=== PATIENT | male | born 1960 | race Caucasian/White ===

== ENCOUNTER 2016-06-16 04:48 | Observation (INO) | payer MEDICAID, SELFPAY ==
[~2016-06-16] VITALS: Ht 180.3 cm; Wt 92.1 kg
[~2016-06-16 04:48] MED LIST: /TAMS4CA PO; ACET-700 PO; ACET50TA PO; ADV250INH INH; ADV500INH INH; ALBU17IN2 INH; ALBU2TA PO; ANBEEL TOP; ASPI325T PO; ASPI32ECTA PO; ASPI81TA PO; ASPI81TA85 PO; ATOR1TAB19 PO; BACT800T5 PO; CARA1TAB2 PO; CELE20TA PO; CELE50CA PO; CLEO150C PO; CLEO300C2 PO; CYMB1CAP4 PO; CYMB60CA3 PO; DOCU100C PO; DOXY150C PO; DULO1CAP3 PO; EUCECRE2 EX; FLOM5CAP PO; HARVONI PO; HUMA100I SC; INSUDET SC; INSUH10VL SC; INSUHUMDS SC; INSULADS SC; INSULANT SC; LEVO500T PO; LIPI10TA PO; LIPI20TA PO; LISI10TA4 PO; LISI5TAB PO; LYRI225C PO; LYRI75CA PO; MECL25CH PO; MUPI2OI TOP; NEUR800T PO; NORCOTAB PO; OMEP20CA3 PO; OXYC20TA21 PO; PRIL20CA PO; PROA1AER IN; PROA1AER INH; PROT1TAB2 PO; PROTPAK PO; PSEU60TA PO; STOO100C PO; TAMS0.4C2 PO; TRAZ50TA4 PO; TRAZO50TA PO; VITA100041 PO; VITA100066 PO; VOLT1GEL24 TD; ZEST10TA4 PO; ZOFR20TA PO; ZOFR4TAB3 PO; prilosec PO
[2016-06-16 05:18] LABS: MEAN CORPUSCULAR HEMOGLOBIN 30.3 pg (27.0-33.0); MEAN CORPUSCULAR HGB CONC 33.9 g/dl (32.0-36.5); MEAN CORPUSCULAR VOLUME 89.1 fl (80.0-96.0); RED CELL DISTRIBUTION WIDTH 13.6 % (11.5-14.5)
[2016-06-16] MEDS ORDERED: MORPHINE 10 MG/ML 1ML VIAL As Ordered ONE (05:19)
[2016-06-16] MEDS ORDERED: ONDANSETRON 4MG/2ML VIAL (J2405) As Ordered ONE (05:28)
[2016-06-16 05:35] LABS: AMPHETAMINES LEVEL URINE NEGATIVE (NEGATIVE); BENZODIAZEPINES URINE NEGATIVE (NEGATIVE); COCAINE METABOLITE URINE NEGATIVE (NEGATIVE); CONTROL LINE INT CTR LINE PRESENT; METHADONE URINE NEGATIVE (NEGATIVE); OPIATES URINE NEGATIVE (NEGATIVE); TRICYCLIC ANTIDEPRESS URINE NEGATIVE (NEGATIVE)
[2016-06-16 05:47] LABS: ALBUMIN 3.9 GM/DL (3.2-5.2); ALBUMIN/GLOBULIN RATIO 1.11 (1.00-1.93); ALKALINE PHOSPHATASE 92 U/L (45-117); ALT/SGPT 35 U/L (12-78); ANION GAP 11 MEQ/L (8-16); AST/SGOT 19 U/L (15-37); BILIRUBIN,DIRECT 0.2 MG/DL (0.0-0.2); BILIRUBIN,TOTAL 0.3 MG/DL (0.2-1.0); BLOOD UREA NITROGEN 9 MG/DL (7-18); CALCIUM LEVEL 8.5 MG/DL (8.5-10.1); CARBON DIOXIDE LEVEL 25 MEQ/L (21-32); CHLORIDE LEVEL 107 MEQ/L (98-107); CREATININE FOR GFR 1.03 MG/DL (0.70-1.30); GLOMERULAR FILTRATION RATE > 60.0 (>56); GLUCOSE, FASTING 243 MG/DL (70-105); POTASSIUM SERUM 4.2 MEQ/L (3.5-5.1); SODIUM LEVEL 143 MEQ/L (136-145); TOTAL PROTEIN 7.4 GM/DL (6.4-8.2)
[2016-06-16] MEDS ORDERED: HALOPERIDOL 5 MG/ML VIAL (J1630) As Ordered ONE ×2 (06:25→06:48)
[2016-06-16] MEDS ORDERED: diphenhydrAMINE INJ 50MG/ML VIAL (J1200) As Ordered ONE ×2 (06:25→06:48)
[2016-06-16] MEDS ORDERED: ASPI1TAB PO (08:40)
[2016-06-16] MEDS ORDERED: ATOR1TAB19 PO (08:40)
[2016-06-16] MEDS ORDERED: TRAZ25TA PO (08:41)
[2016-06-16] MEDS ORDERED: INSUHUMDS SC (08:41)
[2016-06-16] MEDS ORDERED: OMEP20CA3 PO (08:42)
[2016-06-16] MEDS ORDERED: LANTINJ4 SC (08:44)
[2016-06-16] MEDS ORDERED: NS 1,000 ML IV SCH (09:07)
--- NOTE | 2016-06-16 09:37 | REP ---
Clinical: Altered mental status . Comparison: 11/13/2014 . Findings: The ventricles, sulci, and cisterns are normal in position and appearance. Garsia-white differentiation is maintained. 5 mm chronic right thalamic lacunar infarct is again identified. No acute intracranial hemorrhage, mass/mass effect, pathology or trauma/injury. No evidence for acute infarction. No extra-axial fluid collection. Calvarium is intact. Paranasal sinuses and mastoid air cells are clear. Impression: No evidence for acute intracranial pathology or trauma/injury. Signed by Reji Thornton MD 06/16/2016 09:29 A
[2016-06-16 09:49] LABS: VENOUS BASE EXCESS -4.5 (-2.0-2.0); VENOUS O2 SATURATION 98.6 % (60.0-80.0); VENOUS PARTIAL PRESSURE CO2 45.6 mmHg (38.0-50.0); VENOUS PARTIAL PRESSURE O2 142.8 mmHg (30.0-50.0); VENOUS STANDARD HCO3 20.8 MEQ/L; VENOUS TOTAL CO2 23.3 MEQ/L (24.0-28.0)
[2016-06-16 09:55] LABS: INR 1.09
[2016-06-16 10:00] VITALS: BP 118/61
--- NOTE | 2016-06-16 10:11 | ECGEPIP ---
Stationary ECG Study [facility] - ED Test Date: 2016-06-16 Pat Name: JUANA ROMEO Department: Room: - Gender: M Improvement Advisor: ottoniel : 1960 Requested By: DANI MCGARRY Order Number: [id number] Reading MD: Ina Shirley Measurements Intervals [place] Rate: 97 P: -5 MD: 175 QRS: -36 QRSD: 95 T: 42 QT: 338 QTc: 431 Interpretive Statements SINUS RHYTHM INFERIOR MYOCARDIAL INFARCTION, PROBABLY OLD NSTTW ABNORMALITY Electronically Signed On 06-16-2016 10:11:49 EST by Ina Shirley
--- NOTE | 2016-06-16 11:37 | EDDOCDS ---
Physician Documentation [facility] Name: German Diaz Age: 55 yrs Sex: Male : 1960 Arrival Date: 06/16/2016 Time: 04:48 Bed Admit Hold Private MD: Disposition: 06/16/16 08:49 Hospitalization ordered by Shine Joya for Inpatient Admission. Preliminary diagnosis are Suicide attempt, Poisoning by other antidepressants, intentional self-harm. - [facility] - Status is Inpatient Admission. ml6 - Condition is Stable. - Problem is new. - Symptoms have improved. Historical: - Allergies: Versed (hallucinations); - Home Meds: 1. Carafate 1 gram Oral tab 4 times per day 2. omeprazole 20 mg Oral cpDR 1 cap once daily 3. citalopram 20 mg Oral tab 1 tab once daily 4. Flomax 0.4 mg Oral cp24 1 cap once daily 5. Vitamin D Oral 1,000 unit daily 6. atorvastatin 10 mg oral tab 1 tab once daily 7. aspirin 81 mg Oral chew 8. lisinopril 10 mg Oral tab 1 tab once daily 9. Humalog 100 unit/mL Sub-Q crtg 100 unit/mL sliding scale before meals 10. Lantus 100 unit/mL Sub-Q soln 85 units twice a day 11. Lyrica 225mg Oral 2 times per day 12. Zofran (as hydrochloride) 4 mg Oral tab every 6 hours 13. OxyContin 20 mg Oral Tb12 1 tab every 12 hours - PMHx: Chronic Pain; Depression; Diabetes - IDDM: controlled; Hepatitis C; HTN; - PSHx: colonscopy; endocscopy; - Social history: Smoking status: unknown if patient ever smoked tobacco. No barriers to communication noted, The patient speaks fluent Latvian. - Family history: Not pertinent. - : The pt / caregiver states he / she is not on anticoagulants. Home medication list is obtained from family members. - Exposure Risk Screening:: None identified. Vital Signs: 06/16 04:49 BP 161 / 115 (auto/); af2 04:51 BP 161 / 115; Pulse 120; Resp 20; Pulse Ox 96% on R/A; Weight 88.45 kg / 195 lbs (R); emilia Height 5 ft. 11 in. (180.34 cm) (R); 04:51 Pulse 120 MON; Pulse Ox 96% ; af2 05:15 BP 105 / 74 (auto/); af2 05:15 Pulse 101 MON; Pulse Ox 97% ; af2 05:30 BP 112 / 77 (auto/); af2 05:31 Pulse 100 MON; Resp 18 S; Pulse Ox 98% on R/A; af2 05:41 Pulse 99 MON; Pulse Ox 96% ; af2 05:45 BP 141 / 86 (auto/); af2 06:00 BP 165 / 90 (auto/); af2 06:01 Pulse 116 MON; Resp 18 S; Pulse Ox 96% on R/A; af2 06:15 BP 144 / 95 (auto/); af2 06:15 Pulse 103 MON; Pulse Ox 97% ; af2 06:30 BP 131 / 78 (auto/); af2 06:31 Pulse 100 MON; Resp 20 S; Pulse Ox 96% on R/A; af2 07:03 BP 128 / 83 (auto/); af2 07:04 Pulse 101 MON; Resp 20 S; Temp 97.7(T); Pulse Ox 95% on R/A; af2 07:18 BP 112 / 64 (auto/); ml6 07:18 Pulse 103 MON; ml6 07:33 BP 103 / 58 (auto/); ml6 07:33 Pulse 95 MON; Resp 16; Pulse Ox 98% on R/A; Pain 0/10; ml6 07:48 BP 74 / 52 (auto/); ml6 07:48 Pulse 87 MON; Resp 16; Pulse Ox 76% on R/A; ml6 07:49 BP 74 / 50 (auto/); ml6 07:49 Pulse 87 MON; Resp 18; Pulse Ox 98% on 4 lpm NC; ml6 07:50 BP 78 / 53 (auto/); ml6 07:50 Pulse 86 MON; Resp 16; Pulse Ox 98% on 4 lpm NC; ml6 07:56 BP 74 / 54 (auto/); ml6 07:56 Pulse 88 MON; Resp 18; Pulse Ox 96% on 4 lpm NC; Pain 0/10; ml6 08:00 BP 112 / 58 (auto/); ml6 08:00 Pulse 90 MON; Resp 18; Pulse Ox 99% on 4 lpm NC; Pain 0/10; ml6 08:03 BP 106 / 57 (auto/); ml6 08:03 Pulse 92 MON; Resp 18; Pulse Ox 99% on 2 lpm NC; Pain 0/10; ml6 08:18 BP 118 / 64 (auto/); ml6 08:18 Pulse 101 MON; Resp 18; Pulse Ox 98% on 2 lpm NC; ml6 08:33 BP 118 / 65 (auto/); ml6 08:33 Pulse 103 MON; Resp 18; Pulse Ox 98% on 2 lpm NC; ml6 08:48 BP 99 / 63 (auto/); ml6 08:48 Pulse 97 MON; Resp 16; Temp 97.6(T); Pulse Ox 98% on 2 lpm NC; Pain 0/10; ml6 09:03 BP 98 / 61 (auto/); ml6 09:03 Pulse 93 MON; Resp 16; Pulse Ox 96% on 4 lpm NC; Pain 0/10; ml6 09:38 BP 114 / 63 (auto/); ml6 09:38 Pulse 90 MON; Resp 16; Pulse Ox 97% on 4 lpm NC; ml6 09:47 BP 118 / 61 (auto/); ml6 09:47 Pulse 93 MON; Resp 16; Pulse Ox 98% on 4 lpm NC; ml6 10:02 BP 92 / 58 (auto/); ml6 10:02 Pulse 97 MON; Resp 16; Pulse Ox 97% on 4 lpm NC; ml6 10:18 BP 97 / 64 (auto/); ml6 10:18 Pulse 98 MON; Resp 18; Pulse Ox 98% on 4 lpm NC; Pain 0/10; ml6 10:32 BP 107 / 70 (auto/); ml6 10:32 Pulse 91 MON; Resp 18; Temp 98.4(O); Pulse Ox 98% on 4 lpm NC; Pain 0/10; ml6 10:47 BP 125 / 69 (auto/); ml6 10:47 Pulse 92 MON; Resp 18; Pulse Ox 97% on 4 lpm NC; Pain 0/10; ml6 11:02 BP 156 / 67 (auto/); ml6 11:02 Pulse 88 MON; Resp 16; Pulse Ox 98% on 4 lpm NC; Pain 0/10; ml6 11:18 BP 135 / 88 (auto/); ml6 11:18 Pulse 90 MON; Resp 18; Pulse Ox 98% on 4 lpm NC; ml6 11:32 BP 134 / 70 (auto/); ml6 11:32 Pulse 107 MON; Resp 18; Temp 98.3(O); Pulse Ox 97% on 4 lpm NC; Pain 0/10; ml6 04:51 Body Mass Index 27.20 (88.45 kg, 180.34 cm) emilia MDM: 05:00 Consult PFS/PSA/Court Bailiff ordered. cs11 05:00 Consult PFS/PSA/Court Bailiff: Patient's case requires discussion with on-call cs11 Psychiatrist ordered. 05:00 PSA/PFS to call Nursing Outdoor Studies Director, to enter patient data on [place] Safe Act if patient cs11 involuntarily admitted or transferred for SI or HI ordered. 05:00 Territory Account Representative/Pulse Ox/q 15 min VS ordered. cs11 05:00 Confirm accurate psychiatric medication list and times of last dosage ordered. cs11 05:00 Detain Pt Until Medically/PFS Cleared ordered. cs11 05:00 IV Saline Lock ordered. cs11 05:01 NS 0.9% 1000 ml IV at bolus once ordered. cs11 05:01 Acetaminophen Level Ordered. EDMS 05:01 Basic Metabolic Profile Ordered. EDMS 05:01 Complete Blood Count Ordered. EDMS 05:01 Drug Eval Toxicology ED Only Ordered. EDMS 05:01 Ethyl Alcohol (ethanol) Ordered. EDMS 05:01 Liver Profile Ordered. EDMS 05:01 Salicylate Level Ordered. EDMS 05:01 Thyroid Stimulating Hormone Ordered. EDMS 05:02 ECG WITH READING ER PHYS+CARDIAG ordered. EDMS 05:17 morphine 5 mg IVP once ordered. cs11 05:22 Ondansetron 4 mg IVP once ordered. cs11 05:39 Complete Blood Count Reviewed. cs11 05:39 Drug Eval Toxicology ED Only Reviewed. cs11 05:49 Acetaminophen Level Reviewed. cs11 05:49 Basic Metabolic Profile Reviewed. cs11 05:49 Ethyl Alcohol (ethanol) Reviewed. cs11 05:49 Thyroid Stimulating Hormone Reviewed. cs11 05:49 Liver Profile Reviewed. cs11 05:49 Salicylate Level Reviewed. cs11 06:22 Haloperidol 5 mg IVP once ordered. cs11 06:22 diphenhydrAMINE 25 mg IVP once ordered. cs11 06:47 Haloperidol 2.5 mg IVP once ordered. cs11 06:47 diphenhydrAMINE 25 mg IVP once ordered. cs11 06:57 Restraints, Adult: Mechanical - 4 points up to 1 hr (poses imminent danger of cs11 self-harm). May use manual restraints to secure restraint devices. Pt. monitoring per RN policy. ordered. 07:51 NS 0.9% 1000 ml IV at bolus once ordered. fg 08:11 Financial registration complete. lg 08:23 BED REQUEST+ADM ordered. EDMS 08:24 Salicylate Level: draw at 9am Ordered. EDMS 08:24 Acetaminophen Level: draw at 9am Ordered. EDMS 08:24 ETOH: Draw at 9am Ordered. EDMS 08:24 [facility] Payment Agreement was scanned into [employer] and attached to record. lg 09:02 Written Provider Order was scanned into [employer]UM[employer] and attached to record. deg 09:05 ECG WITH READING ER PHYS ordered. EDMS 09:12 Admission / Observation Status ordered. EDMS 09:12 CT Head without contrast Ordered. EDMS 09:12 NPO DIET ordered. EDMS 09:13 CARDIAC INJURY PROFILE Ordered. EDMS 09:13 CARDIAC INJURY PROFILE Ordered. EDMS 09:13 TROPONIN Ordered. EDMS 09:13 TROPONIN Ordered. EDMS 09:13 PROTHROMBIN TIME PROFILE\E\INR Ordered. EDMS 09:13 LACTIC ACID LEVEL, LACTATE Ordered. EDMS 09:13 VENOUS BLOOD GAS Ordered. EDMS 11:08 SALICYLATE LEVEL Ordered. EDMS 11:08 SALICYLATE LEVEL Ordered. EDMS 11:08 SALICYLATE LEVEL Ordered. EDMS 11:08 SALICYLATE LEVEL Ordered. EDMS 11:09 SALICYLATE LEVEL Ordered. EDMS 11:09 SALICYLATE LEVEL Ordered. EDMS 11:09 SALICYLATE LEVEL Ordered. EDMS Administered Medications: 05:07 Drug: NS 0.9% 1000 ml [sodium chloride 0.9 % intravenous solution] Route: IV; Rate: af2 bolus; Site: left wrist; 07:04 Follow up: IV Status: Completed infusion; IV Intake: 1000ml ml6 05:22 CANCELLED (Other Intervention Used): Ondansetron 8 mg IVP once cs11 05:26 Drug: morphine 5 mg [morphine 10 mg/mL injection solution (0.5 mL)] Route: IVP; Site: af2 left wrist; 05:30 Drug: Ondansetron 4 mg [ondansetron HCl 2 mg/mL intravenous solution (2 mL)] Route: af2 IVP; Site: left wrist; 06:30 Drug: Haloperidol 5 mg [haloperidol lactate 5 mg/mL injection solution (1 mL)] Route: af2 IVP; Site: left antecubital; 06:30 Drug: diphenhydrAMINE 25 mg [diphenhydramine 50 mg/mL injection solution (0.5 mL)] af2 Route: IVP; Site: right hand; 06:50 Drug: Haloperidol 2.5 mg [haloperidol lactate 5 mg/mL injection solution (0.5 mL)] af2 Route: IVP; Site: left antecubital; 06:50 Drug: diphenhydrAMINE 25 mg [diphenhydramine 50 mg/mL injection solution (0.5 mL)] af2 Route: IVP; Site: left antecubital; 07:56 Drug: NS 0.9% 1000 ml [sodium chloride 0.9 % intravenous solution] Route: IV; Rate: ml6 bolus; Site: left antecubital; 08:45 Follow up: IV Status: Completed infusion; Infusion discontinued; IV Intake: 1000ml ml6 Signatures: Dispatcher [employer] EDMS Peggy Acuña, Assistant Manager [employer] deg Lui mAbrose, Julian Olivarez lg, [place] RN ml6 Anton Kelly DO DO cs11 Brenda Perez RN RN af2 Amanda Richards MD MD fg Gosselin, Lisa, RN RN lmg The chart was reviewed and I authenticate all verbal orders and agree with the evaluation and treatment provided.Corrections: (The following items were deleted from the chart) 05:22 05:21 Ondansetron 8 mg IVP once ordered. cs11 cs11 08:25 05:53 [facility] [employer] Server Order ordered. cs11 ml6 Attachments: 08:24 [facility] Payment Agreement lg 09:02 Written Provider Order deg MTDD
--- NOTE | 2016-06-16 11:37 | EDDOCDS ---
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 Discharge criteria are identified: None. Admitted to PCU ml6 accompanied by nurse, accompanied by tech, via stretcher, on monitor, with chart. Condition: stable. Property :Personal belongings accompany Pt. 11:37 Patient left the ED. ml6 Signatures: Dispatcher [employer] EDPeggy Stiles, Tree Worker Unit deg Lui Ambrose, Reg Reg lg Julian Elise, RN RN ml6 Clau York, COOK APPRENTICE COOK APPRENTICE Ana Cristina Thompson, RN RN sls1 Dani Mcgarry, DO cs11 Ezra, Danyell, COOK APPRENTICE COOK APPRENTICE tmm1 Brenda Perez,RN RN af2 Amanda Richards MD MD fg Chris Roberts, COOK APPRENTICE COOK APPRENTICE jmv MTDD
[2016-06-16 12:00] VITALS: BP 126/68
[2016-06-16] MEDS ORDERED: HumaLOG INSULIN (NovoLOG) PER UNIT SC SCH ×2 (12:00→18:00)
[2016-06-16] MEDS: PANTOPRAZOLE 40MG INJ (PROTONIX) (C9113) IV SCH (12:50)
[2016-06-16 13:14] LABS: VENOUS BASE EXCESS -5.7 (-2.0-2.0); VENOUS O2 SATURATION 82.8 % (60.0-80.0); VENOUS PARTIAL PRESSURE CO2 39.9 mmHg (38.0-50.0); VENOUS PARTIAL PRESSURE O2 54.3 mmHg (30.0-50.0); VENOUS STANDARD HCO3 19.5 MEQ/L; VENOUS TOTAL CO2 21.2 MEQ/L (24.0-28.0)
[2016-06-16 13:22] LABS: ALBUMIN 3.2 GM/DL (3.2-5.2); ALBUMIN/GLOBULIN RATIO 1.19 (1.00-1.93); ALKALINE PHOSPHATASE 75 U/L (45-117); ALT/SGPT 25 U/L (12-78); ANION GAP 7 MEQ/L (8-16); AST/SGOT 14 U/L (15-37); BILIRUBIN,TOTAL 0.1 MG/DL (0.2-1.0); BLOOD UREA NITROGEN 8 MG/DL (7-18); CALCIUM LEVEL 7.6 MG/DL (8.5-10.1); CARBON DIOXIDE LEVEL 26 MEQ/L (21-32); CHLORIDE LEVEL 113 MEQ/L (98-107); CREATININE FOR GFR 0.78 MG/DL (0.70-1.30); GLOMERULAR FILTRATION RATE > 60.0 (>56); GLUCOSE, FASTING 165 MG/DL (70-105); POTASSIUM SERUM 4.3 MEQ/L (3.5-5.1); SODIUM LEVEL 146 MEQ/L (136-145); TOTAL PROTEIN 5.9 GM/DL (6.4-8.2)
[2016-06-16] MEDS ORDERED: DEXTROSE 50% 50 ML SYRINGE IV PRN (13:30)
[2016-06-16] MEDS ORDERED: ALBUTEROL SULFATE 2.5 MG/0.5 ML INH NEB SOLN INH PRN (13:30)
[2016-06-16] MEDS ORDERED: GLUCOSE 4 GM CHEW TABLET PO PRN (13:30)
[2016-06-16] MEDS ORDERED: GLUCAGON FOR INJ 1 MG VIAL (J1610) SC PRN (13:30)
--- NOTE | 2016-06-16 13:47 | HPEPDOC ---
Medical History and Physical Date of Admission Jun 16, 2016 at 09:07 History and Physical PRIMARY CARE PROVIDER: ATTENDING: Shine Joya MD CHIEF COMPLAINT: Overdose HISTORY OF PRESENT ILLNESS: This is a 55-year-old male past history of insulin-dependent diabetes, hypertension, CVA, diabetes neuropathy, COPD, history of MRSA, BPH, GERD, hepatitis C, prior suicide attempts who presents with suicide attempt overdose. Attempted to call the multiple times however was unsuccessful. The only history I have is what I was provided by the ED physician. Apparently the patient been drinking last night, and had suicidal ideations, taking multiple pills of multiple medications including lisinopril, tamsulosin, omeprazole, vitamin D, atorvastatin, Carafate, aspirin, citalopram. There was concern for possible developing serotonin syndrome. The patient was placed under observation. The ED physician had also stated that the called back and stated that the patient taking multiple pills of aspirin. His salicylate level was initially 10, repeat 26, and finally greater than 30. I spoke to the poison control recommended bicarbonate drip. The patient has no focal deficits. Overnight the patient was very aggressive towards staff and received 2 doses of Haldol. PAST MEDICAL HISTORY: As per HPI PAST SURGICAL HISTORY: Upper and lower teeth extraction, tonsillectomy, liver biopsy in 2007. FAMILY HISTORY: Mother with [place], father with CVA SOCIAL HISTORY: Chronic alcohol use, no illicit drug use, history of tobacco abuse. Lives with . ALLERGIES: See below REVIEW OF SYSTEMS: Unable to obtain at this time. HOME MEDICATIONS: Please see below. PHYSICAL EXAMINATION: Vitals: (see below) General: No acute distress, laying comfortably in bed. HEENT: Moist mucous membranes. Neck: No JVD or lymphadenopathy Cardiac: RRR, No murmurs Pulm: Clear to auscultation b/l. No wheezing, rhonchi Abd: NT/ND + BS Ext: No edema or cyanosis Following commands. Moving all extremities. GCS 13. No focal deficits. Pupils 2 mm equal and reactive to light. DTRs 1+ throughout. Babinski negative. LABORATORY DATA: See below. IMAGING: CT head on 06/16/2016 negative for acute pathology. MICROBIOLOGY: Please see below. ASSESSMENT/PLAN: 1. Overdose suicide attempt- appears the patient's had prior suicide attempts in the past. Apparently becomes suicidal when he is drunk. A attempted to call family however was unsuccessful. Per ED physician the patient had overdosed on lisinopril, tamsulosin, omeprazole, vitamin D, atorvastatin, Carafate, aspirin, citalopram. The patient's QTc is within normal limits. He is following commands and moving all extremities however is lethargic. The patient was very aggressive overnight and had received Haldol. We will withhold any additional Haldol as it can prolong QTC. In addition his salicylate level was elevated, now greater than 30. I have spoken to poison control, who recommended starting the patient on a bicarbonate drip. His lactic acid is 1.5. His creatinine is 1.05, and his last pH was 7.3. Have also spoken to Dr. Horvath, recommended starting half normal saline bicarbonate drip 75 mEq at 100 mL per hour. We will have serial labs as well. Activated charcoal. NG with no pills suctioned. Poison control also recommended repeating salicylate level every 2 hours until it peaks and then every 4 hours after that. We will also obtain serial EKGs. Neuro checks. One-to-one observation. Will need a psychiatric consultation once his mentation is improved. 2. Insulin-dependent diabetes- sliding-scale insulin 3. History of CVA- we'll hold home medications at this time given overdose 4. History of COPD - nebulized therapy 5. H/o Hep C 6. H/o MRSA 7. H/o GERD 8. H/o BPH 9. Low thyroid level - will need this repeated outpt. DVT prophy - SCDs. We'll need more history once we are able to contact the family and when the patient is more awake and alert. Update: Spoke with (Jennifer) who stated that the patient took 5 days worth of the above medications, as well as 40-50 tab of ASA 325mg around 4am today stating he does not want to live anymore. Salicylate level celeste to 36, Cr 0.86, K 4.0, VBG with pH 7.39, urine ph 6.0. Spoke with Dr. Fairchild, and we will change IVF to D5W Bicarb 150meq at 100cc/ hr. Cont to monitor BMP, Salicylate level, urine pH, vbg. Jennifer Diaz Home phone: [phone] Cell phone : [phone] Patient is followed by Dr. Kraus on 06/17/2016 at 7 AM. Vital Signs BP 99/63, HR 92, RR 16, O2 sat 98%, 2L NC Laboratory Data Labs 24H Laboratory Tests 2 06/16/16 04:59: Acetaminophen Level < 2.0L, Aspartate Amino Transf (AST/SGOT) 19, Alanine Aminotransferase (ALT/SGPT) 35, Alkaline Phosphatase 92, Total Bilirubin 0.3, Direct Bilirubin 0.2, Albumin 3.9, Albumin/Globulin Ratio 1.11, Anion Gap 11, Calcium Level 8.5, Ethyl Alcohol Level 0.280H, Glomerular Filtration Rate > 60.0 , Salicylates Level 10.2, Thyroid Stimulating Hormone (TSH) 0.187L, Total Protein 7.4 06/16/16 05:17: Urine Amphetamine Level NEGATIVE, Urine Benzodiazepines Screen NEGATIVE, Urine Cannabinoids NEGATIVE, Urine Cocaine Metabolite NEGATIVE, Urine Opiates Screen NEGATIVE, Urine Barbiturates, Qualitative NEGATIVE, Urine Methadone Screen NEGATIVE, Urine Tricyclic Antidepressants NEGATIVE 06/16/16 09:36: Blood Gas Bicarbonate Standard 20.8, Creatine Kinase MB 1.3, Creatine Kinase MB Relative Index 1.68, Lactic Acid Level 1.5, Total Creatine Kinase 77, Troponin I < 0.02, Venous Blood Base Excess -4.5L, Venous Blood pH 7.300L, Venous Blood Partial Pressure CO2 45.6, Venous Blood Partial Pressure O2 142.8H, Venous Blood Total Carbon Dioxide 23.3L, Venous Blood HCO3 21.9L, Venous Blood Oxygen Saturation 98.6H 06/16/16 09:37: Acetaminophen Level < 2.0L, Ethyl Alcohol Level 0.255H, Salicylates Level 26.5 06/16/16 09:41: Prothromb Time International Ratio 1.09, Prothrombin Time 14.2 06/16/16 12:00: Salicylates Level 31.7H 06/16/16 12:06: 06/16/16 12:10: CBC/BMP Laboratory Tests 06/16/16 04:59 Red Blood Count 5.23, Mean Corpuscular Volume 89.1, Mean Corpuscular Hemoglobin 30.3, Mean Corpuscular Hemoglobin Concent 33.9, Red Cell Distribution Width 13.6 Home Medications Scheduled Aspirin (Aspirin 81) 81 Mg Tab 81 MG PO DAILY Atorvastatin Calcium (Atorvastatin Calcium) 10 Mg Tab 10 MG PO QHS Cholecalciferol (Vitamin D) 1,000 Unit Tab 1,000 UNIT PO DAILY Citalopram Hydrobromide (Celexa) 20 Mg Tab 20 MG PO DAILY Insulin Glargine (Lantus Solostar) 100 Unit/Ml Inj 50 UNITS SC BID Insulin Human Lispro (Humalog) 1 Units/0.01 Ml Inj 1 DOSE SC ACHS Lisinopril (Lisinopril) 10 Mg Tab 10 MG PO DAILY Omeprazole (Omeprazole) 20 Mg Cap 20 MG PO DAILY Oxycodone HCl (Oxycontin) 20 Mg Tab 20 MG PO Q12H Pregabalin (Lyrica) 225 Mg Cap 225 MG PO BID Tamsulosin Hydrochloride (Flomax) 0.4 Mg Cap 0.4 MG PO QPM Trazodone HCl (Trazodone HCl) 50 Mg Tab 50 MG PO QHS Allergies Coded Allergies: Diazepam (Verified Allergy, Unknown, 11/01/13) TAPE (Verified Allergy, Unknown, 12/02/13) Midazolam (Verified Adverse Reaction, Intermediate, "GO CRAZY", 02/15/13) SHINE JOYA MD Jun 16, 2016 13:47
[2016-06-16 14:00] VITALS: BP 138/62
[2016-06-16] MEDS ORDERED: SODIUM BICARBONATE 75 MEQ in NS 0.45% 1,000 ML IV SCH (14:00)
[2016-06-16] MEDS: IPRATROPIUM 0.5MG/ALBUTEROL 2.5MG INH SOL UD 3ML (DUONEB)(J7620) NEB SCH ×2 (15:22→20:00)
--- NOTE | 2016-06-16 16:37 | ECGEPIP ---
Stationary ECG Study [facility] Test Date: 2016-06-16 Pat Name: JUANA ROMEO Department: Room: [place] [address] Gender: M Html Developer: YOHANA : 1960 Requested By: ECTOR DOVE Order Number: [id number] Reading MD: Honorio Cantu Measurements Intervals Lucan Rate: 97 P: 20 MA: 169 QRS: -35 QRSD: 94 T: 45 QT: 350 QTc: 445 Interpretive Statements SINUS RHYTHM POSSIBLE INFERIOR MYOCARDIAL INFARCTION, OF INDETERMINATE AGE LAST TRACING ON 06/16/2016 AT 5:25:30, NO SIGNIFICANT CHANGES Electronically Signed On 06-16-2016 16:36:37 EST by Honorio Cantu
[2016-06-16 17:38] LABS: VENOUS BASE EXCESS -1.3 (-2.0-2.0); VENOUS O2 SATURATION 85.9 % (60.0-80.0); VENOUS PARTIAL PRESSURE CO2 38.7 mmHg (38.0-50.0); VENOUS PARTIAL PRESSURE O2 51.5 mmHg (30.0-50.0); VENOUS STANDARD HCO3 23.1 MEQ/L; VENOUS TOTAL CO2 24.5 MEQ/L (24.0-28.0)
[2016-06-16 17:41] LABS: MEAN CORPUSCULAR HEMOGLOBIN 31.4 pg (27.0-33.0); MEAN CORPUSCULAR HGB CONC 34.3 g/dl (32.0-36.5); MEAN CORPUSCULAR VOLUME 91.4 fl (80.0-96.0); RED CELL DISTRIBUTION WIDTH 13.7 % (11.5-14.5); WHITE BLOOD COUNT 6.9 K/mm3 (4.0-10.0)
[2016-06-16] MEDS ORDERED: CHARCOAL ACTIVATED LIQUID 25 GM/120 ML BTL PO SCH (18:00)
[2016-06-16 18:52] LABS: ALBUMIN 3.3 GM/DL (3.2-5.2); ALBUMIN/GLOBULIN RATIO 1.14 (1.00-1.93); ALKALINE PHOSPHATASE 76 U/L (45-117); ALT/SGPT 26 U/L (12-78); ANION GAP 11 MEQ/L (8-16); AST/SGOT 16 U/L (15-37); BILIRUBIN,TOTAL 0.1 MG/DL (0.2-1.0); BLOOD UREA NITROGEN 10 MG/DL (7-18); CALCIUM LEVEL 7.6 MG/DL (8.5-10.1); CARBON DIOXIDE LEVEL 23 MEQ/L (21-32); CHLORIDE LEVEL 112 MEQ/L (98-107); CREATININE FOR GFR 0.86 MG/DL (0.70-1.30); GLOMERULAR FILTRATION RATE > 60.0 (>56); GLUCOSE, FASTING 193 MG/DL (70-105); SODIUM LEVEL 146 MEQ/L (136-145); TOTAL PROTEIN 6.2 GM/DL (6.4-8.2)
[2016-06-16 19:45] LABS: VENOUS O2 SATURATION 59.4 % (60.0-80.0); VENOUS PARTIAL PRESSURE CO2 35.8 mmHg (38.0-50.0); VENOUS PARTIAL PRESSURE O2 30.3 mmHg (30.0-50.0); VENOUS STANDARD HCO3 22.8 MEQ/L
[2016-06-16 20:10] LABS: ANION GAP 7 MEQ/L (8-16); BLOOD UREA NITROGEN 10 MG/DL (7-18); CALCIUM LEVEL 7.8 MG/DL (8.5-10.1); CARBON DIOXIDE LEVEL 26 MEQ/L (21-32); CHLORIDE LEVEL 111 MEQ/L (98-107); CREATININE FOR GFR 0.97 MG/DL (0.70-1.30); GLOMERULAR FILTRATION RATE > 60.0 (>56); GLUCOSE, FASTING 220 MG/DL (70-105); POTASSIUM SERUM 4.3 MEQ/L (3.5-5.1); SODIUM LEVEL 144 MEQ/L (136-145)
[2016-06-16 20:15] VITALS: BP 108/58
[2016-06-16] MEDS ORDERED: CALCIUM GLUCONATE 1,000 MG in D5W MINI-BAG PLUS 100 ML IV ONE (20:30)
[2016-06-16] MEDS: SODIUM BICARBONATE 150 MEQ in D5W 1,000 ML IV SCH (20:51)
--- NOTE | 2016-06-16 21:21 | REP ---
Clinical: Salicylate poisoning . Comparison: 09/30/2015 . Findings: The mediastinum and cardiac silhouette are stable and within normal limits for portable technique. The lung lezama are clear without acute consolidation, effusion, or pneumothorax. Skeletal structures are intact. Impression: Normal portable chest x-ray Signed by Reji Thornton MD 06/16/2016 09:13 P
[2016-06-16 22:07] LABS: VENOUS BASE EXCESS -0.2 (-2.0-2.0); VENOUS O2 SATURATION 74.5 % (60.0-80.0); VENOUS PARTIAL PRESSURE O2 39.7 mmHg (30.0-50.0); VENOUS STANDARD HCO3 23.8 MEQ/L; VENOUS TOTAL CO2 26.1 MEQ/L (24.0-28.0)
[2016-06-16 22:15] LABS: ANION GAP 9 MEQ/L (8-16); BLOOD UREA NITROGEN 10 MG/DL (7-18); CALCIUM LEVEL 7.9 MG/DL (8.5-10.1); CARBON DIOXIDE LEVEL 25 MEQ/L (21-32); CHLORIDE LEVEL 110 MEQ/L (98-107); CREATININE FOR GFR 0.98 MG/DL (0.70-1.30); GLOMERULAR FILTRATION RATE > 60.0 (>56); GLUCOSE, FASTING 232 MG/DL (70-105); POTASSIUM SERUM 3.9 MEQ/L (3.5-5.1); SODIUM LEVEL 144 MEQ/L (136-145)
[2016-06-16] MEDS: CHARCOAL ACTIVATED LIQUID 25 GM/120 ML BTL PO SCH (23:30)
[2016-06-16 23:37] LABS: VENOUS BASE EXCESS -0.2 (-2.0-2.0); VENOUS O2 SATURATION 87.6 % (60.0-80.0); VENOUS PARTIAL PRESSURE O2 53.2 mmHg (30.0-50.0); VENOUS STANDARD HCO3 24.1 MEQ/L; VENOUS TOTAL CO2 25.7 MEQ/L (24.0-28.0)
[2016-06-16 23:55] LABS: ANION GAP 9 MEQ/L (8-16); BLOOD UREA NITROGEN 10 MG/DL (7-18); CARBON DIOXIDE LEVEL 26 MEQ/L (21-32); CHLORIDE LEVEL 109 MEQ/L (98-107); CREATININE FOR GFR 0.94 MG/DL (0.70-1.30); GLOMERULAR FILTRATION RATE > 60.0 (>56); GLUCOSE, FASTING 202 MG/DL (70-105); POTASSIUM SERUM 3.9 MEQ/L (3.5-5.1); SODIUM LEVEL 144 MEQ/L (136-145)
[2016-06-16] MEDS: HumaLOG INSULIN (NovoLOG) PER UNIT SC SCH (23:57)
[2016-06-17] VITALS (7 sets, daily range): BP systolic 110–157; BP diastolic 61–85
[2016-06-17] MEDS: IPRATROPIUM 0.5MG/ALBUTEROL 2.5MG INH SOL UD 3ML (DUONEB)(J7620) NEB SCH ×6 (00:15→20:00)
[2016-06-17 01:58] LABS: VENOUS O2 SATURATION 70.5 % (60.0-80.0); VENOUS PARTIAL PRESSURE CO2 37.4 mmHg (38.0-50.0); VENOUS PARTIAL PRESSURE O2 34.2 mmHg (30.0-50.0); VENOUS STANDARD HCO3 24.7 MEQ/L
[2016-06-17] MEDS: CHARCOAL ACTIVATED LIQUID 25 GM/120 ML BTL PO SCH ×3 (02:00→09:25)
[2016-06-17 02:27] LABS: ANION GAP 11 MEQ/L (8-16); BLOOD UREA NITROGEN 10 MG/DL (7-18); CALCIUM LEVEL 7.7 MG/DL (8.5-10.1); CARBON DIOXIDE LEVEL 25 MEQ/L (21-32); CHLORIDE LEVEL 108 MEQ/L (98-107); GLOMERULAR FILTRATION RATE > 60.0 (>56); GLUCOSE, FASTING 244 MG/DL (70-105); POTASSIUM SERUM 3.5 MEQ/L (3.5-5.1); SODIUM LEVEL 144 MEQ/L (136-145)
[2016-06-17 03:54] LABS: VENOUS BASE EXCESS 0.6 (-2.0-2.0); VENOUS O2 SATURATION 91.8 % (60.0-80.0); VENOUS PARTIAL PRESSURE CO2 39.9 mmHg (38.0-50.0); VENOUS PARTIAL PRESSURE O2 63.5 mmHg (30.0-50.0); VENOUS STANDARD HCO3 24.9 MEQ/L; VENOUS TOTAL CO2 26.3 MEQ/L (24.0-28.0)
[2016-06-17 04:22] LABS: ANION GAP 9 MEQ/L (8-16); BLOOD UREA NITROGEN 9 MG/DL (7-18); CARBON DIOXIDE LEVEL 26 MEQ/L (21-32); CHLORIDE LEVEL 108 MEQ/L (98-107); CREATININE FOR GFR 1.17 MG/DL (0.70-1.30); GLOMERULAR FILTRATION RATE > 60.0 (>56); GLUCOSE, FASTING 218 MG/DL (70-105); POTASSIUM SERUM 3.6 MEQ/L (3.5-5.1); SODIUM LEVEL 143 MEQ/L (136-145)
[2016-06-17] MEDS: ANALGESIC BALM CRM 120 GM TOP PRN ×2 (04:54→20:37)
[2016-06-17] MEDS ORDERED: POTASSIUM CHLORIDE 10 MEQ SR TABLET PO ONE ×2 (05:00→13:30)
[2016-06-17] MEDS ORDERED: LIDOCAINE 5% (LIDODERM) PATCH TD ONE (05:00)
[2016-06-17 05:54] LABS: ANION GAP 9 MEQ/L (8-16); BLOOD UREA NITROGEN 8 MG/DL (7-18); CALCIUM LEVEL 8.2 MG/DL (8.5-10.1); CARBON DIOXIDE LEVEL 27 MEQ/L (21-32); CHLORIDE LEVEL 106 MEQ/L (98-107); CREATININE FOR GFR 1.15 MG/DL (0.70-1.30); GLOMERULAR FILTRATION RATE > 60.0 (>56); GLUCOSE, FASTING 191 MG/DL (70-105); POTASSIUM SERUM 3.4 MEQ/L (3.5-5.1); SODIUM LEVEL 142 MEQ/L (136-145)
[2016-06-17] MEDS: HumaLOG INSULIN (NovoLOG) PER UNIT SC SCH ×3 (06:29→17:22)
[2016-06-17] MEDS: SODIUM BICARBONATE 150 MEQ in D5W 1,000 ML IV SCH (07:30)
[2016-06-17] MEDS: NICOTINE 14 MG/24 HR TRANSDERMAL TD SCH (09:26)
[2016-06-17] MEDS: oxyCODONE 20 MG CR TAB PO SCH ×2 (09:26→20:36)
[2016-06-17 10:06] LABS: ANION GAP 12 MEQ/L (8-16); BLOOD UREA NITROGEN 9 MG/DL (7-18); CALCIUM LEVEL 8.3 MG/DL (8.5-10.1); CARBON DIOXIDE LEVEL 26 MEQ/L (21-32); CHLORIDE LEVEL 107 MEQ/L (98-107); CREATININE FOR GFR 1.08 MG/DL (0.70-1.30); GLOMERULAR FILTRATION RATE > 60.0 (>56); GLUCOSE, FASTING 206 MG/DL (70-105); POTASSIUM SERUM 3.4 MEQ/L (3.5-5.1); SODIUM LEVEL 145 MEQ/L (136-145)
[2016-06-17 10:11] LABS: INR 1.15
[2016-06-17] MEDS: PANTOPRAZOLE 40MG INJ (PROTONIX) (C9113) IV SCH (12:49)
--- NOTE | 2016-06-17 13:39 | IPNPDOC ---
Text Note Date of Service The patient was seen on 06/17/16 at 13:28. NOTE Subjective: Patient is a 55 year old male with a PMHx of IDDM2, HTN, CVA, Diabetic neuropathy, COPD, Hx of MRSA, BPH, GERD, Hepatitis C, Hx of prior suicidial attempts who presented to the ER with a suicidal attempt by overdose. Patient had consumed multiple pills of lisinopril, tamsulosin, omeprazole, vitamin D, atorvastatin, Carafate, aspirin, citalopram. Poison control was contacted, advised to follow salicyclate level and trend every 2 hours. Advised to start bicarbonate drip. Patient was seen and examined at the bedside. Clinically he is AAOx3, he is mainly complaining of back pain that has been a chronic issue. Objective: Vitals (See below) General: Sitting up in bed, complaining of back pain, AAOx3 HEENT: NC, AT CVS: RRR, +S1S2 Lungs: Fair air entry b/l, - W/R/R Abdomen: Soft, ND, NT, +BSx4 Extremities: +PPx4, - Edema, - Calf tenderness Assessment and plan: 1. Overdose / Suicidal attempt - - multiple episodes of suicidal attempts while he is drunk - Overdosed on lisinopril, tamsulosin, omeprazole, vitamin D, atorvastatin, Carafate, aspirin, citalopram - Cased discussed with Poison control today; advised that further salicylate levels are no longer required; if AMS has resolved and EKG has no changes than no further workup is required - Will discontinue bicarbonate drip and activated charcoal - c/w one to one observation (re: suicidal precautions) - Will consult psychiatry for evaluation and placement to inpatient mental health unit 2. IDDM2 - c/w insulin sliding scale 3. History of CVA - will restart medications tomorrow 4. History of COPD - c/w duoneb 5. History of Hep C 6. History of MRSA 7. BPH 8. GERD 9. Abnormal thyroid function test - will require outpatient follow up / repeat 10. DVT prohylaxis - c/w SCDx VS,Fishbone, I+O VS, Fishbone, I+O Laboratory Tests 06/16/16 17:31 Calcium Level 7.6 L, Aspartate Amino Transf (AST/SGOT) 16, Alanine Aminotransferase (ALT/SGPT) 26, Total Creatine Kinase 158 #, Alkaline Phosphatase 76, Total Bilirubin 0.1 L, Total Protein 6.2 L, Albumin 3.3, Red Blood Count 4.40, Mean Corpuscular Volume 91.4, Mean Corpuscular Hemoglobin 31.4 , Mean Corpuscular Hemoglobin Concent 34.3, Red Cell Distribution Width 13.7 06/16/16 19:39 Calcium Level 7.8 L 06/16/16 21:42 Calcium Level 7.9 L 06/16/16 23:26 Calcium Level 8.0 L 06/17/16 01:44 Calcium Level 7.7 L, Total Creatine Kinase 184 06/17/16 03:47 Calcium Level 8.0 L 06/17/16 05:18 Calcium Level 8.2 L 06/17/16 09:11 Calcium Level 8.3 L Vital Signs Date Time Temp Pulse Resp B/P Pulse Ox O2 Delivery O2 Flow Rate FiO2 06/17/16 09:26 20 06/17/16 08:00 96.8 71 140/82 98 Room Air 06/16/16 14:00 2.0 I&O- Last 24 Hours up to 6 AM 06/17/16 06:00 Intake Total 3370 ml Output Total 5200 ml Balance -1830 ml GAETANO PINEDA MD Jun 17, 2016 13:39
[2016-06-17 14:47] LABS: ANION GAP 10 MEQ/L (8-16); BLOOD UREA NITROGEN 8 MG/DL (7-18); CALCIUM LEVEL 8.2 MG/DL (8.5-10.1); CARBON DIOXIDE LEVEL 25 MEQ/L (21-32); CHLORIDE LEVEL 109 MEQ/L (98-107); CREATININE FOR GFR 1.24 MG/DL (0.70-1.30); GLOMERULAR FILTRATION RATE > 60.0 (>56); GLUCOSE, FASTING 283 MG/DL (70-105); POTASSIUM SERUM 3.5 MEQ/L (3.5-5.1); SODIUM LEVEL 144 MEQ/L (136-145)
[2016-06-17] MEDS ORDERED: **NOTE PATIENT COMMENT** MISC XX ONE (17:00)
[2016-06-17] MEDS ORDERED: HumaLOG INSULIN (NovoLOG) PER UNIT SC SCH (21:00)
--- NOTE | 2016-06-17 22:25 | CR ---
DATE OF CONSULTATION: 06/17/2016 REQUESTING PHYSICIAN: Dr. Shine Joya CONSULTING PHYSICIAN: Dr. Fairchild REASON FOR CONSULTATION: Management of drug overdose including salicylates. CHIEF COMPLAINT: The patient was admitted to the hospital last night with polysubstance drug overdose. HISTORY OF THE PRESENT ILLNESS: Mr. German Diaz is a 55-year-old male with a past medical history of hypertension, insulin-dependent diabetes, cerebrovascular accident, chronic obstructive pulmonary disease (COPD), multiple other comorbidities with a history of depression and previous suicide attempts. He presented to the emergency room last night with a suicidal overdose of multiple medications, which included 5 days worth of his home medications, including about 40-50 tablets of aspirin 325 mg. The patient was also drinking yesterday and the medications that he took in bulk amount included lisinopril, tamsulosin, omeprazole, vitamin D, atorvastatin, Carafate and citalopram as well. The patient was admitted yesterday through emergency room and nephrology service consult was requested because of salicylate overdose and salicylate poisoning with possible need for hemodialysis. The patient was already discussed with the night hospitalist ux consultant, and he was initially started on IV half normal saline plus 75 mEq of bicarbonate but later on, his salicylate level was going up, up to 30, so his bicarbonate fluid was changed to D5W plus 150 mEq of bicarbonate to keep his serum alkalotic and his urine alkaline. I saw the patient today (morning); he was awake, alert, oriented times three. He was not agitated. There was no shortness of breath. His labs were stable, and his salicylate level was trending down. PAST MEDICAL HISTORY: History of depression. History of suicide attempts in the past. Insulin-dependent diabetes. Hypertension. Cerebrovascular accident. Diabetic neuropathy. COPD. BPH. Hepatitis C virus infection. PAST SURGICAL HISTORY: History of dental extractions in the past. Status post tonsillectomy. Status post liver biopsy in 2007. ALLERGIES: The patient is allergic to DIAZEPAM, MIDAZOLAM and TAPE. CURRENT MEDICATIONS: The patient's current medications include: - albuterol nebulizations - He was on D5W plus 150 mEq of bicarbonate which was stopped early this morning. - He got activated charcoal yesterday. - He was also on insulin sliding scale, and the dose was tapered down to keep him slightly hyperglycemic in the setting of salicylate poisoning. - He also has a nicotine patch. - He has oxycodone as needed. - Protonix 40 mg daily - He was also given potassium chloride 40 mEq one dose. FAMILY HISTORY: No significant family history of end-stage renal disease requiring hemodialysis. There is a positive history of myocardial infarction (SD) in the father and cerebrovascular accident in the father as well. SOCIAL HISTORY: The patient reports chronic alcohol use. He denies any illicit drug abuse, but he has a history of smoking in the past. He lives with his . REVIEW OF SYSTEMS: CONSTITUTIONAL: The patient denies any fevers, weakness, chills, or rigors. EYES: He denies any recent blurry vision. ENT: He denies any ear discharge, sore throat, dysphagia, odynophagia. CARDIOVASCULAR: He denies any palpitations or chest pain. RESPIRATORY: He denies any cough, shortness of breath or wheezing. GASTROINTESTINAL: He denies any pain in abdomen, constipation or diarrhea. GENITOURINARY: He denies any dysuria or hematuria. HEMATOLOGICAL/ONCOLOGICAL: He denies any history of anemia or easy bruising tendency. SKIN: He denies any rashes or ulcers. PSYCHIATRIC: He reports a history of depression and a history of suicide attempt in the past as well. CENTRAL NERVOUS SYSTEM: He reports a history of strokes in the past. He denies any seizures in the past. MUSCULOSKELETAL: He denies any muscle aches and pains. SKIN: He denies any rashes or ulcers. All other review of systems is negative. PHYSICAL EXAMINATION: GENERAL: The patient is awake, alert, oriented times three, laying in bed, in no apparent distress. VITAL SIGNS: Temperature is 96.5 degrees Fahrenheit, blood pressure is 140/80, pulse is 74, respiratory rate of 18, saturating 95% on room air. INTAKE/OUTPUT: Urine output recorded as 3.7 liters yesterday, 2.4 liters today. HEAD AND NECK EXAM: Extraocular muscles intact. Pupils equally round and reactive to light. Neck is supple. There is no jugular venous distention (JVD). CARDIOVASCULAR: S1, S2. Regular rate. No murmur, rub or gallop. RESPIRATORY: Chest is clear to auscultation bilaterally. Bilateral equal air entry. No rales or rhonchi. ABDOMEN: Soft. Positive bowel sounds. Nontender. No ascites. No hepatosplenomegaly. EXTREMITIES: No clubbing or cyanosis. Pulses are 2+. CENTRAL NERVOUS SYSTEM: No focal neurological deficit. Power is 5/5 in all extremities. SKIN: No rashes or ulcers. PSYCHIATRIC: Normal mood and affect. LAB REVIEW: CBC showed a WBC of 6.9, hemoglobin 13.8, platelets are 107. INR is 1.15. Urinalysis showed 3+ glucose, no nitrite, pH was 6, leukocyte esterase was negative. pH was 7.41 on the ABG today (morning). BMP showed sodium 144, potassium 3.5, chloride 109, bicarbonate 25, BUN 8, creatinine 1.24. Calcium was 8.2. Salicylate level today (morning) was 20.2. IMAGING: Chest x-ray done yesterday showed normal portable chest x-ray. ASSESSMENT: A 55-year-old male with a past medical history of insulin-dependent diabetes, normal renal function, hypertension and hepatitis C, history of depression and suicide attempts in the past, this time admitted with polysubstance suicidal overdose. PLAN: 1. Polysubstance suicidal overdose including salicylates. The patient was given IV fluid hydration with IV bicarbonate yesterday. His salicylate level is trending down at this time. There is no neurological manifestations at this time. Blood glucose levels are still high. There is no acid-base disturbance. Renal function is stable. His IV bicarbonate has been stopped at this time. 2. Insulin-dependent diabetes mellitus. I lowered the insulin sliding scale coverage last night because the patient had salicylate overdose, and I wanted to permit some hyperglycemia to prevent central nervous system side effects of salicylate. I am going to adjust the insulin sliding scale again. 3. Hypokalemia. Hypokalemia was secondary to aggressive IV bicarbonate fluid with D5. The patient's potassium was already repleted today. IV fluids have been stopped. Potassium will hopefully stay stable. 4. Hypertension. Continue current dose of medications. No hypertensive medications at this time. Blood pressure is acceptable. The patient took almost 5 days worth of his medications. Continue to hold the antihypertensives at this time. 5. Depression and suicidal overdose. The patient can be transferred to inpatient psychiatric unit from a nephrology standpoint. Thank you for involving us in the care of this patient. We shall be happy to follow the patient along with you tomorrow morning. Plan of care was discussed with the hospitalist team last night and today (morning) as well.
[2016-06-18] MEDS ORDERED: SLF 3 ML SYR IV PRN (00:30)
[2016-06-18] MEDS: IPRATROPIUM 0.5MG/ALBUTEROL 2.5MG INH SOL UD 3ML (DUONEB)(J7620) NEB SCH ×4 (04:00→12:00)
[2016-06-18 04:03] VITALS: BP 164/89
[2016-06-18] MEDS: ANALGESIC BALM CRM 120 GM TOP PRN (04:40)
[2016-06-18] MEDS: SLF 3 ML SYR IV SCH ×2 (06:00→12:32)
[2016-06-18 07:30] VITALS: BP 143/78
[2016-06-18] MEDS: HumaLOG INSULIN (NovoLOG) PER UNIT SC SCH ×2 (07:30→12:31)
[2016-06-18] MEDS ORDERED: CitaloPRAM (CeleXA) 20 MG TAB PO SCH (09:00)
[2016-06-18] MEDS ORDERED: INFLUENZA QUADRIVALENT PF VACCINE 0.5ML SYRINGE/VIAL (90686) IM ONE (09:00)
[2016-06-18] MEDS ORDERED: OMEPRAZOLE 20 MG CAP PO SCH (09:00)
[2016-06-18] MEDS ORDERED: LISINOPRIL 10 MG TAB PO SCH (09:00)
[2016-06-18] MEDS ORDERED: VITAMIN D 1,000 INTERNATIONAL UNITS TABLET PO SCH (09:00)
[2016-06-18 09:02] VITALS: BP 143/78
[2016-06-18] MEDS: NICOTINE 14 MG/24 HR TRANSDERMAL TD SCH (09:02)
[2016-06-18] MEDS: oxyCODONE 20 MG CR TAB PO SCH (09:02)
[2016-06-18 09:19] LABS: INR 1.12
--- NOTE | 2016-06-18 12:37 | EDDOCDS ---
Physician Documentation [facility] Name: German Diaz Age: 55 yrs Sex: Male : 1960 Arrival Date: 06/16/2016 Time: 04:48 Bed Admit Hold Private MD: Disposition: 06/16/16 08:49 Hospitalization ordered by Shine Joya for Inpatient Admission. Preliminary diagnosis are Suicide attempt, Poisoning by other antidepressants, intentional self-harm. - [facility] - Status is Inpatient Admission. ml6 - Condition is Stable. - Problem is new. - Symptoms have improved. Historical: - Allergies: Versed (hallucinations); - Home Meds: 1. Carafate 1 gram Oral tab 4 times per day 2. omeprazole 20 mg Oral cpDR 1 cap once daily 3. citalopram 20 mg Oral tab 1 tab once daily 4. Flomax 0.4 mg Oral cp24 1 cap once daily 5. Vitamin D Oral 1,000 unit daily 6. atorvastatin 10 mg oral tab 1 tab once daily 7. aspirin 81 mg Oral chew 8. lisinopril 10 mg Oral tab 1 tab once daily 9. Humalog 100 unit/mL Sub-Q crtg 100 unit/mL sliding scale before meals 10. Lantus 100 unit/mL Sub-Q soln 85 units twice a day 11. Lyrica 225mg Oral 2 times per day 12. Zofran (as hydrochloride) 4 mg Oral tab every 6 hours 13. OxyContin 20 mg Oral Tb12 1 tab every 12 hours - PMHx: Chronic Pain; Depression; Diabetes - IDDM: controlled; Hepatitis C; HTN; - PSHx: colonscopy; endocscopy; - Social history: Smoking status: unknown if patient ever smoked tobacco. No barriers to communication noted, The patient speaks fluent Kyrgyz. - Family history: Not pertinent. - : The pt / caregiver states he / she is not on anticoagulants. Home medication list is obtained from family members. - Exposure Risk Screening:: None identified. Vital Signs: 06/16 04:49 BP 161 / 115 (auto/); af2 04:51 BP 161 / 115; Pulse 120; Resp 20; Pulse Ox 96% on R/A; Weight 88.45 kg / 195 lbs (R); emilia Height 5 ft. 11 in. (180.34 cm) (R); 04:51 Pulse 120 MON; Pulse Ox 96% ; af2 05:15 BP 105 / 74 (auto/); af2 05:15 Pulse 101 MON; Pulse Ox 97% ; af2 05:30 BP 112 / 77 (auto/); af2 05:31 Pulse 100 MON; Resp 18 S; Pulse Ox 98% on R/A; af2 05:41 Pulse 99 MON; Pulse Ox 96% ; af2 05:45 BP 141 / 86 (auto/); af2 06:00 BP 165 / 90 (auto/); af2 06:01 Pulse 116 MON; Resp 18 S; Pulse Ox 96% on R/A; af2 06:15 BP 144 / 95 (auto/); af2 06:15 Pulse 103 MON; Pulse Ox 97% ; af2 06:30 BP 131 / 78 (auto/); af2 06:31 Pulse 100 MON; Resp 20 S; Pulse Ox 96% on R/A; af2 07:03 BP 128 / 83 (auto/); af2 07:04 Pulse 101 MON; Resp 20 S; Temp 97.7(T); Pulse Ox 95% on R/A; af2 07:18 BP 112 / 64 (auto/); ml6 07:18 Pulse 103 MON; ml6 07:33 BP 103 / 58 (auto/); ml6 07:33 Pulse 95 MON; Resp 16; Pulse Ox 98% on R/A; Pain 0/10; ml6 07:48 BP 74 / 52 (auto/); ml6 07:48 Pulse 87 MON; Resp 16; Pulse Ox 76% on R/A; ml6 07:49 BP 74 / 50 (auto/); ml6 07:49 Pulse 87 MON; Resp 18; Pulse Ox 98% on 4 lpm NC; ml6 07:50 BP 78 / 53 (auto/); ml6 07:50 Pulse 86 MON; Resp 16; Pulse Ox 98% on 4 lpm NC; ml6 07:56 BP 74 / 54 (auto/); ml6 07:56 Pulse 88 MON; Resp 18; Pulse Ox 96% on 4 lpm NC; Pain 0/10; ml6 08:00 BP 112 / 58 (auto/); ml6 08:00 Pulse 90 MON; Resp 18; Pulse Ox 99% on 4 lpm NC; Pain 0/10; ml6 08:03 BP 106 / 57 (auto/); ml6 08:03 Pulse 92 MON; Resp 18; Pulse Ox 99% on 2 lpm NC; Pain 0/10; ml6 08:18 BP 118 / 64 (auto/); ml6 08:18 Pulse 101 MON; Resp 18; Pulse Ox 98% on 2 lpm NC; ml6 08:33 BP 118 / 65 (auto/); ml6 08:33 Pulse 103 MON; Resp 18; Pulse Ox 98% on 2 lpm NC; ml6 08:48 BP 99 / 63 (auto/); ml6 08:48 Pulse 97 MON; Resp 16; Temp 97.6(T); Pulse Ox 98% on 2 lpm NC; Pain 0/10; ml6 09:03 BP 98 / 61 (auto/); ml6 09:03 Pulse 93 MON; Resp 16; Pulse Ox 96% on 4 lpm NC; Pain 0/10; ml6 09:38 BP 114 / 63 (auto/); ml6 09:38 Pulse 90 MON; Resp 16; Pulse Ox 97% on 4 lpm NC; ml6 09:47 BP 118 / 61 (auto/); ml6 09:47 Pulse 93 MON; Resp 16; Pulse Ox 98% on 4 lpm NC; ml6 10:02 BP 92 / 58 (auto/); ml6 10:02 Pulse 97 MON; Resp 16; Pulse Ox 97% on 4 lpm NC; ml6 10:18 BP 97 / 64 (auto/); ml6 10:18 Pulse 98 MON; Resp 18; Pulse Ox 98% on 4 lpm NC; Pain 0/10; ml6 10:32 BP 107 / 70 (auto/); ml6 10:32 Pulse 91 MON; Resp 18; Temp 98.4(O); Pulse Ox 98% on 4 lpm NC; Pain 0/10; ml6 10:47 BP 125 / 69 (auto/); ml6 10:47 Pulse 92 MON; Resp 18; Pulse Ox 97% on 4 lpm NC; Pain 0/10; ml6 11:02 BP 156 / 67 (auto/); ml6 11:02 Pulse 88 MON; Resp 16; Pulse Ox 98% on 4 lpm NC; Pain 0/10; ml6 11:18 BP 135 / 88 (auto/); ml6 11:18 Pulse 90 MON; Resp 18; Pulse Ox 98% on 4 lpm NC; ml6 11:32 BP 134 / 70 (auto/); ml6 11:32 Pulse 107 MON; Resp 18; Temp 98.3(O); Pulse Ox 97% on 4 lpm NC; Pain 0/10; ml6 04:51 Body Mass Index 27.20 (88.45 kg, 180.34 cm) emilia MDM: 05:00 Consult PFS/PSA/Privacy Attorney ordered. cs11 05:00 Consult PFS/PSA/Privacy Attorney: Patient's case requires discussion with on-call cs11 Psychiatrist ordered. 05:00 PSA/PFS to call Nursing Leather Worker, to enter patient data on [place] Safe [place] if patient cs11 involuntarily admitted or transferred for SI or HI ordered. 05:00 Legislative Aide/Pulse Ox/q 15 min VS ordered. cs11 05:00 Confirm accurate psychiatric medication list and times of last dosage ordered. cs11 05:00 Detain Pt Until Medically/PFS Cleared ordered. cs11 05:00 IV Saline Lock ordered. cs11 05:01 NS 0.9% 1000 ml IV at bolus once ordered. cs11 05:01 Acetaminophen Level Ordered. EDMS 05:01 Basic Metabolic Profile Ordered. EDMS 05:01 Complete Blood Count Ordered. EDMS 05:01 Drug Eval Toxicology ED Only Ordered. EDMS 05:01 Ethyl Alcohol (ethanol) Ordered. EDMS 05:01 Liver Profile Ordered. EDMS 05:01 Salicylate Level Ordered. EDMS 05:01 Thyroid Stimulating Hormone Ordered. EDMS 05:02 ECG WITH READING ER PHYS+CARDIAG ordered. EDMS 05:17 morphine 5 mg IVP once ordered. cs11 05:22 Ondansetron 4 mg IVP once ordered. cs11 05:39 Complete Blood Count Reviewed. cs11 05:39 Drug Eval Toxicology ED Only Reviewed. cs11 05:49 Acetaminophen Level Reviewed. cs11 05:49 Basic Metabolic Profile Reviewed. cs11 05:49 Ethyl Alcohol (ethanol) Reviewed. cs11 05:49 Thyroid Stimulating Hormone Reviewed. cs11 05:49 Liver Profile Reviewed. cs11 05:49 Salicylate Level Reviewed. cs11 06:22 Haloperidol 5 mg IVP once ordered. cs11 06:22 diphenhydrAMINE 25 mg IVP once ordered. cs11 06:47 Haloperidol 2.5 mg IVP once ordered. cs11 06:47 diphenhydrAMINE 25 mg IVP once ordered. cs11 06:57 Restraints, Adult: Mechanical - 4 points up to 1 hr (poses imminent danger of cs11 self-harm). May use manual restraints to secure restraint devices. Pt. monitoring per RN policy. ordered. 07:51 NS 0.9% 1000 ml IV at bolus once ordered. fg 08:11 Financial registration complete. lg 08:23 BED REQUEST+ADM ordered. EDMS 08:24 Salicylate Level: draw at 9am Ordered. EDMS 08:24 Acetaminophen Level: draw at 9am Ordered. EDMS 08:24 ETOH: Draw at 9am Ordered. EDMS 08:24 [facility] Payment Agreement was scanned into [employer] and attached to record. lg 09:02 Written Provider Order was scanned into [employer] and attached to record. deg 09:05 ECG WITH READING ER PHYS ordered. EDMS 09:12 Admission / Observation Status ordered. EDMS 09:12 CT Head without contrast Ordered. EDMS 09:12 NPO DIET ordered. EDMS 09:13 CARDIAC INJURY PROFILE Ordered. EDMS 09:13 CARDIAC INJURY PROFILE Ordered. EDMS 09:13 TROPONIN Ordered. EDMS 09:13 TROPONIN Ordered. EDMS 09:13 PROTHROMBIN TIME PROFILE\E\INR Ordered. EDMS 09:13 LACTIC ACID LEVEL, LACTATE Ordered. EDMS 09:13 VENOUS BLOOD GAS Ordered. EDMS 11:08 SALICYLATE LEVEL Ordered. EDMS 11:08 SALICYLATE LEVEL Ordered. EDMS 11:08 SALICYLATE LEVEL Ordered. EDMS 11:08 SALICYLATE LEVEL Ordered. EDMS 11:09 SALICYLATE LEVEL Ordered. EDMS 11:09 SALICYLATE LEVEL Ordered. EDMS 11:09 SALICYLATE LEVEL Ordered. EDMS 14:38 T-Sheet-- Draft Copy was scanned into [employer] and attached to record. gb Administered Medications: 05:07 Drug: NS 0.9% 1000 ml [sodium chloride 0.9 % intravenous solution] Route: IV; Rate: af2 bolus; Site: left wrist; 07:04 Follow up: IV Status: Completed infusion; IV Intake: 1000ml ml6 05:22 CANCELLED (Other Intervention Used): Ondansetron 8 mg IVP once cs11 05:26 Drug: morphine 5 mg [morphine 10 mg/mL injection solution (0.5 mL)] Route: IVP; Site: af2 left wrist; 05:30 Drug: Ondansetron 4 mg [ondansetron HCl 2 mg/mL intravenous solution (2 mL)] Route: af2 IVP; Site: left wrist; 06:30 Drug: Haloperidol 5 mg [haloperidol lactate 5 mg/mL injection solution (1 mL)] Route: af2 IVP; Site: left antecubital; 06:30 Drug: diphenhydrAMINE 25 mg [diphenhydramine 50 mg/mL injection solution (0.5 mL)] af2 Route: IVP; Site: right hand; 06:50 Drug: Haloperidol 2.5 mg [haloperidol lactate 5 mg/mL injection solution (0.5 mL)] af2 Route: IVP; Site: left antecubital; 06:50 Drug: diphenhydrAMINE 25 mg [diphenhydramine 50 mg/mL injection solution (0.5 mL)] af2 Route: IVP; Site: left antecubital; 07:56 Drug: NS 0.9% 1000 ml [sodium chloride 0.9 % intravenous solution] Route: IV; Rate: ml6 bolus; Site: left antecubital; 08:45 Follow up: IV Status: Completed infusion; Infusion discontinued; IV Intake: 1000ml ml6 Signatures: Dispatcher MedHost EDMS Peggy Acuña, Computing Systems Mechanic Unit deg Salima Rothman, Reg Reg gb Lui Ambrose, Reg Reg lg Julian Elise RN RN ml6 Anton Kelly DO DO cs11 Brenda Perez RN RN af2 Amanda Richards MD MD fg Gosselin, Lisa, [place] RN lmg The chart was reviewed and I authenticate all verbal orders and agree with the evaluation and treatment provided.Corrections: (The following items were deleted from the chart) 05:22 05:21 Ondansetron 8 mg IVP once ordered. cs11 cs11 08:25 05:53 [facility] Contracts Administrator Order ordered. cs11 ml6 Attachments: 08:24 [facility] Payment Agreement lg 09:02 Written Provider Order deg 14:38 T-Sheet-- Draft Copy gb Chart Complete MTDD
--- NOTE | 2016-06-18 12:37 | EDDOCDS ---
Physician Documentation [facility] Name: German Diaz Age: 55 yrs Sex: Male : 1960 Arrival Date: 06/16/2016 Time: 04:48 Bed Admit Hold Private MD: Disposition: 06/16/16 08:49 Hospitalization ordered by Shine Joya for Inpatient Admission. Preliminary diagnosis are Suicide attempt, Poisoning by other antidepressants, intentional self-harm. - [facility] - Status is Inpatient Admission. ml6 - Condition is Stable. - Problem is new. - Symptoms have improved. Historical: - Allergies: Versed (hallucinations); - Home Meds: 1. Carafate 1 gram Oral tab 4 times per day 2. omeprazole 20 mg Oral cpDR 1 cap once daily 3. citalopram 20 mg Oral tab 1 tab once daily 4. Flomax 0.4 mg Oral cp24 1 cap once daily 5. Vitamin D Oral 1,000 unit daily 6. atorvastatin 10 mg oral tab 1 tab once daily 7. aspirin 81 mg Oral chew 8. lisinopril 10 mg Oral tab 1 tab once daily 9. Humalog 100 unit/mL Sub-Q crtg 100 unit/mL sliding scale before meals 10. Lantus 100 unit/mL Sub-Q soln 85 units twice a day 11. Lyrica 225mg Oral 2 times per day 12. Zofran (as hydrochloride) 4 mg Oral tab every 6 hours 13. OxyContin 20 mg Oral Tb12 1 tab every 12 hours - PMHx: Chronic Pain; Depression; Diabetes - IDDM: controlled; Hepatitis C; HTN; - PSHx: colonscopy; endocscopy; - Social history: Smoking status: unknown if patient ever smoked tobacco. No barriers to communication noted, The patient speaks fluent Kyrgyz. - Family history: Not pertinent. - : The pt / caregiver states he / she is not on anticoagulants. Home medication list is obtained from family members. - Exposure Risk Screening:: None identified. Vital Signs: 06/16 04:49 BP 161 / 115 (auto/); af2 04:51 BP 161 / 115; Pulse 120; Resp 20; Pulse Ox 96% on R/A; Weight 88.45 kg / 195 lbs (R); emilia Height 5 ft. 11 in. (180.34 cm) (R); 04:51 Pulse 120 MON; Pulse Ox 96% ; af2 05:15 BP 105 / 74 (auto/); af2 05:15 Pulse 101 MON; Pulse Ox 97% ; af2 05:30 BP 112 / 77 (auto/); af2 05:31 Pulse 100 MON; Resp 18 S; Pulse Ox 98% on R/A; af2 05:41 Pulse 99 MON; Pulse Ox 96% ; af2 05:45 BP 141 / 86 (auto/); af2 06:00 BP 165 / 90 (auto/); af2 06:01 Pulse 116 MON; Resp 18 S; Pulse Ox 96% on R/A; af2 06:15 BP 144 / 95 (auto/); af2 06:15 Pulse 103 MON; Pulse Ox 97% ; af2 06:30 BP 131 / 78 (auto/); af2 06:31 Pulse 100 MON; Resp 20 S; Pulse Ox 96% on R/A; af2 07:03 BP 128 / 83 (auto/); af2 07:04 Pulse 101 MON; Resp 20 S; Temp 97.7(T); Pulse Ox 95% on R/A; af2 07:18 BP 112 / 64 (auto/); ml6 07:18 Pulse 103 MON; ml6 07:33 BP 103 / 58 (auto/); ml6 07:33 Pulse 95 MON; Resp 16; Pulse Ox 98% on R/A; Pain 0/10; ml6 07:48 BP 74 / 52 (auto/); ml6 07:48 Pulse 87 MON; Resp 16; Pulse Ox 76% on R/A; ml6 07:49 BP 74 / 50 (auto/); ml6 07:49 Pulse 87 MON; Resp 18; Pulse Ox 98% on 4 lpm NC; ml6 07:50 BP 78 / 53 (auto/); ml6 07:50 Pulse 86 MON; Resp 16; Pulse Ox 98% on 4 lpm NC; ml6 07:56 BP 74 / 54 (auto/); ml6 07:56 Pulse 88 MON; Resp 18; Pulse Ox 96% on 4 lpm NC; Pain 0/10; ml6 08:00 BP 112 / 58 (auto/); ml6 08:00 Pulse 90 MON; Resp 18; Pulse Ox 99% on 4 lpm NC; Pain 0/10; ml6 08:03 BP 106 / 57 (auto/); ml6 08:03 Pulse 92 MON; Resp 18; Pulse Ox 99% on 2 lpm NC; Pain 0/10; ml6 08:18 BP 118 / 64 (auto/); ml6 08:18 Pulse 101 MON; Resp 18; Pulse Ox 98% on 2 lpm NC; ml6 08:33 BP 118 / 65 (auto/); ml6 08:33 Pulse 103 MON; Resp 18; Pulse Ox 98% on 2 lpm NC; ml6 08:48 BP 99 / 63 (auto/); ml6 08:48 Pulse 97 MON; Resp 16; Temp 97.6(T); Pulse Ox 98% on 2 lpm NC; Pain 0/10; ml6 09:03 BP 98 / 61 (auto/); ml6 09:03 Pulse 93 MON; Resp 16; Pulse Ox 96% on 4 lpm NC; Pain 0/10; ml6 09:38 BP 114 / 63 (auto/); ml6 09:38 Pulse 90 MON; Resp 16; Pulse Ox 97% on 4 lpm NC; ml6 09:47 BP 118 / 61 (auto/); ml6 09:47 Pulse 93 MON; Resp 16; Pulse Ox 98% on 4 lpm NC; ml6 10:02 BP 92 / 58 (auto/); ml6 10:02 Pulse 97 MON; Resp 16; Pulse Ox 97% on 4 lpm NC; ml6 10:18 BP 97 / 64 (auto/); ml6 10:18 Pulse 98 MON; Resp 18; Pulse Ox 98% on 4 lpm NC; Pain 0/10; ml6 10:32 BP 107 / 70 (auto/); ml6 10:32 Pulse 91 MON; Resp 18; Temp 98.4(O); Pulse Ox 98% on 4 lpm NC; Pain 0/10; ml6 10:47 BP 125 / 69 (auto/); ml6 10:47 Pulse 92 MON; Resp 18; Pulse Ox 97% on 4 lpm NC; Pain 0/10; ml6 11:02 BP 156 / 67 (auto/); ml6 11:02 Pulse 88 MON; Resp 16; Pulse Ox 98% on 4 lpm NC; Pain 0/10; ml6 11:18 BP 135 / 88 (auto/); ml6 11:18 Pulse 90 MON; Resp 18; Pulse Ox 98% on 4 lpm NC; ml6 11:32 BP 134 / 70 (auto/); ml6 11:32 Pulse 107 MON; Resp 18; Temp 98.3(O); Pulse Ox 97% on 4 lpm NC; Pain 0/10; ml6 04:51 Body Mass Index 27.20 (88.45 kg, 180.34 cm) emilia MDM: 05:00 Consult PFS/PSA/Feeder Associate ordered. cs11 05:00 Consult PFS/PSA/Feeder Associate: Patient's case requires discussion with on-call cs11 Psychiatrist ordered. 05:00 PSA/PFS to call Nursing Welder Experimental, to enter patient data on [place] if patient cs11 involuntarily admitted or transferred for SI or HI ordered. 05:00 Incident Response Specialist/Pulse Ox/q 15 min VS ordered. cs11 05:00 Confirm accurate psychiatric medication list and times of last dosage ordered. cs11 05:00 Detain Pt Until Medically/PFS Cleared ordered. cs11 05:00 IV Saline Lock ordered. cs11 05:01 NS 0.9% 1000 ml IV at bolus once ordered. cs11 05:01 Acetaminophen Level Ordered. EDMS 05:01 Basic Metabolic Profile Ordered. EDMS 05:01 Complete Blood Count Ordered. EDMS 05:01 Drug Eval Toxicology ED Only Ordered. EDMS 05:01 Ethyl Alcohol (ethanol) Ordered. EDMS 05:01 Liver Profile Ordered. EDMS 05:01 Salicylate Level Ordered. EDMS 05:01 Thyroid Stimulating Hormone Ordered. EDMS 05:02 ECG WITH READING ER PHYS+CARDIAG ordered. EDMS 05:17 morphine 5 mg IVP once ordered. cs11 05:22 Ondansetron 4 mg IVP once ordered. cs11 05:39 Complete Blood Count Reviewed. cs11 05:39 Drug Eval Toxicology ED Only Reviewed. cs11 05:49 Acetaminophen Level Reviewed. cs11 05:49 Basic Metabolic Profile Reviewed. cs11 05:49 Ethyl Alcohol (ethanol) Reviewed. cs11 05:49 Thyroid Stimulating Hormone Reviewed. cs11 05:49 Liver Profile Reviewed. cs11 05:49 Salicylate Level Reviewed. cs11 06:22 Haloperidol 5 mg IVP once ordered. cs11 06:22 diphenhydrAMINE 25 mg IVP once ordered. cs11 06:47 Haloperidol 2.5 mg IVP once ordered. cs11 06:47 diphenhydrAMINE 25 mg IVP once ordered. cs11 06:57 Restraints, Adult: Mechanical - 4 points up to 1 hr (poses imminent danger of cs11 self-harm). May use manual restraints to secure restraint devices. Pt. monitoring per RN policy. ordered. 07:51 NS 0.9% 1000 ml IV at bolus once ordered. fg 08:11 Financial registration complete. lg 08:23 BED REQUEST+ADM ordered. EDMS 08:24 Salicylate Level: draw at 9am Ordered. EDMS 08:24 Acetaminophen Level: draw at 9am Ordered. EDMS 08:24 ETOH: Draw at 9am Ordered. EDMS 08:24 [facility] Payment Agreement was scanned into [employer] and attached to record. lg 09:02 Written Provider Order was scanned into [employer] and attached to record. deg 09:05 ECG WITH READING ER PHYS ordered. EDMS 09:12 Admission / Observation Status ordered. EDMS 09:12 CT Head without contrast Ordered. EDMS 09:12 NPO DIET ordered. EDMS 09:13 CARDIAC INJURY PROFILE Ordered. EDMS 09:13 CARDIAC INJURY PROFILE Ordered. EDMS 09:13 TROPONIN Ordered. EDMS 09:13 TROPONIN Ordered. EDMS 09:13 PROTHROMBIN TIME PROFILE\E\INR Ordered. EDMS 09:13 LACTIC ACID LEVEL, LACTATE Ordered. EDMS 09:13 VENOUS BLOOD GAS Ordered. EDMS 11:08 SALICYLATE LEVEL Ordered. EDMS 11:08 SALICYLATE LEVEL Ordered. EDMS 11:08 SALICYLATE LEVEL Ordered. EDMS 11:08 SALICYLATE LEVEL Ordered. EDMS 11:09 SALICYLATE LEVEL Ordered. EDMS 11:09 SALICYLATE LEVEL Ordered. EDMS 11:09 SALICYLATE LEVEL Ordered. EDMS 14:38 T-Sheet-- Draft Copy was scanned into [employer] and attached to record. gb Administered Medications: 05:07 Drug: NS 0.9% 1000 ml [sodium chloride 0.9 % intravenous solution] Route: IV; Rate: af2 bolus; Site: left wrist; 07:04 Follow up: IV Status: Completed infusion; IV Intake: 1000ml ml6 05:22 CANCELLED (Other Intervention Used): Ondansetron 8 mg IVP once cs11 05:26 Drug: morphine 5 mg [morphine 10 mg/mL injection solution (0.5 mL)] Route: IVP; Site: af2 left wrist; 05:30 Drug: Ondansetron 4 mg [ondansetron HCl 2 mg/mL intravenous solution (2 mL)] Route: af2 IVP; Site: left wrist; 06:30 Drug: Haloperidol 5 mg [haloperidol lactate 5 mg/mL injection solution (1 mL)] Route: af2 IVP; Site: left antecubital; 06:30 Drug: diphenhydrAMINE 25 mg [diphenhydramine 50 mg/mL injection solution (0.5 mL)] af2 Route: IVP; Site: right hand; 06:50 Drug: Haloperidol 2.5 mg [haloperidol lactate 5 mg/mL injection solution (0.5 mL)] af2 Route: IVP; Site: left antecubital; 06:50 Drug: diphenhydrAMINE 25 mg [diphenhydramine 50 mg/mL injection solution (0.5 mL)] af2 Route: IVP; Site: left antecubital; 07:56 Drug: NS 0.9% 1000 ml [sodium chloride 0.9 % intravenous solution] Route: IV; Rate: ml6 bolus; Site: left antecubital; 08:45 Follow up: IV Status: Completed infusion; Infusion discontinued; IV Intake: 1000ml ml6 Signatures: Dispatcher MedHost EDMS Peggy cAuña, Lawn Care Specialist Unit deg Salima Rothman, Reg Reg gb Lui Ambrose, Reg Reg lg Julian Elise RN RN ml6 Anton Kelly DO DO cs11 Brenda Perez RN RN af2 Amanda Richards MD MD fg Gosselin, Lisa, [place] RN lmg The chart was reviewed and I authenticate all verbal orders and agree with the evaluation and treatment provided.Corrections: (The following items were deleted from the chart) 05:22 05:21 Ondansetron 8 mg IVP once ordered. cs11 cs11 08:25 05:53 [facility] Refrigeration Engineering Teacher Order ordered. cs11 ml6 Attachments: 08:24 [facility] Payment Agreement lg 09:02 Written Provider Order deg 14:38 T-Sheet-- Draft Copy gb Chart Complete MTDD
--- NOTE | 2016-06-18 12:37 | EDDOCDS ---
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 fg 10:29 CT Study completed. ml6 10:44 Discharge Assessment: patient administered narcotics - no. ml6 11:36 The following High Risk Discharge criteria are identified: None. Admitted to PCU ml6 accompanied by nurse, accompanied by tech, via stretcher, on monitor, with chart. Condition: stable. Property :Personal belongings accompany Pt. 11:37 Patient left the ED. ml6 Signatures: Dispatcher [employer] EDMS Peggy Acuña, Medical Insurance Coding Specialist Unit deg Salima Rothman, Reg Reg gb Lui Ambrose, Reg Reg lg Julian Elise, RN RN ml6 Chela, Clau, HIGHER LEVEL TEACHING ASSISTANT HIGHER LEVEL TEACHING ASSISTANT Ana Cristina Thompson, RN RN sls1 Dani Mcgarry, DO cs11 Ezra, Danyell, HIGHER LEVEL TEACHING ASSISTANT HIGHER LEVEL TEACHING ASSISTANT tmm1 Brenda Perez,RN RN af2 Amanda Richards MD MD fg Vega, Jose, HIGHER LEVEL TEACHING ASSISTANT HIGHER LEVEL TEACHING ASSISTANT jmv Chart Complete ALPA
--- NOTE | 2016-06-18 13:07 | IPN ---
DATE OF SERVICE: 06/18/2016 SUBJECTIVE: The patient was seen and examined at the bedside today. He does not have any active complaints. His renal function is stable. REVIEW OF SYSTEMS: The patient denies any fevers, chills, rigors, headache, nausea, vomiting, chest pain, shortness of breath, pain abdomen. He does report that he is constipated. The rest of review of systems is negative. OBJECTIVE: VITAL SIGNS: Temperature is 95.6 degrees Fahrenheit, blood pressure is 143/78, pulse is 50, respiratory rate of 18, saturating 98% on room air. INTAKE AND OUTPUT: Urine output recorded is 2.4 liters yesterday, 750 mL so far today. PHYSICAL EXAMINATION: GENERAL: The patient is awake, alert, oriented times three, lying in bed, in no apparent distress. HEAD AND NECK EXAMINATION: Extraocular muscles intact. Pupils equally round and reactive to light. Neck is supple. There is no jugular venous distention (JVD). CARDIOVASCULAR: S1, S2. Regular rate. No murmur, rub, and gallop. RESPIRATORY: Chest is clear to auscultation bilaterally. Bilateral equal air entry. No rales or rhonchi. ABDOMEN: Is soft. Positive bowel sounds. Nontender. No ascites. No organomegaly. EXTREMITIES: No clubbing or cyanosis. Pulses are 2+. CENTRAL NERVOUS SYSTEM: No focal neurological deficit. Power is 5/5 in all extremities. LABORATORY REVIEW: CBC is not done today. A repeat BMP is not available, as well. CURRENT MEDICATIONS: The patient's current medications are all reviewed by me. There is no change in the current medications at this time. ASSESSMENT: A 55-year-old male with a past medical history of insulin-dependent diabetes with a normal renal function, history of hypertension and hepatitis C, history of depression and suicide attempts in the past, this time admitted with polysubstance suicidal overdose. PLAN: 1. Polysubstance suicidal overdose, including salicylates and antihypertensive medications. The patient was initially given intravenous (IV) fluid hydration. His renal function is stable. His blood pressure is acceptable at this time. His neurological function is also stable at this time. His oriented times three. The patient needs to be evaluated by psychiatry and sent to inpatient psychiatric unit. 2. Hypertension. The patient's blood pressure is acceptable at this time. He has been restarted on Lisinopril 10 mg by mouth daily today, which is acceptable for now. 3. Insulin-dependent diabetes. I readjusted his insulin sliding scale yesterday. Blood glucose levels are still slightly high. It is okay to tightly control the blood glucose at this time since salicylate levels have gone down. The patient's renal function is stable. He does not need any urgent hemodialysis. Nephrology service will sign off at this time. Plan of care was discussed with the hospitalist team, Dr. Amanda Kraus. Please call nephrology service as needed for help in the management of this patient in the future.
--- NOTE | 2016-06-18 18:55 | DSES ---
DATE OF ADMISSION: 06/16/2016 DATE OF DISCHARGE: 06/18/2016 ATTENDING PHYSICIAN: Amanda Kraus MD PRIMARY CARE PHYSICIAN: Unknown. REFERRING PHYSICIAN: Unknown. CONSULTING PHYSICIAN: Dr. Fairchild CONDITION ON DISCHARGE: Stable. FINAL DIAGNOSIS: Acute drug intoxication secondary to suicidal ideation. PROCEDURES: None. HISTORY OF PRESENT ILLNESS: Patient is a 55-year-old male with a past medical history of insulin-dependent diabetes mellitus type 2, hypertension, cerebrovascular accident (CVA), diabetic neuropathy, chronic obstructive pulmonary disease (COPD), history of methicillin-resistant Staphylococcus aureus (MRSA), BPH, gastroesophageal reflux disease (GERD), hepatitis C, history of prior suicidal attempts, who presented to the emergency room with a suicidal attempt by overdose. Patient had consumed multiple pills of lisinopril, tamsulosin, omeprazole, vitamin D, atorvastatin, Carafate, aspirin, citalopram. Poison control was contacted. Advised to followup salicylate level and trend every 2 hours. Advised to start bicarbonate drip. Patient was seen and examined at the bedside. HOSPITAL COURSE: 1. Overdose/suicidal attempt. Multiple episodes of suicidal attempts while he was drunk have been attempted in the past. He had overdosed on lisinopril, tamsulosin, omeprazole, vitamin D, atorvastatin, Carafate, aspirin, and citalopram. Case was discussed with poison control. They advised that we should follow salicylate levels every 2 hours until it peaks and then every 4 hours after that. Patient's salicylate levels have peaked and have been continuing trending down after that. Patient had clinically showed resolution of his altered mental status. EKG showed no further changes. Patient was discontinued on bicarbonate drip and activated charcoal at that point. Patient was continued on one-to-one observation. Psychiatry was consulted this morning, and case was discussed. Advised that he was medically cleared for transfer to inpatient mental health. 2. Insulin-dependent diabetes mellitus type 2. Continue with insulin sliding scale. 3. History of CVA. Medications have been restarted today except for aspirin, which will be restarted tomorrow. 4. History of chronic obstructive pulmonary disease. Continue with DuoNeb. 5. History of hepatitis C. 6. History of MRSA . 7. BPH. 8. GERD. 9. Abnormal thyroid function test will require outpatient followup and repeat. 10. Deep venous thrombosis (DVT) prophylaxis. Continue with sequential compression devices. DISCHARGE MEDICATION: Patient has been transferred to inpatient mental health with the following medications: - aspirin 81 mg by mouth daily - atorvastatin 10 mg by mouth nightly - vitamin D 1000 units by mouth daily - citalopram 20 mg by mouth daily - glargine 50 units subcutaneous twice a day - Humalog one dose subcutaneous before food, nightly as directed - lisinopril 10 mg by mouth daily - omeprazole 20 mg by mouth daily - oxycodone 20 mg by mouth every 12 hours - pregabalin 225 mg by mouth twice a day - tamsulosin 0.4 mg by mouth every evening - trazodone 50 mg by mouth nightly DISCHARGE INSTRUCTIONS: Patient has been advised to followup with his primary care provider within the next 2 weeks and psychiatry within the next 2 weeks. He has been advised to confirm scheduled appointment. He has been advised to remain compliant with the treatment plan and medications and return to the emergency room if he experiences any problems. TIME SPENT ON DISCHARGE: 35 minutes. Edited: rajendra 06/20/2015 1306 MTDD
[2016-06-18] MEDS ORDERED: traZODone 50 MG TAB PO SCH (21:00)
[2016-06-18] MEDS ORDERED: ATORVASTATIN 10 MG TAB PO SCH (21:00)
[2016-06-18] MEDS ORDERED: TAMSULOSIN 0.4 MG CAP PO SCH (21:00)
--- NOTE | 2016-06-19 16:23 | ECGEPIP ---
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
--- NOTE | 2016-06-19 16:31 | ECGEPIP ---
Stationary ECG Study [facility] Test Date: 2016-06-17 Pat Name: JUANA ROMEO Department: Room: [place] [address] Gender: M Hall Porter: : 1960 Requested By: ECTOR DOVE Order Number: [id number] Reading MD: Semaj Bridges Measurements Intervals [place] Rate: 68 P: -3 ME: 158 QRS: -9 QRSD: 87 T: 48 QT: 413 QTc: 439 Interpretive Statements SINUS RHYTHM LOW LIMB VOLTAGE; BODY HABITUS? OTHERWISE NORMAL TRACING TAKEN EARLIER SAME DAY MISPLACED LIMB LEADS NO OTHER CHANGE Electronically Signed On 06-19-2016 16:31:30 EST by Semaj Bridges
--- NOTE | 2016-06-19 16:49 | ECGEPIP ---
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
--- NOTE | 2016-06-19 16:52 | ECGEPIP ---
Stationary ECG Study [facility] Test Date: 2016-06-18 Pat Name: JUANA ROMEO Department: Room: [place] [address] Gender: M [employer]: : 1960 Requested By: ECTOR DOVE Order Number: [id number] Reading MD: Semaj Bridges Measurements Intervals [place] Rate: 57 P: -5 AK: 171 QRS: -23 QRSD: 89 T: 29 QT: 439 QTc: 429 Interpretive Statements SINUS BRADYCARDIA BORDERLINE LEFT AXIS DEVIATION LOW VOLTAGES WITH PERSISTANT S WAVES V5 AND V6 BODY HABITUS VS PULMONARY DISEASE NO CHANGE FROM SERIAL TRACINGS SAME DAY Electronically Signed On 06-19-2016 16:51:57 EST by Semaj Bridges
== END 2016-06-18 14:58 ==
LOC: M ED 04:48 → M ED INP 09:07 → M PCU 11:41
PROVIDERS: ADMIT Internal Medicine; ATTEND Internal Medicine
DX: T44.6X2A Poisoning by alpha-adrenoreceptor antagonists, intentional self-harm, initial encounter (principal); T44.4X2A Poisoning by predominantly alpha-adrenoreceptor agonists, intentional self-harm, initial encounter; T47.1X2A Poisoning by other antacids and anti-gastric-secretion drugs, intentional self-harm, initial encounter; T39.012A Poisoning by aspirin, intentional self-harm, initial encounter; T50 Poisoning by, adverse effect of and underdosing of diuretics and other and unspecified drugs, medicaments and biological substances; T50.902A Poisoning by unspecified drugs, medicaments and biological substances, intentional self-harm, initial encounter; E11.21 Type 2 diabetes mellitus with diabetic nephropathy; I10 Essential (primary) hypertension; Z79.4 Long term (current) use of insulin; N40.0 Benign prostatic hyperplasia without lower urinary tract symptoms; K21.9 Gastro-esophageal reflux disease without esophagitis; F32.9 Major depressive disorder, single episode, unspecified; Z86.73 Personal history of transient ischemic attack (TIA), and cerebral infarction without residual deficits; J44.9 Chronic obstructive pulmonary disease, unspecified; Z86.14 Personal history of Methicillin resistant Staphylococcus aureus infection; B18.2 Chronic viral hepatitis C; Z79.82 Long term (current) use of aspirin; Z79.899 Other long term (current) drug therapy; F10.120 Alcohol abuse with intoxication, uncomplicated
CPT/HCPCS: 36415; 70450; 71010; 80053; 80306; 81001; 81002; 82550; 82553; 82803; 83605; 84133; 84443; 85027; 85610; 90471; 90686; 93005; 93041; 94640; 96375; 96376; 99285; C9113; G0480; J0610; J1200; J1630; J2405

== ENCOUNTER 2016-06-18 15:05 | Inpatient (IN) | payer SELFPAY ==
[~2016-06-18] VITALS: Ht 180.3 cm; Wt 91.8 kg
[~2016-06-18 15:05] MED LIST changes: +ASPI1TAB PO; +LANTINJ4 SC; +TRAZ25TA PO
[2016-06-18 15:17] VITALS: BP 148/87
[2016-06-18] MEDS ORDERED: IBUPROFEN 400 MG TAB PO PRN (17:00)
[2016-06-18] MEDS ORDERED: MOM 30ML SUSPENSION UDC PO PRN (17:00)
[2016-06-18] MEDS ORDERED: MAALOX 30 ML SUSP *UDC PO PRN (17:00)
[2016-06-18 18:00] VITALS: BP 152/85
[2016-06-18] MEDS: HumaLOG INSULIN (NovoLOG) PER UNIT SC SCH ×2 (18:12→20:30)
[2016-06-18] MEDS: ATORVASTATIN 10 MG TAB PO SCH (20:29)
[2016-06-18] MEDS: traZODone 50 MG TAB PO SCH (20:29)
[2016-06-18] MEDS: PREGABALIN 75 MG CAP(LYRICA) PO SCH (20:29)
[2016-06-18] MEDS: oxyCODONE 20 MG CR TAB PO SCH (20:29)
[2016-06-18] MEDS: TAMSULOSIN 0.4 MG CAP PO SCH (20:29)
[2016-06-18] MEDS: LEVEMIR (INSULIN DETEMIR) 1 UNITS/0.01ML SC SCH (20:29)
[2016-06-19] MEDS ORDERED: DEXTROSE 50% 50 ML SYRINGE IV PRN (06:30)
[2016-06-19] MEDS ORDERED: GLUCOSE 4 GM CHEW TABLET PO PRN (06:30)
[2016-06-19] MEDS ORDERED: GLUCAGON FOR INJ 1 MG VIAL (J1610) SC PRN (06:30)
[2016-06-19] MEDS: HumaLOG INSULIN (NovoLOG) PER UNIT SC SCH ×4 (06:33→21:00)
[2016-06-19 06:38] VITALS: BP 116/79
[2016-06-19] MEDS: ASPIRIN 81 MG ENTERIC TAB PO SCH (08:15)
[2016-06-19] MEDS: VITAMIN D 1,000 INTERNATIONAL UNITS TABLET PO SCH (08:15)
[2016-06-19] MEDS: LEVEMIR (INSULIN DETEMIR) 1 UNITS/0.01ML SC SCH ×2 (08:15→21:19)
[2016-06-19] MEDS: oxyCODONE 20 MG CR TAB PO SCH ×2 (08:16→21:18)
[2016-06-19] MEDS: PREGABALIN 75 MG CAP(LYRICA) PO SCH ×2 (08:16→21:19)
[2016-06-19] MEDS: OMEPRAZOLE 20 MG CAP PO SCH (08:16)
[2016-06-19] MEDS: LISINOPRIL 10 MG TAB PO SCH (08:16)
[2016-06-19] MEDS: CitaloPRAM (CeleXA) 20 MG TAB PO SCH (08:16)
--- NOTE | 2016-06-19 11:02 | HPEPDOC ---
Medical History and Physical Date of Admission Jun 18, 2016 at 15:05 History and Physical PCP: [facility] Clinic Infectious disease: Dr. Mcclendon ATTENDING: Dr. Eric Harrington HPI: Pt is a 55 yo M admitted to [facility] for MDD. Patient was admitted to [facility] from 06/16/16-06/18/16 related to alcohol use and overdose of medication including lisinopril, tamsulosin, omeprazole, vitamin D, atorvastatin, Carafate, aspirin, citalopram. Case was discussed with poison control. The patient was medically stabilized. He was treated with bicarbonate drip and activated charcoal. Patient was felt stable to transfer to [facility] 06/18/16. Denies any fevers, chills, weakness, fatigue, HERCULES, CP, SOB, cough, palpitations , abdominal pain, N/V/D or changes in bowel or bladder habits. PMHx: History of MRSA Insulin-dependent diabetes Depression H/O SI Hepatitis C treated with Harvoni-finished 12/27. History of CVA in October 2014 Hypertension COPD History of GI bleed History of Dupuytren's contractures of bilateral feet and left hand Diabetic neuropathy Degenerative disc disease Farsighted Hearing loss BPH Diverticulosis PSHX: Upper and lower teeth extraction Tonsillectomy Liver biopsy 2007 Dupuytren's contracture status post left hand repair SOCHX: Resides in: [place] Status: Employment: Disabled Tobacco use: Quit 10 years ago, 1 pack per day 20 years ETOH: Denies regular use. States he had a "few beers" on "New Years" Illicit Drugs: Denies IV Drug Use: Denies Tattoos done unprofessionally: Denies FAMHX: Mother: secondary to NC age 63 Father: secondary to CVA age 88 Siblings: One brother secondary to complications from diabetes age 64 Children: Alive, well Unexpected deaths due to medical reasons: As above, otherwise unremarkable ROS: As noted in HPI, otherwise 11pt ROS of systems reviewed and remarkable only for History of CVA in October with residual spatial problems for which he utilizes a cane. PE: GEN: 54yoM, appears stated age. Well-nourished, well developed. No acute distress. Alert and oriented x 3. Pleasant, interactive. HEENT: Normocephalic, atraumatic. Pupils are equal, round, and reactive to light. Extraocular movements are intact. No nystagmus appreciated. Sclera are nonicteric. Conjunctiva without injection. Nose midline. No facial asymmetry. Moist mucous membranes. Edentulous. Pharynx pink and moist, no cobblestoning. Neck supple, trachea midline. No lymphadenopathy or thyromegaly appreciated. CHEST: Regular rate and rhythm, +S1, +S2 LUNGS: Clear to auscultation bilaterally. No wheezes, rales, or rhonchi. Breathing appears symmetric and easy. Patient is speaking in full sentences. No accessory muscle use. ABD: Round, soft, non-tender, non-distended. +Bowel sounds throughout. No rebound or guarding. No costovertebral angle tenderness. EXT: There is ecchymosis noted right hand , left antecubital related to IV sites , no erythema/edema present. Pulses 2+ bilaterally dorsalis pedis and radial. No lower extremity edema appreciated. SKIN: [place], dry, warm. Capillary refill <2sec. No rashes. NEURO: Alert and oriented x 3. Cranial nerves III-XII are intact. No focal deficits appreciated. Ambulating without assistive devices. EK06/16/16 sinus rhythm, possible IWMI, indeterminate age, no change from 5:25 A&P: 54yoM admitted to [facility] for MDD 1. Psych. Plan per Psychiatry. EKG on file. 2. Abnormal TSH- Recheck TFTs. 3. Abnormal EKG. No cardiac signs or symptoms appreciated on exam, follow with PCP. 4. Follow up with [facility] clinic. 5. Unsteady gait/cane- PT to evaluate. 6. Insulin-dependent diabetes. CC diet. Levemir/SSI/ Hypoglycemia protocol 7. Hepatitis C with completion of Harvoni as per Dr. Mcclendon. 8. Hypertension. Continue with lisinopril. Blood pressures are stable. 9. COPD. Albuterol HFA 2 puffs every 4 hours as needed. 10. History of GI bleed. Continues with aspirin given history of CVA. Continue with Prilosec. 11. Diabetic neuropathy. Continue Lyrica. 12. Degenerative disc disease/Chronic pain. Cont Lyrica 225 mg BID/Oxycodone 20 mg BID. ISTOP Ref # [id number] #60 Oxycodone 20mg, #60 Lyrica 225mg dispensed as per [facility]. 13. History of CVA. aspirin 81 mg. Lipitor 10 mg daily. 14. BPH. Continue Flomax. 15. Thrombocytopenia-recheck CBC in AM. Vital Signs Vital Signs Label Value Date Time Patient Temperature 96.6 degrees F 06/19/16 0638 Temperature Source Tympanic 06/19/16 0638 Pulse 125 06/19/16 0638 Respiratory Rate 20 bpm 06/19/16 0638 Blood Pressure Assessment 116/79 (91) 06/19/16 0638 Laboratory Data Labs 24H Laboratory Tests 2 06/19/16 06:12: Bedside Glucose (Misc Panel) 153H CBC/BMP Item Value Date Time White Blood Count 6.9 K/mm3 06/16/16 1731 Red Blood Count 4.40 M/mm3 06/16/16 1731 Hemoglobin 13.8 g/dl L # 06/16/16 1731 Hematocrit 40.2 % L 06/16/16 1731 Mean Corpuscular Volume 91.4 fl 06/16/16 1731 Mean Corpuscular Hemoglobin 31.4 pg 06/16/16 1731 Mean Corpuscular Hemoglobin Concent 34.3 g/dl 06/16/16 1731 Red Cell Distribution Width 13.7 % 06/16/16 1731 Platelet Count 107 k/mm3 L 06/16/16 1731 Sodium Level 144 MEQ/L 06/17/16 1315 Potassium Level 3.5 MEQ/L 06/17/16 1315 Chloride Level 109 MEQ/L H 06/17/16 1315 Carbon Dioxide Level 25 MEQ/L 06/17/16 1315 Anion Gap 10 MEQ/L 06/17/16 1315 Blood Urea Nitrogen 8 MG/DL 06/17/16 1315 Creatinine 1.24 MG/DL 06/17/16 1315 Glomerular Filtration Rate > 60.0 06/17/16 1315 Fasting Glucose 283 MG/DL H 06/17/16 1315 Calcium Level 8.2 MG/DL L 06/17/16 1315 Salicylates Level 20.2 MG/DL 06/17/16 0518 FSBS Laboratory Tests Test 06/19/16 06:12 Range/Units Bedside Glucose (Misc Panel) 153 70-105 MG/DL Home Medications Scheduled Aspirin (Aspirin 81) 81 Mg Tab 81 MG PO DAILY Atorvastatin Calcium (Atorvastatin Calcium) 10 Mg Tab 10 MG PO QHS Cholecalciferol (Vitamin D) 1,000 Unit Tab 1,000 UNIT PO DAILY Citalopram Hydrobromide (Celexa) 20 Mg Tab 20 MG PO DAILY Insulin Glargine (Lantus Solostar) 100 Unit/Ml Inj 50 UNITS SC BID Insulin Human Lispro (Humalog) 1 Units/0.01 Ml Inj 1 DOSE SC ACHS Lisinopril (Lisinopril) 10 Mg Tab 10 MG PO DAILY Omeprazole (Omeprazole) 20 Mg Cap 20 MG PO DAILY Oxycodone HCl (Oxycontin) 20 Mg Tab 20 MG PO Q12H Pregabalin (Lyrica) 225 Mg Cap 225 MG PO BID Tamsulosin Hydrochloride (Flomax) 0.4 Mg Cap 0.4 MG PO QPM Trazodone HCl (Trazodone HCl) 50 Mg Tab 50 MG PO QHS Allergies Coded Allergies: Diazepam (Verified Allergy, Unknown, 11/01/13) TAPE (Verified Allergy, Unknown, 12/02/13) Midazolam (Verified Adverse Reaction, Intermediate, "GO CRAZY", 02/15/13) Radha Burdick Jun 19, 2016 11:02
[2016-06-19] MEDS ORDERED: ALBUTEROL 90 MCG/ACT 8GM HFA INHALER INH PRN (11:15)
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
[2016-06-19 18:00] VITALS: BP 134/89
[2016-06-19] MEDS: ATORVASTATIN 10 MG TAB PO SCH (21:18)
[2016-06-19] MEDS: TAMSULOSIN 0.4 MG CAP PO SCH (21:19)
[2016-06-19] MEDS: traZODone 50 MG TAB PO SCH (21:19)
[2016-06-20 06:41] VITALS: BP 148/82
[2016-06-20] MEDS: HumaLOG INSULIN (NovoLOG) PER UNIT SC SCH ×4 (06:45→20:14)
[2016-06-20 07:02] LABS: BASO % 0.4 % (0.0-1.0); EOS # 0.2 K/mm3 (0.0-0.50); EOS % 2.4 % (0.0-3.0); LARGE UNSTAINED CELL # 0.4 K/mm3 (0.0-0.4); LARGE UNSTAINED CELL % 4.4 % (0.0-4.0); LYMPH # 2.6 K/mm3 (1.5-4.5); LYMPH % 29.8 % (24.0-44.0); MEAN CORPUSCULAR HEMOGLOBIN 31.3 pg (27.0-33.0); MEAN CORPUSCULAR HGB CONC 34.2 g/dl (32.0-36.5); MEAN CORPUSCULAR VOLUME 91.3 fl (80.0-96.0); MONO # 0.6 K/mm3 (0.0-0.8); MONO % 7.5 % (0.0-5.0); NEUTROPHILS # 4.8 K/mm3 (1.8-7.7); NEUTROPHILS % 55.6 % (36.0-66.0); PLATELET COUNT, AUTOMATED 153 k/mm3 (150-450); RED CELL DISTRIBUTION WIDTH 12.6 % (11.5-14.5); WHITE BLOOD COUNT 8.6 K/mm3 (4.0-10.0)
[2016-06-20 07:29] LABS: ANION GAP 14 MEQ/L (8-16); BLOOD UREA NITROGEN 14 MG/DL (7-18); CALCIUM LEVEL 8.9 MG/DL (8.5-10.1); CARBON DIOXIDE LEVEL 24 MEQ/L (21-32); CHLORIDE LEVEL 104 MEQ/L (98-107); GLOMERULAR FILTRATION RATE > 60.0 (>56); GLUCOSE, FASTING 191 MG/DL (70-105); POTASSIUM SERUM 3.7 MEQ/L (3.5-5.1); SODIUM LEVEL 142 MEQ/L (136-145); T UPTAKE 36 % (33-40); THYROXINE (T4) 10.6 UG/DL (4.5-12.0)
[2016-06-20] MEDS: oxyCODONE 20 MG CR TAB PO SCH ×2 (08:10→20:18)
[2016-06-20] MEDS: ASPIRIN 81 MG ENTERIC TAB PO SCH (08:11)
[2016-06-20] MEDS: OMEPRAZOLE 20 MG CAP PO SCH (08:11)
[2016-06-20] MEDS: VITAMIN D 1,000 INTERNATIONAL UNITS TABLET PO SCH (08:11)
[2016-06-20] MEDS: CitaloPRAM (CeleXA) 20 MG TAB PO SCH (08:11)
[2016-06-20] MEDS: LISINOPRIL 10 MG TAB PO SCH (08:11)
[2016-06-20] MEDS: LEVEMIR (INSULIN DETEMIR) 1 UNITS/0.01ML SC SCH ×2 (08:11→20:17)
[2016-06-20] MEDS: PREGABALIN 75 MG CAP(LYRICA) PO SCH ×2 (08:13→20:13)
[2016-06-20 18:26] VITALS: BP 109/68
[2016-06-20] MEDS: TAMSULOSIN 0.4 MG CAP PO SCH (20:12)
[2016-06-20] MEDS: ATORVASTATIN 10 MG TAB PO SCH (20:12)
[2016-06-20] MEDS: traZODone 50 MG TAB PO SCH (20:12)
--- NOTE | 2016-06-20 22:30 | IPNPDOC ---
[facility] Progress Note Progress Note DATE: 06/20/16 HISTORY: This admission is another for this patient due to an intentional overdose. Patient has had multiple admissions for overdose, suicidal ideation and attempt, alcohol intoxication, depression and mood disorder. Patient states he is overdosed at least 4 times. This public relations writer does not find this evident in the records. Patient states he overdosed on his morning meds by taking all 7 days at once, requiring this admission. Patient again states the decision to overdose was instantaneous with no prior thought. Patient feels his continuing back and stomach problems contributed to this admission as well. He had not given any thought to suicide prior to this. Patient feels he has had increased stress presently due to his 's mother dying (she has subsequently since he was admitted), his brother has to have a CABG, personal finances. Patient feels that this hospital is a safe place and states "it's like taking a vacation". VITAL SIGNS: 96.4 110 20 148/82. NEW TEST RESULTS: FBS by fingerstick, 210, 202. Discussed results with patient. CURRENT MEDICATIONS: See below. MENTAL STATUS EXAMINATION: Patient is a 55-year-old male, who is pleasant, cooperative, of normal weight with an unsteady gait. Patient does use a cane to ambulate. Speech: Is tangential, circumstantial, at appropriate rate, volume. Patient articulates well. Patient appears to be coherent and spontaneous. Thought processes: Are occasionally clear and somewhat goal directed. Rate of thoughts: Normal. Thought content: Paranoia is not evident. Statements are mostly logical with continuing redirection. Abstract reasoning: Patient is having trouble currently with this, no improvement from yesterday. Computation: Patient is able to do this at a slower pace. Associations: Patient is mostly intact with some tangential and circumstantial variation's. Abnormal or psychotic thoughts: Patient denies any hallucinations, delusions, preoccupations, obsessions. Patient currently has no homicidal or suicidal ideations. Judgment: Fair Insight: Poor Oriented to: Patient is oriented to time, place, person and surroundings. Recent and Remote Memory: Patient denies any issues with his immediate, short- term or long-term memory. Attention Span and Concentration: Fair. Patient continually looks out in the jasso and seems to be distracted at times. Patient denies any distractions when asked by this public relations writer. Language: Normal. Fund of knowledge: Adequate. Mood: Neutral. Patient states "good - It's getting better each day". Affect: Appropriate. DIAGNOSES: Alcohol use disorder, Depression, Chronic pain. ASSESSMENT: Pt. is continuing to improve each day. Pt. states "I am done with alcohol, I already told my ". Pt. staes "I fell asleep well last night, but only stayed asleep for 4.5 hours. "Will continue to evaluate patient's response to trazodone 50 mg po q hs prn for sleep, Citalopram 20 mg po q am. MANAGEMENT PLAN: Patient to be continued on current meds of citalopram 20 mg by mouth every morning, trazodone 50 mg by mouth when necessary daily at bedtime for sleep. Maintain safety precautions. Patient to continue to attend groups and participate in unit programming to develop coping strategies. Patient to remain engaged in discharge planning process to ensure safe and effective discharge plan. Patient to follow up with PCP, GI, pain MDs upon discharge, consider therapy. Patient encouraged to consider water based exercise. Vital Signs Vital Sign - Last 24 Hours 06/20/16 06/20/16 06/20/16 06/20/16 06:41 08:10 08:11 18:26 Temp 96.4 96.7 Pulse 110 115 Resp 20 16 18 B/P 148/82 124/75 109/68 06/20/16 20:18 Pulse 72 Resp 18 Laboratory Data 24H Labs Laboratory Tests 2 06/20/16 06:13: Bedside Glucose (Misc Panel) 179H 06/20/16 06:28: Anion Gap 14, White Blood Count 8.6, Red Blood Count 4.99, Hemoglobin 15.6, Hematocrit 45.6, Mean Corpuscular Volume 91.3, Mean Corpuscular Hemoglobin 31.3 , Mean Corpuscular Hemoglobin Concent 34.2, Red Cell Distribution Width 12.6, Platelet Count 153, Neutrophils (%) (Auto) 55.6, Lymphocytes (%) (Auto) 29.8, Monocytes (%) (Auto) 7.5H, Eosinophils (%) (Auto) 2.4, Basophils (%) (Auto) 0.4 , Neutrophils # (Auto) 4.8, Lymphocytes # (Auto) 2.6, Monocytes # (Auto) 0.6, Eosinophils # (Auto) 0.2, Basophils # (Auto) 0.0, Blood Urea Nitrogen 14#, Creatinine 0.90, Sodium Level 142, Potassium Level 3.7, Chloride Level 104, Carbon Dioxide Level 24, Calcium Level 8.9, Free Thyroxine Index 3.8, Glomerular Filtration Rate > 60.0, Large Unclassified Cells # 0.4, Large Unclassified Cells % 4.4H, Thyroid Stimulating Hormone (TSH) 1.040, Thyroxine ( T4) 10.6, Triiodothyronine (T3) Uptake 36 06/20/16 11:56: Bedside Glucose (Misc Panel) 209H 06/20/16 16:56: Bedside Glucose (Misc Panel) 202H 06/20/16 20:12: Bedside Glucose (Misc Panel) 191H Current Medications Current Medications Al Hydrox/Mg Hydrox/Simethicone (Mylanta) 30 ml Q4HP PRN PO HEARTBURN/ INDIGESTION; Start 06/18/16 at 17:00; Stop 07/18/16 at 16:59 Albuterol Sulfate (Proventil, Ventolin Hfa) 2 puff Q4HP PRN INH SHORTNESS OF BREATH; Start 06/19/16 at 11:15; Stop 07/19/16 at 11:14 Aspirin (Ecotrin) 81 mg DAILY PO Last administered on 06/20/16 08:11; Start 06/19/16 at 09:00; Stop 07/19/16 at 08:59 Atorvastatin Calcium (Lipitor) 10 mg QHS PO Last administered on 06/20/16 20:12 ; Start 06/18/16 at 21:00; Stop 07/18/16 at 20:59 Citalopram Hydrobromide (CeleXA) 20 mg DAILY PO Last administered on 06/20/16 08:11; Start 06/19/16 at 09:00; Stop 07/19/16 at 08:59 Dextrose (Dextrose 50%) 25 ml ASDIRECTED PRN IV SEE LABEL COMMENTS; Start at 06:30; Stop 07/19/16 at 06:29 Glucagon (Glucagon) 1 mg ASDIRECTED PRN SC SEE LABEL COMMENTS; Start 06/19/16 at 06:30; Stop 07/19/16 at 06:29 Glucose (Glucose) 16 GM ASDIRECTED PRN PO SEE LABEL COMMENTS; Start 06/19/16 at 06:30; Stop 07/19/16 at 06:29 Home Med (Med Rec Complete!) ASDIRECTED XX ; Start 06/18/16 at 17:15; Stop at 17:19; Status DC Ibuprofen (Advil) 400 mg Q6HP PRN PO PAIN; Start 06/18/16 at 17:00; Stop at 16:59 Insulin Detemir (Levemir Insulin) 50 units BID SC Last administered on 20:17; Start 06/18/16 at 21:00; Stop 07/18/16 at 20:59 Insulin Human Lispro (HumaLOG INSULIN) See Protocol Table AC SC Last administered on 06/20/16 16:59; Start 06/19/16 at 07:30; Stop 07/19/16 at 07:29 Insulin Human Lispro (HumaLOG INSULIN) See Protocol Table QHS SC ; Start at 21:00; Stop 07/19/16 at 20:59 Insulin Human Lispro (HumaLOG INSULIN) per [facility] Sliding Scale ACHS SC Last administered on 06/18/16 18:12; Start 06/18/16 at 17:30; Stop 06/19/16 at 06:32; Status DC Lisinopril (Prinivil) 10 mg DAILY PO Last administered on 06/20/16 08:11; Start 06/19/16 at 09:00; Stop 07/19/16 at 08:59 Magnesium Hydroxide (Milk Of Magnesia) 30 ml DAILYPRN PRN PO CONSTIPATION; Start 06/18/16 at 17:00; Stop 07/18/16 at 16:59 Omeprazole (PriLOSEC) 20 mg DAILY PO Last administered on 06/20/16 08:11; Start 06/19/16 at 09:00; Stop 07/19/16 at 08:59 Oxycodone HCl (OxyCONTIN) 20 mg BID PO Last administered on 06/20/16 20:18; Start 06/18/16 at 21:00; Stop 06/25/16 at 20:59 Pregabalin (Lyrica) 225 mg BID PO Last administered on 06/20/16 20:13; Start at 21:00; Stop 06/25/16 at 20:59 Tamsulosin HCl (Flomax) 0.4 mg QHS PO Last administered on 06/20/16 20:12; Start 06/18/16 at 21:00; Stop 07/18/16 at 20:59 Trazodone HCl (Desyrel) 50 mg QHS PO Last administered on 06/20/16 20:12; Start 06/18/16 at 21:00; Stop 07/18/16 at 20:59 Vitamin D (Vitamin D) 1,000 units DAILY PO Last administered on 06/20/16 08:11 ; Start 06/19/16 at 09:00; Stop 07/19/16 at 08:59 Allergies Coded Allergies: Diazepam (Verified Allergy, Unknown, 11/01/13) TAPE (Verified Allergy, Unknown, 12/02/13) Midazolam (Verified Adverse Reaction, Intermediate, "GO CRAZY", 02/15/13) RADHA HUSSEIN NP Jun 20, 2016 22:30 GRACIA GODFREY MD Jun 22, 2016 11:26
[2016-06-21 06:52] VITALS: BP 123/78
[2016-06-21] MEDS: HumaLOG INSULIN (NovoLOG) PER UNIT SC SCH ×4 (06:54→20:38)
[2016-06-21] MEDS: LISINOPRIL 10 MG TAB PO SCH (08:09)
[2016-06-21] MEDS: OMEPRAZOLE 20 MG CAP PO SCH (08:09)
[2016-06-21] MEDS: LEVEMIR (INSULIN DETEMIR) 1 UNITS/0.01ML SC SCH ×2 (08:09→20:37)
[2016-06-21] MEDS: PREGABALIN 75 MG CAP(LYRICA) PO SCH ×2 (08:09→20:37)
[2016-06-21] MEDS: CitaloPRAM (CeleXA) 20 MG TAB PO SCH (08:09)
[2016-06-21] MEDS: ASPIRIN 81 MG ENTERIC TAB PO SCH (08:09)
[2016-06-21] MEDS: VITAMIN D 1,000 INTERNATIONAL UNITS TABLET PO SCH (08:09)
[2016-06-21] MEDS: oxyCODONE 20 MG CR TAB PO SCH ×2 (08:10→20:37)
[2016-06-21 18:00] VITALS: BP 133/83
[2016-06-21] MEDS: traZODone 50 MG TAB PO SCH (20:37)
[2016-06-21] MEDS: ATORVASTATIN 10 MG TAB PO SCH (20:37)
[2016-06-21] MEDS: TAMSULOSIN 0.4 MG CAP PO SCH (20:37)
--- NOTE | 2016-06-22 01:47 | IPN ---
DATE: 06/21/2016 SUBJECTIVE: The patient is seen in his fourth day of inpatient hospital admission and treatment reviewed. He was admitted through the medical [facility], where he was first diagnosed with depressive disorder and currently on citalopram 30 mg orally daily. He reports today that he is doing pretty fine and taking his medication, that he is sleeping better and feels good. No new complaints presented. OBJECTIVE: His vital signs are stable with a blood pressure of 123/78, pulse 94, respirations 16, and temperature 98.7. He is observed interacting normally with his peers, attending groups and not presenting with any management difficulties. He is tolerating his medication and no adverse medication related events. He denies suicidal or homicidal thoughts, plan, or intent. His mood continues to show improvement. PLAN: He will be continued the current medication and will be reassessed in the next 24-48 hours, and if stable, will be scheduled for discharge with appropriate followup plan. ALPA
[2016-06-22] MEDS: HumaLOG INSULIN (NovoLOG) PER UNIT SC SCH ×4 (06:30→20:12)
[2016-06-22 06:40] VITALS: BP 141/78
[2016-06-22] MEDS: PREGABALIN 75 MG CAP(LYRICA) PO SCH ×2 (08:03→20:11)
[2016-06-22] MEDS: OMEPRAZOLE 20 MG CAP PO SCH (08:03)
[2016-06-22] MEDS: CitaloPRAM (CeleXA) 20 MG TAB PO SCH (08:04)
[2016-06-22] MEDS: VITAMIN D 1,000 INTERNATIONAL UNITS TABLET PO SCH (08:04)
[2016-06-22] MEDS: ASPIRIN 81 MG ENTERIC TAB PO SCH (08:04)
[2016-06-22] MEDS: LISINOPRIL 10 MG TAB PO SCH (08:04)
[2016-06-22] MEDS: oxyCODONE 20 MG CR TAB PO SCH ×2 (08:05→20:12)
[2016-06-22] MEDS: LEVEMIR (INSULIN DETEMIR) 1 UNITS/0.01ML SC SCH ×2 (08:05→20:11)
[2016-06-22 18:40] VITALS: BP 118/72
[2016-06-22] MEDS: traZODone 50 MG TAB PO SCH (20:11)
[2016-06-22] MEDS: TAMSULOSIN 0.4 MG CAP PO SCH (20:11)
[2016-06-22] MEDS: ATORVASTATIN 10 MG TAB PO SCH (20:11)
--- NOTE | 2016-06-22 22:25 | IPN ---
DATE: 06/22/2016 SUBJECTIVE: The patient is seen today in his 5th of inpatient hospital admission. His treatment is reviewed. He states I'm doing pretty good. The medications are working. I really don't want to change anything. He reports no medication related adverse events. He states he slept well through the night. No new problems reported. OBJECTIVE: Vital signs are relatively stable. Blood pressure 141/78, pulse 98 , respirations 16 and temperature 96.6. He is noted to socialize relatively well with his peers. He is calm, he is cooperative. No evidence of EPS or tardive dyskinesia. His mood is noted significantly less depressed. No psychotic features evident and he denies suicidal thoughts, plans or intent, as well as homicidal ideation. PLAN: He will be continued on the current treatment and reassessed in 24 hours. If he continues to maintain treatment stability, he will be scheduled for discharge. Ongoing assessment and supportive therapy. ALPA
[2016-06-23] MEDS: HumaLOG INSULIN (NovoLOG) PER UNIT SC SCH ×2 (06:36→12:00)
[2016-06-23 06:41] VITALS: BP 143/79
[2016-06-23 08:12] VITALS: BP 134/81
[2016-06-23] MEDS: CitaloPRAM (CeleXA) 20 MG TAB PO SCH (08:12)
[2016-06-23] MEDS: OMEPRAZOLE 20 MG CAP PO SCH (08:12)
[2016-06-23] MEDS: LEVEMIR (INSULIN DETEMIR) 1 UNITS/0.01ML SC SCH (08:12)
[2016-06-23] MEDS: LISINOPRIL 10 MG TAB PO SCH (08:12)
[2016-06-23] MEDS: PREGABALIN 75 MG CAP(LYRICA) PO SCH (08:12)
[2016-06-23] MEDS: VITAMIN D 1,000 INTERNATIONAL UNITS TABLET PO SCH (08:12)
[2016-06-23] MEDS: ASPIRIN 81 MG ENTERIC TAB PO SCH (08:12)
[2016-06-23] MEDS: oxyCODONE 20 MG CR TAB PO SCH (08:13)
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
== END 2016-06-23 12:15 | disposition home or self-care (01) | DRG 754 ==
LOC: M PSY 15:05
PROVIDERS: ADMIT Psychiatry & Neurology Psychiatry; ATTEND Psychiatry & Neurology Psychiatry
DX: F32.9 Major depressive disorder, single episode, unspecified (principal); E11.40 Type 2 diabetes mellitus with diabetic neuropathy, unspecified; D69.6 Thrombocytopenia, unspecified; J44.9 Chronic obstructive pulmonary disease, unspecified; F10.10 Alcohol abuse, uncomplicated; I10 Essential (primary) hypertension; N40.0 Benign prostatic hyperplasia without lower urinary tract symptoms; Z79.82 Long term (current) use of aspirin; Z79.899 Other long term (current) drug therapy; M51.36 Other intervertebral disc degeneration, lumbar region; Z86.73 Personal history of transient ischemic attack (TIA), and cerebral infarction without residual deficits; R26.89 Other abnormalities of gait and mobility

== ENCOUNTER 2016-07-11 02:29 | Inpatient (IN) | payer MEDICAID, SELFPAY ==
[~2016-07-11] VITALS: Ht 180.3 cm; Wt 90.7 kg
[2016-07-11] VITALS (7 sets, daily range): BP systolic 90–130; BP diastolic 55–79
[~2016-07-11 02:29] MED LIST changes: -PRIL20CA PO; +PRIL20CA9 PO
[2016-07-11 03:15] LABS: MEAN CORPUSCULAR HGB CONC 34.3 g/dl (32.0-36.5); MEAN CORPUSCULAR VOLUME 90.4 fl (80.0-96.0); RED CELL DISTRIBUTION WIDTH 12.2 % (11.5-14.5)
[2016-07-11] MEDS ORDERED: HALOPERIDOL 5 MG/ML VIAL (J1630) As Ordered ONE ×2 (03:16→03:42)
[2016-07-11] MEDS ORDERED: diphenhydrAMINE INJ 50MG/ML VIAL (J1200) As Ordered ONE (03:16)
[2016-07-11 03:56] LABS: ALBUMIN 3.8 GM/DL (3.2-5.2); ALBUMIN/GLOBULIN RATIO 1.09 (1.00-1.93); ALKALINE PHOSPHATASE 73 U/L (45-117); ALT/SGPT 24 U/L (12-78); ANION GAP 12 MEQ/L (8-16); AST/SGOT 16 U/L (15-37); BILIRUBIN,DIRECT 0.1 MG/DL (0.0-0.2); BILIRUBIN,TOTAL 0.3 MG/DL (0.2-1.0); BLOOD UREA NITROGEN 8 MG/DL (7-18); CALCIUM LEVEL 8.6 MG/DL (8.5-10.1); CARBON DIOXIDE LEVEL 25 MEQ/L (21-32); CHLORIDE LEVEL 105 MEQ/L (98-107); CREATININE FOR GFR 0.71 MG/DL (0.70-1.30); GLOMERULAR FILTRATION RATE > 60.0 (>56); GLUCOSE, FASTING 184 MG/DL (70-105); POTASSIUM SERUM 3.4 MEQ/L (3.5-5.1); SODIUM LEVEL 142 MEQ/L (136-145); TOTAL PROTEIN 7.3 GM/DL (6.4-8.2)
[2016-07-11 04:34] LABS: AMPHETAMINES LEVEL URINE NEGATIVE (NEGATIVE); BENZODIAZEPINES URINE NEGATIVE (NEGATIVE); COCAINE METABOLITE URINE NEGATIVE (NEGATIVE); METHADONE URINE NEGATIVE (NEGATIVE); OPIATES URINE POSITIVE (NEGATIVE); TRICYCLIC ANTIDEPRESS URINE NEGATIVE (NEGATIVE)
[2016-07-11 04:35] LABS: CONTROL LINE INT CTR LINE PRESENT
[2016-07-11] MEDS ORDERED: D10W 1,000 ML IV SCH (04:45)
[2016-07-11] MEDS ORDERED: OLANZapine INTRAMUSCULAR 10 MG VIAL (S0166) As Ordered ONE (04:57)
[2016-07-11] MEDS ORDERED: MORPHINE 4 MG/ML 1ML SYRINGE As Ordered ONE (05:14)
[2016-07-11] MEDS ORDERED: FLOM5CAP PO (06:11)
[2016-07-11] MEDS ORDERED: ZOFR20TA PO (06:11)
[2016-07-11] MEDS ORDERED: INSUHUMDS SC (06:11)
[2016-07-11] MEDS ORDERED: CARA1TAB2 PO (06:11)
[2016-07-11] MEDS ORDERED: ASPI81TAEC PO (06:11)
[2016-07-11] MEDS ORDERED: ATOR1TAB19 PO (06:11)
[2016-07-11] MEDS ORDERED: MECL-68 PO (06:11)
[2016-07-11] MEDS ORDERED: OMEP20CA3 PO (06:11)
[2016-07-11] MEDS ORDERED: VITA100066 PO (06:11)
[2016-07-11] MEDS ORDERED: LISI10TA4 PO (06:11)
[2016-07-11] MEDS ORDERED: LYRI225C PO (06:11)
[2016-07-11] MEDS ORDERED: MIRA3350 PO (06:11)
[2016-07-11] MEDS ORDERED: CITA20TA4 PO (06:11)
[2016-07-11] MEDS ORDERED: TRAZ50TA4 PO (06:11)
[2016-07-11] MEDS ORDERED: OXYC20TA21 PO (06:11)
[2016-07-11] MEDS ORDERED: INSULANT SC (06:11)
[2016-07-11] MEDS ORDERED: ONDANSETRON 4 MG TAB (S0181) PO PRN (06:45)
[2016-07-11] MEDS ORDERED: MECLIZINE 25 MG TABLET PO PRN (06:45)
[2016-07-11] MEDS ORDERED: MIRALAX *UNIT DOSE* 17GM PACKET PO PRN (06:45)
[2016-07-11] MEDS ORDERED: POTASSIUM CHLORIDE 10 MEQ SR TABLET PO ONE (07:00)
--- NOTE | 2016-07-11 07:28 | EDDOCDS ---
Physician Documentation [facility] Name: German Diaz Age: 55 yrs Sex: Male : 1960 Arrival Date: 07/11/2016 Time: 02:29 Bed 3 Private MD: Disposition: 07/11/16 05:22 Hospitalization ordered by Alla Mckeon for Inpatient Admission. Preliminary diagnosis are Hypoglycemia, unspecified, Adverse effect of insulin and oral hypoglycemic [antidiabetic] drugs, Alcohol abuse with intoxication, Opioid dependence. - Bed requested for M ICU. - Status is Inpatient Admission. ml6 - Condition is Stable. - Problem is an ongoing problem. - Symptoms have improved. Historical: - Allergies: Versed (hallucinations); - Home Meds: 1. aspirin 81 mg Oral chew once daily 2. atorvastatin 10 mg oral tab 1 tab once daily 3. Carafate 1 gram Oral tab 4 times per day 4. citalopram 20 mg Oral tab 1 tab once daily 5. Flomax 0.4 mg Oral cp24 1 cap once daily 6. Humalog 100 unit/mL Sub-Q crtg 100 unit/mL sliding scale before meals 48 units (Last dose: 07/11/2016 01:45) 7. Lantus 100 unit/mL Sub-Q soln 85 units twice a day 50 units (Last dose: 07/11/2016 01:45) 8. lisinopril 10 mg Oral tab 1 tab once daily 9. Lyrica 225mg Oral 2 times per day 10. omeprazole 20 mg Oral cpDR 1 cap once daily 11. OxyContin 20 mg Oral Tb12 1 tab every 12 hours ran out yesterday 12. Vitamin D Oral 1000 unit daily 13. Zofran (as hydrochloride) 4 mg Oral tab every 6 hours - PMHx: Chronic Pain; Depression; Diabetes - IDDM: controlled; Hepatitis C; HTN; previous suicide attempt; - PSHx: colonscopy; endocscopy; Tonsillectomy; Adenoidectomy; left hand; - Social history: Smoking status: Patient states former smoker of tobacco. Patient uses alcohol weekly. No barriers to communication noted, The patient speaks fluent Zambian. - Family history: Not pertinent. - : The pt / caregiver states he / she is not on anticoagulants. Home medication list is obtained from the patient. - Exposure Risk Screening:: None identified. Vital Signs: 07/11 02:38 BP 126 / 86; Pulse 101; Resp 20; Pulse Ox 96% on R/A; Weight 89.36 kg / 197.01 lbs (M); [facility] Height 5 ft. 11 in. (180.34 cm); Pain 10/10; 02:42 Temp 98.8(TE); mlc 03:20 BP 126 / 81 (auto/); mlc 03:21 Pulse 109 MON; Pulse Ox 93% ; mlc 03:30 BP 125 / 85 (auto/); mlc 03:30 Pulse 110 MON; mlc 03:42 Pulse 112 MON; mlc 03:43 Pulse 113 MON; mlc 03:45 BP 115 / 69 (auto/); mlc 04:08 BP 138 / 89 (auto/); nn1 04:10 Pulse 112 MON; Pulse Ox 96% ; nn1 04:14 Pulse 106 MON; Pulse Ox 94% ; nn1 04:15 BP 139 / 77 (auto/); nn1 04:15 Pulse 106 MON; nn1 04:30 BP 144 / 82 (auto/); nn1 04:30 Pulse 130 MON; Pulse Ox 97% ; nn1 04:45 BP 159 / 91 (auto/); nn1 04:45 Pulse 128 MON; nn1 05:00 BP 143 / 81 (auto/); nn1 05:00 Pulse 118 MON; nn1 05:15 BP 134 / 80 (auto/); nn1 05:15 Pulse 117 MON; Pulse Ox 96% ; nn1 07:00 BP 116 / 67 (auto/); ml6 07:00 Pulse 102 MON; Resp 16; Pulse Ox 98% on R/A; Pain 0/10; ml6 07:15 BP 116 / 79 (auto/); ml6 07:15 Pulse 106 MON; Resp 16; Temp 98.7(O); Pulse Ox 98% on R/A; Pain 0/10; ml6 02:38 Body Mass Index 27.48 (89.36 kg, 180.34 cm) [facility] MDM: 02:54 Accucheck hourly ordered. cs11 02:54 Consult PFS/PSA/County Tax Assessor ordered. cs11 02:54 Consult PFS/PSA/County Tax Assessor: Patient's case requires discussion with on-call cs11 Psychiatrist ordered. 02:54 PSA/PFS to call Nursing Disk Recordist, to enter patient data on [place] Safe Act if patient cs11 involuntarily admitted or transferred for SI or HI ordered. 02:54 Confirm accurate psychiatric medication list and times of last dosage ordered. cs11 02:54 Detain Pt Until Medically/PFS Cleared ordered. cs11 02:55 Acetaminophen Level Ordered. EDMS 02:55 Basic Metabolic Profile Ordered. EDMS 02:55 Complete Blood Count Ordered. EDMS 02:55 Drug Eval Toxicology ED Only Ordered. EDMS 02:55 Ethyl Alcohol (ethanol) Ordered. EDMS 02:55 Liver Profile Ordered. EDMS 02:55 Salicylate Level Ordered. EDMS 02:55 Thyroid Stimulating Hormone Ordered. EDMS 03:14 -Haloperidol Lactate 5 mg IM once ordered. cs11 03:14 diphenhydrAMINE 50 mg IM once ordered. cs11 03:36 Fingerstick Blood Sugar Ordered. EDMS 03:38 -Haloperidol Lactate 5 mg IM once ordered. cs11 04:10 Fingerstick Blood Sugar Reviewed. cs11 04:10 Acetaminophen Level Reviewed. cs11 04:10 Basic Metabolic Profile Reviewed. cs11 04:10 Ethyl Alcohol (ethanol) Reviewed. cs11 04:10 Salicylate Level Reviewed. cs11 04:10 Thyroid Stimulating Hormone Reviewed. cs11 04:10 Fingerstick Blood Sugar Reviewed. cs11 04:10 Complete Blood Count Reviewed. cs11 04:10 Liver Profile Reviewed. cs11 04:24 Financial registration complete. pm4 04:25 [facility] Payment Agreement was scanned into IPG and attached to record. pm4 04:29 IV Saline Lock ordered. cs11 04:29 D10 in Water 1 vials IV at 100 mL/hr continuous ordered. cs11 04:36 Fingerstick Blood Sugar Ordered. EDMS 04:55 OLANZapine 10 mg IM once ordered. cs11 04:56 BED REQUEST+ADM ordered. EDMS 05:02 Fingerstick Blood Sugar Ordered. EDMS 05:11 morphine 4 mg IVP once ordered. cs11 05:33 Admission / Observation Status ordered. EDMS 05:37 Fingerstick Blood Sugar Ordered. EDMS 06:55 CONSISTENT CARBOHYDRATES ordered. EDMS Point of Care Testing: Blood Glucose: 02:38 Blood Glucose: 228 mg/dL; mlc 03:30 Blood Glucose: 124 mg/dL; mlc 05:30 Blood Glucose: 105 mg/dL; nn1 06:29 Blood Glucose: 81 mg/dL; nn1 Ranges: Administered Medications: 03:20 Drug: diphenhydrAMINE 50 mg [diphenhydramine 50 mg/mL injection solution (1 mL)] Route: mlc IM; Site: right gluteus; 03:21 Drug: -Haloperidol Lactate 5 mg [haloperidol lactate 5 mg/mL injection solution (1 mL)] [facility] Route: IM; Site: right gluteus; 03:45 Drug: -Haloperidol Lactate 5 mg [haloperidol lactate 5 mg/mL injection solution (1 mL)] [facility] Route: IM; Site: right deltoid; 04:55 Drug: D10 in Water 1 vials [dextrose 10 % in water (D10W) intravenous solution] Route: nn1 IV; Rate: 100 mL/hr; Site: right antecubital; 05:02 Drug: OLANZapine 10 mg [olanzapine 10 mg intramuscular solution (10 mg)] Route: IM; nn1 Site: left gluteus; 05:17 Drug: morphine 4 mg [morphine (PF) 1 mg/mL injection solution (4 mL)] Route: IVP; Site: nn1 right antecubital; Signatures: Dispatcher [employer] EDNatalya Camacho RN RN Julian Villa RN RN ml6 Anton Kelly DO DO cs11 Yudi Moore RN RN Missael Whatley, Jong Reg pm4 Toni Spain RN nn1 The chart was reviewed and I authenticate all verbal orders and agree with the evaluation and treatment provided.Attachments: 04:25 [facility] Payment Agreement pm4 MTDD
--- NOTE | 2016-07-11 07:29 | EDDOCDS ---
Nurse's Notes [facility] Name: German Diaz Age: 55 yrs Sex: Male : 1960 Arrival Date: 07/11/2016 Time: 02:29 Bed 3 Private MD: Diagnosis: Hypoglycemia, unspecified;Adverse effect of insulin and oral hypoglycemic [antidiabetic] drugs;Alcohol abuse with intoxication;Opioid dependence Presentation: 07/11 02:40 Presenting complaint: Patient states: pt states his called police because she mlc possibly thought that pt overdosed on insulin. pt denies taking extra insulin. Mental Health Triage Level: Level 2: The patient is visibly agitated and appears to be potentially at risk. Adult Sepsis Screening: The patient does not have new or worsening altered mentation. Patient's respiratory rate is less than 22. Systolic blood pressure is greater than 100. Patient has a qSOFA score of 0- Negative Sepsis Screen. 02:40 Acuity: ELZA Level 3 [facility] 02:42 Suicide/Homicide risk assessment- Patient denies SI and HI but presents with another [facility] emotional, behavioral or other mental health complaint. The patient reports that he/she has a prior history of suicide attempt and/or organized plan. 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 Transition of care: patient was not received from another setting of care. 02:42 Method Of Arrival: Police Car [facility] Triage Assessment: 02:47 General: Appears in no apparent distress, comfortable, Behavior is agitated, mlc cooperative. Pain: Pain currently is 10 out of 10 on a pain scale. HIV screening NA for this visit Offered previously. The patient is triaged at the bedside. See Assessment in Nurses Notes section of ED record. Neurological: Level of Consciousness is awake, alert, obeys commands, Oriented to person, place, time. Respiratory: Airway is patent Respiratory effort is even, unlabored, Respiratory pattern is regular. Derm: Skin is pink, warm & dry. Historical: - Allergies: Versed (hallucinations); - Home Meds: 1. aspirin 81 mg Oral chew once daily 2. atorvastatin 10 mg oral tab 1 tab once daily 3. Carafate 1 gram Oral tab 4 times per day 4. citalopram 20 mg Oral tab 1 tab once daily 5. Flomax 0.4 mg Oral cp24 1 cap once daily 6. Humalog 100 unit/mL Sub-Q crtg 100 unit/mL sliding scale before meals 48 units (Last dose: 07/11/2016 01:45) 7. Lantus 100 unit/mL Sub-Q soln 85 units twice a day 50 units (Last dose: 07/11/2016 01:45) 8. lisinopril 10 mg Oral tab 1 tab once daily 9. Lyrica 225mg Oral 2 times per day 10. omeprazole 20 mg Oral cpDR 1 cap once daily 11. OxyContin 20 mg Oral Tb12 1 tab every 12 hours ran out yesterday 12. Vitamin D Oral 1000 unit daily 13. Zofran (as hydrochloride) 4 mg Oral tab every 6 hours - PMHx: Chronic Pain; Depression; Diabetes - IDDM: controlled; Hepatitis C; HTN; previous suicide attempt; - PSHx: colonscopy; endocscopy; Tonsillectomy; Adenoidectomy; left hand; - Social history: Smoking status: Patient states former smoker of tobacco. Patient uses alcohol weekly. No barriers to communication noted, The patient speaks fluent Mongolian. - Family history: Not pertinent. - : The pt / caregiver states he / she is not on anticoagulants. Home medication list is obtained from the patient. - Exposure Risk Screening:: None identified. Screenin:49 Screening information is obtained from the patient. Fall risk: No risks identified. mlc Assistance ADL's: Requires assistance with housework, assistance is provided by family members, medication administration, assistance is provided by family members. Abuse/DV Screen: The patient / caregiver reports he/she is: not in a situation that causes fear, pain or injury. Nutritional screening: No deficits noted. Advance Directives: Currently, there is no health care proxy. There is no Power of Cart Pusher. home support is adequate. Assessment: 03:13 General: Appears in no apparent distress, comfortable, Behavior is cooperative. Pain: mlc Location: low back area Pain currently is 10 out of 10 on a pain scale. Neurological: Level of Consciousness is awake, alert, Oriented to person, place, time. Cardiovascular: Capillary refill < 3 seconds Heart tones S1 S2 present. Respiratory: Airway is patent Respiratory effort is even, unlabored, Respiratory pattern is regular, Breath sounds are clear bilaterally. GI: Abdomen is non- distended Bowel sounds present X 4 quads. Abd is soft X 4 quads. Derm: Skin is pink, warm & dry. 03:21 Reassessment: pt moaning and restless. pt medicated per order. . mlc 03:45 Reassessment: Patient appears in no apparent distress at this time. Patient states mlc symptoms have not improved. pt medicated per order. 04:29 General: Behavior is restless, Patient given sandwich box at this time.. Respiratory: nn1 Airway is patent Respiratory effort is even, unlabored, Respiratory pattern is regular. Derm: Skin is pink, warm & dry. 05:02 General: Patient very restless, IV arnold wrapped to protect area. D10 infusing per nn1 orders. Patient reports back pain, states this pain is chronic. Patient medicated per orders. . 05:30 General: Patient calming down at this time, attempting to rest. Will continue to nn1 monitor. . 06:28 General: Patient restless, states he needs more pain medication. Patient instructed nn1 that he cannot receive more pain medication at this time. Patient throwing himself around in stretcher. Reconnected to monitors at this time. D10 infusing per orders . 07:25 General: Appears in no apparent distress, comfortable, Behavior is appropriate for age, ml6 cooperative. Pain: Denies pain. Neurological: No deficits noted. Level of Consciousness is awake, alert, Oriented to person, place, time. Cardiovascular: No deficits noted. Capillary refill < 3 seconds is brisk in bilateral fingers toes Heart tones S1 S2 present Edema is absent. Pulses are all present. Rhythm is sinus rhythm Chest pain is denied. Respiratory: No deficits noted. Airway is patent Respiratory effort is even, unlabored, Respiratory pattern is regular, symmetrical, Breath sounds are clear bilaterally. GI: No deficits noted. Abdomen is flat, non- distended Bowel sounds present X 4 quads. Abd is soft and non tender X 4 quads. Vital Signs: 02:38 BP 126 / 86; Pulse 101; Resp 20; Pulse Ox 96% on R/A; Weight 89.36 kg (M); Height 5 ft. mlc 11 in. (180.34 cm); Pain 10/; 02:42 Temp 98.8(TE); mlc 03:20 BP 126 / 81 (auto/); mlc 03:21 Pulse 109 MON; Pulse Ox 93% ; mlc 03:30 BP 125 / 85 (auto/); mlc 03:30 Pulse 110 MON; mlc 03:42 Pulse 112 MON; mlc 03:43 Pulse 113 MON; mlc 03:45 BP 115 / 69 (auto/); mlc 04:08 BP 138 / 89 (auto/); nn1 04:10 Pulse 112 MON; Pulse Ox 96% ; nn1 04:14 Pulse 106 MON; Pulse Ox 94% ; nn1 04:15 BP 139 / 77 (auto/); nn1 04:15 Pulse 106 MON; nn1 04:30 BP 144 / 82 (auto/); nn1 04:30 Pulse 130 MON; Pulse Ox 97% ; nn1 04:45 BP 159 / 91 (auto/); nn1 04:45 Pulse 128 MON; nn1 05:00 BP 143 / 81 (auto/); nn1 05:00 Pulse 118 MON; nn1 05:15 BP 134 / 80 (auto/); nn1 05:15 Pulse 117 MON; Pulse Ox 96% ; nn1 07:00 BP 116 / 67 (auto/); ml6 07:00 Pulse 102 MON; Resp 16; Pulse Ox 98% on R/A; Pain 0/10; ml6 07:15 BP 116 / 79 (auto/); ml6 07:15 Pulse 106 MON; Resp 16; Temp 98.7(O); Pulse Ox 98% on R/A; Pain 0/10; ml6 02:38 Body Mass Index 27.48 (89.36 kg, 180.34 cm) [facility] Vitals: 02:38 Log In Time N/A - ambulance arrival. [facility] ED Course: 02:30 Patient visited by Hugo Moreno Getterer. ml3 02:30 Patient moved to Waiting ml3 02:31 Yudi Moore,[place] is Primary Nurse. ml3 02:31 Patient moved to 3 ml3 02:34 Anton Kelly DO is Attending Physician. cs11 02:34 Patient visited by Anton Kelly DO. cs11 02:42 Triage Initiated mlc 02:49 Patient visited by Yudi Moore RN. mlc 03:12 Acetaminophen Level Sent. mlc 03:12 Basic Metabolic Profile Sent. mlc 03:12 Complete Blood Count Sent. mlc 03:12 Ethyl Alcohol (ethanol) Sent. mlc 03:12 Liver Profile Sent. mlc 03:12 Salicylate Level Sent. mlc 03:12 Thyroid Stimulating Hormone Sent. mlc 03:13 The patient / caregiver is instructed regarding the plan of care and ED course. Cardiac mlc monitor on. Pulse ox on. NIBP on. 03:13 Labs drawn. (by ED staff). Sent per order to lab. mlc 03:21 Patient visited by Yudi Moore RN. mlc 03:30 Patient visited by Yudi Moore,[place]. mlc 03:46 Patient visited by Yudi Moore RN. mlc 04:06 Drug Eval Toxicology ED Only Sent. mlc 04:25 [facility] Payment Agreement was scanned into [employer] and attached to record. pm4 04:44 Patient visited by Toni Spain RN. nn1 04:44 Inserted saline lock: 20 gauge in right antecubital area and blood collected. The nn1 patient tolerated the procedure well. 05:21 Alla Mckeon is Hospitalizing Provider. 11 07:18 Primary Nurse role handed off by Yudi Moore RN kr3 07:26 No procedures done that require assistance. ml6 Administered Medications: 03:20 Drug: diphenhydrAMINE 50 mg [diphenhydramine 50 mg/mL injection solution (1 mL)] Route: mlc IM; Site: right gluteus; 03:21 Drug: -Haloperidol Lactate 5 mg [haloperidol lactate 5 mg/mL injection solution (1 mL)] mlc Route: IM; Site: right gluteus; 03:45 Drug: -Haloperidol Lactate 5 mg [haloperidol lactate 5 mg/mL injection solution (1 mL)] mlc Route: IM; Site: right deltoid; 04:55 Drug: D10 in Water 1 vials [dextrose 10 % in water (D10W) intravenous solution] Route: nn1 IV; Rate: 100 mL/hr; Site: right antecubital; 05:02 Drug: OLANZapine 10 mg [olanzapine 10 mg intramuscular solution (10 mg)] Route: IM; nn1 Site: left gluteus; 05:17 Drug: morphine 4 mg [morphine (PF) 1 mg/mL injection solution (4 mL)] Route: IVP; Site: nn1 right antecubital; Point of Care Testing: Blood Glucose: 02:38 Blood Glucose: 228 mg/dL; mlc 03:30 Blood Glucose: 124 mg/dL; mlc 05:30 Blood Glucose: 105 mg/dL; nn1 06:29 Blood Glucose: 81 mg/dL; nn1 Ranges: Order Results: Lab Order: Fingerstick Blood Sugar; SPEC'M 07/11/16 02:37 Test: BEDSIDE GLUCOSE; Value: 228; Range: 70-105; Abnormal: Above high normal; Units: MG/DL; Status: F Test Note: ; RN Notified Serum Blood Draw Lab Order: Acetaminophen Level; SPEC'M 07/11/16 03:08 Test: ACETAMINOPHEN LEVEL; Value: < 2.0; Range: 10.0-30.0; Abnormal: Below low normal; Units: UG/ML; Status: F Lab Order: Basic Metabolic Profile; SPEC'M 07/11/16 03:08 Test: GLUCOSE, FASTING; Value: 184; Range: 70-105; Abnormal: Above high normal; Units: MG/DL; Status: F Test: BLOOD UREA NITROGEN; Value: 8; Range: 7-18; Units: MG/DL; Status: F Test: CREATININE FOR GFR; Value: 0.71; Range: 0.70-1.30; Units: MG/DL; Status: F Test: GLOMERULAR FILTRATION RATE; Value: > 60.0; Range: >56; Status: F Test: SODIUM LEVEL; Value: 142; Range: 136-145; Units: MEQ/L; Status: F Test: POTASSIUM SERUM; Value: 3.4; Range: 3.5-5.1; Abnormal: Below low normal; Units: MEQ/L; Status: F Test: CHLORIDE LEVEL; Value: 105; Range: 98-107; Units: MEQ/L; Status: F Test: CARBON DIOXIDE LEVEL; Value: 25; Range: 21-32; Units: MEQ/L; Status: F Test: ANION GAP; Value: 12; Range: 8-16; Units: MEQ/L; Status: F Test: CALCIUM LEVEL; Value: 8.6; Range: 8.5-10.1; Units: MG/DL; Status: F Test Note: ; Units are mL/min/1.73 m2 Chronic Kidney Disease Staging per NKF: Stage I & II GFR >=60 Normal to Mildly Decreased Stage III GFR 30-59 Moderately Decreased Stage IV GFR 15-29 Severely Decreased Stage V GFR <15 Very Little GFR Left ESRD GFR <15 on CDL B DRIVER Lab Order: Complete Blood Count; SPEC'M 07/11/16 03:08 Test: WHITE BLOOD COUNT; Value: 8.0; Range: 4.0-10.0; Units: K/mm3; Status: F Test: RED BLOOD COUNT; Value: 5.21; Range: 4.30-6.10; Units: M/mm3; Status: F Test: HEMOGLOBIN; Value: 16.2; Range: 14.0-18.0; Units: g/dl; Status: F Test: HEMATOCRIT; Value: 47.1; Range: 42.0-52.0; Units: %; Status: F Test: MEAN CORPUSCULAR VOLUME; Value: 90.4; Range: 80.0-96.0; Units: fl; Status: F Test: MEAN CORPUSCULAR HEMOGLOBIN; Value: 31.0; Range: 27.0-33.0; Units: pg; Status: F Test: MEAN CORPUSCULAR HGB CONC; Value: 34.3; Range: 32.0-36.5; Units: g/dl; Status: F Test: RED CELL DISTRIBUTION WIDTH; Value: 12.2; Range: 11.5-14.5; Units: %; Status: F Test: PLATELET COUNT, AUTOMATED; Value: 154; Range: 150-450; Units: k/mm3; Status: F Lab Order: Drug Eval Toxicology ED Only; SPEC'M 07/11/16 04:07 Test: AMPHETAMINES LEVEL URINE; Value: NEGATIVE; Range: NEGATIVE; Status: F Test: BARBITURATES URINE; Value: NEGATIVE; Range: NEGATIVE; Status: F Test: BENZODIAZEPINES URINE; Value: NEGATIVE; Range: NEGATIVE; Status: F Test: CANNABINOIDS URINE; Value: NEGATIVE; Range: NEGATIVE; Status: F Test: COCAINE METABOLITE URINE; Value: NEGATIVE; Range: NEGATIVE; Status: F Test: METHADONE URINE; Value: NEGATIVE; Range: NEGATIVE; Status: F Test: OPIATES URINE; Value: POSITIVE; Range: NEGATIVE; Abnormal: Above high normal; Status: F Test: TRICYCLIC ANTIDEPRESS URINE; Value: NEGATIVE; Range: NEGATIVE; Status: F Test Note: ; ALL PRESUMPTIVE POSITIVE FINDINGS ARE UNCONFIRMED NORMAL VALUES THRESHOLD IN NG/ML AMPHETAMINES 1000 METHAMPHETAMINES 1000 BARBITURATES 300 BENZODIAZEPINES 300 CANNABINOIDS (THC) 50 COCAINE METABOLITE 300 METHADONE 300 OPIATES 300 PHENCYCLIDINE 25 TRICYCLIC ANTIDEPRESSANTS 1000 RESULTS ARE FOR MEDICAL PURPOSES ONLY. ALL URINE SPECIMENS WILL BE SAVED FOR 3 DAYS. IF CONFIRMATION OF A PRESUMPTIVE POSTIVE SCREEN RESULT IS DESIRED, CALL CHEMISTRY ([phone]) AND REQUEST URINE TO BE SENT TO REFERENCE LAB. FOR A LIST OF CLOSELY RELATED COMPOUNDS PLEASE CALL THE LAB. Lab Order: Ethyl Alcohol (ethanol); SPEC' 07/11/16 03:08 Test: ETHYL ALCOHOL (ETHANOL); Value: 0.231; Range: 0.000-0.010; Abnormal: Above high normal; Units: %; Status: F Lab Order: Liver Profile; MERGED WITH [facility] 07/11/16 03:08 Test: AST/SGOT; Value: 16; Range: 15-37; Units: U/L; Status: F Test: ALT/SGPT; Value: 24; Range: 12-78; Units: U/L; Status: F Test: ALKALINE PHOSPHATASE; Value: 73; Range: 45-117; Units: U/L; Status: F Test: BILIRUBIN,TOTAL; Value: 0.3; Range: 0.2-1.0; Units: MG/DL; Status: F Test: BILIRUBIN,DIRECT; Value: 0.1; Range: 0.0-0.2; Units: MG/DL; Status: F Test: TOTAL PROTEIN; Value: 7.3; Range: 6.4-8.2; Units: GM/DL; Status: F Test: ALBUMIN; Value: 3.8; Range: 3.2-5.2; Units: GM/DL; Status: F Test: ALBUMIN/GLOBULIN RATIO; Value: 1.09; Range: 1.00-1.93; Status: F Lab Order: Salicylate Level; [facility]ED WITH [facility] 07/11/16 03:08 Test: SALICYLATE LEVEL; Value: < 1.7; Range: 5.0-30.0; Abnormal: Below low normal; Units: MG/DL; Status: F Lab Order: Thyroid Stimulating Hormone; 07/11/16 03:08 Test: THYROID STIMULATING HORMONE; Value: 0.134; Range: 0.358-3.740; Abnormal: Below low normal; Units: uIU/ML; Status: F Lab Order: Fingerstick Blood Sugar; [facility]ED WITH [facility] 07/11/16 03:28 Test: BEDSIDE GLUCOSE; Value: 124; Range: 70-105; Abnormal: Above high normal; Units: MG/DL; Status: F Test Note: ; RN Notified Dr Order not to Draw Lab Order: Fingerstick Blood Sugar; [facility]ED WITH [facility] 07/11/16 04:26 Test: BEDSIDE GLUCOSE; Value: 57; Range: 70-105; Abnormal: Below low normal; Units: MG/DL; Status: F Test Note: ; Dr Order not to Draw RN Notified Lab Order: Fingerstick Blood Sugar; [facility]ED WITH [facility] 07/11/16 04:54 Test: BEDSIDE GLUCOSE; Value: 73; Range: 70-105; Units: MG/DL; Status: F Lab Order: Fingerstick Blood Sugar; [facility]ED WITH [facility] 07/11/16 05:29 Test: BEDSIDE GLUCOSE; Value: 105; Range: 70-105; Units: MG/DL; Status: F Lab Order: Fingerstick Blood Sugar; [facility]ED WITH [facility] 07/11/16 06:24 Test: BEDSIDE GLUCOSE; Value: 81; Range: 70-105; Units: MG/DL; Status: F Outcome: 05:22 Decision to Hospitalize by Provider. 11 07:09 No special radiology studies were completed. Property secured in. [facility] 07:17 Admission hand-off: Report called to [place] Royal. [facility] 07:26 Discharge Assessment: patient administered narcotics - yes. Patient was admitted to the [address] or transferred to another facility. The following High Risk Discharge criteria are identified: None. Admitted to ICU accompanied by nurse, accompanied by tech, via stretcher, on monitor, with chart. Condition: stable. 07:27 Patient left the ED. [facility] Signatures: Hugo Moreno, Getterer Unit 3 Genesis Hernández RN RN kr3 Julian Elise RN RN 6 Anton Kelly, DO cs11 Yudi Moore RN RN mlc Nunez, Nikkole, RN RN nn1 Missael Scott, Reg Reg pm4 MTDD
[2016-07-11] MEDS: SUCRALFATE 1 GM TAB PO SCH ×4 (07:30→21:04)
--- NOTE | 2016-07-11 07:35 | HPEPDOC ---
General Date of Admission Jul 11, 2016 at 05:30 Primary Care Physician: VESNA SEQUEIRA DO Attending Physician: ALLA MCKEON Chief Complaint The patient is a 55-year-old male admitted with a reason for visit of Insulin Overdose. Source: Patient History of Present Illness Mr. Flores is a 55-year-old male who was brought to the emergency department via EMS because his called the police as she believed she witnessed him injecting too much insulin. Apparently, she did not know whether was long-acting or short acting, and she does not know how much he injected, but she suspected that it was too much. Upon arrival the patient was severely agitated requiring 2 doses of IM haloperidol 5 mg, as well as 1 dose of IM Zyprexa 10 mg. As patient was being monitored in the ED, his blood sugar level was checked hourly and it went from the 200s to 124 to 57, therefore the patient was started on D10, and his glucose has plateaued for the time being. When I came to evaluate the patient he was sleeping peacefully in the bed, but he was a little lethargic, but easily arousable, pleasant to speak with, and answered all his questions appropriately. Originally he told the ED physician that he didn't think he took any extra insulin, but when speaking to me he does admit that perhaps he might have taken too much. Specifically, he denies any suicidal intentions, and that if he had taken too much it was accidental. Of note, he was admitted approximately 3 weeks ago to the [facility] for suicide attempt, and at that time his urine tox screen for opiates was negative despite the fact that he is prescribed opiates chronically. In [employer] it is noted that his primary care physician had a conversation with him just yesterday evening about his breach of contract, and it was decided that they were going to taper him off of his narcotics in light of the fact that he had an intentional suicide attempt, and had not been using his opiates as prescribed. During that conversation it appears that this patient asked his PCP if he were going to continue prescribing him medications such as aspirin and insulin, because he could just as easily use those to overdose as well. Apparently though, he did not have any suicidal ideations at that time either. Home Medications Scheduled Aspirin (Aspirin EC) 81 Mg Tabec 81 MG PO DAILY (Reported) Atorvastatin Calcium (Atorvastatin Calcium) 10 Mg Tab 10 MG PO QHS (Reported) Cholecalciferol (Vitamin D) 1,000 Unit Tab 1,000 UNIT PO DAILY (Reported) Citalopram Hydrobromide (Citalopram Hydrobromide) 20 Mg Tab 20 MG PO DAILY ( Reported) Insulin Glargine (Lantus) 1 Units/0.01 Ml Susp 50 UNITS SC BID (Reported) Insulin Human Lispro (Humalog) 1 Units/0.01 Ml Inj 1 DOSE SC ACHS (Reported) Lisinopril (Lisinopril) 10 Mg Tab 10 MG PO DAILY (Reported) Omeprazole (Omeprazole) 20 Mg Cap 20 MG PO DAILY (Reported) Oxycodone HCl (Oxycontin) 20 Mg Tab 20 MG PO BID (Reported) Pregabalin (Lyrica) 225 Mg Cap 225 MG PO BID (Reported) Sucralfate (Carafate) 1 Gm Tab 1 GM PO ACHS (Reported) Tamsulosin Hydrochloride (Flomax) 0.4 Mg Cap 0.4 MG PO DAILY (Reported) Trazodone HCl (Trazodone HCl) 50 Mg Tab 50 MG PO QHS (Reported) Scheduled PRN Meclizine HCl (Meclizine HCl) 25 Mg Tab 25 MG PO DAILY PRN PRN DIZZINESS ( Reported) Ondansetron HCl (Zofran) 4 Mg Tab 4 MG PO Q6H PRN PRN NAUSEA (Reported) Polyethylene Glycol (Miralax) 1 Pow Pow 17 GM PO BID PRN PRN CONSTIPATION ( Reported) Allergies Coded Allergies: Diazepam (Verified Allergy, Unknown, 11/01/13) TAPE (Verified Allergy, Unknown, 12/02/13) Midazolam (Verified Adverse Reaction, Intermediate, "GO CRAZY", 02/15/13) Past Medical History Medical History COPD Diabetes mellitus type 2 Chronic hepatitis C DJD Dupuytren's contractures of hands and feet CVA 2 in 2008 (no residual effects) Adjustment disorder with mixed anxiety/depression Depression with prior suicidal attempts Alcohol abuse Grade 1 diastolic CHF Surgical History Most recent echocardiogram October 2014 EF 60%, grade 1 diastolic dysfunction, borderline LVH EGD and colonoscopy 2015; hemorrhoids otherwise unremarkable Liver biopsy 2007 Tonsillectomy Multiple hand injections Dupuytren's contracture release of left hand when he 12 Family History Family History Father had heart failure, CVA, [place] at 78 years old. Mother had heart failure, [place], hypertension, throat cancer, at 63 years old. He has one brother is alive at 59 years old who has had a quadruple bypass. He has 3 sons and 1 daughter who are all healthy Social History * Smoker: non-smoker Alcohol: heavy Drugs: denies Social History Lives at home with his . Review of Symptoms Psych: Denies: Depression, Memory Issues Other systems After receiving multiple medications in the ED for agitation, he is awake and alert and answers all questions appropriately, however it appears that his review of systems is unreliable. Nevertheless, his entire review of systems is uniformly negative, except that he does admit to some chronic abdominal pain that is not too bad right now. Physical Examination General Exam: Positive: Alert (he is easily arousable, and he is alert when being spoken to, however he falls back asleep quite easily as well), Cooperative , No Acute Distress Eye Exam: Positive: Conjunctiva & lids normal, EOMI, Negative: PERRLA (his pupils do appear constricted, however he did receive morphine in the ED), Sclera icteric ENT Exam: Positive: Atraumatic, Mucous membr. moist/pink, Pharynx Normal Neck Exam: Positive: Supple, Negative: JVD, thyromegaly Chest Exam: Positive: Clear to auscultation, Normal air movement Heart Exam: Positive: Normal S1, Normal S2, Regular Rhythm, Tachycardic, Negative: Murmurs, Rubs Telemetry: Positive: No significant arrhythmia Abdomen Exam: Positive: Normal bowel sounds, Soft, Negative: Hepatospenomegaly Extremity Exam: Positive: Normal pulses, Negative: Clubbing, Cyanosis, Edema Skin Exam: Positive: Nl turgor and temperature, Negative: Breakdown, Lesion Vital Signs Blood pressure 115/69, pulse 113, respiratory rate 20, temperature 98.8, pulse ox 93% on room air, weight 89 kg, height 5 feet 11 inches, body mass index 27 Laboratory Data Labs 24H Laboratory Tests 2 07/11/16 02:37: Bedside Glucose (Misc Panel) 228H 07/11/16 03:08: Acetaminophen Level < 2.0L, Aspartate Amino Transf (AST/SGOT) 16, Alanine Aminotransferase (ALT/SGPT) 24, Alkaline Phosphatase 73, Total Bilirubin 0.3, Direct Bilirubin 0.1, Albumin 3.8, Albumin/Globulin Ratio 1.09, Anion Gap 12, Calcium Level 8.6, Ethyl Alcohol Level 0.231H, Glomerular Filtration Rate > 60.0 , Salicylates Level < 1.7L, Thyroid Stimulating Hormone (TSH) 0.134L, Total Protein 7.3 07/11/16 03:28: Bedside Glucose (Misc Panel) 124H 07/11/16 04:07: Urine Amphetamine Level NEGATIVE, Urine Benzodiazepines Screen NEGATIVE, Urine Cannabinoids NEGATIVE, Urine Cocaine Metabolite NEGATIVE, Urine Opiates Screen POSITIVEH, Urine Barbiturates, Qualitative NEGATIVE, Urine Methadone Screen NEGATIVE, Urine Tricyclic Antidepressants NEGATIVE 07/11/16 04:26: Bedside Glucose (Misc Panel) 57L 07/11/16 04:54: Bedside Glucose (Misc Panel) 73 07/11/16 05:29: Bedside Glucose (Misc Panel) 105 CBC/BMP Laboratory Tests 07/11/16 03:08 Red Blood Count 5.21, Mean Corpuscular Volume 90.4, Mean Corpuscular Hemoglobin 31.0, Mean Corpuscular Hemoglobin Concent 34.3, Red Cell Distribution Width 12.2 Assessment/Plan Problems: (1) Insulin overdose Status: Acute Problem Text: Will admit the patient is a ICU for every hour glucose checks, we will hold his insulin at this time, and administer D10 at 100cc per hour, and adjust as necessary. (2) Alcohol abuse Status: Chronic Problem Text: His EtOH level was elevated upon admission, we'll start CIWA protocol to monitor him for DTs, however we will not give him scheduled benzodiazepines at this time as he is at risk of hypoglycemia and sedation as it is. We will administer thiamine and folate (3) COPD (chronic obstructive pulmonary disease) Status: Chronic (4) Diabetes mellitus type 2 in nonobese Status: Chronic (5) Hepatitis C Status: Chronic (6) Diastolic CHF Status: Chronic Plan / VTE VTE Prophylaxis Ordered?: Yes (lovenox) Plan Plan Otherwise, we'll continue with his regular home medications for his chronic conditions. We will hold his narcotics at this time. GME ATTESTATION GME ATTESTATION My preceptor for this patient encounter was physically present in the building during the encounter and was fully available. As needed, all aspects of the patient interview, examination, medical decision making process, and medical care plan development were reviewed and approved by the preceptor. Preceptor is aware and concurs with the plan as stated in the body of this note and will attest to such by his/her cosignature. ATTENDING NOTE I, Alla Mckeon, have seen and examined the above patient and agree with the assessment and plan as documented by Dr. Armenta. JOYCE ARMENTA DO Jul 11, 2016 06:34 ALLA MCKEON Jul 12, 2016 07:03
[2016-07-11] MEDS ORDERED: oxyCODONE 20 MG CR TAB PO SCH (09:00)
[2016-07-11] MEDS: VITAMIN D 1,000 INTERNATIONAL UNITS TABLET PO SCH (09:18)
[2016-07-11] MEDS: OMEPRAZOLE 20 MG CAP PO SCH (09:19)
[2016-07-11] MEDS: THIAMINE 100 MG TAB PO SCH (09:19)
[2016-07-11] MEDS: FOLIC ACID 1 MG TAB PO SCH (09:19)
[2016-07-11] MEDS: CitaloPRAM (CeleXA) 20 MG TAB PO SCH (09:19)
[2016-07-11] MEDS: ASPIRIN 81 MG ENTERIC TAB PO SCH (09:19)
[2016-07-11] MEDS: TAMSULOSIN 0.4 MG CAP PO SCH (09:19)
[2016-07-11] MEDS: PREGABALIN 75 MG CAP(LYRICA) PO SCH ×2 (09:20→21:04)
[2016-07-11] MEDS: ENOXAPARIN 40 MG/0.4 ML SYRINGE (J1650) SC SCH (09:20)
[2016-07-11] MEDS: LISINOPRIL 10 MG TAB PO SCH (09:20)
[2016-07-11] MEDS: oxyCODONE 20 MG CR TAB PO SCH ×2 (09:38→21:03)
[2016-07-11 11:30] LABS: ANION GAP 9 MEQ/L (8-16); BLOOD UREA NITROGEN 8 MG/DL (7-18); CALCIUM LEVEL 8.7 MG/DL (8.5-10.1); CARBON DIOXIDE LEVEL 26 MEQ/L (21-32); CHLORIDE LEVEL 104 MEQ/L (98-107); CREATININE FOR GFR 0.63 MG/DL (0.70-1.30); GLOMERULAR FILTRATION RATE > 60.0 (>56); GLUCOSE, FASTING 217 MG/DL (70-105); MAGNESIUM LEVEL 2.1 MG/DL (1.8-2.4); POTASSIUM SERUM 4.1 MEQ/L (3.5-5.1); SODIUM LEVEL 139 MEQ/L (136-145)
[2016-07-11] MEDS: D5W 1,000 ML IV SCH ×2 (11:55→21:02)
[2016-07-11] MEDS: HumaLOG INSULIN (NovoLOG) PER UNIT SC SCH (21:00)
[2016-07-11] MEDS: ATORVASTATIN 10 MG TAB PO SCH (21:02)
[2016-07-11] MEDS: traZODone 50 MG TAB PO SCH (21:04)
[2016-07-11] MEDS ORDERED: DEXTROSE 50% 50 ML SYRINGE IV PRN (23:00)
[2016-07-11] MEDS ORDERED: GLUCAGON FOR INJ 1 MG VIAL (J1610) SC PRN (23:00)
[2016-07-11] MEDS ORDERED: GLUCOSE 4 GM CHEW TABLET PO PRN (23:00)
[2016-07-12] VITALS (8 sets, daily range): BP systolic 121–157; BP diastolic 75–86
[2016-07-12 04:38] LABS: MEAN CORPUSCULAR HEMOGLOBIN 31.3 pg (27.0-33.0); MEAN CORPUSCULAR HGB CONC 33.8 g/dl (32.0-36.5); MEAN CORPUSCULAR VOLUME 92.5 fl (80.0-96.0); RED CELL DISTRIBUTION WIDTH 12.3 % (11.5-14.5); WHITE BLOOD COUNT 6.6 K/mm3 (4.0-10.0)
[2016-07-12 04:56] LABS: ANION GAP 11 MEQ/L (8-16); BLOOD UREA NITROGEN 10 MG/DL (7-18); CALCIUM LEVEL 8.4 MG/DL (8.5-10.1); CARBON DIOXIDE LEVEL 24 MEQ/L (21-32); CHLORIDE LEVEL 103 MEQ/L (98-107); CREATININE FOR GFR 0.89 MG/DL (0.70-1.30); GLOMERULAR FILTRATION RATE > 60.0 (>56); GLUCOSE, FASTING 314 MG/DL (70-105); POTASSIUM SERUM 3.9 MEQ/L (3.5-5.1); SODIUM LEVEL 138 MEQ/L (136-145)
[2016-07-12] MEDS: HumaLOG INSULIN (NovoLOG) PER UNIT SC SCH ×4 (08:03→21:00)
[2016-07-12] MEDS: SUCRALFATE 1 GM TAB PO SCH ×4 (08:03→19:44)
[2016-07-12] MEDS: ENOXAPARIN 40 MG/0.4 ML SYRINGE (J1650) SC SCH (08:53)
[2016-07-12] MEDS: PREGABALIN 75 MG CAP(LYRICA) PO SCH ×2 (08:54→19:44)
[2016-07-12] MEDS: VITAMIN D 1,000 INTERNATIONAL UNITS TABLET PO SCH (08:54)
[2016-07-12] MEDS: THIAMINE 100 MG TAB PO SCH (08:54)
[2016-07-12] MEDS: TAMSULOSIN 0.4 MG CAP PO SCH (08:54)
[2016-07-12] MEDS: OMEPRAZOLE 20 MG CAP PO SCH (08:55)
[2016-07-12] MEDS: ASPIRIN 81 MG ENTERIC TAB PO SCH (08:55)
[2016-07-12] MEDS: FOLIC ACID 1 MG TAB PO SCH (08:55)
[2016-07-12] MEDS: CitaloPRAM (CeleXA) 20 MG TAB PO SCH (08:55)
[2016-07-12] MEDS: LISINOPRIL 10 MG TAB PO SCH (08:55)
[2016-07-12] MEDS: oxyCODONE 20 MG CR TAB PO SCH ×2 (08:59→21:11)
[2016-07-12] MEDS ORDERED: LEVEMIR (INSULIN DETEMIR) 1 UNITS/0.01ML SC SCH (09:00)
--- NOTE | 2016-07-12 14:35 | IPNPDOC ---
Text Note Date of Service The patient was seen on 07/12/16 at 14:25. NOTE Subjective: Patient states he feels well. No complaints. Does not feel suicidal. Objective: Vitals: (see below) General: No acute distress, laying comfortably in bed. HEENT: Moist mucous membranes. Neck: No JVD or lymphadenopathy Cardiac: RRR, No murmurs Pulm: Clear to auscultation b/l. No wheezing, rhonchi Abd: NT/ND + BS Ext: No edema or cyanosis Not suicidal. Labs (see below) Images: Assessment/Plan 1. Insulin overdose- patient's states that the room was dark and he did not have his glasses when he dropped insulin into the syringe. He does have a history of depression with prior suicide attempts 4. We will have a psychiatric evaluation. Patient is off of the D5 and D10. His blood sugars are running in the 200s now. 2. Diabetes mellitus- patient's Levemir has been decreased to 20 units daily. Patient is eating. Will monitor blood sugars and to discharge him tomorrow. 3. Alcohol abuse- patient has had multiple admissions with alcohol abuse. Continues CIWA protocol. Thiamine, folic acid, multivitamin. 4. History of atrial fibrillation 5. History of anxiety 6. History of hypertension. 7. Severe COPD- continue nebs 8. Chronic hepatitis C 9. History of CVA in 2008 with no residual deficits. DVT prophy: SCDs Dispo: Plan to discharge in the next 24 hours. VS,Fishbone, I+O VS, Fishbone, I+O Laboratory Tests 07/12/16 04:17 Calcium Level 8.4 L, Red Blood Count 4.53, Mean Corpuscular Volume 92.5, Mean Corpuscular Hemoglobin 31.3, Mean Corpuscular Hemoglobin Concent 33.8, Red Cell Distribution Width 12.3 Vital Signs Date Time Temp Pulse Resp B/P Pulse Ox O2 Delivery O2 Flow Rate FiO2 07/12/16 14:00 97.7 90 18 134/75 97 Room Air I&O- Last 24 Hours up to 6 AM 07/12/16 06:00 Intake Total 3095 ml Output Total 2200 ml Balance 895 ml ECTOR DOVE MD Jul 12, 2016 14:35
[2016-07-12] MEDS: MULTIVITAMINS/MINERALS THERAP 1 TAB PO SCH (17:40)
[2016-07-12] MEDS: traZODone 50 MG TAB PO SCH (19:44)
[2016-07-12] MEDS: ATORVASTATIN 10 MG TAB PO SCH (19:44)
--- NOTE | 2016-07-13 00:36 | ECGEPIP ---
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
[2016-07-13 06:00] VITALS: BP 125/66
[2016-07-13 06:08] LABS: MEAN CORPUSCULAR HEMOGLOBIN 30.9 pg (27.0-33.0); MEAN CORPUSCULAR HGB CONC 34.2 g/dl (32.0-36.5); MEAN CORPUSCULAR VOLUME 90.5 fl (80.0-96.0); WHITE BLOOD COUNT 6.3 K/mm3 (4.0-10.0)
[2016-07-13 06:21] LABS: ANION GAP 9 MEQ/L (8-16); BLOOD UREA NITROGEN 10 MG/DL (7-18); CALCIUM LEVEL 8.4 MG/DL (8.5-10.1); CARBON DIOXIDE LEVEL 27 MEQ/L (21-32); CHLORIDE LEVEL 104 MEQ/L (98-107); CREATININE FOR GFR 0.78 MG/DL (0.70-1.30); GLOMERULAR FILTRATION RATE > 60.0 (>56); GLUCOSE, FASTING 234 MG/DL (70-105); POTASSIUM SERUM 3.9 MEQ/L (3.5-5.1); SODIUM LEVEL 140 MEQ/L (136-145)
--- NOTE | 2016-07-13 08:29 | EDDOCDS ---
Physician Documentation [facility] Name: German Diaz Age: 55 yrs Sex: Male : 1960 Arrival Date: 07/11/2016 Time: 02:29 Bed 3 Private MD: Disposition: 07/11/16 05:22 Hospitalization ordered by Alla Mckeon for Inpatient Admission. Preliminary diagnosis are Hypoglycemia, unspecified, Adverse effect of insulin and oral hypoglycemic [antidiabetic] drugs, Alcohol abuse with intoxication, Opioid dependence. - Bed requested for M ICU. - Status is Inpatient Admission. ml6 - Condition is Stable. - Problem is an ongoing problem. - Symptoms have improved. Historical: - Allergies: Versed (hallucinations); - Home Meds: 1. aspirin 81 mg Oral chew once daily 2. atorvastatin 10 mg oral tab 1 tab once daily 3. Carafate 1 gram Oral tab 4 times per day 4. citalopram 20 mg Oral tab 1 tab once daily 5. Flomax 0.4 mg Oral cp24 1 cap once daily 6. Humalog 100 unit/mL Sub-Q crtg 100 unit/mL sliding scale before meals 48 units (Last dose: 07/11/2016 01:45) 7. Lantus 100 unit/mL Sub-Q soln 85 units twice a day 50 units (Last dose: 07/11/2016 01:45) 8. lisinopril 10 mg Oral tab 1 tab once daily 9. Lyrica 225mg Oral 2 times per day 10. omeprazole 20 mg Oral cpDR 1 cap once daily 11. OxyContin 20 mg Oral Tb12 1 tab every 12 hours ran out yesterday 12. Vitamin D Oral 1000 unit daily 13. Zofran (as hydrochloride) 4 mg Oral tab every 6 hours - PMHx: Chronic Pain; Depression; Diabetes - IDDM: controlled; Hepatitis C; HTN; previous suicide attempt; - PSHx: colonscopy; endocscopy; Tonsillectomy; Adenoidectomy; left hand; - Social history: Smoking status: Patient states former smoker of tobacco. Patient uses alcohol weekly. No barriers to communication noted, The patient speaks fluent [place]. - Family history: Not pertinent. - : The pt / caregiver states he / she is not on anticoagulants. Home medication list is obtained from the patient. - Exposure Risk Screening:: None identified. Vital Signs: 07/11 02:38 BP 126 / 86; Pulse 101; Resp 20; Pulse Ox 96% on R/A; Weight 89.36 kg / 197.01 lbs (M[place] [facility] [place] 5 ft. 11 in. (180.34 cm); Pain 10/10; 02:42 Temp 98.8(TE); mlc 03:20 BP 126 / 81 (auto/); mlc 03:21 Pulse 109 MON; Pulse Ox 93% ; mlc 03:30 BP 125 / 85 (auto/); mlc 03:30 Pulse 110 MON; mlc 03:42 Pulse 112 MON; mlc 03:43 Pulse 113 MON; mlc 03:45 BP 115 / 69 (auto/); mlc 04:08 BP 138 / 89 (auto/); nn1 04:10 Pulse 112 MON; Pulse Ox 96% ; nn1 04:14 Pulse 106 MON; Pulse Ox 94% ; nn1 04:15 BP 139 / 77 (auto/); nn1 04:15 Pulse 106 MON; nn1 04:30 BP 144 / 82 (auto/); nn1 04:30 Pulse 130 MON; Pulse Ox 97% ; nn1 04:45 BP 159 / 91 (auto/); nn1 04:45 Pulse 128 MON; nn1 05:00 BP 143 / 81 (auto/); nn1 05:00 Pulse 118 MON; nn1 05:15 BP 134 / 80 (auto/); nn1 05:15 Pulse 117 MON; Pulse Ox 96% ; nn1 07:00 BP 116 / 67 (auto/); ml6 07:00 Pulse 102 MON; Resp 16; Pulse Ox 98% on R/A; Pain 0/10; ml6 07:15 BP 116 / 79 (auto/); ml6 07:15 Pulse 106 MON; Resp 16; Temp 98.7(O); Pulse Ox 98% on R/A; Pain 0/10; ml6 02:38 Body Mass Index 27.48 (89.36 kg, 180.34 cm) [facility] [place]DM: 02:54 Accucheck hourly ordered. cs11 02:54 Consult PFS/PSA/Assembler Product ordered. cs11 02:54 Consult PFS/PSA/Assembler Product: Patient's case requires discussion with on-call cs11 Psychiatrist ordered. 02:54 PSA/PFS to call Nursing Desolderer, to enter patient data on [place] [employer] if patient cs11 involuntarily admitted or transferred for SI or HI ordered. 02:54 Confirm accurate psychiatric medication list and times of last dosage ordered. cs11 02:54 Detain Pt Until Medically/PFS Cleared ordered. cs11 02:55 Acetaminophen Level Ordered. EDMS 02:55 Basic Metabolic Profile Ordered. EDMS 02:55 Complete Blood Count Ordered. EDMS 02:55 Drug Eval Toxicology ED Only Ordered. EDMS 02:55 Ethyl Alcohol (ethanol) Ordered. EDMS 02:55 Liver Profile Ordered. EDMS 02:55 Salicylate Level Ordered. EDMS 02:55 Thyroid Stimulating Hormone Ordered. EDMS 03:14 -Haloperidol Lactate 5 mg IM once ordered. cs11 03:14 diphenhydrAMINE 50 mg IM once ordered. cs11 03:36 Fingerstick Blood Sugar Ordered. EDMS 03:38 -Haloperidol Lactate 5 mg IM once ordered. cs11 04:10 Fingerstick Blood Sugar Reviewed. cs11 04:10 Acetaminophen Level Reviewed. cs11 04:10 Basic Metabolic Profile Reviewed. cs11 04:10 Ethyl Alcohol (ethanol) Reviewed. cs11 04:10 Salicylate Level Reviewed. cs11 04:10 Thyroid Stimulating Hormone Reviewed. cs11 04:10 Fingerstick Blood Sugar Reviewed. cs11 04:10 Complete Blood Count Reviewed. cs11 04:10 Liver Profile Reviewed. cs11 04:24 Financial registration complete. pm4 04:25 [facility] [place] was scanned into [employer] and attached to record. pm4 04:29 IV Saline Lock ordered. cs11 04:29 D10 in Water 1 vials IV at 100 mL/hr continuous ordered. cs11 04:36 Fingerstick Blood Sugar Ordered. EDMS 04:55 OLANZapine 10 mg IM once ordered. cs11 04:56 BED REQUEST+ADM ordered. EDMS 05:02 Fingerstick Blood Sugar Ordered. EDMS 05:11 morphine 4 mg IVP once ordered. cs11 05:33 Admission / Observation Status ordered. EDMS 05:37 Fingerstick Blood Sugar Ordered. EDMS 06:55 CONSISTENT CARBOHYDRATES ordered. EDMS 07:39 Fingerstick Blood Sugar Ordered. EDMS 13:30 T-Sheet-- Draft Copy was scanned into [employer] and attached to record. Point of Care Testing: Blood Glucose: 02:38 Blood Glucose: 228 mg/dL; mlc 03:30 Blood Glucose: 124 mg/dL; mlc 05:30 Blood Glucose: 105 mg/dL; nn1 06:29 Blood Glucose: 81 mg/dL; nn1 Ranges: Administered Medications: 03:20 Drug: diphenhydrAMINE 50 mg [diphenhydramine 50 mg/mL injection solution (1 mL)] Route: mlc IM; Site: right gluteus; 03:21 Drug: -Haloperidol Lactate 5 mg [haloperidol lactate 5 mg/mL injection solution (1 mL)] mlc Route: IM; Site: right gluteus; 03:45 Drug: -Haloperidol Lactate 5 mg [haloperidol lactate 5 mg/mL injection solution (1 mL)] [facility] [place]: IM; Site: right deltoid; 04:55 Drug: D10 in Water 1 vials [dextrose 10 % in water (D10W) intravenous solution] Route: nn1 IV; Rate: 100 mL/hr; Site: right antecubital; 05:02 Drug: OLANZapine 10 mg [olanzapine 10 mg intramuscular solution (10 mg)] Route: IM; nn1 Site: left gluteus; 05:17 Drug: morphine 4 mg [morphine (PF) 1 mg/mL injection solution (4 mL)] Route: IVP; Site: nn1 right antecubital; Signatures: Dispatcher [employer] EDMS Natalya Torrez RN Salima Daniel, Reg Reg gb Julian Elise RN RN ml6 Anton Kelly, DO DO cs11 Yudi Moore RN RN [facility] [place] Missael Scott, Reg Reg pm4 Toni Spain RN nn1 The chart was reviewed and I authenticate all verbal orders and agree with the evaluation and treatment provided.Attachments: 04:25 [facility] [place] Agreement pm4 13:30 T-Sheet-- Draft Copy gb Chart Complete MTDD
--- NOTE | 2016-07-13 08:29 | EDDOCDS ---
Physician Documentation [facility] Name: German Diaz Age: 55 yrs Sex: Male : 1960 Arrival Date: 07/11/2016 Time: 02:29 Bed 3 Private MD: Disposition: 07/11/16 05:22 Hospitalization ordered by Alla Mckeon for Inpatient Admission. Preliminary diagnosis are Hypoglycemia, unspecified, Adverse effect of insulin and oral hypoglycemic [antidiabetic] drugs, Alcohol abuse with intoxication, Opioid dependence. - Bed requested for M ICU. - Status is Inpatient Admission. ml6 - Condition is Stable. - Problem is an ongoing problem. - Symptoms have improved. Historical: - Allergies: Versed (hallucinations); - Home Meds: 1. aspirin 81 mg Oral chew once daily 2. atorvastatin 10 mg oral tab 1 tab once daily 3. Carafate 1 gram Oral tab 4 times per day 4. citalopram 20 mg Oral tab 1 tab once daily 5. Flomax 0.4 mg Oral cp24 1 cap once daily 6. Humalog 100 unit/mL Sub-Q crtg 100 unit/mL sliding scale before meals 48 units (Last dose: 07/11/2016 01:45) 7. Lantus 100 unit/mL Sub-Q soln 85 units twice a day 50 units (Last dose: 07/11/2016 01:45) 8. lisinopril 10 mg Oral tab 1 tab once daily 9. Lyrica 225mg Oral 2 times per day 10. omeprazole 20 mg Oral cpDR 1 cap once daily 11. OxyContin 20 mg Oral Tb12 1 tab every 12 hours ran out yesterday 12. Vitamin D Oral 1000 unit daily 13. Zofran (as hydrochloride) 4 mg Oral tab every 6 hours - PMHx: Chronic Pain; Depression; Diabetes - IDDM: controlled; Hepatitis C; HTN; previous suicide attempt; - PSHx: colonscopy; endocscopy; Tonsillectomy; Adenoidectomy; left hand; - Social history: Smoking status: Patient states former smoker of tobacco. Patient uses alcohol weekly. No barriers to communication noted, The patient speaks fluent Colombian. - Family history: Not pertinent. - : The pt / caregiver states he / she is not on anticoagulants. Home medication list is obtained from the patient. - Exposure Risk Screening:: None identified. Vital Signs: 07/11 02:38 BP 126 / 86; Pulse 101; Resp 20; Pulse Ox 96% on R/A; Weight 89.36 kg / 197.01 lbs (M); [facility] Height 5 ft. 11 in. (180.34 cm); Pain 10/10; 02:42 Temp 98.8(TE); mlc 03:20 BP 126 / 81 (auto/); mlc 03:21 Pulse 109 MON; Pulse Ox 93% ; mlc 03:30 BP 125 / 85 (auto/); mlc 03:30 Pulse 110 MON; mlc 03:42 Pulse 112 MON; mlc 03:43 Pulse 113 MON; mlc 03:45 BP 115 / 69 (auto/); mlc 04:08 BP 138 / 89 (auto/); nn1 04:10 Pulse 112 MON; Pulse Ox 96% ; nn1 04:14 Pulse 106 MON; Pulse Ox 94% ; nn1 04:15 BP 139 / 77 (auto/); nn1 04:15 Pulse 106 MON; nn1 04:30 BP 144 / 82 (auto/); nn1 04:30 Pulse 130 MON; Pulse Ox 97% ; nn1 04:45 BP 159 / 91 (auto/); nn1 04:45 Pulse 128 MON; nn1 05:00 BP 143 / 81 (auto/); nn1 05:00 Pulse 118 MON; nn1 05:15 BP 134 / 80 (auto/); nn1 05:15 Pulse 117 MON; Pulse Ox 96% ; nn1 07:00 BP 116 / 67 (auto/); ml6 07:00 Pulse 102 MON; Resp 16; Pulse Ox 98% on R/A; Pain 0/10; ml6 07:15 BP 116 / 79 (auto/); ml6 07:15 Pulse 106 MON; Resp 16; Temp 98.7(O); Pulse Ox 98% on R/A; Pain 0/10; ml6 02:38 Body Mass Index 27.48 (89.36 kg, 180.34 cm) [facility] [place] MDM: 02:54 Accucheck hourly ordered. cs11 02:54 Consult PFS/PSA/Air Crew Member ordered. cs11 02:54 Consult PFS/PSA/Air Crew Member: Patient's case requires discussion with on-call cs11 Psychiatrist ordered. 02:54 PSA/PFS to call Nursing Shotblast Equipment Operator, to enter patient data on [place] Safe Act if patient cs11 involuntarily admitted or transferred for SI or HI ordered. 02:54 Confirm accurate psychiatric medication list and times of last dosage ordered. cs11 02:54 Detain Pt Until Medically/PFS Cleared ordered. cs11 02:55 Acetaminophen Level Ordered. EDMS 02:55 Basic Metabolic Profile Ordered. EDMS 02:55 Complete Blood Count Ordered. EDMS 02:55 Drug Eval Toxicology ED Only Ordered. EDMS 02:55 Ethyl Alcohol (ethanol) Ordered. EDMS 02:55 Liver Profile Ordered. EDMS 02:55 Salicylate Level Ordered. EDMS 02:55 Thyroid Stimulating Hormone Ordered. EDMS 03:14 -Haloperidol Lactate 5 mg IM once ordered. cs11 03:14 diphenhydrAMINE 50 mg IM once ordered. cs11 03:36 Fingerstick Blood Sugar Ordered. EDMS 03:38 -Haloperidol Lactate 5 mg IM once ordered. cs11 04:10 Fingerstick Blood Sugar Reviewed. cs11 04:10 Acetaminophen Level Reviewed. cs11 04:10 Basic Metabolic Profile Reviewed. cs11 04:10 Ethyl Alcohol (ethanol) Reviewed. cs11 04:10 Salicylate Level Reviewed. cs11 04:10 Thyroid Stimulating Hormone Reviewed. cs11 04:10 Fingerstick Blood Sugar Reviewed. cs11 04:10 Complete Blood Count Reviewed. cs11 04:10 Liver Profile Reviewed. cs11 04:24 Financial registration complete. pm4 04:25 [facility] [place] Agreement was scanned into [employer] and attached to record. pm4 04:29 IV Saline Lock ordered. cs11 04:29 D10 in Water 1 vials IV at 100 mL/hr continuous ordered. cs11 04:36 Fingerstick Blood Sugar Ordered. EDMS 04:55 OLANZapine 10 mg IM once ordered. cs11 04:56 BED REQUEST+ADM ordered. EDMS 05:02 Fingerstick Blood Sugar Ordered. EDMS 05:11 morphine 4 mg IVP once ordered. cs11 05:33 Admission / Observation Status ordered. EDMS 05:37 Fingerstick Blood Sugar Ordered. EDMS 06:55 CONSISTENT CARBOHYDRATES ordered. EDMS 07:39 Fingerstick Blood Sugar Ordered. EDMS 13:30 T-Sheet-- Draft Copy was scanned into [employer] and attached to record. Point of Care Testing: Blood Glucose: 02:38 Blood Glucose: 228 mg/dL; mlc 03:30 Blood Glucose: 124 mg/dL; mlc 05:30 Blood Glucose: 105 mg/dL; nn1 06:29 Blood Glucose: 81 mg/dL; nn1 Ranges: Administered Medications: 03:20 Drug: diphenhydrAMINE 50 mg [diphenhydramine 50 mg/mL injection solution (1 mL)] Route: mlc IM; Site: right gluteus; 03:21 Drug: -Haloperidol Lactate 5 mg [haloperidol lactate 5 mg/mL injection solution (1 mL)] mlc Route: IM; Site: right gluteus; 03:45 Drug: -Haloperidol Lactate 5 mg [haloperidol lactate 5 mg/mL injection solution (1 mL)] [facility] [place] Route: IM; Site: right deltoid; 04:55 Drug: D10 in Water 1 vials [dextrose 10 % in water (D10W) intravenous solution] Route: nn1 IV; Rate: 100 mL/hr; Site: right antecubital; 05:02 Drug: OLANZapine 10 mg [olanzapine 10 mg intramuscular solution (10 mg)] Route: IM; nn1 Site: left gluteus; 05:17 Drug: morphine 4 mg [morphine (PF) 1 mg/mL injection solution (4 mL)] Route: IVP; Site: nn1 right antecubital; Signatures: Dispatcher [employer] EDMS Natalya Torrez RN Salima Daniel, Reg Reg gb Julian Elise RN RN ml6 Anton Kelly, DO DO cs11 Yudi Moore RN RN [facility] Missael Scott, Reg Reg pm4 Toni Spain RN nn1 The chart was reviewed and I authenticate all verbal orders and agree with the evaluation and treatment provided.Attachments: 04:25 [facility] Payment Agreement pm4 13:30 T-Sheet-- Draft Copy gb Chart Complete MTDD
--- NOTE | 2016-07-13 08:29 | EDDOCDS ---
Nurse's Notes [facility] Name: German Diaz Age: 55 yrs Sex: Male : 1960 Arrival Date: 07/11/2016 Time: 02:29 Bed 3 Private MD: Diagnosis: Hypoglycemia, unspecified;Adverse effect of insulin and oral hypoglycemic [antidiabetic] drugs;Alcohol abuse with intoxication;Opioid dependence Presentation: 07/11 02:40 Presenting complaint: Patient states: pt states his called police because she mlc possibly thought that pt overdosed on insulin. pt denies taking extra insulin. Mental Health Triage Level: Level 2: The patient is visibly agitated and appears to be potentially at risk. Adult Sepsis Screening: The patient does not have new or worsening altered mentation. Patient's respiratory rate is less than 22. Systolic blood pressure is greater than 100. Patient has a qSOFA score of 0- Negative Sepsis Screen. 02:40 Acuity: ELZA Level 3 [facility] 02:42 Suicide/Homicide risk assessment- Patient denies SI and HI but presents with another [facility] emotional, behavioral or other mental health complaint. The patient reports that he/she has a prior history of suicide attempt and/or organized plan. Status: Patient is not a service clerk or dependent. Transition of care: patient was not received from another setting of care. 02:42 Method Of Arrival: Police Car [facility] Triage Assessment: 02:47 General: Appears in no apparent distress, comfortable, Behavior is agitated, mlc cooperative. Pain: Pain currently is 10 out of 10 on a pain scale. HIV screening NA for this visit Offered previously. The patient is triaged at the bedside. See Assessment in Nurses Notes section of ED record. Neurological: Level of Consciousness is awake, alert, obeys commands, Oriented to person, place, time. Respiratory: Airway is patent Respiratory effort is even, unlabored, Respiratory pattern is regular. Derm: Skin is pink, warm & dry. Historical: - Allergies: Versed (hallucinations); - Home Meds: 1. aspirin 81 mg Oral chew once daily 2. atorvastatin 10 mg oral tab 1 tab once daily 3. Carafate 1 gram Oral tab 4 times per day 4. citalopram 20 mg Oral tab 1 tab once daily 5. Flomax 0.4 mg Oral cp24 1 cap once daily 6. Humalog 100 unit/mL Sub-Q crtg 100 unit/mL sliding scale before meals 48 units (Last dose: 07/11/2016 01:45) 7. Lantus 100 unit/mL Sub-Q soln 85 units twice a day 50 units (Last dose: 07/11/2016 01:45) 8. lisinopril 10 mg Oral tab 1 tab once daily 9. Lyrica 225mg Oral 2 times per day 10. omeprazole 20 mg Oral cpDR 1 cap once daily 11. OxyContin 20 mg Oral Tb12 1 tab every 12 hours ran out yesterday 12. Vitamin D Oral 1000 unit daily 13. Zofran (as hydrochloride) 4 mg Oral tab every 6 hours - PMHx: Chronic Pain; Depression; Diabetes - IDDM: controlled; Hepatitis C; HTN; previous suicide attempt; - PSHx: colonscopy; endocscopy; Tonsillectomy; Adenoidectomy; left hand; - Social history: Smoking status: Patient states former smoker of tobacco. Patient uses alcohol weekly. No barriers to communication noted, The patient speaks fluent Setswana. - Family history: Not pertinent. - : The pt / caregiver states he / she is not on anticoagulants. Home medication list is obtained from the patient. - Exposure Risk Screening:: None identified. Screenin:49 Screening information is obtained from the patient. Fall risk: No risks identified. mlc Assistance ADL's: Requires assistance with housework, assistance is provided by family members, medication administration, assistance is provided by family members. Abuse/DV Screen: The patient / caregiver reports he/she is: not in a situation that causes fear, pain or injury. Nutritional screening: No deficits noted. Advance Directives: Currently, there is no health care proxy. There is no Power of Glass Smoother. home support is adequate. Assessment: 03:13 General: Appears in no apparent distress, comfortable, Behavior is cooperative. Pain: mlc Location: low back area Pain currently is 10 out of 10 on a pain scale. Neurological: Level of Consciousness is awake, alert, Oriented to person, place, time. Cardiovascular: Capillary refill < 3 seconds Heart tones S1 S2 present. Respiratory: Airway is patent Respiratory effort is even, unlabored, Respiratory pattern is regular, Breath sounds are clear bilaterally. GI: Abdomen is non- distended Bowel sounds present X 4 quads. Abd is soft X 4 quads. Derm: Skin is pink, warm & dry. 03:21 Reassessment: pt moaning and restless. pt medicated per order. . mlc 03:45 Reassessment: Patient appears in no apparent distress at this time. Patient states mlc symptoms have not improved. pt medicated per order. 04:29 General: Behavior is restless, Patient given sandwich box at this time.. Respiratory: nn1 Airway is patent Respiratory effort is even, unlabored, Respiratory pattern is regular. Derm: Skin is pink, warm & dry. 05:02 General: Patient very restless, IV arnold wrapped to protect area. D10 infusing per nn1 orders. Patient reports back pain, states this pain is chronic. Patient medicated per orders. . 05:30 General: Patient calming down at this time, attempting to rest. Will continue to nn1 monitor. . 06:28 General: Patient restless, states he needs more pain medication. Patient instructed nn1 that he cannot receive more pain medication at this time. Patient throwing himself around in stretcher. Reconnected to monitors at this time. D10 infusing per orders . 07:25 General: Appears in no apparent distress, comfortable, Behavior is appropriate for age, ml6 cooperative. Pain: Denies pain. Neurological: No deficits noted. Level of Consciousness is awake, alert, Oriented to person, place, time. Cardiovascular: No deficits noted. Capillary refill < 3 seconds is brisk in bilateral fingers toes Heart tones S1 S2 present Edema is absent. Pulses are all present. Rhythm is sinus rhythm Chest pain is denied. Respiratory: No deficits noted. Airway is patent Respiratory effort is even, unlabored, Respiratory pattern is regular, symmetrical, Breath sounds are clear bilaterally. GI: No deficits noted. Abdomen is flat, non- distended Bowel sounds present X 4 quads. Abd is soft and non tender X 4 quads. Vital Signs: 02:38 BP 126 / 86; Pulse 101; Resp 20; Pulse Ox 96% on R/A; Weight 89.36 kg (M); Height 5 ft. mlc 11 in. (180.34 cm); Pain 10/; 02:42 Temp 98.8(TE); mlc 03:20 BP 126 / 81 (auto/); mlc 03:21 Pulse 109 MON; Pulse Ox 93% ; mlc 03:30 BP 125 / 85 (auto/); mlc 03:30 Pulse 110 MON; mlc 03:42 Pulse 112 MON; mlc 03:43 Pulse 113 MON; mlc 03:45 BP 115 / 69 (auto/); mlc 04:08 BP 138 / 89 (auto/); nn1 04:10 Pulse 112 MON; Pulse Ox 96% ; nn1 04:14 Pulse 106 MON; Pulse Ox 94% ; nn1 04:15 BP 139 / 77 (auto/); nn1 04:15 Pulse 106 MON; nn1 04:30 BP 144 / 82 (auto/); nn1 04:30 Pulse 130 MON; Pulse Ox 97% ; nn1 04:45 BP 159 / 91 (auto/); nn1 04:45 Pulse 128 MON; nn1 05:00 BP 143 / 81 (auto/); nn1 05:00 Pulse 118 MON; nn1 05:15 BP 134 / 80 (auto/); nn1 05:15 Pulse 117 MON; Pulse Ox 96% ; nn1 07:00 BP 116 / 67 (auto/); ml6 07:00 Pulse 102 MON; Resp 16; Pulse Ox 98% on R/A; Pain 0/10; ml6 07:15 BP 116 / 79 (auto/); ml6 07:15 Pulse 106 MON; Resp 16; Temp 98.7(O); Pulse Ox 98% on R/A; Pain 0/10; ml6 02:38 Body Mass Index 27.48 (89.36 kg, 180.34 cm) [facility] Vitals: 02:38 Log In Time N/A - ambulance arrival. [facility] ED Course: 02:30 Patient visited by Hugo Moreno Dredgemaster. ml3 02:30 Patient moved to Waiting ml3 02:31 Yudi Moore,[place] is Primary Nurse. ml3 02:31 Patient moved to 3 ml3 02:34 Anton Kelly DO is Attending Physician. cs11 02:34 Patient visited by Anton Kelly DO. cs11 02:42 Triage Initiated mlc 02:49 Patient visited by Yudi Moore RN. mlc 03:12 Acetaminophen Level Sent. mlc 03:12 Basic Metabolic Profile Sent. mlc 03:12 Complete Blood Count Sent. mlc 03:12 Ethyl Alcohol (ethanol) Sent. mlc 03:12 Liver Profile Sent. mlc 03:12 Salicylate Level Sent. mlc 03:12 Thyroid Stimulating Hormone Sent. mlc 03:13 The patient / caregiver is instructed regarding the plan of care and ED course. Cardiac mlc monitor on. Pulse ox on. NIBP on. 03:13 Labs drawn. (by ED staff). Sent per order to lab. mlc 03:21 Patient visited by Yudi Moore RN. mlc 03:30 Patient visited by Yudi Moore,[place]. mlc 03:46 Patient visited by Yudi Moore RN. mlc 04:06 Drug Eval Toxicology ED Only Sent. mlc 04:25 [facility] Payment Agreement was scanned into [employer] and attached to record. pm4 04:44 Patient visited by Toni Spain RN. nn1 04:44 Inserted saline lock: 20 gauge in right antecubital area and blood collected. The nn1 patient tolerated the procedure well. 05:21 Alla Mckeon is Hospitalizing Provider. cs11 07:18 Primary Nurse role handed off by Yudi Moore RN kr3 07:26 No procedures done that require assistance. ml6 13:30 T-Sheet-- Draft Copy was scanned into [employer] and attached to record. gb Administered Medications: 03:20 Drug: diphenhydrAMINE 50 mg [diphenhydramine 50 mg/mL injection solution (1 mL)] Route: mlc IM; Site: right gluteus; 03:21 Drug: -Haloperidol Lactate 5 mg [haloperidol lactate 5 mg/mL injection solution (1 mL)] mlc Route: IM; Site: right gluteus; 03:45 Drug: -Haloperidol Lactate 5 mg [haloperidol lactate 5 mg/mL injection solution (1 mL)] mlc Route: IM; Site: right deltoid; 04:55 Drug: D10 in Water 1 vials [dextrose 10 % in water (D10W) intravenous solution] Route: nn1 IV; Rate: 100 mL/hr; Site: right antecubital; 05:02 Drug: OLANZapine 10 mg [olanzapine 10 mg intramuscular solution (10 mg)] Route: IM; nn1 Site: left gluteus; 05:17 Drug: morphine 4 mg [morphine (PF) 1 mg/mL injection solution (4 mL)] Route: IVP; Site: nn1 right antecubital; Point of Care Testing: Blood Glucose: 02:38 Blood Glucose: 228 mg/dL; mlc 03:30 Blood Glucose: 124 mg/dL; mlc 05:30 Blood Glucose: 105 mg/dL; nn1 06:29 Blood Glucose: 81 mg/dL; nn1 Ranges: Order Results: Lab Order: Fingerstick Blood Sugar; SPEC'M 07/11/16 02:37 Test: BEDSIDE GLUCOSE; Value: 228; Range: 70-105; Abnormal: Above high normal; Units: MG/DL; Status: F Test Note: ; RN Notified Serum Blood Draw Lab Order: Acetaminophen Level; SPEC'M 07/11/16 03:08 Test: ACETAMINOPHEN LEVEL; Value: < 2.0; Range: 10.0-30.0; Abnormal: Below low normal; Units: UG/ML; Status: F Lab Order: Basic Metabolic Profile; SPEC'M 07/11/16 03:08 Test: GLUCOSE, FASTING; Value: 184; Range: 70-105; Abnormal: Above high normal; Units: MG/DL; Status: F Test: BLOOD UREA NITROGEN; Value: 8; Range: 7-18; Units: MG/DL; Status: F Test: CREATININE FOR GFR; Value: 0.71; Range: 0.70-1.30; Units: MG/DL; Status: F Test: GLOMERULAR FILTRATION RATE; Value: > 60.0; Range: >56; Status: F Test: SODIUM LEVEL; Value: 142; Range: 136-145; Units: MEQ/L; Status: F Test: POTASSIUM SERUM; Value: 3.4; Range: 3.5-5.1; Abnormal: Below low normal; Units: MEQ/L; Status: F Test: CHLORIDE LEVEL; Value: 105; Range: 98-107; Units: MEQ/L; Status: F Test: CARBON DIOXIDE LEVEL; Value: 25; Range: 21-32; Units: MEQ/L; Status: F Test: ANION GAP; Value: 12; Range: 8-16; Units: MEQ/L; Status: F Test: CALCIUM LEVEL; Value: 8.6; Range: 8.5-10.1; Units: MG/DL; Status: F Test Note: ; Units are mL/min/1.73 m2 Chronic Kidney Disease Staging per NKF: Stage I & II GFR >=60 Normal to Mildly Decreased Stage III GFR 30-59 Moderately Decreased Stage IV GFR 15-29 Severely Decreased Stage V GFR <15 Very Little GFR Left ESRD GFR <15 on FIELD EVIDENCE TECHNICIAN Lab Order: Complete Blood Count; SPEC'M 07/11/16 03:08 Test: WHITE BLOOD COUNT; Value: 8.0; Range: 4.0-10.0; Units: K/mm3; Status: F Test: RED BLOOD COUNT; Value: 5.21; Range: 4.30-6.10; Units: M/mm3; Status: F Test: HEMOGLOBIN; Value: 16.2; Range: 14.0-18.0; Units: g/dl; Status: F Test: HEMATOCRIT; Value: 47.1; Range: 42.0-52.0; Units: %; Status: F Test: MEAN CORPUSCULAR VOLUME; Value: 90.4; Range: 80.0-96.0; Units: fl; Status: F Test: MEAN CORPUSCULAR HEMOGLOBIN; Value: 31.0; Range: 27.0-33.0; Units: pg; Status: F Test: MEAN CORPUSCULAR HGB CONC; Value: 34.3; Range: 32.0-36.5; Units: g/dl; Status: F Test: RED CELL DISTRIBUTION WIDTH; Value: 12.2; Range: 11.5-14.5; Units: %; Status: F Test: PLATELET COUNT, AUTOMATED; Value: 154; Range: 150-450; Units: k/mm3; Status: F Lab Order: Drug Eval Toxicology ED Only; SPEC'M 07/11/16 04:07 Test: AMPHETAMINES LEVEL URINE; Value: NEGATIVE; Range: NEGATIVE; Status: F Test: BARBITURATES URINE; Value: NEGATIVE; Range: NEGATIVE; Status: F Test: BENZODIAZEPINES URINE; Value: NEGATIVE; Range: NEGATIVE; Status: F Test: CANNABINOIDS URINE; Value: NEGATIVE; Range: NEGATIVE; Status: F Test: COCAINE METABOLITE URINE; Value: NEGATIVE; Range: NEGATIVE; Status: F Test: METHADONE URINE; Value: NEGATIVE; Range: NEGATIVE; Status: F Test: OPIATES URINE; Value: POSITIVE; Range: NEGATIVE; Abnormal: Above high normal; Status: F Test: TRICYCLIC ANTIDEPRESS URINE; Value: NEGATIVE; Range: NEGATIVE; Status: F Test Note: ; ALL PRESUMPTIVE POSITIVE FINDINGS ARE UNCONFIRMED NORMAL VALUES THRESHOLD IN NG/ML AMPHETAMINES 1000 METHAMPHETAMINES 1000 BARBITURATES 300 BENZODIAZEPINES 300 CANNABINOIDS (THC) 50 COCAINE METABOLITE 300 METHADONE 300 OPIATES 300 PHENCYCLIDINE 25 TRICYCLIC ANTIDEPRESSANTS 1000 RESULTS ARE FOR MEDICAL PURPOSES ONLY. ALL URINE SPECIMENS WILL BE SAVED FOR 3 DAYS. IF CONFIRMATION OF A PRESUMPTIVE POSTIVE SCREEN RESULT IS DESIRED, CALL CHEMISTRY ([phone]) AND REQUEST URINE TO BE SENT TO REFERENCE LAB. FOR A LIST OF CLOSELY RELATED COMPOUNDS PLEASE CALL THE LAB. Lab Order: Ethyl Alcohol (ethanol); SPEC'07/11/16 03:08 Test: ETHYL ALCOHOL (ETHANOL); Value: 0.231; Range: 0.000-0.010; Abnormal: Above high normal; Units: %; Status: F Lab Order: Liver Profile; SPEC07/11/16 03:08 Test: AST/SGOT; Value: 16; Range: 15-37; Units: U/L; Status: F Test: ALT/SGPT; Value: 24; Range: 12-78; Units: U/L; Status: F Test: ALKALINE PHOSPHATASE; Value: 73; Range: 45-117; Units: U/L; Status: F Test: BILIRUBIN,TOTAL; Value: 0.3; Range: 0.2-1.0; Units: MG/DL; Status: F Test: BILIRUBIN,DIRECT; Value: 0.1; Range: 0.0-0.2; Units: MG/DL; Status: F Test: TOTAL PROTEIN; Value: 7.3; Range: 6.4-8.2; Units: GM/DL; Status: F Test: ALBUMIN; Value: 3.8; Range: 3.2-5.2; Units: GM/DL; Status: F Test: ALBUMIN/GLOBULIN RATIO; Value: 1.09; Range: 1.00-1.93; Status: F Lab Order: Salicylate Level; SPEC07/11/16 03:08 Test: SALICYLATE LEVEL; Value: < 1.7; Range: 5.0-30.0; Abnormal: Below low normal; Units: MG/DL; Status: F Lab Order: Thyroid Stimulating Hormone; SPEC07/11/16 03:08 Test: THYROID STIMULATING HORMONE; Value: 0.134; Range: 0.358-3.740; Abnormal: Below low normal; Units: uIU/ML; Status: F Lab Order: Fingerstick Blood Sugar; SPEC'M 07/11/16 03:28 Test: BEDSIDE GLUCOSE; Value: 124; Range: 70-105; Abnormal: Above high normal; Units: MG/DL; Status: F Test Note: ; RN Notified Dr Order not to Draw Lab Order: Fingerstick Blood Sugar; SPEC' 07/11/16 04:26 Test: BEDSIDE GLUCOSE; Value: 57; Range: 70-105; Abnormal: Below low normal; Units: MG/DL; Status: F Test Note: ; Dr Order not to Draw RN Notified Lab Order: Fingerstick Blood Sugar; SPEC' 07/11/16 04:54 Test: BEDSIDE GLUCOSE; Value: 73; Range: 70-105; Units: MG/DL; Status: F Lab Order: Fingerstick Blood Sugar; SPEC' 07/11/16 05:29 Test: BEDSIDE GLUCOSE; Value: 105; Range: 70-105; Units: MG/DL; Status: F Lab Order: Fingerstick Blood Sugar; SPEC' 07/11/16 06:24 Test: BEDSIDE GLUCOSE; Value: 81; Range: 70-105; Units: MG/DL; Status: F Outcome: 05:22 Decision to Hospitalize by Provider. 11 07:09 No special radiology studies were completed. Property secured in. [facility] 07:17 Admission hand-off: Report called to [place] Royal. [facility] 07:26 Discharge Assessment: patient administered narcotics - yes. Patient was admitted to the [address] or transferred to another facility. The following High Risk Discharge criteria are identified: None. Admitted to ICU accompanied by nurse, accompanied by tech, via stretcher, on monitor, with chart. Condition: stable. 07:27 Patient left the ED. [facility] Signatures: Salima Rothman, Reg Reg gb Hugo Moreno, Dredgemaster Unit 3 Genesis Hernández,RN RN [id number] Julian Elise RN RN 6 Anton Kelly, DO DO cs11 Yudi Moore RN RN mlc Toni Spain RN RN nn1 Missael Sctot, Reg Reg pm4 Chart Complete MTDD
[2016-07-13] MEDS: oxyCODONE 20 MG CR TAB PO SCH (08:30)
[2016-07-13] MEDS: MULTIVITAMINS/MINERALS THERAP 1 TAB PO SCH (08:30)
[2016-07-13 08:31] VITALS: BP 125/66
[2016-07-13] MEDS: SUCRALFATE 1 GM TAB PO SCH ×3 (08:31→18:11)
[2016-07-13] MEDS: TAMSULOSIN 0.4 MG CAP PO SCH (08:31)
[2016-07-13] MEDS: OMEPRAZOLE 20 MG CAP PO SCH (08:31)
[2016-07-13] MEDS: LISINOPRIL 10 MG TAB PO SCH (08:31)
[2016-07-13] MEDS: ASPIRIN 81 MG ENTERIC TAB PO SCH (08:31)
[2016-07-13] MEDS: VITAMIN D 1,000 INTERNATIONAL UNITS TABLET PO SCH (08:31)
[2016-07-13] MEDS: FOLIC ACID 1 MG TAB PO SCH (08:31)
[2016-07-13] MEDS: THIAMINE 100 MG TAB PO SCH (08:31)
[2016-07-13] MEDS: CitaloPRAM (CeleXA) 20 MG TAB PO SCH (08:31)
[2016-07-13] MEDS: PREGABALIN 75 MG CAP(LYRICA) PO SCH (08:32)
[2016-07-13] MEDS: ENOXAPARIN 40 MG/0.4 ML SYRINGE (J1650) SC SCH (08:32)
[2016-07-13] MEDS: HumaLOG INSULIN (NovoLOG) PER UNIT SC SCH ×3 (08:33→18:11)
[2016-07-13 09:00] VITALS: BP 157/85
[2016-07-13] MEDS ORDERED: LEVEMIR (INSULIN DETEMIR) 1 UNITS/0.01ML SC SCH ×3 (09:00→21:00)
[2016-07-13] MEDS ORDERED: INSUDET SC ×2 (12:18)
--- NOTE | 2016-07-13 13:59 | DS.PDOC ---
Discharge Summary General Date of Admission Jul 11, 2016 at 05:30 Date of Discharge 07/13/16 Attending Physician: ECTOR DOVE MD Specialist/Consultants Involve: RAJANI AYOUB MD Discharge Summary PROCEDURES PERFORMED DURING STAY: None. COMPLICATIONS/CHIEF COMPLAINT: Insulin Overdose ADMISSION/DISCHARGE DIAGNOSES: 1. Insulin Overdose with h/o 4 suicide attempts 2. Diabetes Mellitus 3. Alcohol Abuse 4. History of atrial fibrillation 5. History of anxiety 6. History of hypertension 7. Severe COPD 8. Chronic hepatitis C 9. History of CVA in 2008 with no residual deficits. HISTORY OF PRESENT ILLNESS/HOSPITAL COURSE: This is a 55 y/o M with PMHx prior suicide attempts most recently 3 weeks ago and DM who presents with an insulin overdose. Patient states that he is not sure how much insulin he typically takes. He states that his generally draws up the insulin and the syringe. He states that he did not have his glasses on when he took his insulin. The story seems to be inconsistent by medical staff as well as the patient. Patient was initially placed on D10 followed by D5 given his hypoglycemia. He is now medically stable and his Levemir doses have been adjusted. I have spoken to Dr. Ayoub who will be admitting the patient to his service in the inpatient psychiatric unit. DISCHARGE MEDICATIONS: Please see below. ALLERGIES: Please see below. PHYSICAL EXAMINATION ON DISCHARGE: VITAL SIGNS: Please see below. Vitals: (see below) General: No acute distress, laying comfortably in bed. HEENT: Moist mucous membranes. Neck: No JVD or lymphadenopathy Cardiac: RRR, No murmurs Pulm: Clear to auscultation b/l. No wheezing, rhonchi Abd: NT/ND + BS Ext: No edema or cyanosis LABORATORY DATA: Please see below. IMAGING: VTE Prophylaxis ordered?: Yes DISCHARGE CONDITION: Stable DISPOSITION: D/c to inpatient psych under the care of Psych. ACTIVITY: As tolerated DIET: Carb consistent DISCHARGE PLAN AND INSTRUCTIONS: 1. F/u with PCP and Psychiatry in 1-2 weeks after being d/c from inpatient psych. TIME SPENT ON DISCHARGE: Greater than 30 minutes. Vital Signs/I&Os Vital Signs Date Time Temp Pulse Resp B/P Pulse Ox O2 Delivery O2 Flow Rate FiO2 07/13/16 08:31 125/66 07/13/16 08:30 18 07/13/16 06:00 98.2 78 95 Room Air I&O- Last 24 Hours up to 6 AM 07/13/16 06:00 Intake Total 2340 ml Output Total 800 ml Balance 1540 ml Laboratory Data Labs 24H Laboratory Tests 2 07/12/16 17:17: Bedside Glucose (Misc Panel) 321H 07/12/16 20:21: Bedside Glucose (Misc Panel) 241H 07/13/16 05:37: Anion Gap 9, Blood Urea Nitrogen 10, Creatinine 0.78, Sodium Level 140, Potassium Level 3.9, Chloride Level 104, Carbon Dioxide Level 27, Calcium Level 8.4L, Glomerular Filtration Rate > 60.0 07/13/16 11:40: Bedside Glucose (Misc Panel) 214H CBC/BMP Laboratory Tests 07/13/16 05:37 Calcium Level 8.4 L, Red Blood Count 4.54, Mean Corpuscular Volume 90.5, Mean Corpuscular Hemoglobin 30.9, Mean Corpuscular Hemoglobin Concent 34.2, Red Cell Distribution Width 13.0 FSBS Laboratory Tests Test 07/12/16 17:17 07/12/16 20:21 07/13/16 11:40 Range/Units Bedside Glucose (Misc Panel) 321 241 214 70-105 MG/DL Microbiology Microbiology 07/11/16 MRSA Screen - Final, Complete Medications Scheduled Aspirin (Aspirin EC) 81 Mg Tabec 81 MG PO DAILY Atorvastatin Calcium (Atorvastatin Calcium) 10 Mg Tab 10 MG PO QHS Cholecalciferol (Vitamin D) 1,000 Unit Tab 1,000 UNIT PO DAILY Citalopram Hydrobromide (Citalopram Hydrobromide) 20 Mg Tab 20 MG PO DAILY Insulin Detemir (Levemir) 1 Units/0.01 Ml Susp 20 UNITS SC QAM Insulin Detemir (Levemir) 1 Units/0.01 Ml Susp 10 UNITS SC QHS Insulin Glargine (Lantus) 1 Units/0.01 Ml Susp 50 UNITS SC BID Insulin Human Lispro (Humalog) 1 Units/0.01 Ml Inj 1 DOSE SC ACHS Lisinopril (Lisinopril) 10 Mg Tab 10 MG PO DAILY Omeprazole (Omeprazole) 20 Mg Cap 20 MG PO DAILY Oxycodone HCl (Oxycontin) 20 Mg Tab 20 MG PO BID Pregabalin (Lyrica) 225 Mg Cap 225 MG PO BID Sucralfate (Carafate) 1 Gm Tab 1 GM PO ACHS Tamsulosin Hydrochloride (Flomax) 0.4 Mg Cap 0.4 MG PO DAILY Trazodone HCl (Trazodone HCl) 50 Mg Tab 50 MG PO QHS Scheduled PRN Meclizine HCl (Meclizine HCl) 25 Mg Tab 25 MG PO DAILY PRN PRN DIZZINESS Ondansetron HCl (Zofran) 4 Mg Tab 4 MG PO Q6H PRN PRN NAUSEA Polyethylene Glycol (Miralax) 1 Pow Pow 17 GM PO BID PRN PRN CONSTIPATION Allergies Coded Allergies: Diazepam (Verified Allergy, Unknown, 11/01/13) TAPE (Verified Allergy, Unknown, 12/02/13) Midazolam (Verified Adverse Reaction, Intermediate, "GO CRAZY", 02/15/13) ECTOR DOVE MD Jul 13, 2016 13:59
[2016-07-13 14:00] VITALS: BP 143/81
[2016-07-13 17:59] VITALS: BP 136/84
--- NOTE | 2016-07-14 10:03 | CR.PDOC ---
[facility] Consultation Consultation DATE OF CONSULTATION: Jul 11, 2016 at 02:29 PRIMARY CARE PHYSICIAN: REFERRING PROVIDER: ATTENDING PHYSICIAN: REASON FOR CONSULTATION/CHIEF COMPLAINT: . HISTORY OF PRESENT ILLNESS: . ALLERGIES: Please see below. HOME MEDICATIONS: Please see below. PAST MEDICAL HISTORY: 1. . 2. . PAST SURGICAL HISTORY: 1. 2. FAMILY HISTORY: Father: Mother: Siblings: Children: Hereditary Diseases: Unexpected deaths due to medical reasons: SOCIAL HISTORY: Marital status and/or living arrangements: Children: Employment: Tobacco use: ETOH: Illicit drug use: IV drug use: Other relevant social factors: REVIEW OF SYSTEMS: CONSTITUTIONAL: . HEENT: . CARDIOVASCULAR: . RESPIRATORY: . GENITOURINARY: . MUSCULOSKELETAL: . GASTROINTESTINAL: . SKIN: . NEUROLOGICAL: . PSYCHIATRIC: . ENDOCRINE: . HEMATOLOGIC/LYMPHATIC: . ALLERGIC/IMMUNOLOGIC: . PHYSICAL EXAMINATION: VITAL SIGNS: Please see below. GENERAL APPEARANCE: . HEENT: . RESPIRATORY: . CARDIOVASCULAR: . ABDOMEN: . EXTREMITIES: . NEUROLOGICAL: . PSYCHIATRIC: . LABORATORY DATA: Please see below. ASSESSMENT/PLAN: 1. . 2. . Vital Signs/I&O Vital Signs Date Time Temp Pulse Resp B/P Pulse Ox O2 Delivery O2 Flow Rate FiO2 07/13/16 17:59 97.6 86 20 136/84 95 Room Air I&O- Last 24 Hours up to 6 AM 07/14/16 06:00 Intake Total 2160 ml Balance 2160 ml Laboratory Data Labs 24H Laboratory Tests 2 07/13/16 11:40: Bedside Glucose (Misc Panel) 214H 07/13/16 17:02: Bedside Glucose (Misc Panel) 259H FSBS Laboratory Tests Test 07/13/16 11:40 07/13/16 17:02 Range/Units Bedside Glucose (Misc Panel) 214 259 70-105 MG/DL Microbiology Microbiology 07/11/16 MRSA Screen - Final, Complete Allergies Coded Allergies: Diazepam (Verified Allergy, Unknown, 11/01/13) TAPE (Verified Allergy, Unknown, 12/02/13) Midazolam (Verified Adverse Reaction, Intermediate, "GO CRAZY", 02/15/13) Home Medications Scheduled Aspirin (Aspirin EC) 81 Mg Tabec 81 MG PO DAILY (Reported) Atorvastatin Calcium (Atorvastatin Calcium) 10 Mg Tab 10 MG PO QHS (Reported) Cholecalciferol (Vitamin D) 1,000 Unit Tab 1,000 UNIT PO DAILY (Reported) Citalopram Hydrobromide (Citalopram Hydrobromide) 20 Mg Tab 20 MG PO DAILY ( Reported) Insulin Detemir (Levemir) 1 Units/0.01 Ml Susp #1 20 UNITS SC QAM Insulin Detemir (Levemir) 1 Units/0.01 Ml Susp #1 10 UNITS SC QHS Insulin Human Lispro (Humalog) 1 Units/0.01 Ml Inj 1 DOSE SC ACHS (Reported) Lisinopril (Lisinopril) 10 Mg Tab 10 MG PO DAILY (Reported) Omeprazole (Omeprazole) 20 Mg Cap 20 MG PO DAILY (Reported) Pregabalin (Lyrica) 225 Mg Cap 225 MG PO BID (Reported) Sucralfate (Carafate) 1 Gm Tab 1 GM PO ACHS (Reported) Tamsulosin Hydrochloride (Flomax) 0.4 Mg Cap 0.4 MG PO DAILY (Reported) Trazodone HCl (Trazodone HCl) 50 Mg Tab 50 MG PO QHS (Reported) Scheduled PRN Meclizine HCl (Meclizine HCl) 25 Mg Tab 25 MG PO DAILY PRN PRN DIZZINESS ( Reported) Ondansetron HCl (Zofran) 4 Mg Tab 4 MG PO Q6H PRN PRN NAUSEA (Reported) Polyethylene Glycol (Miralax) 1 Pow Pow 17 GM PO BID PRN PRN CONSTIPATION ( Reported) RAJANI AYOUB MD Jul 14, 2016 10:03
--- NOTE | 2016-07-14 15:43 | CR.PDOC ---
[facility] Consultation Consultation DATE OF CONSULTATION: 07/12/16 CONSULTATION REQUESTED BY: Hospitalist REASON FOR CONSULTATION: [Since that is status post suicide attempt by overdose on insulin]. HPI: [This is a 55-year-old male with past psychiatric history significant for major depressive disorder recurrent severe. Patient is well known to the department. Patient has had over 5 admissions for suicide attempts at [facility]. Patient was last at [facility] two-weeks ago before similar presentation, status post suicide attempt. Patient reports his primary stressor causing him to hurt himself is his recently being told by his primary care provider that he will be tapered off of his opiate pain management. Patient reports being angered by the doctor telling him that his reasoning was that he did not want him to overdose on his pain pills. Overdose is the primary means of patient's prior suicide attempts. Patient reports feeling like he would show the doctor that he could overdose on anything. Patient went home from the appointment and per patient injected himself with greater than 5 units more insulin than he is scheduled. Patient's subsequently had an altered mental status and presented to the emergency department altered and with derangement of labs. On interview today patient endorses the fact that it was a suicide attempt. He reports he was doing to spite his primary care provider. Currently patient is alert and oriented 3. He is calm and cooperative and engages the conversation fully. His thought process is linear and goal-directed. Patient shows insight that he will be going to the psychiatric unit and understood that he would likely be transferred because of his suicide attempt. She reports his mood is depressed. He though currently denies suicidal ideations and homicidal ideations and he denies auditory hallucinations and visual hallucinations. Patient has been appropriate in his statements and his behavior. No signs of psychosis have been reported or observed.]. PAST PSYCHIATRIC HISTORY: [Inpatient - patient has greater than 5 hospitalizations for worsening depression and/ or suicide attempts.] This patient has additional admissions for alcohol related issues. Patient feels that each admission has helped improve his state of mind at time of admission. Patient denies any type of visual sexual abuse or domestic violence issues. Patient states he has never used drugs. Patient minimizes alcohol use, stating he only drinks 4-5 beers once a month for special occasions only. Allergies Coded Allergies: Diazepam (Verified Allergy, Unknown, 11/01/13) TAPE (Verified Allergy, Unknown, 12/02/13) Midazolam (Verified Adverse Reaction, Intermediate, "GO CRAZY", 02/15/13) Past Medical History Medical History COPD Diabetes mellitus type 2 hepatitis C DJD Dupuytren's contractures of hands and feet CVA 2 in 2008 (no residual effects) Adjustment disorder with mixed anxiety/depression Depression with prior suicidal attempts Alcohol abuse Grade 1 diastolic CHF Surgical History Most recent echocardiogram October 2014 EF 60%, grade 1 diastolic dysfunction, borderline LVH EGD and colonoscopy 2015; hemorrhoids otherwise unremarkable Liver biopsy 2007 Tonsillectomy Multiple hand injections Dupuytren's contracture release of left hand when he 12 Family History Patient did not discuss admissions for alcohol intoxication with this marine underwriter. Patient denies any history of any psychiatric or mental health illness within his family. Patient states "I'm the only one ". Family History Father had heart failure, CVA, [place] at 78 years old. Mother had heart failure, [place], hypertension, throat cancer, at 63 years old. He has one brother is alive at 59 years old who has had a quadruple bypass. He has 3 sons and 1 daughter who are all healthy Social History * Smoker: non-smoker Alcohol: heavy Drugs: denies Social History Lives at home with his . The patient was born and raised in [place]. Resides in: [place] Marital Status: M Children: [3 sons and 1 daughter] Employment: Currently unemployed MENTAL STATUS EXAMINATION: Patient is a 55-year-old male, calm, cooperative, engages in interview, looking stated age, in no acute distress] Speech: Is [pressured, tangential, circumstantial, flight of ideas, rate, volume, articulate, coherent, and spontaneous]. Thought processes: [Linear and Goal directed.] Rate of thoughts: [Within normal limits]. Thought content: [Irrational, attempting to harm himself to prove to his PCP that you can overdose on any medication]. Abstract reasoning: [Poor]. Associations: [Tangential] Abnormal or psychotic thoughts: [No perceptual issues reported or noted] Judgment: [Fair] Insight: [Poor] Oriented to: [Time, place and person.] Recent and Remote Memory: [Immediate, short-term and long-term memory is intact] . Attention Span and Concentration: [Fair]. Fund of knowledge: [.Good]. Mood: [Irrational] Affect: [Constricted]. PROBLEM LIST: 1. Multiple suicide attempts. 2. Decreased coping mechanisms. 3. Chronic pain issues. 4. Denial of alcohol effects. DIAGNOSES: 1. Alcohol use disorder. 2. Depression. 3. Chronic pain disorder. Plan: ---- 1.~ ~ Patient was admitted on a 9.30 legal status, 2.~ ~ Complete history was obtained. 3.~ ~ With patients permission, family will be contacted and database will be expanded. 4.~ ~ Patients medication regimen will be reviewed and continued accordingly, per his recent medication list from this recent medical floor admission. Continue current psychotropic medication regimen. 5.~ ~ Patient will be provided with protected environment. 6.~ ~ Patient will be treated with individual, group, and milieu therapies. 7.~ ~ Patient will receive supportive psych-education. 8.~ ~ Discharge planning will commence immediately. 9.~ ~ Length of patients stay will be between 7-10 days 10.~ Outpatient follow-up treatment will be strongly recommended. Time spent on this admission [60] min. Vital Signs Vital Sign - Last 24 Hours 07/13/16 17:59 Temp 97.6 Pulse 86 Resp 20 B/P 136/84 Pulse Ox 95 O2 Delivery Room Air Laboratory Data 24H Labs Laboratory Tests 2 07/13/16 17:02: Bedside Glucose (Misc Panel) 259H Home Medications Current Medications Current Medications Medications (Trade) Dose Ordered Sig/Kuldeep Route PRN Reason Start Time Stop Time Status Last Admin Dose Admin Aspirin (Ecotrin) 81 mg DAILY PO 07/11/16 09:00 07/13/16 18:25 DC 07/13/16 08:31 Atorvastatin Calcium (Lipitor) 10 mg QHS PO 07/11/16 21:00 07/13/16 18:25 DC 07/12/16 19:44 Citalopram Hydrobromide (CeleXA) 20 mg DAILY PO 07/11/16 09:00 07/13/16 18:25 DC 07/13/16 08:31 Dextrose (Dextrose 10%) 1,000 ml @ 100 mls/hr Q10H IV 07/11/16 04:45 07/11/16 10:52 DC Dextrose (Dextrose 50%) 25 ml ASDIRECTED PRN IV SEE LABEL COMMENTS 07/11/16 23:00 07/13/16 18:25 DC Dextrose/Water (Dextrose 5%) 1,000 ml @ 25 mls/hr Q24H IV 07/11/16 11:00 07/11/16 23:27 DC 07/11/16 21:02 Enoxaparin Sodium (Lovenox) 40 mg DAILY SC 07/11/16 09:00 07/13/16 18:25 DC 07/13/16 08:32 Folic Acid (Folic Acid) 1 mg DAILY PO 07/11/16 09:00 07/13/16 18:25 DC 07/13/16 08:31 Glucagon (Glucagon) 1 mg ASDIRECTED PRN SC SEE LABEL COMMENTS 07/11/16 23:00 07/13/16 18:25 DC Glucose (Glucose) 16 GM ASDIRECTED PRN PO SEE LABEL COMMENTS 07/11/16 23:00 07/13/16 18:25 DC Home Med (Med Rec Complete!) ASDIRECTED XX 07/11/16 06:00 07/11/16 06:00 DC Insulin Detemir (Levemir Insulin) 10 units QHS SC 07/13/16 21:00 07/13/16 21:00 DC Insulin Detemir (Levemir Insulin) 20 units QAM SC 07/12/16 09:00 07/13/16 07:57 DC 07/12/16 08:53 Insulin Detemir (Levemir Insulin) 20 units QAM SC 07/13/16 09:00 07/13/16 18:25 DC 07/13/16 08:37 Insulin Detemir (Levemir Insulin) 30 units QAM SC 07/13/16 09:00 07/13/16 09:00 DC Insulin Human Lispro (HumaLOG INSULIN) SEE PROTOCOL TABLE AC SC 07/12/16 07:30 07/13/16 18:25 DC 07/13/16 18:11 Insulin Human Lispro (HumaLOG INSULIN) SEE PROTOCOL TABLE QHS SC 07/11/16 21:00 07/13/16 18:25 DC Lisinopril (Prinivil) 10 mg DAILY PO 07/11/16 09:00 07/13/16 18:25 DC 07/13/16 08:31 Meclizine HCl (Antivert) 25 mg DAILY PRN PO DIZZINESS 07/11/16 06:45 07/13/16 18:25 DC Multivitamins (Theragram-M) 1 tab DAILY PO 07/12/16 09:00 07/13/16 18:25 DC 07/13/16 08:30 Omeprazole (PriLOSEC) 20 mg DAILY PO 07/11/16 09:00 07/13/16 18:25 DC 07/13/16 08:31 Ondansetron HCl (Zofran) 4 mg Q6H PRN PO NAUSEA 07/11/16 06:45 07/13/16 18:25 DC Oxycodone HCl (OxyCONTIN) 20 mg BID PO 07/11/16 09:00 07/11/16 09:00 DC Oxycodone HCl 20 mg 20 mg BID PO 07/11/16 09:00 07/13/16 18:25 DC 07/13/16 08:30 Polyethylene Glycol (Miralax) 1 pkt BIDP PRN PO CONSTIPATION 07/11/16 06:45 07/13/16 18:25 DC Pregabalin (Lyrica) 225 mg BID PO 07/11/16 09:00 07/13/16 18:25 DC 07/13/16 08:32 Sucralfate (Carafate) 1 gm ACHS PO 07/11/16 07:30 07/13/16 18:25 DC 07/13/16 18:11 Tamsulosin HCl (Flomax) 0.4 mg DAILY PO 07/11/16 09:00 07/13/16 18:25 DC 07/13/16 08:31 Thiamine HCl (Thiamine HCl) 100 mg DAILY PO 07/11/16 09:00 07/13/16 18:25 DC 07/13/16 08:31 Trazodone HCl (Desyrel) 50 mg QHS PO 07/11/16 21:00 07/13/16 18:25 DC 07/12/16 19:44 Vitamin D (Vitamin D) 1,000 units DAILY PO 07/11/16 09:00 07/13/16 18:25 DC 07/13/16 08:31 Scheduled Aspirin (Aspirin EC) 81 Mg Tabec 81 MG PO DAILY (Reported) Atorvastatin Calcium (Atorvastatin Calcium) 10 Mg Tab 10 MG PO QHS (Reported) Cholecalciferol (Vitamin D) 1,000 Unit Tab 1,000 UNIT PO DAILY (Reported) Citalopram Hydrobromide (Citalopram Hydrobromide) 20 Mg Tab 20 MG PO DAILY ( Reported) Insulin Detemir (Levemir) 1 Units/0.01 Ml Susp 20 UNITS SC QAM Insulin Detemir (Levemir) 1 Units/0.01 Ml Susp 10 UNITS SC QHS Insulin Human Lispro (Humalog) 1 Units/0.01 Ml Inj 1 DOSE SC ACHS (Reported) Lisinopril (Lisinopril) 10 Mg Tab 10 MG PO DAILY (Reported) Omeprazole (Omeprazole) 20 Mg Cap 20 MG PO DAILY (Reported) Pregabalin (Lyrica) 225 Mg Cap 225 MG PO BID (Reported) Sucralfate (Carafate) 1 Gm Tab 1 GM PO ACHS (Reported) Tamsulosin Hydrochloride (Flomax) 0.4 Mg Cap 0.4 MG PO DAILY (Reported) Trazodone HCl (Trazodone HCl) 50 Mg Tab 50 MG PO QHS (Reported) Scheduled PRN Meclizine HCl (Meclizine HCl) 25 Mg Tab 25 MG PO DAILY PRN PRN DIZZINESS ( Reported) Ondansetron HCl (Zofran) 4 Mg Tab 4 MG PO Q6H PRN PRN NAUSEA (Reported) Polyethylene Glycol (Miralax) 1 Pow Pow 17 GM PO BID PRN PRN CONSTIPATION ( Reported) Allergies Coded Allergies: Diazepam (Verified Allergy, Unknown, 11/01/13) TAPE (Verified Allergy, Unknown, 12/02/13) Midazolam (Verified Adverse Reaction, Intermediate, "GO CRAZY", 02/15/13) RAJANI AYOUB MD Jul 14, 2016 15:43
== END 2016-07-13 18:25 | DRG 812 ==
LOC: M ED 02:29 → M ED INP 05:30 → M ICU 07:39 → M MS5PR 07-12 13:15
PROVIDERS: ADMIT Hospitalist; ATTEND Internal Medicine
DX: T38.3X2A Poisoning by insulin and oral hypoglycemic [antidiabetic] drugs, intentional self-harm, initial encounter (principal); I50.32 Chronic diastolic (congestive) heart failure; E11.649 Type 2 diabetes mellitus with hypoglycemia without coma; I48.91 Unspecified atrial fibrillation; J44.9 Chronic obstructive pulmonary disease, unspecified; F10.10 Alcohol abuse, uncomplicated; I10 Essential (primary) hypertension; B18.2 Chronic viral hepatitis C; M72.0 Palmar fascial fibromatosis [Dupuytren]; F43.23 Adjustment disorder with mixed anxiety and depressed mood; Z79.82 Long term (current) use of aspirin; Z79.4 Long term (current) use of insulin; Z88.8 Allergy status to other drugs, medicaments and biological substances; Z91.048 Other nonmedicinal substance allergy status; Z86.73 Personal history of transient ischemic attack (TIA), and cerebral infarction without residual deficits; Z91.5 Personal history of self-harm; Z82.49 Family history of ischemic heart disease and other diseases of the circulatory system; Z80.9 Family history of malignant neoplasm, unspecified

== ENCOUNTER 2016-07-13 18:34 | Inpatient (IN) | payer MEDICAID, SELFPAY ==
[~2016-07-13] VITALS: Ht 180.3 cm; Wt 94.8 kg
[~2016-07-13 18:34] MED LIST changes: +ASPI81TAEC PO; +CITA20TA4 PO; +MECL-68 PO; +MIRA3350 PO
[2016-07-13 18:39] VITALS: BP 140/83
[2016-07-13] MEDS ORDERED: LEVEMIR (INSULIN DETEMIR) 1 UNITS/0.01ML SC SCH (21:00)
[2016-07-13] MEDS ORDERED: oxyCODONE 5MG TAB PO SCH (21:00)
[2016-07-13] MEDS ORDERED: ACETAMINOPHEN TAB 650MG DOSE (2X325MG) PO PRN (22:00)
[2016-07-13] MEDS ORDERED: GLUCAGON FOR INJ 1 MG VIAL (J1610) SC PRN (22:00)
[2016-07-13] MEDS ORDERED: GLUCOSE 4 GM CHEW TABLET PO PRN (22:00)
[2016-07-13] MEDS ORDERED: traZODone 50 MG TAB PO PRN (22:00)
[2016-07-13] MEDS ORDERED: DEXTROSE 50% 50 ML SYRINGE IV PRN (22:00)
[2016-07-13] MEDS ORDERED: MAALOX 30 ML SUSP *UDC PO PRN (22:00)
--- NOTE | 2016-07-13 23:56 | CR.PDOC ---
[facility] Consultation Consultation DATE OF CONSULTATION: 07/13/16 CONSULTATION REQUESTED BY: REASON FOR CONSULTATION: . RELEVANT HISTORY: . PAST PSYCHIATRIC HISTORY: PAST MEDICAL HISTORY: FAMILY HISTORY: Mother: Father: Siblings: Children: PERSONAL AND SOCIAL HISTORY: The patient was born and raised in [place]. 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 MENTAL STATUS EXAMINATION: Patient is a -year old male, who is [pleasant, cooperative, well kempt], [tall, overweight, thin, elderly, obese, frail build]. Speech: Is [pressured, tangential, circumstantial, flight of ideas, rate, volume, articulate, coherent, and spontaneous]. Thought processes: [Clear, Not goal-directed or Goal directed.] Rate of thoughts: . Thought content: [Irrational, Logical, Illogical, Tangential, Paranoid]. Abstract reasoning: . Computation: . Associations: [Loose, Tangential, Circumstantial, Intact]. Abnormal or psychotic thoughts: [Hallucinations, Delusions, Preoccupation with violence, Homicidal or suicidal ideation, and Obsessions.] Judgment: [Fair, Good, Very limited, Poor.] Insight: [Very limited, Good, Fair, Poor] Oriented to: [Time, place and person.] Recent and Remote Memory: [Immediate, short-term and long-term memory is intact] . Attention Span and Concentration: [Poor, Good, Fair]. Language: [Normal]. Fund of knowledge: [Adequate, Intact, Poor, Fair, Good]. Mood: [Irrational, Elated, Irritable, Depressed, Anxious, Restricted, Neutral]. Affect: [Appropriate, Reactive, Flat, Constricted, Animated, Irrational, Expansive, Restricted, Depressed, Anxious, Agitated, Hypomania, Lability]. DIAGNOSIS: 1. . PLAN: 1. . 2. . Vital Signs Vital Sign - Last 24 Hours 07/13/16 18:39 Temp 97.6 Pulse 91 Resp 18 B/P 140/83 Pulse Ox 95 O2 Delivery Room Air Laboratory Data 24H Labs Laboratory Tests 2 07/13/16 22:51: Bedside Glucose (Misc Panel) 305H Home Medications Current Medications Current Medications Medications (Trade) Dose Ordered Sig/Kuldeep Route PRN Reason Start Time Stop Time Status Last Admin Dose Admin Acetaminophen (Tylenol Tab) 650 mg Q6HP PRN PO HEADACHE or DISCOMFORT 07/13/16 22:00 08/12/16 21:59 Al Hydrox/Mg Hydrox/Simethicone (Mylanta) 30 ml Q4HP PRN PO HEARTBURN/INDIGESTION 07/13/16 22:00 08/12/16 21:59 Aspirin (Ecotrin) 81 mg DAILY PO 07/14/16 09:00 08/13/16 08:59 Atorvastatin Calcium (Lipitor) 10 mg QHS PO 07/13/16 21:00 08/12/16 20:59 Citalopram Hydrobromide (CeleXA) 20 mg DAILY PO 07/14/16 09:00 08/13/16 08:59 Dextrose (Dextrose 50%) 25 ml ASDIRECTED PRN IV SEE LABEL COMMENTS 07/13/16 22:00 08/12/16 21:59 Glucagon (Glucagon) 1 mg ASDIRECTED PRN SC SEE LABEL COMMENTS 07/13/16 22:00 08/12/16 21:59 Glucose (Glucose) 16 GM ASDIRECTED PRN PO SEE LABEL COMMENTS 07/13/16 22:00 08/12/16 21:59 Insulin Detemir (Levemir Insulin) 10 units QHS SC 07/13/16 21:00 08/12/16 20:59 Insulin Detemir (Levemir Insulin) 20 units QAM WV 07/14/16 09:00 08/13/16 08:59 Insulin Detemir (Levemir Insulin) 50 units BID SC 07/13/16 21:00 07/13/16 23:16 DC Insulin Detemir (Levemir Insulin) 50 units BID SC 07/14/16 09:00 07/14/16 09:00 DC Insulin Human Lispro (HumaLOG INSULIN) See Protocol Table AC SC 07/14/16 07:30 08/13/16 07:29 Insulin Human Lispro (HumaLOG INSULIN) See Protocol Table QHS SC 07/13/16 21:00 08/12/16 20:59 Insulin Human Lispro (HumaLOG INSULIN) See Protocol Table Q SC 07/14/16 21:00 07/14/16 21:00 DC Lisinopril (Prinivil) 10 mg DAILY PO 07/14/16 09:00 08/13/16 08:59 Magnesium Hydroxide (Milk Of Magnesia) 30 ml DAILYPRN PRN PO CONSTIPATION 07/13/16 22:00 08/12/16 21:59 Omeprazole (PriLOSEC) 20 mg DAILY PO 07/14/16 09:00 08/13/16 08:59 Oxycodone HCl (OxyCONTIN) 15 mg BID PO 07/13/16 21:00 07/20/16 20:59 Oxycodone HCl (Roxicodone, Oxyir) 15 mg BID PO 07/13/16 21:00 07/13/16 23:16 DC Pregabalin (Lyrica) 25 mg BID PO 07/14/16 09:00 07/21/16 08:59 UNV Pregabalin (Lyrica) 225 mg BID PO 07/13/16 21:00 07/20/16 20:59 Tamsulosin HCl (Flomax) 0.4 mg DAILY PO 07/14/16 09:00 08/13/16 08:59 Tamsulosin HCl (Flomax) 0.4 mg QHS PO 07/14/16 21:00 07/14/16 21:00 DC Trazodone HCl (Desyrel) 25 mg QHSP PRN PO INSOMNIA 07/13/16 22:30 08/12/16 22:29 Trazodone HCl (Desyrel) 50 mg QHSP PRN PO INSOMNIA 07/13/16 22:00 07/13/16 22:20 DC Vitamin D (Vitamin D) 1,000 units DAILY PO 07/14/16 09:00 08/13/16 08:59 Scheduled Aspirin (Aspirin EC) 81 Mg Tabec 81 MG PO DAILY (Reported) Atorvastatin Calcium (Atorvastatin Calcium) 10 Mg Tab 10 MG PO QHS (Reported) Cholecalciferol (Vitamin D) 1,000 Unit Tab 1,000 UNIT PO DAILY (Reported) Citalopram Hydrobromide (Citalopram Hydrobromide) 20 Mg Tab 20 MG PO DAILY ( Reported) Insulin Detemir (Levemir) 1 Units/0.01 Ml Susp 20 UNITS SC QAM Insulin Detemir (Levemir) 1 Units/0.01 Ml Susp 10 UNITS SC QHS Insulin Human Lispro (Humalog) 1 Units/0.01 Ml Inj 1 DOSE SC ACHS (Reported) Lisinopril (Lisinopril) 10 Mg Tab 10 MG PO DAILY (Reported) Omeprazole (Omeprazole) 20 Mg Cap 20 MG PO DAILY (Reported) Pregabalin (Lyrica) 225 Mg Cap 225 MG PO BID (Reported) Sucralfate (Carafate) 1 Gm Tab 1 GM PO ACHS (Reported) Tamsulosin Hydrochloride (Flomax) 0.4 Mg Cap 0.4 MG PO DAILY (Reported) Trazodone HCl (Trazodone HCl) 50 Mg Tab 50 MG PO QHS (Reported) Scheduled PRN Meclizine HCl (Meclizine HCl) 25 Mg Tab 25 MG PO DAILY PRN PRN DIZZINESS ( Reported) Ondansetron HCl (Zofran) 4 Mg Tab 4 MG PO Q6H PRN PRN NAUSEA (Reported) Polyethylene Glycol (Miralax) 1 Pow Pow 17 GM PO BID PRN PRN CONSTIPATION ( Reported) Allergies Coded Allergies: Diazepam (Verified Allergy, Unknown, 11/01/13) TAPE (Verified Allergy, Unknown, 12/02/13) Midazolam (Verified Adverse Reaction, Intermediate, "GO CRAZY", 02/15/13) RAJANI AYOUB MD Jul 13, 2016 23:56
[2016-07-14] MEDS: ATORVASTATIN 10 MG TAB PO SCH ×2 (00:02→20:16)
[2016-07-14] MEDS: oxyCODONE 15 MG CR TAB PO SCH ×3 (00:02→20:17)
[2016-07-14] MEDS: PREGABALIN 75 MG CAP(LYRICA) PO SCH ×3 (00:02→20:17)
[2016-07-14] MEDS: HumaLOG INSULIN (NovoLOG) PER UNIT SC SCH ×5 (00:08→20:22)
[2016-07-14] MEDS: LEVEMIR (INSULIN DETEMIR) 1 UNITS/0.01ML SC SCH ×3 (00:09→20:22)
[2016-07-14 07:00] VITALS: BP 142/88
[2016-07-14] MEDS: OMEPRAZOLE 20 MG CAP PO SCH (08:38)
[2016-07-14] MEDS: CitaloPRAM (CeleXA) 20 MG TAB PO SCH (08:38)
[2016-07-14] MEDS: LISINOPRIL 10 MG TAB PO SCH (08:38)
[2016-07-14] MEDS: VITAMIN D 1,000 INTERNATIONAL UNITS TABLET PO SCH (08:38)
[2016-07-14] MEDS: ASPIRIN 81 MG ENTERIC TAB PO SCH (08:38)
[2016-07-14] MEDS: TAMSULOSIN 0.4 MG CAP PO SCH (08:38)
[2016-07-14] MEDS ORDERED: PREGABALIN 25 MG CAP (LYRICA) PO SCH (09:00)
[2016-07-14] MEDS ORDERED: LEVEMIR (INSULIN DETEMIR) 1 UNITS/0.01ML SC SCH (09:00)
--- NOTE | 2016-07-14 10:37 | HPEPDOC ---
Medical History and Physical Date of Admission Jul 13, 2016 at 18:34 History and Physical [facility]CP: [facility] Infectious disease: Dr. Mcclendon ATTENDING: Dr. Eric Harrington HPI: Pt is a 55 yo M admitted to [facility] for unspecified depressive disorder. Patient was admitted to [facility] from 07/11/16-07/13/16 related to insulin overdose. The patient was medically stabilized. Patient was felt stable to transfer to [facility] 07/13/16. The patient states he has been frustrated recently regarding instructions to wean off his chronic pain medications. Currently he is weaned down to OxyContin 15 mg by mouth twice a day. He also continues to take Lyrica 225 mg by mouth twice a day. He states this is not controlling his pain. He was seen by Dr. Leiva at which time an MRI of the lumbosacral spine was ordered and recently completed. Results are pending. This was completed at the open [facility] in [place]. Further recommendations are pending from Dr. Leiva. He has a follow-up appointment arranged. He has never previously obtained a neurosurgical opinion. Denies any fevers, chills, weakness, fatigue, HERCULES, CP, SOB, cough, palpitations , abdominal pain, N/V/D or changes in bowel or bladder habits. PMHx: History of MRSA Insulin-dependent diabetes Depression H/O SI Hepatitis C treated with Harvoni-finished 12/27. History of CVA in October 2014 Hypertension COPD History of GI bleed History of Dupuytren's contractures of bilateral feet and left hand Diabetic neuropathy Degenerative disc disease Farsighted Hearing loss BPH Diverticulosis PSHX: Upper and lower teeth extraction Tonsillectomy Liver biopsy 2007 Dupuytren's contracture status post left hand repair SOCHX: Resides in: [place] Marital Status: Employment: Disabled Tobacco use: Quit 10 years ago, 1 pack per day 20 years ETOH: Denies regular use. States he had a "few beers" on "New Years" Illicit Drugs: Denies IV Drug Use: Denies Tattoos done unprofessionally: Denies FAMHX: Mother: secondary to MO age 63 Father: secondary to CVA age 88 Siblings: One brother secondary to complications from diabetes age 64 Children: Alive, well Unexpected deaths due to medical reasons: As above, otherwise unremarkable ROS: As noted in HPI, otherwise 11pt ROS of systems reviewed and remarkable only for history of CVA with residual spatial problems for which he utilizes a cane. PE: GEN: 55yoM, appears stated age. Well-nourished, well developed. No acute distress. Alert and oriented x 3. Pleasant, interactive. HEENT: Normocephalic, atraumatic. Pupils are equal, round, and reactive to light. Extraocular movements are intact. No nystagmus appreciated. Sclera are nonicteric. Conjunctiva without injection. Nose midline. No facial asymmetry. Moist mucous membranes. Edentulous. Pharynx pink and moist, no cobblestoning. Neck supple, trachea midline. No lymphadenopathy or thyromegaly appreciated. CHEST: Regular rate and rhythm, +S1, +S2 LUNGS: Clear to auscultation bilaterally. No wheezes, rales, or rhonchi. Breathing appears symmetric and easy. Patient is speaking in full sentences. No accessory muscle use. ABD: Round, soft, non-tender, non-distended. +Bowel sounds throughout. No rebound or guarding. No costovertebral angle tenderness. EXT: There is ecchymosis noted right hand , left antecubital related to IV sites , no erythema/edema present. Pulses 2+ bilaterally dorsalis pedis and radial. No lower extremity edema appreciated. SKIN: [place], dry, warm. Capillary refill <2sec. No rashes. NEURO: Alert and oriented x 3. Cranial nerves III-XII are intact. No focal deficits appreciated. Ambulating with cane. EK07/11/16 sinus rhythm,, borderline LAD, 86 bpm A&P: 55yoM admitted to [facility] for unspecified depressive disorder. 1. Psych. Plan per Psychiatry. EKG on file. 2. Abnormal TSH- Recheck TFTs. 3. Abnormal EKG. No cardiac signs or symptoms appreciated on exam, follow with PCP. 4. Follow up with [facility]. 5. Unsteady gait- PT ambulates with a cane. 6. Insulin-dependent diabetes. CC diet. Levemir/SSI/ Hypoglycemia protocol 7. Hepatitis C with completion of Harvoni as per Dr. Mcclendon. 8. Hypertension. Continue with lisinopril. Blood pressures are stable. 9. COPD. Albuterol HFA 2 puffs every 4 hours as needed. 10. History of GI bleed. Continues with aspirin given history of CVA. Continue with Prilosec. 11. Diabetic neuropathy. Continue Lyrica. 12. Degenerative disc disease/Chronic pain. Cont current Lyrica 225 mg BID/ Oxycodone 15 mg BID. ISTOP Ref # [id number] #14 Oxycodone 15mg, #14 Lyrica 150mg dispensed 07/11/16 as per [facility]. (Of note Pt was advised to reduce his Lyrica dosage). We'll request copies of his MRI report from [place] and copy of Dr. Leiva's note. 13. History of CVA. aspirin 81 mg. Lipitor 10 mg daily. 14. BPH. Continue Flomax. 15. Thrombocytopenia-recheck CBC in AM. Vital Signs Vital Signs Label Value Date Time Patient Temperature 96.7 degrees F 07/14/16 0700 Temperature Source Tympanic 07/14/16 0700 Pulse 109 07/14/16 0700 Respiratory Rate 22 bpm 07/14/16 0700 Blood Pressure Assessment 142/88 (106) 07/14/16 0700 Blood Pressure Assessment 132/83 07/14/16 0838 Laboratory Data Labs 24H Laboratory Tests 2 07/13/16 22:51: Bedside Glucose (Misc Panel) 305H 07/14/16 05:43: Bedside Glucose (Misc Panel) 286H FSBS Laboratory Tests Test 07/13/16 22:51 07/14/16 05:43 Range/Units Bedside Glucose (Misc Panel) 305 286 70-105 MG/DL Home Medications Scheduled Aspirin (Aspirin EC) 81 Mg Tabec 81 MG PO DAILY Atorvastatin Calcium (Atorvastatin Calcium) 10 Mg Tab 10 MG PO QHS Cholecalciferol (Vitamin D) 1,000 Unit Tab 1,000 UNIT PO DAILY Citalopram Hydrobromide (Citalopram Hydrobromide) 20 Mg Tab 20 MG PO DAILY Insulin Detemir (Levemir) 1 Units/0.01 Ml Susp 20 UNITS SC QAM Insulin Detemir (Levemir) 1 Units/0.01 Ml Susp 10 UNITS SC QHS Insulin Human Lispro (Humalog) 1 Units/0.01 Ml Inj 1 DOSE SC ACHS Lisinopril (Lisinopril) 10 Mg Tab 10 MG PO DAILY Omeprazole (Omeprazole) 20 Mg Cap 20 MG PO DAILY Pregabalin (Lyrica) 225 Mg Cap 225 MG PO BID Sucralfate (Carafate) 1 Gm Tab 1 GM PO ACHS Tamsulosin Hydrochloride (Flomax) 0.4 Mg Cap 0.4 MG PO DAILY Trazodone HCl (Trazodone HCl) 50 Mg Tab 50 MG PO QHS Scheduled PRN Meclizine HCl (Meclizine HCl) 25 Mg Tab 25 MG PO DAILY PRN PRN DIZZINESS Ondansetron HCl (Zofran) 4 Mg Tab 4 MG PO Q6H PRN PRN NAUSEA Polyethylene Glycol (Miralax) 1 Pow 17 GM PO BID PRN PRN CONSTIPATION Allergies Coded Allergies: Diazepam (Verified Allergy, Unknown, 11/01/13) TAPE (Verified Allergy, Unknown, 12/02/13) Midazolam (Verified Adverse Reaction, Intermediate, "GO CRAZY", 02/15/13) Radha Burdick Jul 14, 2016 10:37
--- NOTE | 2016-07-14 16:18 | HPEPDOC ---
[facility] History & Physical History and Physical DATE OF ADMISSION: Jul 13, 2016 at 18:34 Date of this interview: 07/14/2016 HPI: [This is a 55-year-old male with past psychiatric history significant for major depressive disorder recurrent severe. Patient is well known to the department. Patient has had over 5 admissions for suicide attempts at [facility]. Patient was last at [facility] two-weeks ago before similar presentation, status post suicide attempt. Patient reports his primary stressor causing him to hurt himself is his recently being told by his primary care provider that he will be tapered off of his opiate pain management. Patient reports being angered by the doctor telling him that his reasoning was that he did not want him to overdose on his pain pills. Overdose is the primary means of patient's prior suicide attempts. Patient reports feeling like he would show the doctor that he could overdose on anything. Patient went home from the appointment and per patient injected himself with greater than 5 units more insulin than he is scheduled. Patient's subsequently had an altered mental status and presented to the emergency department altered and with derangement of labs. On interview today, patient endorses ongoing depression. He reports distress depression is driven by worsening pain. He reports to tapered dose of oxycodone is noticeable. He reports fair appetite and sleep. Patient is medically compliant and denies medication side effects. Patient reports no current suicidal ideations or homicidal ideations. He denies auditory hallucinations and visual hallucinations. She has been appropriate in his statements and in behavior. No issues on the unit. Signs of psychosis have been reported or observed.] PAST PSYCHIATRIC HISTORY: [Inpatient - patient has greater than 5 hospitalizations for worsening depression and/ or suicide attempts.] This patient has additional admissions for alcohol related issues. Patient feels that each admission has helped improve his state of mind at time of admission. Patient denies any type of visual sexual abuse or domestic violence issues. Patient states he has never used drugs. Patient minimizes alcohol use, stating he only drinks 4-5 beers once a month for special occasions only. Allergies Coded Allergies: Diazepam (Verified Allergy, Unknown, 11/01/13) TAPE (Verified Allergy, Unknown, 12/02/13) Midazolam (Verified Adverse Reaction, Intermediate, "GO CRAZY", 02/15/13) Past Medical History Medical History COPD Diabetes mellitus type 2 hepatitis C DJD Dupuytren's contractures of hands and feet CVA 2 in 2008 (no residual effects) Adjustment disorder with mixed anxiety/depression Depression with prior suicidal attempts Alcohol abuse Grade 1 diastolic CHF Surgical History Most recent echocardiogram October 2014 EF 60%, grade 1 diastolic dysfunction, borderline LVH EGD and colonoscopy 2015; hemorrhoids otherwise unremarkable Liver biopsy 2007 Tonsillectomy Multiple hand injections Dupuytren's contracture release of left hand when he 12 Family History Patient did not discuss admissions for alcohol intoxication with this radio script writer. Patient denies any history of any psychiatric or mental health illness within his family. Patient states "I'm the only one ". Family History Father had heart failure, CVA, [place] at 78 years old. Mother had heart failure, [place], hypertension, throat cancer, at 63 years old. He has one brother is alive at 59 years old who has had a quadruple bypass. He has 3 sons and 1 daughter who are all healthy Social History * Smoker: non-smoker Alcohol: heavy Drugs: denies Social History Lives at home with his . The patient was born and raised in [place]. Resides in: [place] Marital Status: M Children: [3 sons and 1 daughter] Employment: Currently unemployed MENTAL STATUS EXAMINATION: Patient is a 55-year-old male, calm, cooperative, engages in interview, looking stated age, in no acute distress] Speech: Is [pressured, tangential, circumstantial, flight of ideas, rate, volume, articulate, coherent, and spontaneous]. Thought processes: [Linear and Goal directed.] Rate of thoughts: [Within normal limits]. Thought content: [Irrational, attempting to harm himself to prove to his PCP that you can overdose on any medication]. Abstract reasoning: [Poor]. Associations: [Tangential] Abnormal or psychotic thoughts: [No perceptual issues reported or noted] Judgment: [Fair] Insight: [Poor] Oriented to: [Time, place and person.] Recent and Remote Memory: [Immediate, short-term and long-term memory is intact] . Attention Span and Concentration: [Fair]. Fund of knowledge: [.Good]. Mood: [Irrational] Affect: [Constricted]. PROBLEM LIST: 1. Multiple suicide attempts. 2. Decreased coping mechanisms. 3. Chronic pain issues. 4. Denial of alcohol effects. DIAGNOSES: 1. Major depressive disorder, recurrent, severe 2. Rule out personality disorder (cluster B) 3. Alcohol use disorder. 4. Chronic pain disorder. Plan: ---- 1.~ ~ Patient was admitted on a 03.14 legal status, 2.~ ~ Complete history was obtained. 3.~ ~ With patients permission, family will be contacted and database will be expanded. 4.~ ~ Patients medication regimen will be reviewed and continued accordingly, per his recent medication list from this recent medical floor admission. Continue current psychotropic medication regimen. 5.~ ~ Patient will be provided with protected environment. 6.~ ~ Patient will be treated with individual, group, and milieu therapies. 7.~ ~ Patient will receive supportive psych-education. 8.~ ~ Discharge planning will commence immediately. 9.~ ~ Length of patients stay will be between 7-10 days 10.~ Outpatient follow-up treatment will be strongly recommended. Time spent on this admission [60] min. Laboratory Data 24H Labs Laboratory Tests 2 07/13/16 22:51: Bedside Glucose (Misc Panel) 305H 07/14/16 05:43: Bedside Glucose (Misc Panel) 286H 07/14/16 11:49: Bedside Glucose (Misc Panel) 303H FSBS Laboratory Tests Test 07/13/16 22:51 07/14/16 05:43 07/14/16 11:49 Range/Units Bedside Glucose (Misc Panel) 305 286 303 70-105 MG/DL Medications Scheduled Aspirin (Aspirin EC) 81 Mg Tabec 81 MG PO DAILY (Reported) Atorvastatin Calcium (Atorvastatin Calcium) 10 Mg Tab 10 MG PO QHS (Reported) Cholecalciferol (Vitamin D) 1,000 Unit Tab 1,000 UNIT PO DAILY (Reported) Citalopram Hydrobromide (Citalopram Hydrobromide) 20 Mg Tab 20 MG PO DAILY ( Reported) Insulin Detemir (Levemir) 1 Units/0.01 Ml Susp 20 UNITS SC QAM Insulin Detemir (Levemir) 1 Units/0.01 Ml Susp 10 UNITS SC QHS Insulin Human Lispro (Humalog) 1 Units/0.01 Ml Inj 1 DOSE SC ACHS (Reported) Lisinopril (Lisinopril) 10 Mg Tab 10 MG PO DAILY (Reported) Omeprazole (Omeprazole) 20 Mg Cap 20 MG PO DAILY (Reported) Pregabalin (Lyrica) 225 Mg Cap 225 MG PO BID (Reported) Sucralfate (Carafate) 1 Gm Tab 1 GM PO ACHS (Reported) Tamsulosin Hydrochloride (Flomax) 0.4 Mg Cap 0.4 MG PO DAILY (Reported) Trazodone HCl (Trazodone HCl) 50 Mg Tab 50 MG PO QHS (Reported) Scheduled PRN Meclizine HCl (Meclizine HCl) 25 Mg Tab 25 MG PO DAILY PRN PRN DIZZINESS ( Reported) Ondansetron HCl (Zofran) 4 Mg Tab 4 MG PO Q6H PRN PRN NAUSEA (Reported) Polyethylene Glycol (Miralax) 1 Pow Pow 17 GM PO BID PRN PRN CONSTIPATION ( Reported) Allergies Coded Allergies: Diazepam (Verified Allergy, Unknown, 11/01/13) TAPE (Verified Allergy, Unknown, 12/02/13) Midazolam (Verified Adverse Reaction, Intermediate, "GO CRAZY", 02/15/13) RAJANI AYOUB MD Jul 14, 2016 16:17
[2016-07-14 18:00] VITALS: BP 142/80
[2016-07-14] MEDS: traZODone 25MG PER 1/2 TABLET PO PRN (20:17)
[2016-07-14] MEDS ORDERED: HumaLOG INSULIN (NovoLOG) PER UNIT SC SCH (21:00)
[2016-07-14] MEDS ORDERED: TAMSULOSIN 0.4 MG CAP PO SCH (21:00)
[2016-07-15] MEDS: HumaLOG INSULIN (NovoLOG) PER UNIT SC SCH ×4 (06:45→20:41)
[2016-07-15 06:47] VITALS: BP 141/90
[2016-07-15 07:08] LABS: MEAN CORPUSCULAR HEMOGLOBIN 30.6 pg (27.0-33.0); MEAN CORPUSCULAR HGB CONC 33.3 g/dl (32.0-36.5); MEAN CORPUSCULAR VOLUME 91.9 fl (80.0-96.0); WHITE BLOOD COUNT 9.3 K/mm3 (4.0-10.0)
[2016-07-15 07:43] LABS: THYROXINE (T4) 8.6 UG/DL (4.5-12.0)
[2016-07-15] MEDS: OMEPRAZOLE 20 MG CAP PO SCH (08:35)
[2016-07-15] MEDS: VITAMIN D 1,000 INTERNATIONAL UNITS TABLET PO SCH (08:35)
[2016-07-15] MEDS: TAMSULOSIN 0.4 MG CAP PO SCH (08:35)
[2016-07-15] MEDS: ASPIRIN 81 MG ENTERIC TAB PO SCH (08:35)
[2016-07-15] MEDS: LEVEMIR (INSULIN DETEMIR) 1 UNITS/0.01ML SC SCH ×2 (08:35→20:41)
[2016-07-15] MEDS: LISINOPRIL 10 MG TAB PO SCH (08:35)
[2016-07-15] MEDS: CitaloPRAM (CeleXA) 20 MG TAB PO SCH (08:35)
[2016-07-15] MEDS: PREGABALIN 75 MG CAP(LYRICA) PO SCH ×2 (08:35→20:42)
[2016-07-15] MEDS: oxyCODONE 15 MG CR TAB PO SCH ×2 (08:36→20:42)
[2016-07-15 18:00] VITALS: BP 127/74
--- NOTE | 2016-07-15 19:01 | IPNPDOC ---
[facility] Progress Note Progress Note DATE OF SERVICE: 07/15/16 HISTORY: This is a 55-year-old male with past psychiatric history significant for recurrent severe major depressive disorder with history of multiple hospital admissions for suicide attempts, primarily via overdose. Patient was last discharged from [facility] on 06/23/16. Patient appears to be adjusting to unit, spends some time isolating in his room, engaging minimally with staff and peers, is visible on unit at other times. Patient rates his anxiety level as 4/10, depression 5/10, denies suicidal and homicidal ideation, denies urge to engage in self-injurious behavior, and denies audiovisual hallucinations. Patient informs documentation writer that he attempted suicide by injecting more insulin than needed in effort to prove to his doctor that he should be given more pain medication adding, "I did it to send a message that I can overdose on anything if I want to." Patient indicates his current regimen of Celexa 20 mg per day and trazodone are effective in improving sleep and reducing symptoms of anxiety and depression. Patient informs documentation writer he intends to discharge to home with once stabilized and completed treatment. Patient endorses ongoing depression, adds depression is solely the result of chronic pain, states recent tapered dose of oxycodone is noticeable, has been evaluated by PA. He reports fair appetite and sleep. Patient is medically compliant and denies medication side effects. Patient and documentation writer discussed potential discharge plans; documentation writer encouraged patient to consider participating in long- term treatment. VITAL SIGNS: See below. NEW TEST RESULTS: Glucose 296, Plt low at 128. PA is monitoring. Relevant medical history: COPD, Diabetes mellitus type 2, hepatitis C, DJD, Dupuytren's contractures of hands and feet, CVA 2 in 2008 (no residual effects) , Adjustment disorder with mixed anxiety/depression, Depression with prior suicidal attempts, Alcohol abuse, Grade 1 diastolic CHF CURRENT MEDICATIONS: See below. MENTAL STATUS EXAMINATION: Patient is a 55-year-old male, calm, cooperative, engages in interview, looking stated age, in no acute distress Speech: Is normal rate, rhythm, volume, coherent . Thought processes: Linear and Goal directed. Rate of thoughts: Within normal limits. Thought content: Irrational, attempting to harm himself to prove to his PCP that one can overdose on any medication. Abstract reasoning: Requires further evaluation Associations: Tangential at times, intact otherwise Abnormal or psychotic thoughts: No perceptual issues reported or noted Judgment: Poor Insight: Poor Oriented to: Time, place and person. Recent and Remote Memory: Immediate, short-term and long-term memory is intact. Attention Span and Concentration: Fair. Fund of knowledge: Adequate Mood: "Better." Appears anxious and depressed, becomes irritable when talking about pain medication Affect: Constricted. DIAGNOSES: Major depressive disorder, recurrent, severe, Rule out personality disorder (cluster B), Alcohol use disorder, Chronic pain disorder. ASSESSMENT: Patient appears to be adjusting to unit, remains isolative at times , is engageable and currently denies suicidal and homicidal ideation, however, makes it clear to documentation writer that should he not be able to control pain he is at risk of self-harm. Patient informed documentation writer that he overdosed intentionally on insulin due to pain management provider reducing his prescription for pain medication. Patient indicates his current medication regimen consisting of Celexa 20 mg po daily and trazodone 25 mg po hs PRN for insomnia are effective and he denies medication side effects. Patient is superficially compliant, becomes irritable when documentation writer mentions long-term care as discharge option, minimizes events which led to his current hospitalization, minimizes alcohol use , and rationalizes his need for intentional overdose on insulin due to his pain management situation. Patient further rationalizes his alcohol consumption stating to documentation writer, "I only drink a lot when I'm out of pain medication." Patient informs documentation writer he intends to discharge to home with , denies need for long-term care or inpatient substance abuse rehabilitation treatment. Patient indicates to documentation writer that he will be contacting his state's attorney to inform his state's attorney that long-term care is being recommended at this time. MANAGEMENT PLAN: Patient to continue taking Celexa 20 mg po q day, Trazodone 25 mg po hs PRN insomnia Maintain safety precautions Patient to attend groups and participate in unit programming to develop coping strategies Engage patient in discharge planning process and arrange meeting with support system to ensure safe discharge planning when appropriate, encourage long-term care/inpatient substance abuse treatment Coordinate discharge with environmental adviser, Jessica Rodriguez, of [facility], and with previous psychotherapy and medication management provider [facility] Patient to follow up with PCM upon discharge TIME SPENT: 35 minutes. Vital Signs Vital Signs Date Time Temp Pulse Resp B/P Pulse Ox O2 Delivery O2 Flow Rate FiO2 07/15/16 08:36 18 07/15/16 08:35 131/82 07/15/16 06:47 97.0 98 07/14/16 18:00 Room Air 07/13/16 18:39 95 Laboratory Data 24H Labs Laboratory Tests 2 07/14/16 20:03: Bedside Glucose (Misc Panel) 326H 07/15/16 06:19: Bedside Glucose (Misc Panel) 211H 07/15/16 06:41: Free Thyroxine Index 3.1, Thyroid Stimulating Hormone (TSH) 0.890, Thyroxine (T4 ) 8.6, Triiodothyronine (T3) Uptake 36 07/15/16 11:49: Bedside Glucose (Misc Panel) 174H 07/15/16 16:51: Bedside Glucose (Misc Panel) 296H CBC/BMP Laboratory Tests 07/15/16 06:41 Red Blood Count 4.80, Mean Corpuscular Volume 91.9, Mean Corpuscular Hemoglobin 30.6, Mean Corpuscular Hemoglobin Concent 33.3, Red Cell Distribution Width 13.0 Current Medications Current Medications Medications (Trade) Dose Ordered Sig/Kuldeep Route PRN Reason Start Time Stop Time Status Last Admin Dose Admin Acetaminophen (Tylenol Tab) 650 mg Q6HP PRN PO HEADACHE or DISCOMFORT 07/13/16 22:00 08/12/16 21:59 Al Hydrox/Mg Hydrox/Simethicone (Mylanta) 30 ml Q4HP PRN PO HEARTBURN/INDIGESTION 07/13/16 22:00 08/12/16 21:59 Aspirin (Ecotrin) 81 mg DAILY PO 07/14/16 09:00 08/13/16 08:59 07/15/16 08:35 Atorvastatin Calcium (Lipitor) 10 mg QHS PO 07/13/16 21:00 08/12/16 20:59 07/14/16 20:16 Citalopram Hydrobromide (CeleXA) 20 mg DAILY PO 07/14/16 09:00 08/13/16 08:59 07/15/16 08:35 Dextrose (Dextrose 50%) 25 ml ASDIRECTED PRN IV SEE LABEL COMMENTS 07/13/16 22:00 08/12/16 21:59 Glucagon (Glucagon) 1 mg ASDIRECTED PRN SC SEE LABEL COMMENTS 07/13/16 22:00 08/12/16 21:59 Glucose (Glucose) 16 GM ASDIRECTED PRN PO SEE LABEL COMMENTS 07/13/16 22:00 08/12/16 21:59 Insulin Detemir ([facility] Ins[facility]) [facility] 07/13/16 21:00 08/12/16 20:59 07/14/16 20:22 Insulin Detemir (Levemir Insulin) 20 units QAM SC 07/14/16 09:00 08/13/16 08:59 07/15/16 08:35 Insulin Detemir (Levemir Insulin) 50 units BID SC 07/13/16 21:00 07/13/16 23:16 DC Insulin Detemir (Levemir Insulin) 50 units BID SC 07/14/16 09:00 07/14/16 09:00 DC Insulin Human Lispro (HumaLOG INSULIN) See Protocol Table AC UT 07/14/16 07:30 08/13/16 07:29 07/15/16 16:54 Insulin Human Lispro (HumaLOG INSULIN) See Protocol [facility] 07/13/16 21:00 08/12/16 20:59 07/14/16 20:22 Insulin Human Lispro (HumaLOG INSULIN) See Protocol [facility] 07/14/16 21:00 07/14/16 21:00 DC Lisinopril (Prinivil) 10 mg DAILY PO 07/14/16 09:00 08/13/16 08:59 07/15/16 08:35 Magnesium Hydroxide (Milk Of Magnesia) 30 ml DAILYPRN PRN PO CONSTIPATION 07/13/16 22:00 08/12/16 21:59 Omeprazole (PriLOSEC) 20 mg DAILY PO 07/14/16 09:00 08/13/16 08:59 07/15/16 08:35 Oxycodone HCl (OxyCONTIN) 15 mg BID PO 07/13/16 21:00 07/20/16 20:59 07/15/16 08:36 Oxycodone HCl (Roxicodone, Oxyir) 15 mg BID PO 07/13/16 21:00 07/13/16 23:16 DC Pregabalin (Lyrica) 25 mg BID PO 07/14/16 09:00 07/21/16 08:59 UNV Pregabalin (Lyrica) 225 mg BID PO 07/13/16 21:00 07/20/16 20:59 07/15/16 08:35 Tamsulosin HCl (Flomax) 0.4 mg DAILY PO 07/14/16 09:00 08/13/16 08:59 07/15/16 08:35 Tamsulosin HCl (Flomax) 0.4 mg QHS PO 07/14/16 21:00 07/14/16 21:00 DC Trazodone HCl (Desyrel) 25 mg QHSP PRN PO INSOMNIA 07/13/16 22:30 08/12/16 22:29 07/14/16 20:17 Trazodone HCl (Desyrel) 50 mg QHSP PRN PO INSOMNIA 07/13/16 22:00 07/13/16 22:20 DC Vitamin D (Vitamin D) 1,000 units DAILY PO 07/14/16 09:00 08/13/16 08:59 07/15/16 08:35 Allergies Coded Allergies: Diazepam (Verified Allergy, Unknown, 11/01/13) TAPE (Verified Allergy, Unknown, 12/02/13) Midazolam (Verified Adverse Reaction, Intermediate, "GO CRAZY", 02/15/13) Peggy Avina Jul 15, 2016 19:01 Peggy Avina Jul 15, 2016 19:01
[2016-07-15] MEDS: traZODone 25MG PER 1/2 TABLET PO PRN (20:41)
[2016-07-15] MEDS: ATORVASTATIN 10 MG TAB PO SCH (20:42)
[2016-07-16 06:41] VITALS: BP 133/84
[2016-07-16] MEDS: HumaLOG INSULIN (NovoLOG) PER UNIT SC SCH ×4 (07:08→20:50)
[2016-07-16] MEDS: LEVEMIR (INSULIN DETEMIR) 1 UNITS/0.01ML SC SCH ×2 (08:44→20:52)
[2016-07-16] MEDS: CitaloPRAM (CeleXA) 20 MG TAB PO SCH (08:45)
[2016-07-16] MEDS: OMEPRAZOLE 20 MG CAP PO SCH (08:45)
[2016-07-16] MEDS: PREGABALIN 75 MG CAP(LYRICA) PO SCH ×2 (08:45→20:50)
[2016-07-16] MEDS: TAMSULOSIN 0.4 MG CAP PO SCH (08:45)
[2016-07-16] MEDS: ASPIRIN 81 MG ENTERIC TAB PO SCH (08:45)
[2016-07-16] MEDS: oxyCODONE 15 MG CR TAB PO SCH ×2 (08:46→20:49)
[2016-07-16] MEDS: VITAMIN D 1,000 INTERNATIONAL UNITS TABLET PO SCH (08:46)
[2016-07-16] MEDS: LISINOPRIL 10 MG TAB PO SCH (08:46)
--- NOTE | 2016-07-16 10:42 | IPNPDOC ---
Assessment/Plan Date Seen The patient was seen on 07/16/16. Problems Problems: (1) Chronic low back pain Status: Chronic Problem Text: * Obtained copy of MRI completed at [facility] in [place] requested by Dr. Leiva. This indicated diminished disc hydration L1-L2, L2-L3 and L5-L1. Disc bulge L 12, L4-5. And broad-based disc bulge L5-S1. * Obtained copy of office note from Dr. Leiva dated 05/19/16. At that time MRI was set up. Patient was advised to continue medications as per primary care. Medication management was deferred to primary care. Recommendation was to exhaust nonnarcotic medication management for chronic nonmalignant pain. Plan was to follow-up in 4 weeks to review MRI results. * Reviewed with patient today. Request pain management opinion for further management of chronic pain. * Continue with present Lyrica 225 mg by mouth twice a day (of note patient was reduced 07/11/16-150 mg by mouth twice a day as per [facility]) and patient has confirmed these instructions as per PCP. * Currently patient remains on OxyContin 15 mg by mouth twice a day which was filled 07/11/16 for 7 day supply as per ISTOP reference number [id number] (2) Unsteady gait Status: Chronic Problem Text: * Continue with cane. Plan / VTE VTE Prophylaxis Ordered?: No (ambulatory) Subjective Review of Systems CC/HPI The patient is a 55-year-old male admitted with a reason for visit of Unspecified Depressive D/O. Events since last encounter Requested to reevaluate the patient in regards to his chronic pain. Patient states his pain medications are not controlling his pain. Walking on hard floors is worsening his pain. He has pain in his low back, his legs and his lower extremities and feet. He ambulates with the assistance of a cane. He is requesting to resume his prior doses of medications-specifically of his OxyContin. He is stating no other dose will control his pain. Objective Physical Examination General Exam: Positive: Alert Eye Exam: Positive: PERRLA Chest Exam: Positive: Clear to auscultation, Normal air movement Heart Exam: Positive: Normal S1, Normal S2, Rate Normal, Regular Rhythm, Negative: Murmurs, Rubs Skin Exam: Positive: Nl turgor and temperature Neuro Exam: Positive: Other (ambulating with cane) Vital Signs/I&O Vital Signs Date Time Temp Pulse Resp B/P Pulse Ox O2 Delivery O2 Flow Rate FiO2 07/16/16 08:46 16 07/16/16 08:46 133/84 07/16/16 06:41 96.1 93 07/14/16 18:00 Room Air 07/13/16 18:39 95 Laboratory Data Labs 24H Laboratory Tests 2 07/15/16 11:49: Bedside Glucose (Misc Panel) 174H 07/15/16 16:51: Bedside Glucose (Misc Panel) 296H 07/15/16 20:34: Bedside Glucose (Misc Panel) 352H 07/16/16 06:37: Bedside Glucose (Misc Panel) 251H FSBS Laboratory Tests Test 07/15/16 11:49 07/15/16 16:51 07/15/16 20:34 07/16/16 06:37 Range/Units Bedside Glucose (Misc Panel) 174 296 352 251 70-105 MG/DL Radha Burdick Jul 16, 2016 10:42
--- NOTE | 2016-07-16 12:46 | IPNPDOC ---
[facility] Progress Note Progress Note DATE OF SERVICE: 07/16/16 HISTORY: Block Hacker met with patient today to assess treatment progress on inpatient unit. Patient was observed to be up out of bed, ambulates safely with cane, actively engaged in lounge, visible on unit. Patient rated her current anxiety level as 8/10, depression 8/10, and attributed symptoms of anxiety and depression to feeling as though chief writer is telling him he is definitively going to be discharged to long-term care. Block Hacker attempted to discuss concerns and, again, strongly recommended patient consider long-term treatment. Patient denied suicidal and homicidal ideation, denied audiovisual hallucinations, denied urge to engage in self-injurious behavior. Patient has been attending groups, denies challenges with appetite and sleep, indicates energy level is stable, reports physical pain level of 9/10. Patient continues to take Celexa and trazodone, indicates medication regimen is effective and he denies medication side effects. Patient explains to chief writer again today that he feels if his pain was properly managed he would have no behavioral health challenges. Patient was informed that pain management consult has been ordered. Block Hacker explained that, given patient's history of multiple suicide attempts and most recent suicide attempt in direct response to not feeling his pain is adequately managed, should patient not be in agreement with the results of the pain management consult, discharge plans which would keep patient safe would be limited. VITAL SIGNS: See below. NEW TEST RESULTS: Glucose 251, 248 PA is monitoring. MRI lumbar spine 07/04/16 results indicate facet joint hypertrophy atL4-L5-S! Resulting in moderate bilateral foraminal stenosis. Relevant medical history: COPD, Diabetes mellitus type 2, hepatitis C, DJD, Dupuytren's contractures of hands and feet, CVA 2 in 2008 (no residual effects) , Adjustment disorder with mixed anxiety/depression, Depression with prior suicidal attempts, Alcohol abuse, Grade 1 diastolic CHF CURRENT MEDICATIONS: See below. MENTAL STATUS EXAMINATION: Patient is a 55-year-old male, calm and cooperative until talking about pain management and pain medication, possibility of discharge to long-term care, at which time patient becomes irritable and informs chief writer he no longer wants to speak with chief writer. Patient looks stated age, ambulates with cane, and appears to be in no acute distress Speech: Is normal rate, rhythm, volume, coherent . Thought processes: Linear and Goal directed. Rate of thoughts: Within normal limits. Thought content: Rational when discussing discharge desires, becomes irrational when attempting to justify recent suicide attempt in response to not being prescribed pain medication the way he feels it should be prescribed Abstract reasoning: Requires further evaluation Associations: No tangentiality noted today, appears intact Abnormal or psychotic thoughts: No perceptual issues reported or noted Judgment: Limited Insight: Limited Oriented to: Time, place and person. Recent and Remote Memory: Immediate, short-term and long-term memory is intact. Attention Span and Concentration: Adequate Fund of knowledge: Adequate Mood: "I was feeling better but now I'm anxious and depressed because you might be sending me to long-term care." Appears anxious, mild depression with irritability when talking about pain medication and long-term care Affect: Constricted. DIAGNOSES: Major depressive disorder, recurrent, severe, Rule out personality disorder (cluster B), Alcohol use disorder, Chronic pain disorder. ASSESSMENT: Patient appears to be adjusting to unit, has been visible and attending groups, engaging selectively with staff and peers. Patient continues to minimize events which led to his current hospitalization, rationalizes recent suicide attempt and minimizes alcohol use. Patient informed chief writer today that because chief writer is recommending long-term care to address issues of anxiety , depression, recurrent suicidal ideation, and history of suicide attempts, he has concerns about talking with chief writer due to fears the chief writer will use information against him in court. Patient informs chief writer that he feels he would have no behavioral health challenges if his pain was adequately addressed. Pain management consult has been ordered by PA and chief writer encouraged patient to attempt to suspend refusal to participate in treatment at least until he has been evaluated by pain management and given the opportunity to see if he is able to abide by pain management recommendations. Patient was made aware that he has right to refuse to engage with chief writer tomorrow when chief writer attempts assessment and may request another provider, was also informed that he may also discuss his rights and request for court with logistics coordinator and/or assistant district attorney. Block Hacker informed logistics coordinator about patient's concerns and requests to speak with her. Patient indicates current medication regimen of Celexa 20 mg po daily and trazodone 25 mg po hs PRN for insomnia remain effective and denies medication side effects. Patient indicates his discharge plan continues to be returning to home with outpatient treatment. MANAGEMENT PLAN: Patient to continue taking Celexa 20 mg po q day, Trazodone 25 mg po hs PRN insomnia PA has requested pain management consult Maintain safety precautions Patient to attend groups and participate in unit programming to develop coping strategies Engage patient in discharge planning process and arrange meeting with support system to ensure safe discharge planning when appropriate, encourage long-term care/inpatient substance abuse treatment Coordinate discharge with sanforizer, Jessica Rodriguez, of [facility], and with previous psychotherapy and medication management provider [facility] Patient to follow up with PCM upon discharge TIME SPENT: 15 minutes. Vital Signs Vital Signs Date Time Temp Pulse Resp B/P Pulse Ox O2 Delivery O2 Flow Rate FiO2 07/16/16 08:46 16 07/16/16 08:46 133/84 07/16/16 06:41 96.1 93 07/14/16 18:00 Room Air 07/13/16 18:39 95 Laboratory Data 24H Labs Laboratory Tests 2 07/15/16 16:51: Bedside Glucose (Misc Panel) 296H 07/15/16 20:34: Bedside Glucose (Misc Panel) 352H 07/16/16 06:37: Bedside Glucose (Misc Panel) 251H 07/16/16 11:37: Bedside Glucose (Misc Panel) 248H Current Medications Current Medications Medications (Trade) Dose Ordered Sig/Kuldeep Route PRN Reason Start Time Stop Time Status Last Admin Dose Admin Acetaminophen (Tylenol Tab) 650 mg Q6HP PRN PO HEADACHE or DISCOMFORT 07/13/16 22:00 08/12/16 21:59 Al Hydrox/Mg Hydrox/Simethicone (Mylanta) 30 ml Q4HP PRN PO HEARTBURN/INDIGESTION 07/13/16 22:00 08/12/16 21:59 Aspirin (Ecotrin) 81 mg DAILY PO 07/14/16 09:00 08/13/16 08:59 07/16/16 08:45 Atorvastatin Calcium (Lipitor) 10 mg QHS PO 07/13/16 21:00 08/12/16 20:59 07/15/16 20:42 Citalopram Hydrobromide (CeleXA) 20 mg DAILY PO 07/14/16 09:00 08/13/16 08:59 07/16/16 08:45 Dextrose (Dextrose 50%) 25 ml ASDIRECTED PRN IV SEE LABEL COMMENTS 07/13/16 22:00 08/12/16 21:59 Glucagon (Glucagon) 1 mg ASDIRECTED PRN SC SEE LABEL COMMENTS 07/13/16 22:00 08/12/16 21:59 Glucose (Glucose) 16 GM ASDIRECTED PRN PO SEE LABEL COMMENTS 07/13/16 22:00 08/12/16 21:59 Insulin Detemir (Levemir Insulin) 10 units QHS SC 07/13/16 21:00 08/12/16 20:59 07/15/16 20:41 Insulin Detemir (Levemir Insulin) 20 units QAM SC 07/14/16 09:00 08/13/16 08:59 07/16/16 08:44 Insulin Detemir (Levemir Insulin) 50 units BID SC 07/13/16 21:00 07/13/16 23:16 DC Insulin Detemir (Levemir Insulin) 50 units BID SC 07/14/16 09:00 07/14/16 09:00 DC Insulin Human Lispro (HumaLOG INSULIN) See Protocol Table AC IA 07/14/16 07:30 08/13/16 07:29 07/16/16 07:08 Insulin Human Lispro (HumaLOG INSULIN) See [facility] 07/13/16 21:00 08/12/16 20:59 07/15/16 20:41 Insulin Human Lispro (HumaLOG INSULIN) See Protocol Table [facility] 07/14/16 21:00 07/14/16 21:00 DC Lisinopril (Prinivil) 10 mg DAILY PO 07/14/16 09:00 08/13/16 08:59 07/16/16 08:46 Magnesium Hydroxide (Milk Of Magnesia) 30 ml DAILYPRN PRN PO CONSTIPATION 07/13/16 22:00 08/12/16 21:59 Omeprazole (PriLOSEC) 20 mg DAILY PO 07/14/16 09:00 08/13/16 08:59 07/16/16 08:45 Oxycodone HCl (OxyCONTIN) 15 mg BID PO 07/13/16 21:00 07/20/16 20:59 07/16/16 08:46 Oxycodone HCl (Roxicodone, Oxyir) 15 mg BID PO 07/13/16 21:00 07/13/16 23:16 DC Pregabalin (Lyrica) 25 mg BID PO 07/14/16 09:00 07/21/16 08:59 UNV Pregabalin (Lyrica) 225 mg BID PO 07/13/16 21:00 07/20/16 20:59 07/16/16 08:45 Tamsulosin HCl (Flomax) 0.4 mg DAILY PO 07/14/16 09:00 08/13/16 08:59 07/16/16 08:45 Tamsulosin HCl (Flomax) 0.4 mg QHS PO 07/14/16 21:00 07/14/16 21:00 DC Trazodone HCl (Desyrel) 25 mg QHSP PRN PO INSOMNIA 07/13/16 22:30 08/12/16 22:29 07/15/16 20:41 Trazodone HCl (Desyrel) 50 mg QHSP PRN PO INSOMNIA 07/13/16 22:00 07/13/16 22:20 DC Vitamin D (Vitamin D) 1,000 units DAILY PO 07/14/16 09:00 08/13/16 08:59 07/16/16 08:46 Allergies Coded Allergies: Diazepam (Verified Allergy, Unknown, 11/01/13) TAPE (Verified Allergy, Unknown, 12/02/13) Midazolam (Verified Adverse Reaction, Intermediate, "GO CRAZY", 02/15/13) Peggy Avina Jul 16, 2016 12:46
[2016-07-16 18:00] VITALS: BP 129/74
[2016-07-16] MEDS: ATORVASTATIN 10 MG TAB PO SCH (20:50)
[2016-07-16] MEDS: traZODone 25MG PER 1/2 TABLET PO PRN (20:51)
[2016-07-17] MEDS: HumaLOG INSULIN (NovoLOG) PER UNIT SC SCH ×4 (06:36→20:06)
[2016-07-17 06:48] VITALS: BP 124/74
[2016-07-17] MEDS: PREGABALIN 75 MG CAP(LYRICA) PO SCH ×2 (08:07→20:04)
[2016-07-17] MEDS: LEVEMIR (INSULIN DETEMIR) 1 UNITS/0.01ML SC SCH ×2 (08:08→20:07)
[2016-07-17] MEDS: CitaloPRAM (CeleXA) 20 MG TAB PO SCH (08:08)
[2016-07-17] MEDS: TAMSULOSIN 0.4 MG CAP PO SCH (08:08)
[2016-07-17] MEDS: OMEPRAZOLE 20 MG CAP PO SCH (08:08)
[2016-07-17] MEDS: ASPIRIN 81 MG ENTERIC TAB PO SCH (08:08)
[2016-07-17] MEDS: LISINOPRIL 10 MG TAB PO SCH (08:08)
[2016-07-17] MEDS: VITAMIN D 1,000 INTERNATIONAL UNITS TABLET PO SCH (08:08)
[2016-07-17] MEDS: oxyCODONE 15 MG CR TAB PO SCH ×2 (08:09→20:05)
--- NOTE | 2016-07-17 17:00 | IPNPDOC ---
[facility] Progress Note Progress Note DATE OF SERVICE: 07/17/16 HISTORY: It Service Delivery Manager met with patient today to assess treatment progress on inpatient unit. Patient was observed to be up out of bed, attended to ADLs and was reading quietly to self in room between groups. Patient was very engageable , sat up to meet with scientific technical writer, was pleasant and officially cooperative with scientific technical writer. Patient has been visible on unit and participating in unit programming. Patient reports low level anxiety, denies symptoms of depression today, denies suicidal and homicidal ideation, denies audiovisual hallucinations, and denies urge to engage in self-injurious behavior. It Service Delivery Manager attempted to discuss recent pain management consult and patient interjected that he had spoken with PA and he is awaiting results but anticipates ranges to his pain medication. Patient was not interested in discussing discharge planning other than discharge plan to home with and reminded scientific technical writer that he has been in touch with his breakfast server who is advising him that long-term care is not a likely discharge plan for him. Patient has been attending groups, denies challenges with appetite and sleep, indicates energy level is stable, reports physical pain level of 8/10. Patient continues to take Celexa and trazodone, indicates medication regimen is effective and he denies medication side effects. Patient explains to scientific technical writer again today that he feels if his pain was properly managed he would have no behavioral health challenges. It Service Delivery Manager explained to patient at previous appointment that, given patient's history of multiple suicide attempts and most recent suicide attempt in direct response to not feeling his pain is adequately managed, should patient not be in agreement with the results of the pain management consult, discharge plans which would keep patient safe would be limited. VITAL SIGNS: See below. NEW TEST RESULTS: Glucose 230, 208 PA is monitoring. MRI lumbar spine 07/04/16 results indicate facet joint hypertrophy atL4-L5-S! Resulting in moderate bilateral foraminal stenosis. Relevant medical history: COPD, Diabetes mellitus type 2, hepatitis C, DJD, Dupuytren's contractures of hands and feet, CVA 2 in 2008 (no residual effects) , Adjustment disorder with mixed anxiety/depression, Depression with prior suicidal attempts, Alcohol abuse, Grade 1 diastolic CHF. Pain management consult completed, results pending CURRENT MEDICATIONS: See below. MENTAL STATUS EXAMINATION: Patient is a 55-year-old male, calm and cooperative until talking about pain management and pain medication, possibility of discharge to long-term care, at which time patient becomes domineering in conversation and changes subject. Patient looks stated age, ambulates with cane, and appears to be in no acute distress Speech: Is normal rate, rhythm, volume, coherent . Thought processes: Linear and Goal directed. Rate of thoughts: Within normal limits. Thought content: Rational when discussing discharge desires, becomes irrational when attempting to justify recent suicide attempt in response to not being prescribed pain medication the way he feels it should be prescribed Abstract reasoning: Requires further evaluation Associations: No tangentiality noted today, appears intact Abnormal or psychotic thoughts: No perceptual issues reported or noted Judgment: Limited Insight: Limited Oriented to: Time, place and person. Recent and Remote Memory: Immediate, short-term and long-term memory is intact. Attention Span and Concentration: Adequate Fund of knowledge: Adequate Mood: "I feeling better and I'm not going to let other people steel my cory today." Appears calm, no lability noted Affect: Full range, brightens frequently, superficial DIAGNOSES: Major depressive disorder, recurrent, severe, Rule out personality disorder (cluster B), Alcohol use disorder, Chronic pain disorder. ASSESSMENT: Patient appears to be adjusting to unit, has been visible and attending groups, engaging selectively with staff and peers. Patient continues to minimize events which led to his current hospitalization, rationalizes recent suicide attempt and minimizes alcohol use. Patient informs scientific technical writer today that he has decided to speak with scientific technical writer noting, "I went to group this morning and I learned that I should not let other people steel my cory." Patient reminds scientific technical writer that he is been in touch with his breakfast server regarding scientific technical writer's recommendation for long-term care, and verbalizes awareness that pain management consult results are pending. Patient reiterates he feels he would have no behavioral health challenges if his pain was adequately addressed. Pain management consult was completed and PA is awaiting recommendations. Patient indicates current medication regimen of Celexa 20 mg po daily and trazodone 25 mg po hs PRN for insomnia remain effective and denies medication side effects. Patient indicates his discharge plan continues to be returning to home with with follow up outpatient treatment. MANAGEMENT PLAN: Patient to continue taking Celexa 20 mg po q day, Trazodone 25 mg po hs PRN insomnia PA has requested pain management consult - completed, results pending Maintain safety precautions Patient to attend groups and participate in unit programming to develop coping strategies Engage patient in discharge planning process and arrange meeting with support system to ensure safe discharge planning when appropriate, encourage long-term care/inpatient substance abuse treatment Coordinate discharge with drilling and production superintendent, Jessica Rodriguez, of [facility], and with previous psychotherapy and medication management provider [facility] Patient to follow up with PCM upon discharge TIME SPENT: 15 minutes. Vital Signs Vital Signs Date Time Temp Pulse Resp B/P Pulse Ox O2 Delivery O2 Flow Rate FiO2 07/17/16 08:09 20 Room Air 07/17/16 08:08 121/81 07/17/16 06:48 96.9 101 07/13/16 18:39 95 Laboratory Data 24H Labs Laboratory Tests 2 07/16/16 17:33: Bedside Glucose (Misc Panel) 294H 07/16/16 20:47: Bedside Glucose (Misc Panel) 230H 07/17/16 06:33: Bedside Glucose (Misc Panel) 230H 07/17/16 11:47: Bedside Glucose (Misc Panel) 208H Current Medications Current Medications Medications (Trade) Dose Ordered Sig/Kuldeep Route PRN Reason Start Time Stop Time Status Last Admin Dose Admin Acetaminophen (Tylenol Tab) 650 mg Q6HP PRN PO HEADACHE or DISCOMFORT 07/13/16 22:00 08/12/16 21:59 Al Hydrox/Mg Hydrox/Simethicone (Mylanta) 30 ml Q4HP PRN PO HEARTBURN/INDIGESTION 07/13/16 22:00 08/12/16 21:59 Aspirin (Ecotrin) 81 mg DAILY PO 07/14/16 09:00 08/13/16 08:59 07/17/16 08:08 Atorvastatin Calcium (Lipitor) 10 mg QHS PO 07/13/16 21:00 08/12/16 20:59 07/16/16 20:50 Citalopram Hydrobromide (CeleXA) 20 mg DAILY PO 07/14/16 09:00 08/13/16 08:59 07/17/16 08:08 Dextrose (Dextrose 50%) 25 ml ASDIRECTED PRN IV SEE LABEL COMMENTS 07/13/16 22:00 08/12/16 21:59 Glucagon (Glucagon) 1 mg ASDIRECTED PRN SC SEE LABEL COMMENTS 07/13/16 22:00 08/12/16 21:59 Glucose (Glucose) 16 GM ASDIRECTED PRN PO SEE LABEL COMMENTS 07/13/16 22:00 08/12/16 21:59 Insulin [facility]emir [facility]) [facility] 07/13/16 21:00 08/12/16 20:59 07/16/16 20:52 Insulin Detemir (Levemir Insulin) 20 units QA SC 07/14/16 09:00 08/13/16 08:59 07/17/16 08:08 Insulin Detemir (Levemir Insulin) 50 units BID SC 07/13/16 21:00 07/13/16 23:16 DC Insulin Detemir (Levemir Insulin) 50 units BID SC 07/14/16 09:00 07/14/16 09:00 DC Insulin Human Lispro (HumaLOG INSULIN) See Protocol Table AC PR 07/14/16 07:30 08/13/16 07:29 07/17/16 11:51 Insulin Human Lispro (HumaLOG INSULIN) See Protocol Table QHS PR 07/13/16 21:00 08/12/16 20:59 07/15/16 20:41 Insulin Human Lispro (HumaLOG INSULIN) [facility] 07/14/16 21:00 07/14/16 21:00 DC Lisinopril (Prinivil) 10 mg DAILY PO 07/14/16 09:00 08/13/16 08:59 07/17/16 08:08 Magnesium Hydroxide (Milk Of Magnesia) 30 ml DAILYPRN PRN PO CONSTIPATION 07/13/16 22:00 08/12/16 21:59 Omeprazole (PriLOSEC) 20 mg DAILY PO 07/14/16 09:00 08/13/16 08:59 07/17/16 08:08 Oxycodone HCl (OxyCONTIN) 15 mg BID PO 07/13/16 21:00 07/20/16 20:59 07/17/16 08:09 Oxycodone HCl (Roxicodone, Oxyir) 15 mg BID PO 07/13/16 21:00 07/13/16 23:16 DC Pregabalin (Lyrica) 25 mg BID PO 07/14/16 09:00 07/21/16 08:59 UNV Pregabalin (Lyrica) 225 mg BID PO 07/13/16 21:00 07/20/16 20:59 07/17/16 08:07 Tamsulosin HCl (Flomax) 0.4 mg DAILY PO 07/14/16 09:00 08/13/16 08:59 07/17/16 08:08 Tamsulosin HCl (Flomax) 0.4 mg QHS PO 07/14/16 21:00 07/14/16 21:00 DC Trazodone HCl (Desyrel) 25 mg QHSP PRN PO INSOMNIA 07/13/16 22:30 08/12/16 22:29 07/16/16 20:51 Trazodone HCl (Desyrel) 50 mg QHSP PRN PO INSOMNIA 07/13/16 22:00 07/13/16 22:20 DC Vitamin D (Vitamin D) 1,000 units DAILY PO 07/14/16 09:00 08/13/16 08:59 07/17/16 08:08 Allergies Coded Allergies: Diazepam (Verified Allergy, Unknown, 11/01/13) TAPE (Verified Allergy, Unknown, 12/02/13) Midazolam (Verified Adverse Reaction, Intermediate, "GO CRAZY", 02/15/13) Peggy Avina Jul 17, 2016 17:00
--- NOTE | 2016-07-17 17:48 | CR.PDOC ---
[facility] Pain Clinic Consultation General Date of Consultation: 07/16/16 Consultation Report For: Radha Burdick Chief Complaint The patient is a 55-year-old male admitted with a reason for visit of Unspecified Depressive D/O. pain management is asked to see him for his complaint of persistent low back pain History of Present Illness Jarrod Flores is a 55-year-old gentleman who reports that he has been experiencing pain in the low back with radiation to the hips and buttocks and legs for the last 20 years. States that he is originally from [facility] and that he did undergo imaging studies on in his home town which demonstrated "a messed up back". Reports that he was started on opioid medications of 20 mg OxyContin twice a day at that time. States he has undergone many treatments in interventions including physical therapy, injection treatments, but never has been seen by a surgeon. Reports he was most recently seen by Dr. Nicola Leiva at [facility] where a new MRI of the lumbar spine was completed. He states he has not yet gone back for his follow- up visit. He states that his usual medication of OxyContin 20 mg twice a day keeps his pain well managed and that without it his pain level is at 8-9/10 and with that his pain level drops to a 4-5/10. He reports he has never misused his OxyContin. Unfortunately over the last several years has had a number of admissions to the hospital for overdose of polysubstance abuse. The most recent ones in the [facility] system are for an overdose of aspirin and an overdose of insulin. Review of the toxicology screen also notes marked elevation of blood alcohol content. Upon questioning patient states that he does not drink alcohol in excess. Following review the records patient was recently seen at the [facility] following his most recent mental health admission. Due to the patient's unreliable behaviors a decision was made to wean and discontinue his opiates. His OxyContin was reduced to 15 mg twice a day and he did pick this up from the pharmacy. He states he did not take any of it however he did take an intentional overdose of insulin. His called 911 and he was brought to the emergency room and admitted. He is asking today to chest have his OxyContin continued at 20 mg twice a day until he is released and can be followed by Dr. Leiva. I did tell him that Dr. Leiva does not use much in the way of long-term opioid medications. He states that in that case he would look to return to [facility] at his previous physician. He admits that he did overdose on multiple substances but that he "never misused his narcotics". States he does not understand why he cannot continue with the narcotics. Describes his pain as aching throbbing burning and sore. Notes the pain starts across the low back and radiates to the hips and buttocks and down both legs right side greater than left. Reports she cannot walk any distance without significant pain. Denies any significant numbness or focal weakness. Denies any loss of bowel or bladder control. Home Medications Scheduled Aspirin (Aspirin EC) 81 Mg Tabec 81 MG PO DAILY (Reported) Atorvastatin Calcium (Atorvastatin Calcium) 10 Mg Tab 10 MG PO QHS (Reported) Cholecalciferol (Vitamin D) 1,000 Unit Tab 1,000 UNIT PO DAILY (Reported) Citalopram Hydrobromide (Citalopram Hydrobromide) 20 Mg Tab 20 MG PO DAILY ( Reported) Insulin Detemir (Levemir) 1 Units/0.01 Ml Susp 20 UNITS SC QAM Insulin Detemir (Levemir) 1 Units/0.01 Ml Susp 10 UNITS SC QHS Insulin Human Lispro (Humalog) 1 Units/0.01 Ml Inj 1 DOSE SC ACHS (Reported) Lisinopril (Lisinopril) 10 Mg Tab 10 MG PO DAILY (Reported) Omeprazole (Omeprazole) 20 Mg Cap 20 MG PO DAILY (Reported) Pregabalin (Lyrica) 225 Mg Cap 225 MG PO BID (Reported) Sucralfate (Carafate) 1 Gm Tab 1 GM PO ACHS (Reported) Tamsulosin Hydrochloride (Flomax) 0.4 Mg Cap 0.4 MG PO DAILY (Reported) Trazodone HCl (Trazodone HCl) 50 Mg Tab 50 MG PO QHS (Reported) Scheduled PRN Meclizine HCl (Meclizine HCl) 25 Mg Tab 25 MG PO DAILY PRN PRN DIZZINESS ( Reported) Ondansetron HCl (Zofran) 4 Mg Tab 4 MG PO Q6H PRN PRN NAUSEA (Reported) Polyethylene Glycol (Miralax) 1 Pow Pow 17 GM PO BID PRN PRN CONSTIPATION ( Reported) Allergies Coded Allergies: Diazepam (Verified Allergy, Unknown, 11/01/13) TAPE (Verified Allergy, Unknown, 12/02/13) Midazolam (Verified Adverse Reaction, Intermediate, "GO CRAZY", 02/15/13) Past Medical History Medical History Insulin-dependent diabetes History of multiple suicide attempts History of hepatitis C treated with her bony as per Dr. Cross History of CVA Hypertension History of GI bleed Diabetic neuropathy Diverticulosis COPD History of MRSA BPH Family History Significant Family History: Other (noncontributory) Social History Psychosocial History: Prior suicide attempt (multiple attempts to within the last 6 months) Alcohol: occationally (patient states alcohol infrequently used however multiple admissions demonstrate blood alcohol content greater than 0.08) Drugs: denies Review of Systems Subjective Constitutional: Reports: fatigue, Denies: unexplained weight loss HEENT: Reports: hearing problems, Denies: head aches, vision problems Skin: Denies: breakdown, lesions, rash Pulmonary: Reports: shortness of breath (on exertion), Denies: cough, dyspnea Cardiovascular: Denies: chest pain, edema, palpitations Gastrointestinal: Reports: constipation (is denied), Denies: loss of bowel control Genitourinary: Reports: frequency, Denies: dysuria, hematuria, loss of bladder control Hematologic: Denies: blood dyscrasias, easy bleeding, easy bruising Endocrine: Reports: Diabetes mellitus (insulin controlled), Thyroid dysfunction (denies) Musculoskeletal: Reports: leg pain, muscle pain, muscle stiffness, spasms ( across low back) Neurological: Reports: numbness, tingling (in feet), weakness (generalized), Denies: headache, migraines, seizures, tremors Psych: Reports: mood normal, thoughts of harming other (states he feels he was "snatched off the street and is being held against his will and that he understands how the Muslims feel "), thoughts of self harm (states this is only due to having his pain medications denied) Physical Examination Physical Examination Vital Signs/I&O Vital Signs Date Time Temp Pulse Resp B/P Pulse Ox O2 Delivery O2 Flow Rate FiO2 07/17/16 08:09 20 Room Air 07/17/16 08:08 121/81 07/17/16 06:48 96.9 101 07/13/16 18:39 95 Recent Travel/Sick Contacts: Denies: Recent sick contacts, Recent travel Visual Analog Score (VAS) For: 7 ENT EXAM: Positive: PERRLA, normocephalic Neck Exam: Negative: Lymphadenopathy, Thyromegaly Chest Exam: Positive: Clear to auscultation, Negative: Rales, Wheezing Heart Exam: Positive: Normal S1, S2, Regular rate and rhythm, Negative: Murmurs, Rubs Abdominal Exam: Positive: Nondistended, Normal bowel sounds, Soft Extremity Exam: Positive: Other (decreased sensation in a stocking glove fashion from mid calf to the toes), Negative: Edema Skin Exam: Positive: Dry, Warm, Negative: Lesions, Rashes Neuro Exam: Positive: Gait is antalgic (and wide-based), Muscle Strength U/L Ext., Normal Speech, Normal Tone, Reflexes 2+ Psych Exam: Positive: Other (pleasant to interact with, good eye contact , verbally fluent) Inspection of spine Gait is wide-based and antalgic. Posture is stooped point tenderness with palpation over lumbar spinous processes and over right sacroiliac joint and right lumbar paravertebral muscles. No tenderness noted with palpation over the left sacroiliac joint. No focal weakness. Diagnostic and Imaging Studies MRI of lumbar spine was completed on 07/04/2016. This did demonstrate lumbar facet arthropathy at the L3-4 level bilaterally. There was evidence of a mild disc bulge at L4-5 as well as bilateral lumbar facet arthropathy. At L5-S1 there is a broad-based disc bulge with evidence of some mild to minimal S1 nerve root displacement. There is also evidence of bilateral lumbar facet arthropathy at this level. Assessment 1. Lumbar facet arthropathy 2. Sacroiliitis right greater than left number 3. Lumbar disc displacement with out myelopathy Recommendation and Plan I did review the MRI completed in June 2016 with the patient and did talk with him that the imaging studies to demonstrate degenerative changes. I did also review with him that the use of opioid medications is being more strictly controlled and limited. I did also discuss with him that his choices, in particular overdosing on various medications, has not demonstrated that he is a safe individual to be continued with opioid medications. He has very little insight into this concept. At this time would recommend continuing the wean of his opiates. Would continue long-acting oxycodone 15 mg for a total of 1 week then decrease to 10 mg for 1 week then to 5 mg short acting or 1 week and then discontinue. Would use clonidine 0.1 mg every 8 hours as needed for management of withdrawal symptoms. Would have him work with physical therapy as well as use of such strategies as yoga to improve flexibility and strength of the core muscles. Strategies such as use of ball pterin gel or BenGay to the low back may be helpful. If he should experience muscle spasms short-term dosing with tizanidine 4 mg no more than twice per day may be helpful. He should return to Dr. Leiva serves for interventional and certainly if Dr. Leiva feels necessary referral to surgical services. I did discuss the case with Ms. Burdick prior to my seeing the patient as well as following my seeing the patient Thank you Radha for allowing us to participate in the care of your patient, German Flores. Should you have any questions we'll be glad to discuss this with you at any time. Cc: Dr. Nicola Leiva -[facility] CC: Mignon Davis Jul 17, 2016 17:48
[2016-07-17 18:00] VITALS: BP 137/72
[2016-07-17] MEDS: traZODone 25MG PER 1/2 TABLET PO PRN (20:04)
[2016-07-17] MEDS: ATORVASTATIN 10 MG TAB PO SCH (20:05)
[2016-07-18] MEDS: HumaLOG INSULIN (NovoLOG) PER UNIT SC SCH ×4 (06:34→21:55)
[2016-07-18 06:36] VITALS: BP 116/72
[2016-07-18] MEDS: OMEPRAZOLE 20 MG CAP PO SCH (08:04)
[2016-07-18] MEDS: oxyCODONE 15 MG CR TAB PO SCH ×2 (08:05→21:52)
[2016-07-18] MEDS: VITAMIN D 1,000 INTERNATIONAL UNITS TABLET PO SCH (08:05)
[2016-07-18] MEDS: CitaloPRAM (CeleXA) 20 MG TAB PO SCH (08:05)
[2016-07-18] MEDS: TAMSULOSIN 0.4 MG CAP PO SCH (08:05)
[2016-07-18] MEDS: ASPIRIN 81 MG ENTERIC TAB PO SCH (08:05)
[2016-07-18] MEDS: LISINOPRIL 10 MG TAB PO SCH (08:05)
[2016-07-18] MEDS: PREGABALIN 75 MG CAP(LYRICA) PO SCH ×2 (08:05→21:51)
[2016-07-18] MEDS: LEVEMIR (INSULIN DETEMIR) 1 UNITS/0.01ML SC SCH ×2 (08:06→21:56)
--- NOTE | 2016-07-18 17:59 | IPNPDOC ---
[facility] Progress Note Progress Note DATE OF SERVICE: 07/18/16 HISTORY: Plumber Maintenance met with patient today to assess treatment progress on inpatient unit. Patient was observed to be up out of bed, attended to ADLs and was reading quietly to self in room between groups. Patient was very engageable , sat up to meet with insurance underwriter sales, was pleasant and superficially compliant with insurance underwriter sales. Patient has been visible on unit and participating in unit programming. Patient informed insurance underwriter sales that PA has reviewed pain management consult results with him and he is in agreement with attempting to taper off opiate pain medications and follow-up with Dr. Leiva after taper and discharge from Hospital. Patient states he will then follow up with neurosurgeon to evaluate feasibility of surgery. Patient expressed moderate anxiety related to impending taper and fear that pain will worsen, denied depression, denies suicidal and homicidal ideation, denies audiovisual hallucinations, and denies urge to engage in self-injurious behavior. Patient remains disinterested in discussing discharge planning other than discharge plan to home with , reiterated he has been in contact with staff attorney. Patient has been attending groups, denies challenges with appetite and sleep, indicates energy level is stable, reports ongoing physical pain level of 8/10. Patient continues to take Celexa and trazodone and denies medication side effects. Patient today requested increased to trazodone due to nighttime waking, insurance underwriter sales verifies and chart patient had been taking trazodone 50 mg po, was prescribed trazodone 25 mg po upon current admission to hospital. Patient explains to insurance underwriter sales again today that he feels if his pain was properly managed he would not experience anxiety, depression, and suicidal ideation. Plumber Maintenance again explained to patient that given patient's history of multiple suicide attempts and most recent suicide attempt in direct response to not feeling his pain is adequately managed, should patient not be in agreement with the results of the pain management consult, discharge planning options would be limited in effort to keep patient safe. VITAL SIGNS: See below. NEW TEST RESULTS: Glucose 230, 208 PA is monitoring. MRI lumbar spine 07/04/16 results indicate facet joint hypertrophy atL4-L5-S! Resulting in moderate bilateral foraminal stenosis. Relevant medical history: COPD, Diabetes mellitus type 2, hepatitis C, DJD, Dupuytren's contractures of hands and feet, CVA 2 in 2008 (no residual effects) , Adjustment disorder with mixed anxiety/depression, Depression with prior suicidal attempts, Alcohol abuse, Grade 1 diastolic CHF. Pain management consult completed, results pending CURRENT MEDICATIONS: See below. MENTAL STATUS EXAMINATION: Patient is a 55-year-old male, calm and cooperative until talking about pain management and pain medication, possibility of discharge to long-term care, at which time patient becomes domineering in conversation and changes subject. Patient looks stated age, ambulates with cane, and appears to be in no acute distress Speech: Is normal rate, rhythm, volume, coherent . Thought processes: Linear and Goal directed. Rate of thoughts: Within normal limits. Thought content: Rational when discussing discharge desires, becomes irrational when attempting to justify recent suicide attempt in response to not being prescribed pain medication the way he feels it should be prescribed Abstract reasoning: Requires further evaluation Associations: No tangentiality noted today, appears intact Abnormal or psychotic thoughts: No perceptual issues reported or noted Judgment: Limited Insight: Limited Oriented to: Time, place and person. Recent and Remote Memory: Immediate, short-term and long-term memory is intact. Attention Span and Concentration: Adequate Fund of knowledge: Adequate Mood: "I feeling better and I'm not going to let other people steel my cory today." Appears calm, no lability noted Affect: Full range, brightens frequently, superficial DIAGNOSES: Major depressive disorder, recurrent, severe, Rule out personality disorder (cluster B), Alcohol use disorder, Chronic pain disorder. ASSESSMENT: Patient continues to adjust to unit, has been visible and attending groups, engaging selectively with staff and peers. Patient continues to minimize events which led to his current hospitalization, rationalizes recent suicide attempt and minimizes alcohol use. Patient is willing to meet with insurance underwriter sales today and indicates he is agreeable to recommendations made by pain identity access management architect. Patient verbalizes awareness that he is being evaluated for need for long-term care treatment, reminds insurance underwriter sales that he is been in touch with his staff attorney regarding insurance underwriter sales's recommendation for long-term care. Patient reiterates he feels he would have no behavioral health challenges if his pain was adequately addressed. Patient indicates current medication regimen of Celexa 20 mg po daily remains effective, makes request for Trazodone dose increase due to sleep maintenace challenges. Patient denies medication side effects. Patient indicates his discharge plan continues to be returning to home with with follow up outpatient treatment. MANAGEMENT PLAN: Increase Trazodone to 50 mg po hs PRN insomnia. Continue Celexa 20 mg po q day PA has requested pain management consult - completed Maintain safety precautions Patient to attend groups and participate in unit programming to develop coping strategies Engage patient in discharge planning process and arrange meeting with support system to ensure safe discharge planning when appropriate, encourage long-term care/inpatient substance abuse treatment Coordinate discharge with safety representative, Jessica Rodriguez, of [facility], and with previous psychotherapy and medication management provider [facility] Patient to follow up with PCM upon discharge TIME SPENT: 25 minutes. Vital Signs Vital Signs Date Time Temp Pulse Resp B/P Pulse Ox O2 Delivery O2 Flow Rate FiO2 07/18/16 08:05 20 Room Air 07/18/16 08:05 116/72 07/18/16 06:36 96.2 78 07/13/16 18:39 95 Laboratory Data 24H Labs Laboratory Tests 2 07/17/16 17:47: Bedside Glucose (Misc Panel) 268H 07/17/16 20:01: Bedside Glucose (Misc Panel) 297H 07/18/16 06:21: Bedside Glucose (Misc Panel) 245H 07/18/16 12:11: Bedside Glucose (Misc Panel) 233H 07/18/16 16:53: Bedside Glucose (Misc Panel) 249H Current Medications Current Medications Medications (Trade) Dose Ordered Sig/Kuldeep Route PRN Reason Start Time Stop Time Status Last Admin Dose Admin Acetaminophen (Tylenol Tab) 650 mg Q6HP PRN PO HEADACHE or DISCOMFORT 07/13/16 22:00 08/12/16 21:59 Al Hydrox/Mg Hydrox/Simethicone (Mylanta) 30 ml Q4HP PRN PO HEARTBURN/INDIGESTION 07/13/16 22:00 08/12/16 21:59 Aspirin (Ecotrin) 81 mg DAILY PO 07/14/16 09:00 08/13/16 08:59 07/18/16 08:05 Atorvastatin Calcium (Lipitor) 10 mg QHS PO 07/13/16 21:00 08/12/16 20:59 07/17/16 20:05 Citalopram Hydrobromide (CeleXA) 20 mg DAILY PO 07/14/16 09:00 08/13/16 08:59 07/18/16 08:05 Dextrose (Dextrose 50%) 25 ml ASDIRECTED PRN IV SEE LABEL COMMENTS 07/13/16 22:00 08/12/16 21:59 Glucagon (Glucagon) 1 mg ASDIRECTED PRN SC SEE LABEL COMMENTS 07/13/16 22:00 08/12/16 21:59 Glucose (Glucose) 16 GM ASDIRECTED PRN PO SEE LABEL COMMENTS 07/13/16 22:00 08/12/16 21:59 Insulin Detemir (Levemir Insulin) [facility] 07/13/16 21:00 08/12/16 20:59 07/17/16 20:07 Insulin Detemir (Levemir Insulin) 20 units QAM SC 07/14/16 09:00 08/13/16 08:59 07/18/16 08:06 Insulin Detemir (Levemir Insulin) 50 units BID SC 07/13/16 21:00 07/13/16 23:16 DC Insulin Detemir (Levemir Insulin) 50 units BID SC 07/14/16 09:00 07/14/16 09:00 DC Insulin Human Lispro (HumaLOG INSULIN) See Protocol Table AC IA 07/14/16 07:30 08/13/16 07:29 07/18/16 16:56 Insulin Human Lispro (HumaLOG INSULIN) See Protocol [facility] 07/13/16 21:00 08/12/16 20:59 07/17/16 20:06 Insulin Human Lispro (HumaLOG INSULIN) See Protocol [facility] 07/14/16 21:00 07/14/16 21:00 DC Lisinopril (Prinivil) 10 mg DAILY PO 07/14/16 09:00 08/13/16 08:59 07/18/16 08:05 Magnesium Hydroxide (Milk Of Magnesia) 30 ml DAILYPRN PRN PO CONSTIPATION 07/13/16 22:00 08/12/16 21:59 Omeprazole (PriLOSEC) 20 mg DAILY PO 07/14/16 09:00 08/13/16 08:59 07/18/16 08:04 Oxycodone HCl (OxyCONTIN) 15 mg BID PO 07/13/16 21:00 07/20/16 20:59 07/18/16 08:05 Oxycodone HCl (Roxicodone, Oxyir) 15 mg BID PO 07/13/16 21:00 07/13/16 23:16 DC Pregabalin (Lyrica) 25 mg BID PO 07/14/16 09:00 07/21/16 08:59 UNV Pregabalin (Lyrica) 225 mg BID PO 07/13/16 21:00 07/20/16 20:59 07/18/16 08:05 Tamsulosin HCl (Flomax) 0.4 mg DAILY PO 07/14/16 09:00 08/13/16 08:59 07/18/16 08:05 Tamsulosin HCl (Flomax) 0.4 mg QHS PO 07/14/16 21:00 07/14/16 21:00 DC Trazodone HCl (Desyrel) 25 mg QHSP PRN PO INSOMNIA 07/13/16 22:30 07/18/16 17:37 DC 07/17/16 20:04 Trazodone HCl (Desyrel) 50 mg QHSP PRN PO INSOMNIA 07/13/16 22:00 07/13/16 22:20 DC Trazodone HCl (Desyrel) 50 mg QHSP PRN PO INSOMNIA 07/18/16 17:45 08/17/16 17:44 Vitamin D (Vitamin D) 1,000 units DAILY PO 07/14/16 09:00 08/13/16 08:59 07/18/16 08:05 Allergies Coded Allergies: Diazepam (Verified Allergy, Unknown, 11/01/13) TAPE (Verified Allergy, Unknown, 12/02/13) Midazolam (Verified Adverse Reaction, Intermediate, "GO CRAZY", 02/15/13) Peggy Avina Jul 18, 2016 17:59
[2016-07-18 18:00] VITALS: BP 112/68
[2016-07-18] MEDS: traZODone 50 MG TAB PO PRN (21:51)
[2016-07-18] MEDS: ATORVASTATIN 10 MG TAB PO SCH (21:52)
[2016-07-19 06:50] VITALS: BP 139/84
[2016-07-19] MEDS: HumaLOG INSULIN (NovoLOG) PER UNIT SC SCH ×4 (06:53→20:29)
[2016-07-19] MEDS: OMEPRAZOLE 20 MG CAP PO SCH (08:08)
[2016-07-19] MEDS: CitaloPRAM (CeleXA) 20 MG TAB PO SCH (08:08)
[2016-07-19] MEDS: oxyCODONE 15 MG CR TAB PO SCH ×2 (08:08→20:27)
[2016-07-19] MEDS: LEVEMIR (INSULIN DETEMIR) 1 UNITS/0.01ML SC SCH ×2 (08:08→20:28)
[2016-07-19] MEDS: ASPIRIN 81 MG ENTERIC TAB PO SCH (08:08)
[2016-07-19] MEDS: VITAMIN D 1,000 INTERNATIONAL UNITS TABLET PO SCH (08:08)
[2016-07-19] MEDS: PREGABALIN 75 MG CAP(LYRICA) PO SCH ×2 (08:09→20:26)
[2016-07-19] MEDS: TAMSULOSIN 0.4 MG CAP PO SCH (08:09)
[2016-07-19] MEDS: LISINOPRIL 10 MG TAB PO SCH (08:09)
[2016-07-19] MEDS: MOM 30ML SUSPENSION UDC PO PRN ×2 (09:56→20:50)
[2016-07-19 18:00] VITALS: BP 121/78
[2016-07-19] MEDS: ATORVASTATIN 10 MG TAB PO SCH (20:25)
[2016-07-19] MEDS: traZODone 50 MG TAB PO PRN (20:25)
[2016-07-20 06:45] VITALS: BP 133/86
[2016-07-20] MEDS: HumaLOG INSULIN (NovoLOG) PER UNIT SC SCH ×4 (06:59→20:13)
[2016-07-20] MEDS: CitaloPRAM (CeleXA) 20 MG TAB PO SCH (08:04)
[2016-07-20] MEDS: LISINOPRIL 10 MG TAB PO SCH (08:05)
[2016-07-20] MEDS: ASPIRIN 81 MG ENTERIC TAB PO SCH (08:05)
[2016-07-20] MEDS: OMEPRAZOLE 20 MG CAP PO SCH (08:05)
[2016-07-20] MEDS: PREGABALIN 75 MG CAP(LYRICA) PO SCH ×2 (08:05→20:13)
[2016-07-20] MEDS: TAMSULOSIN 0.4 MG CAP PO SCH (08:05)
[2016-07-20] MEDS: VITAMIN D 1,000 INTERNATIONAL UNITS TABLET PO SCH (08:05)
[2016-07-20] MEDS: oxyCODONE 15 MG CR TAB PO SCH ×2 (08:06→20:13)
[2016-07-20] MEDS: LEVEMIR (INSULIN DETEMIR) 1 UNITS/0.01ML SC SCH ×2 (08:07→20:13)
[2016-07-20 18:00] VITALS: BP 135/83
[2016-07-20] MEDS: ATORVASTATIN 10 MG TAB PO SCH (20:12)
[2016-07-20] MEDS: traZODone 50 MG TAB PO PRN (20:13)
[2016-07-21] MEDS: HumaLOG INSULIN (NovoLOG) PER UNIT SC SCH ×4 (06:30→20:27)
[2016-07-21 06:42] VITALS: BP 138/75
[2016-07-21] MEDS: ASPIRIN 81 MG ENTERIC TAB PO SCH (08:23)
[2016-07-21] MEDS: LISINOPRIL 10 MG TAB PO SCH (08:23)
[2016-07-21] MEDS: CitaloPRAM (CeleXA) 20 MG TAB PO SCH (08:23)
[2016-07-21] MEDS: OMEPRAZOLE 20 MG CAP PO SCH (08:23)
[2016-07-21] MEDS: VITAMIN D 1,000 INTERNATIONAL UNITS TABLET PO SCH (08:23)
[2016-07-21] MEDS: LEVEMIR (INSULIN DETEMIR) 1 UNITS/0.01ML SC SCH ×2 (08:23→20:28)
[2016-07-21] MEDS: TAMSULOSIN 0.4 MG CAP PO SCH (08:23)
[2016-07-21] MEDS: PREGABALIN 75 MG CAP(LYRICA) PO SCH ×2 (08:24→20:25)
[2016-07-21] MEDS: oxyCODONE 15 MG CR TAB PO SCH ×2 (08:24→20:25)
[2016-07-21] MEDS: **PENDING PPD ENTRY XX SCH (09:00)
[2016-07-21] MEDS: MOM 30ML SUSPENSION UDC PO PRN (09:32)
[2016-07-21] MEDS ORDERED: ANALGESIC BALM CRM 120 GM TOP PRN (15:15)
--- NOTE | 2016-07-21 15:37 | IPNPDOC ---
Assessment/Plan Date Seen The patient was seen on 07/21/16. Problems Problems: (1) Chronic low back pain Status: Chronic Problem Text: * Obtained copy of MRI completed at [facility] in [place] requested by Dr. Leiva. This indicated diminished disc hydration L1-L2, L2-L3 and L5-L1. Disc bulge L 12, L4-5. And broad-based disc bulge L5-S1. * Obtained copy of office note from Dr. Leiva dated 05/19/16. At that time MRI was set up. Patient was advised to continue medications as per primary care. Medication management was deferred to primary care. Recommendation was to exhaust nonnarcotic medication management for chronic nonmalignant pain. Plan was to follow-up in 4 weeks to review MRI results. * Reviewed with patient today. Request pain management opinion for further management of chronic pain. * Continue with present Lyrica 225 mg by mouth twice a day (of note patient was reduced 07/11/16-150 mg by mouth twice a day as per [facility]) and patient has confirmed these instructions as per PCP. * Currently patient remains on OxyContin 15 mg by mouth twice a day which was filled 07/11/16 for 7 day supply as per [facility] reference number [id number] * Narcotic weaning schedule as per Pain mgmt. * PT eval and treat. * Add Flector patch. * Add Carlin cardoza as needed. * Consider Zanaflex as needed if pain is not controlled as recommended as per pain mgmt. (2) Unsteady gait Status: Chronic Problem Text: * Continue with cane. Plan / VTE VTE Prophylaxis Ordered?: No (ambulatory) Subjective Review of Systems CC/HPI The patient is a 55-year-old male admitted with a reason for visit of Unspecified Depressive D/O. Events since last encounter Pt states he is agreaable to reducing and discontinuing pain medications as per Pain mgmt. Pulmonary: Denies: Cough, Dyspnea Cardiovascular: Denies: Chest Pain, Lt Headedness, Orthopnea, Palpitations, Paroxysmal Noc. Dyspnea Objective Physical Examination General Exam: Positive: Alert Eye Exam: Positive: PERRLA Chest Exam: Positive: Clear to auscultation, Normal air movement Heart Exam: Positive: Normal S1, Normal S2, Rate Normal, Regular Rhythm, Negative: Murmurs, Rubs Skin Exam: Positive: Nl turgor and temperature Neuro Exam: Positive: Other (ambulating with cane) Vital Signs/I&O Vital Signs Date Time Temp Pulse Resp B/P Pulse Ox O2 Delivery O2 Flow Rate FiO2 07/21/16 08:24 18 07/21/16 08:23 138/75 07/21/16 06:42 96.8 104 07/18/16 08:05 Room Air Laboratory Data Labs 24H Laboratory Tests 2 07/20/16 16:41: Bedside Glucose (Misc Panel) 292H 07/20/16 19:56: Bedside Glucose (Misc Panel) 240H 07/21/16 06:14: Bedside Glucose (Misc Panel) 392H 07/21/16 11:41: Bedside Glucose (Misc Panel) 189H FSBS Laboratory Tests Test 07/20/16 16:41 07/20/16 19:56 07/21/16 06:14 07/21/16 11:41 Range/Units Bedside Glucose (Misc Panel) 292 240 392 189 70-105 MG/DL Radha Burdick Jul 21, 2016 15:37
[2016-07-21 18:24] VITALS: BP 126/72
--- NOTE | 2016-07-21 18:51 | IPNPDOC ---
[facility] Progress Note Progress Note DATE OF SERVICE: 07/21/16 HISTORY: Furnace Utility Operator met with patient today to assess treatment progress on inpatient unit. Patient was observed to be up out of bed, attended to ADLs and was reading quietly to self in room between groups. Patient was very engageable , pleasant and superficially compliant with sba underwriter. Patient has been visible on unit and participating in unit programming. Patient informed sba underwriter that PA has reviewed pain management consult results with him and he is in agreement with attempting to taper off opiate pain medications and follow-up with Dr. Leiva after taper and discharge from Hospital, remains aware that primary discharge plan is to long-term care. Patient report 3/10 anxiety related to pending pain med taper, denied depression, reported 8/10 physical pain level, denied audiovisual hallucinations, denied suicidal and homicidal ideation, denied urge to engage in self-injurious behavior. Patient has been attending groups, denies challenges with appetite and sleep, indicates energy level is stable. Patient continues to take Celexa and trazodone and denies medication side effects. Patient reiterates toady that he feels if his pain was properly managed he would not experience anxiety, depression, and suicidal ideation. Furnace Utility Operator again explained to patient that given patient's history of multiple suicide attempts and most recent suicide attempt in direct response to not feeling his pain is adequately managed, should patient not be able to comply with recommendations from pain management consult, discharge planning options would be limited in effort to keep patient safe. VITAL SIGNS: See below. NEW TEST RESULTS: Glucose 189, PA is monitoring. MRI lumbar spine 07/04/16 results indicate facet joint hypertrophy atL4-L5-S! Resulting in moderate bilateral foraminal stenosis. Relevant medical history: COPD, Diabetes mellitus type 2, hepatitis C, DJD, Dupuytren's contractures of hands and feet, CVA 2 in 2008 (no residual effects) , Adjustment disorder with mixed anxiety/depression, Depression with prior suicidal attempts, Alcohol abuse, Grade 1 diastolic CHF. Pain management consult completed, results in EMR, taper recommended CURRENT MEDICATIONS: See below. MENTAL STATUS EXAMINATION: Patient is a 55-year-old male, calm and cooperative, states he wants to in pain medication taper so that he can be discharged and work with the neurosurgeon to discuss options for surgery to back to relieve pain. Patient appears stated age, ambulates with cane, and appears to be in no acute distress Speech: Is normal rate, rhythm, volume, coherent . Thought processes: Linear and Goal directed. Rate of thoughts: Within normal limits. Thought content: Rational when discussing discharge desires, becomes irrational when attempting to justify recent suicide attempt in response to not being prescribed pain medication the way he feels it should be prescribed Abstract reasoning: Requires further evaluation Associations: No tangentiality noted today, appears intact Abnormal or psychotic thoughts: No perceptual issues reported or noted Judgment: Limited Insight: Limited Oriented to: Time, place and person. Recent and Remote Memory: Immediate, short-term and long-term memory is intact. Attention Span and Concentration: Adequate Fund of knowledge: Adequate Mood: "I feeling pretty good." Appears calm, no lability noted Affect: Full range, brightens frequently, superficial DIAGNOSES: Major depressive disorder, recurrent, severe, Rule out personality disorder (cluster B), Alcohol use disorder, Chronic pain disorder. ASSESSMENT: Patient continues to adjust to unit, has been visible and attending groups, engaging selectively with staff and peers. Patient continues to minimize events which led to his current hospitalization, rationalizes recent suicide attempt and minimizes alcohol use. Patient is willing to meet with sba underwriter today and indicates he is agreeable to recommendations made by pain systems management consultant. Patient verbalizes awareness that he is being evaluated for need for long-term care treatment, and today also agrees to go to inpatient substance abuse rehabilitation though states he would prefer not to because this will delay his ability to work with neurosurgeon to address physical pain. Orders entered into EMR needed for transfer to long-term care. Patient has informed sba underwriter that he has an associate attorney who is working with him to ensure his rights are protected for discharge planning purposes. Patient reiterates he feels he would have no behavioral health challenges if his pain was adequately addressed. Patient indicates current medication regimen of Celexa 20 mg po daily remains and Trazodone 50 mg hs for sleep are effective, denies medication side effects. Patient indicates his discharge plan continues to be returning to home with with follow up outpatient treatment. MANAGEMENT PLAN: Continue Trazodone to 50 mg po hs PRN insomnia. Continue Celexa 20 mg po q day PA has requested pain management consult - completed, taper to be instituted Maintain safety precautions Patient to attend groups and participate in unit programming to develop coping strategies Engage patient in discharge planning process and arrange meeting with support system to ensure safe discharge planning when appropriate, encourage long-term care/inpatient substance abuse treatment Coordinate discharge with vat cleaner, Jessica Rodriguez, of [facility], and with previous psychotherapy and medication management provider [facility] Patient to follow up with PCM upon discharge TIME SPENT: 35 minutes Vital Signs Vital Signs Date Time Temp Pulse Resp B/P Pulse Ox O2 Delivery O2 Flow Rate FiO2 07/21/16 18:24 96.9 82 16 126/72 07/18/16 08:05 Room Air Laboratory Data 24H Labs Laboratory Tests 2 07/20/16 19:56: Bedside Glucose (Misc Panel) 240H 07/21/16 06:14: Bedside Glucose (Misc Panel) 392H 07/21/16 11:41: Bedside Glucose (Misc Panel) 189H 07/21/16 16:56: Bedside Glucose (Misc Panel) 268H Current Medications Current Medications Medications (Trade) Dose Ordered Sig/Kuldeep Route PRN Reason Start Time Stop Time Status Last Admin Dose Admin Acetaminophen (Tylenol Tab) 650 mg Q6HP PRN PO HEADACHE or DISCOMFORT 07/13/16 22:00 08/12/16 21:59 Al Hydrox/Mg Hydrox/Simethicone (Mylanta) 30 ml Q4HP PRN PO HEARTBURN/INDIGESTION 07/13/16 22:00 08/12/16 21:59 Aspirin (Ecotrin) 81 mg DAILY PO 07/14/16 09:00 08/13/16 08:59 07/21/16 08:23 Atorvastatin Calcium (Lipitor) 10 mg QHS PO 07/13/16 21:00 08/12/16 20:59 07/20/16 20:12 Citalopram Hydrobromide (CeleXA) 20 mg DAILY PO 07/14/16 09:00 08/13/16 08:59 07/21/16 08:23 Dextrose (Dextrose 50%) 25 ml ASDIRECTED PRN IV SEE LABEL COMMENTS 07/13/16 22:00 08/12/16 21:59 Diclofenac Epolamine (Flector 1.3%) 1 patch Q12H TOP 07/21/16 21:00 08/20/16 20:59 Glucagon (Glucagon) 1 mg ASDIRECTED PRN SC SEE LABEL COMMENTS 07/13/16 22:00 08/12/16 21:59 Glucose (Glucose) 16 GM ASDIRECTED PRN PO SEE LABEL COMMENTS 07/13/16 22:00 08/12/16 21:59 Insulin Detemir (Le[facility]mir Ins[facility]) [facility] 07/13/16 21:00 08/12/16 20:59 07/20/16 20:13 Insulin Detemir ([facility]) [facility] 07/14/16 09:00 08/13/16 08:59 07/21/16 08:23 Insulin Detemir (Levemir Insulin) 50 units BID SC 07/13/16 21:00 07/13/16 23:16 DC Insulin Detemir (Levemir Insulin) 50 units BID SC 07/14/16 09:00 07/14/16 09:00 DC Insulin Human Lispro (HumaLOG INSULIN) See Protocol Table [facility] 07/14/16 07:30 08/13/16 07:29 07/21/16 16:58 Insulin Human Lispro (HumaLOG INSULIN) [facility] 07/13/16 21:00 08/12/16 20:59 07/18/16 21:55 Insulin Human Lispro (HumaLOG INSULIN) See [facility] 07/14/16 21:00 07/14/16 21:00 DC Lisinopril (Prinivil) 10 mg DAILY PO 07/14/16 09:00 08/13/16 08:59 07/21/16 08:23 Magnesium Hydroxide (Milk Of Magnesia) 30 ml DAILYPRN PRN PO CONSTIPATION 07/13/16 22:00 08/12/16 21:59 07/21/16 09:32 Menthol/Methyl Salicylate (Bengay Cream) apply to low back as needed BID PRN TOP PAIN 07/21/16 15:15 08/20/16 15:14 Omeprazole (PriLOSEC) 20 mg DAILY PO 07/14/16 09:00 08/13/16 08:59 07/21/16 08:23 Oxycodone HCl (OxyCONTIN) 15 mg BID PO 07/13/16 21:00 07/27/16 20:59 07/21/16 08:24 Oxycodone HCl (Roxicodone, Oxyir) 15 mg BID PO 07/13/16 21:00 07/13/16 23:16 DC Pregabalin (Lyrica) 25 mg BID PO 07/14/16 09:00 07/21/16 08:59 UNV Pregabalin (Lyrica) 225 mg BID PO 07/13/16 21:00 07/27/16 20:59 07/21/16 08:24 Tamsulosin HCl (Flomax) 0.4 mg DAILY PO 07/14/16 09:00 08/13/16 08:59 07/21/16 08:23 Tamsulosin HCl (Flomax) 0.4 mg QHS PO 07/14/16 21:00 07/14/16 21:00 DC Trazodone HCl (Desyrel) 25 mg QHSP PRN PO INSOMNIA 07/13/16 22:30 07/18/16 17:37 DC 07/17/16 20:04 Trazodone HCl (Desyrel) 50 mg QHSP PRN PO INSOMNIA 07/13/16 22:00 07/13/16 22:20 DC Trazodone HCl (Desyrel) 50 mg QHSP PRN PO INSOMNIA 07/18/16 17:45 08/17/16 17:44 07/20/16 20:13 Vitamin D (Vitamin D) 1,000 units DAILY PO 07/14/16 09:00 08/13/16 08:59 07/21/16 08:23 Allergies Coded Allergies: Diazepam (Verified Allergy, Unknown, 11/01/13) TAPE (Verified Allergy, Unknown, 12/02/13) Midazolam (Verified Adverse Reaction, Intermediate, "GO CRAZY", 02/15/13) Peggy Avina Jul 21, 2016 18:51
[2016-07-21] MEDS: ATORVASTATIN 10 MG TAB PO SCH (20:25)
[2016-07-21] MEDS: traZODone 50 MG TAB PO PRN (20:25)
[2016-07-21] MEDS: DICLOFENAC EPOLAMINE 1.3 % PATCH TOP SCH (20:28)
[2016-07-22 06:31] VITALS: BP 147/86
[2016-07-22] MEDS: HumaLOG INSULIN (NovoLOG) PER UNIT SC SCH ×4 (06:58→20:07)
[2016-07-22] MEDS: TAMSULOSIN 0.4 MG CAP PO SCH (08:06)
[2016-07-22] MEDS: OMEPRAZOLE 20 MG CAP PO SCH (08:06)
[2016-07-22] MEDS: LEVEMIR (INSULIN DETEMIR) 1 UNITS/0.01ML SC SCH ×2 (08:06→20:08)
[2016-07-22] MEDS: CitaloPRAM (CeleXA) 20 MG TAB PO SCH (08:06)
[2016-07-22] MEDS: VITAMIN D 1,000 INTERNATIONAL UNITS TABLET PO SCH (08:06)
[2016-07-22] MEDS: PREGABALIN 75 MG CAP(LYRICA) PO SCH ×2 (08:06→20:04)
[2016-07-22] MEDS: ASPIRIN 81 MG ENTERIC TAB PO SCH (08:06)
[2016-07-22] MEDS: LISINOPRIL 10 MG TAB PO SCH (08:07)
[2016-07-22] MEDS: oxyCODONE 15 MG CR TAB PO SCH ×2 (08:07→20:05)
[2016-07-22] MEDS: DICLOFENAC EPOLAMINE 1.3 % PATCH TOP SCH ×2 (08:08→20:08)
[2016-07-22] MEDS: **PENDING PPD ENTRY XX SCH (08:08)
--- NOTE | 2016-07-22 09:12 | IPNPDOC ---
Text Note Date of Service The patient was seen on 07/17/16. Received a call this morning from Peggy Avina MACHINERY REPAIR MAINTENANCE SUPERVISOR requesting clarification of recommendations for weaning of opiate medications. I did review these verbally with Ms. Avina. Would recommend tapering schedule as follows: 1. Oxycodone ER 15 mg twice a day 7 days 2. Oxycodone ER 10 mg twice a day 7 days 3. Oxycodone IR 5 mg every 12 hours when necessary pain 7 days then stop 4. Use clonidine 0.1 mg by mouth every 8 hours when necessary withdrawal symptoms such as sweating diarrhea or jitters Mignon Phelan Jul 22, 2016 09:12
[2016-07-22] MEDS ORDERED: TUBERCULIN PPD 5 UNITS/0.1 ML ID ONE (10:00)
--- NOTE | 2016-07-22 16:12 | IPNPDOC ---
[facility] Progress Note Progress Note DATE OF SERVICE: 07/22/16 HISTORY: Customer Associate met with patient today to assess treatment progress on inpatient unit. Patient was observed to be up out of bed, attended to ADLs and was reading quietly to self in room between groups. Patient remains engageable, pleasant and superficially compliant with principal technical writer. Patient has been visible on unit and participating in unit programming. Patient stated he is aware withdrawal protocol has been initiated, remains in agreement with taper plan which includes follow up with Dr. Leiva post discharge from hospital. Patient remains aware that primary discharge plan is to long term care pharmacist care. Patient reported 2/10 anxiety, 2/10 depression, reported 6/10 physical pain, denied audiovisual hallucinations, denied suicidal and homicidal ideation, denied urge to engage in self-injurious behavior. Patient denies challenges with appetite and sleep, indicates energy level is stable. Patient continues to take Celexa and trazodone and denies medication side effects, notes Celexa is effective but reports director of religious life waking 1 with trazodone, attributes awakening to pain. Patient reiterates toady that he feels if his pain was properly managed he would not experience anxiety, depression, and suicidal ideation. Customer Associate again explained to patient that given patient's history of multiple suicide attempts and most recent suicide attempt in direct response to not feeling his pain is adequately managed, should patient not be able to comply with recommendations from pain management consult, discharge planning options would be limited in effort to keep patient safe. Addendum: Customer Associate contacted Mignon Phelan from pain management clinic to seek clarification on oxycodone taper. Customer Associate also confirmed medication taper with pharmacist Pat. Taper orders have been entered and patient is aware, verbalizes understanding and agreement. VITAL SIGNS: See below. NEW TEST RESULTS: Glucose 239, 217, PA is monitoring. MRI lumbar spine 07/04/16 results indicate facet joint hypertrophy atL4-L5-S! Resulting in moderate bilateral foraminal stenosis. Relevant medical history: COPD, Diabetes mellitus type 2, hepatitis C, DJD, Dupuytren's contractures of hands and feet, CVA 2 in 2008 (no residual effects) , Adjustment disorder with mixed anxiety/depression, Depression with prior suicidal attempts, Alcohol abuse, Grade 1 diastolic CHF. Pain management consult completed, results in EMR, taper recommended CURRENT MEDICATIONS: See below. MENTAL STATUS EXAMINATION: Patient is a 55-year-old male, calm and cooperative, states he wants to in pain medication taper so that he can be discharged and work with the neurosurgeon to discuss options for surgery to back to relieve pain. Patient appears stated age, ambulates with cane, and appears to be in no acute distress Speech: Is normal rate, rhythm, volume, coherent . Thought processes: Linear and Goal directed. Rate of thoughts: Within normal limits. Thought content: Rational when discussing discharge desires, becomes irrational when attempting to justify recent suicide attempt in response to not being prescribed pain medication the way he feels it should be prescribed Abstract reasoning: Appears intact Associations: No tangentiality noted today, appears intact Abnormal or psychotic thoughts: No perceptual issues reported or noted Judgment: Limited Insight: Limited Oriented to: Time, place and person. Recent and Remote Memory: Immediate, short-term and long-term memory is intact. Attention Span and Concentration: Adequate Fund of knowledge: Adequate Mood: "I feeling good." Appears calm, no lability noted Affect: Full range, brightens frequently, superficial DIAGNOSES: Major depressive disorder, recurrent, severe, Rule out personality disorder (cluster B), Alcohol use disorder, Chronic pain disorder. ASSESSMENT: Patient continues to adjust to unit, has been visible and attending groups, engaging selectively with staff and peers. Patient continues to minimize events which led to his current hospitalization, rationalizes recent suicide attempt and minimizes alcohol use. Patient willingly met with principal technical writer today and indicates he is agreeable to recommendations made by pain bridal service sales and management. Patient verbalizes awareness that he is being evaluated for need for long-term care treatment, he reiterates today he is in agreement with going to inpatient substance abuse treatment though states he would prefer not to because this will delay his ability to work with neurosurgeon to address physical pain. Patient has informed principal technical writer that he has an regulatory attorney who is working with him to ensure his rights are protected for discharge planning purposes and reiterates he feels he would have no behavioral health challenges if his pain was adequately addressed. Patient indicates current medication regimen of Celexa 20 mg po daily remains effective, states Trazodone 50 mg hs for sleep is intermittently effective complaining of nighttime waking due to pain, but also notes he takes medication two hours before going to bed. Patient was advised to take medication closer to bedtime in effort to reduce maintenance challenges. Patient denies medication side effects. Patient indicates his discharge plan continues to be returning to home with with follow up outpatient treatment. MANAGEMENT PLAN: Continue Trazodone to 50 mg po hs PRN insomnia and Celexa 20 mg po q day PA has requested pain management consult - completed, taper to be instituted Maintain safety precautions Patient to attend groups and participate in unit programming to develop coping strategies Engage patient in discharge planning process and arrange meeting with support system to ensure safe discharge planning when appropriate, encourage long-term care/inpatient substance abuse treatment Coordinate discharge with carpet jack, Jessica Rodriguez, of [facility], and with previous psychotherapy and medication management provider [facility] Patient to follow up with PCM upon discharge TIME SPENT: 35 minutes Vital Signs Vital Signs Date Time Temp Pulse Resp B/P Pulse Ox O2 Delivery O2 Flow Rate FiO2 07/22/16 08:07 16 07/22/16 08:07 147/86 07/22/16 06:31 96.1 83 07/18/16 08:05 Room Air Laboratory Data 24H Labs Laboratory Tests 2 07/21/16 16:56: Bedside Glucose (Misc Panel) 268H 07/21/16 20:20: Bedside Glucose (Misc Panel) 365H 07/22/16 06:20: Bedside Glucose (Misc Panel) 239H 07/22/16 11:36: Bedside Glucose (Misc Panel) 217H Current Medications Current Medications Medications (Trade) Dose Ordered Sig/Kuldeep Route PRN Reason Start Time Stop Time Status Last Admin Dose Admin Acetaminophen (Tylenol Tab) 650 mg Q6HP PRN PO HEADACHE or DISCOMFORT 07/13/16 22:00 08/12/16 21:59 Al Hydrox/Mg Hydrox/Simethicone (Mylanta) 30 ml Q4HP PRN PO HEARTBURN/INDIGESTION 07/13/16 22:00 08/12/16 21:59 Aspirin (Ecotrin) 81 mg DAILY PO 07/14/16 09:00 08/13/16 08:59 07/22/16 08:06 Atorvastatin Calcium (Lipitor) 10 mg QHS PO 07/13/16 21:00 08/12/16 20:59 07/21/16 20:25 Citalopram Hydrobromide (CeleXA) 20 mg DAILY PO 07/14/16 09:00 08/13/16 08:59 07/22/16 08:06 Clonidine HCl (Catapres) 0.1 mg Q8H PRN PO withdrawal symptoms 07/22/16 15:45 08/21/16 15:44 UNV Dextrose (Dextrose 50%) 25 ml ASDIRECTED PRN IV SEE LABEL COMMENTS 07/13/16 22:00 08/12/16 21:59 Diclofenac Epolamine (Flector 1.3%) 1 patch Q12H TOP 07/21/16 21:00 08/20/16 20:59 07/22/16 08:08 Glucagon (Glucagon) 1 mg ASDIRECTED PRN SC SEE LABEL COMMENTS 07/13/16 22:00 08/12/16 21:59 Glucose (Glucose) 16 GM ASDIRECTED PRN PO SEE LABEL COMMENTS 07/13/16 22:00 08/12/16 21:59 [facility] 21:00 08/12/16 20:59 07/21/16 20:28 Insulin [facility] ([facility]) [facility] [place] [place] [facility]/14/[facility] 09:00 08/13/16 08:59 07/22/16 08:06 Insulin Detemir (Levemir Insulin) 50 units BID SC 07/13/16 21:00 07/13/16 23:16 DC Insulin Detemir (Levemir Insulin) 50 units BID SC 07/14/16 09:00 07/14/16 09:00 DC Insulin Human Lispro (HumaLOG INSULIN) See Protocol Table [facility] 07/14/16 07:30 08/13/16 07:29 07/22/16 11:37 Insulin Human Lispro (HumaLOG INSULIN) [facility] 07/13/16 21:00 08/12/16 20:59 07/21/16 20:27 Insulin Human Lispro (HumaLOG INSULIN) [facility] 07/14/16 21:00 07/14/16 21:00 DC Lisinopril (Prinivil) 10 mg DAILY PO 07/14/16 09:00 08/13/16 08:59 07/22/16 08:07 Magnesium Hydroxide (Milk Of Magnesia) 30 ml DAILYPRN PRN PO CONSTIPATION 07/13/16 22:00 08/12/16 21:59 07/21/16 09:32 Menthol/Methyl Salicylate (Bengay Cream) apply to low back as needed BID PRN TOP PAIN 07/21/16 15:15 08/20/16 15:14 Non-Formulary Medication ( See Comment Field Below ) SEE COMMENTS SECTION 1T@10 XX 07/23/16 10:00 07/23/16 10:00 DC Non-Formulary Medication ( See Comment Field Below ) SEE LABEL COMMENTS DAILY XX 07/21/16 09:00 08/20/16 08:59 Omeprazole (PriLOSEC) 20 mg DAILY PO 07/14/16 09:00 08/13/16 08:59 07/22/16 08:06 Oxycodone HCl (OxyCONTIN) 10 mg BID PO 07/27/16 09:00 08/02/16 22:00 Oxycodone HCl (OxyCONTIN) 15 mg BID PO 07/13/16 21:00 07/22/16 09:26 DC 07/22/16 08:07 Oxycodone HCl (OxyCONTIN) 15 mg BID PO 07/26/16 22:00 07/26/16 22:00 DC Oxycodone HCl (OxyCONTIN) 15 mg BID PO 07/22/16 21:00 07/26/16 22:00 Oxycodone HCl (Roxicodone, Oxyir) 15 mg BID PO 07/13/16 21:00 07/13/16 23:16 DC Pregabalin (Lyrica) 25 mg BID PO 07/14/16 09:00 07/21/16 08:59 UNV Pregabalin (Lyrica) 225 mg BID PO 07/13/16 21:00 07/27/16 20:59 07/22/16 08:06 Tamsulosin HCl (Flomax) 0.4 mg DAILY PO 07/14/16 09:00 08/13/16 08:59 07/22/16 08:06 Tamsulosin HCl (Flomax) 0.4 mg QHS PO 07/14/16 21:00 07/14/16 21:00 DC Trazodone HCl (Desyrel) 25 mg QHSP PRN PO INSOMNIA 07/13/16 22:30 07/18/16 17:37 DC 07/17/16 20:04 Trazodone HCl (Desyrel) 50 mg QHSP PRN PO INSOMNIA 07/13/16 22:00 07/13/16 22:20 DC Trazodone HCl (Desyrel) 50 mg QHSP PRN PO INSOMNIA 07/18/16 17:45 08/17/16 17:44 07/21/16 20:25 Vitamin D (Vitamin D) 1,000 units DAILY PO 07/14/16 09:00 08/13/16 08:59 07/22/16 08:06 Allergies Coded Allergies: Diazepam (Verified Allergy, Unknown, 11/01/13) TAPE (Verified Allergy, Unknown, 12/02/13) Midazolam (Verified Adverse Reaction, Intermediate, "GO CRAZY", 02/15/13) Peggy Avina Jul 22, 2016 16:12
[2016-07-22] MEDS: ATORVASTATIN 10 MG TAB PO SCH (20:05)
[2016-07-22] MEDS: traZODone 50 MG TAB PO PRN (20:05)
[2016-07-22 21:59] VITALS: BP 104/60
[2016-07-23] MEDS: HumaLOG INSULIN (NovoLOG) PER UNIT SC SCH ×4 (06:32→20:04)
[2016-07-23 06:44] VITALS: BP 144/77
[2016-07-23] MEDS: **PENDING PPD ENTRY XX SCH (08:38)
[2016-07-23] MEDS: LEVEMIR (INSULIN DETEMIR) 1 UNITS/0.01ML SC SCH ×2 (08:43→20:04)
[2016-07-23] MEDS: DICLOFENAC EPOLAMINE 1.3 % PATCH TOP SCH ×2 (08:43→20:04)
[2016-07-23] MEDS: TAMSULOSIN 0.4 MG CAP PO SCH (08:44)
[2016-07-23] MEDS: oxyCODONE 15 MG CR TAB PO SCH ×2 (08:44→20:01)
[2016-07-23] MEDS: CitaloPRAM (CeleXA) 20 MG TAB PO SCH (08:44)
[2016-07-23] MEDS: VITAMIN D 1,000 INTERNATIONAL UNITS TABLET PO SCH (08:45)
[2016-07-23] MEDS: OMEPRAZOLE 20 MG CAP PO SCH (08:45)
[2016-07-23] MEDS: PREGABALIN 75 MG CAP(LYRICA) PO SCH ×2 (08:45→20:01)
[2016-07-23] MEDS: ASPIRIN 81 MG ENTERIC TAB PO SCH (08:45)
[2016-07-23] MEDS: LISINOPRIL 10 MG TAB PO SCH (08:45)
[2016-07-23] MEDS ORDERED: PPD DOCUMENTATION ENTRY MISC XX SCH (10:00)
--- NOTE | 2016-07-23 13:04 | IPNPDOC ---
[facility] Progress Note Progress Note DATE OF SERVICE: 07/23/16 HISTORY: Core Drilling Supervisor met with patient today to assess treatment progress on inpatient unit. Patient was observed to be up out of bed, attended to ADLs, was visible on unit, and remains cooperative staff. Patient was engageable and superficially compliant with residential mortgage underwriter during assessment. Patient today denies anxiety, rates depression 2/10 which she attributes to being away from his , denies suicidal and homicidal ideation, denies audiovisual hallucinations, denies urge to engage in self-injurious behavior. Patient today reports problems with sleep, makes requests for trazodone dose increase, today attributes sleep challenges to anxiety and nighttime ruminative thinking, denies pain is primary cause of sleep problems. Patient reiterates toady that he feels that if his pain was "properly managed" he would not experience anxiety , depression, and suicidal ideation. Core Drilling Supervisor again explained to patient that given patient's history of multiple suicide attempts and most recent suicide attempt in direct response to not feeling his pain is adequately managed, should patient not be able to comply with recommendations from pain management consult, discharge planning options would be limited in effort to keep patient safe. Patient expresses agreement and willingness to participate in longer term treatment, today informs residential mortgage underwriter he is not interested in substance abuse treatment, notes he is willing to attend outpatient substance abuse treatment but not inpatient. Per record, however, patient has expressed to other providers that he does not agree with referral to longer term treatment. Addendum: On 07/22/16 residential mortgage underwriter contacted Mignon Phelan from pain management clinic to seek clarification on oxycodone taper. Ms. Phelan provided clarification, taper orders have been instituted, and patient has been apprised of taper schedule; verbalizes understanding and agreement. VITAL SIGNS: See below. NEW TEST RESULTS: Glucose 239, 217, PA is monitoring. MRI lumbar spine 07/04/16 results indicate facet joint hypertrophy atL4-L5-S! Resulting in moderate bilateral foraminal stenosis. Relevant medical history: COPD, Diabetes mellitus type 2, hepatitis C, DJD, Dupuytren's contractures of hands and feet, CVA 2 in 2008 (no residual effects) , Adjustment disorder with mixed anxiety/depression, Depression with prior suicidal attempts, Alcohol abuse, Grade 1 diastolic CHF. Pain management consult completed, results in EMR, taper recommended CURRENT MEDICATIONS: See below. MENTAL STATUS EXAMINATION: Patient is a 55-year-old male, calm and superficially cooperative, states he is in agreement with pain medication taper so that he can be discharged and work with the neurosurgeon to discuss options for surgery to back to relieve pain. Patient appears stated age, ambulates with cane, and appears to be in no acute distress Speech: Is normal rate, rhythm, volume, coherent . Thought processes: Linear and Goal directed. Rate of thoughts: Within normal limits. Thought content: Rational when discussing discharge desires, becomes irrational when attempting to justify recent suicide attempt and alcohol use in response to not being prescribed pain medication the way he feels it should be prescribed Abstract reasoning: Appears intact Associations: No tangentiality noted today, appears intact Abnormal or psychotic thoughts: No perceptual issues reported or noted Judgment: Limited Insight: Limited Oriented to: Time, place and person. Recent and Remote Memory: Immediate, short-term and long-term memory is intact. Attention Span and Concentration: Adequate Fund of knowledge: Adequate Mood: "I feel fine except for my sleep and pain." Appears calm, no lability noted Affect: Full range, brightens frequently, superficial DIAGNOSES: Major depressive disorder, recurrent, severe, Rule out personality disorder (cluster B), Alcohol use disorder, Chronic pain disorder. ASSESSMENT: Patient continues to adjust to unit, has been visible and attending groups, engaging selectively with staff and peers. Patient continues to minimize events which led to his current hospitalization, rationalizes recent suicide attempt and continues to minimize alcohol use. Patient willingly met with residential mortgage underwriter today and indicates he is agreeable to recommendations made by pain database management specialist. Patient verbalizes awareness that he continues to be evaluated for need for long-term care treatment, states today he is not in agreement with going to inpatient substance abuse treatment but notes he is willing to participate on an outpatient basis. Patient reminds residential mortgage underwriter today that he has an fiscal manager who will represent him at time of court to ensure his rights are protected for discharge planning purposes and reiterates he feels he would have no behavioral health challenges if his pain was adequately addressed. Patient indicates current medication regimen of Celexa 20 mg po daily remains effective, states Trazodone 50 mg hs for sleep is only partially effective, is complaining of nighttime waking due to anxiety/ruminative thinking and pain. Patient states today he has taken sleep medication as instructed by residential mortgage underwriter and medication still remains only partially effective for sleep, is requesting dose increase at this time. Patient's report of sleep maintenance challenges are supported by EMR entry, will adjust dosing and monitor patient's response. Patient denies medication side effects. Will continue to monitor patient's response to pain medication taper. Patient indicates his discharge plan continues to be returning to home with with follow up outpatient treatment. MANAGEMENT PLAN: Continue Celexa 20 mg po q day. Increase trazodone to 75 mg po hs PRN insomnia PA has requested pain management consult - completed, taper has been instituted Maintain safety precautions Patient to attend groups and participate in unit programming to develop coping strategies Engage patient in discharge planning process and arrange meeting with support system to ensure safe discharge planning when appropriate, encourage long-term care/inpatient substance abuse treatment Coordinate discharge with chief engineer production, Jessica Rodriugez, of [facility], and with previous psychotherapy and medication management provider [facility] Patient to follow up with PCM upon discharge TIME SPENT: 35 minutes Vital Signs Vital Signs Date Time Temp Pulse Resp B/P Pulse Ox O2 Delivery O2 Flow Rate FiO2 07/23/16 08:45 130/72 07/23/16 08:44 16 07/23/16 06:44 92.8 66 07/18/16 08:05 Room Air Laboratory Data 24H Labs Laboratory Tests 2 07/22/16 17:24: Bedside Glucose (Misc Panel) 352H 07/22/16 20:00: Bedside Glucose (Misc Panel) 279H 07/23/16 06:08: Bedside Glucose (Misc Panel) 272H 07/23/16 12:01: Bedside Glucose (Misc Panel) 212H Current Medications Current Medications Acetaminophen (Tylenol Tab) 650 mg Q6HP PRN PO HEADACHE or DISCOMFORT; Start at 22:00; Stop 08/12/16 at 21:59 Al Hydrox/Mg Hydrox/Simethicone (Mylanta) 30 ml Q4HP PRN PO HEARTBURN/ INDIGESTION; Start 07/13/16 at 22:00; Stop 08/12/16 at 21:59 Aspirin (Ecotrin) 81 mg DAILY PO Last administered on 07/23/16 08:45; Start at 09:00; Stop 08/13/16 at 08:59 Atorvastatin Calcium (Lipitor) 10 mg QHS PO Last administered on 07/22/16 20:05 ; Start 07/13/16 at 21:00; Stop 08/12/16 at 20:59 Citalopram Hydrobromide (CeleXA) 20 mg DAILY PO Last administered on 07/23/16 08:44; Start 07/14/16 at 09:00; Stop 08/13/16 at 08:59 Clonidine HCl (Catapres) 0.1 mg Q8H PRN PO withdrawal symptoms; Start 07/22/16 at 15:45; Stop 08/21/16 at 15:44 Dextrose (Dextrose 50%) 25 ml ASDIRECTED PRN IV SEE LABEL COMMENTS; Start 07/13 at 22:00; Stop 08/12/16 at 21:59 Diclofenac Epolamine (Flector 1.3%) 1 patch Q12H TOP Last administered on 08:43; Start 07/21/16 at 21:00; Stop 08/20/16 at 20:59 Glucagon (Glucagon) 1 mg ASDIRECTED PRN SC SEE LABEL COMMENTS; Start 07/13/16 at 22:00; Stop 08/12/16 at 21:59 Glucose (Glucose) 16 GM ASDIRECTED PRN PO SEE LABEL COMMENTS; Start 07/13/16 at 22:00; Stop 08/12/16 at 21:59 Insulin Detemir (Levemir Insulin) 10 units QHS SC Last administered on 20:08; Start 07/13/16 at 21:00; Stop 08/12/16 at 20:59 Insulin Detemir (Levemir Insulin) 20 units QAM SC Last administered on 08:43; Start 07/14/16 at 09:00; Stop 08/13/16 at 08:59 Insulin Detemir (Levemir Insulin) 50 units BID SC ; Start 07/13/16 at 21:00; Stop 07/13/16 at 23:16; Status DC Insulin Detemir (Levemir Insulin) 50 units BID SC ; Start 07/14/16 at 09:00; Stop 07/14/16 at 09:00; Status DC Insulin Human Lispro (HumaLOG INSULIN) See Protocol Table AC SC Last administered on 07/23/16 12:04; Start 07/14/16 at 07:30; Stop 08/13/16 at 07:29 Insulin Human Lispro (HumaLOG INSULIN) See Protocol Table QHS SC Last administered on 07/22/16 20:07; Start 07/13/16 at 21:00; Stop 08/12/16 at 20:59 Insulin Human Lispro (HumaLOG INSULIN) See Protocol Table QHS SC ; Start at 21:00; Stop 07/14/16 at 21:00; Status DC Lisinopril (Prinivil) 10 mg DAILY PO Last administered on 07/23/16 08:45; Start 07/14/16 at 09:00; Stop 08/13/16 at 08:59 Magnesium Hydroxide (Milk Of Magnesia) 30 ml DAILYPRN PRN PO CONSTIPATION Last administered on 07/21/16 09:32; Start 07/13/16 at 22:00; Stop 08/12/16 at 21:59 Menthol/Methyl Salicylate (Bengay Cream) apply to low back as needed BID PRN TOP PAIN; Start 07/21/16 at 15:15; Stop 08/20/16 at 15:14 Non-Formulary Medication ( See Comment Field Below ) SEE COMMENTS SECTION 1T @10 XX ; Start 07/23/16 at 10:00; Stop 07/23/16 at 10:00; Status DC Non-Formulary Medication ( See Comment Field Below ) SEE LABEL COMMENTS DAILY XX ; Start 07/21/16 at 09:00; Stop 08/20/16 at 08:59 Omeprazole (PriLOSEC) 20 mg DAILY PO Last administered on 07/23/16 08:45; Start 07/14/16 at 09:00; Stop 08/13/16 at 08:59 Oxycodone HCl (OxyCONTIN) 10 mg BID PO ; Start 07/27/16 at 09:00; Stop 08/02/16 at 22:00 Oxycodone HCl (OxyCONTIN) 15 mg BID PO Last administered on 07/22/16 08:07; Start 07/13/16 at 21:00; Stop 07/22/16 at 09:26; Status DC Oxycodone HCl (OxyCONTIN) 15 mg BID PO ; Start 07/26/16 at 22:00; Stop 07/26/16 at 22:00; Status DC Oxycodone HCl (OxyCONTIN) 15 mg BID PO Last administered on 07/23/16 08:44; Start 07/22/16 at 21:00; Stop 07/26/16 at 22:00 Oxycodone HCl (Roxicodone, Oxyir) 15 mg BID PO ; Start 07/13/16 at 21:00; Stop 07/13/16 at 23:16; Status DC Pregabalin (Lyrica) 25 mg BID PO ; Start 07/14/16 at 09:00; Stop 07/21/16 at 08: 59; Status UNV Pregabalin (Lyrica) 225 mg BID PO Last administered on 07/23/16 08:45; Start at 21:00; Stop 07/27/16 at 20:59 Tamsulosin HCl (Flomax) 0.4 mg DAILY PO Last administered on 07/23/16 08:44; Start 07/14/16 at 09:00; Stop 08/13/16 at 08:59 Tamsulosin HCl (Flomax) 0.4 mg QHS PO ; Start 07/14/16 at 21:00; Stop 07/14/16 at 21:00; Status DC Trazodone HCl (Desyrel) 25 mg QHSP PRN PO INSOMNIA Last administered on 20:04; Start 07/13/16 at 22:30; Stop 07/18/16 at 17:37; Status DC Trazodone HCl (Desyrel) 50 mg QHSP PRN PO INSOMNIA; Start 07/13/16 at 22:00; Stop 07/13/16 at 22:20; Status DC Trazodone HCl (Desyrel) 50 mg QHSP PRN PO INSOMNIA Last administered on 20:05; Start 07/18/16 at 17:45; Stop 08/17/16 at 17:44 Vitamin D (Vitamin D) 1,000 units DAILY PO Last administered on 07/23/16 08:45 ; Start 07/14/16 at 09:00; Stop 08/13/16 at 08:59 Allergies Coded Allergies: Diazepam (Verified Allergy, Unknown, 11/01/13) TAPE (Verified Allergy, Unknown, 12/02/13) Midazolam (Verified Adverse Reaction, Intermediate, "GO CRAZY", 9/3/13) Peggy Avina Jul 23, 2016 13:04
[2016-07-23] MEDS ORDERED: traZODone 50 MG TAB PO PRN (13:15)
[2016-07-23] MEDS: MOM 30ML SUSPENSION UDC PO PRN (16:24)
[2016-07-23 18:20] VITALS: BP 116/82
[2016-07-23] MEDS: traZODone 100 MG TAB PO PRN (20:01)
[2016-07-23] MEDS: ATORVASTATIN 10 MG TAB PO SCH (20:01)
[2016-07-24] MEDS: HumaLOG INSULIN (NovoLOG) PER UNIT SC SCH ×4 (06:54→20:23)
[2016-07-24 07:13] VITALS: BP 117/76
[2016-07-24] MEDS: OMEPRAZOLE 20 MG CAP PO SCH (08:14)
[2016-07-24] MEDS: CitaloPRAM (CeleXA) 20 MG TAB PO SCH (08:14)
[2016-07-24] MEDS: LISINOPRIL 10 MG TAB PO SCH (08:14)
[2016-07-24] MEDS: LEVEMIR (INSULIN DETEMIR) 1 UNITS/0.01ML SC SCH ×2 (08:14→20:23)
[2016-07-24] MEDS: ASPIRIN 81 MG ENTERIC TAB PO SCH (08:14)
[2016-07-24] MEDS: TAMSULOSIN 0.4 MG CAP PO SCH (08:15)
[2016-07-24] MEDS: oxyCODONE 15 MG CR TAB PO SCH ×2 (08:15→20:07)
[2016-07-24] MEDS: VITAMIN D 1,000 INTERNATIONAL UNITS TABLET PO SCH (08:15)
[2016-07-24] MEDS: PREGABALIN 75 MG CAP(LYRICA) PO SCH ×2 (08:15→20:06)
[2016-07-24] MEDS: **PENDING PPD ENTRY XX SCH (08:17)
[2016-07-24] MEDS: DICLOFENAC EPOLAMINE 1.3 % PATCH TOP SCH ×2 (09:34→21:00)
[2016-07-24] MEDS ORDERED: ONDANSETRON 4 MG TAB (S0181) PO PRN (11:30)
--- NOTE | 2016-07-24 16:50 | IPNPDOC ---
[facility] Progress Note Progress Note DATE OF SERVICE: 07/24/16 HISTORY: Pickling Operator met with patient today to assess treatment progress on inpatient unit. Patient was observed to be up out of bed, attended to ADLs, was visible on unit, and remains cooperative staff. Patient remains engageable and is superficially compliant with business writer during assessment. Patient today reports low level anxiety, denies depression, denies suicidal and homicidal ideation, denies audiovisual hallucinations, denies urge to engage in self-injurious behavior. Patient today reports sleep is "better" except as related to pain, indicates recent trazodone dose increase is helpful. Patient reiterates today that he feels that if his pain was "properly managed" he would not experience anxiety, depression, and suicidal ideation. Pickling Operator again discussed this with patient that patient's history of multiple suicide attempts and most recent suicide attempt in direct response to not feeling his pain is adequately managed , should patient not be able to comply with recommendations from pain management consult, discharge planning options will remain limited in effort to ensure patient safety. Patient expresses agreement and willingness to participate in longer term treatment, iterates today he is not willing to participate in inpatient substance abuse treatment, notes he is willing to attend outpatient substance abuse treatment. Patient assures business writer that he will be compliant with recommendations or treatment and discharge planning, however, patient has expressed to other providers that he does not agree with referral to longer term treatment. Addendum: On 07/22/16 business writer contacted Mignon Phelan from pain management clinic to seek clarification on oxycodone taper. Ms. Phelan provided clarification, taper orders have been instituted, and patient has been apprised of taper schedule; verbalizes understanding and agreement. Patient has begun participating in PT. VITAL SIGNS: See below. NEW TEST RESULTS: Glucose 281, 239, PA is monitoring. MRI lumbar spine 07/04/16 results indicate facet joint hypertrophy atL4-L5-S! Resulting in moderate bilateral foraminal stenosis. Relevant medical history: COPD, Diabetes mellitus type 2, hepatitis C, DJD, Dupuytren's contractures of hands and feet, CVA 2 in 2008 (no residual effects) , Adjustment disorder with mixed anxiety/depression, Depression with prior suicidal attempts, Alcohol abuse, Grade 1 diastolic CHF. Pain management consult completed, results in EMR, taper recommended Patient requested the PA change his diabetic diet to regular diet CURRENT MEDICATIONS: See below. MENTAL STATUS EXAMINATION: Patient is a 55-year-old male, calm and superficially cooperative, states he is in agreement with pain medication taper so that he can be discharged and work with the neurosurgeon to discuss options for surgery to back to relieve pain. Patient appears stated age, ambulates with and without cane today, and appears to be in no acute distress Speech: Is normal rate, rhythm, volume, coherent . Thought processes: Linear and Goal directed. Rate of thoughts: Within normal limits. Thought content: Rational when discussing discharge desires, becomes irrational when attempting to justify recent suicide attempt and alcohol use in response to not being prescribed pain medication the way he feels it should be prescribed Abstract reasoning: Appears intact Associations: No tangentiality noted today, appears intact Abnormal or psychotic thoughts: No perceptual issues reported or noted Judgment: Limited Insight: Limited Oriented to: Time, place and person. Recent and Remote Memory: Immediate, short-term and long-term memory is intact. Attention Span and Concentration: Adequate Fund of knowledge: Adequate Mood: "I feel pretty good except for my pain." Appears calm, no lability noted Affect: Full range, brightens frequently, superficial DIAGNOSES: Major depressive disorder, recurrent, severe, Rule out personality disorder (cluster B), Alcohol use disorder, Chronic pain disorder. ASSESSMENT: Patient continues to adjust to unit, has been visible and attending groups, engaging selectively with staff and peers. Patient continues to minimize events which led to his current hospitalization, rationalizes recent suicide attempt and continues to minimize alcohol use. Patient willingly met with business writer today and indicates he remains agreeable to recommendations made by pain program management professional. Patient verbalizes awareness that he continues to be evaluated for need for long-term care treatment, states today he is not in agreement with going to inpatient substance abuse treatment but notes he is willing to participate on an outpatient basis. Patient reminds business writer today that he has an employee benefits attorney who will represent him at time of court to ensure his rights are protected for discharge planning purposes and reiterates he feels he would have no behavioral health challenges if his pain was adequately addressed. Patient indicates current medication regimen of Celexa 20 mg po daily remains effective, states Trazodone 75 mg hs for sleep is "better," states any residual sleep challenges are related to pain. Patient denies medication side effects. Will continue to monitor patient's response to pain medication taper and psychotropic medications. Patient denies suicidal and homicidal ideation and verbalizes awareness of how to access supportive services on unit if needed. Patient indicates his discharge plan continues to be returning to home with with follow up outpatient treatment. MANAGEMENT PLAN: Continue Celexa 20 mg po q day. Continue trazodone 75 mg po hs PRN insomnia PA has requested pain management consult - completed, taper has been instituted Maintain safety precautions Patient to attend groups and participate in unit programming to develop coping strategies Engage patient in discharge planning process and arrange meeting with support system to ensure safe discharge planning when appropriate, encourage long-term care/inpatient substance abuse treatment Coordinate discharge with correctional program officer, Jessica Rodriguez, of [facility], and with previous psychotherapy and medication management provider [facility] Patient to follow up with PCM upon discharge TIME SPENT: 35 minutes Vital Signs Vital Signs Date Time Temp Pulse Resp B/P Pulse Ox O2 Delivery O2 Flow Rate FiO2 07/24/16 08:15 16 07/24/16 08:14 117/76 07/24/16 07:13 95.6 90 07/18/16 08:05 Room Air Laboratory Data 24H Labs Laboratory Tests 2 07/23/16 16:53: Bedside Glucose (Misc Panel) 222H 07/23/16 19:56: Bedside Glucose (Misc Panel) 296H 07/24/16 06:48: Bedside Glucose (Misc Panel) 323H 07/24/16 11:45: Bedside Glucose (Misc Panel) 281H 07/24/16 14:33: Bedside Glucose (Misc Panel) 239H Current Medications Current Medications Acetaminophen (Tylenol Tab) 650 mg Q6HP PRN PO HEADACHE or DISCOMFORT; Start at 22:00; Stop 08/12/16 at 21:59 Al Hydrox/Mg Hydrox/Simethicone (Mylanta) 30 ml Q4HP PRN PO HEARTBURN/ INDIGESTION; Start 07/13/16 at 22:00; Stop 08/12/16 at 21:59 Aspirin (Ecotrin) 81 mg DAILY PO Last administered on 07/24/16 08:14; Start at 09:00; Stop 08/13/16 at 08:59 Atorvastatin Calcium (Lipitor) 10 mg QHS PO Last administered on 07/23/16 20:01 ; Start 07/13/16 at 21:00; Stop 08/12/16 at 20:59 Citalopram Hydrobromide (CeleXA) 20 mg DAILY PO Last administered on 07/24/16 08:14; Start 07/14/16 at 09:00; Stop 08/13/16 at 08:59 Clonidine HCl (Catapres) 0.1 mg Q8H PRN PO withdrawal symptoms; Start 07/22/16 at 15:45; Stop 08/21/16 at 15:44 Dextrose (Dextrose 50%) 25 ml ASDIRECTED PRN IV SEE LABEL COMMENTS; Start 07/13 at 22:00; Stop 08/12/16 at 21:59 Diclofenac Epolamine (Flector 1.3%) 1 patch Q12H TOP Last administered on 09:34; Start 07/21/16 at 21:00; Stop 08/20/16 at 20:59 Glucagon (Glucagon) 1 mg ASDIRECTED PRN SC SEE LABEL COMMENTS; Start 07/13/16 at 22:00; Stop 08/12/16 at 21:59 Glucose (Glucose) 16 GM ASDIRECTED PRN PO SEE LABEL COMMENTS; Start 07/13/16 at 22:00; Stop 08/12/16 at 21:59 Insulin Detemir (Levemir Insulin) 10 units QHS SC Last administered on 20:04; Start 07/13/16 at 21:00; Stop 08/12/16 at 20:59 Insulin Detemir (Levemir Insulin) 20 units QAM SC Last administered on 08:14; Start 07/14/16 at 09:00; Stop 08/13/16 at 08:59 Insulin Detemir (Levemir Insulin) 50 units BID SC ; Start 07/13/16 at 21:00; Stop 07/13/16 at 23:16; Status DC Insulin Detemir (Levemir Insulin) 50 units BID SC ; Start 07/14/16 at 09:00; Stop 07/14/16 at 09:00; Status DC Insulin Human Lispro (HumaLOG INSULIN) See Protocol Table AC SC Last administered on 07/24/16 12:45; Start 07/14/16 at 07:30; Stop 08/13/16 at 07:29 Insulin Human Lispro (HumaLOG INSULIN) See Protocol Table QHS SC Last administered on 07/23/16 20:04; Start 07/13/16 at 21:00; Stop 08/12/16 at 20:59 Insulin Human Lispro (HumaLOG INSULIN) See Protocol Table QHS SC ; Start at 21:00; Stop 07/14/16 at 21:00; Status DC Lisinopril (Prinivil) 10 mg DAILY PO Last administered on 07/24/16 08:14; Start 07/14/16 at 09:00; Stop 08/13/16 at 08:59 Magnesium Hydroxide (Milk Of Magnesia) 30 ml DAILYPRN PRN PO CONSTIPATION Last administered on 07/23/16 16:24; Start 07/13/16 at 22:00; Stop 08/12/16 at 21:59 Menthol/Methyl Salicylate (Bengay Cream) apply to low back as needed BID PRN TOP PAIN; Start 07/21/16 at 15:15; Stop 08/20/16 at 15:14 Non-Formulary Medication ( See Comment Field Below ) SEE COMMENTS SECTION 1T @10 XX ; Start 07/23/16 at 10:00; Stop 07/23/16 at 10:00; Status DC Non-Formulary Medication ( See Comment Field Below ) SEE LABEL COMMENTS DAILY XX ; Start 07/21/16 at 09:00; Stop 08/20/16 at 08:59 Omeprazole (PriLOSEC) 20 mg DAILY PO Last administered on 07/24/16 08:14; Start 07/14/16 at 09:00; Stop 08/13/16 at 08:59 Ondansetron HCl (Zofran) 4 mg Q8HP PRN PO NAUSEA OR VOMITING; Start 07/24/16 at 11:30; Stop 08/23/16 at 11:29 Oxycodone HCl (OxyCONTIN) 10 mg BID PO ; Start 07/27/16 at 09:00; Stop 08/02/16 at 22:00 Oxycodone HCl (OxyCONTIN) 15 mg BID PO Last administered on 07/22/16 08:07; Start 07/13/16 at 21:00; Stop 07/22/16 at 09:26; Status DC Oxycodone HCl (OxyCONTIN) 15 mg BID PO ; Start 07/26/16 at 22:00; Stop 07/26/16 at 22:00; Status DC Oxycodone HCl (OxyCONTIN) 15 mg BID PO Last administered on 07/24/16 08:15; Start 07/22/16 at 21:00; Stop 07/26/16 at 22:00 Oxycodone HCl (Roxicodone, Oxyir) 15 mg BID PO ; Start 07/13/16 at 21:00; Stop 07/13/16 at 23:16; Status DC Pregabalin (Lyrica) 25 mg BID PO ; Start 07/14/16 at 09:00; Stop 07/21/16 at 08: 59; Status UNV Pregabalin (Lyrica) 225 mg BID PO Last administered on 07/24/16 08:15; Start at 21:00; Stop 07/27/16 at 20:59 Tamsulosin HCl (Flomax) 0.4 mg DAILY PO Last administered on 07/24/16 08:15; Start 07/14/16 at 09:00; Stop 08/13/16 at 08:59 Tamsulosin HCl (Flomax) 0.4 mg QHS PO ; Start 07/14/16 at 21:00; Stop 07/14/16 at 21:00; Status DC Trazodone HCl (Desyrel) 25 mg QHSP PRN PO INSOMNIA Last administered on 20:04; Start 07/13/16 at 22:30; Stop 07/18/16 at 17:37; Status DC Trazodone HCl (Desyrel) 50 mg QHSP PRN PO INSOMNIA; Start 07/13/16 at 22:00; Stop 07/13/16 at 22:20; Status DC Trazodone HCl (Desyrel) 50 mg QHSP PRN PO INSOMNIA Last administered on 20:05; Start 07/18/16 at 17:45; Stop 07/23/16 at 13:05; Status DC Trazodone HCl (Desyrel) 75 mg QHSP PRN PO INSOMNIA; Start 07/23/16 at 13:15; Stop 07/23/16 at 16:27; Status DC Trazodone HCl (Desyrel) 100 mg QHSP PRN PO INSOMNIA Last administered on 20:01; Start 07/23/16 at 16:30; Stop 08/22/16 at 16:29 Vitamin D (Vitamin D) 1,000 units DAILY PO Last administered on 07/24/16 08:15 ; Start 07/14/16 at 09:00; Stop 08/13/16 at 08:59 Allergies Coded Allergies: Diazepam (Verified Allergy, Unknown, 11/01/13) TAPE (Verified Allergy, Unknown, 12/02/13) Midazolam (Verified Adverse Reaction, Intermediate, "GO CRAZY", 02/15/13) Peggy Avina Jul 24, 2016 16:50
[2016-07-24 18:00] VITALS: BP 108/70
[2016-07-24] MEDS: cloNIDine 0.1 MG TAB PO PRN (20:06)
[2016-07-24] MEDS: ATORVASTATIN 10 MG TAB PO SCH (20:06)
[2016-07-24] MEDS: traZODone 100 MG TAB PO PRN (20:06)
[2016-07-25 06:39] VITALS: BP 112/70
[2016-07-25] MEDS: HumaLOG INSULIN (NovoLOG) PER UNIT SC SCH ×4 (07:05→20:36)
[2016-07-25] MEDS: LEVEMIR (INSULIN DETEMIR) 1 UNITS/0.01ML SC SCH ×2 (08:29→20:36)
[2016-07-25] MEDS: PREGABALIN 75 MG CAP(LYRICA) PO SCH ×2 (08:29→20:35)
[2016-07-25] MEDS: TAMSULOSIN 0.4 MG CAP PO SCH (08:29)
[2016-07-25] MEDS: oxyCODONE 15 MG CR TAB PO SCH ×2 (08:29→20:37)
[2016-07-25] MEDS: CitaloPRAM (CeleXA) 20 MG TAB PO SCH (08:31)
[2016-07-25] MEDS: OMEPRAZOLE 20 MG CAP PO SCH (08:31)
[2016-07-25] MEDS: VITAMIN D 1,000 INTERNATIONAL UNITS TABLET PO SCH (08:31)
[2016-07-25] MEDS: ASPIRIN 81 MG ENTERIC TAB PO SCH (08:31)
[2016-07-25] MEDS: DICLOFENAC EPOLAMINE 1.3 % PATCH TOP SCH ×2 (08:32→20:36)
[2016-07-25] MEDS: LISINOPRIL 10 MG TAB PO SCH (08:33)
[2016-07-25] MEDS: **PENDING PPD ENTRY XX SCH (08:34)
--- NOTE | 2016-07-25 09:26 | IPNPDOC ---
[facility] Progress Note Progress Note DATE OF SERVICE: 07/25/16 HISTORY: Reclamation Kettle Tender met with patient today to assess treatment progress on inpatient unit. Patient was observed to be up out of bed, visible in lounge, attended to ADLs, remains cooperative staff. Patient remains engageable and is superficially compliant with typewriters functional tester during assessment. Patient today reports low level anxiety, denies depression, denies suicidal and homicidal ideation, denies audiovisual hallucinations, denies urge to engage in self-injurious behavior. Patient indicates sleep has improved but indicates nighttime pain remains a challenge, denies nightmares. Patient reiterates today that he feels that if his pain was "controlled" he would not experience anxiety, depression, and suicidal ideation. Reclamation Kettle Tender again discussed patient's history of multiple suicide attempts and most recent suicide attempt in direct response to not feeling his pain is adequately managed, strongly encouraged patient to attend inpatient addiction treatment; patient declined. Reclamation Kettle Tender also expressed concerns of patient's alcohol consumption combined with pain medication. Patient verbalized understanding of typewriters functional tester's concerns and indicates he feels prepared to discuss in administrative hearing today, expresses agreement and willingness to participate in longer term treatment, adds he is willing to attend outpatient substance abuse treatment. Patient stated Celexa and trazodone are made effective for addressing symptoms of depression and sleep challenges, took clonidine 0.1 mg X 1 yesterday to address symptoms of withdrawal. Patient denies medication side effects. Late Entry: Administrative hearing held date of entry with transfer to longer term facility to proceed. After making contact with Dr. Leiva's office, mortgage loan coordinator informed typewriters functional tester that Dr. Leiva will not be prescribing pain medication, nor is there a neurosurgeon appointment scheduled for 08/07/16 as reported by patient. The patient does, however, have an appointment scheduled with Dr. Leiva's office on 08/04/16. Dr. Leiva's office in the past had recommended pain medication taper due to patient's liver problems with use of nonnarcotics to address pain. Dr. Leiva's office declined to comment on safety/appropriateness of speeding up pain medication taper, per patient request. Email sent date of entry to pain management internship, Mignon Phelan, requesting feedback on appropriateness of expedited pain medication taper and requesting new taper details if expedited taper is deemed appropriate. Addendum: On 07/22/16 typewriters functional tester contacted Mignon Phelan from pain management clinic to seek clarification on oxycodone taper. Ms. Phelan provided clarification, taper orders have been instituted, and patient has been apprised of taper schedule; verbalizes understanding and agreement. Patient has begun participating in PT. VITAL SIGNS: See below. NEW TEST RESULTS: Glucose 306, PA is monitoring. MRI lumbar spine 07/04/16 results indicate facet joint hypertrophy atL4-L5-S! Resulting in moderate bilateral foraminal stenosis. Relevant medical history: COPD, Diabetes mellitus type 2, hepatitis C, DJD, Dupuytren's contractures of hands and feet, CVA 2 in 2008 (no residual effects) , Adjustment disorder with mixed anxiety/depression, Depression with prior suicidal attempts, Alcohol abuse, Grade 1 diastolic CHF. Pain management consult completed, results in EMR, taper recommended Patient requested the PA change his diabetic diet to regular diet CURRENT MEDICATIONS: See below. MENTAL STATUS EXAMINATION: Patient is a 55-year-old male, calm and superficially cooperative, states he is in agreement with pain medication taper so that he can be discharged and work with the neurosurgeon to discuss options for surgery to back to relieve pain. Patient appears stated age, ambulates with and without cane today, and appears to be in no acute distress Speech: Is normal rate, rhythm, volume, coherent . Thought processes: Linear and Goal directed. Rate of thoughts: Within normal limits. Thought content: Rational when discussing discharge desires, becomes irrational when attempting to justify recent suicide attempt and alcohol use in response to not being prescribed pain medication the way he feels it should be prescribed Abstract reasoning: Appears intact Associations: No tangentiality noted today, appears intact Abnormal or psychotic thoughts: No perceptual issues reported or noted Judgment: Limited Insight: Limited Oriented to: Time, place and person. Recent and Remote Memory: Immediate, short-term and long-term memory is intact. Attention Span and Concentration: Adequate Fund of knowledge: Adequate Mood: "I feel fine." Appears calm, no lability noted Affect: Full range, brightens frequently, superficial DIAGNOSES: Major depressive disorder, recurrent, severe, Rule out personality disorder (cluster B), Alcohol use disorder, Chronic pain disorder. ASSESSMENT: Patient continues to adjust to unit, has been visible and attending groups, engaging selectively with staff and peers. Patient continues to minimize events which led to his current hospitalization, rationalizes recent suicide attempt and continues to minimize alcohol use. Patient willingly met with typewriters functional tester today and indicates he remains agreeable to recommendations made by pain management internship. Patient verbalizes awareness that he continues to be evaluated for need for long-term care treatment, states today he is not in agreement with going to inpatient substance abuse treatment but notes he is willing to participate on an outpatient basis. Patient reminds typewriters functional tester today that he has an archives director who will represent him at administrative hearing to ensure his rights are protected for discharge planning purposes and reiterates he feels he would have no behavioral health challenges if his pain was adequately addressed. Patient indicates current medication regimen of Celexa 20 mg po q day and Trazodone 75 mg po q hs are effective, prior to today has indicated sleep challenges are related to pain. Patient denies medication side effects. Will continue to monitor patient's response to pain medication taper and psychotropic medications. Patient denies suicidal and homicidal ideation and verbalizes awareness of how to access supportive services on unit if needed. Patient indicates his discharge plan continues to be returning to home with with follow up outpatient treatment. MANAGEMENT PLAN: Continue Celexa 20 mg po q day. Continue trazodone 75 mg po hs PRN insomnia PA has requested pain management consult - completed, taper has been instituted Maintain safety precautions Patient to attend groups and participate in unit programming to develop coping strategies Engage patient in discharge planning process and arrange meeting with support system to ensure safe discharge planning when appropriate, encourage long-term care/inpatient substance abuse treatment Coordinate discharge with field technical specialist, Jessica Rodriguez, of [facility], and with previous psychotherapy and medication management provider [facility] Patient to follow up with PCM upon discharge TIME SPENT: 35 minutes Vital Signs Vital Signs Date Time Temp Pulse Resp B/P Pulse Ox O2 Delivery O2 Flow Rate FiO2 07/25/16 08:33 93/58 07/25/16 08:29 18 07/25/16 06:39 96.5 126 07/24/16 20:30 95 Room Air Laboratory Data 24H Labs Laboratory Tests 2 07/24/16 11:45: Bedside Glucose (Misc Panel) 281H 07/24/16 14:33: Bedside Glucose (Misc Panel) 239H 07/24/16 17:02: Bedside Glucose (Misc Panel) 245H 07/24/16 19:59: Bedside Glucose (Misc Panel) 263H 07/25/16 06:39: Bedside Glucose (Misc Panel) 306H Current Medications Current Medications Acetaminophen (Tylenol Tab) 650 mg Q6HP PRN PO HEADACHE or DISCOMFORT; Start at 22:00; Stop 08/12/16 at 21:59 Al Hydrox/Mg Hydrox/Simethicone (Mylanta) 30 ml Q4HP PRN PO HEARTBURN/ INDIGESTION; Start 07/13/16 at 22:00; Stop 08/12/16 at 21:59 Aspirin (Ecotrin) 81 mg DAILY PO Last administered on 07/25/16 08:31; Start at 09:00; Stop 08/13/16 at 08:59 Atorvastatin Calcium (Lipitor) 10 mg QHS PO Last administered on 07/24/16 20:06 ; Start 07/13/16 at 21:00; Stop 08/12/16 at 20:59 Citalopram Hydrobromide (CeleXA) 20 mg DAILY PO Last administered on 07/25/16 08:31; Start 07/14/16 at 09:00; Stop 08/13/16 at 08:59 Clonidine HCl (Catapres) 0.1 mg Q8H PRN PO withdrawal symptoms Last administered on 07/24/16 20:06; Start 07/22/16 at 15:45; Stop 08/21/16 at 15:44 Dextrose (Dextrose 50%) 25 ml ASDIRECTED PRN IV SEE LABEL COMMENTS; Start 07/13 at 22:00; Stop 08/12/16 at 21:59 Diclofenac Epolamine (Flector 1.3%) 1 patch Q12H TOP Last administered on 08:32; Start 07/21/16 at 21:00; Stop 08/20/16 at 20:59 Glucagon (Glucagon) 1 mg ASDIRECTED PRN SC SEE LABEL COMMENTS; Start 07/13/16 at 22:00; Stop 08/12/16 at 21:59 Glucose (Glucose) 16 GM ASDIRECTED PRN PO SEE LABEL COMMENTS; Start 07/13/16 at 22:00; Stop 08/12/16 at 21:59 Insulin Detemir (Levemir Insulin) 10 units QHS SC Last administered on 20:23; Start 07/13/16 at 21:00; Stop 08/12/16 at 20:59 Insulin Detemir (Levemir Insulin) 20 units QAM SC Last administered on 08:29; Start 07/14/16 at 09:00; Stop 08/13/16 at 08:59 Insulin Detemir (Levemir Insulin) 50 units BID SC ; Start 07/13/16 at 21:00; Stop 07/13/16 at 23:16; Status DC Insulin Detemir (Levemir Insulin) 50 units BID SC ; Start 07/14/16 at 09:00; Stop 07/14/16 at 09:00; Status DC Insulin Human Lispro (HumaLOG INSULIN) See Protocol Table AC SC Last administered on 07/25/16 07:05; Start 07/14/16 at 07:30; Stop 08/13/16 at 07:29 Insulin Human Lispro (HumaLOG INSULIN) See Protocol Table QHS SC Last administered on 07/24/16 20:23; Start 07/13/16 at 21:00; Stop 08/12/16 at 20:59 Insulin Human Lispro (HumaLOG INSULIN) See Protocol Table QHS SC ; Start at 21:00; Stop 07/14/16 at 21:00; Status DC Lisinopril (Prinivil) 10 mg DAILY PO Last administered on 07/24/16 08:14; Start 07/14/16 at 09:00; Stop 08/13/16 at 08:59 Magnesium Hydroxide (Milk Of Magnesia) 30 ml DAILYPRN PRN PO CONSTIPATION Last administered on 07/23/16 16:24; Start 07/13/16 at 22:00; Stop 08/12/16 at 21:59 Menthol/Methyl Salicylate (Bengay Cream) apply to low back as needed BID PRN TOP PAIN; Start 07/21/16 at 15:15; Stop 08/20/16 at 15:14 Non-Formulary Medication ( See Comment Field Below ) SEE COMMENTS SECTION 1T @10 XX ; Start 07/23/16 at 10:00; Stop 07/23/16 at 10:00; Status DC Non-Formulary Medication ( See Comment Field Below ) SEE LABEL COMMENTS DAILY XX ; Start 07/21/16 at 09:00; Stop 08/20/16 at 08:59 Omeprazole (PriLOSEC) 20 mg DAILY PO Last administered on 07/25/16 08:31; Start 07/14/16 at 09:00; Stop 08/13/16 at 08:59 Ondansetron HCl (Zofran) 4 mg Q8HP PRN PO NAUSEA OR VOMITING; Start 07/24/16 at 11:30; Stop 08/23/16 at 11:29 Oxycodone HCl (OxyCONTIN) 10 mg BID PO ; Start 07/27/16 at 09:00; Stop 08/02/16 at 22:00 Oxycodone HCl (OxyCONTIN) 15 mg BID PO Last administered on 07/22/16 08:07; Start 07/13/16 at 21:00; Stop 07/22/16 at 09:26; Status DC Oxycodone HCl (OxyCONTIN) 15 mg BID PO ; Start 07/26/16 at 22:00; Stop 07/26/16 at 22:00; Status DC Oxycodone HCl (OxyCONTIN) 15 mg BID PO Last administered on 07/25/16 08:29; Start 07/22/16 at 21:00; Stop 07/26/16 at 22:00 Oxycodone HCl (Roxicodone, Oxyir) 15 mg BID PO ; Start 07/13/16 at 21:00; Stop 07/13/16 at 23:16; Status DC Pregabalin (Lyrica) 25 mg BID PO ; Start 07/14/16 at 09:00; Stop 07/21/16 at 08: 59; Status UNV Pregabalin (Lyrica) 225 mg BID PO Last administered on 07/25/16 08:29; Start 07/13/16 at 21:00; Stop 07/27/16 at 20:59 Tamsulosin HCl (Flomax) 0.4 mg DAILY PO Last administered on 07/25/16 08:29; Start 07/14/16 at 09:00; Stop 08/13/16 at 08:59 Tamsulosin HCl (Flomax) 0.4 mg QHS PO ; Start 07/14/16 at 21:00; Stop 07/14/16 at 21:00; Status DC Trazodone HCl (Desyrel) 25 mg QHSP PRN PO INSOMNIA Last administered on 20:04; Start 07/13/16 at 22:30; Stop 07/18/16 at 17:37; Status DC Trazodone HCl (Desyrel) 50 mg QHSP PRN PO INSOMNIA; Start 07/13/16 at 22:00; Stop 07/13/16 at 22:20; Status DC Trazodone HCl (Desyrel) 50 mg QHSP PRN PO INSOMNIA Last administered on 20:05; Start 07/18/16 at 17:45; Stop 07/23/16 at 13:05; Status DC Trazodone HCl (Desyrel) 75 mg QHSP PRN PO INSOMNIA; Start 07/23/16 at 13:15; Stop 07/23/16 at 16:27; Status DC Trazodone HCl (Desyrel) 100 mg QHSP PRN PO INSOMNIA Last administered on 20:06; Start 07/23/16 at 16:30; Stop 08/22/16 at 16:29 Vitamin D (Vitamin D) 1,000 units DAILY PO Last administered on 07/25/16 08:31 ; Start 07/14/16 at 09:00; Stop 08/13/16 at 08:59 Allergies Coded Allergies: Diazepam (Verified Allergy, Unknown, 11/01/13) TAPE (Verified Allergy, Unknown, 12/02/13) Midazolam (Verified Adverse Reaction, Intermediate, "GO CRAZY", 02/15/13) Peggy Avina Jul 25, 2016 09:26
--- NOTE | 2016-07-25 12:08 | IPNPDOC ---
Subjective General Date Seen The patient was seen on 07/25/16. Subjective Chief Complaint/HPI The patient is a 55-year-old male admitted with a reason for visit of Unspecified Depressive D/O. Events since last encounter Continuing to monitor patient's diabetes. Patient states he is following diet better than he had been. Fingerstick blood sugar this morning was 306. Pulmonary: Denies: Cough, Dyspnea Cardiovascular: Denies: Chest Pain, Lt Headedness, Orthopnea, Palpitations, Paroxysmal Noc. Dyspnea Gastrointestinal: Denies: Abdominal Pain, Constipation, Diarrhea, Nausea, Vomiting Objective Physical Examination General Exam: Positive: Alert Eye Exam: Positive: PERRLA Chest Exam: Positive: Clear to auscultation, Normal air movement Heart Exam: Positive: Normal S1, Normal S2, Rate Normal, Regular Rhythm, Negative: Murmurs, Rubs Skin Exam: Positive: Nl turgor and temperature Neuro Exam: Positive: Other (ambulating with cane) Assessment /Plan Problems Problems: (1) Chronic low back pain Status: Chronic Problem Text: * Obtained copy of MRI completed at [facility] in [place] requested by Dr. Leiva. This indicated diminished disc hydration L1-L2, L2-L3 and L5-L1. Disc bulge L 12, L4-5. And broad-based disc bulge L5-S1. * Obtained copy of office note from Dr. Leiva dated 05/19/16. At that time MRI was set up. Patient was advised to continue medications as per primary care. Medication management was deferred to primary care. Recommendation was to exhaust nonnarcotic medication management for chronic nonmalignant pain. Plan was to follow-up in 4 weeks to review MRI results. * Reviewed with patient today. Request pain management opinion for further management of chronic pain. * Continue with present Lyrica 225 mg by mouth twice a day (of note patient was reduced 07/11/16-150 mg by mouth twice a day as per ISTOP) and patient has confirmed these instructions as per PCP. * OxyContin 15 mg twice a day was filled 07/11/16 for 7 day supply as per ISTOP reference number [id number] * Narcotic weaning schedule as per Pain mgmt. * PT eval and treat. * Flector patch added * Topical Carlin cardoza as needed. * Consider Zanaflex as needed if pain is not controlled as recommended as per pain mgmt. (2) Unsteady gait Status: Chronic Problem Text: * Continue with cane. (3) Diabetes mellitus type 2 in nonobese Status: Chronic Problem Text: * Consistent carbohydrate diet * Adjust Levemir to 20 units a.m./15 units p.m. * Cont to monitor fingerstick blood sugars. * Patient does admit that sometimes he adjusts his insulin at home on his own and states he was taking more then pharmacy med rec indicates. (4) Exposure to influenza Status: Acute Problem Text: * Patient agrees to Tamiflu prophylaxis 75 mg daily for 10 days Plan/VTE VTE Prophylaxis Ordered?: No (ambulatory) VS, I&O, 24H, Fishbone Vital Signs/I&O Vital Signs Date Time Temp Pulse Resp B/P Pulse Ox O2 Delivery O2 Flow Rate FiO2 07/25/16 08:33 93/58 07/25/16 08:29 18 07/25/16 06:39 96.5 126 07/24/16 20:30 95 Room Air Laboratory Data 24H LABS Laboratory Tests 2 07/24/16 14:33: Bedside Glucose (Misc Panel) 239H 07/24/16 17:02: Bedside Glucose (Misc Panel) 245H 07/24/16 19:59: Bedside Glucose (Misc Panel) 263H 07/25/16 06:39: Bedside Glucose (Misc Panel) 306H Radha Burdick Jul 25, 2016 12:08
[2016-07-25] MEDS: OSELTAMIVIR PHOSPHATE 75 MG CAP (TAMIFLU) PO SCH (12:30)
[2016-07-25 18:00] VITALS: BP 124/83
[2016-07-25] MEDS: ATORVASTATIN 10 MG TAB PO SCH (20:35)
[2016-07-25] MEDS: cloNIDine 0.1 MG TAB PO PRN (23:06)
[2016-07-26 06:14] VITALS: BP 106/57
[2016-07-26] MEDS: HumaLOG INSULIN (NovoLOG) PER UNIT SC SCH ×4 (06:41→21:08)
[2016-07-26] MEDS: **PENDING PPD ENTRY XX SCH (08:05)
[2016-07-26] MEDS: LEVEMIR (INSULIN DETEMIR) 1 UNITS/0.01ML SC SCH ×2 (08:08→21:07)
[2016-07-26] MEDS: DICLOFENAC EPOLAMINE 1.3 % PATCH TOP SCH ×2 (08:08→21:00)
[2016-07-26] MEDS: CitaloPRAM (CeleXA) 20 MG TAB PO SCH (08:09)
[2016-07-26] MEDS: ASPIRIN 81 MG ENTERIC TAB PO SCH (08:09)
[2016-07-26] MEDS: PREGABALIN 75 MG CAP(LYRICA) PO SCH ×2 (08:09→21:05)
[2016-07-26] MEDS: OSELTAMIVIR PHOSPHATE 75 MG CAP (TAMIFLU) PO SCH (08:09)
[2016-07-26] MEDS: TAMSULOSIN 0.4 MG CAP PO SCH (08:09)
[2016-07-26] MEDS: OMEPRAZOLE 20 MG CAP PO SCH (08:09)
[2016-07-26] MEDS: oxyCODONE 15 MG CR TAB PO SCH ×3 (08:10→22:13)
[2016-07-26] MEDS: LISINOPRIL 10 MG TAB PO SCH (08:10)
[2016-07-26] MEDS: VITAMIN D 1,000 INTERNATIONAL UNITS TABLET PO SCH (08:13)
[2016-07-26 18:40] VITALS: BP 113/64
[2016-07-26] MEDS: ATORVASTATIN 10 MG TAB PO SCH (21:03)
[2016-07-26] MEDS: cloNIDine 0.1 MG TAB PO PRN (21:10)
[2016-07-26] MEDS: traZODone 100 MG TAB PO PRN (21:10)
[2016-07-26] MEDS ORDERED: oxyCODONE 15 MG CR TAB PO SCH (22:00)
[2016-07-27] MEDS: HumaLOG INSULIN (NovoLOG) PER UNIT SC SCH ×4 (06:06→20:23)
[2016-07-27 06:32] VITALS: BP 127/74
[2016-07-27] MEDS: **PENDING PPD ENTRY XX SCH (08:11)
[2016-07-27] MEDS: LEVEMIR (INSULIN DETEMIR) 1 UNITS/0.01ML SC SCH ×2 (08:15→20:29)
[2016-07-27] MEDS: TAMSULOSIN 0.4 MG CAP PO SCH (08:17)
[2016-07-27] MEDS: PREGABALIN 75 MG CAP(LYRICA) PO SCH ×2 (08:18→20:29)
[2016-07-27] MEDS: OSELTAMIVIR PHOSPHATE 75 MG CAP (TAMIFLU) PO SCH (08:18)
[2016-07-27] MEDS: ASPIRIN 81 MG ENTERIC TAB PO SCH (08:18)
[2016-07-27] MEDS: cloNIDine 0.1 MG TAB PO PRN ×2 (08:18→20:31)
[2016-07-27] MEDS: CitaloPRAM (CeleXA) 20 MG TAB PO SCH (08:18)
[2016-07-27] MEDS: VITAMIN D 1,000 INTERNATIONAL UNITS TABLET PO SCH (08:18)
[2016-07-27] MEDS: OMEPRAZOLE 20 MG CAP PO SCH (08:18)
[2016-07-27] MEDS: LISINOPRIL 10 MG TAB PO SCH (08:19)
[2016-07-27] MEDS: DICLOFENAC EPOLAMINE 1.3 % PATCH TOP SCH ×2 (08:20→20:22)
[2016-07-27] MEDS: oxyCODONE 10 MG CR TAB PO SCH ×2 (09:40→20:30)
[2016-07-27 18:00] VITALS: BP 102/73
[2016-07-27] MEDS: traZODone 100 MG TAB PO PRN (20:29)
[2016-07-27] MEDS: ATORVASTATIN 10 MG TAB PO SCH (22:31)
[2016-07-28 06:27] VITALS: BP 96/56
[2016-07-28] MEDS: HumaLOG INSULIN (NovoLOG) PER UNIT SC SCH ×2 (07:15→11:53)
[2016-07-28 08:06] VITALS: BP 110/70
[2016-07-28] MEDS: DICLOFENAC EPOLAMINE 1.3 % PATCH TOP SCH (08:08)
[2016-07-28] MEDS: **PENDING PPD ENTRY XX SCH (08:08)
[2016-07-28] MEDS: LEVEMIR (INSULIN DETEMIR) 1 UNITS/0.01ML SC SCH (08:12)
[2016-07-28] MEDS: PREGABALIN 75 MG CAP(LYRICA) PO SCH (08:13)
[2016-07-28 08:14] VITALS: BP 110/70
[2016-07-28] MEDS: ASPIRIN 81 MG ENTERIC TAB PO SCH (08:14)
[2016-07-28] MEDS: VITAMIN D 1,000 INTERNATIONAL UNITS TABLET PO SCH (08:14)
[2016-07-28] MEDS: OMEPRAZOLE 20 MG CAP PO SCH (08:14)
[2016-07-28] MEDS: TAMSULOSIN 0.4 MG CAP PO SCH (08:14)
[2016-07-28] MEDS: OSELTAMIVIR PHOSPHATE 75 MG CAP (TAMIFLU) PO SCH (08:14)
[2016-07-28] MEDS: oxyCODONE 10 MG CR TAB PO SCH (08:14)
[2016-07-28] MEDS: LISINOPRIL 10 MG TAB PO SCH (08:14)
[2016-07-28] MEDS: CitaloPRAM (CeleXA) 20 MG TAB PO SCH (08:15)
[2016-07-28] MEDS ORDERED: CELE20TA PO (11:21)
[2016-07-28] MEDS ORDERED: TRAZ10TA PO (11:21)
--- NOTE | 2016-07-28 11:29 | IPNPDOC ---
Subjective General Date Seen The patient was seen on 07/28/16. Subjective Chief Complaint/HPI The patient is a 55-year-old male admitted with a reason for visit of Unspecified Depressive D/O. Events since last encounter Plan for d/c today as per Dr Scanlon. ENT: Denies: Dysphagia, Ear Pain, Head Aches Pulmonary: Denies: Cough, Dyspnea Cardiovascular: Denies: Chest Pain, Lt Headedness, Orthopnea, Palpitations, Paroxysmal Noc. Dyspnea Gastrointestinal: Denies: Abdominal Pain, Constipation, Diarrhea, Nausea, Vomiting Genitourinary: Denies: Dysuria, Frequency, Incontinence, Retention Objective Physical Examination General Exam: Positive: Alert Eye Exam: Positive: PERRLA Chest Exam: Positive: Clear to auscultation, Normal air movement Heart Exam: Positive: Normal S1, Normal S2, Rate Normal, Regular Rhythm, Negative: Murmurs, Rubs Skin Exam: Positive: Nl turgor and temperature Neuro Exam: Positive: Other (ambulating with cane) Assessment /Plan Problems Problems: (1) Chronic low back pain Status: Chronic Problem Text: * Obtained copy of MRI completed at [facility] in [place] requested by Dr. Leiva. This indicated diminished disc hydration L1-L2, L2-L3 and L5-L1. Disc bulge L 12, L4-5. And broad-based disc bulge L5-S1. * Obtained copy of office note from Dr. Leiva dated 05/19/16. At that time MRI was set up. Patient was advised to continue medications as per primary care. Medication management was deferred to primary care. Recommendation was to exhaust nonnarcotic medication management for chronic nonmalignant pain. Plan was to follow-up in 4 weeks to review MRI results. * Reviewed with patient today. Request pain management opinion for further management of chronic pain. * Continue with present Lyrica 225 mg by mouth twice a day (of note patient was reduced 07/11/16-150 mg by mouth twice a day as per ISTOP) and patient has confirmed these instructions as per PCP. * OxyContin 15 mg twice a day was filled 07/11/16 for 7 day supply as per ISTOP reference number [id number] * Narcotic weaning schedule as per Pain mgmt. * PT eval and treat. * Flector patch added * Topical Carlin cardoza as needed. * Per Dr Scanlon Plan is for D/C today. Dr Scanlon requests a prescription for Oxycontin 10 mg BID x 7 days as well as Lyrica 225 mg BID x 7 days which Pt is currently taking which will last until Pt appt with Pain mgmt Dr Leiva, Thursday. This has been sent to Pharmacy for the Pt. Mid Level Practitioner is aware. (2) Unsteady gait Status: Chronic Problem Text: * Continue with cane. (3) Diabetes mellitus type 2 in nonobese Status: Chronic Problem Text: * Consistent carbohydrate diet * Adjust Levemir to 20 units a.m./15 units p.m. * Cont to monitor fingerstick blood sugars. * Patient does admit that sometimes he adjusts his insulin at home on his own and states he was taking more then pharmacy med rec indicates. (4) Exposure to influenza Status: Acute Problem Text: * Patient agrees to Tamiflu prophylaxis 75 mg daily for 10 days Plan/VTE VTE Prophylaxis Ordered?: No (ambulatory) VS, I&O, 24H, Fishbone Vital Signs/I&O Vital Signs Date Time Temp Pulse Resp B/P Pulse Ox O2 Delivery O2 Flow Rate FiO2 07/28/16 08:14 16 07/28/16 08:14 110/70 07/28/16 08:06 73 07/28/16 06:27 95.5 07/24/16 20:30 95 Room Air Laboratory Data 24H LABS Laboratory Tests 2 07/27/16 11:57: Bedside Glucose (Misc Panel) 307H 07/27/16 17:00: Bedside Glucose (Misc Panel) 229H 07/27/16 20:22: Bedside Glucose (Misc Panel) 239H 07/28/16 07:09: Bedside Glucose (Misc Panel) 198H Radha Burdick Jul 28, 2016 11:29
[2016-07-28] MEDS ORDERED: OSEL75CA PO (11:50)
[2016-07-28] MEDS ORDERED: DICL13PA TOP (11:50)
[2016-07-28] MEDS ORDERED: LYRI75CA PO (11:50)
[2016-07-28] MEDS ORDERED: OXYC-299 PO (11:57)
[2016-07-28] MEDS ORDERED: BENCRE EXT (12:40)
--- NOTE | 2016-07-29 17:32 | IPNPDOC ---
[facility] Progress Note Progress Note The following note was generated on 07/29/16. Building Components Designer did not see the patient, nor was chief writer present at time patient was discharged from inpatient treatment on 07/28/16. Note was generated at request of discharging provider in effort to provide background on treatment while patient was in hospital. DIAGNOSES: Major depressive disorder, recurrent, severe, Rule out personality disorder (cluster B), Alcohol use disorder, Chronic pain disorder. REASON FOR ADMISSION: This is a 55-year-old male with past psychiatric history significant for major depressive disorder recurrent severe. Patient is well known to the department. Patient has had over 5 admissions for suicide attempts at [facility]. Patient was last at [facility] two-weeks ago before similar presentation, status post suicide attempt. Patient reports his primary stressor causing him to hurt himself is his recently being told by his primary care provider that he will be tapered off of his opiate pain management. Patient reports being angered by the doctor telling him that his reasoning was that he did not want him to overdose on his pain pills. Overdose is the primary means of patient's prior suicide attempts. Patient reports feeling like he would show the doctor that he could overdose on anything. Patient went home from the appointment and per patient injected himself with greater than 5 units more insulin than he is scheduled. Patient's subsequently had an altered mental status and presented to the emergency department altered and with derangement of labs. At time of admission patient endorses ongoing depression, he reports distress and depression are driven by worsening pain and patient reports that tapered dose of oxycodone is noticeable. At time of admission patient reports fair appetite and sleep. Patient states he is medication compliant and denies medication side effects. Patient reports no current suicidal ideations or homicidal ideations and denies auditory hallucinations and visual hallucinations. As previously noted, the patient has greater than 5 hospitalizations for worsening depression and/or suicide attempts. Patient denies history of trauma, abuse, or domestic violence issues. Patient states he has never used drugs. Patient minimizes alcohol use, stating he consumes 4-5 beers once a month for special occasions only. PAST MEDICAL/SURGICAL HISTORY: COPD, Diabetes mellitus type 2, hepatitis C, DJD , Dupuytren's contractures of hands and feet, CVA 2 in 2008 (no residual effects), grade 1 diastolic CHF. Most recent echocardiogram October 2014 EF 60%, grade 1 diastolic dysfunction, borderline LVH, EGD and colonoscopy 2016; hemorrhoids otherwise unremarkable, Liver biopsy 2007, Tonsillectomy, multiple hand injections, Dupuytren's contracture release of left hand when he 12. CONSULTS INVOLVED: Pain Management with [facility]. Also, contact made with Dr. Leiva's office and Dr. Leiva will not be prescribing pain medication, nor is there a neurosurgeon appointment scheduled for 08/07/16 as reported by patient. The patient does, however, have an appointment scheduled with Dr. Leiva's office on 08/04/16. Dr. Leiva's office in the past had recommended pain medication taper due to patient's liver problems with use of nonnarcotics to address pain. Dr. Leiva's office declined to comment on safety/appropriateness of speeding up pain medication taper. TREATMENT PROGRESS ON UNIT/HOSPITAL COURSE: Patient has been observed to be up out of bed, visible in lounge, attended to ADLs, remains cooperative staff, participating in unit programming. Patient remains engageable and is superficially compliant, has repeatedly stated that he feels that if his pain was "controlled" he would not experience anxiety, depression, and suicidal ideation, minimizes alcohol use and in combination with pain medication. Administrative hearing was held 07/25/16 with transfer to longer term facility determined as appropriate to proceed. Referral made by [facility] to PT. Patient has indicated he is in agreement with pain medication taper which was initiated, based on the recommendations made by pain management, during his inpatient stay. Patient has consistently minimized events which led to his current hospitalization, rationalizes recent suicide attempt and minimizes alcohol use. Patient has declined inpatient substance abuse treatment but has stated he will participate on an outpatient basis. Patient has indicated that that his current medication regimen of Celexa 20 mg po q day and Trazodone 75 mg po q hs are effective, denies medication side effects. Patient indicates his desired discharge plan is to return home with with follow up outpatient treatment. DISCHARGE ASSESSMENT: Unable to complete assessment due to chief writer not meeting with patient prior to discharge. MENTAL STATUS EXAMINATION AT DISCHARGE: Unable to complete mental status examination due to chief writer not meeting with patient prior to discharge. MEDICATIONS AT DISCHARGE: See below PLAN/FOLLOW UP ARRANGEMENTS: Unable to complete due to chief writer not meeting with patient or web coordinator prior to discharge. Vital Signs Vital Signs Date Time Temp Pulse Resp B/P Pulse Ox O2 Delivery O2 Flow Rate FiO2 07/28/16 08:14 16 07/28/16 08:14 110/70 07/28/16 08:06 73 07/28/16 06:27 95.5 07/24/16 20:30 95 Room Air Current Medications Current Medications Acetaminophen (Tylenol Tab) 650 mg Q6HP PRN PO HEADACHE or DISCOMFORT; Start at 22:00; Stop 07/28/16 at 15:36; Status DC Al Hydrox/Mg Hydrox/Simethicone (Mylanta) 30 ml Q4HP PRN PO HEARTBURN/ INDIGESTION; Start 07/13/16 at 22:00; Stop 07/28/16 at 15:36; Status DC Aspirin (Ecotrin) 81 mg DAILY PO Last administered on 07/28/16 08:14; Start at 09:00; Stop 07/28/16 at 15:36; Status DC Atorvastatin Calcium (Lipitor) 10 mg QHS PO Last administered on 07/27/16 22: 31; Start 07/13/16 at 21:00; Stop 07/28/16 at 15:36; Status DC Citalopram Hydrobromide (CeleXA) 20 mg DAILY PO Last administered on 07/28/16 08:15; Start 07/14/16 at 09:00; Stop 07/28/16 at 15:36; Status DC Clonidine HCl (Catapres) 0.1 mg Q8H PRN PO withdrawal symptoms Last administered on 07/27/16 20:31; Start 07/22/16 at 15:45; Stop 07/28/16 at 15:36 ; Status DC Dextrose (Dextrose 50%) 25 ml ASDIRECTED PRN IV SEE LABEL COMMENTS; Start 07/13 at 22:00; Stop 07/28/16 at 15:36; Status DC Diclofenac Epolamine (Flector 1.3%) 1 patch Q12H TOP Last administered on 08:08; Start 07/21/16 at 21:00; Stop 07/28/16 at 15:36; Status DC Glucagon (Glucagon) 1 mg ASDIRECTED PRN SC SEE LABEL COMMENTS; Start 07/13/16 at 22:00; Stop 07/28/16 at 15:36; Status DC Glucose (Glucose) 16 GM ASDIRECTED PRN PO SEE LABEL COMMENTS; Start 07/13/16 at 22:00; Stop 07/28/16 at 15:36; Status DC Insulin Detemir (Levemir Insulin) 10 units QHS SC Last administered on 20:23; Start 07/13/16 at 21:00; Stop 07/25/16 at 12:01; Status DC Insulin Detemir (Levemir Insulin) 15 units QHS SC Last administered on 20:29; Start 07/25/16 at 21:00; Stop 07/28/16 at 15:36; Status DC Insulin Detemir (Levemir Insulin) 20 units QAM SC Last administered on 08:12; Start 07/14/16 at 09:00; Stop 07/28/16 at 15:36; Status DC Insulin Detemir (Levemir Insulin) 50 units BID SC ; Start 07/13/16 at 21:00; Stop 07/13/16 at 23:16; Status DC Insulin Detemir (Levemir Insulin) 50 units BID SC ; Start 07/14/16 at 09:00; Stop 07/14/16 at 09:00; Status DC Insulin Human Lispro (HumaLOG INSULIN) See Protocol Table AC SC Last administered on 07/28/16 11:53; Start 07/14/16 at 07:30; Stop 07/28/16 at 15:36 ; Status DC Insulin Human Lispro (HumaLOG INSULIN) See Protocol Table QHS SC Last administered on 07/26/16 21:08; Start 07/13/16 at 21:00; Stop 07/28/16 at 15:36 ; Status DC Insulin Human Lispro (HumaLOG INSULIN) See Protocol Table QHS SC ; Start at 21:00; Stop 07/14/16 at 21:00; Status DC Lisinopril (Prinivil) 10 mg DAILY PO Last administered on 07/28/16 08:14; Start 07/14/16 at 09:00; Stop 07/28/16 at 15:36; Status DC Magnesium Hydroxide (Milk Of Magnesia) 30 ml DAILYPRN PRN PO CONSTIPATION Last administered on 07/23/16 16:24; Start 07/13/16 at 22:00; Stop 07/28/16 at 15:36 ; Status DC Menthol/Methyl Salicylate (Bengay Cream) apply to low back as needed BID PRN TOP PAIN Last administered on 07/26/16 16:06; Start 07/21/16 at 15:15; Stop at 15:36; Status DC Miscellaneous (Unresolved Clarification Entry) SEE LABEL COMMENTS UNRESOLVED XX ; Start 07/27/16 at 00:01; Stop 07/27/16 at 09:43; Status DC Non-Formulary Medication ( See Comment Field Below ) SEE COMMENTS SECTION 1T @10 XX ; Start 07/23/16 at 10:00; Stop 07/23/16 at 10:00; Status DC Non-Formulary Medication ( See Comment Field Below ) SEE LABEL COMMENTS DAILY XX ; Start 07/21/16 at 09:00; Stop 07/28/16 at 15:36; Status DC Omeprazole (PriLOSEC) 20 mg DAILY PO Last administered on 07/28/16 08:14; Start 07/14/16 at 09:00; Stop 07/28/16 at 15:36; Status DC Ondansetron HCl (Zofran) 4 mg Q8HP PRN PO NAUSEA OR VOMITING; Start 07/24/16 at 11:30; Stop 07/28/16 at 15:36; Status DC Oseltamivir Phosphate (Tamiflu) 75 mg DAILY PO Last administered on 07/28/16 08:14; Start 07/25/16 at 09:00; Stop 07/28/16 at 15:36; Status DC Oxycodone HCl (OxyCONTIN) 10 mg BID PO Last administered on 07/28/16 08:14; Start 07/27/16 at 09:00; Stop 07/28/16 at 15:36; Status DC Oxycodone HCl (OxyCONTIN) 15 mg BID PO Last administered on 07/22/16 08:07; Start 07/13/16 at 21:00; Stop 07/22/16 at 09:26; Status DC Oxycodone HCl (OxyCONTIN) 15 mg BID PO ; Start 07/26/16 at 22:00; Stop 07/26/16 at 22:00; Status DC Oxycodone HCl (OxyCONTIN) 15 mg BID PO Last administered on 07/26/16 22:13; Start 07/22/16 at 21:00; Stop 07/26/16 at 22:00; Status DC Oxycodone HCl (Roxicodone, Oxyir) 15 mg BID PO ; Start 07/13/16 at 21:00; Stop 07/13/16 at 23:16; Status DC Pregabalin (Lyrica) 25 mg BID PO ; Start 07/14/16 at 09:00; Stop 07/21/16 at 08: 59; Status UNV Pregabalin (Lyrica) 225 mg BID PO Last administered on 07/28/16 08:13; Start 07/13/16 at 21:00; Stop 07/28/16 at 15:36; Status DC Tamsulosin HCl (Flomax) 0.4 mg DAILY PO Last administered on 07/28/16 08:14; Start 07/14/16 at 09:00; Stop 07/28/16 at 15:36; Status DC Tamsulosin HCl (Flomax) 0.4 mg QHS PO ; Start 07/14/16 at 21:00; Stop 07/14/16 at 21:00; Status DC Trazodone HCl (Desyrel) 25 mg QHSP PRN PO INSOMNIA Last administered on 20:04; Start 07/13/16 at 22:30; Stop 07/18/16 at 17:37; Status DC Trazodone HCl (Desyrel) 50 mg QHSP PRN PO INSOMNIA; Start 07/13/16 at 22:00; Stop 07/13/16 at 22:20; Status DC Trazodone HCl (Desyrel) 50 mg QHSP PRN PO INSOMNIA Last administered on 20:05; Start 07/18/16 at 17:45; Stop 07/23/16 at 13:05; Status DC Trazodone HCl (Desyrel) 75 mg QHSP PRN PO INSOMNIA; Start 07/23/16 at 13:15; Stop 07/23/16 at 16:27; Status DC Trazodone HCl (Desyrel) 100 mg QHSP PRN PO INSOMNIA Last administered on 20:29; Start 07/23/16 at 16:30; Stop 07/28/16 at 15:36; Status DC Vitamin D (Vitamin D) 1,000 units DAILY PO Last administered on 07/28/16 08:14 ; Start 07/14/16 at 09:00; Stop 07/28/16 at 15:36; Status DC Allergies Coded Allergies: Diazepam (Verified Allergy, Unknown, 11/01/13) TAPE (Verified Allergy, Unknown, 12/02/13) Midazolam (Verified Adverse Reaction, Intermediate, "GO CRAZY", 02/15/13) Peggy Avina Jul 29, 2016 17:32
--- NOTE | 2016-07-31 09:08 | MHDS ---
DATE OF ADMISSION: 07/13/2016 DATE OF DISCHARGE: 07/28/2016 LEGAL STATUS AT ADMISSION: 9.39 legal status. This is a 55-year-old male with history of major depression, recurrent, alcohol abuse, and opiate abuse admitted to our unit on a 9.39 legal status. The patient has been treated by Peggy Avina during his hospitalization. He was admitted for depression and suicidal ideation and the fact that he took more insulin in a suicidal attempt prior to admission. Please refer to the note of Peggy Avina on 07/29/2016 for more information. I was involved in the discharge process on 07/28/2016. That day, the patient was requesting to be discharged. I reviewed the chart and evaluated the patient. The patient was in the lounge prior to coming to my office. He was interacting, smiling, and joking with other patients in the lounge. The patient did not have psychomotor retardation. During the interview, the patient was requesting to be discharged. He did not want to be transferred to [facility]. The patient was stating that he became depressed when he was told that his primary care physician was not going to continue prescribing opiates. He states that now he is significantly better and that he is no longer depressed and that he does not have any suicidal ideation. During the interview, there was no evidence of psychotic symptoms. No auditory or visual hallucinations. We discussed the treatment plan with the patient and the fact that his medical providers are no longer going to prescribe opiates. The patient admitted that he has misused the medication and has taken more than prescribed. He knows that he is not able to manage this medication well, therefore, he is agreeable with the tapering of the opiates and continuing with the plan of his medical doctors. He has an appointment with Dr. Leiva on 08/04/2016. He is agreeable to continue the recommendations of the pain clinic and his recommendations. His MS Contin has been tapered slowly and he is now on 10 mg by mouth twice a day. He is tolerating well the medication and is denying any side effects. At this point, the patient does not meet criteria for involuntary hospitalization. He has requested to go. He has discussed the issues with his and his was supportive and wants him back home. A meeting with the patient and his was held before discharge and everything went well. Therefore, at this point, and since the patient does not meet criteria for involuntary hospitalization, he will be discharged from our unit in stable condition. MENTAL STATUS EXAMINATION AT DISCHARGE: The patient is dressed in casual clothes. The patient is calm and cooperative. Speech is clear, coherent, with normal rate and is spontaneous. Patient has good eye contact. Mood is slightly anxious, but significantly improved from admission and is no longer depressed. Affect is appropriate and congruent with mood. Patient is oriented to time, place, person and situation. Maintains attention and concentration correctly. Instant recall, recent and remote memory are intact. Thought processes are chronological and goal directed. The patient does not have auditory or visual hallucinations. The patient does not have paranoid, persecutory, somatic, grandiose or latter-day delusions. The patient is denying suicidal or homicidal ideation. Judgment and insight are fair. DISCHARGE DIAGNOSES: AXIS I: Major depressive disorder, recurrent. Alcohol abuse. Opiate abuse. AXIS II: Deferred. AXIS III: Chronic pain. INSTRUCTIONS TO THE PATIENT: The patient is to continue taking his medications as prescribed and followup appointments. He is advised to maintain absolute sobriety from drugs and alcohol. The patient has a scheduled appointment for psychiatric medication, individual psychotherapy, primary care physician and Dr. Leiva appointment on 08/04/2016.
== END 2016-07-28 15:15 | disposition home or self-care (01) | DRG 751 ==
LOC: M PSY 18:34
PROVIDERS: ADMIT Psychiatry & Neurology Psychiatry; ATTEND Psychiatry & Neurology Psychiatry
DX: F33.9 Major depressive disorder, recurrent, unspecified (principal); E11.40 Type 2 diabetes mellitus with diabetic neuropathy, unspecified; R45.851 Suicidal ideations; D69.6 Thrombocytopenia, unspecified; J44.9 Chronic obstructive pulmonary disease, unspecified; F10.10 Alcohol abuse, uncomplicated; F11.10 Opioid abuse, uncomplicated; F60.9 Personality disorder, unspecified; R94.31 Abnormal electrocardiogram [ECG] [EKG]; I10 Essential (primary) hypertension; N40.0 Benign prostatic hyperplasia without lower urinary tract symptoms; R94.6 Abnormal results of thyroid function studies; R26.81 Unsteadiness on feet; M46.86 Other specified inflammatory spondylopathies, lumbar region; B19.20 Unspecified viral hepatitis C without hepatic coma; M51.26 Other intervertebral disc displacement, lumbar region; M46.1 Sacroiliitis, not elsewhere classified; G89.29 Other chronic pain; Z86.14 Personal history of Methicillin resistant Staphylococcus aureus infection; Z79.4 Long term (current) use of insulin; Z86.73 Personal history of transient ischemic attack (TIA), and cerebral infarction without residual deficits; Z79.899 Other long term (current) drug therapy; Z83.3 Family history of diabetes mellitus; Z82.3 Family history of stroke; Z82.49 Family history of ischemic heart disease and other diseases of the circulatory system; Z79.82 Long term (current) use of aspirin; Z91.048 Other nonmedicinal substance allergy status; Z88.8 Allergy status to other drugs, medicaments and biological substances; Z91.5 Personal history of self-harm

== ENCOUNTER 2016-09-17 11:19 | Inpatient (IN) | payer MEDICAID, SELFPAY ==
[~2016-09-17] VITALS: Ht 180.3 cm; Wt 92.7 kg
[~2016-09-17 11:19] MED LIST changes: +BENCRE EXT; +DICL13PA TOP; +OSEL75CA PO; +OXYC-299 PO; +TRAZ10TA PO
[2016-09-17] MEDS ORDERED: CYMB60CA3 PO (11:31)
[2016-09-17] MEDS: MORPHINE 2 MG/ML 1ML SYRINGE IV PRN ×4 (13:11→14:46)
[2016-09-17 13:44] LABS: ALBUMIN 3.9 GM/DL (3.2-5.2); ALBUMIN/GLOBULIN RATIO 1.08 (1.00-1.93); ALKALINE PHOSPHATASE 107 U/L (45-117); ALT/SGPT 56 U/L (12-78); ANION GAP 6 MEQ/L (8-16); AST/SGOT 49 U/L (15-37); BILIRUBIN,DIRECT 0.2 MG/DL (0.0-0.2); BILIRUBIN,TOTAL 0.7 MG/DL (0.2-1.0); BLOOD UREA NITROGEN 12 MG/DL (7-18); CALCIUM LEVEL 9.5 MG/DL (8.5-10.1); CARBON DIOXIDE LEVEL 27 MEQ/L (21-32); CHLORIDE LEVEL 98 MEQ/L (98-107); CREATININE FOR GFR 0.81 MG/DL (0.70-1.30); GLOMERULAR FILTRATION RATE > 60.0 (>56); GLUCOSE, FASTING 348 MG/DL (70-105); POTASSIUM SERUM 4.5 MEQ/L (3.5-5.1); SODIUM LEVEL 131 MEQ/L (136-145); TOTAL PROTEIN 7.5 GM/DL (6.4-8.2)
[2016-09-17 13:55] LABS: BASO % 0.4 % (0.0-1.0); EOS # 0.1 K/mm3 (0.0-0.50); EOS % 0.9 % (0.0-3.0); LARGE UNSTAINED CELL # 0.2 K/mm3 (0.0-0.4); LYMPH # 2.1 K/mm3 (1.5-4.5); LYMPH % 22.1 % (24.0-44.0); MEAN CORPUSCULAR HEMOGLOBIN 30.4 pg (27.0-33.0); MEAN CORPUSCULAR HGB CONC 33.5 g/dl (32.0-36.5); MEAN CORPUSCULAR VOLUME 90.6 fl (80.0-96.0); MONO # 0.6 K/mm3 (0.0-0.8); MONO % 7.3 % (0.0-5.0); NEUTROPHILS # 5.8 K/mm3 (1.8-7.7); NEUTROPHILS % 67.3 % (36.0-66.0); PLATELET COUNT, AUTOMATED 118 k/mm3 (150-450); RED CELL DISTRIBUTION WIDTH 12.5 % (11.5-14.5); WHITE BLOOD COUNT 8.6 K/mm3 (4.0-10.0)
[2016-09-17] MEDS ORDERED: KETOROLAC 30 MG/ML VIAL (J1885) IV ONE (14:00)
--- NOTE | 2016-09-17 14:28 | REP ---
BILATERAL RIB SERIES: Multiple views of bilateral ribs performed. Five views of each side performed. No fracture or bone lesion is seen. An accompanying view of the chest demonstrates mild elevation of the left hemidiaphragm. There is no acute infiltrate or pneumothorax. IMPRESSION: No evidence of fracture of bilateral ribs. Signed by Case Garsia MD 09/17/2016 05:40 P
--- NOTE | 2016-09-17 14:50 | REP ---
CT ABDOMEN AND PELVIS WITHOUT CONTRAST: CT abdomen and pelvis performed without IV contrast, with sagittal and coronal and reconstruction images performed. Visualized lung bases are clear. The liver, gallbladder, spleen, adrenals, pancreas, and kidneys are grossly unremarkable, except for two small right renal cysts and a single left renal cyst. There is no hydronephrosis bilaterally. There is no free air or free fluid. There is no abdominal aortic aneurysm with moderate atherosclerotic calcification. There is no bowel wall thickening. There is no pelvic mass. Urinary bladder appears grossly unremarkable. There is no fracture of the visualized osseous structures. IMPRESSION: Small bilateral renal cysts. No posttraumatic abnormalities. No free air or free fluid. No adenopathy. No evidence of fracture of the visualized osseous structures. Signed by Case Garsia MD 09/17/2016 05:40 P
[2016-09-17] MEDS ORDERED: oxyCODONE 5MG TAB PO ONE (15:15)
[2016-09-17] MEDS ORDERED: NS 500 ML IV ONE (16:15)
[2016-09-17 16:24] LABS: METHADONE URINE NEGATIVE (NEGATIVE)
[2016-09-17] MEDS ORDERED: GLUCOSE 4 GM CHEW TABLET PO PRN (17:15)
[2016-09-17] MEDS ORDERED: DEXTROSE 50% 50 ML SYRINGE IV PRN (17:15)
[2016-09-17] MEDS ORDERED: GLUCAGON FOR INJ 1 MG VIAL (J1610) SC PRN (17:15)
[2016-09-17 17:30] VITALS: BP_SYST 129; BP_SYST 140; BP_SYST 143; BP_DIAS 72; BP_DIAS 82; BP_DIAS 85
[2016-09-17] MEDS: NS 1,000 ML IV SCH (17:48)
[2016-09-17] MEDS: HumaLOG INSULIN (NovoLOG) PER UNIT SC SCH ×3 (17:49→22:01)
[2016-09-17] MEDS ORDERED: MORPHINE 2 MG/ML 1ML SYRINGE IV ONE (18:15)
[2016-09-17] MEDS ORDERED: PERCOCET 5MG/325MG TAB PO ONE (18:15)
[2016-09-17] MEDS ORDERED: CITA20TA4 PO (19:31)
[2016-09-17] MEDS ORDERED: INSULANT SC (19:31)
[2016-09-17] MEDS ORDERED: LYRI225C PO (19:34)
[2016-09-17] MEDS ORDERED: OXYC-299 PO (19:34)
[2016-09-17] MEDS ORDERED: TRAZ150T14 PO (19:39)
[2016-09-17] MEDS ORDERED: INSUDET SC (19:40)
[2016-09-17] MEDS ORDERED: PATIENT COMMENT (19:40)
--- NOTE | 2016-09-17 20:50 | HPE ---
DATE OF ADMISSION: 09/17/2016 INPATIENT HOSPITALIST ATTENDING: DR. DOVE (Pt will be signed out to Dr. Dove at 2200 09/17/16) PRIMARY CARE PROVIDER: [facility] INFECTIOUS DISEASE SPECIALIST: Micky Mcclendon MD CHIEF COMPLAINT: Fall and dizziness. HISTORY OF PRESENT ILLNESS: 56-year-old male with history of major depression with recurrent alcohol abuse, opiate abuse, four suicide attempts in the past, hepatitis C, follows with Dr. Micky Mcclendon, on [facility], insulin overdose, type 2 diabetes, alcohol abuse, history of atrial fibrillation, anxiety, hypertension, severe chronic obstructive pulmonary disease (COPD), history of cerebrovascular accident (CVA) 2008 with no residual affects presents to the emergency room with complaints of dizziness while getting up from the toilet, falling into the shower and complaining of severe back pain and chest pain with bilateral flank bruising. The patient complains of pleuritic chest pain and has chronic vertigo. He has been in his usual state of health. Denies any fever or chills, shortness of breath, palpitations, lightheadedness, bright red blood per rectum, melena, hematemesis, decreased oral intake, weight changes, changes in appetite prior to the fall. According to the patient he has had prior episodes of vertigo in the past, but was unable to get up and has severe pain after the fall. In the ER he was found to be orthostatic. Hospitalist service was called for admission for IV fluids and further evaluation. He currently denies any palpitations or lightheadedness. No chest pain, pressure or tightness, shortness of breath. Denies any nausea or vomiting, epigastric abdominal pain. Rib x-ray in the ER shows no fracture of bilateral ribs. CT abdomen and pelvis shows small bilateral renal cysts. No posttraumatic abnormalities. No free air, free fluid, no evidence of fracture of the visualized osseous structures. Hospitalist service was called for admission for orthostatic hypotension and pain control. PAST MEDICAL HISTORY: Insulin overdose with history of four suicide attempts. Type 2 diabetes. Alcohol abuse. History of atrial fibrillation. Anxiety. Severe depression. Hypertension. COPD. Chronic hepatitis C. History of CVA in 2008, with no residual effects. Degenerative joint disease, Dupuytren's contractures hands and feet. Adjustment disorder with mixed anxiety and depression. Grade 1 diastolic congestive heart failure (CHF). Most recent echo October 2014, ejection fraction (EF) of 60%, grade 1 diastolic dysfunction, borderline left ventricular hypertrophy (LVH). PAST SURGICAL HISTORY: Esophagogastroduodenoscopy (EGD). Colonoscopy showing hemorrhoids 2015. Liver biopsy 2007. Tonsillectomy. Multiple hand injections. Dupuytren's contracture relief of the left hand when he was 12. FAMILY HISTORY: Father with heart failure, CVA, VT, at 78. Mother with heart failure, VT, hypertension, throat cancer, at 63. One brother alive at 59 with quadruple bypass. Three sons, one daughter, all of whom are healthy. SOCIAL HISTORY: Nonsmoker. Previous heavy alcohol use. Denies current drug use. Prior history of drug abuse with opiates. Follows with Dr. Leiva as outpatient. Prior multiple admissions to psychiatric unit for major depression, which is recurrent and suicidal ideation and attempts. Lives at home with his . REVIEW OF SYSTEMS: 12-point system negative aside from positive findings in HPI. HOME MEDICATIONS: - aspirin 81 daily - atorvastatin 10 at bedtime - BenGay twice a day as needed - vitamin D 1000 units daily - Celexa 20 daily - Flector patch topically every 12 hourly - Levemir insulin 20 units every a.m., 10 units at bedtime - lispro Humalog insulin before food, at bedtime - lisinopril 10 daily - omeprazole 20 daily - Tamiflu 75 daily. This was from 07/28/2016. - OxyContin 10 twice a day - Lyrica 225 twice a day ALLERGIES: DIAZEPAM, TAPE and MIDAZOLAM, "go crazy" 02/15/2013. PHYSICAL EXAMINATION: Temperature 98.4, pulse 108, respiratory rate 20, blood pressure 148/66, 94% on room air. Supine blood pressure 140/82. Sitting is 142/85. Standing 129.72. Pulse supine 116. Sitting 117. Standing 124. General: The patient is awake, alert, oriented times three. Answering questions appropriately. Anicteric sclera. No jaundice. Pupils are equally round and reactive to light and accommodation. Extraocular muscles are intact. Normocephalic, atraumatic. No nystagmus horizontal or vertical. No cervical lymphadenopathy, thyromegaly. Moist mucous membranes. Lungs are clear to auscultation. No wheezing, rales or rhonchi. Heart: S1, S2. Sinus rhythm. Abdomen is soft, positive bowel sounds, nontender. Ecchymotic areas are noted on the flanks. No hepatosplenomegaly. Extremities: No pitting edema, cyanosis. LABORATORY DATA: White count 8.6, hemoglobin 15, hematocrit 46, platelet count 118, previous platelet count on July 15, 2016 is 128. Sodium 131, potassium 4.5, chloride 98, bicarbonate 27, BUN 12, creatinine 0.81, glucose 348, calcium 9.5. Total bilirubin 0.7, direct bilirubin 0.2. ALC 49, ALT 56, alkaline phosphatase 107. Total CK 64, CK-MB 1. Troponin less than 0.02. Total protein 7.5, albumin 3.9, TSH 0.89. Microbiology: Urine culture is pending. Urinalysis: 2+ protein, 3+ glucose, 1+ ketone, 2+ blood, negative nitrite, bilirubin. 0 WBC, negative leukocyte esterase. Urine toxicology screen positive for opiates. Ethyl alcohol less than 0.003. Rib x-ray: No acute fracture of bilateral ribs. CT abdomen and pelvis: Small bilateral renal cysts. No posttraumatic abnormalities. No free air or free fluid. No adenopathy. No evidence of fracture of visualized osseous structures. ASSESSMENT AND PLAN: This is a 56-year-old male with history of alcohol abuse, opiates abuse, severe depression, four suicide attempts, insulin overdose, type 2 diabetes, chronic back pain, follows with Dr. Leiva, hyperlipidemia, COPD, chronic hepatitis C on [facility], degenerative joint disease, Dupuytren's contractures of hands and feet, CVA times two with no residuals, adjustment disorder with mixed anxiety, depression, alcohol abuse, grade 1 diastolic CHF, hemorrhoids via EGD and colonoscopy 2015, prior tonsillectomy and multiple hand injections presents to the emergency room with complaints of fall and dizziness, was found to be orthostatic sustaining bilateral left flank ecchymotic areas, status post fall on the bathtub while in the bathroom. The patient will be admitted for observation. Inpatient hospitalist will be Dr. Shine oDve. The patient will be admitted for observation for the following issues. 1. Orthostatic hypotension. The patient will be given intravenous fluids. Orthostatic vitals every 4 hourly until patient is euvolemic. The patient denies any recent history of upper or lower GI bleed. Currently denies hematemesis, bright red blood per rectum, melena or black tarry stools. He will be continued on his home medications. Will hold off on patient's tamsulosin as it can cause orthostasis. Midodrine as needed. The patient denies any palpitations or lightheadedness prior to the episode. He has a prior history of atrial fibrillation. Not on anticoagulation. Will check a 12-lead EKG if patient becomes more symptomatic. Current EKG showed a sinus rhythm, ventricular rate of 92 with left axis deviation. No acute ischemic changes. 2. Fall secondary to orthostatic hypotension. No acute fractures on CT abdomen and pelvis of the osseous structures. Rib x-ray is unremarkable. The patient has flank ecchymosis due to history of hepatitis C and history of opiate abuse. Will consult pain management to adjust his medications. 3. Type 2 diabetes, uncontrolled. Due to the fall, the patient has not taken his home dose of insulin. Will continue with consistent carbohydrate diet. Insulin sliding scale with coverage and continue home dose of long acting insulin. 4. Hyperlipidemia. Check lipid panel in the morning. Continue with Lipitor. 5. History of hepatitis C. Outpatient followup with Dr. Mcclendon. Currently recieving Geovany. 6. Hypertension. Continue on lisinopril for now. 7. Benign prostatic hypertrophy (BPH). Hold off on Flomax as it can cause hypotension. Proscar and monitor for urine retention. 8. Chronic back pain. Defer to pain management. May continue patient's Lyrica this evening. [facility]
[2016-09-17] MEDS: DICLOFENAC EPOLAMINE 1.3 % PATCH TOP SCH (21:00)
[2016-09-17] MEDS: ATORVASTATIN 10 MG TAB PO SCH (21:00)
[2016-09-17] MEDS: MECLIZINE 25 MG TABLET PO SCH (21:00)
[2016-09-17] MEDS: LEVEMIR (INSULIN DETEMIR) 1 UNITS/0.01ML SC SCH (21:00)
[2016-09-17] MEDS: PERCOCET 5MG/325MG TAB PO PRN (21:16)
[2016-09-17] MEDS: PREGABALIN 75 MG CAP(LYRICA) PO SCH (21:17)
[2016-09-17] MEDS: HEPARIN SOD (PORCINE) 5000 UNITS/ML VIAL SC SCH (21:19)
[2016-09-17 22:00] VITALS: BP_SYST 131; BP_SYST 141; BP_SYST 151; BP_DIAS 91; BP_DIAS 92; BP_DIAS 93
--- NOTE | 2016-09-17 22:26 | ECGEPIP ---
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 Electronically Signed On 09-17-2016 22:26:03 EDT by Eric Carrillo
[2016-09-18] MEDS: traZODone 50 MG TAB PO PRN (00:08)
[2016-09-18] MEDS: NS 1,000 ML IV SCH (00:10)
[2016-09-18] MEDS: PERCOCET 5MG/325MG TAB PO PRN ×5 (01:39→23:22)
[2016-09-18 02:00] VITALS: BP_SYST 133; BP_SYST 134; BP_SYST 161; BP_DIAS 83; BP_DIAS 84; BP_DIAS 91
[2016-09-18] MEDS: HEPARIN SOD (PORCINE) 5000 UNITS/ML VIAL SC SCH (05:10)
[2016-09-18 06:00] VITALS: BP 137/87
[2016-09-18] MEDS: MORPHINE 2 MG/ML 1ML SYRINGE IV PRN ×2 (06:19→20:40)
[2016-09-18 06:48] LABS: BASO % 0.6 % (0.0-1.0); EOS # 0.1 K/mm3 (0.0-0.50); EOS % 2.6 % (0.0-3.0); LARGE UNSTAINED CELL # 0.1 K/mm3 (0.0-0.4); LARGE UNSTAINED CELL % 2.3 % (0.0-4.0); LYMPH # 1.3 K/mm3 (1.5-4.5); LYMPH % 30.8 % (24.0-44.0); MEAN CORPUSCULAR HEMOGLOBIN 30.9 pg (27.0-33.0); MEAN CORPUSCULAR HGB CONC 33.9 g/dl (32.0-36.5); MONO # 0.4 K/mm3 (0.0-0.8); MONO % 9.5 % (0.0-5.0); NEUTROPHILS # 2.1 K/mm3 (1.8-7.7); NEUTROPHILS % 54.2 % (36.0-66.0); RED CELL DISTRIBUTION WIDTH 12.4 % (11.5-14.5); WHITE BLOOD COUNT 3.9 K/mm3 (4.0-10.0)
[2016-09-18 07:01] LABS: PLATELET COUNT, AUTOMATED 79 k/mm3 (150-450)
[2016-09-18 07:11] LABS: ANION GAP 6 MEQ/L (8-16); BLOOD UREA NITROGEN 12 MG/DL (7-18); CALCIUM LEVEL 7.7 MG/DL (8.5-10.1); CARBON DIOXIDE LEVEL 27 MEQ/L (21-32); CHLORIDE LEVEL 104 MEQ/L (98-107); CHOLESTEROL LEVEL 119 MG/DL (<200); CREATININE FOR GFR 0.67 MG/DL (0.70-1.30); GLOMERULAR FILTRATION RATE > 60.0 (>56); GLUCOSE, FASTING 243 MG/DL (70-105); MAGNESIUM LEVEL 1.9 MG/DL (1.8-2.4); POTASSIUM SERUM 3.9 MEQ/L (3.5-5.1); SODIUM LEVEL 137 MEQ/L (136-145); TRIGLYCERIDES LEVEL 69 MG/DL (<150)
[2016-09-18] MEDS: HumaLOG INSULIN (NovoLOG) PER UNIT SC SCH ×4 (07:54→21:00)
[2016-09-18] MEDS: ASPIRIN 81 MG ENTERIC TAB PO SCH (08:03)
[2016-09-18] MEDS: DULoxetine 30 MG CAP (CYMBALTA) PO SCH (08:04)
[2016-09-18] MEDS: PREGABALIN 75 MG CAP(LYRICA) PO SCH ×2 (08:05→20:41)
[2016-09-18] MEDS: CitaloPRAM (CeleXA) 20 MG TAB PO SCH (08:05)
[2016-09-18] MEDS: MECLIZINE 25 MG TABLET PO SCH ×2 (08:06→20:41)
[2016-09-18] MEDS: VITAMIN D 1,000 INTERNATIONAL UNITS TABLET PO SCH (08:06)
[2016-09-18] MEDS: OMEPRAZOLE 20 MG CAP PO SCH (08:07)
[2016-09-18] MEDS ORDERED: NS 1,000 ML IV SCH (08:15)
[2016-09-18] MEDS: LISINOPRIL 10 MG TAB PO SCH (08:20)
[2016-09-18 08:38] VITALS: BP_SYST 170; BP_SYST 171; BP_SYST 174; BP_DIAS 100; BP_DIAS 105; BP_DIAS 97
[2016-09-18] MEDS ORDERED: LEVEMIR (INSULIN DETEMIR) 1 UNITS/0.01ML SC SCH (09:00)
[2016-09-18] MEDS: ONDANSETRON 4MG/2ML VIAL (J2405) IV PRN (09:13)
[2016-09-18] MEDS ORDERED: MOM 30ML SUSPENSION UDC PO PRN (09:45)
[2016-09-18 10:00] VITALS: BP 146/72
--- NOTE | 2016-09-18 10:28 | REP ---
CT HEAD WITHOUT CONTRAST: HISTORY: Trauma. COMPARISON: 06/16/2016. A small area of decreased attenuation is present in the posterior right temporal and parietal lobes. This represents an old infarction. An area of decreased attenuation is present in the right thalamus. This represents an old lacunar infarction. Areas of decreased attenuation are present in the periventricular white matter. This represents small vessel ischemic disease. There is no intraparenchymal hemorrhage, mass or midline shift. The ventricular system and cortical sulci are dilated consistent with minimal volume loss. There is no extracerebral collection. There is no fracture. The visualized sinuses are clear. IMPRESSION: 1. Old small right temporoparietal lobe infarction. 2. Old right thalamic lacunar infarction. 3. Small vessel ischemic disease. 4. Minimal volume loss. Signed by Yunier Mckeon MD 09/18/2016 10:34 A
--- NOTE | 2016-09-18 10:29 | REP ---
CT THORACIC SPINE WITHOUT CONTRAST: HISTORY: Thoracic pain. There is no acute fracture or subluxation. There is no definite disc bulge or herniation. The spinal canal and the neural foramina are patent. The intervertebral discs are normal in height. Osteophytes are present in the mid and lower thoracic spine. IMPRESSION: There is no acute fracture or subluxation. Signed by Yunier Mckeon MD 09/18/2016 10:33 A
--- NOTE | 2016-09-18 10:42 | REP ---
CT LUMBAR SPINE WITHOUT CONTRAST: HISTORY: Back pain. COMPARISON: 05/29/2013 A diffuse disc bulge is present at the L1-2 level. There is minimal compression of the thecal sac. The L1 nerves exit the neural foramina without compression. A diffuse disc bulge is present at the L2-3 level. There is hypertrophy of the ligamenta flava and posterior articulating facets. These findings produce minimal central canal stenosis. The L2 nerves exit the neural foramina without compression. A diffuse disc bulge is present at the L3-4 level. There is hypertrophy of the ligamenta flava and posterior articulating facets. These findings produce minimal central canal stenosis. The L3 nerves exit the neural foramina without compression. A diffuse disc bulge is present at the L4-5 level. There is minimal compression of the thecal sac. There is hypertrophy of the posterior articulating facets. The L4 nerves exit the neural foramina without compression. A diffuse disc bulge is present at the L5-S1 level. This abuts the S1 nerves. There is hypertrophy of the posterior articulating facets. The L5 nerves exit the neural foramina without compression. The L3-4 through L5-S1 intervertebral discs are decreased in height, consistent with disc degeneration. There is no subluxation. There are fractures of the right L3 and L4 transverse processes. IMPRESSION: 1. Diffuse disc bulge at the L1-2 and L4-5 levels with minimal thecal sac compression. 2. Minimal central canal stenosis at the L2-3 and L3-4 levels secondary to disc bulge, ligamentous and facet hypertrophy. 3. Diffuse disc bulge at the L5-S1 level. This abuts the S1 nerves. 4. Fractures of the right L3 and L4 transverse processes. Signed by Yunier Mckeon MD 09/18/2016 10:52 A
[2016-09-18] MEDS: DOCUSATE SODIUM 100 MG CAP PO SCH ×2 (12:26→20:41)
[2016-09-18] MEDS: MIRALAX *UNIT DOSE* 17GM PACKET PO SCH ×2 (12:27→20:41)
[2016-09-18] MEDS ORDERED: LORazepam 2 MG/ML VIAL (J2060) IV STA (12:57)
[2016-09-18 14:00] VITALS: BP 141/84
--- NOTE | 2016-09-18 14:28 | REP ---
MR LUMBAR SPINE WITHOUT CONTRAST: HISTORY: Back pain. Comparison CT 09/18/2016. Decreased signal intensity on T2-weighted images is present in the L1-2, L2-3, and L5-S1 intervertebral discs. The L1-2 and L5-S1 intervertebral discs are decreased in height. These findings are consistent with disc degeneration. A diffuse disc bulge is present at the L1-2 level. There is minimal compression of the thecal sac. The L1 nerves exit the neural foramina without compression. A diffuse disc bulge is present at the L2-3 level. There is hypertrophy of the ligamenta flava and posterior articulating facets. These findings produce minimal central canal stenosis. The L2 nerves exit the neural foramina without compression. A diffuse disc bulge is present at the L3-4 level. There is hypertrophy of the ligamenta flava and the posterior articulating facets. These findings produce minimal central canal stenosis. The L3 nerves exit the neural foramina without compression. A diffuse disc bulge is present at the L4-5 level. There is minimal compression of the thecal sac. There is hypertrophy of the posterior articulating facets. The L4 nerves exit the neural foramina without compression. A diffuse disc bulge is present at the L5-S1 level. This abuts the S1 nerves. There is hypertrophy of the posterior articulating facets. The L5 nerves exit the neural foramina without compression. The conus medullaris is normal in appearance terminating at the level of the T12-L1 intervertebral disc. Normal signal intensity is present in the lumbar vertebral bodies. Previously noted right L3 and L4 transverse process fractures are not seen. IMPRESSION: 1. Diffuse disc bulges at the L1-2 and L4-5 levels with minimal thecal sac compression. 2. Minimal central canal stenosis at the L2-3 and L3-4 levels secondary to disc bulge, ligamentous and facet hypertrophy. 3. Diffuse disc bulge at the L5-S1 level. This abuts the S1 nerves. Signed by Yunier Mckeon MD 09/18/2016 02:45 P
[2016-09-18] MEDS: DICLOFENAC EPOLAMINE 1.3 % PATCH TOP SCH ×2 (14:31→21:00)
--- NOTE | 2016-09-18 14:50 | IPNPDOC ---
Text Note Date of Service The patient was seen on 09/18/16. NOTE Subjective: Pt has severe right lower back pain radiating to the flank region. No N/V/abd pain. No hematuria. Objective: Vitals: (see below) General: No acute distress, laying comfortably in bed. HEENT: Moist mucous membranes. Neck: No JVD or lymphadenopathy Cardiac: RRR, No murmurs Pulm: Clear to auscultation b/l. No wheezing, rhonchi Abd: NT/ND + BS Ext: 1+ pitting edema BLE. No cyanosis Back - TTP Lumbar paraspinal/flank region. Mild contusion right flank. Labs (see below) Images: CT Thoracic spine 09/18/16 IMPRESSION: There is no acute fracture or subluxation. CT Lumbar spine 09/18/16 IMPRESSION: 1. Diffuse disc bulge at the L1-2 and L4-5 levels with minimal thecal sac compression. 2. Minimal central canal stenosis at the L2-3 and L3-4 levels secondary to disc bulge, ligamentous and facet hypertrophy. 3. Diffuse disc bulge at the L5-S1 level. This abuts the S1 nerves. 4. Fractures of the right L3 and L4 transverse processes. CT Head 09/18/16 IMPRESSION: 1. Old small right temporoparietal lobe infarction. 2. Old right thalamic lacunar infarction. 3. Small vessel ischemic disease. 4. Minimal volume loss. Assessment/Plan 1. Orthostatic hypotension- likely secondary to dehydration. Resolved. Status post IV fluids. Flomax held. We'll continue to monitor. 2. Fracture of right L3/L4 transverse process status post mechanical fall and trauma while he was in the bathroom. Has significant amount of pain. Discussed Dr. Hernández who does not recommend any neurosurgical intervention however states that we may try an abdominal binder. Pain management consult. MRI lumbar spine pending. 3. Degenerative disc disease, with multiple disc bulging however no significant canal stenosis. Physical therapy. Conservative management. 4. Diabetes mellitus continue insulin 5. Hyperlipidemia- continue statin 6. History of hepatitis C- follows up outpatient with ID 7. Hypertension- controlled continue current meds 8. BPH- Proscar for urine retention. Patient's Flomax was held as it can precipitate orthostatic hypotension. 9. Chronic back pain- continue Lyrica. Pain management consult. 10. History of CVA- on aspirin and statin 11. History of alcohol and opiate abuse. 12. Chronic thrombocytopenia. No bleeding at this time. DVT prophy: SCDs. VS,Fishbone, I+O VS, Fishbone, I+O Laboratory Tests 09/18/16 06:24 Red Blood Count 4.27 L, Mean Corpuscular Volume 91.0, Mean Corpuscular Hemoglobin 30.9, Mean Corpuscular Hemoglobin Concent 33.9, Red Cell Distribution Width 12.4, Neutrophils (%) (Auto) 54.2, Lymphocytes (%) (Auto) 30.8, Monocytes (%) (Auto) 9.5 H, Eosinophils (%) (Auto) 2.6, Basophils (%) ( Auto) 0.6, Neutrophils # (Auto) 2.1, Lymphocytes # (Auto) 1.3 L, Monocytes # ( Auto) 0.4, Eosinophils # (Auto) 0.1, Basophils # (Auto) 0.0 Vital Signs Date Time Temp Pulse Resp B/P Pulse Ox O2 Delivery O2 Flow Rate FiO2 09/18/16 13:12 21 09/18/16 10:00 146/72 09/18/16 08:38 85 94 100 09/18/16 06:00 97.1 95 Room Air I&O- Last 24 Hours up to 6 AM 09/18/16 06:00 Intake Total 1165 ml Output Total 990 ml Balance 175 ml CETOR DOVE MD Sep 18, 2016 14:50
[2016-09-18] MEDS: ATORVASTATIN 10 MG TAB PO SCH (20:41)
[2016-09-18] MEDS: LEVEMIR (INSULIN DETEMIR) 1 UNITS/0.01ML SC SCH (21:00)
[2016-09-18 22:00] VITALS: BP 139/85
[2016-09-19] MEDS: MORPHINE 2 MG/ML 1ML SYRINGE IV PRN ×4 (04:44→22:01)
[2016-09-19 06:00] VITALS: BP_SYST 119; BP_SYST 123; BP_SYST 124; BP_DIAS 86; BP_DIAS 87; BP_DIAS 91
[2016-09-19] MEDS: PERCOCET 5MG/325MG TAB PO PRN ×4 (06:13→20:13)
[2016-09-19 06:41] LABS: BASO % 0.4 % (0.0-1.0); EOS # 0.2 K/mm3 (0.0-0.50); LARGE UNSTAINED CELL # 0.1 K/mm3 (0.0-0.4); LARGE UNSTAINED CELL % 2.6 % (0.0-4.0); LYMPH # 1.4 K/mm3 (1.5-4.5); LYMPH % 28.9 % (24.0-44.0); MEAN CORPUSCULAR HEMOGLOBIN 30.8 pg (27.0-33.0); MEAN CORPUSCULAR HGB CONC 33.7 g/dl (32.0-36.5); MEAN CORPUSCULAR VOLUME 91.4 fl (80.0-96.0); MONO # 0.3 K/mm3 (0.0-0.8); MONO % 6.6 % (0.0-5.0); NEUTROPHILS # 2.9 K/mm3 (1.8-7.7); NEUTROPHILS % 58.6 % (36.0-66.0); RED CELL DISTRIBUTION WIDTH 12.5 % (11.5-14.5); WHITE BLOOD COUNT 4.9 K/mm3 (4.0-10.0)
[2016-09-19 06:42] LABS: PLATELET COUNT, AUTOMATED 82 k/mm3 (150-450)
[2016-09-19 06:55] LABS: ANION GAP 6 MEQ/L (8-16); BLOOD UREA NITROGEN 6 MG/DL (7-18); CALCIUM LEVEL 8.7 MG/DL (8.5-10.1); CARBON DIOXIDE LEVEL 30 MEQ/L (21-32); CHLORIDE LEVEL 101 MEQ/L (98-107); CREATININE FOR GFR 0.59 MG/DL (0.70-1.30); GLOMERULAR FILTRATION RATE > 60.0 (>56); GLUCOSE, FASTING 187 MG/DL (70-105); POTASSIUM SERUM 3.8 MEQ/L (3.5-5.1); SODIUM LEVEL 137 MEQ/L (136-145)
[2016-09-19] MEDS: MECLIZINE 25 MG TABLET PO SCH ×2 (08:16→21:20)
[2016-09-19] MEDS: MIRALAX *UNIT DOSE* 17GM PACKET PO SCH ×2 (08:16→21:20)
[2016-09-19] MEDS: DULoxetine 30 MG CAP (CYMBALTA) PO SCH (08:17)
[2016-09-19] MEDS: DOCUSATE SODIUM 100 MG CAP PO SCH ×2 (08:17→21:20)
[2016-09-19] MEDS: ASPIRIN 81 MG ENTERIC TAB PO SCH (08:19)
[2016-09-19] MEDS: VITAMIN D 1,000 INTERNATIONAL UNITS TABLET PO SCH (08:19)
[2016-09-19] MEDS: CitaloPRAM (CeleXA) 20 MG TAB PO SCH (08:19)
[2016-09-19] MEDS: PREGABALIN 75 MG CAP(LYRICA) PO SCH ×2 (08:19→21:20)
[2016-09-19] MEDS: OMEPRAZOLE 20 MG CAP PO SCH (08:20)
[2016-09-19] MEDS: DICLOFENAC EPOLAMINE 1.3 % PATCH TOP SCH ×2 (08:20→21:20)
[2016-09-19] MEDS: HumaLOG INSULIN (NovoLOG) PER UNIT SC SCH ×4 (08:21→21:10)
[2016-09-19] MEDS: LISINOPRIL 10 MG TAB PO SCH (08:25)
[2016-09-19] MEDS: LEVEMIR (INSULIN DETEMIR) 1 UNITS/0.01ML SC SCH ×2 (08:46→21:21)
[2016-09-19 10:00] VITALS: BP_SYST 135; BP_SYST 159; BP_DIAS 86; BP_DIAS 91; BP_DIAS 97
--- NOTE | 2016-09-19 11:20 | IPNPDOC ---
Text Note Date of Service The patient was seen on 09/19/16. NOTE Subjective: Pt has lower back pain, some improvement. No N/V/abd pain. No hematuria. Objective: Vitals: (see below) General: No acute distress, laying comfortably in bed. HEENT: Moist mucous membranes. Neck: No JVD or lymphadenopathy Cardiac: RRR, No murmurs Pulm: Clear to auscultation b/l. No wheezing, rhonchi Abd: NT/ND + BS Ext: 1+ pitting edema BLE. No cyanosis Back - TTP Lumbar paraspinal/flank region. Mild contusion right flank. Labs (see below) Images: CT Thoracic spine 09/18/16 IMPRESSION: There is no acute fracture or subluxation. CT Lumbar spine 09/18/16 IMPRESSION: 1. Diffuse disc bulge at the L1-2 and L4-5 levels with minimal thecal sac compression. 2. Minimal central canal stenosis at the L2-3 and L3-4 levels secondary to disc bulge, ligamentous and facet hypertrophy. 3. Diffuse disc bulge at the L5-S1 level. This abuts the S1 nerves. 4. Fractures of the right L3 and L4 transverse processes. CT Head 09/18/16 IMPRESSION: 1. Old small right temporoparietal lobe infarction. 2. Old right thalamic lacunar infarction. 3. Small vessel ischemic disease. 4. Minimal volume loss. MRI Lumbar Spine 09/18/16 IMPRESSION: 1. Diffuse disc bulges at the L1-2 and L4-5 levels with minimal thecal sac compression. 2. Minimal central canal stenosis at the L2-3 and L3-4 levels secondary to disc bulge, ligamentous and facet hypertrophy. 3. Diffuse disc bulge at the L5-S1 level. This abuts the S1 nerves. Assessment/Plan 1. Orthostatic hypotension- likely secondary to dehydration. Resolved. Status post IV fluids. Flomax held. We'll continue to monitor. 2. Fracture of right L3/L4 transverse process status post mechanical fall and trauma while he was in the bathroom. Has significant amount of pain. Discussed Dr. Hernández who does not recommend any neurosurgical intervention however states that we may try an abdominal binder. Pain management consult. MRI lumbar spine ( see above). Spoke with Dr. Dias, who states that there is no intervention to be done, and recommends pain control, with an anticipated 6-8 weeks for improvement of symptoms. 3. Degenerative disc disease, with multiple disc bulging however no significant canal stenosis. Physical therapy. Conservative management. 4. Diabetes mellitus continue insulin 5. Hyperlipidemia- continue statin 6. History of hepatitis C- follows up outpatient with ID 7. Hypertension- controlled continue current meds 8. BPH- Proscar for urine retention. Patient's Flomax was held as it can precipitate orthostatic hypotension. 9. Chronic back pain- continue Lyrica. Pain management consult. 10. History of CVA- on aspirin and statin 11. History of alcohol and opiate abuse. 12. Chronic thrombocytopenia. No bleeding at this time. DVT prophy: SCDs. VS,Fishbone, I+O VS, Fishbone, I+O Laboratory Tests 09/19/16 06:10 Calcium Level 8.7, Red Blood Count 4.59, Mean Corpuscular Volume 91.4, Mean Corpuscular Hemoglobin 30.8, Mean Corpuscular Hemoglobin Concent 33.7, Red Cell Distribution Width 12.5, Neutrophils (%) (Auto) 58.6, Lymphocytes (%) (Auto) 28.9, Monocytes (%) (Auto) 6.6 H, Eosinophils (%) (Auto) 3.0, Basophils (%) ( Auto) 0.4, Neutrophils # (Auto) 2.9, Lymphocytes # (Auto) 1.4 L, Monocytes # ( Auto) 0.3, Eosinophils # (Auto) 0.2, Basophils # (Auto) 0.0 Vital Signs Date Time Temp Pulse Resp B/P Pulse Ox O2 Delivery O2 Flow Rate FiO2 09/19/16 10:18 21 09/19/16 10:00 82 159/97 94 135/91 93 135/86 09/18/16 22:00 98.1 95 Room Air I&O- Last 24 Hours up to 6 AM 09/19/16 06:00 Intake Total 3440 ml Output Total 4375 ml Balance -935 ml ECTOR DOVE MD Sep 19, 2016 11:20
[2016-09-19 14:00] VITALS: BP_SYST 116; BP_SYST 132; BP_SYST 133; BP_DIAS 86; BP_DIAS 89; BP_DIAS 93
--- NOTE | 2016-09-19 18:03 | CR ---
DATE OF CONSULTATION: 09/19/2016 REFERRING PROVIDER: Dr Nenita Avila ATTENDING: Dr. Joya CHIEF COMPLAINT: Right low back pain. HISTORY OF PRESENT ILLNESS: Jarrod is a 56-year-old gentleman who fell a few days ago at home getting off of toilet and fell into bathtub sustaining contusion of the right lower back. Long history of chronic back pain. No prior history of back surgeries. Follows with Dr. Leiva as an outpatient at [facility] in [place]. Tells me that he was taken off of OxyContin the beginning of June by primary care. History of multiple suicide attempts. The patient states that they were related to uncontrolled pain. Denies ever abusing narcotic pain medications or using them in an attempt to end his life. History of alcohol abuse. States that when his pain is out of control, he drinks. Reporting poor quality of life since they discontinued OxyContin. States that when he was taking OxyContin 20 mg twice a day and Lyrica 225 mg twice a day 6 months ago for chronic pain, he was able to tolerate activities and enjoy life with only a small amount of chronic pain. Rating pain visual analogue scale (VAS) 5/10. The patient appears comfortable in bed. Grimaces when he moves to a sitting position, but is able to move freely in bed into a sitting position. is at bedside. Denies loss of control of bowel or bladder. Denies recent fever, illness or sudden weight loss. PAST MEDICAL HISTORY: Insulin overdose with history of four suicide attempts. Type 2 diabetes. Alcohol abuse. Atrial fibrillation. Anxiety. Depression. Hypertension. Chronic obstructive pulmonary disease (COPD). Chronic hepatitis C. Cerebrovascular accident in 2008. Degenerative joint disease. Grade 1 diastolic congestive heart failure. SURGICAL HISTORY: Esophagogastroduodenoscopy (EGD), colonoscopy, 2016. Liver biopsy in 2007. Tonsillectomy. FAMILY HISTORY: Father with heart failure, cerebrovascular accident, myocardial infarction (SC), at 78. Mother with heart failure, SC, hypertension, throat cancer, at age 63. One brother alive at 59 with quadruple bypass. Three sons, one daughter, all of whom are healthy. SOCIAL HISTORY: Nonsmoker. Previous heavy alcohol use. Reports using alcohol periodically for pain control. Prior history of drug abuse with opiates. Follows with Dr. Leiva as an outpatient. Multiple admissions to psychiatric unit for major depression with suicidal attempts. Lives at home with his . REVIEW OF SYSTEMS: 11-point review of systems negative except for positive found in HPI. ALLERGIES: DIAZEPAM, TAPE and MIDAZOLAM. PHYSICAL EXAMINATION: Awake, alert, pleasant. No acute distress. Vital Signs: Temperature 97.8, pulse 87, blood pressure 132/89, oxygen saturation is 94% on room air. Cardiac: S1, S2 normal rate and rhythm. Respiratory: Lung sounds are clear. Respirations nonlabored. Neuromuscular: Muscle strength of the upper and lower extremities is 5/5. Reports poor sensation to light touch knee to foot bilaterally with history of diabetic neuropathy. Otherwise lower extremities normal sensation to light touch in the thigh area. No swelling noted. Negative for lymphadenopathy. Inspection of spine: Tenderness over the LS axis. Tenderness noted over the paraspinal, right greater than left. Mild bruising noted right lower lateral rib cage. DIAGNOSTIC DATA: MRI LS spine 09/18/2016: Previously noted right L3-4 transverse process fracture not seen. Diffuse disc bulge at L5-S1, which abuts the S1 nerve. CT of the thoracic dated 09/18/2016: No fracture. Rib x-ray, 09/18/2016: No fracture. ASSESSMENT: 1. Myofascial pain, status post trauma. 2. Chronic low back pain with right leg radiculopathy. PLAN: Would recommend use of short-acting pain medication. Some possibilities are MSIR 15 mg maximum three a day, and this would be per discretion of primary care and Dr. Leiva at [facility]. Recommend continuing pain management as an outpatient with Dr. Leiva. The patient is interested in a second surgical opinion for his lower back. Encourage physical therapy as an outpatient. Had a long discussion with both he and his about the potential dangers of long-acting opioids with his condition. I did inform him that he was high risk due to his suicide attempts, although he tells me that he only attempts suicide when his pain is not managed with oral medications. The patient is attending outpatient psychiatric services, and I recommend that this continues. Thank you for allowing us to participate in the care of your patient. If you have any questions or concerns, please do not hesitate to contact me. Sincerely, Magui Munoz, Family Nurse Practitioner [facility]. Copy to: Dr. Shine YUEN
[2016-09-19] MEDS: ATORVASTATIN 10 MG TAB PO SCH (21:20)
[2016-09-19 22:00] VITALS: BP_SYST 138; BP_SYST 140; BP_SYST 158; BP_SYST 160; BP_DIAS 86; BP_DIAS 94; BP_DIAS 97
[2016-09-19] MEDS: ONDANSETRON 4MG/2ML VIAL (J2405) IV PRN (22:00)
[2016-09-19] MEDS: traZODone 50 MG TAB PO PRN (22:00)
[2016-09-20 02:00] VITALS: BP_SYST 112; BP_SYST 115; BP_SYST 124; BP_DIAS 70; BP_DIAS 78; BP_DIAS 86
[2016-09-20] MEDS: PERCOCET 5MG/325MG TAB PO PRN ×4 (02:20→19:32)
[2016-09-20] MEDS: MORPHINE 2 MG/ML 1ML SYRINGE IV PRN ×4 (05:48→21:21)
[2016-09-20 05:55] LABS: BASO % 0.4 % (0.0-1.0); EOS # 0.1 K/mm3 (0.0-0.50); EOS % 2.8 % (0.0-3.0); LARGE UNSTAINED CELL # 0.2 K/mm3 (0.0-0.4); LARGE UNSTAINED CELL % 4.7 % (0.0-4.0); LYMPH # 1.6 K/mm3 (1.5-4.5); LYMPH % 30.3 % (24.0-44.0); MEAN CORPUSCULAR HEMOGLOBIN 30.9 pg (27.0-33.0); MEAN CORPUSCULAR HGB CONC 33.3 g/dl (32.0-36.5); MEAN CORPUSCULAR VOLUME 92.9 fl (80.0-96.0); MONO # 0.4 K/mm3 (0.0-0.8); MONO % 8.4 % (0.0-5.0); NEUTROPHILS # 2.4 K/mm3 (1.8-7.7); NEUTROPHILS % 53.4 % (36.0-66.0); RED CELL DISTRIBUTION WIDTH 12.4 % (11.5-14.5); WHITE BLOOD COUNT 4.6 K/mm3 (4.0-10.0)
[2016-09-20 05:59] LABS: ANION GAP 8 MEQ/L (8-16); BLOOD UREA NITROGEN 9 MG/DL (7-18); CALCIUM LEVEL 8.5 MG/DL (8.5-10.1); CARBON DIOXIDE LEVEL 32 MEQ/L (21-32); CHLORIDE LEVEL 99 MEQ/L (98-107); CREATININE FOR GFR 0.72 MG/DL (0.70-1.30); GLOMERULAR FILTRATION RATE > 60.0 (>56); GLUCOSE, FASTING 247 MG/DL (70-105); POTASSIUM SERUM 4.4 MEQ/L (3.5-5.1); SODIUM LEVEL 139 MEQ/L (136-145)
[2016-09-20 06:00] VITALS: BP_SYST 102; BP_SYST 105; BP_SYST 125; BP_DIAS 60; BP_DIAS 78; BP_DIAS 82
[2016-09-20 06:09] LABS: PLATELET COUNT, AUTOMATED 90 k/mm3 (150-450)
[2016-09-20] MEDS ORDERED: NS 1,000 ML IV SCH (08:15)
[2016-09-20] MEDS: HumaLOG INSULIN (NovoLOG) PER UNIT SC SCH ×4 (09:09→20:58)
[2016-09-20] MEDS: CitaloPRAM (CeleXA) 20 MG TAB PO SCH (09:09)
[2016-09-20] MEDS: MIRALAX *UNIT DOSE* 17GM PACKET PO SCH ×2 (09:10→21:04)
[2016-09-20] MEDS: MECLIZINE 25 MG TABLET PO SCH ×2 (09:10→21:04)
[2016-09-20] MEDS: DOCUSATE SODIUM 100 MG CAP PO SCH ×2 (09:10→21:04)
[2016-09-20] MEDS: VITAMIN D 1,000 INTERNATIONAL UNITS TABLET PO SCH (09:10)
[2016-09-20] MEDS: PREGABALIN 75 MG CAP(LYRICA) PO SCH ×2 (09:10→21:04)
[2016-09-20] MEDS: ASPIRIN 81 MG ENTERIC TAB PO SCH (09:10)
[2016-09-20] MEDS: DULoxetine 30 MG CAP (CYMBALTA) PO SCH (09:10)
[2016-09-20] MEDS: OMEPRAZOLE 20 MG CAP PO SCH (09:10)
[2016-09-20] MEDS: DICLOFENAC EPOLAMINE 1.3 % PATCH TOP SCH ×2 (09:11→21:21)
[2016-09-20] MEDS: LEVEMIR (INSULIN DETEMIR) 1 UNITS/0.01ML SC SCH ×2 (09:11→21:05)
[2016-09-20] MEDS: LISINOPRIL 10 MG TAB PO SCH (09:14)
--- NOTE | 2016-09-20 13:31 | IPNPDOC ---
Text Note Date of Service The patient was seen on 09/20/16. NOTE Subjective: Pt has lower back pain, some improvement. No N/V/abd pain. No hematuria. Objective: Vitals: (see below) General: No acute distress, laying comfortably in bed. HEENT: Moist mucous membranes. Neck: No JVD or lymphadenopathy Cardiac: RRR, No murmurs Pulm: Clear to auscultation b/l. No wheezing, rhonchi Abd: NT/ND + BS Ext: 1+ pitting edema BLE. No cyanosis Back - TTP Lumbar paraspinal/flank region. Mild contusion right flank. Labs (see below) Images: CT Thoracic spine 09/18/16 IMPRESSION: There is no acute fracture or subluxation. CT Lumbar spine 09/18/16 IMPRESSION: 1. Diffuse disc bulge at the L1-2 and L4-5 levels with minimal thecal sac compression. 2. Minimal central canal stenosis at the L2-3 and L3-4 levels secondary to disc bulge, ligamentous and facet hypertrophy. 3. Diffuse disc bulge at the L5-S1 level. This abuts the S1 nerves. 4. Fractures of the right L3 and L4 transverse processes. CT Head 09/18/16 IMPRESSION: 1. Old small right temporoparietal lobe infarction. 2. Old right thalamic lacunar infarction. 3. Small vessel ischemic disease. 4. Minimal volume loss. MRI Lumbar Spine 09/18/16 IMPRESSION: 1. Diffuse disc bulges at the L1-2 and L4-5 levels with minimal thecal sac compression. 2. Minimal central canal stenosis at the L2-3 and L3-4 levels secondary to disc bulge, ligamentous and facet hypertrophy. 3. Diffuse disc bulge at the L5-S1 level. This abuts the S1 nerves. Assessment/Plan 1. Orthostatic hypotension- likely secondary to dehydration. Resolved. IV fluids. Flomax held. We'll continue to monitor. Patient states he's had this problem for years. Questionable whether this is medication related. We'll order a.m. cortisol level. TSH within normal limits. IV fluids today. If still orthostatic, we'll consider Midodrin. Of note, the patient is also on pain medications for his acute fracture, and these may increase his orthostatic hypotension. 2. Fracture of right L3/L4 transverse process status post mechanical fall and trauma while he was in the bathroom. Has significant amount of pain. Discussed Dr. Hernández who does not recommend any neurosurgical intervention however states that we may try an abdominal binder. Pain management consult. MRI lumbar spine ( see above). Spoke with Dr. Dias, who states that there is no intervention to be done, and recommends pain control, with an anticipated 6-8 weeks for improvement of symptoms. 3. Degenerative disc disease, with multiple disc bulging however no significant canal stenosis. Physical therapy. Conservative management. 4. Diabetes mellitus continue insulin 5. Hyperlipidemia- continue statin 6. History of hepatitis C- follows up outpatient with ID 7. Hypertension- controlled continue current meds 8. BPH- Proscar for urine retention. Patient's Flomax was held as it can precipitate orthostatic hypotension. 9. Chronic back pain- continue Lyrica. Pain management consulted. Patient follows up with Dr. Cali smith. 10. History of CVA- on aspirin and statin 11. History of alcohol and opiate abuse. 12. Chronic thrombocytopenia. No bleeding at this time. DVT prophy: SCDs. VS,Fishbone, I+O VS, Fishbone, I+O Laboratory Tests 09/20/16 05:30 Calcium Level 8.5, Red Blood Count 4.47, Mean Corpuscular Volume 92.9, Mean Corpuscular Hemoglobin 30.9, Mean Corpuscular Hemoglobin Concent 33.3, Red Cell Distribution Width 12.4, Neutrophils (%) (Auto) 53.4, Lymphocytes (%) (Auto) 30.3, Monocytes (%) (Auto) 8.4 H, Eosinophils (%) (Auto) 2.8, Basophils (%) ( Auto) 0.4, Neutrophils # (Auto) 2.4, Lymphocytes # (Auto) 1.6, Monocytes # (Auto ) 0.4, Eosinophils # (Auto) 0.1, Basophils # (Auto) 0.0 Vital Signs Date Time Temp Pulse Resp B/P Pulse Ox O2 Delivery O2 Flow Rate FiO2 09/20/16 12:11 18 09/20/16 10:13 Room Air 09/20/16 09:14 118/83 09/20/16 06:00 97 101 108 09/19/16 22:00 96.4 97 I&O- Last 24 Hours up to 6 AM 09/20/16 06:00 Intake Total 4040 ml Output Total 2225 ml Balance 1815 ml ECTOR DOVE MD Sep 20, 2016 13:31
[2016-09-20 14:00] VITALS: BP_SYST 133; BP_SYST 134; BP_SYST 135; BP_DIAS 87; BP_DIAS 90; BP_DIAS 91
[2016-09-20] MEDS: ATORVASTATIN 10 MG TAB PO SCH (21:04)
[2016-09-20 22:00] VITALS: BP_SYST 131; BP_SYST 140; BP_SYST 153; BP_DIAS 81; BP_DIAS 89; BP_DIAS 94
[2016-09-21] MEDS: PERCOCET 5MG/325MG TAB PO PRN ×2 (01:36→11:14)
[2016-09-21] MEDS: MORPHINE 2 MG/ML 1ML SYRINGE IV PRN ×2 (04:06→08:25)
[2016-09-21 06:00] VITALS: BP_SYST 126; BP_SYST 128; BP_SYST 129; BP_DIAS 74; BP_DIAS 85; BP_DIAS 93
[2016-09-21 06:45] LABS: BASO % 0.4 % (0.0-1.0); EOS # 0.2 K/mm3 (0.0-0.50); EOS % 3.3 % (0.0-3.0); LARGE UNSTAINED CELL # 0.2 K/mm3 (0.0-0.4); LARGE UNSTAINED CELL % 4.6 % (0.0-4.0); LYMPH # 1.5 K/mm3 (1.5-4.5); LYMPH % 30.1 % (24.0-44.0); MEAN CORPUSCULAR HEMOGLOBIN 30.7 pg (27.0-33.0); MEAN CORPUSCULAR HGB CONC 33.1 g/dl (32.0-36.5); MEAN CORPUSCULAR VOLUME 92.7 fl (80.0-96.0); MONO # 0.4 K/mm3 (0.0-0.8); MONO % 8.2 % (0.0-5.0); NEUTROPHILS # 2.3 K/mm3 (1.8-7.7); NEUTROPHILS % 53.4 % (36.0-66.0); RED CELL DISTRIBUTION WIDTH 12.7 % (11.5-14.5); WHITE BLOOD COUNT 4.4 K/mm3 (4.0-10.0)
[2016-09-21 06:47] LABS: PLATELET COUNT, AUTOMATED 94 k/mm3 (150-450)
[2016-09-21 06:55] LABS: ANION GAP 7 MEQ/L (8-16); BLOOD UREA NITROGEN 8 MG/DL (7-18); CALCIUM LEVEL 8.3 MG/DL (8.5-10.1); CARBON DIOXIDE LEVEL 27 MEQ/L (21-32); CHLORIDE LEVEL 102 MEQ/L (98-107); CREATININE FOR GFR 0.55 MG/DL (0.70-1.30); GLOMERULAR FILTRATION RATE > 60.0 (>56); GLUCOSE, FASTING 209 MG/DL (70-105); SODIUM LEVEL 136 MEQ/L (136-145)
[2016-09-21] MEDS: HumaLOG INSULIN (NovoLOG) PER UNIT SC SCH ×2 (08:23→12:36)
[2016-09-21] MEDS: MIRALAX *UNIT DOSE* 17GM PACKET PO SCH (08:24)
[2016-09-21] MEDS: LEVEMIR (INSULIN DETEMIR) 1 UNITS/0.01ML SC SCH (08:24)
[2016-09-21] MEDS: DOCUSATE SODIUM 100 MG CAP PO SCH (08:25)
[2016-09-21] MEDS: DULoxetine 30 MG CAP (CYMBALTA) PO SCH (08:25)
[2016-09-21] MEDS: PREGABALIN 75 MG CAP(LYRICA) PO SCH (08:25)
[2016-09-21] MEDS: DICLOFENAC EPOLAMINE 1.3 % PATCH TOP SCH (08:25)
[2016-09-21] MEDS: MECLIZINE 25 MG TABLET PO SCH (08:26)
[2016-09-21] MEDS: VITAMIN D 1,000 INTERNATIONAL UNITS TABLET PO SCH (08:26)
[2016-09-21] MEDS: ASPIRIN 81 MG ENTERIC TAB PO SCH (08:26)
[2016-09-21] MEDS: CitaloPRAM (CeleXA) 20 MG TAB PO SCH (08:26)
[2016-09-21] MEDS: OMEPRAZOLE 20 MG CAP PO SCH (08:26)
[2016-09-21 08:31] VITALS: BP 127/87
[2016-09-21] MEDS: LISINOPRIL 10 MG TAB PO SCH (08:31)
[2016-09-21 10:00] VITALS: BP_SYST 136; BP_SYST 142; BP_SYST 150; BP_DIAS 86; BP_DIAS 93; BP_DIAS 97
--- NOTE | 2016-09-21 12:23 | REP ---
RIGHT UPPER EXTREMITY NONVASCULAR ULTRASOUND: 09/21/2016. Clinical history: Previously with IV in the right arm, now erythematous and with bruising; evaluate for fluid collection or abscess. Findings: No prior study. The ventral aspect of the forearm in the region of erythema and bruising shows some mild edema subcutaneous tissues. There is no fluid collection or abscess involved in that portion of the arm. Color flow shows patency of the veins. No abnormality suggested in the underlying muscle layer. Impression: 1. No fluid collection or abscess evident in the subcutaneous soft tissues of the forearm in the region of the patient's erythema. Some edema is evident. No drainable fluid collection. The subcutaneous veins show color flow. Signed by Vikas Winn MD 09/21/2016 07:30 P
[2016-09-21] MEDS ORDERED: INSUDET SC (13:04)
[2016-09-21] MEDS ORDERED: MSIR30TA PO (13:04)
[2016-09-21] MEDS ORDERED: MORPHINE 30 MG TAB **MSIR PO PRN (13:15)
--- NOTE | 2016-09-21 14:42 | DS.PDOC ---
Discharge Summary General Date of Admission Sep 19, 2016 at 09:45 Date of Discharge 09/21/16 Attending Physician: ECTOR DOVE MD Specialist/Consultants Involve: CURLY OROZCO MD Discharge Summary PROCEDURES PERFORMED DURING STAY: None. ADMITTING/DISCHARGE DIAGNOSES: 1. Orthostatic hypotension -->Syncope 2. L3/L4 Transverse process Fx 3. Type 2 diabetes. 4. H/o Alcohol abuse. 5. History of atrial fibrillation. 6. Anxiety. 7. H/o Severe depression w/ Insulin overdose - four suicide attempts. 8. Hypertension. 9. COPD. 10. Chronic hepatitis C. 11. History of CVA in 2008, with no residual effects. 12. Degenerative joint disease, Dupuytren's contractures hands and feet. 13. Adjustment disorder with mixed anxiety and depression. 14. Grade 1 diastolic congestive heart failure (CHF). COMPLICATIONS/CHIEF COMPLAINT: Othostatic Hypotension. HISTORY OF PRESENT ILLNESS/HOSPITAL COURSE: This is a 48-year-old male with an extensive past medical history who presents status post fall. The patient was in the bathroom and had fallen upon standing up, striking the right side of his back onto the side of the bathtub. Patient also noted that he did hit his head as well, however denied headache or focal deficits. The patient was noted to be orthostatic, with a negative CT of the head. Upon further evaluation patient did have a significant lumbar pain for which a CT lumbar spine was ordered noting L3/L4 transverse process fracture. MRI of the lumbar spine negative. I did speak to Dr. Orozco as well as Dr. Dias both stated that no surgical intervention is indicated. Pain control as well as abdominal binder and physical therapy were recommended. Pain management was consulted and recommended MSIR maximal 15 mg 3 times a day as needed for pain. Dr. Dias also noted that the patient will likely have pain for the next 6-8 weeks, and that care should be taken with his opioid medications. I have discussed this with the patient, and the patient will be following up with Dr. Leiva in a week. At this time the patient is mobile and is hemodynamically stable. His orthostatics are negative. He did have an IV that was removed from his right forearm and developed a contusion at the site. An ultrasound did not note any fluid collection or hematoma. The patient was encouraged to monitor the site and see his primary care physician or return to the emergency department if the area worsens. DISCHARGE MEDICATIONS: Please see below. ALLERGIES: Please see below. PHYSICAL EXAMINATION ON DISCHARGE: Vitals: (see below) General: No acute distress, laying comfortably in bed. HEENT: Moist mucous membranes. Neck: No JVD or lymphadenopathy Cardiac: RRR, No murmurs Pulm: Clear to auscultation b/l. No wheezing, rhonchi Abd: NT/ND + BS Ext: 1+ pitting edema BLE. No cyanosis. Right forearm with contusion. Distal pulses intact. Strength 5 out of 5. No active bleeding. No erythema or induration. Back - TTP Lumbar paraspinal/flank region. Mild contusion right flank. LABORATORY DATA: Please see below. IMAGING: CT Thoracic spine 09/18/16 IMPRESSION: There is no acute fracture or subluxation. CT Lumbar spine 09/18/16 IMPRESSION: 1. Diffuse disc bulge at the L1-2 and L4-5 levels with minimal thecal sac compression. 2. Minimal central canal stenosis at the L2-3 and L3-4 levels secondary to disc bulge, ligamentous and facet hypertrophy. 3. Diffuse disc bulge at the L5-S1 level. This abuts the S1 nerves. 4. Fractures of the right L3 and L4 transverse processes. CT Head 09/18/16 IMPRESSION: 1. Old small right temporoparietal lobe infarction. 2. Old right thalamic lacunar infarction. 3. Small vessel ischemic disease. 4. Minimal volume loss. MRI Lumbar Spine 09/18/16 IMPRESSION: 1. Diffuse disc bulges at the L1-2 and L4-5 levels with minimal thecal sac compression. 2. Minimal central canal stenosis at the L2-3 and L3-4 levels secondary to disc bulge, ligamentous and facet hypertrophy. 3. Diffuse disc bulge at the L5-S1 level. This abuts the S1 nerves. PROGNOSIS: Fair ACTIVITY: As tolerated. DIET: as tolerated DISCHARGE PLAN/DISPOSITION: D/c home with home health/PT DISCHARGE INSTRUCTIONS: 1. F/u with PCP and Dr. Leiva in 1-2 weeks. Home care/home PT. DISCHARGE CONDITION: Stable. TIME SPENT ON DISCHARGE: Greater than 30 minutes. Vital Signs/I&Os Vital Signs Date Time Temp Pulse Resp B/P Pulse Ox O2 Delivery O2 Flow Rate FiO2 09/21/16 12:10 18 09/21/16 10:00 89 142/97 95 150/93 100 136/86 09/21/16 08:30 Room Air 09/21/16 06:00 98.1 97 I&O- Last 24 Hours up to 6 AM 09/21/16 06:00 Intake Total 2520 ml Output Total 3200 ml Balance -680 ml Laboratory Data Labs 24H Laboratory Tests 2 09/20/16 16:49: Bedside Glucose (Misc Panel) 210H 09/20/16 20:30: Bedside Glucose (Misc Panel) 210H 09/21/16 05:47: Anion Gap 7L, Blood Urea Nitrogen 8, Creatinine 0.55L, Sodium Level 136, Potassium Level 4.0, Chloride Level 102, Carbon Dioxide Level 27, Calcium Level 8.3L, Glomerular Filtration Rate > 60.0 09/21/16 05:51: White Blood Count 4.4, Red Blood Count 4.28L, Hemoglobin 13.2L, Hematocrit 39.7L , Mean Corpuscular Volume 92.7, Mean Corpuscular Hemoglobin 30.7, Mean Corpuscular Hemoglobin Concent 33.1, Red Cell Distribution Width 12.7, Platelet Count 94L, Neutrophils (%) (Auto) 53.4, Lymphocytes (%) (Auto) 30.1, Monocytes ( %) (Auto) 8.2H, Eosinophils (%) (Auto) 3.3H, Basophils (%) (Auto) 0.4, Neutrophils # (Auto) 2.3, Lymphocytes # (Auto) 1.5, Monocytes # (Auto) 0.4, Eosinophils # (Auto) 0.2, Basophils # (Auto) 0.0, Large Unclassified Cells # 0.2 , Large Unclassified Cells % 4.6H 09/21/16 06:50: 09/21/16 10:54: Urine Amorphous Sediment , Urine Appearance CLEAR, Urine Color YELLOW, Urine pH 6.0, Urine Specific [place] 1.028, Urine Protein 1+H, Urine Glucose (UA) 3+H, Urine Ketones TRACEH, Urine Urobilinogen 4.0H, Urine Bilirubin NEGATIVE, Urine Leukocyte Esterase NEGATIVE, Urine Bacteria (Auto) NEGATIVE, Urine Blood 1+H, Urine Calcium Carbonate Cryst(Auto) , Urine Calcium Oxalate Cryst (Auto) , Urine Calcium Phosphate Genny (Auto) , Urine Cellular Casts , Urine Cystine Crystals , Urine Granular Casts (Auto) , Urine Hyaline Casts (Auto) 3, Urine Leucine Crystals , Urine Mucus (Auto) SMALL, Urine Nitrite NEGATIVE, Urine Oval Fat Bodies (Auto) , Urine RBC (Auto) 6H, Urine Renal Epithelial Cells , Urine Sperm (Auto) , Urine Squamous Epithelial Cells 0, Urine Transitional Epithelial Cells , Urine Trichomonas (Auto) , Urine Triple Phosphate Cryst (Auto) , Urine Tyrosine Crystals , Urine Uric Acid Crystals (Auto) , Urine WBC (Auto) 0, Urine Waxy Casts (Auto) , Urine Yeast-Like Cells (Auto) CBC/BMP Laboratory Tests 09/21/16 05:47 Calcium Level 8.3 L 09/21/16 05:51 Red Blood Count 4.28 L, Mean Corpuscular Volume 92.7, Mean Corpuscular Hemoglobin 30.7, Mean Corpuscular Hemoglobin Concent 33.1, Red Cell Distribution Width 12.7, Neutrophils (%) (Auto) 53.4, Lymphocytes (%) (Auto) 30.1, Monocytes (%) (Auto) 8.2 H, Eosinophils (%) (Auto) 3.3 H, Basophils (%) ( Auto) 0.4, Neutrophils # (Auto) 2.3, Lymphocytes # (Auto) 1.5, Monocytes # (Auto ) 0.4, Eosinophils # (Auto) 0.2, Basophils # (Auto) 0.0 FSBS Laboratory Tests Test 09/20/16 16:49 09/20/16 20:30 Range/Units Bedside Glucose (Misc Panel) 210 210 70-105 MG/DL Microbiology Microbiology 09/17/16 Urine Culture - Final, Complete Discharge Medications Scheduled Aspirin (Aspirin EC) 81 Mg Tabec 81 MG PO DAILY (Reported) Atorvastatin Calcium (Atorvastatin Calcium) 10 Mg Tab 10 MG PO QHS (Reported) LAST FILL 07/10/16 FOR 30 DAYS Cholecalciferol (Vitamin D) 1,000 Unit Tab 1,000 UNIT PO DAILY (Reported) Citalopram Hydrobromide (Citalopram Hydrobromide) 20 Mg Tab 20 MG PO DAILY ( Reported) Duloxetine Hcl (Cymbalta) 60 Mg Cap 60 MG PO DAILY (Reported) Insulin Detemir (Levemir) 1 Units/0.01 Ml Susp 30 UNITS SC QAM Insulin Human Lispro (Humalog) 1 Units/0.01 Ml Inj 1 DOSE SC ACHS (Reported) Omeprazole (Omeprazole) 20 Mg Cap 20 MG PO DAILY (Reported) Pregabalin (Lyrica) 225 Mg Cap 225 MG PO BID (Reported) UNSURE IF PATIENT IS TAKING - LAST FILLED 07/28/16 FOR 7 DAYS Scheduled PRN (Bengay Greaseless 10-15 %) 1 Cre Cre 1 CRE EXT BIDP PRN PRN PAIN (Reported) Morphine Sulfate (Morphine Sulfate) 30 Mg Tab 15 MG PO TIDP PRN PRN SEVERE PAIN (PS 8-10) Trazodone HCl (Trazodone HCl) 150 Mg Tab 150 MG PO QHS PRN PRN SLEEP (Reported) Allergies Coded Allergies: Diazepam (Verified Allergy, Unknown, 09/18/16) TAKES LORAZEPAM WITH NO ISSUES TAPE (Verified Allergy, Unknown, 12/02/13) Midazolam (Verified Adverse Reaction, Intermediate, "GO CRAZY", 02/15/13) ECTOR DOVE MD Sep 21, 2016 14:42
== END 2016-09-21 14:52 | disposition home health service (06) | DRG 204 ==
LOC: EDBD 11:19 → M ED 11:38 → M ED INP 16:24 → M MSPAV 17:25 → OBSVTOIN 09-19 09:45
PROVIDERS: ADMIT General Practice; ATTEND Internal Medicine
DX: I95.1 Orthostatic hypotension (principal); S32.038A Other fracture of third lumbar vertebra, initial encounter for closed fracture; I50.30 Unspecified diastolic (congestive) heart failure; S32.048A Other fracture of fourth lumbar vertebra, initial encounter for closed fracture; D69.6 Thrombocytopenia, unspecified; J44.9 Chronic obstructive pulmonary disease, unspecified; E11.9 Type 2 diabetes mellitus without complications; I48.91 Unspecified atrial fibrillation; F43.23 Adjustment disorder with mixed anxiety and depressed mood; S50.11XA Contusion of right forearm, initial encounter; I10 Essential (primary) hypertension; N40.1 Benign prostatic hyperplasia with lower urinary tract symptoms; E78.5 Hyperlipidemia, unspecified; M54.9 Dorsalgia, unspecified; M79.1 Myalgia; M51.26 Other intervertebral disc displacement, lumbar region; M51.17 Intervertebral disc disorders with radiculopathy, lumbosacral region; M72.0 Palmar fascial fibromatosis [Dupuytren]; B18.2 Chronic viral hepatitis C; F10.21 Alcohol dependence, in remission; W18.2XXA Fall in (into) shower or empty bathtub, initial encounter; Y92.012 Bathroom of single-family (private) house as the place of occurrence of the external cause; Y93.E1 Activity, personal bathing and showering; Y99.9 Unspecified external cause status; Z86.73 Personal history of transient ischemic attack (TIA), and cerebral infarction without residual deficits; Z91.5 Personal history of self-harm; Z82.49 Family history of ischemic heart disease and other diseases of the circulatory system; Z79.82 Long term (current) use of aspirin; Z79.4 Long term (current) use of insulin; Z88.8 Allergy status to other drugs, medicaments and biological substances; Z91.048 Other nonmedicinal substance allergy status

== ENCOUNTER 2016-10-08 12:22 | Emergency (ER) | payer MEDICAID ==
[~2016-10-08] VITALS: Ht 180.3 cm; Wt 87.1 kg
[~2016-10-08 12:22] MED LIST changes: +MSIR30TA PO; +PATIENT COMMENT; +TRAZ150T14 PO
[2016-10-08] MEDS ORDERED: TIZA4CAP3 PO (12:34)
[2016-10-08] MEDS ORDERED: PERC5TAB6 PO (14:35)
[2016-10-08 14:50] VITALS: BP 105/68
== END 2016-10-08 15:16 | disposition home or self-care (01) ==
LOC: M ED 15:05
DX: M54.9 Dorsalgia, unspecified (principal); E11.9 Type 2 diabetes mellitus without complications; E03.9 Hypothyroidism, unspecified; K74.60 Unspecified cirrhosis of liver; Z86.73 Personal history of transient ischemic attack (TIA), and cerebral infarction without residual deficits; M51.9 Unspecified thoracic, thoracolumbar and lumbosacral intervertebral disc disorder; Z88.8 Allergy status to other drugs, medicaments and biological substances

== ENCOUNTER 2016-11-08 01:35 | Emergency (ER) | payer MEDICAID ==
[~2016-11-08 01:35] MED LIST changes: +PERC5TAB6 PO; +TIZA4CAP3 PO
[2016-11-08] MEDS ORDERED: CARA1TAB2 PO (01:50)
[2016-11-08 02:24] LABS: BASO % 0.5 % (0.0-1.0); EOS # 0.1 K/mm3 (0.0-0.50); EOS % 1.9 % (0.0-3.0); LARGE UNSTAINED CELL # 0.2 K/mm3 (0.0-0.4); LARGE UNSTAINED CELL % 2.8 % (0.0-4.0); LYMPH # 2.7 K/mm3 (1.5-4.5); LYMPH % 34.9 % (24.0-44.0); MEAN CORPUSCULAR HGB CONC 34.6 g/dl (32.0-36.5); MEAN CORPUSCULAR VOLUME 92.5 fl (80.0-96.0); MONO # 0.5 K/mm3 (0.0-0.8); MONO % 7.4 % (0.0-5.0); NEUTROPHILS # 3.8 K/mm3 (1.8-7.7); NEUTROPHILS % 52.5 % (36.0-66.0); PLATELET COUNT, AUTOMATED 158 k/mm3 (150-450); WHITE BLOOD COUNT 7.2 K/mm3 (4.0-10.0)
[2016-11-08 02:57] LABS: ALBUMIN 3.9 GM/DL (3.2-5.2); ALBUMIN/GLOBULIN RATIO 1.22 (1.00-1.93); ALKALINE PHOSPHATASE 76 U/L (45-117); ALT/SGPT 60 U/L (12-78); AMYLASE 194 U/L (25-115); ANION GAP 13 MEQ/L (8-16); AST/SGOT 41 U/L (15-37); BILIRUBIN,DIRECT 0.2 MG/DL (0.0-0.2); BILIRUBIN,TOTAL 0.5 MG/DL (0.2-1.0); BLOOD UREA NITROGEN 7 MG/DL (7-18); CALCIUM LEVEL 8.6 MG/DL (8.5-10.1); CARBON DIOXIDE LEVEL 26 MEQ/L (21-32); CHLORIDE LEVEL 100 MEQ/L (98-107); CREATININE FOR GFR 0.65 MG/DL (0.70-1.30); GLOMERULAR FILTRATION RATE > 60.0 (>56); GLUCOSE, FASTING 273 MG/DL (70-105); POTASSIUM SERUM 3.7 MEQ/L (3.5-5.1); SODIUM LEVEL 139 MEQ/L (136-145); TOTAL PROTEIN 7.1 GM/DL (6.4-8.2)
[2016-11-08] MEDS ORDERED: NS 1,000 ML IV ONE (03:15)
[2016-11-08] MEDS ORDERED: ISOVUE-370 76% 100ML VIAL (Q9967) As Ordered ONE (03:17)
[2016-11-08] MEDS ORDERED: HALOPERIDOL 5 MG/ML VIAL (J1630) IV STA (04:07)
[2016-11-08] MEDS ORDERED: MORPHINE 2 MG/ML 1ML SYRINGE IV ONE (04:15)
[2016-11-08] MEDS ORDERED: diphenhydrAMINE INJ 50MG/ML VIAL (J1200) IV ONE (04:15)
--- NOTE | 2016-11-08 04:50 | REPUSA ---
CLINICAL HISTORY: Abdominal pain. TECHNIQUE: Multiple axial, sagittal and coronal CT images were obtained through the abdomen and pelvi s after administration of intravenous contrast material. COMMENTS: Comparison is made to prior exam performed on 09/17/2016. The liver is of irregular contour without mass or defect. There is no intra or extrahepatic biliary d uctal dilatation. The spleen is normal. The gallbladder is within normal limits. The pancreas is of n ormal contour and attenuation characteristics. There is no evidence of adrenal mass. Both kidneys demonstrate prompt and equal nephrograms. The kidneys are normal in size, shape and conf iguration. There is no evidence of renal or ureteral mass. No renal or ureteral calculi are identifie d. There is no hydroureter or hydronephrosis. No evidence for appendicitis. There is no bowel wall thickening. No evidence for small or large ricardo l obstruction. There is no evidence of abdominal ascites or lymphadenopathy. There is no evidence of intrinsic or extrinsic bladder mass. There is no pelvic ascites or lymphadeno alex. Images of the lung bases show no evidence of pleural or parenchymal mass. There are no pleural effusi ons. The bony structures are free of lytic or blastic lesions. Multilevel degenerative changes are seen in volving the thoracolumbar spine. Scattered calcifications are seen involving the aorta and major bran ches compatible with atherosclerosis. IMPRESSION: Liver cirrhosis is unchanged. No acute pathology. Thank you for your kind referral of this patient.
[2016-11-08 05:22] VITALS: BP 138/83
--- NOTE | 2016-11-08 07:24 | ECGEPIP ---
Stationary ECG Study [facility] - ED Test Date: 2016-11-08 Pat Name: JUANA ROMEO Department: Room: - Gender: M Daycare Provider: : 1960 Requested By: DANI MCGARRY Order Number: [id number] Reading MD: Ina Shirley Measurements Intervals [place]bins Rate: 96 P: 19 NC: 159 QRS: -18 QRSD: 81 T: 49 QT: 344 QTc: 435 Interpretive Statements SINUS RHYTHM SIMILAR 09/17/16 Electronically Signed On 11-08-2016 7:23:37 EDT by Ina Shirley
== END 2016-11-08 05:25 | disposition home or self-care (01) ==
LOC: EDBD 01:35 → M ED 05:14
DX: K74.60 Unspecified cirrhosis of liver (principal); R10.9 Unspecified abdominal pain; F10.20 Alcohol dependence, uncomplicated; B19.9 Unspecified viral hepatitis without hepatic coma; E11.9 Type 2 diabetes mellitus without complications; E78.5 Hyperlipidemia, unspecified; K21.9 Gastro-esophageal reflux disease without esophagitis; F32.9 Major depressive disorder, single episode, unspecified; Z87.891 Personal history of nicotine dependence; Z79.4 Long term (current) use of insulin; Z79.899 Other long term (current) drug therapy; Z88.8 Allergy status to other drugs, medicaments and biological substances; Z91.09 Other allergy status, other than to drugs and biological substances
CPT/HCPCS: 74177; 80048; 80076; 82150; 82550; 82553; 83690; 85025; 93005; 96374; 96375; 99284; J1200; J1630; Q9967

== ENCOUNTER 2016-11-15 15:16 | Inpatient (IN) | payer MEDICAID ==
[~2016-11-15] VITALS: Ht 180.3 cm; Wt 88.5 kg
[2016-11-15] MEDS ORDERED: diazePAM 5 MG TAB PO ONE ×2 (15:45→16:00)
[2016-11-15] MEDS ORDERED: CYCLOBENZAPRINE 10 MG TAB PO ONE (15:45)
[2016-11-15] MEDS ORDERED: KETOROLAC 60 MG/2 ML VIAL (J1885) IM ONE (16:00)
[2016-11-15] MEDS ORDERED: ACETAMINOPHEN 325 MG TAB PO ONE (16:00)
[2016-11-15] MEDS ORDERED: LR 1,000 ML IV ONE ×2 (16:30→18:30)
[2016-11-15 16:36] LABS: BASO % 0.3 % (0.0-1.0); EOS # 0.2 K/mm3 (0.0-0.50); EOS % 1.1 % (0.0-3.0); LARGE UNSTAINED CELL # 0.4 K/mm3 (0.0-0.4); LARGE UNSTAINED CELL % 2.4 % (0.0-4.0); LYMPH # 2.6 K/mm3 (1.5-4.5); LYMPH % 14.8 % (24.0-44.0); MEAN CORPUSCULAR HEMOGLOBIN 32.5 pg (27.0-33.0); MEAN CORPUSCULAR HGB CONC 35.1 g/dl (32.0-36.5); MEAN CORPUSCULAR VOLUME 92.7 fl (80.0-96.0); MONO # 1.4 K/mm3 (0.0-0.8); MONO % 9.1 % (0.0-5.0); NEUTROPHILS # 11.1 K/mm3 (1.8-7.7); NEUTROPHILS % 72.3 % (36.0-66.0); PLATELET COUNT, AUTOMATED 165 k/mm3 (150-450); RED CELL DISTRIBUTION WIDTH 13.3 % (11.5-14.5); WHITE BLOOD COUNT 15.3 K/mm3 (4.0-10.0)
[2016-11-15] MEDS ORDERED: PERCOCET 5MG/325MG TAB PO ONE ×2 (16:45→21:00)
--- NOTE | 2016-11-15 16:47 | REP ---
Chest two views HISTORY: Pneumonia Comparison: 09/17/2016 The lungs are clear. The heart is normal in size. The pulmonary vasculature is normal in appearance. The bony structure is intact. IMPRESSION: No acute disease. Signed by Yunier Mckeon MD 11/15/2016 04:39 P
[2016-11-15 17:23] LABS: METHADONE URINE NEGATIVE (NEGATIVE)
[2016-11-15 18:25] LABS: ANION GAP 17 MEQ/L (8-16); BLOOD UREA NITROGEN 12 MG/DL (7-18); CARBON DIOXIDE LEVEL 17 MEQ/L (21-32); CHLORIDE LEVEL 103 MEQ/L (98-107); CREATININE FOR GFR 0.73 MG/DL (0.70-1.30); GLOMERULAR FILTRATION RATE > 60.0 (>56); GLUCOSE, FASTING 308 MG/DL (70-105); POTASSIUM SERUM 4.4 MEQ/L (3.5-5.1); SODIUM LEVEL 137 MEQ/L (136-145)
[2016-11-15] MEDS: SUCRALFATE 1 GM TAB PO SCH (21:00)
[2016-11-15] MEDS ORDERED: BISACODYL 5 MG TAB PO PRN (21:45)
[2016-11-15] MEDS ORDERED: GLUCAGON FOR INJ 1 MG VIAL (J1610) SC PRN (21:45)
[2016-11-15] MEDS ORDERED: ANALGESIC BALM CRM 120 GM EXT PRN (21:45)
[2016-11-15] MEDS ORDERED: GLUCOSE 4 GM CHEW TABLET PO PRN (21:45)
[2016-11-15] MEDS: NS 1,000 ML IV SCH (21:45)
[2016-11-15] MEDS ORDERED: DEXTROSE 50% 50 ML SYRINGE IV PRN (21:45)
[2016-11-15] MEDS ORDERED: IPRATROPIUM 0.5MG/ALBUTEROL 2.5MG INH SOL UD 3ML (DUONEB)(J7620) NEB PRN (22:00)
[2016-11-15] MEDS ORDERED: INSUDET SC (22:08)
[2016-11-15] MEDS ORDERED: TIZA2TA PO (22:10)
[2016-11-15] MEDS ORDERED: INSULADS SC (22:10)
[2016-11-15] MEDS ORDERED: FLOM5CAP PO (22:10)
--- NOTE | 2016-11-15 22:10 | REPUSA ---
CT of the head Clinical history: fall. Technique: Multiple axial CT images were obtained through the head without administration of contrast . Comparison: 09/18/2016. Findings: The ventricles and sulci are symmetric bilaterally. There is no evidence of acute hemorrhag e or infarct. There is no midline shift, mass effect, or extra-axial fluid collection. The osseous st ructures are unremarkable. The visualized paranasal sinuses and mastoid air cells are clear. Impression: Negative study.
[2016-11-15] MEDS: CEFEPIME HCL 2 GM in D5W MINI-BAG PLUS 50 ML IV SCH (23:00)
[2016-11-16] MEDS: traZODone 50 MG TAB PO PRN ×2 (00:01→20:48)
[2016-11-16] MEDS ORDERED: ISOVUE-370 76% 100ML VIAL (Q9967) As Ordered ONE (00:04)
[2016-11-16 00:30] VITALS: BP 148/76
[2016-11-16] MEDS ORDERED: PERCOCET 5MG/325MG TAB PO ONE (00:45)
[2016-11-16] MEDS: IPRATROPIUM 0.5MG/ALBUTEROL 2.5MG INH SOL UD 3ML (DUONEB)(J7620) NEB SCH ×4 (01:08→20:00)
--- NOTE | 2016-11-16 01:40 | REPUSA ---
CT angiogram of the chest Clinical statement: trauma. Technique: Multiple axial CT images were obtained from the thoracic inlet through the upper abdomen a fter a bolus administration of nonionic intravenous contrast. Coronal and sagittal reconstructions we re also obtained. Comparison: None. Findings: The pulmonary arteries are poorly with contrast. No intraluminal filling defects are demons trated to suggest embolism. The thoracic aorta is unremarkable. Thyroid gland is within normal limits . There is no thoracic lymphadenopathy. There are no pericardial or pleural effusions. The lungs are clear. Limited imaging of the upper abdomen is unremarkable. There are no suspicious osseous lesions. Impression: Unremarkable CT examination of the chest.
--- NOTE | 2016-11-16 01:40 | REPUSA ---
CT of the abdomen and pelvis with contrast Clinical statement: ,. Technique: Multiple axial CT images were obtained from the base of the lungs through the floor of the pelvis utilizing 5 mm axial slices after administration of nonionic intravenous contrast. Coronal an d sagittal reconstructions were also obtained. Comparison: 11/08 2016. Findings: Chest: The visualized lung bases are clear. Abdomen: The spleen, pancreas, kidneys, gallbladder, and adrenal glands are unremarkable. The mild l ow attenuation and nodularity of the liver is stable. The aorta is within normal limits. There is no evidence of abdominal lymphadenopathy or ascites. Pelvis: The bowel is unremarkable, with no obstructive or inflammatory changes. The urinary bladder i s within normal limits. The other pelvic structures appear grossly intact. There is no evidence of pe lvic lymphadenopathy or ascites. Bones: There are no suspicious osseous abnormalities seen. Impression: 1. No acute traumatic injury appreciated. 2. Stable fatty infiltration of the liver. Mild cirrhosis is suspected.
--- NOTE | 2016-11-16 01:43 | HPE ---
DATE OF ADMISSION: 11/15/2016 PRIMARY CARE PROVIDER: The patient does not have primary care physician at this time; however, Dr. Allen from graduate medical education (E[facility] clinic was the primary care physician. INFECTIOUS DISEASE PHYSICIAN: Micky Mcclendon MD. Patient following pain management. HISTORY OF PRESENT ILLNESS: Mr. Flores is a 56-year-old male who presented to emergency room (ER) due to experienced one episode of fall secondary to lightheadedness and dizziness. Patient expressed that this afternoon when he stood up on his chair in the bedroom to walk into the living room he felt lightheaded and dizzy and he fell. Patient denies losing his consciousness. Patient also denies palpitations, racing or skipping heartbeat; however, patient has mild shortness of breath when he fell. Patient denies seizure-type activity or losing control of his bowel or bladder; however, patient expressed that he tried to crawl himself into the living room. Patient expressed that he does not take medication for his pain; however, he said that due to the severe pain he drinks alcohol when he has pain and the pain is mostly in the back secondary to L3-L4 transverse process fracture. Patient also has degenerative joint disease. Patient expressed that when his came back helped him to sit down on the couch and they called an ambulance. Patient has been recently admitted to [facility] from 09/19/2016 to 09/21/2016, due to orthostatic hypotension and syncope. The patient has a long history of alcohol abuse. Patient denies fever, chills, night sweats. Patient also denies sick contact, nausea or vomiting. Patient expressed that when he fell he does not remember if he had trauma to his head; however, patient felt that he has bilateral pain on the sides on the back when he fell. PAST MEDICAL HISTORY: 1. Insulin overdose with a history of four suicide attempts. 2. Type 2 diabetes. 3. Alcohol abuse. 4. History of atrial fibrillation. 5. Anxiety. 6. Severe depression. 7. Hypertension. 8. Chronic obstructive pulmonary disease (COPD). 9. Chronic hepatitis C. 10. History of CVA in 2008 with no residual effect. 11. Degenerative joint disease. 12. Dupuytren contracture hand and feet. 13. Adjustment disorder with mixed anxiety and depression. 14. Grade 1 diastolic congestive heart failure. Most recent echocardiogram was October 2014 with an ejection fraction of 60, grade 1 diastolic congestive heart failure, borderline left ventricular hypertrophy. PAST SURGICAL HISTORY: 1. Esophagogastroduodenoscopy (EGD). 2. Colonoscopy showing hemorrhoids in 2015. 3. Liver biopsy 2007. 4. Tonsillectomy. 5. Multiple hand injections. 6. Dupuytren's contracture relief of the left hand when he was 12. FAMILY HISTORY: Patient's father due to heart failure, CVA, myocardial infarction (LA); this is at age 78. Patient's mother due to heart failure, LA, hypertension, throat cancer, at age 63. Patient's one brother alive and is 60; however, he had quadruple bypass. Patient's oldest brother on row. Patient has three sons, one daughter, who are healthy. SOCIAL HISTORY: Patient expressed that he stopped smoking 10 years ago; however, before that patient smoked about 20-28 years one pack a day. Patient expressed that he only drinks occasionally; however, based on the previous medical files, patient has a history of heavy drinking. Patient denies illicit drug use. Patient is following with pain management for the back pain with pain center. Patient lives with his . HOME MEDICATIONS: - aspirin 81 mg by mouth daily - atorvastatin calcium 10 mg by mouth daily - BenGay greaseless one cream extended twice a day as needed for pain - vitamin D 1000 units by mouth daily - citalopram hydrobromide 20 mg by mouth daily - Cymbalta 60 mg by mouth daily - Levemir one dose subcutaneously per sliding scale - Lantus 50 subcutaneously daily twice a day - omeprazole 20 mg by mouth daily - Carafate 1 gram by mouth before food, nightly - Flomax 0.4 mg by mouth daily - tizanidine 4 mg by mouth three times a day as needed for muscle spasm - trazodone 150 mg by mouth nightly REVIEW OF SYSTEMS: GENERAL: Patient denies fever, chills, night sweats, weight loss, weight gain. HEENT: Patient expressed that he had one episode of lightheadedness and dizziness when he stood up from a sitting position. However, patient denies loss of consciousness. Patient also denies acute vision or hearing changes. Patient denies problem with chewing food or sinusitis. NECK: Patient denies lumps, bumps or decreased range of motion of his neck. HEART: Patient expressed that he felt palpitations when he stood up from the sitting position; however, patient denies chest pain, racing or skipping heartbeat at this moment. LUNGS: Patient expressed that he has one episode of shortness of breath when he stood up from the sitting position; however, at this time patient denies shortness of breath or coughing. NEUROLOGIC: Patient expressed that he had history of CVA in 2009; however, patient denies history of seizure-type activities. PHYSICAL EXAMINATION: VITAL SIGNS: Temperature 97.6, pulse 95, respiratory rate 18, blood pressure 163/121, pulse oximetry 97% on room air. GENERAL APPEARANCE: Patient was lying in bed in no acute distress. The patient was awake, alert, and oriented to time, place and person. HEENT: Normocephalic, atraumatic. Pupils are equal and reactive to light. Oral mucosa is moist. NECK: Soft, supple. No lymphadenopathy. No thyromegaly. No jugular venous distention (JVD). HEART: Regular rate and rhythm. Normal S1, S2. No murmur or gallop was noticed. LUNGS: Clear breath sounds bilaterally. Good air movement. ABDOMEN: Soft, nontender, positive bowel sounds in all quadrants. BACK: Patient has tenderness to palpation in his back bilaterally, especially on the thoracic area. SKIN: Patient has ecchymosis on the left and the right side of the thoracic area in the mid axillary line. NEUROLOGICAL: Cranial nerves II-XII were intact. EXTREMITIES: Patient has no sensation in both feet bilaterally. Patient has multiple lesions on his feet; however, they are not actively bleeding. However, patient has normal range of motion and strength in both upper and lower extremities. LABORATORY DATA: White blood cells 15.3, red blood cells 5.19, hemoglobin 16.9, hematocrit 48.1, MCV 92.7, MCH 32.5, MCHC 35.1, RDW 13.3, platelet count 165. Neutrophil percentage 72.3, lymphocyte percentage 14.8, monocyte percentage 9.1, eosinophil percentage 1.1, basophil percentage 0.3, leukocyte percentage 2.4. Sodium 137, potassium 4.4, chloride 103, carbon dioxide 17, anion gap 17, BUN 12, creatinine 0.73, glomerular filtration rate more than 60, fasting glucose 308, lactic acid 4.3, calcium 9. C-reactive protein is less than 0.03. Urine color yellow, urine appearance clear, urine pH 5, urine specific gravity 1.032, urine protein 2+, urine glucose 3+, urine ketones 1+, urine blood 1+, urine nitrites negative, urine bilirubin negative, urine urobilinogen 0.2, urine leukocyte esterase negative, urine white blood cells 1, urine red blood cells 3, urine hyaline casts 0, urine bacteria negative, urine squamous epithelial cells 0. Urine toxicology negative except ethyl alcohol which was 0.299. Blood culture is pending. IMAGING: Chest x-ray no acute disease. Head CT which shows negative study. ASSESSMENT AND PLAN: 1. Fall. This is possibly secondary to orthostatic hypotension secondary to alcohol abuse. We will check orthostatics every 4 hours. Patient received 2 liters of lactated Ringer's bolus. I have started patient on gentle intravenous (IV) fluid. We will continue checking patient's orthostatics. 2. Elevated lactic acid. Patient also had leukocytosis; however, so far indicated low possibility of sepsis. This is possibly secondary to alcohol. However, we will continue patient with gentle IV fluid. Also, I have started patient on cefepime due to the possibility risk of infection secondary to open lesions in the feet bilaterally. 3. Leukocytosis. This could be secondary to infection versus stress. We will continue monitoring patient's white blood cells. 4. Diabetes type 2 mellitus. We will continue patient on consistent carbohydrates. Also, we will continue patient on sliding scale and the home dosage of Levemir. 5. Chronic obstructive pulmonary disease (COPD). At this time, patient's symptoms are controlled. We will continue patient on breathing treatments. I have started patient on DuoNeb. Also, will continue patient on oxygen with a goal of 88-92% saturation. 6. Diastolic congestive heart failure. At this time, it is compensated. We will continue with gentle IV fluid. 7. Chronic hepatitis C. Patient was following with Dr. Mcclendon and patient was on Harvoni; however, at this time patient is cured. 8. History of CVA in 2008. This is a chronic issue. At this time, patient is stable. 9. L3-L4 transverse process fracture. We will continue patient with Cymbalta. Patient also following with pain management, pain solution and receives shots. 10. Adjustment disorder with mixed anxiety and depression. We will continue patient on Celexa and Cymbalta. 11. History of alcohol abuse. We will continue patient on Ativan 1 mg every 2 hours as needed IV anxiety and depression. 12. Hypertension. At this time, patient's blood pressure is stable. We will continue monitoring patient for any abnormal symptoms. 13. Deep venous thrombosis (DVT) prophylaxis. Patient is on Lovenox. My preceptor for this patient encounter was Dr. Elinor Mota. The preceptor was physically present in the building during the encounter and was fully available as needed. All aspects of the patient interview, examination, medical decision making process, and medical care plan development were reviewed and approved by the preceptor. The preceptor is aware and concurs with the plan as stated in the body of this note and will attest to such by his/her co-signature.
[2016-11-16 04:00] VITALS: BP_SYST 123; BP_SYST 133; BP_SYST 137; BP_DIAS 69; BP_DIAS 82; BP_DIAS 85
[2016-11-16] MEDS: MORPHINE 30 MG TAB **MSIR PO PRN ×2 (04:32→17:08)
[2016-11-16 06:50] LABS: ALBUMIN 2.9 GM/DL (3.2-5.2); ALBUMIN/GLOBULIN RATIO 1.07 (1.00-1.93); ALKALINE PHOSPHATASE 70 U/L (45-117); ALT/SGPT 68 U/L (12-78); ANION GAP 6 MEQ/L (8-16); AST/SGOT 31 U/L (15-37); BASO % 0.4 % (0.0-1.0); BILIRUBIN,TOTAL 0.6 MG/DL (0.2-1.0); BLOOD UREA NITROGEN 14 MG/DL (7-18); CALCIUM LEVEL 8.2 MG/DL (8.5-10.1); CARBON DIOXIDE LEVEL 26 MEQ/L (21-32); CHLORIDE LEVEL 104 MEQ/L (98-107); CREATININE FOR GFR 0.72 MG/DL (0.70-1.30); EOS # 0.1 K/mm3 (0.0-0.50); EOS % 1.5 % (0.0-3.0); GLOMERULAR FILTRATION RATE > 60.0 (>56); GLUCOSE, FASTING 264 MG/DL (70-105); LARGE UNSTAINED CELL # 0.1 K/mm3 (0.0-0.4); LARGE UNSTAINED CELL % 2.6 % (0.0-4.0); LYMPH # 1.7 K/mm3 (1.5-4.5); LYMPH % 29.9 % (24.0-44.0); MAGNESIUM LEVEL 1.9 MG/DL (1.8-2.4); MEAN CORPUSCULAR HEMOGLOBIN 31.8 pg (27.0-33.0); MEAN CORPUSCULAR HGB CONC 34.1 g/dl (32.0-36.5); MEAN CORPUSCULAR VOLUME 93.5 fl (80.0-96.0); MONO # 0.7 K/mm3 (0.0-0.8); MONO % 13.9 % (0.0-5.0); NEUTROPHILS # 2.7 K/mm3 (1.8-7.7); NEUTROPHILS % 51.7 % (36.0-66.0); RED CELL DISTRIBUTION WIDTH 13.1 % (11.5-14.5); SODIUM LEVEL 136 MEQ/L (136-145); TOTAL PROTEIN 5.6 GM/DL (6.4-8.2); WHITE BLOOD COUNT 5.3 K/mm3 (4.0-10.0)
[2016-11-16 06:52] LABS: PLATELET COUNT, AUTOMATED 97 k/mm3 (150-450)
[2016-11-16 07:45] VITALS: BP_SYST 138; BP_SYST 144; BP_SYST 147; BP_DIAS 78; BP_DIAS 82; BP_DIAS 87
[2016-11-16] MEDS: SUCRALFATE 1 GM TAB PO SCH ×4 (08:37→20:48)
[2016-11-16] MEDS: HumaLOG INSULIN (NovoLOG) PER UNIT SC SCH ×4 (08:37→21:00)
[2016-11-16] MEDS: CitaloPRAM (CeleXA) 20 MG TAB PO SCH (08:37)
[2016-11-16] MEDS: OMEPRAZOLE 20 MG CAP PO SCH (08:38)
[2016-11-16] MEDS: ATORVASTATIN 10 MG TAB PO SCH (08:38)
[2016-11-16] MEDS: DULoxetine 30 MG CAP (CYMBALTA) PO SCH (08:38)
[2016-11-16] MEDS: LEVEMIR (INSULIN DETEMIR) 1 UNITS/0.01ML SC SCH (08:38)
[2016-11-16] MEDS: ENOXAPARIN 40 MG/0.4 ML SYRINGE (J1650) SC SCH (08:38)
[2016-11-16] MEDS: VITAMIN D 1,000 INTERNATIONAL UNITS TABLET PO SCH (08:38)
[2016-11-16] MEDS: NS 1,000 ML IV SCH ×2 (08:39→20:49)
[2016-11-16 08:51] LABS: VENOUS BASE EXCESS 0.8 (-2.0-2.0); VENOUS O2 SATURATION 98.6 % (60.0-80.0); VENOUS PARTIAL PRESSURE CO2 42.1 mmHg (38.0-50.0); VENOUS PARTIAL PRESSURE O2 118.6 mmHg (30.0-50.0); VENOUS STANDARD HCO3 25.2 MEQ/L
[2016-11-16] MEDS: CEFEPIME HCL 2 GM in D5W MINI-BAG PLUS 50 ML IV SCH ×2 (10:54→23:41)
[2016-11-16 11:30] VITALS: BP 138/82
[2016-11-16] MEDS: LORazepam 2 MG/ML VIAL (J2060) IV PRN (12:08)
--- NOTE | 2016-11-16 15:05 | IPNPDOC ---
Text Note Date of Service The patient was seen on 11/16/16. NOTE Subjective: Pt states his dizziness is improving. Has bruising on his back from his fall, which is mildly painful. No N/V/abd pain. No CP/Palpitations. Objective: Vitals: (see below) General: No acute distress, laying comfortably in bed. HEENT: Moist mucous membranes. Neck: No JVD or lymphadenopathy Cardiac: RRR, No murmurs Pulm: Clear to auscultation b/l. No wheezing, rhonchi Abd: NT/ND + BS Ext: 1+ pitting edema BLE. No cyanosis Back - TTP b/l mid back s/p fall with contusions. Labs (see below) Images: CT Thoracic spine /CT Lumbar spine pending Assessment/Plan 1. Fall 2/2 Orthostatic hypotension- likely secondary to dehydration, and resolved with IVF hydration. Alcohol level +, and patient was recently drinking. H/o alcohol abuse. We'll continue to monitor. 2. ? cellulitis b/l toes - on cefepime 3. Lactic acidosis 2/2 hypotension, improve dwith IVF. 4. Leukocytosis - Likely reactive. Resolved. Afebrile. 5. Recent fracture of right L3/L4 transverse process status post mechanical fall and trauma while he was in the bathroom in September 2016. Dr. Hernández and Dr. Dias recommended no surgical intervention to be done, and recommends pain control, with an anticipated 6-8 weeks for improvement of symptoms. 6. Degenerative disc disease, with multiple disc bulging however no significant canal stenosis. Physical therapy. Conservative management. 7. Diabetes mellitus continue insulin 8. Hyperlipidemia- continue statin 9. History of hepatitis C- follows up outpatient with ID 10. Hypertension- controlled continue current meds 11. BPH- Proscar for urine retention. 12. Chronic back pain- continue Lyrica. Pain management consulted. Patient follows up with Dr. Cali smith. 13. History of CVA- on aspirin and statin 14. History of alcohol and opiate abuse. 15. Chronic thrombocytopenia. No bleeding at this time. DVT prophy: enoxaparin VS,Fishbone, I+O VS, Fishbone, I+O Laboratory Tests 11/15/16 16:25 Red Blood Count 5.19, Mean Corpuscular Volume 92.7, Mean Corpuscular Hemoglobin 32.5, Mean Corpuscular Hemoglobin Concent 35.1, Red Cell Distribution Width 13.3 , Neutrophils (%) (Auto) 72.3 H, Lymphocytes (%) (Auto) 14.8 L, Monocytes (%) ( Auto) 9.1 H, Eosinophils (%) (Auto) 1.1, Basophils (%) (Auto) 0.3, Neutrophils # (Auto) 11.1 H, Lymphocytes # (Auto) 2.6, Monocytes # (Auto) 1.4 H, Eosinophils # (Auto) 0.2, Basophils # (Auto) 0.0, Calcium Level 9.0 11/16/16 06:12 Red Blood Count 4.23 L, Mean Corpuscular Volume 93.5, Mean Corpuscular Hemoglobin 31.8, Mean Corpuscular Hemoglobin Concent 34.1, Red Cell Distribution Width 13.1, Neutrophils (%) (Auto) 51.7, Lymphocytes (%) (Auto) 29.9, Monocytes (%) (Auto) 13.9 H, Eosinophils (%) (Auto) 1.5, Basophils (%) ( Auto) 0.4, Neutrophils # (Auto) 2.7, Lymphocytes # (Auto) 1.7, Monocytes # (Auto ) 0.7, Eosinophils # (Auto) 0.1, Basophils # (Auto) 0.0, Calcium Level 8.2 L, Aspartate Amino Transf (AST/SGOT) 31, Alanine Aminotransferase (ALT/SGPT) 68, Alkaline Phosphatase 70, Total Bilirubin 0.6, Total Protein 5.6 L, Albumin 2.9 L Vital Signs Date Time Temp Pulse Resp B/P (MAP) Pulse Ox O2 Delivery O2 Flow Rate FiO2 11/16/16 11:30 97.3 92 18 138/82 (100) 97 Room Air I&O- Last 24 Hours up to 6 AM 11/16/16 06:00 Intake Total 480 ml Output Total 375 ml Balance 105 ml ECTOR DOVE MD Nov 16, 2016 15:05
[2016-11-16 16:00] VITALS: BP 133/69
--- NOTE | 2016-11-16 16:39 | ECGEPIP ---
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
[2016-11-16 20:00] VITALS: BP 146/84
[2016-11-17] VITALS: BP 131/81
[2016-11-17] MEDS: LORazepam 2 MG/ML VIAL (J2060) IV PRN ×2 (00:22→11:54)
[2016-11-17] MEDS: IPRATROPIUM 0.5MG/ALBUTEROL 2.5MG INH SOL UD 3ML (DUONEB)(J7620) NEB SCH ×4 (02:00→19:40)
[2016-11-17 04:40] VITALS: BP 124/84
[2016-11-17] MEDS: MORPHINE 30 MG TAB **MSIR PO PRN ×2 (05:11→17:32)
[2016-11-17 05:35] LABS: BASO % 0.5 % (0.0-1.0); EOS # 0.1 K/mm3 (0.0-0.50); EOS % 2.8 % (0.0-3.0); LARGE UNSTAINED CELL # 0.1 K/mm3 (0.0-0.4); LARGE UNSTAINED CELL % 2.6 % (0.0-4.0); LYMPH # 1.1 K/mm3 (1.5-4.5); LYMPH % 28.7 % (24.0-44.0); MEAN CORPUSCULAR HGB CONC 34.3 g/dl (32.0-36.5); MEAN CORPUSCULAR VOLUME 93.2 fl (80.0-96.0); MONO # 0.4 K/mm3 (0.0-0.8); MONO % 11.5 % (0.0-5.0); NEUTROPHILS # 1.9 K/mm3 (1.8-7.7); NEUTROPHILS % 53.9 % (36.0-66.0); PLATELET COUNT, AUTOMATED 100 k/mm3 (150-450); WHITE BLOOD COUNT 3.6 K/mm3 (4.0-10.0)
[2016-11-17 05:50] LABS: ALBUMIN 2.9 GM/DL (3.2-5.2); ALBUMIN/GLOBULIN RATIO 0.94 (1.00-1.93); ALKALINE PHOSPHATASE 75 U/L (45-117); ALT/SGPT 60 U/L (12-78); ANION GAP 6 MEQ/L (8-16); AST/SGOT 29 U/L (15-37); BILIRUBIN,TOTAL 0.5 MG/DL (0.2-1.0); BLOOD UREA NITROGEN 6 MG/DL (7-18); CARBON DIOXIDE LEVEL 27 MEQ/L (21-32); CHLORIDE LEVEL 106 MEQ/L (98-107); CREATININE FOR GFR 0.67 MG/DL (0.70-1.30); GLOMERULAR FILTRATION RATE > 60.0 (>56); GLUCOSE, FASTING 290 MG/DL (70-105); SODIUM LEVEL 139 MEQ/L (136-145)
--- NOTE | 2016-11-17 06:20 | REP ---
CT LUMBAR SPINE WITHOUT CONTRAST: HISTORY: Back pain. COMPARISON: 09/18/2016. A diffuse disc bulge is present at the L1-2 level. There is minimal compression of the thecal sac. The L1 nerves exit the neural foramina without compression. A diffuse disc bulge is present at the L2-3 level. There is hypertrophy of the ligamenta flava and posterior articulating facets. These findings produce minimal central canal stenosis. The L2 nerves exit the neural foramina without compression. A diffuse disc bulge is present at the L3-4 level. There is hypertrophy of the ligamenta flava and posterior articulating facets. These findings produce minimal central canal stenosis. The L3 nerves exit the neural foramina without compression. A diffuse disc bulge is present at the L4-5 level. There is minimal compression of the thecal sac. There is hypertrophy of the posterior articulating facets. The L4 nerves exit the neural foramina without compression. A diffuse disc bulge is present at the L5-S1 level. This abuts the S1 nerves. There is hypertrophy of the posterior articulating facets. The L5 nerves exit the neural foramina without compression. The L3-4 and L4-5 intervertebral discs are decreased in height consistent with disc degeneration. There is no subluxation. There are healing fractures of the right third and fourth transverse processes. There is no acute fracture. IMPRESSION: 1. Diffuse disc bulges at the L1-2 and L4-5 levels with minimal thecal sac compression. 2. Minimal central canal stenosis at the L2-3 and L3-4 levels secondary to disc bulge, ligamentous and facet hypertrophy. 3. Diffuse disc bulge at the L5-S1 level. This abuts the S1 nerves. 4. There are healing fracture of the right third and fourth transverse processes. Signed by Yunier Mckeon MD 11/17/2016 08:23 A
--- NOTE | 2016-11-17 06:24 | REP ---
CT THORACIC SPINE WITHOUT CONTRAST: There is no acute fracture or subluxation. There is no definite disc bulge or herniation. The spinal canal and neural foramina are patent. The intervertebral discs are normal in height. Small anterior osteophytes are present in the mid and lower thoracic spine. IMPRESSION: There is no acute fracture or subluxation. Signed by Yunier Mckeon MD 11/17/2016 08:23 A
[2016-11-17] MEDS: NS 1,000 ML IV SCH ×2 (07:37→19:41)
[2016-11-17 08:00] VITALS: BP 138/82
[2016-11-17] MEDS: SUCRALFATE 1 GM TAB PO SCH ×4 (09:15→20:25)
[2016-11-17] MEDS: CitaloPRAM (CeleXA) 20 MG TAB PO SCH (09:15)
[2016-11-17] MEDS: VITAMIN D 1,000 INTERNATIONAL UNITS TABLET PO SCH (09:15)
[2016-11-17] MEDS: OMEPRAZOLE 20 MG CAP PO SCH (09:15)
[2016-11-17] MEDS: ATORVASTATIN 10 MG TAB PO SCH (09:15)
[2016-11-17] MEDS: ENOXAPARIN 40 MG/0.4 ML SYRINGE (J1650) SC SCH (09:16)
[2016-11-17] MEDS: DULoxetine 30 MG CAP (CYMBALTA) PO SCH (09:16)
[2016-11-17] MEDS: MOM 30ML SUSPENSION UDC PO SCH ×3 (09:16→20:25)
[2016-11-17] MEDS: MIRALAX *UNIT DOSE* 17GM PACKET PO SCH ×2 (09:16→20:25)
[2016-11-17] MEDS: LEVEMIR (INSULIN DETEMIR) 1 UNITS/0.01ML SC SCH (09:17)
[2016-11-17] MEDS: HumaLOG INSULIN (NovoLOG) PER UNIT SC SCH ×5 (09:18→21:00)
[2016-11-17 10:45] VITALS: BP 132/89
[2016-11-17] MEDS: CEFEPIME HCL 2 GM in D5W MINI-BAG PLUS 50 ML IV SCH ×2 (11:55→22:47)
[2016-11-17] MEDS: ONDANSETRON 4MG/2ML VIAL (J2405) IV PRN ×2 (11:55→18:19)
--- NOTE | 2016-11-17 13:31 | IPNPDOC ---
Text Note Date of Service The patient was seen on 11/17/16. NOTE Subjective: No acute complaints. No N/V/abd pain. No CP/Palpitations. Objective: Vitals: (see below) General: No acute distress, laying comfortably in bed. HEENT: Moist mucous membranes. Neck: No JVD or lymphadenopathy Cardiac: RRR, No murmurs Pulm: Clear to auscultation b/l. No wheezing, rhonchi Abd: NT/ND + BS Ext: 1+ pitting edema BLE. No cyanosis Back - TTP b/l mid back s/p fall with contusions, pain significantly improved.. Labs (see below) Images: CT Thoracic spine 11/16/16 IMPRESSION:There is no acute fracture or subluxation. CT Lumbar spine 11/16/16 IMPRESSION: 1. Diffuse disc bulges at the L1-2 and L4-5 levels with minimal thecal sac compression. 2. Minimal central canal stenosis at the L2-3 and L3-4 levels secondary to disc bulge, ligamentous and facet hypertrophy. 3. Diffuse disc bulge at the L5-S1 level. This abuts the S1 nerves. 4. There are healing fracture of the right third and fourth transverse processes. Assessment/Plan 1. Fall 2/2 Orthostatic hypotension- likely secondary to dehydration, and resolved with IVF hydration. Alcohol level +, and patient was recently drinking. H/o alcohol abuse. We'll continue to monitor. Cont to monitor for withdrawal. Repeat CT thoracic/lumbar (see above). 2. ? cellulitis b/l toes - on cefepime 3. Lactic acidosis 2/2 hypotension, improved with IVF. 4. Leukocytosis - Likely reactive. Resolved. Afebrile. 5. Recent fracture of right L3/L4 transverse process status post mechanical fall and trauma while he was in the bathroom in September 2016. Dr. Hernández and Dr. Dias recommended no surgical intervention to be done, and recommends pain control, with an anticipated 6-8 weeks for improvement of symptoms. 6. Degenerative disc disease, with multiple disc bulging however no significant canal stenosis. Physical therapy. Conservative management. 7. Diabetes mellitus continue insulin 8. Hyperlipidemia- continue statin 9. History of hepatitis C- follows up outpatient with ID 10. Hypertension- controlled continue current meds 11. BPH- Proscar for urine retention. 12. Chronic back pain- continue Lyrica. Pain management consulted. Patient follows up with Dr. Cali smith. 13. History of CVA- on aspirin and statin 14. History of alcohol and opiate abuse. 15. Chronic thrombocytopenia. No bleeding at this time. DVT prophy: enoxaparin PT consulted. VS,Fishbone, I+O VS, Fishbone, I+O Laboratory Tests 11/17/16 05:14 Red Blood Count 4.25 L, Mean Corpuscular Volume 93.2, Mean Corpuscular Hemoglobin 32.0, Mean Corpuscular Hemoglobin Concent 34.3, Red Cell Distribution Width 13.0, Neutrophils (%) (Auto) 53.9, Lymphocytes (%) (Auto) 28.7, Monocytes (%) (Auto) 11.5 H, Eosinophils (%) (Auto) 2.8, Basophils (%) ( Auto) 0.5, Neutrophils # (Auto) 1.9, Lymphocytes # (Auto) 1.1 L, Monocytes # ( Auto) 0.4, Eosinophils # (Auto) 0.1, Basophils # (Auto) 0.0, Calcium Level 8.0 L , Aspartate Amino Transf (AST/SGOT) 29, Alanine Aminotransferase (ALT/SGPT) 60, Alkaline Phosphatase 75, Total Bilirubin 0.5, Total Protein 6.0 L, Albumin 2.9 L Vital Signs Date Time Temp Pulse Resp B/P (MAP) Pulse Ox O2 Delivery O2 Flow Rate FiO2 11/17/16 10:45 97.2 95 18 132/89 (103) 92 Room Air I&O- Last 24 Hours up to 6 AM 11/17/16 06:00 Intake Total 3357.5 ml Output Total 3025 ml Balance 332.5 ml ECTOR DOVE MD Nov 17, 2016 13:31
[2016-11-17 14:00] VITALS: BP 145/90
[2016-11-17] MEDS: traZODone 50 MG TAB PO PRN (20:25)
[2016-11-17 21:16] VITALS: BP 132/72
[2016-11-18] MEDS: IPRATROPIUM 0.5MG/ALBUTEROL 2.5MG INH SOL UD 3ML (DUONEB)(J7620) NEB SCH ×4 (01:26→20:00)
[2016-11-18] MEDS: LORazepam 2 MG/ML VIAL (J2060) IV PRN ×2 (01:56→11:50)
[2016-11-18 06:00] VITALS: BP 131/85
[2016-11-18 06:58] LABS: BASO % 0.6 % (0.0-1.0); EOS # 0.1 K/mm3 (0.0-0.50); LARGE UNSTAINED CELL # 0.2 K/mm3 (0.0-0.4); LARGE UNSTAINED CELL % 3.2 % (0.0-4.0); LYMPH # 1.5 K/mm3 (1.5-4.5); LYMPH % 28.3 % (24.0-44.0); MEAN CORPUSCULAR HGB CONC 34.2 g/dl (32.0-36.5); MEAN CORPUSCULAR VOLUME 93.7 fl (80.0-96.0); MONO # 0.5 K/mm3 (0.0-0.8); MONO % 10.2 % (0.0-5.0); NEUTROPHILS # 2.6 K/mm3 (1.8-7.7); NEUTROPHILS % 54.8 % (36.0-66.0); RED CELL DISTRIBUTION WIDTH 12.8 % (11.5-14.5); WHITE BLOOD COUNT 4.7 K/mm3 (4.0-10.0)
[2016-11-18 07:00] LABS: PLATELET COUNT, AUTOMATED 99 k/mm3 (150-450)
[2016-11-18 07:13] LABS: ALBUMIN 2.9 GM/DL (3.2-5.2); ALBUMIN/GLOBULIN RATIO 0.88 (1.00-1.93); ALKALINE PHOSPHATASE 62 U/L (45-117); ALT/SGPT 72 U/L (12-78); ANION GAP 3 MEQ/L (8-16); AST/SGOT 48 U/L (15-37); BILIRUBIN,TOTAL 0.6 MG/DL (0.2-1.0); BLOOD UREA NITROGEN 5 MG/DL (7-18); CARBON DIOXIDE LEVEL 33 MEQ/L (21-32); CHLORIDE LEVEL 102 MEQ/L (98-107); CREATININE FOR GFR 0.54 MG/DL (0.70-1.30); GLOMERULAR FILTRATION RATE > 60.0 (>56); GLUCOSE, FASTING 169 MG/DL (70-105); MAGNESIUM LEVEL 2.6 MG/DL (1.8-2.4); POTASSIUM SERUM 4.2 MEQ/L (3.5-5.1); SODIUM LEVEL 138 MEQ/L (136-145); TOTAL PROTEIN 6.2 GM/DL (6.4-8.2)
[2016-11-18] MEDS: MOM 30ML SUSPENSION UDC PO SCH ×3 (08:06→20:43)
[2016-11-18] MEDS: NS 1,000 ML IV SCH ×2 (08:06→20:42)
[2016-11-18] MEDS: OMEPRAZOLE 20 MG CAP PO SCH (08:06)
[2016-11-18] MEDS: MORPHINE 30 MG TAB **MSIR PO PRN ×2 (08:06→20:44)
[2016-11-18] MEDS: ATORVASTATIN 10 MG TAB PO SCH (08:07)
[2016-11-18] MEDS: CitaloPRAM (CeleXA) 20 MG TAB PO SCH (08:07)
[2016-11-18] MEDS: DULoxetine 30 MG CAP (CYMBALTA) PO SCH (08:07)
[2016-11-18] MEDS: VITAMIN D 1,000 INTERNATIONAL UNITS TABLET PO SCH (08:07)
[2016-11-18] MEDS: LEVEMIR (INSULIN DETEMIR) 1 UNITS/0.01ML SC SCH (08:07)
[2016-11-18] MEDS: SUCRALFATE 1 GM TAB PO SCH ×4 (08:07→20:44)
[2016-11-18] MEDS: HumaLOG INSULIN (NovoLOG) PER UNIT SC SCH ×4 (08:08→21:00)
[2016-11-18] MEDS: MIRALAX *UNIT DOSE* 17GM PACKET PO SCH ×2 (08:10→20:43)
[2016-11-18] MEDS: ENOXAPARIN 40 MG/0.4 ML SYRINGE (J1650) SC SCH (08:21)
[2016-11-18 11:35] VITALS: BP_SYST 122; BP_SYST 128; BP_SYST 148; BP_DIAS 76; BP_DIAS 84; BP_DIAS 94
[2016-11-18 11:39] VITALS: BP_SYST 122; BP_SYST 128; BP_SYST 148; BP_DIAS 76; BP_DIAS 84; BP_DIAS 94
[2016-11-18] MEDS: CEFEPIME HCL 2 GM in D5W MINI-BAG PLUS 50 ML IV SCH (11:47)
[2016-11-18 14:00] VITALS: BP 148/80
[2016-11-18] MEDS: ONDANSETRON 4MG/2ML VIAL (J2405) IV PRN (14:25)
--- NOTE | 2016-11-18 14:52 | IPN ---
DATE OF VISIT: 11/18/2016 SUBJECTIVE: Patient seen and examined in the room today. Patient denies any acute changes. Patient noted to have a significant output yesterday. Patient continues to have orthostasis. Patient has passed physical therapy evaluation. OBJECTIVE: VITAL SIGNS: Temperature 97.1, pulse is 100, respiratory rate 18, blood pressure supine is 148/94, standing is 122/76. GENERAL: No signs of acute distress. Alert and oriented times three. HEENT: Normocephalic, atraumatic. Extraocular motors grossly intact. CARDIOVASCULAR: Positive S1 and S2, tachycardic with a heart rate greater than 100. LUNGS: Clear to auscultation bilaterally, no wheezes or rhonchi. ABDOMEN: Soft, nontender, nondistended. Bowel sounds present. EXTREMITIES: Mild pitting edema bilaterally. There is some erythematous color change of all the toes and the patient has multiple toenails missing. No signs of cyanosis. LABORATORY DATA: WBC if 4.7, hemoglobin 14.5, hematocrit 42.3, platelet count is 99. Sodium is 138, potassium 4.2, chloride is 102, carbon dioxide is 33, BUN 5, creatinine 0.54, GFR greater than 60, fasting glucose is 169, calcium is 8, magnesium 2.6, total bilirubin 0.6, AST 48, ALT is 72, alkaline phosphatase is 62, albumin 2.9. ASSESSMENT/PLAN: 1. Orthostatic hypotension secondary to dehydration. Patient continues to be supported on the IV fluid. Patient has orthostatic measurements on a regular basis. 2. History of alcohol abuse. On admission, which was 11/15/2016, patient's alcohol level was 0.299. Will monitor the patient for withdrawal. 3. Recent fracture of the right L3-L4 transverse process status post mechanical fall and trauma in September 2016. Dr. Hernández and Dr. Dias recommend no surgical intervention at this moment. Continue pain control. Continue physical therapy. 4. Diabetes. Patient is on sliding scale and on consistent carbohydrate diet. Will followup with A1c tomorrow. 5. Dyslipidemia, on statins. 6. History of hepatitis C. Patient will followup as outpatient with infectious disease. 7. Hypertension. Currently patient has orthostatic hypotension. Blood pressure medication will be on hold. 8. Benign prostatic hypertrophy (BPH). On Proscar. 9. History of CVA on aspirin and statin. 10. History of alcohol and opiate abuse. 11. Chronic thrombocytopenia. Continue to monitor. No active bleeding. 12. Bilateral toe color changes. Patient has been on cefepime for suspected cellulitis. Differential could be the patient does have significant arterial disease. Continue to monitor. 13. Deep vein thrombosis (DVT) prophylaxis. Patient on Lovenox. MTDD
[2016-11-18] MEDS: traZODone 50 MG TAB PO PRN (20:44)
[2016-11-18] MEDS: BACTRIM 160MG/800MG DS TAB PO SCH (20:44)
[2016-11-19] MEDS: LORazepam 2 MG/ML VIAL (J2060) IV PRN ×2 (00:32→11:18)
[2016-11-19] MEDS: IPRATROPIUM 0.5MG/ALBUTEROL 2.5MG INH SOL UD 3ML (DUONEB)(J7620) NEB SCH ×4 (00:39→18:52)
[2016-11-19 06:00] VITALS: BP 158/98
[2016-11-19 06:46] LABS: BASO % 0.8 % (0.0-1.0); EOS # 0.1 K/mm3 (0.0-0.50); EOS % 2.4 % (0.0-3.0); LARGE UNSTAINED CELL # 0.1 K/mm3 (0.0-0.4); LARGE UNSTAINED CELL % 3.2 % (0.0-4.0); LYMPH # 1.4 K/mm3 (1.5-4.5); LYMPH % 27.3 % (24.0-44.0); MEAN CORPUSCULAR HGB CONC 34.3 g/dl (32.0-36.5); MEAN CORPUSCULAR VOLUME 93.3 fl (80.0-96.0); MONO # 0.5 K/mm3 (0.0-0.8); NEUTROPHILS # 2.5 K/mm3 (1.8-7.7); NEUTROPHILS % 56.3 % (36.0-66.0); PLATELET COUNT, AUTOMATED 101 k/mm3 (150-450); RED CELL DISTRIBUTION WIDTH 12.8 % (11.5-14.5); WHITE BLOOD COUNT 4.5 K/mm3 (4.0-10.0)
[2016-11-19 06:57] LABS: ALBUMIN 3.2 GM/DL (3.2-5.2); ALBUMIN/GLOBULIN RATIO 0.94 (1.00-1.93); ALKALINE PHOSPHATASE 70 U/L (45-117); ALT/SGPT 83 U/L (12-78); ANION GAP 5 MEQ/L (8-16); AST/SGOT 48 U/L (15-37); BILIRUBIN,TOTAL 0.5 MG/DL (0.2-1.0); BLOOD UREA NITROGEN 6 MG/DL (7-18); CALCIUM LEVEL 7.8 MG/DL (8.5-10.1); CARBON DIOXIDE LEVEL 28 MEQ/L (21-32); CHLORIDE LEVEL 102 MEQ/L (98-107); CREATININE FOR GFR 0.64 MG/DL (0.70-1.30); GLOMERULAR FILTRATION RATE > 60.0 (>56); GLUCOSE, FASTING 181 MG/DL (70-105); MAGNESIUM LEVEL 2.7 MG/DL (1.8-2.4); POTASSIUM SERUM 4.1 MEQ/L (3.5-5.1); SODIUM LEVEL 135 MEQ/L (136-145); TOTAL PROTEIN 6.6 GM/DL (6.4-8.2)
[2016-11-19] MEDS: HumaLOG INSULIN (NovoLOG) PER UNIT SC SCH ×4 (07:30→21:00)
[2016-11-19] MEDS: DULoxetine 30 MG CAP (CYMBALTA) PO SCH (08:02)
[2016-11-19] MEDS: LEVEMIR (INSULIN DETEMIR) 1 UNITS/0.01ML SC SCH (08:02)
[2016-11-19] MEDS: CitaloPRAM (CeleXA) 20 MG TAB PO SCH (08:02)
[2016-11-19] MEDS: OMEPRAZOLE 20 MG CAP PO SCH (08:02)
[2016-11-19] MEDS: SUCRALFATE 1 GM TAB PO SCH ×4 (08:02→20:41)
[2016-11-19] MEDS: VITAMIN D 1,000 INTERNATIONAL UNITS TABLET PO SCH (08:02)
[2016-11-19] MEDS: BACTRIM 160MG/800MG DS TAB PO SCH ×2 (08:03→20:42)
[2016-11-19] MEDS: ENOXAPARIN 40 MG/0.4 ML SYRINGE (J1650) SC SCH (08:03)
[2016-11-19] MEDS: MOM 30ML SUSPENSION UDC PO SCH ×3 (08:03→20:41)
[2016-11-19] MEDS: ATORVASTATIN 10 MG TAB PO SCH (08:03)
[2016-11-19] MEDS: MIRALAX *UNIT DOSE* 17GM PACKET PO SCH ×2 (08:03→20:42)
[2016-11-19] MEDS: NS 1,000 ML IV SCH (08:04)
[2016-11-19 09:58] VITALS: BP_SYST 130; BP_SYST 136; BP_SYST 140; BP_DIAS 88; BP_DIAS 90
[2016-11-19] MEDS: MORPHINE 30 MG TAB **MSIR PO PRN ×2 (11:18→23:54)
[2016-11-19] MEDS ORDERED: SMZ-800T PO (12:38)
[2016-11-19] MEDS ORDERED: FLOM5CAP PO (12:53)
[2016-11-19] MEDS ORDERED: TIZA2TA PO (12:53)
[2016-11-19] MEDS ORDERED: CITA20TA4 PO (12:53)
[2016-11-19] MEDS ORDERED: OMEP20CA3 PO (12:53)
[2016-11-19] MEDS ORDERED: TRAZ150T14 PO (12:53)
[2016-11-19] MEDS ORDERED: ASPI81TAEC PO (12:53)
[2016-11-19] MEDS ORDERED: CYMB60CA3 PO (12:53)
[2016-11-19] MEDS ORDERED: INSULADS SC (12:53)
[2016-11-19] MEDS ORDERED: CARA1TAB2 PO (12:53)
[2016-11-19] MEDS ORDERED: INSUDET SC (12:53)
[2016-11-19] MEDS ORDERED: VITA100066 PO (12:53)
[2016-11-19] MEDS ORDERED: ATOR1TAB19 PO (12:53)
[2016-11-19] MEDS ORDERED: INSUHUMDS SC (13:36)
[2016-11-19 14:00] VITALS: BP 121/76
--- NOTE | 2016-11-19 14:29 | IPN ---
DATE: 11/19/2016 SUBJECTIVE: Patient seen and examined in the room today. Patient stated that he has been working with physical therapy (PT). He noticed that there is a significant improvement. He has been on antibiotics for his bilateral toe erythema and swelling. He feels that it is helping his toe symptoms. No overnight events were reported. OBJECTIVE: VITAL SIGNS: Temperature is 97.3, pulse is 81, respiratory rate 20, blood pressure is 158/98, pulse oximetry is 95% on room air. GENERAL: No signs of acute distress. Alert and oriented times three. HEENT: Normocephalic, atraumatic. Extraocular motors grossly intact. CARDIOVASCULAR: Positive S1 and S2. Regular rate. LUNGS: Clear to auscultation bilaterally. ABDOMEN: Soft, nontender, nondistended. Bowel sounds present. No rebound. No guarding. EXTREMITIES: Erythematous color global climate change analyst the toes. Erythematous changes improving compared to yesterday. There are multiple toenails missing and there are some fungal nail noted. No sign of cyanosis. LABORATORY DATA: WBC if 4.6, hemoglobin 15, hematocrit 43.7, platelet count is 101. Sodium is 135, potassium 4.1, chloride is 102, carbon dioxide is 28, BUN 6, creatinine 0.64, GFR greater than 60, fasting glucose is 181, A1/c is 8.5, calcium is 7.8, magnesium 2.7, total bilirubin 0.5, AST 48, ALT is 83, alkaline phosphatase is 70, total protein 6.6, albumin 3.2. ASSESSMENT/PLAN: 1. Orthostatic hypotension secondary to dehydration. Patient is not orthostatic anymore. The patient is off the IV support. The patient has continued to work with physical therapy (PT). 2. History of alcohol abuse. On admission, which was 11/15/2016, patient's alcohol level was 0.299. Continue to monitor the patient for withdrawal symptoms. 3. Recent fracture of the right L3-L4 transverse process status post mechanical fall and trauma in September 2016. Dr. Hernández and Dr. Dias recommend no surgical intervention at this moment. Continue pain control. Continue physical therapy. 4. Diabetes. A1/c is 8.5. Patient is continued on consistent carbohydrate diet. The patient is on long-acting insulin coverage with short acting per sliding scale. 5. Dyslipidemia, on statins. 6. History of hepatitis C. Patient was followed with Dr. Mcclendon previously. The patient was cured from the hepatitis C. 7. Hypertension. Blood pressure medication is on hold due to previous orthostatic hypotension. 8. Benign prostatic hypertrophy (BPH). On Proscar. 9. History of alcohol and opiate abuse. 10. History of CVA. On aspirin and statin. 11. Chronic thrombocytopenia. Platelets are currently stable. No sign of acute bleeding. 12. Bilateral toe color changes. Differential includes cellulitis versus peripheral arterial disease. The patient is currently on empiric antibiotics and the patient has noticed changes of the toe symptoms. Continue the antibiotic for now. 13. Deep vein thrombosis (DVT) prophylaxis. On Lovenox. DISPOSITION: We anticipate discharge in the next 24 hours. Currently, I have been working with the hospitalist staff to set up the patient for post hospitalization followup. The patient's home medications were all renewed and sent to the pharmacy.
[2016-11-19] MEDS: LORazepam 1 MG TAB PO PRN ×2 (16:11→20:41)
[2016-11-19] MEDS ORDERED: ONDANSETRON 4 MG TAB (S0181) PO PRN (17:45)
[2016-11-19] MEDS: traZODone 50 MG TAB PO PRN (21:56)
[2016-11-19 21:57] VITALS: BP_SYST 123; BP_SYST 128; BP_SYST 134; BP_DIAS 83; BP_DIAS 88
[2016-11-19 21:58] VITALS: BP 134/88
[2016-11-20 06:15] VITALS: BP_SYST 133; BP_SYST 135; BP_SYST 142; BP_DIAS 86; BP_DIAS 87; BP_DIAS 90
[2016-11-20 06:16] VITALS: BP 135/86
[2016-11-20 07:02] LABS: BASO % 0.6 % (0.0-1.0); EOS # 0.1 K/mm3 (0.0-0.50); EOS % 2.5 % (0.0-3.0); LARGE UNSTAINED CELL # 0.2 K/mm3 (0.0-0.4); LARGE UNSTAINED CELL % 5.2 % (0.0-4.0); LYMPH # 1.8 K/mm3 (1.5-4.5); LYMPH % 32.2 % (24.0-44.0); MEAN CORPUSCULAR HEMOGLOBIN 32.4 pg (27.0-33.0); MEAN CORPUSCULAR HGB CONC 34.5 g/dl (32.0-36.5); MONO # 0.5 K/mm3 (0.0-0.8); MONO % 11.3 % (0.0-5.0); NEUTROPHILS # 2.3 K/mm3 (1.8-7.7); NEUTROPHILS % 48.2 % (36.0-66.0); PLATELET COUNT, AUTOMATED 110 k/mm3 (150-450); WHITE BLOOD COUNT 4.7 K/mm3 (4.0-10.0)
[2016-11-20 07:17] LABS: ALBUMIN 3.3 GM/DL (3.2-5.2); ALBUMIN/GLOBULIN RATIO 0.97 (1.00-1.93); ALKALINE PHOSPHATASE 75 U/L (45-117); ALT/SGPT 93 U/L (12-78); ANION GAP 4 MEQ/L (8-16); AST/SGOT 56 U/L (15-37); BILIRUBIN,TOTAL 0.4 MG/DL (0.2-1.0); BLOOD UREA NITROGEN 6 MG/DL (7-18); CALCIUM LEVEL 8.7 MG/DL (8.5-10.1); CARBON DIOXIDE LEVEL 32 MEQ/L (21-32); CHLORIDE LEVEL 100 MEQ/L (98-107); CREATININE FOR GFR 0.79 MG/DL (0.70-1.30); GLOMERULAR FILTRATION RATE > 60.0 (>56); GLUCOSE, FASTING 186 MG/DL (70-105); MAGNESIUM LEVEL 3.2 MG/DL (1.8-2.4); POTASSIUM SERUM 4.8 MEQ/L (3.5-5.1); SODIUM LEVEL 136 MEQ/L (136-145); TOTAL PROTEIN 6.7 GM/DL (6.4-8.2)
[2016-11-20] MEDS: IPRATROPIUM 0.5MG/ALBUTEROL 2.5MG INH SOL UD 3ML (DUONEB)(J7620) NEB SCH (08:00)
[2016-11-20] MEDS ORDERED: INSULANT SC (08:51)
[2016-11-20] MEDS: ENOXAPARIN 40 MG/0.4 ML SYRINGE (J1650) SC SCH (09:00)
[2016-11-20] MEDS: MOM 30ML SUSPENSION UDC PO SCH (09:00)
[2016-11-20] MEDS: MIRALAX *UNIT DOSE* 17GM PACKET PO SCH (09:00)
[2016-11-20] MEDS: LEVEMIR (INSULIN DETEMIR) 1 UNITS/0.01ML SC SCH (09:18)
[2016-11-20] MEDS: VITAMIN D 1,000 INTERNATIONAL UNITS TABLET PO SCH (09:19)
[2016-11-20] MEDS: ATORVASTATIN 10 MG TAB PO SCH (09:19)
[2016-11-20] MEDS: OMEPRAZOLE 20 MG CAP PO SCH (09:19)
[2016-11-20] MEDS: DULoxetine 30 MG CAP (CYMBALTA) PO SCH (09:19)
[2016-11-20] MEDS: SUCRALFATE 1 GM TAB PO SCH (09:19)
[2016-11-20] MEDS: BACTRIM 160MG/800MG DS TAB PO SCH (09:19)
[2016-11-20] MEDS: CitaloPRAM (CeleXA) 20 MG TAB PO SCH (09:20)
[2016-11-20] MEDS: HumaLOG INSULIN (NovoLOG) PER UNIT SC SCH (09:20)
--- NOTE | 2016-11-20 17:50 | DSES ---
DATE OF ADMISSION: 11/15/2016 DATE OF DISCHARGE: 11/20/2016 PRIMARY CARE PROVIDER: SIMONA Ty. ADMISSION/DISCHARGE DIAGNOSES: 1. Orthostatic hypotension secondary to dehydration,. 2. Medical noncompliance. 3. History of alcohol abuse. 4. Recent fracture of the right L3 to L4 transverse process status post mechanical fall and trauma in September 2016. 5. Diabetes with A1c of 8.5. 6. Dyslipidemia. 7. History of Hepatitis C, cured. 8. Hypertension. 9. Benign prostatic hypertrophy. 10. Alcohol and opiate abuse. 11. History of cerebrovascular accident (CVA). 12. History of chronic thrombocytopenia. 13. Bilateral toe color changes. 14. History of multiple suicidal attempts. HOSPITALIZATION COURSE: Patient is a 56-year-old male presented to [facility] on 11/15/2016 after fall from lightheadedness and dizziness. On admission, patient was found to have elevated alcohol blood concentration. Patient also found to have significant orthostasis so patient is admitted progressive care unit (PCU) for telemetry. Patient also started on IV support. During hospitalization, also found to have skin color changes of multiple toes, and patient started on empiric antibiotics. Patient's symptomatic orthostatic hypotension resolved with IV hydration, and patient continued to work with physical therapy. On 11/20/2016, patient determined medically stable for discharge with recommendation to establish new primary care provider. Vital signs: Temperature 97.3, pulse 90, respiratory 60, blood pressure is 135/86, pulse ox is 98% on room air. LABORATORY DATA: WBC 4.7, hemoglobin 15.5, hematocrit 44.9, platelet count 110. Sodium 136, potassium 4.8, chloride 100, carbon dioxide 32, BUN 6, creatinine 0.79. Glomerular filtration rate (GFR) is greater than 60. Fasting glucose 186. Calcium 8.7, magnesium 3.2, total bilirubin 0.4, AST 56, ALT 93, alkaline phosphatase 75, total protein 6.7. Microbiology: Blood culture negative after 72 hours with two sets. IMAGING STUDY: Chest x-ray on 11/15/2016 showed no active disease. CT of the head without contrast showed negative study. CT of the chest with contrast on 11/15/[address] of the chest. CT of the abdomen and pelvis with IV contrast showed no acute traumatic injury. Stable fatty infiltrate of the liver. Mild cirrhosis is suspected. CT of the thoracic spine without contrast shows no acute fracture or subluxation. CT of the lumbar spine without contrast showed diffuse disc bulging at L1-L2 and L4-L5 level with minimal thecal sac compression. Minimal central canal stenosis at L2-L3 and L3-L4 level secondary to disc bulging and ligamentous facet hypertrophy. Diffuse disc bulge at the L5 to S1 level. There is a healing fracture of the third and fourth transverse process. DISCHARGE MEDICATIONS: - Lantus 30 units subcu every morning - Humalog subcu before food and at bedtime - Bactrim 1 tab by mouth twice a day for 4 more days - aspirin 81 mg by mouth daily - atorvastatin 10 mg by mouth daily - BenGay twice a day as needed for pain - vitamin D 1000 units by mouth daily - citalopram 20 mg by mouth daily - Cymbalta 60 mg by mouth daily - omeprazole 20 mg by mouth every day - sucralfate 1 gram by mouth before food and at bedtime - Flomax 0.4 mg by mouth every day - tizanidine 4 mg by mouth three times a day as needed for muscle spasm - trazodone 150 mg by mouth at bedtime DISCHARGE INSTRUCTIONS: 1. Discontinue line. 2. Home activity as tolerated. 3. Consistent carbohydrate diet as tolerated. 4. Patient wished to establish with a new primary care provider, appointment is set up for the patient within a week. Patient is recommended to follow up with new primary care provider at the scheduled time. 5. There is a concern for patient's insulin diabetes management. Per medical record, patient was prescribed 50 units twice a day, however during the whole hospitalization patient only required 30 units every day, covering with the sliding scale for multiple encounter with patient. Patient has diabetes for 15 years, and patient still requires further education on the consistent carbohydrate diet. Patient would benefit from outpatient portal developer. 6. Patient had a multiple hospitalizations for suicidal attempt and psychiatry disorder, and patient also has significant history of opiate and tobacco abuse. Patient may benefit from outpatient psychiatric referral. DISCHARGE CONDITION: Stable. DISCHARGE TIME: Greater than 30 minutes.
== END 2016-11-20 11:05 | disposition home health service (06) | DRG 422 ==
LOC: M ED 15:49 → M ED INP 22:00 → M PCU 11-16 07:58 → M MSPAV 11-17 10:40
PROVIDERS: ADMIT Internal Medicine; ATTEND Internal Medicine
DX: E86.0 Dehydration (principal); I50.32 Chronic diastolic (congestive) heart failure; E87.2 Acidosis; D69.6 Thrombocytopenia, unspecified; I95.1 Orthostatic hypotension; J44.9 Chronic obstructive pulmonary disease, unspecified; I11.9 Hypertensive heart disease without heart failure; I48.91 Unspecified atrial fibrillation; F10.10 Alcohol abuse, uncomplicated; L03.031 Cellulitis of right toe; Z91.19 Patient's noncompliance with other medical treatment and regimen; E11.9 Type 2 diabetes mellitus without complications; E78.5 Hyperlipidemia, unspecified; N40.0 Benign prostatic hyperplasia without lower urinary tract symptoms; Z86.73 Personal history of transient ischemic attack (TIA), and cerebral infarction without residual deficits; F11.10 Opioid abuse, uncomplicated; Z79.899 Other long term (current) drug therapy; Z79.4 Long term (current) use of insulin; Z79.82 Long term (current) use of aspirin; M51.36 Other intervertebral disc degeneration, lumbar region; F32.9 Major depressive disorder, single episode, unspecified; F41.9 Anxiety disorder, unspecified; D72.829 Elevated white blood cell count, unspecified; Z98.84 Bariatric surgery status

== ENCOUNTER 2016-12-08 23:31 | Emergency (ER) | payer MEDICAID ==
[~2016-12-08] VITALS: Ht 180.3 cm; Wt 83.9 kg
[~2016-12-08 23:31] MED LIST changes: +ASPI325T24 PO; -ASPI32ECTA PO; -BENCRE EXT; +BENCRE3 TOP; -CARA1TAB2 PO; +CARA1TAB6 PO; -DOCU100C PO; +DOCU100C16 PO; +MECL1CHW2 PO; -MECL25CH PO; +OXYC-141 PO; -OXYC-299 PO; -OXYC20TA21 PO; +OXYC20TA40 PO; +PERC5TAB12 PO; -PERC5TAB6 PO; -PROA1AER IN; -PROA1AER INH; +PROAAER10 IN; +PROAAER10 INH; +SULF1TAB23 PO; +TIZA2TA PO; -TRAZ150T14 PO; +TRAZ1TAB14 PO; +TRAZ50TA11 PO; -TRAZ50TA4 PO; +VITA-182 PO; -VITA100041 PO; +VOLT1GEL15 TD; -VOLT1GEL24 TD
[2016-12-09] MEDS ORDERED: MORPHINE 10 MG/ML 1ML VIAL IM ONE (00:15)
[2016-12-09] MEDS ORDERED: PERC5TAB12 PO (01:20)
[2016-12-09 01:30] VITALS: BP 148/98
[2016-12-09] MEDS ORDERED: OXYCODONE/APAP 5MG/325MG(BULK FOR ED) 1 TABLET PO ONE (01:30)
--- NOTE | 2016-12-09 06:16 | REP ---
Clinical: Trauma. Technique: AP angled and lateral views of the sacrum and coccyx. Findings: Sacroiliac joints are symmetric and normal for age. The sacrum is intact. The coccyx appears intact. No obvious acute fracture or dislocation/subluxation appreciated. Overlying soft tissues are grossly unremarkable. Impression: No obvious sacral coccygeal fracture or injury identified. Signed by Reji Thornton MD 12/09/2016 06:08 A
== END 2016-12-09 01:41 | disposition home or self-care (01) ==
LOC: EDBD 23:31 → M ED 12-09 00:38
DX: S30.0XXA Contusion of lower back and pelvis, initial encounter (principal); W01.0XXA Fall on same level from slipping, tripping and stumbling without subsequent striking against object, initial encounter; Y92.89 Other specified places as the place of occurrence of the external cause; Y93.89 Activity, other specified; Y99.8 Other external cause status; Z79.899 Other long term (current) drug therapy; Z79.4 Long term (current) use of insulin; Z79.82 Long term (current) use of aspirin; Z88.8 Allergy status to other drugs, medicaments and biological substances; L23.1 Allergic contact dermatitis due to adhesives

== ENCOUNTER 2016-12-16 21:57 | Emergency (ER) | payer MEDICAID, SELFPAY ==
[~2016-12-16] VITALS: Ht 180.3 cm; Wt 85.0 kg
[2016-12-16 22:31] VITALS: BP 145/89
[2016-12-16] MEDS ORDERED: ONDANSETRON 4MG/2ML VIAL (J2405) IV ONE (23:00)
[2016-12-16] MEDS ORDERED: NS 1,000 ML IV ONE (23:00)
[2016-12-17 00:36] LABS: BASO % 0.6 % (0.0-1.0); EOS # 0.1 K/mm3 (0.0-0.50); EOS % 1.7 % (0.0-3.0); LARGE UNSTAINED CELL # 0.1 K/mm3 (0.0-0.4); LARGE UNSTAINED CELL % 2.2 % (0.0-4.0); LYMPH # 1.5 K/mm3 (1.5-4.5); LYMPH % 25.1 % (24.0-44.0); MEAN CORPUSCULAR HEMOGLOBIN 33.2 pg (27.0-33.0); MEAN CORPUSCULAR HGB CONC 35.3 g/dl (32.0-36.5); MEAN CORPUSCULAR VOLUME 93.8 fl (80.0-96.0); MONO # 0.7 K/mm3 (0.0-0.8); MONO % 10.9 % (0.0-5.0); NEUTROPHILS # 3.5 K/mm3 (1.8-7.7); NEUTROPHILS % 59.6 % (36.0-66.0); PLATELET COUNT, AUTOMATED 107 k/mm3 (150-450); RED CELL DISTRIBUTION WIDTH 12.4 % (11.5-14.5); WHITE BLOOD COUNT 5.9 K/mm3 (4.0-10.0)
[2016-12-17 00:44] LABS: ALBUMIN 3.8 GM/DL (3.2-5.2); ALBUMIN/GLOBULIN RATIO 1.06 (1.00-1.93); ALKALINE PHOSPHATASE 64 U/L (45-117); ALT/SGPT 51 U/L (12-78); ANION GAP 12 MEQ/L (8-16); AST/SGOT 36 U/L (15-37); BILIRUBIN,DIRECT 0.2 MG/DL (0.0-0.2); BLOOD UREA NITROGEN 11 MG/DL (7-18); CALCIUM LEVEL 9.4 MG/DL (8.5-10.1); CARBON DIOXIDE LEVEL 27 MEQ/L (21-32); CHLORIDE LEVEL 98 MEQ/L (98-107); CREATININE FOR GFR 0.61 MG/DL (0.70-1.30); GLOMERULAR FILTRATION RATE > 60.0 (>56); GLUCOSE, FASTING 212 MG/DL (70-105); POTASSIUM SERUM 3.9 MEQ/L (3.5-5.1); SODIUM LEVEL 137 MEQ/L (136-145); TOTAL PROTEIN 7.4 GM/DL (6.4-8.2)
[2016-12-17] MEDS ORDERED: ISOVUE-370 76% 100ML VIAL (Q9967) As Ordered ONE (01:37)
--- NOTE | 2016-12-17 02:10 | REPUSA ---
CLINICAL HISTORY: Abdominal pain. TECHNIQUE: Multiple axial, sagittal and coronal CT images were obtained through the abdomen and pelvi s after administration of oral and intravenous contrast material. COMMENTS: Comparion is made to 11/16/2016. The liver remains irregular with decreased attenuation without mass or defect. There is no intra or e xtrahepatic biliary ductal dilatation. The spleen is normal. The gallbladder is within normal limits. The pancreas is of normal contour and attenuation characteristics. There is no evidence of adrenal m ass. Both kidneys demonstrate prompt and equal nephrograms. The kidneys are normal in size, shape and conf iguration. There is no evidence of renal or ureteral mass. No renal or ureteral calculi are identifie d. There is no hydroureter or hydronephrosis. No evidence for appendicitis. There is no bowel wall thickening. No evidence for small or large ricardo l obstruction. There is no evidence of abdominal ascites or lymphadenopathy. There is no evidence of intrinsic or extrinsic bladder mass. There is no pelvic ascites or lymphadeno alex. Uncomplicated colonic diverticulosis. Images of the lung bases show no evidence of pleural or parenchymal mass. There are no pleural effusi ons. The bony structures are free of lytic or blastic lesions. Multilevel degenerative changes are seen in volving the thoracolumbar spine. Scattered calcifications are seen involving the aorta and major bran ches compatible with atherosclerosis. IMPRESSION: Unchanged irregular fatty liver. No evidence of acute abdominal or pelvic pathology. Thank you for your kind referral of this patient.
[2016-12-17] MEDS ORDERED: ZOFR4TAB3 PO (02:52)
[2016-12-17] MEDS ORDERED: ONDANSETRON 4MG/2ML VIAL (J2405) IV ONE (03:00)
== END 2016-12-17 03:24 | disposition home or self-care (01) ==
LOC: EDBD 21:57 → M ED 21:57
DX: R10.9 Unspecified abdominal pain (principal); R11.2 Nausea with vomiting, unspecified; F10.10 Alcohol abuse, uncomplicated
CPT/HCPCS: 74177; 80048; 80076; 83690; 85025; 93041; 96374; 96376; 99284; G0480; J2405; Q9967

== ENCOUNTER 2017-02-04 06:58 | Inpatient (IN) | payer MEDICAID ==
[~2017-02-04] VITALS: Ht 180.3 cm; Wt 87.7 kg
[2017-02-04 07:41] LABS: MEAN CORPUSCULAR HEMOGLOBIN 32.7 pg (27.0-33.0); MEAN CORPUSCULAR HGB CONC 34.1 g/dl (32.0-36.5); MEAN CORPUSCULAR VOLUME 95.8 fl (80.0-96.0); RED CELL DISTRIBUTION WIDTH 12.4 % (11.5-14.5)
[2017-02-04 08:08] LABS: METHADONE URINE NEGATIVE (NEGATIVE)
[2017-02-04 08:17] LABS: ALBUMIN 3.8 GM/DL (3.2-5.2); ALBUMIN/GLOBULIN RATIO 1.09 (1.00-1.93); ALKALINE PHOSPHATASE 72 U/L (45-117); ALT/SGPT 35 U/L (12-78); ANION GAP 12 MEQ/L (8-16); AST/SGOT 16 U/L (15-37); BILIRUBIN,DIRECT 0.1 MG/DL (0.0-0.2); BILIRUBIN,TOTAL 0.3 MG/DL (0.2-1.0); BLOOD UREA NITROGEN 13 MG/DL (7-18); CALCIUM LEVEL 8.7 MG/DL (8.5-10.1); CARBON DIOXIDE LEVEL 23 MEQ/L (21-32); CHLORIDE LEVEL 104 MEQ/L (98-107); CREATININE FOR GFR 0.64 MG/DL (0.70-1.30); GLOMERULAR FILTRATION RATE > 60.0 (>56); GLUCOSE, FASTING 221 MG/DL (70-105); POTASSIUM SERUM 4.1 MEQ/L (3.5-5.1); SODIUM LEVEL 139 MEQ/L (136-145); TOTAL PROTEIN 7.3 GM/DL (6.4-8.2)
[2017-02-04] MEDS ORDERED: PERCOCET 5MG/325MG TAB PO ONE (12:30)
[2017-02-04] MEDS ORDERED: ASPI81TA85 PO (13:11)
[2017-02-04] MEDS ORDERED: ATOR1TAB19 PO (13:12)
[2017-02-04] MEDS ORDERED: VITA100066 PO (13:13)
[2017-02-04] MEDS ORDERED: INSULANT SC (13:15)
[2017-02-04] MEDS ORDERED: CITA20TA4 PO (13:15)
[2017-02-04] MEDS ORDERED: ONDA4TAB6 PO (13:19)
[2017-02-04] MEDS ORDERED: PRIL20CA9 PO (13:19)
[2017-02-04] MEDS ORDERED: INSUHUMDS SC (13:19)
[2017-02-04] MEDS ORDERED: LISI10TA4 PO (13:23)
[2017-02-04] MEDS ORDERED: ZANA4TAB PO (13:23)
[2017-02-04] MEDS ORDERED: TRAZ1TAB14 PO (13:23)
[2017-02-04] MEDS ORDERED: SUCR1TAB56 PO (13:23)
[2017-02-04] MEDS ORDERED: FLOM5CAP PO (13:23)
[2017-02-04] MEDS ORDERED: ADVI200T PO (13:23)
[2017-02-04 18:20] VITALS: BP 136/84
[2017-02-04] MEDS ORDERED: ANALGESIC BALM CRM 120 GM TOP PRN (19:15)
[2017-02-04] MEDS ORDERED: GLUCOSE 4 GM CHEW TABLET PO PRN (19:15)
[2017-02-04] MEDS ORDERED: DEXTROSE 50% 50 ML SYRINGE IV PRN (19:15)
[2017-02-04] MEDS ORDERED: traZODone 50 MG TAB PO PRN (19:15)
[2017-02-04] MEDS ORDERED: GLUCAGON FOR INJ 1 MG VIAL (J1610) SC PRN (19:15)
[2017-02-04] MEDS ORDERED: MAALOX 30 ML SUSP *UDC PO PRN (19:15)
[2017-02-04] MEDS ORDERED: ONDANSETRON 4 MG ORAL DISINTEGRATING TAB (S0181) PO PRN (19:15)
[2017-02-04] MEDS: OMEPRAZOLE 20 MG CAP PO SCH (20:00)
[2017-02-04] MEDS: ATORVASTATIN 10 MG TAB PO SCH (20:01)
[2017-02-04] MEDS: ASPIRIN 81 MG ENTERIC TAB PO SCH (20:01)
[2017-02-04] MEDS: VITAMIN D 1,000 INTERNATIONAL UNITS TABLET PO SCH (20:01)
[2017-02-04] MEDS: CitaloPRAM (CeleXA) 20 MG TAB PO SCH (20:01)
[2017-02-04] MEDS: LISINOPRIL 10 MG TAB PO SCH (20:02)
[2017-02-04] MEDS: LEVEMIR (INSULIN DETEMIR) 1 UNITS/0.01ML SC SCH (20:04)
[2017-02-04] MEDS: HumaLOG INSULIN (NovoLOG) PER UNIT SC SCH (20:05)
[2017-02-05 06:19] VITALS: BP 137/87
[2017-02-05] MEDS: HumaLOG INSULIN (NovoLOG) PER UNIT SC SCH ×4 (06:30→20:23)
[2017-02-05] MEDS: ACETAMINOPHEN TAB 650MG DOSE (2X325MG) PO PRN ×3 (06:44→20:22)
[2017-02-05] MEDS: OMEPRAZOLE 20 MG CAP PO SCH (08:56)
[2017-02-05] MEDS: ATORVASTATIN 10 MG TAB PO SCH (08:56)
[2017-02-05] MEDS: VITAMIN D 1,000 INTERNATIONAL UNITS TABLET PO SCH (08:56)
[2017-02-05] MEDS: LISINOPRIL 10 MG TAB PO SCH (08:56)
[2017-02-05] MEDS: ASPIRIN 81 MG ENTERIC TAB PO SCH (08:56)
[2017-02-05] MEDS: CitaloPRAM (CeleXA) 20 MG TAB PO SCH (08:56)
[2017-02-05] MEDS: LEVEMIR (INSULIN DETEMIR) 1 UNITS/0.01ML SC SCH (08:57)
--- NOTE | 2017-02-05 09:22 | HPEPDOC ---
Medical History and Physical Date of Admission Feb 04, 2017 at 17:14 History and Physical PCP: none Infectious disease: Dr. Mcclendon ATTENDING: Dr. Eric Harrington HPI: Pt is a 56yo M admitted to [facility] for unspecified depressive disorder. He states his chronic low back pain has not been controlled. Unsteady on his feet at times. He states he has fallen at home since his last discharge. Sometimes he feels lightheaded and dizzy with position changes. He is currently ambulating with the assistance of a cane. He states he is frustrated regarding the management of this pain. He has not had any prescription medications for his pain. States he is not sure if he has been using any Zanaflex, his would know if he has it at home. Following his last discharge 11/20/16 the patient had been referred with appointment arranged to establish with a new primary care provider within a week. The patient states he had had a disagreement with his previous PCP at the [facility] clinic. The patient states when the day arrived to go to the appointment at the [facility] clinic his pain level was too bad and therefore he did not go to the appointment. He states his arranged for another new patient appointment at the [facility] at the [place]. He is not sure when this appointment is arranged for. He was seen by Dr. Leiva in the past. He has also been evaluated by [facility] pain mgmt. Denies any fevers, chills, HERCULES, CP, SOB, cough, palpitations, abdominal pain, N /V/D or changes in bowel or bladder habits. PMHx: History of MRSA Insulin-dependent diabetes Depression H/O SI Hepatitis C treated with Harvoni-finished 12/27. History of CVA in October 2014 Hypertension COPD History of GI bleed History of Dupuytren's contractures of bilateral feet and left hand Diabetic neuropathy Degenerative disc disease Farsighted Hearing loss BPH Diverticulosis History of orthostatic hypotension History of unsteady gait/fall EtOH use Opiate use Fracture of L3-L4 transverse process secondary to mechanical fall 09/29 Chronic thrombocytopenia PSHX: Upper and lower teeth extraction Tonsillectomy Liver biopsy 2007 Dupuytren's contracture status post left hand repair EGD/colonoscopy 01/28 SOCHX: Resides in: [place] Marital Status: Employment: Disabled Tobacco use: Quit 10 years ago, 1 pack per day 20 years ETOH: Denies regular use. States he had a "few beers" on "New Years" Illicit Drugs: Denies IV Drug Use: Denies Tattoos done unprofessionally: Denies FAMHX: Mother: secondary to MS age 63 Father: secondary to CVA age 88 Siblings: One brother secondary to complications from diabetes age 64 Children: Alive, well Unexpected deaths due to medical reasons: As above, otherwise unremarkable ROS: As noted in HPI, otherwise 11pt ROS of systems reviewed and remarkable only for history of CVA with residual spatial problems for which he utilizes a cane. PE: GEN: 55yoM, appears stated age. Well-nourished, well developed. No acute distress. Alert and oriented x 3. Pleasant, interactive. HEENT: Normocephalic, atraumatic. Pupils are equal, round, and reactive to light. Extraocular movements are intact. No nystagmus appreciated. Sclera are nonicteric. Conjunctiva without injection. Nose midline. No facial asymmetry. Moist mucous membranes. Edentulous, wearing upper dentures. Pharynx pink and moist, no cobblestoning. Neck supple, trachea midline. No lymphadenopathy or thyromegaly appreciated. CHEST: Regular rate and rhythm, +S1, +S2 LUNGS: Clear to auscultation bilaterally. No wheezes, rales, or rhonchi. Breathing appears symmetric and easy. Patient is speaking in full sentences. No accessory muscle use. ABD: Round, soft, non-tender, non-distended. +Bowel sounds throughout. No rebound or guarding. No costovertebral angle tenderness. EXT: There is ecchymosis noted right hand , left antecubital related to IV sites , no erythema/edema present. Pulses 2+ bilaterally dorsalis pedis and radial. No lower extremity edema appreciated. SKIN: Experiment, dry, warm. Capillary refill <2sec. No rashes. NEURO: Alert and oriented x 3. Cranial nerves III-XII are intact. No focal deficits appreciated. Ambulating with cane. EKG: Pending A&P: 56yoM admitted to [facility] for unspecified depressive disorder. 1. Psych. Plan per Psychiatry. EKG pending. 2. Abnormal TSH. Recheck TFTs in a.m. 3. History of orthostatic hypotension. Previously associated with dehydration. Encourage by mouth intake. Monitor I/O, daily weight. Follow precautions. Request orthostatic vital signs every 8 hours. Caution with medications which may contribute to orthostatic hypotension. 4. Arrange Follow up with PCP. 5. Unsteady gait. History of falls. Patient currently ambulates with a cane. Request follow-up precautions. Request physical therapy evaluation. 6. Insulin-dependent diabetes. CC diet. Levemir/SSI/ Hypoglycemia protocol. Recent hemoglobin A1c noted to be 8.5. 7. H/O Hepatitis C with completion of Harvoni as per Dr. Mcclendon. 8. Hypertension. Continue with lisinopril with hold parameters. 9. COPD. Albuterol HFA 2 puffs every 4 hours as needed. 10. History of GI bleed. Continues with aspirin given history of CVA. Continue with Prilosec and Carafate. 11. Diabetic neuropathy. 12. Degenerative disc disease/Chronic pain/L3-L4 transverse process fracture secondary to mechanical fall 09/29. Patient is reporting persistent pain. Request CT scan of lumbar spine. Request pain management evaluation. Continue with Tylenol 650 mg every 6 hours as needed. Continue ibuprofen 200 mg 4 times a day as needed. Continue Zanaflex 4 mg 3 times a day as needed. 13. History of CVA. aspirin 81 mg. Lipitor 10 mg daily. 14. BPH. Continue Flomax. 15. Chronic thrombocytopenia. Trend improved. 16. Staff member Ed present throughout exam. Vital Signs Vital Signs Date Time Temp Pulse Resp B/P (MAP) Pulse Ox O2 Delivery O2 Flow Rate FiO2 02/05/17 08:56 137/87 02/05/17 06:19 97.8 85 18 Room Air 02/04/17 18:20 97 Laboratory Data Labs 24H Laboratory Tests 2 02/04/17 19:54: Bedside Glucose (Misc Panel) 327H 02/05/17 06:14: Bedside Glucose (Misc Panel) 226H Home Medications Scheduled Aspirin (Aspir-81) 81 Mg Tab, 81 MG PO DAILY Atorvastatin Calcium (Atorvastatin Calcium) 10 Mg Tab, 10 MG PO DAILY Cholecalciferol (Vitamin D) 1,000 Unit Tab, 1,000 UNIT PO DAILY Citalopram Hydrobromide (Citalopram Hydrobromide) 20 Mg Tab, 20 MG PO DAILY Insulin Glargine (Lantus) 1 Units/0.01 Ml Susp, 50 UNITS SC QAM Insulin Human Lispro (Humalog) 1 Units/0.01 Ml Inj, 0 SC ACHS PER SLIDING SCALE. MAX 29 UNITS PER DAY Lisinopril (Lisinopril) 10 Mg Tab, 10 MG PO DAILY Omeprazole (Prilosec) 20 Mg Cap, 20 MG PO DAILY Sucralfate (Sucralfate) 1 Gm Tab, 1 GM PO ACHS Tamsulosin Hydrochloride (Flomax) 0.4 Mg Cap, 0.4 MG PO DAILY Trazodone HCl (Trazodone HCl) 150 Mg Tab, 150 MG PO QHS Scheduled PRN (Bengay Greaseless 10-15 %) 1 Cre Cre, 1 DOSE TOP BIDP PRN for PAIN APPLIED TO LEGS Ibuprofen (Advil) 200 Mg Tab, 200 MG PO QID PRN for PAIN Ondansetron (Ondansetron Odt) 4 Mg Tab, 4 MG PO Q4H PRN for NAUSEA Tizanidine Hydrochloride (Zanaflex) 4 Mg Tab, 1 TAB PO TID PRN for MUSCLE SPASMS Allergies Coded Allergies: TAPE (Verified Allergy, Unknown, 12/02/13) Midazolam (Verified Adverse Reaction, Intermediate, "GO CRAZY", 02/15/13) Radha Burdick Feb 05, 2017 09:22
[2017-02-05] MEDS ORDERED: ALBUTEROL 90 MCG/ACT 8GM HFA INHALER INH PRN (09:30)
--- NOTE | 2017-02-05 10:06 | REP ---
CT LUMBAR SPINE WITHOUT CONTRAST: HISTORY: Fracture. COMPARISON: 11/16/2016 A diffuse disc bulge is present at the L1-2 level. There is minimal compression of the thecal sac. The L1 nerves exit the neural foramina without compression. A diffuse disc bulge is present at the L2-3 level. There is hypertrophy of the ligamenta flava and posterior articulating facets. These findings produce minimal central canal stenosis. The L2 nerves exit the neural foramina without compression. A diffuse disc bulge is present at the L3-4 level. There is hypertrophy of the ligamenta flava and posterior articulating facets. These findings produce minimal central canal stenosis. The L3 nerves exit the neural foramina without compression. A diffuse disc bulge is present at the L4-5 level. There is minimal compression of the thecal sac. There is hypertrophy of the posterior articulating facets. The L4 nerves exit the neural foramina without compression. A diffuse disc bulge is present at the L5-S1 level. This abuts the S1 nerves. There is no thecal sac compression. There is hypertrophy of the posterior articulating facets. The L5 nerves exit the neural foramina without compression. The L3-4 and L4-5 intervertebral discs are decreased in height consistent with disc degeneration. There is no subluxation. There is a healed fracture of the right third transverse process. There is a healing fracture of the right fourth transverse process. IMPRESSION: 1. Diffuse disc bulges at the L1-2 and L4-5 levels with minimal thecal sac compression. 2. Minimal central canal stenosis at the L2-3 and L3-4 levels secondary to disc bulge, ligamentous and facet hypertrophy. 3. Diffuse disc bulge at the L5-S1 level. This abuts the S1 nerves. 4. There is a healed fracture of the right third transverse process. There is a healing fracture of the right fourth transverse process. Signed by Yunier Mckeon MD 02/05/2017 10:35 A
[2017-02-05] MEDS: SUCRALFATE 1 GM TAB PO SCH ×3 (12:14→20:22)
[2017-02-05] MEDS: IBUPROFEN 200 MG TAB PO PRN ×2 (12:29→20:25)
[2017-02-05 14:00] VITALS: BP_SYST 127; BP_SYST 132; BP_SYST 139; BP_DIAS 74; BP_DIAS 89; BP_DIAS 92
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
--- NOTE | 2017-02-05 17:04 | ECGEPIP ---
Stationary ECG Study [facility] Test Date: 2017-02-05 Pat Name: JUANA ROMEO Department: Room: [place] [address] Gender: M [employer] Consultant: : 1960 Requested By: Radha Burdick Order Number: [id number] Reading MD: Drea Navarro Measurements Intervals [place] Rate: 68 P: 13 NH: 151 QRS: -21 QRSD: T: 44 QT: 418 QTc: 445 Interpretive Statements SINUS RHYTHM LEFT AXIS DEVIATION LOW VOLTAGE LIMB BORDERLINE NEW SUSPECT LEAD REVERSAL V1 AND V2 RATE SLOWER THAN 11/15/16 Electronically Signed On 02-05-2017 17:04:10 EDT by Drea Navarro
[2017-02-05] MEDS: tiZANidine 4 MG TAB PO PRN (20:22)
[2017-02-05] MEDS: traZODone 50 MG TAB PO PRN (20:23)
[2017-02-06] MEDS: SUCRALFATE 1 GM TAB PO SCH ×4 (06:46→20:05)
[2017-02-06] MEDS: ACETAMINOPHEN TAB 650MG DOSE (2X325MG) PO PRN ×2 (06:47→20:05)
[2017-02-06] MEDS: HumaLOG INSULIN (NovoLOG) PER UNIT SC SCH ×4 (06:48→20:06)
[2017-02-06 07:22] VITALS: BP 114/68
[2017-02-06 07:33] LABS: THYROXINE (T4) 8.6 UG/DL (4.5-12.0)
[2017-02-06] MEDS: LEVEMIR (INSULIN DETEMIR) 1 UNITS/0.01ML SC SCH (08:07)
[2017-02-06] MEDS: CitaloPRAM (CeleXA) 20 MG TAB PO SCH (08:07)
[2017-02-06] MEDS: ASPIRIN 81 MG ENTERIC TAB PO SCH (08:07)
[2017-02-06] MEDS: VITAMIN D 1,000 INTERNATIONAL UNITS TABLET PO SCH (08:07)
[2017-02-06] MEDS: LISINOPRIL 10 MG TAB PO SCH (08:07)
[2017-02-06] MEDS: ATORVASTATIN 10 MG TAB PO SCH (08:07)
[2017-02-06] MEDS: OMEPRAZOLE 20 MG CAP PO SCH (08:07)
[2017-02-06] MEDS: IBUPROFEN 200 MG TAB PO PRN ×3 (08:08→17:17)
[2017-02-06] MEDS: tiZANidine 4 MG TAB PO PRN ×2 (09:10→17:17)
[2017-02-06] MEDS: MOM 30ML SUSPENSION UDC PO PRN (16:07)
--- NOTE | 2017-02-06 16:55 | CR.PDOC ---
[facility] Consultation General Date of Consultation: 02/06/17 Chief Complaint The patient is a 56-year-old male admitted with a reason for visit of Unspecified Depressive Disorder. Pain management is asked to see for complaints of back pain History of Present Illness Jarrod Flores is a 56-year-old gentleman who was admitted again to [address] on 02/04/2017. His last discharge was on 11/20/2016. Since then he has had several falls at home. Reports his pain is not been managed and because of this, he has been using alcohol. He was to establish with a new primary care provider at the [facility]. However, he did not attend that appointment. He has seen Dr. Leiva in the past at [facility] for his back pain. He has also been evaluated by CLIFFORD Reese from [facility]. He reports his pain is centered across the low back with radiation to the hips and legs, left side greater than right. Reports it is hard for him to stand and walk. Rates his pain level today as a 7-8/10 and states the pain is worse with ambulation. Denies any loss of bowel or bladder control. Home Medications Scheduled Aspirin (Aspir-81) 81 Mg Tab, 81 MG PO DAILY, (Reported) Atorvastatin Calcium (Atorvastatin Calcium) 10 Mg Tab, 10 MG PO DAILY, (Reported ) Cholecalciferol (Vitamin D) 1,000 Unit Tab, 1,000 UNIT PO DAILY, (Reported) Citalopram Hydrobromide (Citalopram Hydrobromide) 20 Mg Tab, 20 MG PO DAILY, ( Reported) Insulin Glargine (Lantus) 1 Units/0.01 Ml Susp, 50 UNITS SC QAM, (Reported) Insulin Human Lispro (Humalog) 1 Units/0.01 Ml Inj, 0 SC ACHS, (Reported) PER SLIDING SCALE. MAX 29 UNITS PER DAY Lisinopril (Lisinopril) 10 Mg Tab, 10 MG PO DAILY, (Reported) Omeprazole (Prilosec) 20 Mg Cap, 20 MG PO DAILY, (Reported) Sucralfate (Sucralfate) 1 Gm Tab, 1 GM PO ACHS, (Reported) Tamsulosin Hydrochloride (Flomax) 0.4 Mg Cap, 0.4 MG PO DAILY, (Reported) Trazodone HCl (Trazodone HCl) 150 Mg Tab, 150 MG PO QHS, (Reported) Scheduled PRN (Bengay Greaseless 10-15 %) 1 Cre Cre, 1 DOSE TOP BIDP PRN for PAIN, (Reported) APPLIED TO LEGS Ibuprofen (Advil) 200 Mg Tab, 200 MG PO QID PRN for PAIN, (Reported) Ondansetron (Ondansetron Odt) 4 Mg Tab, 4 MG PO Q4H PRN for NAUSEA, (Reported) Tizanidine Hydrochloride (Zanaflex) 4 Mg Tab, 1 TAB PO TID PRN for MUSCLE SPASMS , (Reported) Allergies Coded Allergies: TAPE (Verified Allergy, Unknown, 12/02/13) Midazolam (Verified Adverse Reaction, Intermediate, "GO CRAZY", 02/15/13) Past Medical History Medical History Past medical history significant for diabetic peripheral neuropathy and insulin- dependent diabetes. Has history of depression with suicidal ideation. History of hepatitis C treated by Dr. Arauz and [facility] and has completed her bony therapy December 2014. History of CVA October 2014. History of GI bleed, COPD, hypertension, history of alcohol use, history of fracture, L3-4 transverse process secondary to mechanical fall in September 2016. History of chronic thrombocytopenia. Family History Family History Noncontributory Social History Social History Significant alcohol use. Tobacco use on reports none in the last 10 years. Is , lives in [place]. Review of Systems Subjective HEENT: Denies: head aches, vision problems, hearing problems Skin: Denies: lesions, rash, breakdown Pulmonary: Reports: cough (denies), shortness of breath (with exertion) Cardiovascular: Denies: chest pain, edema, palpitations Gastrointestinal: Reports: abdominal pain (intermittent abdominal and epigastric pain), constipation, Denies: loss of bowel control Genitourinary: Denies: dysuria, hematuria, loss of bladder control Endocrine: Reports: Diabetes mellitus (insulin-dependent) Musculoskeletal: Reports: muscle pain, spasms, muscle stiffness Neurological: Reports: numbness, pre-existing deficit, weakness (reports generalized lower extremity weakness), Denies: headache, seizures Psych: Reports: thoughts of self harm (reports only thinks of hurting himself when he does not have pain medication or when his pain is too severe) Physical Examination Physical Examination Vital Signs/I&O Vital Signs Date Time Temp Pulse Resp B/P (MAP) Pulse Ox O2 Delivery O2 Flow Rate FiO2 02/06/17 08:07 114/68 02/06/17 07:22 97.6 96 18 Room Air 02/05/17 14:00 96 General Exam: Positive: alert, attentive, talkative, no acute distress, oriented times three ENT EXAM: Positive: normocephalic Neck Exam: Positive: Other (decreased neck rotation, extension and flexion. Poor shoulder shrug), Negative: Lymphadenopathy, Thyromegaly Chest Exam: Positive: Clear to auscultation, Negative: Wheezing, Rales Heart Exam: Positive: Regular rate and rhythm, Normal S1, S2, Negative: Murmurs, Rubs Abdominal Exam: Positive: Normal bowel sounds, Soft, Nondistended Extremity Exam: Negative: Edema Skin Exam: Positive: Warm, Dry, Negative: Rashes, Lesions Neuro Exam: Positive: Gait is antalgic, Posture is stooped, Deep tendon reflexes 1+ Psych Exam: Positive: Mental status NL, Mood NL, Other (pleasant to interact with) Inspection of spine Point tenderness with palpation over lumbar spinous processes. No specific tenderness with the lift with palpation over bilateral sacroiliac joints. Has difficulty coming to a full upright position. Gait is wide-based and antalgic. Musculoskeletal Trigger points and tight fibrous bands are identified over lumbar paraspinous muscles. Has difficulty coming to a full upright position. Some weakness is noted in quad muscles. Able to rise to us. Right standing position Diagnostic and Imaging Studies CT scan of lumbar spine was completed on 02/05/2017. This does demonstrate hypertrophy of the ligamenta flava and posterior articulating facets at L2-3, L3 -4, L4-5 and L5-S1. There is a healing fracture of the right fourth transverse process. There is a old healed fracture at the right third transverse process. Assessment 1. Chronic low back pain. 2. Lumbar facet arthropathy 3. New healing transverse process fracture, right fourth on lumbar vertebrae. 4. Multiple medical problems including insulin-dependent diabetes mellitus, history of hepatitis C, status post her bony, history of recurrent admission status post fall, alcohol abuse, and depression with suicidal ideation. Recommendation and Plan Lengthy discussion was held with Sean Mark regarding options for treatment. He has been a patient of Dr. Leiva, so would recommend that he return to their practice for further evaluation and care. He may be a candidate for diagnostic lumbar facet block and if this is successful, radiofrequency denervation. I did talk to Mr. Flores about medications. I did share with him that we do not feel that it is safe for him to be on opiate medications. He he has a history of GI distress and a long history of alcohol use. He is at high risk for GI bleed and so would recommend against NSAIDs. He may find some relief with gabapentin 300 mg 2 or 3 times per day. I did recommend use of meditation and yoga for pain control. And I would also recommend use of Tylenol at less than 3000 mg per day. He states that Dr. Mcclendon told him he must never take Tylenol. Did point out to him that the Tylenol under controlled circumstances is probably of less harm than the alcohol. I did also suggest Lidoderm patch, but he states that this is not helpful. Thank you Gennaro, for allowing us to participate in the care of your patient, German Flores . Should you have any questions we will be glad to discuss this with you at any time please contact us here at the pain center at [phone]. Mignon Phelan Feb 06, 2017 16:54
--- NOTE | 2017-02-06 17:05 | MHIPNPDOC ---
[facility] Progress Note Progress Note DATE OF SERVICE: 02/06/17 HISTORY: Reports that his pain and depression are both better, feels that restarting Celexa has been helpful. Understands that pain management here does not wish to prescribe opioids and is accepting of this. Reports that he would like to be discharge before Thursday so he can make his appointment to reestablish primary care. VITAL SIGNS: See below. NEW TEST RESULTS: see below CURRENT MEDICATIONS: See below. MENTAL STATUS EXAMINATION: Patient is a 56-year old male, who appears the stated age; dressed in personal clothes, walks with cane; good eye contact, calm and cooperative Speech: Is fluent, normal rate and volume Thought processes including: linear, logical, goal-directed Thought content: denies SI/HI; focused on reestablishing primary care Description of abnormal or psychotic thoughts: no evidence of psychotic thoughts Judgment: good Insight: good Orientation: x3 Recent and remote memory: intact Attention span and concentration: intact Mood: "better". Affect: euthymic, full range; congruent to mood and thought content DIAGNOSES: Depressive Disorder secondary to chronic pain ASSESSMENT: Patient has responded well to reinitiation of psychotropic medications and interventions to reduce his pain. He has been able to participate in milieu activities and reports some benefit from these. Patient will remain under observation for the time being to ensure that he has adequate medication management, available coping skills, and no intolerable adverse reactions from his medication. He will likely be ready for discharge after the weekend with plan to reestablish care through his PCP and [facility] MANAGEMENT PLAN: continue current medications; will follow pain management recommendations; begin discharge planning TIME SPENT: 15 minutes. Vital Signs Vital Signs Date Time Temp Pulse Resp B/P (MAP) Pulse Ox O2 Delivery O2 Flow Rate FiO2 02/06/17 08:07 114/68 02/06/17 07:22 97.6 96 18 Room Air 02/05/17 14:00 96 Laboratory Data 24H Labs Laboratory Tests 2 02/05/17 17:17: Bedside Glucose (Misc Panel) 196H 02/05/17 20:17: Bedside Glucose (Misc Panel) 258H 02/06/17 06:44: Bedside Glucose (Misc Panel) 228H 02/06/17 06:52: Thyroid Stimulating Hormone (TSH) 0.600, Free Thyroxine Index 3.5, Thyroxine (T4 ) 8.6, Triiodothyronine (T3) Uptake 41H 02/06/17 12:13: Bedside Glucose (Misc Panel) 284H Current Medications Current Medications Acetaminophen (Tylenol Tab) 650 mg Q6HP PRN PO HEADACHE or DISCOMFORT Last administered on 02/06/17 06:47; Start 02/04/17 at 19:15; Stop 03/06/17 at 19:14 Al Hydrox/Mg Hydrox/Simethicone (Mylanta) 30 ml Q4HP PRN PO HEARTBURN/ INDIGESTION; Start 02/04/17 at 19:15; Stop 03/06/17 at 19:14 Albuterol Sulfate (Proventil, Ventolin Hfa) 2 puff Q4HP PRN INH SHORTNESS OF BREATH; Start 02/05/17 at 09:30; Stop 03/07/17 at 09:29 Aspirin (Ecotrin) 81 mg DAILY PO Last administered on 02/06/17 08:07; Start at 09:00; Stop 03/06/17 at 08:59 Atorvastatin Calcium (Lipitor) 10 mg DAILY PO Last administered on 02/06/17 08 :07; Start 02/04/17 at 09:00; Stop 03/06/17 at 08:59 Citalopram Hydrobromide (CeleXA) 20 mg DAILY PO Last administered on 02/06/17 08:07; Start 02/04/17 at 09:00; Stop 03/06/17 at 08:59 Dextrose (Dextrose 50%) 25 ml ASDIRECTED PRN IV SEE LABEL COMMENTS; Start 02/04 at 19:15; Stop 03/06/17 at 19:14 Glucagon (Glucagon) 1 mg ASDIRECTED PRN SC SEE LABEL COMMENTS; Start 02/04/17 at 19:15; Stop 03/06/17 at 19:14 Glucose (Glucose) 16 GM ASDIRECTED PRN PO SEE LABEL COMMENTS; Start 02/04/17 at 19:15; Stop 03/06/17 at 19:14 Home Med (Med Rec Complete!) ASDIRECTED XX ; Start 02/04/17 at 13:30; Stop at 13:30; Status DC Ibuprofen (Advil) 200 mg QID PRN PO PAIN Last administered on 02/06/17 12:17; Start 02/05/17 at 09:30; Stop 03/07/17 at 09:29 Insulin Detemir (Levemir Insulin) 50 units QAM SC Last administered on 08:07; Start 02/04/17 at 09:00; Stop 03/06/17 at 08:59 Insulin Human Lispro (HumaLOG INSULIN) See Protocol Table AC SC Last administered on 02/06/17 12:19; Start 02/05/17 at 07:30; Stop 03/07/17 at 07:29 Insulin Human Lispro (HumaLOG INSULIN) See Protocol Table QHS SC Last administered on 02/05/17 20:23; Start 02/04/17 at 21:00; Stop 03/06/17 at 20:59 Lisinopril (Prinivil) 10 mg DAILY PO Last administered on 02/06/17 08:07; Start 02/04/17 at 09:00; Stop 03/06/17 at 08:59 Magnesium Hydroxide (Milk Of Magnesia) 30 ml DAILYPRN PRN PO CONSTIPATION Last administered on 02/06/17 16:07; Start 02/04/17 at 19:15; Stop 03/06/17 at 19:14 Menthol/Methyl Salicylate (Bengay Cream) 1 dose BID PRN TOP PAIN; Start at 19:15; Stop 03/06/17 at 19:14 Omeprazole (PriLOSEC) 20 mg DAILY PO Last administered on 02/06/17 08:07; Start 02/04/17 at 09:00; Stop 03/06/17 at 08:59 Ondansetron HCl (Zofran Odt) 4 mg Q6HP PRN PO NAUSEA OR VOMITING; Start at 19:15; Stop 02/06/17 at 19:15 Sucralfate (Carafate) 1 gm ACHS PO Last administered on 02/06/17 12:16; Start 02/05/17 at 12:00; Stop 03/07/17 at 11:59 Tizanidine HCl (Zanaflex) 4 mg TID PRN PO MUSCLE SPASMS Last administered on 09:10; Start 02/05/17 at 09:30; Stop 03/07/17 at 09:29 Trazodone HCl (Desyrel) 50 mg QHSP PRN PO INSOMNIA Last administered on 20:01; Start 02/04/17 at 19:15; Stop 02/05/17 at 10:38; Status DC Trazodone HCl (Desyrel) 150 mg QHSP PRN PO INSOMNIA Last administered on 20:23; Start 02/05/17 at 10:30; Stop 03/07/17 at 10:29 Vitamin D (Vitamin D) 1,000 units DAILY PO Last administered on 02/06/17 08:07 ; Start 02/04/17 at 09:00; Stop 03/06/17 at 08:59 Allergies Coded Allergies: TAPE (Verified Allergy, Unknown, 12/02/13) Midazolam (Verified Adverse Reaction, Intermediate, "GO CRAZY", 02/15/13) JOYCE ZENDEJAS MD Feb 06, 2017 17:05
[2017-02-06 18:00] VITALS: BP 133/81
[2017-02-06] MEDS: traZODone 50 MG TAB PO PRN (20:05)
[2017-02-07 06:00] VITALS: BP 121/78
[2017-02-07] MEDS: SUCRALFATE 1 GM TAB PO SCH ×4 (06:48→20:06)
[2017-02-07] MEDS: tiZANidine 4 MG TAB PO PRN ×2 (06:48→20:06)
[2017-02-07] MEDS: ACETAMINOPHEN TAB 650MG DOSE (2X325MG) PO PRN (06:49)
[2017-02-07] MEDS: HumaLOG INSULIN (NovoLOG) PER UNIT SC SCH ×4 (06:50→20:07)
[2017-02-07] MEDS: ASPIRIN 81 MG ENTERIC TAB PO SCH (08:44)
[2017-02-07] MEDS: CitaloPRAM (CeleXA) 20 MG TAB PO SCH (08:44)
[2017-02-07] MEDS: LEVEMIR (INSULIN DETEMIR) 1 UNITS/0.01ML SC SCH (08:44)
[2017-02-07] MEDS: VITAMIN D 1,000 INTERNATIONAL UNITS TABLET PO SCH (08:44)
[2017-02-07] MEDS: ATORVASTATIN 10 MG TAB PO SCH (08:44)
[2017-02-07] MEDS: LISINOPRIL 10 MG TAB PO SCH (08:44)
[2017-02-07] MEDS: OMEPRAZOLE 20 MG CAP PO SCH (08:44)
[2017-02-07] MEDS: IBUPROFEN 200 MG TAB PO PRN (09:36)
[2017-02-07] MEDS: ACETAMINOPHEN 325 MG TAB PO SCH ×2 (12:17→20:06)
[2017-02-07] MEDS: GABAPENTIN 300 MG CAP PO SCH ×3 (12:23→20:05)
--- NOTE | 2017-02-07 15:06 | MHIPNPDOC ---
[facility] Progress Note Progress Note DATE OF SERVICE: 02/07/17 HISTORY: Reports that his depression is much better but that he has been having some increased pain today; informed patient about Pain Service recommendations and he states he is willing to try whatever they have recommended. Otherwise feels that his provoking factors for admission have resolved for the most part and that he feels close to baseline. VITAL SIGNS: See below. NEW TEST RESULTS: see below CURRENT MEDICATIONS: See below. MENTAL STATUS EXAMINATION: Patient is a 56-year old male, who appears the stated age, dressed in personal clothes; calm and cooperative, makes good eye contact Speech: Is fluent; normal volume and tone Thought processes including: linear, logical, goal-oriented Thought content: denies SI/HI; intact associations Description of abnormal or psychotic thoughts: denies AVH, no evidence of internal stimuli; no paranoid or delusional thoughts elicited Judgment: good Insight: good Orientation: x3 Recent and remote memory: intact Attention span and concentration: intact Mood: "much better". Affect: euthymic; full range; congruent to stated mood DIAGNOSES: Depressive Disorder secondary to chronic pain Unspecified Personality Disorder with Cluster C traits ASSESSMENT: Patient has been responding well to the treatment and groups on the unit. He has been cooperative with all recommendations and reports a general increase in his mood. There are no acute safety concerns at this time but the patient would benefit from continued monitoring due to adjustments in his medication. Plan to discharge patient early next week so that he can reestablish primary medical and psychiatric care. MANAGEMENT PLAN: Continue current psychotropic medications; will follow Pain Service recommendations for pain control TIME SPENT: 15 minutes. Vital Signs Vital Signs Date Time Temp Pulse Resp B/P (MAP) Pulse Ox O2 Delivery O2 Flow Rate FiO2 02/07/17 08:44 121/78 02/07/17 06:00 98.5 77 18 02/06/17 07:22 Room Air 02/05/17 14:00 96 Laboratory Data 24H Labs Laboratory Tests 2 02/06/17 17:21: Bedside Glucose (Misc Panel) 219H 02/06/17 20:00: Bedside Glucose (Misc Panel) 243H 02/07/17 06:31: Bedside Glucose (Misc Panel) 231H 02/07/17 12:05: Bedside Glucose (Misc Panel) 256H Current Medications Current Medications Acetaminophen (Tylenol Tab) 650 mg Q6HP PRN PO HEADACHE or DISCOMFORT Last administered on 02/07/17 06:49; Start 02/04/17 at 19:15; Stop 02/07/17 at 10:26 ; Status DC Acetaminophen (Tylenol Tab) 975 mg TID PO Last administered on 02/07/17 12:17 ; Start 02/07/17 at 12:30; Stop 03/09/17 at 12:29 Acetaminophen (Tylenol Tab) 975 mg TID PO ; Start 02/07/17 at 16:00; Stop at 16:00; Status DC Al Hydrox/Mg Hydrox/Simethicone (Mylanta) 30 ml Q4HP PRN PO HEARTBURN/ INDIGESTION; Start 02/04/17 at 19:15; Stop 03/06/17 at 19:14 Albuterol Sulfate (Proventil, Ventolin Hfa) 2 puff Q4HP PRN INH SHORTNESS OF BREATH; Start 02/05/17 at 09:30; Stop 03/07/17 at 09:29 Aspirin (Ecotrin) 81 mg DAILY PO Last administered on 02/07/17 08:44; Start at 09:00; Stop 03/06/17 at 08:59 Atorvastatin Calcium (Lipitor) 10 mg DAILY PO Last administered on 02/07/17 08 :44; Start 02/04/17 at 09:00; Stop 03/06/17 at 08:59 Citalopram Hydrobromide (CeleXA) 20 mg DAILY PO Last administered on 02/07/17 08:44; Start 02/04/17 at 09:00; Stop 03/06/17 at 08:59 Dextrose (Dextrose 50%) 25 ml ASDIRECTED PRN IV SEE LABEL COMMENTS; Start 02/04 at 19:15; Stop 03/06/17 at 19:14 Gabapentin (Neurontin) 300 mg TID PO Last administered on 02/07/17 12:23; Start 02/07/17 at 09:00; Stop 03/09/17 at 08:59 Glucagon (Glucagon) 1 mg ASDIRECTED PRN SC SEE LABEL COMMENTS; Start 02/04/17 at 19:15; Stop 03/06/17 at 19:14 Glucose (Glucose) 16 GM ASDIRECTED PRN PO SEE LABEL COMMENTS; Start 02/04/17 at 19:15; Stop 03/06/17 at 19:14 Home Med (Med Rec Complete!) ASDIRECTED XX ; Start 02/04/17 at 13:30; Stop at 13:30; Status DC Ibuprofen (Advil) 200 mg QID PRN PO PAIN Last administered on 02/07/17 09:36; Start 02/05/17 at 09:30; Stop 03/07/17 at 09:29 Insulin Detemir (Levemir Insulin) 50 units QAM SC Last administered on 08:44; Start 02/04/17 at 09:00; Stop 03/06/17 at 08:59 Insulin Human Lispro (HumaLOG INSULIN) See Protocol Table AC SC Last administered on 02/07/17 12:18; Start 02/05/17 at 07:30; Stop 03/07/17 at 07:29 Insulin Human Lispro (HumaLOG INSULIN) See Protocol Table QHS SC Last administered on 02/05/17 20:23; Start 02/04/17 at 21:00; Stop 03/06/17 at 20:59 Lisinopril (Prinivil) 10 mg DAILY PO Last administered on 02/07/17 08:44; Start 02/04/17 at 09:00; Stop 03/06/17 at 08:59 Magnesium Hydroxide (Milk Of Magnesia) 30 ml DAILYPRN PRN PO CONSTIPATION Last administered on 02/06/17 16:07; Start 02/04/17 at 19:15; Stop 03/06/17 at 19:14 Menthol/Methyl Salicylate (Bengay Cream) 1 dose BID PRN TOP PAIN; Start at 19:15; Stop 03/06/17 at 19:14 Omeprazole (PriLOSEC) 20 mg DAILY PO Last administered on 02/07/17 08:44; Start 02/04/17 at 09:00; Stop 03/06/17 at 08:59 Ondansetron HCl (Zofran Odt) 4 mg Q6HP PRN PO NAUSEA OR VOMITING; Start at 19:15; Stop 02/06/17 at 19:15; Status DC Sucralfate (Carafate) 1 gm ACHS PO Last administered on 02/07/17 12:16; Start 02/05/17 at 12:00; Stop 03/07/17 at 11:59 Tizanidine HCl (Zanaflex) 4 mg TID PRN PO MUSCLE SPASMS Last administered on 06:48; Start 02/05/17 at 09:30; Stop 03/07/17 at 09:29 Trazodone HCl (Desyrel) 50 mg QHSP PRN PO INSOMNIA Last administered on 20:01; Start 02/04/17 at 19:15; Stop 02/05/17 at 10:38; Status DC Trazodone HCl (Desyrel) 150 mg QHSP PRN PO INSOMNIA Last administered on 20:05; Start 02/05/17 at 10:30; Stop 03/07/17 at 10:29 Vitamin D (Vitamin D) 1,000 units DAILY PO Last administered on 02/07/17 08:44 ; Start 02/04/17 at 09:00; Stop 03/06/17 at 08:59 Allergies Coded Allergies: TAPE (Verified Allergy, Unknown, 12/02/13) Midazolam (Verified Adverse Reaction, Intermediate, "GO CRAZY", 02/15/13) JOYCE ZENDEJAS MD Feb 07, 2017 15:06
[2017-02-07] MEDS ORDERED: ACETAMINOPHEN 325 MG TAB PO ONE (16:00)
[2017-02-07] MEDS ORDERED: ACETAMINOPHEN 325 MG TAB PO SCH (16:00)
[2017-02-07 18:00] VITALS: BP_SYST 132; BP_SYST 140; BP_DIAS 91; BP_DIAS 93
[2017-02-07] MEDS: traZODone 50 MG TAB PO PRN (21:12)
[2017-02-08] MEDS: SUCRALFATE 1 GM TAB PO SCH ×4 (06:34→20:07)
[2017-02-08] MEDS: HumaLOG INSULIN (NovoLOG) PER UNIT SC SCH ×4 (06:35→20:09)
[2017-02-08 06:48] VITALS: BP 132/81
[2017-02-08] MEDS: OMEPRAZOLE 20 MG CAP PO SCH (08:15)
[2017-02-08] MEDS: MOM 30ML SUSPENSION UDC PO PRN (08:15)
[2017-02-08] MEDS: VITAMIN D 1,000 INTERNATIONAL UNITS TABLET PO SCH (08:15)
[2017-02-08] MEDS: GABAPENTIN 300 MG CAP PO SCH ×3 (08:15→20:07)
[2017-02-08] MEDS: LEVEMIR (INSULIN DETEMIR) 1 UNITS/0.01ML SC SCH (08:15)
[2017-02-08] MEDS: tiZANidine 4 MG TAB PO PRN ×2 (08:15→17:10)
[2017-02-08] MEDS: ASPIRIN 81 MG ENTERIC TAB PO SCH (08:15)
[2017-02-08] MEDS: CitaloPRAM (CeleXA) 20 MG TAB PO SCH (08:15)
[2017-02-08] MEDS: ATORVASTATIN 10 MG TAB PO SCH (08:15)
[2017-02-08] MEDS: LISINOPRIL 10 MG TAB PO SCH (08:15)
[2017-02-08] MEDS: IBUPROFEN 200 MG TAB PO PRN ×2 (08:16→14:52)
[2017-02-08] MEDS: ACETAMINOPHEN 325 MG TAB PO SCH ×3 (08:19→20:07)
--- NOTE | 2017-02-08 11:16 | MHIPNPDOC ---
[facility] Progress Note Progress Note DATE OF SERVICE: 02/08/17 HISTORY: Patient reports he is doing better, has slept well, appetite is good, mood is improved. His pain is under control since medications were adjusted yesterday and because pain is under control his mood is good. VITAL SIGNS: See below. NEW TEST RESULTS: see below CURRENT MEDICATIONS: See below. MENTAL STATUS EXAMINATION: Patient is a 56-year old male, who is alert, oriented 3, cooperative with interview, with good eye contact, pleasant, looking stated age Speech: Spontaneous and fluent Thought processes including: Intact, goal-directed Thought content: Coherent Description of abnormal or psychotic thoughts: Denies auditory and visual hallucinations, denies thought delusions, denies suicidal and homicidal ideation. He is not responding to internal stimuli Judgment: Fair Insight: Fair Orientation: x3 Recent and remote memory: Intact Attention span and concentration: Fair Mood: "I'm feeling great". Affect: Full range, appropriate, congruent to mood DIAGNOSES: Depressive Disorder secondary to chronic pain Unspecified Personality Disorder with Cluster C traits ASSESSMENT: Patient is doing much better, his pain is under control and he is happy because he will be going to his primary care physician this next Thursday. He has had good response to medications and he is motivated to continue treatment for his medical illnesses and for the mental health issues. Important for patient to have pain after control and to have regular visits to his medical doctor to make adjustments to pain medications if needed. MANAGEMENT PLAN: Continue with the same medications, encourage him to attend groups. TIME SPENT: 15 minutes. Vital Signs Vital Signs Date Time Temp Pulse Resp B/P (MAP) Pulse Ox O2 Delivery O2 Flow Rate FiO2 02/08/17 08:15 132/81 02/08/17 06:48 97.8 56 18 02/06/17 07:22 Room Air 02/05/17 14:00 96 Laboratory Data 24H Labs Laboratory Tests 2 02/07/17 12:05: Bedside Glucose (Misc Panel) 256H 02/07/17 17:13: Bedside Glucose (Misc Panel) 230H 02/07/17 20:02: Bedside Glucose (Misc Panel) 245H 02/08/17 06:18: Bedside Glucose (Misc Panel) 251H Current Medications Current Medications Acetaminophen (Tylenol Tab) 650 mg Q6HP PRN PO HEADACHE or DISCOMFORT Last administered on 02/07/17 06:49; Start 02/04/17 at 19:15; Stop 02/07/17 at 10:26 ; Status DC Acetaminophen (Tylenol Tab) 975 mg TID PO Last administered on 02/08/17 08:19 ; Start 02/07/17 at 12:30; Stop 03/09/17 at 12:29 Acetaminophen (Tylenol Tab) 975 mg TID PO ; Start 02/07/17 at 16:00; Stop at 16:00; Status DC Al Hydrox/Mg Hydrox/Simethicone (Mylanta) 30 ml Q4HP PRN PO HEARTBURN/ INDIGESTION; Start 02/04/17 at 19:15; Stop 03/06/17 at 19:14 Albuterol Sulfate (Proventil, Ventolin Hfa) 2 puff Q4HP PRN INH SHORTNESS OF BREATH; Start 02/05/17 at 09:30; Stop 03/07/17 at 09:29 Aspirin (Ecotrin) 81 mg DAILY PO Last administered on 02/08/17 08:15; Start at 09:00; Stop 03/06/17 at 08:59 Atorvastatin Calcium (Lipitor) 10 mg DAILY PO Last administered on 02/08/17 08 :15; Start 02/04/17 at 09:00; Stop 03/06/17 at 08:59 Citalopram Hydrobromide (CeleXA) 20 mg DAILY PO Last administered on 02/08/17 08:15; Start 02/04/17 at 09:00; Stop 03/06/17 at 08:59 Dextrose (Dextrose 50%) 25 ml ASDIRECTED PRN IV SEE LABEL COMMENTS; Start 02/04 at 19:15; Stop 03/06/17 at 19:14 Gabapentin (Neurontin) 300 mg TID PO Last administered on 02/08/17 08:15; Start 02/07/17 at 09:00; Stop 03/09/17 at 08:59 Glucagon (Glucagon) 1 mg ASDIRECTED PRN SC SEE LABEL COMMENTS; Start 02/04/17 at 19:15; Stop 03/06/17 at 19:14 Glucose (Glucose) 16 GM ASDIRECTED PRN PO SEE LABEL COMMENTS; Start 02/04/17 at 19:15; Stop 03/06/17 at 19:14 Home Med (Med Rec Complete!) ASDIRECTED XX ; Start 02/04/17 at 13:30; Stop at 13:30; Status DC Ibuprofen (Advil) 200 mg QID PRN PO PAIN Last administered on 02/08/17 08:16; Start 02/05/17 at 09:30; Stop 03/07/17 at 09:29 Insulin Detemir (Levemir Insulin) 50 units QAM SC Last administered on 08:15; Start 02/04/17 at 09:00; Stop 03/06/17 at 08:59 Insulin Human Lispro (HumaLOG INSULIN) See Protocol Table AC SC Last administered on 02/08/17 06:35; Start 02/05/17 at 07:30; Stop 03/07/17 at 07:29 Insulin Human Lispro (HumaLOG INSULIN) See Protocol Table QHS SC Last administered on 02/05/17 20:23; Start 02/04/17 at 21:00; Stop 03/06/17 at 20:59 Lisinopril (Prinivil) 10 mg DAILY PO Last administered on 02/08/17 08:15; Start 02/04/17 at 09:00; Stop 03/06/17 at 08:59 Magnesium Hydroxide (Milk Of Magnesia) 30 ml DAILYPRN PRN PO CONSTIPATION Last administered on 02/08/17 08:15; Start 02/04/17 at 19:15; Stop 03/06/17 at 19:14 Menthol/Methyl Salicylate (Bengay Cream) 1 dose BID PRN TOP PAIN; Start at 19:15; Stop 03/06/17 at 19:14 Omeprazole (PriLOSEC) 20 mg DAILY PO Last administered on 02/08/17 08:15; Start 02/04/17 at 09:00; Stop 03/06/17 at 08:59 Ondansetron HCl (Zofran Odt) 4 mg Q6HP PRN PO NAUSEA OR VOMITING; Start at 19:15; Stop 02/06/17 at 19:15; Status DC Sucralfate (Carafate) 1 gm ACHS PO Last administered on 02/08/17 06:34; Start 02/05/17 at 12:00; Stop 03/07/17 at 11:59 Tizanidine HCl (Zanaflex) 4 mg TID PRN PO MUSCLE SPASMS Last administered on 08:15; Start 02/05/17 at 09:30; Stop 03/07/17 at 09:29 Trazodone HCl (Desyrel) 50 mg QHSP PRN PO INSOMNIA Last administered on 20:01; Start 02/04/17 at 19:15; Stop 02/05/17 at 10:38; Status DC Trazodone HCl (Desyrel) 150 mg QHSP PRN PO INSOMNIA Last administered on 21:12; Start 02/05/17 at 10:30; Stop 03/07/17 at 10:29 Vitamin D (Vitamin D) 1,000 units DAILY PO Last administered on 02/08/17 08:15 ; Start 02/04/17 at 09:00; Stop 03/06/17 at 08:59 Allergies Coded Allergies: TAPE (Verified Allergy, Unknown, 12/02/13) Midazolam (Verified Adverse Reaction, Intermediate, "GO CRAZY", 02/15/13) SINDY DANIEL MD Feb 08, 2017 11:16
[2017-02-08 18:54] VITALS: BP_SYST 131; BP_SYST 136; BP_DIAS 85
[2017-02-08] MEDS: traZODone 50 MG TAB PO PRN (21:08)
[2017-02-09] MEDS: tiZANidine 4 MG TAB PO PRN ×2 (01:13→08:03)
[2017-02-09] MEDS: IBUPROFEN 200 MG TAB PO PRN (01:13)
[2017-02-09 06:00] VITALS: BP_SYST 122; BP_SYST 127; BP_SYST 134; BP_DIAS 84; BP_DIAS 86
[2017-02-09] MEDS: SUCRALFATE 1 GM TAB PO SCH (06:44)
[2017-02-09] MEDS: HumaLOG INSULIN (NovoLOG) PER UNIT SC SCH (06:45)
[2017-02-09] MEDS: GABAPENTIN 300 MG CAP PO SCH (08:03)
[2017-02-09 08:04] VITALS: BP 122/84
[2017-02-09] MEDS: CitaloPRAM (CeleXA) 20 MG TAB PO SCH (08:04)
[2017-02-09] MEDS: VITAMIN D 1,000 INTERNATIONAL UNITS TABLET PO SCH (08:04)
[2017-02-09] MEDS: ACETAMINOPHEN 325 MG TAB PO SCH (08:04)
[2017-02-09] MEDS: OMEPRAZOLE 20 MG CAP PO SCH (08:04)
[2017-02-09] MEDS: ATORVASTATIN 10 MG TAB PO SCH (08:04)
[2017-02-09] MEDS: LISINOPRIL 10 MG TAB PO SCH (08:04)
[2017-02-09] MEDS: ASPIRIN 81 MG ENTERIC TAB PO SCH (08:04)
[2017-02-09] MEDS: LEVEMIR (INSULIN DETEMIR) 1 UNITS/0.01ML SC SCH (08:05)
[2017-02-09] MEDS: MOM 30ML SUSPENSION UDC PO PRN (09:12)
[2017-02-09] MEDS ORDERED: ACET32TAB PO (09:42)
[2017-02-09] MEDS ORDERED: GABA-282 PO (09:42)
--- NOTE | 2017-02-09 16:18 | MHDSPDOC ---
[facility] Discharge Summary Discharge Summary DATE OF ADMISSION: Feb 04, 2017 at 17:14 DATE OF DISCHARGE: Feb 09, 2017 at 11:55 DISCHARGE DIAGNOSES: Depressive Disorder secondary to chronic pain Unspecified Personality Disorder with Cluster C traits REASON FOR ADMISSION: Suicidal ideation due to acute on chronic pain and lack of medical services. CONSULTANTS INVOLVED: Pain service TREATMENT AND PROGRESS ON THE UNIT : Patient was admitted from the ED and restarted on his previous psychotropic medications which he had not had access to after losing contact with his outpatient providers. A pain consult was ordered and recommendations were followed. Patient responded well to pharmacological interventions and was able to begin creating coping skills to assist him with dealing with breakthrough pain. He was discharged so that he could reestablish primary care services and continue to follow with outpatient Psychiatry. HOSPITAL COURSE: Patient was restarted on his home psychotropic medications without complaint. His trazodone dose was adjusted to his previously specified dose and the patient was able to maintain adequate sleep. Patient's mood rapidly improved and his pain was lessened as well. After recommendations from pain service were initiated the patient reported rapid decrease in his remaining pain. He expressed interest in being discharged early in his admission as he had an appointment scheduled to reestablish primary care. After patient was given some time to develop coping skills and be monitored for medication reactions he was discharged to home with plan to reestablish primary care and continue with outpatient Psychiatry. Patient denied suicidal ideation throughout his stay and reported that he only developed SI during times of severe uncontrolled pain. He participated in multiple group therapy sessions and reported developing new coping skills to distract him through his pain. DISCHARGE ASSESSMENT: 56 year old man with depression secondary to chronic pain. As the patient's pain now appears better controlled the patient's acute mood instability has improved. Given that he has now been restarted on antidepressant medications and will be continuing to follow with a PCP for medical management the patient will likely continue with his current resilience. Patient will need to work in outpatient to develop further coping skills to manage breakthrough pain and to assist with resilience in future medical issues. At this time there are no safety concerns and he may be discharged to home with regular outpatient follow-up. MENTAL STATUS EXAMINATION ON DISCHARGE: Patient is a 56-year old male, who is dressed in personal clothes; he appears the stated age and has good hygiene; eye contact is good, calm and cooperative Speech is fluent; normal volume and tone Thought processes including: logical, linear, goal-directed Thought content: denies SI/HI; focused on maintaining his medical relationships Abstract reasoning, and computation: intact Description of associations: intact Description of abnormal or psychotic thoughts: does no appear internally preoccupied; no evidence of delusional or paranoid thoughts Judgment: good Insight: good Orientation to x3 Recent and remote memory: intact Attention span and concentration: intact Mood: "really good" Affect: euthymic/bright; full range, congruent to stated mood MEDICATIONS ON DISCHARGE: see below for med list; no changes from previous recommendations PLAN/FOLLOWUP ARRANGEMENTS: has PCP appointment tomorrow; will be established with [facility] for further psychiatric needs The amount of time spent in the coordination of care for this patient was approximately 30 minutes. Vital Signs/I&Os Vital Signs Date Time Temp Pulse Resp B/P (MAP) Pulse Ox O2 Delivery O2 Flow Rate FiO2 02/09/17 08:04 122/84 02/09/17 06:00 66 80 02/08/17 18:00 98.3 18 02/06/17 07:22 Room Air 02/05/17 14:00 96 Laboratory Data Labs 24H Laboratory Tests 2 02/08/17 17:07: Bedside Glucose (Misc Panel) 292H 02/08/17 20:05: Bedside Glucose (Misc Panel) 252H 02/09/17 06:32: Bedside Glucose (Misc Panel) 217H 02/09/17 10:59: Bedside Glucose (Misc Panel) 204H Medications Scheduled Acetaminophen (Mapap) 325 Mg Tab, 975 MG PO TID for pain, #63 Aspirin (Aspir-81) 81 Mg Tab, 81 MG PO DAILY, (Reported) Atorvastatin Calcium (Atorvastatin Calcium) 10 Mg Tab, 10 MG PO DAILY, (Reported ) Cholecalciferol (Vitamin D) 1,000 Unit Tab, 1,000 UNIT PO DAILY, (Reported) Citalopram Hydrobromide (Citalopram Hydrobromide) 20 Mg Tab, 20 MG PO DAILY, ( Reported) Gabapentin (Gabapentin) 300 Mg Cap, 300 MG PO TID for PAIN, #21 Insulin Glargine (Lantus) 1 Units/0.01 Ml Susp, 50 UNITS SC QAM, (Reported) Insulin Human Lispro (Humalog) 1 Units/0.01 Ml Inj, 0 SC ACHS, (Reported) PER SLIDING SCALE. MAX 29 UNITS PER DAY Lisinopril (Lisinopril) 10 Mg Tab, 10 MG PO DAILY, (Reported) Omeprazole (Prilosec) 20 Mg Cap, 20 MG PO DAILY, (Reported) Sucralfate (Sucralfate) 1 Gm Tab, 1 GM PO ACHS, (Reported) Tamsulosin Hydrochloride (Flomax) 0.4 Mg Cap, 0.4 MG PO DAILY, (Reported) Trazodone HCl (Trazodone HCl) 150 Mg Tab, 150 MG PO QHS, (Reported) Scheduled PRN (Bengay Greaseless 10-15 %) 1 Cre Cre, 1 DOSE TOP BIDP PRN for PAIN, (Reported) APPLIED TO LEGS Ibuprofen (Advil) 200 Mg Tab, 200 MG PO QID PRN for PAIN, (Reported) Ondansetron (Ondansetron Odt) 4 Mg Tab, 4 MG PO Q4H PRN for NAUSEA, (Reported) Tizanidine Hydrochloride (Zanaflex) 4 Mg Tab, 1 TAB PO TID PRN for MUSCLE SPASMS , (Reported) Allergies Coded Allergies: TAPE (Verified Allergy, Unknown, 12/02/13) Midazolam (Verified Adverse Reaction, Intermediate, "GO CRAZY", 02/15/13) JOYCE ZENDEJAS MD Feb 09, 2017 16:18
== END 2017-02-09 11:55 | disposition home or self-care (01) | DRG 754 ==
LOC: M ED 06:58 → M ED INP 17:14 → M PSY 18:10
PROVIDERS: ADMIT Psychiatry & Neurology Psychiatry; ATTEND Psychiatry & Neurology Psychiatry
DX: F32.9 Major depressive disorder, single episode, unspecified (principal); E11.40 Type 2 diabetes mellitus with diabetic neuropathy, unspecified; R45.851 Suicidal ideations; D69.6 Thrombocytopenia, unspecified; J44.9 Chronic obstructive pulmonary disease, unspecified; G89.29 Other chronic pain; Z79.899 Other long term (current) drug therapy; Z79.4 Long term (current) use of insulin; Z79.82 Long term (current) use of aspirin; Z88.8 Allergy status to other drugs, medicaments and biological substances; I10 Essential (primary) hypertension; Z86.73 Personal history of transient ischemic attack (TIA), and cerebral infarction without residual deficits; N40.0 Benign prostatic hyperplasia without lower urinary tract symptoms; K57.30 Diverticulosis of large intestine without perforation or abscess without bleeding; Z87.891 Personal history of nicotine dependence; F10.10 Alcohol abuse, uncomplicated; R26.89 Other abnormalities of gait and mobility; M51.36 Other intervertebral disc degeneration, lumbar region

== ENCOUNTER → 2017-03-06 | Outpatient (CLI) | payer MEDICAID ==
[~2017-03-06] MED LIST changes: +ACET32TAB PO; +ADVI200T PO; +GABA-282 PO; +ONDA4TAB6 PO; +SUCR1TAB56 PO; +ZANA4TAB PO
--- NOTE | 2017-03-17 00:01 | ECWPNPC ---
PATIENT NAME: JUANA ROMEO : 1960 GENDER: MALE VISIT DATE: 03/06/2017 DISCHARGE DATE: 03/06/17 1024 VISIT LOCKED DATE TIME: PHYSICIAN: ANGUS AYALA RESOURCE: ANGUS AYALA REASON FOR APPOINTMENT 1. LOW BACK PAIN HISTORY OF PRESENT ILLNESS HISTORY OF PRESENT ILLNESS: PAIN THE PATIENT DESCRIBES THE PAIN... 56 YEAR OLD MALE PATIENT WITH HISTORY OF CHRONIC LOW BACK PAIN. PATIENT DESCRIBES THE PAIN ACHING, TENDER, SORE, SHOOTING, AND HAVING IT ALL THE TIME WITH A PAIN SCORE OF 8/10. PATIENT STATES HIS LOW BACK PAIN STARTED MANY YEARS AGO BUT IT BECAME SEVERE WHEN HE FELL ROUGHLY TWO MONTHS AGO WHILE STANDING UP FROM THE TOILET WHEN HE BECAME VERY DIZZY AND FELL. PATIENT REPORTS BREAKING HIS BACK WHEN HE FELL. CURRENTLY THE PATIENT IS USING TIZANIDINE AND GABAPENTIN TO AID IN PAIN RELIEF. PATIENT WAS USING OXYCONTIN BUT WAS TAKEN OFF OF IT DUE TO SUICIDAL THOUGHTS. PATIENT DENIES UNEXPLAINABLE WEIGHT LOSS, FEVER, CHILLS, NEW CHANGES ON HIS URINARY OR BOWEL CONTROL. FALL RISK SCREENING: SCREENING :NO FALLS IN THE PAST YEAR CURRENT MEDICATIONS TAKING ASPIR-81 81 MG TABLET DELAYED RELEASE 1 TABLET ORALLY ONCE A DAY TAKING ALBUTEROL SULFATE HFA 108 (90 BASE) MCG/ACT AEROSOL SOLUTION 2 PUFFS INHALATION EVERY 4 HOURS NEEDED TAKING ADVAIR DISKUS 500-50 MCG/DOSE POWDER 1 PUFF INHALATION TWICE A DAY TAKING GLUCOMETER ONE TOUCH - GLUCOMETER ICD:250.02 IDDM FSBS FOUR TIMES DAILY TAKING ADJUSTABLE ALUMINUM CANE __ MISCELLANEOUS ICD: 355.9 ___ TAKING SYRINGE (DISPOSABLE) 100 UNITS MISCELLANEOUS 1 NEEDLE/SYRINGE INTRADERMALLY 4 TIMES A DAY TAKING GLUCOSE BLOOD ONE TOUCH STRIP TEST STRIPS ICD: E11.9 IDDM FSBS FOUR TIMES DAILY TAKING CARAFATE 1 GM/10ML SUSPENSION 10 ML ORALLY TWICE A DAY TAKING FLOMAX 0.4 MG CAPSULE 1 CAPSULE 30 MINUTES AFTER THE SAME MEAL EACH DAY ORALLY ONCE A DAY TAKING PRILOSEC 20 MG CAPSULE DELAYED RELEASE 2 CAPSULE ORALLY ONCE A DAY NEEDED TAKING CITALOPRAM HYDROBROMIDE 20 MG TABLET 1 TABLET ORALLY ONCE A DAY TAKING LANTUS 100 UNIT/ML SOLUTION 50 UNITS SUBCUTANEOUS TWICE DAILY TAKING HUMALOG 100 UNIT/ML SOLUTION PER SLIDING SCALE SUBCUTANEOUS BEFORE MEALS MDD: 100 UNITS TAKING ONDANSETRON 4 MG TABLET DISINTEGRATING 1 TABLET ON THE TONGUE AND ALLOW TO DISSOLVE ORALLY EVERY 4 HRS TAKING TIZANIDINE HCL 4 MG TABLET 2 TABLET NEEDED ORALLY THREE TIMES A DAY TAKING LISINOPRIL 10 MG TABLET 1 TABLET ORALLY ONCE A DAY TAKING ATORVASTATIN CALCIUM 10 MG TABLET 1 TABLET ORALLY ONCE A DAY TAKING VITAMIN D 1000 UNIT TABLET 1 TABLET ORALLY ONCE A DAY TAKING TRAZODONE HCL 150 MG TABLET 1 TABLET AT BEDTIME NEEDED ORALLY ONCE A DAY TAKING GABAPENTIN 300 MG CAPSULE 1 CAPSULE ORALLY THREE TIMES A DAY NOT-TAKING CARAFATE 1 GM/10ML SUSPENSION 10 ML ORALLY TWICE A DAY NOT-TAKING PRILOSEC 20 MG CAPSULE DELAYED RELEASE 2 CAPSULES ORALLY ONCE A DAY MEDICATION LIST REVIEWED AND RECONCILED WITH THE PATIENT PAST MEDICAL HISTORY COPD SPIROMETRY 02/14/15 DIABETES MELLITUS TYPE 2 SINCE 1980 CHRONIC HEPATITIS C GENOTYPE 1A LIVER CIRRHOSIS F4, HEPATITIS A- HEPATITIS B NEGATIVE DIAGNOSED AGE 16 TREATED WITH HARVONI FOR 12 WEEKS -11/2014 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 ETOH ABUSE ECHO 2013: EF 65-70%, MILD LVH WITH PRESERVED LV SYSTOLIC FUNCTION AND GRADE 1 DIASTOLIC DYSFUNCTION, NO SIGNS OF PULMONARY HYPERTENSION ECHO OCTOBER 2014: EF 60% GRADE 1 DIASTOLIC DYSFUNCTION, BORDERLINE LVH ALLERGIES VERSED: PSYCHOTIC REACTION: ALLERGY PLASTIC OR VINYL TAPE: TEARS SKIN: ALLERGY SURGICAL HISTORY LIVER BIOPSY 2007 TONSILLECTOMY LEFT HAND SURGERY 08/16-08/17 COLONOSCOPY/ENDOSCOPY BY DR AGUILA 10/2013 DUPUYTREN'S CONTRACTURE RELEASE, LEFT HAND 01/26 COLONOSCOPY: NONTHROMBOSED EXTERNAL HEMORRHOIDS IN PERIANAL, INTERNAL HEMORRHOIDS 01/22/2016 EGD: NORMAL ESOPHAGUS, STOMACH, DUODENUM JANUARY 2016 FAMILY HISTORY FATHER: 78 YRS, HEART FAILURE, CVA, , [place], DIAGNOSED WITH STROKE MOTHER: 63 YRS, HEART FAILURE, VT, HTN, THROAT CANCER, DIAGNOSED WITH HYPERTENSION, HEART DISEASE SIBLINGS: ALIVE 60 YRS, QUARDPLE BYPASS 1 BROTHER(S) . 3 SON(S) , 1 DAUGHTER(S) - HEALTHY. SOCIAL HISTORY GENERAL: TOBACCO USE ARE YOU A:FORMER SMOKER HOW LONG HAS IT BEEN SINCE YOU LAST SMOKED?> 10 YEARS LUNG CANCER SCREENING SMOKING STATUS:FORMER SMOKER BMI CARE GOAL FOLLOW-UP ABOVE NORMAL BMI FOLLOW-UPDIETARY MANAGEMENT EDUCATION, GUIDANCE, AND COUNSELING ALCOHOL SCREENING POINTS5 INTERPRETATIONPOSITIVE RECREATIONAL DRUG USE DENIES. CAFFEINE 6 GLASSES OF TEA / DAY. OCCUPATION: DISABLED.. DIET: CONSISTENT CARBOHYDRATES. EXERCISE: NONE. MARITAL STATUS: . PETS: INSIDE MANA PATRICK. 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 LEARNING BARRIERS / SPECIAL NEEDS BARRIERS TO LEARNING?NO HEARING IMPAIRED?NO VISION IMPAIRED?YES :CORRECTIVE LENSES COGNITIVELY IMPAIRED?NO READINESS TO LEARN?YES LEARNING PREFERENCES?YES :DEMONSTRATION/VERBAL INSTRUCTION LEARNING CAPABILITIES PRESENT?YES EMOTIONAL BARRIERS?NO ADVANCE DIRECTIVES HEALTH CARE PROXY?NO DO YOU HAVE A DNR?NO LIVING WILL?NO POWER OF BREAK OFF WORKER?NO TRAVEL OUTSIDE US: [place]: 01/27. HOSPITALIZATION/MAJOR DIAGNOSTIC PROCEDURE ACUTE SMALL/MEDIUM R POSTERIOR TEMPORAL AND PARIETAL STROKE 11/08/2014 DUE TO STROKE- 4 DAYS 11/2014 MRSA 2011, , [facility]: SUICIDAL THOUGHTS 01/2015 ANXIETY AND DEPRESSION 06/11/2015 [facility] 02/15/16-02/22/16 REVIEW OF SYSTEMS REVIEWED BY: PROVIDER: ANGUS AYALA MD . CONSTITUTIONAL: ANY CHANGE IN YOUR MEDICAL CONDITION? NO . CHILLS NO . FEVER NO . INFECTION: DO YOU HAVE NEW INFECTIONS? NO . DO YOU HAVE HISTORY OF MRSA? NO . MUSCULOSKELETAL: ANY NEW PATTERNS OF PAIN OR NUMBNESS? NO . GASTROENTEROLOGY: ANY NEW CHANGE IN BOWEL CONTROL? YES, N/V/D AND CONSTIPATION. PT STATES HE IS SEEING DR. DOS SANTOS FOR THIS . GENITOURINARY: ANY NEW CHANGE IN BLADDER CONTROL? NO . IS THERE A CHANCE YOU COULD BE ? NO . HEMATOLOGY/LYMPH: DO YOU TAKE ANY BLOOD THINNERS? (FOR EXAMPLE- COUMADIN, PLAVIX, AGGRENOX, PLATEL, PRADAXA, OR XARELTO) NO . WHEN WAS YOUR LAST DOSE? DATE: TIME: . NEUROLOGY: HAVE YOU FALLEN IN THE PAST 6 MONTHS? YES, PT STATES FROM ORTHOSTATIC HYPOTENSION. PT STATES HE FALLS FREQUENTLY. PT STATES HE HAS FALLEN AND BROKEN HIS BACK X2. PT STATES HE WAS SEEING DR. GRAHAM FOR THIS AND INJECTIONS WERE NOT WORKING, SO PT WAS REFERRED TO US . ANY NEW EXTREMITY NUMBNESS OR WEAKNESS? NO . CARDIOLOGY: DO YOU HAVE A PACEMAKER OR DEFIBRILLATOR? NO . RESPIRATORY: HAVE YOU BEEN SICK IN THE PAST WEEK? NO . FEVER NO . FLU LIKE SYMPTOMS? NO . COUGH NO . INTEGUMENTARY: DO YOU HAVE ANY RASHES OR OPEN SORES? NO . ALLERGIC/IMMUNO: ARE YOU ALLERGIC TO SHELLFISH OR IV DYE? NO . ANY NEW ALLERGIES? NO . PSYCHIATRIC: DO YOU HAVE THOUGHTS OF HURTING YOURSELF OR SOMEONE ELSE? NO . ARE YOU ABUSED, NEGLECTED, OR IN AN UNSAFE ENVIRONMENT? NO . ENDOCRINOLOGY: ARE YOU DIABETIC? YES . OTHER: DO YOU NEED ANY PRESCRIPTIONS? NO . IF YES, PLEASE LIST: ____ . ANY NEW PROBLEMS WITH YOUR MEDICATIONS? NO . WHEN DID YOU LAST EAT? ____ . WHEN DID YOU LAST DRINK? ____ . WHAT DID YOU LAST DRINK? ____ . NAME OF PERSON DRIVING YOU HOME? ____ . DO YOU HAVE ANY OTHER QUESTIONS OR CONCERNS NO . VITAL SIGNS WT 189 LBS, HT 69 IN, BMI 27.91 INDEX, BP 119/70 MM HG, HR 79 /MIN, RR 18 /MIN, TEMP 97.4 F, OXYGEN SAT % 97%, NA INITIALS SC 09:03, REVIEWED BY: EM. EXAMINATION : PATIENT IS ALERT O X 3 AND COOPERATIVE. TENDERNESS IN THE LOWER BACK AND PARASPINAL MUSCLE GROUP. XRAY OF THE LUMBAR SPINE DONE ON 12/26/14 SHOWS DEGENERATIVE DISC CHANGES. ASSESSMENTS SPONDYLOSIS OF LUMBAR REGION WITHOUT MYELOPATHY OR RADICULOPATHY - M47.816 (PRIMARY) SPONDYLOSIS OF LUMBOSACRAL REGION WITHOUT MYELOPATHY OR RADICULOPATHY - M47.817 TREATMENT SPONDYLOSIS OF LUMBAR REGION WITHOUT MYELOPATHY OR RADICULOPATHY NOTES: WE DISCUSSED SEVERAL ISSUES WITH MR. ROMEO'S PAIN MANAGEMENT CASE. I WOULD LIKE THE PATIENT TO CONTINUE WITH THE SAME MEDICATION REGIME UNTIL I AM ABLE TO SPEAK WITH THE PATIENT'S PRIMARY CARE DOCTOR WELL AT THE PSYCHOLOGIST. I WOULD ALSO LIKE TO VIEW THE UPDATED MRI AND CT AFTER THE PATIENT HAD THE FALL. MR. ROMEO WILL FOLLOW UP WITH HIS PRIMARY CARE DOCTOR TO EXPLORE REASONS WHY THE BONES IN THE BACK BROKE. PATIENT WILL FOLLOW UP IN ONE WEEK AFTER I HAVE DISCUSSED WITH THE DOCTORS AND VIEWED THE UPDATED IMAGING. INSTRUCTIONS WERE GIVEN, QUESTIONS WERE ANSWERED, PATIENT REPORTS UNDERSTANDING AND AGREES WITH THE PLAN. I, RENITA BRAUN, DOCUMENTED THE ABOVE INFORMATION ACTING A SCRIBE FOR DR. AYALA. I HAVE REVIEWED THE ABOVE DOCUMENT, WRITTEN BY RENITA NAIR AND I VERIFY THAT IT IS ACCURATE. DEAR DR. DURAN:THANK YOU FOR YOUR KIND REFERRAL OF MR. ROMEO. IF YOU WANT TO DISCUSS HIS CASE WITH ME PLEASE CALL ME AT THE PAIN CENTER AT [phone]. SINCERELY,ANGUS AYALA, [facility]. PROCEDURE CODES FA211 ESTABILISHED PATIENT [facility] CHARGE DISPOSITION & COMMUNICATION FOLLOW UP 1 WEEK ELECTRONICALLY SIGNED BY ANGUS AYALA MD ON 03/16/2017 AT 01:09 PM EDT DISCLAIMER : THIS IS A VISIT SUMMARY EXTRACTED FROM THE [employer] Smart[employer] RFID CHART. IT IS NOT A COPY OF THE [employer] PROGRESS NOTE. ALPA
== END ==
LOC: M PAIN 09:00
PROVIDERS: ATTEND Anesthesiology
DX: G89.29 Other chronic pain (principal); M47.816 Spondylosis without myelopathy or radiculopathy, lumbar region; M47.817 Spondylosis without myelopathy or radiculopathy, lumbosacral region; J44.9 Chronic obstructive pulmonary disease, unspecified; E11.9 Type 2 diabetes mellitus without complications; F32.9 Major depressive disorder, single episode, unspecified; I10 Essential (primary) hypertension; K21.9 Gastro-esophageal reflux disease without esophagitis; E55.9 Vitamin D deficiency, unspecified; Z87.891 Personal history of nicotine dependence; Z88.4 Allergy status to anesthetic agent; L23.1 Allergic contact dermatitis due to adhesives; Z79.82 Long term (current) use of aspirin; Z79.4 Long term (current) use of insulin; Z79.899 Other long term (current) drug therapy; Z91.5 Personal history of self-harm; Z91.81 History of falling

== ENCOUNTER → 2017-03-12 | Outpatient (CLI) | payer MEDICAID ==
--- NOTE | 2017-03-24 00:20 | ECWPNPC ---
PATIENT NAME: JUANA ROMEO : 1960 GENDER: MALE VISIT DATE: 03/12/2017 DISCHARGE DATE: 03/12/17 1605 VISIT LOCKED DATE TIME: PHYSICIAN: ANGUS AYALA RESOURCE: ANGUS AYALA REASON FOR APPOINTMENT 1. LOW BACK PAIN HISTORY OF PRESENT ILLNESS HISTORY OF PRESENT ILLNESS: PAIN THE PATIENT DESCRIBES THE PAIN... 56 YEAR OLD MALE PATIENT WITH HISTORY OF CHRONIC LOW BACK PAIN. PATIENT DESCRIBES THE PAIN ACHING, TENDER, SORE, SHOOTING, AND HAVING IT ALL THE TIME WITH A PAIN SCORE OF 8/10. PATIENT STATES HIS LOW BACK PAIN STARTED MANY YEARS AGO BUT IT BECAME SEVERE WHEN HE FELL ROUGHLY TWO MONTHS AGO WHILE STANDING UP FROM THE TOILET WHEN HE BECAME VERY DIZZY AND FELL. PATIENT REPORTS BREAKING HIS BACK WHEN HE FELL. CURRENTLY THE PATIENT IS USING TIZANIDINE AND GABAPENTIN TO AID IN PAIN RELIEF. PATIENT WAS USING OXYCONTIN BUT WAS TAKEN OFF OF IT DUE TO SUICIDAL THOUGHTS AND ATTEMPTS. MR. ROMEO REPORTS HAVING TRIGGER POINTS AT DR. GRAHAM'S OFFICE BUT DID NOT RECEIVE ANY PAIN RELIEF FROM THE INJECTION. PATIENT DENIES UNEXPLAINABLE WEIGHT LOSS, FEVER, CHILLS, NEW CHANGES ON HIS URINARY OR BOWEL CONTROL. FALL RISK SCREENING: SCREENING :NO FALLS IN THE PAST YEAR CURRENT MEDICATIONS TAKING ASPIR-81 81 MG TABLET DELAYED RELEASE 1 TABLET ORALLY ONCE A DAY TAKING ALBUTEROL SULFATE HFA 108 (90 BASE) MCG/ACT AEROSOL SOLUTION 2 PUFFS INHALATION EVERY 4 HOURS NEEDED TAKING ADVAIR DISKUS 500-50 MCG/DOSE POWDER 1 PUFF INHALATION TWICE A DAY TAKING GLUCOMETER ONE TOUCH - GLUCOMETER ICD:250.02 IDDM FSBS FOUR TIMES DAILY TAKING ADJUSTABLE ALUMINUM CANE __ MISCELLANEOUS ICD: 355.9 ___ TAKING SYRINGE (DISPOSABLE) 100 UNITS MISCELLANEOUS 1 NEEDLE/SYRINGE INTRADERMALLY 4 TIMES A DAY TAKING GLUCOSE BLOOD ONE TOUCH STRIP TEST STRIPS ICD: E11.9 IDDM FSBS FOUR TIMES DAILY TAKING CARAFATE 1 GM/10ML SUSPENSION 10 ML ORALLY TWICE A DAY TAKING FLOMAX 0.4 MG CAPSULE 1 CAPSULE 30 MINUTES AFTER THE SAME MEAL EACH DAY ORALLY ONCE A DAY TAKING PRILOSEC 20 MG CAPSULE DELAYED RELEASE 2 CAPSULE ORALLY ONCE A DAY NEEDED TAKING CITALOPRAM HYDROBROMIDE 20 MG TABLET 1 TABLET ORALLY ONCE A DAY TAKING LANTUS 100 UNIT/ML SOLUTION 50 UNITS SUBCUTANEOUS TWICE DAILY TAKING HUMALOG 100 UNIT/ML SOLUTION PER SLIDING SCALE SUBCUTANEOUS BEFORE MEALS MDD: 100 UNITS TAKING ONDANSETRON 4 MG TABLET DISINTEGRATING 1 TABLET ON THE TONGUE AND ALLOW TO DISSOLVE ORALLY EVERY 4 HRS TAKING TIZANIDINE HCL 4 MG TABLET 2 TABLET NEEDED ORALLY THREE TIMES A DAY TAKING LISINOPRIL 10 MG TABLET 1 TABLET ORALLY ONCE A DAY TAKING ATORVASTATIN CALCIUM 10 MG TABLET 1 TABLET ORALLY ONCE A DAY TAKING VITAMIN D 1000 UNIT TABLET 1 TABLET ORALLY ONCE A DAY TAKING TRAZODONE HCL 150 MG TABLET 1 TABLET AT BEDTIME NEEDED ORALLY ONCE A DAY TAKING GABAPENTIN 300 MG CAPSULE 1 CAPSULE ORALLY THREE TIMES A DAY NOT-TAKING CARAFATE 1 GM/10ML SUSPENSION 10 ML ORALLY TWICE A DAY NOT-TAKING PRILOSEC 20 MG CAPSULE DELAYED RELEASE 2 CAPSULES ORALLY ONCE A DAY MEDICATION LIST REVIEWED AND RECONCILED WITH THE PATIENT PAST MEDICAL HISTORY COPD SPIROMETRY 02/14/15 DIABETES MELLITUS TYPE 2 SINCE 1980 CHRONIC HEPATITIS C GENOTYPE 1A LIVER CIRRHOSIS F4, HEPATITIS A- HEPATITIS B NEGATIVE DIAGNOSED AGE 16 TREATED WITH HARVONI FOR 12 WEEKS -11/2014 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 ETOH ABUSE ECHO 2013: EF 65-70%, MILD LVH WITH PRESERVED LV SYSTOLIC FUNCTION AND GRADE 1 DIASTOLIC DYSFUNCTION, NO SIGNS OF PULMONARY HYPERTENSION ECHO OCTOBER 2014: EF 60% GRADE 1 DIASTOLIC DYSFUNCTION, BORDERLINE LVH ALLERGIES VERSED: PSYCHOTIC REACTION: ALLERGY PLASTIC OR VINYL TAPE: TEARS SKIN: ALLERGY SOCIAL HISTORY GENERAL: TOBACCO USE ARE YOU A:FORMER SMOKER HOW LONG HAS IT BEEN SINCE YOU LAST SMOKED?> 10 YEARS LUNG CANCER SCREENING SMOKING STATUS:FORMER SMOKER BMI CARE GOAL FOLLOW-UP ABOVE NORMAL BMI FOLLOW-UPDIETARY MANAGEMENT EDUCATION, GUIDANCE, AND COUNSELING ALCOHOL SCREENING DID YOU HAVE A DRINK CONTAINING ALCOHOL IN THE PAST YEAR?YES HOW OFTEN DID YOU HAVE A DRINK CONTAINING ALCOHOL IN THE PAST YEAR?TWO TO THREE TIMES PER WEEK (3 POINTS) HOW MANY DRINKS DID YOU HAVE ON A TYPICAL DAY WHEN YOU WERE DRINKING IN THE PAST YEAR?5 OR 6 (2 POINTS) POINTS5 INTERPRETATIONPOSITIVE RECREATIONAL DRUG USE DENIES. CAFFEINE 6 GLASSES OF TEA / DAY. OCCUPATION: DISABLED.. DIET: CONSISTENT CARBOHYDRATES. EXERCISE: NONE. MARITAL STATUS: . PETS: INSIDE MANA PATRICK. 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 LEARNING BARRIERS / SPECIAL NEEDS BARRIERS TO LEARNING?NO HEARING IMPAIRED?NO VISION IMPAIRED?YES :CORRECTIVE LENSES COGNITIVELY IMPAIRED?NO READINESS TO LEARN?YES LEARNING PREFERENCES?YES :DEMONSTRATION/VERBAL INSTRUCTION LEARNING CAPABILITIES PRESENT?YES EMOTIONAL BARRIERS?NO PAIN CLINIC PFS, CLERGY, PUBLIC HEALTH REFERRALS HAS THE PATIENT BEEN EDUCATED REGARDING HIS/HER PLAN OF CARE?YES HAS THE PATIENT BEEN EDUCATED REGARDING PAIN, THE RISK FOR PAIN, THE IMPORTANCE OF EFFECTIVE PAIN MANAGEMENT, AND THE PAIN ASSESSMENT PROCESS?YES ADVANCE DIRECTIVES HEALTH CARE PROXY?NO DO YOU HAVE A DNR?NO LIVING WILL?NO POWER OF SHADOWGRAPH OPERATOR?NO TRAVEL OUTSIDE US: [place]: 01/27. REVIEW OF SYSTEMS REVIEWED BY: PROVIDER: ANGUS AYALA MD . CONSTITUTIONAL: ANY CHANGE IN YOUR MEDICAL CONDITION? NO . CHILLS NO . FEVER NO . INFECTION: DO YOU HAVE NEW INFECTIONS? NO . DO YOU HAVE HISTORY OF MRSA? NO . MUSCULOSKELETAL: ANY NEW PATTERNS OF PAIN OR NUMBNESS? NO . GASTROENTEROLOGY: ANY NEW CHANGE IN BOWEL CONTROL? NO . GENITOURINARY: ANY NEW CHANGE IN BLADDER CONTROL? NO . IS THERE A CHANCE YOU COULD BE ? NO . HEMATOLOGY/LYMPH: DO YOU TAKE ANY BLOOD THINNERS? (FOR EXAMPLE- COUMADIN, PLAVIX, AGGRENOX, PLATEL, PRADAXA, OR XARELTO) NO . WHEN WAS YOUR LAST DOSE? DATE: TIME: . NEUROLOGY: HAVE YOU FALLEN IN THE PAST 6 MONTHS? YES PT REPORTS HE HAS ORTHOSTATIC HYPOTENSION, GETS DIZZY UPON RISING, AND FELL ONCE INTO A WALL, AND FELL ONCE INTO THE BATHTUB. SEEN IN ED AFTER ONE FALL, A CT SCAN SHOWED A HEALED FRACTURE AND A HEALING FRACTURE OF THE TRANSVERSE PROCESS. . ANY NEW EXTREMITY NUMBNESS OR WEAKNESS? NO . CARDIOLOGY: DO YOU HAVE A PACEMAKER OR DEFIBRILLATOR? NO . RESPIRATORY: HAVE YOU BEEN SICK IN THE PAST WEEK? NO . FEVER NO . FLU LIKE SYMPTOMS? NO . COUGH NO . INTEGUMENTARY: DO YOU HAVE ANY RASHES OR OPEN SORES? NO . ALLERGIC/IMMUNO: ARE YOU ALLERGIC TO SHELLFISH OR IV DYE? NO . ANY NEW ALLERGIES? NO . PSYCHIATRIC: DO YOU HAVE THOUGHTS OF HURTING YOURSELF OR SOMEONE ELSE? NO . ARE YOU ABUSED, NEGLECTED, OR IN AN UNSAFE ENVIRONMENT? NO . ENDOCRINOLOGY: ARE YOU DIABETIC? YES . OTHER: DO YOU NEED ANY PRESCRIPTIONS? NO . IF YES, PLEASE LIST: ____ . ANY NEW PROBLEMS WITH YOUR MEDICATIONS? NO . WHEN DID YOU LAST EAT? ____ . WHEN DID YOU LAST DRINK? ____ . WHAT DID YOU LAST DRINK? ____ . NAME OF PERSON DRIVING YOU HOME? ____ . DO YOU HAVE ANY OTHER QUESTIONS OR CONCERNS NO . VITAL SIGNS WT 186 LBS, HT 69 IN, BMI 27.46 INDEX, BP 126/91 MM HG, HR 91 /MIN, RR 18 /MIN, TEMP 98.7 F, OXYGEN SAT % 97%, SAFE IN ENV? (Y/N) YES, REVIEWED BY: ROBERT. EXAMINATION : PATIENT IS ALERT O X 3 AND COOPERATIVE. TENDERNESS IN THE LOWER BACK AND PARASPINAL MUSCLE GROUP. XRAY OF THE LUMBAR SPINE DONE ON 12/26/14 SHOWS DEGENERATIVE DISC CHANGES. ASSESSMENTS SACROILIITIS, NOT ELSEWHERE CLASSIFIED - M46.1 (PRIMARY) BILATERAL LOW BACK PAIN, WITH SCIATICA PRESENCE UNSPECIFIED - M54.5 SPONDYLOSIS OF LUMBAR REGION WITHOUT MYELOPATHY OR RADICULOPATHY - M47.816 SPONDYLOSIS OF LUMBOSACRAL REGION WITHOUT MYELOPATHY OR RADICULOPATHY - M47.817 TREATMENT SACROILIITIS, NOT ELSEWHERE CLASSIFIED NOTES: WE DISCUSSED SEVERAL ISSUES WITH MR. ROMEO'S PAIN MANAGEMENT CASE. AT THIS TIME THE PATIENT WILL CONTINUE TO USE GABAPENTIN FOR THE NEUROPATHIC PAIN AND TIZANIDINE FOR THE MUSCLE SPASMS. I WOULD LIKE THE PATIENT TO START USING IBUPROFEN FOR THE INFLAMMATION. PATIENT WAS ADVISED TO USE THE MEDICATION WITH FOOD AND TO STOP THE MEDICATION IF HE HAS ANY ADVERSE SIDE EFFECTS. DUE TO THE PAIN IN THE SACROILIAC JOINT AREA I WOULD LIKE TO PROCEED WITH A SACROILIAC JOINT INJECTION. WE DISCUSSED THE RISKS, BENENFITS, AND ALTERNATIVES OF THE INJECTION AND THE PATIENT WOULD LIKE TO PROCEED AT THIS TIME. I WOULD ALSO LIKE TO DISCUSS THE CASE WITH THE PATIENTS PSYCHOLOGIST DUE TO THE USE OF ALCOHOL WHEN IN PAIN. INSTRUCTIONS WERE GIVEN, QUESTIONS WERE ANSWERED, PATIENT REPORTS UNDERSTANDING AND AGREES WITH THE PLAN. I WOULD ALSO LIKE THE PATIENT TO START USING A TENNS UNIT TO SEE IF IT WILL AID IN RELIEF FOR HIS LOWER BACK PAIN. IRENITA, DOCUMENTED THE ABOVE INFORMATION ACTING A SCRIBE FOR DR. AYALA. I HAVE REVIEWED THE ABOVE DOCUMENT, WRITTEN BY RENITA NAIR AND I VERIFY THAT IT IS ACCURATE. BILATERAL LOW BACK PAIN, WITH SCIATICA PRESENCE UNSPECIFIED REFILL GABAPENTIN CAPSULE, 300 MG, 1 CAPSULE, ORALLY, THREE TIMES A DAY, 30 DAY(S), 90, REFILLS 2 CONTINUE TIZANIDINE HCL TABLET, 4 MG, 1 TABLET NEEDED, ORALLY FOR SPASMS AND PAIN, TWICE DAILY NEEDED MDD2, 30 DAY(S), 60, REFILLS 1 OTHERS START IBUPROFEN TABLET, 800 MG, 1 TABLET WITH FOOD OR MILK, ORALLY, EVERY 6 HOURS NEEDED FOR PAIN MDD3, 30 DAY(S), 60, REFILLS 0 PREVENTIVE MEDICINE PAIN CLINIC TEACHING: PROCEDURE TEACHING PT GIVEN INFORMATION ON SIJ INJECTION, PT VERBALIZED UNDERSTANDING. PROCEDURE CODES FA211 ESTABILISHED PATIENT [facility] CHARGE G8427 DOC MEDS VERIFIED W/PT OR RE G8730 PAIN ASSESS POS TOOL F/U PLAN DOC DISPOSITION & COMMUNICATION FOLLOW UP 3 WEEKS ELECTRONICALLY SIGNED BY ANGUS AYALA MD ON 03/23/2017 AT 04:32 PM EDT DISCLAIMER : THIS IS A VISIT SUMMARY EXTRACTED FROM THE [employer] CHART. IT IS NOT A COPY OF THE [employer] PROGRESS NOTE. ALPA
== END ==
LOC: M PAIN 14:50
PROVIDERS: ATTEND Anesthesiology
DX: G89.29 Other chronic pain (principal); M46.1 Sacroiliitis, not elsewhere classified; M54.5 Low back pain; M47.816 Spondylosis without myelopathy or radiculopathy, lumbar region; M47.817 Spondylosis without myelopathy or radiculopathy, lumbosacral region; J44.9 Chronic obstructive pulmonary disease, unspecified; E11.9 Type 2 diabetes mellitus without complications; F32.9 Major depressive disorder, single episode, unspecified; F10.10 Alcohol abuse, uncomplicated; K74.69 Other cirrhosis of liver; K21.9 Gastro-esophageal reflux disease without esophagitis; E55.9 Vitamin D deficiency, unspecified; I95.1 Orthostatic hypotension; Z88.8 Allergy status to other drugs, medicaments and biological substances; L23.1 Allergic contact dermatitis due to adhesives; Z79.82 Long term (current) use of aspirin; Z79.4 Long term (current) use of insulin; Z79.899 Other long term (current) drug therapy; Z87.891 Personal history of nicotine dependence

== ENCOUNTER → 2017-03-17 | Outpatient (CLI) | payer MEDICAID ==
--- NOTE | 2017-03-17 09:57 | REP ---
Gastric emptying nuclear scintigraphy: History: Gastroesophageal reflux disease Technique: 1.02 mCi of technetium-99m sulfur colloid was ingested in two scrambled eggs and 6 ounces of water and sequential anterior and posterior images are acquired for an 89-minute imaging observation period. Regions of interest are drawn around the stomach to plot gastric emptying. Scintigraphic findings: Expected T1/2 is 90 minutes. 14 % emptying is observed in this patient during the 89-minute imaging observation period, for a calculated T1/2 in this patient of 335 minutes. Impression: Markedly delayed gastric emptying. Signed by Vaughn Plata MD 03/17/2017 09:48 A
[2017-03-17 10:34] LABS: INR 0.96
[2017-03-17 13:23] LABS: PRETREATED FOLATE FOR RBCFOL 12.3 NG/ML
== END ==
LOC: M RAD 07:33 → M LAB 07:33
PROVIDERS: ATTEND Obstetrics & Gynecology
DX: Z86.19 Personal history of other infectious and parasitic diseases (principal); K21.9 Gastro-esophageal reflux disease without esophagitis
CPT/HCPCS: 36415; 78264; 82105; 82140; 82747; 83036; 85610; 85730; A9541

== ENCOUNTER 2017-03-26 20:11 | Emergency (ER) | payer MEDICAID ==
[~2017-03-26] VITALS: Ht 180.3 cm; Wt 85.5 kg
[2017-03-26] MEDS ORDERED: NS 1,000 ML IV ONE ×3 (20:45→22:00)
[2017-03-26 20:48] LABS: BASO # 0.1 10^3/uL (0.0-0.2); BASO % 0.7 % (0.0-1.0); EOS # 0.1 10^3/uL (0.0-0.50); EOS % 1.6 % (0.0-3.0); IMMATURE GRANULOCYTE % 0.4 % (0-0); LYMPH # 2.1 10^3/uL (1.5-4.5); LYMPH % 25.5 % (24.0-44.0); MEAN CORPUSCULAR HEMOGLOBIN 31.7 pg (27.0-33.0); MEAN CORPUSCULAR HGB CONC 34.8 g/dl (32.0-36.5); MONO # 0.5 10^3/uL (0.0-0.8); MONO % 6.4 % (0.0-5.0); NEUTROPHILS # 5.3 10^3/uL (1.8-7.7); NEUTROPHILS % 65.4 % (36.0-66.0); PLATELET COUNT, AUTOMATED 149 10^3/uL (150-450); RED CELL DISTRIBUTION WIDTH 11.8 % (11.5-14.5); WHITE BLOOD COUNT 8.1 10^3/uL (4.0-10.0)
[2017-03-26 21:21] LABS: ALBUMIN/GLOBULIN RATIO 1.14 (1.00-1.93); ALKALINE PHOSPHATASE 90 U/L (45-117); AMYLASE 132 U/L (25-115); ANION GAP 8 MEQ/L (8-16); AST/SGOT 36 U/L (15-37); BILIRUBIN,DIRECT 0.2 MG/DL (0.0-0.2); BILIRUBIN,TOTAL 0.4 MG/DL (0.2-1.0); BLOOD UREA NITROGEN 19 MG/DL (7-18); CALCIUM LEVEL 9.3 MG/DL (8.5-10.1); CARBON DIOXIDE LEVEL 28 MEQ/L (21-32); CHLORIDE LEVEL 100 MEQ/L (98-107); CREATININE FOR GFR 1.39 MG/DL (0.70-1.30); GLOMERULAR FILTRATION RATE 55.9 (>56); GLUCOSE, FASTING 187 MG/DL (70-105); POTASSIUM SERUM 3.8 MEQ/L (3.5-5.1); SODIUM LEVEL 136 MEQ/L (136-145); TOTAL PROTEIN 7.5 GM/DL (6.4-8.2)
[2017-03-26 21:27] LABS: ALT/SGPT 54 U/L (12-78)
[2017-03-26] MEDS ORDERED: ISOVUE-370 76% 100ML VIAL (Q9967) As Ordered ONE (22:40)
--- NOTE | 2017-03-26 23:20 | REPUSA ---
CT of the abdomen and pelvis with contrast Clinical statement: Pain. Technique: Multiple axial CT images were obtained from the base of the lungs through the floor of the pelvis utilizing 5 mm axial slices after administration of nonionic intravenous contrast. Coronal an d sagittal reconstructions were also obtained. Comparison: 12/17/2016. Findings: Chest: The visualized lung bases are clear. Abdomen: The spleen, pancreas, kidneys, gallbladder, and adrenal glands are unremarkable. The simple 1 cm left renal cyst is stable. There is ill-defined enhancing lesion in the left lobe of the liver m easuring 1.1 x 1.3 cm. There is larger ill-defined area of arterial enhancement in the right lobe, me asuring approximately 6.1 x 3.9 cm. Mild nodularity to the liver contour is noted. The aorta is withi n normal limits. The hepatic and portal veins are patent. There is no evidence of biliary ductal dila tation. There is no evidence of abdominal lymphadenopathy or ascites. Pelvis: There is minimal bowel wall thickening involving the descending colon. No evidence of bowel o bstruction is seen. There is no pericolonic inflammation. The urinary bladder is within normal limits . The other pelvic structures appear grossly intact. There is no evidence of pelvic lymphadenopathy o r ascites. Bones: There are no suspicious osseous abnormalities seen. Impression: 1. Minimal bowel wall thickening involving the descending colon. No focal evidence of obstruction or pericolonic inflammation noted. The finding is nonspecific, but could represent infectious or inflamm atory colitis. This is new since the prior study. 2. Mild nodularity of the liver contour stable, suggesting mild cirrhosis. 3. Hyperdense lesions are seen in the right and left lobes as described. This was not seen on the geramn or study. These could represent atypical hemangiomas. MRI of the liver would be helpful for further e valuation.
[2017-03-27 00:17] VITALS: BP 156/96
--- NOTE | 2017-03-27 07:06 | ED PDOC ---
Post-Departure Follow-Up radiology report faxed to Chanell Carlson Sarah MD Mar 27, 2017 07:06
--- NOTE | 2017-03-27 07:45 | ECGEPIP ---
Stationary ECG Study [facility] - ED Test Date: 2017-03-26 Pat Name: JUANA ROMEO Department: Room: - Gender: M Leader Assembler: : 1960 Requested By: DANI MCGARRY Order Number: [id number] Reading MD: Ina Shirley Measurements Intervals [place] Rate: 84 P: 14 KS: 164 QRS: -14 QRSD: 82 T: 44 QT: 385 QTc: 456 Interpretive Statements SINUS RHYTHM ?PRIOR INFERIOR INFARCT NSTTW ABNORMALITY PROLONGED QTC Electronically Signed On 03-27-2017 7:45:17 EDT by Ina Shirley
== END 2017-03-27 00:25 | disposition home or self-care (01) ==
LOC: M ED 20:11
DX: E86.0 Dehydration (principal); E11.9 Type 2 diabetes mellitus without complications; I10 Essential (primary) hypertension; E78.5 Hyperlipidemia, unspecified; K21.9 Gastro-esophageal reflux disease without esophagitis; G89.29 Other chronic pain; M54.9 Dorsalgia, unspecified; F33.9 Major depressive disorder, recurrent, unspecified; F10.10 Alcohol abuse, uncomplicated; N40.0 Benign prostatic hyperplasia without lower urinary tract symptoms; K73.9 Chronic hepatitis, unspecified; Z79.899 Other long term (current) drug therapy; Z79.82 Long term (current) use of aspirin; Z79.4 Long term (current) use of insulin; Z88.8 Allergy status to other drugs, medicaments and biological substances; L23.1 Allergic contact dermatitis due to adhesives
CPT/HCPCS: 74177; 80048; 80076; 82150; 82550; 82553; 83690; 85025; 93005; 96360; 96361; 99285; G0480; Q9967

== ENCOUNTER → 2017-03-26 | Outpatient (CLI) | payer MEDICAID ==
--- NOTE | 2017-04-05 23:52 | ECWPNPC ---
PATIENT NAME: JUANA ROMEO : 1960 GENDER: MALE VISIT DATE: 03/26/2017 DISCHARGE DATE: 03/26/17 1309 VISIT LOCKED DATE TIME: PHYSICIAN: AGNUS AYALA RESOURCE: ANGUS AYALA REASON FOR APPOINTMENT 1. LOW BACK PAIN HISTORY OF PRESENT ILLNESS HISTORY OF PRESENT ILLNESS: PAIN THE PATIENT DESCRIBES THE PAIN... 56 YEAR OLD MALE PATIENT WITH HISTORY OF CHRONIC LOW BACK PAIN. PATIENT DESCRIBES THE PAIN ACHING, TENDER, SORE, SHOOTING AND HAVING IT ALL THE TIME WITH A PAIN SCORE OF 8/10. PATIENT REPORTS FEELING SICK AND LIGHTHEADED THE PAST FEW DAYS. PATIENT IS STILL USING THE TIZANIDINE, GABAPENTIN, AND IBUPROFEN AND STATES THAT WHILE IT DOES AID IN PAIN RELIEF THE PATIENT STILL HAVE SEVERE PAIN. PATIENT DENIES UNEXPLAINABLE WEIGHT LOSS, FEVER, CHILLS, NEW CHANGES ON HIS URINARY OR BOWEL CONTROL. FALL RISK SCREENING: SCREENING :NO FALLS IN THE PAST YEAR CURRENT MEDICATIONS TAKING TRAZODONE HCL 150 MG TABLET 1 TABLET AT BEDTIME NEEDED ORALLY ONCE A DAY TAKING IBUPROFEN 800 MG TABLET 1 TABLET WITH FOOD OR MILK ORALLY EVERY 6 HOURS NEEDED FOR PAIN MDD3 TAKING GABAPENTIN 300 MG CAPSULE 1 CAPSULE ORALLY THREE TIMES A DAY TAKING TIZANIDINE HCL 4 MG TABLET 1 TABLET NEEDED ORALLY FOR SPASMS AND PAIN TWICE DAILY NEEDED MDD2 TAKING ASPIR-81 81 MG TABLET DELAYED RELEASE 1 TABLET ORALLY ONCE A DAY TAKING ALBUTEROL SULFATE HFA 108 (90 BASE) MCG/ACT AEROSOL SOLUTION 2 PUFFS INHALATION EVERY 4 HOURS NEEDED TAKING ADVAIR DISKUS 500-50 MCG/DOSE POWDER 1 PUFF INHALATION TWICE A DAY TAKING GLUCOMETER ONE TOUCH - GLUCOMETER ICD:250.02 IDDM FSBS FOUR TIMES DAILY TAKING ADJUSTABLE ALUMINUM CANE __ MISCELLANEOUS ICD: 355.9 ___ TAKING SYRINGE (DISPOSABLE) 100 UNITS MISCELLANEOUS 1 NEEDLE/SYRINGE INTRADERMALLY 4 TIMES A DAY TAKING GLUCOSE BLOOD ONE TOUCH STRIP TEST STRIPS ICD: E11.9 IDDM FSBS FOUR TIMES DAILY TAKING CARAFATE 1 GM/10ML SUSPENSION 10 ML ORALLY TWICE A DAY TAKING FLOMAX 0.4 MG CAPSULE 1 CAPSULE 30 MINUTES AFTER THE SAME MEAL EACH DAY ORALLY ONCE A DAY TAKING PRILOSEC 20 MG CAPSULE DELAYED RELEASE 2 CAPSULE ORALLY ONCE A DAY NEEDED TAKING CITALOPRAM HYDROBROMIDE 20 MG TABLET 1 TABLET ORALLY ONCE A DAY TAKING LANTUS 100 UNIT/ML SOLUTION 50 UNITS SUBCUTANEOUS TWICE DAILY TAKING HUMALOG 100 UNIT/ML SOLUTION PER SLIDING SCALE SUBCUTANEOUS BEFORE MEALS MDD: 100 UNITS TAKING ONDANSETRON 4 MG TABLET DISINTEGRATING 1 TABLET ON THE TONGUE AND ALLOW TO DISSOLVE ORALLY EVERY 4 HRS TAKING LISINOPRIL 10 MG TABLET 1 TABLET ORALLY ONCE A DAY TAKING ATORVASTATIN CALCIUM 10 MG TABLET 1 TABLET ORALLY ONCE A DAY TAKING VITAMIN D 1000 UNIT TABLET 1 TABLET ORALLY ONCE A DAY NOT-TAKING CARAFATE 1 GM/10ML SUSPENSION 10 ML ORALLY TWICE A DAY NOT-TAKING PRILOSEC 20 MG CAPSULE DELAYED RELEASE 2 CAPSULES ORALLY ONCE A DAY MEDICATION LIST REVIEWED AND RECONCILED WITH THE PATIENT PAST MEDICAL HISTORY COPD SPIROMETRY 02/14/15 DIABETES MELLITUS TYPE 2 SINCE 1980 CHRONIC HEPATITIS C GENOTYPE 1A LIVER CIRRHOSIS F4, HEPATITIS A- HEPATITIS B NEGATIVE DIAGNOSED AGE 16 TREATED WITH HARVONI FOR 12 WEEKS 3-11/2014 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 ETOH ABUSE ECHO 2013: EF 65-70%, MILD LVH WITH PRESERVED LV SYSTOLIC FUNCTION AND GRADE 1 DIASTOLIC DYSFUNCTION, NO SIGNS OF PULMONARY HYPERTENSION ECHO OCTOBER 2014: EF 60% GRADE 1 DIASTOLIC DYSFUNCTION, BORDERLINE LVH ALLERGIES VERSED: PSYCHOTIC REACTION: ALLERGY PLASTIC OR VINYL TAPE: TEARS SKIN: ALLERGY SURGICAL HISTORY LIVER BIOPSY 2007 TONSILLECTOMY LEFT HAND SURGERY 08/16-08/17 COLONOSCOPY/ENDOSCOPY BY DR AGUILA 10/2013 DUPUYTREN'S CONTRACTURE RELEASE, LEFT HAND 01/26 COLONOSCOPY: NONTHROMBOSED EXTERNAL HEMORRHOIDS IN PERIANAL, INTERNAL HEMORRHOIDS 01/22/2016 EGD: NORMAL ESOPHAGUS, STOMACH, DUODENUM JANUARY 2016 FAMILY HISTORY FATHER: 78 YRS, HEART FAILURE, CVA, , PR, DIAGNOSED WITH STROKE MOTHER: 63 YRS, HEART FAILURE, PR, HTN, THROAT CANCER, DIAGNOSED WITH HYPERTENSION, HEART DISEASE SIBLINGS: ALIVE 60 YRS, [employer]ARDPLE BYPASS 1 BROTHER(S) . 3 SON(S) , 1 DAUGHTER(S) - HEALTHY. SOCIAL HISTORY GENERAL: TOBACCO USE ARE YOU A:FORMER SMOKER HOW LONG HAS IT BEEN SINCE YOU LAST SMOKED?> 10 YEARS LUNG CANCER SCREENING SMOKING STATUS:FORMER SMOKER BMI CARE GOAL FOLLOW-UP ABOVE NORMAL BMI FOLLOW-UPDIETARY MANAGEMENT EDUCATION, GUIDANCE, AND COUNSELING ALCOHOL SCREENING DID YOU HAVE A DRINK CONTAINING ALCOHOL IN THE PAST YEAR?YES HOW OFTEN DID YOU HAVE A DRINK CONTAINING ALCOHOL IN THE PAST YEAR?TWO TO THREE TIMES PER WEEK (3 POINTS) HOW MANY DRINKS DID YOU HAVE ON A TYPICAL DAY WHEN YOU WERE DRINKING IN THE PAST YEAR?5 OR 6 (2 POINTS) POINTS5 INTERPRETATIONPOSITIVE RECREATIONAL DRUG USE DENIES. CAFFEINE 6 GLASSES OF TEA / DAY. OCCUPATION: DISABLED.. DIET: CONSISTENT CARBOHYDRATES. EXERCISE: NONE. MARITAL STATUS: . PETS: INSIDE MANA [employer]. [id number]. 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 LEARNING BARRIERS / SPECIAL NEEDS BARRIERS TO LEARNING?NO HEARING IMPAIRED?NO VISION IMPAIRED?YES :CORRECTIVE LENSES COGNITIVELY IMPAIRED?NO READINESS TO LEARN?YES LEARNING PREFERENCES?YES :DEMONSTRATION/VERBAL INSTRUCTION LEARNING CAPABILITIES PRESENT?YES EMOTIONAL BARRIERS?NO PAIN CLINIC PFS, CLERGY, PUBLIC HEALTH REFERRALS HAS THE PATIENT BEEN EDUCATED REGARDING HIS/HER PLAN OF CARE?YES HAS THE PATIENT BEEN EDUCATED REGARDING PAIN, THE RISK FOR PAIN, THE IMPORTANCE OF EFFECTIVE PAIN MANAGEMENT, AND THE PAIN ASSESSMENT PROCESS?YES ADVANCE DIRECTIVES HEALTH CARE PROXY?NO DO YOU HAVE A DNR?NO LIVING WILL?NO POWER OF AVIONICS SYSTEMS REPAIRER?NO TRAVEL OUTSIDE US: [place]: 01/27. HOSPITALIZATION/MAJOR DIAGNOSTIC PROCEDURE ACUTE SMALL/MEDIUM R POSTERIOR TEMPORAL AND PARIETAL STROKE 11/08/2014 DUE TO STROKE- 4 DAYS 11/2014 MRSA 2011, , 14 [facility]: SUICIDAL THOUGHTS 01/2015 ANXIETY AND DEPRESSION 06/11/2015 [facility] 02/15/16-02/22/16 REVIEW OF SYSTEMS REVIEWED BY: PROVIDER: ANGUS AYALA MD . CONSTITUTIONAL: ANY CHANGE IN YOUR MEDICAL CONDITION? NO . CHILLS NO . FEVER NO . INFECTION: DO YOU HAVE NEW INFECTIONS? NO . DO YOU HAVE HISTORY OF MRSA? NO . MUSCULOSKELETAL: ANY NEW PATTERNS OF PAIN OR NUMBNESS? NO . GASTROENTEROLOGY: ANY NEW CHANGE IN BOWEL CONTROL? NO . GENITOURINARY: ANY NEW CHANGE IN BLADDER CONTROL? NO . IS THERE A CHANCE YOU COULD BE ? NO . HEMATOLOGY/LYMPH: DO YOU TAKE ANY BLOOD THINNERS? (FOR EXAMPLE- COUMADIN, PLAVIX, AGGRENOX, PLATEL, PRADAXA, OR XARELTO) NO . WHEN WAS YOUR LAST DOSE? DATE: TIME: . NEUROLOGY: HAVE YOU FALLEN IN THE PAST 6 MONTHS? YES . ANY NEW EXTREMITY NUMBNESS OR WEAKNESS? NO . CARDIOLOGY: DO YOU HAVE A PACEMAKER OR DEFIBRILLATOR? NO . RESPIRATORY: HAVE YOU BEEN SICK IN THE PAST WEEK? NO . FEVER NO . FLU LIKE SYMPTOMS? NO . COUGH NO . INTEGUMENTARY: DO YOU HAVE ANY RASHES OR OPEN SORES? NO . ALLERGIC/IMMUNO: ARE YOU ALLERGIC TO SHELLFISH OR IV DYE? NO . ANY NEW ALLERGIES? NO . PSYCHIATRIC: DO YOU HAVE THOUGHTS OF HURTING YOURSELF OR SOMEONE ELSE? NO . ARE YOU ABUSED, NEGLECTED, OR IN AN UNSAFE ENVIRONMENT? NO . ENDOCRINOLOGY: ARE YOU DIABETIC? YES . OTHER: DO YOU NEED ANY PRESCRIPTIONS? NO . IF YES, PLEASE LIST: ____ . ANY NEW PROBLEMS WITH YOUR MEDICATIONS? NO . WHEN DID YOU LAST EAT? ____ . WHEN DID YOU LAST DRINK? ____ . WHAT DID YOU LAST DRINK? ____ . NAME OF PERSON DRIVING YOU HOME? ____ . DO YOU HAVE ANY OTHER QUESTIONS OR CONCERNS NO . VITAL SIGNS WT B, HT 69 IN, BMI 26.58 INDEX, BP 81/58 MM HG, HR 89 /MIN, RR 18 /MIN, TEMP 96.9 F, OXYGEN SAT % 95%, NA INITIALS AW 1039LET NURSE KNOW ABOUT BP. 03/26/17 1045 BP RECHECKED 82/60 MANUALLY, 79/52 WITH NIBP. CM ON RSR AT 69/MIN. REPORTS DIZZINESS. STATES TOOK LISINOPRIL [address] PO AT [address]00. DR. AYALA NOTIFIED AND IN TO SEE PT. Matt ANTONY RN 03/26/17 1057 BP RECHECKED 92/65. HR 69. REPORTS HEADACHE. STATES THINKS IS A MIGRAINE. Matt ANTONY RN. EXAMINATION : PATIENT IS ALERT O X 3 AND COOPERATIVE. TENDERNESS IN THE LOWER BACK AND PARASPINAL MUSCLE GROUP. XRAY OF THE LUMBAR SPINE DONE ON 12/26/14 SHOWS DEGENERATIVE DISC CHANGES. TENDERNESS IN THE SACROILIAC JOINT AREA. ASSESSMENTS SACROILIITIS, NOT ELSEWHERE CLASSIFIED - M46.1 (PRIMARY) LOW BACK PAIN - M54.5 OTHER CHRONIC PAIN - G89.29 SPONDYLOSIS OF LUMBAR REGION WITHOUT MYELOPATHY OR RADICULOPATHY - M47.816 SPONDYLOSIS OF LUMBOSACRAL REGION WITHOUT MYELOPATHY OR RADICULOPATHY - M47.817 TREATMENT SACROILIITIS, NOT ELSEWHERE CLASSIFIED NOTES: WE DISCUSSED SEVERAL ISSUES WITH MR. ROMEO'S PAIN MANAGEMENT CASE. AT THIS TIME THE PATIENT WILL CONTINUE TO USE GABAPENTIN FOR THE NEUROPATHIC PAIN, IBUPROFEN FOR THE INFLAMMATION AND TIZANIDINE FOR THE MUSCLE SPASMS. PATIENT WAS ADVISED TO USE THE MEDICATION WITH FOOD AND TO STOP THE MEDICATION IF HE HAS ANY ADVERSE SIDE EFFECTS. DUE TO THE PAIN IN THE SACROILIAC JOINT AREA I WOULD LIKE TO PROCEED WITH A SACROILIAC JOINT INJECTION. WE DISCUSSED THE RISKS, BENENFITS, AND ALTERNATIVES OF THE INJECTION AND THE PATIENT WOULD LIKE TO PROCEED AT THIS TIME. PATIENT WAS ADVISED TO CANCEL HIS PROCEDURE IF HE IS FEELING LIGHTHEADED OR SICK. I WOULD ALSO LIKE TO DISCUSS THE CASE WITH THE PATIENTS PSYCHOLOGIST DUE TO THE USE OF ALCOHOL WHEN IN PAIN. INSTRUCTIONS WERE GIVEN, QUESTIONS WERE ANSWERED, PATIENT REPORTS UNDERSTANDING AND AGREES WITH THE PLAN. I WOULD ALSO LIKE THE PATIENT TO START USING A TENNS UNIT TO SEE IF IT WILL AID IN RELIEF FOR HIS LOWER BACK PAIN. DUE TO THE PATIENT STATES HE HAS SEVERE PAIN IN THE NECK WELL I WOULD LIEK TO ORDER A CERVICAL X-RAY TO BETTER ASSESS THE PATIENT. I, RENITA BRAUN, DOCUMENTED THE ABOVE INFORMATION ACTING A SCRIBE FOR DR. AYALA. I HAVE REVIEWED THE ABOVE DOCUMENT, WRITTEN BY RENITA NAIR AND I VERIFY THAT IT IS ACCURATE. PROCEDURE CODES FA211 ESTABILISHED PATIENT [facility] FACILITY CHARGE G8427 DOC MEDS VERIFIED W/PT OR RE G8730 PAIN ASSESS POS TOOL F/U PLAN DOC DISPOSITION & COMMUNICATION FOLLOW UP SIJ TWO WEEKS ELECTRONICALLY SIGNED BY ANGUS AYALA MD ON 04/05/2017 AT 12:49 PM EDT DISCLAIMER : THIS IS A VISIT SUMMARY EXTRACTED FROM THE [employer] CHART. IT IS NOT A COPY OF THE [employer] PROGRESS NOTE. ALPA
== END ==
LOC: M PAIN 10:45
PROVIDERS: ATTEND Anesthesiology
DX: G89.29 Other chronic pain (principal); M46.1 Sacroiliitis, not elsewhere classified; M54.5 Low back pain; M47.816 Spondylosis without myelopathy or radiculopathy, lumbar region; M47.817 Spondylosis without myelopathy or radiculopathy, lumbosacral region; E11.9 Type 2 diabetes mellitus without complications; F32.9 Major depressive disorder, single episode, unspecified; M15.0 Primary generalized (osteo)arthritis; J44.9 Chronic obstructive pulmonary disease, unspecified; I10 Essential (primary) hypertension; K74.69 Other cirrhosis of liver; K21.9 Gastro-esophageal reflux disease without esophagitis; E55.9 Vitamin D deficiency, unspecified; Z88.8 Allergy status to other drugs, medicaments and biological substances; L23.1 Allergic contact dermatitis due to adhesives; Z79.82 Long term (current) use of aspirin; Z79.4 Long term (current) use of insulin; Z79.899 Other long term (current) drug therapy; Z87.891 Personal history of nicotine dependence

== ENCOUNTER → 2017-04-03 | Outpatient (CLI) | payer MEDICAID | LOC: M RAD 16:41 | PROVIDERS: ATTEND Anesthesiology | DX: M54.5 Low back pain (principal) ==

== ENCOUNTER → 2017-04-03 | Outpatient (CLI) | payer MEDICAID ==
--- NOTE | 2017-04-17 02:40 | ECWPNPC ---
PATIENT NAME: JUANA ROMEO : 1960 GENDER: MALE VISIT DATE: 04/03/2017 DISCHARGE DATE: 04/03/171628 VISIT LOCKED DATE TIME: PHYSICIAN: ANGUS AYALA RESOURCE: ANGUS AYALA REASON FOR APPOINTMENT 1. LOW BACK PAIN HISTORY OF PRESENT ILLNESS HISTORY OF PRESENT ILLNESS: PAIN THE PATIENT DESCRIBES THE PAIN... 56 YEAR OLD MALE PATIENT WITH HISTORY OF CHRONIC LOW BACK PAIN. PATIENT DESCRIBES THE PAIN ACHING, TENDER, SORE, SHOOTING, AND HAVING IT ALL THE TIME WITH A PAIN SCORE OF 8/10. PATIENT STATES HIS LOW BACK PAIN STARTED MANY YEARS AGO BUT IT BECAME SEVERE WHEN HE FELL ROUGHLY TWO MONTHS AGO WHILE STANDING UP FROM THE TOILET WHEN HE BECAME VERY DIZZY AND FELL. PATIENT REPORTS BREAKING HIS BACK WHEN HE FELL. CURRENTLY THE PATIENT IS USING TIZANIDINE AND GABAPENTIN TO AID IN PAIN RELIEF. PATIENT WAS USING OXYCONTIN BUT WAS TAKEN OFF OF IT DUE TO SUICIDAL THOUGHTS AND ATTEMPTS. MR. ROMEO REPORTS HAVING TRIGGER POINTS AT DR. GRAHAM'S OFFICE BUT DID NOT RECEIVE ANY PAIN RELIEF FROM THE INJECTION. PATIENT DENIES UNEXPLAINABLE WEIGHT LOSS, FEVER, CHILLS, NEW CHANGES ON HIS URINARY OR BOWEL CONTROL. FALL RISK SCREENING: SCREENING :NO FALLS IN THE PAST YEAR CURRENT MEDICATIONS TAKING TRAZODONE HCL 150 MG TABLET 1 TABLET AT BEDTIME NEEDED ORALLY ONCE A DAY TAKING IBUPROFEN 800 MG TABLET 1 TABLET WITH FOOD OR MILK ORALLY EVERY 6 HOURS NEEDED FOR PAIN MDD3 TAKING GABAPENTIN 300 MG CAPSULE 1 CAPSULE ORALLY THREE TIMES A DAY TAKING TIZANIDINE HCL 4 MG TABLET 1 TABLET NEEDED ORALLY FOR SPASMS AND PAIN TWICE DAILY NEEDED MDD2 TAKING ASPIR-81 81 MG TABLET DELAYED RELEASE 1 TABLET ORALLY ONCE A DAY TAKING ALBUTEROL SULFATE HFA 108 (90 BASE) MCG/ACT AEROSOL SOLUTION 2 PUFFS INHALATION EVERY 4 HOURS NEEDED TAKING ADVAIR DISKUS 500-50 MCG/DOSE POWDER 1 PUFF INHALATION TWICE A DAY TAKING GLUCOMETER ONE TOUCH - GLUCOMETER ICD:250.02 IDDM FSBS FOUR TIMES DAILY TAKING ADJUSTABLE ALUMINUM CANE __ MISCELLANEOUS ICD: 355.9 ___ TAKING SYRINGE (DISPOSABLE) 100 UNITS MISCELLANEOUS 1 NEEDLE/SYRINGE INTRADERMALLY 4 TIMES A DAY TAKING GLUCOSE BLOOD ONE TOUCH STRIP TEST STRIPS ICD: E11.9 IDDM FSBS FOUR TIMES DAILY TAKING CARAFATE 1 GM/10ML SUSPENSION 10 ML ORALLY TWICE A DAY TAKING FLOMAX 0.4 MG CAPSULE 1 CAPSULE 30 MINUTES AFTER THE SAME MEAL EACH DAY ORALLY ONCE A DAY TAKING PRILOSEC 20 MG CAPSULE DELAYED RELEASE 2 CAPSULE ORALLY ONCE A DAY NEEDED TAKING CITALOPRAM HYDROBROMIDE 20 MG TABLET 1 TABLET ORALLY ONCE A DAY TAKING LANTUS 100 UNIT/ML SOLUTION 50 UNITS SUBCUTANEOUS TWICE DAILY TAKING HUMALOG 100 UNIT/ML SOLUTION PER SLIDING SCALE SUBCUTANEOUS BEFORE MEALS MDD: 100 UNITS TAKING ONDANSETRON 4 MG TABLET DISINTEGRATING 1 TABLET ON THE TONGUE AND ALLOW TO DISSOLVE ORALLY EVERY 4 HRS TAKING ATORVASTATIN CALCIUM 10 MG TABLET 1 TABLET ORALLY ONCE A DAY TAKING VITAMIN D 1000 UNIT TABLET 1 TABLET ORALLY ONCE A DAY NOT-TAKING LISINOPRIL 10 MG TABLET 1 TABLET ORALLY ONCE A DAY DISCONTINUED CARAFATE 1 GM/10ML SUSPENSION 10 ML ORALLY TWICE A DAY DISCONTINUED PRILOSEC 20 MG CAPSULE DELAYED RELEASE 2 CAPSULES ORALLY ONCE A DAY MEDICATION LIST REVIEWED AND RECONCILED WITH THE PATIENT PAST MEDICAL HISTORY COPD SPIROMETRY 02/14/15 DIABETES MELLITUS TYPE 2 SINCE 1980 CHRONIC HEPATITIS C GENOTYPE 1A LIVER CIRRHOSIS F4, HEPATITIS A- HEPATITIS B NEGATIVE DIAGNOSED AGE 16 TREATED WITH HARVONI FOR 12 WEEKS 3-11/2014 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 ETOH ABUSE ECHO 2013: EF 65-70%, MILD LVH WITH PRESERVED LV SYSTOLIC FUNCTION AND GRADE 1 DIASTOLIC DYSFUNCTION, NO SIGNS OF PULMONARY HYPERTENSION ECHO OCTOBER 2014: EF 60% GRADE 1 DIASTOLIC DYSFUNCTION, BORDERLINE LVH ALLERGIES VERSED: PSYCHOTIC REACTION: ALLERGY PLASTIC OR VINYL TAPE: TEARS SKIN: ALLERGY SOCIAL HISTORY GENERAL: TOBACCO USE ARE YOU A:FORMER SMOKER HOW LONG HAS IT BEEN SINCE YOU LAST SMOKED?> 10 YEARS LUNG CANCER SCREENING SMOKING STATUS:FORMER SMOKER BMI CARE GOAL FOLLOW-UP ABOVE NORMAL BMI FOLLOW-UPDIETARY MANAGEMENT EDUCATION, GUIDANCE, AND COUNSELING ALCOHOL SCREENING DID YOU HAVE A DRINK CONTAINING ALCOHOL IN THE PAST YEAR?YES HOW OFTEN DID YOU HAVE A DRINK CONTAINING ALCOHOL IN THE PAST YEAR?TWO TO THREE TIMES PER WEEK (3 POINTS) HOW MANY DRINKS DID YOU HAVE ON A TYPICAL DAY WHEN YOU WERE DRINKING IN THE PAST YEAR?5 OR 6 (2 POINTS) POINTS5 INTERPRETATIONPOSITIVE RECREATIONAL DRUG USE DENIES. CAFFEINE 6 GLASSES OF TEA / DAY. OCCUPATION: DISABLED.. DIET: CONSISTENT CARBOHYDRATES. EXERCISE: NONE. MARITAL STATUS: . PETS: INSIDE MANA PATRICK. 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 LEARNING BARRIERS / SPECIAL NEEDS BARRIERS TO LEARNING?NO HEARING IMPAIRED?NO VISION IMPAIRED?YES :CORRECTIVE LENSES COGNITIVELY IMPAIRED?NO READINESS TO LEARN?YES LEARNING PREFERENCES?YES :DEMONSTRATION/VERBAL INSTRUCTION LEARNING CAPABILITIES PRESENT?YES EMOTIONAL BARRIERS?NO PAIN CLINIC PFS, CLERGY, PUBLIC HEALTH REFERRALS HAS THE PATIENT BEEN EDUCATED REGARDING HIS/HER PLAN OF CARE?YES HAS THE PATIENT BEEN EDUCATED REGARDING PAIN, THE RISK FOR PAIN, THE IMPORTANCE OF EFFECTIVE PAIN MANAGEMENT, AND THE PAIN ASSESSMENT PROCESS?YES ADVANCE DIRECTIVES HEALTH CARE PROXY?NO DO YOU HAVE A DNR?NO LIVING WILL?NO POWER OF THERMITE WELDER?NO TRAVEL OUTSIDE US: [place]: 01/27. REVIEW OF SYSTEMS REVIEWED BY: PROVIDER: ANGUS AYALA MD . CONSTITUTIONAL: ANY CHANGE IN YOUR MEDICAL CONDITION? NO . CHILLS NO . FEVER NO . INFECTION: DO YOU HAVE NEW INFECTIONS? NO . DO YOU HAVE HISTORY OF MRSA? NO . MUSCULOSKELETAL: ANY NEW PATTERNS OF PAIN OR NUMBNESS? NO . GASTROENTEROLOGY: ANY NEW CHANGE IN BOWEL CONTROL? NO . GENITOURINARY: ANY NEW CHANGE IN BLADDER CONTROL? NO . IS THERE A CHANCE YOU COULD BE ? NO . HEMATOLOGY/LYMPH: DO YOU TAKE ANY BLOOD THINNERS? (FOR EXAMPLE- COUMADIN, PLAVIX, AGGRENOX, PLATEL, PRADAXA, OR XARELTO) NO . WHEN WAS YOUR LAST DOSE? DATE: TIME: . NEUROLOGY: HAVE YOU FALLEN IN THE PAST 6 MONTHS? YES . ANY NEW EXTREMITY NUMBNESS OR WEAKNESS? NO . CARDIOLOGY: DO YOU HAVE A PACEMAKER OR DEFIBRILLATOR? NO . RESPIRATORY: HAVE YOU BEEN SICK IN THE PAST WEEK? NO . FEVER NO . FLU LIKE SYMPTOMS? NO . COUGH NO . INTEGUMENTARY: DO YOU HAVE ANY RASHES OR OPEN SORES? NO . ALLERGIC/IMMUNO: ARE YOU ALLERGIC TO SHELLFISH OR IV DYE? NO . ANY NEW ALLERGIES? NO . PSYCHIATRIC: DO YOU HAVE THOUGHTS OF HURTING YOURSELF OR SOMEONE ELSE? NO . ARE YOU ABUSED, NEGLECTED, OR IN AN UNSAFE ENVIRONMENT? NO . ENDOCRINOLOGY: ARE YOU DIABETIC? NO . OTHER: DO YOU NEED ANY PRESCRIPTIONS? NO . IF YES, PLEASE LIST: ____ . ANY NEW PROBLEMS WITH YOUR MEDICATIONS? NO . WHEN DID YOU LAST EAT? ____ . WHEN DID YOU LAST DRINK? ____ . WHAT DID YOU LAST DRINK? ____ . NAME OF PERSON DRIVING YOU HOME? ____ . DO YOU HAVE ANY OTHER QUESTIONS OR CONCERNS NO . VITAL SIGNS WT 186.4 LBS, HT 69 IN, BMI 27.52 INDEX, BP 112/74 MM HG, HR 74 /MIN, RR 18 /MIN, TEMP 97.2 F, OXYGEN SAT % 94%, SAFE IN ENV? (Y/N) YES, NA INITIALS SC 15:24, REVIEWED BY: VD. EXAMINATION : PATIENT IS ALERT O X 3 AND COOPERATIVE. TENDERNESS IN THE LOWER BACK AND PARASPINAL MUSCLE GROUP. TENDERNESS IN THE SACROILIAC JOINT AREA. XRAY OF THE LUMBAR SPINE DONE ON 12/26/14 SHOWS DEGENERATIVE DISC CHANGES. ASSESSMENTS SACROILIITIS, NOT ELSEWHERE CLASSIFIED - M46.1 (PRIMARY) LUMBAGO WITH SCIATICA, UNSPECIFIED SIDE - M54.40 OTHER CHRONIC PAIN - G89.29 TREATMENT SACROILIITIS, NOT ELSEWHERE CLASSIFIED NOTES: WE DISCUSSED SEVERAL ISSUES WITH MR. ROMEO'S PAIN MANAGEMENT CASE. AT THIS TIME THE PATIENT WILL CONTINUE TO USE GABAPENTIN FOR THE NEUROPATHIC PAIN AND TIZANIDINE FOR THE MUSCLE SPASMS. I WOULD LIKE THE PATIENT TO START USING IBUPROFEN FOR THE INFLAMMATION. PATIENT WAS ADVISED TO USE THE MEDICATION WITH FOOD AND TO STOP THE MEDICATION IF HE HAS ANY ADVERSE SIDE EFFECTS. PATIENT WILL RECEIVE XRAY OF THE NECK AND LOWER BACK SO I MAY BETTER ASSESS WHERE THE PAIN IS COMING FROM. DUE TO THE PAIN IN THE SACROILIAC JOINT AREA I WOULD LIKE TO PROCEED WITH A SACROILIAC JOINT INJECTION. WE DISCUSSED THE RISKS, BENENFITS, AND ALTERNATIVES OF THE INJECTION AND THE PATIENT WOULD LIKE TO PROCEED AT THIS TIME. INSTRUCTIONS WERE GIVEN, QUESTIONS WERE ANSWERED, PATIENT REPORTS UNDERSTANDING AND AGREES WITH THE PLAN. I WOULD ALSO LIKE THE PATIENT TO START USING A TENNS UNIT TO SEE IF IT WILL AID IN RELIEF FOR HIS LOWER BACK PAIN. I, RENITA BRAUN, DOCUMENTED THE ABOVE INFORMATION ACTING A SCRIBE FOR DR. AYALA. I HAVE REVIEWED THE ABOVE DOCUMENT, WRITTEN BY RENITA NAIR AND I VERIFY THAT IT IS ACCURATE. PROCEDURE CODES FA211 ESTABILISHED PATIENT [facility] FACILITY CHARGE G8427 DOC MEDS VERIFIED W/PT OR RE G8730 PAIN ASSESS POS TOOL F/U PLAN DOC DISPOSITION & COMMUNICATION FOLLOW UP SIJ AFTER APPROVAL ELECTRONICALLY SIGNED BY ANGUS AYALA MD ON 04/16/2017 AT 02:19 PM EDT DISCLAIMER : THIS IS A VISIT SUMMARY EXTRACTED FROM THE [employer] CHART. IT IS NOT A COPY OF THE [employer] PROGRESS NOTE. ALPA
== END ==
LOC: M PAIN 15:45
PROVIDERS: ATTEND Anesthesiology
DX: G89.29 Other chronic pain (principal); M46.1 Sacroiliitis, not elsewhere classified; M54.40 Lumbago with sciatica, unspecified side; J44.9 Chronic obstructive pulmonary disease, unspecified; E11.9 Type 2 diabetes mellitus without complications; B18.2 Chronic viral hepatitis C; M72.0 Palmar fascial fibromatosis [Dupuytren]; F32.9 Major depressive disorder, single episode, unspecified; F10.10 Alcohol abuse, uncomplicated; Z87.891 Personal history of nicotine dependence; Z79.82 Long term (current) use of aspirin; Z79.4 Long term (current) use of insulin; Z79.899 Other long term (current) drug therapy; Z91.048 Other nonmedicinal substance allergy status; Z88.8 Allergy status to other drugs, medicaments and biological substances

== ENCOUNTER → 2017-04-07 | Outpatient (CLI) | payer MEDICAID ==
[~2017-04-07] MED LIST changes: +BUPIVACAINE HCL 0.25% 30 ML VIAL As Ordered ONE; +ISOVUE-M 300 61% 15ML VIAL (Q9967) As Ordered ONE; +LIDOCAINE 1% SDV INJ 30 ML VIAL As Ordered ONE; +TRIAMCINOLONE ACETONIDE SUSP 40 MG/ML VIAL (J3301) As Ordered ONE; +diazePAM 5 MG TAB As Ordered ONE; +oxyCODONE 5MG TAB As Ordered ONE
--- NOTE | 2017-04-07 14:08 | REP ---
SI JOINT SERIES: Nine views. HISTORY: Bilateral SI joint injection for pain. 28 seconds of fluoroscopy time is reported. FINDINGS: A sequence of nine last image hold fluoroscopic spot radiographs of the SI joints document various needle positions and contrast injections associated with SI joint injection procedure. Signed by Vaughn Plata MD 04/07/2017 05:44 P
--- NOTE | 2017-04-07 23:31 | ECWPNPC ---
PATIENT NAME: JUANA ROMEO : 1960 GENDER: MALE VISIT DATE: 04/07/2017 DISCHARGE DATE: 04/07/17 1238 VISIT LOCKED DATE TIME: PHYSICIAN: ANGUS AYALA RESOURCE: ANGUS AYALA REASON FOR APPOINTMENT 1. SIJ HISTORY OF PRESENT ILLNESS HISTORY OF PRESENT ILLNESS: PAIN THE PATIENT DESCRIBES THE PAIN... FALL RISK SCREENING: SCREENING :NO FALLS IN THE PAST YEAR CURRENT MEDICATIONS TAKING TRAZODONE HCL 150 MG TABLET 1 TABLET AT BEDTIME NEEDED ORALLY ONCE A DAY, NOTES: 04/05/172199 TAKING IBUPROFEN 800 MG TABLET 1 TABLET WITH FOOD OR MILK ORALLY EVERY 6 HOURS NEEDED FOR PAIN MDD3, NOTES: 04/07/17499 TAKING GABAPENTIN 300 MG CAPSULE 1 CAPSULE ORALLY THREE TIMES A DAY, NOTES: 04/07/17499 TAKING TIZANIDINE HCL 4 MG TABLET 1 TABLET NEEDED ORALLY FOR SPASMS AND PAIN TWICE DAILY NEEDED MDD2, NOTES: 04/06/172099 TAKING ASPIR-81 81 MG TABLET DELAYED RELEASE 1 TABLET ORALLY ONCE A DAY, NOTES: 04/07/17499 TAKING ALBUTEROL SULFATE HFA 108 (90 BASE) MCG/ACT AEROSOL SOLUTION 2 PUFFS INHALATION EVERY 4 HOURS NEEDED, NOTES: > 1 MONTH TAKING ADVAIR DISKUS 500-50 MCG/DOSE POWDER 1 PUFF INHALATION TWICE A DAY, NOTES: 04/06/172099 TAKING GLUCOMETER ONE TOUCH - GLUCOMETER ICD:250.02 IDDM FSBS FOUR TIMES DAILY TAKING ADJUSTABLE ALUMINUM CANE __ MISCELLANEOUS ICD: 355.9 ___ TAKING SYRINGE (DISPOSABLE) 100 UNITS MISCELLANEOUS 1 NEEDLE/SYRINGE INTRADERMALLY 4 TIMES A DAY TAKING GLUCOSE BLOOD ONE TOUCH STRIP TEST STRIPS ICD: E11.9 IDDM FSBS FOUR TIMES DAILY TAKING CARAFATE 1 GM/10ML SUSPENSION 10 ML ORALLY TWICE A DAY, NOTES: 04/07/17499 TAKING FLOMAX 0.4 MG CAPSULE 1 CAPSULE 30 MINUTES AFTER THE SAME MEAL EACH DAY ORALLY ONCE A DAY, NOTES: 04/07/17499 TAKING PRILOSEC 20 MG CAPSULE DELAYED RELEASE 2 CAPSULE ORALLY ONCE A DAY NEEDED, NOTES: 04/07/17499 TAKING CITALOPRAM HYDROBROMIDE 20 MG TABLET 1 TABLET ORALLY ONCE A DAY, NOTES: 04/07/17 0600 TAKING LANTUS 100 UNIT/ML SOLUTION 50 UNITS SUBCUTANEOUS TWICE DAILY, NOTES: 04/06/171999 TAKING HUMALOG 100 UNIT/ML SOLUTION PER SLIDING SCALE SUBCUTANEOUS BEFORE MEALS MDD: 100 UNITS, NOTES: 04/06/171999 TAKING ONDANSETRON 4 MG TABLET DISINTEGRATING 1 TABLET ON THE TONGUE AND ALLOW TO DISSOLVE ORALLY EVERY 4 HRS, NOTES: > 2 WEEKS TAKING ATORVASTATIN CALCIUM 10 MG TABLET 1 TABLET ORALLY ONCE A DAY, NOTES: 04/07/17 0500 TAKING VITAMIN D 1000 UNIT TABLET 1 TABLET ORALLY ONCE A DAY, NOTES: 04/07/17 0500 TAKING LISINOPRIL 10 MG TABLET 1 TABLET ORALLY ONCE A DAY, NOTES: 04/06/17 0800 MEDICATION LIST REVIEWED AND RECONCILED WITH THE PATIENT PAST MEDICAL HISTORY COPD SPIROMETRY 02/14/15 DIABETES MELLITUS TYPE 2 SINCE 1980 CHRONIC HEPATITIS C GENOTYPE 1A LIVER CIRRHOSIS F4, HEPATITIS A- HEPATITIS B NEGATIVE DIAGNOSED AGE 16 TREATED WITH HARVONI FOR 12 WEEKS -11/2014 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 ETOH ABUSE ECHO 2013: EF 65-70%, MILD LVH WITH PRESERVED LV SYSTOLIC FUNCTION AND GRADE 1 DIASTOLIC DYSFUNCTION, NO SIGNS OF PULMONARY HYPERTENSION ECHO OCTOBER 2014: EF 60% GRADE 1 DIASTOLIC DYSFUNCTION, BORDERLINE LVH ALLERGIES VERSED: PSYCHOTIC REACTION: ALLERGY PLASTIC OR VINYL TAPE: TEARS SKIN: ALLERGY REVIEW OF SYSTEMS REVIEWED BY: PROVIDER: . CONSTITUTIONAL: ANY CHANGE IN YOUR MEDICAL CONDITION? NO . CHILLS NO . FEVER NO . INFECTION: DO YOU HAVE NEW INFECTIONS? NO . DO YOU HAVE HISTORY OF MRSA? NO . MUSCULOSKELETAL: ANY NEW PATTERNS OF PAIN OR NUMBNESS? NO . GASTROENTEROLOGY: ANY NEW CHANGE IN BOWEL CONTROL? NO . GENITOURINARY: ANY NEW CHANGE IN BLADDER CONTROL? NO . IS THERE A CHANCE YOU COULD BE ? NO . HEMATOLOGY/LYMPH: DO YOU TAKE ANY BLOOD THINNERS? (FOR EXAMPLE- COUMADIN, PLAVIX, AGGRENOX, PLATEL, PRADAXA, OR XARELTO) NO . WHEN WAS YOUR LAST DOSE? DATE: TIME: . NEUROLOGY: HAVE YOU FALLEN IN THE PAST 6 MONTHS? YES PT REPORTS HE HAS ORTHOSTATIC HYPOTENSION, BECAME DIZZY UPON RISING AND FELL. . ANY NEW EXTREMITY NUMBNESS OR WEAKNESS? NO . CARDIOLOGY: DO YOU HAVE A PACEMAKER OR DEFIBRILLATOR? NO . RESPIRATORY: HAVE YOU BEEN SICK IN THE PAST WEEK? NO . FEVER NO . FLU LIKE SYMPTOMS? NO . COUGH NO . INTEGUMENTARY: DO YOU HAVE ANY RASHES OR OPEN SORES? NO . ALLERGIC/IMMUNO: ARE YOU ALLERGIC TO SHELLFISH OR IV DYE? NO . ANY NEW ALLERGIES? NO . PSYCHIATRIC: DO YOU HAVE THOUGHTS OF HURTING YOURSELF OR SOMEONE ELSE? NO . ARE YOU ABUSED, NEGLECTED, OR IN AN UNSAFE ENVIRONMENT? NO . ENDOCRINOLOGY: ARE YOU DIABETIC? NO . OTHER: DO YOU NEED ANY PRESCRIPTIONS? NO . IF YES, PLEASE LIST: ____ . ANY NEW PROBLEMS WITH YOUR MEDICATIONS? NO . WHEN DID YOU LAST EAT? YES 04/07/17 0500 . WHEN DID YOU LAST DRINK? ____04/07/17 0900 . WHAT DID YOU LAST DRINK? ____WATER . NAME OF PERSON DRIVING YOU HOME? ____[employer] . DO YOU HAVE ANY OTHER QUESTIONS OR CONCERNS NO . VITAL SIGNS WT 186 LBS, HT 69 IN, BMI 27.46 INDEX, BP 125/85 MM HG, HR 74 /MIN, RR 18 /MIN, TEMP 97.9 F, OXYGEN SAT % 94%, SAFE IN ENV? (Y/N) YES, NA INITIALS MI 11:06, REVIEWED BY: LAS. TUCKER SACROILIITIS, NOT ELSEWHERE CLASSIFIED - M46.1 (PRIMARY) PROCEDURES PN SI PRE PROCEDURE DIAGNOSIS SACROILIITIS, SACROILIAC JOINT DYSFUNCTION POST PROCEDURE DIAGNOSIS SACROILIITIS, SACROILIAC JOINT DYSFUNCTION PROCEDURE BILATERAL SACROILIAC JOINT BLOCK SURGEON DR. ANGUS AYALA COAL LOADER NONE ANESTHESIA LOCAL PRE PROCEDURE NOTE PATIENT WITH HISTORY OF CHRONIC LOW BACK PAIN. I EVALUATED THE PATIENT AND REVIEWED THE CHART. I WENT OVER THE RISKS, ALTERNATIVES, AND BENEFITS ASSOCIATED WITH THIS PROCEDURE. THE PATIENT WOULD LIKE TO PROCEED AND GAVE CONSENT TO PERFORM THE PROCEDURE. THE PATIENT DENIES UNEXPLAINABLE WEIGHT LOSS, FEVER, CHILLS, OR NEW CHANGES IN URINARY OR BOWEL CONTROL DESCRIPTION OF PROCEDURE THE PATIENT WAS BROUGHT TO THE PROCEDURE ROOM AND PLACED IN THE PRONE POSITION. THE LUMBOSACRAL AREA WAS CLEANED WITH CHLORAPREP SOLUTION AND DRAPED ASEPTICALLY. THE PROCEDURE WAS DONE UNDER STERILE CONDITIONS. I CHECKED LATERALITY AND THE LEVEL WHERE THE PROCEDURE WAS GOING TO BE PERFORMED WITH THE PATIENT AND THE SUPPORTING STAFF AT THE MOMENT OF THE TIME OUT IN THE PROCEDURE ROOM. UNDER FLUOROSCOPIC GUIDANCE, TARGET POINT WAS SELECTED AT THE LOWER BORDER OF THE RIGHT AND LEFT SACROILIAC JOINT. TARGET POINT WAS SELECTED AFTER MEDIAL ROTATION AND TILT OF THE MAGNIFIER OF THE C-ARM. LIDOCAINE WAS USED TO NUMB THE SKIN AND SUBCUTANEOUS TISSUE BELOW IT. A SPINAL NEEDLE, 22-GAUGE, WAS ADVANCED UNDER FLUOROSCOPIC GUIDANCE AND FOLLOWING PATIENT FEEDBACK UNTIL THE TARGET AREA WAS TOUCHED. THE POSITION OF THE NEEDLE WAS VERIFIED WITH AP AND LATERAL VIEWS. AFTER PROPER POSITION OF THE NEEDLE WAS ACHIEVED, ISOVUE M DYE 30%, 0.25 ML, WAS INJECTED SHOWING SPREAD OF THE DYE. THEN, A SOLUTION OF 20 MG OF KENALOG WAS INJECTED IN RIGHT JOINT WITH 3 ML OF BUPIVACAINE 0.125%. THERE WAS NO EVIDENCE OF BLOOD, PARESTHESIA OR CEREBROSPINAL FLUID DURING THE PROCEDURE. THE PATIENT WAS SENT TO THE RECOVERY ROOM. THE PATIENT WAS MOVING THE EXTREMITIES AND DOING WELL. THERE WAS NO COMPLICATION DURING THE PROCEDURE. FLUOROSCOPY TIME WAS 28 SECONDS POST PROCEDURE NOTE THE PATIENT WILL BE SEEN IN A FOLLOW UP IN THE NEXT FEW WEEKS. INSTRUCTIONS WERE GIVEN, QUESTIONS WERE ANSWERED, AND THE PATIENT EXPRESSED UNDERSTANDING AND AGREED WITH THE PLAN. I, RENITA BRAUN, DOCUMENTED THE ABOVE INFORMATION ACTING A SCRIBE FOR DR. AYALA. I HAVE REVIEWED THE ABOVE DOCUMENT, WRITTEN BY RENITA MARIOIBSangeeta AND I VERIFY THAT IT IS ACCURATE DIAGNOSTIC IMAGING [facility] FLUORO GUIDANCE (PAIN)[id number] PROCEDURE CODES 29096 INJECT SACROILIAC JOINT, MODIFIERS: 50 [id number] RADXPS IN END [id number] PXD DISPOSITION & COMMUNICATION FOLLOW UP 3 WEEKS ELECTRONICALLY SIGNED BY ANGUS AYALA MD ON 04/07/2017 AT 05:50 PM EDT DISCLAIMER : THIS IS A VISIT SUMMARY EXTRACTED FROM THE [employer] CHART. IT IS NOT A COPY OF THE [employer] PROGRESS NOTE. MTDD
== END ==
LOC: M PAIN 11:00
PROVIDERS: ATTEND Anesthesiology
DX: G89.29 Other chronic pain (principal); M46.1 Sacroiliitis, not elsewhere classified; M53.88 Other specified dorsopathies, sacral and sacrococcygeal region; E11.9 Type 2 diabetes mellitus without complications; F32.9 Major depressive disorder, single episode, unspecified; M15.0 Primary generalized (osteo)arthritis; J44.9 Chronic obstructive pulmonary disease, unspecified; I10 Essential (primary) hypertension; K74.69 Other cirrhosis of liver; K21.9 Gastro-esophageal reflux disease without esophagitis; E55.9 Vitamin D deficiency, unspecified; I25.2 Old myocardial infarction; F43.23 Adjustment disorder with mixed anxiety and depressed mood; F10.20 Alcohol dependence, uncomplicated; Z88.8 Allergy status to other drugs, medicaments and biological substances; L23.1 Allergic contact dermatitis due to adhesives; I95.1 Orthostatic hypotension; Z79.82 Long term (current) use of aspirin; Z79.4 Long term (current) use of insulin; Z79.899 Other long term (current) drug therapy
CPT/HCPCS: G0260; J3301; Q9967

== ENCOUNTER → 2017-06-01 | Outpatient (CLI) | payer MEDICAID ==
[~2017-06-01] MED LIST changes: -BUPIVACAINE HCL 0.25% 30 ML VIAL As Ordered ONE; -ISOVUE-M 300 61% 15ML VIAL (Q9967) As Ordered ONE; -LIDOCAINE 1% SDV INJ 30 ML VIAL As Ordered ONE; -TRIAMCINOLONE ACETONIDE SUSP 40 MG/ML VIAL (J3301) As Ordered ONE; -diazePAM 5 MG TAB As Ordered ONE; -oxyCODONE 5MG TAB As Ordered ONE
--- NOTE | 2017-06-01 12:04 | REP ---
CERVICAL SPINE: AP and lateral views of the cervical spine are performed. No compression fracture is seen. There is slight retrolisthesis of C5 on C6 which appears to be due to posterior facet arthropathy, with mild posterior inferior spurring of the C5 vertebral body. There is mild diffuse anterior spurring of C4-C7. There is slight disc space narrowing at C3-4. There is mild narrowing and subchondral sclerosis at C5-6 and C6-7. There is moderate diffuse narrowing and sclerosis at the posterior facet joints. Mild vascular calcifications are seen in the soft tissues of the neck bilaterally compatible with carotid artery calcifications. IMPRESSION: Mild diffuse degenerative changes as above. Signed by Case Garsia MD 06/01/2017 05:57 P
--- NOTE | 2017-06-01 12:07 | REP ---
LUMBOSACRAL SPINE: AP and lateral views of the lumbosacral spine performed. There is no compression fracture. There is normal lumbar lordosis. There is mild diffuse spurring. There is slight disc space narrowing and subchondral sclerosis at all levels. There is diffuse sclerosis at the posterior facet joints. The posterior elements are intact. There is minimal curvature toward the left. IMPRESSION: Mild diffuse degenerative changes. Signed by Case Garsia MD 06/01/2017 05:57 P
== END ==
LOC: M RAD 08:46
PROVIDERS: ATTEND Anesthesiology
DX: M51.36 Other intervertebral disc degeneration, lumbar region (principal); M51.37 Other intervertebral disc degeneration, lumbosacral region; M50.30 Other cervical disc degeneration, unspecified cervical region

== ENCOUNTER → 2017-06-01 | Outpatient (CLI) | payer MEDICAID ==
[2017-06-01 09:47] LABS: ANION GAP 5 MEQ/L (8-16); BLOOD UREA NITROGEN 6 MG/DL (7-18); CARBON DIOXIDE LEVEL 34 MEQ/L (21-32); CHLORIDE LEVEL 98 MEQ/L (98-107); GLOMERULAR FILTRATION RATE > 60.0 (>56); GLUCOSE, FASTING 165 MG/DL (70-105); POTASSIUM SERUM 3.7 MEQ/L (3.5-5.1); SODIUM LEVEL 137 MEQ/L (136-145)
== END ==
LOC: M LAB 08:40
PROVIDERS: ATTEND Obstetrics & Gynecology
DX: E11.8 Type 2 diabetes mellitus with unspecified complications (principal)

== ENCOUNTER → 2017-06-05 | Outpatient (CLI) | payer MEDICAID ==
--- NOTE | 2017-06-08 23:17 | ECWPNPC ---
PATIENT NAME: JUANA ROMEO : 1960 GENDER: MALE VISIT DATE: 06/05/2017 DISCHARGE DATE: 06/05/17 1006 VISIT LOCKED DATE TIME: PHYSICIAN: ANGUS AYALA RESOURCE: ANGUS AYALA REASON FOR APPOINTMENT 1. LOW BACK PAIN HISTORY OF PRESENT ILLNESS HISTORY OF PRESENT ILLNESS: PAIN THE PATIENT DESCRIBES THE PAIN... 56 YEAR OLD MALE PATIENT WITH HISTORY OF CHRONIC LOW BACK PAIN. PATIENT DESCRIBES THE PAIN ACHING, TENDER, SORE, SHOOTING, AND HAVING IT ALL THE TIME WITH A PAIN SCORE OF 4-7/10. PATIENT RECEIVED A SACROILIAC JOINT INJECTION ON 04/07/17 AND REPORTS HAVING OVER A MONTH 2 MONTHS OF RELIEF WITH OVER 50% RELIEF FROM THE PAIN. PATIENT STATES THAT HE IS ABLE TO DO MORE SUCH BENDING OVER TO TIE HIS SHOES, GETTING IN AND OUT OF A VEHICLE AND SHOWERING. PATIENT REPORTS THAT HE NO LONGER HAVE THE PAIN DOWN THE LEGS SINCE THE INJECTION MAKING IT MUCH EASIER TO WALK. MR. VASQUEZ STATES THAT HE IS HAVING PAIN HIGHER AT THIS TIME. PATIENT REPORTS BREAKING HIS BACK WHEN HE FELL. CURRENTLY THE PATIENT IS USING TIZANIDINE, IBUPROFEN AND GABAPENTIN TO AID IN PAIN RELIEF. PATIENT WAS USING OXYCONTIN BUT WAS TAKEN OFF OF IT DUE TO SUICIDAL THOUGHTS AND ATTEMPTS. PATIENT DENIES UNEXPLAINABLE WEIGHT LOSS, FEVER, CHILLS, NEW CHANGES ON HIS URINARY OR BOWEL CONTROL. FALL RISK SCREENING: SCREENING :NO FALLS IN THE PAST YEAR CURRENT MEDICATIONS TAKING DRISDOL 08815 UNIT CAPSULE 1 CAPSULE ORALLY TAKING IBUPROFEN 800 MG TABLET 1 TABLET WITH FOOD OR MILK ORALLY EVERY 6 HOURS NEEDED FOR PAIN MDD3 TAKING GABAPENTIN 300 MG CAPSULE 1 CAPSULE ORALLY THREE TIMES A DAY TAKING CARAFATE 1 GM/10ML SUSPENSION 10 ML ORALLY TWICE A DAY TAKING VITAMIN D 1000 UNIT TABLET 1 TABLET ORALLY ONCE A DAY TAKING METOCLOPRAMIDE HCL 10 MG TABLET DIRECTED ORALLY BID TAKING ALBUTEROL SULFATE HFA 108 (90 BASE) MCG/ACT AEROSOL SOLUTION 2 PUFFS INHALATION EVERY 4 HOURS NEEDED, NOTES: > 1 MONTH TAKING ADVAIR DISKUS 500-50 MCG/DOSE POWDER 1 PUFF INHALATION TWICE A DAY TAKING FLOMAX 0.4 MG CAPSULE 1 CAPSULE 30 MINUTES AFTER THE SAME MEAL EACH DAY ORALLY ONCE A DAY TAKING ONETOUCH VERIO - STRIP 1 E11.8 FINGERSTICK BLOOD SUGAR TID TAKING ONETOUCH DELICA LANCETS 1 1 LANCET E11.8 FINGERSTICK BLOOD GLUCOSE, TID TAKING LANTUS 100 UNIT/ML SOLUTION 50 UNITS SUBCUTANEOUS TWICE DAILY TAKING HUMALOG 100 UNIT/ML SOLUTION PER SLIDING SCALE SUBCUTANEOUS BEFORE MEALS MDD: 100 UNITS TAKING ONDANSETRON 4 MG TABLET DISINTEGRATING 1 TABLET ON THE TONGUE AND ALLOW TO DISSOLVE ORALLY EVERY 4 HRS, NOTES: > 2 WEEKS TAKING FAMOTIDINE 40 MG TABLET 1 TABLET ORALLY ONCE A DAY TAKING ASPIR-81 81 MG TABLET DELAYED RELEASE 1 TABLET ORALLY ONCE A DAY TAKING ATORVASTATIN CALCIUM 10 MG TABLET 1 TABLET ORALLY ONCE A DAY TAKING TIZANIDINE HCL 4 MG TABLET 1 TABLET NEEDED ORALLY FOR SPASMS AND PAIN TWICE DAILY NEEDED MDD2 TAKING TRAZODONE HCL 150 MG TABLET 1 TABLET AT BEDTIME NEEDED ORALLY ONCE A DAY TAKING LISINOPRIL 5 MG TABLET 1 TABLET ORALLY ONCE A DAY TAKING ENSURE HIGH PROTEIN - LIQUID 1 CAN ORALLY THREE TIMES DAILY, WITH MEALS MEDICAID# [id number], DX: K90.9, K31.84 NOT-TAKING PRILOSEC 20 MG CAPSULE DELAYED RELEASE 2 CAPSULE ORALLY ONCE A DAY NEEDED, NOTES: 04/07/17 0500 NOT-TAKING CARAFATE 1 GM TABLET 1 TABLET AT BEDTIME ON AN EMPTY STOMACH BEFORE MEALS ORALLY TWICE A DAY NOT-TAKING LISINOPRIL 10 MG TABLET 1 TABLET ORALLY ONCE A DAY UNKNOWN GLUCOMETER ONE TOUCH - GLUCOMETER ICD:250.02 IDDM FSBS FOUR TIMES DAILY UNKNOWN ADJUSTABLE ALUMINUM CANE __ MISCELLANEOUS ICD: 355.9 ___ UNKNOWN SYRINGE (DISPOSABLE) 100 UNITS MISCELLANEOUS 1 NEEDLE/SYRINGE INTRADERMALLY 4 TIMES A DAY UNKNOWN GLUCOSE BLOOD ONE TOUCH STRIP TEST STRIPS ICD: E11.9 IDDM FSBS FOUR TIMES DAILY UNKNOWN CITALOPRAM HYDROBROMIDE 20 MG TABLET 1 TABLET ORALLY ONCE A DAY MEDICATION LIST REVIEWED AND RECONCILED WITH THE PATIENT PAST MEDICAL HISTORY COPD SPIROMETRY 02/14/15 DIABETES MELLITUS TYPE 2 SINCE 1980 CHRONIC HEPATITIS C GENOTYPE 1A LIVER CIRRHOSIS F4, HEPATITIS A- HEPATITIS B NEGATIVE DIAGNOSED AGE 16 TREATED WITH HARVONI FOR 12 WEEKS 3-11/2014 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 ETOH ABUSE ECHO 2013: EF 65-70%, MILD LVH WITH PRESERVED LV SYSTOLIC FUNCTION AND GRADE 1 DIASTOLIC DYSFUNCTION, NO SIGNS OF PULMONARY HYPERTENSION ECHO OCTOBER 2014: EF 60% GRADE 1 DIASTOLIC DYSFUNCTION, BORDERLINE LVH ALLERGIES VERSED: PSYCHOTIC REACTION: ALLERGY PLASTIC OR VINYL TAPE: TEARS SKIN: ALLERGY SOCIAL HISTORY GENERAL: TOBACCO USE ARE YOU A:FORMER SMOKER HOW LONG HAS IT BEEN SINCE YOU LAST SMOKED?> 10 YEARS LUNG CANCER SCREENING SMOKING STATUS:FORMER SMOKER BMI CARE GOAL FOLLOW-UP ABOVE NORMAL BMI FOLLOW-UPDIETARY MANAGEMENT EDUCATION, GUIDANCE, AND COUNSELING ALCOHOL SCREENING DID YOU HAVE A DRINK CONTAINING ALCOHOL IN THE PAST YEAR?YES HOW MANY DRINKS DID YOU HAVE ON A TYPICAL DAY WHEN YOU WERE DRINKING IN THE PAST YEAR?5 OR 6 (2 POINTS) HOW OFTEN DID YOU HAVE A DRINK CONTAINING ALCOHOL IN THE PAST YEAR?TWO TO THREE TIMES PER WEEK (3 POINTS) POINTS5 INTERPRETATIONPOSITIVE RECREATIONAL DRUG USE DENIES. CAFFEINE 6 GLASSES OF TEA / DAY. SEXUAL HX HAD SEX IN THE LAST 12 MONTHS (VAGINAL, ORAL, OR ANAL)?NO OCCUPATION: DISABLED.. DIET: CONSISTENT CARBOHYDRATES. EXERCISE: NONE. MARITAL STATUS: . OTHERS AT HOME: SPOUSE. PETS: INSIDE A[employer]. 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 LEARNING BARRIERS / SPECIAL NEEDS BARRIERS TO LEARNING?NO HEARING IMPAIRED?NO VISION IMPAIRED?YES COGNITIVELY IMPAIRED?NO :CORRECTIVE LENSES READINESS TO LEARN?YES LEARNING PREFERENCES?YES :DEMONSTRATION/VERBAL INSTRUCTION LEARNING CAPABILITIES PRESENT?YES EMOTIONAL BARRIERS?NO PAIN CLINIC PFS, CLERGY, PUBLIC HEALTH REFERRALS HAS THE PATIENT BEEN EDUCATED REGARDING HIS/HER PLAN OF CARE?YES HAS THE PATIENT BEEN EDUCATED REGARDING PAIN, THE RISK FOR PAIN, THE IMPORTANCE OF EFFECTIVE PAIN MANAGEMENT, AND THE PAIN ASSESSMENT PROCESS?YES ADVANCE DIRECTIVES HEALTH CARE PROXY?NO POWER OF DIRECTOR PRODUCT SAFETY?NO DO YOU HAVE A DNR?NO LIVING WILL?NO TRAVEL OUTSIDE US: [place]: 01/27. REVIEW OF SYSTEMS REVIEWED BY: PROVIDER: ANGUS AYALA MD . CONSTITUTIONAL: ANY CHANGE IN YOUR MEDICAL CONDITION? NO . CHILLS NO . FEVER NO . INFECTION: DO YOU HAVE NEW INFECTIONS? NO . DO YOU HAVE HISTORY OF MRSA? NO . MUSCULOSKELETAL: ANY NEW PATTERNS OF PAIN OR NUMBNESS? NO . GASTROENTEROLOGY: ANY NEW CHANGE IN BOWEL CONTROL? NO . GENITOURINARY: ANY NEW CHANGE IN BLADDER CONTROL? NO . IS THERE A CHANCE YOU COULD BE ? NO . HEMATOLOGY/LYMPH: DO YOU TAKE ANY BLOOD THINNERS? (FOR EXAMPLE- COUMADIN, PLAVIX, AGGRENOX, PLATEL, PRADAXA, OR XARELTO) NO . WHEN WAS YOUR LAST DOSE? DATE: TIME: . NEUROLOGY: HAVE YOU FALLEN IN THE PAST 6 MONTHS? YES NOT FALLEN SINCE LAST VISIT BUT DOES STUMBLE ON OCCASION . ANY NEW EXTREMITY NUMBNESS OR WEAKNESS? NO . CARDIOLOGY: DO YOU HAVE A PACEMAKER OR DEFIBRILLATOR? NO . RESPIRATORY: HAVE YOU BEEN SICK IN THE PAST WEEK? NO . FEVER NO . FLU LIKE SYMPTOMS? NO . COUGH NO . INTEGUMENTARY: DO YOU HAVE ANY RASHES OR OPEN SORES? NO . ALLERGIC/IMMUNO: ARE YOU ALLERGIC TO SHELLFISH OR IV DYE? NO . ANY NEW ALLERGIES? NO . PSYCHIATRIC: DO YOU HAVE THOUGHTS OF HURTING YOURSELF OR SOMEONE ELSE? NO . ARE YOU ABUSED, NEGLECTED, OR IN AN UNSAFE ENVIRONMENT? NO . ENDOCRINOLOGY: ARE YOU DIABETIC? YES . OTHER: DO YOU NEED ANY PRESCRIPTIONS? YES TIZANADINE IBUPROFEN . IF YES, PLEASE LIST: ____ . ANY NEW PROBLEMS WITH YOUR MEDICATIONS? NO . WHEN DID YOU LAST EAT? ____ . WHEN DID YOU LAST DRINK? ____ . WHAT DID YOU LAST DRINK? ____ . NAME OF PERSON DRIVING YOU HOME? ____ . DO YOU HAVE ANY OTHER QUESTIONS OR CONCERNS NO . VITAL SIGNS WT 183 LBS, HT 69 IN, BMI 27.02 INDEX, BP 108/70 MM HG, HR 119 /MIN, RR 18 /MIN, TEMP 98.0 F, OXYGEN SAT % 94%, NA INITIALS [id number]. EXAMINATION : PATIENT IS ALERT O X 3 AND COOPERATIVE. TENDERNESS IN THE LOWER BACK AND PARASPINAL MUSCLE GROUP. BANDS OF TISSUE, RESTRICTION OF MOVEMENT, AND PRESENCE OF TRIGGER POINTS IN THE LOWER BACK. BEND 80 DEGREES EXTEND 5 DEGREES. ANTALGIC GAIT. WALKS WITH A CANE. TENDERNESS IN THE SACROILIAC JOINT AREA. XRAY OF THE LUMBAR SPINE DONE ON 12/26/14 SHOWS DEGENERATIVE DISC CHANGES. 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 ROMEO'S PAIN MANAGEMENT CASE. AT THIS TIME THE PATIENT WILL CONTINUE WITH THE SAME MEDICATION REGIME. PATIENT WAS REMINDED TO USE THE IBUPROFEN WITH FOOD TO AVOID GASTROINTESTINAL ISSUES. PATIENT WILL RECEIVE A LUMBAR MRI DUE TO THE X-RAY AND CT NOT SHOWING THE SOFT TISSUES OF THE LOWER BACK OR THE AMOUNT OF PAIN THE PATIENT IS HAVING. PATIENT WILL USE AN OPEN MRI DUE TO BEING CLAUSTROPHOBIC. DUE TO THE SPASTICITY AND BANDS OF TISSUE I WOULD LIKE TO PROCEED WITH TRIGGER POINT INJECTIONS AT THE LOWER BACK. WE DISCUSSED THE RISKS, BENEFITS, AND ALTNERATIVES OF THE INJECTION AND THE PATIENT WOULD LIKE TO PROCEED AT THIS TIME. WE DISCUSSED SEVERAL INJECTIONS THAT MAY AID IN RELIEF IF THE TRIGGER POINT INJECTIONS DO NOT AID IN RELIEF SUCH A RADIOFREQUENCY. INSTRUCTIONS WERE GIVEN, QUESTIONS WERE ANSWERED, PATIENT REPORTS UNDERSTANDING AND AGREES WITH THE PLAN. I, RENITA BRAUN, DOCUMENTED THE ABOVE INFORMATION ACTING A SCRIBE FOR DR. AYALA. I HAVE REVIEWED THE ABOVE DOCUMENT, WRITTEN BY RENITA MARIOIBSangeeta AND I VERIFY THAT IT IS ACCURATE. PREVENTIVE MEDICINE REVIEWED PRE PROCEDURE CARE AND WHAT TO EXPECT WITH THE TRIGGAR POINT INJECTION / PT EXPRESSED UNDERSTANDING OF ALL. PROCEDURE CODES FA211 ESTABILISHED PATIENT [facility] FACILITY CHARGE G8427 DOC MEDS VERIFIED W/PT OR RE G8730 PAIN ASSESS POS TOOL F/U PLAN DOC DISPOSITION & COMMUNICATION FOLLOW UP TPI AFTER APPROVAL ELECTRONICALLY SIGNED BY ANGUS AYALA MD ON 06/08/2017 AT 10:46 PM EST DISCLAIMER : THIS IS A VISIT SUMMARY EXTRACTED FROM THE [employer] CHART. IT IS NOT A COPY OF THE [employer] PROGRESS NOTE. MTDD
== END ==
LOC: M PAIN 09:00
PROVIDERS: ATTEND Anesthesiology
DX: G89.29 Other chronic pain (principal); M54.5 Low back pain; M47.816 Spondylosis without myelopathy or radiculopathy, lumbar region; M47.817 Spondylosis without myelopathy or radiculopathy, lumbosacral region; M79.1 Myalgia; J44.9 Chronic obstructive pulmonary disease, unspecified; E11.9 Type 2 diabetes mellitus without complications; F32.9 Major depressive disorder, single episode, unspecified; F10.10 Alcohol abuse, uncomplicated; L23.1 Allergic contact dermatitis due to adhesives; Z88.8 Allergy status to other drugs, medicaments and biological substances; Z79.4 Long term (current) use of insulin; Z79.82 Long term (current) use of aspirin; Z79.899 Other long term (current) drug therapy; Z87.891 Personal history of nicotine dependence; Z91.5 Personal history of self-harm

== ENCOUNTER 2017-06-12 09:18 | Inpatient (IN) | payer MEDICAID ==
[2017-06-12] MEDS: LEVEMIR (INSULIN DETEMIR) 1 UNITS/0.01ML SC (09:00)
[2017-06-12 10:11] LABS: BASO % 0.4 % (0.0-1.0); EOS # 0.1 10^3/uL (0.0-0.50); EOS % 1.6 % (0.0-3.0); IMMATURE GRANULOCYTE % 0.6 % (0-0); LYMPH # 1.5 10^3/uL (1.5-4.5); LYMPH % 20.6 % (24.0-44.0); MEAN CORPUSCULAR HEMOGLOBIN 31.9 pg (27.0-33.0); MEAN CORPUSCULAR HGB CONC 35.3 g/dl (32.0-36.5); MEAN CORPUSCULAR VOLUME 90.4 fl (80.0-96.0); MONO # 0.8 10^3/uL (0.0-0.8); MONO % 11.7 % (0.0-5.0); NEUTROPHILS # 4.6 10^3/uL (1.8-7.7); NEUTROPHILS % 65.1 % (36.0-66.0); PLATELET COUNT, AUTOMATED 116 10^3/uL (150-450); RED CELL DISTRIBUTION WIDTH 12.6 % (11.5-14.5); WHITE BLOOD COUNT 7.1 10^3/uL (4.0-10.0)
[2017-06-12] MEDS: MORPHINE 4 MG/ML 1ML SYRINGE IV ×2 (10:18→15:11)
[2017-06-12] MEDS ORDERED: ONDANSETRON 4MG/2ML VIAL (J2405) As Ordered (10:19)
[2017-06-12] MEDS: ONDANSETRON 4MG/2ML VIAL (J2405) IV ×2 (10:30→18:46)
[2017-06-12 10:32] LABS: ANION GAP 7 MEQ/L (8-16); BLOOD UREA NITROGEN 11 MG/DL (7-18); CALCIUM LEVEL 8.6 MG/DL (8.5-10.1); CARBON DIOXIDE LEVEL 26 MEQ/L (21-32); CHLORIDE LEVEL 106 MEQ/L (98-107); CREATININE FOR GFR 0.67 MG/DL (0.70-1.30); GLOMERULAR FILTRATION RATE > 60.0 (>56); GLUCOSE, FASTING 311 MG/DL (70-105); POTASSIUM SERUM 4.3 MEQ/L (3.5-5.1); SODIUM LEVEL 139 MEQ/L (136-145)
[2017-06-12] MEDS: LORazepam 2 MG/ML VIAL (J2060) IV (12:04)
[2017-06-12] MEDS ORDERED: GLUCOSE 4 GM CHEW TABLET PO (13:00)
[2017-06-12] MEDS ORDERED: GLUCAGON FOR INJ 1 MG VIAL (J1610) SC (13:00)
[2017-06-12] MEDS ORDERED: DEXTROSE 50% 50 ML SYRINGE IV (13:00)
[2017-06-12 13:46] LABS: CHOLESTEROL LEVEL 146 MG/DL (<200); TRIGLYCERIDES LEVEL 236 MG/DL (<150)
[2017-06-12] MEDS: HEPARIN SOD (PORCINE) 5000 UNITS/ML VIAL SC ×2 (14:00→20:18)
[2017-06-12] MEDS: IPRATROPIUM 0.5MG/ALBUTEROL 2.5MG INH SOL UD 3ML (DUONEB)(J7620) NEB ×2 (14:10→20:00)
[2017-06-12] MEDS: HumaLOG INSULIN (NovoLOG) PER UNIT SC ×3 (14:45→20:17)
[2017-06-12] MEDS: SUCRALFATE 1 GM TAB PO ×3 (15:11→20:18)
[2017-06-12] MEDS: GABAPENTIN 300 MG CAP PO ×2 (16:15→20:19)
[2017-06-12] MEDS: ACETAMINOPHEN TAB 650MG DOSE (2X325MG) PO (18:47)
[2017-06-12] MEDS: diphenhydrAMINE INJ 50MG/ML VIAL (J1200) IV (19:34)
[2017-06-12] MEDS: traZODone 50 MG TAB PO (20:18)
[2017-06-12] MEDS: ADVAIR HFA 230/21MCG INHALER INH (20:26)
[2017-06-12] MEDS: traMADol 50 MG TAB PO (20:45)
[2017-06-12] MEDS: MORPHINE 2 MG/ML 1ML SYRINGE IV (21:03)
[2017-06-12] MEDS ORDERED: LORazepam 1 MG TAB PO (22:45)
[2017-06-12] MEDS: THIAMINE 100 MG TAB PO (23:48)
[2017-06-13] MEDS: ONDANSETRON 4MG/2ML VIAL (J2405) IV (01:21)
[2017-06-13] MEDS: MORPHINE 2 MG/ML 1ML SYRINGE IV (03:06)
[2017-06-13 04:26] LABS: MEAN CORPUSCULAR HEMOGLOBIN 31.8 pg (27.0-33.0); MEAN CORPUSCULAR HGB CONC 34.4 g/dl (32.0-36.5); MEAN CORPUSCULAR VOLUME 92.4 fl (80.0-96.0); PLATELET COUNT, AUTOMATED 109 10^3/uL (150-450); RED CELL DISTRIBUTION WIDTH 12.7 % (11.5-14.5); WHITE BLOOD COUNT 5.3 10^3/uL (4.0-10.0)
[2017-06-13 04:48] LABS: ALBUMIN 3.2 GM/DL (3.2-5.2); ALBUMIN/GLOBULIN RATIO 0.97 (1.00-1.93); ALKALINE PHOSPHATASE 66 U/L (45-117); ALT/SGPT 24 U/L (12-78); ANION GAP 5 MEQ/L (8-16); AST/SGOT 17 U/L (7-37); BILIRUBIN,TOTAL 0.4 MG/DL (0.2-1.0); BLOOD UREA NITROGEN 11 MG/DL (7-18); CARBON DIOXIDE LEVEL 30 MEQ/L (21-32); CHLORIDE LEVEL 103 MEQ/L (98-107); CREATININE FOR GFR 0.63 MG/DL (0.70-1.30); GLOMERULAR FILTRATION RATE > 60.0 (>56); GLUCOSE, FASTING 248 MG/DL (70-105); MAGNESIUM LEVEL 2.3 MG/DL (1.8-2.4); SODIUM LEVEL 138 MEQ/L (136-145); TOTAL PROTEIN 6.5 GM/DL (6.4-8.2)
[2017-06-13] MEDS: HEPARIN SOD (PORCINE) 5000 UNITS/ML VIAL SC ×2 (06:11→13:04)
[2017-06-13] MEDS: IPRATROPIUM 0.5MG/ALBUTEROL 2.5MG INH SOL UD 3ML (DUONEB)(J7620) NEB ×2 (08:00→13:25)
[2017-06-13] MEDS: HumaLOG INSULIN (NovoLOG) PER UNIT SC ×2 (08:10→13:05)
[2017-06-13] MEDS: SUCRALFATE 1 GM TAB PO ×2 (08:10→13:04)
[2017-06-13] MEDS: LEVEMIR (INSULIN DETEMIR) 1 UNITS/0.01ML SC (08:10)
[2017-06-13] MEDS: ATORVASTATIN 10 MG TAB PO (08:10)
[2017-06-13] MEDS: TAMSULOSIN 0.4 MG CAP PO (08:10)
[2017-06-13] MEDS: THIAMINE 100 MG TAB PO (08:10)
[2017-06-13] MEDS: FOLIC ACID 1 MG TAB PO (08:10)
[2017-06-13] MEDS: GABAPENTIN 300 MG CAP PO (08:11)
[2017-06-13] MEDS: MULTIVITAMINS/MINERALS THERAP 1 TAB PO (08:11)
[2017-06-13] MEDS: CitaloPRAM (CeleXA) 20 MG TAB PO (08:11)
[2017-06-13] MEDS: LISINOPRIL 5 MG TAB PO (08:11)
[2017-06-13] MEDS: ASPIRIN 81 MG ENTERIC TAB PO (08:11)
[2017-06-13] MEDS: LORazepam 2 MG/ML VIAL (J2060) IV (09:52)
== END 2017-06-13 15:00 | disposition home or self-care (01) | DRG 347 ==
LOC: M ED 09:18 → M ED INP 12:56 → M ICU 15:53
DX: M48.02 Spinal stenosis, cervical region (principal); I11.0 Hypertensive heart disease with heart failure; I50.32 Chronic diastolic (congestive) heart failure; E11.40 Type 2 diabetes mellitus with diabetic neuropathy, unspecified; J44.9 Chronic obstructive pulmonary disease, unspecified; E78.5 Hyperlipidemia, unspecified; R53.1 Weakness; R20.2 Paresthesia of skin; F41.9 Anxiety disorder, unspecified; F32.9 Major depressive disorder, single episode, unspecified; N40.0 Benign prostatic hyperplasia without lower urinary tract symptoms; Z86.73 Personal history of transient ischemic attack (TIA), and cerebral infarction without residual deficits; Z79.82 Long term (current) use of aspirin; Z79.4 Long term (current) use of insulin; Z79.899 Other long term (current) drug therapy; Z88.8 Allergy status to other drugs, medicaments and biological substances; Z91.048 Other nonmedicinal substance allergy status; Z87.891 Personal history of nicotine dependence; M54.12 Radiculopathy, cervical region

== ENCOUNTER → 2017-07-03 | Outpatient (CLI) | payer MEDICAID ==
[~2017-07-03] MED LIST changes: -/TAMS4CA PO; -ACET-700 PO; -ACET32TAB PO; -ACET50TA PO; -ADV250INH INH; -ADV500INH INH; -ADVI200T PO; -ALBU17IN2 INH; -ALBU2TA PO; -ANBEEL TOP; -ASPI1TAB PO; -ASPI325T PO; -ASPI325T24 PO; -ASPI81TA PO; -ASPI81TA85 PO; -ASPI81TAEC PO; -ATOR1TAB19 PO; -BACT800T5 PO; -BENCRE3 TOP; +BUPIVACAINE HCL 0.25% 10 ML VIAL As Ordered; +BUPIVACAINE HCL 0.25% 30 ML VIAL As Ordered; -CARA1TAB6 PO; -CELE20TA PO; -CELE50CA PO; -CITA20TA4 PO; -CLEO150C PO; -CLEO300C2 PO; -CYMB1CAP4 PO; -CYMB60CA3 PO; -DICL13PA TOP; -DOCU100C16 PO; -DOXY150C PO; -DULO1CAP3 PO; -EUCECRE2 EX; -FLOM5CAP PO; -GABA-282 PO; -HARVONI PO; -HUMA100I SC; -INSUDET SC; -INSUH10VL SC; -INSUHUMDS SC; -INSULADS SC; -INSULANT SC; -LANTINJ4 SC; -LEVO500T PO; -LIPI10TA PO; -LIPI20TA PO; -LISI10TA4 PO; -LISI5TAB PO; -LYRI225C PO; -LYRI75CA PO; -MECL-68 PO; -MECL1CHW2 PO; -MIRA3350 PO; -MSIR30TA PO; -MUPI2OI TOP; -NEUR800T PO; -NORCOTAB PO; -OMEP20CA3 PO; -ONDA4TAB6 PO; -OSEL75CA PO; -OXYC-141 PO; -OXYC20TA40 PO; -PATIENT COMMENT; -PERC5TAB12 PO; -PRIL20CA9 PO; -PROAAER10 IN; -PROAAER10 INH; -PROT1TAB2 PO; -PROTPAK PO; -PSEU60TA PO; -STOO100C PO; -SUCR1TAB56 PO; -SULF1TAB23 PO; -TAMS0.4C2 PO; -TIZA2TA PO; -TIZA4CAP3 PO; -TRAZ10TA PO; -TRAZ1TAB14 PO; -TRAZ25TA PO; -TRAZ50TA11 PO; -TRAZO50TA PO; +TRIAMCINOLONE ACETONIDE SUSP 40 MG/ML VIAL (J3301) As Ordered; -VITA-182 PO; -VITA100066 PO; -VOLT1GEL15 TD; -ZANA4TAB PO; -ZEST10TA4 PO; -ZOFR20TA PO; -ZOFR4TAB3 PO; +diazePAM 5 MG TAB As Ordered; +oxyCODONE 5MG TAB As Ordered; -prilosec PO
== END ==
LOC: M PAIN 09:15
DX: G89.29 Other chronic pain (principal); M54.5 Low back pain; M79.1 Myalgia; J44.9 Chronic obstructive pulmonary disease, unspecified; E11.9 Type 2 diabetes mellitus without complications; F43.23 Adjustment disorder with mixed anxiety and depressed mood; F10.10 Alcohol abuse, uncomplicated; Z79.4 Long term (current) use of insulin; Z79.82 Long term (current) use of aspirin; Z79.899 Other long term (current) drug therapy; Z88.8 Allergy status to other drugs, medicaments and biological substances; Z91.048 Other nonmedicinal substance allergy status; Z86.73 Personal history of transient ischemic attack (TIA), and cerebral infarction without residual deficits; Z87.891 Personal history of nicotine dependence
CPT/HCPCS: J3301

== ENCOUNTER → 2017-07-20 | Outpatient (CLI) | payer MEDICAID ==
[2017-07-20 11:40] LABS: CREATININE FOR GFR 0.85 MG/DL (0.70-1.30); GLOMERULAR FILTRATION RATE > 60.0 (>56)
[2017-07-20 11:40] LABS: BLOOD UREA NITROGEN 12 MG/DL (7-18)
== END ==
LOC: M LAB 10:38
DX: K31.84 Gastroparesis (principal)
CPT/HCPCS: 82565

== ENCOUNTER → 2017-07-27 | Outpatient (CLI) | payer MEDICAID ==
[~2017-07-27] MED LIST changes: -BUPIVACAINE HCL 0.25% 10 ML VIAL As Ordered; -BUPIVACAINE HCL 0.25% 30 ML VIAL As Ordered; +ISOVUE-370 76% 100ML VIAL (Q9967) As Ordered; -TRIAMCINOLONE ACETONIDE SUSP 40 MG/ML VIAL (J3301) As Ordered; -diazePAM 5 MG TAB As Ordered; -oxyCODONE 5MG TAB As Ordered
== END ==
LOC: M RAD 13:50
DX: K76.9 Liver disease, unspecified (principal); N28.1 Cyst of kidney, acquired; R10.9 Unspecified abdominal pain
CPT/HCPCS: Q9967

== ENCOUNTER → 2017-07-31 | Outpatient (CLI) | payer MEDICAID | LOC: M PAIN 11:00 | DX: M47.816 Spondylosis without myelopathy or radiculopathy, lumbar region (principal); M47.817 Spondylosis without myelopathy or radiculopathy, lumbosacral region; G89.29 Other chronic pain; J44.9 Chronic obstructive pulmonary disease, unspecified; E11.9 Type 2 diabetes mellitus without complications; F43.23 Adjustment disorder with mixed anxiety and depressed mood; F10.10 Alcohol abuse, uncomplicated; Z79.4 Long term (current) use of insulin; Z79.82 Long term (current) use of aspirin; Z79.899 Other long term (current) drug therapy; Z88.8 Allergy status to other drugs, medicaments and biological substances; Z91.048 Other nonmedicinal substance allergy status; Z86.73 Personal history of transient ischemic attack (TIA), and cerebral infarction without residual deficits; Z91.5 Personal history of self-harm; Z87.891 Personal history of nicotine dependence | CPT/HCPCS: G0463 ==

== ENCOUNTER 2017-08-06 09:32 | Day surgery (SDC) | payer MEDICAID ==
[~2017-08-06 09:32] MED LIST changes: -ISOVUE-370 76% 100ML VIAL (Q9967) As Ordered; +LIDOCAINE 2% MDV 20 ML VIAL As Ordered; +PROPOFOL 200 MG/20 ML VIAL As Ordered
[2017-08-06] MEDS: NS 1,000 ML IV (10:00)
[2017-08-06] MEDS: D5W/0.45% SODIUM CHLORIDE 1,000 ML IV (10:30)
[2017-08-06 10:38] LABS: BEDSIDE GLUCOSE 122 MG/DL (70-105)
[2017-08-06] MEDS ORDERED: PROPOFOL 200 MG/20 ML VIAL As Ordered (11:56)
== END 2017-08-06 12:54 | disposition home or self-care (01) ==
LOC: M OPP 09:32
DX: K57.30 Diverticulosis of large intestine without perforation or abscess without bleeding (principal); K59.00 Constipation, unspecified; R62.7 Adult failure to thrive; R63.4 Abnormal weight loss; K29.70 Gastritis, unspecified, without bleeding; R10.13 Epigastric pain; K31.84 Gastroparesis; E10.9 Type 1 diabetes mellitus without complications; N40.0 Benign prostatic hyperplasia without lower urinary tract symptoms; K74.60 Unspecified cirrhosis of liver; R51 Headache; I10 Essential (primary) hypertension; K21.9 Gastro-esophageal reflux disease without esophagitis; J44.9 Chronic obstructive pulmonary disease, unspecified; I48.91 Unspecified atrial fibrillation; F41.9 Anxiety disorder, unspecified; F32.9 Major depressive disorder, single episode, unspecified; Z79.4 Long term (current) use of insulin; Z79.82 Long term (current) use of aspirin; Z79.891 Long term (current) use of opiate analgesic; Z79.899 Other long term (current) drug therapy; Z88.8 Allergy status to other drugs, medicaments and biological substances; Z91.048 Other nonmedicinal substance allergy status; Z86.19 Personal history of other infectious and parasitic diseases
CPT/HCPCS: 45380

== ENCOUNTER → 2017-08-31 | Outpatient (CLI) | payer MEDICAID ==
[~2017-08-31] MED LIST changes: -LIDOCAINE 2% MDV 20 ML VIAL As Ordered; +PROHANCE 279.3MG/ML 15ML VIAL (A9576) As Ordered; -PROPOFOL 200 MG/20 ML VIAL As Ordered
== END ==
LOC: M RAD 12:16
DX: R93.3 Abnormal findings on diagnostic imaging of other parts of digestive tract (principal); K74.69 Other cirrhosis of liver; K76.0 Fatty (change of) liver, not elsewhere classified
CPT/HCPCS: A9576

== ENCOUNTER → 2017-09-09 | Outpatient (CLI) | payer MEDICAID ==
[~2017-09-09] MED LIST changes: +BUPIVACAINE HCL 0.25% 30 ML VIAL As Ordered; +ISOVUE-M 300 61% 15ML VIAL (Q9967) As Ordered; +LIDOCAINE 1% SDV INJ 30 ML VIAL As Ordered; -PROHANCE 279.3MG/ML 15ML VIAL (A9576) As Ordered
[2017-09-09 10:34] LABS: BEDSIDE GLUCOSE 111 MG/DL (70-105)
== END ==
LOC: M PAIN 10:15
DX: G89.29 Other chronic pain (principal); M47.816 Spondylosis without myelopathy or radiculopathy, lumbar region; M47.817 Spondylosis without myelopathy or radiculopathy, lumbosacral region; J44.9 Chronic obstructive pulmonary disease, unspecified; E11.9 Type 2 diabetes mellitus without complications; M24.549 Contracture, unspecified hand; M24.576 Contracture, unspecified foot; F32.9 Major depressive disorder, single episode, unspecified; F10.10 Alcohol abuse, uncomplicated; Z79.4 Long term (current) use of insulin; Z79.82 Long term (current) use of aspirin; Z79.899 Other long term (current) drug therapy; Z88.8 Allergy status to other drugs, medicaments and biological substances; Z91.09 Other allergy status, other than to drugs and biological substances; Z91.5 Personal history of self-harm; Z86.73 Personal history of transient ischemic attack (TIA), and cerebral infarction without residual deficits; Z86.19 Personal history of other infectious and parasitic diseases; Z87.891 Personal history of nicotine dependence
CPT/HCPCS: Q9967

== ENCOUNTER → 2017-10-20 | Outpatient (CLI) | payer MEDICAID | LOC: M PAIN 15:45 | DX: M47.816 Spondylosis without myelopathy or radiculopathy, lumbar region (principal); M47.817 Spondylosis without myelopathy or radiculopathy, lumbosacral region; G89.29 Other chronic pain; J44.9 Chronic obstructive pulmonary disease, unspecified; E11.9 Type 2 diabetes mellitus without complications; F32.9 Major depressive disorder, single episode, unspecified; F41.9 Anxiety disorder, unspecified; F10.10 Alcohol abuse, uncomplicated; Z79.4 Long term (current) use of insulin; Z79.82 Long term (current) use of aspirin; Z79.899 Other long term (current) drug therapy; Z88.8 Allergy status to other drugs, medicaments and biological substances; Z91.09 Other allergy status, other than to drugs and biological substances; Z91.5 Personal history of self-harm; Z86.19 Personal history of other infectious and parasitic diseases; Z86.79 Personal history of other diseases of the circulatory system; Z87.891 Personal history of nicotine dependence | CPT/HCPCS: G0463 ==

== ENCOUNTER → 2017-10-21 | Outpatient (CLI) | payer MEDICAID | LOC: M PAIN 11:00 | DX: G89.29 Other chronic pain (principal); M47.816 Spondylosis without myelopathy or radiculopathy, lumbar region; M47.817 Spondylosis without myelopathy or radiculopathy, lumbosacral region; F32.9 Major depressive disorder, single episode, unspecified; F10.10 Alcohol abuse, uncomplicated; J44.9 Chronic obstructive pulmonary disease, unspecified; E11.9 Type 2 diabetes mellitus without complications; M72.0 Palmar fascial fibromatosis [Dupuytren]; B18.2 Chronic viral hepatitis C; Z86.14 Personal history of Methicillin resistant Staphylococcus aureus infection; Z86.73 Personal history of transient ischemic attack (TIA), and cerebral infarction without residual deficits; Z87.891 Personal history of nicotine dependence; Z79.4 Long term (current) use of insulin; Z79.82 Long term (current) use of aspirin; Z79.899 Other long term (current) drug therapy; Z88.8 Allergy status to other drugs, medicaments and biological substances; Z91.048 Other nonmedicinal substance allergy status | CPT/HCPCS: Q9967 ==

== ENCOUNTER → 2017-10-22 | Outpatient (CLI) | payer MEDICAID | LOC: M RAD 09:09 | DX: I95.1 Orthostatic hypotension (principal) | CPT/HCPCS: 71046 ==

== ENCOUNTER 2017-10-26 01:11 | Observation (INO) | payer MEDICAID ==
[2017-10-26] MEDS: NS 1,000 ML IV ×3 (01:30→03:40)
[2017-10-26 01:45] LABS: BASO % 0.5 % (0.0-1.0); EOS # 0.1 10^3/uL (0.0-0.50); EOS % 1.6 % (0.0-3.0); HEMATOCRIT 38.8 % (42.0-52.0); HEMOGLOBIN 13.4 g/dl (13.5-17.5); IMMATURE GRANULOCYTE % 0.3 % (0-3.0); LYMPH # 1.6 10^3/uL (1.5-4.5); LYMPH % 28.4 % (24.0-44.0); MEAN CORPUSCULAR HEMOGLOBIN 31.7 pg (27.0-33.0); MEAN CORPUSCULAR HGB CONC 34.5 g/dl (32.0-36.5); MEAN CORPUSCULAR VOLUME 91.7 fl (80.0-96.0); MONO # 0.7 10^3/uL (0.0-0.8); MONO % 12.2 % (0.0-5.0); NEUTROPHILS # 3.3 10^3/uL (1.8-7.7); PLATELET COUNT, AUTOMATED 116 10^3/uL (150-450); RED BLOOD COUNT 4.23 10^6/uL (4.30-6.10); RED CELL DISTRIBUTION WIDTH 11.9 % (11.5-14.5); WHITE BLOOD COUNT 5.7 10^3/uL (4.0-10.0)
[2017-10-26] MEDS: diphenhydrAMINE INJ 50MG/ML VIAL (J1200) IV (01:48)
[2017-10-26] MEDS: HALOPERIDOL 5 MG/ML VIAL (J1630) IV (01:48)
[2017-10-26 01:59] LABS: ALBUMIN 3.3 GM/DL (3.2-5.2); ALBUMIN/GLOBULIN RATIO 1.27 (1.00-1.93); ALKALINE PHOSPHATASE 65 U/L (45-117); ANION GAP 7 MEQ/L (8-16); AST/SGOT 12 U/L (7-37); BILIRUBIN,DIRECT 0.2 MG/DL (0.0-0.2); BILIRUBIN,TOTAL 0.5 MG/DL (0.2-1.0); BLOOD UREA NITROGEN 7 MG/DL (7-18); CALCIUM LEVEL 8.3 MG/DL (8.5-10.1); CARBON DIOXIDE LEVEL 28 MEQ/L (21-32); CHLORIDE LEVEL 101 MEQ/L (98-107); CPK CREATINE PHOSPHOKINASE 28 U/L (39-308); CREATININE FOR GFR 1.05 MG/DL (0.70-1.30); GLOMERULAR FILTRATION RATE > 60.0 (>56); LIPASE 47 U/L (73-393); POTASSIUM SERUM 4.4 MEQ/L (3.5-5.1); SODIUM LEVEL 136 MEQ/L (136-145); TOTAL PROTEIN 5.9 GM/DL (6.4-8.2); TROPONIN I < 0.02 NG/ML (< 0.10)
[2017-10-26 02:02] LABS: LACTIC ACID SEPSIS PROTOCOL 2.1 MMOL/L (0.4-2.0)
[2017-10-26 02:02] LABS: ALT/SGPT 18 U/L (12-78); CK-MB VALUE MASS 1.1 NG/ML (<3.6); MB/CK RELATIVE INDEX 3.92 (< OR =4)
[2017-10-26 02:03] LABS: GLUCOSE, FASTING 420 MG/DL (70-100)
[2017-10-26] MEDS: HumuLIN R (REGULAR) INSULIN (NovoLIN R) **100U/ML** PER UNIT IV (02:30)
[2017-10-26 03:10] LABS: BEDSIDE GLUCOSE 261 MG/DL (70-105)
[2017-10-26] MEDS ORDERED: GLUCOSE 4 GM CHEW TABLET PO (03:45)
[2017-10-26] MEDS ORDERED: GLUCAGON FOR INJ 1 MG VIAL (J1610) SC (03:45)
[2017-10-26] MEDS ORDERED: ALBUTEROL SULFATE 2.5 MG/0.5 ML INH NEB SOLN NEB (03:45)
[2017-10-26] MEDS ORDERED: DEXTROSE 50% 50 ML SYRINGE IV (03:45)
[2017-10-26 05:52] LABS: BEDSIDE GLUCOSE 133 MG/DL (70-105)
[2017-10-26 06:14] LABS: BASO % 0.4 % (0.0-1.0); EOS # 0.1 10^3/uL (0.0-0.50); EOS % 2.1 % (0.0-3.0); HEMATOCRIT 37.1 % (42.0-52.0); IMMATURE GRANULOCYTE % 0.2 % (0-3.0); LYMPH # 1.6 10^3/uL (1.5-4.5); LYMPH % 33.6 % (24.0-44.0); MEAN CORPUSCULAR HEMOGLOBIN 31.8 pg (27.0-33.0); MEAN CORPUSCULAR VOLUME 90.7 fl (80.0-96.0); MONO # 0.6 10^3/uL (0.0-0.8); MONO % 12.9 % (0.0-5.0); NEUTROPHILS # 2.5 10^3/uL (1.8-7.7); NEUTROPHILS % 50.8 % (36.0-66.0); PLATELET COUNT, AUTOMATED 103 10^3/uL (150-450); RED BLOOD COUNT 4.09 10^6/uL (4.30-6.10); RED CELL DISTRIBUTION WIDTH 11.8 % (11.5-14.5); WHITE BLOOD COUNT 4.8 10^3/uL (4.0-10.0)
[2017-10-26 06:21] LABS: ESTIMATED AVERAGE GLUCOSE 209 MG/DL (60-110); HEMOGLOBIN A1c 8.9 %
[2017-10-26 06:36] LABS: ALBUMIN 2.9 GM/DL (3.2-5.2); ALBUMIN/GLOBULIN RATIO 1.16 (1.00-1.93); ALKALINE PHOSPHATASE 58 U/L (45-117); ALT/SGPT 14 U/L (12-78); ANION GAP 6 MEQ/L (8-16); AST/SGOT 12 U/L (7-37); BILIRUBIN,TOTAL 0.3 MG/DL (0.2-1.0); BLOOD UREA NITROGEN 6 MG/DL (7-18); CALCIUM LEVEL 7.9 MG/DL (8.5-10.1); CARBON DIOXIDE LEVEL 26 MEQ/L (21-32); CHLORIDE LEVEL 111 MEQ/L (98-107); CREATININE FOR GFR 0.55 MG/DL (0.70-1.30); GLOMERULAR FILTRATION RATE > 60.0 (>56); GLUCOSE, FASTING 125 MG/DL (70-100); MAGNESIUM LEVEL 2.2 MG/DL (1.8-2.4); POTASSIUM SERUM 3.7 MEQ/L (3.5-5.1); SODIUM LEVEL 143 MEQ/L (136-145); TOTAL PROTEIN 5.4 GM/DL (6.4-8.2)
[2017-10-26 06:38] LABS: CK-MB VALUE MASS < 1.0 NG/ML (<3.6); CPK CREATINE PHOSPHOKINASE 25 U/L (39-308); TROPONIN I < 0.02 NG/ML (< 0.10)
[2017-10-26 07:33] LABS: BEDSIDE GLUCOSE 125 MG/DL (70-105)
[2017-10-26] MEDS: ADVAIR HFA 230/21MCG INHALER INH ×2 (07:46→21:06)
[2017-10-26] MEDS: ASPIRIN 81 MG ENTERIC TAB PO (08:27)
[2017-10-26] MEDS: METOCLOPRAMIDE 10 MG TAB PO ×4 (08:27→20:36)
[2017-10-26] MEDS: CitaloPRAM (CeleXA) 20 MG TAB PO (08:27)
[2017-10-26] MEDS: ATORVASTATIN 10 MG TAB PO (08:27)
[2017-10-26] MEDS: TAMSULOSIN 0.4 MG CAP PO (08:27)
[2017-10-26] MEDS: HumaLOG INSULIN (NovoLOG) PER UNIT SC ×4 (08:27→20:36)
[2017-10-26] MEDS: GABAPENTIN 300 MG CAP PO ×3 (08:27→20:36)
[2017-10-26] MEDS: LEVEMIR (INSULIN DETEMIR) 1 UNITS/0.01ML SC ×2 (08:27→20:36)
[2017-10-26] MEDS: ENOXAPARIN 40 MG/0.4 ML SYRINGE (J1650) SC (08:27)
[2017-10-26 12:56] LABS: BEDSIDE GLUCOSE 197 MG/DL (70-105)
[2017-10-26] MEDS: KCL 20MEQ IN 0.45NS 1000ML 1,000 ML IV ×2 (14:09→19:15)
[2017-10-26] MEDS: FLUDROCORTISONE ACETATE 0.1 MG TAB PO (14:10)
[2017-10-26 14:28] LABS: CK-MB VALUE MASS 1.1 NG/ML (<3.6); CPK CREATINE PHOSPHOKINASE 31 U/L (39-308); MB/CK RELATIVE INDEX 3.54 (< OR =4); TROPONIN I < 0.02 NG/ML (< 0.10)
[2017-10-26] MEDS: ACETAMINOPHEN TAB 650MG DOSE (2X325MG) PO (15:26)
[2017-10-26 17:21] LABS: BEDSIDE GLUCOSE 250 MG/DL (70-105)
[2017-10-26 20:08] LABS: BEDSIDE GLUCOSE 235 MG/DL (70-105)
[2017-10-26] MEDS: traZODone 50 MG TAB PO (20:36)
[2017-10-27 05:24] LABS: BASO % 0.4 % (0.0-1.0); EOS # 0.1 10^3/uL (0.0-0.50); EOS % 1.8 % (0.0-3.0); HEMATOCRIT 37.8 % (42.0-52.0); HEMOGLOBIN 13.2 g/dl (13.5-17.5); IMMATURE GRANULOCYTE % 0.2 % (0-3.0); LYMPH # 1.3 10^3/uL (1.5-4.5); LYMPH % 25.4 % (24.0-44.0); MEAN CORPUSCULAR HEMOGLOBIN 31.6 pg (27.0-33.0); MEAN CORPUSCULAR HGB CONC 34.9 g/dl (32.0-36.5); MEAN CORPUSCULAR VOLUME 90.4 fl (80.0-96.0); MONO # 0.6 10^3/uL (0.0-0.8); MONO % 11.8 % (0.0-5.0); NEUTROPHILS % 60.4 % (36.0-66.0); PLATELET COUNT, AUTOMATED 109 10^3/uL (150-450); RED BLOOD COUNT 4.18 10^6/uL (4.30-6.10); RED CELL DISTRIBUTION WIDTH 11.9 % (11.5-14.5); WHITE BLOOD COUNT 4.9 10^3/uL (4.0-10.0)
[2017-10-27 05:43] LABS: ALBUMIN 3.3 GM/DL (3.2-5.2); ALBUMIN/GLOBULIN RATIO 1.14 (1.00-1.93); ALKALINE PHOSPHATASE 61 U/L (45-117); ALT/SGPT 16 U/L (12-78); ANION GAP 4 MEQ/L (8-16); AST/SGOT 13 U/L (7-37); BILIRUBIN,TOTAL 0.4 MG/DL (0.2-1.0); BLOOD UREA NITROGEN 5 MG/DL (7-18); CALCIUM LEVEL 8.2 MG/DL (8.5-10.1); CARBON DIOXIDE LEVEL 28 MEQ/L (21-32); CHLORIDE LEVEL 107 MEQ/L (98-107); CREATININE FOR GFR 0.52 MG/DL (0.70-1.30); GLOMERULAR FILTRATION RATE > 60.0 (>56); GLUCOSE, FASTING 175 MG/DL (70-100); MAGNESIUM LEVEL 2.1 MG/DL (1.8-2.4); POTASSIUM SERUM 3.5 MEQ/L (3.5-5.1); SODIUM LEVEL 139 MEQ/L (136-145); TOTAL PROTEIN 6.2 GM/DL (6.4-8.2)
[2017-10-27] MEDS: KCL 20MEQ IN 0.45NS 1000ML 1,000 ML IV (06:25)
[2017-10-27] MEDS: ADVAIR HFA 230/21MCG INHALER INH (07:20)
[2017-10-27] MEDS: HumaLOG INSULIN (NovoLOG) PER UNIT SC (08:34)
[2017-10-27] MEDS: ATORVASTATIN 10 MG TAB PO (08:51)
[2017-10-27] MEDS: LEVEMIR (INSULIN DETEMIR) 1 UNITS/0.01ML SC (08:51)
[2017-10-27] MEDS: ASPIRIN 81 MG ENTERIC TAB PO (08:51)
[2017-10-27] MEDS: ENOXAPARIN 40 MG/0.4 ML SYRINGE (J1650) SC (08:51)
[2017-10-27] MEDS: GABAPENTIN 300 MG CAP PO (08:52)
[2017-10-27] MEDS: CitaloPRAM (CeleXA) 20 MG TAB PO (08:52)
[2017-10-27] MEDS: TAMSULOSIN 0.4 MG CAP PO (08:52)
[2017-10-27] MEDS: METOCLOPRAMIDE 10 MG TAB PO (08:52)
[2017-10-27] MEDS: FLUDROCORTISONE ACETATE 0.1 MG TAB PO (08:52)
== END 2017-10-27 11:05 | disposition home or self-care (01) ==
LOC: M ED 01:11 → M ED INP 01:12 → M PCU 12:12
DX: I95.1 Orthostatic hypotension (principal); N40.0 Benign prostatic hyperplasia without lower urinary tract symptoms; E11.40 Type 2 diabetes mellitus with diabetic neuropathy, unspecified; F32.9 Major depressive disorder, single episode, unspecified; Z91.5 Personal history of self-harm; E87.2 Acidosis; R79.89 Other specified abnormal findings of blood chemistry; R10.9 Unspecified abdominal pain; R63.4 Abnormal weight loss; Z86.19 Personal history of other infectious and parasitic diseases; J44.9 Chronic obstructive pulmonary disease, unspecified; Z86.73 Personal history of transient ischemic attack (TIA), and cerebral infarction without residual deficits; E55.9 Vitamin D deficiency, unspecified; K21.9 Gastro-esophageal reflux disease without esophagitis; E78.5 Hyperlipidemia, unspecified; Z79.899 Other long term (current) drug therapy; Z79.82 Long term (current) use of aspirin; Z79.4 Long term (current) use of insulin; Z88.8 Allergy status to other drugs, medicaments and biological substances; Z91.048 Other nonmedicinal substance allergy status; Z87.891 Personal history of nicotine dependence
CPT/HCPCS: J1200

== ENCOUNTER → 2017-11-18 | Outpatient (CLI) | payer MEDICAID ==
[~2017-11-18] MED LIST changes: +BUPIVACAINE HCL 0.25% 30 ML VIAL; -BUPIVACAINE HCL 0.25% 30 ML VIAL As Ordered; -ISOVUE-M 300 61% 15ML VIAL (Q9967) As Ordered; +LIDOCAINE 1% MDV 20ML VIAL; -LIDOCAINE 1% SDV INJ 30 ML VIAL As Ordered; +TRIAMCINOLONE ACETONIDE SUSP 40 MG/ML VIAL (J3301)
== END ==
LOC: M PAIN 13:30
DX: G89.29 Other chronic pain (principal); M47.816 Spondylosis without myelopathy or radiculopathy, lumbar region; M47.817 Spondylosis without myelopathy or radiculopathy, lumbosacral region; J44.9 Chronic obstructive pulmonary disease, unspecified; E11.9 Type 2 diabetes mellitus without complications; F32.9 Major depressive disorder, single episode, unspecified; F10.10 Alcohol abuse, uncomplicated; I10 Essential (primary) hypertension; I95.1 Orthostatic hypotension; Z79.4 Long term (current) use of insulin; Z79.82 Long term (current) use of aspirin; Z79.899 Other long term (current) drug therapy; Z88.8 Allergy status to other drugs, medicaments and biological substances; Z91.09 Other allergy status, other than to drugs and biological substances; Z86.19 Personal history of other infectious and parasitic diseases; Z91.5 Personal history of self-harm; Z87.891 Personal history of nicotine dependence
CPT/HCPCS: J3301

== ENCOUNTER → 2017-12-25 | Outpatient (CLI) | payer MEDICAID | LOC: M PAIN 11:45 | DX: G89.29 Other chronic pain (principal); M47.816 Spondylosis without myelopathy or radiculopathy, lumbar region; M47.817 Spondylosis without myelopathy or radiculopathy, lumbosacral region; J44.9 Chronic obstructive pulmonary disease, unspecified; E11.9 Type 2 diabetes mellitus without complications; B18.2 Chronic viral hepatitis C; M72.0 Palmar fascial fibromatosis [Dupuytren]; Z86.73 Personal history of transient ischemic attack (TIA), and cerebral infarction without residual deficits; F32.9 Major depressive disorder, single episode, unspecified; F10.10 Alcohol abuse, uncomplicated; Z87.891 Personal history of nicotine dependence; Z88.8 Allergy status to other drugs, medicaments and biological substances; Z91.048 Other nonmedicinal substance allergy status; Z79.4 Long term (current) use of insulin; Z79.82 Long term (current) use of aspirin; Z79.899 Other long term (current) drug therapy | CPT/HCPCS: G0463 ==

== ENCOUNTER 2018-01-20 21:17 | Emergency (ER) | payer MEDICAID, OTHER ==
[2018-01-20] MEDS: MORPHINE 4 MG/ML 1ML VIAL/SYRINGE (J2270) IV (22:42)
[2018-01-20] MEDS: ONDANSETRON 4MG/2ML VIAL (J2405) IV (22:42)
[2018-01-20 23:16] LABS: ETHYL ALCOHOL (ETHANOL) 0.211 % (0.000-0.010)
[2018-01-21] MEDS: MORPHINE 4 MG/ML 1ML VIAL/SYRINGE (J2270) IV (00:11)
[2018-01-21] MEDS: NORCO 5/325MG TABLET (BULK FOR ED) PO (00:37)
== END 2018-01-21 00:44 | disposition home or self-care (01) ==
LOC: M ED 01-21 00:44
DX: Z04.1 Encounter for examination and observation following transport accident (principal); T14.8XXA Other injury of unspecified body region, initial encounter; V23.5XXA Motorcycle passenger injured in collision with car, pick-up truck or van in traffic accident, initial encounter; Y92.410 Unspecified street and highway as the place of occurrence of the external cause; M50.21 Other cervical disc displacement, high cervical region; M50.221 Other cervical disc displacement at C4-C5 level; M50.222 Other cervical disc displacement at C5-C6 level; M50.223 Other cervical disc displacement at C6-C7 level; Z88.8 Allergy status to other drugs, medicaments and biological substances; Z91.048 Other nonmedicinal substance allergy status; Z79.82 Long term (current) use of aspirin; Z79.4 Long term (current) use of insulin; Z79.899 Other long term (current) drug therapy
CPT/HCPCS: J2270

== ENCOUNTER → 2018-02-19 | Outpatient (CLI) | payer MEDICAID | LOC: M PAIN 12:30 | DX: M79.1 Myalgia (principal); M54.2 Cervicalgia; M54.5 Low back pain; G89.29 Other chronic pain; E11.9 Type 2 diabetes mellitus without complications; I10 Essential (primary) hypertension; I95.1 Orthostatic hypotension; J44.9 Chronic obstructive pulmonary disease, unspecified; F43.23 Adjustment disorder with mixed anxiety and depressed mood; F10.10 Alcohol abuse, uncomplicated; Z79.4 Long term (current) use of insulin; Z79.82 Long term (current) use of aspirin; Z79.899 Other long term (current) drug therapy; Z88.8 Allergy status to other drugs, medicaments and biological substances; Z91.09 Other allergy status, other than to drugs and biological substances; Z86.19 Personal history of other infectious and parasitic diseases; Z91.5 Personal history of self-harm; Z87.891 Personal history of nicotine dependence; Z86.73 Personal history of transient ischemic attack (TIA), and cerebral infarction without residual deficits | CPT/HCPCS: G0463 ==

== ENCOUNTER → 2018-03-12 | Outpatient (CLI) | payer MEDICAID | LOC: M RAD 08:17 | DX: M54.2 Cervicalgia (principal) | CPT/HCPCS: 72040 ==

== ENCOUNTER → 2018-03-12 | Outpatient (CLI) | payer MEDICAID ==
[2018-03-12 09:51] LABS: CHOLESTEROL LEVEL 134 MG/DL (<200); CHOLESTEROL RISK RATIO 2.627 (<5); HDL CHOLESTEROL 51 MG/DL (>40); LDL CHOLESTEROL 60 MG/DL (<100); NON-HDL-C 83 MG/DL; TRIGLYCERIDES LEVEL 117 MG/DL (<150)
[2018-03-12 09:59] LABS: CREATININE, URINE 49.4 MG/DL; MALB URINE SIEMENS 36.7 MG/L
[2018-03-12 10:02] LABS: MAU/CREAT RATIO 74.3 MCG/MG (0.0-30.0)
[2018-03-12 10:12] LABS: ESTIMATED AVERAGE GLUCOSE 186 MG/DL (60-110); HEMOGLOBIN A1c 8.1 %
== END ==
LOC: M LAB 08:12
DX: E11.69 Type 2 diabetes mellitus with other specified complication (principal); Z13.220 Encounter for screening for lipoid disorders
CPT/HCPCS: 83036

== ENCOUNTER → 2018-03-29 | Outpatient (CLI) | payer MEDICAID | LOC: M PAIN 15:00 | DX: M50.10 Cervical disc disorder with radiculopathy, unspecified cervical region (principal); G89.29 Other chronic pain; J44.9 Chronic obstructive pulmonary disease, unspecified; E11.9 Type 2 diabetes mellitus without complications; F32.9 Major depressive disorder, single episode, unspecified; F43.20 Adjustment disorder, unspecified; F10.10 Alcohol abuse, uncomplicated; I95.1 Orthostatic hypotension; Z79.4 Long term (current) use of insulin; Z79.82 Long term (current) use of aspirin; Z79.899 Other long term (current) drug therapy; Z88.8 Allergy status to other drugs, medicaments and biological substances; Z91.09 Other allergy status, other than to drugs and biological substances; Z87.891 Personal history of nicotine dependence; Z86.79 Personal history of other diseases of the circulatory system; Z86.19 Personal history of other infectious and parasitic diseases | CPT/HCPCS: G0463 ==

== ENCOUNTER 2018-04-01 19:23 | Emergency (ER) | payer MEDICAID ==
[2018-04-01] MEDS: NORCO 5/325MG TABLET (BULK FOR ED) PO (19:58)
[2018-04-01] MEDS: KETOROLAC 60 MG/2 ML VIAL (J1885) IM (19:58)
== END 2018-04-01 20:15 | disposition home or self-care (01) ==
LOC: M ED 19:23
DX: M54.12 Radiculopathy, cervical region (principal); M51.9 Unspecified thoracic, thoracolumbar and lumbosacral intervertebral disc disorder; M47.819 Spondylosis without myelopathy or radiculopathy, site unspecified; G89.29 Other chronic pain; E11.9 Type 2 diabetes mellitus without complications; I50.9 Heart failure, unspecified; I11.0 Hypertensive heart disease with heart failure; K21.9 Gastro-esophageal reflux disease without esophagitis; E78.70 Disorder of bile acid and cholesterol metabolism, unspecified; Z88.8 Allergy status to other drugs, medicaments and biological substances; Z91.048 Other nonmedicinal substance allergy status; Z79.82 Long term (current) use of aspirin; Z79.4 Long term (current) use of insulin; Z79.899 Other long term (current) drug therapy
CPT/HCPCS: J1885

== ENCOUNTER → 2018-04-28 | Outpatient (CLI) | payer MEDICAID ==
[~2018-04-28] MED LIST changes: +BUPIVACAINE HCL 0.25% 10 ML VIAL As Ordered; -BUPIVACAINE HCL 0.25% 30 ML VIAL; +BUPIVACAINE HCL 0.25% 30 ML VIAL As Ordered; -LIDOCAINE 1% MDV 20ML VIAL; -TRIAMCINOLONE ACETONIDE SUSP 40 MG/ML VIAL (J3301); +TRIAMCINOLONE ACETONIDE SUSP 40 MG/ML VIAL (J3301) As Ordered; +diazePAM 5 MG TAB As Ordered; +oxyCODONE 5MG TAB As Ordered
== END ==
LOC: M PAIN 11:45
DX: G89.29 Other chronic pain (principal); M79.18 Myalgia, other site; M54.2 Cervicalgia; J44.9 Chronic obstructive pulmonary disease, unspecified; E11.9 Type 2 diabetes mellitus without complications; F32.9 Major depressive disorder, single episode, unspecified; F10.10 Alcohol abuse, uncomplicated; I10 Essential (primary) hypertension; Z79.4 Long term (current) use of insulin; Z79.82 Long term (current) use of aspirin; Z79.899 Other long term (current) drug therapy; Z88.8 Allergy status to other drugs, medicaments and biological substances; Z91.09 Other allergy status, other than to drugs and biological substances; Z91.5 Personal history of self-harm; Z87.891 Personal history of nicotine dependence; Z86.19 Personal history of other infectious and parasitic diseases; Z86.59 Personal history of other mental and behavioral disorders
CPT/HCPCS: J3301

== ENCOUNTER → 2018-07-15 | Outpatient (CLI) | payer MEDICAID ==
[~2018-07-15] MED LIST changes: +/TAMS4CA PO; +ACET-700 PO; +ACET32TAB PO; +ACET50TA PO; +ADV250INH INH; +ADV500INH INH; +ADVI200T PO; +ALBU17IN2 INH; +ALBU2TA PO; +ANBEEL TOP; +ASPI1TAB PO; +ASPI325T PO; +ASPI325T25 PO; +ASPI81TA PO; +ASPI81TA85 PO; +ASPI81TAEC PO; +ATOR1TAB19 PO; +BACL10TA2 PO; +BACT800T5 PO; +BENG1CRE3 TOP; -BUPIVACAINE HCL 0.25% 10 ML VIAL As Ordered; -BUPIVACAINE HCL 0.25% 30 ML VIAL As Ordered; +CARA1TAB6 PO; +CELE20TA PO; +CELE50CA PO; +CITA20TA4 PO; +CLEO150C PO; +CLEO300C2 PO; +CYMB1CAP4 PO; +CYMB60CA3 PO; +DICL13PA TOP; +DOCU100C16 PO; +DOXY150C PO; +DULO1CAP3 PO; +EUCECRE2 EX; +FLOM0.4C39 PO; +GABA-843 PO; +HARVONI PO; +HUMA100I SC; +IBUP1TAB7 PO; +INSUDET SC; +INSUH10VL SC; +INSUHUMDS SC; +INSULADS SC; +INSULANT SC; +KETO10TAB PO; +LANTINJ4 SC; +LEVO500T PO; +LIPI10TA PO; +LIPI20TA PO; +LISI-542 PO; +LISI10TA4 PO; +LISI5TAB PO; +LYRI225C PO; +LYRI75CA PO; +MECL-68 PO; +MECL1CHW2 PO; +METO10TA2 PO; +MIRA3350 PO; +MSIR30TA PO; +MUPI2OI TOP; +NEUR800T PO; +NORCOTAB PO; +OMEP20CA3 PO; +ONDA4TAB6 PO; +OSEL75CA PO; +OXYC-141 PO; +OXYC20TA40 PO; +PATIENT COMMENT; +PERC5TAB12 PO; +PRIL20CA9 PO; +PROAAER10 IN; +PROAAER10 INH; +PROT1TAB2 PO; +PROTPAK PO; +PSEU60TA PO; +STOO100C PO; +SUCR1TAB56 PO; +SULF1TAB93 PO; +TAMS0.4C2 PO; +TIZA2TA PO; +TIZA4CAP PO; +TRAZ-160 PO; +TRAZ10TA PO; +TRAZ1TAB14 PO; +TRAZ25TA PO; +TRAZO50TA PO; -TRIAMCINOLONE ACETONIDE SUSP 40 MG/ML VIAL (J3301) As Ordered; +VITA-182 PO; +VITA100066 PO; +VITA50005 PO; +VOLT1GEL15 TD; +ZANA4TAB PO; +ZANT300T9 PO; +ZEST10TA4 PO; +ZOFR4TAB14 PO; +ZOFR4TAB16 PO; -diazePAM 5 MG TAB As Ordered; -oxyCODONE 5MG TAB As Ordered; +prilosec PO
--- NOTE | 2018-07-15 13:47 | REP ---
WHOLE BODY BONE SCAN: Following the intravenous administration of 22 millicuries of technetium 99M MDP, patient's whole body was imaged in the anterior and posterior projections with additional oblique and lateral views obtained. There is scattered arthritic uptake, specifically in the cervical spine, bilateral shoulders, bilateral sternoclavicular joints. Linear increased uptake is seen anteriorly in the right 8th rib, correlating with the prior CT of the abdomen and pelvis, 07/28/2017. There is no definite abnormality involving this portion of the right 8th rib. However given its linear distribution I can not exclude a metastatic lesion. There does appear to be mild increased uptake in the adjacent costal cartilage, more medially. There is no other compelling scintigraphic evidence of osseous metastases. Renal and bladder activity are seen. IMPRESSION: Linear increased uptake in the anterior right 8th rib. Mild increased uptake in the adjacent more medial costal cartilage. Findings could be posttraumatic but a metastatic lesion in the rib can not be totally be excluded. There are other scattered areas of arthritic uptake most significantly in the cervical spine and bilateral shoulders. Electronically Signed by Case Garsia MD 07/15/2018 03:50 P
== END ==
LOC: M RAD 09:11
PROVIDERS: ATTEND Physician Assistant
DX: M47.892 Other spondylosis, cervical region (principal)

== ENCOUNTER → 2018-07-23 | Outpatient (CLI) | payer MEDICAID ==
--- NOTE | 2018-07-31 23:58 | ECWPNPC ---
PATIENT NAME: JUANA ROMEO : 1960 GENDER: MALE VISIT DATE: 07/23/2018 DISCHARGE DATE: 07/23/18 1242 VISIT LOCKED DATE TIME: PHYSICIAN: ANGUS AYALA MD RESOURCE: ANGUS AYALA MD REASON FOR APPOINTMENT 1. POST TPI HISTORY OF PRESENT ILLNESS HISTORY OF PRESENT ILLNESS: PAIN THE PATIENT DESCRIBES THE PAIN... 57 YEAR OLD MALE PATIENT WITH A HISTORY OF CHRONIC NECK AND LOW BACK PAIN. THE PATIENT DESCRIBES THE PAIN SHARP, STABBING, SHOOTING, AND CONTINUOUS WITH A PAIN SCORE OF 8-10/10 DEPENDING ON PHYSICAL ACTIVITY. THE PATIENT SAYS THAT THE PAIN IN IS NECK IS CURRENTLY THE WORST. THE PATIENT SAYS THE PAIN STARTS IN HIS NECK AND RADIATES DOWN HIS RIGHT ARM. THE PATIENT IS CURRENTLY USING IBUPROFEN AND BACLOFEN TO AID IN PAIN RELIEF. THE PATIENT SAYS THAT THE BACLOFEN HAS NOT BEEN HELPING MUCH AND THE IBUPROFEN HAS BEEN HELPING, BUT HE IS CURRENTLY HAVING STOMACH PAIN AND ISSUES. THE PATIENT SAYS THEY ARE DOING STUDIES REGARDING THE STOMACH PROBLEMS, BUT HAVE NOT FOUND ANYTHING YET. PATIENT DENIES UNEXPLAINABLE WEIGHT LOSS, FEVER, CHILLS, NEW CHANGES ON HIS URINARY OR BOWEL CONTROL. FALL RISK SCREENING: SCREENING :NO FALLS IN THE PAST YEAR CURRENT MEDICATIONS TAKING HUMALOG 100 UNIT/ML SOLUTION PER SLIDING SCALE SUBCUTANEOUS BEFORE MEALS MDD: 100 UNITS TAKING LANTUS 100 UNIT/ML SOLUTION 15 UNITS SUBCUTANEOUS TWICE DAILY TAKING ATORVASTATIN CALCIUM 10 MG TABLET 1 TABLET ORALLY ONCE A DAY TAKING ONETOUCH DELICA LANCETS 1 1 LANCET E11.8 FINGERSTICK BLOOD GLUCOSE, TID TAKING ROLLING WALKER 1 1 WITH BRAKES DX:[id number] DAILY MED#[id number] TAKING ALBUTEROL SULFATE HFA 108 (90 BASE) MCG/ACT AEROSOL SOLUTION 2 PUFFS INHALATION EVERY 4 HOURS NEEDED TAKING ADVAIR DISKUS 500-50 MCG/DOSE POWDER 1 PUFF INHALATION TWICE A DAY TAKING FAMOTIDINE 40 MG TABLET 1 TABLET ORALLY ONCE A DAY TAKING ASPIR-81 81 MG TABLET DELAYED RELEASE 1 TABLET ORALLY ONCE A DAY TAKING ONETOUCH VERIO - STRIP 1 E11.8 FINGERSTICK BLOOD SUGAR TID TAKING GLUCOMETER ONE TOUCH - GLUCOMETER ICD:250.02 IDDM FSBS FOUR TIMES DAILY TAKING MECLIZINE HCL 25 MG TABLET 1 TABLET NEEDED ORALLY ONCE A DAY TAKING VOLTAREN 1 % GEL ONE APPLICATION TRANSDERMAL TO RIGHT HAND TID PRN TAKING BACLOFEN 10 MG TABLET 1 TABLET WITH FOOD OR MILK ORALLY FOR SPASMS AND PAIN EVERY 6 HOURS NEEDED MDD3 TAKING IBUPROFEN 800 MG TABLET 1 TABLET WITH FOOD OR MILK ORALLY EVERY 6 HOURS NEEDED FOR PAIN MDD3 TAKING TRAZODONE HCL 150 MG TABLET 1 TABLET AT BEDTIME NEEDED ORALLY ONCE A DAY TAKING CYMBALTA 30 MG CAPSULE DELAYED RELEASE PARTICLES 1 CAPSULE ORALLY ONCE A DAY TAKING ONDANSETRON 4 MG TABLET DISINTEGRATING 1 TABLET ON THE TONGUE AND ALLOW TO DISSOLVE ORALLY EVERY 4 HRS TAKING GABAPENTIN 400 MG CAPSULE 1 CAPSULE ORALLY FOR PAIN THREE TIMES A DAY MDD3 TAKING COMPAZINE 25MG , NOTES: ALTERNATE WITH ZOFRAN TAKING METAMUCIL FIBER 51.7 % PACKET ORALLY TAKING MIRALAX - PACKET 1 PACKET MIXED WITH 8 OUNCES OF FLUID ORALLY ONCE A DAY DISCONTINUED METOCLOPRAMIDE HCL 10 MG TABLET DIRECTED ORALLY FOUR TIMES DAILY MEDICATION LIST REVIEWED AND RECONCILED WITH THE PATIENT PAST MEDICAL HISTORY COPD SPIROMETRY 02/14/15 DIABETES MELLITUS TYPE 2 SINCE 1980 CHRONIC HEPATITIS C GENOTYPE 1A LIVER CIRRHOSIS F4, HEPATITIS A- HEPATITIS B NEGATIVE DIAGNOSED AGE 16 TREATED WITH HARVONI FOR 12 WEEKS 3-11/2014 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 DEJESUS) -2017 ORTHOSTATIC HYPOTENSION GASTROPARESIS (DR. ASHLEY AT [facility]) NEUROLOGIST: DR. SARAHI MOROCHO IN [place] NCOG: DR. VALLECILLO (NCO) PAIN MANAGEMENT: DR. AYALA PODIATRY: DR. COULTER ALLERGIES VERSED: PSYCHOTIC REACTION: ALLERGY PLASTIC OR VINYL TAPE: TEARS SKIN: ALLERGY SURGICAL HISTORY LIVER BIOPSY 2007 TONSILLECTOMY LEFT HAND SURGERY 08/16-08/17 COLONOSCOPY/ENDOSCOPY BY DR AGUILA 10/2013 DUPUYTREN'S CONTRACTURE RELEASE, LEFT HAND 01/26 COLONOSCOPY: NONTHROMBOSED EXTERNAL HEMORRHOIDS IN PERIANAL, INTERNAL HEMORRHOIDS 01/22/2016 EGD: NORMAL ESOPHAGUS, STOMACH, DUODENUM JANUARY 2016 FAMILY HISTORY FATHER: 78 YRS, HEART FAILURE, CVA, , ND, DIAGNOSED WITH STROKE MOTHER: 63 YRS, HEART FAILURE, ND, HTN, THROAT CANCER, DIAGNOSED WITH HYPERTENSION, HEART DISEASE SIBLINGS: ALIVE 62 YRS, QUARDPLE BYPASS 1 BROTHER(S) . 3 SON(S) , 1 DAUGHTER(S) - HEALTHY. SOCIAL HISTORY GENERAL: TOBACCO USE ARE YOU A:FORMER SMOKER HOW LONG HAS IT BEEN SINCE YOU LAST SMOKED?> 10 YEARS LUNG CANCER SCREENING SMOKING STATUS:FORMER SMOKER BMI CARE GOAL FOLLOW-UP ABOVE NORMAL BMI FOLLOW-UPDIETARY MANAGEMENT EDUCATION, GUIDANCE, AND COUNSELING ALCOHOL SCREENING DID YOU HAVE A DRINK CONTAINING ALCOHOL IN THE PAST YEAR?YES HOW MANY DRINKS DID YOU HAVE ON A TYPICAL DAY WHEN YOU WERE DRINKING IN THE PAST YEAR?5 OR 6 (2 POINTS) HOW OFTEN DID YOU HAVE A DRINK CONTAINING ALCOHOL IN THE PAST YEAR?TWO TO THREE TIMES PER WEEK (3 POINTS) POINTS5 INTERPRETATIONPOSITIVE RECREATIONAL DRUG USE DENIES. CAFFEINE 6 GLASSES OF TEA / DAY. 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 LEARNING BARRIERS / SPECIAL NEEDS BARRIERS TO LEARNING?NO HEARING IMPAIRED?NO VISION IMPAIRED?YES COGNITIVELY IMPAIRED?NO :CORRECTIVE LENSES READINESS TO LEARN?YES LEARNING PREFERENCES?YES :DEMONSTRATION/VERBAL INSTRUCTION LEARNING CAPABILITIES PRESENT?YES EMOTIONAL BARRIERS?NO OCCUPATION: DISABLED.. DIET: CONSISTENT CARBOHYDRATES. EXERCISE: NONE. MARITAL STATUS: . OTHERS AT HOME: SPOUSE. PAIN CLINIC PFS, CLERGY, PUBLIC HEALTH REFERRALS WAS THE PROVIDER NOTIFIED OF ANY PERTINENT INFO?YES HAS THE PATIENT BEEN EDUCATED REGARDING HIS/HER PLAN OF CARE?YES REVIEWED DIAGNOSTIC FACET WITH PATIENT. CM REVIEWED RADIOFREQUENCY WITH PATIENT. CM HAS THE PATIENT BEEN EDUCATED REGARDING PAIN, THE RISK FOR PAIN, THE IMPORTANCE OF EFFECTIVE PAIN MANAGEMENT, AND THE PAIN ASSESSMENT PROCESS?YES ADVANCE DIRECTIVE ADVANCE DIRECTIVE DISCUSSED WITH PATIENT:YES DECLINED INFO AND ASSISTANCE WITH FORM AT THIS TIME 07/23/18 REVIEWED WITH PT 07/23/18 1118 BV. HOSPITALIZATION/MAJOR DIAGNOSTIC PROCEDURE ACUTE SMALL/MEDIUM R POSTERIOR TEMPORAL AND PARIETAL STROKE 11/08/2014 DUE TO STROKE- 4 DAYS 11/2014 MRSA 2012, 13, 14 [facility]: SUICIDAL THOUGHTS 01/2015 ANXIETY AND DEPRESSION 06/11/2015 [facility] 02/15/16-02/22/[address] [facility] FOR ORTHOSTATIC HYPOTENSION 10/25- 10/27 REVIEW OF SYSTEMS REVIEWED BY: PROVIDER: ANGUS AYALA MD . CONSTITUTIONAL: ANY CHANGE IN YOUR MEDICAL CONDITION? NO . CHILLS NO . FEVER NO . INFECTION: DO YOU HAVE NEW INFECTIONS? NO . DO YOU HAVE HISTORY OF MRSA? NO . MUSCULOSKELETAL: ANY NEW PATTERNS OF PAIN OR NUMBNESS? NO . GASTROENTEROLOGY: ANY NEW CHANGE IN BOWEL CONTROL? NO . GENITOURINARY: ANY NEW CHANGE IN BLADDER CONTROL? NO . IS THERE A CHANCE YOU COULD BE ? NO . HEMATOLOGY/LYMPH: DO YOU TAKE ANY BLOOD THINNERS? (FOR EXAMPLE- COUMADIN, PLAVIX, AGGRENOX, PLATEL, PRADAXA, OR XARELTO) NO . WHEN WAS YOUR LAST DOSE? DATE: TIME: . NEUROLOGY: HAVE YOU FALLEN IN THE PAST 12 MONTHS? YES, PT STATES HE HAS HAD A FEW FALLS IN THE PAST YEAR DUE TO DIZZINESS UPON STANDING. PT DENIES ANY INJURIES OR ED VISIT RESULTING FROM ANY FALLS IN THE PAST YEAR. . ANY NEW EXTREMITY NUMBNESS OR WEAKNESS? NO . CARDIOLOGY: DO YOU HAVE A PACEMAKER OR DEFIBRILLATOR? NO . RESPIRATORY: HAVE YOU BEEN SICK IN THE PAST WEEK? NO . FEVER NO . FLU LIKE SYMPTOMS? NO . COUGH NO . INTEGUMENTARY: DO YOU HAVE ANY RASHES OR OPEN SORES? NO . ALLERGIC/IMMUNO: ARE YOU ALLERGIC TO IV DYE? NO . ANY NEW ALLERGIES? NO . PSYCHIATRIC: DO YOU HAVE THOUGHTS OF HURTING YOURSELF OR SOMEONE ELSE? NO . ARE YOU ABUSED, NEGLECTED, OR IN AN UNSAFE ENVIRONMENT? NO . ENDOCRINOLOGY: ARE YOU DIABETIC? YES, FSBS WAS 195 AT 9AM . OTHER: DO YOU NEED ANY PRESCRIPTIONS? YES, WANTS TO TALK ABOUT INCREASING BACLOFEN . IF YES, PLEASE LIST: ____ . ANY NEW PROBLEMS WITH YOUR MEDICATIONS? NO . WHEN DID YOU LAST EAT? ____ . WHEN DID YOU LAST DRINK? ____ . WHAT DID YOU LAST DRINK? ____ . NAME OF PERSON DRIVING YOU HOME? ____ . DO YOU HAVE ANY OTHER QUESTIONS OR CONCERNS NO . VITAL SIGNS WT 170 LBS, HT 69 IN, BMI 25.10 INDEX, BP 121/82 MM HG, HR 99 /MIN, RR 18 /MIN, TEMP 98.8 F, OXYGEN SAT % 92%, NA INITIALS SC 11:04, REVIEWED BY: BV. EXAMINATION GENERAL EXAMINATION: PATIENT IS ALERT O X 3 AND COOPERATIVE. PATIENT HAS DIFFICULTY ABDUCTING THE UPPER EXTREMITIES. RIGHT ARM IS WEAKER AT EXTENSION AND FLEXION. HAND ASSISTANT PROFESSOR OF PHILOSOPHY OVER THE RIGHT SIDE IS REDUCED. PAIN INCREASES OVER THE CERVICAL FACET JOINTS WITH EXTENSION AND LATERAL ROTATION OF THE NECK. MRI OF THE CERVICAL SPINE DONE ON 05/07/2018 SHOWS STENOSIS AND A DISC PROTRUSION AT MULTIPLE LEVELS. ASSESSMENTS CERVICAL DISC DISORDER WITH RADICULOPATHY OF CERVICAL REGION - M50.10 (PRIMARY) TREATMENT CERVICAL DISC DISORDER WITH RADICULOPATHY OF CERVICAL REGION CLINICAL NOTES: WE DISCUSSED SEVERAL ISSUES WITH MR. ROMEO'S PAIN MANAGEMENT CASE. DUE TO THE CERVICAL RADICULOPATHY, I WOULD LIKE TO MOVE FORWARD WITH A CERVICAL EPIDURAL STEROID INJECTION AT THIS TIME. WE DISCUSSED THE BENEFITS, RISKS, AND ALTERNATIVES OF THE INJECTION AND THE PATIENT WOULD LIKE TO PROCEED. THE PATIENT WILL STOP USING BACLOFEN AND START USING CYCLOBENZAPRINE INSTEAD TO HELP WITH THE SPASMS. THE PATIENT WILL START USING CELEBREX IN PLACE OF THE IBUPROFEN DUE TO THE STOMACH ISSUES HE IS HAVING. THE PATIENT WILL FOLLOW UP IN 6 WEEKS. INSTRUCTIONS WERE GIVEN, QUESTIONS WERE ANSWERED, PATIENT REPORTS UNDERSTANDING AND AGREES WITH THE PLAN. I, ABNER ISABEL, DOCUMENTED THE ABOVE INFORMATION ACTING A SCRIBE FOR DR. AYALA. I HAVE REVIEWED THE ABOVE DOCUMENT, WRITTEN BY ABNER NAIR AND I VERIFY THAT IT IS ACCURATE. OTHERS START CYCLOBENZAPRINE HCL TABLET, 10 MG, 1 TABLET NEEDED, ORALLY FOR SPASMS AND PAIN, EVERY 6 HOURS NEEDED MDD3, 30 DAY(S), 70, REFILLS 1 START CELEBREX CAPSULE, 200 MG, 1 CAPSULE WITH FOOD, ORALLY FOR PAIN, ONCE A DAY MDD1, 30 DAY(S), 30, REFILLS 1 NOTES: CERVICAL EPIDURAL INJECTION MATERIAL WAS PRINTED. PREVENTIVE MEDICINE PAIN CLINIC TEACHING: MEDICATIONS PT GIVEN WRITTEN AND VERBAL EDUCATION ON STARTING CYCLOBENZAPRINE AND CELEBREX. PT VERBALIZES UNDERSTANDING OF ALL EDUCATION, STATING HE HAS BEEN ON BOTH MEDICATIONS IN THE PAST. PARUL FRIEDMAN 07/23/2018 12:40:46 PM > . PROCEDURE TEACHING PT GIVEN WRITTEN AND VERBAL EDUCATION ON CERVICAL EPIDURAL INJECTIONS. PT ALSO GIVEN WRITTEN AND VERBAL PRE-PROCEDURE INSTRUCTIONS. PT VERBALIZES UNDERSTANDING OF ALL EDUCATION AND INSTRUCTIONS. PARUL FRIEDMAN 07/23/2018 12:41:33 PM > . PROCEDURE CODES FA211 ESTABILISHED PATIENT [facility] FACILITY CHARGE G8427 CURRENT MEDS W/DOSAGES DOCUMENTED G8730 PAIN ASSESS POS TOOL F/U PLAN DOC DISPOSITION & COMMUNICATION FOLLOW UP SURINDER & F/U 3 WEEKS AFTER ELECTRONICALLY SIGNED BY ANGUS AYALA MD, ON 07/31/2018 AT 08:44 PM EST DISCLAIMER : THIS IS A VISIT SUMMARY EXTRACTED FROM THE [employer] CHART. IT IS NOT A COPY OF THE [employer] PROGRESS NOTE. MTDD
== END ==
LOC: M PAIN 11:15
PROVIDERS: ATTEND Anesthesiology
DX: M50.10 Cervical disc disorder with radiculopathy, unspecified cervical region (principal); G89.29 Other chronic pain; E11.43 Type 2 diabetes mellitus with diabetic autonomic (poly)neuropathy; J44.9 Chronic obstructive pulmonary disease, unspecified; F32.9 Major depressive disorder, single episode, unspecified; F43.23 Adjustment disorder with mixed anxiety and depressed mood; F10.10 Alcohol abuse, uncomplicated; Z87.891 Personal history of nicotine dependence; Z86.73 Personal history of transient ischemic attack (TIA), and cerebral infarction without residual deficits; Z86.79 Personal history of other diseases of the circulatory system; Z88.8 Allergy status to other drugs, medicaments and biological substances; Z91.09 Other allergy status, other than to drugs and biological substances; Z86.59 Personal history of other mental and behavioral disorders; Z79.4 Long term (current) use of insulin; Z79.82 Long term (current) use of aspirin; Z79.899 Other long term (current) drug therapy

== ENCOUNTER → 2018-08-03 | Outpatient (CLI) | payer MEDICAID ==
[2018-08-03 12:44] LABS: HEMOGLOBIN A1c 8.5 %
[2018-08-03 12:58] LABS: ALBUMIN 4.2 GM/DL (3.2-5.2); BLOOD UREA NITROGEN 5 MG/DL (7-18); CALCIUM LEVEL 9.6 MG/DL (8.5-10.1); CARBON DIOXIDE LEVEL 25 MEQ/L (21-32); CHLORIDE LEVEL 94 MEQ/L (98-107); GLOMERULAR FILTRATION RATE > 60.0 (>56); GLUCOSE, FASTING 213 MG/DL (70-100); PHOSPHORUS LEVEL 3.7 MG/DL (2.5-4.9); POTASSIUM SERUM 4.6 MEQ/L (3.5-5.1); SODIUM LEVEL 131 MEQ/L (136-145); TOTAL 25(OH) VITAMIN D 20.4 NG/ML (30.0-100.0)
== END ==
LOC: M LAB 09:05
PROVIDERS: ATTEND Obstetrics & Gynecology
DX: E11.43 Type 2 diabetes mellitus with diabetic autonomic (poly)neuropathy (principal); K74.60 Unspecified cirrhosis of liver; E55.9 Vitamin D deficiency, unspecified

== ENCOUNTER → 2018-08-03 | Outpatient (CLI) | payer MEDICAID ==
--- NOTE | 2018-08-03 12:15 | REP ---
Right upper quadrant abdominal ultrasound for cirrhosis: There is a negative Rosas's sign to transducer pressure. The gallbladder is partially obscured by bowel gas. There is no cholelithiasis, gallbladder wall thickening or pericholecystic fluid. The visualized portion of the gallbladder. There is no intrahepatic or extrahepatic biliary duct dilatation, the common duct measures 4.2 mm in diameter. The hepatic parenchyma is heterogeneous. The liver has a nodular margins. These findings are compatible with the clinical history of cirrhosis. No hepatic masses are identified. The visualized areas of the pancreatic body and head are unremarkable. The tail is obscured by bowel gas. The right kidney measures 11.7 x 6.4 x 6.4 cm. The right renal cortex is mildly echogenic, compatible with medical renal disease. There is no right renal hydronephrosis, calculus, mass or cyst. There is a 1.3 cm right renal cyst laterally. There is no right upper quadrant abdominal ascites. Impression: The hepatic parenchyma is heterogeneous and the margins are nodular, compatible with the clinical history of cirrhosis. No hepatic masses are identified. There is no biliary duct dilatation. There is a right renal cyst. There is no right upper quadrant ascites. Electronically Signed by Case Toney MD 08/03/2018 12:06 P
== END ==
LOC: M RAD 08:07
PROVIDERS: ATTEND Obstetrics & Gynecology
DX: K74.60 Unspecified cirrhosis of liver (principal)

== ENCOUNTER → 2018-08-03 | Outpatient (CLI) | payer MEDICAID ==
[2018-08-03 12:09] LABS: HEMATOCRIT 47.6 % (42.0-52.0); HEMOGLOBIN 16.8 g/dl (13.5-17.5); MEAN CORPUSCULAR HEMOGLOBIN 31.9 pg (27.0-33.0); MEAN CORPUSCULAR HGB CONC 35.3 g/dl (32.0-36.5); MEAN CORPUSCULAR VOLUME 90.5 fl (80.0-96.0); PLATELET COUNT, AUTOMATED 147 10^3/uL (150-450); RED BLOOD COUNT 5.26 10^6/uL (4.30-6.10); WHITE BLOOD COUNT 5.7 10^3/uL (4.0-10.0)
[2018-08-03 12:31] LABS: INR 0.92; PROTHROMBIN TIME 12.4 SECONDS (12.1-14.4)
[2018-08-03 12:43] LABS: ALBUMIN 4.3 GM/DL (3.2-5.2); ALT/SGPT 29 U/L (12-78); BILIRUBIN,DIRECT 0.3 MG/DL (0.0-0.2); BILIRUBIN,TOTAL 0.7 MG/DL (0.2-1.0); BLOOD UREA NITROGEN 6 MG/DL (7-18); CALCIUM LEVEL 9.4 MG/DL (8.5-10.1); CARBON DIOXIDE LEVEL 30 MEQ/L (21-32); CHLORIDE LEVEL 94 MEQ/L (98-107); CREATININE FOR GFR 0.67 MG/DL (0.70-1.30); GLOMERULAR FILTRATION RATE > 60.0 (>56); GLUCOSE, FASTING 220 MG/DL (70-100); MAGNESIUM LEVEL 2.2 MG/DL (1.8-2.4); PHOSPHORUS LEVEL 3.5 MG/DL (2.5-4.9); POTASSIUM SERUM 4.5 MEQ/L (3.5-5.1); SODIUM LEVEL 131 MEQ/L (136-145); TOTAL PROTEIN 7.2 GM/DL (6.4-8.2)
[2018-08-03 12:50] LABS: VITAMIN B12 LEVEL 536 PG/ML (247-911)
== END ==
LOC: M LAB 09:14
PROVIDERS: ATTEND Internal Medicine Gastroenterology
DX: E11.43 Type 2 diabetes mellitus with diabetic autonomic (poly)neuropathy (principal); K31.84 Gastroparesis

== ENCOUNTER → 2018-08-26 | Outpatient (CLI) | payer MEDICAID ==
[~2018-08-26] MED LIST changes: +ISOVUE-M 300 61% 15ML VIAL (Q9967) As Ordered ONE; +LIDOCAINE 1% SDV INJ 30 ML VIAL As Ordered ONE; +diazePAM 5 MG TAB As Ordered ONE; +methylPREDNISolone SUSP 40 MG/ML (DEPO-medrol) VIAL (J1030) As Ordered ONE; +oxyCODONE 5MG TAB As Ordered ONE
--- NOTE | 2018-08-26 14:21 | REP ---
FLUOROSCOPIC GUIDANCE FOR CERVICAL SPINE EPIDURAL INJECTION: 08/26/2018 CLINICAL HISTORY: Neck pain. FINDINGS: Three images from C-arm fluoroscopy of the cervical spine provided to Dr. Coulter of the pain clinic. There is a needle just to the right of midline at the C7-T1 level with contrast adjacent to the needle on one image. Fluoroscopy time: 12 seconds. Electronically Signed by Vikas Winn MD 08/26/2018 07:50 P
--- NOTE | 2018-09-08 00:26 | ECWPNPC ---
PATIENT NAME: JUANA ROMEO : 1960 GENDER: MALE VISIT DATE: 08/26/2018 DISCHARGE DATE: 08/26/18 1254 VISIT LOCKED DATE TIME: PHYSICIAN: ANGUS AYALA MD RESOURCE: ANGUS AYALA MD REASON FOR APPOINTMENT 1. SURINDER HISTORY OF PRESENT ILLNESS HISTORY OF PRESENT ILLNESS: PAIN THE PATIENT DESCRIBES THE PAIN... FALL RISK SCREENING: SCREENING : NO FALLS IN THE PAST YEAR. CURRENT MEDICATIONS TAKING CYCLOBENZAPRINE HCL 10 MG TABLET 1 TABLET NEEDED ORALLY FOR SPASMS AND PAIN EVERY 6 HOURS NEEDED MDD3, NOTES: 08/25/182099 TAKING CELEBREX 200 MG CAPSULE 1 CAPSULE WITH FOOD ORALLY FOR PAIN ONCE A DAY MDD1, NOTES: 08/26/18799 TAKING HUMALOG 100 UNIT/ML SOLUTION PER SLIDING SCALE SUBCUTANEOUS BEFORE MEALS MDD: 100 UNITS, NOTES: 08/25/181999 TAKING LANTUS 100 UNIT/ML SOLUTION 15 UNITS SUBCUTANEOUS TWICE DAILY, NOTES: 08/25/181999 TAKING ATORVASTATIN CALCIUM 10 MG TABLET 1 TABLET ORALLY ONCE A DAY, NOTES: 08/26/18799 TAKING ONETOUCH DELICA LANCETS 1 1 LANCET E11.8 FINGERSTICK BLOOD GLUCOSE, TID TAKING ROLLING WALKER 1 1 WITH BRAKES DX:M47.817 DAILY MED#[id number] TAKING ALBUTEROL SULFATE HFA 108 (90 BASE) MCG/ACT AEROSOL SOLUTION 2 PUFFS INHALATION EVERY 4 HOURS NEEDED, NOTES: 08/24/18 TAKING ADVAIR DISKUS 500-50 MCG/DOSE POWDER 1 PUFF INHALATION TWICE A DAY, NOTES: 08/24/18799 TAKING FAMOTIDINE 40 MG TABLET 1 TABLET ORALLY ONCE A DAY, NOTES: 08/26/18799 TAKING ASPIR-81 81 MG TABLET DELAYED RELEASE 1 TABLET ORALLY ONCE A DAY, NOTES: 08/26/18799 TAKING ONETOUCH VERIO - STRIP 1 E11.8 FINGERSTICK BLOOD SUGAR TID TAKING GLUCOMETER ONE TOUCH - GLUCOMETER ICD:250.02 IDDM FSBS FOUR TIMES DAILY TAKING MECLIZINE HCL 25 MG TABLET 1 TABLET NEEDED ORALLY ONCE A DAY, NOTES: 08/26/18 08 TAKING VOLTAREN 1 % GEL ONE APPLICATION TRANSDERMAL TO RIGHT HAND TID PRN, NOTES: 08/24/18 TAKING TRAZODONE HCL 150 MG TABLET 1 TABLET AT BEDTIME NEEDED ORALLY ONCE A DAY, NOTES: 08/25/181999 TAKING CYMBALTA 30 MG CAPSULE DELAYED RELEASE PARTICLES 1 CAPSULE ORALLY ONCE A DAY, NOTES: 08/26/18799 TAKING ONDANSETRON 4 MG TABLET DISINTEGRATING 1 TABLET ON THE TONGUE AND ALLOW TO DISSOLVE ORALLY EVERY 4 HRS, NOTES: 08/26/18799 TAKING GABAPENTIN 400 MG CAPSULE 1 CAPSULE ORALLY FOR PAIN THREE TIMES A DAY MDD3, NOTES: 08/26/18799 TAKING COMPAZINE 25MG , NOTES: 08/25/181999 TAKING METAMUCIL FIBER 51.7 % PACKET ORALLY , NOTES: 08/25/181999 TAKING MIRALAX - PACKET 1 PACKET MIXED WITH 8 OUNCES OF FLUID ORALLY ONCE A DAY, NOTES: 08/25/181999 NOT-TAKING BACLOFEN 10 MG TABLET 1 TABLET WITH FOOD OR MILK ORALLY FOR SPASMS AND PAIN EVERY 6 HOURS NEEDED MDD3 NOT-TAKING IBUPROFEN 800 MG TABLET 1 TABLET WITH FOOD OR MILK ORALLY EVERY 6 HOURS NEEDED FOR PAIN MDD3 MEDICATION LIST REVIEWED AND RECONCILED WITH THE PATIENT PAST MEDICAL HISTORY COPD SPIROMETRY 02/14/15 DIABETES MELLITUS TYPE 2 SINCE 1980 CHRONIC HEPATITIS C GENOTYPE 1A LIVER CIRRHOSIS F4, HEPATITIS A- HEPATITIS B NEGATIVE DIAGNOSED AGE 16 TREATED WITH HARVONI FOR 12 WEEKS 3-11/2014 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 DEJESUS) -2017 ORTHOSTATIC HYPOTENSION GASTROPARESIS (DR. ASHELY AT [facility]) NEUROLOGIST: DR. SARAHI MOROCHO IN [place] NCOG: DR. VALLECILLO ([facility]) PAIN MANAGEMENT: DR. AYALA PODIATRY: DR. COULTER ALLERGIES VERSED: PSYCHOTIC REACTION - ALLERGY PLASTIC OR VINYL TAPE: TEARS SKIN - ALLERGY SURGICAL HISTORY LIVER BIOPSY 2007 TONSILLECTOMY LEFT HAND SURGERY 08/16-08/17 COLONOSCOPY/ENDOSCOPY BY DR AGUILA 10/2013 DUPUYTREN'S CONTRACTURE RELEASE, LEFT HAND 01/26 COLONOSCOPY: NONTHROMBOSED EXTERNAL HEMORRHOIDS IN PERIANAL, INTERNAL HEMORRHOIDS 01/22/2016 EGD: NORMAL ESOPHAGUS, STOMACH, DUODENUM JANUARY 2016 FAMILY HISTORY FATHER: 78 YRS, HEART FAILURE, CVA, , [place], DIAGNOSED WITH STROKE MOTHER: 63 YRS, HEART FAILURE, [place], HTN, THROAT CANCER, HYPERTENSION, HEART DISEASE SIBLINGS: ALIVE 62 YRS, QUARDPLE BYPASS 1 BROTHER(S) . 3 SON(S) , 1 DAUGHTER(S) - HEALTHY. SOCIAL HISTORY GENERAL: TOBACCO USE ARE YOU A:FORMER SMOKER HOW LONG HAS IT BEEN SINCE YOU LAST SMOKED?> 10 YEARS LATEX QUESTIONNAIRE LATEX ALLERGY : HAVE YOU EVER DEVELOPED ANY TYPE OF REACTION AFTER HANDLING LATEX PRODUCTS SUCH RUBBER GLOVES, CONDOMS, DIAPHRAGMS, BALLOONS, SOCKS, OR UNDERWEAR?NO LATEX ALLERGY : HAVE YOU EVER DEVELOPED ANY TYPE OF REACTION DURING OR AFTER DENTAL APPOINTMENT, VAGINAL/RECTAL EXAMINATION, SURGICAL PROCEDURE, OR ANY OTHER EXPOSURE?NO LATEX RISK : HAVE YOU EVER HAD ANY DIFFICULTY BREATHING OR HIVES AFTER EATING OR HANDLING ANY FRUITS, OR VEGETABLES; SUCH KIWI, BANANAS, STONE FRUITS, OR CHESTNUTSNO LATEX RISK : DO YOU HAVE A PREVIOUS PERSONAL HISTORY OF MORE THAN NINE SURGERIES, SPINA BIFIDA, OR REPEATED CATHERTIZATIONS? NO LATEX RISK : ARE YOU FREQUENTLY EXPOSED TO LATEX PRODUCTS IN YOUR OCCUPATION?NO DATE ASKED : 08/26/2018 LUNG CANCER SCREENING SMOKING STATUS:FORMER SMOKER BMI CARE GOAL FOLLOW-UP ABOVE NORMAL BMI FOLLOW-UPDIETARY MANAGEMENT EDUCATION, GUIDANCE, AND COUNSELING ALCOHOL SCREENING DID YOU HAVE A DRINK CONTAINING ALCOHOL IN THE PAST YEAR?YES HOW MANY DRINKS DID YOU HAVE ON A TYPICAL DAY WHEN YOU WERE DRINKING IN THE PAST YEAR?5 OR 6 (2 POINTS) HOW OFTEN DID YOU HAVE A DRINK CONTAINING ALCOHOL IN THE PAST YEAR?TWO TO THREE TIMES PER WEEK (3 POINTS) POINTS5 INTERPRETATIONPOSITIVE RECREATIONAL DRUG USE DENIES. CAFFEINE 6 GLASSES OF TEA / DAY. SEXUAL HX HAD SEX IN THE LAST 12 MONTHS (VAGINAL, ORAL, OR ANAL)?NO EPISCOPALIAN [id number] JAINISM LANGUAGE [place]. 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 LEARNING BARRIERS / SPECIAL NEEDS BARRIERS TO LEARNING?NO HEARING IMPAIRED?NO VISION IMPAIRED?YES COGNITIVELY IMPAIRED?NO :CORRECTIVE LENSES READINESS TO LEARN?YES LEARNING PREFERENCES?YES :DEMONSTRATION/VERBAL INSTRUCTION LEARNING CAPABILITIES PRESENT?YES EMOTIONAL BARRIERS?NO OCCUPATION: DISABLED.. DIET: CONSISTENT CARBOHYDRATES. EXERCISE: NONE. MARITAL STATUS: . OTHERS AT HOME: SPOUSE. PAIN CLINIC PFS, CLERGY, PUBLIC HEALTH REFERRALS WAS THE PROVIDER NOTIFIED OF ANY PERTINENT INFO?YES HAS THE PATIENT BEEN EDUCATED REGARDING HIS/HER PLAN OF CARE?YES REVIEWED DIAGNOSTIC FACET WITH PATIENT. CM REVIEWED RADIOFREQUENCY WITH PATIENT. CM HAS THE PATIENT BEEN EDUCATED REGARDING PAIN, THE RISK FOR PAIN, THE IMPORTANCE OF EFFECTIVE PAIN MANAGEMENT, AND THE PAIN ASSESSMENT PROCESS?YES ADVANCE DIRECTIVE ADVANCE DIRECTIVE DISCUSSED WITH PATIENT:YES DECLINED INFO AND ASSISTANCE WITH FORM AT THIS TIME REVIEWED WITH PT 07/23/18 1118 BVREVIEWED WITH PT 08/26/18 1108 LAS. HOSPITALIZATION/MAJOR DIAGNOSTIC PROCEDURE ACUTE SMALL/MEDIUM R POSTERIOR TEMPORAL AND PARIETAL STROKE 11/08/2014 DUE TO STROKE- 4 DAYS 11/2014 MRSA 2011, , IMHU: SUICIDAL THOUGHTS 01/2015 ANXIETY AND DEPRESSION 06/11/2015 [facility] 02/15/16-02/22/16 ADMITTED TO [facility] FOR ORTHOSTATIC HYPOTENSION 10/25- 10/27 REVIEW OF SYSTEMS REVIEWED BY: PROVIDER: . CONSTITUTIONAL: ANY CHANGE IN YOUR MEDICAL CONDITION? NO . CHILLS NO . FEVER NO . INFECTION: DO YOU HAVE NEW INFECTIONS? NO . DO YOU HAVE HISTORY OF MRSA? YES HISTORY OF MRSA ON ARMS, NOT ACTIVE AT PRESENT . MUSCULOSKELETAL: ANY NEW PATTERNS OF PAIN OR NUMBNESS? NO . GASTROENTEROLOGY: ANY NEW CHANGE IN BOWEL CONTROL? NO . GENITOURINARY: ANY NEW CHANGE IN BLADDER CONTROL? NO . IS THERE A CHANCE YOU COULD BE ? NO . HEMATOLOGY/LYMPH: DO YOU TAKE ANY BLOOD THINNERS? (FOR EXAMPLE- COUMADIN, PLAVIX, AGGRENOX, PLATEL, PRADAXA, OR XARELTO) NO . WHEN WAS YOUR LAST DOSE? DATE: TIME: . NEUROLOGY: HAVE YOU FALLEN IN THE PAST 12 MONTHS? PT WITH HISTORY OF ORTHOSTATIC HYPOTENSION, GETS DIZZY UPON RISING. HAS HAD BROKEN RIB/BACK FROM FALL ABOUT A YEAR AGO, SEEN AND TREATED IN ED . ANY NEW EXTREMITY NUMBNESS OR WEAKNESS? NO . CARDIOLOGY: DO YOU HAVE A PACEMAKER OR DEFIBRILLATOR? NO . RESPIRATORY: HAVE YOU BEEN SICK IN THE PAST WEEK? NO . FEVER NO . FLU LIKE SYMPTOMS? NO . COUGH NO . INTEGUMENTARY: DO YOU HAVE ANY RASHES OR OPEN SORES? NO . ALLERGIC/IMMUNO: ARE YOU ALLERGIC TO IV DYE? NO . ANY NEW ALLERGIES? NO . PSYCHIATRIC: DO YOU HAVE THOUGHTS OF HURTING YOURSELF OR SOMEONE ELSE? NO . ARE YOU ABUSED, NEGLECTED, OR IN AN UNSAFE ENVIRONMENT? NO . ENDOCRINOLOGY: ARE YOU DIABETIC? NO . OTHER: DO YOU NEED ANY PRESCRIPTIONS? NO . IF YES, PLEASE LIST: ____ . ANY NEW PROBLEMS WITH YOUR MEDICATIONS? NO . WHEN DID YOU LAST EAT? ____08/25/18 2330 . WHEN DID YOU LAST DRINK? ____08/26/18 0840 . WHAT DID YOU LAST DRINK? ____WATER . NAME OF PERSON DRIVING YOU HOME? ____[employer]ICAID [place] . DO YOU HAVE ANY OTHER QUESTIONS OR CONCERNS NO . VITAL SIGNS WT 175.6 LBS, HT 69 IN, BMI 25.93 INDEX, BP 137/96 MM HG, HR 114 /MIN, RR 18 /MIN, TEMP 97.7 F, OXYGEN SAT % 96%, BLOOD GLUCOSE LEVEL 203 THIS AM PER PT, SAFE IN ENV? (Y/N) YES, NA INITIALS SC 10:52, REVIEWED BY: ROBERT. ASSESSMENTS CERVICAL SPINAL STENOSIS - M48.02 (PRIMARY) CERVICAL DISC DISORDER WITH RADICULOPATHY OF CERVICAL REGION - M50.10 TREATMENT CERVICAL DISC DISORDER WITH RADICULOPATHY OF CERVICAL REGION [facility] FLUORO GUIDE SPINE INJECTION (PAIN)[id number] PROCEDURES PN CERVICAL EPIDURAL PRE PROCEDURE DIAGNOSIS CERVICAL DISC DISORDER WITH RADICULOPATHY , CERVICAL SPINAL STENOSIS POST PROCEDURE DIAGNOSIS CERVICAL DISC DISORDER WITH RADICULOPATHY , CERVICAL SPINAL STENOSIS PROCEDURE CERVICAL EPIDURAL STEROID INJECTION UNDER FLUOROSCOPIC GUIDANCE SURGEON DR. ANGUS AYALA RIBBON BLOCKMAKER NONE ANESTHESIA LOCAL PRE PROCEDURE NOTE THE PATIENT HAS A HISTORY OF CHRONIC CERVICAL PAIN. I EVALUATE THE PATIENT AND REVIEWED THE CHART. I WENT OVER THE RISKS, ALTERNATIVES, AND BENEFITS ASSOCIATED WITH THIS PROCEDURE. THE PATIENT WOULD LIKE TO PROCEED AND GIVE CONSENT TO PERFORMED THE PROCEDURE. THE PATIENT DENIES UNEXPLAINABLE WEIGHT LOSS, FEVER, CHILLS, OR NEW CHANGES IN URINARY OR BOWEL CONTROL DESCRIPTION OF PROCEDURE THE PATIENT WAS BROUGHT TO THE PROCEDURE ROOM AND PLACED IN THE PRONE POSITION. THE CERVICOTHORACIC AREA WAS CLEANED WITH BETADINE SOLUTION AND DRAPED ASEPTICALLY. THE PROCEDURE WAS DONE UNDER STERILE CONDITIONS. I CHECKED LATERALITY AND THE LEVEL WHERE THE PROCEDURE WAS GOING TO BE PERFORMED WITH THE PATIENT AND THE SUPPORTING STAFF AT THE MOMENT OF THE TIME OUT IN THE PROCEDURE ROOM. UNDER FLUOROSCOPIC GUIDANCE, THE TARGET WAS SELECTED AT THE INTERLAMINAR LEVEL OF C7-T1. LIDOCAINE WAS USED TO NUMB THE SKIN AND THE SUBCUTANEOUS TISSUE BELOW IT. EPIDURAL TUOHY NEEDLE 17-GAUGE WAS ADVANCED UNDER FLUOROSCOPIC GUIDANCE AND FOLLOWING PATIENT FEEDBACK UNTIL THE EPIDURAL SPACE WAS REACHED 6 CM DEEP INTO THE SKIN BY THE LOSS OF RESISTANCE TECHNIQUE. ISOVUE M DYE 30%, 0.25 ML, WAS INJECTED SHOWING ADEQUATE SPREAD OF THE DYE. THEN, A SOLUTION OF 3 ML OF NORMAL SALINE WITH DEPO-MEDROL 60 MG WAS INJECTED SLOWLY FOLLOWING PATIENT FEEDBACK. THERE WAS NO EVIDENCE OF BLOOD, PARESTHESIA OR CEREBROSPINAL FLUID DURING THE PROCEDURE. THE PATIENT WAS SENT TO THE RECOVERY ROOM. THE PATIENT WAS MOVING THE EXTREMITIES AND DOING WELL. THERE WAS NO COMPLICATION DURING THE PROCEDURE. FLUOROSCOPY TIME WAS 12 SECONDS POST PROCEDURE NOTE THE PATIENT WILL BE SEEN IN A FOLLOW UP IN THE NEXT FEW WEEKS. INSTRUCTIONS WERE GIVEN, QUESTIONS WERE ANSWERED, AND THE PATIENT EXPRESSED UNDERSTANDING AND AGREES WITH THE PLAN. I, ABNER ISABEL, DOCUMENTED THE ABOVE INFORMATION ACTING A SCRIBE FOR DR. AYALA. I HAVE REVIEWED THE ABOVE DOCUMENT, WRITTEN BY ABNER NAIR AND I VERIFY THAT IT IS ACCURATE. PROCEDURE CODES 6045F RADXPS IN END [id number] PXD [id number] CERVICAL/THORACIC W/ IMAGING DISPOSITION & COMMUNICATION FOLLOW UP 3 WEEKS ELECTRONICALLY SIGNED BY ANGUS AYALA MD, MD ON 09/07/2018 AT 11:26 AM EDT DISCLAIMER : THIS IS A VISIT SUMMARY EXTRACTED FROM THE [facility] CHART. IT IS NOT A COPY OF THE [facility] PROGRESS NOTE. MTDD
== END ==
LOC: M PAIN 11:00
PROVIDERS: ATTEND Anesthesiology
DX: G89.29 Other chronic pain (principal); M48.02 Spinal stenosis, cervical region; M50.10 Cervical disc disorder with radiculopathy, unspecified cervical region; J44.9 Chronic obstructive pulmonary disease, unspecified; E11.43 Type 2 diabetes mellitus with diabetic autonomic (poly)neuropathy; F10.10 Alcohol abuse, uncomplicated; K31.84 Gastroparesis; I95.1 Orthostatic hypotension; Z79.4 Long term (current) use of insulin; Z79.82 Long term (current) use of aspirin; Z79.899 Other long term (current) drug therapy; Z88.4 Allergy status to anesthetic agent; Z91.09 Other allergy status, other than to drugs and biological substances; Z86.19 Personal history of other infectious and parasitic diseases; Z86.59 Personal history of other mental and behavioral disorders; Z87.891 Personal history of nicotine dependence; Z86.14 Personal history of Methicillin resistant Staphylococcus aureus infection
CPT/HCPCS: 62321; J1030; Q9967

== ENCOUNTER → 2018-10-28 | Outpatient (CLI) | payer MEDICAID ==
[~2018-10-28] MED LIST changes: -/TAMS4CA PO; -ACET50TA PO; +ASPI-1 PO; +ASPI-255 PO; -ASPI1TAB PO; -ASPI325T PO; -ASPI325T25 PO; -ASPI81TA PO; +ASPI81TA26 PO; +CHIL1CHW5 PO; -CITA20TA4 PO; +CITA20TA6 PO; +HYDR-3715 PO; -ISOVUE-M 300 61% 15ML VIAL (Q9967) As Ordered ONE; -LIDOCAINE 1% SDV INJ 30 ML VIAL As Ordered ONE; +MAPA500T17 PO; +MECL1CHW PO; -MECL1CHW2 PO; +MUPI1OIN2 TOP; -MUPI2OI TOP; -NORCOTAB PO; -diazePAM 5 MG TAB As Ordered ONE; -methylPREDNISolone SUSP 40 MG/ML (DEPO-medrol) VIAL (J1030) As Ordered ONE; -oxyCODONE 5MG TAB As Ordered ONE
--- NOTE | 2018-11-08 00:19 | ECWPNPC ---
PATIENT NAME: JUANA ROMEO : 1960 GENDER: MALE VISIT DATE: 10/28/2018 DISCHARGE DATE: 10/28/18 1622 VISIT LOCKED DATE TIME: PHYSICIAN: ANGUS AYALA MD RESOURCE: ANGUS AYALA MD REASON FOR APPOINTMENT 1. POST SURINDER HISTORY OF PRESENT ILLNESS HISTORY OF PRESENT ILLNESS: PAIN THE PATIENT DESCRIBES THE PAIN... 58 YEAR OLD MALE PATIENT WITH A HISTORY OF CHRONIC NECK AND LOW BACK PAIN. THE PATIENT DESCRIBES THE PAIN ACHING, SHOOTING, SORE, AND CONTINUOUS WITH A PAIN SCORE OF 6-9/10 DEPENDING ON PHYSICAL ACTIVITY. THE PATIENT STATES THE PAIN IS MAINLY IN HIS LOW BACK AREA AND RADIATES DOWN HIS LEGS. THE PATIENT SAYS THE PAIN INCREASES WITH ACTIVITIES AND HE HAS BEEN EXPERIENCING THIS PAIN FOR MANY YEARS. THE PATIENT RECEIVED A C7-T1 CERVICAL EPIDURAL DONE ON 08/26/2018, WHICH HE REPORTS HE IS EXPERIENCING GOOD PAIN RELIEF FROM THE PROCEDURE. PATIENT DENIES UNEXPLAINABLE WEIGHT LOSS, FEVER, CHILLS, NEW CHANGES ON HIS URINARY OR BOWEL CONTROL. FALL RISK SCREENING: SCREENING :NO FALLS REPORTED IN THE LAST YEAR CURRENT MEDICATIONS TAKING CYCLOBENZAPRINE HCL 10 MG TABLET 1 TABLET NEEDED ORALLY FOR SPASMS AND PAIN EVERY 6 HOURS NEEDED MDD3 TAKING ATORVASTATIN CALCIUM 10 MG TABLET 1 TABLET ORALLY ONCE A DAY TAKING ONETOUCH DELICA LANCETS 1 1 LANCET E11.8 FINGERSTICK BLOOD GLUCOSE, TID TAKING ROLLING WALKER 1 1 WITH BRAKES DX:M47.817 DAILY MED#[id number] TAKING ALBUTEROL SULFATE HFA 108 (90 BASE) MCG/ACT AEROSOL SOLUTION 2 PUFFS INHALATION EVERY 4 HOURS NEEDED TAKING ADVAIR DISKUS 500-50 MCG/DOSE POWDER 1 PUFF INHALATION TWICE A DAY TAKING ASPIR-81 81 MG TABLET DELAYED RELEASE 1 TABLET ORALLY ONCE A DAY TAKING ONETOUCH VERIO - STRIP 1 E11.8 FINGERSTICK BLOOD SUGAR TID TAKING GLUCOMETER ONE TOUCH - GLUCOMETER ICD:250.02 IDDM FSBS FOUR TIMES DAILY TAKING VOLTAREN 1 % GEL ONE APPLICATION TRANSDERMAL TO RIGHT HAND TID PRN TAKING GABAPENTIN 600 MG TABLET 1 CAPSULE ORALLY THREE TIMES A DAY MDD3 TAKING METAMUCIL FIBER 51.7 % PACKET ORALLY TAKING MIRALAX - PACKET 1 PACKET MIXED WITH 8 OUNCES OF FLUID ORALLY ONCE A DAY TAKING CYMBALTA 60 MG 1 TABLET ORALLY ONCE DAILY TAKING COMPAZINE 25MG 1 TAB ORALLY THREE TIMES DAILY NEEDED TAKING TAMSULOSIN HCL 0.4 MG CAPSULE 1 CAPSULE ORALLY ONCE A DAY TAKING LANTUS 100 UNIT/ML SOLUTION 20 UNITS SUBCUTANEOUS TWICE DAILY TAKING HUMALOG 100 UNIT/ML SOLUTION PER SLIDING SCALE SUBCUTANEOUS BEFORE MEALS MDD: 100 UNITS TAKING MECLIZINE HCL 25 MG TABLET 1 TABLET NEEDED ORALLY ONCE A DAY TAKING PROCHLORPERAZINE MALEATE 10 MG TABLET 1 TABLET ORALLY THREE TIMES A DAY TAKING CELEBREX 200 MG CAPSULE 1 CAPSULE WITH FOOD ORALLY FOR PAIN ONCE A DAY MDD1 TAKING ROZEREM 8 MG TABLET 1 TABLET AT BEDTIME NEEDED ORALLY BEFORE BEDTIME TAKING MAY USE CISAPRIDE 10 MG ORALLY QID MEDICATION LIST REVIEWED AND RECONCILED WITH THE PATIENT PAST MEDICAL HISTORY COPD SPIROMETRY 02/14/15 DIABETES MELLITUS TYPE 2 SINCE 1980 CHRONIC HEPATITIS C GENOTYPE 1A LIVER CIRRHOSIS F4, HEPATITIS A- HEPATITIS B NEGATIVE DIAGNOSED AGE 16 TREATED WITH HARVONI FOR 12 WEEKS 3-11/2014 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 DEJESUS) ORTHOSTATIC HYPOTENSION GASTROPARESIS (DR. ASHLEY AT [facility]) NEUROLOGIST: DR. SARAHI MOROCHO IN [place] NCOG: DR. VALLECILLO ([facility]) PAIN MANAGEMENT: DR. AYALA PODIATRY: DR. COULTER BILATERAL CARPAL TUNNEL RIGHT ULNARNERVE ENTRAPEMENT DUPUYTREN'S CONTRACTURE LEFT HAND ALLERGIES VERSED: PSYCHOTIC REACTION - ALLERGY PLASTIC OR VINYL TAPE: TEARS SKIN - ALLERGY SURGICAL HISTORY LIVER BIOPSY 2007 TONSILLECTOMY LEFT HAND SURGERY 08/16-08/17 COLONOSCOPY/ENDOSCOPY BY DR AGUILA 10/2013 DUPUYTREN'S CONTRACTURE RELEASE, LEFT HAND 01/26 COLONOSCOPY: NONTHROMBOSED EXTERNAL HEMORRHOIDS IN PERIANAL, INTERNAL HEMORRHOIDS 01/22/2016 EGD: NORMAL ESOPHAGUS, STOMACH, DUODENUM JANUARY 2016 FAMILY HISTORY FATHER: 78 YRS, HEART FAILURE, CVA, , [place], DIAGNOSED WITH STROKE MOTHER: 63 YRS, HEART FAILURE, [place], HTN, THROAT CANCER, HYPERTENSION, HEART DISEASE SIBLINGS: ALIVE 62 YRS, QUARDPLE BYPASS 1 BROTHER(S) . 3 SON(S) , 1 DAUGHTER(S) - HEALTHY. SOCIAL HISTORY GENERAL: TOBACCO USE ARE YOU A:FORMER SMOKER HOW LONG HAS IT BEEN SINCE YOU LAST SMOKED?> 10 YEARS OTHERS AT HOME: SPOUSE. 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 DIET: CONSISTENT CARBOHYDRATES. LANGUAGE IRANIAN. BMI CARE GOAL FOLLOW-UP ABOVE NORMAL BMI FOLLOW-UPDIETARY MANAGEMENT EDUCATION, GUIDANCE, AND COUNSELING RECREATIONAL DRUG USE DENIES. EXERCISE: NONE. LEARNING BARRIERS / SPECIAL NEEDS BARRIERS TO LEARNING?NO HEARING IMPAIRED?NO VISION IMPAIRED?YES COGNITIVELY IMPAIRED?NO :CORRECTIVE LENSES READINESS TO LEARN?YES LEARNING PREFERENCES?YES :DEMONSTRATION/VERBAL INSTRUCTION LEARNING CAPABILITIES PRESENT?YES EMOTIONAL BARRIERS?NO LUNG CANCER SCREENING SMOKING STATUS:FORMER SMOKER PAIN CLINIC PFS, CLERGY, PUBLIC HEALTH REFERRALS WAS THE PROVIDER NOTIFIED OF ANY PERTINENT INFO?YES HAS THE PATIENT BEEN EDUCATED REGARDING HIS/HER PLAN OF CARE?YES REVIEWED DIAGNOSTIC FACET WITH PATIENT. CM REVIEWED RADIOFREQUENCY WITH PATIENT. CM HAS THE PATIENT BEEN EDUCATED REGARDING PAIN, THE RISK FOR PAIN, THE IMPORTANCE OF EFFECTIVE PAIN MANAGEMENT, AND THE PAIN ASSESSMENT PROCESS?YES LATEX QUESTIONNAIRE LATEX ALLERGY : HAVE YOU EVER DEVELOPED ANY TYPE OF REACTION AFTER HANDLING LATEX PRODUCTS SUCH RUBBER GLOVES, CONDOMS, DIAPHRAGMS, BALLOONS, SOCKS, OR UNDERWEAR?NO LATEX ALLERGY : HAVE YOU EVER DEVELOPED ANY TYPE OF REACTION DURING OR AFTER DENTAL APPOINTMENT, VAGINAL/RECTAL EXAMINATION, SURGICAL PROCEDURE, OR ANY OTHER EXPOSURE?NO DATE ASKED : 08/26/2018 LATEX RISK : HAVE YOU EVER HAD ANY DIFFICULTY BREATHING OR HIVES AFTER EATING OR HANDLING ANY FRUITS, OR VEGETABLES; SUCH KIWI, BANANAS, STONE FRUITS, OR CHESTNUTSNO LATEX RISK : DO YOU HAVE A PREVIOUS PERSONAL HISTORY OF MORE THAN NINE SURGERIES, SPINA BIFIDA, OR REPEATED CATHERTIZATIONS? NO LATEX RISK : ARE YOU FREQUENTLY EXPOSED TO LATEX PRODUCTS IN YOUR OCCUPATION?NO CAFFEINE 6 GLASSES OF TEA / DAY. ADVANCE DIRECTIVE ADVANCE DIRECTIVE DISCUSSED WITH PATIENT:YES PATIENT DECLINED HCP INFO AND ASSISTANCE WITH FORM AT THIS TIME. [id number] PROTESTANT MARITAL STATUS: . ALCOHOL SCREENING DID YOU HAVE A DRINK CONTAINING ALCOHOL IN THE PAST YEAR?YES HOW MANY DRINKS DID YOU HAVE ON A TYPICAL DAY WHEN YOU WERE DRINKING IN THE PAST YEAR?5 OR 6 (2 POINTS) HOW OFTEN DID YOU HAVE A DRINK CONTAINING ALCOHOL IN THE PAST YEAR?TWO TO THREE TIMES PER WEEK (3 POINTS) POINTS5 INTERPRETATIONPOSITIVE OCCUPATION: DISABLED.. SEXUAL HX HAD SEX IN THE LAST 12 MONTHS (VAGINAL, ORAL, OR ANAL)?NO REVIEWED WITH PT 07/23/18 1118 BVREVIEWED WITH PT 08/26/18 1108 LASREVIEWED WITH PATIENT 10/28/18 1525 JS. HOSPITALIZATION/MAJOR DIAGNOSTIC PROCEDURE ACUTE SMALL/MEDIUM R POSTERIOR TEMPORAL AND PARIETAL STROKE 11/08/2014 DUE TO STROKE- 4 DAYS 11/2014 MRSA 2011, , IM[facility]: SUICIDAL THOUGHTS 01/2015 ANXIETY AND DEPRESSION 06/11/2015 [facility] 02/15/16-02/22/[address] [facility] FOR ORTHOSTATIC HYPOTENSION 10/25- 10/27 REVIEW OF SYSTEMS REVIEWED BY: PROVIDER: ANGUS AYALA MD . CONSTITUTIONAL: ANY CHANGE IN YOUR MEDICAL CONDITION? YES, STATES NEW DIAGNOSES OF BILATERAL CARPAL TUNNEL, RIGHT ULNAR NERVE ENTRAPMENT, AND DUPUYTREN'S CONTRACTURE TO LEFT HAND . CHILLS NO . FEVER NO . INFECTION: DO YOU HAVE NEW INFECTIONS? NO . DO YOU HAVE HISTORY OF MRSA? YES, HISTORY OF MRSA, NO CURRENT MRSA INFECTION . MUSCULOSKELETAL: ANY NEW PATTERNS OF PAIN OR NUMBNESS? YES, NEW PAIN TO HANDS AND RIGHT ARM . GASTROENTEROLOGY: ANY NEW CHANGE IN BOWEL CONTROL? NO . GENITOURINARY: ANY NEW CHANGE IN BLADDER CONTROL? NO . IS THERE A CHANCE YOU COULD BE ? NO . HEMATOLOGY/LYMPH: DO YOU TAKE ANY BLOOD THINNERS? (FOR EXAMPLE- COUMADIN, PLAVIX, AGGRENOX, PLATEL, PRADAXA, OR XARELTO) NO . WHEN WAS YOUR LAST DOSE? DATE: TIME: . NEUROLOGY: HAVE YOU FALLEN IN THE PAST 12 MONTHS? YES, STATES FALL 2 WEEKS AGO DUE TO ORTHOSTATIC HYPOTENSION, LEGS WENT OUT ON HIM. SCRAPPED HIS LOWER BACK. STATES NO ED VISIT, NO OTHER INJURIES . ANY NEW EXTREMITY NUMBNESS OR WEAKNESS? YES, STATES NEW/WORSENING HAND NUMBNESS, TINGLING, AND WEAKNESS . CARDIOLOGY: DO YOU HAVE A PACEMAKER OR DEFIBRILLATOR? NO . RESPIRATORY: HAVE YOU BEEN SICK IN THE PAST WEEK? NO . FEVER NO . FLU LIKE SYMPTOMS? NO . COUGH NO . INTEGUMENTARY: DO YOU HAVE ANY RASHES OR OPEN SORES? NO . ALLERGIC/IMMUNO: ARE YOU ALLERGIC TO IV DYE? NO . ANY NEW ALLERGIES? NO . PSYCHIATRIC: DO YOU HAVE THOUGHTS OF HURTING YOURSELF OR SOMEONE ELSE? NO . ARE YOU ABUSED, NEGLECTED, OR IN AN UNSAFE ENVIRONMENT? NO . ENDOCRINOLOGY: ARE YOU DIABETIC? YES . OTHER: DO YOU NEED ANY PRESCRIPTIONS? YES . IF YES, PLEASE LIST: ____CELEBREX AND FLEXERIL . ANY NEW PROBLEMS WITH YOUR MEDICATIONS? NO . WHEN DID YOU LAST EAT? ____ . WHEN DID YOU LAST DRINK? ____ . WHAT DID YOU LAST DRINK? ____ . NAME OF PERSON DRIVING YOU HOME? ____ . DO YOU HAVE ANY OTHER QUESTIONS OR CONCERNS YES, STATES HE WOULD LIKE A LUMBAR EPIDURAL. ALSO WANTED TO MAKE DR. AYALA AWARE OF HIS NEW MEDICATION, CISAPRIDE, IT HAS A LOT OF DRUG INTERACTIONS. . VITAL SIGNS WT 176.4 LBS, HT 69 IN, BMI 26.05 INDEX, BP 121/84 MM HG, HR 99 /MIN, RR 18 /MIN, TEMP 97.8 F, OXYGEN SAT % 97%, SAFE IN ENV? (Y/N) YES, NA INITIALS SC 14:53, REVIEWED BY: RAFA. EXAMINATION GENERAL EXAMINATION: PATIENT IS ALERT O X 3 AND COOPERATIVE. ANTALGIC GAIT. PATIENT IS USING A CANE AND IS LIMPING FROM HIS RIGHT LEG. RIGHT LEG IS WEAKER AT EXTENSION AND FLEXION. STRAIGHT LEG RAISE OF BOTH LEGS IS POSITIVE FOR RADICULOPATHY. MRI OF THE LUMBAR SPINE DONE ON 06/13/2017 SHOWS BULGING DISC AT L5-S1 AND CENTRAL CANAL STENOSIS AT L2-L3 AND L3-L4 LEVELS. ASSESSMENTS INTERVERTEBRAL DISC DISORDER WITH RADICULOPATHY OF LUMBAR REGION - M51.16 (PRIMARY) SPINAL STENOSIS OF LUMBAR REGION, UNSPECIFIED WHETHER NEUROGENIC CLAUDICATION PRESENT - M48.061 TREATMENT INTERVERTEBRAL DISC DISORDER WITH RADICULOPATHY OF LUMBAR REGION CLINICAL NOTES: WE DISCUSSED SEVERAL ISSUES WITH MR. ROMEO'S PAIN MANAGEMENT CASE. DUE TO THE LUMBAR RADICULOPATHY, I WOULD LIKE TO MOVE FORWARD WITH A L2-L3 LUMBAR EPIDURAL STEROID INJECTION AT THIS TIME. WE DISCUSSED THE BENEFITS, RISKS, AND ALTERNATIVES OF THE INJECTION AND THE PATIENT WOULD LIKE TO PROCEED. I ALSO HAD A MEDICATION MANAGEMENT DISCUSSION WITH THE PATIENT TODAY. THE PATIENT WILL FOLLOW UP IN SEVERAL WEEKS AFTER THE INJECTION. INSTRUCTIONS WERE GIVEN, QUESTIONS WERE ANSWERED, PATIENT REPORTS UNDERSTANDING AND AGREES WITH THE PLAN. I, ELIAZAR ZARCO, DOCUMENTED THE ABOVE INFORMATION ACTING A SCRIBE FOR DR. AYALA. I HAVE REVIEWED THE ABOVE DOCUMENT, WRITTEN BY ELIAZAR MARIOIBSangeeta AND I VERIFY THAT IT IS ACCURATE. . PROCEDURE CODES FA211 ESTABILISHED PATIENT [facility] FACILITY CHARGE [id number] CURRENT MEDS W/DOSAGES DOCUMENTED [id number] PAIN ASSESS POS TOOL F/U PLAN DOC DISPOSITION & COMMUNICATION FOLLOW UP 3 WEEKS (REASON: PLEAE BOOK EARLY IN MORNING. L2-L3 LUMBAR EPIDURAL) ELECTRONICALLY SIGNED BY ANGUS AYALA MD, MD ON 11/07/2018 AT 08:38 AM EDT DISCLAIMER : THIS IS A VISIT SUMMARY EXTRACTED FROM THE [employer] CHART. IT IS NOT A COPY OF THE [employer] PROGRESS NOTE. ALPA
== END ==
LOC: M PAIN 14:45
PROVIDERS: ATTEND Anesthesiology
DX: M51.16 Intervertebral disc disorders with radiculopathy, lumbar region (principal); M48.061 Spinal stenosis, lumbar region without neurogenic claudication; G89.29 Other chronic pain; J44.9 Chronic obstructive pulmonary disease, unspecified; E11.9 Type 2 diabetes mellitus without complications; K31.84 Gastroparesis; Z79.82 Long term (current) use of aspirin; Z79.4 Long term (current) use of insulin; Z79.899 Other long term (current) drug therapy; Z88.8 Allergy status to other drugs, medicaments and biological substances; Z91.09 Other allergy status, other than to drugs and biological substances; Z86.59 Personal history of other mental and behavioral disorders; Z86.19 Personal history of other infectious and parasitic diseases; Z87.891 Personal history of nicotine dependence; Z86.73 Personal history of transient ischemic attack (TIA), and cerebral infarction without residual deficits; Z86.14 Personal history of Methicillin resistant Staphylococcus aureus infection

== ENCOUNTER → 2019-02-09 | Outpatient (CLI) | payer MEDICAID ==
[~2019-02-09] MED LIST changes: -ACET32TAB PO; -DULO1CAP3 PO; +DULO1CAP6 PO; +MAPA325T4 PO; +MM S100C PO; -OMEP20CA3 PO; +OMEP20CA4 PO; -STOO100C PO; -TRAZ-160 PO; +TRAZ-252 PO; +TRAZ1TAB10 PO; +TRAZ1TAB11 PO; -TRAZ25TA PO; -TRAZO50TA PO
[2019-02-09 09:32] LABS: BLOOD UREA NITROGEN 16 MG/DL (7-18); CALCIUM LEVEL 9.3 MG/DL (8.8-10.2); CARBON DIOXIDE LEVEL 21 MEQ/L (21-32); CHLORIDE LEVEL 102 MEQ/L (98-107); CHOLESTEROL LEVEL 168 MG/DL (<200); CREATININE FOR GFR 0.76 MG/DL (0.70-1.30); GLOMERULAR FILTRATION RATE > 60.0 (>49); GLUCOSE, FASTING 267 MG/DL (70-100); HDL CHOLESTEROL 76 MG/DL (>40); LDL CHOLESTEROL 61 MG/DL (<100); NON-HDL-C 92 MG/DL; POTASSIUM SERUM 4.5 MEQ/L (3.5-5.1); SODIUM LEVEL 135 MEQ/L (136-145); TRIGLYCERIDES LEVEL 153 MG/DL (<150)
[2019-02-09 09:55] LABS: MAU/CREAT RATIO 563.3 MCG/MG (0.0-30.0)
[2019-02-09 10:21] LABS: HEMOGLOBIN A1c 8.8 %
[2019-02-11 14:28] LABS: AFP TUMOR TOTAL 2.4 ng/mL (0.0-8.0)
== END ==
LOC: M LAB 07:48
PROVIDERS: ATTEND Obstetrics & Gynecology
DX: E11.43 Type 2 diabetes mellitus with diabetic autonomic (poly)neuropathy (principal); K74.60 Unspecified cirrhosis of liver; E78.00 Pure hypercholesterolemia, unspecified

== ENCOUNTER → 2019-02-09 | Outpatient (CLI) | payer MEDICAID ==
[2019-02-09 09:03] LABS: HEMOGLOBIN 17.1 g/dl (13.5-17.5); MEAN CORPUSCULAR HEMOGLOBIN 31.4 pg (27.0-33.0); MEAN CORPUSCULAR HGB CONC 35.6 g/dl (32.0-36.5); MEAN CORPUSCULAR VOLUME 88.1 fl (80.0-96.0); PLATELET COUNT, AUTOMATED 174 10^3/uL (150-450); RED BLOOD COUNT 5.45 10^6/uL (4.30-6.10)
[2019-02-09 09:21] LABS: ALBUMIN 4.1 GM/DL (3.2-5.2); ALT/SGPT 42 U/L (12-78); BILIRUBIN,DIRECT 0.3 MG/DL (0.0-0.2); BILIRUBIN,TOTAL 0.8 MG/DL (0.2-1.0); BLOOD UREA NITROGEN 16 MG/DL (7-18); CALCIUM LEVEL 9.5 MG/DL (8.8-10.2); CARBON DIOXIDE LEVEL 21 MEQ/L (21-32); CHLORIDE LEVEL 102 MEQ/L (98-107); CREATININE FOR GFR 0.78 MG/DL (0.70-1.30); GLOMERULAR FILTRATION RATE > 60.0 (>49); GLUCOSE, FASTING 260 MG/DL (70-100); MAGNESIUM LEVEL 2.3 MG/DL (1.8-2.4); PHOSPHORUS LEVEL 4.3 MG/DL (2.5-4.9); POTASSIUM SERUM 4.4 MEQ/L (3.5-5.1); SODIUM LEVEL 136 MEQ/L (136-145); TOTAL PROTEIN 7.1 GM/DL (6.4-8.2)
== END ==
LOC: M LAB 07:51
PROVIDERS: ATTEND Internal Medicine Gastroenterology
DX: E11.43 Type 2 diabetes mellitus with diabetic autonomic (poly)neuropathy (principal); K31.84 Gastroparesis

== ENCOUNTER → 2019-02-09 | Outpatient (CLI) | payer MEDICAID, OTHER ==
--- NOTE | 2019-02-09 12:07 | REP ---
Right upper quadrant abdominal ultrasound. The the patient has known cirrhosis. Comparison is 08/03/2018. There is no cholelithiasis, gallbladder wall thickening or pericholecystic fluid. The hepatic parenchyma is heterogeneous. This is unchanged and compatible with diffuse hepatocellular disease. There are three subtle focal zones of hyperechogenicity, not present previously, in the hepatic left lobe measuring 3.2 x 2.0 x 2.5 cm, 2.1 x 1-1 x 2.5 cm, and 2.7 x 3.0 by a 0.3 cm. The the new appearance of these echogenic foci is concerning this patient with a history of cirrhosis. Hepatic MRI might be considered to evaluate for hepatic masses. There is no intrahepatic or extrahepatic biliary duct dilatation. The common biliary duct measures 3.8 mm in diameter. The visualized area of the pancreatic head is unremarkable. The right kidney is normal size measuring 12.3 x 5.5 x 5.5 cm. There are three right renal cysts, two in the upper pole measuring 1.1 x 1.0 x 1-2 cm and 0.8 x 0.5 x 0.7 cm. There is a single cyst in the lower pole measuring 1.1 x 0.9 x 1.0 cm. There is no right upper quadrant free fluid. Impression: There are three focal zones of hyperechogenicity in the hepatic left lobe as an interval change. In this patient with history of cirrhosis. There is concern for hepatic masses. Consider a follow-up hepatic MRI for further evaluation. There are three right renal cysts as described. Portions of the pancreas are obscured by bowel gas. Electronically Signed by Case Toney MD 02/09/2019 08:12 A
== END ==
LOC: M RAD 06:54
PROVIDERS: ATTEND Obstetrics & Gynecology
DX: K74.60 Unspecified cirrhosis of liver (principal)

== ENCOUNTER → 2019-02-28 | Outpatient (CLI) | payer MEDICAID ==
[~2019-02-28] MED LIST changes: +CODE30TA PO; +CYCL10TA PO; +DICL1GEL3 TOP; +GABA800T4 PO; +ISOVUE-370 76% 100ML VIAL (Q9967) As Ordered ONE; -MECL-68 PO; +MECL-86 PO; +MECL1TAB31 PO; +OMEP1CAP73 PO; -OMEP20CA4 PO; +ROZE8TAB16 PO; +TAMS1CAP17 PO; -TRAZ10TA PO; +TRAZ1TAB12 PO; +[UNRECOGNIZED DRUG - OTHER] PO; +[UNRECOGNIZED DRUG - OTHER] PO
--- NOTE | 2019-02-28 15:53 | REP ---
CT of the abdomen, pelvis not included, without and with IV contrast, without bowel contrast for evaluation of liver lesion: Comparison is 07/27/2017 CT and 08/31/2017 hepatic MRI. On the comparison CT. The too faintly visible enhancing zones are identified inferiorly in the left lobe of the liver questionably hepatic masses. MRI was recommended. The follow-up MRI. There were no hepatic masses. On the study today these to zones of enhancement inferior left lobe of the liver are no longer present. The margin of the liver is mildly nodular can clinical history of cirrhosis. No hepatic masses are identified otherwise. There is no biliary duct dilatation. The gallbladder is unremarkable. There is no ascites. The gallbladder, pancreas and spleen are unremarkable. The adrenals are unremarkable. There are a few small Bosniak type 1 renal cortical cysts. These are unchanged. There are no renal calculi. There is no hydronephrosis. The abdominal aorta is unremarkable except for calcified atheroma. The visualized bowel and mesentery are unremarkable. Impression: The hepatic margin is mildly nodular compatible with the clinical history of cirrhosis. There are no hepatic masses. The previously suspected masses are no longer present and no hepatic masses were identified on hepatic MRI. There are a few small renal cortical cysts. There is no ascites. Otherwise, negative CT study of the abdomen. The pelvis is not included. Electronically Signed by Case Toney MD 02/28/2019 03:45 P
== END ==
LOC: M RAD 14:40
PROVIDERS: ATTEND Obstetrics & Gynecology
DX: K74.60 Unspecified cirrhosis of liver (principal); K76.9 Liver disease, unspecified

== ENCOUNTER → 2019-04-07 | Outpatient (REF) | payer MEDICAID ==
[~2019-04-07] MED LIST changes: -CODE30TA PO; -CYCL10TA PO; -DICL1GEL3 TOP; -GABA800T4 PO; -ISOVUE-370 76% 100ML VIAL (Q9967) As Ordered ONE; +MECL-68 PO; -MECL-86 PO; -MECL1TAB31 PO; -OMEP1CAP73 PO; +OMEP20CA4 PO; -ROZE8TAB16 PO; -TAMS1CAP17 PO; +TRAZ10TA PO; -TRAZ1TAB12 PO; -[UNRECOGNIZED DRUG - OTHER] PO; -[UNRECOGNIZED DRUG - OTHER] PO
[2019-04-07 18:18] LABS: ALBUMIN 3.7 GM/DL (3.2-5.2); BLOOD UREA NITROGEN 18 MG/DL (7-18); CALCIUM LEVEL 9.1 MG/DL (8.8-10.2); CARBON DIOXIDE LEVEL 29 MEQ/L (21-32); CHLORIDE LEVEL 101 MEQ/L (98-107); CREATININE FOR GFR 0.88 MG/DL (0.70-1.30); GLOMERULAR FILTRATION RATE > 60.0 (>49); GLUCOSE, FASTING 274 MG/DL (70-100); MAGNESIUM LEVEL 1.9 MG/DL (1.8-2.4); PHOSPHORUS LEVEL 2.9 MG/DL (2.5-4.9); SODIUM LEVEL 138 MEQ/L (136-145); URIC ACID 3.8 MG/DL (3.5-7.2)
[2019-04-07 18:22] LABS: APPEARANCE, URINE CLEAR (CLEAR); BACTERIA, URINE AUTO NEGATIVE (NEGATIVE); BASO % 0.3 % (0.0-1.0); BILIRUBIN, URINE AUTO NEGATIVE (NEGATIVE); BLOOD, URINE BLOOD 1+ (NEGATIVE); COLOR, URINE YELLOW (YELLOW); EOS # 0.1 10^3/uL (0.0-0.5); EOS % 2.1 % (0.0-3.0); GLUCOSE, URINE (UA) AUTO 3+ mg/dL (NEGATIVE); HEMATOCRIT 48.3 % (42.0-52.0); HEMOGLOBIN 16.7 g/dl (13.5-17.5); KETONE, URINE AUTO 1+ mg/dL (NEGATIVE); LEUKOCYTE ESTERASE, URINE AUTO NEGATIVE (NEGATIVE); LYMPH # 1.9 10^3/uL (1.5-5.0); LYMPH % 28.7 % (24.0-44.0); MEAN CORPUSCULAR HEMOGLOBIN 32.7 pg (27.0-33.0); MEAN CORPUSCULAR HGB CONC 34.6 g/dl (32.0-36.5); MEAN CORPUSCULAR VOLUME 94.5 fl (80.0-96.0); MONO # 0.8 10^3/uL (0.0-0.8); MONO % 11.7 % (0.0-5.0); MUCUS, URINE SMALL (NEGATIVE); NEUTROPHILS # 3.8 10^3/uL (1.5-8.5); NEUTROPHILS % 56.9 % (36.0-66.0); NITRITE, URINE AUTO NEGATIVE (NEGATIVE); PLATELET COUNT, AUTOMATED 144 10^3/uL (150-450); PROTEIN, URINE AUTO 2+ mg/dL (NEGATIVE); RBC, URINE AUTO 2 /HPF (0-3); RED BLOOD COUNT 5.11 10^6/uL (4.30-6.10); SPECIFIC GRAVITY URINE AUTO 1.033 (1.002-1.035); SQUAMOUS EPITHELIAL CELL UR AU 0 /HPF (0-6); UROBILINOGEN, URINE AUTO 0.2 mg/dL (0.0-2.0); WBC, URINE AUTO 1 /HPF (0-3); WHITE BLOOD COUNT 6.7 10^3/uL (4.0-10.0)
[2019-04-07 18:30] LABS: PTH INTACT 28.9 PG/ML (18.5-88.0)
[2019-04-07 18:49] LABS: MAU/CREAT RATIO 227.6 MCG/MG (0.0-30.0); TOTAL PROTEIN,RANDOM URINE 49.7 MG/DL (0.0-12.0)
== END ==
LOC: M LAB REF 17:14
PROVIDERS: ATTEND Internal Medicine Nephrology
DX: E11.9 Type 2 diabetes mellitus without complications (principal); I10 Essential (primary) hypertension; N25.81 Secondary hyperparathyroidism of renal origin; R80.9 Proteinuria, unspecified

== ENCOUNTER → 2019-04-19 | Outpatient (CLI) | payer MEDICAID ==
--- NOTE | 2019-05-03 05:06 | ECWPNPC ---
PATIENT NAME: JUANA ROMEO : 1960 GENDER: MALE VISIT DATE: 04/19/2019 DISCHARGE DATE: 04/19/19 0000 VISIT LOCKED DATE TIME: PHYSICIAN: ANGUS AYALA MD RESOURCE: ANGUS AYALA MD REASON FOR APPOINTMENT 1. MEDS HISTORY OF PRESENT ILLNESS HISTORY OF PRESENT ILLNESS: PAIN THE PATIENT DESCRIBES THE PAIN... 58 YEAR OLD MALE PATIENT WITH A HISTORY OF CHRONIC NECK AND LOW BACK PAIN. THE PATIENT DESCRIBES THE PAIN SHARP, STABBING, SHOOTING, DAILY, AND CONTINUOUS WITH A PAIN SCORE OF 6-10/10 DEPENDING ON PHYSICAL ACTIVITY. THE PATIENT SAYS HE HAS BEEN SUFFERING FROM HIS PAIN FOR A LONG TIME AND IT IS AFFECTING HIS ABILITY TO PERFORM HIS DAILY ACTIVITIES SUCH MOVING AROUND, GROCERY SHOPPING, AND WORKING AROUND HIS HOUSE. THE PATIENT SAYS HE HAS TRIED TRAMADOL IN THE PAST, BUT IT CAUSED HEADACHES FOR HIM. THE PATIENT MENTIONS HE HAS MULTIPLE MEDICAL PROBLEMS, INCLUDING STOMACH AND KIDNEY CONDITIONS. PATIENT DENIES UNEXPLAINABLE WEIGHT LOSS, FEVER, CHILLS, NEW CHANGES ON HIS URINARY OR BOWEL CONTROL. FALL RISK SCREENING: SCREENING :NO FALLS REPORTED IN THE LAST YEAR CURRENT MEDICATIONS TAKING ROLLING WALKER 1 1 WITH BRAKES DX:M47.817 DAILY MED#[id number] TAKING GLUCOMETER ONE TOUCH - GLUCOMETER ICD:250.02 IDDM FSBS FOUR TIMES DAILY TAKING MAY USE CISAPRIDE 10 MG ORALLY QID TAKING LIDOCAINE HCL 2 % GEL 1 APPLICATION TO AFFECTED AREA NEEDED EXTERNALLY THREE TIMES A DAY TO ULCERATION IN MOUTH TAKING ATORVASTATIN CALCIUM 10 MG TABLET TAKE ONE TABLET BY MOUTH EVERY DAY TAKING CELEBREX 200 MG CAPSULE 1 CAPSULE WITH FOOD ORALLY FOR PAIN ONCE A DAY MDD1 TAKING CYCLOBENZAPRINE HCL 10 MG TABLET 1 TABLET NEEDED ORALLY FOR SPASMS AND PAIN EVERY 6 HOURS NEEDED MDD3 TAKING ONETOUCH VERIO - STRIP 1 E11.8 FINGERSTICK BLOOD SUGAR TID TAKING ONETOUCH DELICA LANCETS 1 1 LANCET E11.8 FINGERSTICK BLOOD GLUCOSE, TID TAKING LANTUS 100 UNIT/ML SOLUTION 20 UNITS SUBCUTANEOUS TWICE DAILY TAKING HUMALOG 100 UNIT/ML SOLUTION PER SLIDING SCALE SUBCUTANEOUS BEFORE MEALS MDD: 100 UNITS TAKING MECLIZINE HCL 25 MG TABLET 1 TABLET NEEDED ORALLY ONCE A DAY TAKING ALBUTEROL SULFATE HFA 108 (90 BASE) MCG/ACT AEROSOL SOLUTION 2 PUFFS INHALATION EVERY 4 HOURS NEEDED TAKING ADVAIR DISKUS 500-50 MCG/DOSE POWDER 1 PUFF INHALATION TWICE A DAY TAKING ASPIR-81 81 MG TABLET DELAYED RELEASE 1 TABLET ORALLY ONCE A DAY TAKING VOLTAREN 1 % GEL ONE APPLICATION TRANSDERMAL TO RIGHT HAND TID PRN TAKING GABAPENTIN 600 MG TABLET 1 CAPSULE ORALLY THREE TIMES A DAY MDD3 TAKING METAMUCIL FIBER 51.7 % PACKET DIRECTED ORALLY TAKING MIRALAX - PACKET 1 PACKET MIXED WITH 8 OUNCES OF FLUID ORALLY ONCE A DAY TAKING CYMBALTA 60 MG 1 TABLET ORALLY ONCE DAILY TAKING TAMSULOSIN HCL 0.4 MG CAPSULE 1 CAPSULE ORALLY ONCE A DAY TAKING ROZEREM 8 MG TABLET 1 TABLET AT BEDTIME NEEDED ORALLY BEFORE BEDTIME MEDICATION LIST REVIEWED AND RECONCILED WITH THE PATIENT PAST MEDICAL HISTORY COPD SPIROMETRY 02/14/15 DIABETES MELLITUS TYPE 2 SINCE 1980 CHRONIC HEPATITIS C GENOTYPE 1A LIVER CIRRHOSIS F4, HEPATITIS A- HEPATITIS B NEGATIVE DIAGNOSED AGE 16 TREATED WITH HARVONI FOR 12 WEEKS 3-11/2014 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 DEJESUS) -2017 ORTHOSTATIC HYPOTENSION GASTROPARESIS (DR. ASHLEY AT [facility]) NEUROLOGIST: DR. SARAHI MOROCHO [place] N[facility]: DR. VALLECILLO ([facility]) PAIN MANAGEMENT: DR. AYALA PODIATRY: DR. COULTER BILATERAL CARPAL TUNNEL RIGHT ULNARNERVE ENTRAPEMENT DUPUYTREN'S CONTRACTURE LEFT HAND KIDNEY FAILURE LEFT SIDE STAGE 2 ALLERGIES VERSED: PSYCHOTIC REACTION - ALLERGY PLASTIC OR VINYL TAPE: TEARS SKIN - ALLERGY SURGICAL HISTORY LIVER BIOPSY 2008 TONSILLECTOMY LEFT HAND SURGERY 08/16-08/17 COLONOSCOPY/ENDOSCOPY BY DR AGUILA 10/2013 DUPUYTREN'S CONTRACTURE RELEASE, LEFT HAND 01/26 COLONOSCOPY: NONTHROMBOSED EXTERNAL HEMORRHOIDS IN PERIANAL, INTERNAL HEMORRHOIDS 01/22/2016 EGD: NORMAL ESOPHAGUS, STOMACH, DUODENUM JANUARY 2016 CARPAL TUNNEL RELEASE AND ULNER NERVE (RIGHT) 11/2018 FAMILY HISTORY FATHER: 78 YRS, HEART FAILURE, CVA, , [place], DIAGNOSED WITH UNSPECIFIED CEREBRAL ARTERY OCCLUSION WITH CEREBRAL INFARCTION MOTHER: 63 YRS, HEART FAILURE, [place], HTN, THROAT CANCER, HYPERTENSION, UNSPECIFIED HEART DISEASE SIBLINGS: ALIVE 62 YRS, [employer]ARDPLE BYPASS 1 BROTHER(S) . 3 SON(S) , 1 DAUGHTER(S) - HEALTHY. SOCIAL HISTORY GENERAL: TOBACCO USE ARE YOU A:FORMER SMOKER HOW LONG HAS IT BEEN SINCE YOU LAST SMOKED?> 10 YEARS OTHERS AT HOME: SPOUSE. 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 DIET: CONSISTENT CARBOHYDRATES. 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 BMI CARE GOAL FOLLOW-UP ABOVE NORMAL BMI FOLLOW-UPDIETARY MANAGEMENT EDUCATION, GUIDANCE, AND COUNSELING RECREATIONAL DRUG USE DENIES. EXERCISE: NONE. LEARNING BARRIERS / SPECIAL NEEDS BARRIERS TO LEARNING?NO HEARING IMPAIRED?NO VISION IMPAIRED?YES COGNITIVELY IMPAIRED?NO :CORRECTIVE LENSES READINESS TO LEARN?YES LEARNING PREFERENCES?YES :DEMONSTRATION/VERBAL INSTRUCTION LEARNING CAPABILITIES PRESENT?YES EMOTIONAL BARRIERS?NO LUNG CANCER SCREENING SMOKING STATUS:FORMER SMOKER PAIN CLINIC PFS, CLERGY, PUBLIC HEALTH REFERRALS WAS THE PROVIDER NOTIFIED OF ANY PERTINENT INFO?YES HAS THE PATIENT BEEN EDUCATED REGARDING HIS/HER PLAN OF CARE?YES REVIEWED DIAGNOSTIC FACET WITH PATIENT. CM REVIEWED RADIOFREQUENCY WITH PATIENT. CM HAS THE PATIENT BEEN EDUCATED REGARDING PAIN, THE RISK FOR PAIN, THE IMPORTANCE OF EFFECTIVE PAIN MANAGEMENT, AND THE PAIN ASSESSMENT PROCESS?YES LATEX QUESTIONNAIRE LATEX ALLERGY : HAVE YOU EVER DEVELOPED ANY TYPE OF REACTION AFTER HANDLING LATEX PRODUCTS SUCH RUBBER GLOVES, CONDOMS, DIAPHRAGMS, BALLOONS, SOCKS, OR UNDERWEAR?NO LATEX ALLERGY : HAVE YOU EVER DEVELOPED ANY TYPE OF REACTION DURING OR AFTER DENTAL APPOINTMENT, VAGINAL/RECTAL EXAMINATION, SURGICAL PROCEDURE, OR ANY OTHER EXPOSURE?NO LATEX RISK : HAVE YOU EVER HAD ANY DIFFICULTY BREATHING OR HIVES AFTER EATING OR HANDLING ANY FRUITS, OR VEGETABLES; SUCH KIWI, BANANAS, STONE FRUITS, OR CHESTNUTSNO LATEX RISK : DO YOU HAVE A PREVIOUS PERSONAL HISTORY OF MORE THAN NINE SURGERIES, SPINA BIFIDA, OR REPEATED CATHERIZATIONS? NO LATEX RISK : ARE YOU FREQUENTLY EXPOSED TO LATEX PRODUCTS IN YOUR OCCUPATION?NO DATE ASKED : 04/19/2019 CAFFEINE 6 GLASSES OF TEA / DAY. ADVANCE DIRECTIVE ADVANCE DIRECTIVE DISCUSSED WITH PATIENT:YES PATIENT DECLINED HCP INFO AND ASSISTANCE WITH FORM AT THIS TIME. TENRIISM [id number] MORAVIAN MARITAL STATUS: . ALCOHOL SCREENING DID YOU HAVE A DRINK CONTAINING ALCOHOL IN THE PAST YEAR?YES HOW MANY DRINKS DID YOU HAVE ON A TYPICAL DAY WHEN YOU WERE DRINKING IN THE PAST YEAR?5 OR 6 (2 POINTS) HOW OFTEN DID YOU HAVE A DRINK CONTAINING ALCOHOL IN THE PAST YEAR?TWO TO THREE TIMES PER WEEK (3 POINTS) POINTS5 INTERPRETATIONPOSITIVE OCCUPATION: DISABLED.. SEXUAL HX HAD SEX IN THE LAST 12 MONTHS (VAGINAL, ORAL, OR ANAL)?NO REVIEWED WITH PT 07/23/18 1118 BVREVIEWED WITH PT 08/26/18 1108 LASREVIEWED WITH PATIENT 10/28/18 1525 JS. HOSPITALIZATION/MAJOR DIAGNOSTIC PROCEDURE ACUTE SMALL/MEDIUM R POSTERIOR TEMPORAL AND PARIETAL STROKE 11/08/2014 DUE TO STROKE- 4 DAYS 11/2014 MRSA 2011, , [facility]: SUICIDAL THOUGHTS 01/2015 ANXIETY AND DEPRESSION 06/11/2015 [facility] 02/15/16-02/22/16 ADMITTED TO [facility] FOR ORTHOSTATIC HYPOTENSION 10/25- 10/27 REVIEW OF SYSTEMS REVIEWED BY: PROVIDER: ANGUS AYALA MD . CONSTITUTIONAL: ANY CHANGE IN YOUR MEDICAL CONDITION? YES, RECENTLY DIAGNOSED WITH STAGE 2 KIDNEY FAILURE . CHILLS NO . FEVER NO . INFECTION: DO YOU HAVE NEW INFECTIONS? NO . DO YOU HAVE HISTORY OF MRSA? YES, DIAGNOSED YEARS AGO IN ARM AND NECK, PT DOES NOT HAVE ANY OPEN WOUNDS AT THIS TIME, DS . MUSCULOSKELETAL: ANY NEW PATTERNS OF PAIN OR NUMBNESS? NO . GASTROENTEROLOGY: ANY NEW CHANGE IN BOWEL CONTROL? NO . GENITOURINARY: ANY NEW CHANGE IN BLADDER CONTROL? YES, PT STATES THAT HE IS BEING TESTED FOR BLADDER FUNCTION ISSUES, PT STATES THAT HE IS HAVING AN ISSUE WITH NOT BEING ABLE TO VOID. . IS THERE A CHANCE YOU COULD BE ? NO . HEMATOLOGY/LYMPH: DO YOU TAKE ANY BLOOD THINNERS? (FOR EXAMPLE- COUMADIN, PLAVIX, AGGRENOX, PLATEL, PRADAXA, OR XARELTO) NO . WHEN WAS YOUR LAST DOSE? DATE: TIME: . NEUROLOGY: HAVE YOU FALLEN IN THE PAST 12 MONTHS? YES, PT STATES THAT HE WAS HOME WHEN HE FELL, BRUISING FROM FALL, NO REPORT TO ED. DS . ANY NEW EXTREMITY NUMBNESS OR WEAKNESS? YES, PT NOTICING INCREASING WEAKNESS AND NUMBNESS IN BOTH HANDS . CARDIOLOGY: DO YOU HAVE A PACEMAKER OR DEFIBRILLATOR? NO . RESPIRATORY: HAVE YOU BEEN SICK IN THE PAST WEEK? NO . FEVER NO . FLU LIKE SYMPTOMS? NO . COUGH NO . INTEGUMENTARY: DO YOU HAVE ANY RASHES OR OPEN SORES? NO . ALLERGIC/IMMUNO: ARE YOU ALLERGIC TO IV DYE? NO . ANY NEW ALLERGIES? NO . PSYCHIATRIC: DO YOU HAVE THOUGHTS OF HURTING YOURSELF OR SOMEONE ELSE? NO . ARE YOU ABUSED, NEGLECTED, OR IN AN UNSAFE ENVIRONMENT? NO . ENDOCRINOLOGY: ARE YOU DIABETIC? YES, PT STATES THAT IS TAKING INSULIN . OTHER: DO YOU NEED ANY PRESCRIPTIONS? NO . IF YES, PLEASE LIST: ____ . ANY NEW PROBLEMS WITH YOUR MEDICATIONS? NO . WHEN DID YOU LAST EAT? ____ . WHEN DID YOU LAST DRINK? ____ . WHAT DID YOU LAST DRINK? ____ . NAME OF PERSON DRIVING YOU HOME? ____ . DO YOU HAVE ANY OTHER QUESTIONS OR CONCERNS NO . VITAL SIGNS WT 180.2 LBS, HT 69 IN, BMI 26.61 INDEX, BP 138/85 MM HG, HR 96 /MIN, RR 18 /MIN, TEMP 97.3 F, OXYGEN SAT % 96%, SAFE IN ENV? (Y/N) Y, NA INITIALS SC 15:39, REVIEWED BY: RICH. EXAMINATION GENERAL EXAMINATION: PATIENT IS ALERT O X 3 AND COOPERATIVE. TENDERNESS OVER THE PARASPINAL MUSCLE GROUP OF THE LOW BACK. PRESENCE OF BANDS OF TISSUE AND TRIGGER POINTS WITH RESTRICTION OF MOVEMENT OF THE LOW BACK. ASSESSMENTS MYALGIA, OTHER SITE - M79.18 (PRIMARY) CERVICALGIA - M54.2 TREATMENT MYALGIA, OTHER SITE CLINICAL NOTES: WE DISCUSSED SEVERAL ISSUES WITH MR. ROMEO'S PAIN MANAGEMENT CASE. DUE TO THE TRIGGER POINTS, BANDS OF TISSUE, AND RESTRICTION OF MOVEMENT, I WOULD LIKE TO MOVE FORWARD WITH A TRIGGER POINT INJECTION WITHOUT STEROIDS AT THIS TIME. WE DISCUSSED THE BENEFITS, RISKS, AND ALTERNATIVES OF THE INJECTION AND THE PATIENT WOULD LIKE TO PROCEED. I AM LOOKING FOR LONG LASTING PAIN RELIEF FROM THIS INJECTION FOR THE PATIENT. I WILL REFER THE PATIENT TO [facility] STAR PROGRAM FOR MEDICATION MANAGEMENT. I DO NOT WISH TO PRESCRIBE ANY NSAID'S FOR THE PATIENT DUE TO CURRENT STOMACH AND KIDNEY ISSUES. THE PATIENT HAS TRIED TRAMADOL IN THE PAST THAT CAUSED HEADACHES FOR HIM. THEREFORE, I WILL START THE PATIENT ON CODEINE SULFATE 30 MG ONE TABLET DAILY NEEDED FOR 7 DAYS. THE PATIENT WILL FOLLOW UP IN 3 TO 4 WEEKS. INSTRUCTIONS WERE GIVEN, QUESTIONS WERE ANSWERED, PATIENT REPORTS UNDERSTANDING AND AGREES WITH THE PLAN. I, ELIAZAR ZARCO, DOCUMENTED THE ABOVE INFORMATION ACTING A SCRIBE FOR DR. AYALA. I HAVE REVIEWED THE ABOVE DOCUMENT, WRITTEN BY ELIAZAR ZARCO SCRIBSangeeta AND I VERIFY THAT IT IS ACCURATE. . OTHERS START CODEINE SULFATE TABLET, 30 MG, 1 TABLET, ORALLY FOR PAIN, ONCE A DAY NEEDED FOR PAIN MDD1, 7 DAYS, 7, REFILLS 0 NOTES: CODEINE MATERIAL WAS PRINTED. PROCEDURE CODES G8427 CURRENT MEDS W/DOSAGES DOCUMENTED G8730 PAIN ASSESS POS TOOL F/U PLAN DOC FA211 ESTABILISHED PATIENT [facility] CHARGE DISPOSITION & COMMUNICATION FOLLOW UP 3-4 WEEKS (REASON: TPI NEEDED) ELECTRONICALLY SIGNED BY ANGUS AYALA MD, MD ON 05/02/2019 AT 05:28 PM EST DISCLAIMER : THIS IS A VISIT SUMMARY EXTRACTED FROM THE ECLINICALWORKS CHART. IT IS NOT A COPY OF THE ECLINICALWORKS PROGRESS NOTE. ALPA
== END ==
LOC: M PAIN 15:45
PROVIDERS: ATTEND Anesthesiology
DX: M79.18 Myalgia, other site (principal); M54.2 Cervicalgia; J44.9 Chronic obstructive pulmonary disease, unspecified; E11.9 Type 2 diabetes mellitus without complications; Z86.14 Personal history of Methicillin resistant Staphylococcus aureus infection; Z86.19 Personal history of other infectious and parasitic diseases; Z86.59 Personal history of other mental and behavioral disorders; Z87.891 Personal history of nicotine dependence; Z88.8 Allergy status to other drugs, medicaments and biological substances; Z91.09 Other allergy status, other than to drugs and biological substances; Z79.4 Long term (current) use of insulin; Z79.82 Long term (current) use of aspirin; Z79.899 Other long term (current) drug therapy

== ENCOUNTER 2019-05-13 23:15 | Emergency (ER) | payer MEDICAID ==
[~2019-05-13] VITALS: Ht 180.3 cm; Wt 79.5 kg
[2019-05-13] MEDS ORDERED: CYCL10TA PO (23:46)
[2019-05-13] MEDS ORDERED: TAMS1CAP17 PO (23:46)
[2019-05-13] MEDS ORDERED: ROZE8TAB16 PO (23:46)
[2019-05-13] MEDS ORDERED: MECL-86 PO (23:46)
[2019-05-13] MEDS ORDERED: [UNRECOGNIZED DRUG - OTHER] PO (23:46)
[2019-05-14] MEDS ORDERED: NS 500 ML IV ONE ×2 (00:30→01:45)
[2019-05-14 00:44] LABS: BASO % 0.6 % (0.0-1.0); EOS # 0.1 10^3/uL (0.0-0.5); EOS % 1.2 % (0.0-3.0); HEMATOCRIT 47.1 % (42.0-52.0); HEMOGLOBIN 16.5 g/dl (13.5-17.5); LYMPH # 2.3 10^3/uL (1.5-5.0); LYMPH % 33.3 % (24.0-44.0); MEAN CORPUSCULAR HEMOGLOBIN 31.8 pg (27.0-33.0); MEAN CORPUSCULAR VOLUME 90.8 fl (80.0-96.0); MONO # 0.7 10^3/uL (0.0-0.8); MONO % 10.5 % (0.0-5.0); NEUTROPHILS # 3.7 10^3/uL (1.5-8.5); NEUTROPHILS % 54.1 % (36.0-66.0); PLATELET COUNT, AUTOMATED 165 10^3/uL (150-450); RED BLOOD COUNT 5.19 10^6/uL (4.30-6.10); WHITE BLOOD COUNT 6.9 10^3/uL (4.0-10.0)
[2019-05-14 00:50] LABS: BLOOD UREA NITROGEN 14 MG/DL (7-18); CARBON DIOXIDE LEVEL 23 MEQ/L (21-32); CHLORIDE LEVEL 103 MEQ/L (98-107); CK-MB VALUE MASS 1.3 NG/ML (<3.6); CPK CREATINE PHOSPHOKINASE 94 U/L (39-308); CREATININE FOR GFR 0.98 MG/DL (0.70-1.30); GLOMERULAR FILTRATION RATE > 60.0 (>49); GLUCOSE, FASTING 372 MG/DL (70-100); MB/CK RELATIVE INDEX 1.38 (< OR =4); POTASSIUM SERUM 4.1 MEQ/L (3.5-5.1); SODIUM LEVEL 140 MEQ/L (136-145); TROPONIN I < 0.02 NG/ML (< 0.10)
[2019-05-14 03:01] VITALS: BP 162/95
[2019-05-14 03:33] LABS: CK-MB VALUE MASS 1.3 NG/ML (<3.6); CPK CREATINE PHOSPHOKINASE 91 U/L (39-308); MB/CK RELATIVE INDEX 1.43 (< OR =4); TROPONIN I < 0.02 NG/ML (< 0.10)
--- NOTE | 2019-05-14 05:23 | REP ---
Clinical: Dyspnea . Comparison: 10/22/2017 . Technique: PA and lateral. Findings: The mediastinum and cardiac silhouette are normal. The lung lezama are clear and without acute consolidation, effusion, or pneumothorax. The skeletal structures are intact and normal. Impression: 1. No acute cardiopulmonary process. Electronically Signed by Reji Thornton MD 05/14/2019 05:14 A
--- NOTE | 2019-05-15 07:24 | ECGEPIP ---
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
--- NOTE | 2019-05-15 07:31 | ECGEPIP ---
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
== END 2019-05-14 04:06 | disposition home or self-care (01) ==
LOC: M ED 23:15
DX: E11.65 Type 2 diabetes mellitus with hyperglycemia (principal); E86.0 Dehydration; R00.0 Tachycardia, unspecified; I10 Essential (primary) hypertension; K74.60 Unspecified cirrhosis of liver; K31.84 Gastroparesis; J44.9 Chronic obstructive pulmonary disease, unspecified; J45.909 Unspecified asthma, uncomplicated; Z87.891 Personal history of nicotine dependence; Z79.82 Long term (current) use of aspirin; Z79.4 Long term (current) use of insulin; Z79.899 Other long term (current) drug therapy; Z91.89 Other specified personal risk factors, not elsewhere classified; Z88.8 Allergy status to other drugs, medicaments and biological substances

== ENCOUNTER 2019-05-18 01:44 | Emergency (ER) | payer MEDICAID ==
[~2019-05-18] VITALS: Ht 180.3 cm; Wt 79.5 kg
[~2019-05-18 01:44] MED LIST changes: +CYCL10TA PO; +MECL-86 PO; +ROZE8TAB16 PO; +TAMS1CAP17 PO; +[UNRECOGNIZED DRUG - OTHER] PO
[2019-05-18 01:57] VITALS: BP 186/107
[2019-05-18] MEDS ORDERED: CYMB60CA3 PO (01:59)
[2019-05-18] MEDS ORDERED: CYCL10TA PO (01:59)
[2019-05-19] MEDS ORDERED: DICL1GEL3 TOP (15:09)
[2019-05-19] MEDS ORDERED: CODE30TA PO (15:09)
[2019-05-19] MEDS ORDERED: GABA800T4 PO (15:09)
[2019-05-19] MEDS ORDERED: [UNRECOGNIZED DRUG - OTHER] PO (15:09)
== END 2019-05-18 02:44 | disposition left against medical advice (07) ==
LOC: M ED 01:44
DX: Z53.21 Procedure and treatment not carried out due to patient leaving prior to being seen by health care provider (principal)

== ENCOUNTER 2019-05-19 11:59 | Inpatient (IN) | payer MEDICAID ==
[~2019-05-19] VITALS: Ht 180.3 cm; Wt 77.0 kg
[~2019-05-19 11:59] MED LIST changes: +OMEP-172 PO; -OMEP20CA4 PO
[2019-05-19 12:31] LABS: BASO # 0.1 10^3/uL (0.0-0.2); BASO % 0.3 % (0.0-1.0); HEMOGLOBIN 16.9 g/dl (13.5-17.5); LYMPH # 0.9 10^3/uL (1.5-5.0); LYMPH % 5.5 % (24.0-44.0); MEAN CORPUSCULAR HEMOGLOBIN 31.2 pg (27.0-33.0); MEAN CORPUSCULAR HGB CONC 31.9 g/dl (32.0-36.5); MEAN CORPUSCULAR VOLUME 97.8 fl (80.0-96.0); MONO # 0.9 10^3/uL (0.0-0.8); MONO % 5.3 % (0.0-5.0); NEUTROPHILS # 14.7 10^3/uL (1.5-8.5); NEUTROPHILS % 88.5 % (36.0-66.0); PLATELET COUNT, AUTOMATED 153 10^3/uL (150-450); RED BLOOD COUNT 5.42 10^6/uL (4.30-6.10); WHITE BLOOD COUNT 16.6 10^3/uL (4.0-10.0)
[2019-05-19 12:54] LABS: ALBUMIN 4.5 GM/DL (3.2-5.2); ALT/SGPT 49 U/L (12-78); BILIRUBIN,DIRECT 0.7 MG/DL (0.0-0.2); BILIRUBIN,TOTAL 1.8 MG/DL (0.2-1.0); BLOOD UREA NITROGEN 25 MG/DL (7-18); CALCIUM LEVEL 9.8 MG/DL (8.8-10.2); CARBON DIOXIDE LEVEL 11 MEQ/L (21-32); CHLORIDE LEVEL 92 MEQ/L (98-107); GLOMERULAR FILTRATION RATE 59.9 (>49); GLUCOSE, FASTING 480 MG/DL (70-100); LIPASE 936 U/L (73-393); POTASSIUM SERUM 4.1 MEQ/L (3.5-5.1); SODIUM LEVEL 136 MEQ/L (136-145); TOTAL PROTEIN 8.1 GM/DL (6.4-8.2)
[2019-05-19] MEDS ORDERED: NS 1,000 ML IV ONE ×2 (13:00→13:30)
[2019-05-19] MEDS ORDERED: ONDANSETRON 4MG/2ML VIAL (J2405) IV ONE (13:00)
[2019-05-19] MEDS ORDERED: ONDANSETRON 4MG/2ML VIAL (J2405) As Ordered ONE (13:02)
--- NOTE | 2019-05-19 13:25 | REP ---
Clinical: Diabetic ketoacidosis . Comparison: 05/14/2019 . Findings: The mediastinum and cardiac silhouette are stable and within normal limits for portable technique. The lung lezama are clear without acute consolidation, effusion, or pneumothorax. Skeletal structures are intact. Impression: No acute cardiopulmonary process appreciated. Electronically Signed by Reji Thornton MD 05/19/2019 01:16 P
[2019-05-19 13:30] LABS: ACETONE/KETONE > 46.00 MG/DL (<2.81)
[2019-05-19] MEDS ORDERED: ISOVUE-370 76% 100ML VIAL (Q9967) As Ordered ONE (13:33)
[2019-05-19] MEDS ORDERED: METOCLOPRAMIDE INJ 10MG/2ML VIAL (J2765) IV ONE (13:45)
[2019-05-19] MEDS ORDERED: INSULIN HUMAN REGULAR 100 UNITS in NS 99 ML IV SCH ×2 (13:52→21:03)
[2019-05-19 13:58] LABS: HEMOGLOBIN A1c 9.1 %
[2019-05-19] MEDS ORDERED: HumuLIN R (REGULAR) INSULIN (NovoLIN R) **100U/ML** PER UNIT IV ONE (14:00)
--- NOTE | 2019-05-19 14:22 | REP ---
Clinical: Pancreatitis. Technique: Axial contrast enhanced images from the lung bases to the pubic symphysis using 100 ml Isovue 370 intravenous contrast material with coronal and sagittal re-formations. Comparison: 02/28/2019. Findings: Lung bases are clear. Visualized heart and pericardium normal. Hepatomegaly and hepatic steatosis noted without focal hepatic lesion identified. Spleen, pancreas, gallbladder, bilateral adrenal glands and kidneys are essentially normal. Bilateral renal cysts again noted without hydronephrosis or obvious nephrolithiasis. Evaluation of the enteric system demonstrates a markedly distended stomach which may be transient. No evidence for bowel obstruction or obvious acute inflammatory process. Pelvis demonstrates normal bladder and age appropriate prostate/seminal vesicles. No ascites. No free air. No adenopathy. Atherosclerotic changes to the aorta without aneurysm or dissection. Musculoskeletal structures demonstrate age-related degenerative changes. Impression: 1. Hepatomegaly and hepatic steatosis without focal hepatic lesion. 2. Distended fluid-filled stomach likely transient and without further obvious pathology. 3. No further acute abdominopelvic pathology appreciated. 4. Chronic stable changes including renal cysts. Electronically Signed by Reji Thornton MD 05/19/2019 02:13 P
[2019-05-19] MEDS ORDERED: NS 500 ML IV ONE (14:30)
[2019-05-19] MEDS ORDERED: NS 1,000 ML IV SCH (15:05)
[2019-05-19] MEDS ORDERED: GABA800T4 PO (15:09)
[2019-05-19] MEDS ORDERED: [UNRECOGNIZED DRUG - OTHER] PO (15:09)
[2019-05-19] MEDS ORDERED: DICL1GEL3 TOP (15:09)
[2019-05-19] MEDS ORDERED: CODE30TA PO (15:09)
[2019-05-19] MEDS: MORPHINE 2 MG/ML 1ML VIAL (J2270) IV PRN ×2 (15:12→17:17)
[2019-05-19] MEDS ORDERED: INSULIN IV RATE CHANGE DOCUMENTATION ML/HR XX SCH (15:15)
[2019-05-19] MEDS: INSULIN IV RATE CHANGE DOCUMENTATION ML/HR XX SCH ×2 (15:21→16:19)
[2019-05-19 15:27] LABS: ETHYL ALCOHOL (ETHANOL) < 0.003 % (0.000-0.010)
[2019-05-19] MEDS ORDERED: MECLIZINE 25 MG TABLET PO PRN (15:30)
[2019-05-19 15:49] LABS: OSMOLALITY SERUM 330 MOSM/KG (275-295)
[2019-05-19 16:33] LABS: BLOOD UREA NITROGEN 26 MG/DL (7-18); CALCIUM LEVEL 8.4 MG/DL (8.8-10.2); CARBON DIOXIDE LEVEL 12 MEQ/L (21-32); CHLORIDE LEVEL 99 MEQ/L (98-107); GLOMERULAR FILTRATION RATE > 60.0 (>49); GLUCOSE, FASTING 327 MG/DL (70-100); PHOSPHORUS LEVEL 2.8 MG/DL (2.5-4.9); POTASSIUM SERUM 3.6 MEQ/L (3.5-5.1); SODIUM LEVEL 137 MEQ/L (136-145)
[2019-05-19 16:37] LABS: OSMOLALITY SERUM 319 MOSM/KG (275-295)
[2019-05-19] MEDS: GABAPENTIN 400 MG CAP PO SCH ×2 (17:16→20:32)
[2019-05-19 17:25] LABS: BLOOD UREA NITROGEN 25 MG/DL (7-18); CALCIUM LEVEL 7.7 MG/DL (8.8-10.2); CARBON DIOXIDE LEVEL 12 MEQ/L (21-32); CHLORIDE LEVEL 100 MEQ/L (98-107); CREATININE FOR GFR 1.05 MG/DL (0.70-1.30); GLOMERULAR FILTRATION RATE > 60.0 (>49); GLUCOSE, FASTING 294 MG/DL (70-100); PHOSPHORUS LEVEL 2.6 MG/DL (2.5-4.9); POTASSIUM SERUM 3.7 MEQ/L (3.5-5.1); SODIUM LEVEL 137 MEQ/L (136-145)
[2019-05-19 17:26] LABS: OSMOLALITY SERUM 313 MOSM/KG (275-295)
--- NOTE | 2019-05-19 18:13 | ECGEPIP ---
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
[2019-05-19] MEDS ORDERED: ONDANSETRON 4MG/2ML VIAL (J2405) IV PRN (19:00)
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
[2019-05-19] MEDS ORDERED: D5W 1,000 ML IV SCH (19:30)
[2019-05-19] MEDS: RAMELTEON 8 MG TAB (ROZEREM) PO SCH (20:32)
[2019-05-19] MEDS ORDERED: [UNRECOGNIZED DRUG - OTHER] PO SCH (21:00)
[2019-05-19 21:18] LABS: ACETONE/KETONE > 46.00 MG/DL (<2.81)
[2019-05-19 21:19] LABS: BLOOD UREA NITROGEN 23 MG/DL (7-18); CARBON DIOXIDE LEVEL 14 MEQ/L (21-32); CHLORIDE LEVEL 100 MEQ/L (98-107); CREATININE FOR GFR 1.05 MG/DL (0.70-1.30); GLOMERULAR FILTRATION RATE > 60.0 (>49); GLUCOSE, FASTING 293 MG/DL (70-100); MAGNESIUM LEVEL 1.9 MG/DL (1.8-2.4); POTASSIUM SERUM 4.1 MEQ/L (3.5-5.1); SODIUM LEVEL 135 MEQ/L (136-145)
[2019-05-19] MEDS: D5W/0.9% SODIUM CHLORIDE 1,000 ML IV SCH ×3 (22:04→22:06)
[2019-05-19] MEDS: CHLORASEPTIC SPRAY MT PRN (23:27)
[2019-05-20 01:04] LABS: ACETONE/KETONE 41.21 MG/DL (<2.81); BLOOD UREA NITROGEN 21 MG/DL (7-18); CALCIUM LEVEL 7.6 MG/DL (8.8-10.2); CARBON DIOXIDE LEVEL 17 MEQ/L (21-32); CHLORIDE LEVEL 104 MEQ/L (98-107); CREATININE FOR GFR 1.06 MG/DL (0.70-1.30); GLOMERULAR FILTRATION RATE > 60.0 (>49); GLUCOSE, FASTING 214 MG/DL (70-100); MAGNESIUM LEVEL 1.9 MG/DL (1.8-2.4); POTASSIUM SERUM 3.3 MEQ/L (3.5-5.1); SODIUM LEVEL 136 MEQ/L (136-145)
[2019-05-20] MEDS ORDERED: POTASSIUM CHLORIDE 10 MEQ SR TABLET PO ONE (02:15)
[2019-05-20 04:38] LABS: HEMATOCRIT 39.5 % (42.0-52.0); MEAN CORPUSCULAR HEMOGLOBIN 30.8 pg (27.0-33.0); MEAN CORPUSCULAR HGB CONC 33.4 g/dl (32.0-36.5); MEAN CORPUSCULAR VOLUME 92.3 fl (80.0-96.0); RED BLOOD COUNT 4.28 10^6/uL (4.30-6.10)
[2019-05-20 04:47] LABS: HEMOGLOBIN 13.2 g/dl (13.5-17.5); PLATELET COUNT, AUTOMATED 89 10^3/uL (150-450)
[2019-05-20 04:55] LABS: OSMOLALITY SERUM 299 MOSM/KG (275-295)
[2019-05-20 05:12] LABS: ACETONE/KETONE 32.75 MG/DL (<2.81); BLOOD UREA NITROGEN 18 MG/DL (7-18); CALCIUM LEVEL 7.5 MG/DL (8.8-10.2); CARBON DIOXIDE LEVEL 20 MEQ/L (21-32); CHLORIDE LEVEL 108 MEQ/L (98-107); CREATININE FOR GFR 0.98 MG/DL (0.70-1.30); GLOMERULAR FILTRATION RATE > 60.0 (>49); GLUCOSE, FASTING 167 MG/DL (70-100); PHOSPHORUS LEVEL 0.9 MG/DL (2.5-4.9); POTASSIUM SERUM 3.8 MEQ/L (3.5-5.1); SODIUM LEVEL 138 MEQ/L (136-145)
[2019-05-20] MEDS ORDERED: LEVEMIR (INSULIN DETEMIR) 1 UNITS/0.01ML SC ONE (05:30)
[2019-05-20 08:35] LABS: BLOOD UREA NITROGEN 14 MG/DL (7-18); CALCIUM LEVEL 7.4 MG/DL (8.8-10.2); CARBON DIOXIDE LEVEL 18 MEQ/L (21-32); CHLORIDE LEVEL 110 MEQ/L (98-107); CREATININE FOR GFR 0.92 MG/DL (0.70-1.30); GLOMERULAR FILTRATION RATE > 60.0 (>49); GLUCOSE, FASTING 231 MG/DL (70-100); MAGNESIUM LEVEL 2.1 MG/DL (1.8-2.4); SODIUM LEVEL 139 MEQ/L (136-145)
[2019-05-20 08:43] LABS: LIPASE 745 U/L (73-393)
[2019-05-20] MEDS: DULoxetine 30 MG CAP (CYMBALTA) PO SCH (10:03)
[2019-05-20] MEDS: GABAPENTIN 400 MG CAP PO SCH ×3 (10:04→21:04)
[2019-05-20] MEDS: TAMSULOSIN 0.4 MG CAP PO SCH (10:04)
[2019-05-20] MEDS: METOCLOPRAMIDE INJ 10MG/2ML VIAL (J2765) IV PRN ×2 (10:04→17:26)
[2019-05-20] MEDS: ATORVASTATIN 10 MG TAB PO SCH (10:04)
[2019-05-20] MEDS: ASPIRIN 81 MG ENTERIC TAB PO SCH (10:04)
[2019-05-20] MEDS: ENOXAPARIN 40 MG/0.4 ML SYRINGE (J1650) SC SCH (10:04)
[2019-05-20] MEDS ORDERED: ACETAMINOPHEN TAB 650MG DOSE (2X325MG) PO ONE (10:15)
[2019-05-20 10:39] LABS: ACETONE/KETONE 44.06 MG/DL (<2.81)
[2019-05-20] MEDS ORDERED: DEXTROSE 50% 50 ML SYRINGE IV PRN (11:15)
[2019-05-20] MEDS ORDERED: GLUCOSE 4 GM CHEW TABLET PO PRN (11:15)
[2019-05-20] MEDS ORDERED: GLUCAGON FOR INJ 1 MG VIAL (J1610) SC PRN (11:15)
--- NOTE | 2019-05-20 11:19 | IPNPDOC ---
Text Note Date of Service The patient was seen on 05/20/19. NOTE Subjective: -Feels ok, no abdominal pain this morning, nausea persisting however -Afebrile, no chest pain, shortness of breath, palpitations. Interim events: -Gap closed, insulin drip now dc'd, started back 10 levemir BID -continued on fluids, started on diabetic diet 10 point ROS was reviewed and gross negative Objective: General: Older than stated age appearing, NAD HEENT: NCAT, PERRLA, EOMI, anicteric, MMM Neck: supple, no JVD Chest: CTAB, no wheezing or crackles, on room air Cardiac: RRR, no murmurs noted Abd: protuberant, normoactive, soft, not tender Ext: WWP, no LE edema Neuro: grossly nonfocal examination, moving all extremities spontaneously and CN2-12 grossly intact Psych: AOx3 Labs: Reviewed. AGap closed, persistent ketosis with beta hydroxybutyrate still 32.75. K 3.8, recheck at 8.30am 58 yo man with HTN, IDDM2 c/b gastroparesis, dysautonomia, retinopathy and neuropathy, also with dyslipidemia, BPH, HCV s/p treatment, GERD and excessive alcohol use who is being admitted to the ICU with DKA 2/2 alcoholic pancreatitis. Plan: DKA: 2/2 pancreatitis likely in the setting of excessive alcohol intake -insulin gtt stopped --> was transitioned back to levemir 10 BID --> increasing to 15 BID -Q2 BMPs --> transition to BID likely if 8.30am BMP if within normal range -Q1 FSBG --> to transition to AC/HS after the BMP at 8.30 am -Diet restarted after gap closed overnight, and started back on as noted above --> given nausea --> will de-escalate to clear liquid diet until he tolerates well -currently on D5NS@200cc/hr, will switch to NS now that diet was started -In summary 10 BID levemir, SSI, FSBG AC/HS, BID BMP, clear liquid diet and NS @ 200cc/hr Pancreatitis: -On fluids NS 200cc/hr -No pain at this time, will monitor -zofran PRN for nausea Gastroparesis: -On clinical trial at [facility] --> takes propulsid 10 QID Peripheral neuropathy: -continue home gabapentin Depression: -Duloxetine -Rozerem Chronic pain: -Flexeril -Usually on diclofenac gel -Will hold codeine, per PCP Hyperlipidemia: -Lipitor Takes ASA DVT ppx: lovenox 40 SC Dipo: to medsurg VS,Fishbone, I+O VS, Fishbone, I+O Laboratory Tests 05/19/19 12:16 05/19/19 15:52 05/19/19 16:52 05/19/19 20:45 05/20/19 00:30 05/20/19 04:30 Vital Signs Date Time Temp Pulse Resp B/P (MAP) Pulse Ox O2 Delivery O2 Flow Rate FiO2 05/20/19 06:31 98 96 05/20/19 06:30 125/77 (93) 05/20/19 03:37 16 05/19/19 20:30 Room Air 05/19/19 12:07 97.3 I&O- Last 24 Hours up to 6 AM 05/20/19 06:00 Intake Total 3700 ml Balance 3700 ml EVELINE MCKINNON MD May 20, 2019 08:18
[2019-05-20] MEDS: NS 1,000 ML IV SCH ×3 (11:25→21:07)
[2019-05-20] MEDS ORDERED: ONDANSETRON 4MG/2ML VIAL (J2405) IV ONE (11:30)
[2019-05-20] MEDS: HumaLOG INSULIN (NovoLOG) PER UNIT SC SCH ×3 (12:00→20:57)
--- NOTE | 2019-05-20 13:43 | REP ---
CT cervical spine: 05/20/2019. Indication: Cervical spine trauma. Comparison: 01/20/2018. Technique: Unenhanced axial CT images of the cervical spine were performed with coronal and sagittal reconstructions provided. Findings: There is no acute fracture, subluxation or dislocation. There is straightening of the cervical lordosis. No acute paraspinal soft tissue abnormalities are present. Spondylosis is present most pronounced at C5/C6 and C6/C7 without severe spinal canal narrowing. Impression: No acute osseous injury of the cervical spine. Electronically Signed by Agapito Velasco DO 05/20/2019 01:34 P
[2019-05-20 14:00] VITALS: BP 118/74
[2019-05-20] MEDS: CYCLOBENZAPRINE 10 MG TAB PO PRN (17:26)
[2019-05-20 20:27] VITALS: BP 119/73
[2019-05-20] MEDS ORDERED: LEVEMIR (INSULIN DETEMIR) 1 UNITS/0.01ML SC SCH (21:00)
[2019-05-20] MEDS: LEVEMIR (INSULIN DETEMIR) 1 UNITS/0.01ML SC SCH (21:04)
[2019-05-20] MEDS: RAMELTEON 8 MG TAB (ROZEREM) PO SCH (21:04)
[2019-05-20] MEDS: ACETAMINOPHEN TAB 650MG DOSE (2X325MG) PO PRN (21:07)
[2019-05-20] MEDS: CHLORASEPTIC SPRAY MT PRN (21:07)
[2019-05-21] MEDS: NS 1,000 ML IV SCH ×5 (01:59→22:15)
[2019-05-21 06:22] LABS: HEMATOCRIT 37.5 % (42.0-52.0); HEMOGLOBIN 12.4 g/dl (13.5-17.5); MEAN CORPUSCULAR HEMOGLOBIN 31.2 pg (27.0-33.0); MEAN CORPUSCULAR HGB CONC 33.1 g/dl (32.0-36.5); MEAN CORPUSCULAR VOLUME 94.2 fl (80.0-96.0); RED BLOOD COUNT 3.98 10^6/uL (4.30-6.10); WHITE BLOOD COUNT 7.2 10^3/uL (4.0-10.0)
[2019-05-21 06:27] LABS: PLATELET COUNT, AUTOMATED 71 10^3/uL (150-450)
[2019-05-21 06:28] VITALS: BP 145/85
[2019-05-21] MEDS: METOCLOPRAMIDE INJ 10MG/2ML VIAL (J2765) IV PRN ×2 (06:37→20:52)
[2019-05-21] MEDS: HumaLOG INSULIN (NovoLOG) PER UNIT SC SCH ×4 (08:16→21:00)
[2019-05-21] MEDS: ATORVASTATIN 10 MG TAB PO SCH (08:17)
[2019-05-21] MEDS: DULoxetine 30 MG CAP (CYMBALTA) PO SCH (08:17)
[2019-05-21] MEDS: LEVEMIR (INSULIN DETEMIR) 1 UNITS/0.01ML SC SCH ×2 (08:17→20:52)
[2019-05-21] MEDS: ASPIRIN 81 MG ENTERIC TAB PO SCH (08:17)
[2019-05-21] MEDS: TAMSULOSIN 0.4 MG CAP PO SCH (08:17)
[2019-05-21] MEDS: GABAPENTIN 400 MG CAP PO SCH ×3 (08:18→20:51)
[2019-05-21] MEDS: ENOXAPARIN 40 MG/0.4 ML SYRINGE (J1650) SC SCH (08:18)
[2019-05-21] MEDS ORDERED: ONDANSETRON 4MG/2ML VIAL (J2405) IV PRN (10:45)
[2019-05-21] MEDS: ONDANSETRON 4MG/2ML VIAL (J2405) IV PRN ×2 (10:57→16:37)
[2019-05-21 11:03] LABS: BLOOD UREA NITROGEN 6 MG/DL (7-18); CALCIUM LEVEL 7.1 MG/DL (8.8-10.2); CARBON DIOXIDE LEVEL 21 MEQ/L (21-32); CHLORIDE LEVEL 109 MEQ/L (98-107); GLOMERULAR FILTRATION RATE > 60.0 (>49); GLUCOSE, FASTING 109 MG/DL (70-100); LIPASE 376 U/L (73-393); POTASSIUM SERUM 3.2 MEQ/L (3.5-5.1); SODIUM LEVEL 140 MEQ/L (136-145)
--- NOTE | 2019-05-21 12:08 | IPNPDOC ---
Text Note Date of Service The patient was seen on 05/21/19. NOTE Subjective: -Nauseous -Afebrile, no chest pain, shortness of breath, palpitations. Interim events: -Gap closed, insulin drip now dc'd, started back 10 levemir BID -continued on fluids, started on diabetic diet --> had significant nausea --> so peeled back to clears -Worsening thrombocytopenia to 71 10 point ROS was reviewed and gross negative Objective: General: Older than stated age appearing, NAD HEENT: NCAT, PERRLA, EOMI, anicteric, MMM Neck: supple, no JVD Chest: CTAB, no wheezing or crackles, on room air Cardiac: RRR, no murmurs noted Abd: protuberant, normoactive, soft, not tender Ext: WWP, no LE edema Neuro: grossly nonfocal examination, moving all extremities spontaneously and CN2-12 grossly intact Psych: AOx3 Labs: Reviewed. WBC 7.2, BMP and lipase pending. 58 yo man with HTN, IDDM2 c/b gastroparesis, dysautonomia, retinopathy and neuropathy, also with dyslipidemia, BPH, HCV s/p treatment, GERD and excessive alcohol use who was admitted to the ICU with DKA 2/2 alcoholic pancreatitis with DKA now resolved and on the floor with persistent nausea and supportive treatment for ongoing pancreatitis. Plan: DKA: 2/2 pancreatitis likely in the setting of excessive alcohol intake -s/p insulin gtt , now back on home levemir @ 15u BID -daily BMPs -FSBG AC/HS -On clears in the setting of pancreatitis and severe nausea -continue NS@200cc/hr Pancreatitis: -On fluids NS 200cc/hr -No pain at this time, will monitor -zofran q6HPRN for nausea -On clear diet as tolerated Gastroparesis: -On clinical trial at [facility] --> takes propulsid 10 QID Peripheral neuropathy: -continue home gabapentin Thrombocytopenia: Acute on chronic. -will stop the lovenox ppx and monitor Depression: -Duloxetine -Rozerem Chronic pain: -Flexeril -Usually on diclofenac gel -Will hold codeine, per PCP Hyperlipidemia: -Lipitor Takes ASA DVT ppx: stop lovenox 40 SC, and keep SCDs in the setting of thrombocytopenia Dispo: Medsurg VS,Stefanbonsherrell, I+O VS, Fishbone, I+O Laboratory Tests 05/21/19 05:44 Vital Signs Date Time Temp Pulse Resp B/P (MAP) Pulse Ox O2 Delivery O2 Flow Rate FiO2 05/21/19 06:28 96.9 79 20 145/85 (105) 98 Room Air I&O- Last 24 Hours up to 6 AM 05/21/19 06:00 Intake Total 5764 ml Output Total 2375 ml Balance 3389 ml EVELINE MCKINNON MD May 21, 2019 09:47
[2019-05-21] MEDS: POTASSIUM PHOSPHATE INJ 30 MMOL in D5W 500 ML IV SCH ×2 (16:36→21:49)
[2019-05-21] MEDS: CYCLOBENZAPRINE 10 MG TAB PO PRN (16:37)
[2019-05-21] MEDS: ACETAMINOPHEN TAB 650MG DOSE (2X325MG) PO PRN (16:38)
[2019-05-21 20:08] VITALS: BP 140/81
[2019-05-21] MEDS: RAMELTEON 8 MG TAB (ROZEREM) PO SCH (20:51)
[2019-05-22 04:42] VITALS: BP 140/82
[2019-05-22] MEDS: NS 1,000 ML IV SCH ×4 (06:26→16:52)
[2019-05-22 06:41] LABS: HEMATOCRIT 37.8 % (42.0-52.0); HEMOGLOBIN 12.7 g/dl (13.5-17.5); MEAN CORPUSCULAR HEMOGLOBIN 31.2 pg (27.0-33.0); MEAN CORPUSCULAR HGB CONC 33.6 g/dl (32.0-36.5); MEAN CORPUSCULAR VOLUME 92.9 fl (80.0-96.0); RED BLOOD COUNT 4.07 10^6/uL (4.30-6.10); WHITE BLOOD COUNT 4.9 10^3/uL (4.0-10.0)
[2019-05-22 07:08] LABS: BLOOD UREA NITROGEN 4 MG/DL (7-18); CALCIUM LEVEL 7.3 MG/DL (8.8-10.2); CARBON DIOXIDE LEVEL 25 MEQ/L (21-32); CHLORIDE LEVEL 103 MEQ/L (98-107); CREATININE FOR GFR 0.54 MG/DL (0.70-1.30); GLOMERULAR FILTRATION RATE > 60.0 (>49); GLUCOSE, FASTING 159 MG/DL (70-100); POTASSIUM SERUM 2.9 MEQ/L (3.5-5.1); SODIUM LEVEL 137 MEQ/L (136-145)
[2019-05-22 07:28] LABS: PLATELET COUNT, AUTOMATED 61 10^3/uL (150-450)
[2019-05-22] MEDS ORDERED: POTASSIUM CHLORIDE 10 MEQ SR TABLET PO ONE (08:00)
[2019-05-22 08:25] LABS: PHOSPHORUS LEVEL 2.1 MG/DL (2.5-4.9)
[2019-05-22] MEDS: TAMSULOSIN 0.4 MG CAP PO SCH (09:09)
[2019-05-22] MEDS: GABAPENTIN 400 MG CAP PO SCH ×3 (09:09→21:00)
[2019-05-22] MEDS: ATORVASTATIN 10 MG TAB PO SCH (09:09)
[2019-05-22] MEDS: DULoxetine 30 MG CAP (CYMBALTA) PO SCH (09:10)
[2019-05-22] MEDS: CYCLOBENZAPRINE 10 MG TAB PO PRN (09:10)
[2019-05-22] MEDS: ASPIRIN 81 MG ENTERIC TAB PO SCH (09:10)
[2019-05-22] MEDS: LEVEMIR (INSULIN DETEMIR) 1 UNITS/0.01ML SC SCH ×2 (09:11→21:00)
[2019-05-22] MEDS: HumaLOG INSULIN (NovoLOG) PER UNIT SC SCH ×4 (09:12→21:00)
[2019-05-22] MEDS: ONDANSETRON 4MG/2ML VIAL (J2405) IV PRN (09:19)
[2019-05-22] MEDS: ACETAMINOPHEN TAB 650MG DOSE (2X325MG) PO PRN (10:14)
[2019-05-22 14:00] VITALS: BP 145/101
--- NOTE | 2019-05-22 14:22 | IPNPDOC ---
Text Note Date of Service The patient was seen on 05/22/19. NOTE Subjective: -Much improved nausea, requesting food -Abdominal discomfort has also improved -Afebrile, no chest pain, shortness of breath, palpitations. 10 point ROS was reviewed and gross negative Objective: General: Older than stated age appearing, NAD HEENT: NCAT, PERRLA, EOMI, anicteric, MMM Neck: supple, no JVD Chest: CTAB, no wheezing or crackles, on room air Cardiac: RRR, no murmurs noted Abd: protuberant, normoactive, soft, not tender Ext: WWP, no LE edema Neuro: grossly nonfocal examination, moving all extremities spontaneously and CN2-12 grossly intact Psych: AOx3 Labs: Reviewed. WBC 4.9, K 2.9, Phos 2, Cr 0.54 58 yo man with HTN, IDDM2 c/b gastroparesis, dysautonomia, retinopathy and neuropathy, also with dyslipidemia, BPH, HCV s/p treatment, GERD and excessive alcohol use who was admitted to the ICU with DKA 2/2 alcoholic pancreatitis with DKA now resolved and on the floor with now improving nausea on supportive treatment for ongoing pancreatitis. Plan: DKA: 2/2 pancreatitis likely in the setting of excessive alcohol intake. Resolved. -s/p insulin gtt , now back on home levemir @ 15u BID -daily BMPs -FSBG AC/HS -Advancing diet to carb consistent in the setting much improved nausea -continue NS@200cc/hr until consistently taking PO Pancreatitis: -On fluids NS 200cc/hr -No pain at this time, will monitor -zofran q6HPRN for nausea -Advancing diet as tolerated Gastroparesis: -On clinical trial at [facility] --> takes propulsid 10 QID --> held for QTc>450 Peripheral neuropathy: -continue home gabapentin Thrombocytopenia: Acute on chronic. -SCDs Depression: -Duloxetine -Rozerem Chronic pain: -Flexeril -Usually on diclofenac gel -Will hold codeine, per PCP Hyperlipidemia: -Lipitor Takes ASA DVT ppx: SCDs in the setting of thrombocytopenia Dispo: Medsurg VS,Fishbone, I+O VS, Fishbone, I+O Laboratory Tests 05/22/19 05:49 Vital Signs Date Time Temp Pulse Resp B/P (MAP) Pulse Ox O2 Delivery O2 Flow Rate FiO2 05/22/19 04:42 97.3 97 19 140/82 (101) 100 Room Air I&O- Last 24 Hours up to 6 AM 05/22/19 06:00 Intake Total 3690 ml Output Total 1100 ml Balance 2590 ml EVELINE MCKINNON MD May 22, 2019 14:22
[2019-05-22] MEDS ORDERED: NEUTRA-PHOS 1.5 GM PACKET PO ONE (16:00)
[2019-05-22 19:13] VITALS: BP 133/85
[2019-05-22] MEDS: RAMELTEON 8 MG TAB (ROZEREM) PO SCH (21:00)
[2019-05-23 05:45] VITALS: BP 120/82
[2019-05-23 06:45] LABS: HEMATOCRIT 41.7 % (42.0-52.0); HEMOGLOBIN 14.6 g/dl (13.5-17.5); MEAN CORPUSCULAR HEMOGLOBIN 31.5 pg (27.0-33.0); MEAN CORPUSCULAR VOLUME 90.1 fl (80.0-96.0); RED BLOOD COUNT 4.63 10^6/uL (4.30-6.10); WHITE BLOOD COUNT 5.3 10^3/uL (4.0-10.0)
[2019-05-23 06:46] LABS: PLATELET COUNT, AUTOMATED 88 10^3/uL (150-450)
[2019-05-23 07:10] LABS: BLOOD UREA NITROGEN 4 MG/DL (7-18); CALCIUM LEVEL 7.9 MG/DL (8.8-10.2); CARBON DIOXIDE LEVEL 30 MEQ/L (21-32); CHLORIDE LEVEL 101 MEQ/L (98-107); CREATININE FOR GFR 0.44 MG/DL (0.70-1.30); GLOMERULAR FILTRATION RATE > 60.0 (>49); GLUCOSE, FASTING 144 MG/DL (70-100); POTASSIUM SERUM 2.8 MEQ/L (3.5-5.1); SODIUM LEVEL 138 MEQ/L (136-145)
[2019-05-23] MEDS ORDERED: POTASSIUM CHLORIDE 10 MEQ SR TABLET PO ONE ×2 (07:30→12:00)
[2019-05-23] MEDS: KCL 10MEQ/100ML SWI (KRUN) 10 MEQ in IV 1 EA IV SCH ×2 (08:15→09:00)
[2019-05-23] MEDS: TAMSULOSIN 0.4 MG CAP PO SCH (08:16)
[2019-05-23] MEDS: DULoxetine 30 MG CAP (CYMBALTA) PO SCH (08:16)
[2019-05-23] MEDS: ATORVASTATIN 10 MG TAB PO SCH (08:16)
[2019-05-23] MEDS: GABAPENTIN 400 MG CAP PO SCH ×2 (08:16→16:18)
[2019-05-23] MEDS: ASPIRIN 81 MG ENTERIC TAB PO SCH (08:16)
[2019-05-23] MEDS: LEVEMIR (INSULIN DETEMIR) 1 UNITS/0.01ML SC SCH (08:17)
[2019-05-23] MEDS: HumaLOG INSULIN (NovoLOG) PER UNIT SC SCH ×2 (08:17→12:39)
[2019-05-23] MEDS: ACETAMINOPHEN TAB 650MG DOSE (2X325MG) PO PRN (11:08)
[2019-05-23 14:00] VITALS: BP 124/81
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
== END 2019-05-23 16:40 | disposition home or self-care (01) | DRG 420 ==
LOC: M ED 11:59 → M ED INP 15:05 → M MS5PR 05-20 11:46
PROVIDERS: ADMIT Internal Medicine; ATTEND Student in an Organized Health Care Education/Training Program
DX: E11.10 Type 2 diabetes mellitus with ketoacidosis without coma (principal); K85.90 Acute pancreatitis without necrosis or infection, unspecified; D69.6 Thrombocytopenia, unspecified; K31.84 Gastroparesis; I10 Essential (primary) hypertension; G90.1 Familial dysautonomia [Riley-Day]; E78.5 Hyperlipidemia, unspecified; N40.0 Benign prostatic hyperplasia without lower urinary tract symptoms; Z86.19 Personal history of other infectious and parasitic diseases; K21.9 Gastro-esophageal reflux disease without esophagitis; Z79.82 Long term (current) use of aspirin; Z79.899 Other long term (current) drug therapy; Z88.8 Allergy status to other drugs, medicaments and biological substances; Z91.048 Other nonmedicinal substance allergy status; E55.9 Vitamin D deficiency, unspecified; Z87.891 Personal history of nicotine dependence; Z91.5 Personal history of self-harm; F10.10 Alcohol abuse, uncomplicated; F32.9 Major depressive disorder, single episode, unspecified; G89.29 Other chronic pain; Z79.4 Long term (current) use of insulin; E11.42 Type 2 diabetes mellitus with diabetic polyneuropathy; E11.43 Type 2 diabetes mellitus with diabetic autonomic (poly)neuropathy

== ENCOUNTER → 2019-06-20 | Outpatient (CLI) | payer MEDICAID ==
[~2019-06-20] MED LIST changes: +CODE30TA PO; +DICL1GEL3 TOP; +GABA800T4 PO; +[UNRECOGNIZED DRUG - OTHER] PO
--- NOTE | 2019-06-20 09:31 | REP ---
Limited pelvic bladder sonography: History: Chronic kidney disease. Proteinuria. Findings: Emptying ureteral jets are observed bilaterally on color Doppler interrogation of the urinary bladder. Visualized bladder mcconnell are smooth. No mass lesion is seen. Pre void bladder volume is calculated at 221 ml and postvoid residual is at 30 ml (14%). Impression: Minimal postvoid residual. Otherwise negative. Electronically Signed by Vaughn Plata MD 06/20/2019 11:05 A
--- NOTE | 2019-06-20 09:32 | REP ---
Urinary tract sonography: History: Chronic kidney disease. Proteinuria. Findings: Renal cortical echogenicity pattern is normal bilaterally. There is no evidence of hydronephrosis on either side. Right renal dimensions are 11.5 x 6.2 x 5.8 cm. Left kidney measures 11.9 x 5.5 x 5.0 cm. There are bilateral renal cysts. In the upper pole of the right kidney there is a 1.0 cm cyst. In the lower pole right kidney there is a 1.2 cm cyst. In the upper pole left kidney there is a 1.9 centimeter cyst. In the lower pole of the left kidney there is a 0.8 cm cyst. There is no evidence of renal mass. No perirenal disease is appreciated. Impression: Small bilateral cortical cysts. Otherwise negative renal sonography. Electronically Signed by Vaughn Plata MD 06/20/2019 11:05 A
[2019-06-20 10:28] LABS: ALBUMIN 3.5 GM/DL (3.2-5.2); BLOOD UREA NITROGEN 12 MG/DL (7-18); CALCIUM LEVEL 8.7 MG/DL (8.8-10.2); CARBON DIOXIDE LEVEL 19 MEQ/L (21-32); CHLORIDE LEVEL 101 MEQ/L (98-107); CREATININE FOR GFR 0.93 MG/DL (0.70-1.30); GLOMERULAR FILTRATION RATE > 60.0 (>49); GLUCOSE, FASTING 415 MG/DL (70-100); PHOSPHORUS LEVEL 4.1 MG/DL (2.5-4.9); POTASSIUM SERUM 4.4 MEQ/L (3.5-5.1); SODIUM LEVEL 133 MEQ/L (136-145)
[2019-06-20 11:07] LABS: APPEARANCE, URINE CLEAR (CLEAR); BACTERIA, URINE AUTO NEGATIVE (NEGATIVE); BILIRUBIN, URINE AUTO NEGATIVE (NEGATIVE); BLOOD, URINE BLOOD NEGATIVE (NEGATIVE); COLOR, URINE YELLOW (YELLOW); GLUCOSE, URINE (UA) AUTO 3+ mg/dL (NEGATIVE); KETONE, URINE AUTO NEGATIVE (NEGATIVE); LEUKOCYTE ESTERASE, URINE AUTO NEGATIVE (NEGATIVE); NITRITE, URINE AUTO NEGATIVE (NEGATIVE); PROTEIN, URINE AUTO NEGATIVE (NEGATIVE); RBC, URINE AUTO 0 /HPF (0-3); SPECIFIC GRAVITY URINE AUTO 1.024 (1.002-1.035); SQUAMOUS EPITHELIAL CELL UR AU 0 /HPF (0-6); UROBILINOGEN, URINE AUTO 0.2 mg/dL (0.0-2.0); WBC, URINE AUTO 0 /HPF (0-3)
[2019-06-20 11:48] LABS: CREATININE, URINE 41.7 MG/DL; MAU/CREAT RATIO 306.9 MCG/MG (0.0-30.0)
== END ==
LOC: M RAD 08:18
PROVIDERS: ATTEND Internal Medicine Nephrology
DX: N18.2 Chronic kidney disease, stage 2 (mild) (principal); E11.22 Type 2 diabetes mellitus with diabetic chronic kidney disease; R80.9 Proteinuria, unspecified; N28.1 Cyst of kidney, acquired

== ENCOUNTER → 2019-06-24 | Outpatient (CLI) | payer MEDICAID ==
[~2019-06-24] MED LIST changes: -MECL-68 PO; +MECL1TAB31 PO; -OMEP-172 PO; +OMEP1CAP73 PO; -TRAZ10TA PO; +TRAZ1TAB12 PO
--- NOTE | 2019-07-07 02:34 | ECWPNPC ---
PATIENT NAME: JUANA ROMEO : 1960 GENDER: MALE VISIT DATE: 06/24/2019 DISCHARGE DATE: 06/24/19 1637 VISIT LOCKED DATE TIME: PHYSICIAN: ANGUS AYALA MD RESOURCE: ANGUS AYALA MD REASON FOR APPOINTMENT 1. [facility]-MEDICAID HISTORY OF PRESENT ILLNESS HISTORY OF PRESENT ILLNESS: PAIN THE PATIENT DESCRIBES THE PAIN... 58 YEAR OLD MALE PATIENT WITH A HISTORY OF CHRONIC NECK AND LOW BACK PAIN. THE PATIENT DESCRIBES THE PAIN ACHING, SORE, SHARP, SHOOTING, AND CONTINUOUS WITH A PAIN SCORE OF 7-9/10 DEPENDING ON PHYSICAL ACTIVITY. THE PATIENT STATES HE HAS BEEN SUFFERING FROM HIS PAIN FOR MANY YEARS. THE PATIENT MENTIONS HE WAS ADMITTED TO THE HOSPITAL NOT LONG AGO DUE TO BLOOD SUGAR ISSUES. THE PATIENT MENTIONS HE IS BEING SEEN AT [facility] [place] [facility] WHERE HE IS BEING SEEN FOR MEDICATION MANAGEMENT FOR CODEINE 30 MG. PATIENT DENIES UNEXPLAINABLE WEIGHT LOSS, FEVER, CHILLS, NEW CHANGES ON HIS URINARY OR BOWEL CONTROL. FALL RISK SCREENING: SCREENING :NO FALLS REPORTED IN THE LAST YEAR CURRENT MEDICATIONS TAKING ROLLING WALKER 1 1 WITH BRAKES DX:M47.817 DAILY MED#[id number] TAKING GLUCOMETER ONE TOUCH - GLUCOMETER ICD:250.02 IDDM FSBS FOUR TIMES DAILY TAKING MAY USE CISAPRIDE 10 MG ORALLY QID TAKING LIDOCAINE HCL 2 % GEL 1 APPLICATION TO AFFECTED AREA NEEDED EXTERNALLY THREE TIMES A DAY TO ULCERATION IN MOUTH TAKING ONETOUCH VERIO - STRIP 1 E11.8 FINGERSTICK BLOOD SUGAR TID TAKING ONETOUCH DELICA LANCETS 1 1 LANCET E11.8 FINGERSTICK BLOOD GLUCOSE, TID TAKING ALBUTEROL SULFATE HFA 108 (90 BASE) MCG/ACT AEROSOL SOLUTION 2 PUFFS INHALATION EVERY 4 HOURS NEEDED TAKING ADVAIR DISKUS 500-50 MCG/DOSE POWDER 1 PUFF INHALATION TWICE A DAY TAKING VOLTAREN 1 % GEL ONE APPLICATION TRANSDERMAL TO RIGHT HAND TID PRN TAKING METAMUCIL FIBER 51.7 % PACKET DIRECTED ORALLY TAKING MIRALAX - PACKET 1 PACKET MIXED WITH 8 OUNCES OF FLUID ORALLY ONCE A DAY TAKING ROZEREM 8 MG TABLET 1 TABLET AT BEDTIME NEEDED ORALLY BEFORE BEDTIME TAKING TAMSULOSIN HCL 0.4 MG CAPSULE 1 CAPSULE ORALLY ONCE A DAY TAKING CYMBALTA 60 MG 1 TABLET ORALLY ONCE DAILY TAKING GABAPENTIN 600 MG TABLET 1 CAPSULE ORALLY THREE TIMES A DAY MDD3 TAKING ASPIR-81 81 MG TABLET DELAYED RELEASE 1 TABLET ORALLY ONCE A DAY TAKING MECLIZINE HCL 25 MG TABLET 1 TABLET NEEDED ORALLY ONCE A DAY TAKING HUMALOG 100 UNIT/ML SOLUTION PER SLIDING SCALE SUBCUTANEOUS BEFORE MEALS MDD: 100 UNITS TAKING LANTUS 100 UNIT/ML SOLUTION 20 UNITS SUBCUTANEOUS TWICE DAILY TAKING CYCLOBENZAPRINE HCL 10 MG TABLET 1 TABLET NEEDED ORALLY FOR SPASMS AND PAIN EVERY 6 HOURS NEEDED MDD3 TAKING ATORVASTATIN CALCIUM 10 MG TABLET TAKE ONE TABLET BY MOUTH EVERY DAY TAKING CODEINE SULFATE 30 MG TABLET 1 TABLET ORALLY FOR PAIN ONCE A DAY NEEDED FOR PAIN MDD1 MEDICATION LIST REVIEWED AND RECONCILED WITH THE PATIENT PAST MEDICAL HISTORY COPD SPIROMETRY 02/14/15 DIABETES MELLITUS TYPE 2 SINCE 1980 CHRONIC HEPATITIS C GENOTYPE 1A LIVER CIRRHOSIS F4, HEPATITIS A- HEPATITIS B NEGATIVE DIAGNOSED AGE 16 TREATED WITH HARVONI FOR 12 WEEKS 3-11/2014 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 DEJESUS) ORTHOSTATIC HYPOTENSION GASTROPARESIS (DR. ASHLEY AT [facility]) NEUROLOGIST: DR. SARAHI [place] NCOG: DR. VALLECILLO ([facility] [place]) PAIN MANAGEMENT: DR. AYALA PODIATRY: DR. COULTER BILATERAL CARPAL TUNNEL RIGHT ULNARNERVE ENTRAPEMENT DUPUYTREN'S CONTRACTURE LEFT HAND KIDNEY FAILURE LEFT SIDE STAGE 2 ALLERGIES VERSED: PSYCHOTIC REACTION - ALLERGY PLASTIC OR VINYL TAPE: TEARS SKIN - ALLERGY SURGICAL HISTORY LIVER BIOPSY 2007 TONSILLECTOMY LEFT HAND SURGERY 08/16-08/17 COLONOSCOPY/ENDOSCOPY BY DR AGUILA 10/2013 DUPUYTREN'S CONTRACTURE RELEASE, LEFT HAND 01/26 COLONOSCOPY: NONTHROMBOSED EXTERNAL HEMORRHOIDS IN PERIANAL, INTERNAL HEMORRHOIDS 01/22/2016 EGD: NORMAL ESOPHAGUS, STOMACH, DUODENUM JANUARY 2016 CARPAL TUNNEL RELEASE AND ULNER NERVE (RIGHT) 11/2018 FAMILY HISTORY FATHER: 78 YRS, HEART FAILURE, CVA, , [place], DIAGNOSED WITH UNSPECIFIED CEREBRAL ARTERY OCCLUSION WITH CEREBRAL INFARCTION MOTHER: 63 YRS, HEART FAILURE, [place], HTN, THROAT CANCER, HYPERTENSION, UNSPECIFIED HEART DISEASE SIBLINGS: ALIVE 63 YRS, [employer] 1 BROTHER(S) . 3 SON(S) , 1 DAUGHTER(S) - HEALTHY. SOCIAL HISTORY GENERAL: TOBACCO USE ARE YOU A:FORMER SMOKER HOW LONG HAS IT BEEN SINCE YOU LAST SMOKED?> 10 YEARS HIV / HEP-C SCREENING HIV TEST OFFERED TO PATIENT:YES DATE OFFERED:06/10/2019 TEST ACCEPTED:NO REASON:PATIENT DECLINED BROCHURE PROVIDED TO PATIENTYES OTHERS AT HOME: SPOUSE. 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 DIET: CONSISTENT CARBOHYDRATES. LANGUAGE PERSIAN. BMI CARE GOAL FOLLOW-UP ABOVE NORMAL BMI FOLLOW-UPDIETARY MANAGEMENT EDUCATION, GUIDANCE, AND COUNSELING RECREATIONAL DRUG USE DENIES. EXERCISE: NONE. LEARNING BARRIERS / SPECIAL NEEDS BARRIERS TO LEARNING?NO HEARING IMPAIRED?NO VISION IMPAIRED?YES :CORRECTIVE LENSES COGNITIVELY IMPAIRED?NO READINESS TO LEARN?YES LEARNING PREFERENCES?YES :DEMONSTRATION/VERBAL INSTRUCTION LEARNING CAPABILITIES PRESENT?YES EMOTIONAL BARRIERS?NO LUNG CANCER SCREENING SMOKING STATUS:FORMER SMOKER PAIN CLINIC PFS, CLERGY, PUBLIC HEALTH REFERRALS WAS THE PROVIDER NOTIFIED OF ANY PERTINENT INFO?YES HAS THE PATIENT BEEN EDUCATED REGARDING HIS/HER PLAN OF CARE?YES REVIEWED DIAGNOSTIC FACET WITH PATIENT. CM REVIEWED RADIOFREQUENCY WITH PATIENT. CM HAS THE PATIENT BEEN EDUCATED REGARDING PAIN, THE RISK FOR PAIN, THE IMPORTANCE OF EFFECTIVE PAIN MANAGEMENT, AND THE PAIN ASSESSMENT PROCESS?YES LATEX QUESTIONNAIRE LATEX ALLERGY : HAVE YOU EVER DEVELOPED ANY TYPE OF REACTION AFTER HANDLING LATEX PRODUCTS SUCH RUBBER GLOVES, CONDOMS, DIAPHRAGMS, BALLOONS, SOCKS, OR UNDERWEAR?NO LATEX ALLERGY : HAVE YOU EVER DEVELOPED ANY TYPE OF REACTION DURING OR AFTER DENTAL APPOINTMENT, VAGINAL/RECTAL EXAMINATION, SURGICAL PROCEDURE, OR ANY OTHER EXPOSURE?NO DATE ASKED : 04/19/2019 LATEX RISK : HAVE YOU EVER HAD ANY DIFFICULTY BREATHING OR HIVES AFTER EATING OR HANDLING ANY FRUITS, OR VEGETABLES; SUCH KIWI, BANANAS, STONE FRUITS, OR CHESTNUTSNO LATEX RISK : DO YOU HAVE A PREVIOUS PERSONAL HISTORY OF MORE THAN NINE SURGERIES, SPINA BIFIDA, OR REPEATED CATHERIZATIONS? NO LATEX RISK : ARE YOU FREQUENTLY EXPOSED TO LATEX PRODUCTS IN YOUR OCCUPATION?NO CAFFEINE 6 GLASSES OF TEA / DAY. ADVANCE DIRECTIVE ADVANCE DIRECTIVE DISCUSSED WITH PATIENT:YES 06/24/2019 PATIENT DECLINED HCP INFO AND ASSISTANCE WITH FORM AT THIS TIME. BV SABIANISM [id number] HINDU MARITAL STATUS: . ALCOHOL SCREENING DID YOU HAVE A DRINK CONTAINING ALCOHOL IN THE PAST YEAR?YES HOW MANY DRINKS DID YOU HAVE ON A TYPICAL DAY WHEN YOU WERE DRINKING IN THE PAST YEAR?5 OR 6 (2 POINTS) HOW OFTEN DID YOU HAVE A DRINK CONTAINING ALCOHOL IN THE PAST YEAR?TWO TO THREE TIMES PER WEEK (3 POINTS) POINTS5 INTERPRETATIONPOSITIVE OCCUPATION: DISABLED.. SEXUAL HX HAD SEX IN THE LAST 12 MONTHS (VAGINAL, ORAL, OR ANAL)?NO REVIEWED WITH PT 07/23/18 1118 BVREVIEWED WITH PT 08/26/18 1108 LASREVIEWED WITH PATIENT 10/28/18 1525 JSREVIEWED WITH PATIENT 06/24/2019 1537 BV. HOSPITALIZATION/MAJOR DIAGNOSTIC PROCEDURE ACUTE SMALL/MEDIUM R POSTERIOR TEMPORAL AND PARIETAL STROKE 11/08/2014 DUE TO STROKE- 4 DAYS 11/2014 MRSA 2011, , 14 [facility]: SUICIDAL THOUGHTS 01/2015 ANXIETY AND DEPRESSION 06/11/2015 [facility] 02/15/16-02/22/16 ADMITTED TO [facility] FOR ORTHOSTATIC HYPOTENSION 10/25- 10/27 KETOACIDOSIS AND PANCREATITIS 05/18/19 REVIEW OF SYSTEMS REVIEWED BY: PROVIDER: . CONSTITUTIONAL: ANY CHANGE IN YOUR MEDICAL CONDITION? NO . CHILLS NO . FEVER NO . INFECTION: DO YOU HAVE NEW INFECTIONS? NO . DO YOU HAVE HISTORY OF MRSA? NO . MUSCULOSKELETAL: ANY NEW PATTERNS OF PAIN OR NUMBNESS? NO . GASTROENTEROLOGY: ANY NEW CHANGE IN BOWEL CONTROL? NO . GENITOURINARY: ANY NEW CHANGE IN BLADDER CONTROL? NO . IS THERE A CHANCE YOU COULD BE ? NO . HEMATOLOGY/LYMPH: DO YOU TAKE ANY BLOOD THINNERS? (FOR EXAMPLE- COUMADIN, PLAVIX, AGGRENOX, PLATEL, PRADAXA, OR XARELTO) NO . WHEN WAS YOUR LAST DOSE? DATE: TIME: . NEUROLOGY: HAVE YOU FALLEN IN THE PAST 12 MONTHS? NO . ANY NEW EXTREMITY NUMBNESS OR WEAKNESS? NO . CARDIOLOGY: DO YOU HAVE A PACEMAKER OR DEFIBRILLATOR? NO . RESPIRATORY: HAVE YOU BEEN SICK IN THE PAST WEEK? NO . FEVER NO . FLU LIKE SYMPTOMS? NO . COUGH NO . INTEGUMENTARY: DO YOU HAVE ANY RASHES OR OPEN SORES? NO . ALLERGIC/IMMUNO: ARE YOU ALLERGIC TO IV DYE? NO . ANY NEW ALLERGIES? NO . PSYCHIATRIC: DO YOU HAVE THOUGHTS OF HURTING YOURSELF OR SOMEONE ELSE? NO . ARE YOU ABUSED, NEGLECTED, OR IN AN UNSAFE ENVIRONMENT? NO . ENDOCRINOLOGY: ARE YOU DIABETIC? YES, ON MEDICATION . OTHER: DO YOU NEED ANY PRESCRIPTIONS? NO . IF YES, PLEASE LIST: ____ . ANY NEW PROBLEMS WITH YOUR MEDICATIONS? NO . WHEN DID YOU LAST EAT? ____ . WHEN DID YOU LAST DRINK? ____ . WHAT DID YOU LAST DRINK? ____ . NAME OF PERSON DRIVING YOU HOME? ____ . DO YOU HAVE ANY OTHER QUESTIONS OR CONCERNS NO . VITAL SIGNS WT 176.4 LBS, HT 69 IN, BMI 26.05 INDEX, BP 122/82 MM HG, HR 124 /MIN, RR 18 /MIN, TEMP 97.2 F, OXYGEN SAT % 98%, NA INITIALS SC 15:25, REVIEWED BY: BV. EXAMINATION GENERAL EXAMINATION: PATIENT IS ALERT O X 3 AND COOPERATIVE. TENDERNESS OVER AND PRESENCE OF BANDS OF TISSUE AND TRIGGER POINTS WITH RESTRICTION OF MOVEMENT OF THE NECK AND LOW BACK. ASSESSMENTS MYALGIA, OTHER SITE - M79.18 (PRIMARY) CERVICALGIA - M54.2 LOW BACK PAIN - M54.5 OTHER CHRONIC PAIN - G89.29 TREATMENT MYALGIA, OTHER SITE CLINICAL NOTES: WE DISCUSSED SEVERAL ISSUES WITH MR. ROMEO'S PAIN MANAGEMENT CASE. DUE TO THE TRIGGER POINTS, BANDS OF TISSUE, AND RESTRICTION OF MOVEMENT, I WOULD LIKE TO MOVE FORWARD WITH A NECK AND LOW BACK TRIGGER POINT INJECTIONS AT THIS TIME. WE DISCUSSED THE BENEFITS, RISKS, AND ALTERNATIVES OF THE INJECTION AND THE PATIENT WOULD LIKE TO PROCEED. I AM LOOKING FOR LONG LASTING PAIN RELIEF FROM THIS INJECTION FOR THE PATIENT. THE PATIENT WILL CONTINUE HIS MEDICATION MANAGEMENT AT [facility]. THE PATIENT WILL FOLLOW UP IN SEVERAL WEEKS TO SEE HOW THE TRIGGER POINT INJECTIONS ARE HELPING WITH HIS PAIN. INSTRUCTIONS WERE GIVEN, QUESTIONS WERE ANSWERED, PATIENT REPORTS UNDERSTANDING AND AGREES WITH THE PLAN. I, ELIAZAR ZARCO, DOCUMENTED THE ABOVE INFORMATION ACTING A SCRIBE FOR DR. AYALA. I HAVE REVIEWED THE ABOVE DOCUMENT, WRITTEN BY ELIAZAR NAIR AND I VERIFY THAT IT IS ACCURATE. . PREVENTIVE MEDICINE PAIN CLINIC TEACHING: PROCEDURE TEACHING PT GIVEN WRITTEN AND VERBAL PRE PROCEDURE INSTRUCTIONS. PT VERBALIZES UNDERSTANDING OF ALL INSTRUCTIONS, STATING HE HAS HAD TRIGGER POINT INJECTIONS IN THE PAST. PARUL FRIEDMAN 06/24/2019 4:39:49 PM > . PROCEDURE CODES FA211 ESTABILISHED PATIENT [facility] FACILITY CHARGE [id number] CURRENT MEDS W/DOSAGES DOCUMENTED G8730 PAIN ASSESS POS TOOL F/U PLAN DOC DISPOSITION & COMMUNICATION FOLLOW UP REASON: NECK/LB TPI ELECTRONICALLY SIGNED BY ANGUS AYALA MD, MD ON 07/06/2019 AT 03:48 PM EST DISCLAIMER : THIS IS A VISIT SUMMARY EXTRACTED FROM THE [employer] CHART. IT IS NOT A COPY OF THE [employer] PROGRESS NOTE. MTDD
== END ==
LOC: M PAIN 14:45
PROVIDERS: ATTEND Anesthesiology
DX: M79.18 Myalgia, other site (principal); M54.2 Cervicalgia; M54.5 Low back pain; G89.29 Other chronic pain; J44.9 Chronic obstructive pulmonary disease, unspecified; E11.9 Type 2 diabetes mellitus without complications; Z86.59 Personal history of other mental and behavioral disorders; Z87.891 Personal history of nicotine dependence; Z88.8 Allergy status to other drugs, medicaments and biological substances; Z91.09 Other allergy status, other than to drugs and biological substances; Z86.14 Personal history of Methicillin resistant Staphylococcus aureus infection; Z79.82 Long term (current) use of aspirin; Z79.4 Long term (current) use of insulin; Z79.899 Other long term (current) drug therapy

== ENCOUNTER → 2019-08-18 | Outpatient (CLI) | payer MEDICAID ==
[~2019-08-18] MED LIST changes: +BUPIVACAINE HCL 0.25% 30 ML VIAL As Ordered ONE; +diazePAM 5 MG TAB As Ordered ONE; +oxyCODONE 5MG TAB As Ordered ONE
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
== END ==
LOC: M PAIN 14:00
PROVIDERS: ATTEND Anesthesiology
DX: M79.18 Myalgia, other site (principal); J44.9 Chronic obstructive pulmonary disease, unspecified; I12.9 Hypertensive chronic kidney disease with stage 1 through stage 4 chronic kidney disease, or unspecified chronic kidney disease; F32.9 Major depressive disorder, single episode, unspecified; N18.2 Chronic kidney disease, stage 2 (mild); F10.10 Alcohol abuse, uncomplicated; Z87.891 Personal history of nicotine dependence; Z79.82 Long term (current) use of aspirin; Z79.4 Long term (current) use of insulin; Z79.899 Other long term (current) drug therapy; Z91.048 Other nonmedicinal substance allergy status; Z88.8 Allergy status to other drugs, medicaments and biological substances

== ENCOUNTER 2019-10-17 12:14 | Inpatient (IN) | payer MEDICAID ==
[~2019-10-17] VITALS: Ht 180.3 cm; Wt 77.4 kg
[~2019-10-17 12:14] MED LIST changes: +ACET325T43 PO; -BUPIVACAINE HCL 0.25% 30 ML VIAL As Ordered ONE; +CYCL-707 PO; -CYCL10TA PO; -MAPA325T4 PO; -diazePAM 5 MG TAB As Ordered ONE; -oxyCODONE 5MG TAB As Ordered ONE
[2019-10-17] MEDS ORDERED: HYDR-3719 PO (12:29)
[2019-10-17] MEDS ORDERED: NS 1,000 ML IV ONE ×3 (13:00→16:00)
[2019-10-17] MEDS ORDERED: METOCLOPRAMIDE INJ 10MG/2ML VIAL (J2765 PER 1) IV ONE (13:15)
[2019-10-17 13:26] LABS: VENOUS BASE EXCESS -11.9 (-2.0-2.0); VENOUS HCO3 11.3 MEQ/L (23.0-27.0); VENOUS O2 SATURATION 95.1 % (60.0-80.0); VENOUS PARTIAL PRESSURE CO2 22.1 mmHg (38.0-50.0); VENOUS PARTIAL PRESSURE O2 81.2 mmHg (30.0-50.0); VENOUS PH 7.327 UNITS (7.330-7.430); VENOUS STANDARD HCO3 15.5 MEQ/L
[2019-10-17 13:33] LABS: BASO % 0.1 % (0.0-1.0); HEMATOCRIT 50.1 % (42.0-52.0); HEMOGLOBIN 17.4 g/dl (13.5-17.5); LYMPH # 1.3 10^3/uL (1.5-5.0); LYMPH % 8.5 % (24.0-44.0); MEAN CORPUSCULAR HGB CONC 34.7 g/dl (32.0-36.5); MEAN CORPUSCULAR VOLUME 89.3 fl (80.0-96.0); MONO # 1.4 10^3/uL (0.0-0.8); MONO % 9.1 % (0.0-5.0); NEUTROPHILS # 12.2 10^3/uL (1.5-8.5); NEUTROPHILS % 81.8 % (36.0-66.0); PLATELET COUNT, AUTOMATED 206 10^3/uL (150-450); RED BLOOD COUNT 5.61 10^6/uL (4.30-6.10); WHITE BLOOD COUNT 14.9 10^3/uL (4.0-10.0)
[2019-10-17 13:55] LABS: ALBUMIN 4.1 GM/DL (3.2-5.2); BILIRUBIN,DIRECT 0.7 MG/DL (0.0-0.2); BILIRUBIN,TOTAL 1.7 MG/DL (0.2-1.0); TOTAL PROTEIN 7.7 GM/DL (6.4-8.2)
[2019-10-17] MEDS ORDERED: INSULIN IV RATE CHANGE DOCUMENTATION ML/HR XX SCH (14:15)
[2019-10-17] MEDS ORDERED: INSULIN HUMAN REGULAR 100 UNITS in NS 99 ML IV SCH ×3 (14:15→14:45)
[2019-10-17] MEDS ORDERED: MIRA3350 PO (15:16)
[2019-10-17] MEDS ORDERED: NS 1,000 ML IV SCH (15:27)
[2019-10-17] MEDS: INSULIN IV RATE CHANGE DOCUMENTATION ML/HR XX SCH ×7 (15:37→23:12)
[2019-10-17] MEDS ORDERED: PROCHLORPERAZINE 10MG/2ML VIAL (J0780 PER 1) IV PRN (15:45)
[2019-10-17] MEDS ORDERED: KETOROLAC 30 MG/ML 1ML VIAL IV ONE (16:00)
--- NOTE | 2019-10-17 16:39 | HPEPDOC ---
General Date of Admission 10/17/19 Date of Service: October 17, 2019 Chief Complaint The patient is a 59-year-old male admitted with a reason for visit of N/V/D. Source: Patient History of Present Illness 59 year old male with DM, gastroparesis, neuropathy, CKD stage 2, h/o ETOH ab use, pancreatitis/ chronic, hepatitis C treated, BPH, copd, presented to the ED with 3 days h/o intractable vomiting and extreme thirst and excessive urination. He also complained of generalized abdominal pain and Nausea. He denied any diarrhea. He was found to be in DKA. he does say that his insulin regimen was adjusted 1 month ago but he was doing fine with home blood sugars less than 180 till 3 days ago. He was admitted for possible flare of diabetic gastroparesis and DKA. Home Medications Scheduled Aspirin (Aspir 81) 81 Mg Tab, 81 MG PO DAILY, (Reported) Atorvastatin Calcium (Atorvastatin Calcium) 10 Mg Tab, 10 MG PO DAILY, (Reported) Duloxetine Hcl (Cymbalta) 60 Mg Capsule.dr, 60 MG PO DAILY, (Reported) Gabapentin (Gabapentin) 800 Mg Tablet, 800 MG PO TID, (Reported) Insulin Glargine (Lantus) 1 Units/0.01 Ml Susp, 30 UNITS SC DAILY, (Reported) Insulin Human Lispro (Humalog) 1 Units/0.01 Ml Inj, 1 DOSE SC AC, (Reported) PER SLIDING SCALE Tamsulosin Hcl (Tamsulosin HCl) 0.4 Mg Capsule, 0.4 MG PO DAILY, (Reported) Scheduled PRN Albuterol Sulfate (Proair Hfa) 108 Mcg/Act Aer, 2 PUFF INH QID PRN for SHORTNESS OF BREATH, (Reported) Cyclobenzaprine HCl (Cyclobenzaprine HCl) 10 Mg Tablet, 10 MG PO Q6H PRN for MUSCLE SPASMS, (Reported) Diclofenac Sodium (Diclofenac Sodium) 1% 100GM Gel..gram., 1 APPLIC TOP TID PRN for PAIN, (Reported) APPLY TO BOTH HANDS Hydrocodone/Acetaminophen (Hydrocodone-Acetamin 10-325 mg) 1 Each Tablet, 1 TAB PO TID PRN for PAIN, (Reported) Meclizine HCl (Meclizine HCl) 25 Mg Tablet, 25 MG PO TID PRN for NAUSEA OR VOMITING, (Reported) Polyethylene Glycol 3350 (Miralax) 119 Gm Powder, 17 GM PO DAILY PRN for CONSTIPATION, (Reported) Salmeterol/Fluticasone (Advair 500-50 Diskus) 28 Puff/Inhaler Aerp, 1 PUFF INH BID PRN for SHORTNESS OF BREATH, (Reported) PATIENT TAKES ONLY NEEDED Allergies Coded Allergies: TAPE (Verified Allergy, Unknown, 04/01/18) diazepam (Verified Allergy, Unknown, 05/13/19) midazolam (Verified Adverse Reaction, Unknown, "go crazy" , 05/13/19) Past Medical History Medical History HTN, IDDM2 with h/o DKA, neuropathy, Gastroparesis, CKD stage 2 , DLP, BPH, Hepatitis C s/p treatment with Harvoni in 2014, Vitamin D deficiency, GERD COPD SPIROMETRY 02/14/15, H/O ETOH abuse , H/O PANCREATITIS 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 CVA X2 IN 2008 (NO RESIDUAL EFFECTS); AND AGAIN IN 10/2014 ADJUSTMENT DISORDER WITH MIXED ANXIETY/DEPRESSION DEPRESSION WITH PRIOR SUICIDAL ATTEMPTS ECHO OCTOBER 2014: EF 60% GRADE 1 DIASTOLIC DYSFUNCTION BILATERAL CARPAL TUNNEL RIGHT ULNAR NERVE ENTRAPEMENT Surgical History Upper and lower teeth extraction Tonsillectomy Liver biopsy 2007 Dupuytrens contraction repair of left hand EGD and colonoscopy 01/2016 Trigger point injections B/l neck and lumber areas Family History Significant Family History: Diabetes (brother) FATHER: 78 YRS, HEART FAILURE, CVA, , [place], MOTHER: 63 YRS, HEART FAILURE, [place], HTN, THROAT CANCER HYPERTENSION, UNSPECIFIED HEART DISEASE Social History * Smoker: current smoker Alcohol: sober (h/o alcohol abuse) Drugs: denies A-FIB/CHADSVASC A-FIB History Current/History of A-Fib/PAF?: No Review of Systems Constitutional: Reports: Weakness, Fatigue; Denies: Chills, Fever, Night Sweats Eyes: Denies: Pain, Vision change ENT: Denies: Head Aches, Ear Pain, Dysphagia Skin: Denies: Rash, Lesions, Breakdown Pulmonary: Denies: Dyspnea, Cough Cardiovascular: Denies: Chest Pain, Palpitations, Orthopnea, Paroxysmal Noc. Dyspnea, Lt Headedness Gastrointestinal: Reports: Nausea, Vomiting, Abdominal Pain Genitourinary: Reports: Frequency Hematologic: Denies: Bruising, Bleeding Excessively Endocrine: Reports: Polydipsia, Polyuria Musculoskeletal: Reports: Neck Pain, Back Pain Physical Examination General Exam: Positive: Alert, Cooperative, No Acute Distress Eye Exam: Positive: PERRLA, Conjunctiva & lids normal, EOMI; Negative: Sclera icteric ENT Exam: Positive: Atraumatic, Pharynx Normal, Other ENT (dry mucous membranes.) Neck Exam: Positive: Supple; Negative: JVD, thyromegaly Chest Exam: Positive: Clear to auscultation, Normal air movement Heart Exam: Positive: Tachycardic, Regular Rhythm, Normal S1, Normal S2; Negative: Murmurs, Rubs Telemetry: Positive: No significant arrhythmia Abdomen Exam: Positive: BS Hypoactive, Soft, Tenderness (present in all the quadrants. ) Extremity Exam: Negative: Clubbing, Cyanosis, Edema Skin Exam: Positive: Nl turgor and temperature; Negative: Breakdown, Lesion Neuro Exam: Positive: Normal Speech, Strength at 5/5 X4 ext, Normal Tone Psych Exam: Positive: Oriented x 3 Vital Signs Vital Signs Date Time Temp Pulse Resp B/P (MAP) Pulse Ox O2 Delivery O2 Flow Rate FiO2 10/17/19 15:29 114 98 Room Air 10/17/19 14:29 16 10/17/19 14:15 127/80 (96) 10/17/19 12:26 96.5 Laboratory Data Labs 24H Laboratory Tests 2 10/17/19 12:57: Bedside Glucose (Misc Panel) 385H 10/17/19 13:09: Immature Granulocyte % (Auto) 0.5, Neutrophils (%) (Auto) 81.8H, Lymphocytes (%) (Auto) 8.5L, Monocytes (%) (Auto) 9.1H, Eosinophils (%) (Auto) 0.0, Basophils (%) (Auto) 0.1, Neutrophils # (Auto) 12.2H, Lymphocytes # (Auto) 1.3L, Monocytes # (Auto) 1.4H, Eosinophils # (Auto) 0.0, Basophils # (Auto) 0.0, Nucleated Red Blood Cells % (auto) 0.0, Blood Gas Bicarbonate Standard 15.5, Venous Blood pH 7.327L, Venous Blood Partial Pressure CO2 22.1L, Venous Blood Partial Pressure O2 81.2H, Venous Blood Total Carbon Dioxide 12.0L, Venous Blood HCO3 11.3L, Venous Blood Oxygen Saturation 95.1H, Venous Blood Base Excess -11.9L, Total Bilirubin 1.7H, Direct Bilirubin 0.7H, Aspartate Amino Transf (AST/SGOT) 19, Alanine Aminotransferase (ALT/SGPT) 32, Alkaline Phosphatase 86, Total Protein 7.7, Albumin 4.1, Albumin/Globulin Ratio 1.14, Lipase 306 10/17/19 13:10: POC Glucose (Misc Panel) 385H, POC Sodium (Misc Panel) 129L, POC Potassium (Misc Panel) 3.9, POC Chloride (Misc Panel) 97L, POC Total CO2 (Misc Panel) 15.0L, POC Blood Urea Nitrogen (Misc Panel 26, POC Ionized Calcium (Misc Panel) 4.4L, POC Creatinine (Misc Panel) 0.7, POC Hematocrit (Misc Panel) 53.0H 10/17/19 14:33: Bedside Glucose (Misc Panel) 385H 10/17/19 15:36: Bedside Glucose (Misc Panel) 180H CBC/BMP Laboratory Tests 10/17/19 13:09 Assessment/Plan 59 year old male with DM, gastroparesis, neuropathy, CKD stage 2, h/o ETOH abuse, pancreatitis/ chronic, hepatitis C treated, BPH, copd, presented to the ED with 3 days h/o intractable vomiting and extreme thirst and excessive urination. He also complained of generalized abdominal pain and Nausea. He denied any diarrhea. He was found to be in DKA. he does say that his insulin regimen was adjusted 1 month ago but he was doing fine with home blood sugars less than 180 till 3 days ago. He was admitted for possible flare of diabetic gastroparesis and DKA. DKA probably precipitated by Gastroparesis flare insulin infusion NS and dex /ns once FS < 200 @ 125 cc/ hour FS q 1 hr Basic q 6 hours. will check ketones and A1c. Diabetic gastroparesis zofran and compazine clear liquids pain control with morphine prn and toradol. Diabatic neuropathy continue gabapentin GERD PPI BPH Flomax H/o CVAs continue ASA and statin COPD advair and albuterol. CODE: DNR/DNI Plan / VTE VTE Prophylaxis Ordered?: Yes CADEN GARCIA MD October 17, 2019 16:39
[2019-10-17] MEDS: D5W/0.9% SODIUM CHLORIDE 1,000 ML IV SCH (16:53)
[2019-10-17] MEDS ORDERED: ALBUTEROL 90 MCG/ACT 8GM HFA INHALER INH PRN (17:00)
[2019-10-17] MEDS ORDERED: PANTOPRAZOLE 40MG VIAL (C9113 PER 1) IV SCH (17:00)
[2019-10-17 17:37] VITALS: BP 154/82
[2019-10-17] MEDS: PANTOPRAZOLE 40MG VIAL (C9113 PER 1) IV SCH ×2 (17:49→18:16)
[2019-10-17 17:50] LABS: ACETONE/KETONE 31.67 MG/DL (<2.81); BLOOD UREA NITROGEN 27 MG/DL (7-18); CALCIUM LEVEL 8.7 MG/DL (8.8-10.2); CARBON DIOXIDE LEVEL 18 MEQ/L (21-32); CHLORIDE LEVEL 103 MEQ/L (98-107); CREATININE FOR GFR 1.06 MG/DL (0.70-1.30); GLOMERULAR FILTRATION RATE > 60.0 (>49); GLUCOSE, FASTING 97 MG/DL (70-100); POTASSIUM SERUM 3.8 MEQ/L (3.5-5.1); SODIUM LEVEL 135 MEQ/L (136-145)
[2019-10-17 18:00] VITALS: BP 145/77
[2019-10-17 18:10] LABS: HEMOGLOBIN A1c 8.2 %
[2019-10-17] MEDS: SUCRALFATE SUSP 1GM/10ML UD PO SCH ×2 (18:12→20:34)
[2019-10-17] MEDS: ONDANSETRON 4MG/2ML VIAL IV SCH ×2 (18:12→20:34)
[2019-10-17] MEDS: ATORVASTATIN 10 MG TAB PO SCH (18:14)
[2019-10-17] MEDS: ASPIRIN 81 MG ENTERIC TAB PO SCH (18:14)
[2019-10-17] MEDS: DULoxetine 30 MG CAP (CYMBALTA) PO SCH (18:14)
[2019-10-17] MEDS: MORPHINE 2 MG/ML 1ML VIAL (J2270) IV PRN ×2 (18:14→22:28)
[2019-10-17] MEDS: TAMSULOSIN 0.4 MG CAP PO SCH (18:14)
--- NOTE | 2019-10-17 18:41 | ECGEPIP ---
[facility] - ED Test Date: 2019-10-17 Pat Name: JUANA ROMEO Department: Room: Gender: Male Yarder: kareem : 1960 Requested By: Ina Shirley Order Number: [id number] Reading MD: Ina Shirley Measurements Intervals [place] Rate: 119 P: 38 MD: 169 QRS: -20 QRSD: 76 T: 69 QT: 309 QTc: 435 Interpretive Statements SINUS TACHYCARDIA ABNORMAL RHYTHM ECG NSTTW abnormalities DECREASED RATE 05/19/19 Electronically Signed on 10-17-2019 18:40:44 EDT by Ina Shirley
[2019-10-17 19:00] VITALS: BP 136/79
[2019-10-17] MEDS: ADVAIR HFA 230/21MCG INHALER INH SCH (19:43)
[2019-10-17 20:00] VITALS: BP 122/59
[2019-10-17] MEDS: GABAPENTIN 400 MG CAP PO SCH (20:33)
[2019-10-17] MEDS: HEPARIN SOD (PORCINE) 5000UNITS/ML VIAL (J1644 PER 1000UNITS) SC SCH (20:34)
[2019-10-17] MEDS: KETOROLAC 30 MG/ML 1ML VIAL IV PRN (21:13)
[2019-10-17 22:00] VITALS: BP 115/70
[2019-10-17 23:52] LABS: BLOOD UREA NITROGEN 19 MG/DL (7-18); CALCIUM LEVEL 7.5 MG/DL (8.8-10.2); CARBON DIOXIDE LEVEL 20 MEQ/L (21-32); CHLORIDE LEVEL 107 MEQ/L (98-107); CREATININE FOR GFR 0.86 MG/DL (0.70-1.30); GLOMERULAR FILTRATION RATE > 60.0 (>49); GLUCOSE, FASTING 137 MG/DL (70-100); SODIUM LEVEL 136 MEQ/L (136-145)
[2019-10-18] VITALS: BP 119/76
[2019-10-18] MEDS: D5W/0.9% SODIUM CHLORIDE 1,000 ML IV SCH (00:11)
[2019-10-18] MEDS ORDERED: GLUCAGON INJ 1MG VIAL SC PRN (00:45)
[2019-10-18] MEDS ORDERED: MIRALAX *UNIT DOSE* 17GM PACKET PO PRN (00:45)
[2019-10-18] MEDS ORDERED: LEVEMIR (INSULIN DETEMIR) 1 UNITS/0.01ML SC SCH (00:45)
[2019-10-18] MEDS ORDERED: DEXTROSE 50% 50 ML SYRINGE IV PRN (00:45)
[2019-10-18] MEDS ORDERED: GLUCOSE 4GM CHEW TABLET PO PRN (00:45)
[2019-10-18 01:02] LABS: MAGNESIUM LEVEL 1.9 MG/DL (1.8-2.4); PHOSPHORUS LEVEL 1.4 MG/DL (2.5-4.9)
[2019-10-18 02:00] VITALS: BP 121/72
[2019-10-18] MEDS ORDERED: NEUTRA-PHOS 1.5 GM PACKET PO ONE (02:00)
[2019-10-18] MEDS: KCL 40MEQ in NS 1000ML 1,000 ML IV SCH ×2 (02:01→07:13)
[2019-10-18 04:00] VITALS: BP 111/58
[2019-10-18] MEDS: KETOROLAC 30 MG/ML 1ML VIAL IV PRN (04:37)
[2019-10-18] MEDS: ONDANSETRON 4MG/2ML VIAL IV SCH (04:37)
[2019-10-18 04:44] LABS: BASO % 0.3 % (0.0-1.0); EOS % 0.3 % (0.0-3.0); HEMATOCRIT 36.2 % (42.0-52.0); LYMPH # 1.4 10^3/uL (1.5-5.0); LYMPH % 21.6 % (24.0-44.0); MEAN CORPUSCULAR HEMOGLOBIN 31.4 pg (27.0-33.0); MEAN CORPUSCULAR HGB CONC 35.4 g/dl (32.0-36.5); MEAN CORPUSCULAR VOLUME 88.9 fl (80.0-96.0); MONO # 0.8 10^3/uL (0.0-0.8); MONO % 11.4 % (0.0-5.0); NEUTROPHILS # 4.3 10^3/uL (1.5-8.5); NEUTROPHILS % 66.1 % (36.0-66.0); PLATELET COUNT, AUTOMATED 117 10^3/uL (150-450); RED BLOOD COUNT 4.07 10^6/uL (4.30-6.10); WHITE BLOOD COUNT 6.6 10^3/uL (4.0-10.0)
[2019-10-18 04:46] LABS: HEMOGLOBIN 12.8 g/dl (13.5-17.5)
[2019-10-18 05:05] LABS: BLOOD UREA NITROGEN 15 MG/DL (7-18); CALCIUM LEVEL 7.4 MG/DL (8.8-10.2); CARBON DIOXIDE LEVEL 22 MEQ/L (21-32); CHLORIDE LEVEL 108 MEQ/L (98-107); GLOMERULAR FILTRATION RATE > 60.0 (>49); GLUCOSE, FASTING 171 MG/DL (70-100); POTASSIUM SERUM 3.7 MEQ/L (3.5-5.1); SODIUM LEVEL 138 MEQ/L (136-145)
[2019-10-18 06:00] VITALS: BP 110/60
[2019-10-18] MEDS: PANTOPRAZOLE 40MG VIAL (C9113 PER 1) IV SCH (07:12)
[2019-10-18] MEDS: SUCRALFATE SUSP 1GM/10ML UD PO SCH (07:12)
[2019-10-18] MEDS: ADVAIR HFA 230/21MCG INHALER INH SCH (07:14)
[2019-10-18] MEDS ORDERED: HumaLOG INSULIN (NovoLOG) PER UNIT SC SCH ×2 (07:30→21:00)
[2019-10-18 08:00] VITALS: BP 127/79
[2019-10-18] MEDS: TAMSULOSIN 0.4 MG CAP PO SCH (08:32)
[2019-10-18] MEDS: ATORVASTATIN 10 MG TAB PO SCH (08:32)
[2019-10-18] MEDS: DULoxetine 30 MG CAP (CYMBALTA) PO SCH (08:32)
[2019-10-18] MEDS: GABAPENTIN 400 MG CAP PO SCH (08:32)
[2019-10-18] MEDS: ASPIRIN 81 MG ENTERIC TAB PO SCH (08:33)
[2019-10-18] MEDS: HEPARIN SOD (PORCINE) 5000UNITS/ML VIAL (J1644 PER 1000UNITS) SC SCH (08:33)
[2019-10-18] MEDS ORDERED: REGL5TAB2 PO (08:34)
[2019-10-18] MEDS ORDERED: INSULANT SC (08:43)
--- NOTE | 2019-10-19 08:01 | DS.PDOC ---
Discharge Summary General Date of Admission October 17, 2019 at 16:20 Date of Discharge 10/18/19 Discharge Summary PROCEDURES PERFORMED DURING STAY: [None]. 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 Chronic back pain and abdominal pain HISTORY OF PRESENT ILLNESS: See history and physical HOSPITAL COURSE: 59 year old male with DM, gastroparesis, neuropathy, CKD stage 2, h/o ETOH abuse, pancreatitis/ chronic, hepatitis C treated, BPH, copd, presented to the ED with 3 days h/o intractable vomiting and abdominal pain. He also developed extreme thirst and excessive urination. He also complained of generalized abdominal pain and Nausea. He denied any diarrhea. He was found to be in DKA. he does say that his insulin regimen was adjusted 1 month ago but he was doing fine with home blood sugars less than 180 till 3 days ago. He was admitted for possible flare of diabetic gastroparesis and DKA. DKA probably precipitated by Gastroparesis flare now resolved. continue home insulin A1c is 8.2 Diabetic gastroparesis start on routine reglan tid before meals follow gastroparesis diet Diabatic neuropathy continue gabapentin GERD PPI BPH Flomax H/o CVAs continue ASA and statin COPD advair and albuterol. DISCHARGE MEDICATIONS: Please see below. ALLERGIES: Please see below. PHYSICAL EXAMINATION ON DISCHARGE: VITAL SIGNS: Please see below. General Exam: Positive: Alert, Cooperative, No Acute Distress Eye Exam: Positive: PERRLA, Conjunctiva & lids normal, EOMI; Negative: Sclera icteric ENT Exam: Positive: Atraumatic, Pharynx Normal, Other ENT (dry mucous membranes.) Neck Exam: Positive: Supple; Negative: JVD, thyromegaly Chest Exam: Positive: Clear to auscultation, Normal air movement Heart Exam: Positive: Tachycardic, Regular Rhythm, Normal S1, Normal S2; Negative: Murmurs, Rubs Telemetry: Positive: No significant arrhythmia Abdomen Exam: Positive: BS Hypoactive, Soft, Tenderness (present in all the quadrants. ) Extremity Exam: Negative: Clubbing, Cyanosis, Edema Skin Exam: Positive: Nl turgor and temperature; Negative: Breakdown, Lesion Neuro Exam: Positive: Normal Speech, Strength at 5/5 X4 ext, Normal Tone Psych Exam: Positive: Oriented x 3 LABORATORY DATA: Please see below. ACTIVITY: [As tolerated]. DIET: Carb consistent , gastroparesis diet. DISPOSITION: Home, Self-Care. DISCHARGE INSTRUCTIONS: Follow up with PMD in [address] Woodward DISCHARGE CONDITION: [Stable]. TIME SPENT ON DISCHARGE: 35 minutes. Vital Signs/I&Os Vital Signs Date Time Temp Pulse Resp B/P (MAP) Pulse Ox O2 Delivery O2 Flow Rate FiO2 10/18/19 08:00 98.0 97 20 127/79 (95) 98 Room Air I&O- Last 24 Hours up to 6 AM 10/19/19 06:00 Intake Total 1480 ml Output Total 600 ml Balance 880 ml Discharge Medications Scheduled Aspirin (Aspir 81) 81 Mg Tab, 81 MG PO DAILY, (Reported) Atorvastatin Calcium (Atorvastatin Calcium) 10 Mg Tab, 10 MG PO DAILY, (Reported) Duloxetine Hcl (Cymbalta) 60 Mg Capsule.dr, 60 MG PO DAILY, (Reported) Gabapentin (Gabapentin) 800 Mg Tablet, 800 MG PO TID, (Reported) Insulin Glargine (Lantus) 1 Units/0.01 Ml Susp, 20 UNITS SC BID Insulin Human Lispro (Humalog) 1 Units/0.01 Ml Inj, 1 DOSE SC AC, (Reported) PER SLIDING SCALE Metoclopramide Hcl (Reglan) 5 Mg Tablet, 1 TAB PO TID 1 hour prior to meals Tamsulosin Hcl (Tamsulosin HCl) 0.4 Mg Capsule, 0.4 MG PO DAILY, (Reported) Scheduled PRN Albuterol Sulfate (Proair Hfa) 108 Mcg/Act Aer, 2 PUFF INH QID PRN for SHORTNESS OF BREATH, (Reported) Cyclobenzaprine HCl (Cyclobenzaprine HCl) 10 Mg Tablet, 10 MG PO Q6H PRN for MUSCLE SPASMS, (Reported) Diclofenac Sodium (Diclofenac Sodium) 1% 100GM Gel..gram., 1 APPLIC TOP TID PRN for PAIN, (Reported) APPLY TO BOTH HANDS Hydrocodone/Acetaminophen (Hydrocodone-Acetamin 10-325 mg) 1 Each Tablet, 1 TAB PO TID PRN for PAIN, (Reported) Meclizine HCl (Meclizine HCl) 25 Mg Tablet, 25 MG PO TID PRN for NAUSEA OR VOMITING, (Reported) Polyethylene Glycol 3350 (Miralax) 119 Gm Powder, 17 GM PO DAILY PRN for CONSTIPATION, (Reported) Salmeterol/Fluticasone (Advair 500-50 Diskus) 28 Puff/Inhaler Aerp, 1 PUFF INH BID PRN for SHORTNESS OF BREATH, (Reported) PATIENT TAKES ONLY NEEDED Allergies Coded Allergies: TAPE (Verified Allergy, Unknown, 04/01/18) diazepam (Verified Allergy, Unknown, 05/13/19) midazolam (Verified Adverse Reaction, Unknown, "go crazy" , 05/13/19) CADEN GARCIA MD October 19, 2019 08:01
== END 2019-10-18 09:52 | disposition home or self-care (01) | DRG 48 ==
LOC: EEVIPCON 12:14 → M ED 12:14 → EEVIPCON 16:20 → M ED INP 16:20 → ENRESERV 16:27 → M ICU 17:25
PROVIDERS: ADMIT Internal Medicine Nephrology; ATTEND Internal Medicine Nephrology
DX: E11.43 Type 2 diabetes mellitus with diabetic autonomic (poly)neuropathy (principal); E11.22 Type 2 diabetes mellitus with diabetic chronic kidney disease; K31.84 Gastroparesis; I12.9 Hypertensive chronic kidney disease with stage 1 through stage 4 chronic kidney disease, or unspecified chronic kidney disease; N18.2 Chronic kidney disease, stage 2 (mild); N40.0 Benign prostatic hyperplasia without lower urinary tract symptoms; J44.9 Chronic obstructive pulmonary disease, unspecified; E78.5 Hyperlipidemia, unspecified; Z66 Do not resuscitate; E11.10 Type 2 diabetes mellitus with ketoacidosis without coma; F32.9 Major depressive disorder, single episode, unspecified; E55.9 Vitamin D deficiency, unspecified; F17.200 Nicotine dependence, unspecified, uncomplicated; K21.9 Gastro-esophageal reflux disease without esophagitis; Z79.82 Long term (current) use of aspirin; Z79.899 Other long term (current) drug therapy; Z86.73 Personal history of transient ischemic attack (TIA), and cerebral infarction without residual deficits; Z79.4 Long term (current) use of insulin

== ENCOUNTER → 2020-01-30 | Outpatient (CLI) | payer MEDICAID ==
[~2020-01-30] MED LIST changes: -ASPI81TA85 PO; +ASPI81TA86 PO; +HYDR-3719 PO; +REGL5TAB2 PO
[2020-03-17 16:45] LABS: APPEARANCE, URINE MANUAL CLEAR (CLEAR); BILIRUBIN, URINE MANUAL NEGATIVE (NEGATIVE); COLOR, URINE MANUAL YELLOW (YELLOW); GLUCOSE, URINE (UA) MANUAL 4+(1000 MG/DL) mg/dL (NEGATIVE); KETONE, URINE MANUAL 2+ mg/dL (NEGATIVE); NITRITE, URINE MANUAL NEGATIVE (NEGATIVE); PROTEIN, URINE MANUAL NEGATIVE (NEGATIVE); SPECIFIC GRAVITY,URINE MANUAL 1.015 (1.002-1.035); UROBILINOGEN, URINE MANUAL NORMAL (NORMAL)
[2020-03-17 16:46] LABS: BLOOD URINE MANUAL POSITIVE (NEGATIVE); LEUKOCYTE ESTERASE, URINE MAN NEGATIVE (NEGATIVE); RBC, URINE 0-2 /hpf (0-3); SQUAMOUS EPITHELIAL CELL URINE NONE SEEN /hpf (SMALL AMT); WBC, URINE NONE SEEN /hpf (0-3)
[2020-03-17 16:47] LABS: BACTERIA, URINE NONE SEEN; HYALINE CAST, URINE NONE SEEN /lpf (0-1)
[2020-03-17 23:07] LABS: BASO % 0.5 % (0.0-1.0); EOS # 0.1 10^3/uL (0.0-0.5); EOS % 1.2 % (0.0-3.0); HEMOGLOBIN 14.5 g/dl (13.5-17.5); LYMPH # 1.3 10^3/uL (1.5-5.0); LYMPH % 20.1 % (24.0-44.0); MEAN CORPUSCULAR HEMOGLOBIN 32.4 pg (27.0-33.0); MEAN CORPUSCULAR HGB CONC 34.5 g/dl (32.0-36.5); MONO # 0.7 10^3/uL (0.0-0.8); MONO % 11.4 % (0.0-5.0); NEUTROPHILS # 4.3 10^3/uL (1.5-8.5); NEUTROPHILS % 66.6 % (36.0-66.0); PLATELET COUNT, AUTOMATED 172 10^3/uL (150-450); RED BLOOD COUNT 4.47 10^6/uL (4.30-6.10); WHITE BLOOD COUNT 6.5 10^3/uL (4.0-10.0)
[2020-03-27 00:43] LABS: ALBUMIN 3.8 GM/DL (3.2-5.2); BLOOD UREA NITROGEN 13 MG/DL (7-18); CALCIUM LEVEL 9.1 MG/DL (8.8-10.2); CARBON DIOXIDE LEVEL 28 MEQ/L (21-32); CHLORIDE LEVEL 101 MEQ/L (98-107); CREATININE FOR GFR 0.94 MG/DL (0.70-1.30); GLOMERULAR FILTRATION RATE > 60.0 (>49); GLUCOSE, FASTING 333 MG/DL (70-100); PHOSPHORUS LEVEL 3.7 MG/DL (2.5-4.9); POTASSIUM SERUM 4.4 MEQ/L (3.5-5.1); SODIUM LEVEL 135 MEQ/L (136-145)
== END ==
LOC: M LAB 08:48
PROVIDERS: ATTEND Internal Medicine Nephrology
DX: N18.2 Chronic kidney disease, stage 2 (mild) (principal)

== ENCOUNTER → 2020-03-20 | Outpatient (REF) | payer MEDICAID ==
[2020-04-02 23:07] LABS: CALPROTECTIN STOOL 25 ug/g (0-120); PANCREATIC ELASTASE STOOL 105 (>200)
== END ==
LOC: M LAB REF 11:50
PROVIDERS: ATTEND Internal Medicine Gastroenterology
DX: R19.7 Diarrhea, unspecified (principal)

== ENCOUNTER 2020-04-06 14:50 | Emergency (ER) | payer MEDICAID ==
[~2020-04-06] VITALS: Ht 180.3 cm; Wt 76.4 kg
[2020-04-06 15:44] LABS: BASO % 0.5 % (0.0-1.0); EOS # 0.1 10^3/uL (0.0-0.5); EOS % 0.9 % (0.0-3.0); HEMATOCRIT 43.2 % (42.0-52.0); HEMOGLOBIN 15.2 g/dl (13.5-17.5); LYMPH # 1.6 10^3/uL (1.5-5.0); LYMPH % 18.1 % (24.0-44.0); MEAN CORPUSCULAR HEMOGLOBIN 30.8 pg (27.0-33.0); MEAN CORPUSCULAR HGB CONC 35.2 g/dl (32.0-36.5); MEAN CORPUSCULAR VOLUME 87.6 fl (80.0-96.0); MONO # 0.9 10^3/uL (0.0-0.8); MONO % 9.9 % (0.0-5.0); NEUTROPHILS % 70.4 % (36.0-66.0); PLATELET COUNT, AUTOMATED 188 10^3/uL (150-450); RED BLOOD COUNT 4.93 10^6/uL (4.30-6.10); WHITE BLOOD COUNT 8.6 10^3/uL (4.0-10.0)
[2020-04-06 16:25] LABS: ALBUMIN 3.7 GM/DL (3.2-5.2); ALT/SGPT 31 U/L (12-78); BILIRUBIN,DIRECT 0.2 MG/DL (0.0-0.2); BILIRUBIN,TOTAL 0.8 MG/DL (0.2-1.0); BLOOD UREA NITROGEN 12 MG/DL (7-18); CALCIUM LEVEL 9.2 MG/DL (8.8-10.2); CARBON DIOXIDE LEVEL 23 MEQ/L (21-32); CHLORIDE LEVEL 101 MEQ/L (98-107); CK-MB VALUE MASS 1.6 NG/ML (<3.6); CPK CREATINE PHOSPHOKINASE 92 U/L (39-308); CREATININE FOR GFR 0.74 MG/DL (0.70-1.30); GLOMERULAR FILTRATION RATE > 60.0 (>49); GLUCOSE, FASTING 290 MG/DL (70-100); LIPASE 46 U/L (73-393); MB/CK RELATIVE INDEX 1.74 (< OR =4); POTASSIUM SERUM 4.3 MEQ/L (3.5-5.1); SODIUM LEVEL 134 MEQ/L (136-145); TOTAL PROTEIN 6.8 GM/DL (6.4-8.2); TROPONIN I < 0.02 NG/ML (< 0.10)
[2020-04-06] MEDS ORDERED: MORPHINE 4 MG/ML 1ML VIAL/SYRINGE (J2270) IV ONE ×2 (16:30→19:45)
[2020-04-06] MEDS ORDERED: ISOVUE-370 76% 100ML VIAL As Ordered ONE (17:04)
[2020-04-06 20:36] VITALS: BP 142/95
--- NOTE | 2020-04-06 20:38 | ECGEPIP ---
[facility] - ED Test Date: 2020-04-06 Pat Name: JUANA ROMEO Department: Room: - Gender: Male [employer]: RISA : 1960 Requested By: SCARLETT Craig Order Number: [id number] Reading MD: Ina Shirley Measurements Intervals [place] Rate: 97 P: 34 OR: 150 QRS: -28 QRSD: 82 T: 50 QT: 337 QTc: 429 Interpretive Statements SINUS RHYTHM BORDERLINE LEFT AXIS DEVIATION DECREASED RATE 10/17/19 Electronically Signed on 04-06-2020 20:37:29 EDT by Ina Shirley
[2020-04-06] MEDS ORDERED: PERCOCET 5MG/325MG TAB PO ONE (20:45)
--- NOTE | 2020-04-09 09:16 | REP ---
INDICATION: trauma. Repeat dictation. Preliminary report is provided at the time of the exam by kaitlynn CORONEL. COMPARISON: Comparison CT study of the cervical spine is from January 20, 2018.. TECHNIQUE: Helical scanning is acquired and overlapping 2 mm high resolution axial images were generated and reviewed at bone and soft tissue window settings. Coronal and sagittal multiplanar re-formations images are generated. FINDINGS: There is no evidence of cervical spine element fracture. No skull base fracture is seen. Cervical vertebral body heights are preserved. Alignment is normal. Facet joints are normally aligned bilaterally at each cervical level on multiplanar re-formations images. There is no evidence of intraspinal or paraspinal hematoma. No extra vertebral abnormality is seen. There is fairly advanced degenerative disc disease at C5-6 and C6-7 with anterior posterior osteophytic ridging. Mild degenerative disc changes are noted at C2-C3 and there is uncovertebral spurring on the right at the C2-3 level. There is facet osteoarthritis in the midcervical spine bilaterally. The degenerative disc disease changes at C5-6 and C6-7 have progressed since the January 20, [address] study. There is also osteoarthritis at the articulation between the dens and anterior arch of C1. The osteoarthritic changes are unchanged. No traumatic abnormality seen. IMPRESSION: Negative CT study of the cervical spine without contrast. No fracture seen. Degenerative spondylosis changes. Progressive degenerative disc disease in the interval since the 2017 prior study. <Electronically signed by Miguelangel Plata > 04/09/20 0912
--- NOTE | 2020-04-09 09:20 | REP ---
INDICATION: trauma. Repeat dictation. Preliminary report is provided at the time of the exam by kaitlynn CORONEL. COMPARISON: Comparison head CT study January 20, 2018.. TECHNIQUE: Helical scanning is acquired. 5 mm axial images were reformatted. Coronal MPR images were generated. FINDINGS: Bone window settings demonstrate intact bony calvarium. The patient is edentulous. [employer] views are otherwise unremarkable. Vascular calcifications noted in the distal internal carotid arteries bilaterally. The visualized paranasal sinuses are clear. No intraorbital abnormality is appreciated. There is generalized volume loss as before. An old lacunar infarct is noted in the right thalamus. There is a small old cortical infarction in the right parietal lobe. There is no evidence of intracranial hemorrhage. No contusion, extra-axial fluid collection, acute infarction, mass, or midline shift is seen. IMPRESSION: No acute intracranial abnormality. Vascular calcification, diffuse atrophy, old lacunar infarct right basal ganglia and old right parietal lobe cortical infarct. <Electronically signed by Miguelangel Plata > 04/09/20 0916
--- NOTE | 2020-04-09 09:24 | REP ---
INDICATION: trauma. Repeat dictation. Preliminary report is provided at the time of the exam by kaitlynn CORONEL. COMPARISON: Comparison CT study of the chest is from November 16, 2016.. TECHNIQUE: Helical scanning is acquired. 3 mm axial images re-formatted. Coronal and sagittal MPR images were generated and reviewed. FINDINGS: Preliminary digital jackspooler view is unremarkable. There is no evidence of mediastinal hematoma. Vascular calcification is noted along the course of the left coronary artery. There is no evidence of aortic dissection, aneurysm, or injury. No hilar or mediastinal mass or adenopathy is observed. There is no evidence of pleural or pericardial effusion. There are healing fractures of the left anterior 6th, 7th, 8th, and 9th ribs with callus formation. No acute fracture is appreciated. There are degenerative disc changes in the thoracic spine. There is no evidence of pulmonary contusion, infiltrate or atelectasis. No pulmonary mass or significant pulmonary nodule is seen. There is a tiny low-density area in the right lobe of the thyroid consistent with a sub cm nodule or cyst. IMPRESSION: No acute traumatic abnormality. Healing left 6th through 9th rib fractures with callus formation. Tiny subcentimeter right thyroid nodule or cyst. <Electronically signed by Miguelangel Plata > 04/09/20 [id number]
--- NOTE | 2020-04-09 11:19 | REP ---
INDICATION: trauma. Repeat dictation. Preliminary report is provided at the time of the exam by kaitlynn CORONEL. COMPARISON: Comparison CT abdomen pelvis May 19, 2019. TECHNIQUE: Helical scanning was acquired and 4 mm axial images are re-formatted. Coronal and sagittal MPR images were generated and reviewed. The contrast enhancement dose is 100 mL of intravenous Isovue 370. FINDINGS: Digital preliminary risk mgr view is unremarkable. Liver is normal in size. There is homogeneous decreased attenuation in the liver parenchyma consistent with fatty infiltration unchanged from the prior study. No focal liver lesion is seen. The spleen is unremarkable. No adrenal abnormality is observed. No abnormality is noted in the pancreas. There is a descending duodenal diverticulum. No abnormality is noted in the gallbladder. There are small cortical cysts in the periphery of each kidney. The largest of these is on the left measuring 19 mm. Kidneys enhance symmetrically and are otherwise morphologically intact. No retroperitoneal mass or adenopathy is seen. Small and large intestinal bowel loops are normal in the abdomen or pelvis. Seminal vesicles, prostate, and urinary bladder are unremarkable. No abdominal wall defect is observed. Bone window settings demonstrate healing fractures of the left anterior 6th through 9th ribs. No other traumatic abnormality. IMPRESSION: No acute traumatic abnormality noted. Fatty infiltration of the liver. Healing fractures of the left anterior 6th through 9th ribs. <Electronically signed by Miguelangel Plata > 04/09/20 [id number]
--- NOTE | 2020-04-10 16:22 | ED PDOC ---
Post-Departure Follow-Up ct chest faxed to [facility] for fu Khadar Gutierrez MD Apr 10, 2020 16:22
== END 2020-04-06 21:06 | disposition home or self-care (01) ==
LOC: M ED 14:50
DX: S22.42XD Multiple fractures of ribs, left side, subsequent encounter for fracture with routine healing (principal); K76.0 Fatty (change of) liver, not elsewhere classified; M47.812 Spondylosis without myelopathy or radiculopathy, cervical region; M50.322 Other cervical disc degeneration at C5-C6 level; M50.323 Other cervical disc degeneration at C6-C7 level; E04.1 Nontoxic single thyroid nodule; W19.XXXD Unspecified fall, subsequent encounter; Y92.9 Unspecified place or not applicable; Y93.9 Activity, unspecified; Y99.9 Unspecified external cause status; E11.9 Type 2 diabetes mellitus without complications; I10 Essential (primary) hypertension; F32.9 Major depressive disorder, single episode, unspecified; F10.10 Alcohol abuse, uncomplicated; J44.9 Chronic obstructive pulmonary disease, unspecified; B19.20 Unspecified viral hepatitis C without hepatic coma; M72.0 Palmar fascial fibromatosis [Dupuytren]; Z86.73 Personal history of transient ischemic attack (TIA), and cerebral infarction without residual deficits; M19.90 Unspecified osteoarthritis, unspecified site; Z87.891 Personal history of nicotine dependence; Z79.82 Long term (current) use of aspirin; Z79.4 Long term (current) use of insulin; Z79.899 Other long term (current) drug therapy; Z91.89 Other specified personal risk factors, not elsewhere classified; Z88.8 Allergy status to other drugs, medicaments and biological substances
CPT/HCPCS: 36415; 70450; 71260; 72125; 74177; 80048; 80076; 82550; 82553; 83690; 85025; 93005; 93041; 94760; 96374; 96376; 99285; J2270; Q9967

== ENCOUNTER 2020-04-08 10:32 | Emergency (ER) | payer MEDICAID ==
[~2020-04-08] VITALS: Ht 180.3 cm; Wt 77.3 kg
[2020-04-08] MEDS ORDERED: MORPHINE 4 MG/ML 1ML VIAL/SYRINGE (J2270) IM ONE (11:00)
[2020-04-08 11:31] LABS: APPEARANCE, URINE CLEAR (CLEAR); BACTERIA, URINE AUTO NEGATIVE (NEGATIVE); BILIRUBIN, URINE AUTO NEGATIVE (NEGATIVE); BLOOD, URINE BLOOD 2+ (NEGATIVE); COLOR, URINE YELLOW (YELLOW); GLUCOSE, URINE (UA) AUTO 3+ mg/dL (NEGATIVE); KETONE, URINE AUTO 1+ mg/dL (NEGATIVE); LEUKOCYTE ESTERASE, URINE AUTO NEGATIVE (NEGATIVE); NITRITE, URINE AUTO NEGATIVE (NEGATIVE); PROTEIN, URINE AUTO 2+ mg/dL (NEGATIVE); RBC, URINE AUTO 2 /HPF (0-3); SPECIFIC GRAVITY URINE AUTO 1.023 (1.002-1.035); SQUAMOUS EPITHELIAL CELL UR AU 0 /HPF (0-6); UROBILINOGEN, URINE AUTO 0.2 mg/dL (0.0-2.0); WBC, URINE AUTO 1 /HPF (0-3)
[2020-04-08] MEDS ORDERED: HumuLIN R (REGULAR) INSULIN (NovoLIN R) **100U/ML** PER UNIT IV ONE (11:45)
[2020-04-08 12:15] LABS: VENOUS BASE EXCESS -3.7 (-2.0-2.0); VENOUS HCO3 19.2 MEQ/L (23.0-27.0); VENOUS O2 SATURATION 88.3 % (60.0-80.0); VENOUS PARTIAL PRESSURE CO2 29.9 mmHg (38.0-50.0); VENOUS PARTIAL PRESSURE O2 52.2 mmHg (30.0-50.0); VENOUS PH 7.426 UNITS (7.330-7.430); VENOUS STANDARD HCO3 21.2 MEQ/L; VENOUS TOTAL CO2 20.1 MEQ/L (24.0-28.0)
[2020-04-08] MEDS ORDERED: NS 1,000 ML IV ONE (12:30)
[2020-04-08] MEDS ORDERED: MORPHINE 4 MG/ML 1ML VIAL/SYRINGE (J2270) IV ONE (12:45)
[2020-04-08 13:52] VITALS: BP 159/84
== END 2020-04-08 14:03 | disposition home or self-care (01) ==
LOC: M ED 10:32
DX: S22.42XD Multiple fractures of ribs, left side, subsequent encounter for fracture with routine healing (principal); W19.XXXD Unspecified fall, subsequent encounter; E11.8 Type 2 diabetes mellitus with unspecified complications; R29.6 Repeated falls; Z79.899 Other long term (current) drug therapy; Z87.891 Personal history of nicotine dependence
CPT/HCPCS: 80047; 81001; 82803; 96360; 96372; 99284; J2270

== ENCOUNTER 2020-05-29 10:53 | Emergency (ER) | payer MEDICAID ==
[2020-05-29 11:07] VITALS: BP 133/91
== END 2020-05-29 11:00 | disposition left against medical advice (07) ==
LOC: M ED 10:53 → EDBD 10:53 → M ED 11:00
DX: Z53.21 Procedure and treatment not carried out due to patient leaving prior to being seen by health care provider (principal)

== ENCOUNTER → 2020-06-14 | Outpatient (CLI) | payer MEDICAID | LOC: M LABSMTC 09:58 | PROVIDERS: ATTEND Anesthesiology | DX: Z01.812 Encounter for preprocedural laboratory examination (principal); Z20.828 Contact with and (suspected) exposure to other viral communicable diseases ==

== ENCOUNTER → 2020-07-17 | Outpatient (CLI) | payer SELFPAY ==
[~2020-07-17] MED LIST changes: +GABA-282 PO; -GABA-843 PO
== END ==
LOC: M LABSMTC 09:42
PROVIDERS: ATTEND Pediatrics
DX: Z20.822 Contact with and (suspected) exposure to COVID-19 (principal)

== ENCOUNTER → 2020-08-31 | Outpatient (CLI) | payer MEDICAID ==
[~2020-08-31] MED LIST changes: +ASPI-569 PO; -ASPI81TAEC PO; -LISI-542 PO; +LISI-898 PO; +LISI10TA22 PO; -LISI10TA4 PO
[2020-08-31 15:25] LABS: BLOOD UREA NITROGEN 7 MG/DL (7-18); CALCIUM LEVEL 8.5 MG/DL (8.8-10.2); CARBON DIOXIDE LEVEL 25 MEQ/L (21-32); CHLORIDE LEVEL 102 MEQ/L (98-107); CREATININE FOR GFR 0.61 MG/DL (0.70-1.30); GLOMERULAR FILTRATION RATE > 60.0 (>49); GLUCOSE, FASTING 250 MG/DL (70-100); POTASSIUM SERUM 4.3 MEQ/L (3.5-5.1); SODIUM LEVEL 133 MEQ/L (136-145)
[2020-08-31 17:29] LABS: HEMOGLOBIN A1c 7.5 %
[2020-09-01 13:07] LABS: CREATININE, URINE 40.1 MG/DL; MAU/CREAT RATIO 730.6 MCG/MG (0.0-30.0)
== END ==
LOC: M LAB 14:10
PROVIDERS: ATTEND Family Medicine
DX: E11.21 Type 2 diabetes mellitus with diabetic nephropathy (principal)

== ENCOUNTER → 2020-09-05 | Outpatient (CLI) | payer SELFPAY | LOC: M LABSMTC 13:10 | PROVIDERS: ATTEND Pediatrics | DX: Z20.822 Contact with and (suspected) exposure to COVID-19 (principal) ==

== ENCOUNTER → 2020-09-11 | Outpatient (REF) | payer MEDICAID ==
[2020-09-11 14:44] LABS: HEMATOCRIT 45.3 % (42.0-52.0); HEMOGLOBIN 15.9 g/dl (13.5-17.5); MEAN CORPUSCULAR HEMOGLOBIN 32.1 pg (27.0-33.0); MEAN CORPUSCULAR HGB CONC 35.1 g/dl (32.0-36.5); MEAN CORPUSCULAR VOLUME 91.5 fl (80.0-96.0); PLATELET COUNT, AUTOMATED 205 10^3/uL (150-450); RED BLOOD COUNT 4.95 10^6/uL (4.30-6.10); WHITE BLOOD COUNT 7.3 10^3/uL (4.0-10.0)
[2020-09-11 14:54] LABS: INR 0.96
[2020-09-11 15:18] LABS: ALBUMIN 3.8 GM/DL (3.2-5.2); ALT/SGPT 29 U/L (12-78); BILIRUBIN,TOTAL 0.5 MG/DL (0.2-1.0); BLOOD UREA NITROGEN 12 MG/DL (7-18); CALCIUM LEVEL 9.8 MG/DL (8.8-10.2); CARBON DIOXIDE LEVEL 27 MEQ/L (21-32); CHLORIDE LEVEL 103 MEQ/L (98-107); CREATININE FOR GFR 0.61 MG/DL (0.70-1.30); GLOMERULAR FILTRATION RATE > 60.0 (>49); GLUCOSE, FASTING 154 MG/DL (70-100); POTASSIUM SERUM 3.8 MEQ/L (3.5-5.1); SODIUM LEVEL 135 MEQ/L (136-145)
== END ==
LOC: M SFHCPLAZ 11:08
PROVIDERS: ATTEND Family Medicine
DX: Z01.818 Encounter for other preprocedural examination (principal); E11.43 Type 2 diabetes mellitus with diabetic autonomic (poly)neuropathy; K76.0 Fatty (change of) liver, not elsewhere classified

== ENCOUNTER → 2020-09-11 | Outpatient (CLI) | payer MEDICAID ==
--- NOTE | 2020-09-12 04:48 | REPPI ---
INDICATION: I95.1 ORTHOSTATIC HYPOTENSTION COMPARISON: 05/19/2019 TECHNIQUE: PA and lateral. FINDINGS: The mediastinum and cardiac silhouette are normal. The lung lezama are clear and without acute consolidation, effusion, or pneumothorax. The skeletal structures are intact and normal. IMPRESSION: No acute cardiopulmonary process. <Electronically signed by Reji Thornton > 09/12/20 [id number]
== END ==
LOC: M PLAIMG 11:31
PROVIDERS: ATTEND Family Medicine
DX: I95.1 Orthostatic hypotension (principal)

== ENCOUNTER 2020-11-15 13:07 | Emergency (ER) | payer MEDICAID ==
[~2020-11-15] VITALS: Ht 180.3 cm; Wt 79.0 kg
[~2020-11-15 13:07] MED LIST changes: +BACTDSTA PO; -SULF1TAB93 PO
[2020-11-15] MEDS ORDERED: NORCO, ANEXSIA 5/325MG TABLET (HYDROcodone/ACETAMINOPHEN) PO ONE ×2 (14:10→14:15)
[2020-11-15] MEDS ORDERED: LIDOCAINE 5% (LIDODERM) PATCH TD ONE (14:25)
--- NOTE | 2020-11-15 14:50 | REP ---
INDICATION: trauma COMPARISON: None. TECHNIQUE: AP, lateral, and swimmers views. FINDINGS: Alignment and kyphosis is maintained. Osteopenia and multilevel degenerative changes include endplate sclerosis with disc space narrowing and osteophytosis. No acute fracture/compression injury or subluxation. IMPRESSION: Age-related degenerative changes. No acute fracture/compression injury or subluxation. <Electronically signed by Reji Thornton > 11/15/20 [id number]
--- NOTE | 2020-11-15 14:53 | REP ---
INDICATION: trauma COMPARISON: None. TECHNIQUE: AP, lateral, bilateral oblique, and coned-down views of the lumbar spine. FINDINGS: Moderate multilevel degenerative changes include endplate sclerosis, osteophytosis and facet hypertrophy. Alignment and lordosis maintained. No acute fracture or dislocation. IMPRESSION: Moderate degenerative changes. No acute fracture/compression injury or subluxation. <Electronically signed by Reji Thornton > 11/15/20 [id number]
[2020-11-15] MEDS ORDERED: ONDANSETRON 4 MG ORAL DISINTEGRATING TAB PO ONE (15:15)
[2020-11-15 15:30] VITALS: BP 135/91
[2020-11-15] MEDS ORDERED: **NOTE PATIENT COMMENT** MISC XX SCH (21:00)
== END 2020-11-15 15:40 | disposition home or self-care (01) ==
LOC: EDBD 13:07 → M ED 13:07
DX: S30.0XXA Contusion of lower back and pelvis, initial encounter (principal); X58.XXXA Exposure to other specified factors, initial encounter; Y92.89 Other specified places as the place of occurrence of the external cause; I12.9 Hypertensive chronic kidney disease with stage 1 through stage 4 chronic kidney disease, or unspecified chronic kidney disease; N18.9 Chronic kidney disease, unspecified; E11.9 Type 2 diabetes mellitus without complications; K75.9 Inflammatory liver disease, unspecified; Z79.899 Other long term (current) drug therapy; Z79.82 Long term (current) use of aspirin; Z79.4 Long term (current) use of insulin; Z88.8 Allergy status to other drugs, medicaments and biological substances
CPT/HCPCS: 72072; 72110; 99284; Q0162

== ENCOUNTER 2020-12-10 21:35 | Emergency (ER) | payer MEDICAID ==
[2020-12-10 21:39] VITALS: BP 119/74
== END 2020-12-10 21:52 | disposition left against medical advice (07) ==
LOC: M ED 21:35
DX: Z53.21 Procedure and treatment not carried out due to patient leaving prior to being seen by health care provider (principal)

== ENCOUNTER 2020-12-10 22:23 | Emergency (ER) | payer MEDICAID ==
[~2020-12-10] VITALS: Ht 180.3 cm; Wt 79.5 kg
[2020-12-10 22:51] LABS: HEMATOCRIT 43.3 % (42.0-52.0); MEAN CORPUSCULAR HEMOGLOBIN 31.7 pg (27.0-33.0); MEAN CORPUSCULAR HGB CONC 34.6 g/dl (32.0-36.5); MEAN CORPUSCULAR VOLUME 91.5 fl (80.0-96.0); PLATELET COUNT, AUTOMATED 164 10^3/uL (150-450); RED BLOOD COUNT 4.73 10^6/uL (4.30-6.10); WHITE BLOOD COUNT 10.9 10^3/uL (4.0-10.0)
[2020-12-10 23:26] LABS: ACETAMINOPHEN LEVEL < 2.0 UG/ML (10.0-30.0); ALBUMIN 3.5 GM/DL (3.2-5.2); ALT/SGPT 39 U/L (12-78); BILIRUBIN,DIRECT 0.2 MG/DL (0.0-0.2); BILIRUBIN,TOTAL 0.5 MG/DL (0.2-1.0); BLOOD UREA NITROGEN 11 MG/DL (7-18); CARBON DIOXIDE LEVEL 21 MEQ/L (21-32); CHLORIDE LEVEL 101 MEQ/L (98-107); CREATININE FOR GFR 0.68 MG/DL (0.70-1.30); ETHYL ALCOHOL (ETHANOL) 0.295 % (0.000-0.010); GLOMERULAR FILTRATION RATE > 60.0 (>49); GLUCOSE, FASTING 268 MG/DL (70-100); POTASSIUM SERUM 3.8 MEQ/L (3.5-5.1); SALICYLATE LEVEL < 1.7 MG/DL (5.0-30.0); SODIUM LEVEL 136 MEQ/L (136-145); THYROID STIMULATING HORMONE 0.114 uIU/ML (0.358-3.740); TOTAL PROTEIN 6.3 GM/DL (6.4-8.2)
[2020-12-11 00:06] LABS: AMPHETAMINES LEVEL URINE NEGATIVE (NEGATIVE); BARBITURATES URINE NEGATIVE (NEGATIVE); BENZODIAZEPINES URINE NEGATIVE (NEGATIVE); CANNABINOIDS URINE NEGATIVE (NEGATIVE); COCAINE METABOLITE URINE NEGATIVE (NEGATIVE); METHADONE URINE NEGATIVE (NEGATIVE); OPIATES URINE NEGATIVE (NEGATIVE); PHENCYCLIDINE URINE NEGATIVE (NEGATIVE)
[2020-12-11] MEDS ORDERED: NORCO, ANEXSIA 5/325MG TABLET (HYDROcodone/ACETAMINOPHEN) PO ONE ×3 (00:20→08:20)
[2020-12-11] MEDS ORDERED: GABAPENTIN 400MG CAP PO ONE ×2 (02:20→09:15)
[2020-12-11] MEDS ORDERED: TAMSULOSIN 0.4 MG CAP PO ONE (02:20)
[2020-12-11] MEDS ORDERED: LORazepam 2 MG TAB PO PRN (07:00)
[2020-12-11] MEDS ORDERED: ONDANSETRON 4 MG ORAL DISINTEGRATING TAB PO ONE (08:20)
--- NOTE | 2020-12-11 08:25 | REP ---
INDICATION: fall. Repeat dictation. Preliminary report is provided at the time of the exam by kaitlynn CORONEL. COMPARISON: Comparison study April 06, 2020.. TECHNIQUE: Helical scanning is acquired and overlapping 2 mm high resolution axial images were generated and reviewed at bone and soft tissue window settings. Coronal and sagittal multiplanar re-formations images are generated. FINDINGS: There is straightening of normal cervical lordosis. Vertebral body heights are preserved. Alignment is otherwise normal. No fracture or collapse is seen. There is degenerative disc disease at C2-3, C3-4, C5-6 and C6-7. Degenerative discogenic spurring is most pronounced at C5-6 and C6-7. These findings are unchanged from the comparison study April 06, 2020. There is ankylosis of the right facet at C2-3 unchanged. There is no evidence of perispinal or intraspinal hematoma. Vascular calcification is observed. The lung apices are clear. No bony destructive lesion is seen.. IMPRESSION: Degenerative disc and osteoarthritic facet changes. Findings unchanged from April 06, 2020. No traumatic abnormality. <Electronically signed by Miguelangel Plata > 12/11/20 [id number]
--- NOTE | 2020-12-11 08:37 | REP ---
INDICATION: fall. Repeat dictation. Preliminary report is provided at the time of the exam by kaitlynn CORONEL. COMPARISON: Comparison study April 06, 2020.. TECHNIQUE: Helical scanning is acquired. 5 mm axial images were reformatted. Coronal MPR images were generated. FINDINGS: Bone window settings demonstrate an intact bony calvarium. There is no evidence of skull fracture or incidental bony calvarial lesion. The visualized paranasal sinuses appear clear. No intraorbital abnormality is seen. On soft tissue window setting images; the lateral, third, and fourth ventricles are normal in size and position. Garsia-white differentiation pattern is normal above and below the tentorium. There are is no evidence of intracranial hemorrhage. No mass, edema, infarction, or midline shift is seen. No extra-axial fluid collection is appreciated. There is mild generalized volume loss. There is old encephalomalacia in the right parietal lobe consistent with an old infarction. There is an old lacunar infarct in the right basal ganglia. Mild small vessel changes are seen. There is vascular calcification visible in the distal internal carotid arteries. These changes are stable when compared with the April 06, 2020 study. IMPRESSION: No acute intracranial abnormality.. <Electronically signed by Miguelangel Plata > 12/11/20 0850
[2020-12-11] MEDS ORDERED: THIAMINE 100 MG TAB PO SCH (09:00)
[2020-12-11] MEDS ORDERED: MULTIVITAMINS/MINERALS THERAP 1 TAB PO SCH (09:00)
[2020-12-11] MEDS ORDERED: FOLIC ACID 1 MG TAB PO SCH (09:00)
[2020-12-11] MEDS ORDERED: HumaLOG INSULIN (NovoLOG) PER UNIT SC STA (09:14)
[2020-12-11] MEDS ORDERED: ASPIRIN 81 MG CHEW TABLET PO ONE (09:15)
[2020-12-11] MEDS ORDERED: DULoxetine 30 MG CAP (CYMBALTA) PO ONE (09:15)
[2020-12-11] MEDS ORDERED: LEVEMIR (INSULIN DETEMIR) 1 UNITS/0.01ML SC ONE (09:15)
[2020-12-11 10:45] VITALS: BP 142/86
== END 2020-12-11 10:48 | disposition home or self-care (01) ==
LOC: M ED 22:23
DX: F10.129 Alcohol abuse with intoxication, unspecified (principal); M50.30 Other cervical disc degeneration, unspecified cervical region; M47.812 Spondylosis without myelopathy or radiculopathy, cervical region; F17.200 Nicotine dependence, unspecified, uncomplicated; F12.10 Cannabis abuse, uncomplicated; Z79.82 Long term (current) use of aspirin; Z79.4 Long term (current) use of insulin; Z79.899 Other long term (current) drug therapy; Z91.89 Other specified personal risk factors, not elsewhere classified; Z88.8 Allergy status to other drugs, medicaments and biological substances
CPT/HCPCS: 70450; 72125; 80048; 80076; 80143; 80307; 82077; 84443; 85027; 99284; Q0162

== ENCOUNTER → 2020-12-14 | Outpatient (CLI) | payer MEDICAID, OTHER ==
--- NOTE | 2020-12-18 23:41 | ECWPNPC ---
PATIENT NAME: JUANA ROMEO : 1960 GENDER: MALE VISIT DATE: 12/14/2020 DISCHARGE DATE: 12/14/20 1151 VISIT LOCKED DATE TIME: PHYSICIAN: ANGUS AYALA MD PHYSICIAN PAGER NO: ACTIVE RESOURCE: ANGUS AYALA MD REASON FOR APPOINTMENT 1. LOW BACK PAIN HISTORY OF PRESENT ILLNESS DEPRESSION SCREENING: PHQ-9 LITTLE INTEREST OR PLEASURE IN DOING THINGSNEARLY EVERY DAY FEELING DOWN, DEPRESSED, OR HOPELESSNOT AT ALL TROUBLE FALLING OR STAYING ASLEEP, OR SLEEPING TOO MUCHNEARLY EVERY DAY FEELING TIRED OR HAVING LITTLE ENERGYNEARLY EVERY DAY POOR APPETITE OR OVEREATING SEVERAL DAYS FEELING BAD ABOUT YOURSELF-OR THAT YOU ARE A FAILURE OR HAVE LET YOURSELF OR YOUR FAMILY DOWN NOT AT ALL TROUBLE CONCENTRATING ON THINGS, SUCH READING THE NEWSPAPER OR WATCHING TELEVISION NOT AT ALL MOVING OR SPEAKING SO SLOWLY THAT OTHER PEOPLE COULD HAVE NOTICED. OR THE OPPOSITE- BEING SO FIDGETY OR RESTLESS THAT YOU HAVE BEEN MOVING AROUND A LOT MORE THAN USUALNOT AT ALL THOUGHTS THAT YOU WOULD BE BETTER OFF , OR OF HURTING YOURSELF IN SOME WAY?NOT AT ALL TOTAL SCORE:10 INTERPRETATIONMODERATE DEPRESSION PHQ-2 (2015 EDITION) LITTLE INTEREST OR PLEASURE IN DOING THINGS?NEARLY EVERY DAY FEELING DOWN, DEPRESSED, OR HOPELESS?NOT AT ALL TOTAL SCORE3 GENERAL: 60-YEAR-OLD MALE PATIENT WITH A HISTORY OF CHRONIC LOW BACK PAIN. THE PATIENT DESCRIBES THE PAIN ACHING, SEVERE WITH A PAIN SCORE RANGING FROM 7-10/10. THE PAIN IS AFFECTING HIS ABILITY TO PERFORM ACTIVITIES SUCH CLEANING HIS HOUSE AND GROCERY SHOPPING. HE HAS BEEN GOING THROUGH A LOT OF MEDICAL ISSUES IN THE LAST YEAR WITH COVID AND SURGERIES. HIS PAIN IS IN THE BACK. FALL RISK SCREENING: SCREENING 5-6 FALLS THIS YEAR BROKE 5 RIBS ON LEFT SIDE DURING ONE OF THE FALLS. PAIN SCREENING: PATIENT HAS A COMPLAINT OF ACUTE OR CHRONIC PAIN :YES LOCATION OF PAIN:LOW BACK INTENSITY OF PAIN (SCALE OF 1 TO 10):8 WHAT DOES YOUR PAIN FEEL LIKE:ACHING, SHOOTING DURATION:CONTINOUS, CONSTANT, ALL DAY PAIN IS INCREASED BY:ACTIVITIES PAIN IS DECREASED BY:OTHERS HEAT NURSING NOTE: -. PAIN CENTER INTAKE QUESTIONS: DO YOU HAVE A HISTORY OF MRSA? :YES 2012 DO YOU TAKE A BLOOD THINNERS? :NO ASPIR-81 81 MG DO YOU HAVE ANY BLEEDING DISORDERS? :NO ANY NEW NUMBNESS OR WEAKNESS IN YOUR LEGS OR ARMS? :YES PAIN SHOOTING DOWN INTO THE BACK OF BOTH LEGS ANY PACEMAKER,DEFIBRILLATOR, OR DORSAL COLUMN STIMULATOR? :NO DO YOU HAVE ANY RASHES OR OPEN SORES? :NO ARE YOU ALLERGIC TO IV DYE? :NO ARE YOU DIABETIC? :YES TYPE 2 ANY NEW PROBLEMS WITH YOUR MEDICATIONS? :NO HAVE YOU RECEIVED A VACCINE IN THE PAST 30 DAYS? :NO DO YOU PLAN TO RECEIVE A VACCINE IN THE NEXT 21 DAYS? :NO DO YOU NEED ANY PRESCRIPTION? :NO DO YOU TAKE ANY IMMUNOSUPPRESSIVE MEDICATIONS? :NO DO YOU HAVE ANY KIDNEY OR LIVER DISEASE? :YES LIVER DISEASE IS THERE A CHANCE YOU COULD BE ? :NO ARE YOU BREAST FEEDING? :NO CURRENT MEDICATIONS TAKING ROLLING WALKER 1 1 WITH BRAKES DX:M47.817 DAILY MED#[id number] TAKING GLUCOMETER ONE TOUCH - GLUCOMETER ICD:250.02 IDDM FSBS FOUR TIMES DAILY TAKING ONETOUCH VERIO - STRIP 1 E11.8 FINGERSTICK BLOOD SUGAR TID TAKING ONETOUCH DELICA LANCETS 1 1 LANCET E11.8 FINGERSTICK BLOOD GLUCOSE, TID TAKING INSULIN SYRINGE 30G X 1/2" 1 ML MISCELLANEOUS DIRECTED _ FOUR TIMES DAILY TAKING ADVAIR DISKUS 500-50 MCG/DOSE POWDER 1 PUFF INHALATION TWICE A DAY TAKING ALBUTEROL SULFATE HFA 108 (90 BASE) MCG/ACT AEROSOL SOLUTION 2 PUFFS INHALATION EVERY 4 HOURS NEEDED TAKING METAMUCIL FIBER 51.7 % PACKET DIRECTED ORALLY DAILY TAKING HUMALOG 100 UNIT/ML SOLUTION PER SLIDING SCALE SUBCUTANEOUS BEFORE MEALS MDD: 100 UNITS TAKING ATORVASTATIN CALCIUM 10 MG TABLET TAKE ONE TABLET BY MOUTH EVERY DAY ORALLY DAILY TAKING LANTUS 100 UNIT/ML SOLUTION 30 UNITS MDD 60 UNITS SUBCUTANEOUS ONCE DAILY TAKING TAMSULOSIN HCL 0.4 MG CAPSULE 1 CAPSULE ORALLY ONCE A DAY TAKING GABAPENTIN 600 MG TABLET 1 CAPSULE ORALLY THREE TIMES A DAY MDD3 TAKING CYMBALTA 60 MG 1 TABLET ORALLY ONCE DAILY TAKING VOLTAREN 1 % GEL ONE APPLICATION TRANSDERMAL TO RIGHT HAND TID PRN TAKING CYCLOBENZAPRINE HCL 10 MG TABLET 1 TABLET NEEDED ORALLY FOR SPASMS AND PAIN EVERY 6 HOURS NEEDED MDD3 TAKING MECLIZINE HCL 25 MG TABLET 1 TABLET NEEDED ORALLY ONCE A DAY TAKING HM LIDOCAINE PATCH 4 % PATCH DIRECTED EXTERNALLY DAILY TAKING METOCLOPRAMIDE HCL 5 MG TABLET 1 TAB ORALLY THREE TIMES DAILY 1 HOUR PRIOR TO MEALS TAKING ASPIR-81 81 MG TABLET DELAYED RELEASE 1 TABLET ORALLY ONCE A DAY TAKING MIRALAX - PACKET 1 PACKET MIXED WITH 8 OUNCES OF FLUID ORALLY ONCE A DAY TAKING COMPAZINE 25MG DIRECTED TAKING COMPAZINE 25MG DIRECTED TAKING COMPAZINE 25MG 1 ORALLY TID PRN NOT-TAKING CEPACOL SORE THROAT 10-2.1 MG LOZENGE 1 LOZENGE NEEDED MOUTH/THROAT EVERY 2 HRS NOT-TAKING TAMSULOSIN HCL 0.4 MG CAPSULE 1 CAPSULE ORALLY ONCE A DAY MEDICATION LIST REVIEWED AND RECONCILED WITH THE PATIENT PAST MEDICAL HISTORY COPD SPIROMETRY 02/14/15 DIABETES MELLITUS TYPE 2 SINCE 1980 CHRONIC HEPATITIS C GENOTYPE 1A LIVER CIRRHOSIS F4, HEPATITIS A- HEPATITIS B NEGATIVE DIAGNOSED AGE 16 TREATED WITH HARVONI FOR 12 WEEKS 3-11/2014 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 DEJESUS) -2017 ORTHOSTATIC HYPOTENSION GASTROPARESIS (DR. ASHLEY AT [facility]) NEUROLOGIST: DR. SARAHI MOROCHO IN [place] NCOG: DR. VALLECILLO ([facility] [place] PAIN MANAGEMENT: DR. AYALA PODIATRY: DR. 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 ALLERGIES VERSED: PSYCHOTIC REACTION - ALLERGY PLASTIC OR VINYL TAPE: TEARS SKIN - ALLERGY SURGICAL HISTORY LIVER BIOPSY 2007 TONSILLECTOMY LEFT HAND SURGERY 08/16-08/17 COLONOSCOPY/ENDOSCOPY BY DR AGUILA 10/2013 DUPUYTREN'S CONTRACTURE RELEASE, LEFT HAND 01/26 COLONOSCOPY: NONTHROMBOSED EXTERNAL HEMORRHOIDS IN PERIANAL, INTERNAL HEMORRHOIDS 01/22/2016 EGD: NORMAL ESOPHAGUS, STOMACH, DUODENUM JANUARY 2016 CARPAL TUNNEL RELEASE AND ULNER NERVE (RIGHT) 11/2018 LEFT HAND DUPUTENS VIRA RELACE 09/2020 FAMILY HISTORY FATHER: 78 YRS, HEART FAILURE, CVA, , OR, DIAGNOSED WITH UNSPECIFIED CEREBRAL ARTERY OCCLUSION WITH CEREBRAL INFARCTION MOTHER: 63 YRS, HEART FAILURE, OR, HTN, THROAT CANCER, HYPERTENSION, UNSPECIFIED HEART DISEASE SIBLINGS: ALIVE 64 YRS, QUARDPLE BYPASS SON(S): ALIVE DAUGHTER(S): ALIVE 1 BROTHER(S) . 3 SON(S) , 1 DAUGHTER(S) - HEALTHY. SOCIAL HISTORY GENERAL: TOBACCO USE ARE YOU A:FORMER SMOKER HOW LONG HAS IT BEEN SINCE YOU LAST SMOKED?> 10 YEARS LATEX QUESTIONNAIRE LATEX ALLERGY : HAVE YOU EVER DEVELOPED ANY TYPE OF REACTION AFTER HANDLING LATEX PRODUCTS SUCH RUBBER GLOVES, CONDOMS, DIAPHRAGMS, BALLOONS, SOCKS, OR UNDERWEAR?NO LATEX ALLERGY : HAVE YOU EVER DEVELOPED ANY TYPE OF REACTION DURING OR AFTER DENTAL APPOINTMENT, VAGINAL/RECTAL EXAMINATION, SURGICAL PROCEDURE, OR ANY OTHER EXPOSURE?NO LATEX RISK : HAVE YOU EVER HAD ANY DIFFICULTY BREATHING OR HIVES AFTER EATING OR HANDLING ANY FRUITS, OR VEGETABLES; SUCH KIWI, BANANAS, STONE FRUITS, OR CHESTNUTSNO LATEX RISK : DO YOU HAVE A PREVIOUS PERSONAL HISTORY OF MORE THAN NINE SURGERIES, SPINA BIFIDA, OR REPEATED CATHERIZATIONS? NO LATEX RISK : ARE YOU FREQUENTLY EXPOSED TO LATEX PRODUCTS IN YOUR OCCUPATION?NO DATE ASKED : 12/14/2020 ALCOHOL USE: NO. LUNG CANCER SCREENING SMOKING STATUS:FORMER SMOKER BMI CARE GOAL FOLLOW-UP ABOVE NORMAL BMI FOLLOW-UPDIETARY MANAGEMENT EDUCATION, GUIDANCE, AND COUNSELING ALCOHOL SCREENING DID YOU HAVE A DRINK CONTAINING ALCOHOL IN THE PAST YEAR?YES HOW MANY DRINKS DID YOU HAVE ON A TYPICAL DAY WHEN YOU WERE DRINKING IN THE PAST YEAR?5 OR 6 (2 POINTS) HOW OFTEN DID YOU HAVE A DRINK CONTAINING ALCOHOL IN THE PAST YEAR?TWO TO THREE TIMES PER WEEK (3 POINTS) POINTS5 INTERPRETATIONPOSITIVE RECREATIONAL DRUG USE DENIES. CAFFEINE 6 GLASSES OF TEA / DAY. SEXUAL HX HAD SEX IN THE LAST 12 MONTHS (VAGINAL, ORAL, OR ANAL)?NO HIV / HEP-C SCREENING HIV TEST OFFERED TO PATIENT:YES DATE OFFERED:06/10/2019 TEST ACCEPTED:NO REASON:PATIENT DECLINED BROCHURE PROVIDED TO PATIENTYES EVANGELICAL [id number] PENTECOSTALISM LANGUAGE [place]ANI. 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 LEARNING BARRIERS / SPECIAL NEEDS CHANGE FROM LAST VISIT?YES BARRIERS TO LEARNING?NO HEARING IMPAIRED?YES :HEARING AIDES VISION IMPAIRED?YES :CORRECTIVE LENSES COGNITIVELY IMPAIRED?NO READINESS TO LEARN?YES LEARNING PREFERENCES?YES :DEMONSTRATION/VERBAL INSTRUCTION LEARNING CAPABILITIES PRESENT?YES EMOTIONAL BARRIERS?YES COMMENTS DEPRESSION WITH PRIOR SUICIDAL ATTEMPTS SPECIAL DEVICES?YES :CANE, WALKER HAND ETCHER HELPER NEEDED?NO WILL ACCOMPANY DOMESTIC VIOLENCE DO YOU FEEL SAFE IN YOUR ENVIRONMENT?YES OCCUPATION: DISABLED.. DIET: CONSISTENT CARBOHYDRATES. EXERCISE: NONE. MARITAL STATUS: . OTHERS AT HOME: SPOUSE. - HAS THE PATIENT BEEN EDUCATED REGARDING HIS/HER PLAN OF CARE?YES HAS THE PATIENT BEEN EDUCATED REGARDING PAIN, THE RISK FOR PAIN, THE IMPORTANCE OF EFFECTIVE PAIN MANAGEMENT, AND THE PAIN ASSESSMENT PROCESS?YES ADVANCE DIRECTIVE ADVANCE DIRECTIVE DISCUSSED WITH PATIENT:YES 08/10/2019 PT HAS HCP-RAJNI- [phone](C) [phone] (H) ASKED TO BRING COPY IN REVIEWED WITH PT 07/23/18 1118 BVREVIEWED WITH PT 08/26/18 1108 LASREVIEWED WITH PATIENT 10/28/18 1525 JSREVIEWED WITH PATIENT 06/24/2019 1537 BV08/10/2019 1005 PRE-PROCEDURE CALL COMPLETED WITH . AD08/18/2019 1444 REVIEWED WITH PT. AD. HOSPITALIZATION/MAJOR DIAGNOSTIC PROCEDURE ACUTE SMALL/MEDIUM R POSTERIOR TEMPORAL AND PARIETAL STROKE 11/08/2014 DUE TO STROKE- 4 DAYS 11/2014 MRSA 2011, 13, 14 [facility]HU: SUICIDAL THOUGHTS 01/2015 ANXIETY AND DEPRESSION 06/11/2015 [facility] 02/15/16-02/22/16 ADMITTED TO [facility] FOR ORTHOSTATIC HYPOTENSION 10/25- 10/27 KETOACIDOSIS AND PANCREATITIS 05/18/19 TACHYCARDIA GASTROPARESIS FLARE AND DKA 10/2019 REVIEW OF SYSTEMS CONSTITUTIONAL: ANY RECENT FEVER NO . CHILLS NO . WEIGHT CHANGE OF UNKNOWN REASONS NO . GASTROENTEROLOGY: NEW UNEXPLAINABLE CHANGES IN BOWEL CONTROL NO . CONSTIPATION NO . GENITOURINARY: ANY NEW CHANGE IN BLADDER CONTROL? NO . NEUROLOGY: NEW ONSET DIZZINESS OR NEUROLOGICAL CHANGES NOT MENTIONED NO . NEW NUMBNESS OR PAIN PATTERNS NOT MENTIONED AND PERTINENT TO TODAY'S VISIT NO . CARDIOLOGY: NEW CHEST PRESSURE NO . PATIENT DENIES NO . RESPIRATORY: UNEXPLAINABLE COUGH NO . NEW SHORTNESS OF BREATH NO . VITAL SIGNS WT 171.2 LBS, HT 69 IN, BMI 25.28 INDEX, BP 137/73 MM HG, HR 107 /MIN, RR 18 /MIN, TEMP 98.1 F, OXYGEN SAT % 97%, BLOOD GLUCOSE LEVEL 217 THIS AM, SAFE IN ENV? (Y/N) YES, NA INITIALS AW 1032T.KIMBERLY LOZA. EXAMINATION GENERAL EXAMINATION: THE PATIENT IS ALERT, ORIENTED TIMES THREE AND COOPERATIVE. LUNGS ARE CLEAR TO AUSCULTATION. HEART SHOWS REGULAR RHYTHM, NO MURMURS AND NO GALLOPS. THERE WAS TENDERNESS OF THE PARASPINOUS MUSCLE AND THERE WERE BANDS OF TISSUE WITH RESTRICTION OF MOVEMENT PRESENT IN THE TRIGGER POINTS IN THE LOWER BACK AREA. ASSESSMENTS MYALGIA - M79.10 (PRIMARY) LOW BACK PAIN - M54.5 TREATMENT MYALGIA CLINICAL NOTES: I DISCUSSED ALTERNATIVES WITH MR. ROMEO. HE HAS RESPONDED WELL TO TRIGGER POINT INJECTIONS IN THE PAST. WE AGREE ON MOVING FORWARD WITH TRIGGER POINT INJECTIONS BILATERAL LOW BACK WITH STEROIDS, BOOK AFTER APPROVED. THE PATIENT REPORTS UNDERSTANDING AND AGREES. I, JANET HARRINGTON, DOCUMENTED THE ABOVE INFORMATION ACTING A SCRIBE FOR DR. AYALA. I HAVE REVIEWED THE ABOVE DOCUMENT, WRITTEN BY JANET HARRINGTON, MOBILITY MANAGER, AND I VERIFY THAT IT IS ACCURATE. OTHERS NOTES: 12/14/2020 1151 PRE PROCEDURE INSTRUCTIONS PROVIDED AND REVIEWED WITH PATIENT. PATIENT VERBLAIZES UNDERSTANDING. TRIGGER POINT INJECTION PROCEDURE INFORMATION PRINTED AND GIVEN TO PATIENT. PROCEDURE CODES FA211 ESTABILISHED PATIENT [facility] FACILITY CHARGE [address]803 OFFICE/OUTPATIENT VISIT EST DISPOSITION & COMMUNICATION FOLLOW UP REQUEST AUTH FOR TRIGGER POINT INJECTIONS BILATERAL LOW BACK (REASON: REQUEST AUTH FOR TRIGGER POINT INJECTIONS BILATERAL LOW BACK ) ELECTRONICALLY SIGNED BY ANGUS AYALA MD, MD ON 12/18/2020 AT 11:44 AM EDT DISCLAIMER : THIS IS A VISIT SUMMARY EXTRACTED FROM THE [employer] CHART. IT IS NOT A COPY OF THE [employer] PROGRESS NOTE. MTDD
== END ==
LOC: M PAIN 10:45
PROVIDERS: ATTEND Anesthesiology
DX: M79.10 Myalgia, unspecified site (principal); M54.5 Low back pain; E11.9 Type 2 diabetes mellitus without complications; J44.9 Chronic obstructive pulmonary disease, unspecified; Z86.14 Personal history of Methicillin resistant Staphylococcus aureus infection; Z86.59 Personal history of other mental and behavioral disorders; Z87.891 Personal history of nicotine dependence; Z88.8 Allergy status to other drugs, medicaments and biological substances; Z91.09 Other allergy status, other than to drugs and biological substances; Z79.4 Long term (current) use of insulin; Z79.82 Long term (current) use of aspirin; Z79.899 Other long term (current) drug therapy

== ENCOUNTER → 2021-01-23 | Outpatient (CLI) | payer MEDICAID, OTHER | LOC: M LABSMTC 13:33 | PROVIDERS: ATTEND Anesthesiology | DX: Z01.812 Encounter for preprocedural laboratory examination (principal); Z20.822 Contact with and (suspected) exposure to COVID-19 ==

== ENCOUNTER 2021-01-25 19:08 | Emergency (ER) | payer MEDICAID, OTHER ==
[~2021-01-25] VITALS: Ht 182.9 cm; Wt 79.5 kg
[2021-01-25] MEDS ORDERED: NS 1,000 ML IV ONE (19:30)
[2021-01-25 20:04] LABS: BASO # 0.1 10^3/uL (0.0-0.2); BASO % 0.7 % (0.0-1.0); EOS # 0.1 10^3/uL (0.0-0.5); EOS % 1.3 % (0.0-3.0); HEMATOCRIT 43.9 % (42.0-52.0); HEMOGLOBIN 15.4 g/dl (13.5-17.5); LYMPH # 2.4 10^3/uL (1.5-5.0); LYMPH % 33.7 % (24.0-44.0); MEAN CORPUSCULAR HEMOGLOBIN 31.8 pg (27.0-33.0); MEAN CORPUSCULAR HGB CONC 35.1 g/dl (32.0-36.5); MEAN CORPUSCULAR VOLUME 90.5 fl (80.0-96.0); MONO # 0.7 10^3/uL (0.0-0.8); MONO % 9.4 % (2.0-8.0); NEUTROPHILS # 3.9 10^3/uL (1.5-8.5); NEUTROPHILS % 54.6 % (36.0-66.0); PLATELET COUNT, AUTOMATED 203 10^3/uL (150-450); RED BLOOD COUNT 4.85 10^6/uL (4.30-6.10)
[2021-01-25] MEDS ORDERED: LORazepam 2 MG/ML VIAL IV STA (20:45)
[2021-01-25 21:05] LABS: AMPHETAMINES LEVEL URINE NEGATIVE (NEGATIVE); BARBITURATES URINE NEGATIVE (NEGATIVE); BENZODIAZEPINES URINE NEGATIVE (NEGATIVE); CANNABINOIDS URINE NEGATIVE (NEGATIVE); COCAINE METABOLITE URINE NEGATIVE (NEGATIVE); METHADONE URINE NEGATIVE (NEGATIVE); OPIATES URINE NEGATIVE (NEGATIVE); PHENCYCLIDINE URINE NEGATIVE (NEGATIVE)
[2021-01-25 21:07] LABS: ACETAMINOPHEN LEVEL < 2.0 UG/ML (10.0-30.0); ALBUMIN 3.4 GM/DL (3.2-5.2); ALT/SGPT 41 U/L (12-78); BILIRUBIN,DIRECT < 0.1 MG/DL (0.0-0.2); BILIRUBIN,TOTAL 0.4 MG/DL (0.2-1.0); BLOOD UREA NITROGEN 8 MG/DL (7-18); CALCIUM LEVEL 8.2 MG/DL (8.8-10.2); CARBON DIOXIDE LEVEL 22 MEQ/L (21-32); CHLORIDE LEVEL 104 MEQ/L (98-107); CPK CREATINE PHOSPHOKINASE 156 U/L (39-308); CREATININE FOR GFR 0.57 MG/DL (0.70-1.30); ETHYL ALCOHOL (ETHANOL) 0.292 % (0.000-0.010); GLOMERULAR FILTRATION RATE > 60.0 (>49); GLUCOSE, FASTING 290 MG/DL (70-100); POTASSIUM SERUM 5.5 MEQ/L (3.5-5.1); SALICYLATE LEVEL < 1.7 MG/DL (5.0-30.0); SODIUM LEVEL 137 MEQ/L (136-145); THYROID STIMULATING HORMONE 0.098 uIU/ML (0.358-3.740); TOTAL PROTEIN 6.7 GM/DL (6.4-8.2)
[2021-01-26] MEDS ORDERED: LORazepam 2 MG/ML VIAL IV STA ×2 (01:14→03:17)
[2021-01-26] MEDS ORDERED: THIAMINE 100 MG TAB PO SCH (03:37)
[2021-01-26] MEDS ORDERED: LORazepam 2 MG TAB PO PRN ×2 (03:40→07:15)
[2021-01-26] MEDS ORDERED: LORazepam 2 MG/ML VIAL As Ordered ONE (04:01)
[2021-01-26] MEDS ORDERED: ACETAMINOPHEN 325 MG TAB PO ONE (07:50)
--- NOTE | 2021-01-26 08:31 | REP ---
INDICATION: fall, etoh. COMPARISON: 12/10/2020 TECHNIQUE: Unenhanced scans were obtained FINDINGS: Hip there is no displacement of midline structures. A lacunar infarct involves the thalamus on the right side. There is an old infarct in the posterior aspect of the right parietal lobe. The 3rd and lateral ventricles show normal size configuration. There is no evidence of hemorrhage, mass effect, edema. There is no interval change compared with the previous dated 12/10/2020. The brainstem and posterior fossa are unremarkable. IMPRESSION: No acute intracranial process. <Electronically signed by Koffi Morton > 01/26/21 3850
[2021-01-26] MEDS ORDERED: MULTIVITAMINS/MINERALS THERAP 1 TAB PO SCH (09:00)
[2021-01-26] MEDS ORDERED: FOLIC ACID 1 MG TAB PO SCH (09:00)
--- NOTE | 2021-01-26 09:00 | ECGEPIP ---
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
[2021-01-26 09:26] VITALS: BP 142/80
--- NOTE | 2021-01-28 08:29 | REP ---
INDICATION: fall, etoh. Repeat dictation. Preliminary report is provided at the time of the exam by kaitlynn CORONEL. COMPARISON: Comparison CT study of the cervical spine December 10, 2020.. TECHNIQUE: Helical scanning is acquired and overlapping 2 mm high resolution axial images were generated and reviewed at bone and soft tissue window settings. Coronal and sagittal multiplanar re-formations images are generated. FINDINGS: There is no evidence of cervical spine element fracture. No skull base fracture is seen. Cervical vertebral body heights are preserved. Alignment is normal. Facet joints are normally aligned bilaterally at each cervical level on multiplanar re-formations images. There is no evidence of intraspinal or paraspinal hematoma. No extra vertebral abnormality is seen. There are degenerative spondylosis changes in the cervical spine as seen on the prior study. These are unchanged. There is straightening of the normal cervical lordosis. IMPRESSION: Degenerative spondylosis changes again noted. No traumatic abnormality seen.. <Electronically signed by Miguelangel Plata > 01/28/21 [id number]
== END 2021-01-26 09:30 | disposition home or self-care (01) ==
LOC: M ED 19:08
DX: F10.129 Alcohol abuse with intoxication, unspecified (principal); R00.0 Tachycardia, unspecified; G89.29 Other chronic pain; M54.9 Dorsalgia, unspecified; M47.892 Other spondylosis, cervical region; Z79.82 Long term (current) use of aspirin; Z79.4 Long term (current) use of insulin; Z79.899 Other long term (current) drug therapy; Z91.89 Other specified personal risk factors, not elsewhere classified; Z88.8 Allergy status to other drugs, medicaments and biological substances
CPT/HCPCS: 70450; 72125; 80048; 80076; 80143; 80307; 82077; 82550; 84443; 85025; 93005; 93041; 94760; 96361; 96374; 96376; 99285; J2060

== ENCOUNTER 2021-01-27 00:38 | Emergency (ER) | payer MEDICAID ==
[~2021-01-27] VITALS: Ht 180.3 cm; Wt 79.5 kg
--- NOTE | 2021-01-28 08:36 | REP ---
INDICATION: fall from standing. Repeat dictation. Preliminary report is provided at the time of the exam by kaitlynn DAVISON. COMPARISON: Comparison abdominal CT study April 06, 2020.. TECHNIQUE: Helical scanning is acquired and 4 mm axial images re-formatted. Coronal and sagittal MPR images are provided. FINDINGS: There is straightening of the normal lumbar lordosis. Lumbar vertebral body heights are preserved. Alignment is normal. There is no evidence of spondylolysis or spondylolisthesis. No fracture or collapse is evident. Vascular calcification is seen in a normal caliber aorta. No paravertebral hematoma or intraspinal hematoma is appreciated. No lumbar disc protrusion is appreciated. IMPRESSION: No traumatic abnormality noted. Minimal degenerative changes. <Electronically signed by Miguelangel Plata > 01/28/21 [id number]
--- NOTE | 2021-01-28 08:38 | REP ---
INDICATION: fall from standing. Repeat dictation. Preliminary report is provided at the time of the exam by kaitlynn DAVISON. COMPARISON: Comparison study is from 25 January 2021.. TECHNIQUE: Helical scanning is acquired and overlapping 2 mm high resolution axial images were generated and reviewed at bone and soft tissue window settings. Coronal and sagittal multiplanar re-formations images are generated. FINDINGS: There is no evidence of cervical spine element fracture. No skull base fracture is seen. Cervical vertebral body heights are preserved. Alignment is normal. Facet joints are normally aligned bilaterally at each cervical level on multiplanar re-formations images. There is no evidence of intraspinal or paraspinal hematoma. No extra vertebral abnormality is seen. There are degenerative spondylosis changes in the cervical spine as previously noted most pronounced at C5-6 and C6-7. There is straightening of the normal cervical lordosis. Vascular calcification is noted. IMPRESSION: Degenerative spondylosis changes again noted. No traumatic abnormality.. <Electronically signed by Miguelangel Plata > 01/28/21 0855
--- NOTE | 2021-01-28 08:40 | REP ---
INDICATION: fall from standing. Repeat dictation. Preliminary report is provided at the time of the exam by kaitlynn CORONEL. COMPARISON: Comparison head CT study is from 25 January 2021.. TECHNIQUE: Helical scanning is acquired. 5 mm axial images were reformatted. Coronal MPR images were generated. FINDINGS: Bone window settings demonstrate an intact bony calvarium. There is no evidence of skull fracture or incidental bony calvarial lesion. The visualized paranasal sinuses appear clear. No intraorbital abnormality is seen. On soft tissue window setting images; the lateral, third, and fourth ventricles are normal in size and position. Garsia-white differentiation pattern is normal above and below the tentorium. There are is no evidence of intracranial hemorrhage. No mass, edema, infarction, or midline shift is seen. No extra-axial fluid collection is appreciated. Vascular calcification, generalized volume loss, and small vessel changes are again noted. There is an old small cortical infarct in the right parietal lobe and an old lacunar infarct is seen in the right basal ganglia/thalamus. These are unchanged. IMPRESSION: Chronic findings. No acute intracranial abnormality.. <Electronically signed by Miguelangel Plata > 01/28/21 0850
== END 2021-01-27 01:55 | disposition left against medical advice (07) ==
LOC: M ED 00:38
DX: Z53.21 Procedure and treatment not carried out due to patient leaving prior to being seen by health care provider (principal)

== ENCOUNTER 2021-01-27 02:09 | Emergency (ER) | payer MEDICAID ==
[~2021-01-27] VITALS: Ht 180.3 cm; Wt 79.5 kg
[2021-01-27 02:45] LABS: BASO # 0.1 10^3/uL (0.0-0.2); BASO % 0.6 % (0.0-1.0); EOS # 0.1 10^3/uL (0.0-0.5); EOS % 1.1 % (0.0-3.0); HEMATOCRIT 41.4 % (42.0-52.0); HEMOGLOBIN 14.3 g/dl (13.5-17.5); LYMPH # 2.9 10^3/uL (1.5-5.0); LYMPH % 33.9 % (24.0-44.0); MEAN CORPUSCULAR HEMOGLOBIN 31.4 pg (27.0-33.0); MEAN CORPUSCULAR HGB CONC 34.5 g/dl (32.0-36.5); MONO # 0.9 10^3/uL (0.0-0.8); MONO % 10.8 % (2.0-8.0); NEUTROPHILS # 4.6 10^3/uL (1.5-8.5); NEUTROPHILS % 53.4 % (36.0-66.0); PLATELET COUNT, AUTOMATED 172 10^3/uL (150-450); RED BLOOD COUNT 4.55 10^6/uL (4.30-6.10); WHITE BLOOD COUNT 8.6 10^3/uL (4.0-10.0)
[2021-01-27 03:25] LABS: ACETAMINOPHEN LEVEL 2.5 UG/ML (10.0-30.0); ALBUMIN 3.5 GM/DL (3.2-5.2); ALT/SGPT 34 U/L (12-78); BILIRUBIN,DIRECT 0.3 MG/DL (0.0-0.2); BILIRUBIN,TOTAL 0.9 MG/DL (0.2-1.0); BLOOD UREA NITROGEN 8 MG/DL (7-18); CALCIUM LEVEL 8.2 MG/DL (8.8-10.2); CARBON DIOXIDE LEVEL 21 MEQ/L (21-32); CHLORIDE LEVEL 101 MEQ/L (98-107); CK-MB VALUE MASS 2.9 NG/ML (<3.6); CPK CREATINE PHOSPHOKINASE 154 U/L (39-308); CREATININE FOR GFR 0.66 MG/DL (0.70-1.30); ETHYL ALCOHOL (ETHANOL) 0.169 % (0.000-0.010); GLOMERULAR FILTRATION RATE > 60.0 (>49); GLUCOSE, FASTING 232 MG/DL (70-100); MB/CK RELATIVE INDEX 1.88 (< OR =4); POTASSIUM SERUM 3.5 MEQ/L (3.5-5.1); SALICYLATE LEVEL < 1.7 MG/DL (5.0-30.0); SODIUM LEVEL 137 MEQ/L (136-145); THYROID STIMULATING HORMONE 0.905 uIU/ML (0.358-3.740); TOTAL PROTEIN 6.2 GM/DL (6.4-8.2); TROPONIN I < 0.02 NG/ML (< 0.10)
[2021-01-27] MEDS ORDERED: MORPHINE 4 MG/ML 1ML VIAL/SYRINGE (J2270) IV ONE ×2 (03:35→04:30)
[2021-01-27 04:18] LABS: AMPHETAMINES LEVEL URINE NEGATIVE (NEGATIVE); BARBITURATES URINE NEGATIVE (NEGATIVE); BENZODIAZEPINES URINE NEGATIVE (NEGATIVE); CANNABINOIDS URINE NEGATIVE (NEGATIVE); COCAINE METABOLITE URINE NEGATIVE (NEGATIVE); METHADONE URINE NEGATIVE (NEGATIVE); OPIATES URINE NEGATIVE (NEGATIVE); PHENCYCLIDINE URINE NEGATIVE (NEGATIVE)
[2021-01-27 04:25] LABS: INR 1.05; PROTHROMBIN TIME 14.1 SECONDS (12.7-14.5)
[2021-01-27 04:26] LABS: PARTIAL THROMBOPLASTIN TIME 29.6 SECONDS (25.9-37.0)
[2021-01-27] MEDS ORDERED: MORPHINE 4 MG/ML 1ML VIAL/SYRINGE (J2270) IV PRN (04:40)
[2021-01-27] MEDS ORDERED: LABETALOL 100MG/20ML VIAL IV STA (04:50)
[2021-01-27 04:52] LABS: RSV AMPLIFICATION NEGATIVE (NEGATIVE)
[2021-01-27] MEDS ORDERED: NS 2,390 ML in IV 1 EA IV ONE (05:10)
[2021-01-27 05:24] VITALS: BP 159/103
--- NOTE | 2021-01-27 09:06 | ECGEPIP ---
[facility] - ED Test Date: 2021-01-27 Pat Name: JUANA ROMEO Department: Room: - Gender: Male Front Desk: [facility] : 1960 Requested By: HEAVENLY Mccloud Order Number: [id number] Reading MD: Shelton Perez Measurements Intervals [place] Rate: 99 P: 22 IN: 156 QRS: -33 QRSD: 76 T: 41 QT: 370 QTc: 474 Interpretive Statements Normal sinus rhythm Borderline left axis deviation SIMILAR TO 01/25/21 Electronically Signed on 01-27-2021 9:06:11 EDT by Shelton Perez
--- NOTE | 2021-01-28 08:25 | REP ---
INDICATION: Altered Mental Status. Repeat dictation. Preliminary report is provided at the time of the exam by kaitlynn CORONEL. COMPARISON: Comparison study January 27, 2021. Short interval follow-up study. 25 January 2021 study is also reviewed.. TECHNIQUE: Helical scanning is acquired. 5 mm axial images were reformatted. Coronal MPR images were generated. FINDINGS: Preliminary digital file system installer radiograph is unremarkable. The patient is edentulous. Visualized paranasal sinuses are clear. Bony calvarium shows a subtle linear nondisplaced left parietal bone fracture. No intraorbital abnormality is seen. Vascular calcification is again observed at the skull base. On soft tissue window settings, there is mild generalized volume loss. There is an old right parietal lobe cortical infarction and an old lacunar infarct is seen in the right basal ganglia, thalamus. Small-vessel atherosclerotic changes are seen. On the current examination, there is a small quantity of subarachnoid hemorrhage visible in the floor of the anterior cranial fossa on the right which is a new finding compared with the study done 1 hour earlier. No parenchymal hematoma is seen. No mass or midline shift is seen. No other extra-axial fluid collection is seen. IMPRESSION: A small quantity of acute subarachnoid hemorrhage has developed in the right inferior frontal lobe region at the floor of the anterior cranial fossa. Linear nondisplaced fracture of the left parietal bone. <Electronically signed by Miguelangel Plata > 01/28/21 [id number]
--- NOTE | 2021-01-28 08:32 | REP ---
INDICATION: fall, ams. Repeat dictation. Preliminary report is provided at the time of the exam by kaitlynn CORONEL. COMPARISON: Comparison study is from January 27, 2021 at 1:31 a.m... TECHNIQUE: Helical scanning is acquired and overlapping 2 mm high resolution axial images were generated and reviewed at bone and soft tissue window settings. Coronal and sagittal multiplanar re-formations images are generated. FINDINGS: There is no evidence of cervical spine element fracture. No skull base fracture is seen. Cervical vertebral body heights are preserved. Alignment is normal. Facet joints are normally aligned bilaterally at each cervical level on multiplanar re-formations images. There is no evidence of intraspinal or paraspinal hematoma. No extra vertebral abnormality is seen. Degenerative disc disease is again noted at multiple levels most pronounced at C5-6 and C6-7. This is unchanged. No fracture or other acute bony abnormality is appreciated. There is straightening of the normal cervical lordosis. IMPRESSION: Degenerative spondylosis changes as previously noted. No acute traumatic abnormality.. <Electronically signed by Miguelangel Plata > 01/28/21 9923
== END 2021-01-27 05:42 | disposition short-term general hospital (02) ==
LOC: M ED 02:09
DX: S02.0XXA Fracture of vault of skull, initial encounter for closed fracture (principal); S06.6X0A Traumatic subarachnoid hemorrhage without loss of consciousness, initial encounter; W01.10XA Fall on same level from slipping, tripping and stumbling with subsequent striking against unspecified object, initial encounter; Y92.410 Unspecified street and highway as the place of occurrence of the external cause; Y93.01 Activity, walking, marching and hiking; Y99.8 Other external cause status; M54.9 Dorsalgia, unspecified; G89.29 Other chronic pain; F11.20 Opioid dependence, uncomplicated; R26.81 Unsteadiness on feet; Z79.4 Long term (current) use of insulin; Z79.82 Long term (current) use of aspirin; Z79.899 Other long term (current) drug therapy; Z91.048 Other nonmedicinal substance allergy status; Z88.8 Allergy status to other drugs, medicaments and biological substances; Z86.73 Personal history of transient ischemic attack (TIA), and cerebral infarction without residual deficits
CPT/HCPCS: 70450; 72125; 80048; 80076; 80143; 80307; 82077; 82140; 82550; 82553; 83605; 84443; 85025; 85610; 85730; 87631; 93005; 93041; 94760; 96374; 96375; 96376; 99285; J2270

== ENCOUNTER 2021-02-01 11:12 | Inpatient (IN) | payer MEDICAID ==
[~2021-02-01] VITALS: Ht 180.3 cm; Wt 76.4 kg
[2021-02-01] MEDS ORDERED: GLUCOSE 4GM CHEW TABLET PO PRN (12:50)
[2021-02-01] MEDS ORDERED: DEXTROSE 50% 50 ML SYRINGE IV PRN (12:50)
[2021-02-01] MEDS ORDERED: GLUCAGON INJ 1MG VIAL SC PRN (12:50)
[2021-02-01] MEDS ORDERED: BISACODYL 10 MG SUPP PR PRN (12:50)
--- NOTE | 2021-02-01 13:00 | HPEPDOC ---
Die Caster Note DATE OF ADMISSION: 02-01-21 DATE OF SERVICE: 02-01-21 TIME OF ADMISSION: Please refer to physician's admission order. SOURCE OF ADMISSION INFORMATION: [facility] record and patient CHIEF COMPLAINT: bilateral SAH and right frontal lobe ICH HISTORY OF PRESENT ILLNESS: 50M pmh COPD, HTN, GERD, Hepatitis C, low back pain, peripheral polyneuropathy due to DM, depression/anxiety, cirrhosis, ETOH abuse, dupuytrens contractures who fell and his head while on aspirin and presented to [facility] on 01-28-21 where CTH showed, A small quantity of acute subarachnoid hemorrhage has developed in the right inferior frontal lobe region at the floor of the anterior cranial fossa. Linear nondisplaced fracture of the left parietal bone for which he was transferred to [facility] and admitted to the neuro ICU where further imaging revealed a right frontal intracranial hemorrhage and bilateral subarachnoid hemorrhages. He was treated for ETOH withdrawal, given hypertonic saline for his cerebral edema in addition to salt tabs, and placed on 7 day course of Keppra for seizure prophylaxis, but due to thrombocytopenia was switched to vimpat. He had mobility and ADLs impairments below his prior level of function and deemed medically appropriate for discharge to ARU on 02-01-21. REVIEW OF SYSTEMS: The following is a completed review of systems and has been reviewed. Review of systems otherwise unremarkable. PAIN: Patient self reports +headache EYES: No recent vision changes EARS, NOSE, & THROAT: +dysphagia CARDIOVASCULAR: Denies chest pain or palpitations PULMONARY: Denies shortness of breath GASTROINTESTINAL: +constipation and +diarrhea (chronic vacillation) GENITOURINARY: denies dysuria MUSCULOSKELETAL: generalized weakness NEUROLOGICAL: +peripheral polyneuropathy HEMATOLOGICAL: denies easy bruising SKIN: denies rash PSYCHIATRIC: +anxious All other review of systems found to be negative. PAST MEDICAL HISTORY: as per HPI PAST SURGICAL HISTORY: Dupuytrens contracture release, tonsillectomy, endoscopy, liver biopsy, left hand surgery ALLERGIES: Please see below. MEDICATIONS: Please see below. FAMILY HISTORY: DM, kidney disease, cardiac, colon cancer SOCIAL HISTORY: + etoh, no smoking/illicit drugs DIET: puree PHYSICAL EXAMINATION: VITAL SIGNS: Please see below. GENERAL: Pleasant and cooperative. No acute distress. HEENT: PERRL. Extraocular movements intact. Clear conjunctiva CARDIOVASCULAR: [Regular rate and rhythm. No murmurs, rubs, or gallops LUNGS: Clear to auscultation bilaterally. No wheezes. No rhonchi ABDOMEN: Soft, nontender, nondistended. Positive bowel sounds. Normal active bowel sounds NEUROLOGICAL: Alert and oriented times three. Cranial nerves II through XII grossly intact. Sensation decreased to light touch in stocking pattern EXTREMITIES: 4\\5 strength bilateral upper extremities. 4/5 bilat hip flexors and knee extension, 0/5 bilat ankle DF and EHL SKIN: bilat ankles and feet with hyperpigmentation LABORATORY DATA: Please see below. IMAGING:Imaging documentation personally reviewed by record FUNCTIONAL STATUS: Premorbid: Independent with all activities of daily life as well as mobility On Admission: Mod- Assist for bed mobility, functional transfers, ambulation, dressing, toileting, bathing GOALS: Mod-I for bed mobility, functional transfers, ambulation, dressing, toileting, bathing ASSESSMENT:60-year-old M with past medical history of HTN, diabetes, ETOH abuse, gastroparesis who presents status post traumatic bilateral SAH and right frontal ICH PLAN: 1. Rehab- PT/OT advance mobility and ADLs, strengthen/stretch/maintain ROM all 4 limbs -[employer] for dysphagia and cog, on puree solids 2. Neuro- s/p fall with traumatic bilateral SAH and right frontal lobe ICH with left parietal bone fracture- with mobility impairments, cont 7 day course of seizure prophylaxis, had been switched from Keppra to Vimpat due to worsening thrombocytopenia -cont NaCl tabs for cerebral edema, will taper -f/u neurosurgeon Dr. Billy in 2 weeks -cont thiamine, folic acid for neuroprotection in setting of chronic ETOH use -propranol 10mg TID for dysautonomia due to TBI -seroquel prn for agitation, avoid benzodiazepines due to allergy resulting in worsening agitation -peripheral polyneuropathy due to DM cont gabapentin 3. CArdiac- -elevated blood pressures will stat amlodipine and hydralazine (with holding parameters) should improve with better pain management, propranolol also added for dysautonomia in setting of TBI -patient's ASA for cardio protection on hold until cleared by neurosurgery -HLD cont statin -last ECHo showing signs of diastolic impairments, will monitor for fluid overload, daily weights -medicine consulted to assist in overall management 4. Resp- hx of COPD cont fluticasone and Combivent, monitor for infection 5. Endo- hx of DM with peripheral polyneuropathy and gastroparesis -cont levemir and ISS 6. GI- gastroparesis due to DM cont reglan 5mg with meals, zofran prn -SImethicone -protonix for ppx 6. DVT ppx- lovenox, teds 7. Pain-tylenol, norco, lidoderm patch, flexeril 8. Dispo- tbd POST ADMISSION PHYSICIAN EVALUATION: Medical and functional status: Description of medical status, medical assessment: As above. Rehabilitation diagnosis and current and prior cold morbid medical conditions as above. Risk of complications and plans to mitigate them as above. Description of functional status current status is as above. Prior status as above. Status compared to preadmission: There are no clinically significant differences between the patient's current status and the information described on the preadmission screening document. Treatment plan anticipated: Treatment plan is as described above. Required disciplines including physical therapy, occupational therapy, others as noted above Intensity of services: 3 hours a day, 6 days a week. Special considerations: There are no specific special or safety considerations that would likely preclude immediate implementation of an intensive rehabilitation program or subsequently influence the plan of care. ATTESTATION: Considering all the information above, it is my best judgment that this patient requires intensive rehabilitation therapy as described above and an inpatient hospital environment due to the complexity of nursing, medical, and rehabilitation needs required by the patient. Furthermore, this patient can reasonably be expected to participate in an benefit from an inpatient rehabilitation stay with an interdisciplinary team approach to the delivery of rehabilitation care under the direction and supervision of rehabilitation physician. PROGNOSIS: good ESTIMATED LENGTH OF STAY:10-14 days. PROJECTED DISCHARGE DESTINATION: Home with family support and any durable medical equipment required to increase functional safety and mobility. TIME SPENT COUNSELING AND COORDINATING INITIAL CARE: Greater than 70 minutes. Vital Signs Vital Signs Date Time Temp Pulse Resp B/P (MAP) Pulse Ox O2 Delivery O2 Flow Rate FiO2 02/01/21 15:20 97.8 104 18 158/78 (104) 96 Room Air Home Medications Scheduled Atorvastatin Calcium (Atorvastatin Calcium) 10 Mg Tab, 10 MG PO DAILY, (Reported) Duloxetine Hcl (Cymbalta) 60 Mg Capsule.dr, 60 MG PO DAILY, (Reported) Gabapentin (Gabapentin) 600 Mg Tablet, 600 MG PO TID, (Reported) Insulin Glargine (Lantus) 100 Unit/1 Ml Vial, 20 UNITS SC BID, (Reported) Insulin Human Lispro (Humalog) 1 Units/0.01 Ml Inj, 1 DOSE SC AC, (Reported) PER SLIDING SCALE Lacosamide (Vimpat) 100 Mg Tablet, 100 MG PO BID, (Reported) Metoclopramide Hcl (Reglan) 5 Mg Tablet, 1 TAB PO TID 1 hour prior to meals Multivitamins (Thera M Plus Tablet) 1 Each Tablet, 1 TAB PO DAILY, (Reported) Salmeterol/Fluticasone (Advair 250-50 Diskus) 1 Each Blst.w.dev, 1 PUFF INH BID, (Reported) Sodium Chloride (Sodium Chloride) 1 Gm Tablet, 2 GM PO TID, (Reported) Tamsulosin Hcl (Tamsulosin HCl) 0.4 Mg Capsule, 0.4 MG PO DAILY, (Reported) Scheduled PRN Albuterol Sulfate (Proair Hfa) 108 Mcg/Act Aer, 2 PUFF INH QID PRN for SHORTNESS OF BREATH, (Reported) Cyclobenzaprine HCl (Cyclobenzaprine HCl) 10 Mg Tablet, 10 MG PO Q6H PRN for MUSCLE SPASMS, (Reported) Diclofenac Sodium (Diclofenac Sodium) 1% 100GM Gel..gram., 1 APPLIC TOP TID PRN for PAIN, (Reported) APPLY TO BOTH HANDS Hydrocodone/Acetaminophen (Hydrocodone-Acetamin 10-325 mg) 1 Each Tablet, 1 TAB PO QID PRN for PAIN, (Reported) Meclizine HCl (Meclizine HCl) 25 Mg Tablet, 25 MG PO TID PRN for NAUSEA OR VOMITING, (Reported) Polyethylene Glycol 3350 (Miralax) 119 Gm Powder, 17 GM PO DAILY PRN for CONSTIPATION, (Reported) Allergies Coded Allergies: TAPE (Verified Allergy, Unknown, 01/27/21) midazolam (Verified Adverse Reaction, Unknown, "go crazy" , 01/27/21) A-FIB/CHADSVASC A-FIB History Current/History of A-Fib/PAF?: No Current PO Anticoag Therapy: No MAURICE NOLAN MD Feb 01, 2021 13:00
[2021-02-01 15:20] VITALS: BP 158/78
[2021-02-01] MEDS ORDERED: VIMP100T PO (15:57)
[2021-02-01] MEDS ORDERED: GABA600T4 PO (15:57)
[2021-02-01] MEDS ORDERED: SODI1TAB6 PO (15:57)
[2021-02-01] MEDS ORDERED: VITMTA PO (15:57)
[2021-02-01] MEDS ORDERED: ADV250INH INH (15:57)
[2021-02-01] MEDS: REMEDY PHYTOPLEX Z-GUARD PASTE 113GM TUBE (FROM STOREROOM PRODUCT) TOP SCH ×2 (16:00→20:58)
[2021-02-01] MEDS: SODIUM CHLORIDE 1 GM TAB PO SCH ×2 (16:00→20:56)
[2021-02-01] MEDS ORDERED: HOME MED LIST COMPLETE! XX SCH (16:05)
[2021-02-01] MEDS: METOCLOPRAMIDE 5 MG TAB PO SCH (17:54)
[2021-02-01] MEDS: GABAPENTIN 300 MG CAP PO SCH ×2 (17:54→20:57)
[2021-02-01] MEDS: HumaLOG INSULIN (NovoLOG) PER UNIT SC SCH ×2 (17:56→20:57)
[2021-02-01] MEDS: FLUTICASONE HFA 220 MCG 12 GM INHALER (FLOVENT) INH SCH (19:33)
[2021-02-01] MEDS: COMBIVENT RESPIMAT 100-20MCG INHALER 4GM INH SCH (19:33)
[2021-02-01 20:00] VITALS: BP 150/73
[2021-02-01] MEDS: SIMETHICONE 80MG CHEW TAB PO SCH (20:56)
[2021-02-01] MEDS: LACOSAMIDE 50 MG TAB (VIMPAT) PO SCH (20:57)
[2021-02-01] MEDS: SENNA 8.6 MG TAB (SENOKOT) PO SCH (20:57)
[2021-02-01] MEDS: DOCUSATE SODIUM 100MG CAPSULE PO SCH (20:57)
[2021-02-01] MEDS: LEVEMIR (INSULIN DETEMIR) 1 UNITS/0.01ML SC SCH (20:58)
[2021-02-01] MEDS ORDERED: FLUTICASONE HFA 110 MCG 12 GM INHALER (FLOVENT) INH SCH (21:00)
[2021-02-01] MEDS: NORCO, ANEXSIA 5/325MG TABLET (HYDROcodone/ACETAMINOPHEN) PO PRN (21:06)
[2021-02-02] MEDS: ACETAMINOPHEN TAB 650MG DOSE (2X325MG) PO PRN ×2 (01:48→10:35)
[2021-02-02] MEDS: NORCO, ANEXSIA 5/325MG TABLET (HYDROcodone/ACETAMINOPHEN) PO PRN (05:12)
[2021-02-02 06:12] VITALS: BP 152/87
[2021-02-02] MEDS: COMBIVENT RESPIMAT 100-20MCG INHALER 4GM INH SCH ×3 (07:02→20:26)
[2021-02-02 07:21] LABS: BASO % 0.3 % (0.0-1.0); EOS # 0.1 10^3/uL (0.0-0.5); EOS % 1.9 % (0.0-3.0); HEMATOCRIT 40.3 % (42.0-52.0); HEMOGLOBIN 13.9 g/dl (13.5-17.5); LYMPH # 1.1 10^3/uL (1.5-5.0); LYMPH % 16.3 % (24.0-44.0); MEAN CORPUSCULAR HEMOGLOBIN 31.5 pg (27.0-33.0); MEAN CORPUSCULAR HGB CONC 34.5 g/dl (32.0-36.5); MEAN CORPUSCULAR VOLUME 91.4 fl (80.0-96.0); MONO % 15.6 % (2.0-8.0); NEUTROPHILS # 4.4 10^3/uL (1.5-8.5); NEUTROPHILS % 65.6 % (36.0-66.0); PLATELET COUNT, AUTOMATED 148 10^3/uL (150-450); RED BLOOD COUNT 4.41 10^6/uL (4.30-6.10); WHITE BLOOD COUNT 6.7 10^3/uL (4.0-10.0)
[2021-02-02] MEDS: THIAMINE 200MG 2ML VIAL IM SCH (07:41)
[2021-02-02] MEDS: HumaLOG INSULIN (NovoLOG) PER UNIT SC SCH ×4 (07:42→21:00)
[2021-02-02] MEDS: ENOXAPARIN 40MG/0.4ML SYRINGE (J1650 PER 10MG) SC SCH (07:45)
[2021-02-02] MEDS: DOCUSATE SODIUM 100MG CAPSULE PO SCH ×2 (07:46→21:07)
[2021-02-02] MEDS: GABAPENTIN 300 MG CAP PO SCH ×2 (07:46→16:13)
[2021-02-02] MEDS: ATORVASTATIN 10 MG TAB PO SCH (07:46)
[2021-02-02] MEDS: FOLIC ACID 1 MG TAB PO SCH (07:47)
[2021-02-02] MEDS: MULTIVITAMINS/MINERALS THERAP 1 TAB PO SCH (07:47)
[2021-02-02] MEDS: METOCLOPRAMIDE 5 MG TAB PO SCH ×3 (07:47→16:12)
[2021-02-02] MEDS: LACOSAMIDE 50 MG TAB (VIMPAT) PO SCH ×2 (07:47→21:07)
[2021-02-02] MEDS: MAGNESIUM OXIDE 400MG TAB (MAG-OX) PO SCH (07:47)
[2021-02-02] MEDS: PANTOPRAZOLE 40MG TAB (PROTONIX) PO SCH (07:48)
[2021-02-02] MEDS: SODIUM CHLORIDE 1 GM TAB PO SCH ×3 (07:48→21:08)
[2021-02-02] MEDS: DULoxetine 30 MG CAP (CYMBALTA) PO SCH (07:48)
[2021-02-02] MEDS: TAMSULOSIN 0.4 MG CAP PO SCH (07:48)
[2021-02-02] MEDS: SIMETHICONE 80MG CHEW TAB PO SCH ×3 (07:48→21:08)
[2021-02-02 07:50] LABS: ALBUMIN 2.9 GM/DL (3.2-5.2); ALT/SGPT 28 U/L (12-78); BILIRUBIN,TOTAL 0.7 MG/DL (0.2-1.0); BLOOD UREA NITROGEN 8 MG/DL (7-18); CALCIUM LEVEL 8.5 MG/DL (8.8-10.2); CARBON DIOXIDE LEVEL 31 MEQ/L (21-32); CHLORIDE LEVEL 101 MEQ/L (98-107); CREATININE FOR GFR 0.57 MG/DL (0.70-1.30); GLOMERULAR FILTRATION RATE > 60.0 (>49); GLUCOSE, FASTING 198 MG/DL (70-100); POTASSIUM SERUM 4.1 MEQ/L (3.5-5.1); SODIUM LEVEL 136 MEQ/L (136-145)
[2021-02-02] MEDS: LIDOCAINE 5% (LIDODERM) PATCH TD SCH (07:50)
[2021-02-02] MEDS: REMEDY PHYTOPLEX Z-GUARD PASTE 113GM TUBE (FROM STOREROOM PRODUCT) TOP SCH ×3 (07:54→21:10)
[2021-02-02] MEDS ORDERED: THIAMINE 100 MG TAB PO SCH (09:00)
[2021-02-02] MEDS: POTASSIUM CHLORIDE 10 MEQ SR TABLET PO SCH (09:28)
[2021-02-02] MEDS: PROPRANOLOL 10 MG TAB PO SCH ×3 (11:38→21:08)
[2021-02-02] MEDS: **hydrALAZINE HCL** 25 MG TAB PO SCH ×3 (11:38→23:29)
[2021-02-02] MEDS: ANEXSIA, NORCO 7.5MG/325MG TABLET(HYDROCODONE/APAP) PO PRN ×3 (11:39→21:09)
[2021-02-02] MEDS: FLUTICASONE HFA 220 MCG 12 GM INHALER (FLOVENT) INH SCH ×2 (12:29→20:27)
[2021-02-02 14:00] VITALS: BP 130/86
--- NOTE | 2021-02-02 15:55 | CR.PDOC ---
General Date of Consultation: Feb 02, 2021 Referring Provider: MAURICE NOLAN MD Consultation REASON FOR CONSULT: Management of chronic medical issues HISTORY OF PRESENT ILLNESS: Patient is a 50-year-old male who presented to [facility] on 01/28/[address] of the head showed a subarachnoid hemorrhage, as well as a linear nondisplaced fracture of the left parietal lobe. He was subseq uently transferred to [facility] and admitted to the neuro ICU where further imaging revealed a right frontal intracranial hemorrhage and bilateral subarachnoid hemorrhages. He was treated for cerebral edema with hypertonic saline and salt tabs, and was originally given Keppra for seizure prophylaxis but this was switched to Vimpat due to thrombocytopenia. He was also treated for alcohol withdrawal while there as well. Subsequently he was deemed appropriate for admission to the acute rehab unit and was discharged to to [facility] on 02/01/2021 CODE STATUS: Full code PAST MEDICAL HISTORY: COPD Hypertension GERD Hepatitis C Low back pain Peripheral polyneuropathy due to diabetes mellitus Depression Anxiety Cirrhosis Alcohol abuse Dupuytren's contractures Recent fall with bilateral subarachnoid hemorrhage, nondisplaced fracture of left parietal bone, right frontal intracranial hemorrhage PAST SURGICAL HISTORY: Dupuytren's contracture release Tonsillectomy Liver biopsy Left hand surgery Prior endoscopy SOCIAL HISTORY: Denies smoking or illicit drug use. It certainly appears that he has an issue with alcoholism, when asked when his last drink was the patient reports that it was 4 years ago, but his who was in the room shakes her head and says indicating that this is not true. She states that he quit drinking completely today FAMILY HISTORY: Diabetes mellitus type 2 Kidney disease Heart disease Colon cancer REVIEW OF SYSTEMS: Patient reports that he feels weak, and he was not able to complete all of the physical therapy sessions today, but he was encouraged to keep going as he will continue to get stronger. His does mention that he seems confused at times, perhaps. This is likely secondary to his head trauma, perhaps TBI, or cerebral edema. Otherwise, he does not have any other complaints at this time. PHYSICAL EXAMINATION: General: Awake, alert, oriented x3. He does not appear to be in any acute distress at this time. HEENT: Head normocephalic atraumatic, conjunctiva are pink, sclera are nonicteric, buccal mucosa is pink and moist with no lesions in the oropharynx, he has dentures.. Hearing is grossly intact to conversation. Respiratory: Clear to auscultation bilaterally with no wheezes, rales, or rhonchi. Cardiovascular: Regular rate and rhythm, with no rubs, gallops, or murmur. Abdomen: Soft, nontender, nondistended, no hepatosplenomegaly appreciated. Bowel sounds present. Extremities: 2+ pulses in the radial and dorsalis pedis bilaterally. No evidence of clubbing or cyanosis. ASSESSMENT/PLAN: Rehabilitation status post fall, parietal fracture, subarachnoid hemorrhages, right frontal intracranial hemorrhage -Rehabilitation plan per recommendation from PM&R team -It appears that he already has an appointment to follow-up with his neurosurgeon in 2 weeks. Seizure prophylaxis -Continue Vimpat for a total of 7 days Cerebral edema -Continue salt tabs, may begin tapering them over the next few days. Diabetes mellitus type 2 -Continue monitoring of glucose Gastroparesis -continue with Reglan with meals, Zofran as needed, simethicone GERD -continue Protonix Polyneuropathy -Continue gabapentin COPD -Continue scheduled and as needed inhalers and nebulizers Hypertension -Continue amlodipine, hydralazine, propranolol Hyperlipidemia -Continue atorvastatin Benign prostatic hypertrophy -Continue tamsulosin History of alcohol abuse -Continue with thiamine, folic acid, and multivitamin supplementation -Continue Seroquel on an as-needed basis for agitation DVT prophylaxis -Lovenox Thank you for the kind consultation. If you have any issues or would like us to reevaluate the patient, feel free to contact our hospitalist team. Vital Signs/I&O Vital Signs Date Time Temp Pulse Resp B/P (MAP) Pulse Ox O2 Delivery O2 Flow Rate FiO2 02/02/21 14:00 97.4 87 18 130/86 (101) 96 Room Air I&O- Last 24 Hours up to 6 AM 02/02/21 06:00 Intake Total 720 ml Output Total 950 ml Balance -230 ml Laboratory Data Labs 24H Laboratory Tests 2 02/01/21 17:22: Bedside Glucose (Misc Panel) 211H 02/01/21 20:42: Bedside Glucose (Misc Panel) 227H 02/02/21 05:46: Bedside Glucose (Misc Panel) 209H 02/02/21 06:48: Immature Granulocyte % (Auto) 0.3, Neutrophils (%) (Auto) 65.6, Lymphocytes (%) (Auto) 16.3L, Monocytes (%) (Auto) 15.6H, Eosinophils (%) (Auto) 1.9, Basophils (%) (Auto) 0.3, Neutrophils # (Auto) 4.4, Lymphocytes # (Auto) 1.1L, Monocytes # (Auto) 1.0H, Eosinophils # (Auto) 0.1, Basophils # (Auto) 0.0, Nucleated Red Blood Cells % (auto) 0.0, Anion Gap 4L, Glomerular Filtration Rate > 60.0, Ca lcium Level 8.5L, Magnesium Level 2.0, Total Bilirubin 0.7, Aspartate Amino Transf (AST/SGOT) 15, Alanine Aminotransferase (ALT/SGPT) 28, Alkaline Phosphatase 76, Total Protein 6.0L, Albumin 2.9L, Albumin/Globulin Ratio 0.9 02/02/21 11:28: Bedside Glucose (Misc Panel) 275H CBC/BMP Laboratory Tests 02/02/21 06:48 Allergies Coded Allergies: TAPE (Verified Allergy, Unknown, 01/27/21) midazolam (Verified Adverse Reaction, Unknown, "go crazy" , 01/27/21) Home Medications Scheduled Atorvastatin Calcium (Atorvastatin Calcium) 10 Mg Tab, 10 MG PO DAILY, (Reported) Duloxetine Hcl (Cymbalta) 60 Mg Capsule.dr, 60 MG PO DAILY, (Reported) Gabapentin (Gabapentin) 600 Mg Tablet, 600 MG PO TID, (Reported) Insulin Glargine (Lantus) 100 Unit/1 Ml Vial, 20 UNITS SC BID, (Reported) Insulin Human Lispro (Humalog) 1 Units/0.01 Ml Inj, 1 DOSE SC AC, (Reported) PER SLIDING SCALE Lacosamide (Vimpat) 100 Mg Tablet, 100 MG PO BID, (Reported) Metoclopramide Hcl (Reglan) 5 Mg Tablet, 1 TAB PO TID, #90 1 hour prior to meals Multivitamins (Thera M Plus Tablet) 1 Each Tablet, 1 TAB PO DAILY, (Reported) Salmeterol/Fluticasone (Advair 250-50 Diskus) 1 Each Blst.w.dev, 1 PUFF INH BID, (Reported) Sodium Chloride (Sodium Chloride) 1 Gm Tablet, 2 GM PO TID, (Reported) Tamsulosin Hcl (Tamsulosin HCl) 0.4 Mg Capsule, 0.4 MG PO DAILY, (Reported) Scheduled PRN Albuterol Sulfate (Proair Hfa) 108 Mcg/Act Aer, 2 PUFF INH QID PRN for SHORTNESS OF BREATH, (Reported) Cyclobenzaprine HCl (Cyclobenzaprine HCl) 10 Mg Tablet, 10 MG PO Q6H PRN for MUSCLE SPASMS, (Reported) Diclofenac Sodium (Diclofenac Sodium) 1% 100GM Gel..gram., 1 APPLIC TOP TID PRN for PAIN, (Reported) APPLY TO BOTH HANDS Hydrocodone/Acetaminophen (Hydrocodone-Acetamin 10-325 mg) 1 Each Tablet, 1 TAB PO QID PRN for PAIN, (Reported) Meclizine HCl (Meclizine HCl) 25 Mg Tablet, 25 MG PO TID PRN for NAUSEA OR VOMITING, (Reported) Polyethylene Glycol 3350 (Miralax) 119 Gm Powder, 17 GM PO DAILY PRN for CONSTIPATION, (Reported) JOYCE ARMENTA DO Feb 02, 2021 15:26
[2021-02-02] MEDS: RAMELTEON 8 MG TAB (ROZEREM) PO SCH (21:00)
[2021-02-02] MEDS: SENNA 8.6 MG TAB (SENOKOT) PO SCH (21:09)
[2021-02-02] MEDS: **NOTE PATIENT COMMENT** MISC XX SCH (21:10)
[2021-02-02] MEDS: LEVEMIR (INSULIN DETEMIR) 1 UNITS/0.01ML SC SCH (21:10)
[2021-02-02 21:32] VITALS: BP 125/89
[2021-02-03] MEDS: CYCLOBENZAPRINE 5MG TABLET PO PRN ×2 (02:10→23:51)
[2021-02-03] MEDS: ANEXSIA, NORCO 7.5MG/325MG TABLET(HYDROCODONE/APAP) PO PRN ×4 (02:53→21:07)
[2021-02-03] MEDS: ONDANSETRON 4 MG TAB PO PRN ×2 (03:57→11:45)
[2021-02-03] MEDS: **hydrALAZINE HCL** 25 MG TAB PO SCH ×4 (05:21→23:45)
[2021-02-03 06:24] VITALS: BP 129/88
[2021-02-03] MEDS: METOCLOPRAMIDE 5 MG TAB PO SCH ×3 (07:34→17:07)
[2021-02-03] MEDS: HumaLOG INSULIN (NovoLOG) PER UNIT SC SCH ×4 (07:35→21:00)
[2021-02-03] MEDS: COMBIVENT RESPIMAT 100-20MCG INHALER 4GM INH SCH ×3 (07:49→19:47)
[2021-02-03] MEDS: FLUTICASONE HFA 220 MCG 12 GM INHALER (FLOVENT) INH SCH ×2 (07:49→19:47)
[2021-02-03] MEDS: DOCUSATE SODIUM 100MG CAPSULE PO SCH ×2 (08:03→21:00)
[2021-02-03] MEDS: LEVEMIR (INSULIN DETEMIR) 1 UNITS/0.01ML SC SCH ×2 (08:05→21:02)
[2021-02-03] MEDS: THIAMINE 200MG 2ML VIAL IM SCH (08:05)
[2021-02-03] MEDS: ENOXAPARIN 40MG/0.4ML SYRINGE (J1650 PER 10MG) SC SCH (08:06)
[2021-02-03] MEDS: POTASSIUM CHLORIDE 10 MEQ SR TABLET PO SCH (08:07)
[2021-02-03] MEDS: SIMETHICONE 80MG CHEW TAB PO SCH ×3 (08:08→21:00)
[2021-02-03] MEDS: GABAPENTIN 300 MG CAP PO SCH ×2 (08:08→16:10)
[2021-02-03] MEDS: ATORVASTATIN 10 MG TAB PO SCH (08:08)
[2021-02-03] MEDS: DULoxetine 30 MG CAP (CYMBALTA) PO SCH (08:09)
[2021-02-03] MEDS: PANTOPRAZOLE 40MG TAB (PROTONIX) PO SCH (08:09)
[2021-02-03] MEDS: FOLIC ACID 1 MG TAB PO SCH (08:09)
[2021-02-03] MEDS: TAMSULOSIN 0.4 MG CAP PO SCH (08:09)
[2021-02-03] MEDS: MULTIVITAMINS/MINERALS THERAP 1 TAB PO SCH (08:09)
[2021-02-03] MEDS: LACOSAMIDE 50 MG TAB (VIMPAT) PO SCH ×2 (08:09→21:00)
[2021-02-03] MEDS: PROPRANOLOL 10 MG TAB PO SCH ×3 (08:10→21:01)
[2021-02-03] MEDS: LIDOCAINE 5% (LIDODERM) PATCH TD SCH ×2 (08:10→08:17)
[2021-02-03] MEDS: SODIUM CHLORIDE 1 GM TAB PO SCH ×3 (08:10→21:00)
[2021-02-03] MEDS: MAGNESIUM OXIDE 400MG TAB (MAG-OX) PO SCH (08:11)
[2021-02-03] MEDS: REMEDY PHYTOPLEX Z-GUARD PASTE 113GM TUBE (FROM STOREROOM PRODUCT) TOP SCH ×3 (09:00→21:03)
[2021-02-03] MEDS: QUEtiapine FUMARATE 12.5 MG HALF-TAB PO PRN ×2 (09:11→23:51)
[2021-02-03 14:00] VITALS: BP 122/79
[2021-02-03] MEDS: SENNA 8.6 MG TAB (SENOKOT) PO SCH (21:00)
[2021-02-03] MEDS: RAMELTEON 8 MG TAB (ROZEREM) PO SCH (21:00)
[2021-02-03] MEDS: **NOTE PATIENT COMMENT** MISC XX SCH (21:02)
[2021-02-03 22:00] VITALS: BP 116/71
[2021-02-04] MEDS: ANEXSIA, NORCO 7.5MG/325MG TABLET(HYDROCODONE/APAP) PO PRN ×2 (04:02→08:39)
[2021-02-04 06:00] VITALS: BP 137/94
[2021-02-04] MEDS: **hydrALAZINE HCL** 25 MG TAB PO SCH ×3 (06:15→17:58)
[2021-02-04 07:11] LABS: BLOOD UREA NITROGEN 11 MG/DL (7-18); CALCIUM LEVEL 8.5 MG/DL (8.8-10.2); CARBON DIOXIDE LEVEL 25 MEQ/L (21-32); CHLORIDE LEVEL 102 MEQ/L (98-107); CREATININE FOR GFR 0.61 MG/DL (0.70-1.30); GLOMERULAR FILTRATION RATE > 60.0 (>49); GLUCOSE, FASTING 253 MG/DL (70-100); POTASSIUM SERUM 4.2 MEQ/L (3.5-5.1); SODIUM LEVEL 133 MEQ/L (136-145)
[2021-02-04 07:12] LABS: BASO % 0.4 % (0.0-1.0); EOS # 0.1 10^3/uL (0.0-0.5); EOS % 1.1 % (0.0-3.0); HEMATOCRIT 37.2 % (42.0-52.0); LYMPH # 1.1 10^3/uL (1.5-5.0); LYMPH % 15.2 % (24.0-44.0); MEAN CORPUSCULAR HEMOGLOBIN 31.8 pg (27.0-33.0); MEAN CORPUSCULAR HGB CONC 34.9 g/dl (32.0-36.5); MONO # 1.1 10^3/uL (0.0-0.8); MONO % 16.2 % (2.0-8.0); NEUTROPHILS # 4.6 10^3/uL (1.5-8.5); NEUTROPHILS % 66.7 % (36.0-66.0); PLATELET COUNT, AUTOMATED 184 10^3/uL (150-450); RED BLOOD COUNT 4.09 10^6/uL (4.30-6.10)
[2021-02-04] MEDS: COMBIVENT RESPIMAT 100-20MCG INHALER 4GM INH SCH ×3 (08:00→20:00)
[2021-02-04] MEDS: ENOXAPARIN 40MG/0.4ML SYRINGE (J1650 PER 10MG) SC SCH (08:26)
[2021-02-04] MEDS: HumaLOG INSULIN (NovoLOG) PER UNIT SC SCH ×4 (08:27→20:52)
[2021-02-04] MEDS: MAGNESIUM OXIDE 400MG TAB (MAG-OX) PO SCH (08:27)
[2021-02-04] MEDS: POTASSIUM CHLORIDE 10 MEQ SR TABLET PO SCH (08:27)
[2021-02-04] MEDS: LEVEMIR (INSULIN DETEMIR) 1 UNITS/0.01ML SC SCH ×2 (08:27→20:53)
[2021-02-04] MEDS: FOLIC ACID 1 MG TAB PO SCH (08:28)
[2021-02-04] MEDS: PANTOPRAZOLE 40MG TAB (PROTONIX) PO SCH (08:28)
[2021-02-04] MEDS: DOCUSATE SODIUM 100MG CAPSULE PO SCH ×2 (08:28→20:50)
[2021-02-04] MEDS: TAMSULOSIN 0.4 MG CAP PO SCH (08:28)
[2021-02-04] MEDS: DULoxetine 30 MG CAP (CYMBALTA) PO SCH (08:28)
[2021-02-04] MEDS: GABAPENTIN 300 MG CAP PO SCH ×2 (08:29→15:42)
[2021-02-04] MEDS: METOCLOPRAMIDE 5 MG TAB PO SCH ×3 (08:29→17:58)
[2021-02-04] MEDS: SIMETHICONE 80MG CHEW TAB PO SCH ×3 (08:29→20:51)
[2021-02-04] MEDS: ATORVASTATIN 10 MG TAB PO SCH (08:29)
[2021-02-04] MEDS: PROPRANOLOL 10 MG TAB PO SCH ×3 (08:30→20:51)
[2021-02-04] MEDS: MULTIVITAMINS/MINERALS THERAP 1 TAB PO SCH (08:30)
[2021-02-04] MEDS: LACOSAMIDE 50 MG TAB (VIMPAT) PO SCH ×2 (08:30→20:51)
[2021-02-04] MEDS: THIAMINE 200MG 2ML VIAL IM SCH (08:31)
[2021-02-04] MEDS: LIDOCAINE 5% (LIDODERM) PATCH TD SCH (08:31)
[2021-02-04] MEDS: REMEDY PHYTOPLEX Z-GUARD PASTE 113GM TUBE (FROM STOREROOM PRODUCT) TOP SCH ×3 (08:32→20:53)
[2021-02-04] MEDS: SODIUM CHLORIDE 1 GM TAB PO SCH ×3 (08:38→20:49)
--- NOTE | 2021-02-04 09:25 | IPNPDOC ---
PM&R Progress Note DATE OF SERVICE: Feb 04, 2021 [facility] [employer] Progress Note Subjective: Patient stating his neuropathy is bothering him quite a bit and that the gabapentin does not help significantly. He also complains of back pain which is chronic and he believes would improve if his pain medication was scheduled. REVIEW OF SYSTEMS: The following is a completed review of systems and has been reviewed. Review of systems otherwise unremarkable. PAIN: Patient self reports +headache EYES: No recent vision changes EARS, NOSE, & THROAT: +dysphagia CARDIOVASCULAR: Denies chest pain or palpitations PULMONARY: Denies shortness of breath GASTROINTESTINAL: +constipation and +diarrhea (chronic vacillation) GENITOURINARY: denies dysuria MUSCULOSKELETAL: generalized weakness NEUROLOGICAL: +peripheral polyneuropathy HEMATOLOGICAL: denies easy bruising SKIN: denies rash PSYCHIATRIC: +anxious All other review of systems found to be negative. PHYSICAL EXAMINATION: VITAL SIGNS: Please see below. GENERAL: Pleasant and cooperative. No acute distress. HEENT: PERRL. Extraocular movements intact. Clear conjunctiva CARDIOVASCULAR: Regular rate and rhythm. No murmurs, rubs, or gallops LUNGS: Clear to auscultation bilaterally. No wheezes. No rhonchi ABDOMEN: Soft, mildly TTP throughout, no guarding nondistended. Positive bowel sounds. NEUROLOGICAL: Alert and oriented times three. Cranial nerves II through XII grossly intact. Sensation decreased to light touch in stocking pattern EXTREMITIES: 4\\5 strength bilateral upper extremities. 4/5 bilat hip flexors and knee extension, 0/5 bilat ankle DF and EHL SKIN: bilat ankles and feet with hyperpigmentation LABORATORY DATA: Please see below. ASSESSMENT:60-year-old M with past medical history of HTN, diabetes, ETOH abuse, gastroparesis who presents status post traumatic bilateral SAH and right frontal ICH PLAN: 1. 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 Neuro- s/p fall with traumatic bilateral SAH and right frontal lobe ICH with left parietal bone fracture- with mobility impairments, cont 7 day course of seizure prophylaxis, had been switched from Keppra to Vimpat due to worsening thrombocytopenia -cont NaCl tabs for cerebral edema, will taper if Na level remains stable -f/u neurosurgeon Dr. Billy in 2 weeks -cont thiamine, folic acid for neuroprotection in setting of chronic ETOH use -propranol 10mg TID for dysautonomia due to TBI -seroquel prn for agitation, avoid benzodiazepines due to allergy resulting in worsening agitation -peripheral polyneuropathy due to DM cont gabapentin, will add amitriptyline for nerve pain and lower dose of cymbalta to avoid serotonin syndrome 3. CArdiac- -elevated blood pressures cont amlodipine and hydralazine (with holding parameters), propranolol also added for dysautonomia in setting of TBI -patient's ASA for cardio protection on hold until cleared by neurosurgery -HLD cont statin -last ECHo showing signs of diastolic impairments, will monitor for fluid overload, daily weights -medicine consulted to assist in overall management 4. Resp- hx of COPD cont fluticasone and Combivent, monitor for infection 5. Endo- hx of DM with peripheral polyneuropathy and gastroparesis -cont levemir and ISS, will increase evening levemir 6. GI- gastroparesis due to DM cont reglan 5mg with meals, zofran prn -SImethicone -protonix for ppx 6. DVT ppx- lovenox, teds 7. Pain-tylenol, lidoderm patch, flexeril, will change norco to oxycodone 7.5 mg and schedule 4 times a day -patient is currently on cymbalta which I will start to cross taper with amitriptyline which will hopefully better treat his neuropathic pain 8. Dispo- tbd Allergies Coded Allergies: TAPE (Verified Allergy, Unknown, 01/27/21) midazolam (Verified Adverse Reaction, Unknown, "go crazy" , 01/27/21) Vital Signs Vital Signs Date Time Temp Pulse Resp B/P (MAP) Pulse Ox O2 Delivery O2 Flow Rate FiO2 02/04/21 08:39 18 02/04/21 08:30 83 121/70 02/04/21 06:00 98.7 97 Room Air Laboratory Data CBC/BMP Laboratory Tests 02/04/21 06:41 Labs 24H Laboratory Tests 2 02/03/21 11:19: Bedside Glucose (Misc Panel) 176H 02/03/21 16:19: Bedside Glucose (Misc Panel) 155H 02/03/21 20:02: Bedside Glucose (Misc Panel) 192H 02/04/21 06:41: Immature Granulocyte % (Auto) 0.4, Neutrophils (%) (Auto) 66.7H, Lymphocytes (%) (Auto) 15.2L, Monocytes (%) (Auto) 16.2H, Eosinophils (%) (Auto) 1.1, Basophils (%) (Auto) 0.4, Neutrophils # (Auto) 4.6, Lymphocytes # (Auto) 1.1L, Monocytes # (Auto) 1.1H, Eosinophils # (Auto) 0.1, Basophils # (Auto) 0.0, Nucleated Red Blood Cells % (auto) 0.0, Anion Gap 6L, Glomerular Filtration Rate > 60.0, Calcium Level 8.5L 02/04/21 07:04: Bedside Glucose (Misc Panel) 240H Current Medications Current Medications Current Medications Medications (Trade) Dose Ordered Sig/Kuldeep Route PRN Reason Start Time Stop Time Status Last Admin Dose Admin Acetaminophen (Tylenol Tab) 650 mg Q8HP PRN PO fever/MILD PAIN (PS 1-4) 02/01/21 12:50 02/02/21 10:35 Acetaminophen/ Hydrocodone Bitart (Anexsia, [place] 7.5mg/325mg) 1 tab Q4HP PRN PO PAIN > 5/10 02/02/21 10:25 02/04/21 08:39 Acetaminophen/ Hydrocodone Bitart (Bro[place], Anexsia 5/325) 1 tab Q6HP PRN PO MODERATE PAIN (PS 5-7) 02/01/21 12:50 02/02/21 10:25 DC 02/02/21 05:12 Albuterol/ Ipratropium (Combivent Respimat 100-20mcg) 1 puff RTID INH 02/01/21 20:00 02/03/21 19:47 Amlodipine Besylate (Norvasc) 10 mg DAILY PO 02/02/21 09:00 02/04/21 08:30 Atorvastatin Calcium (Lipitor) 10 mg DAILY PO 02/02/21 09:00 02/04/21 08:29 Bisacodyl (Dulcolax Suppository) 10 mg DAILYPRN PRN [place] CONSTIPATION 02/01/21 12:50 Cyclobenzaprine HCl (Flexeril) 5 mg Q8H PRN PO spasms 02/01/21 12:50 02/03/21 23:51 Dextrose (Dextrose 50%) 25 ml ASDIRECTED PRN IV SEE LABEL COMMENTS 02/01/21 12:50 Docusate Sodium (Colace) 100 mg BID PO 02/01/21 21:00 02/04/21 08:28 Duloxetine HCl (Cymbalta) 60 mg DAILY PO 02/02/21 09:00 02/04/21 08:28 Enoxaparin Sodium (Lovenox) 40 mg DAILY SC 02/02/21 09:00 02/04/21 08:26 Fluticasone Propionate (Flovent Hfa 220mcg) 2 puff RBID INH 02/01/21 20:00 02/03/21 07:49 Fluticasone Propionate (Flovent Hfa 110 Mcg) 2 puff BID INH 02/01/21 21:00 02/01/21 13:17 DC Folic Acid (Folic Acid) 1 mg DAILY PO 02/02/21 09:00 02/04/21 08:28 Gabapentin (Neurontin) 600 mg BID@0900,1600 PO 02/02/21 16:00 02/04/21 08:29 Gabapentin (Neurontin) 600 mg TID PO 02/01/21 16:00 02/02/21 10:25 DC 02/02/21 07:46 Glucagon (Glucagon) 1 mg ASDIRECTED PRN SC SEE LABEL COMMENTS 02/01/21 12:50 Glucose (Glucose) 16 GM ASDIRECTED PRN PO SEE LABEL COMMENTS 02/01/21 12:50 Home Med (Home Med List Complete!) ASDIRECTED XX 02/01/21 16:05 02/01/21 16:57 DC Hydralazine HCl (Apresoline) 25 mg Q6H PO 02/02/21 12:00 02/04/21 06:15 Insulin Detemir (Levemir Insulin) 5 units DAILY SC 02/03/21 09:00 02/04/21 08:27 Insulin Detemir (Levemir Insulin) 15 units QHS SC 02/01/21 21:00 02/03/21 21:02 Insulin Human Lispro (HumaLOG INSULIN) SEE PROTOCOL TABLE AC SC 02/01/21 17:30 02/04/21 08:27 Insulin Human Lispro (HumaLOG INSULIN) SEE PROTOCOL TABLE QHS SC 02/01/21 21:00 Lacosamide (Vimpat) 100 mg BID PO 02/01/21 21:00 02/04/21 08:30 Lidocaine (Lidoderm Patch) 1 patch DAILY TD 02/02/21 09:00 02/02/21 07:50 Magnesium Oxide (Mag-Ox) 400 mg DAILY PO 02/02/21 09:00 02/04/21 08:27 Metoclopramide HCl (Reglan) 5 mg AC PO 02/01/21 17:30 02/04/21 08:29 Multivitamins (Theragram-M) 1 tab DAILY PO 02/02/21 09:00 02/04/21 08:30 Non-Formulary Medication ( See Comment Field Below ) REMOVE LIDODERM PATCH DAILY@21 XX 02/02/21 21:00 02/03/21 21:02 Ondansetron HCl (Zofran) 4 mg Q6HP PRN PO NAUSEA 02/01/21 12:50 02/03/21 11:45 Pantoprazole Sodium (Protonix) 40 mg DAILY PO 02/02/21 09:00 02/04/21 08:28 Potassium Chloride (Micro-K Extencaps) 40 meq DAILY PO 02/02/21 09:00 02/04/21 08:27 Propranolol HCl (Inderal) 10 mg TID PO 02/02/21 12:00 02/04/21 08:30 Quetiapine Fumarate (SEROquel) 12.5 mg Q8H PRN PO agitation 02/01/21 12:50 02/03/21 23:51 Ramelteon (Rozerem) 8 mg QHS PO 02/02/21 21:00 02/03/21 21:00 Senna (Senokot) 1 tab QHS PO 02/01/21 21:00 02/03/21 21:00 Simethicone (Mylicon) 80 mg TID PO 02/01/21 21:00 02/04/21 08:29 Sodium Chloride (Sodium Chloride) 2 gm TID PO 02/01/21 16:00 02/04/21 08:38 Tamsulosin HCl (Flomax) 0.4 mg DAILY PO 02/02/21 09:00 02/04/21 08:28 Thiamine HCl (Thiamine HCl) 100 mg DAILY PO 02/02/21 09:00 02/01/21 13:19 DC Thiamine HCl (VITAMIN B1 INJection) 100 mg DAILY IM 02/02/21 09:00 02/04/21 08:31 MAURICE NOLAN MD Feb 04, 2021 09:25
[2021-02-04] MEDS ORDERED: oxyCODONE 5MG TAB PO PRN ×2 (10:20→11:50)
[2021-02-04] MEDS ORDERED: ACETAMINOPHEN 500 MG TAB PO PRN (10:20)
[2021-02-04] MEDS: ACETAMINOPHEN 500 MG TAB PO SCH ×3 (10:59→20:50)
[2021-02-04] MEDS ORDERED: PILL CUTTER 1 EACH XX PRN (12:00)
[2021-02-04] MEDS: FLUTICASONE HFA 220 MCG 12 GM INHALER (FLOVENT) INH SCH ×2 (13:19→20:00)
[2021-02-04 14:00] VITALS: BP 142/91
[2021-02-04] MEDS: oxyCODONE 5MG TAB PO SCH ×2 (15:44→18:00)
[2021-02-04 20:00] VITALS: BP 100/65
[2021-02-04] MEDS: SENNA 8.6 MG TAB (SENOKOT) PO SCH (20:50)
[2021-02-04] MEDS: RAMELTEON 8 MG TAB (ROZEREM) PO SCH (20:51)
[2021-02-04] MEDS: AMITRIPTYLINE 10MG TABLET PO SCH (20:52)
[2021-02-04] MEDS: **NOTE PATIENT COMMENT** MISC XX SCH (20:53)
[2021-02-05] MEDS: CYCLOBENZAPRINE 5MG TABLET PO PRN (02:31)
[2021-02-05] MEDS: oxyCODONE 5MG TAB PO SCH ×4 (05:35→17:37)
[2021-02-05] MEDS: **hydrALAZINE HCL** 25 MG TAB PO SCH ×4 (05:36→17:38)
[2021-02-05 06:00] VITALS: BP 139/87
[2021-02-05] MEDS: METOCLOPRAMIDE 5 MG TAB PO SCH ×3 (07:30→17:38)
[2021-02-05] MEDS: FLUTICASONE HFA 220 MCG 12 GM INHALER (FLOVENT) INH SCH ×2 (08:00→20:00)
[2021-02-05] MEDS: COMBIVENT RESPIMAT 100-20MCG INHALER 4GM INH SCH ×3 (08:00→20:32)
[2021-02-05] MEDS: REMEDY PHYTOPLEX Z-GUARD PASTE 113GM TUBE (FROM STOREROOM PRODUCT) TOP SCH ×3 (09:00→20:22)
[2021-02-05] MEDS ORDERED: traZODone 25MG PER 1/2 TABLET PO PRN (09:40)
[2021-02-05] MEDS: DOCUSATE SODIUM 100MG CAPSULE PO SCH ×2 (09:46→20:21)
[2021-02-05] MEDS: PANTOPRAZOLE 40MG TAB (PROTONIX) PO SCH (09:46)
[2021-02-05] MEDS: POTASSIUM CHLORIDE 10 MEQ SR TABLET PO SCH (09:46)
[2021-02-05] MEDS: TAMSULOSIN 0.4 MG CAP PO SCH (09:46)
[2021-02-05] MEDS: SODIUM CHLORIDE 1 GM TAB PO SCH ×3 (09:47→20:20)
[2021-02-05] MEDS: GABAPENTIN 300 MG CAP PO SCH ×3 (09:47→20:20)
[2021-02-05] MEDS: SIMETHICONE 80MG CHEW TAB PO SCH ×3 (09:47→20:20)
[2021-02-05] MEDS: DULoxetine 30 MG CAP (CYMBALTA) PO SCH (09:47)
[2021-02-05] MEDS: MULTIVITAMINS/MINERALS THERAP 1 TAB PO SCH (09:47)
[2021-02-05] MEDS: ACETAMINOPHEN 500 MG TAB PO SCH ×3 (09:48→20:20)
[2021-02-05] MEDS: MAGNESIUM OXIDE 400MG TAB (MAG-OX) PO SCH (09:49)
[2021-02-05] MEDS: FOLIC ACID 1 MG TAB PO SCH (09:49)
[2021-02-05] MEDS: LACOSAMIDE 50 MG TAB (VIMPAT) PO SCH ×2 (09:58→20:20)
[2021-02-05] MEDS: PROPRANOLOL 10 MG TAB PO SCH ×3 (09:59→20:21)
[2021-02-05] MEDS: THIAMINE 200MG 2ML VIAL IM SCH (10:00)
[2021-02-05] MEDS: ATORVASTATIN 10 MG TAB PO SCH (10:00)
[2021-02-05] MEDS: LEVEMIR (INSULIN DETEMIR) 1 UNITS/0.01ML SC SCH ×2 (10:01→20:19)
[2021-02-05] MEDS: ENOXAPARIN 40MG/0.4ML SYRINGE (J1650 PER 10MG) SC SCH (10:01)
[2021-02-05] MEDS: HumaLOG INSULIN (NovoLOG) PER UNIT SC SCH ×4 (10:02→20:21)
--- NOTE | 2021-02-05 11:41 | IPNPDOC ---
PM&R Progress Note DATE OF SERVICE: Feb 05, 2021 [employer] Progress Note Subjective: Patient stating he couldn't sleep last night because his back was very painful. He said the oxycodone helps him some, but he does not want to move because he is afraid it will hurt his back more. REVIEW OF SYSTEMS: The following is a completed review of systems and has been reviewed. Review of systems otherwise unremarkable. PAIN: Patient self reports +headache EYES: No recent vision changes EARS, NOSE, & THROAT: +dysphagia CARDIOVASCULAR: Denies chest pain or palpitations PULMONARY: Denies shortness of breath GASTROINTESTINAL: +constipation GENITOURINARY: denies dysuria MUSCULOSKELETAL: generalized weakness NEUROLOGICAL: +peripheral polyneuropathy HEMATOLOGICAL: denies easy bruising SKIN: denies rash PSYCHIATRIC: +anxious All other review of systems found to be negative. PHYSICAL EXAMINATION: VITAL SIGNS: Please see below. GENERAL: Pleasant and cooperative. No acute distress. HEENT: PERRL. Extraocular movements intact. Clear conjunctiva CARDIOVASCULAR: Regular rate and rhythm. No murmurs, rubs, or gallops LUNGS: Clear to auscultation bilaterally. No wheezes. No rhonchi ABDOMEN: Soft, mildly TTP throughout, no guarding nondistended. Positive bowel sounds. NEUROLOGICAL: Alert and oriented times three. Cranial nerves II through XII grossly intact. Sensation decreased to light touch in stocking pattern EXTREMITIES: 4\\5 strength bilateral upper extremities. 4/5 bilat hip flexors and knee extension, 0/5 bilat ankle DF and EHL SKIN: bilat ankles and feet with hyperpigmentation LABORATORY DATA: Please see below. ASSESSMENT:60-year-old M with past medical history of HTN, diabetes, ETOH abuse, gastroparesis who presents status post traumatic bilateral SAH and right frontal ICH PLAN: 1. 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 Neuro- s/p fall with traumatic bilateral SAH and right frontal lobe ICH with left parietal bone fracture- with mobility impairments, cont 7 day course of seizure prophylaxis, had been switched from Keppra to Vimpat due to worsening thrombocytopenia -cont NaCl tabs for cerebral edema, will taper if Na level remains stable -f/u neurosurgeon Dr. Beutler in 2 weeks -cont thiamine, folic acid for neuroprotection in setting of chronic ETOH use -propranol 10mg TID for dysautonomia due to TBI -seroquel prn for agitation, avoid benzodiazepines due to allergy resulting in worsening agitation -peripheral polyneuropathy due to DM cont gabapentin, will add amitriptyline for nerve pain and lower dose of cymbalta to avoid serotonin syndrome 3. CArdiac- -elevated blood pressures cont amlodipine and hydralazine (with holding parameters), propranolol also added for dysautonomia in setting of TBI -patient's ASA for cardio protection on hold until cleared by neurosurgery -HLD cont statin -last ECHo showing signs of diastolic impairments, will monitor for fluid overload, daily weights -medicine consulted to assist in overall management 4. Resp- hx of COPD cont fluticasone and Combivent, monitor for infection 5. Endo- hx of DM with peripheral polyneuropathy and gastroparesis -cont levemir and ISS, will increase daytime levemir 6. GI- gastroparesis due to DM cont reglan 5mg with meals, zofran prn -SImethicone -protonix for ppx 6. DVT ppx- lovenox, teds 7. Pain-patient has chronic back pain and chronic headaches now exacerbated by new TBI, cont tylenol, lidoderm patch, flexeril, will increase oxycodone to 10 mg and schedule 4 times a day -will increase gabapentin as well for neuropathic pain, patient is currently on cymbalta which I will start to cross taper with amitriptyline which will hopefully better treat his neuropathic pain 8. Psych- insomnia- will add trazodone 9. Dispo- tbd- discussed with patient and later with his over the phone about learning to move and participate in therapy despite having back pain and that lying in bed will only make the pain worse and is chance of recovery less--both expressed understanding Allergies Coded Allergies: TAPE (Verified Allergy, Unknown, 01/27/21) midazolam (Verified Adverse Reaction, Unknown, "go crazy" , 01/27/21) Vital Signs Vital Signs Date Time Temp Pulse Resp B/P (MAP) Pulse Ox O2 Delivery O2 Flow Rate FiO2 02/05/21 09:59 80 139/87 02/05/21 09:44 18 Room Air 02/05/21 06:00 97.8 98 Laboratory Data Labs 24H Laboratory Tests 2 02/04/21 16:38: Bedside Glucose (Misc Panel) 276H 02/04/21 19:47: Bedside Glucose (Misc Panel) 221H 02/05/21 05:10: Bedside Glucose (Misc Panel) 162H 02/05/21 11:28: Bedside Glucose (Misc Panel) 154H Current Medications Current Medications Current Medications Medications (Trade) Dose Ordered Sig/Kuldeep Route PRN Reason Start Time Stop Time Status Last Admin Dose Admin Acetaminophen (Tylenol Tab) 650 mg Q8HP PRN PO fever/MILD PAIN (PS 1-4) 02/01/21 12:50 02/04/21 10:20 DC 02/02/21 10:35 Acetaminophen (Tylenol Tab) 1,000 mg TID PO 02/04/21 09:00 02/05/21 09:48 Acetaminophen (Tylenol Tab) 1,000 mg TID PRN PO MODERATE PAIN (PS 5-7) 02/04/21 10:20 02/04/21 10:42 DC Acetaminophen/ Hydrocodone Bitart (Anexsia, [place] 7.5mg/325mg) 1 tab Q4HP PRN PO PAIN > 5/10 02/02/21 10:25 02/04/21 10:20 DC 02/04/21 08:39 Acetaminophen/ Hydrocodone Bitart ([place], Anexsia 5/325) 1 tab Q6HP PRN PO MODERATE PAIN (PS 5-7) 02/01/21 12:50 02/02/21 10:25 DC 02/02/21 05:12 Albuterol/ Ipratropium (Combivent Respimat 100-20mcg) 1 puff RTID INH 02/01/21 20:00 02/03/21 19:47 Amitriptyline HCl (Elavil) 10 mg QHS PO 02/04/21 21:00 02/04/21 20:52 Amlodipine Besylate (Norvasc) 10 mg DAILY PO 02/02/21 09:00 02/05/21 09:47 Atorvastatin Calcium (Lipitor) 10 mg DAILY PO 02/02/21 09:00 02/05/21 10:00 Bisacodyl (Dulcolax Suppository) 10 mg DAILYPRN PRN [place] CONSTIPATION 02/01/21 12:50 Cyclobenzaprine HCl (Flexeril) 5 mg Q8H PRN PO spasms 02/01/21 12:50 02/05/21 02:31 Dextrose (Dextrose 50%) 25 ml ASDIRECTED PRN IV SEE LABEL COMMENTS 02/01/21 12:50 Docusate Sodium (Colace) 100 mg BID PO 02/01/21 21:00 02/05/21 09:46 Duloxetine HCl (Cymbalta) 30 mg DAILY PO 02/05/21 09:00 02/05/21 09:47 Duloxetine HCl (Cymbalta) 60 mg DAILY PO 02/02/21 09:00 02/04/21 11:50 DC 02/04/21 08:28 Enoxaparin Sodium (Lovenox) 40 mg DAILY SC 02/02/21 09:00 02/05/21 10:01 Fluticasone Propionate (Flovent Hfa 220mcg) 2 puff RBID INH 02/01/21 20:00 02/03/21 07:49 Fluticasone Propionate (Flovent Hfa 110 Mcg) 2 puff BID INH 02/01/21 21:00 02/01/21 13:17 DC Folic Acid (Folic Acid) 1 mg DAILY PO 02/02/21 09:00 02/05/21 09:49 Gabapentin (Neurontin) 600 mg BID@0900,1600 PO 02/02/21 16:00 02/05/21 09:47 Gabapentin (Neurontin) 600 mg TID PO 02/01/21 16:00 02/02/21 10:25 DC 02/02/21 07:46 Gabapentin (Neurontin) 900 mg QHS PO 02/05/21 21:00 Glucagon (Glucagon) 1 mg ASDIRECTED PRN SC SEE LABEL COMMENTS 02/01/21 12:50 Glucose (Glucose) 16 GM ASDIRECTED PRN PO SEE LABEL COMMENTS 02/01/21 12:50 Home Med (Home Med List Complete!) ASDIRECTED XX 02/01/21 16:05 02/01/21 16:57 DC Hydralazine HCl (Apresoline) 25 mg Q6H PO 02/02/21 12:00 02/05/21 05:36 Insulin Detemir (Levemir Insulin) 5 units DAILY SC 02/03/21 09:00 02/05/21 09:19 DC 02/04/21 08:27 Insulin Detemir (Levemir Insulin) 8 units DAILY SC 02/05/21 09:00 02/05/21 10:01 Insulin Detemir (Levemir Insulin) 15 units QHS SC 02/01/21 21:00 02/04/21 09:24 DC 02/03/21 21:02 Insulin Detemir (Levemir Insulin) 20 units QHS SC 02/04/21 21:00 02/04/21 20:53 Insulin Human Lispro (HumaLOG INSULIN) SEE PROTOCOL TABLE AC SC 02/01/21 17:30 02/05/21 10:02 Insulin Human Lispro (HumaLOG INSULIN) SEE PROTOCOL TABLE QHS SC 02/01/21 21:00 Lacosamide (Vimpat) 100 mg BID PO 02/01/21 21:00 02/05/21 23:00 02/05/21 09:58 Lidocaine (Lidoderm Patch) 1 patch DAILY TD 02/02/21 09:00 02/05/21 09:36 DC 02/02/21 07:50 Lidocaine (Lidoderm Patch) 1 patch QHS TD 02/05/21 21:00 Magnesium Oxide (Mag-Ox) 400 mg DAILY PO 02/02/21 09:00 02/05/21 09:49 Metoclopramide HCl (Reglan) 5 mg AC PO 02/01/21 17:30 02/04/21 17:58 Multivitamins (Theragram-M) 1 tab DAILY PO 02/02/21 09:00 02/05/21 09:47 Non-Formulary Medication ( See Comment Field Below ) REMOVE LIDODERM PATCH DAILY@0900 XX 02/06/21 09:00 Non-Formulary Medication ( See Comment Field Below ) REMOVE LIDODERM PATCH DAILY@21 XX 02/02/21 21:00 02/05/21 09:45 DC 02/03/21 21:02 Ondansetron HCl (Zofran) 4 mg Q6HP PRN PO NAUSEA 02/01/21 12:50 02/03/21 11:45 Oxycodone HCl (Roxicodone, Oxyir) 7.5 mg Q4HP PRN PO MODERATE/SEVERE PAIN (PS 5-10) 02/04/21 10:20 02/04/21 11:50 DC 02/04/21 10:58 Oxycodone HCl (Roxicodone, Oxyir) 7.5 mg QHS PRN PO SEVERE PAIN (PS 8-10) 02/04/21 11:50 02/05/21 09:37 DC 02/04/21 20:49 Oxycodone HCl (Roxicodone, Oxyir) 7.5 mg QID@0600,1000,1400,1800 PO 02/04/21 14:00 02/05/21 09:44 Oxycodone HCl (Roxicodone, Oxyir) 10 mg QHS PRN PO SEVERE PAIN (PS 8-10) 02/05/21 09:35 Pantoprazole Sodium (Protonix) 40 mg DAILY PO 02/02/21 09:00 02/05/21 09:46 Potassium Chloride (Micro-K Extencaps) 40 meq DAILY PO 02/02/21 09:00 02/05/21 09:46 Propranolol HCl (Inderal) 10 mg TID PO 02/02/21 12:00 02/05/21 09:59 Quetiapine Fumarate (SEROquel) 12.5 mg Q8H PRN PO agitation 02/01/21 12:50 02/05/21 09:38 DC 02/03/21 23:51 Ramelteon (Rozerem) 8 mg QHS PO 02/02/21 21:00 02/05/21 09:38 DC 02/04/21 20:51 Senna (Senokot) 1 tab QHS PO 02/01/21 21:00 02/04/21 20:50 Simethicone (Mylicon) 80 mg TID PO 02/01/21 21:00 02/05/21 09:47 Sodium Chloride (Sodium Chloride) 2 gm TID PO 02/01/21 16:00 02/05/21 09:47 Tamsulosin HCl (Flomax) 0.4 mg DAILY PO 02/02/21 09:00 02/05/21 09:46 Thiamine HCl (Thiamine HCl) 100 mg DAILY PO 02/02/21 09:00 02/01/21 13:19 DC Thiamine HCl (VITAMIN B1 INJection) 100 mg DAILY IM 02/02/21 09:00 02/05/21 10:00 Trazodone HCl (Desyrel) 25 mg QHS PO 02/05/21 21:00 Trazodone HCl (Desyrel) 25 mg QHSP PRN PO INSOMNIA 02/05/21 09:40 MAURICE NOLAN MD Feb 05, 2021 11:41
[2021-02-05 14:00] VITALS: BP 134/82
[2021-02-05] MEDS: NICOTINE 7 MG/24 HR TRANSDERMAL TD SCH (17:32)
[2021-02-05 20:00] VITALS: BP 114/73
[2021-02-05] MEDS: LIDOCAINE 5% (LIDODERM) PATCH TD SCH (20:19)
[2021-02-05] MEDS: traZODone 25MG PER 1/2 TABLET PO SCH (20:19)
[2021-02-05] MEDS: SENNA 8.6 MG TAB (SENOKOT) PO SCH (20:20)
[2021-02-05] MEDS: AMITRIPTYLINE 10MG TABLET PO SCH (20:20)
[2021-02-06] MEDS: oxyCODONE 5MG TAB PO SCH ×4 (05:34→17:58)
[2021-02-06] MEDS: **hydrALAZINE HCL** 25 MG TAB PO SCH ×3 (05:34→12:13)
[2021-02-06 06:00] VITALS: BP 135/87
[2021-02-06 06:34] LABS: BASO % 0.3 % (0.0-1.0); EOS # 0.1 10^3/uL (0.0-0.5); EOS % 1.1 % (0.0-3.0); HEMATOCRIT 38.1 % (42.0-52.0); HEMOGLOBIN 13.1 g/dl (13.5-17.5); LYMPH # 1.2 10^3/uL (1.5-5.0); LYMPH % 18.9 % (24.0-44.0); MEAN CORPUSCULAR HEMOGLOBIN 31.8 pg (27.0-33.0); MEAN CORPUSCULAR HGB CONC 34.4 g/dl (32.0-36.5); MEAN CORPUSCULAR VOLUME 92.5 fl (80.0-96.0); MONO # 1.3 10^3/uL (0.0-0.8); NEUTROPHILS # 3.7 10^3/uL (1.5-8.5); NEUTROPHILS % 59.2 % (36.0-66.0); PLATELET COUNT, AUTOMATED 220 10^3/uL (150-450); RED BLOOD COUNT 4.12 10^6/uL (4.30-6.10); WHITE BLOOD COUNT 6.3 10^3/uL (4.0-10.0)
[2021-02-06 06:52] LABS: BLOOD UREA NITROGEN 8 MG/DL (7-18); CALCIUM LEVEL 8.6 MG/DL (8.8-10.2); CARBON DIOXIDE LEVEL 27 MEQ/L (21-32); CHLORIDE LEVEL 105 MEQ/L (98-107); GLOMERULAR FILTRATION RATE > 60.0 (>49); GLUCOSE, FASTING 137 MG/DL (70-100); POTASSIUM SERUM 4.1 MEQ/L (3.5-5.1); SODIUM LEVEL 137 MEQ/L (136-145)
[2021-02-06] MEDS: COMBIVENT RESPIMAT 100-20MCG INHALER 4GM INH SCH ×3 (07:43→20:00)
[2021-02-06] MEDS: FLUTICASONE HFA 220 MCG 12 GM INHALER (FLOVENT) INH SCH ×2 (07:59→20:00)
[2021-02-06] MEDS: METOCLOPRAMIDE 5 MG TAB PO SCH ×3 (08:13→17:04)
[2021-02-06] MEDS: HumaLOG INSULIN (NovoLOG) PER UNIT SC SCH ×4 (08:14→21:00)
[2021-02-06] MEDS: LEVEMIR (INSULIN DETEMIR) 1 UNITS/0.01ML SC SCH ×2 (08:14→20:36)
[2021-02-06] MEDS: THIAMINE 200MG 2ML VIAL IM SCH (08:14)
[2021-02-06] MEDS: FOLIC ACID 1 MG TAB PO SCH (08:14)
[2021-02-06] MEDS: SIMETHICONE 80MG CHEW TAB PO SCH ×3 (08:14→20:35)
[2021-02-06] MEDS: TAMSULOSIN 0.4 MG CAP PO SCH (08:15)
[2021-02-06] MEDS: MAGNESIUM OXIDE 400MG TAB (MAG-OX) PO SCH (08:15)
[2021-02-06] MEDS: SODIUM CHLORIDE 1 GM TAB PO SCH ×3 (08:15→20:34)
[2021-02-06] MEDS: MULTIVITAMINS/MINERALS THERAP 1 TAB PO SCH (08:15)
[2021-02-06] MEDS: GABAPENTIN 300 MG CAP PO SCH ×3 (08:15→20:32)
[2021-02-06] MEDS: DULoxetine 30 MG CAP (CYMBALTA) PO SCH (08:15)
[2021-02-06] MEDS: POTASSIUM CHLORIDE 10 MEQ SR TABLET PO SCH (08:16)
[2021-02-06] MEDS: PANTOPRAZOLE 40MG TAB (PROTONIX) PO SCH (08:16)
[2021-02-06] MEDS: ACETAMINOPHEN 500 MG TAB PO SCH ×3 (08:16→20:33)
[2021-02-06] MEDS: ATORVASTATIN 10 MG TAB PO SCH (08:16)
[2021-02-06] MEDS: DOCUSATE SODIUM 100MG CAPSULE PO SCH ×2 (08:16→20:32)
[2021-02-06] MEDS: PROPRANOLOL 10 MG TAB PO SCH ×3 (08:17→20:34)
[2021-02-06] MEDS: ENOXAPARIN 40MG/0.4ML SYRINGE (J1650 PER 10MG) SC SCH (08:17)
[2021-02-06] MEDS: **NOTE PATIENT COMMENT** MISC XX SCH (08:18)
[2021-02-06] MEDS: REMEDY PHYTOPLEX Z-GUARD PASTE 113GM TUBE (FROM STOREROOM PRODUCT) TOP SCH ×3 (08:19→20:36)
[2021-02-06] MEDS: NICOTINE 7 MG/24 HR TRANSDERMAL TD SCH (08:19)
[2021-02-06] MEDS: CYCLOBENZAPRINE 5MG TABLET PO PRN (08:22)
--- NOTE | 2021-02-06 09:56 | IPNPDOC ---
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 He reports longstanding history of dizziness and has been orthostatic with therapy. Discussion had with patient and bedside about starting Mestinon for autonomic orthostatic hypotension and they both agreed to a trial. REVIEW OF SYSTEMS: The following is a completed review of systems and has been reviewed. Review of systems otherwise unremarkable. PAIN: Patient self reports +headache EYES: No recent vision changes EARS, NOSE, & THROAT: +dysphagia CARDIOVASCULAR: Denies chest pain or palpitations PULMONARY: Denies shortness of breath GASTROINTESTINAL: +constipation GENITOURINARY: denies dysuria MUSCULOSKELETAL: generalized weakness NEUROLOGICAL: +peripheral polyneuropathy HEMATOLOGICAL: denies easy bruising SKIN: denies rash PSYCHIATRIC: +anxious All other review of systems found to be negative. PHYSICAL EXAMINATION: VITAL SIGNS: Please see below. GENERAL: Pleasant and cooperative. No acute distress. HEENT: PERRL. Extraocular movements intact. Clear conjunctiva CARDIOVASCULAR: Regular rate and rhythm. No murmurs, rubs, or gallops LUNGS: Clear to auscultation bilaterally. No wheezes. No rhonchi ABDOMEN: Soft, mildly TTP throughout, no guarding nondistended. Positive bowel sounds. NEUROLOGICAL: Alert and oriented times three. Cranial nerves II through XII grossly intact. Sensation decreased to light touch in stocking pattern EXTREMITIES: 4\\5 strength bilateral upper extremities. 4/5 bilat hip flexors and knee extension, 0/5 bilat ankle DF and EHL SKIN: bilat ankles and feet with hyperpigmentation LABORATORY DATA: Please see below. ASSESSMENT:60-year-old M with past medical history of HTN, diabetes, ETOH abuse, gastroparesis who presents status post traumatic bilateral SAH and right frontal ICH PLAN: 1. 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 Neuro- s/p fall with traumatic bilateral SAH and right frontal lobe ICH with left parietal bone fracture- with mobility impairments, completed 7 day course of seizure prophylaxis, had been switched from Keppra to Vimpat due to worsening thrombocytopenia -cont NaCl tabs for cerebral edema, will taper if Na level remains stable -f/u neurosurgeon Dr. Billy in 2 weeks -cont thiamine, folic acid for neuroprotection in setting of chronic ETOH use -propranol 10mg TID for dysautonomia/agitation due to TBI with holding par ameters -seroquel prn for agitation, avoid benzodiazepines due to allergy resulting in worsening agitation -peripheral polyneuropathy due to DM cont gabapentin, cont amitriptyline for nerve pain and lower dose of cymbalta to avoid serotonin syndrome 3. CArdiac- -elevated blood pressures, but also noted to have orthostatics, patient states he has felt dizzy on and off for years, will order orthostatics vitals, adjust BP meds, and start mestinon for autonomic orthostatic hypotension propranolol also added for dysautonomia/agitation in setting of TBI -patient's ASA for cardio protection on hold until cleared by neurosurgery -HLD cont statin -last ECHo showing signs of diastolic impairments, will monitor for fluid overload, daily weights, fluid restrict -medicine consulted to assist in overall management 4. Resp- hx of COPD cont fluticasone and Combivent, monitor for infection 5. Endo- hx of DM with peripheral polyneuropathy and gastroparesis -cont levemir and ISS, will increase daytime levemir, consistent carb diet 6. GI- gastroparesis due to DM cont reglan 5mg with meals, zofran prn -SImethicone -protonix for ppx -fleet enema ordered as patient has not had BM in several days 6. DVT ppx- lovenox, teds 7. Pain-patient has chronic back pain and chronic headaches now exacerbated by new TBI, cont tylenol, lidoderm patch, flexeril, will increase oxycodone to 10 mg and schedule 4 times a day -will increase gabapentin as well for neuropathic pain, patient is currently on cymbalta which I will start to cross taper with amitriptyline which so far is improving his burning neuropathic pain 8. Psych- insomnia- will add trazodone 9. Dispo- tbd- discussed with patient and later with his over the phone about learning to move and participate in therapy despite having back pain and that lying in bed will only make the pain worse and is chance of recovery less--both expressed understanding Allergies Coded Allergies: TAPE (Verified Allergy, Unknown, 01/27/21) midazolam (Verified Adverse Reaction, Unknown, "go crazy" , 01/27/21) Vital Signs Vital Signs Date Time Temp Pulse Resp B/P (MAP) Pulse Ox O2 Delivery O2 Flow Rate FiO2 02/06/21 09:45 20 02/06/21 08:18 99/57 02/06/21 08:17 75 02/06/21 06:00 97.8 97 Room Air Laboratory Data CBC/BMP Laboratory Tests 02/06/21 05:56 Labs 24H Laboratory Tests 2 02/05/21 11:28: Bedside Glucose (Misc Panel) 154H 02/05/21 16:38: Bedside Glucose (Misc Panel) 151H 02/05/21 19:21: Bedside Glucose (Misc Panel) 129H 02/06/21 05:19: Bedside Glucose (Misc Panel) 140H 02/06/21 05:56: Immature Granulocyte % (Auto) 0.5, Neutrophils (%) (Auto) 59.2, Lymphocytes (%) (Auto) 18.9L, Monocytes (%) (Auto) 20.0H, Eosinophils (%) (Auto) 1.1, Basophils (%) (Auto) 0.3, Neutrophils # (Auto) 3.7, Lymphocytes # (Auto) 1.2L, Monocytes # (Auto) 1.3H, Eosinophils # (Auto) 0.1, Basophils # (Auto) 0.0, Nucleated Red Blood Cells % (auto) 0.0, Anion Gap 5L, Glomerular Filtration Rate > 60.0, C alcium Level 8.6L Current Medications Current Medications Current Medications Medications (Trade) Dose Ordered Sig/Kuldeep Route PRN Reason Start Time Stop Time Status Last Admin Dose Admin Acetaminophen (Tylenol Tab) 650 mg Q8HP PRN PO fever/MILD PAIN (PS 1-4) 02/01/21 12:50 02/04/21 10:20 DC 02/02/21 10:35 Acetaminophen (Tylenol Tab) 1,000 mg TID PO 02/04/21 09:00 02/06/21 08:16 Acetaminophen (Tylenol Tab) 1,000 mg TID PRN PO MODERATE PAIN (PS 5-7) 02/04/21 10:20 02/04/21 10:42 DC Acetaminophen/ Hydrocodone Bitart (Anexsia, [place] 7.5mg/325mg) 1 tab Q4HP PRN PO PAIN > 5/10 02/02/21 10:25 02/04/21 10:20 DC 02/04/21 08:39 Acetaminophen/ Hydrocodone Bitart ([place], Anexsia 5/325) 1 tab Q6HP PRN PO MODERATE PAIN (PS 5-7) 02/01/21 12:50 02/02/21 10:25 DC 02/02/21 05:12 Albuterol/ Ipratropium (Combivent Respimat 100-20mcg) 1 puff RTID INH 02/01/21 20:00 02/06/21 07:43 Amitriptyline HCl (Elavil) 10 mg QHS PO 02/04/21 21:00 02/05/21 20:20 Amlodipine Besylate (Norvasc) 10 mg DAILY PO 02/02/21 09:00 02/05/21 09:47 Atorvastatin Calcium (Lipitor) 10 mg DAILY PO 02/02/21 09:00 02/06/21 08:16 Bisacodyl (Dulcolax Suppository) 10 mg DAILYPRN PRN [place] CONSTIPATION 02/01/21 12:50 Cyclobenzaprine HCl (Flexeril) 5 mg Q8H PRN PO spasms 02/01/21 12:50 02/06/21 08:22 Dextrose (Dextrose 50%) 25 ml ASDIRECTED PRN IV SEE LABEL COMMENTS 02/01/21 12:50 Docusate Sodium (Colace) 100 mg BID PO 02/01/21 21:00 02/06/21 08:16 Duloxetine HCl (Cymbalta) 30 mg DAILY PO 02/05/21 09:00 02/06/21 08:15 Duloxetine HCl (Cymbalta) 60 mg DAILY PO 02/02/21 09:00 02/04/21 11:50 DC 02/04/21 08:28 Enoxaparin Sodium (Lovenox) 40 mg DAILY SC 02/02/21 09:00 02/06/21 08:17 Fluticasone Propionate (Flovent Hfa 220mcg) 2 puff RBID INH 02/01/21 20:00 02/06/21 07:59 Fluticasone Propionate (Flovent Hfa 110 Mcg) 2 puff BID INH 02/01/21 21:00 02/01/21 13:17 DC Folic Acid (Folic Acid) 1 mg DAILY PO 02/02/21 09:00 02/06/21 08:14 Gabapentin (Neurontin) 600 mg BID@0900,1600 PO 02/02/21 16:00 02/06/21 08:15 Gabapentin (Neurontin) 600 mg TID PO 02/01/21 16:00 02/02/21 10:25 DC 02/02/21 07:46 Gabapentin (Neurontin) 900 mg QHS PO 02/05/21 21:00 02/05/21 20:20 Glucagon (Glucagon) 1 mg ASDIRECTED PRN SC SEE LABEL COMMENTS 02/01/21 12:50 Glucose (Glucose) 16 GM ASDIRECTED PRN PO SEE LABEL COMMENTS 02/01/21 12:50 Home Med (Home Med List Complete!) ASDIRECTED XX 02/01/21 16:05 02/01/21 16:57 DC Hydralazine HCl (Apresoline) 25 mg Q6H PO 02/02/21 12:00 02/06/21 05:34 Insulin Detemir (Levemir Insulin) 5 units DAILY SC 02/03/21 09:00 02/05/21 09:19 DC 02/04/21 08:27 Insulin Detemir (Levemir Insulin) 8 units DAILY SC 02/05/21 09:00 02/06/21 08:14 Insulin Detemir (Levemir Insulin) 15 units QHS SC 02/01/21 21:00 02/04/21 09:24 DC 02/03/21 21:02 Insulin Detemir (Levemir Insulin) 20 units QHS SC 02/04/21 21:00 02/05/21 20:19 Insulin Human Lispro (HumaLOG INSULIN) SEE PROTOCOL TABLE AC SC 02/01/21 17:30 02/06/21 08:14 Insulin Human Lispro (HumaLOG INSULIN) SEE PROTOCOL TABLE QHS SC 02/01/21 21:00 Lacosamide (Vimpat) 100 mg BID PO 02/01/21 21:00 02/05/21 23:00 DC 02/05/21 20:20 Lidocaine (Lidoderm Patch) 1 patch DAILY TD 02/02/21 09:00 02/05/21 09:36 DC 02/02/21 07:50 Lidocaine (Lidoderm Patch) 1 patch QHS TD 02/05/21 21:00 02/05/21 20:19 Magnesium Oxide (Mag-Ox) 400 mg DAILY PO 02/02/21 09:00 02/06/21 08:15 Metoclopramide HCl (Reglan) 5 mg AC PO 02/01/21 17:30 02/06/21 08:13 Multivitamins (Theragram-M) 1 tab DAILY PO 02/02/21 09:00 02/06/21 08:15 Nicotine (Nicoderm Cq 7 Mg) 1 patch DAILY TD 02/05/21 09:00 02/06/21 08:19 Non-Formulary Medication ( See Comment Field Below ) REMOVE LIDODERM PATCH DAILY@0900 XX 02/06/21 09:00 02/06/21 08:18 Non-Formulary Medication ( See Comment Field Below ) REMOVE LIDODERM PATCH DAILY@21 XX 02/02/21 21:00 02/05/21 09:45 DC 02/03/21 21:02 Ondansetron HCl (Zofran) 4 mg Q6HP PRN PO NAUSEA 02/01/21 12:50 02/03/21 11:45 Oxycodone HCl (Roxicodone, Oxyir) 7.5 mg Q4HP PRN PO MODERATE/SEVERE PAIN (PS 5-10) 02/04/21 10:20 02/04/21 11:50 DC 02/04/21 10:58 Oxycodone HCl (Roxicodone, Oxyir) 7.5 mg QHS PRN PO SEVERE PAIN (PS 8-10) 02/04/21 11:50 02/05/21 09:37 DC 02/04/21 20:49 Oxycodone HCl (Roxicodone, Oxyir) 7.5 mg QID@0600,1000,1400,1800 PO 02/04/21 14:00 02/06/21 09:45 Oxycodone HCl (Roxicodone, Oxyir) 10 mg QHS PRN PO SEVERE PAIN (PS 8-10) 02/05/21 09:35 Pantoprazole Sodium (Protonix) 40 mg DAILY PO 02/02/21 09:00 02/06/21 08:16 Potassium Chloride (Micro-K Extencaps) 40 meq DAILY PO 02/02/21 09:00 02/06/21 08:16 Propranolol HCl (Inderal) 10 mg TID PO 02/02/21 12:00 02/05/21 20:21 Quetiapine Fumarate (SEROquel) 12.5 mg Q8H PRN PO agitation 02/01/21 12:50 02/05/21 09:38 DC 02/03/21 23:51 Ramelteon (Rozerem) 8 mg QHS PO 02/02/21 21:00 02/05/21 09:38 DC 02/04/21 20:51 Senna (Senokot) 1 tab QHS PO 02/01/21 21:00 02/05/21 20:20 Simethicone (Mylicon) 80 mg TID PO 02/01/21 21:00 02/06/21 08:14 Sodium Chloride (Sodium Chloride) 2 gm TID PO 02/01/21 16:00 02/06/21 08:15 Tamsulosin HCl (Flomax) 0.4 mg DAILY PO 02/02/21 09:00 02/06/21 08:15 Thiamine HCl (Thiamine HCl) 100 mg DAILY PO 02/02/21 09:00 02/01/21 13:19 DC Thiamine HCl (VITAMIN B1 INJection) 100 mg DAILY IM 02/02/21 09:00 02/06/21 08:14 Trazodone HCl (Desyrel) 25 mg QHS PO 02/05/21 21:00 02/05/21 20:19 Trazodone HCl (Desyrel) 25 mg QHSP PRN PO INSOMNIA 02/05/21 09:40 MAURICE NOLAN MD Feb 06, 2021 09:56
[2021-02-06] MEDS ORDERED: FLEET ENEMA PR ONE (13:00)
[2021-02-06 14:12] VITALS: BP_SYST 126; BP_SYST 91; BP_SYST 97; BP_DIAS 52; BP_DIAS 61; BP_DIAS 69
[2021-02-06 14:16] VITALS: BP 126/69
[2021-02-06] MEDS: PYRIDOSTIGMINE 60 MG TAB PO SCH ×2 (17:05→20:35)
[2021-02-06 20:00] VITALS: BP 128/76
[2021-02-06] MEDS: LIDOCAINE 5% (LIDODERM) PATCH TD SCH (20:31)
[2021-02-06] MEDS: amLODIPine 5 MG TAB PO SCH (20:32)
[2021-02-06] MEDS: SENNA 8.6 MG TAB (SENOKOT) PO SCH (20:34)
[2021-02-06] MEDS: traZODone 25MG PER 1/2 TABLET PO SCH (20:34)
[2021-02-06] MEDS: AMITRIPTYLINE 10MG TABLET PO SCH (20:35)
[2021-02-07] MEDS: oxyCODONE 5MG TAB PO PRN (02:11)
[2021-02-07 05:39] VITALS: BP_SYST 116; BP_SYST 121; BP_DIAS 73; BP_DIAS 74
[2021-02-07 06:00] VITALS: BP 131/81
[2021-02-07] MEDS: oxyCODONE 5MG TAB PO SCH ×4 (06:27→17:44)
[2021-02-07] MEDS: COMBIVENT RESPIMAT 100-20MCG INHALER 4GM INH SCH ×3 (07:08→17:49)
[2021-02-07] MEDS: METOCLOPRAMIDE 5 MG TAB PO SCH ×3 (07:30→17:46)
[2021-02-07] MEDS: FLUTICASONE HFA 220 MCG 12 GM INHALER (FLOVENT) INH SCH ×2 (08:00→17:49)
[2021-02-07] MEDS: REMEDY PHYTOPLEX Z-GUARD PASTE 113GM TUBE (FROM STOREROOM PRODUCT) TOP SCH ×3 (09:00→21:00)
[2021-02-07] MEDS: ENOXAPARIN 40MG/0.4ML SYRINGE (J1650 PER 10MG) SC SCH (09:25)
[2021-02-07] MEDS: MAGNESIUM OXIDE 400MG TAB (MAG-OX) PO SCH (09:27)
[2021-02-07] MEDS: MULTIVITAMINS/MINERALS THERAP 1 TAB PO SCH (09:27)
[2021-02-07] MEDS: MIRALAX *UNIT DOSE* 17GM PACKET PO SCH (09:27)
[2021-02-07] MEDS: GABAPENTIN 300 MG CAP PO SCH ×3 (09:27→21:33)
[2021-02-07] MEDS: PANTOPRAZOLE 40MG TAB (PROTONIX) PO SCH (09:28)
[2021-02-07] MEDS: DOCUSATE SODIUM 100MG CAPSULE PO SCH ×2 (09:28→21:32)
[2021-02-07] MEDS: SIMETHICONE 80MG CHEW TAB PO SCH ×3 (09:28→21:32)
[2021-02-07] MEDS: SODIUM CHLORIDE 1 GM TAB PO SCH ×3 (09:28→21:34)
[2021-02-07] MEDS: ATORVASTATIN 10 MG TAB PO SCH (09:28)
[2021-02-07] MEDS: ACETAMINOPHEN 500 MG TAB PO SCH ×3 (09:28→21:33)
[2021-02-07] MEDS: POTASSIUM CHLORIDE 10 MEQ SR TABLET PO SCH (09:28)
[2021-02-07] MEDS: FOLIC ACID 1 MG TAB PO SCH (09:28)
[2021-02-07] MEDS: TAMSULOSIN 0.4 MG CAP PO SCH (09:28)
[2021-02-07] MEDS: THIAMINE 200MG 2ML VIAL IM SCH (09:29)
[2021-02-07] MEDS: LEVEMIR (INSULIN DETEMIR) 1 UNITS/0.01ML SC SCH ×2 (09:29→21:35)
[2021-02-07] MEDS: DULoxetine 30 MG CAP (CYMBALTA) PO SCH (09:30)
[2021-02-07] MEDS: HumaLOG INSULIN (NovoLOG) PER UNIT SC SCH ×4 (09:30→21:00)
[2021-02-07] MEDS: NICOTINE 7 MG/24 HR TRANSDERMAL TD SCH (09:31)
[2021-02-07] MEDS: PYRIDOSTIGMINE 60 MG TAB PO SCH ×3 (09:31→21:33)
[2021-02-07] MEDS: PROPRANOLOL 10 MG TAB PO SCH ×3 (09:31→21:34)
[2021-02-07] MEDS: **NOTE PATIENT COMMENT** MISC XX SCH (09:32)
--- NOTE | 2021-02-07 09:44 | IPNPDOC ---
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 REVIEW OF SYSTEMS: The following is a completed review of systems and has been reviewed. Review of systems otherwise unremarkable. PAIN: Patient self reports +headache (improving) EYES: No recent vision changes EARS, NOSE, & THROAT: +dysphagia CARDIOVASCULAR: Denies chest pain or palpitations PULMONARY: Denies shortness of breath GASTROINTESTINAL: +constipation GENITOURINARY: denies dysuria MUSCULOSKELETAL: generalized weakness NEUROLOGICAL: +peripheral polyneuropathy HEMATOLOGICAL: denies easy bruising SKIN: denies rash PSYCHIATRIC: +anxious All other review of systems found to be negative. PHYSICAL EXAMINATION: VITAL SIGNS: Please see below. GENERAL: Pleasant and cooperative. No acute distress. HEENT: PERRL. Extraocular movements intact. Clear conjunctiva CARDIOVASCULAR: Regular rate and rhythm. No murmurs, rubs, or gallops LUNGS: Clear to auscultation bilaterally. No wheezes. No rhonchi ABDOMEN: Soft, mildly TTP throughout, no guarding nondistended. Positive bowel sounds. NEUROLOGICAL: Alert and oriented times three. Cranial nerves II through XII grossly intact. Sensation decreased to light touch in stocking pattern EXTREMITIES: 4\\5 strength bilateral upper extremities. 4/5 bilat hip flexors and knee extension, 0/5 bilat ankle DF and EHL SKIN: bilat ankles and feet with hyperpigmentation LABORATORY DATA: Please see below. ASSESSMENT:60-year-old M with past medical history of HTN, diabetes, ETOH abuse, gastroparesis who presents status post traumatic bilateral SAH and right frontal ICH PLAN: 1. 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 Neuro- s/p fall with traumatic bilateral SAH and right frontal lobe ICH with left parietal bone fracture- with mobility impairments, completed 7 day course of seizure prophylaxis, had been switched from Keppra to Vimpat due to worsening thrombocytopenia -cont NaCl tabs for cerebral edema, will taper if Na level remains stable -f/u neurosurgeon Dr. Billy in 2 weeks -cont thiamine, folic acid for neuroprotection in setting of chronic ETOH use -propranol 10mg TID for dysautonomia/agitation due to TBI with holding parameters -seroquel prn for agitation, avoid benzodiazepines due to allergy resulting in worsening agitation -peripheral polyneuropathy due to DM cont gabapentin, cont amitriptyline for nerve pain and lower dose of cymbalta to avoid serotonin syndrome 3. CArdiac- -elevated blood pressures, but also noted to have orthostatics, patient states he has felt dizzy on and off for years, will order orthostatics vitals, adjust BP meds, cont mestinon for autonomic orthostatic hypotension -patient reporting he feels less light headed -propranolol also added for dysautonomia/agitation in setting of TBI -patient's ASA for cardio protection on hold until cleared by neurosurgery -HLD cont statin -last ECHo showing signs of diastolic impairments, will monitor for fluid overload, daily weights, fluid restrict -medicine consulted to assist in overall management 4. Resp- hx of COPD cont fluticasone and Combivent, monitor for infection 5. Endo- hx of DM with peripheral polyneuropathy and gastroparesis -cont levemir and ISS, will increase daytime levemir, consistent carb diet 6. GI- gastroparesis due to DM cont reglan 5mg with meals, zofran prn -SImethicone -protonix for ppx -fleet enema ordered as patient has not had BM in several days, no BM recorded, will increase evening senna, miralx added 6. DVT ppx- lovenox, teds 7. Pain-patient has chronic back pain and chronic headaches now exacerbated by new TBI, cont tylenol, lidoderm patch, flexeril, oxycodone increased to 10mg s cheduled -increased gabapentin as well for neuropathic pain, patient is currently on cymbalta which I will start to cross taper with amitriptyline which so far is improving his burning neuropathic pain-cont cross taper outpatient 8. Psych- insomnia- cont trazodone 9. Dispo- 02-13-21 to home, progressing towards goals Allergies Coded Allergies: TAPE (Verified Allergy, Unknown, 01/27/21) midazolam (Verified Adverse Reaction, Unknown, "go crazy" , 01/27/21) Vital Signs Vital Signs Date Time Temp Pulse Resp B/P (MAP) Pulse Ox O2 Delivery O2 Flow Rate FiO2 02/07/21 09:31 85 143/83 02/07/21 09:30 20 02/07/21 06:00 98.8 97 Room Air Laboratory Data Labs 24H Laboratory Tests 2 02/06/21 11:24: Bedside Glucose (Misc Panel) 278H 02/06/21 16:26: Bedside Glucose (Misc Panel) 198H 02/06/21 19:18: Bedside Glucose (Misc Panel) 239H 02/07/21 05:20: Bedside Glucose (Misc Panel) 167H Current Medications Current Medications Current Medications Medications (Trade) Dose Ordered Sig/Kuldeep Route PRN Reason Start Time Stop Time Status Last Admin Dose Admin Acetaminophen (Tylenol Tab) 650 mg Q8HP PRN PO fever/MILD PAIN (PS 1-4) 02/01/21 12:50 02/04/21 10:20 DC 02/02/21 10:35 Acetaminophen (Tylenol Tab) 1,000 mg TID PO 02/04/21 09:00 02/07/21 09:28 Acetaminophen (Tylenol Tab) 1,000 mg TID PRN PO MODERATE PAIN (PS 5-7) 02/04/21 10:20 02/04/21 10:42 DC Acetaminophen/ Hydrocodone Bitart (Anexsia, [place] 7.5mg/325mg) 1 tab Q4HP PRN PO PAIN > 5/10 02/02/21 10:25 02/04/21 10:20 DC 02/04/21 08:39 Acetaminophen/ Hydrocodone Bitart ([place], Anexsia 5/325) 1 tab Q6HP PRN PO MODERATE PAIN (PS 5-7) 02/01/21 12:50 02/02/21 10:25 DC 02/02/21 05:12 Albuterol/ Ipratropium (Combivent Respimat 100-20mcg) 1 puff RTID INH 02/01/21 20:00 02/07/21 07:08 Amitriptyline HCl (Elavil) 10 mg QHS PO 02/04/21 21:00 02/06/21 20:35 Amlodipine Besylate (Norvasc) 5 mg QHS PO 02/06/21 21:00 02/06/21 20:32 Amlodipine Besylate (Norvasc) 10 mg DAILY PO 02/02/21 09:00 02/06/21 12:23 DC 02/05/21 09:47 Atorvastatin Calcium (Lipitor) 10 mg DAILY PO 02/02/21 09:00 02/07/21 09:28 Bisacodyl (Dulcolax Suppository) 10 mg DAILYPRN PRN [place] CONSTIPATION 02/01/21 12:50 Cyclobenzaprine HCl (Flexeril) 5 mg Q8H PRN PO spasms 02/01/21 12:50 02/06/21 08:22 Dextrose (Dextrose 50%) 25 ml ASDIRECTED PRN IV SEE LABEL COMMENTS 02/01/21 12:50 Docusate Sodium (Colace) 100 mg BID PO 02/01/21 21:00 02/07/21 09:28 Duloxetine HCl (Cymbalta) 30 mg DAILY PO 02/05/21 09:00 02/07/21 09:30 Duloxetine HCl (Cymbalta) 60 mg DAILY PO 02/02/21 09:00 02/04/21 11:50 DC 02/04/21 08:28 Enoxaparin Sodium (Lovenox) 40 mg DAILY SC 02/02/21 09:00 02/07/21 09:25 Fluticasone Propionate (Flovent Hfa 220mcg) 2 puff RBID INH 02/01/21 20:00 02/06/21 07:59 Fluticasone Propionate (Flovent Hfa 110 Mcg) 2 puff BID INH 02/01/21 21:00 02/01/21 13:17 DC Folic Acid (Folic Acid) 1 mg DAILY PO 02/02/21 09:00 02/07/21 09:28 Gabapentin (Neurontin) 600 mg BID@0900,1600 PO 02/02/21 16:00 02/07/21 09:27 Gabapentin (Neurontin) 600 mg TID PO 02/01/21 16:00 02/02/21 10:25 DC 02/02/21 07:46 Gabapentin (Neurontin) 900 mg QHS PO 02/05/21 21:00 02/06/21 20:32 Glucagon (Glucagon) 1 mg ASDIRECTED PRN SC SEE LABEL COMMENTS 02/01/21 12:50 Glucose (Glucose) 16 GM ASDIRECTED PRN PO SEE LABEL COMMENTS 02/01/21 12:50 Home Med (Home Med List Complete!) ASDIRECTED XX 02/01/21 16:05 02/01/21 16:57 DC Hydralazine HCl (Apresoline) 25 mg Q6H PO 02/02/21 12:00 02/06/21 12:23 DC 02/06/21 12:13 Insulin Detemir (Levemir Insulin) 5 units DAILY SC 02/03/21 09:00 02/05/21 09:19 DC 02/04/21 08:27 Insulin Detemir (Levemir Insulin) 8 units DAILY SC 02/05/21 09:00 02/07/21 09:29 Insulin Detemir (Levemir Insulin) 15 units QHS SC 02/01/21 21:00 02/04/21 09:24 DC 02/03/21 21:02 Insulin Detemir (Levemir Insulin) 20 units QHS SC 02/04/21 21:00 02/06/21 20:36 Insulin Human Lispro (HumaLOG INSULIN) SEE PROTOCOL TABLE AC SC 02/01/21 17:30 02/07/21 09:30 Insulin Human Lispro (HumaLOG INSULIN) SEE PROTOCOL TABLE QHS SC 02/01/21 21:00 Lacosamide (Vimpat) 100 mg BID PO 02/01/21 21:00 02/05/21 23:00 DC 02/05/21 20:20 Lidocaine (Lidoderm Patch) 1 patch DAILY TD 02/02/21 09:00 02/05/21 09:36 DC 02/02/21 07:50 Lidocaine (Lidoderm Patch) 1 patch QHS TD 02/05/21 21:00 02/06/21 20:31 Magnesium Oxide (Mag-Ox) 400 mg DAILY PO 02/02/21 09:00 02/07/21 09:27 Metoclopramide HCl (Reglan) 5 mg AC PO 02/01/21 17:30 02/06/21 17:04 Multivitamins (Theragram-M) 1 tab DAILY PO 02/02/21 09:00 02/07/21 09:27 Nicotine (Nicoderm Cq 7 Mg) 1 patch DAILY TD 02/05/21 09:00 02/07/21 09:31 Non-Formulary Medication ( See Comment Field Below ) REMOVE LIDODERM PATCH DAILY@0900 XX 02/06/21 09:00 02/07/21 09:32 Non-Formulary Medication ( See Comment Field Below ) REMOVE LIDODERM PATCH DAILY@21 XX 02/02/21 21:00 02/05/21 09:45 DC 02/03/21 21:02 Ondansetron HCl (Zofran) 4 mg Q6HP PRN PO NAUSEA 02/01/21 12:50 02/03/21 11:45 Oxycodone HCl (Roxicodone, Oxyir) 7.5 mg Q4HP PRN PO MODERATE/SEVERE PAIN (PS 5-10) 02/04/21 10:20 02/04/21 11:50 DC 02/04/21 10:58 Oxycodone HCl (Roxicodone, Oxyir) 7.5 mg QHS PRN PO SEVERE PAIN (PS 8-10) 02/04/21 11:50 02/05/21 09:37 DC 02/04/21 20:49 Oxycodone HCl (Roxicodone, Oxyir) 7.5 mg QID@0600,1000,1400,1800 PO 02/04/21 14:00 02/06/21 12:51 DC 02/06/21 09:45 Oxycodone HCl (Roxicodone, Oxyir) 10 mg QHS PRN PO SEVERE PAIN (PS 8-10) 02/05/21 09:35 02/07/21 02:11 Oxycodone HCl (Roxicodone, Oxyir) 10 mg QID@0600,1000,1400,1800 PO 02/06/21 14:00 02/07/21 09:30 Pantoprazole Sodium (Protonix) 40 mg DAILY PO 02/02/21 09:00 02/07/21 09:28 Polyethylene Glycol (Miralax) 1 pkt DAILY PO 02/07/21 09:00 02/07/21 09:27 Potassium Chloride (Micro-K Extencaps) 40 meq DAILY PO 02/02/21 09:00 02/07/21 09:28 Propranolol HCl (Inderal) 10 mg TID PO 02/02/21 12:00 02/07/21 09:31 Pyridostigmine [place] (Mestinon) 30 mg TID PO 02/06/21 16:00 02/07/21 09:31 Quetiapine Fumarate (SEROquel) 12.5 mg Q8H PRN PO agitation 02/01/21 12:50 02/05/21 09:38 DC 02/03/21 23:51 Ramelteon (Rozerem) 8 mg QHS PO 02/02/21 21:00 02/05/21 09:38 DC 02/04/21 20:51 Senna (Senokot) 1 tab QHS PO 02/01/21 21:00 02/06/21 20:34 Simethicone (Mylicon) 80 mg TID PO 02/01/21 21:00 02/07/21 09:28 Sodium Chloride (Sodium Chloride) 2 gm TID PO 02/01/21 16:00 02/07/21 09:28 Tamsulosin HCl (Flomax) 0.4 mg DAILY PO 02/02/21 09:00 02/07/21 09:28 Thiamine HCl (Thiamine HCl) 100 mg DAILY PO 02/02/21 09:00 02/01/21 13:19 DC Thiamine HCl (VITAMIN B1 INJection) 100 mg DAILY IM 02/02/21 09:00 02/07/21 09:29 Trazodone HCl (Desyrel) 25 mg QHS PO 02/05/21 21:00 02/06/21 20:34 Trazodone HCl (Desyrel) 25 mg QHSP PRN PO INSOMNIA 02/05/21 09:40 MAURICE NOLAN MD Feb 07, 2021 09:44
[2021-02-07 14:00] VITALS: BP_SYST 101; BP_SYST 117; BP_SYST 82; BP_DIAS 52; BP_DIAS 57; BP_DIAS 68
[2021-02-07 21:00] VITALS: BP 138/80
[2021-02-07] MEDS: SENNA 8.6 MG TAB (SENOKOT) PO SCH (21:32)
[2021-02-07] MEDS: traZODone 25MG PER 1/2 TABLET PO SCH (21:32)
[2021-02-07] MEDS: amLODIPine 5 MG TAB PO SCH (21:34)
[2021-02-07] MEDS: AMITRIPTYLINE 10MG TABLET PO SCH (21:34)
[2021-02-07] MEDS: LIDOCAINE 5% (LIDODERM) PATCH TD SCH (21:34)
[2021-02-08] MEDS: oxyCODONE 5MG TAB PO PRN ×2 (00:24→21:17)
[2021-02-08 05:20] VITALS: BP_SYST 105; BP_SYST 117; BP_SYST 133; BP_DIAS 65; BP_DIAS 71; BP_DIAS 78
[2021-02-08] MEDS: oxyCODONE 5MG TAB PO SCH ×4 (05:32→18:31)
[2021-02-08] MEDS: COMBIVENT RESPIMAT 100-20MCG INHALER 4GM INH SCH ×3 (07:14→19:34)
[2021-02-08] MEDS: FLUTICASONE HFA 220 MCG 12 GM INHALER (FLOVENT) INH SCH ×2 (07:14→19:34)
[2021-02-08] MEDS: HumaLOG INSULIN (NovoLOG) PER UNIT SC SCH ×4 (08:40→20:41)
[2021-02-08] MEDS: LEVEMIR (INSULIN DETEMIR) 1 UNITS/0.01ML SC SCH ×2 (08:41→20:31)
[2021-02-08] MEDS: SODIUM CHLORIDE 1 GM TAB PO SCH ×3 (08:41→20:29)
[2021-02-08] MEDS: ENOXAPARIN 40MG/0.4ML SYRINGE (J1650 PER 10MG) SC SCH (08:41)
[2021-02-08] MEDS: MAGNESIUM OXIDE 400MG TAB (MAG-OX) PO SCH (08:42)
[2021-02-08] MEDS: METOCLOPRAMIDE 5 MG TAB PO SCH ×3 (08:42→17:04)
[2021-02-08] MEDS: FOLIC ACID 1 MG TAB PO SCH (08:43)
[2021-02-08] MEDS: MULTIVITAMINS/MINERALS THERAP 1 TAB PO SCH (08:43)
[2021-02-08] MEDS: TAMSULOSIN 0.4 MG CAP PO SCH (08:43)
[2021-02-08] MEDS: DOCUSATE SODIUM 100MG CAPSULE PO SCH ×2 (08:43→20:29)
[2021-02-08] MEDS: ATORVASTATIN 10 MG TAB PO SCH (08:43)
[2021-02-08] MEDS: DULoxetine 30 MG CAP (CYMBALTA) PO SCH (08:43)
[2021-02-08] MEDS: SIMETHICONE 80MG CHEW TAB PO SCH ×3 (08:43→20:30)
[2021-02-08] MEDS: GABAPENTIN 300 MG CAP PO SCH ×3 (08:43→20:29)
[2021-02-08] MEDS: PANTOPRAZOLE 40MG TAB (PROTONIX) PO SCH (08:43)
[2021-02-08] MEDS: ACETAMINOPHEN 500 MG TAB PO SCH ×3 (08:43→20:28)
[2021-02-08] MEDS: MIRALAX *UNIT DOSE* 17GM PACKET PO SCH (08:44)
[2021-02-08] MEDS: PYRIDOSTIGMINE 60 MG TAB PO SCH ×3 (08:44→20:30)
[2021-02-08] MEDS: POTASSIUM CHLORIDE 10 MEQ SR TABLET PO SCH (08:44)
[2021-02-08] MEDS: NICOTINE 7 MG/24 HR TRANSDERMAL TD SCH (08:44)
[2021-02-08] MEDS: THIAMINE 200MG 2ML VIAL IM SCH (08:45)
[2021-02-08] MEDS: **NOTE PATIENT COMMENT** MISC XX SCH (08:46)
[2021-02-08] MEDS: REMEDY PHYTOPLEX Z-GUARD PASTE 113GM TUBE (FROM STOREROOM PRODUCT) TOP SCH ×3 (08:46→20:43)
[2021-02-08] MEDS: PROPRANOLOL 10 MG TAB PO SCH ×3 (08:59→20:29)
--- NOTE | 2021-02-08 10:21 | IPNPDOC ---
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 He says he does not feel as light headed. He is agreeable to continue cross tapering the new elavil and his home cymbalta. REVIEW OF SYSTEMS: The following is a completed review of systems and has been reviewed. Review of systems otherwise unremarkable. PAIN: Patient self reports +headache (improving) EYES: No recent vision changes EARS, NOSE, & THROAT: +dysphagia CARDIOVASCULAR: Denies chest pain or palpitations PULMONARY: Denies shortness of breath GASTROINTESTINAL: +constipation GENITOURINARY: denies dysuria MUSCULOSKELETAL: generalized weakness NEUROLOGICAL: +peripheral polyneuropathy HEMATOLOGICAL: denies easy bruising SKIN: denies rash PSYCHIATRIC: +anxious All other review of systems found to be negative. PHYSICAL EXAMINATION: VITAL SIGNS: Please see below. GENERAL: Pleasant and cooperative. No acute distress. HEENT: PERRL. Extraocular movements intact. Clear conjunctiva CARDIOVASCULAR: Regular rate and rhythm. No murmurs, rubs, or gallops LUNGS: Clear to auscultation bilaterally. No wheezes. No rhonchi ABDOMEN: Soft, non-tender, no guarding nondistended. Positive bowel sounds. NEUROLOGICAL: Alert and oriented times three. Cranial nerves II through XII grossly intact. Sensation decreased to light touch in stocking pattern EXTREMITIES: 4\\5 strength bilateral upper extremities. 4/5 bilat hip flexors and knee extension, 0/5 bilat ankle DF and EHL SKIN: bilat ankles and feet with hyperpigmentation LABORATORY DATA: Please see below. ASSESSMENT:60-year-old M with past medical history of HTN, diabetes, ETOH abuse, gastroparesis who presents status post traumatic bilateral SAH and right frontal ICH PLAN: 1. 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 Neuro- s/p fall with traumatic bilateral SAH and right frontal lobe ICH with left parietal bone fracture- with mobility impairments, completed 7 day course of seizure prophylaxis, had been switched from Keppra to Vimpat due to worsening thrombocytopenia -cont NaCl tabs for cerebral edema, will taper if Na level remains stable -f/u neurosurgeon Dr. Billy in 2 weeks -cont thiamine, folic acid for neuroprotection in setting of chronic ETOH use -propranol 10mg TID for dysautonomia/agitation due to TBI with holding parameters -seroquel prn for agitation, avoid benzodiazepines due to allergy resulting in worsening agitation -peripheral polyneuropathy due to DM cont gabapentin, will increase amitriptyline for nerve pain and stop cymbalta, pain has greatly improved 3. CArdiac- -elevated blood pressures have improved as well as orthostatics, patient less light headed on current dose of mestinon for autonomic orthostatic hypotension - propranolol also added for dysautonomia/agitation in setting of TBI -patient's ASA for cardio protection on hold until cleared by neurosurgery -HLD cont statin -last ECHo showing signs of diastolic impairments, will monitor for fluid overload, daily weights, fluid restrict -medicine consulted to assist in overall management 4. Resp- hx of COPD cont fluticasone and Combivent, monitor for infection 5. Endo- hx of DM with peripheral polyneuropathy and gastroparesis -cont levemir and ISS, will increase daytime levemir, consistent carb diet 6. GI- gastroparesis due to DM cont reglan 5mg with meals, zofran prn -SImethicone -protonix for ppx 6. DVT ppx- lovenox, teds 7. Pain-patient has chronic back pain and chronic headaches now exacerbated by new TBI, cont tylenol, lidoderm patch, flexeril, oxycodone increased to 10mg scheduled -increased gabapentin as well for neuropathic pain, will increase amitriptyline to 20mg qhs and d/c Cymbalta 8. Psych- insomnia- cont trazodone 9. Dispo- 02-13-21 to home, progressing towards goals Allergies Coded Allergies: TAPE (Verified Allergy, Unknown, 01/27/21) midazolam (Verified Adverse Reaction, Unknown, "go crazy" , 01/27/21) Vital Signs Vital Signs Date Time Temp Pulse Resp B/P (MAP) Pulse Ox O2 Delivery O2 Flow Rate FiO2 02/08/21 09:45 18 Room Air 02/08/21 08:59 62 129/82 02/08/21 05:20 97.5 96 Laboratory Data CBC/BMP Labs 24H Laboratory Tests 2 02/07/21 11:23: Bedside Glucose (Misc Panel) 167H 02/07/21 16:44: Bedside Glucose (Misc Panel) 170H 02/07/21 20:08: Bedside Glucose (Misc Panel) 158H 02/08/21 05:19: Bedside Glucose (Misc Panel) 156H 02/08/21 09:47: Current Medications Current Medications Current Medications Medications (Trade) Dose Ordered Sig/Kuldeep Route PRN Reason Start Time Stop Time Status Last Admin Dose Admin Acetaminophen (Tylenol Tab) 650 mg Q8HP PRN PO fever/MILD PAIN (PS 1-4) 02/01/21 12:50 02/04/21 10:20 DC 02/02/21 10:35 Acetaminophen (Tylenol Tab) 1,000 mg TID PO 02/04/21 09:00 02/08/21 08:43 Acetaminophen (Tylenol Tab) 1,000 mg TID PRN PO MODERATE PAIN (PS 5-7) 02/04/21 10:20 02/04/21 10:42 DC Acetaminophen/ Hydrocodone Bitart ([place], [place] 7.5mg/325mg) 1 tab Q4HP PRN PO PAIN > 5/10 02/02/21 10:25 02/04/21 10:20 DC 02/04/21 08:39 Acetaminophen/ Hydrocodone Bitart ([place], [place] 5/325) 1 tab Q6HP PRN PO MODERATE PAIN (PS 5-7) 02/01/21 12:50 02/02/21 10:25 DC 02/02/21 05:12 Albuterol/ Ipratropium (Combivent Respimat 100-20mcg) 1 puff RTID INH 02/01/21 20:00 02/08/21 07:14 Amitriptyline HCl (Elavil) 10 mg QHS PO 02/04/21 21:00 02/07/21 21:34 Amlodipine Besylate (Norvasc) 5 mg QHS PO 02/06/21 21:00 02/07/21 21:34 Amlodipine Besylate (Norvasc) 10 mg DAILY PO 02/02/21 09:00 02/06/21 12:23 DC 02/05/21 09:47 Atorvastatin Calcium (Lipitor) 10 mg DAILY PO 02/02/21 09:00 02/08/21 08:43 Bisacodyl (Dulcolax Suppository) 10 mg DAILYPRN PRN MI CONSTIPATION 02/01/21 12:50 Cyclobenzaprine HCl (Flexeril) 5 mg Q8H PRN PO spasms 02/01/21 12:50 02/06/21 08:22 Dextrose (Dextrose 50%) 25 ml ASDIRECTED PRN IV SEE LABEL COMMENTS 02/01/21 12:50 Docusate Sodium (Colace) 100 mg BID PO 02/01/21 21:00 02/08/21 08:43 Duloxetine HCl (Cymbalta) 30 mg DAILY PO 02/05/21 09:00 02/08/21 08:43 Duloxetine HCl (Cymbalta) 60 mg DAILY PO 02/02/21 09:00 02/04/21 11:50 DC 02/04/21 08:28 Enoxaparin Sodium (Lovenox) 40 mg DAILY SC 02/02/21 09:00 02/08/21 08:41 Fluticasone Propionate (Flovent Hfa 220mcg) 2 puff RBID INH 02/01/21 20:00 02/08/21 07:14 Fluticasone Propionate (Flovent Hfa 110 Mcg) 2 puff BID INH 02/01/21 21:00 02/01/21 13:17 DC Folic Acid (Folic Acid) 1 mg DAILY PO 02/02/21 09:00 02/08/21 08:43 Gabapentin (Neurontin) 600 mg BID@0900,1600 PO 02/02/21 16:00 02/08/21 08:43 Gabapentin (Neurontin) 600 mg TID PO 02/01/21 16:00 02/02/21 10:25 DC 02/02/21 07:46 Gabapentin (Neurontin) 900 mg QHS PO 02/05/21 21:00 02/07/21 21:33 Glucagon (Glucagon) 1 mg ASDIRECTED PRN SC SEE LABEL COMMENTS 02/01/21 12:50 Glucose (Glucose) 16 GM ASDIRECTED PRN PO SEE LABEL COMMENTS 02/01/21 12:50 Home Med (Home Med List Complete!) ASDIRECTED XX 02/01/21 16:05 02/01/21 16:57 DC Hydralazine HCl (Apresoline) 25 mg Q6H PO 02/02/21 12:00 02/06/21 12:23 DC 02/06/21 12:13 Insulin Detemir (Levemir Insulin) 5 units DAILY SC 02/03/21 09:00 02/05/21 09:19 DC 02/04/21 08:27 Insulin Detemir (Levemir Insulin) 8 units DAILY SC 02/05/21 09:00 02/08/21 08:41 Insulin Detemir (Levemir Insulin) 15 units QHS SC 02/01/21 21:00 02/04/21 09:24 DC 02/03/21 21:02 Insulin Detemir (Levemir Insulin) 20 units QHS SC 02/04/21 21:00 02/07/21 21:35 Insulin Human Lispro (HumaLOG INSULIN) SEE PROTOCOL TABLE AC SC 02/01/21 17:30 02/08/21 08:40 Insulin Human Lispro (HumaLOG INSULIN) SEE PROTOCOL TABLE QHS SC 02/01/21 21:00 Lacosamide (Vimpat) 100 mg BID PO 02/01/21 21:00 02/05/21 23:00 DC 02/05/21 20:20 Lidocaine (Lidoderm Patch) 1 patch DAILY TD 02/02/21 09:00 02/05/21 09:36 DC 02/02/21 07:50 Lidocaine (Lidoderm Patch) 1 patch QHS TD 02/05/21 21:00 02/07/21 21:34 Magnesium Oxide (Mag-Ox) 400 mg DAILY PO 02/02/21 09:00 02/08/21 08:42 Metoclopramide HCl (Reglan) 5 mg AC PO 02/01/21 17:30 02/08/21 08:42 Multivitamins (Theragram-M) 1 tab DAILY PO 02/02/21 09:00 02/08/21 08:43 Nicotine (Nicoderm Cq 7 Mg) 1 patch DAILY TD 02/05/21 09:00 02/08/21 08:44 Non-Formulary Medication ( See Comment Field Below ) REMOVE LIDODERM PATCH DAILY@0900 XX 02/06/21 09:00 02/08/21 08:46 Non-Formulary Medication ( See Comment Field Below ) REMOVE LIDODERM PATCH DAILY@21 XX 02/02/21 21:00 02/05/21 09:45 DC 02/03/21 21:02 Ondansetron HCl (Zofran) 4 mg Q6HP PRN PO NAUSEA 02/01/21 12:50 02/03/21 11:45 Oxycodone HCl (Roxicodone, Oxyir) 7.5 mg Q4HP PRN PO MODERATE/SEVERE PAIN (PS 5-10) 02/04/21 10:20 02/04/21 11:50 DC 02/04/21 10:58 Oxycodone HCl (Roxicodone, Oxyir) 7.5 mg QHS PRN PO SEVERE PAIN (PS 8-10) 02/04/21 11:50 02/05/21 09:37 DC 02/04/21 20:49 Oxycodone HCl (Roxicodone, Oxyir) 7.5 mg QID@0600,1000,1400,1800 PO 02/04/21 14:00 02/06/21 12:51 DC 02/06/21 09:45 Oxycodone HCl (Roxicodone, Oxyir) 10 mg QHS PRN PO SEVERE PAIN (PS 8-10) 02/05/21 09:35 02/08/21 00:24 Oxycodone HCl (Roxicodone, Oxyir) 10 mg QID@0600,1000,1400,1800 PO 02/06/21 14:00 02/08/21 09:45 Pantoprazole Sodium (Protonix) 40 mg DAILY PO 02/02/21 09:00 02/08/21 08:43 Polyethylene Glycol (Miralax) 1 pkt DAILY PO 02/07/21 09:00 02/08/21 08:44 Potassium Chloride (Micro-K Extencaps) 40 meq DAILY PO 02/02/21 09:00 02/08/21 08:44 Propranolol HCl (Inderal) 10 mg TID PO 02/02/21 12:00 02/08/21 08:59 Pyridostigmine [place] (Mestinon) 30 mg TID PO 02/06/21 16:00 02/08/21 08:44 Quetiapine Fumarate (SEROquel) 12.5 mg Q8H PRN PO agitation 02/01/21 12:50 02/05/21 09:38 DC 02/03/21 23:51 Ramelteon (Rozerem) 8 mg QHS PO 02/02/21 21:00 02/05/21 09:38 DC 02/04/21 20:51 Senna (Senokot) 1 tab QHS PO 02/01/21 21:00 02/07/21 21:32 Simethicone (Mylicon) 80 mg TID PO 02/01/21 21:00 02/08/21 08:43 Sodium Chloride (Sodium Chloride) 2 gm TID PO 02/01/21 16:00 02/08/21 08:41 Tamsulosin HCl (Flomax) 0.4 mg DAILY PO 02/02/21 09:00 02/08/21 08:43 Thiamine HCl (Thiamine HCl) 100 mg DAILY PO 02/02/21 09:00 02/01/21 13:19 DC Thiamine HCl (VITAMIN B1 INJection) 100 mg DAILY IM 02/02/21 09:00 02/08/21 08:45 Trazodone HCl (Desyrel) 25 mg QHS PO 02/05/21 21:00 02/07/21 21:32 Trazodone HCl (Desyrel) 25 mg QHSP PRN PO INSOMNIA 02/05/21 09:40 MAURICE NOLAN MD Feb 08, 2021 10:21
[2021-02-08 10:25] LABS: BASO % 0.6 % (0.0-1.0); EOS # 0.1 10^3/uL (0.0-0.5); HEMATOCRIT 38.8 % (42.0-52.0); HEMOGLOBIN 13.1 g/dl (13.5-17.5); LYMPH # 1.1 10^3/uL (1.5-5.0); LYMPH % 16.6 % (24.0-44.0); MEAN CORPUSCULAR HEMOGLOBIN 31.8 pg (27.0-33.0); MEAN CORPUSCULAR HGB CONC 33.8 g/dl (32.0-36.5); MEAN CORPUSCULAR VOLUME 94.2 fl (80.0-96.0); MONO % 14.5 % (2.0-8.0); NEUTROPHILS # 4.6 10^3/uL (1.5-8.5); PLATELET COUNT, AUTOMATED 216 10^3/uL (150-450); RED BLOOD COUNT 4.12 10^6/uL (4.30-6.10); WHITE BLOOD COUNT 6.8 10^3/uL (4.0-10.0)
[2021-02-08 11:00] LABS: BLOOD UREA NITROGEN 11 MG/DL (7-18); CALCIUM LEVEL 8.6 MG/DL (8.8-10.2); CARBON DIOXIDE LEVEL 27 MEQ/L (21-32); CHLORIDE LEVEL 102 MEQ/L (98-107); GLOMERULAR FILTRATION RATE > 60.0 (>49); GLUCOSE, FASTING 259 MG/DL (70-100); POTASSIUM SERUM 4.7 MEQ/L (3.5-5.1); SODIUM LEVEL 135 MEQ/L (136-145)
[2021-02-08 14:00] VITALS: BP_SYST 110; BP_SYST 129; BP_SYST 96; BP_DIAS 64; BP_DIAS 66; BP_DIAS 73
[2021-02-08 20:00] VITALS: BP 127/79
[2021-02-08] MEDS: CYCLOBENZAPRINE 5MG TABLET PO PRN (20:28)
[2021-02-08] MEDS: SENNA 8.6 MG TAB (SENOKOT) PO SCH (20:28)
[2021-02-08] MEDS: traZODone 25MG PER 1/2 TABLET PO SCH (20:29)
[2021-02-08] MEDS: amLODIPine 5 MG TAB PO SCH (20:30)
[2021-02-08] MEDS: AMITRIPTYLINE 10MG TABLET PO SCH (20:31)
[2021-02-08] MEDS: LIDOCAINE 5% (LIDODERM) PATCH TD SCH (20:42)
[2021-02-09] MEDS ORDERED: METOCLOPRAMIDE INJ 10MG/2ML VIAL (J2765 PER 1) IV ONE (01:00)
[2021-02-09] MEDS ORDERED: CYCLOBENZAPRINE 5MG TABLET PO ONE (01:00)
[2021-02-09] MEDS ORDERED: diphenhydrAMINE 50MG/ML VIAL (J1200) IV ONE (01:00)
--- NOTE | 2021-02-09 01:49 | IPNPDOC ---
Text Note Date of Service Significant event NOTE Patient reported headache unrelieved by current as needed options. No neuro changes reported. Trial of cocktail Benadryl/Reglan attempted, but pt wihtout IV and thus additional dose of flexeril given. Patient without relief after 30 minutes pt began becoming agitated with nursing staff, reportedly stating he will leave AMA and requesting oxycodone. Education and de-escalation techniques performed regarding opiates not typically ideal for migraine/headache relief, however, patient is opiate tolerant. Possible agitation related to ongoing clinical stress/headache versus withdrawal- uncertain how much opiate medication pt typically takes or if this is seeking behavior if trend. Will place one-time dose oxy and Haldol prn given migraine/agitation (with monitoring for any EPS). Will defer to attending regarding further PRN adjustments to MAR. WCTM. VS,Fishbone, I+O VS, Fishbone, I+O Laboratory Tests 02/08/21 09:47 Vital Signs Date Time Temp Pulse Resp B/P (MAP) Pulse Ox O2 Delivery O2 Flow Rate FiO2 02/09/21 01:42 18 02/08/21 20:30 69 129/79 02/08/21 20:00 97.4 96 Room Air I&O- Last 24 Hours up to 6 AM 02/09/21 06:00 Intake Total 1830 ml Output Total 0 ml Balance 1830 ml ELIAZAR BRITTON NP Feb 09, 2021 01:49
[2021-02-09] MEDS ORDERED: oxyCODONE 5MG TAB PO ONE (02:00)
[2021-02-09] MEDS: oxyCODONE 5MG TAB PO SCH ×4 (05:39→18:05)
[2021-02-09 06:00] VITALS: BP_SYST 122; BP_SYST 128; BP_SYST 129; BP_DIAS 71; BP_DIAS 77; BP_DIAS 81
[2021-02-09] MEDS: COMBIVENT RESPIMAT 100-20MCG INHALER 4GM INH SCH ×3 (07:16→19:45)
[2021-02-09] MEDS: FLUTICASONE HFA 220 MCG 12 GM INHALER (FLOVENT) INH SCH ×2 (07:17→19:45)
[2021-02-09] MEDS: REMEDY PHYTOPLEX Z-GUARD PASTE 113GM TUBE (FROM STOREROOM PRODUCT) TOP SCH ×3 (09:00→20:43)
[2021-02-09] MEDS: NICOTINE 7 MG/24 HR TRANSDERMAL TD SCH (09:10)
[2021-02-09] MEDS: PANTOPRAZOLE 40MG TAB (PROTONIX) PO SCH (09:10)
[2021-02-09] MEDS: LEVEMIR (INSULIN DETEMIR) 1 UNITS/0.01ML SC SCH ×2 (09:10→20:34)
[2021-02-09] MEDS: SODIUM CHLORIDE 1 GM TAB PO SCH ×3 (09:10→20:32)
[2021-02-09] MEDS: PROPRANOLOL 10 MG TAB PO SCH ×3 (09:12→20:33)
[2021-02-09] MEDS: SIMETHICONE 80MG CHEW TAB PO SCH ×3 (09:12→20:31)
[2021-02-09] MEDS: ATORVASTATIN 10 MG TAB PO SCH (09:12)
[2021-02-09] MEDS: DOCUSATE SODIUM 100MG CAPSULE PO SCH ×2 (09:13→20:35)
[2021-02-09] MEDS: METOCLOPRAMIDE 5 MG TAB PO SCH ×3 (09:13→17:01)
[2021-02-09] MEDS: GABAPENTIN 300 MG CAP PO SCH ×3 (09:13→20:31)
[2021-02-09] MEDS: MIRALAX *UNIT DOSE* 17GM PACKET PO SCH (09:13)
[2021-02-09] MEDS: THIAMINE 200MG 2ML VIAL IM SCH (09:13)
[2021-02-09] MEDS: TAMSULOSIN 0.4 MG CAP PO SCH (09:13)
[2021-02-09] MEDS: POTASSIUM CHLORIDE 10 MEQ SR TABLET PO SCH (09:13)
[2021-02-09] MEDS: ACETAMINOPHEN 500 MG TAB PO SCH ×3 (09:14→20:32)
[2021-02-09] MEDS: MAGNESIUM OXIDE 400MG TAB (MAG-OX) PO SCH (09:14)
[2021-02-09] MEDS: PYRIDOSTIGMINE 60 MG TAB PO SCH ×3 (09:14→20:32)
[2021-02-09] MEDS: MULTIVITAMINS/MINERALS THERAP 1 TAB PO SCH (09:15)
[2021-02-09] MEDS: FOLIC ACID 1 MG TAB PO SCH (09:21)
[2021-02-09] MEDS: **NOTE PATIENT COMMENT** MISC XX SCH (09:23)
[2021-02-09] MEDS: HumaLOG INSULIN (NovoLOG) PER UNIT SC SCH ×4 (09:23→20:43)
[2021-02-09] MEDS: ENOXAPARIN 40MG/0.4ML SYRINGE (J1650 PER 10MG) SC SCH (09:23)
[2021-02-09] MEDS ORDERED: oxyCODONE 5MG TAB PO PRN (12:30)
[2021-02-09 14:00] VITALS: BP 123/88
[2021-02-09 20:00] VITALS: BP 155/83
[2021-02-09] MEDS: CYCLOBENZAPRINE 5MG TABLET PO PRN (20:31)
[2021-02-09] MEDS: traZODone 25MG PER 1/2 TABLET PO SCH (20:31)
[2021-02-09] MEDS: AMITRIPTYLINE 10MG TABLET PO SCH (20:31)
[2021-02-09] MEDS: amLODIPine 5 MG TAB PO SCH (20:34)
[2021-02-09] MEDS: SENNA 8.6 MG TAB (SENOKOT) PO SCH (20:35)
[2021-02-09] MEDS: LIDOCAINE 5% (LIDODERM) PATCH TD SCH (20:42)
[2021-02-09] MEDS: oxyCODONE 5MG TAB PO PRN (23:51)
[2021-02-10] MEDS: oxyCODONE 5MG TAB PO SCH ×4 (05:55→17:08)
[2021-02-10 06:00] VITALS: BP 136/74
[2021-02-10] MEDS: COMBIVENT RESPIMAT 100-20MCG INHALER 4GM INH SCH ×3 (07:16→19:36)
[2021-02-10] MEDS: FLUTICASONE HFA 220 MCG 12 GM INHALER (FLOVENT) INH SCH ×2 (07:16→19:36)
[2021-02-10] MEDS: LEVEMIR (INSULIN DETEMIR) 1 UNITS/0.01ML SC SCH ×2 (08:38→20:17)
[2021-02-10] MEDS: HumaLOG INSULIN (NovoLOG) PER UNIT SC SCH ×4 (08:38→20:18)
[2021-02-10] MEDS: DOCUSATE SODIUM 100MG CAPSULE PO SCH ×2 (08:39→20:16)
[2021-02-10] MEDS: MIRALAX *UNIT DOSE* 17GM PACKET PO SCH (08:39)
[2021-02-10] MEDS: HALOPERIDOL 5MG/ML VIAL (J1630 PER 1) IM PRN ×2 (08:39→18:05)
[2021-02-10] MEDS: THIAMINE 200MG 2ML VIAL IM SCH (08:39)
[2021-02-10] MEDS: GABAPENTIN 300 MG CAP PO SCH ×3 (08:40→20:16)
[2021-02-10] MEDS: ATORVASTATIN 10 MG TAB PO SCH (08:40)
[2021-02-10] MEDS: SODIUM CHLORIDE 1 GM TAB PO SCH ×3 (08:40→20:25)
[2021-02-10] MEDS: MULTIVITAMINS/MINERALS THERAP 1 TAB PO SCH (08:40)
[2021-02-10] MEDS: PANTOPRAZOLE 40MG TAB (PROTONIX) PO SCH (08:40)
[2021-02-10] MEDS: FOLIC ACID 1 MG TAB PO SCH (08:40)
[2021-02-10] MEDS: NICOTINE 7 MG/24 HR TRANSDERMAL TD SCH (08:40)
[2021-02-10] MEDS: POTASSIUM CHLORIDE 10 MEQ SR TABLET PO SCH (08:41)
[2021-02-10] MEDS: TAMSULOSIN 0.4 MG CAP PO SCH (08:41)
[2021-02-10] MEDS: METOCLOPRAMIDE 5 MG TAB PO SCH ×3 (08:41→16:57)
[2021-02-10] MEDS: PROPRANOLOL 10 MG TAB PO SCH ×3 (08:45→20:26)
[2021-02-10] MEDS: PYRIDOSTIGMINE 60 MG TAB PO SCH ×3 (08:46→20:26)
[2021-02-10] MEDS: ACETAMINOPHEN 500 MG TAB PO SCH ×3 (08:46→20:17)
[2021-02-10] MEDS: MAGNESIUM OXIDE 400MG TAB (MAG-OX) PO SCH (08:47)
[2021-02-10] MEDS: **NOTE PATIENT COMMENT** MISC XX SCH (08:47)
[2021-02-10] MEDS: SIMETHICONE 80MG CHEW TAB PO SCH ×3 (08:47→20:26)
[2021-02-10] MEDS: ENOXAPARIN 40MG/0.4ML SYRINGE (J1650 PER 10MG) SC SCH (08:47)
[2021-02-10] MEDS: REMEDY PHYTOPLEX Z-GUARD PASTE 113GM TUBE (FROM STOREROOM PRODUCT) TOP SCH ×3 (08:47→20:27)
[2021-02-10 14:00] VITALS: BP 138/80
[2021-02-10 20:00] VITALS: BP 122/73
[2021-02-10] MEDS: LIDOCAINE 5% (LIDODERM) PATCH TD SCH (20:13)
[2021-02-10] MEDS: traZODone 25MG PER 1/2 TABLET PO SCH (20:16)
[2021-02-10] MEDS: SENNA 8.6 MG TAB (SENOKOT) PO SCH (20:16)
[2021-02-10] MEDS: amLODIPine 5 MG TAB PO SCH (20:19)
[2021-02-10] MEDS: AMITRIPTYLINE 10MG TABLET PO SCH (20:26)
[2021-02-11 06:00] VITALS: BP 132/65
[2021-02-11] MEDS: oxyCODONE 5MG TAB PO SCH ×3 (06:13→13:42)
[2021-02-11 07:04] LABS: BASO % 0.6 % (0.0-1.0); EOS # 0.1 10^3/uL (0.0-0.5); EOS % 1.3 % (0.0-3.0); HEMATOCRIT 41.1 % (42.0-52.0); HEMOGLOBIN 13.4 g/dl (13.5-17.5); LYMPH # 1.3 10^3/uL (1.5-5.0); MEAN CORPUSCULAR HEMOGLOBIN 31.2 pg (27.0-33.0); MEAN CORPUSCULAR HGB CONC 32.6 g/dl (32.0-36.5); MEAN CORPUSCULAR VOLUME 95.8 fl (80.0-96.0); MONO # 0.6 10^3/uL (0.0-0.8); MONO % 11.8 % (2.0-8.0); NEUTROPHILS # 3.2 10^3/uL (1.5-8.5); NEUTROPHILS % 60.9 % (36.0-66.0); PLATELET COUNT, AUTOMATED 199 10^3/uL (150-450); RED BLOOD COUNT 4.29 10^6/uL (4.30-6.10); WHITE BLOOD COUNT 5.3 10^3/uL (4.0-10.0)
[2021-02-11 07:35] LABS: BLOOD UREA NITROGEN 8 MG/DL (7-18); CALCIUM LEVEL 9.3 MG/DL (8.8-10.2); CARBON DIOXIDE LEVEL 28 MEQ/L (21-32); CHLORIDE LEVEL 105 MEQ/L (98-107); CREATININE FOR GFR 0.52 MG/DL (0.70-1.30); GLOMERULAR FILTRATION RATE > 60.0 (>49); GLUCOSE, FASTING 172 MG/DL (70-100); POTASSIUM SERUM 3.6 MEQ/L (3.5-5.1); SODIUM LEVEL 138 MEQ/L (136-145)
[2021-02-11] MEDS: COMBIVENT RESPIMAT 100-20MCG INHALER 4GM INH SCH (08:00)
[2021-02-11] MEDS: FLUTICASONE HFA 220 MCG 12 GM INHALER (FLOVENT) INH SCH (08:00)
[2021-02-11] MEDS: DOCUSATE SODIUM 100MG CAPSULE PO SCH (08:25)
[2021-02-11] MEDS: HumaLOG INSULIN (NovoLOG) PER UNIT SC SCH ×2 (08:25→12:18)
[2021-02-11] MEDS: PANTOPRAZOLE 40MG TAB (PROTONIX) PO SCH (08:25)
[2021-02-11] MEDS: SODIUM CHLORIDE 1 GM TAB PO SCH (08:25)
[2021-02-11 08:26] VITALS: BP 135/76
[2021-02-11] MEDS: PYRIDOSTIGMINE 60 MG TAB PO SCH (08:26)
[2021-02-11] MEDS: ATORVASTATIN 10 MG TAB PO SCH (08:26)
[2021-02-11] MEDS: TAMSULOSIN 0.4 MG CAP PO SCH (08:26)
[2021-02-11] MEDS: FOLIC ACID 1 MG TAB PO SCH (08:26)
[2021-02-11] MEDS: PROPRANOLOL 10 MG TAB PO SCH (08:26)
[2021-02-11] MEDS: METOCLOPRAMIDE 5 MG TAB PO SCH ×2 (08:26→12:18)
[2021-02-11] MEDS: MULTIVITAMINS/MINERALS THERAP 1 TAB PO SCH (08:26)
[2021-02-11] MEDS: POTASSIUM CHLORIDE 10 MEQ SR TABLET PO SCH (08:27)
[2021-02-11] MEDS: SIMETHICONE 80MG CHEW TAB PO SCH (08:27)
[2021-02-11] MEDS: GABAPENTIN 300 MG CAP PO SCH (08:27)
[2021-02-11] MEDS: NICOTINE 7 MG/24 HR TRANSDERMAL TD SCH (08:27)
[2021-02-11] MEDS: MAGNESIUM OXIDE 400MG TAB (MAG-OX) PO SCH (08:27)
[2021-02-11] MEDS: THIAMINE 200MG 2ML VIAL IM SCH (08:28)
[2021-02-11] MEDS: LEVEMIR (INSULIN DETEMIR) 1 UNITS/0.01ML SC SCH (08:28)
[2021-02-11] MEDS: MIRALAX *UNIT DOSE* 17GM PACKET PO SCH (08:28)
[2021-02-11] MEDS: ENOXAPARIN 40MG/0.4ML SYRINGE (J1650 PER 10MG) SC SCH (08:28)
[2021-02-11] MEDS: ACETAMINOPHEN 500 MG TAB PO SCH (08:28)
[2021-02-11] MEDS: REMEDY PHYTOPLEX Z-GUARD PASTE 113GM TUBE (FROM STOREROOM PRODUCT) TOP SCH (08:29)
[2021-02-11] MEDS: **NOTE PATIENT COMMENT** MISC XX SCH (08:29)
[2021-02-11] MEDS ORDERED: INSUDET SC ×2 (11:29)
[2021-02-11] MEDS ORDERED: FLOM0.4C39 PO (11:29)
[2021-02-11] MEDS ORDERED: AMIT10TA7 PO (11:29)
[2021-02-11] MEDS ORDERED: SODI1TAB6 PO (11:29)
[2021-02-11] MEDS ORDERED: KLOR10TA76 PO (11:29)
[2021-02-11] MEDS ORDERED: VITMTA PO (11:29)
[2021-02-11] MEDS ORDERED: ATOR1TAB19 PO (11:29)
[2021-02-11] MEDS ORDERED: TRAZ-252 PO (11:29)
[2021-02-11] MEDS ORDERED: PROAAER10 INH (11:29)
[2021-02-11] MEDS ORDERED: MAGN400T2 PO (11:29)
[2021-02-11] MEDS ORDERED: GABA-282 PO ×2 (11:29)
[2021-02-11] MEDS ORDERED: METO5TAB2 PO (11:29)
[2021-02-11] MEDS ORDERED: OXYC-517 PO (11:29)
[2021-02-11] MEDS ORDERED: THIA100I4 IM (11:29)
[2021-02-11] MEDS ORDERED: AMLO1TAB24 PO (11:29)
[2021-02-11] MEDS ORDERED: ADV250INH INH (11:29)
[2021-02-11] MEDS ORDERED: MEST60TA PO (11:29)
[2021-02-11] MEDS ORDERED: FOLI1TAB11 PO (11:29)
[2021-02-11] MEDS ORDERED: LIDO5TD TD (11:31)
[2021-02-11] MEDS ORDERED: MI-A80CH PO (12:01)
[2021-02-11] MEDS ORDERED: OXYC10TA12 PO (13:03)
== END 2021-02-11 13:59 | disposition home health service (06) | DRG 862 ==
LOC: M PM&R 15:01
PROVIDERS: ADMIT Physical Medicine & Rehabilitation; ATTEND Physical Medicine & Rehabilitation
DX: S06.6X9D Traumatic subarachnoid hemorrhage with loss of consciousness of unspecified duration, subsequent encounter (principal); S02.0XXD Fracture of vault of skull, subsequent encounter for fracture with routine healing; J44.9 Chronic obstructive pulmonary disease, unspecified; I10 Essential (primary) hypertension; K21.9 Gastro-esophageal reflux disease without esophagitis; B19.20 Unspecified viral hepatitis C without hepatic coma; M54.5 Low back pain; E11.42 Type 2 diabetes mellitus with diabetic polyneuropathy; F32.9 Major depressive disorder, single episode, unspecified; F41.9 Anxiety disorder, unspecified; K70.30 Alcoholic cirrhosis of liver without ascites; F10.10 Alcohol abuse, uncomplicated; M72.0 Palmar fascial fibromatosis [Dupuytren]; W18.09XD Striking against other object with subsequent fall, subsequent encounter; Y92.9 Unspecified place or not applicable; Y99.9 Unspecified external cause status; Y93.9 Activity, unspecified; D69.6 Thrombocytopenia, unspecified; Z74.1 Need for assistance with personal care; Z74.09 Other reduced mobility; R19.7 Diarrhea, unspecified; K59.00 Constipation, unspecified; E11.43 Type 2 diabetes mellitus with diabetic autonomic (poly)neuropathy; K31.84 Gastroparesis; Z79.4 Long term (current) use of insulin; Z79.899 Other long term (current) drug therapy; Z88.8 Allergy status to other drugs, medicaments and biological substances; Z91.048 Other nonmedicinal substance allergy status; Z79.82 Long term (current) use of aspirin; Z87.820 Personal history of traumatic brain injury; R51.9 Headache, unspecified; Z79.891 Long term (current) use of opiate analgesic

== ENCOUNTER 2021-02-17 23:02 | Emergency (ER) | payer MEDICAID ==
[~2021-02-17] VITALS: Ht 180.3 cm; Wt 78.2 kg
[~2021-02-17 23:02] MED LIST changes: +AMIT10TA7 PO; +AMLO1TAB24 PO; +FOLI1TAB11 PO; +GABA600T4 PO; +KLOR10TA76 PO; +LIDO5TD TD; +MAGN400T2 PO; +MEST60TA PO; +METO5TAB2 PO; +MI-A80CH PO; +OXYC-517 PO; +OXYC10TA12 PO; +SODI1TAB6 PO; +THIA100I4 IM; +VIMP100T PO; +VITMTA PO
[2021-02-17 23:12] VITALS: BP 116/81
[2021-02-18] MEDS ORDERED: ONDANSETRON 4MG/2ML VIAL IV ONE (01:00)
[2021-02-18 01:34] LABS: BASO % 0.4 % (0.0-1.0); EOS # 0.1 10^3/uL (0.0-0.5); EOS % 1.3 % (0.0-3.0); HEMATOCRIT 40.1 % (42.0-52.0); HEMOGLOBIN 14.1 g/dl (13.5-17.5); LYMPH # 2.1 10^3/uL (1.5-5.0); LYMPH % 23.9 % (24.0-44.0); MEAN CORPUSCULAR HEMOGLOBIN 31.7 pg (27.0-33.0); MEAN CORPUSCULAR HGB CONC 35.2 g/dl (32.0-36.5); MEAN CORPUSCULAR VOLUME 90.1 fl (80.0-96.0); MONO # 0.7 10^3/uL (0.0-0.8); MONO % 8.2 % (2.0-8.0); NEUTROPHILS # 5.9 10^3/uL (1.5-8.5); PLATELET COUNT, AUTOMATED 193 10^3/uL (150-450); RED BLOOD COUNT 4.45 10^6/uL (4.30-6.10)
[2021-02-18 02:14] LABS: ACETAMINOPHEN LEVEL < 2.0 UG/ML (10.0-30.0); ALBUMIN 3.1 GM/DL (3.2-5.2); ALT/SGPT 51 U/L (12-78); BILIRUBIN,TOTAL 0.3 MG/DL (0.2-1.0); BLOOD UREA NITROGEN 5 MG/DL (7-18); CALCIUM LEVEL 9.2 MG/DL (8.8-10.2); CARBON DIOXIDE LEVEL 26 MEQ/L (21-32); CHLORIDE LEVEL 100 MEQ/L (98-107); ETHYL ALCOHOL (ETHANOL) 0.205 % (0.000-0.010); GLOMERULAR FILTRATION RATE > 60.0 (>49); GLUCOSE, FASTING 256 MG/DL (70-100); POTASSIUM SERUM 3.8 MEQ/L (3.5-5.1); SODIUM LEVEL 136 MEQ/L (136-145); TOTAL PROTEIN 6.4 GM/DL (6.4-8.2)
--- NOTE | 2021-02-19 13:00 | REP ---
INDICATION: headache. Repeat dictation. Preliminary report is provided at the time of the exam by kaitlynn CORONEL. COMPARISON: Comparison is made with CT studies of the brain from January 27, 2021 at 2:39 a.m. and January 27, 2021 at 1:30 a.m.. TECHNIQUE: Helical scanning is acquired. 5 mm axial images were reformatted. Coronal MPR images were generated. FINDINGS: Preliminary digital chemical technician radiograph is unremarkable. Bone window settings demonstrate intact bony calvarium. Vascular calcification is again noted. No skull fracture is seen. On today's CT study, there is a subacute parenchymal hematoma in the inferior right frontal lobe where the most recent prior study showed subarachnoid hemorrhage. The subarachnoid hemorrhage is no longer visible. There is a rim of edema surrounding the parenchymal hematoma. the hematoma measures 2 x 3.3 by 2.9 cm. There is old appearing encephalomalacia in the right temporoparietal region as seen previously. No acute infarction is seen. No other new parenchymal hemorrhage is noted. There is small-vessel atherosclerotic change in generalized volume loss again noted. IMPRESSION: The recently noted subarachnoid hemorrhage in the right inferior frontal lobe has resolved. There is interval development of a intraparenchymal hematoma in the right inferior frontal lobe. Its appearance suggests subacute, involuting hematoma. Generalized volume loss, small vessel atherosclerotic changes and vascular calcification are again noted. <Electronically signed by Miguelangel Plata > 02/19/21 1257
== END 2021-02-18 02:40 | disposition left against medical advice (07) ==
LOC: M ED 23:02
DX: R51.9 Headache, unspecified (principal); Z53.9 Procedure and treatment not carried out, unspecified reason; I69.114 Frontal lobe and executive function deficit following nontraumatic intracerebral hemorrhage; E11.9 Type 2 diabetes mellitus without complications; I10 Essential (primary) hypertension; J44.9 Chronic obstructive pulmonary disease, unspecified; K74.60 Unspecified cirrhosis of liver; Z79.4 Long term (current) use of insulin; Z79.899 Other long term (current) drug therapy; Z91.89 Other specified personal risk factors, not elsewhere classified; Z88.8 Allergy status to other drugs, medicaments and biological substances
CPT/HCPCS: 70450; 80053; 80143; 82077; 85025; 86850; 86900; 86901; 96374; 99284; J2405

== ENCOUNTER 2021-04-25 22:16 | Emergency (ER) | payer MEDICAID ==
[~2021-04-25] VITALS: Ht 180.3 cm; Wt 73.2 kg
[2021-04-25 22:16] VITALS: BP 158/97
[~2021-04-25 22:16] MED LIST changes: +CYMB60CA4 PO; -KLOR10TA76 PO; +POTA-136 PO
--- OUTSIDE RECORDS SUMMARY | 2021-04-25 22:31 | CCD | Summary of Care ---
Author Author [facility] Address Unknown Phone Unavailable Care Team Providers Care Decorating Consultant Name Role Phone Tyler Vega MD PCP Reason for Visit * Reason Comments Head Injury subarachnoid hemmorhage * Auth/Cert Referred By Contact Referred To Contact Status Reason Specialty Diagnoses / Procedures Diagnoses Traumatic intracranial subarachnoid hemorrhage, without loss of consciousness, subsequent encounter s/p fall, traumatic head bleed Encounter Details Care Team Description Date Type Department Rupert Robles MD [address] [place] [address] [phone] Yo Goodman MD [address] [place] [address] [phone] Seb Billy MD [address] 1[address] [place] [address] Hermelinda Perry MD [address] [place] [address] Traumatic intracranial subarachnoid hemo rrhage, with loss of consciousness of 30 minutes or less, initial encounter (Primary Dx) 01/27/2021 Hospital 09F NEUROSCIENCE CR ITICAL - Encounter CARE 02/01/[address] [place] [address] Allergies Comments Active Allergy Reactions Severity Noted Date Adhesive Tape Rash Low 07/13/2013 [place] as if body was on fire. Was told he had a violent, psychotic reaction. Other reaction(s): psychotic reaction Midazolam 07/13/2013 Was told he needed to be restrained and was violent. Pt states he is not aware of this allergy Diazepam 07/13/2013 documented as of this encounter (statuses as of 02/01/2021) Medications End Date Status Medication Sig Dispensed Refills Start Date Active insulin lispro (HUMALOG) Inject into 0 100 UNIT/ML the skin injectionIndications: Three times Sliding Scale daily before meals Active atorvastatin (LIPITOR) 10 Take 10 mg by 0 MG tablet mouth daily. Active DULoxetine (CYMBALTA) 60 Take 60 mg by 0 MG capsule mouth daily. Active Fluticasone-Salmeterol Inhale 1 puff 0 (ADVAIR DISKUS) 250-50 into the MCG/DOSE AEPB lungs Two Times Daily. Active ALBUTEROL IN Inhale 2 0 Inhalers into the lungs every 4 (four) hours as needed. Active tamsulosin HCl (FLOMAX) Take 0.4 mg 0 0.4 MG CAPS by mouth daily. Active Simethicone 180 MG CAPS Take 180 mg 90 each 3 by mouth 8 Three times daily with meals Active VOLTAREN 1 % GEL APPLY TO THE 1 RIGHT HAND 8 THREE TIMES A DAY NEEDED Active gabapentin (NEURONTIN) TAKE ONE 1 01 400 MG capsule CAPSULE BY 8 MOUTH THREE TIMES A DAY Active meclizine (ANTIVERT) 25 Take 25 mg by 3 MG tablet mouth daily 9 as needed Active ROZEREM 8 MG tablet Take 8 mg by 4 mouth nightly 9 as needed Active cyclobenzaprine Take 10 mg by 0 (FLEXERIL) 10 MG tablet mouth Three times daily as needed for Muscle spasms Active silver sulfADIAZINE Apply 50 g 2 (SILVADENE) 1 % cream topically 9 daily Active HYDROcodone-Acetaminophen TAKE ONE 0 04/16 10-325 MG Oral Tablet TABLET BY 0 (VICODIN) MOUTH FOUR TIMES A DAY NEEDED MAXIMUM DAILY DOSE 4 Active Gabapentin 600 MG Oral TAKE ONE 0 01 Tablet (NEURONTIN) TABLET BY 9 MOUTH THREE TIMES A DAY MAXIMUM DAILY DOSE 3 Active Metoclopramide HCl 5 MG TAKE ONE 0 Oral Tablet (REGLAN) TABLET BY 0 MOUTH THREE TIMES A DAY 1 HOUR PRIOR TO MEALS Active Diclofenac Sodium 1 % APPLY TO 0 05/26/20 2 External Gel (VOLTAREN) RIGHT HAND 0 THREE TIMES A DAY NEEDED Active Lidocaine Pain Relief 4 % USE 0 05/15 External Patch DIRECTED 0 DAILY Active Prochlorperazine Maleate Take 10 mg by 0 06/28 10 MG Oral Tablet mouth every 6 1 (COMPAZINE) (six) hours as needed 02/03/2021 Active Lacosamide 100 MG Oral Take 1 tablet 60 tablet 0 0 Tablet (VIMPAT) by mouth Two 1 Times Daily for 3 days, Max Daily Dose: 200 mg 03/02/2021 Active Sodium Chloride 1 GM Oral Take 2 180 tablet 0 Tablet tablets by 1 mouth Three times daily with meals Active Insulin Glargine 100 Inject 20 1 each 0 02/01 UNIT/ML Subcutaneous Units into 1 Solution (LANTUS) the skin Two times daily as needed 01/31/2021 Discontinued (Stop Taking at Discharge) aspirin 81 MG tablet Take 81 mg by 0 mouth daily. 02/01/2021 Discontinued (Reorder) insulin glargine (LANTUS) Inject 15 0 100 UNIT/ML injection Units into the skin Two times daily as needed 01/31/2021 Discontinued (Stop Taking at Discharge) celecoxib (CELEBREX) 200 TAKE ONE 0 10/11 MG capsule CAPSULE BY 9 MOUTH EVERY DAY WITH FOOD documented as of this encounter (statuses as of 02/01/2021) Active Problems Problem Noted Date Traumatic intracranial subarachnoid hemorrhage 01/27 Intracranial hemorrhage following injury, with loss o f consciousness 01/27/2021 Cerebral edema 01/27/2021 Essential hypertension 01/27/2021 Alcohol abuse 01/27/2021 Hyponatremia 01/27/2021 COPD (chronic obstructive pulmonary disease) 021 Type 2 diabetes mellitus 01/27/2021 Diabetic gastroparesis 07/08/2018 De Quervain's disease (radial styloid tenosynovitis) 03/29/2014 Left wrist tendinitis 03/29/2014 Dupuytren's contracture of both hands 07/13/2013 History of hepatitis C Overview: Formatting of this note might be differ ent from the original. treated with Harvoni by Dr. Woodward Orthostatic hypotension documented as of this encounter (statuses as of 02/01/2021) Immunizations Name Administration Dates Next Due documented as of this encounter Social History Date Tobacco Use Types Packs/Day Years Used Quit: 05/13/2012 Former Smoker 1 35 Smokeless Tobacco: Never Used Comments Alcohol Use Standard Drinks/Week Yes 0 (1 standard drink = 0.6 o z pure alcohol) Sex Assigned at Date Recorded Not on file Date Recorded COVID-19 Exposure Response 01/27/2021 9:59 AM EDT In the last month, have you been in contact with No / Unsure someone who was confirmed or suspected to have Coronavirus / COVID-19? documented as of this encounter Last Filed Vital Signs Reading Time Taken Comments Vital Sign 134/89 02/01/2021 12:00 PM EDT Blood Pressure 115 02/01/2021 12:00 PM EDT Pulse 36.7 C (98.1 F) 02/01/2021 12:00 PM EDT Temperature 18 02/01/2021 12:00 PM EDT Respiratory Rate 95% 02/01/2021 8:00 AM EDT Oxygen Saturation - - Inhaled Oxygen Concentration 77.5 kg (170 lb 13.7 oz) 02/01/2021 3:00 AM EDT Weight - - Height 23.83 05/23/2020 10:17 AM EST Body Mass Index documented in this encounter Progress Notes * Sammy Mosley RN - 02/01/2021 1:24 PM EDT Discharge Note: Call Worker Person gave report to [facility] rehab nurse. Pt transferred to wheelchair for t ransport to facility. * Sammy Mosley RN - 02/01/2021 1:07 PM EDT Discharge Note: AVS printed and reviewed with pt at bedside including medication instructions, a ctivity/mobility recommendations, and signs/symptoms of complications. Pt dress ed and ready for transport to [facility] in [place] for rehab with discharge in structions in hand and a disc with imaging included. Call Worker Person called [facility] re hab to give report and was told they will call back. Will attempt to call again before pt leaves. Sammy Mosley RN * Theresa Sykes RN - 02/01/2021 12:30 PM EDT Patient met with patient at bedside and discuss DC plans. Patient stated that he like to go to rehab now instead of home. Patient requested for referral to be s [facility] to [facility], [facility] [place] and [facility]. Referral sent and [facility]. [facility] offered a bed. Patient and patie nt's spouse Shivam Diaz accepted the bed. Transportation arrangement made [facility] and they will transport patient at 1300. Charge nurse bedsid e nurse updated. Patient and patient's spouse Shivam are in agreement with today' s discharge to [facility]. * Sammy Mosley RN - 02/01/2021 12:09 PM EDT ICU Nursing Note: Wallet, Tablet, shoes, located in pts bedside storage. Returned to pt and will be transported to rehab with these items Sammy Mosley RN * Merle Harrison RN - 02/01/2021 12:06 AM EDT *All times approximated* 1900: Report received from off-going RN, collaborative assessment performed at [facility]. \\ 2130: Pt complaining of 10/10 head pain. Gonzalez CONDE. made aware, PRN tylenol g iven, stimuli decreased and pt repositioned. Will continue to monitor. 2300: Pt continuing to complain of 10/10 head pain and a persistent cough. Kristal CONDE made aware. Robitussin and Lortab ordered and given per MD. Will continu e to monitor. 0000: Pt resting comfortably in bed, pt is noted to be very pleasant and respect ful when interacting with this RN. [id number]: Pt complaining of 10/10 head and back pain. Pt given PRN tylenol, rep ositioned and given an ice pack for his head with little effect. Gonzalez CONDE ma de aware, Pt's neuro exam remains unchanged. One time dose of Lortab given for h ead pain and PRN Flexeril given for back pain. Will continue to monitor. 0600: Pt still complaining of head pain. Pt noted to be resting comfortably and watching a movie. Pt states the pain is not new and has been consistent, neuro e xam and vital signs remain unchanged. Pt expressed an understanding that pain me dication was given less than two hours ago. This RN assured Pt that concerns of pain management will be passed on to day team. Gonzalez CONDE made aware. 0700: Report to be given to on-coming RN, collaborative assessment to be perform ed at bedside. * Jessica Sanders, PT - 01/31/2021 3:10 PM EDT Physical Therapy Acute Care Missed Visit Note Location: bedside Attempted to visit patient for therapy, but was unable for the following reasons: arrived to attempt to see patient for PT, but patient sleeping soundly in the room, and per conversation with nurse this radio script writer to hold off for now, as patient has been intermittently agitated and restless today. Will reattempt later today or tomrorow for family training. (Therapist may be reached on Vocera) SESSION: Duration: 0 CHARGES: Total treatment minutes: Minutes Electronically Signed by: Jessica Sanders PT, 01/31/2021 3:28:19 PM * Theresa Sykes RN - 01/31/2021 2:59 PM EDT Patient discussed in morning rounds with multidisciplinary team. Physical therap y evaluation completed and recommending rehab. CM spoke to patient and patient's spouse Shivam Diaz and discuss DC plans. Patient and Shivam decline rehab.CM then spoke to Mayur Solo - Physical therapist who requested a family training for a home discharge. CM spoke to Shivam who informed me that she will come on Thursday02/01/2021 for family training. Team updated of the above plan and in agreement. Shivam and Patient requested home care services. Provided patient/Shivam with a list of in-network agencies within their preferred geographic area which are available to provide the services recommended by the physician as described in the discharge plan. Have also provided information on CMS Star ratings for the above post-acute care providers and ways for patient/Shivam to access additional information on these ratings, if they prefer. Patient, Shivam are agreeable to home care and have no preference for home care a froy. Referral sent [facility] home care and [facility]. SUKHDEV to follow. * Tanja Hughes, RD - 01/31/2021 2:41 PM EDT Medical Nutrition Therapy Current Diet: Diet Adult; Modified; Texture & Dysphagia; Dysphagia I(NDDI)- Pureed; Thin; please bed swallow evaluation Meds Include: Current Facility-Administered Medications Medication Dose Route Frequency Provider Last Rate Last Admin acetaminophen (TYLENOL) 160 MG/5ML solution (ADULT) 650 mg 650 mg Oral Q 6H PRN Maxime Hess NP 650 mg at 01/31/21 0808 albuterol (PROVENTIL) nebulizer solution 2.5 mg 2.5 mg Nebulization Q2H PRN ARCENIO Funes bisacodyl (DULCOLAX) suppository 10 mg 10 mg Rectal Q72H PRN Chasity shaw MD 10 mg at 01/31/21 1231 cyclobenzaprine (FLEXERIL) tablet 10 mg 10 mg Oral TID PRN Aurelio Funes A 10 mg at 01/31/21 0619 dextrose 50 % IV solution 25 mL 25 mL Intravenous PRN Chasity gaytan MD docusate (COLACE) 50 MG/5ML liquid 100 mg 100 mg Oral BID ARCENIO Funes 100 mg at 01/31/21 0808 enoxaparin sodium (LOVENOX) injection 40 mg 40 mg Subcutaneous Daily Christopher Snow NP 40 mg at 01/31/21 0812 folic acid (FOLVITE) tablet 1 mg 1 mg Oral Daily Maxime Hess LEAVE SPECIALIST 1 mg at 01/31/21 0808 gabapentin (NEURONTIN) tablet 600 mg 600 mg Oral TID ARCENIO Funes 60 0 mg at 01/31/21 0812 glucagon (human recombinant) (GLUCAGEN) injection 1 mg 1 mg Intramuscula r PRN Chasity Cosby MD glucose (GLUTOSE) 40 % oral gel 15 g 15 g Oral PRN Chasity Cosby MD hydrALAZINE (APRESOLINE) injection 10 mg 10 mg Intravenous Q6H PRN Efrain Leach MD insulin glargine (LANTUS) injection 15 Units 15 Units Subcutaneous BID ARCENIO Guy 15 Units at 01/31/21 0813 insulin lispro (HumaLOG) injection HIGH DOSE EATING INSULIN patients 1-22 Units 1-22 Units Subcutaneous 3 x Daily with Meals ARCENIO Funes 14 Units at 01/31/21 1231 labetalol (TRANDATE) injection 10 mg 10 mg Intravenous Q6H PRN Jason Leach MD Lacosamide (VIMPAT) tablet 100 mg 100 mg Oral BID Padmaja Snow NP 100 mg at 01/31/21 0812 lidocaine (LIDODERM) 5 % patch 1 patch 1 patch Transdermal Daily AMAYA Tomas 1 patch at 01/30/21 0809 magnesium hydroxide (MILK OF MAGNESIA) 400 MG/5ML oral suspension 45 mL 45 mL Oral Nightly Chasity Cosby MD Magnesium Oxide (MAG-OX) tablet 400 mg 400 mg Oral Daily ARCENIO Funes 400 mg at 01/31/21 1045 melatonin tablet 5 mg 5 mg Oral Nightly PRN AMAYA Comer 5 mg at 01/29/21 2159 multivitamin tablet 1 tablet 1 tablet Oral Daily Maxime Hess NP 1 tablet at 01/31/21 0811 ondansetron (ZOFRAN) injection 4 mg 4 mg Intravenous Q8H PRN Seb gates MD 4 mg at 01/27/21 1641 oxyCODONE (ROXICODONE) immediate release tablet 5 mg 5 mg Oral Q4H PRN ARCENIO Guy 5 mg at 01/31/21 1014 pantoprazole (PROTONIX) injection 40 mg 40 mg Intravenous Daily Maxime Hess NP 40 mg at 01/31/21 0812 potassium chloride (KLOR-CON) packet 40 mEq 40 mEq Oral BID ARCENIO Funes 40 mEq at 01/31/21 0815 QUEtiapine (SEROquel) tablet 50 mg 50 mg Oral 3 times per day Padmaja glass NP 50 mg at 01/31/21 0812 senna (SENOKOT) syrup 10 mL 10 mL Oral Nightly PRN Chasity Cosby MD senna tablet 2 tablet 2 tablet Oral Nightly PRN Chasity Cosby MD 2 tablet at 01/30/21 2118 sodium chloride tablet 2 g 2 g Oral 3 x Daily with Meals ARCENIO Funes 2 g at 01/31/21 1231 Recent Labs Lab 01/27/21 0915 01/27/21 1557 01/29/21 0548 01/29/21 1232 01/31/21 0629 NA 134* < > 137 < > 136 CL 100 < > 108* < > 101 BUN 7* < > 14 < > 9 GLUCOSE 279* < > 189* < > 230* K 3.8 < > 4.4 < > 3.8 BICARBONATE 17* < > 12* < > 22 CREATININE 0.61* < > 0.66* < > 0.50* CALCIUM 8.2* < > 7.2* < > 8.7* MG 1.9 < > 1.8 < > 1.9 PHOS 3.6 < > 3.0 -- -- ALBUMIN 4.0 -- -- -- -- < > = values in this interval not displayed. Recent Labs 01/29/21 0334 01/29/21 0802 01/29/21 1220 01/29/21 1607 01/29/21 2209 01/30/21 1136 01/30/21 1630 01/30/21 2131 01/31/21 0751 01/31/21 1204 POCGLU 185* 180* 202* 213* 154* 202* 229* 265* 246* 209* Height: 180.3cm Weight: 78.5 kg (173 lb 1 oz) Body Mass Index: Body mass index is 24.14 kg/m. Weight change: Weights (last 14 days) Date/Time Weight Weight Method Drug Calculation Weight [facility] 01/30/21 1300 78.5 kg (173 lb 1 oz) 01/28/21 0600 76.6 kg (168 lb 14 oz) Actual: Bed scale 01/27/21 1900 76.4 kg (168 lb 6.9 oz) Actual: Bed scale Energy/Protein Requirement based on: 76.6kg (current weight) Current Protein Needs: 1.0-1.2 g per kg body wt. = 77-92 g Current Energy Needs: 25-30 kcal per kg body wt. = 1782-8993 kcal Estimated Fluid Needs: 1mL/kcal or per team Progress Since Last Visit: Patient with PMH most significant for on home aspirinwho [facility] the setting ofafall and t raumatic right subarachnoid hemorrhage. Patients diet advanced to pureed with thins per DATA ENTRY TECHNICIAN recommendations on 01/29. PO intake has been documented at 25-100% since diet advancement with majority 75%. Weight has remained stable throughout admission. Will continue to monitor. No im mediate nutritional concerns. Patient is at nutritional risk. Current risk is Low. Recommend: - Diet per DATA ENTRY TECHNICIAN recommendations - Monitor BMP, Mag and Phos - replace electrolytes PRN - Weigh weekly to assess weight trend RD to follow during stay. Please call with any questions/concerns. * Jessica Sanders, PT - 01/31/2021 1:45 PM EDT Physical Therapy Acute Care Missed Visit Note Location: bedside Attempted to visit patient for therapy, but was unable for the following reasons: Pt declined OOB at this time, stating he wodul like to eat lunch first, then upon return after lunch, patient declined to get up, stating he woudl be ready at 3 pm. This radio script writer to reattempt at 3. (Therapist may be reached on Vocera) SESSION: Duration: 0 CHARGES: Total treatment minutes: Minutes Electronically Signed by: Jessica Sanders PT, 01/31/2021 3:27:14 PM * Rosie Henson RN - 01/31/2021 10:33 AM EDT *all times approx 1030hs: 0629 BMP mag resulted 1.9. ARCENIO Gruber made aware. New order for PO mag ox . 1215hrs: Pt c/o headache, rating 10. No PRNS able to be given at this time. Maryana ent repositioned, stimulation decreased. ARCENIO Gruber made aware. 1600hrs: Pt agitated, attempting to climb out of bed to "walk to the bathroom." Pt being verbally abusive to staff such as name-calling. This RN explained that language is unacceptable and will not be tolerated. Pt threatened to assault ano ther nurse at bedside who was assisting to keep patient safely in bed. RNs educa nataliia patient that physical violence is not allowed or tolerated, and there will b e legal repercussions if patient assaults staff. Pt agreeable to be safely place d back into bed to be cleaned up and repositioned. ARCENIO Gurber made aware. 1x Sero quel ordered. Pt c/o headache, scoring pain 10. PRN medication given at this calixto e (see MAR). * Yelena Gruber PA - 01/31/2021 7:39 AM EDT [facility] [place] [address] PATIENT NAME: German Diaz, DATE OF : 1960 . Neurocritical Care Progress Note: Date of Encounter: 01/31/2021 Length of stay: 4 German Diaz is a 60 y.o. male patient with: Principal Problem: Traumatic intracranial subarachnoid hemorrhage Active Problems: Intracranial hemorrhage following injury, with loss of consciousness Cerebral edema Essential hypertension Alcohol abuse Hyponatremia COPD (chronic obstructive pulmonary disease) Type 2 diabetes mellitus Subjective: Patient seen and examined at bedside. No events overnight. Current Medications: Reviewed. docusate 100 mg Oral BID enoxaparin 40 mg Subcutaneous Daily folic acid 1 mg Oral Daily gabapentin 600 mg Oral TID insulin lispro 1-22 Units Subcutaneous 3 x Daily with Meals Lacosamide 100 mg Oral BID lidocaine 1 patch Transdermal Daily magnesium hydroxide 45 mL Oral Nightly multivitamin 1 tablet Oral Daily pantoprozole 40 mg Intravenous Daily potassium chloride 40 mEq Oral BID QUEtiapine 50 mg Oral 3 times per day sodium chloride 2 g Oral 3 x Daily with Meals Intake/Output last 3 shifts: I/O last 3 completed shifts: In: 1178 [P.O.:1178] Out: 1760 [Urine:1760] General Exam: Temp: [36.1 C (97 F)-36.7 C (98.1 F)] (P) 36.7 C (98 F) Pulse: [79-108] 101 Resp: [14-19] 14 BP: (116-151)/(73-91) (P) 133/83 SpO2: [95 %-98 %] 95 % O2 Therapy: Room air General appearance - in no apparent distress Skin - Normal HEENT - Head: Normocephalic, no lesions, without obvious abnormality. Cardiovascular - normal sinus rhythm, no murmurs, heart sounds normal Respiratory - breath sounds clear and equal bilaterally Gastrointestinal - Bowel sounds present Extremities - extremities normal, atraumatic, no cyanosis or edema Neurologic: Mental status - opens eyes to verbal stimuli Language - follows commands Cranial nerves -Extraocular movements full, normal and symmetrical facial streng th, tongue protusion midline. Sensation - normal light touch sensation Strength - moves extremities spontaneously and against gravity Cerebellar - Deferred Gait - Deferred Neglect - Deferred Data Review: CBC: Recent Labs Lab 01/27/21 0915 01/28/21 0549 01/29/21 0548 01/30/21 0605 01/31/21 0629 WBC 11.2* < > 8.9 6.4 5.3 RBC 4.38* < > 3.40* 3.81* 4.23* HGB 14.1 < > 10.8* 12.1* 13.3* HCT 41.0 < > 32.5* 35.8* 39.6* PLT 168 < > 142* 112* 116* NEUTOPHILPCT 78 -- -- -- -- MONOPCT 8 -- -- -- -- < > = values in this interval not displayed. BMP: Recent Labs Lab 01/29/21 0548 01/29/21 0548 01/29/21 1232 01/29/21 1818 01/30/21 0605 NA 137 -- 139 -- 133* K 4.4 < > 3.4 3.5 3.3* CL 108* -- 107 -- 104 BICARBONATE 12* -- 12* -- 15* GLUCOSE 189* -- 210* -- 180* BUN 14 -- 15 -- 10 CREATININE 0.66* -- 0.73 -- 0.56* BCR -- -- 18 GFRAA >90 -- >90 -- >90 GFRNONAA >90 -- >90 -- >90 < > = values in this interval not displayed. MEDICAL DECISION MAKING: German Diaz is a 60 y.o. male on home aspirin who presented as a transfer to [facility] department in the setting of a fall and traumatic right subarachnoid hemorrhage Neuro: Events last 24 hours - None Neuro problem list: Traumatic Brain Injury w/ IPH/SAH/SDH; Etiology: Fall Neurosurgery following. Appreciate input. CTH 01/29 shows no significant change as compared to prior scan; Stable hemorrhag ic contusions in right frontal region and bilateral anterior temporal regions. S table subtle subdural hemorrhage along the right frontal convexity. Continue Salt Tabs2 g PO TID Continue Vimpat 100 mg PO BID Start Magnesium Oxide 400 mg PO every day for HERCULES Keep SBP<160 Hold AC/AP Continue supportive care. PT/OT at bedside as tolerated. ETOH Abuse; POA Continue to monitor s/s of withdrawal Agitation Continue Seroquel 50 mg PO q8h PRN Cardio: Events last 24 hours - None Vasoactive drips - None Cardio problem list: None Keep SBP<160 Pulmo: Events last 24 hours - None Pulmo problem list: None Good gas exchange. Continue with O2 as needed to keep O2 Sat>92%. GI: Events last 24 hours - None GI problem list: None Nutrition: Pureed/thin liquid diet Advance diet as tolerated. LBM: 01/30 ID: Temp (24hrs), Av.5 C (97.7 F), Min:36.1 C (97 F), Max:36.7 C (98.1 F) Events last 24 hours - None Cultures: NTD Active infection:None Antibiotics: None Endo: Events last 24 hours - None Endocrine problem list: Diabetes Type 2; POA Start home Lantus 15U BID Sugar controlled. Maintain euglycemia Renal: Events last 24 hours - None Renal problem list: None Continue with Input/Output monitoring. Maintain euvolemia Heme: Events last 24 hours - None Hematology problem list: Thrombocytopenia; Etiology: Likely Medication Induced PLT: 116 Keppra discontinued Social: Will update family. DCP. Prophylaxis: DVT Prophylaxis: Lovenox GI Prophylaxis: Protonix Seizure Prophylaxis: Keppra Code Status: Full Code Actions: Extubate NA Discontinue arterial line NA Discontinue Central line NA Discontinue kaiser NA Discontinue antibioticNA Discussed with: This patient was seen and examined by MIRNA Funes/ Dr. Perry. The plan was reviewed and formulated with her. Associated attestation - Hermelinda Perry MD - 02/01/2021 12:35 AM EDT ATTENDING ADDENDUM: I personally saw and examined the patient, discussed the case and formulated ass essment and plan with the advance practice provider (COLETTE). I did not edit the ab ove note, but agree with the findings as outlined above except where stated in t he supplemental documentation by myself. Plan of care formulated under my direct supervision. * Hermelinda Perry MD - 01/31/2021 12:35 AM EDT Critical Care Services Total Critical Care Time: 30 minutes Critical care was necessary to treat or prevent imminent or life-threatening det erioration of the following conditions: ASSOCIATE EMBALMER/FUNERAL DIRECTOR failure or compromise. Critical care time was time spent personally, by me, exclusive of any separately billable procedures, on the following activities: development of treatment plan with patient or surrogate, examination of patient, ordering and review of labor atory studies and re-evaluation of patient's condition. Discussed with: ICU staff and residents 61-year-old man with a history of alcohol use disorder who sustained multiple ce rebral contusions following a fall while intoxicated. Appears less agitated afte r switched to lacosamide. Ready for rehab. Signature: Hermelinda Perry * Jessica Sanders, PT - 01/30/2021 3:25 PM EDT Physical Therapy Acute Care Encounter Note Medical Diagnosis: right SAH Rehabilitation Precautions/Restrictions: Full code, high fall risk, SBP <140, NG tube, NPO Goal Review Visit Number: 2 SUBJECTIVE Patient Report: Pt states he wants therapy to help him get strong again. Pt states he is willing ot get up and get out of bed. Pain: Patient currently complains of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 MCG/DOSE AEPB Inhale 1 puff into t he lungs Two Times Daily. Historical Provider, gabapentin (NEURONTIN) 400 MG capsule TAKE ONE CAPSULE BY MOUTH THREE TIMES A DA Y 06/09/18 Historical Provider, Gabapentin 600 MG Oral Tablet (NEURONTIN) TAKE ONE TABLET BY MOUTH THREE TIMES A DAY MAXIMUM DAILY DOSE 3 06/06/19 Historical ProviderMD HYDROcodone-Acetaminophen 10-325 MG Oral Tablet (VICODIN) TAKE ONE TABLET BY OLIVIER TH FOUR TIMES A DAY NEEDED MAXIMUM DAILY DOSE 4 05/07/20 Historical Gustavo perez MD insulin glargine (LANTUS) 100 UNIT/ML injection Inject 15 Units into the skin Tw o times daily as needed Historical MD Jeronimo insulin lispro (HUMALOG) 100 UNIT/ML injection Inject into the skin Three times daily before meals Historical ProviderMD Lidocaine Pain Relief 4 % External Patch USE DIRECTED DAILY 05/28/20 Histor ical ProviderMD meclizine (ANTIVERT) 25 MG tablet Take 25 mg by mouth daily as needed 09/29/18 Historical ProviderMD Metoclopramide HCl 5 MG Oral Tablet (REGLAN) TAKE ONE TABLET BY MOUTH THREE TIME S A DAY 1 HOUR PRIOR TO MEALS 10/18/19 Historical ProviderMD Prochlorperazine Maleate 10 MG Oral Tablet (COMPAZINE) Take 10 mg by mouth every 6 (six) hours as needed 06/28/20 Historical ProviderMD ROZEREM 8 MG tablet Take 8 mg by mouth nightly as needed 11/11/18 Historical Pr MD rhett silver sulfADIAZINE (SILVADENE) 1 % cream Apply topically daily 01/27/19 Viraj Gilmore MD Simethicone 180 MG CAPS Take 180 mg by mouth Three times daily with meals 01/21/18 Viraj Gilmore MD tamsulosin HCl (FLOMAX) 0.4 MG CAPS Take 0.4 mg by mouth daily. Historical Pr MD rhett VOLTAREN 1 % GEL APPLY TO THE RIGHT HAND THREE TIMES A DAY NEEDED 04/06/18 Historical Provider, Multidisciplinary Problems: Principal Problem: Traumatic intracranial subarachnoid hemorrhage Active Problems: Intracranial hemorrhage following injury, with loss of consciousness Cerebral edema Essential hypertension Alcohol abuse Hyponatremia COPD (chronic obstructive pulmonary disease) Type 2 diabetes mellitus Current Diet/Tube Feed/TPN Order: Diet Adult; NPO; please bed swallow evaluation Active, Scheduled Medications: Current Facility-Administered Medications Medication Dose Route Frequency Provider Last Rate Last Admin acetaminophen (TYLENOL) 160 MG/5ML solution (ADULT) 650 mg 650 mg Oral Q 6H PRN Maxime Hess NP 650 mg at 01/28/21 1256 albuterol (PROVENTIL) nebulizer solution 2.5 mg 2.5 mg Nebulization Q2H PRN Chasity Mohammadzadeh, MD bisacodyl (DULCOLAX) suppository 10 mg 10 mg Rectal Q72H PRN Chasity shaw MD calcium gluconate in NaCl 0.9 % infusion 2 g/50 mL 2 g Intravenous Q1H P RN Chasity Cosby MD dexmedetomidine (PRECEDEX) in NaCl 0.9 % infusion 4 mcg/mL 0.1-1.5 mcg/k g/hr Intravenous Continuous Maxime Hess NP 13.3 mL/hr at 01/28/21 1021 0.7 m cg/kg/hr at 01/28/21 1021 dextrose 50 % IV solution 25 mL 25 mL Intravenous PRN Chasity gaytan MD folic acid (FOLVITE) tablet 1 mg 1 mg Oral Daily Maxime Hess NP glucagon (human recombinant) (GLUCAGEN) injection 1 mg 1 mg Intramuscula r PRN Chasity Cosby MD glucose (GLUTOSE) 40 % oral gel 15 g 15 g Oral PRN Chasity Cosby MD hydrALAZINE (APRESOLINE) injection 10 mg 10 mg Intravenous Q6H PRN Chasity Cosby MD HYDROcodone-acetaminophen (LORTAB) 5-325 MG per tablet 1 tablet 1 tablet Oral TID PRN AMAYA Moreno 1 tablet at 01/27/21 1235 insulin lispro (HUMALOG) injection HIGH DOSE NPO INSULIN patients 1-12 Un its 1-12 Units Subcutaneous Q4H Maxime Hess NP 2 Units at 01/28/21 1529 labetalol (TRANDATE) injection 10 mg 10 mg Intravenous Q6H PRN Chasity giraldo MD levETIRAcetam (KEPPRA) 500 mg in sodium chloride 100 mL (5 mg/mL) infusio n (premix) 500 mg Intravenous Q12H AMAYA Comer 400 mL/hr at 01/28/21 1256 500 mg at 01/28/21 1256 lidocaine (LIDODERM) 5 % patch 1 patch 1 patch Transdermal Daily AMAYA Tomas 1 patch at 01/28/21 0855 magnesium hydroxide (MILK OF MAGNESIA) 400 MG/5ML oral suspension 45 mL 45 mL Oral Nightly Chasity Mohammadzadeh, MD magnesium sulfate infusion 2 g/50 mL (premix) 16 mEq Intravenous Q1H PRN Chasity Cosby MD multivitamin tablet 1 tablet 1 tablet Oral Daily Maxime Hess NP NaCl infusion 0.9 % Intravenous Continuous Chasity Cosby MD 75 m L/hr at 01/28/21 0900 Rate Verify at 01/28/21 0900 niCARdipine (CARDENE) 40 mg in sodium chloride 0.9 % 200 mL infusion (0.2 mg/mL) 5-15 mg/hr Intravenous Continuous Emeli Brooks, [facility] Stopped at 2250 ondansetron (ZOFRAN) injection 4 mg 4 mg Intravenous Q8H PRN Seb gates MD 4 mg at 01/27/21 1641 pantoprazole (PROTONIX) injection 40 mg 40 mg Intravenous Daily Maxime Hess LEAVE SPECIALIST 40 mg at 01/28/21 0855 piperacillin-tazobactam (ZOSYN) IVPB 3.375 g (premix) 3.375 g Intravenou s Q8H Maxime Hess LEAVE SPECIALIST 12.5 mL/hr at 01/28/21 1530 3.375 g at 01/28/21 1530 potassium chloride 20 mEq in 50 mL IVPB (premix) 20 mEq Intravenous Q1H PRN Chasity Cosby MD Or potassium chloride 10 mEq in 100 mL IVPB (premix) 10 mEq Intravenous Q1H PRN Chasity Cosby MD 100 mL/hr at 01/28/21 0900 Rate Verify at 01/28/21 0900 potassium phosphate infusion 12 mmol/100 mL (central line) (premix) 12 m mol Intravenous Q2H PRN Chasity Cosby MD Or potassium phosphate infusion 6 mmol/100 mL (premix) 6 mmol Intravenous Q 2H PRN Chasity Cosby MD prochlorperazine (COMPAZINE) tablet 10 mg 10 mg Oral Q6H PRN Chasity shaw MD Or prochlorperazine (COMPAZINE) suppository 25 mg 25 mg Rectal Q12H PRN Pito Cosby MD Or prochlorperazine (COMPAZINE) injection 10 mg 10 mg Intravenous Q6H PRN Edil Cosby MD 10 mg at 01/27/21 1239 senna (SENOKOT) syrup 10 mL 10 mL Oral Nightly PRN Chasity Cosby MD senna tablet 2 tablet 2 tablet Oral Nightly PRN Chasity Cosby MD sodium chloride 3 % hypertonic solution 30 mL/hr Intravenous Continu ous Maxime Hess NP 30 mL/hr at 01/28/21 1019 30 mL/hr at 01/28/21 1019 sodium phosphate infusion 12 mmol/100 mL (central line) (premix) 12 mmol Intravenous Q2H PRN Chasity Cosby MD Or sodium phosphate infusion 6 mmol/100 mL (premix) 6 mmol Intravenous Q2H PRN Chasity Cosby MD thiamine (B-1) 500 mg in sodium chloride 0.9 % 50 mL IVPB 500 mg Intrave nous Q8H Maxime Hess NP 100 mL/hr at 01/28/21 1319 500 mg at 01/28/21 1319 Allergies: Midazolam, Valium [diazepam], and Adhesive tape Cultural/Restorationist/Ethnic food preferences: none Recent Labs Lab 01/27/21 0915 01/27/21 1557 01/28/21 0549 01/28/21 0549 01/28/21 1319 NA 134* < > 139 < > 139 CL 100 < > 103 < > 104 BUN 7* < > 12 < > 15 GLUCOSE 279* < > 225* < > 247* K 3.8 < > 3.9 < > 3.9 BICARBONATE 17* < > 18* < > 11* CREATININE 0.61* < > 0.73 < > 0.68* CALCIUM 8.2* < > 8.9 < > 8.6* MG 1.9 -- 2.1 -- -- PHOS 3.6 -- 2.7 -- -- ALBUMIN 4.0 -- -- -- -- < > = values in this interval not displayed. Recent Labs 01/27/21 1205 01/27/21 1630 01/27/21200901/28/21 0014 01/28/21 0409 01/28/21 0835 01/28/21 1247 POCGLU 260* 310* 282* 270* 178* 236* 223* Lab Results Component Value Date HGBA1C 9.1 (H) 01/27/2021 Interview: Patient with PMH most significant for on home aspirin who presented as a transfe r to the [facility] emergency department in the setting of a fall and traumatic rig ht subarachnoid hemorrhage. He was in his usual state of health when he presente d to [facility] emergency department in the setting of a fall (possibly due to in toxication). He left the [facility] emergency department AGAINST MEDICAL ADVICE. In the parking lot, had a fallCT head obtained and significant for right subarachnoid hemorrhage, left parietal bone fracture. On arrival to the [facility] emergency department, repeat CT head obtainedsignificant for interval De velopment and worsening of right frontal intraparenchymal hemorrhage. DDAVP admi nistered for aspirin reversal. Received consult re: tube feedings. Patient awaiting DATA ENTRY TECHNICIAN evaluation. Patient to be fed via NGT, however not noted to be placed per LDAs. Recommendations below i f TF should start. Meds and labs reviewed. +percedex gtt. NS @ 75mL/hr running, and NaCl 3% @ 30mL/ hr running. Learning or discharge needs identified: tbd Height: Weight: 76.6 kg (168 lb 14 oz) Weight Method: Actual: Bed scale Body Mass Index: Body mass index is 23.55 kg/m. IBW Range (kg): 78.2-86.0kg Weight change: Weights (last 14 days) Date/Time Weight Weight Method Drug Calculation Weight [facility] 01/28/21 0600 76.6 kg (168 lb 14 oz) Actual: Bed scale 01/27/21 1900 76.4 kg (168 lb 6.9 oz) Actual: Bed scale Obesity or underweight? No Malnutrition Identified: No Malnutrition Criteria: Unable to identify 2 criteria Skin: Intact Nutrition Obstacles: (?) Swallowing and None Energy/Protein Requirement based on: 76.6kg (current weight) Current Protein Needs: 1.0-1.2 g per kg body wt. = 77-92 g Current Energy Needs: 25-30 kcal per kg body wt. = 4190-8544 kcal Estimated Fluid Needs: 1mL/kcal or per team I/O last 3 completed shifts: In: 3074.6 [I.V.:2565.8; IV Piggyback:508.7] Out: 1000 [Urine:1000] No intake/output data recorded. Nutrition Diagnostic Statement(s): Patient is at nutritional risk. Current risk is High. Patient is found to have inadequate oral food/beverage intake related to NPO as evidenced by NPO. Nutrition Intervention(s): Nutrition Prescription/Diet Order: NPO and Enteral Nutrition: Jevity 1.5 Nutrition Goal(s)/Outcome(s): Patient will tolerate TF during admission. Patient will maintain weight. Refer to Patient Education for current learning assessment and patient education needs. Refer to Care Plan for Interdisciplinary Care Plan documentation. Recommendations: - Jevity 1.5 @ 60mL/hr x24hr - providing 2160kcal, 92g protein and 1095mL free water - 180mL free water flushes q4H - Advance diet as medically safe per DATA ENTRY TECHNICIAN recommendations - Monitor BMP, Mag and Phos - replace electrolytes PRN - Weigh weekly to assess weight trend Monitoring/Evaluation: Labs, Pt care rounds, Weight and I&O RD to follow during stay. Please call with any questions/concerns. * Maxime Hess NP - 01/28/2021 12:44 PM EDT [facility] [place] [address] PATIENT NAME: German Diaz, DATE OF : 1960 . Neurocritical Care Progress Note: Date of Encounter: 01/28/2021 Length of stay: 1 German Diaz is a 60 y.o. male patient with: Principal Problem: Traumatic intracranial subarachnoid hemorrhage Active Problems: Intracranial hemorrhage following injury, with loss of consciousness Cerebral edema Essential hypertension Alcohol abuse Hyponatremia COPD (chronic obstructive pulmonary disease) Type 2 diabetes mellitus Subjective: Patient unable to self report. No acute events overnight. Current Medications: Reviewed. folic acid 1 mg Oral Daily insulin lispro 1-12 Units Subcutaneous Q4H levETIRAcetam 500 mg Intravenous Q12H lidocaine 1 patch Transdermal Daily magnesium hydroxide 45 mL Oral Nightly multivitamin 1 tablet Oral Daily pantoprozole 40 mg Intravenous Daily piperacillin-tazobactam 3.375 g Intravenous Q8H thiamine (VITAMIN B1) IVPB 500 mg Intravenous Q8H Intake/Output last 3 shifts: I/O last 3 completed shifts: In: 4837.1 [I.V.:2330.7; IV Piggyback:2506.4] Out: 1300 [Urine:1300] General Exam: Temp: [36.4 C (97.5 F)-39.3 C (102.7 F)] 38.7 C (101.7 F) Pulse: [82-123] 87 Resp: [15-20] 18 BP: (94-138)/(60-93) 136/91 SpO2: [91 %-97 %] 96 % O2 Therapy: Room air General appearance - Alert, appears slightly agitated Skin - Warm and intact throughout HEENT - Normocephalic, symmetrical, atraumatic Cardiovascular - Heart rate and rhythm regular Respiratory - Lung sounds equal and clear in all lezama Gastrointestinal - Bowel sounds normoactive, abdomen soft and nontender to palpa tion Extremities - Normal, atraumatic, no cyanosis or edema Neurologic: Mental status - Alert & oriented to self, hospital, and year Language - 1-2 word responses, occasionally inappropriate Cranial nerves - PERRL bilaterally, EOMI, facial strength equal bilaterally Sensation - Intact to light touch in BUEs, withdraws BLEs to painful stimuli Strength - antigravity strength in all extremities Cerebellar - deferred Gait = deferred Neglect = absent Data Review: CBC: Recent Labs Lab 01/27/21 0915 01/28/21 0549 WBC 11.2* 10.3* RBC 4.38* 4.21* HGB 14.1 13.6 HCT 41.0 41.0 PLT 168 167 NEUTOPHILPCT 78 -- MONOPCT 8 -- BMP: Recent Labs Lab 01/27/21 1557 01/28/21 0058 01/28/21 0549 NA 134* 137 139 K 4.5 3.9 3.9 CL 96* 102 103 BICARBONATE 15* 18* 18* GLUCOSE 337* 257* 225* BUN 10 12 12 CREATININE 0.65* 0.74 0.73 BCR 15 17 16 GFRAA >90 >90 >90 GFRNONAA >90 >90 >90 Imaging: [facility] 01/27- Study is significantly limited by motion however grossly the right fro ntal and bilateral temporal lobe hemorrhages are stable with adjacent small subdural hemorrhage as discussed above. MEDICAL DECISION MAKING: Neuro: Events last 24 hours - CTH without significant change Neuro problem list: Traumatic IPH/SAH/SDH s/p fall, POA Neurosurgery consulting, appreciate recs CTH this morning without significant change SBP <140 Continue to hold home ASA Continue keppra 500mg bid for seizure ppx Repeat CTH tomorrow Cerebral edema Continue 3% to target Na 140-150 History of ETOH abuse Continue precedex for possible withdrawal symptoms Continue MV, folate, and wernickes dose thiamine History of stroke, POA Home dose of ASA held in setting of bleed Cardio: Events last 24 hours - none Cardio problem list: none Pulmo: Events last 24 hours - none Pulmo problem list: none, tolerating RA GI: Events last 24 hours - none GI problem list: Oropharyngeal dysphagia 2/2 R IPH/SAH NGT to start TF Speech for swallow eval LBM 01/27, bowel regimen protonix for GI ppx ID: Temp (24hrs), Av.8 C (100.1 F), Min:36.4 C (97.5 F), Max:39. 3 C (102.7 F) Events last 24 hours - fever ID problem list: SIRS Etiology unclear Tmax 39.3, WBC 10.3 Panculture pending Continue zosyn Endo: Events last 24 hours - hyperglycemia Endocrine problem list: Uncontrolled DM type 2, POA Continue high dose ISS A1C 9.1 Renal: Events last 24 hours - none Renal problem list: none Heme: Events last 24 hours - none Hematology problem list: none Social: Will update family when they arrive Prophylaxis: DVT Prophylaxis: SCDs Code Status: Full Code Actions: Extubate NA Discontinue arterial line NA Discontinue Central line NA Discontinue kaiser NA Discontinue antibioticNo Discussed with: The patient was seen and examined by Leo Hess NP-C with Dr. Perry. The plan was reviewed and formulated by her. Associated attestation - Hermelinda Perry MD - 01/28/2021 11:34 PM EDT ATTENDING ADDENDUM: I personally saw and examined the patient, discussed the case and formulated ass essment and plan with the advance practice provider (COLETTE). I did not edit the ab escobare note, but agree with the findings as outlined above except where stated in t he supplemental documentation by myself. Plan of care formulated under my direct supervision. * Ayana Bustos - 01/28/2021 12:33 PM EDTSummary: pt was in an altered status Spiritual Care Progress Note Film Composer: Chaplain Ayana Bustos M.DIV, [facility] Patient Name: German Diaz Age: 60 y.o. Sex: male Room/Bed: [address] [address] Affiliation/Tradition: Bahai Admit Date: 01/27/2021 Referrals: Referral From: Rounding On Unit Referral To: Film Composer Contact Information: vocera Spiritual Care Assessment Spouse/Significant Other Name/Relationship: None present Assessed Need for Visit: Critical Patient Description: Altered Mental Status (AMS) Spiritual/Cultural/Social Issues Assessment: German responded to his name but d id not appear to understand what anyone said to him. I told his registered safety engineer th at both German and he would be prayed for. Routine visit Spiritual Care Intervention: Jesus Luis, Staff Support Spiritual Outcomes - Patient: No change noted Spiritual Outcomes - Family: Staff felt supported spiritually Spiritual Care Plan Goals of Care: Film Composer will monitor and/or provide for ongoing identified spiri tual needs as they emerge throughout the hospitalization. Outcome: unchanged Spiritual Care Follow Up Patient Follow-up Plan: Routine visit Family Follow-up Plan: No contact made at this time * Bebo Weinberg RN - 01/28/2021 10:52 AM EDT Images from the original note were not included. If wound was present on admission, this documentation was sent to attending prov ider for cosignature. Associated attestation - Hermelinda Perry MD - 01/30/2021 2:25 AM EDT Noted. * Fabien Lopez RN - 01/28/2021 10:49 AM EDT Case Management Screen & Assessment Patient Name: German Diaz Gender: male Date of : 1960 Admission Dx: Traumatic intracranial subarachnoid hemorrhage, without loss of co nsciousness, subsequent encounter [S06.6X0D] Age: 60 y.o. Admission: 01/27/2021 6:57 AM Attending Provider: Hermelinda Perry MD High Risk Criteria - Prior to Admission/Upon Arrival EDGE PLUGGER-Type of Residence: Private Residence EDGE PLUGGER- Home Care Services: Yes EDGE PLUGGER- Type of Home Care Services: Home Health Aid Limited Home Supports/Lives Alone?: No Multi trauma/Critical care/Step down admit?: Yes Head/Spinal cord injury?: Yes Self Pay: No Multiple ED visits?: No Related/Unplanned readmission within 30 days?: No Complex/New medical issues: s/p fall with SAH Relevant comorbidities: see EPIC Screening Outcome Social Work Consult Needed?: Yes Social Work Consult Order Exists: Acknowledge Further Case Management Needs?: Case Management Needs Chart Review PCP Verified?: Patient has PCP Prior to Admission: Functional/Environmental Assessment Bathing: Needs assistance Dressing: Needs assistance Toileting: Independent Medication administration: Needs assistance Transfers: Independent Ambulation: Independent Meal preparation: Needs assistance Number of stairs into home: 0 (elevator access) Number of stairs to bathroom: 0 Number of stairs to bedroom: 0 Durable Medical Equipment (DME): Cane, Grab bars, Other (comment) (shower chair) Prior to Admission: Support Services Home Care (Type, Name & Phone): Self direct publishing director through a Cerebral Palsy program Potential Barriers/Teaching Needs Physical: PT,OT, DATA ENTRY TECHNICIAN Case Management Re-Review Case Management Re-Review Needed?: Yes Case Management Re-Review Date: 01/30/21 Discharge Planning Living Arrangements: Spouse/significant other Support Systems: Spouse/significant other, Home care staff Type of Residence: Private residence Is this patient appropriate for transfer to [facility]?: No Patient/family informed of need for discharge planning?: Yes Patient expects to be discharged to:: home vs STR Does the patient need discharge transport arranged?: Yes Note: Chart reviewed. Called and spoke with the spouse, Shivam Diaz. EDGE PLUGGER, kurtis ing home with spouse and needing assistance with baths, dressing, meals, and med s. Has self directed publishing director. Per spouse the aids are from a cerebral palsy program . Uses a cane for ambulation. Room air baseline. Does have a history of falls pe r the . Admitted from [facility] post a fall in their parking lot wi th subsequent SAH after leaving [facility]. Currently NPO. Therapy evals pending. SW co nsulted. CM to following. Fabien Lopez * Santiago Garvin MD - 01/28/2021 7:31 AM EDT Brief Neurosurgery Progress Note Care of patient discussed with attending. Patient with waxing and waning exam. R epeat CT shows stable contusions. No neurosurgical intervention warranted, neuro surgery will sign off. Patient will follow up with Dr. Lorenzo in clinic in 2 we eks with repeat CTH. Santiago Garvin MD (Tony) Neurosurgery PGY-2 * Katlyn Galicia RN - 01/27/2021 6:43 PM EDT 5: Pt arrived to unit from emergency department. Carin Hess NP at bedside to as sess patient. * Katlyn Galicia RN - 01/27/2021 6:43 PM EDT Images from the original note were not included. If wound was present on admission, this documentation was sent to attending prov ider for cosignature. * Chasity Cosby MD - 01/27/2021 11:31 AM EDT Images from the original note were not included. documented in this encounter H&P Notes * Seb Billy MD - 01/27/2021 6:32 PM EDT Please use the Neurology consult note from 01/27/2021 as the H&P. documented in this encounter Procedure Notes * Elizabeth Hou MD - 01/28/2021 10:39 AM EDT Associated Order(s): EEG ROUTINE STUDY EEG REPORT NUMBER [id number] DATE OF PROCEDURE: 01/28/2021 HISTORY: The patient is a 60 y.o. male with a history of multiple falls with right fronta l ICH, Right temporal subdural hemorrhage, and small right frontal SAH found on subsequent imaging. No current facility-administered medications on file prior to encounter. Current Outpatient Medications on File Prior to Encounter Medication Sig Dispense Refill ALBUTEROL IN Inhale 2 Inhalers into the lungs every 4 (four) hours as nee ded. aspirin 81 MG tablet Take 81 mg by mouth daily. atorvastatin (LIPITOR) 10 MG tablet Take 10 mg by mouth daily. celecoxib (CELEBREX) 200 MG capsule TAKE ONE CAPSULE BY MOUTH EVERY DAY W ITH FOOD 0 cyclobenzaprine (FLEXERIL) 10 MG tablet Take 10 mg by mouth Three times d aily as needed for Muscle spasms Diclofenac Sodium 1 % External Gel (VOLTAREN) APPLY TO RIGHT HAND THREE T IMES A DAY NEEDED DULoxetine (CYMBALTA) 60 MG capsule Take 60 mg by mouth daily. Fluticasone-Salmeterol (ADVAIR DISKUS) 250-50 MCG/DOSE AEPB Inhale 1 puff into the lungs Two Times Daily. gabapentin (NEURONTIN) 400 MG capsule TAKE ONE CAPSULE BY MOUTH THREE CALIXTO ES A DAY 1 Gabapentin 600 MG Oral Tablet (NEURONTIN) TAKE ONE TABLET BY MOUTH THREE TIMES A DAY MAXIMUM DAILY DOSE 3 HYDROcodone-Acetaminophen 10-325 MG Oral Tablet (VICODIN) TAKE ONE TABLET BY MOUTH FOUR TIMES A DAY NEEDED MAXIMUM DAILY DOSE 4 insulin glargine (LANTUS) 100 UNIT/ML injection Inject 15 Units into the skin Two times daily as needed insulin lispro (HUMALOG) 100 UNIT/ML injection Inject into the skin Three times daily before meals Lidocaine Pain Relief 4 % External Patch USE DIRECTED DAILY meclizine (ANTIVERT) 25 MG tablet Take 25 mg by mouth daily as needed 3 Metoclopramide HCl 5 MG Oral Tablet (REGLAN) TAKE ONE TABLET BY MOUTH THR EE TIMES A DAY 1 HOUR PRIOR TO MEALS Prochlorperazine Maleate 10 MG Oral Tablet (COMPAZINE) Take 10 mg by mout h every 6 (six) hours as needed ROZEREM 8 MG tablet Take 8 mg by mouth nightly as needed 4 silver sulfADIAZINE (SILVADENE) 1 % cream Apply topically daily 50 g 2 Simethicone 180 MG CAPS Take 180 mg by mouth Three times daily with meals 90 each 3 tamsulosin HCl (FLOMAX) 0.4 MG CAPS Take 0.4 mg by mouth daily. VOLTAREN 1 % GEL APPLY TO THE RIGHT HAND THREE TIMES A DAY NEEDED 1 Scheduled Meds: folic acid 1 mg Oral Daily insulin lispro 1-12 Units Subcutaneous Q4H levETIRAcetam 500 mg Intravenous Q12H lidocaine 1 patch Transdermal Daily magnesium hydroxide 45 mL Oral Nightly multivitamin 1 tablet Oral Daily pantoprozole 40 mg Intravenous Daily piperacillin-tazobactam 3.375 g Intravenous Q8H thiamine 100 mg Oral Daily Continuous Infusions: dexmedetomidine 0.7 mcg/kg/hr (01/28/21 1021) sodium chloride 75 mL/hr at 01/28/21 0700 niCARdipine Stopped (01/27/21 2250) sodium chloride 30 mL/hr (01/28/21 1019) PRN Meds:.acetaminophen, albuterol, bisacodyl, calcium gluconate, dextrose, gluc agon (human recombinant), glucose, hydrALAZINE, HYDROcodone-acetaminophen, labet alol, magnesium sulfate, ondansetron, potassium chloride OR potassium chlori de, potassium phosphate OR potassium phosphate, prochlorperazine OR proc hlorperazine OR prochlorperazine, senna, senna, sodium phosphate OR sodi um phosphate TECHNICAL DESCRIPTION: This digital EEG was recorded using 2 EKG and 21 scalp and/or ear electrodes. I t was reviewed in referential and bipolar montages following reformatting in the 10-20 International electrode placement system. EEG INTERPRETATION: Background in the most stimulated state consists of 15-30 microvolt, 6 - 7 Hz po marshal sustained posterior dominant rhythm (PDR) in the left side but not in the r ight. There is generalized slowing with diffuse delta activity is noted through out the recording and continuous focal slowing and mild attenuation in the right hemisphere. Drowsiness/Sleep [] The patient remains only in the awake state throughout the study. [] The patient is intubated, comatose and unresponsive during the recording. [] The patient is not intubated, but comatose and unresponsive during the record ing. [x] The patient is stuporous throughout the recording. [] During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 develop pneumonia post-operatively Outcome: Progressing Problem: Risk for DVT/PE Goal: Patient will not develop a DVT/PE Outcome: Progressing Problem: Risk for Gastrointestinal Complications Goal: Patient will not develop gastrointestinal complications Description: Nausea/vomiting, constipation, dehydration Outcome: Progressing Problem: Self Care Deficit Goal: Patient will perform Activities of Daily Living at optimal level Outcome: Progressing Problem: Psychosocial Needs Goal: Psychosocial needs will be met during this hospitalization Outcome: Progressing Problem: Discharge Needs Goal: Patient discharge needs are met Description: Collaborate with interdisciplinary team and initiate plans and inte rventions as needed Outcome: Progressing documented in this encounter Plan of Treatment Date/Time Name Type Priority Associated Diag noses 01/28/2021 1:19 PM EDT Blood culture ; Microbiology Routine 01/28/2021 1:19 PM EDT Blood culture ; Microbiology Routine Order Schedule Name Type Priority Associated Diag noses AM Draw for 30 Days starting 01/28/2021 until 02/26/2021, 5 completed CBC Lab Routine 4X Daily (AC & HS) for 30 Days starting 01/29/2021 until 02/28/2021, 10 completed Glucose Monitoring Point of Care Routine Fingerstick ACHS Testing-Docked Device AM Draw for 3 Days starting 02/01/2021 u ntil 02/03/2021, 1 completed Basic Metabolic Panel Lab Routine Health Maintenance Due Date Last Done Comments MMR Vaccines (1 of 1 - 08/29/1961 Standard series) Varicella Vaccines (1 of 08/29/1961 2 - 2-dose childhood series) Pneumococcal Vaccine: 65+ 1964 Years (1 of 2 - PPSV23) Pneumococcal Vaccine: 1966 Pediatrics (0 to 5 Years) and At-Risk Patients (6 to 64 Years) (1 of 2 - PPSV23) DTaP,Tdap,and Td Vaccines 1965 (1 - Tdap) HIV Screening 08/29/1971 Diabetic Foot Exam 1976 Dilated Retinal Exam 1976 Urine Microalbumin 1976 Zoster Vaccines (1 of 2) 2008 Influenza Vaccine 03/15/2021 03/23/2018, 05/25/2017, 06/18/2016, Additional history exists Hemoglobin A1c 07/30/2021 01/27/2021, 01/27/2021 Lipid Disorder Screening 01/27/2022 01/27/2021, 01/27/2021 Colon Cancer Screening 10 01/21/2026 01/22/2016 yrs Hepatitis A Vaccines Aged Out 04/11/2014, No longer eligible based on patient's age to 08/12/2013, complete this topic 07/12/2013 Hepatitis B Vaccines Aged Out 04/11/2014, No longer eligible based on patient's age to 08/12/2013, complete this topic 07/12/2013 Hepatitis C Screening (B. Completed 07/08/2018, [id number]) 07/08/2018, 01/21/2018, Additional history exists COVID-19 Vaccine Completed 09/25/2020, 08/30/2020 HIB Vaccines Aged Out No longer eligible based on patient's age to complete this topic IPV Vaccines Aged Out No longer eligible based on patient's age to complete this topic documented as of this encounter Procedures Comments Procedure Name Priority Date/Time Associated Diag nosis POCT GLUCOSE, DOCKED Routine 02/01/2021 11:46 AM EDT RESPIRATORY PATHOGEN Routine 02/01/2021 PANEL 10:11 AM EDT COVID-19 PCR Routine 02/01/2021 10:11 AM EDT POCT GLUCOSE, DOCKED Routine 02/01/2021 6:58 AM EDT CBC Routine 02/01/2021 4:25 AM EDT MAGNESIUM LEVEL Routine 02/01/2021 4:25 AM EDT BASIC METABOLIC PANEL Routine 02/01/2021 4:25 AM EDT POCT GLUCOSE, DOCKED Routine 01/31/2021 9:29 PM EDT POCT GLUCOSE, DOCKED Routine 01/31/2021 4:56 PM EDT POCT GLUCOSE, DOCKED Routine 01/31/2021 12:04 PM EDT POCT GLUCOSE, DOCKED Routine 01/31/2021 7:51 AM EDT CBC Routine 01/31/2021 6:29 AM EDT MAGNESIUM LEVEL Routine 01/31/2021 6:29 AM EDT BASIC METABOLIC PANEL Routine 01/31/2021 6:29 AM EDT POCT GLUCOSE, DOCKED Routine 01/30/2021 9:31 PM EDT POCT GLUCOSE, DOCKED Routine 01/30/2021 4:30 PM EDT POCT GLUCOSE, DOCKED Routine 01/30/2021 11:36 AM EDT CBC Routine 01/30/2021 6:05 AM EDT MAGNESIUM LEVEL Routine 01/30/2021 6:05 AM EDT BASIC METABOLIC PANEL Routine 01/30/2021 6:05 AM EDT POCT GLUCOSE, DOCKED Routine 01/29/2021 10:09 PM EDT POTASSIUM Routine 01/29/2021 6:18 PM EDT MAGNESIUM LEVEL Routine 01/29/2021 6:18 PM EDT POCT GLUCOSE, DOCKED Routine 01/29/2021 4:07 PM EDT BASIC METABOLIC PANEL Timed 01/29/2021 12:32 PM EDT POCT GLUCOSE, DOCKED Routine 01/29/2021 12:20 PM EDT POCT GLUCOSE, DOCKED Routine 01/29/2021 8:02 AM EDT CBC Routine 01/29/2021 5:48 AM EDT PHOSPHORUS LEVEL Routine 01/29/2021 5:48 AM EDT MAGNESIUM LEVEL Routine 01/29/2021 5:48 AM EDT CALCIUM, IONIZED Routine 01/29/2021 5:48 AM EDT BASIC METABOLIC PANEL Timed 01/29/2021 5:48 AM EDT POCT GLUCOSE, DOCKED Routine 01/29/2021 3:[address] HEAD WITHOUT CONTRAST Routine 01/29/2021 [id number] 2:56 AM EDT BASIC METABOLIC PANEL Routine 01/29/2021 1:35 AM EDT BASIC METABOLIC PANEL Timed 01/28/2021 11:43 PM EDT POCT GLUCOSE, DOCKED Routine 01/28/2021 11:14 PM EDT POCT GLUCOSE, DOCKED Routine 01/28/2021 8:23 PM EDT BASIC METABOLIC PANEL Timed 01/28/2021 6:52 PM EDT POCT GLUCOSE, DOCKED Routine 01/28/2021 3:26 PM EDT BLOOD CULTURE Routine 01/28/2021 1:19 PM EDT BLOOD CULTURE Routine 01/28/2021 1:19 PM EDT BASIC METABOLIC PANEL Timed 01/28/2021 1:19 PM EDT POCT GLUCOSE, DOCKED Routine 01/28/2021 12:47 PM EDT EEG ROUTINE STUDY Routine 01/28/2021 10:39 AM EDT STAPH AUREUS MRSA PCR Routine 01/28/2021 10:16 AM EDT URINALYSIS WITH Routine 01/28/2021 MICROSCOPIC 10:16 AM EDT XR CHEST FRONTAL ONLY STAT 01/28/2021 [id number] 9:43 AM EDT POCT GLUCOSE, DOCKED Routine 01/28/2021 8:35 AM EDT CBC Routine 01/28/2021 5:49 AM EDT PHOSPHORUS LEVEL Routine 01/28/2021 5:49 AM EDT MAGNESIUM LEVEL Routine 01/28/2021 5:49 AM EDT CALCIUM, IONIZED Routine 01/28/2021 5:49 AM EDT BASIC METABOLIC PANEL Timed 01/28/2021 5:49 AM EDT POCT GLUCOSE, DOCKED Routine 01/28/2021 4:09 AM EDT BASIC METABOLIC PANEL Timed 01/28/2021 12:58 AM EDT POCT GLUCOSE, DOCKED Routine 01/28/2021 12:[address] HEAD WITHOUT CONTRAST Routine 01/27/2021 [id number] 9:37 PM EDT POCT GLUCOSE, DOCKED Routine 01/27/2021 8:10 PM EDT POCT GLUCOSE, DOCKED Routine 01/27/2021 4:30 PM EDT BASIC METABOLIC PANEL Routine 01/27/2021 3:[address] HEAD WITHOUT CONTRAST Routine 01/27/2021 [id number] 2:21 PM EDT XR HAND 2 VIEWS [id number] Routine 01/27/2021 12:15 PM EDT POCT GLUCOSE, DOCKED Routine 01/27/2021 12:05 PM EDT DRUGS OF ABUSE, URINE Routine 01/27/2021 12:02 PM EDT URINALYSIS WITH Routine 01/27/2021 MICROSCOPIC 12:02 PM EDT XR CHEST FRONTAL ONLY Routine 01/27/2021 [id number] 11:57 AM EDT EKG 12-LEAD - CMAXX 01/27/2021 REPORT 10:38 AM EDT EKG 12-LEAD - CMAXX 01/27/2021 REPORT 10:38 AM EDT EKG 12-LEAD - CMAXX 01/27/2021 REPORT 10:38 AM EDT EKG 12-LEAD STAT 01/27/2021 10:38 AM EDT PARTIAL THROMBOPLASTIN Routine 01/27/2021 TIME (PTT) 9:15 AM EDT PROTIME INR Routine 01/27/2021 9:15 AM EDT CBC AND DIFFERENTIAL Routine 01/27/2021 9:15 AM EDT PHOSPHORUS LEVEL Routine 01/27/2021 9:15 AM EDT MAGNESIUM LEVEL Routine 01/27/2021 9:15 AM EDT HEMOGLOBIN A1C Routine 01/27/2021 9:15 AM EDT HEPATIC FUNCTION PANEL A Routine 01/27/2021 9:15 AM EDT LIPID PANEL Routine 01/27/2021 9:15 AM EDT BASIC METABOLIC PANEL STAT 01/27/2021 9:[address] HEAD WITHOUT CONTRAST STAT 01/27/2021 [id number] 8:49 AM EDT documented in this encounter Results * POCT glucose, docked (02/01/2021 11:46 AM EDT) Pathologist [facility] POC Glucose 243 (H) 70 - 140 mg/dL [facility] POC Specimen Whole Blood Performing Organization Address City/[facility] P rita Number POINT OF CARE TEST [address] [place], [place] [id number] [place] [address] POC [address] [place] [address] * Respiratory Pathogen Panel (02/01/2021 10:11 AM EDT) Pathologist [facility] Special Request None [facility] Clin Pathology Respiratory PCR PCR Results [facility] Panel [facility] Clin Pathology Culture/Results See Labs Tab for 2019 nCoV ANTONY Upsta te RT-PCR results Med [facility] Clin Pathology Adenovirus Not Detected [facility] Pathology Coronavirus Not Detected [facility] 229E [facility] Pathology Coronavirus Not Detected [facility] HKU1 [facility] Pathology Coronavirus Not Detected [facility] NL63 [facility] Pathology Coronavirus Not Detected [facility] OC43 [facility] Pathology Human Not Detected [facility] Metapneumovirus [facility] Pathology Rhinovirus/ Not Detected [facility] Enterovirus [facility] Clin Pathology Influenza A Not Detected [facility] Pathology Influenza B Not Detected [facility] Pathology Parainfluenza Not Detected [facility] virus 1 [facility] Pathology Parainfluenza Not Detected [facility] virus 2 [facility] Parainfluenza Not Detected [facility] virus 3 [facility] Parainfluenza Not Detected [facility] virus 4 [facility] Pathology RSV Not Detected [facility] Pathology Bordetella Not Detected [facility] pertussis [facility] Pathology Chlamydia Not Detected [facility] pneumoniae [facility] Pathology Mycoplasma Not Detected [facility] pneumoniae [facility] Clin Pathology Bordetella Not Detected [facility] parapertussis [facility] Clin Pathology Specimen Nasopharyngeal Swab Performing Organization Address City/State/ZIP Code P rita Number [facility] CLINICAL [address] [place], [place] [address] PATHOLOGY [facility] [address] [place], [place] [address] Clin Pathology * COVID-19 PCR (02/01/2021 10:11 AM EDT) Specimen Nasopharyngeal Swab [facility] Description CLINICAL PATHOLOGY SARS CoV-2 2019 nCoV Real-Time RT-PCR: 2019 nCoV Real-Calixto e [facility] NOT DETECTED RT-PCR: NOT DETECTED Med [facility] Clin Pathology Assay performed Test performed using [employer] [facility] jeffers Respiratory Panel. Med [facility] Clin Pathology First COVID-19 UNKNOWN [facility] Test? CLINICAL PATHOLOGY Employed in [facility] CLINICAL setting? PATHOLOGY Symptomatic for NO [facility] COVID-19 as CLINICAL defined by CDC? PATHOLOGY Date of symptom UNKNOWN [facility] onset? CLINICAL ([id number]) PATHOLOGY Hospitalized [facility] for COVID-19? CLINICAL PATHOLOGY Admitted to ICU UNKNOWN [facility] for COVID-19? CLINICAL PATHOLOGY Resident in a [facility] CLINICAL (group) care PATHOLOGY setting? ? UNKNOWN [facility] CLINICAL PATHOLOGY Specimen Nasopharyngeal Swab Performing Organization Address [facility] P rita Number [facility] CLINICAL [address] [place], [place] [address] PATHOLOGY [facility] [address] [place], [place] [address] Clin Pathology * POCT glucose, docked (02/01/2021 6:58 AM EDT) POC Glucose 230 (H) 70 - 140 mg/dL [facility] POC Specimen Whole Blood Performing Organization Address City/[facility] P rita Number POINT OF CARE TEST [address] [place] [address] [facility] POC [address] [place] [address] * Basic Metabolic Panel (02/01/2021 4:25 AM EDT) Bicarbonate 24 22 - 29 mmol/L [facility] Clin Pathology Chloride 101 98 - 107 mmol/L [facility] Clin Pathology Creatinine 0.51 (L) 0.70 - 1.20 mg/dL [facility] Clin Pathology Glucose 253 (H) 70 - 140 mg/dL [facility] Clin Pathology Potassium 3.6 3.4 - 5.1 mmol/L [facility] Clin Pathology Sodium 137 136 - 145 mmol/L [facility] Clin Pathology Blood Urea 7 (L) 8 - 23 mg/dL [facility] Nitrogen Pending Sale To [facility] Clin Pathology Anion Gap 12 8 - 15 mmol/L [facility] Clin Pathology Osmolality, Kane 291 275.0 - 300.0 [facility] mosm/kg Pending Sale To [facility] Clin Pathology BUN/Cre Ratio 14 [facility] Clin Pathology Calcium 8.6 (L) 8.8 - 10.2 mg/dL [facility] Clin Pathology GFR Non >90 >60 mL/min/1.73m2 [facility] 2008 Pending Sale To [facility] Clin CDK-EPI Pathology GFR >90 >60 mL/min/1.73m2 [facility] 2008 [facility] CKD-EPI Pathology Specimen Plasma Performing Organization Address [facility] P rita Number [address] [address] Clin Pathology * Magnesium Level (02/01/2021 4:25 AM EDT) Magnesium 1.9 1.6 - 2.4 mg/dL [facility] Clin Pathology Specimen Plasma Performing Organization Address City/[facility] P rita Number [facility] CLINICAL [address] [place], [place] [address] [address] Clin Pathology * CBC (02/01/2021 4:25 AM EDT) White Blood 4.7 4.00 - 10.00 10*3/uL [facility] ate Cell Pending Sale To [facility] Clin Pathology Red Blood Cell 4.17 (L) 4.60 - 6.10 10*6/uL [facility] Pathology Hemoglobin 13.2 (L) 13.5 - 18.0 g/dL [facility] Clin Pathology Hematocrit 39.1 (L) 41.0 - 53.0 % [facility] Clin Pathology Mean Cell 93.8 80.0 - 96.0 fL [facility] Volume [facility] Clin Pathology Mean Cell 31.6 27.0 - 33.0 pg [facility] Clin Pathology Mean Cell Hgb 33.7 32 - 36 g/dL [facility] Clin Pathology Red Cell Dist 12.1 11.5 - 14.5 % [facility] Clin Pathology Platelet Count 122 (L) 150 - 400 10*3/uL [facility] Clin Pathology Specimen EDTA Whole Blood Performing Organization Address City/[facility]/ZIP Code P rita Number [facility] CLINICAL [address] [place], [place] [address] PATHOLOGY [facility] [address] [place], [place] [address] Clin Pathology * POCT glucose, docked (01/31/2021 9:29 PM EDT) POC Glucose 181 (H) 70 - 140 mg/dL [facility] POC Specimen Whole Blood Performing Organization Address City/[facility] P rita Number POINT OF CARE TEST [address] [place], [place] [id number] [place] [address] POC [address] [place] [address] * POCT glucose, docked (01/31/2021 4:56 PM EDT) POC Glucose 278 (H) 70 - 140 mg/dL [facility] POC Specimen Whole Blood Performing Organization Address [facility] P rita Number POINT OF CARE TEST [address] [place], [place] [id number] [place] [address] POC [address] [place] [address] * POCT glucose, docked (01/31/2021 12:04 PM EDT) POC Glucose 209 (H) 70 - 140 mg/dL [facility] POC Specimen Whole Blood Performing Organization Address City/[facility] P rita Number POINT OF CARE TEST [address] [place] [address] [facility] POC [address] [place] [address] * POCT glucose, docked (01/31/2021 7:51 AM EDT) POC Glucose 246 (H) 70 - 140 mg/dL [facility] POC Specimen Whole Blood Performing Organization Address City/[facility] P rita Number POINT OF CARE TEST [address] [place] [address] [facility] POC [address] [place] [address] * Basic Metabolic Panel (01/31/2021 6:29 AM EDT) Bicarbonate 22 22 - 29 mmol/L [facility] Clin Pathology Chloride 101 98 - 107 mmol/L [facility] Clin Pathology Creatinine 0.50 (L) 0.70 - 1.20 mg/dL [facility] Clin Pathology Glucose 230 (H) 70 - 140 mg/dL [facility] Clin Pathology Potassium 3.8Comment: Hemolyzed 3.4 - 5.1 mmol/L [facility] Sodium 136 136 - 145 mmol/L [facility] Clin Pathology Blood Urea 9 8 - 23 mg/dL [facility] Nitrogen Pending Sale To [facility] Clin Pathology Anion Gap 13 8 - 15 mmol/L [facility] Clin Pathology Osmolality, [place] 288 275.0 - 300.0 [facility] mosm/kg [facility] Pathology BUN/Cre Ratio 17 [facility] Clin Pathology Calcium 8.7 (L) 8.8 - 10.2 mg/dL [facility] Clin Pathology GFR Non >90 >60 mL/min/1.73m2 [facility] e [place] 2009 Med [facility] Clin CDK-EPI Pathology GFR >90 >60 mL/min/1.73m2 [facility] 2008 Med [facility] CKD-EPI Pathology Specimen Plasma Performing Organization Address City/[facility] Code P rita Number [facility] CLINICAL [address] [place], [place] [address] [address] Clin Pathology * Magnesium Level (01/31/2021 6:29 AM EDT) Magnesium 1.9 1.6 - 2.4 mg/dL [facility] Clin Pathology Specimen Plasma Performing Organization Address City/[facility] P rita Number [facility] CLINICAL [address] [place], [place] [address] [address] Clin Pathology * CBC (01/31/2021 6:29 AM EDT) White Blood 5.3 4.00 - 10.00 10*3/uL [facility] ate Cell Pending Sale To [facility] Clin Pathology Red Blood Cell 4.23 (L) 4.60 - 6.10 10*6/uL [facility] Clin Pathology Hemoglobin 13.3 (L) 13.5 - 18.0 g/dL [facility] Clin Pathology Hematocrit 39.6 (L) 41.0 - 53.0 % [facility] Clin Pathology Mean Cell 93.7 80.0 - 96.0 fL [facility] Volume [facility] Clin Pathology Mean Cell 31.5 27.0 - 33.0 pg [facility] Hemoglobin [facility] Clin Pathology Mean Cell Hgb 33.6 32 - 36 g/dL [facility] Clin Pathology Red Cell Dist 12.6 11.5 - 14.5 % [facility] Width Pending Sale To [facility] Clin Pathology Platelet Count 116 (L) 150 - 400 10*3/uL [facility] Clin Pathology Specimen EDTA Whole Blood Performing Organization Address City/[facility]/ZIP Code P rita Number [facility] CLINICAL [address] [place], [place] [address] PATHOLOGY [facility] [address] [place], [place] [address] Clin Pathology * POCT glucose, docked (01/30/2021 9:31 PM EDT) POC Glucose 265 (H) 70 - 140 mg/dL [facility] POC Specimen Whole Blood Performing Organization Address [facility] P rita Number POINT OF CARE TEST [address] [place], [place] [id number] [place] [address] POC [address] [place] [address] * POCT glucose, docked (01/30/2021 4:30 PM EDT) POC Glucose 229 (H) 70 - 140 mg/dL [facility] POC Specimen Whole Blood Performing Organization Address City/[facility]/ZIP [facility] P rita Number POINT OF CARE TEST [address] [place] [address] [facility] POC [address] [place] [address] * POCT glucose, docked (01/30/2021 11:36 AM EDT) POC Glucose 202 (H) 70 - 140 mg/dL [facility] POC Specimen Whole Blood Performing Organization Address [facility]/ZIP [facility] P rita Number POINT OF CARE TEST [address] [place] [address] [facility] POC [address] [place] [address] * Basic Metabolic Panel (01/30/2021 6:05 AM EDT) Bicarbonate 15 (L) 22 - 29 mmol/L [facility] Clin Pathology Chloride 104 98 - 107 mmol/L [facility] Clin Pathology Creatinine 0.56 (L) 0.70 - 1.20 mg/dL [facility] Clin Pathology Glucose 180 (H) 70 - 140 mg/dL [facility] Clin Pathology Potassium 3.3 (L) 3.4 - 5.1 mmol/L [facility] Clin Pathology Sodium 133 (L) 136 - 145 mmol/L [facility] Clin Pathology Blood Urea 10 8 - 23 mg/dL [facility] Nitrogen Pending Sale To [facility] Clin Pathology Anion Gap 14 8 - 15 mmol/L [facility] Clin Pathology Osmolality, [place] 279 275.0 - 300.0 [facility] mosm/kg Pending Sale To [facility] Clin Pathology BUN/Cre Ratio 18 [facility] Clin Pathology Calcium 8.0 (L) 8.8 - 10.2 mg/dL [facility] Clin Pathology GFR Non >90 >60 mL/min/1.73m2 [facility] e [place] 2008 Med Univ Clin CDK-EPI Pathology GFR >90 >60 mL/min/1.73m2 [facility] 2008 Med [facility] Clin CKD-EPI Pathology Specimen Plasma Performing Organization Address City/[facility]/ZIP Code P rita Number [facility] CLINICAL [address] [place], [place] [address] [address] Clin Pathology * Magnesium Level (01/30/2021 6:05 AM EDT) Magnesium 2.1 1.6 - 2.4 mg/dL [facility] Clin Pathology Specimen Plasma Performing Organization Address City/[facility]/ZIP Code P rita Number [facility] CLINICAL [address] [place], [place] [address] [address] Clin Pathology * CBC (01/30/2021 6:05 AM EDT) White Blood 6.4 4.00 - 10.00 10*3/uL [facility] ate Cell Pending Sale To [facility] Clin Pathology Red Blood Cell 3.81 (L) 4.60 - 6.10 10*6/uL [facility] Upsta te Pending Sale To [facility] Clin Pathology Hemoglobin 12.1 (L) 13.5 - 18.0 g/dL [facility] Clin Pathology Hematocrit 35.8 (L) 41.0 - 53.0 % [facility] Clin Pathology Mean Cell 94.1 80.0 - 96.0 fL [facility] Volume [facility] Clin Pathology Mean Cell 31.8 27.0 - 33.0 pg [facility] Hemoglobin [facility] Clin Pathology Mean Cell Hgb 33.8 32 - 36 g/dL [facility] Clin Pathology Red Cell Dist 12.6 11.5 - 14.5 % [facility] Width Pending Sale To [facility] Clin Pathology Platelet Count 112 (L) 150 - 400 10*3/uL [facility] Pathology Specimen EDTA Whole Blood Performing Organization Address [facility] P rita Number [facility] [address] [place], [place] [address] PATHOLOGY [facility] [address] [place], [place] [address] Clin Pathology * POCT glucose, docked (01/29/2021 10:09 PM EDT) POC Glucose 154 (H) 70 - 140 mg/dL [facility] POC Specimen Whole Blood Performing Organization Address [facility] P rita Number POINT OF CARE TEST [address] [place] [address] [facility] POC [address] [place] [address] * Magnesium Level (01/29/2021 6:18 PM EDT) Magnesium 2.6 (H) 1.6 - 2.4 mg/dL [facility] Clin Pathology Specimen Plasma Performing Organization Address City/[facility]/ZIP [facility] P rita Number [facility] [address] [place], [place] [address] [address] Clin Pathology * Potassium (01/29/2021 6:18 PM EDT) Potassium 3.5 3.4 - 5.1 mmol/L [facility] Clin Pathology Specimen Plasma Performing Organization Address City/[facility]/ZIP [facility] P rita Number [facility] [address] [place], [place] [address] PATHOLOGY [facility] [address] [place], [place] [address] Clin Pathology * POCT glucose, docked (01/29/2021 4:07 PM EDT) POC Glucose 213 (H) 70 - 140 mg/dL [facility] POC Specimen Whole Blood Performing Organization Address City/[facility]/ZIP [facility] P rita Number POINT OF CARE TEST [address] [place] [address] [facility] POC [address] [place] [address] * Basic Metabolic Panel (01/29/2021 12:32 PM EDT) Bicarbonate 12 (L) 22 - 29 mmol/L [facility] Clin Pathology Chloride 107 98 - 107 mmol/L [facility] Clin Pathology Creatinine 0.73 0.70 - 1.20 mg/dL [facility] Clin Pathology Glucose 210 (H) 70 - 140 mg/dL [facility] Clin Pathology Potassium 3.4 3.4 - 5.1 mmol/L [facility] Clin Pathology Sodium 139 136 - 145 mmol/L [facility] Clin Pathology Blood Urea 15 8 - 23 mg/dL [facility] Nitrogen Pending Sale To [facility] Clin Pathology Anion Gap 20 (H) 8 - 15 mmol/L [facility] Clin Pathology Osmolality, Kane 295 275.0 - 300.0 [facility] mosm/kg Pending Sale To [facility] Clin Pathology BUN/Cre Ratio 21 [facility] Clin Pathology Calcium 8.2 (L) 8.8 - 10.2 mg/dL [facility] Clin Pathology GFR Non >90 >60 mL/min/1.73m2 [facility] [employer] e [place] 2009 Med Univ Clin CDK-EPI Pathology GFR >90 >60 mL/min/1.73m2 [facility] [place] 2009 Med [facility] Clin CKD-EPI Pathology Specimen Plasma Performing Organization Address City/[facility]/ZIP Code P rita Number [facility] [address] [place], [place] [address] PATHOLOGY [facility] [address] [place], [place] [address] Clin Pathology * POCT glucose, docked (01/29/2021 12:20 PM EDT) POC Glucose 202 (H) 70 - 140 mg/dL [facility] POC Specimen Whole Blood Performing Organization Address [facility] P rita Number POINT OF CARE TEST [address] [place] [address] [facility] POC [address] [place] [address] * POCT glucose, docked (01/29/2021 8:02 AM EDT) POC Glucose 180 (H) 70 - 140 mg/dL [facility] POC Specimen Whole Blood Performing Organization Address [facility] P rita Number POINT OF CARE TEST [address] [place] [address] [facility] POC [address] [place] [address] * Basic Metabolic Panel (01/29/2021 5:48 AM EDT) Bicarbonate 12 (L) 22 - 29 mmol/L [facility] Clin Pathology Chloride 108 (H) 98 - 107 mmol/L [facility] Clin Pathology Creatinine 0.66 (L) 0.70 - 1.20 mg/dL [facility] Clin Pathology Glucose 189 (H) 70 - 140 mg/dL [facility] Clin Pathology Potassium 4.4Comment: Hemolyzed 3.4 - 5.1 mmol/L [facility] Clin Pathology Sodium 137 136 - 145 mmol/L [facility] Clin Pathology Blood Urea 14 8 - 23 mg/dL [facility] Clin Pathology Anion Gap 17 (H) 8 - 15 mmol/L [facility] Clin Pathology Osmolality, [place] 290 275.0 - 300.0 [facility] mosm/kg Pending Sale To [facility] Clin Pathology BUN/Cre Ratio 21 [facility] Clin Pathology Calcium 7.2 (L) 8.8 - 10.2 mg/dL [facility] Clin Pathology GFR Non >90 >60 mL/min/1.73m2 [facility] [employer] [place] 2008 Med Univ Clin CDK-EPI Pathology GFR >90 >60 mL/min/1.73m2 [facility] 2008 Med [facility] Clin CKD-EPI Pathology Specimen Plasma Performing Organization Address [facility] P rita Number [facility] [address] [place], [place] [address] PATHOLOGY [facility] [address] [place], [place] [address] Clin Pathology * Calcium, ionized (01/29/2021 5:48 AM EDT) Calcium 1.08 (L) 1.13 - 1.32 mmol/L [facility] Pending [facility] To [facility] Clin Pathology Specimen Whole Blood Performing Organization Address City/[facility] P rita Number [address] [address] Clin Pathology * Phosphorus Level (01/29/2021 5:48 AM EDT) Phosphorus 3.0 2.5 - 4.5 mg/dL [facility] Clin Pathology Specimen Plasma Performing Organization Address City/[facility] P rita Number [address] [address] Clin Pathology * Magnesium Level (01/29/2021 5:48 AM EDT) Magnesium 1.8 1.6 - 2.4 mg/dL [facility] Clin Pathology Specimen Plasma Performing Organization Address City/[facility] P rita Number [address] [address] Clin Pathology * CBC (01/29/2021 5:48 AM EDT) White Blood 8.9 4.00 - 10.00 10*3/[facility]L [facility] Clin [facility]ology Red Blood Cell 3.40 (L) 4.60 - 6.10 10*6/uL [facility] Clin Pathology Hemoglobin 10.8 (L) 13.5 - 18.0 g/dL [facility] Clin Pathology Hematocrit 32.5 (L) 41.0 - 53.0 % [facility] Clin Pathology Mean Cell 95.7 80.0 - 96.0 fL [facility] Volume [facility] Clin Pathology Mean Cell 31.7 27.0 - 33.0 pg [facility] Hemoglobin [facility] Clin Pathology Mean Cell Hgb 33.1 32 - 36 g/dL [facility] Clin Pathology Red Cell Dist 12.6 11.5 - 14.5 % [facility] Clin Pathology Platelet Count 142 (L) 150 - 400 10*3/uL [facility] Clin Pathology Specimen EDTA Whole Blood Performing Organization Address City/State/ZIP Code P rita Number [facility] [address] [place], [place] 132[address] PATHOLOGY [facility] [address] [place], [place] [address] Clin Pathology * POCT glucose, docked (01/29/2021 3:34 AM EDT) POC Glucose 185 (H) 70 - 140 mg/dL [facility] POC Specimen Whole Blood Performing Organization Address City/State/ZIP Code P rita Number POINT OF CARE TEST [address] [place] [address] [facility] POC [address] [place] [address] * CT Head without Contrast (01/29/2021 2:56 AM EDT) Specimen Impressions Performed At IMPRESSION: [facility] RADIOLOG[facility] 1. No significant change as compared to p rior scan. However, comparison is limited due to extensive motion artifact in german or scan. 2. Stable hemorrhagic contusions in right frontal region and bilateral anterior temporal regions. 3. Stable subtle subdural hemorrhage linda g the right frontal convexity. 4. Layering hemorrhage in the occipital h orns of bilateral lateral ventricles. 5. Additional chronic findings as above. Narrative Performed At INDICATION: R frontal IP. [facility] RADI[facility] TECHNIQUE: Noncontrast CT of the head [facility] axial technique was performed. Automated dose lowering techniques and/ or adjustment according to patient size were utilized for this exam. COMPARISON: CT head dated 01/27/2021 9:2 2 PM. FINDINGS: Evolving hemorrhagic contusion is noted in the right frontal region with surrounding edema. There is redemonstra tion of hemorrhagic contusions in bilateral anterior temporal regions. Stable subtle subdural hemorrhage along the right frontal convexity. Scattered subarachnoid hemorrhage is ag ain noted. Layering hemorrhage is noted in the occ ipital horns of bilateral lateral ventricles. No new hemorrhage is seen. There is redemonstration of area of hyp oattenuation in right periventricular occipital region. Diffuse cerebral atrophy is seen. No midline shift is identified. The bas al cisterns are patent. Paranasal sinuses are clear. Mastoid air cells are clear. Stable appearance of the calvarium. So ft tissue swelling is noted in the posterior scalp. Procedure Note Interface, Received Via [employer] - 01/29/2021 9:35 AM EDT INDICATION: R frontal IPH. TECHNIQUE: Noncontrast CT of the head using axial technique was performed. Automated dose lowering techniques and/or adjustment according to patient size were utilized for this exam. COMPARISON: CT head dated 01/27/2021 9:22 PM. FINDINGS: Evolving hemorrhagic contusion is noted in the right frontal region with surrounding edema. There is redemonstration of hemorrhagic contusions in bilateral anterior temporal regions. Stable subtle subdural hemorrhage along the right frontal convexity. Scattered subarachnoid hemorrhage is again noted. Layering hemorrhage is noted in the occipital horns of bilateral lateral ventricles. No new hemorrhage is seen. There is redemonstration of area of hypoattenuation in right periventricular occipital region. Diffuse cerebral atrophy is seen. No midline shift is identified. The basal cisterns are patent. Paranasal sinuses are clear. Mastoid air cells are clear. Stable appearance of the calvarium. Soft tissue swelling is noted in the posterior scalp. IMPRESSION: 1. No significant change as compared to prior scan. However, comparison is limited due to extensive motion artifact in prior scan. 2. Stable hemorrhagic contusions in rig ht frontal region and bilateral anterior temporal regions. 3. Stable subtle subdural hemorrhage al [place] the right frontal convexity. 4. Layering hemorrhage in the occipital horns of bilateral lateral ventricles. 5. Additional chronic findings as above . Performing Organization Address City/State/ZIP Code P rita Number [facility] RADI[facility] [address] [place] [address] * Basic Metabolic Panel (01/29/2021 1:35 AM EDT) Bicarbonate 14 (L) 22 - 29 mmol/L [facility] Clin Pathology Chloride 105Comment: Confirmed 98 - 107 mmol/L [facility] Clin Pathology Creatinine 0.73 0.70 - 1.20 mg/dL [facility] Clin Pathology Glucose 193 (H) 70 - 140 mg/dL [facility] Clin Pathology Potassium 3.5 3.4 - 5.1 mmol/L [facility] Comment: Med Univ Clin Hemolyzed Pathology Confirmed Sodium 138Comment: Confirmed 136 - 145 mmol/L [facility] U pstate [facility] Clin Pathology Blood Urea 15 8 - 23 mg/dL [facility] Nitrogen [facility] Clin Pathology Anion Gap 19 (H)Comment: Confirmed 8 - 15 mmol/L [facility] Clin Pathology Osmolality, Kane 292Comment: Confirmed 275.0 - 300.0 [facility] state mosm/kg [facility] Clin Pathology BUN/Cre Ratio 21 [facility] Clin Pathology Calcium 8.0 (L) 8.8 - 10.2 mg/dL [facility] Clin Pathology GFR Non >90 >60 mL/min/1.73m2 [facility] e [place] 2008 Med Univ Clin CDK-EPI Pathology GFR >90 >60 mL/min/1.73m2 [facility] 2008 [facility] CKD-EPI Pathology Specimen Plasma Performing Organization Address City/State/ZIP Code P rita Number [facility] CL[facility] [address] [place], [place] [address] PATHOLOGY [facility] [address] [place], [place] [address] Clin Pathology * Basic Metabolic Panel (01/28/2021 11:43 PM EDT) Bicarbonate 12 (L) 22 - 29 mmol/L [facility] Clin Pathology Chloride 123 (H)Comment: Confirmed 98 - 107 mmol/L [facility] Clin Pathology Creatinine 0.52 (L) 0.70 - 1.20 mg/dL [facility] Clin Pathology Glucose 178 (H) 70 - 140 mg/dL [facility] Clin Pathology Potassium 3.2 (L) 3.4 - 5.1 mmol/L [facility] Comment: Med Univ Clin Hemolyzed Pathology Confirmed Sodium 150 (H)Comment: Confirmed 136 - 145 mmol/L [facility] Clin Pathology Blood Urea 13 8 - 23 mg/dL [facility] Nitrogen [facility] Clin Pathology Anion Gap 15Comment: Confirmed 8 - 15 mmol/L [facility] Clin Pathology Osmolality, Kane 315 (H)Comment: Confirmed 275.0 - 300.0 [facility] mosm/kg [facility] Clin Pathology BUN/Cre Ratio 26 [facility] Clin Pathology Calcium 7.0 (L) 8.8 - 10.2 mg/dL [facility] Clin Pathology GFR Non >90 >60 mL/min/1.73m2 [facility] [place] [facility] Pending [facility] To [facility] Clin CDK-EPI Pathology GFR >90 >60 mL/min/1.73m2 [facility] 2008 [facility] CKD-EPI Pathology Specimen Plasma Performing Organization Address City/[facility]/ZIP Code P rita Number [facility] CL[facility] [address] [place], [place] [address] PATHOLOGY [facility] [address] [place], [place] [address] Clin Pathology * POCT glucose, docked (01/28/2021 11:14 PM EDT) POC Glucose 193 (H) 70 - 140 mg/dL [facility] POC Specimen Whole Blood Performing Organization Address City/[facility]/ZIP [facility] P rita Number POINT OF CARE TEST [address] [place] [address] [facility] POC [address] [place] [address] * POCT glucose, docked (01/28/2021 8:23 PM EDT) POC Glucose 224 (H) 70 - 140 mg/dL [facility] POC Specimen Whole Blood Performing Organization Address City/[facility] P rita Number POINT OF CARE TEST [address] [place] [address] [facility] POC [address] [place] [address] * Basic Metabolic Panel (01/28/2021 6:52 PM EDT) Bicarbonate 12 (L) 22 - 29 mmol/L [facility] Clin Pathology Chloride 104 98 - 107 mmol/L [facility] Clin Pathology Creatinine 0.72 0.70 - 1.20 mg/dL [facility] Clin Pathology Glucose 237 (H) 70 - 140 mg/dL [facility] Clin Pathology Potassium 3.6 3.4 - 5.1 mmol/L [facility] Clin Pathology Sodium 136 136 - 145 mmol/L [facility] Clin Pathology Blood Urea 15 8 - 23 mg/dL [facility] Clin Pathology Anion Gap 20 (H) 8 - 15 mmol/L [facility] Clin Pathology Osmolality, [place] 290 275.0 - 300.0 [facility] mosm/kg Pending Sale To [facility] Clin Pathology BUN/Cre Ratio 20 [facility] Clin Pathology Calcium 8.6 (L) 8.8 - 10.2 mg/dL [facility] Clin Pathology GFR Non >90 >60 mL/min/1.73m2 [facility] 2008 Med [facility] CDK-EPI Pathology GFR >90 >60 mL/min/1.73m2 [facility] 2008 [facility] CKD-EPI Pathology Specimen Plasma Performing Organization Address City/[facility] P rita Number [facility] [address] [place], [place] [address] PATHOLOGY [facility] [address] [place], [place] [address] Clin Pathology * POCT glucose, docked (01/28/2021 3:26 PM EDT) POC Glucose 213 (H) 70 - 140 mg/dL [facility] POC Specimen Whole Blood Performing Organization Address [facility] P rita Number POINT OF CARE TEST [address] [place] [address] [facility] POC [address] [place] [address] * Basic Metabolic Panel (01/28/2021 1:19 PM EDT) [facility] Bicarbonate 11 (L) 22 - 29 mmol/L [facility] Clin Pathology Chloride 104 98 - 107 mmol/L [facility] Clin Pathology Creatinine 0.68 (L) 0.70 - 1.20 mg/dL [facility] Clin Pathology Glucose 247 (H) 70 - 140 mg/dL [facility] Clin Pathology Potassium 3.9 3.4 - 5.1 mmol/L [facility] Clin Pathology Sodium 139 136 - 145 mmol/L [facility] Clin Pathology Blood Urea 15 8 - 23 mg/dL [facility] Nitrogen Pending Sale To [facility] Clin Pathology Anion Gap 24 (H) 8 - 15 mmol/L [facility] Clin Pathology Osmolality, [place] 297 275.0 - 300.0 [facility] mosm/kg Pending Sale To [facility] Clin Pathology BUN/Cre Ratio 22 [facility] Clin Pathology Calcium 8.6 (L) 8.8 - 10.2 mg/dL [facility] Clin Pathology GFR Non >90 >60 mL/min/1.73m2 [facility] 2008 Med [facility] Clin CDK-EPI Pathology GFR >90 >60 mL/min/1.73m2 [facility] 2008 Pending Sale To [facility] Clin CKD-EPI Pathology Specimen Plasma Performing Organization Address City/State/ZIP Code P rita Number [facility] CL[facility] [address] [place], [place] [address] PATHOLOGY [facility] [address] [place], [place] [address] Clin Pathology * POCT glucose, docked (01/28/2021 12:47 PM EDT) POC Glucose 223 (H) 70 - 140 mg/dL [facility] POC Specimen Whole Blood Performing Organization Address City/[facility] P rita Number POINT OF CARE TEST [address] [place] [address] [facility] POC [address] [place] [address] * EEG Routine Study (01/28/2021 10:39 AM EDT) Narrative Performed At Elizabeth Hou MD EXTERNAL NON-INTERFACED LAB 01/28/2021 9:58 PM EEG REPORT NUMBER [id number] DATE OF PROCEDURE: 01/28/2021 HISTORY: The patient is a 60 y.o. male with a hi story of multiple falls with right frontal ICH, Right temporal subdural hemorrhage, and small right frontal SAH found on subseq uent imaging. No current facility-administered medica tions on file prior to encounter. Current Outpatient Medications on File Prior to Encounter Medication Sig Dispense Refill ALBUTEROL IN Inhale 2 Inhalers into t he lungs every 4 (four) hours as needed. aspirin 81 MG tablet Take 81 mg by ks ut daily. atorvastatin (LIPITOR) 10 MG tablet T alicia 10 mg by mouth daily. celecoxib (CELEBREX) 200 MG capsule T ALICIA ONE CAPSULE BY MOUTH EVERY DAY WITH FOOD 0 cyclobenzaprine (FLEXERIL) 10 MG tabl et Take 10 mg by mouth Three times daily as needed for Muscle spasms Diclofenac Sodium 1 % External Gel (V OLTAREN) APPLY TO RIGHT HAND THREE TIMES A DAY NEEDED DULoxetine (CYMBALTA) 60 MG capsule T alicia 60 mg by mouth daily. Fluticasone-Salmeterol (ADVAIR DISKUS ) 250-50 MCG/DOSE AEPB Inhale 1 puff into the lungs Two Times Daily. gabapentin (NEURONTIN) 400 MG capsule TAKE ONE CAPSULE BY MOUTH THREE TIMES A DAY 1 Gabapentin 600 MG Oral Tablet (NEURON TIN) TAKE ONE TABLET BY MOUTH THREE TIMES A DAY MAXIMUM DAILY D OSE 3 HYDROcodone-Acetaminophen 10-325 MG O ral Tablet (VICODIN) TAKE ONE TABLET BY MOUTH FOUR TIMES A DAY NEEDED MAXIMUM DAILY DOSE 4 insulin glargine (LANTUS) 100 UNIT/ML injection Inject 15 Units into the skin Two times daily as needed insulin lispro (HUMALOG) 100 UNIT/ML injection Inject into the skin Three times daily before meals Lidocaine Pain Relief 4 % External Pa tch USE DIRECTED DAILY meclizine (ANTIVERT) 25 MG tablet Brian e 25 mg by mouth daily as needed 3 Metoclopramide HCl 5 MG Oral Tablet ( REGLAN) TAKE ONE TABLET BY MOUTH THREE TIMES A DAY 1 HOUR PRIOR TO MEALS Prochlorperazine Maleate 10 MG Oral T ablet (COMPAZINE) Take 10 mg by mouth every 6 (six) hours as need ed ROZEREM 8 MG tablet Take 8 mg by mout h nightly as needed 4 silver sulfADIAZINE (SILVADENE) 1 % c ream Apply topically daily 50 g 2 Simethicone 180 MG CAPS Take 180 mg b y mouth Three times daily with meals 90 each 3 tamsulosin HCl (FLOMAX) 0.4 MG CAPS T alicia 0.4 mg by mouth daily. VOLTAREN 1 % GEL APPLY TO THE RIGHT H AND THREE TIMES A DAY NEEDED 1 Scheduled Meds: folic acid 1 mg Oral Daily insulin lispro 1-12 Units Subcutaneous Q4H levETIRAcetam 500 mg Intravenous Q12H lidocaine 1 patch Transdermal Daily magnesium hydroxide 45 mL Oral Nightly multivitamin 1 tablet Oral Daily pantoprozole 40 mg Intravenous Daily piperacillin-tazobactam 3.375 g Intravenous Q8H thiamine 100 mg Oral Daily Continuous Infusions: dexmedetomidine 0.7 mcg/kg/hr ( 1021) sodium chloride 75 mL/hr at 01/28/21 0700 niCARdipine Stopped (01/27/21 2250) sodium chloride 30 mL/hr (01/28/21 10 19) PRN Meds:.acetaminophen, albuterol, bis acodyl, calcium gluconate, dextrose, glucagon (human recombinant), glucose, hydrALAZINE, HYDROcodone-acetaminophen, labetalol, m agnesium sulfate, ondansetron, potassium chloride OR potassium chloride, potassium phosphate OR potassium ph osphate, prochlorperazine OR prochlorperazine OR prochlor perazine, senna, senna, sodium phosphate OR sodium phosphat e TECHNICAL DESCRIPTION: This digital EEG was recorded using 2 E KG and 21 scalp and/or ear electrodes. It was reviewed in referential and bip olar montages following reformatting in the 10-20 Int ernational electrode placement system. EEG INTERPRETATION: Background in the most stimulated state consists of 15-30 microvolt, 6 - 7 Hz poorly sustained po sterior dominant rhythm (PDR) in the left side but not in the r ight. There is generalized slowing with diffuse delta activity is noted throughout the recording and continuous focal slowing and mild attenuation in the right hemisphere. Drowsiness/Sleep [] The patient remains only in the awak e state throughout the study. [] The patient is intubated, comatose a nd unresponsive during the recording. [] The patient is not intubated, but co matose and unresponsive during the recording. [x] The patient is stuporous throughout the recording. [] During drowsiness, there is increase d emergence of theta and delta rhythms, but full sleep is not ac hieved during this recording. [] During drowsiness, there is increase d emergence of theta and delta rhythms, and during sleep the fol lowing sleep structures were seen: [] Vertex sharp transients [] Symmetric sleep spindles [] POSTs [] K-complexes [] Other: Photic stimulation Photic stimulation with flash frequenci es of 2-21 Hz is not associated with posterior photic drivin g. No photoparoxysmal response was seen. 2-lead EKG showed normal sinus rhythm i n the 70s. IMPRESSION: This routine EEG done in th e stuporous state is abnormal due to : 1. Generalized slowing. 2. Slow PDR. 3. Continuous focal slowing with attenu ation in the right hemispheria. The above finding is suggestive of a mi ld-moderate diffuse encephalopathy with the right hemispher ic slowing and attenuation related to the underlying structural le aislinn. Chastity Hill MD Clinical Neurophysiology Fellow I, Elizabeth Hou MD, certify that I r eviewed this EEG with the fellow, and edited and agree with the pratik schaeffer documented findings and interpretation. Performing Organization Address City/State/ZIP Code P rita Number EXTERNAL NON-INTERFACED LAB * Urinalysis with microscopic (01/28/2021 10:16 AM EDT) Color Yellow [facility] Clin Pathology Clarity Clear [facility] Clin Pathology Specific 1.017 1.003 - 1.030 [facility] Clin Pathology PH Urine 6.0 5.0 - 8.0 [facility] Pathology Total Protein 100 (A) Negative mg/dL [facility] Clin Pathology Glucose UA >500 (A) Negative mg/dL [facility] Clin Pathology Ketone Urine 80 (A) Negative mg/dL [facility] Clin Pathology Bilirubin Negative Negative [facility] Pathology Hemoglobin, 2+ (A) Negative [facility] Urine [facility] Clin Pathology Leukocyte Negative Negative Cami/uL [facility] Esterase [facility] Clin Pathology Nitrite Negative Negative [facility] Clin Pathology WBC <1 0 - 5 /HPF [facility] Pathology RBC 5 (H) 0 - 3 /HPF [facility] Pathology Squam Epithel, <1 (A) None /HPF [facility] Clin Pathology Mucus, UA Trace (A) None /LPF [facility] Pathology Specimen Urine Performing Organization Address City/State/ZIP Code P rita Number [facility] [address] [place], [place] [address] PATHOLOGY [facility] [address] [place], [place] [address] Clin Pathology * Staph Aureus MRSA PCR (01/28/2021 10:16 AM EDT) Special Request None [facility] PATHOLOGY Culture/Results Polymerase chain reaction [facility] assay was NEGATIVE for both [facility] methicillin-resistant Pathology Staphylococcus aureus (MRSA) and methicillin-susceptible Staphylococcus aureus (MSSA) Specimen Nasal Swab Performing Organization Address City/State/ZIP Code P rita Number [facility] [address] [place], [place] 1321 PATHOLOGY [facility] [address] [place], [place] [address] Clin Pathology * XR Chest Frontal Only (01/28/2021 9:43 AM EDT) Specimen Impressions Performed At IMPRESSION: [facility] Enteric tube in appropriate position. Narrative Performed At [facility] INDICATION: Nasogastric tube placement TECHNIQUE: Portable frontal AP chest ra diograph. COMPARISON: Chest radiograph dated 01/27 FINDINGS: Enteric tube visualized with distal tip and side-port overlying the left upper quadrant. The cardiomediastinal contours are stab le. There is no pleural effusion. There is no pneumothorax. The lungs are clear. Visualized abdomen is without free air. Procedure Note Interface, Received Via [employer] - 01/28/2021 2:44 PM EDT INDICATION: Nasogastric tube placement TECHNIQUE: Portable frontal AP chest radiograph. COMPARISON: Chest radiograph dated 01/27/2021 FINDINGS: Enteric tube visualized with distal tip and side-port overlying the left upper quadrant. The cardiomediastinal contours are stable. There is no pleural effusion. There is no pneumothorax. The lungs are clear. Visualized abdomen is without free air. IMPRESSION: Enteric tube in appropriate position. Performing Organization Address City/State/ZIP Code P rita Number [facility] [address] [place] [address] * POCT glucose, docked (01/28/2021 8:35 AM EDT) POC Glucose 236 (H) 70 - 140 mg/dL [facility] POC Specimen Whole Blood Performing Organization Address City/State/ZIP Code P rita Number POINT OF CARE TEST [address] [place], [place] [id number] [place] [address] POC [address] [place] [address] * Basic Metabolic Panel (01/28/2021 5:49 AM EDT) Bicarbonate 18 (L) 22 - 29 mmol/L [facility] Clin Pathology Chloride 103 98 - 107 mmol/L [facility] Clin Pathology Creatinine 0.73 0.70 - 1.20 mg/dL [facility] Clin Pathology Glucose 225 (H) 70 - 140 mg/dL [facility] Clin Pathology Potassium 3.9 3.4 - 5.1 mmol/L [facility] Clin Pathology Sodium 139 136 - 145 mmol/L [facility] Clin Pathology Blood Urea 12 8 - 23 mg/dL [facility] Clin Pathology Anion Gap 18 (H) 8 - 15 mmol/L [facility] Clin Pathology Osmolality, Kane 295 275.0 - 300.0 [facility] mosm/kg Pending Sale To [facility] Clin Pathology BUN/Cre Ratio 16 [facility] Clin Pathology Calcium 8.9 8.8 - 10.2 mg/dL [facility] Clin Pathology GFR Non >90 >60 mL/min/1.73m2 [facility] [place] 2008 [facility] Clin CDK-EPI Pathology GFR >90 >60 mL/min/1.73m2 [facility] 2008 [facility] Clin CKD-EPI Pathology Specimen Plasma Performing Organization Address [facility] P rita Number [address] [address] Clin Pathology * Calcium, ionized (01/28/2021 5:49 AM EDT) Calcium 1.18 1.13 - 1.32 mmol/L [facility] Ionized,W.B. Pending Sale To [facility] Clin Pathology Specimen Whole Blood Performing Organization Address [facility] P rita Number [address] [address] Clin Pathology * Phosphorus Level (01/28/2021 5:49 AM EDT) Phosphorus 2.7 2.5 - 4.5 mg/dL [facility] Clin Pathology Specimen Plasma Performing Organization Address [facility] P rita Number [address] [address] Clin Pathology * Magnesium Level (01/28/2021 5:49 AM EDT) Magnesium 2.1 1.6 - 2.4 mg/dL [facility] Clin Pathology Specimen Plasma Performing Organization Address [facility] P rita Number [address] [address] Clin Pathology * CBC (01/28/2021 5:49 AM EDT) White Blood 10.3 (H) 4.00 - 10.00 10*[facility] Red Blood Cell 4.21 (L) 4.60 - 6.10 10*6/uL [facility] Clin Pathology Hemoglobin 13.6 13.5 - 18.0 g/dL [facility] Clin Pathology Hematocrit 41.0 41.0 - 53.0 % [facility] Clin Pathology Mean Cell 97.3 (H) 80.0 - 96.0 fL [facility] Volume Pending Sale To [facility] Clin Pathology Mean Cell 32.3 27.0 - 33.0 pg [facility] Hemoglobin Pending Sale To [facility] Clin Pathology Mean Cell Hgb 33.2 32 - 36 g/dL [facility] Clin Pathology Red Cell Dist 12.6 11.5 - 14.5 % [facility] Width Pending Sale To [facility] Clin Pathology Platelet Count 167 150 - 400 10*3/uL [facility] Pathology Specimen EDTA Whole Blood Performing Organization Address [facility] P rita Number [facility] CL[facility] [address] [place], [place] [address] PATHOLOGY [facility] [address] [place], [place] [address] Clin Pathology * POCT glucose, docked (01/28/2021 4:09 AM EDT) POC Glucose 178 (H) 70 - 140 mg/dL [facility] POC Specimen Whole Blood Performing Organization Address City/[facility] P rita Number POINT OF CARE TEST [address] [place] [address] [facility] POC [address] [place] [address] * Basic Metabolic Panel (01/28/2021 12:58 AM EDT) Bicarbonate 18 (L) 22 - 29 mmol/L [facility] Clin Pathology Chloride 102 98 - 107 mmol/L [facility] Clin Pathology Creatinine 0.74 0.70 - 1.20 mg/dL [facility] Clin Pathology Glucose 257 (H) 70 - 140 mg/dL [facility] Clin Pathology Potassium 3.9 3.4 - 5.1 mmol/L [facility] Clin Pathology Sodium 137 136 - 145 mmol/L [facility] Clin Pathology Blood Urea 12 8 - 23 mg/dL [facility] Clin Pathology Anion Gap 17 (H) 8 - 15 mmol/L [facility] Clin Pathology Osmolality, [place] 293 275.0 - 300.0 [facility] mosm/kg Pending Sale To [facility] Clin Pathology BUN/Cre Ratio 17 [facility] Clin Pathology Calcium 8.9 8.8 - 10.2 mg/dL [facility] Clin Pathology GFR Non >90 >60 mL/min/1.73m2 [facility] Clin CDK-EPI Pathology GFR >90 >60 mL/min/1.73m2 [facility] 2008 [facility] CKD-EPI Pathology Specimen Plasma Performing Organization Address [facility] P rita Number [facility] [address] [place], [place] [address] PATHOLOGY [facility] [address] [place], [place] [address] Clin Pathology * POCT glucose, docked (01/28/2021 12:14 AM EDT) POC Glucose 270 (H) 70 - 140 mg/dL [facility] POC Specimen Whole Blood Performing Organization Address [facility] P rita Number POINT OF CARE TEST [address] [place] [address] [facility] POC [address] [place] [address] * CT Head without Contrast (01/27/2021 9:37 PM EDT) Specimen Narrative Performed At PROCEDURE INFORMATION: [facility] Exam: CT Head Without Contrast Exam date and time: 01/27/2021 9:22 PM Age: 60 years old Clinical indication: Traumatic subarach noid hemorrhage with loss of consciousness of 30 minutes or less, in itial encounter; Other: Worsening R frontal bleed TECHNIQUE: Imaging protocol: Computed tomography o f the head without contrast. Radiation optimization: All CT scans at this facility use at least one of these dose optimization techniques: automated exposure control; mA and/or kV adjustment per patient size (includes t argeted exams where dose is matched to clinical indication); or iterative jono nstruction. COMPARISON: CT HEAD WITHOUT CONTRAST [id number] 2:07 PM FINDINGS: Brain: There is distorted by motion how ever grossly stable large right frontal intraparenchymal hemorrhage with surrou nding edema. Stable smaller intraparenchymal hemorrhage within the right temporal lobe. Adjacent small right temporal subdural hemorrhage is s table, distorted significantly by motion. Stable small left temporal pilar on subdural hemorrhage also distorted by motion with adjacent small stable anter ior inferior left temporal lobe contusion. 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 Stable small subdural hemorrhage overly ing the inferior right frontal lobe. Stable very small amount of right front al subarachnoid hemorrhage. There is diffuse cerebral atrophy. Stable sulcal effacement mostly right f rontal region. No appreciable midline shift. Cerebral ventricles: No ventriculomegal y. Paranasal sinuses: Visualized sinuses a re unremarkable. No fluid levels. Mastoid air cells: Visualized mastoid a ir cells are well aerated. Bones/joints: Stable nondisplaced/nondepressed left parietal bone fracture. Soft tissues: Stable mild posterior scalp soft tissu e swelling. Other findings: this study is moderatel y limited by motion. IMPRESSION: Study is significantly limited by motio n however grossly the right frontal and bilateral temporal lobe hemorrhages are stable with adjacent small subdural hemorrhage as discussed above. THIS DOCUMENT HAS BEEN ELECTRONICALLY S IGNED BY MAXINE MELGAR MD Procedure Note Interface, Received Via [employer] - 01/27/2021 9:53 PM EDT PROCEDURE INFORMATION: Exam: CT Head Without Contrast Exam date and time: 01/27/2021 9:22 PM Age: 60 years old Clinical indication: Traumatic subarachnoid hemorrhage with loss of consciousness of 30 minutes or less, initial encounter; Other: Worsening R frontal bleed TECHNIQUE: Imaging protocol: Computed tomography of the head without contrast. Radiation optimization: All CT scans at this facility use at least one of these dose optimization techniques: automated exposure control; mA and/or kV adjustment per patient size (includes targeted exams where dose is matched to clinical indication); or iterative reconstruction. COMPARISON: CT HEAD WITHOUT CONTRAST [id number] 01/27/2021 2:07 PM FINDINGS: Brain: There is distorted by motion however grossly stable large right frontal intraparenchymal hemorrhage with surrounding edema. Stable smaller intraparenchymal hemorrhage within the right temporal lobe. Adjacent small right temporal subdural hemorrhage is stable, distorted significantly by motion. Stable small left temporal region subdural hemorrhage also distorted by motion with adjacent small stable anterior inferior left temporal lobe contusion. 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 Stable small subdural hemorrhage overlying the inferior right frontal lobe. Stable very small amount of right frontal subarachnoid hemorrhage. There is diffuse cerebral atrophy. Stable sulcal effacement mostly right frontal region. No appreciable midline shift. Cerebral ventricles: No ventriculomegaly. Paranasal sinuses: Visualized sinuses are unremarkable. No fluid levels. Mastoid air cells: Visualized mastoid air cells are well aerated. Bones/joints: Stable nondisplaced/nondepressed left parietal bone fracture. Soft tissues: Stable mild posterior scalp soft tissue swelling. Other findings: this study is moderately limited by motion. IMPRESSION: Study is significantly limited by motion however grossly the right frontal and bilateral temporal lobe hemorrhages are stable with adjacent small subdural hemorrhage as discussed above. THIS DOCUMENT HAS BEEN ELECTRONICALLY SIGNED BY MAXINE MELGAR MD Performing Organization Address City/[facility]/ZIP Code P rita Number [facility] [address] [place] [address] * POCT glucose, docked (01/27/2021 8:10 PM EDT) POC Glucose 282 (H) 70 - 140 mg/dL [facility] POC Specimen Whole Blood Performing Organization Address City/[facility] P rita Number POINT OF CARE TEST [address] POC [address] [place] [address] * POCT glucose, docked (01/27/2021 4:30 PM EDT) POC Glucose 310 (H) 70 - 140 mg/dL [facility] POC Specimen Whole Blood Performing Organization Address [facility] P rita Number POINT OF CARE TEST [address] POC [address] [place] [address] * Basic Metabolic Panel (01/27/2021 3:57 PM EDT) Bicarbonate 15 (L) 22 - 29 mmol/L [facility] Clin Pathology Chloride 96 (L) 98 - 107 mmol/L [facility] Pathology Creatinine 0.65 (L) 0.70 - 1.20 mg/dL [facility] Pathology Glucose 337 (H) 70 - 140 mg/dL [facility] Pathology Potassium 4.5 3.4 - 5.1 mmol/L [facility] Pathology Sodium 134 (L) 136 - 145 mmol/L [facility] Pathology Blood Urea 10 8 - 23 mg/dL [facility] Nitrogen Pending Sale To [facility] Clin Pathology Anion Gap 23 (H) 8 - 15 mmol/L [facility] Clin Pathology Osmolality, [place] 290 275.0 - 300.0 [facility] mosm/kg Pending Sale To [facility] Clin Pathology BUN/Cre Ratio 15 [facility] Clin Pathology Calcium 8.6 (L) 8.8 - 10.2 mg/dL [facility] Pathology GFR Non >90 >60 mL/min/1.73m2 [facility] [place] [facility] Clin CDK-EPI Pathology GFR >90 >60 mL/min/1.73m2 [facility] 2008 [facility] CKD-EPI Pathology Specimen Plasma Performing Organization Address City/State/ZIP Code P rita Number [facility] [address] [place], [place] [address] PATHOLOGY [facility] [address] [place], [place] [address] Clin Pathology * CT Head without Contrast (01/27/2021 2:21 PM EDT) Specimen Impressions Performed At IMPRESSION: [facility] 1. There is slight interval increase in t he hemorrhagic contusion in the right frontal lobe. Hemorrhagic contusions in the bilateral temporal horns are unchanged. 2. There is an evolving hypodensity in t he right occipital lobe. Narrative Performed At INDICATION: follow up CT head stability [facility] TECHNIQUE: Contiguous axial CT images o f the head from the base of the skull to the vertex without IV contrast. Automat ed dose lowering techniques and/or adjustment according to patient size we re utilized for this exam. COMPARISON: CT head from 01/27/2021 8:39 AM. FINDINGS: Study is limited by motion ar tifact. Slight interval increase in the hemorrh agic contusion in the right frontal lobe. S table hemorrhagic contusions in bilater al temporal lobes. Stable subarachnoid hemorrhage in bilat eral cerebral hemispheres. Evolving hypodensity in the right occip ital lobe. Chronic appearing lacunar infarct in th e right thalamus. No evidence of mass effect. Generalized atrophy with commensurate e nlargement of the ventricular system. The basal cisterns are patent. Periventricular and subcortical nonspec ific white matter hypoattenuation is most likely attributed to small vessel ische diego disease. Mild thickening of the left maxillary s inus. Mastoid air cells are clear. Nondisplaced left parietal bone fractur e . Procedure Note Interface, Received Via [employer] System - 01/27/2021 8:14 PM EDT INDICATION: follow up CT head stability TECHNIQUE: Contiguous axial CT images of the head from the base of the skull to the vertex without IV contrast. Automated dose lowering techniques and/or adjustment according to patient size were utilized for this exam. COMPARISON: CT head from 01/27/2021 8:39 AM. FINDINGS: Study is limited by motion artifact. Slight interval increase in the hemorrhagic contusion in the right frontal lobe. Stable hemorrhagic contusions in bilateral temporal lobes. Stable subarachnoid hemorrhage in bilateral cerebral hemispheres. Evolving hypodensity in the right occipital lobe. Chronic appearing lacunar infarct in the right thalamus. No evidence of mass effect. Generalized atrophy with commensurate enlargement of the ventricular system. The basal cisterns are patent. Periventricular and subcortical nonspecific white matter hypoattenuation is most likely attributed to small vessel ischemic disease. Mild thickening of the left maxillary sinus. Mastoid air cells are clear. Nondisplaced left parietal bone fracture . IMPRESSION: 1. There is slight interval increase in the hemorrhagic contusion in the right frontal lobe. Hemorrhagic contusions in the bilateral temporal horns are unchanged. 2. There is an evolving hypodensity in the right occipital lobe. Performing Organization Address City/State/ZIP Code P rita Number [facility] [address] [place] [address] * XR Hand 2 Views Right (01/27/2021 12:15 PM EDT) Specimen Impressions Performed At Impression: [facility] Chronic arthritic/degenerative changes visualized, with no acute osseous or soft tissue findings. Narrative Performed At [facility] INDICATION: Redness of hand. TECHNIQUE: AP and lateral views of the right hand were obtained. COMPARISON: None available. FINDINGS: Vascular calcifications are seen throug hout the soft tissues of the right hand. Vascular calcifications are also seen i n the right wrist and adjacent to the medial aspect of the ulnar bone bone. O sseous structures of the right hand and wrist are in anatomic alignment. There are no fractures or dislocations present. There is significant arthrosis of the i ntercarpal bones, PIP and DIP joints. There is also significant arthrosis of the first MCP joint. There are no acute pathological findings. Procedure Note Interface, Received Via [employer] - 01/27/2021 12:33 PM EDT INDICATION: Redness of hand. TECHNIQUE: AP and lateral views of the right hand were obtained. COMPARISON: None available. FINDINGS: Vascular calcifications are seen throughout the soft tissues of the right hand. Vascular calcifications are also seen in the right wrist and adjacent to the medial aspect of the ulnar bone bone. Osseous structures of the right hand and wrist are in anatomic alignment. There are no fractures or dislocations present. There is significant arthrosis of the intercarpal bones, PIP and DIP joints. There is also significant arthrosis of the first MCP joint. There are no acute pathological findings. Impression: Chronic arthritic/degenerative changes visualized, with no acute osseous or soft tissue findings. Performing Organization Address City/[facility] Code P rita Number [facility] [address] [place] [address] * POCT glucose, docked (01/27/2021 12:05 PM EDT) POC Glucose 260 (H) 70 - 140 mg/dL [facility] POC Specimen Whole Blood Performing Organization Address City/[facility] P rita Number POINT OF CARE TEST [address] [place], [place] [address] [place] [address] POC [address] [place] [address] * Drugs Of Abuse, Urine (01/27/2021 12:02 PM EDT) Amphetamine Negative Negative Cutoff 1000 [facility] Benzodiazepine Negative Negative Cutoff 300 [facility] Cannabinoids Negative Negative Cutoff 50 [facility] Cocaine Negative Negative Cutoff 300 [facility] Methadone Negative Negative Cutoff 300 [facility] ([facility]ol[facility] Pathology Opiates Positive (A) Negative Cutoff 300 [facility] Comment: [facility] (NOTE) Pathology Positive results are presumptive and unconfirmed;confirmatory testing can be ordered at the [facility] at [phone] or [facility] at [phone] within 5 days of collection. Oxycodone Negative Negative Cutoff 100 [facility] Pathology Fentanyl Negative Negative Cutoff 1 [facility] Pathology Drug (NOTE) [facility] Interpretation Comment: [facility] Results below the indicated Pathology cutoff (ng/mL), are reported as "Negative." Note: for medical purposes only; not valid for legal or employment testing. Specimen Urine Performing Organization Address City/[facility] Code P rita Number [facility] [address] [place], [place] [address] [address] Clin Pathology * Urinalysis with microscopic (01/27/2021 12:02 PM EDT) Color Yellow [facility] Clin Pathology Clarity Clear [facility] Clin Pathology Specific 1.017 1.003 - 1.030 [facility] Clin Pathology PH Urine 5.0 5.0 - 8.0 [facility] Pathology Total Protein 100 (A) Negative mg/dL [facility] Pathology Glucose UA >500 (A) Negative mg/dL [facility] Pathology Ketone Urine 5 (A) Negative mg/dL [facility] Clin Pathology Bilirubin Negative Negative [facility] Pathology Hemoglobin, 2+ (A) Negative [facility] Urine [facility] Clin Pathology Leukocyte Negative Negative Cami/uL [facility] Esterase [facility] [facility] Nitrite Negative Negative [facility] Pathology WBC 1 0 - 5 /HPF [facility] Pathology RBC <1 0 - 3 /HPF [facility] Clin Pathology Squam Epithel, <1 (A) None /HPF [facility] Pathology Mucus, UA Trace (A) None /LPF [facility] Clin Pathology Hyaline Cast 5 (A) None /LPF [facility] Clin Pathology Specimen Urine Performing Organization Address City/[facility]/ZIP Code P rita Number [facility] [address] [place], [place] 1321 PATHOLOGY [facility] [address] [place] [address] 132 10 Clin Pathology * XR Chest Frontal Only (01/27/2021 11:57 AM EDT) Specimen Impressions Performed At IMPRESSION: [facility] No acute abnormalities. Narrative Performed At [facility] INDICATION: Status post trauma. TECHNIQUE: A portable frontal view of the chest w as obtained in the 75 degrees erect position. COMPARISON: None available. FINDINGS: Cardiac leads seen overlying patient radha dy. Lungs are clear bilaterally. No pneumothorax/pleural effusion. Cardiomediastinal silhouette within nor mal limits. Osseous structures are grossly intact. Procedure Note Interface, Received Via [employer] - 01/27/2021 12:32 PM EDT INDICATION: Status post trauma. TECHNIQUE: A portable frontal view of the chest was obtained in the 75 degrees erect position. COMPARISON: None available. FINDINGS: Cardiac leads seen overlying patient body. Lungs are clear bilaterally. No pneumothorax/pleural effusion. Cardiomediastinal silhouette within normal limits. Osseous structures are grossly intact. IMPRESSION: No acute abnormalities. Performing Organization Address City/State/ZIP Code P rita Number [facility] [address] [place] [address] * EKG 12-LEAD - CMAXX REPORT (01/27/2021 10:38 AM EDT) Narrative Performed At This result has an attachment that is n ot available. * EKG 12-LEAD - CMAXX REPORT (01/27/2021 10:38 AM EDT) Narrative Performed At This result has an attachment that is n ot available. * EKG 12-LEAD - CMAXX REPORT (01/27/2021 10:38 AM EDT) Narrative Performed At This result has an attachment that is n ot available. * EKG 12 Lead (01/27/2021 10:38 AM EDT) Specimen Narrative Performed At Ventricular Rate: [facility] EKG 95 BPM Atrial Rate: 95 BPM P-R Interval: 154 ms QRS Duration: 76 ms Q-T Interval: 380 ms QTC Calculation(Bazett): 477 ms P [place]: -7 degrees R [place]: -37 degrees T [place]: 35 degrees : SINUS RHYTHM : LEFT AXIS DEVIATION : MILD PROLONGED QTC : ABNORMAL ECG : NO PREVIOUS ECGS AVAILABLE : Reconfirmed by Case Farley ([id number] ) on 01/28/2021 8:07:48 AM Procedure Note Interface, Received Via [employer] - 01/28/2021 8:07 AM EDT Ventricular Rate: 95 BPM Atrial Rate: 95 BPM P-R Interval: 154 ms QRS Duration: 76 ms Q-T Interval: 380 ms QTC Calculation(Bazett): 477 ms P [place]: -7 degrees R [place]: -37 degrees T [place]: 35 degrees : SINUS RHYTHM : LEFT AXIS DEVIATION : MILD PROLONGED QTC : ABNORMAL ECG : NO PREVIOUS ECGS AVAILABLE : Reconfirmed by Case Farley ([id number]) on 01/28/2021 8:07:48 AM Performing Organization Address City/[facility]/ZIP Code P rita Number [facility] EKG * Hemoglobin A1c (01/27/2021 9:15 AM EDT) Hemoglobin A1C 9.1 (H) 4.0 - 6.0 % [facility] Comment: Med Univ Clin (NOTE) Pathology <5.7% Average risk of diabetes(ADA) 5.7-6.4% Increased risk of diabetes(ADA) >/= 6.5% Diagnostic for diabetes(ADA) Estimated Avg 214 (H) <126 mg/dL [facility] Clin Pathology Specimen Whole Blood Performing Organization Address [facility] P rita Number [address] 132 10 Clin Pathology * Phosphorus Level (01/27/2021 9:15 AM EDT) Phosphorus 3.6 2.5 - 4.5 mg/dL [facility] Clin Pathology Specimen Plasma Performing Organization Address [facility] P rita Number [address] 132 10 Clin Pathology * Magnesium Level (01/27/2021 9:15 AM EDT) Magnesium 1.9 1.6 - 2.4 mg/dL [facility] Clin Pathology Specimen Plasma Performing Organization Address [facility] P rita Number [address] 132 10 Clin Pathology * Lipid panel (01/27/2021 9:15 AM EDT) Cholesterol 158 <200 mg/dL [facility] Clin Pathology Triglyceride 108 <150 mg/dL [facility] Clin Pathology HDL Cholesterol 82 >40 mg/dL [facility] Clin Pathology LDL Cholesterol 55 <100 mg/dL [facility] Clin Pathology VLDL 22 16 - 42 mg/dl [facility] Cholesterol Pending Sale To [facility] Clin Pathology Non HDL 76 <130 mg/dL [facility] Clin Pathology Specimen Plasma Performing Organization Address City/[facility]/ZIP Code P rita Number [facility] [address] [place], [place] [address] 132 10 Clin Pathology * Hepatic Function Panel (01/27/2021 9:15 AM EDT) Albumin 4.0 3.5 - 5.2 g/dL [facility] Clin Pathology Bilirubin, 1.1 <1.2 mg/dL [facility] Total Pending Sale To [facility] Clin Pathology Bilirubin, 0.3 (H) <0.3 mg/dL [facility] Direct Pending Sale To [facility] Clin Pathology Alkaline 72 40 - 129 U/L [facility] Phosphatase Pending Sale To [facility] Clin Pathology AST/SGO 18 <40 U/L [facility] Clin Pathology ALT/SGP 21 <41 U/L [facility] Clin Pathology Total Protein 6.2 (L) 6.4 - 8.3 g/dL [facility] Clin Pathology Specimen Plasma Performing Organization Address [facility] Code P rita Number [facility] [address] [place] [address] 132 10 Clin Pathology * Protime-INR (01/27/2021 9:15 AM EDT) PT Patient 13.7 11.6 - 14.0 s [facility] Clin Pathology Int'l 1.09Comment: Routine intensity [facility] [place] Normalized oral anticoagulation INR is Med Univ Clin Ratio typically 2.0-3.0. Target INR Patholo gy must be clinically individualized. Specimen Plasma Performing Organization Address City/[facility]/ZIP Code P rita Number [address] 132 10 Clin Pathology * Partial Thromboplastin Time (PTT) (01/27/2021 9:15 AM EDT) PTT 25.9 24.0 - 33.0 s [facility] Clin Pathology Specimen Plasma Performing Organization Address [facility] Code P rita Number [address] 132 10 Clin Pathology * Basic Metabolic Panel (01/27/2021 9:15 AM EDT) Bicarbonate 17 (L) 22 - 29 mmol/L [facility] Clin Pathology Chloride 100 98 - 107 mmol/L [facility] Clin Pathology Creatinine 0.61 (L) 0.70 - 1.20 mg/dL [facility] Clin Pathology Glucose 279 (H) 70 - 140 mg/dL [facility] Pathology Potassium 3.8 3.4 - 5.1 mmol/L [facility] Clin Pathology Sodium 134 (L) 136 - 145 mmol/L [facility] Clin Pathology Blood Urea 7 (L) 8 - 23 mg/dL [facility] Nitrogen Pending Sale To [facility] Clin Pathology Anion Gap 17 (H) 8 - 15 mmol/L [facility] Clin Pathology Osmolality, [place] 286 275.0 - 300.0 [facility] mosm/kg [facility] Pathology BUN/Cre Ratio 11 [facility] Clin Pathology Calcium 8.2 (L) 8.8 - 10.2 mg/dL [facility] Clin Pathology GFR Non >90 >60 mL/min/1.73m2 [facility] e [place] 2008 Med [facility] Clin CDK-EPI Pathology GFR >90 >60 mL/min/1.73m2 [facility] [place] 2008 Med [facility] Clin CKD-EPI Pathology Specimen Plasma Performing Organization Address City/[facility]/ZIP Code P rita Number [facility] [address] [place], [place] [address] 132 10 Clin Pathology * CBC and Differential (01/27/2021 9:15 AM EDT) White Blood 11.2 (H) 4.00 - 10.00 10*3/uL [facility] ate Cell Pending Sale To [facility] Clin Pathology Red Blood Cell 4.38 (L) 4.60 - 6.10 10*6/uL [facility] Clin Pathology Hemoglobin 14.1 13.5 - 18.0 g/dL [facility] Clin Pathology Hematocrit 41.0 41.0 - 53.0 % [facility] Clin Pathology Mean Cell 93.5 80.0 - 96.0 fL [facility] Volume Pending Sale To [facility] Clin Pathology Mean Cell 32.2 27.0 - 33.0 pg [facility] Hemoglobin Pending Sale To [facility] Clin Pathology Mean Cell Hgb 34.4 32 - 36 g/dL [facility] Clin Pathology Red Cell Dist 12.4 11.5 - 14.5 % [facility] Width Pending Sale To [facility] Clin Pathology Platelet Count 168 150 - 400 10*3/uL [facility] Pathology Differential Automated Diff [facility] Type [facility] Clin Pathology Neutrophil 78 % [facility] Clin Pathology Lymphocyte 12 % [facility] Clin Pathology Monocyte 8 % [facility] Clin Pathology Eosinophil 1 % [facility] Clin Pathology Basophil 1 % [facility] Clin Pathology Abs Neutrophil 8.89 (H) 1.80 - 7.00 10*3/uL [facility] Clin Pathology Abs Lymphocyte 1.29 1.20 - 4.00 10*3/uL [facility] Clin Pathology Abs Monocyte 0.89 (H) 0.00 - 0.80 10*3/uL [facility] Clin Pathology Abs Eosinophil 0.07 0.00 - 0.50 10*3/uL [facility] Clin Pathology Abs Basophil 0.06 0.00 - 0.20 10*3/uL [facility] Clin Pathology Nucleated Red 0 0 - 0 /100{WBCs} [facility] Blood Cells Pending Sale To [facility] Clin Pathology Specimen EDTA Whole Blood Performing Organization Address City/State/ZIP Code P rita Number [facility] [address] [place], [place] 1321 PATHOLOGY [facility] [address] [place], [place] [address] 10 Clin Pathology * CT Head without Contrast (01/27/2021 8:49 AM EDT) Specimen Impressions Performed At IMPRESSION: [facility] 1. Interval development of hemorrhagic co ntusions in the right frontal and temporal lobes. Scattered subarachnoid hemorrhage in bilateral cerebral and cerebellar hemispheres. 2. Subtle subarachnoid hemorrhage/hemorrh agic contusions in the left frontotemporal region. 3. Redemonstration of a nondisplaced left parietal bone fracture. Narrative Performed At INDICATION: hx subarachnoid status post fall [facility] TECHNIQUE: Contiguous axial CT images o f the head from the base of the skull to the vertex without IV contrast. Automat ed dose lowering techniques and/or adjustment according to patient size we re utilized for this exam. COMPARISON: CT head from outside study from 01/27/2021. FINDINGS: Interval development of hemorrhagic con tusions in the right frontal lobe and right frontal temporal lobe. Subtle sub arachnoid hemorrhage/hemorrhagic contusions are also noted in left front otemporal region Scattered subarachnoid hemorrhage in bilateral cerebral hemisp heres. Linear hyperdensities in the sulci of the cerebellum could represent subar achnoid hemorrhage. Chronic appearing lacunar infarct in the right thalamus. No evidence of mass effect. Generalized atrophy with commensurate enlargement of the ventricular system. The basal ciste rns are patent. Periventricular and subcortical nonspec ific white matter hypoattenuation is most likely attributed to small vessel ische diego disease. Mild thickening of the left maxillary s inus. Mastoid air cells are clear. Nondisplaced left parietal bone fractur e. Mild soft tissue swelling is noted in the left parietal region. Procedure Note Interface, Received Via [employer] - 01/27/2021 10:49 AM EDT INDICATION: hx subarachnoid status post fall TECHNIQUE: Contiguous axial CT images of the head from the base of the skull to the vertex without IV contrast. Automated dose lowering techniques and/or adjustment according to patient size were utilized for this exam. COMPARISON: CT head from outside study from 01/27/2021. FINDINGS: Interval development of hemorrhagic contusions in the right frontal lobe and right frontal temporal lobe. Subtle subarachnoid hemorrhage/hemorrhagic contusions are also noted in left frontotemporal region Scattered subarachnoid hemorrhage in bilateral cerebral hemispheres. Linear hyperdensities in the sulci of the cerebellum could represent subarachnoid hemorrhage. Chronic appearing lacunar infarct in the right thalamus. No evidence of mass effect. Generalized atrophy with commensurate enlargement of the ventricular system. The basal cisterns are patent. Periventricular and subcortical nonspecific white matter hypoattenuation is most likely attributed to small vessel ischemic disease. Mild thickening of the left maxillary sinus. Mastoid air cells are clear. Nondisplaced left parietal bone fracture. Mild soft tissue swelling is noted in the left parietal region. IMPRESSION: 1. Interval development of hemorrhagic contusions in the right frontal and temporal lobes. Scattered subarachnoid hemorrhage in bilateral cerebral and cerebellar hemispheres. 2. Subtle subarachnoid hemorrhage/hemor rhagic contusions in the left frontotemporal region. 3. Redemonstration of a nondisplaced le ft parietal bone fracture. Performing Organization Address City/State/ZIP Code P rita Number [facility] [address] [place] [address] documented in this encounter Visit Diagnoses Diagnosis Traumatic intracranial subarachnoid hem orrhage, with loss of consciousness of 30 minutes or less, initial encounter Intracranial hemorrhage following injur y, with loss of consciousness Other and unspecified intracranial hemo rrhage following injury, without mention of open intracranial wound, loss of consciousness of unspeci fied duration Cerebral edema Essential hypertension Unspecified essential hypertension Alcohol abuse Alcohol abuse, unspecified Hyponatremia Hyposmolality and/or hyponatremia COPD (chronic obstructive pulmonary dis ease) Chronic airway obstruction, not elsewhe re classified Type 2 diabetes mellitus Type II or unspecified type diabetes me llitus without mention of complication, not stated as uncontrolled documented in this encounter Administered Medications Action Date Dose Rate Site Medication Order MAR Action albuterol (PROVENTIL) nebulizer solutio n 2.5 mg 2.5 mg, Nebulization, Every 2 hours PRN, Wheezing, Starting on Thu01/27/21 at 1119, For 6 days 21 hours 01/31/2021 12:31 PM EDT 10 mg bisacodyl (DULCOLAX) suppository 10 mg Given 10 mg, Rectal, Every 72 hours PRN, Constipation, Starting on Thu01/27/21 a t 1119, For 30 days, Hold if patient has had BM within the past 2 days. 02/01/2021 4:14 AM EDT 10 mg cyclobenzaprine (FLEXERIL) tablet 10 mg Given 10 mg, Oral, Three Times Daily-PRN, Muscle spasms, Starting on Thu01/29/21 at 1710, For 30 days 10 mg Given 01/31/2021 8:29 PM EDT 10 mg Given 01/31/2021 6:19 AM EDT 02/01/2021 4:12 AM EDT 5 mLs dextromethorphan-guaiFENesin (Robitussin Given DM) syrup 5 mL 5 mL, Oral, Four Times Daily-PRN, Cough, Starting on Thu01/31/21 at 2304, For 30 days 5 mLs Given 01/31/2021 11:17 PM EDT dextrose 50 % IV solution 25 mL 25 mL, Intravenous, PRN, Other, blood glucose <55, Starting on Thu01/27/21 at 1121, For 30 days, Not for midline administration. 02/01/2021 8:23 AM EDT 100 mg docusate (COLACE) 50 MG/5ML liquid 100 Given mg 100 mg, Oral, 2 Times Daily, First dose on Thu01/29/21 at 2100, For 30 days 100 mg Given 01/31/2021 8:08 AM EDT 100 mg Given 01/30/2021 9:19 PM EDT 02/01/2021 8:23 AM EDT 40 mg enoxaparin sodium (LOVENOX) injection 40 Given mg 40 mg, Subcutaneous, Daily Standard, First dose on Thu01/29/21 at 1200, For 30 days 40 mg Given 01/31/2021 8:12 AM EDT 40 mg Given 01/30/2021 8:10 AM EDT 02/01/2021 8:26 AM EDT 1 mg folic acid (FOLVITE) tablet 1 mg Given 1 mg, Oral, Daily Standard, First dose on Thu01/28/21 at 0900, For 30 days 1 mg Given 01/31/2021 8:08 AM EDT 1 mg Given 01/30/2021 8:10 AM EDT 02/01/2021 8:24 AM EDT 600 mg gabapentin (NEURONTIN) tablet 600 mg Given 600 mg, Oral, Three Times Daily Standard, Indications: Alcohol Withdrawal Syndrome, First dose on Thu01/29/21 at 1700, For 30 days 600 mg Given 01/31/2021 8:26 PM EDT 600 mg Given 01/31/2021 4:20 PM EDT glucagon (human recombinant) (GLUCAGEN) injection 1 mg 1 mg, Intramuscular, PRN, for glucose <55 without IV access, Starting on Thu01/27/21 at 1121, For 30 days glucose (GLUTOSE) 40 % oral gel 15 g 15 g, Oral, PRN, Low blood sugar, for gluose 55-69 mg/dl and able to take PO, Starting on Thu01/27/21 at 1121, For 30 days hydrALAZINE (APRESOLINE) injection 10 m g 10 mg, Intravenous, Every 6 hours PRN , Hypertension, SBP>160, Starting on Thu01/29/21 at 1151, For 671 hours, Dilute in 25-50 mL normal saline. Administer over 30 minutes. 02/01/2021 8:24 AM EDT 1 tablet HYDROcodone-acetaminophen (LORTAB) 5-325 Given MG per tablet 1 tablet 1 tablet, Oral, Every 6 hours PRN, Moderate Pain (Pain Scale Score 4-6), Starting on Thu02/01/21 at 0744, For 3 days, Maximum daily dose of acetaminophen is 3,000 mg from all sources in 24 hours. insulin glargine (LANTUS) injection 20 Units 20 Units, Subcutaneous, 2 Times Daily, First dose (after last modification) on Thu02/01/21 at 2100, For 57 doses, For blood glucose less than 70 mg/dL: follo w hypoglycemia protocol ( ) and notify provider. For blood glucose values between 70 mg/dL and 100 mg/dL a t bedtime: provide snack (15 grams of carbohydrates) with some protein. Administer FULL DOSE of insulin glargin e (LANTUS) after snack. Record snack in I&O's. For blood glucose more than 40 0 mg/dL: notify provider 02/01/2021 12:33 PM EDT 14 Units insulin lispro (HumaLOG) injection HIGH Given DOSE EATING INSULIN patients 1-22 Units 1-22 Units, Subcutaneous, Three Times Daily-With Meals, First dose on Thu01/29/21 at 1800, For 30 days, Nursing MUST open the 'SQ Insulin Dosing Charts ' Sidebar Report, or, the Patient Summary or Summary Report within the ED. 8 Units Given 02/01/2021 8:28 AM EDT 10 Units Given 01/31/2021 5:26 PM EDT labetalol (TRANDATE) injection 10 mg 10 mg, Intravenous, Every 6 hours PRN , High Blood Pressure, SBP>160, Starting on Thu01/29/21 at 1151, For 623 hours, Dilute in 25-50 mL normal saline. Administer over 30 minutes. 02/01/2021 8:25 AM EDT 100 mg Lacosamide (VIMPAT) tablet 100 mg Given 100 mg, Oral, 2 Times Daily, First dose on Thu01/30/21 at 2100, For 30 days 100 mg Given 01/31/2021 8:26 PM EDT 100 mg Given 01/31/2021 8:12 AM EDT 02/01/2021 8:22 AM EDT 1 patch Other lidocaine (LIDODERM) 5 % patch 1 patch Patch 1 patch, Transdermal, Daily Standard, Applied First dose on Thu01/28/21 at 0900, For 30 days, Apply to lower back 12 hours o n - 12 hours off 1 patch Other Patch Applied 01/30/2021 8:09 AM EDT 1 patch Other Patch Applied 01/29/2021 8:32 AM EDT magnesium hydroxide (MILK OF MAGNESIA) 400 MG/5ML oral suspension 45 mL 45 mL, Oral, Nightly, First dose on Thu01/27/21 at 2200, For 30 days, If serum creatinine > 2 notify provider before administering. 02/01/2021 8:24 AM EDT 400 mg Magnesium Oxide (MAG-OX) tablet 400 mg Given 400 mg, Oral, Daily Standard, First dose on Thu01/31/21 at 1045, For 30 day s 400 mg Given 01/31/2021 10:45 AM EDT 01/31/2021 8:29 PM EDT 5 mg melatonin tablet 5 mg Given 5 mg, Oral, Nightly PRN, Sleep, Starting on Thu01/29/21 at 2128, For 30 days 5 mg Given 01/29/2021 9:59 PM EDT 02/01/2021 8:24 AM EDT 1 tablet multivitamin tablet 1 tablet Given 1 tablet, Oral, Daily Standard, First dose on Thu01/28/21 at 0900, For 30 day s 1 tablet Given 01/31/2021 8:11 AM EDT 1 tablet Given 01/30/2021 8:13 AM EDT ondansetron (ZOFRAN) injection 4 mg 4 mg, Intravenous, Every 8 hours PRN, Nausea, Vomiting, Starting on Thu02/01/21 at 0959, For 7 days, Administer if unable to tolerate PO. 02/01/2021 10:34 AM EDT 4 mg ondansetron (ZOFRAN) tablet 4 mg Given 4 mg, Oral, Every 8 hours PRN, Nausea , Vomiting, Starting on Thu02/01/21 at 0959, For 7 days, Administer if able to tolerate PO. 02/01/2021 8:24 AM EDT 50 mg QUEtiapine (SEROquel) tablet 50 mg Given 50 mg, Oral, Every 8 hours Standard (3 times per day), First dose (after last modification) on Thu01/30/21 at 1700, For 30 days 50 mg Given 02/01/2021 12:53 AM EDT 50 mg Given 01/31/2021 4:21 PM EDT senna (SENOKOT) syrup 10 mL 10 mL, Oral, Nightly PRN, Constipation , Starting on Thu01/27/21 at 1119, For 30 days 01/30/2021 9:18 PM EDT 2 tablets senna tablet 2 tablet Given 2 tablet, Oral, Nightly PRN, Constipation, Starting on Thu01/27/21 a t 1119, For 30 days 02/01/2021 12:33 PM EDT 2 g sodium chloride tablet 2 g Given 2 g, Oral, Three Times Daily-With Meals , First dose (after last modification) on Thu01/30/21 at 0800, For 88 doses 2 g Given 02/01/2021 8:23 AM EDT 2 g Given 01/31/2021 5:26 PM EDT Action Date Dose Rate Site Medication Order MAR Action 01/27/2021 9:18 AM EDT 1,000 mg 400 mL/hr acetaminophen (OFIRMEV) infusion 1,000 New Bag mg 1,000 mg, Intravenous, Administer over 15 Minutes, Once, On Thu01/27/21 at 0915, For 1 dose, Maximum daily dose of acetaminophen from all sources 3,000 mg daily. 01/28/2021 4:23 AM EDT 400 mL/hr acetaminophen (OFIRMEV) infusion 1,000 Rate/Dose mg Verify 1,000 mg, Intravenous, Administer over 15 Minutes, Once, On Thu01/28/21 at 0415, For 1 dose, Maximum daily dose of acetaminophen from all sources 3,000 mg daily. 1,000 mg 400 mL/hr New Bag 01/28/2021 4:20 AM EDT 02/01/2021 2:43 AM EDT 650 mg acetaminophen (TYLENOL) 160 MG/5ML Given solution (ADULT) 650 mg 650 mg, Oral, Every 6 hours PRN, Mild Pain (Pain Scale Score 1-3), Fever, Starting on Thu01/28/21 at 0845, For 30 days, Maximum dose of acetaminophen is 3,000 mg from all sources in 24 hours. 650 mg Given 01/31/2021 9:29 PM EDT 650 mg Given 01/31/2021 4:21 PM EDT 01/27/2021 12:01 PM EDT 650 mg acetaminophen (TYLENOL) tablet 650 mg Given 650 mg, Oral, Every 6 hours PRN, All Levels of Pain (Pain Scale Score 1-10), Starting on Thu01/27/21 at 1119, For 30 days, Maximum daily dose of acetaminophen is 3,000 mg from all sources in 24 hours. 01/27/2021 7:58 AM EDT 30 mcg desmopressin (DDAVP) injection 30 mcg New Bag 30 mcg, Intravenous, Once, On Thu01/27/21 at 0745, For 1 dose 01/29/2021 8:00 AM EDT 0.6 mcg/kg/hr 11.4 mL/hr dexmedetomidine (PRECEDEX) in NaCl 0.9 % Rate/Dose infusion 4 mcg/mL Verify 0.1-1.5 mcg/kg/hr 76.2 kg (1.905-28.575 mL/hr, rounded to 1.9-28.6 mL/hr), Intravenous, at 1.9-28.6 mL/hr, Continuous, Starting on Thu01/27/21 at 1830, For 30 days, Starting dose = 0.2 mcg/kg/hr Titrate t o maintain RASS of 0 0.6 mcg/kg/hr 11.4 mL/hr Rate/Dose Verify 01/29/2021 7:00 AM EDT 0.6 mcg/kg/hr 11.4 mL/hr Rate/Dose Verify 01/29/2021 6:00 AM EDT 01/27/2021 10:00 AM EDT 5 mg hydrALAZINE (APRESOLINE) injection 5 mg New Bag 5 mg, Intravenous, Once, On Thu01/27/21 at 0915, For 1 dose, Dilute in 25-50 mL normal saline. Administer over 30 minutes. 01/27/2021 10:30 AM EDT 5 mg hydrALAZINE (APRESOLINE) injection 5 mg New Bag 5 mg, Intravenous, Once, On Thu01/27/21 at 1030, For 1 dose, Dilute in 25-50 mL normal saline. Administer over 30 minutes. 01/28/2021 8:46 PM EDT 1 tablet HYDROcodone-acetaminophen (LORTAB) 5-325 Given MG per tablet 1 tablet 1 tablet, Oral, Three Times Daily-PRN, Severe Pain (Pain Scale Score 7-10), Fo r Back Pain, Starting on Thu01/27/21 at 1204, For 3 days, Maximum daily dose of acetaminophen is 3,000 mg from all sources in 24 hours. 1 tablet Given 01/27/2021 12:35 PM EDT 01/31/2021 11:18 PM EDT 1 tablet HYDROcodone-acetaminophen (LORTAB) 5-325 Given MG per tablet 1 tablet 1 tablet, Oral, Once, On Thu01/31/21 at 2315, For 1 dose, Maximum daily dose of acetaminophen is 3,000 mg from all sources in 24 hours. 02/01/2021 4:12 AM EDT 1 tablet HYDROcodone-acetaminophen (LORTAB) 5-325 Given MG per tablet 1 tablet 1 tablet, Oral, Once, On Thu02/01/21 at 0415, For 1 dose, Maximum daily dose of acetaminophen is 3,000 mg from all sources in 24 hours. 02/01/2021 8:26 AM EDT 15 Units insulin glargine (LANTUS) injection 15 Given Units 15 Units, Subcutaneous, 2 Times Daily, First dose on Thu01/31/21 at 0900, For 30 days, For blood glucose less than 70 mg/dL: follow hypoglycemia protocol ( ) and notify provider. For blood glucose values between 70 mg/dL and 100 mg/dL at bedtime: provide snack (15 grams of carbohydrates) with some protein. Administer FULL DOSE of insulin glargine (LANTUS) after snack. Record snack in I&O's. For blood glucose more than 400 mg/dL: notify provider 15 Units Given 01/31/2021 8:26 PM EDT 15 Units Given 01/31/2021 8:13 AM EDT 01/29/2021 5:18 AM EDT 2 Units insulin lispro (HUMALOG) injection HIGH Given DOSE NPO INSULIN patients 1-12 Units 1-12 Units, Subcutaneous, Every 4 hours, First dose on Thu01/27/21 at 1700, For 30 days, Nursing MUST open th e 'SQ Insulin Dosing Charts' Sidebar Report, or, the Patient Summary or Summary Report within the ED. 2 Units Given 01/29/2021 12:32 AM EDT 4 Units Given 01/28/2021 8:44 PM EDT 01/29/2021 4:38 PM EDT 6 Units insulin lispro (HUMALOG) injection HIGH Given DOSE TUBE CONT INSULIN patients 1-16 Units 1-16 Units, Subcutaneous, Every 4 hours, First dose on Thu01/29/21 at 0900, For 30 days, Nursing MUST open th e 'SQ Insulin Dosing Charts' Sidebar Report, or, the Patient Summary or Summary Report within the ED. 6 Units Given 01/29/2021 12:41 PM EDT 4 Units Given 01/29/2021 9:15 AM EDT 01/27/2021 4:44 PM EDT 3 Units insulin lispro (HUMALOG) injection LOW Given DOSE NPO INSULIN patients 1-5 Units 1-5 Units, Subcutaneous, Every 4 hours, First dose on Thu01/27/21 at 1200, For 30 days, Nursing MUST open th e 'SQ Insulin Dosing Charts' Sidebar Report, or, the Patient Summary or Summary Report within the ED. 1 Units Given 01/27/2021 12:43 PM EDT 01/27/2021 10:44 AM EDT 1,000 mLs 999 mL/hr lactated ringers bolus 1,000 mL New Bag 1,000 mL, Intravenous, Once, On Thu01/27/21 at 1015, For 1 dose 01/29/2021 10:02 PM EDT 400 mL/hr levETIRAcetam (KEPPRA) 500 mg in sodium Rate/Dose chloride 100 mL (5 mg/mL) infusion Verify (premix) 500 mg, Intravenous, at 400 mL/hr, Ever y 12 hours, First dose on Thu01/27/21 at 2230, For 30 days 400 mL/hr Rate/Dose Verify 01/29/2021 10:00 PM EDT 500 mg 400 mL/hr New Bag 01/29/2021 9:58 PM EDT 01/27/2021 12:01 PM EDT 500 mg levETIRAcetam (KEPPRA) tablet 500 mg Given 500 mg, Oral, 2 Times Daily, First dose on 01/27/21 at 1130, For 28 days 01/29/2021 1:14 PM EDT 16 mEq 50 mL/hr magnesium sulfate infusion 2 g/50 mL New Bag (premix) 16 mEq, Intravenous, Every 1 hour PRN, for serum magnesium < 2 mEq/L, Starting on Thu01/27/21 at 1120, For 7 days, Serum Magnesium 1.6 - 1.9: give 16 mEq (2 g) q1h x 2
Serum Magnesium 1.5 and less: give 16 mEq (2 g) q1h x 3 16 mEq 50 mL/hr New Bag 01/29/2021 9:12 AM EDT 01/27/2021 9:21 AM EDT 10 mg metoclopramide (REGLAN) injection 10 mg New Bag 10 mg, Intravenous, Once, On Thu 1 at 0915, For 1 dose 01/27/2021 2:29 PM EDT 2 mg midazolam (PF) (VERSED) injection 2 mg New Bag 2 mg, Intravenous, Once, On Thu01/27/21 at 1430, For 1 dose 01/29/2021 8:00 AM EDT 75 mL/hr NaCl infusion 0.9 % Rate/Dose at 75 mL/hr, Intravenous, Continuous, Verify Starting on Thu01/27/21 at 1130, For 2 days 75 mL/hr Rate/Dose Verify 01/29/2021 7:00 AM EDT 75 mL/hr Rate/Dose Verify 01/29/2021 6:00 AM EDT 01/27/2021 10:50 PM EDT 5 mg/hr 25 mL/hr niCARdipine (CARDENE) 40 mg in sodium Rate/Dose chloride 0.9 % 200 mL infusion (0.2 Verify mg/mL) 5-15 mg/hr (25-75 mL/hr), Intravenous, at 25-75 mL/hr, Continuous, Starting on Thu01/27/21 at 1145, For 30 days, Starting dose = 5 mg/hr Titrate to maintain SBP < 140 Increase by 2.5 mg/hr Max Dose = 15 mg/hr Titrate down if SBP < 120 5 mg/hr 25 mL/hr Rate/Dose Change 01/27/2021 10:39 PM EDT 8 mg/hr 40 mL/hr Rate/Dose Verify 01/27/2021 10:00 PM EDT ondansetron (ZOFRAN) 4 MG/2ML injection Starting on Thu01/27/21 at 1035, For 1 dose, Yadira Stein: geneva override 01/27/2021 10:40 AM EDT 4 mg ondansetron (ZOFRAN) injection 4 mg Given 4 mg, Given by IV, Once, On Thu01/27/21 at 1030, For 1 dose 01/27/2021 4:41 PM EDT 4 mg ondansetron (ZOFRAN) injection 4 mg New Bag 4 mg, Intravenous, Every 8 hours PRN, Nausea, Vomiting, Starting on Thu01/27/21 at 1627, For 30 days 01/31/2021 10:14 AM EDT 5 mg oxyCODONE (ROXICODONE) immediate release Given tablet 5 mg 5 mg, Oral, Every 4 hours PRN, Moderate Pain (Pain Scale Score 4-6), Starting on Thu01/29/21 at 1349, For 3 days, Oxycodone immediate release is limited to 10 mg per dose. Higher doses ( only) require Pain Service consultation and approval. 5 mg Given 01/31/2021 6:19 AM EDT 5 mg Given 01/31/2021 1:52 AM EDT 01/31/2021 8:12 AM EDT 40 mg pantoprazole (PROTONIX) injection 40 mg Given by IV 40 mg, Intravenous, Daily Standard, push First dose on Thu01/28/21 at 0900, For 30 days 40 mg New Bag 01/30/2021 8:10 AM EDT 40 mg New Bag 01/29/2021 8:32 AM EDT 01/30/2021 12:00 AM EDT 12.5 mL/hr piperacillin-tazobactam (ZOSYN) IVPB Rate/Dose 3.375 g (premix) Verify 3.375 g, Intravenous, Administer over 4 Hours, Every 8 hours, First dose on Thu01/28/21 at 0745, For 3 days, This specific formulation of piperacillin-tazobactam is compatible with Lactated Ringers. 12.5 mL/hr Rate/Dose Verify 01/29/2021 11:32 PM EDT 3.375 g 12.5 mL/hr New Bag 01/29/2021 11:31 PM EDT 01/29/2021 3:30 PM EDT 40 mEq potassium chloride (KLOR-CON) packet 40 Given mEq 40 mEq, Oral, Once, On Thu01/29/21 at 1500, For 1 dose, Mix in 4 ounces of water or juice 02/01/2021 8:26 AM EDT 40 mEq potassium chloride (KLOR-CON) packet 40 Given mEq 40 mEq, Oral, 2 Times Daily, First dose on Thu01/29/21 at 2100, For 3 days, Mi x in 4 ounces of water or juice 40 mEq Given 01/31/2021 8:26 PM EDT 40 mEq Given 01/31/2021 8:15 AM EDT 01/29/2021 4:00 AM EDT 100 mL/hr potassium chloride 10 mEq in 100 mL IVPB Rate/Dose (premix) Verify 10 mEq, Intravenous, Every 1 hour PRN, for serum potassium < 4 mEq/L, Starting on Thu01/27/21 at 1120, For 30 days, Serum Potassium 3.7 - 3.9: give 10 mEq q1h x2 Serum Potassium 3.6 and less: give 10 mEq q1h x 4 100 mL/hr Rate/Dose Verify 01/29/2021 3:38 AM EDT 10 mEq 100 mL/hr New Bag 01/29/2021 3:33 AM EDT 01/27/2021 12:39 PM EDT 10 mg prochlorperazine (COMPAZINE) injection New Bag 10 mg 10 mg, Intravenous, Every 6 hours PRN , Nausea, Vomiting, Starting on Thu01/27/21 at 1119, For 30 days, For IV use: Prepare in 50 mL NS and infuse ove r 15 minutes. 01/29/2021 9:15 AM EDT 25 mg QUEtiapine (SEROquel) tablet 25 mg Given 25 mg, Oral, Every 8 hours PRN, agitation, Starting on Thu01/29/21 at 0846, For 30 days 01/29/2021 1:57 PM EDT 25 mg QUEtiapine (SEROquel) tablet 25 mg Given 25 mg, Oral, Once, On Thu01/29/21 at 1345, For 1 dose 01/31/2021 4:21 PM EDT 25 mg QUEtiapine (SEROquel) tablet 25 mg Given 25 mg, Oral, Once, On Thu01/31/21 at 1615, For 1 dose 01/30/2021 8:59 AM EDT 50 mg QUEtiapine (SEROquel) tablet 50 mg Given by 50 mg, Oral, Every 8 hours PRN, Other agitation, Starting on Thu01/29/21 at 1333, For 715 hours 50 mg Given 01/30/2021 1:37 AM EDT 50 mg Given 01/29/2021 5:34 PM EDT 01/27/2021 12:16 PM EDT 1,000 mLs 999 mL/hr sodium chloride 0.9 % bolus 1,000 mL New Bag 1,000 mL, Intravenous, Once, On Thu01/27/21 at 1200, For 1 dose 01/29/2021 3:00 PM EDT 30 mL/hr 30 mL/hr sodium chloride 3 % hypertonic Rate/Dose solution Verify at 30 mL/hr, Intravenous, Continuous, Starting on Thu01/27/21 at 1500, For 30 days 30 mL/hr 30 mL/hr Rate/Dose Verify 01/29/2021 2:00 PM EDT 30 mL/hr 30 mL/hr Rate/Dose Verify 01/29/2021 1:00 PM EDT 01/29/2021 5:46 PM EDT 1 g sodium chloride tablet 1 g Given 1 g, Oral, Three Times Daily-With Meals , First dose on Thu01/29/21 at 1300, For 30 days 1 g Given 01/29/2021 12:12 PM EDT 01/30/2021 4:31 AM EDT 500 mg 100 mL/hr thiamine (B-1) 500 mg in sodium chloride New Bag 0.9 % 50 mL IVPB 500 mg, Intravenous, Administer over 30 Minutes, Every 8 hours, First dose (after last modification) on Thu 1 at 1230, For 2 days 100 mL/hr Rate/Dose Verify 01/29/2021 9:17 PM EDT 500 mg 100 mL/hr New Bag 01/29/2021 9:14 PM EDT 01/30/2021 1:45 AM EDT 25 mg trazodone (DESYREL) tablet 25 mg Given 25 mg, Oral, Once, On 01/30/21 at 0145, For 1 dose 01/31/2021 9:27 PM EDT 25 mg trazodone (DESYREL) tablet 25 mg Given 25 mg, Oral, Once, On Sandy 01/31/21 at 2045, For 1 dose documented in this encounter Active and Recently Administered Medications Times are shown in EDT. 01/31/2021 02/01/2021 Medication Order 01/30/2021 0808 (Given - Provider: Rosie Henson RN)2024 (Not Given - Provider: Merle Harrison RN - Reason: Order parameters not met) 0823 (Given - Provider: Sammy corea RN)2100 (Due) docusate (COLACE) 50 MG/5ML liquid 100 0810 (Given - mg Provider: Ina Rutherford 100 mg, Oral, 2 Times Daily, First dose SPIKE De La Rosa) 2118 on Thu01/29/21 at 2100, For 30 days (Given - Provide r: Rebekah Julio RN) 0812 (Given - Provider: Rosie Henson RN) 08 (Given - Provider: Sammy corea RN) enoxaparin sodium (LOVENOX) injection 40 0810 (Given - mg Provider: Ina E 40 mg, Subcutaneous, Daily Standard, SPIKE [place] Rosa) First dose on Thu01/29/21 at 1200, For 30 days 0808 (Given - Provider: Rosie Henson RN) 0826 (Given - Provider: Sammy corea RN) folic acid (FOLVITE) tablet 1 mg 0810 (Given - 1 mg, Oral, Daily Standard, First dose Provider: Sa brandyn Rutherford on Thu01/28/21 at 0900, For 30 days SPIKE [place] La Rosa) 0812 (Given - Provider: Rosie Henson RN)162 (Given - Provider: Rosie Henson RN)2025 (Given - Provider: Merle Harrison RN) 08 (Given - Provider: Sammy corea RN)1700 (Due)2099 (Due) gabapentin (NEURONTIN) tablet 600 mg 0810 (Given - 600 mg, Oral, Three Times Daily Provider: Ina Boggs, Indications: Alcohol SPIKE De La Rosa)1654 Withdrawal Syndrome, First dose on Thu (Given - Prov ider: 01/29/21 at 1700, For 30 days SPIKE Waite)2117 (Given - Provider: Rebekah Julio RN) 2317 (Given - Provider: Merle Harrison RN) HYDROcodone-acetaminophen (LORTAB) 5-32 5 MG per tablet 1 tablet (COMPLETED) 1 tablet, Oral, Once, On Thu01/31/21 at 2315, For 1 dose, Maximum daily dose of acetaminophen is 3,000 mg from all sources in 24 hours. 041 (Given - Provider: Merle Harrison RN) HYDROcodone-acetaminophen (LORTAB) 5-32 5 MG per tablet 1 tablet (COMPLETED) 1 tablet, Oral, Once, On Thu02/01/21 at 0415, For 1 dose, Maximum daily dose of acetaminophen is 3,000 mg from all sources in 24 hours. 08 (Given - Provider: Rosie Henson RN)2025 (Given - Provider: Merle Harrison RN) 825 (Given - Provider: Sammy corea RN) insulin glargine (LANTUS) injection 15 Units (CANCELED) 15 Units, Subcutaneous, 2 Times Daily, First dose on Thu01/31/21 at 0900, For 30 days, For blood glucose less than 70 mg/dL: follow hypoglycemia protocol (CM H-) and notify provider. For blood glucose values between 70 mg/dL and 100 mg/dL at bedtime: provide snack (15 grams of carbohydrates) with some protein. Administer FULL DOSE of insulin glargine (LANTUS) after snack. Record snack in I&O's. For blood glucose more than 400 mg/dL: notify provider 2099 (Due) insulin glargine (LANTUS) injection 20 Units 20 Units, Subcutaneous, 2 Times Daily, First dose (after last modification) on Thu02/01/21 at 2100, For 57 doses, For blood glucose less than 70 mg/dL: follo w hypoglycemia protocol ( ) and notify provider. For blood glucose values between 70 mg/dL and 100 mg/dL a t bedtime: provide snack (15 grams of carbohydrates) with some protein. Administer FULL DOSE of insulin glargin e (LANTUS) after snack. Record snack in I&O's. For blood glucose more than 40 0 mg/dL: notify provider 0821 (Given - Provider: Rosie Henson RN)1231 (Given - Provider: Rosie Henson, [place])1726 (Given - Provider: Rosie Henson RN) 0828 (Given - Provider: Sammy corea RN)1233 (Given - Provider: Keily Schmidt RN)1800 (Due) insulin lispro (HumaLOG) injection HIGH 0813 (Not Gi guero - DOSE EATING INSULIN patients 1-22 Units Provider: Sa brandyn Rutherford 1-22 Units, Subcutaneous, Three Times SPIKE De La Rosa - Daily-With Meals, First dose on Thu Reason: 01/29/21 at 1800, For 30 days, Nursing Patient/family MUST open the 'SQ Insulin Dosing Charts' refused)120 5 (Given Sidebar Report, or, the Patient Summary - Provider: Ina cotton Summary Report within the ED. SPIKE De La Rosa)1653 (Given - Provider: SPIKE Waite) 0812 (Given - Provider: Rosie Henson RN)2025 (Given - Provider: Merle Harrison RN) 0825 (Given - Provider: Sammy corea RN)2100 (Due) Lacosamide (VIMPAT) tablet 100 mg 2117 (Given - 100 mg, Oral, 2 Times Daily, First dose Provider: Jimenez mckeon on Thu01/30/21 at 2100, For 30 days [place] Julio) 0814 (Not Given - Provider: Rosie cedeno RN - Reason: Patient/family refused) 08 (Patch Applied - Provider: Sammy Mosley RN - Comment: back)2021 (Due: Patch Removed - Provider: Sammy Mosley RN) lidocaine (LIDODERM) 5 % patch 1 patch 0809 (Patch A pplied 1 patch, Transdermal, Daily Standard, - Provider: Edil Rutherford First dose on Thu01/28/21 at 0900, For SPIKE [place] La Rosa)2 119 30 days, Apply to lower back 12 hours on (Patch David alyson - - 12 hours off Provider: Rebekah Julio RN) 2042 (Not Given - Provider: Merle nunez RN - Reason: Order parameters not met) 2199 (Due) magnesium hydroxide (MILK OF MAGNESIA) 2215 (Not Giv en - 400 MG/5ML oral suspension 45 mL Provider: Rebekah 45 mL, Oral, Nightly, First dose on Sun Gustavo hendrix RN 01/27/21 at 2200, For 30 days, If serum - Reason: Oth er prep creatinine > 2 notify provider before given) administering. 1045 (Given - Provider: Rosie Henson RN) 0824 (Given - Provider: Sammy corea RN) Magnesium Oxide (MAG-OX) tablet 400 mg 400 mg, Oral, Daily Standard, First dose on Sandy 01/31/21 at 1045, For 30 day s 0811 (Given - Provider: Rosie Henson RN) 0824 (Given - Provider: Sammy corea RN) multivitamin tablet 1 tablet 0813 (Given - 1 tablet, Oral, Daily Standard, First Provider: Christopher Rutherford dose on Thu01/28/21 at 0900, For 30 days SPIKE De La Rosa ) 0812 (Given by IV push - Provider: Sandra Henson RN) 0823 (Not Given - Provider: Sammy sanchez RN - Reason: Loss of IV access) pantoprazole (PROTONIX) injection 40 mg 0810 (New Ba g - (CANCELED) Provider: Ina E 40 mg, Intravenous, Daily Standard, SPIKE [place] Rosa) First dose on Thu01/28/21 at 0900, For 30 days piperacillin-tazobactam (ZOSYN) IVPB 0000 (Rate/Dose 3.375 g (premix) (CANCELED) Verify - Provider: 3.375 g, Intravenous, Administer over 4 Rebekah Hours, Every 8 hours, First dose on TeaganPricillaWilberloco rutherford, 01/28/21 at 0745, For 3 days, This RN)0331 (Stopp ed - specific formulation of All Meds - Provider: piperacillin-tazobactam is compatible Rebekah with Lactated Ringers. Sumanth, [place])0745 (Canceled Entry - Provider: ARCENIO Funes - Comment: Automatically canceled at discontinue of medication order) 0815 (Given - Provider: Rosie Henson , [place])202 (Given - Provider: Merle Harrison, [place]) 08 (Given - Provider: Sammy corea RN) potassium chloride (KLOR-CON) packet 40 0821 (Given - mEq (COMPLETED) Provider: Ina Rutherford 40 mEq, Oral, 2 Times Daily, First dose Rj, GN) 2118 on Thu01/29/21 at 2100, For 3 days, Mix (Given - Pr ovider: in 4 ounces of water or juice Rebekah Julio RN) 1621 (Given - Provider: Rosie Henson RN) QUEtiapine (SEROquel) tablet 25 mg (COMPLETED) 25 mg, Oral, Once, On Thu01/31/21 at 1615, For 1 dose 0152 (Given - Provider: Rebekah ocsta RN)0812 (Given - Provider: Rosie Henson RN)1621 (Given - Provider: Rosie Henson RN) 0053 (Given - Provider: Merle Harrison RN)0824 (Given - Provider: Sammy Mosley RN)1700 (Due) QUEtiapine (SEROquel) tablet 50 mg 1654 (Given - 50 mg, Oral, Every 8 hours Standard Provider: Christopher Rutherford (3 times per day), First dose (after Rj, GN) last modification) on Thu01/30/21 at 1700, For 30 days 0814 (Given - Provider: Rosie Henson , [place])1231 (Given - Provider: Rosie Henson RN)1726 (Given - Provider: Rosie Henson RN) 0823 (Given - Provider: Sammy corea RN)1233 (Given - Provider: Keily Schmidt, [place])1800 (Due) sodium chloride tablet 2 g 0821 (Given - 2 g, Oral, Three Times Daily-With Meals, Provider: Edil Rutherford First dose (after last modification) on Rj, ) 1415 Thu01/30/21 at 0800, For 88 doses (Given - Provider: SPIKE Waite)1654 (Given - Provider: SPIKE Waite) thiamine (B-1) 500 mg in sodium chloride 0431 (New B ag - 0.9 % 50 mL IVPB (COMPLETED) Provider: Rebekah 500 mg, Intravenous, Administer over 30 Gustavo hendrix RN) Minutes, Every 8 hours, First dose (after last modification) on Thu 1 at 1230, For 2 days trazodone (DESYREL) tablet 25 mg 0145 (Given - (COMPLETED) Provider: Rebekah 25 mg, Oral, Once, On Thu01/30/21 at [place] Julio) 0145, For 1 dose 2126 (Given - Provider: Merle Harrison RN) trazodone (DESYREL) tablet 25 mg (COMPLETED) 25 mg, Oral, Once, On Thu01/31/21 at 2045, For 1 dose 01/31/2021 02/01/2021 Medication Order 01/30/2021 0808 (Given - Provider: Rosie Henson RN)1621 (Given - Provider: Rosie Henson RN)2129 (Given - Provider: Merle Harrison RN - Comment: cluster pt care, delirium) 0243 (Given - Provider: Annamaria Huang RN) acetaminophen (TYLENOL) 160 MG/5ML 1102 (Given - solution (ADULT) 650 mg (CANCELED) Provider: Ina Rutherford 650 mg, Oral, Every 6 hours PRN, SPIKE Mcmahon) Pain (Pain Scale Score 1-3), Fever, Starting on Thu01/28/21 at 0845, For 30 days, Maximum dose of acetaminophen is 3,000 mg from all sources in 24 hours. albuterol (PROVENTIL) nebulizer solutio n 2.5 mg 2.5 mg, Nebulization, Every 2 hours PRN, Wheezing, Starting on Thu01/27/21 at 1119, For 6 days 21 hours 1231 (Given - Provider: Rosie Henson , RN) bisacodyl (DULCOLAX) suppository 10 mg 10 mg, Rectal, Every 72 hours PRN, Constipation, Starting on Thu01/27/21 a t 1119, For 30 days, Hold if patient has had BM within the past 2 days. 0619 (Given - Provider: Rebekah costa RN)2029 (Given - Provider: Merle Harrison, RN) 041 (Given - Provider: Merle Harrison, [place]) cyclobenzaprine (FLEXERIL) tablet 10 mg 0137 (Given - 10 mg, Oral, Three Times Daily-PRN, Provider: Patrica christie Muscle spasms, Starting on Thu01/29/[facility] [place], For 30 days RN)0859 (Given by Other - Provider: SPIKE Waite)1658 (Given - Provider: SPIKE Waite) 2317 (Given - Provider: Merle Harrison, [place]) 0412 (Given - Provider: Merle Harrison RN) dextromethorphan-guaiFENesin (Robitussi n DM) syrup 5 mL 5 mL, Oral, Four Times Daily-PRN, Cough, Starting on Thu01/31/21 at 2304, For 30 days dextrose 50 % IV solution 25 mL 25 mL, Intravenous, PRN, Other, blood glucose <55, Starting on Thu01/27/21 at 1121, For 30 days, Not for midline administration. glucagon (human recombinant) (GLUCAGEN) injection 1 mg 1 mg, Intramuscular, PRN, for glucose <55 without IV access, Starting on Thu01/27/21 at 1121, For 30 days glucose (GLUTOSE) 40 % oral gel 15 g 15 g, Oral, PRN, Low blood sugar, for gluose 55-69 mg/dl and able to take PO, Starting on Thu01/27/21 at 1121, For 30 days hydrALAZINE (APRESOLINE) injection 10 m g 10 mg, Intravenous, Every 6 hours PRN , Hypertension, SBP>160, Starting on Thu01/29/21 at 1151, For 671 hours, Dilute in 25-50 mL normal saline. Administer over 30 minutes. 0824 (Given - Provider: Sammy corea RN) HYDROcodone-acetaminophen (LORTAB) 5-32 5 MG per tablet 1 tablet 1 tablet, Oral, Every 6 hours PRN, Moderate Pain (Pain Scale Score 4-6), Starting on Thu02/01/21 at 0744, For 3 days, Maximum daily dose of acetaminophen is 3,000 mg from all sources in 24 hours. labetalol (TRANDATE) injection 10 mg 10 mg, Intravenous, Every 6 hours PRN , High Blood Pressure, SBP>160, Starting on Thu01/29/21 at 1151, For 623 hours, Dilute in 25-50 mL normal saline. Administer over 30 minutes. 2028 (Given - Provider: Merle Harrison RN) melatonin tablet 5 mg 5 mg, Oral, Nightly PRN, Sleep, Starting on Thu01/29/21 at 2128, For 30 days 1034 (See Alternative - Provider: Keily Schmidt, [place]) ondansetron (ZOFRAN) injection 4 mg(Linked Group 1) 4 mg, Intravenous, Every 8 hours PRN, Nausea, Vomiting, Starting on Thu02/01/21 at 0959, For 7 days, Administer if unable to tolerate PO. 1034 (Given - Provider: Keily Schmdit, [place]) ondansetron (ZOFRAN) tablet 4 mg(Linked Group 1) 4 mg, Oral, Every 8 hours PRN, Nausea , Vomiting, Starting on Thu02/01/21 at 0959, For 7 days, Administer if able to tolerate PO. 0152 (Given - Provider: Rebekah costa RN)0619 (Given - Provider: Rebekah Julio RN)1014 (Given - Provider: Rosie Henson RN) oxyCODONE (ROXICODONE) immediate release 0008 (Given - tablet 5 mg (CANCELED) Provider: Rebekah 5 mg, Oral, Every 4 hours PRN, Sumanth, Moderate Pain (Pain Scale Score 4-6), RN)0437 (Given - Starting on Thu01/29/21 at 1349, For 3 Provider: Arleth diaz, Oxycodone immediate release is Sumanth , limited to 10 mg per dose. Higher doses RN)0903 (Giv en - ( only) require Pain Service Provider: Ina Rutherford consultation and approval. SPIKE De La Rosa)1415 (Given - Provider: SPIKE Waite)2118 (Given - Provider: Rebekah Julio RN) QUEtiapine (SEROquel) tablet 50 mg 0137 (Given - (CANCELED) Provider: Rebekah 50 mg, Oral, Every 8 hours PRN, Sumanth, agitation, Starting on Thu01/29/21 at RN)0859 (Given by 1333, For 715 hours Other - Provider: SPIKE Waite) senna (SENOKOT) syrup 10 mL 10 mL, Oral, Nightly PRN, Constipation , Starting on Thu01/27/21 at 1119, For 30 days senna tablet 2 tablet 2117 (Given - 2 tablet, Oral, Nightly PRN, Provider: Rebekah Constipation, Starting on Thu01/27/21 at Christie mcclendon RN) 1119, For 30 days Order Group 1: ondansetron (ZOFRAN) injection 4 mgJump to med 4 mg, Intravenous, Every 8 hours PRN, Nausea, Vomiting, Starting on Thu02/01/21 at 0959, For 7 days
Administer if unable to tolerat e PO.
Or ondansetron (ZOFRAN) tablet 4 mgJump to med 4 mg, Oral, Every 8 hours PRN, Nausea , Vomiting, Starting on Thu02/01/21 at 0959, For 7 days
Administer if able to tolerate PO.
documented in this encounter Additional Health Concerns Last Indicated Resolved Time Infection Onset Date 02/01/2021 02/01/2021 11:51 AM EDT Respiratory Rule-Out 02/01/2021 documented as of this encounter
--- OUTSIDE RECORDS SUMMARY | 2021-04-25 22:31 | CCD ---
Author Author [facility] Organization [facility] Address Unknown Phone Unavailable Care Team Providers Care Education Supervisor Name Role Phone Chauncey Jones Unavailable PROBLEMS Type Condition ICD9-CM Code [id number] Code Onset Dates Condition S tatus W/U Status Risk SNOMED Code Notes Problem Gastroesophageal reflux disease without esophagitis K21.9 Active confirmed 126203225 Problem Other chronic pain G89.29 Active confirmed 8 8463337 Problem Vitamin D deficiency E55.9 Active confirmed 17272302 Problem Benign prostatic hyperplasia with lower urinary tract symptoms N40.1 Active confirmed 18280108582363 Problem Hypercholesterolemia E78.00 Active confirmed 27728947 Problem Gastroparesis K31.84 Active confirmed 699733 006 Problem Intestinal malabsorption, unspecified type K90.9 Active confirmed 443375234 Problem Diabetic nephropathy associated with type 2 diabetes m ellitus E11.21 Active confirmed 425630301 Problem Unspecified cirrhosis of liver K74.60 Active confir med 28312189 Problem Liver lesion K76.9 Active confirmed 0737316 00 Problem Orthostatic hypotension I95.1 Active confirmed 97464599 Problem Other cirrhosis of liver K74.69 Active confirmed 64185978 Problem Depression F32.9 Active confirmed 50382005 Problem Cervical spinal stenosis M48.02 Active confirmed 54844054 Problem Myalgia, other site M79.18 Active confirmed 05712312 Problem Intervertebral disc disorder with radiculopathy of lumbosacral region M51.17 Active confirmed 07753418976934729 Problem Diabetic foot ulcer E11.621 Active confirmed 870986925 Problem Primary insomnia F51.01 Active confirmed 397 2004 Problem Spinal stenosis of lumbar re gion, unspecified whether neurogenic claudication present M48.061 Active confirmed 08125781 Problem Long-term current use of insulin for diabetes mellitus Z79.4 Active confirmed 545556181 Problem Intervertebral disc disorder with radiculopathy of lumbar region M51.16 Active confirmed 069079107797417 Problem Chronic obstructive pulmonary disease, unspecified COPD ty pe J44.9 Active confirmed 76928347 Problem Bilateral carpal tunnel syndrome G56.03 Active confirmed 78283377115278625 Problem Essential hypertension I10 Active confirmed 80286604 Problem Lesion of right ulnar nerve G56.21 Active conf irmed 202354842039306 Problem Benign prostatic hyperplasia , presence of lower urinary tract symptoms unspecified, unspecified morphology N40.0 Active confirmed 256957980 Problem Constipation, unspecified constipation type K59.00 Active confirmed 15064347 Problem Type 2 diabetes mellitus with hyperglycemia E11.65 Active confirmed 89766295 Problem 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 Activ e confirmed 261257140 Problem Constipation by delayed colonic transit K59.01 Active confirmed 01754729 Problem Myalgia M79.1 Active confirmed 24470985 Problem Slow transit constipation K59.01 Active confirmed 77585785 Problem Type 2 diabetes mellitus with diabetic autonomic (poly)neuropathy E11.43 Active confirmed 338441822 Problem Cervicalgia M54.2 Active confirmed 59630604 Problem Low back pain M54.5 Active confirmed 872355 009 Problem Dupuytrens contracture M72.0 Active confirmed 248661300 Problem Nonalcoholic fatty liver disease K76.0 Active conf irmed 424792179 Problem Dupuytren's contracture of left hand M72.0 Act alejandro confirmed [id number] ALLERGIES Allergen (clinical drug ingredient) Drug/Non Drug Allergy do cumented on EMR Reaction Allergy Type Onset Date Status versed psychotic reaction Non Drug Allergy Active plastic or vinyl tape tears skin Non Drug Allergy Active ENCOUNTERS from 1960 to 2021-02-12 Encounter Location Date Provider Diagnosis [address] [phone] [place] [address] Jan, Chauncey Jones IMMUNIZATIONS Vaccine Route Administration Date Status Hepatitis A & B 1mL Twinrix IM Intramuscular Apr 11, 2014 Adm inistered Hepatitis A & B 1mL Twinrix IM Intramuscular Aug 12, 2013 Adm inistered Hepatitis A & B 1mL Twinrix IM Intramuscular Jul 12, 2013 Adm inistered Moderna #1 dose COVID-19(given elsewhere) SARSCOV2 VAC 100MC G/0.5ML IM Unknown August 30, 2020 Administered Moderna #2 dose COVID-19(given elsewhere) SARSCOV2 VAC 100MC G/0.5ML IM Unknown September 25, 2020 Administered Pneumococcal Adult 0.5mL Pneumovax 23 Unknown September 28, 2012 Administered Influenza 18 yrs & older Flublok IM Intramuscular Mar 23, 2018 Administered Influenza 6mo & up Fluzone IM Intramuscular May 25, 2017 Admi nistered Influenza 6mo & up Fluzone IM Intramuscular Apr 30, 2015 Admi nistered Influenza 6mo & up Fluzone IM Intramuscular Apr 11, 2014 Admi nistered SOCIAL HISTORY Tobacco Use: Social History Observation Description Date Details (start date - stop date) Former Smoker Sex Assigned At : Social History Observation Description Sex Assigned At Unknown Audit Question Answer Notes Total Score: 0 Interpretation: Alcohol Education Jew: Question Answer Notes Jew 08 Yazdanism Sexual Hx: Question Answer Notes Had sex in the last 12 months (vaginal, oral, or anal)? No Drug and Alcohol Question Answer Notes Total Score: 0 Interpretation: No problems reported Alcohol Screening: Question Answer Notes Did you have a drink containing alcohol in the past year? Ye s Points 5 Interpretation Positive How many drinks did you have on a typica l day when you were drinking in the past year? 5 or 6 (2 points) How often did you have a drink containing alcohol in t he past year? Two to three times per week (3 points) BMI Care Goal Follow-Up Question Answer Notes Above Normal BMI Follow-Up Dietary management educatio n, guidance, and counseling Tobacco Use: Question Answer Notes Are you a: former smoker How long has it been since you last smoked? > 10 years REASON FOR REFERRAL No Information VITAL SIGNS No information MEDICATIONS Medication SIG (Take, Route, Frequency, Duration) Notes Start Da te End Date Status MiraLax - 1 packet mixed with 8 ounces of fluid Orally Onc e a day for 30 days Active Cepacol Sore Throat 10-2.1 MG 1 lozenge as needed Mout h/Throat every 2 hrs for 5 days Jun, Not-Taking Compazine 25mg as directed October, Active Insulin Syringe 30G X 1/2" 1 ML as directed _ four times daily f or 90 day(s) Jul, Active HumaLOG 100 UNIT/ML per sliding scale Subcutaneous Before me als MDD: 100 units Active Roger Delica Lancets 1 1 lancet E11.8 fingerstick b lood glucose, TID for 90 days May, Active Compazine 25mg as directed October, Active Psyllium 51.7 % as directed Orally twice daily for 30 days Dec, Active Compazine 25mg 1 orally tid prn for 30 days May, Active Metamucil Fiber 51.7 % as directed Orally Daily for 30 days Active Gabapentin 300 MG 2 capsule Orally three times daily for 30 day( s) Dec, Active Gabapentin 600 MG 1 capsule Orally Three times a day MDD3 for 90 days Mar, Active Cymbalta 60 MG 1 tablet orally Once daily for 30 days 17 A 2018 Active HM Lidocaine Patch 4 % as directed Externally Daily for 30 days May, Active Glucometer one touch glucometer ICD:250.02 IDDM F SBS four times daily for 1 dose(s) Active Advair Diskus 500-50 MCG/DOSE 1 puff Inhalation Twice a day for 90 day(s) Mar, Active Cyclobenzaprine HCl 10 MG 1 tablet as needed Orally fo r spasms and pain every 6 hours as needed MDD3 for 30 days Jul, Active OneTouch Verio - 1 E11.8 fingerstick blood sugar TID for 90 days May, Active Albuterol Sulfate HFA 108 (90 Base) MCG/ACT 2 puffs In halation Every 4 hours as needed for 90 day(s) Active Tamsulosin HCl 0.4 MG 1 capsule Orally Once a day for 30 day(s) Sep, Not-Taking Meclizine HCl 25 mg 1 tablet as needed Orally Once a day for 30 days Active Rolling Walker 1 with brakes DX:M47.817 Daily Med#[id number] for 9 9 months Sep, Active Voltaren 1 % one application Transdermal to right hand TID IN N for 30 days Mar, Active Metoclopramide HCl 5 MG 1 tab Orally three times ruby ly 1 hour prior to meals for 30 days October, Active Atorvastatin Calcium 10 MG TAKE ONE TABLET BY MOUTH EV JAN DAY orally Daily for 90 day(s) Active Aspir-81 81 MG 1 tablet Orally Once a day for 90 days Active Lantus 100 UNIT/ML 30 units mdd 60 units Subcutaneous once daily Active Tamsulosin HCl 0.4 MG 1 capsule Orally Once a day for 30 day(s) Active PROCEDURES No Information RESULTS No Results REASON FOR VISIT Hospital follow up appointment MEDICAL (GENERAL) HISTORY Type Description Date Medical History COPD spirometry 02/14/15 Medical History Diabetes Mellitus type 2 since 1980 Medical History chronic hepatitis C genotype 1A liver cirrhosis F4, hepatitis A- hepatitis B negative diagnosed age 16 treated with HARVONI for 12 weeks 3-11/2014 Medical History DJD Medical History Dupuytren's contracture of hands and fee t Medical History Cellulitis of right forearm MRSA: severa l times in past Medical History CVA x2 in 2008 (no residual effects); an d again in 10/2014 Medical History EGD colonoscopy done 01/[address] Woodward Medical History Adjustment disorder with mixed anxiety/d epression Medical History Depression with prior suicidal attempts Medical History ETOH abuse Medical History Echo October 2014: EF 60% grade 1 diastolic dysfunction, borderline LVH (Dr. Cifuentes) Medical History -2017 Orthostatic Hypotension Medical History Gastroparesis (Dr. Gilmore at [facility]) Medical History Neurologist: Dr. John Alcantara in [place] Medical History [facility]: Dr. Santiago ([facility]) Medical History Pain management: Dr. Hightower Medical History Podiatry: Dr. Richmond Medical History Bilateral Carpal Tunnel Medical History Right UlnarNerve Entrapement Medical History Dupuytren's Contracture Left Hand Medical History KIDNEY FAILURE LEFT SIDE STAGE 2 Medical History BHP Medical History HTN Medical History Palliative Care: Antonietta Palmer NP Medical History 5-6 falls this year broke 5 ribs on left side during one of the falls. Surgical History Liver Biopsy 2007 Surgical History Tonsillectomy Surgical History Left hand surgery 08/16-08/17 Surgical History colonoscopy/endoscopy by Dr Woodward Surgical History Dupuytren's contracture release, left disla nd 01/26 Surgical History Colonoscopy: Nonthrombosed e xternal hemorrhoids in perianal, internal hemorrhoids 01/22/2016 Surgical History EGD: Normal esophagus, stomach, duodenum January 2016 Surgical History Carpal tunnel release and ulner nerve (r ight) 11/2018 Surgical History left hand duputens jenny relace 2020 Hospitalization History acute small/medium R posteri or temporal and parietal stroke 11/08/2014 Hospitalization History Due to stroke- 4 days 11/2014 Hospitalization History MRSA 2011, , Hospitalization History [facility]: suicidal thoughts 01/2015 Hospitalization History anxiety and depression 06/11/2015 Hospitalization History [facility] 02/15/16-02/22/16 Hospitalization History Admitted to [facility] for orthostatic hypo tension 10/25- 10/27 Hospitalization History Ketoacidosis and Pancreatitis 9 Hospitalization History Tachycardia Hospitalization History Gastroparesis flare and DKA 10/2019 Goals Section No Information Health Concerns No Information MEDICAL EQUIPMENT No Information MENTAL STATUS No Information FUNCTIONAL STATUS No Information ASSESSMENTS No Information PLAN OF TREATMENT Medication Medication Name Sig Start Date Stop Date Gabapentin 600 MG 1 capsule Orally Three times a day MDD3 for 90 days Mar, Next Appt Details Provider Name:Chauncey Jones, 2021-03-07 10 :15:00 AM, [address] [facility], , [place], [address], Insurance Providers Payer Name Payer Address Payer Phone Insured Name Patient Relati onship to Insured Coverage Start Date Coverage End Date MEDICAID [employer] [address] [facility] [id number] JUANA ROMEO OTHER1 JUANA ROMEO self
--- OUTSIDE RECORDS SUMMARY | 2021-04-25 22:33 | CCD ---
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 Name Role Phone Rogers Perry MD Unavailable Unavailable Rogers Perry MD Unavailable Unavailable Rogers Perry MD Unavailable Unavailable Rogers Perry MD Unavailable Unavailable Rogers Perry MD Unavailable Unavailable Rogers Perry MD Unavailable Unavailable Rogers Perry MD Unavailable Unavailable Rogers Perry MD Unavailable Unavailable Rogers Perry MD Unavailable Unavailable Rogers Perry MD Unavailable Unavailable Rogers Perry MD Unavailable Unavailable Rogers Perry MD Unavailable Unavailable Rafaela Massey MD Unavailable Unavailable Rafaela Massey MD Unavailable Unavailable Rafaela Massey MD Unavailable Unavailable Rafaela Massey MD Unavailable Unavailable Rafaela Massey MD Unavailable Unavailable Rafaela Massey MD Unavailable Unavailable Rafaela Massey MD Unavailable Unavailable Rafaela Massey MD Unavailable Unavailable Rafaela Massey MD Unavailable Unavailable Rafaela Massey MD Unavailable Unavailable Rafaela Massey MD Unavailable Unavailable Rafaela Massey MD Unavailable Unavailable Rafaela Massey MD Unavailable Unavailable Rafaela Massey MD Unavailable Unavailable Rafaela Massey MD Unavailable Unavailable Rafaela Massey MD Unavailable Unavailable Rafaela Massey MD Unavailable Unavailable Rafaela Massey MD Unavailable Unavailable Rafaela Massey MD Unavailable Unavailable HeRafaela wild MD Unavailable Unavailable HeRafaela wild MD Unavailable Unavailable HeitRafaela phillips MD Unavailable Unavailable HeitRafaela phillips MD Unavailable Unavailable HeitRafaela phillips MD Unavailable Unavailable HeRafaela wild MD Unavailable Unavailable HeitRafaela phillips MD Unavailable Unavailable HeitRafaela phillips MD Unavailable Unavailable JACKY MOSCOSO Unavailable Unavailable Jeremiah MARTINO [id number] Unavailable Unavailable BEMichael PADILLA MD Unavailable Unavailable BEUTMichael COSTA NICHOL MD Unavailable Unavailable BEUTMichael COSTA NICHOL MD Unavailable Unavailable BEUTMichael COSTA NICHOL MD Unavailable Unavailable BEUTMichael COSTA MD Unavailable Unavailable BEUTMichael COSTA MD Unavailable Unavailable BEUTMichael COSTA NICHOL MD Unavailable Unavailable BEUTMichael COSTA NICHOL MD Unavailable Unavailable BEUTMichael COSTA NICHOL MD Unavailable Unavailable BEUTMichael COSTA NICHOL Unavailable Unavailable BEUTMichael COSTA NICHOL MD Unavailable Unavailable BEUTMichael COSTA NICHOL MD Unavailable Unavailable BEUTMichael COSTA NICHOL MD Unavailable Unavailable BEUTMichael COSTA NICHOL Unavailable Unavailable BEUTMichael COSTA NCIHOL MD Unavailable Unavailable BEUTMichael COSTA NICHOL MD Unavailable Unavailable BEUTMichael COSTA NICHOL MD Unavailable Unavailable BEUTMichael COSTA NICHOL MD Unavailable Unavailable BEUTMichael COSTA NICHOL MD Unavailable Unavailable BEUTMichael COSTA NICHOL MD Unavailable Unavailable BEUTMichael COSTA NICHOL MD Unavailable Unavailable BEUTMichael COSTA NICHOL MD Unavailable Unavailable BEUTMichael COSTA NICHOL Unavailable Unavailable ESTRADA, D HEAVENLY Unavailable Unavailable ESTRADA, D HEAVENLY Unavailable Unavailable ESTRADA, D HEAVENLY Unavailable Unavailable ESTRADA, D HEAVENLY Unavailable Unavailable ESTRADA, D HEAVENLY Unavailable Unavailable ESTRADA, D HEAVENLY Unavailable Unavailable ESTRADA, D HEAVENLY Unavailable Unavailable ESTRADA, D HEAVENLY Unavailable Unavailable ESTRADA, D HEAVENLY Unavailable Unavailable ESTRADA, D HEAVENLY Unavailable Unavailable ESTRADA, D HEAVENLY Unavailable Unavailable ESTRADA, D HEAVENLY Unavailable Unavailable ESTRADA, D HEAVENLY Unavailable Unavailable ESTRADA, D HEAVENLY Unavailable Unavailable ESTRADA, D HEAVENLY Unavailable Unavailable ESTRADA, D HEAVENLY Unavailable Unavailable ESTRADA, D HEAVENLY Unavailable Unavailable ESTRADA, D HEAVENLY Unavailable Unavailable ESTRADA D HEAVENLY Unavailable Unavailable ESTRADA, D HEAVENLY Unavailable Unavailable Travis Gurmeet Emery Unavailable + TravisGurmeet Rupert Unavailable TravisGurmeet leonard Unavailable Rex, Sangeeta Ram MD Unavailable Rex, Sangeeta Ram MD Unavailable Rex, Sangeeta Ram MD Unavailable + Rex, Sangeeta Ram MD Unavailable Rex, Sangeeta Ram MD Unavailable + Rex, Sangeeta Ram MD Unavailable Rex, Sangeeta Ram MD Unavailable CANDIS GUZMÁN MD Unavailable Unavailable CANDIS GUZMÁN MD Unavailable Unavailable CANDIS GUZMÁN MD Unavailable Unavailable CANDIS GUZMÁN MD Unavailable Unavailable REINDL, RAFAELA MIGUEL Unavailable Unavailable REINDL, RAFAELA MIGUEL Unavailable Unavailable REINDL, RAFAELA MIGUEL Unavailable Unavailable REINDL, RAFAELA MIGUEL Unavailable Unavailable REINDL, RAFAELA MIGUEL Unavailable Unavailable REINDL, RAFAELA MIGUEL Unavailable Unavailable REINDL, RAFAELA MIGUEL Unavailable Unavailable REINDL, RAFAELA MIGUEL Unavailable Unavailable REINDL, RAFAELA MIGUEL Unavailable Unavailable REINDL, RAFAELA MIGUEL Unavailable Unavailable REINDL, RAFAELA MIGUEL Unavailable Unavailable REINDL, RAFAELA MIGUEL Unavailable Unavailable REINDL, RAFAELA MIGUEL Unavailable Unavailable REINDL, RAFAELA MIGUEL Unavailable Unavailable REINDL, RAFAELA MIGUEL Unavailable Unavailable REINDL, RAFAELA MIGUEL Unavailable Unavailable REINDL, RAFAELA MIGUEL Unavailable Unavailable REINDL, RAFAELA MIGUEL Unavailable Unavailable REINDL, RAFAELA MIGUEL Unavailable Unavailable REINDL, RAFAELA MIGUEL Unavailable Unavailable REINDL, RAFAELA MIGUEL Unavailable Unavailable REINDL, RAFAELA MIGUEL Unavailable Unavailable REINDL, RAFAELA MIGUEL Unavailable Unavailable REINDL, RAFAELA MIGUEL Unavailable Unavailable REINDL, RAFAELA MIGUEL Unavailable Unavailable REINDL, RAFAELA MIGUEL Unavailable Unavailable REINDL, RAFAELA MIGUEL Unavailable Unavailable REINDL, RAFAELA MIGUEL Unavailable Unavailable REINDL, RAFAELA MIGUEL Unavailable Unavailable MINGO, RAFAELA MIGUEL Unavailable Unavailable REINDL, RAFAELA MIGUEL Unavailable Unavailable REINDL, RAFAELA MIGUEL Unavailable Unavailable REINDL, RAFAELA MIGUEL Unavailable Unavailable REINDL, RAFAELA MIGUEL Unavailable Unavailable REINDL, RAFAELA MIGUEL Unavailable Unavailable REINDL, RAFAELA MIGUEL Unavailable Unavailable REINDL, RAFAELA MIGUEL Unavailable Unavailable REINDL, RAFAELA MIGUEL Unavailable Unavailable REINDL, RAFAELA MIGUEL Unavailable Unavailable REINDL, RAFAELA MIGUEL Unavailable Unavailable REINDL, RAFAELA MIGUEL Unavailable Unavailable REINDL, RAFAELA MIGUEL Unavailable Unavailable JACINTO, Susan RIVAS MD Unavailable Unavailable JACINTO, Susan RIVAS MD Unavailable Unavailable JACINTO, Susan RIVAS MD Unavailable Unavailable JACINTO, Susan RIVAS MD Unavailable Unavailable JACINTO, Susan RIVAS MD Unavailable Unavailable JACINTO, Susan RIVAS MD Unavailable Unavailable JACINTO, Susan RIVAS MD Unavailable Unavailable JACINTO, Susan RIVAS MD Unavailable Unavailable JACINTO, Susan RIVAS MD Unavailable Unavailable JACINTO, Susan RIVAS MD Unavailable Unavailable JACINTO, Susan RIVAS MD Unavailable Unavailable JACINTO, Susan RIVAS MD Unavailable Unavailable JACINTO, Susan RIVAS MD Unavailable Unavailable JACINTO, Susan RIVAS MD Unavailable Unavailable JACINTO, Susan RIVAS MD Unavailable Unavailable JACINTO, Susan RIVAS MD Unavailable Unavailable JACINTO, Susan RIVAS MD Unavailable Unavailable JACINTO, Susan RIVAS MD Unavailable Unavailable JACINTO, Susan RIVAS MD Unavailable Unavailable JACINTO, Susan RIVAS MD Unavailable Unavailable JACINTO, Susan RIVAS MD Unavailable Unavailable JACINTO, Susan RIVAS MD Unavailable Unavailable JACINTO, Susan RIVAS MD Unavailable Unavailable JACINTO, Susan RIVAS MD Unavailable Unavailable JACINTO, Susan RIVAS MD Unavailable Unavailable JACINTO, Susan RIVAS MD Unavailable Unavailable JACINTO, Susan RIVAS MD Unavailable Unavailable JACINTO, Susan RIVAS MD Unavailable Unavailable JACINTO, Susan RIVAS MD Unavailable Unavailable JACINTO, Susan RIVAS MD Unavailable Unavailable JACINTO, Susan RIVAS MD Unavailable Unavailable JACINTO, Susan RIVAS MD Unavailable Unavailable JACINTO, Susan RIVAS MD Unavailable Unavailable JACINTO, Susan RIVAS MD Unavailable Unavailable JACINTO, Susan RIVAS MD Unavailable Unavailable JACINTO, Susan RIVAS MD Unavailable Unavailable JACINTO, Susan RIVAS MD Unavailable Unavailable JACINTO, Susan RIVAS MD Unavailable Unavailable JACINTO, Susan RIVAS MD Unavailable Unavailable JACINTO, Susan RIVAS MD Unavailable Unavailable JACINTO, Susan RIVAS MD Unavailable Unavailable JACINTO, Susan RIVAS MD Unavailable Unavailable JACINTO, Susan RIVAS MD Unavailable Unavailable JACINTO, Susan RIVAS MD Unavailable Unavailable JACINTO, Susan RIVAS MD Unavailable Unavailable JACINTO, Susan RIVAS MD Unavailable Unavailable JACINTO, Susan RIVAS MD Unavailable Unavailable JACINTO, Susan RIVAS MD Unavailable Unavailable JACINTO, Susan RIVAS MD Unavailable Unavailable JACINTO, Susan RIVAS MD Unavailable Unavailable JACINTO, Susan RIVAS MD Unavailable Unavailable JACINTO, Susan RIVAS MD Unavailable Unavailable JACINTO, Susan RIVAS MD Unavailable Unavailable JACINTO, Susan RIVAS MD Unavailable Unavailable JACINTO, Susan RIVAS MD Unavailable Unavailable JACINTO, Susan RIVAS MD Unavailable Unavailable JACINTO, Susan RIVAS MD Unavailable Unavailable JACINTO, Susan RIVAS MD Unavailable Unavailable JACINTO, Susan RIVAS MD Unavailable Unavailable JACINTO, Susan RIVAS MD Unavailable Unavailable JACINTO, Susan RIVAS MD Unavailable Unavailable JACINTO, Susan RIVAS MD Unavailable Unavailable JACINTO, Susan RIVAS MD Unavailable Unavailable JACINTO, Susan RIVAS MD Unavailable Unavailable JACINTO, Susan RIVAS MD Unavailable Unavailable JACINTO, Susan RIVAS MD Unavailable Unavailable JACINTO, Susan RIVAS MD Unavailable Unavailable JACINTO, Susan RIVAS MD Unavailable Unavailable JACINTO, Susan RIVAS MD Unavailable Unavailable JACINTO, Susan RIVAS MD Unavailable Unavailable JACINTO, Susan RIVAS MD Unavailable Unavailable JACINTO, Susan RIVAS MD Unavailable Unavailable JACINTO, Susan RIVAS MD Unavailable Unavailable JACINTO, Susan RIVAS MD Unavailable Unavailable JACINTO, Susan RIVAS MD Unavailable Unavailable JACINTO, Susan RIVAS MD Unavailable Unavailable JACINTO, Susan RIVAS MD Unavailable Unavailable JACINTO, Susan RIVAS MD Unavailable Unavailable JACINTO, Susan RIVAS MD Unavailable Unavailable JACINTO, Susan RIVAS MD Unavailable Unavailable JACINTO, Susan RIVAS MD Unavailable Unavailable JACINTO, Susan RIVAS MD Unavailable Unavailable JACINTO, Susan RIVAS MD Unavailable Unavailable JACINTO, Susan RIVAS MD Unavailable Unavailable JACINTO, Susan RIVAS MD Unavailable Unavailable JACINTO, Susan RIVAS MD Unavailable Unavailable JACINTO, Susan RIVAS MD Unavailable Unavailable JACINTO, Susan RIVAS MD Unavailable Unavailable MEAD, Mert PARKER Unavailable Unavailable REX [id number], E YO [id number] Unavailable Unavailabl e REX [id number], E YO [id number] Unavailable Unavailabl e REX [id number], E YO [id number] Unavailable Unavailabl sangeeta ROBLES .Gurmeet . Unavailable Unavailable Re-disclosure Warning The records that you are about to access may contain information from federally-assisted alcohol or drug abuse programs. If such information is present, then the following federally mandated warning applies: This information has been disclosed to you from records protected by federal confidentiality rules (42 CFR part 2). The federal rules prohibit you from making any further disclosure of this information unless further disclosure is expressly permitted by the written consent of the person to whom it pertains or as otherwise permitted by 42 CFR part 2. A general authorization for the release of medical or other information is NOT sufficient for this purpose. The Federal rules restrict any use of the information to criminally investigate or prosecute any alcohol or drug abuse patient.The records that you are about to access may contain highly sensitive health information, the redisclosure of which is protected by Article 27-F of the [facility] Public Health law. If you continue you may have access to information: Regarding HIV / AIDS; Provided by facilities licensed or operated by the [facility] Office of Mental Health; or Provided by the [facility] Office for People With Developmental Disabilities. If such information is present, then the following [facility] mandated warning applies: This information has been disclosed to you from confidential records which are protected by state law. State law prohibits you from making any further disclosure of this information without the specific written consent of the person to whom it pertains, or as otherwise permitted by law. Any unauthorized further disclosure in violation of state law may result in a fine or longterm sentence or both. A general authorization for the release of medical or other information is NOT sufficient authorization for further disc losure. Family History Family Member Name Family Member Gender Family Member Status Date o f Status Description Data Source(s) Unknown Male Problem MEDENT ([facility]) Unknown [facility], ) Unknown Unknown Problem MEDENT ([facility], ) Unknown Unknown Problem MEDENT ([facility], ) Unknown Unknown Problem MEDENT ([facility], ) Encounters Encounter Providers Location Date Indications Data Source(s ) Outpatient Attender: NICHOL ONTIVEROS MDAttender: CANDIS WALKER MD 04/24/2021 12:00:00 AM [facility] Outpatient Referrer: JACKY MOSCOSO 04/24/2021 12:00:00 AM [facility] Outpatient Attender: NICHOL ONTIVEROS MDAttender: CANDIS WALKER MD 04/04/2021 12:00:00 AM [facility] Outpatient Referrer: JACKY MOSCOSO 04/04/2021 12:00:00 AM [facility] Outpatient Referrer: JACKY MOSCOSO 03/13/2021 12:00:00 AM [facility] Outpatient Attender: CANDIS GUZMÁN MDAttender: NICHOL ONTIVEROS MD 03/13/2021 12:00:00 AM [facility] Outpatient Attender: NICHOL ONTIVEROS MDAttender: CANDIS WALKER MD 03/07/2021 12:00:00 AM [facility] Outpatient Referrer: JACKY MOSCOSO 03/07/2021 12:00:00 AM [facility] Unknown [address] [facility] [address] 02/12/2021 12:00:00 AM EDT eCW1 ([facility]) Inpatient Attender: Hermelinda Perry MDAtt tuyet: NICHOL ONTIVEROS MDAttender: CANDIS GUZMÁN MDAttender: Yo Goodman MDAttender: YO GOODMAN [id number]: Rupert RoblesAttender: RUPERT ROBLES .Admitter: CANDIS GUZMÁN MDReferrer: HEAVENLY PEREZD [id number] 01/27/2021 12:00:00 AM EDT - 02/01/2021 01:30:00 PM [facility] Patient discharged. Outpatient Attender: ROB CASEY MD 01/21/2021 12:00:00 AM [facility] Unknown [address] [facility] [address] 01/07/2021 12:00:00 AM EDT eCW1 ([facility]) Outpatient Attender: ROB CASEY MD 01/03/2021 12:00:00 AM [facility] Unknown [address] [facility] [address] 01/01/2021 12:00:00 AM EDT eCW1 ([facility]) [place] [address] [facility] [address] 12/28/2020 12:00:00 AM EDT eCW1 ([facility]) [place] [address] [facility] [address] 12/28/2020 12:00:00 AM EDT eCW1 ([facility] [place] [address] [facility] [address] 12/26/2020 12:00:00 AM EDT eCW1 ([facility]) [place] [address] [facility] [address] 12/26/2020 12:00:00 AM EDT eCW1 ([facility]) Outpatient [address] [facility] [address] 12/14/2020 12:00:00 AM EDT eCW1 ([facility]) [place] [address] [facility] [address] 12/10/2020 12:00:00 AM EDT eCW1 ([facility]) [place] [address] [facility] [address] 11/28/2020 12:00:00 AM EDT eCW1 ([facility]) Outpatient Attender: ROB CASEY MD [id number] 11/22/2020 12:00: 00 AM EDT Palmar fascial fibromatosis (dupuytren) [facility] Palmar fascial fibromatosis (dupuytren) Outpatient Attender: ROB CASEY MD 11/16/2020 12:00:00 AM [facility] Outpatient Attender: ROB CASEY MD 11/08/2020 12:00:00 AM [facility] Outpatient Attender: ROB CASEY MD 10/22/2020 12:00:00 AM [facility] Unknown [address] [facility] [address] 10/19/2020 12:00:00 AM EDT eCW1 ([facility]) [place] [address] [facility] [address] 10/19/2020 12:00:00 AM EDT eCW1 ([facility]) Outpatient Attender: ROB CASEY MD 10/15/2020 12:00:00 AM [facility] Outpatient Attender: ROB CASEY MD [id number] 09/28/2020 12:00:00 AM [facility] Unknown [address] [facility] [address] 09/28/2020 12:00:00 AM EDT eCW1 ([facility]) Outpatient Attender: ROB CASEY MD [id number] 09/24/2020 12:00:00 AM [facility] Outpatient Referrer: ROB CASEY MD 09/19/2020 09:59: 00 AM EDT Palmar fascial fibromatosis (dupuytren) [facility] Palmar fascial fibromatosis (dupuytren) Outpatient Attender: PARKER Paredes: ROB CASEY MD [id number] 09/15/2020 12:00:00 AM EDT - 09/16/2020 12:00:00 AM [facility] Unknown [address] [facility] [address] 09/14/2020 12:00:00 AM EDT eCW1 ([facility]) Outpatient [address] [facility] [address] 09/11/2020 12:00:00 AM EDT eCW1 ([facility]) Unknown [address] [facility] [address] 08/29/2020 12:00:00 AM EDT eCW1 ([facility]) Outpatient [address] [facility] [address] 08/21/2020 12:00:00 AM EST eCW1 ([facility]) [place] [address] [facility] [address] 07/25/2020 12:00:00 AM EST eCW1 ([facility]) Outpatient Attender: ROB CASEY MD [id number] 07/12/2020 12:00: 00 AM EST Palmar fascial fibromatosis (dupuytren) [facility] Palmar fascial fibromatosis (dupuytren) [place] [address] [facility] [address] 07/02/2020 12:00:00 AM EST eCW1 ([facility]) [place] [address] [facility] [place] [address] 07/02/2020 12:00:00 AM EST eCW1 ([facility]) [place] [address] [facility] [address] 06/19/2020 12:00:00 AM EST eCW1 ([facility]) Unknown [address] [facility] [address] 06/13/2020 12:00:00 AM EST eCW1 ([facility]) Unknown [address] [facility] [address] 06/12/2020 12:00:00 AM EST eCW1 ([facility]) Unknown [address] [facility] [address] 06/01/2020 12:00:00 AM EST eCW1 ([facility]) Outpatient Attender: ROB CASEY MD 06/01/2020 12:00:00 AM EST [facility] Unknown [address] [facility] [address] 05/28/2020 12:00:00 AM EST eCW1 ([facility]) Unknown [address] [facility] [address] 05/28/2020 12:00:00 AM EST eCW1 ([facility]) Unknown [address] [facility] [address] 05/25/2020 12:00:00 AM EST eCW1 ([facility]) Outpatient Attender: JOSÉ LUIS MARTNIO [id number] : Ron Massey MD [id number] 05/23/2020 12:00:00 AM EST Palmar fascial fibromatosis (dupu ytren) [facility] Palmar fascial fibromatosis (dupuytren) Unknown [address] [facility] [address] 05/23/2020 12:00:00 AM EST eCW1 ([facility]) TeleMedicine Phone E/M by Phys 21-30 Min [address] [place] [address] 05/22/2020 12:00:00 AM EST eCW1 ([facility]) Unknown [address] [facility] [address] 05/14/2020 12:00:00 AM EST eCW1 ([facility]) Outpatient Attender: JOSÉ LUIS MARTINO [id number]: Ron Massey MD 05/09/2020 12:00:00 AM [facility] Outpatient Attender: JOSÉ LUIS MARTINO [id number] 05/08/2020 12: 00:00 AM [facility] Outpatient Attender: ROB CASEY MDReferrer: Ron Massey MD 04/13/2020 12:00:00 AM [facility] Unknown [address] [facility] [address] 03/27/2020 12:00:00 AM EDT eCW1 ([facility]) Outpatient Attender: RAFAELA Meeks/Zuleima/Vinay/Adelia majano 03/19/2020 02:45:00 PM EDT [facility] ([facility], ) Outpatient Attender: ROB CASEY MDReferrer: Ron Massey MD 03/05/2020 12:00:00 AM [facility] Outpatient Attender: ROB CASEY MD 03/01/2020 12:00:00 AM [facility] Immunizations Vaccine Date Status Description Data Source(s) COVID-19 VACC,MRNA(MODERNA)/PF 01/08/2021 12:00:00 AM EDT completed [facility] COVID-19 VACC,MRNA(MODERNA)/PF 01/08/2021 12:00:00 AM EDT completed [facility] Moderna #2 dose COVID-19(given elsewhere) SARSCOV2 VAC 100MCG/0.5ML IM 09/25/2020 10:11:00 AM EDT completed eCW1 ([facility]) Moderna #2 dose COVID-19(given elsewhere) SARSCOV2 VAC 100MCG/0.5ML IM 09/25/2020 10:11:00 AM EDT completed eCW1 ([facility]) COVID-19 VACCINE Moderna 09/25/2020 12:00:00 AM EDT completed [facility] Vaccine Series Complete: YESThis Data wa s Submitted to [facility] [email or web address]. Moderna #1 dose COVID-19(given elsewhere) SARSCOV2 VAC 100MCG/0.5ML IM 08/30/2020 10:09:00 AM EDT completed eCW1 ([facility]) Moderna #1 dose COVID-19(given elsewhere) SARSCOV2 VAC 100MCG/0.5ML IM 08/30/2020 10:09:00 AM EDT completed eCW1 ([facility]) COVID-19 VACCINE Moderna 08/30/2020 12:00:00 AM EDT completed [facility] Vaccine Series Complete: NOThis Data was Submitted to [facility] [email or web address]. Medications Medication Brand Name Start Date Product Form Dose Route Admi nistrative Instructions Pharmacy Instructions Status Indications Reaction Description Data Source(s) Acetaminophen 325 MG / Hydrocodone Bitartrate 10 MG Or al Tablet 10-325 mg HYDROCODONE/ACETAMINOPHEN 04/20/2021 12:00:00 AM EDT tablet 120 TAKE ONE TABLET BY MOUTH FOUR TIMES A DAY NEEDED FOR PAIN, MAXIMUM DAILY DOSE = 4 TAKE ONE TABLET BY MOUTH FOUR TIMES A DAY NEEDED FOR PAIN, MAXIMUM DAILY DOSE = 4 SOLD: 04/20/2021 [facility] Acetaminophen 325 MG / Hydrocodone Bitartrate 10 MG Or al Tablet 10-325 mg HYDROCODONE/ACETAMINOPHEN 03/21/2021 12:00:00 AM EDT tablet 120 TAKE ONE TABLET BY MOUTH FOUR TIMES A DAY NEEDED PAIN MAXIMUM DAILY DOSE = 4 TAKE ONE TABLET BY MOUTH FOUR TIMES A DAY NEEDED PAIN MAXIMUM DAILY DOSE = 4 SOLD: 03/21/2021 [facility] 1 gram 02/22/2021 12:00:00 AM EDT tablet 90 TAKE TWO TABLETS BY MOUTH THREE TIMES A DAY TAKE TWO TABLETS BY MOUTH THREE TIMES A DAY SOLD: 02/24/2021 [facility] Acetaminophen 325 MG / Hydrocodone Bitartrate 10 MG Or al Tablet 10-325 mg HYDROCODONE/ACETAMINOPHEN 02/20/2021 12:00:00 AM EDT tablet 120 TAKE ONE TABLET BY MOUTH FOUR TIMES A DAY NEEDED FOR PAIN MAXIMUM DAILY DOSE = 4 TAKE ONE TABLET BY MOUTH FOUR TIMES A DAY NEEDED FOR PAIN MAXIMUM DAILY DOSE = 4 SOLD: 02/20/2021 [facility] 100 mg 02/12/2021 12:00:00 AM EDT tablet 30 TAKE ONE TABLET BY MOUTH EVERY DAY TAKE ONE TABLET BY MOUTH EVERY DAY SOLD: 02/12/2021 [facility] 9 mg iron-400 mcg 02/12/2021 12:00:00 AM EDT tablet 30 TAKE ONE TABLET BY MOUTH EVERY DAY TAKE ONE TABLET BY MOUTH EVERY DAY SOLD: 02/12/2021 [facility] atorvastatin 10 MG Oral Tablet ATORVASTATIN CALCIUM 02/11/2021 1 2:00:00 AM EDT tablet 30 TAKE ONE TABLET BY MOUTH EVERY D AY TAKE ONE TABLET BY MOUTH EVERY DAY SOLD: 02/12/2021 [facility] 50 mg 02/11/2021 12:00:00 AM EDT tablet 15 TAKE ONE-HALF TABLET BY MOUTH AT BEDTIME TAKE ONE-HALF TABLET BY MOUTH AT BEDTIME SOLD: 02/12/2021 [facility] 1 mg 02/11/2021 12:00:00 AM EDT tablet 30 TAKE ONE TABLET BY MOUTH EVERY DAY TAKE ONE TABLET BY MOUTH EVERY DAY SOLD: 02/12/2021 [facility] 10 mEq 02/11/2021 12:00:00 AM EDT tablet,ER particles/cry stals 120 TAKE FOUR TABLETS BY MOUTH EVERY DAY TAKE FOUR TABLETS BY MOUTH EVERY DAY SOLD: 02/11/2021 [facility] 400 mg (241.3 mg magnesium) 02/11/2021 12:00:00 AM EDT table t 30 TAKE ONE TABLET BY MOUTH EVERY DAY TAKE ONE TABLET BY MOUTH EVERY DAY SOLD: 02/11/2021 [facility] 300 mg 02/11/2021 12:00:00 AM EDT capsule 120 TAKE TWO CAPSULES BY MOUTH TWICE A DAY ONCE AT 9AM. AND 4PM. TAKE TWO CAPSULES BY MOUTH TWICE A DAY O NCE AT 9AM. AND 4PM. SOLD: 02/12/2021 [facility] 60 ACTUAT Fluticasone propionate 0.25 MG /ACTUAT / salmeterol 0.05 MG/ACTUAT Dry Powder Inhaler [Advair] 250-50 mcg/dose FLUTICASONE PROPION/SALMETEROL 02/11/2021 12:00:00 AM EDT blister with device 60 I NHALE ONE PUFF BY MOUTH TWICE A DAY INHALE ONE PUFF BY MOUTH TWICE A DAY SOLD: 02/11/2021 [facility] 5 mg 02/11/2021 12:00:00 AM EDT tablet 60 TAKE TWO TABLETS BY MOUTH EVERY 4 HOURS FOR PAIN >7/10, MAXIMUM DAILY DOSE = 6 TAKE TWO TABLETS BY MOUTH EVERY 4 HOURS FOR PAIN >7/10, MAXIMUM DAILY DOSE = 6 SOLD: 02/11/2021 [facility] 100 unit/mL 02/11/2021 12:00:00 AM EDT solution 10 INJECT 20 UNITS SUBCUTANEOUSLY AT BEDTIME INJECT 20 UNITS SUBCUTANEOUSLY AT BEDTIME SOLD: 02/12/2021 [facility] 60 mg 02/11/2021 12:00:00 AM EDT tablet 90 TAKE ONE-HALF TABLET BY MOUTH THREE TIMES A DAY TAKE ONE-HALF TABLET BY MOUTH THREE TIMES A DAY SOLD: 02/12/2021 [facility] 5 mg 02/11/2021 12:00:00 AM EDT tablet 30 TAKE ONE TABLET BY MOUTH AT BEDTIME TAKE ONE TABLET BY MOUTH AT BEDTIME SOLD: 02/12/2021 [facility] 80 mg 02/11/2021 12:00:00 AM EDT tablet,chewable 90 CHEW ONE TABLET BY MOUTH THREE TIMES A DAY CHEW ONE TABLET BY MOUTH THREE TIMES A DAY SOLD: 02/11/2021 [facility] 90 mcg/actuation 02/11/2021 12:00:00 AM EDT HFA aerosol inha ler 8 INHALE TWO PUFFS BY MOUTH FOUR TIMES A DAY NEEDED FOR SHORTNESS OF BREATH INHALE TWO PUFFS BY MOUTH FOUR TIMES A DAY NEEDED FOR SHORTNESS OF BREATH SOLD: 02/12/2021 [facility] 0.4 mg 02/11/2021 12:00:00 AM EDT capsule 30 TAKE ONE CAPSULE BY MOUTH EVERY DAY TAKE ONE CAPSULE BY MOUTH EVERY DAY SOLD: 02/12/2021 [facility] 5 mg 02/11/2021 12:00:00 AM EDT tablet 90 TAKE 1 TABLET BY MOUTH BEFORE MEALS TAKE 1 TABLET BY MOUTH BEFORE MEALS SOLD: 02/11/2021 [facility] 10 mg 02/11/2021 12:00:00 AM EDT tablet 60 TAKE TWO TABLETS BY MOUTH AT BEDTIME TAKE TWO TABLETS BY MOUTH AT BEDTIME SOLD: 02/12/2021 [facility] Insulin Glargine 100 UNT/ML Injectable S olution insulin glargine (LANTUS) injection 20 Units insulin glargine (LANTUS) injection 20 Units 09:00:00 PM EDT 20 U Subcutaneous active 20 Units, Subcutaneous, 2 Times Daily, First dose (after last modification) on Thu02/01/21 at 2100, For 57 doses
For blood glucose less than 70 mg/dL: follow hypoglycemia protocol ( ) and notify provider. For blood glucose values between 70 mg/dL and 100 mg/dL at bedtime: provide snack (15 grams of carbohydrates) with some protein. Administer FULL DOSE of insulin glargine (LANTUS) after snack. Record snack in I&O's. For blood glucose more than 400 mg/dL: notify provider
[facility] Medication administered onsite ondansetron (ZOFRAN) injection 4 mg 02/01/2021 09:59:54 AM EDT 4 mg Intravenous active [Order 1 Star t] Name: ondansetron (ZOFRAN) injection 4 mg Signed Summary: 4 mg, Intravenous, Every 8 hours PRN, Nausea, Vomiting, Starting on Thu02/01/21 at 0959, For 7 days
Administer if unable to tolerate PO.
[Order 1 End] [Order 2 Start] Name: ondansetron (ZOFRAN) tablet 4 mg Signed Summary: 4 mg, Oral, Every 8 hours PRN, Nausea, Vomiting, Starting on Thu02/01/21 at 0959, For 7 days
Administer if able to tolerate PO.
[Order 2 End] [facility] Medication administered onsite Acetaminophen 325 MG / Hydrocodone Ale trate 5 MG Oral Tablet HYDROcodone- acetaminophen (LORTAB) 5-325 MG per tablet 1 tablet HYDROcodone-acetaminophen (LORTAB) 5-325 MG per tablet 1 tablet 02/01/2021 07:44:15 AM EDT 1 {tbl} Oral active 1 tablet, Oral, Every 6 hours PRN, Moderate Pain (Pain Scale Score 4-6), Starting on Thu02/01/21 at 0744, For 3 days
Maximum daily dose of acetaminophen is 3,000 mg from all sources in 24 hours.
[facility] Medication administered onsite Acetaminophen 325 MG / Hydrocodone Ale trate 5 MG Oral Tablet HYDROcodone- acetaminophen (LORTAB) 5-325 MG per tablet 1 tablet HYDROcodone-acetaminophen (LORTAB) 5-325 MG per tablet 1 tablet 02/01/2021 04:15:00 AM EDT 1 {tbl} Oral completed 1 tablet, Oral, Once, On Thu02/01/21 at 0415, For 1 dose
Maximum daily dose of acetaminophen is 3,000 mg from all sources in 24 hours.
[facility] Medication administered onsite Insulin Glargine 100 UNT/ML Injectable S olution Insulin Glargine 100 UNIT/ML Subcutaneous Solution (LANTUS) Insulin Glargine 100 UNIT/ML Subcutaneou s Solution (LANTUS) 02/01/2021 12:00:00 AM EDT 20 U Subcutaneous active Inject 20 Units into the skin Two times daily as needed [facility] 100 mg 02/01/2021 12:00:00 AM EDT tablet 60 TAKE ONE TABLET BY MOUTH TWICE A DAY MAXIMUM DAILY DOSE = 2 TABLETS TAKE ONE TABLET BY MOUTH TWICE A DAY MAX IMUM DAILY DOSE = 2 TABLETS SOLD: 02/11/2021 [facility] 1 gram 02/01/2021 12:00:00 AM EDT tablet 180 TAKE TWO TABLETS BY MOUTH THREE TIMES A DAY WITH MEALS TAKE TWO TABLETS BY MOUTH THREE TIMES A DAY WITH MEALS SOLD: 02/11/2021 [facility] Acetaminophen 325 MG / Hydrocodone Ale trate 5 MG Oral Tablet HYDROcodone- acetaminophen (LORTAB) 5-325 MG per tablet 1 tablet HYDROcodone-acetaminophen (LORTAB) 5-325 MG per tablet 1 tablet 01/31/2021 11:15:00 PM EDT 1 {tbl} Oral completed 1 tablet, Oral, Once, On Thu01/31/21 at 2315, For 1 dose
Maximum daily dose of acetaminophen is 3,000 mg from all sources in 24 hours.
[facility] Medication administered onsite Dextromethorphan Hydrobromide 2 MG/ML / Guaifenesin 20 MG/ML Oral Suspension dextromethorphan-guaiFENesin (Robitussin DM) syrup 5 mL dextromethorphan- guaiFENesin (Robitussin DM) syrup 5 mL 01/31/2021 11:04:51 PM EDT 5 m L Oral active 5 mL, Oral, Four Times Daily-PRN, Cough, Starting on Thu01/31/21 at 2304, For 30 days [facility] Medication administered onsite Trazodone Hydrochloride 50 MG Oral Tablet trazodone (D ESYREL) tablet 25 mg trazodone (DESYREL) tablet 25 mg 01/31/2021 08:45:00 PM EDT 25 mg Oral completed 25 mg, Oral, Once, On Thu 1 at 2045, For 1 dose [facility] Medication administered onsite quetiapine 25 MG Oral Tablet QUEtiapine (SEROquel) tab let 25 mg QUEtiapine (SEROquel) tablet 25 mg 01/31/2021 04:15:00 PM EDT 25 mg Oral completed 25 mg, Oral, Once, On Thu01/31/21 at 1615, For 1 dose [facility] Medication administered onsite Magnesium Oxide 400 MG Oral Tablet Magnesium Oxide (MA G-OX) tablet 400 mg Magnesium Oxide (MAG-OX) tablet 400 mg 01/31/2021 10:45:00 AM EDT 4 00 mg Oral active 400 mg, Oral, D aily Standard, First dose on Thu01/31/21 at 1045, For 30 days [facility] Medication administered onsite Insulin Glargine 100 UNT/ML Injectable S olution insulin glargine (LANTUS) injection 15 Units insulin glargine (LANTUS) injection 15 Units 09:00:00 AM EDT 15 U Subcutaneous aborted 15 Units, Subcutaneous, 2 Times Daily, First dose on Thu01/31/21 at 0900, For 30 days
For blood glucose less than 70 mg/dL: follow hypoglycemia protocol (CM H-) and notify provider. For blood glucose values between 70 mg/dL and 100 mg/dL at bedtime: provide snack (15 grams of carbohydrates) with some protein. Administer FULL DOSE of insulin glargine (LANTUS) after snack. Record snack in I&O's. For blood glucose more than 400 mg/dL: notify provider
[facility] Medication administered onsite Sodium Chloride 1000 MG Oral Tablet Sodium Chloride 1 GM Oral Tablet Sodium Chloride 1 GM Oral Tablet 01/31/2021 12:00:00 AM EDT 2 g Oral active Take 2 tablets by mouth Three times daily with meals [facility] lacosamide 100 MG Oral Tablet Lacosamide 100 MG Oral T ablet (VIMPAT) Lacosamide 100 MG Oral Tablet (VIMPAT) 01/31/2021 12:00:00 AM EDT 100 mg Oral active Take 1 tablet by mouth Two Times Daily for 3 days, Max Daily Dose: 200 mg [facility] lacosamide 100 MG Oral Tablet Lacosamide (VIMPAT) tabl et 100 mg Lacosamide (VIMPAT) tablet 100 mg 01/30/2021 09:00:00 PM EDT 100 mg Oral active 100 mg, Oral, 2 Times Daily, First dose on Thu01/30/21 at 2100, For 30 days [facility] Medication administered onsite quetiapine 25 MG Oral Tablet QUEtiapine (SEROquel) tab let 50 mg QUEtiapine (SEROquel) tablet 50 mg 01/30/2021 05:00:00 PM EDT 50 mg Oral active 50 mg, Oral, Every 8 hours Standard (3 times per day), First dose (after last modification) on Thu01/30/21 at 1700, For 30 days [facility] Medication administered onsite Sodium Chloride 1000 MG Oral Tablet sodium chloride ta blet 2 g sodium chloride tablet 2 g 01/30/2021 08:00:00 AM EDT 2 g Oral active 2 g, Oral, Three Times Daily-With Meals, First dose (after last modification) on Thu01/30/21 at 0800, For 88 doses [facility] Medication administered onsite Trazodone Hydrochloride 50 MG Oral Tablet trazodone (D ESYREL) tablet 25 mg trazodone (DESYREL) tablet 25 mg 01/30/2021 01:45:00 AM EDT 25 mg Oral completed 25 mg, Oral, Once, On Thu 1 at 0145, For 1 dose [facility] Medication administered onsite Melatonin 5 MG Oral Tablet melatonin tablet 5 mg melatonin t ablet 5 mg 01/29/2021 09:28:17 PM EDT 5 mg Oral active 5 mg, Oral, Nightly PRN, Sleep, Starting on Thu01/29/21 at 2128, For 30 days [facility] Medication administered onsite Docusate Sodium 10 MG/ML Oral Suspension docusate (COLACE) 50 MG/5ML liquid 100 mg docusate (COLACE) 50 MG/5ML liquid 100 mg 01/29/2021 09:00:00 PM EDT 100 mg Oral active 100 mg, Or al, 2 Times Daily, First dose on Thu01/29/21 at 2100, For 30 days [facility] Medication administered onsite potassium chloride (KLOR-CON) packet 40 mEq [id number] 01/29/2021 09:00:00 PM EDT 40 meq Oral completed 40 mEq , Oral, 2 Times Daily, First dose on Thu01/29/21 at 2100, For 3 days
Mix in 4 ounces of water or juice
[facility] Medication administered onsite insulin lispro (HumaLOG) injection HIGH DOSE EATING IN SULIN patients 1-22 Units [id number] 01/29/2021 06:00:00 PM EDT U Subcutaneous active 1-22 Units, Subcutaneous, Three Times Daily-With Meals, First dose on Thu01/29/21 at 1800, For 30 days
Nursing MUST open the 'SQ Insulin Dosing Charts' Sidebar Report, or, the Patient Summary or Summary Report within the ED.
[facility] Medication administered onsite Cyclobenzaprine hydrochloride 10 MG Oral Tablet cyclobenzaprine (FLEXERIL) tablet 10 mg cyclobenzaprine (FLEXERIL) tablet 10 mg 01/29/2021 05:10:54 PM EDT 10 mg Oral active 10 mg, Oral, Thr ee Times Daily-PRN, Muscle spasms, Starting on Thu01/29/21 at 1710, For 30 days [facility] Medication administered onsite gabapentin 600 MG Oral Tablet gabapentin (NEURONTIN) t ablet 600 mg gabapentin (NEURONTIN) tablet 600 mg 01/29/2021 05:00:00 PM EDT 600 mg Oral active Alcohol Withdrawal Syndrome 600 mg, Oral, Three Times Daily Standard, Indications: Alcohol Withdrawal Syndrome, First dose on Thu01/29/21 at 1700, For 30 days [facility] Alcohol Withdrawal Syndrome Medication administered onsite potassium chloride (KLOR-CON) packet 40 mEq [id number] 01/29/2021 03:00:00 PM EDT 40 meq Oral completed 40 mEq , Oral, Once, On Thu01/29/21 at 1500, For 1 dose
Mix in 4 ounces of water or juice
[facility] Medication administered onsite Oxycodone Hydrochloride 5 MG Oral Tablet oxyCODONE (ROXICODONE) immediate release tablet 5 mg oxyCODONE (ROXICODONE) immediate release tablet 5 mg 01/29/2021 01:49:17 PM EDT 5 mg Oral aborted 5 mg, Oral, Every 4 hours PRN, Moderate Pain (Pain Scale Score 4-6), Starting on Thu01/29/21 at 1349, For 3 days
Oxycodone immediate release is limited to 10 mg per dose. Higher doses ( only) require Pain Service consultation and approval.
[facility] Medication administered onsite quetiapine 25 MG Oral Tablet QUEtiapine (SEROquel) tab let 25 mg QUEtiapine (SEROquel) tablet 25 mg 01/29/2021 01:45:00 PM EDT 25 mg Oral completed 25 mg, Oral, Once, On Thu01/29/21 at 1345, For 1 dose [facility] Medication administered onsite quetiapine 25 MG Oral Tablet QUEtiapine (SEROquel) tab let 50 mg QUEtiapine (SEROquel) tablet 50 mg 01/29/2021 01:33:13 PM EDT 50 mg Oral aborted 50 mg, Oral, Every 8 hours PRN, agitation, Starting on Thu01/29/21 at 1333, For 715 hours [facility] Medication administered onsite Sodium Chloride 1000 MG Oral Tablet sodium chloride ta blet 1 g sodium chloride tablet 1 g 01/29/2021 01:00:00 PM EDT 1 g Oral aborted 1 g, Oral, Three Times Daily-With Meals, First dose on Thu01/29/21 at 1300, For 30 days [facility] Medication administered onsite 0.4 ML Enoxaparin sodium 100 MG/ML Prefi lled Syringe enoxaparin sodium (LOVENOX) injection 40 mg enoxaparin sodium (LOVENOX) injection 40 mg 01/29/2021 12:00:00 PM EDT 40 mg Subcutaneous active 40 mg, Subcutaneous, Daily Standard, First dose on Thu01/29/21 at 1200, For 30 days [facility] Medication administered onsite Hydralazine Hydrochloride 20 MG/ML Injec table Solution hydrALAZINE (APRESOLINE) injection 10 mg hydrALAZINE (APRESOLINE) injection 10 mg 01/29/2021 11 :51:47 AM EDT 10 mg Intravenous active 10 m g, Intravenous, Every 6 hours PRN, Hypertension, SBP>160, Starting on Thu01/29/21 at 1151, For 671 hours
Dilute in 25-50 mL normal saline. Administer over 30 minutes.
[facility] Medication administered onsite labetalol (TRANDATE) injection 10 mg [id number] 01/29/2021 11:51: 36 AM EDT 10 mg Intravenous active 10 mg, I ntravenous, Every 6 hours PRN, High Blood Pressure, SBP>160, Starting on Thu01/29/21 at 1151, For 623 hours
Dilute in 25-50 mL normal saline. Administer over 30 minutes.
[facility] Medication administered onsite insulin lispro (HUMALOG) injection HIGH DOSE TUBE CONT INSULIN patients 1-16 Units [id number] 01/29/2021 09:00:00 AM EDT U Subcutaneous aborted 1-16 Units, Subcutaneous, Every 4 hours, First dose on Thu01/29/21 at 0900, For 30 days
Nursing MUST open the 'SQ Insulin Dosing Charts' Sidebar Report, or, the Patient Summary or Summary Report within the ED.
[facility] Medication administered onsite quetiapine 25 MG Oral Tablet QUEtiapine (SEROquel) tab let 25 mg QUEtiapine (SEROquel) tablet 25 mg 01/29/2021 08:46:47 AM EDT 25 mg Oral aborted 25 mg, Oral, Every 8 hours PRN, agitation, Starting on Thu01/29/21 at 0846, For 30 days [facility] Medication administered onsite thiamine (B-1) 500 mg in sodium chloride 0.9 % 50 mL IVPB 01/28/2021 12:30:00 PM EDT 500 mg Intravenous completed 50 0 mg, Intravenous, Administer over 30 Minutes, Every 8 hours, First dose (after last modification) on Thu01/28/21 at 1230, For 2 days [facility] Medication administered onsite lidocaine (LIDODERM) 5 % patch 1 patch [id number] 09:00:00 AM EDT 1 {patch} Transdermal active 1 patch, T ransdermal, Daily Standard, First dose on Thu01/28/21 at 0900, For 30 days
Apply to lower back 12 hours on - 12 hours off
[facility] Medication administered onsite pantoprazole 4 MG/ML Injectable Solution pantoprazole (PROTONIX) injection 40 mg pantoprazole (PROTONIX) injection 40 mg 01/28/2021 09:00:00 AM EDT 40 mg Intravenous aborted 40 mg, Intrav enous, Daily Standard, First dose on Thu01/28/21 at 0900, For 30 days [facility] Medication administered onsite multivitamin tablet 1 tablet [id number] 01/28/2021 09:00:00 AM EDT 1 {tbl} Oral active 1 tablet, Oral , Daily Standard, First dose on Thu01/28/21 at 0900, For 30 days [facility] Medication administered onsite Folic Acid 1 MG Oral Tablet folic acid (FOLVITE) table t 1 mg folic acid (FOLVITE) tablet 1 mg 01/28/2021 09:00:00 AM EDT 1 mg Oral active 1 mg, Oral, Daily Standard, First dose on Thu01/28/21 at 0900, For 30 days [facility] Medication administered onsite Acetaminophen 32 MG/ML Oral Solution arnold taminophen (TYLENOL) 160 MG/5ML solution (ADULT) 650 mg acetaminophen (TYLENOL) 160 MG/5ML solution (ADULT) 65 0 mg 01/28/2021 08:45:09 AM EDT 650 mg Oral aborted 650 mg, Oral, Every 6 hours PRN, Mild Pain (Pain Scale Score 1-3), Fever, Starting on Thu01/28/21 at 0845, For 30 days
Maximum dose of acetaminophen is 3,000 mg from all sources in 24 hours.
[facility] Medication administered onsite Piperacillin 3000 MG / tazobactam 375 MG Injection piperacillin-tazobactam (ZOSYN) IVPB 3.375 g (premix) piperacillin-tazobactam (ZOSYN) IVPB 3.3 75 g (premix) 01/28/2021 07:45:00 AM EDT 3.375 g Intravenous abo rted 3.375 g, Intravenous, Administer over 4 Hours, Every 8 hours, First dose on Thu01/28/21 at 0745, For 3 days
This specific formulation of piperacillin- tazobactam is compatible with Lactated Ringers.
[facility] Medication administered onsite Acetaminophen 10 MG/ML Injectable Soluti on acetaminophen (OFIRMEV) infusion 1,000 mg acetaminophen (OFIRMEV) infusion 1,000 mg 01/28/2021 04:15:00 AM EDT 1000 mg Intravenous completed 1,000 mg , Intravenous, Administer over 15 Minutes, Once, On Thu01/28/21 at 0415, For 1 dose
Maximum daily dose of acetaminophen from all sources 3,000 mg daily.
[facility] Medication administered onsite Levetiracetam 5 MG/ML Injectable Solutio n levETIRAcetam (KEPPRA) 500 mg in sodium chloride 100 mL (5 mg/mL) infusion (premix) levETIRAcetam (KEPPRA) 500 mg in sodium chloride 100 mL (5 mg/mL) infusion (premix) 01/27/2021 10:30:00 PM EDT 500 mg Intravenous aborted 500 mg, Intravenous, at 400 mL/hr, Every 12 hours, First dose on Thu01/27/21 at 2230, For 30 days [facility] Medication administered onsite Magnesium Hydroxide 80 MG/ML Oral Suspen aislinn magnesium hydroxide (MILK OF MAGNESIA) 400 MG/5ML oral suspension 45 mL magnesium hydroxide (MILK OF MAGNESIA) 400 MG/5ML oral suspension 45 mL 01/27/2021 10:00:00 PM EDT 45 mL Oral active 45 mL, Oral, N ightly, First dose on 01/27/21 at 2200, For 30 days
If serum creatinine > 2 notify provider before administering.
[facility] Medication administered onsite dexmedetomidine (PRECEDEX) in NaCl 0.9 % infusion 4 mcg/mL 1 [id number] 01/27/2021 06:30:00 PM EDT ug/kg/h Intravenous aborted 0.1-1.5 mcg/kg/hr 76.2 kg (1.905-28.575 mL/hr, rounded to 1.9-28.6 mL/hr), Intravenous, at 1.9- 28.6 mL/hr, Continuous, Starting on 01/27/21 at 1830, For 30 days
Starting dose = 0.2 mcg/kg/hrTitrate to maintain RASS of 0
[facility] Medication administered onsite insulin lispro (HUMALOG) injection HIGH DOSE NPO INSUL IN patients 1-12 Units [id number] 01/27/2021 05:00:00 PM EDT U Subcutaneous aborted 1-12 Units, Subcutaneous, Every 4 hours, First dose on 01/27/21 at 1700, For 30 days
Nursing MUST open the 'SQ Insulin Dosing Charts' Sidebar Report, or, the Patient Summary or Summary Report within the ED.
[facility] Medication administered onsite ondansetron (ZOFRAN) injection 4 mg [id number] 01/27/2021 04:27:3 6 PM EDT 4 mg Intravenous aborted 4 mg, In travenous, Every 8 hours PRN, Nausea, Vomiting, Starting on 01/27/21 at 1627, For 30 days [facility] Medication administered onsite Sodium Chloride 0.513 MEQ/ML Injectable Solution sodium chloride 3 % hypertonic solution sodium chloride 3 % hypertonic solution 01/27/2021 03:00:00 PM EDT 30 mL/h Intravenous aborted at 30 mL/hr, Intravenous, Continuous, Starting on 01/27/21 at 1500, For 30 days [facility] Medication administered onsite 2 ML Midazolam 1 MG/ML Injection midazolam (PF) (VERSE D) injection 2 mg midazolam (PF) (VERSED) injection 2 mg 01/27/2021 02:30:00 PM EDT 2 mg Intravenous completed 2 mg, Intrave nous, Once, On 01/27/21 at 1430, For 1 dose [facility] Medication administered onsite Acetaminophen 325 MG / Hydrocodone Ale trate 5 MG Oral Tablet HYDROcodone- acetaminophen (LORTAB) 5-325 MG per tablet 1 tablet HYDROcodone-acetaminophen (LORTAB) 5-325 MG per tablet 1 tablet 01/27/2021 12:04:00 PM EDT 1 {tbl} Oral aborted 1 tablet, Oral, Three Times Daily-PRN, Severe Pain (Pain Scale Score 7-10), For Back Pain, Starting on 01/27/21 at 1204, For 3 days
Maximum daily dose of acetaminophen is 3,000 mg from all sources in 24 hours.
[facility] Medication administered onsite sodium chloride 0.9 % bolus 1,000 mL [id number] 01/27/2021 12:00: 00 PM EDT 1000 mL Intravenous completed 1,000 mL , Intravenous, Once, On 01/27/21 at 1200, For 1 dose [facility] Medication administered onsite insulin lispro (HUMALOG) injection LOW DOSE NPO INSULI N patients 1-5 Units [id number] 01/27/2021 12:00:00 PM EDT U Subcutaneous aborted 1-5 Units, Subcutaneous, Every 4 hours, First dose on 01/27/21 at 1200, For 30 days
Nursing MUST open the 'SQ Insulin Dosing Charts' Sidebar Report, or, the Patient Summary or Summary Report within the ED.
[facility] Medication administered onsite Nicardipine hydrochloride 0.2 MG/ML Inje ctable Solution niCARdipine (CARDENE) 40 mg in sodium chloride 0.9 % 200 mL infusion (0.2 mg/mL) niCARdipine (CARDENE) 40 mg in sodium chloride 0.9 % 200 mL infusion (0.2 mg/mL) 01/27/2021 11:45:00 AM EDT mg/h Intravenous aborted 5-15 mg/hr (25-75 mL/hr), Intravenous, at 25-75 mL/hr, Continuous, Starting on 01/27/21 at 1145, For 30 days
Starting dose = 5 mg/hrTitrate to maintain SBP < 140Increase by 2.5 mg/hr Max Dose = 15 mg/hr Titrate down if SBP < 120
[facility] Medication administered onsite NaCl infusion 0.9 % [id number] 01/27/2021 11:30:00 AM EDT Intravenous aborted at 75 mL/hr, Intrave nous, Continuous, Starting on 01/27/21 at 1130, For 2 days [facility] Medication administered onsite Levetiracetam 500 MG Oral Tablet levETIRAcetam (KEPPRA ) tablet 500 mg levETIRAcetam (KEPPRA) tablet 500 mg 01/27/2021 11:30:00 AM EDT 500 m g Oral aborted 500 mg, Oral, 2 Times Daily, First dose on 01/27/21 at 1130, For 28 days [facility] Medication administered onsite Glucose 0.417 MG/MG Oral Gel glucose (GLUTOSE) 40 % or al gel 15 g glucose (GLUTOSE) 40 % oral gel 15 g 01/27/2021 11:21:27 AM EDT 15 g Oral active 15 g, Oral, PRN, Low blood s ugar, for gluose 55-69 mg/dl and able to take PO, Starting on Thu01/27/21 at 1121, For 30 days [facility] Medication administered onsite dextrose 50 % IV solution 25 mL [id number] 01/27/2021 11:21:26 AM E DT 25 mL Intravenous active 25 mL, Intrav enous, PRN, Other, blood glucose <55, Starting on 01/27/21 at 1121, For 30 days
Not for midline administration.
[facility] Medication administered onsite Glucagon 1 MG Injection glucagon (human recombinant) ( GLUCAGEN) injection 1 mg glucagon (human recombinant) (GLUCAGEN) injection 1 mg 01/27/2021 11:21:26 AM EDT 1 mg Intramuscular active 1 mg, Intramuscular, PRN, for glucose <55 without IV access, Starting on 01/27/21 at 1121, For 30 days [facility] Medication administered onsite 50 ML Magnesium Sulfate 40 MG/ML Injecti on magnesium sulfate infusion 2 g/50 mL (premix) magnesium sulfate infusion 2 g/50 mL (premix) 01/28/20 11:20:17 AM EDT 16 meq Intravenous aborted 16 m Eq, Intravenous, Every 1 hour PRN, for serum magnesium < 2 mEq/L, Starting on 01/27/21 at 1120, For 7 days
Serum Magnesium 1.6 - 1.9: give 16 mEq (2 g) q1h x 2
Serum Magnesium 1.5 and less: give 16 mEq (2 g) q1h x 3
[facility] Medication administered onsite Albuterol 0.83 MG/ML Inhalant Solution a lbuterol (PROVENTIL) nebulizer solution 2.5 mg albuterol (PROVENTIL) nebulizer solution 2.5 mg 2020 11:19:58 AM EDT 2.5 mg Nebulization active 2.5 mg, Nebulization, Every 2 hours PRN, Wheezing, Starting on 01/27/21 at 1119, For 6 days 21 hours [facility] Medication administered onsite sennosides, JAIL 8.6 MG Oral Tablet senna tablet 2 tablet sen na tablet 2 tablet 01/27/2021 11:19:26 AM EDT 2 {tbl} Oral active 2 tablet, Oral, Nightly PRN, Constipation, Starting on 01/27/21 at 1119, For 30 days [facility] Medication administered onsite sennosides, JAIL 35.2 MG/ML Oral Solution senna (SENOKO T) syrup 10 mL senna (SENOKOT) syrup 10 mL 01/27/2021 11:19:26 AM EDT 10 mL Oral active 10 mL, Oral, Nightly PRN, Constipation, Starting on 01/27/21 at 1119, For 30 days [facility] Medication administered onsite Bisacodyl 10 MG Rectal Suppository bisacodyl (DULCOLAX ) suppository 10 mg bisacodyl (DULCOLAX) suppository 10 mg 01/27/2021 11:19:26 AM EDT 10 mg Rectal active 10 mg, Rectal, Every 72 hours PRN, Constipation, Starting on 01/27/21 at 1119, For 30 days
Hold if patient has had BM within the past 2 days.
[facility] Medication administered onsite Acetaminophen 325 MG Oral Tablet acetaminophen (TYLENO L) tablet 650 mg acetaminophen (TYLENOL) tablet 650 mg 01/27/2021 11:19:09 AM EDT 65 0 mg Oral aborted 650 mg, Oral, E very 6 hours PRN, All Levels of Pain (Pain Scale Score 1-10), Starting on 01/27/21 at 1119, For 30 days
Maximum daily dose of acetaminophen is 3,000 mg from all sources in 24 hours.
[facility] Medication administered onsite ondansetron (ZOFRAN) 4 MG/2ML injection [id number] 01/28/20 10:35:05 AM EDT completed Starting on Marte n 01/27/21 at 1035, For 1 dose
Yadira Stein: cabinet override
[facility] Medication administered onsite ondansetron (ZOFRAN) injection 4 mg [id number] 01/27/2021 10:30:0 0 AM EDT 4 mg Given by IV completed 4 mg, Gi guero by IV, Once, On 01/27/21 at 1030, For 1 dose [facility] Medication administered onsite Hydralazine Hydrochloride 20 MG/ML Injec table Solution hydrALAZINE (APRESOLINE) injection 5 mg hydrALAZINE (APRESOLINE) injection 5 mg 01/27/2021 10: 30:00 AM EDT 5 mg Intravenous completed 5 mg, Intravenous, Once, On 01/27/21 at 1030, For 1 dose
Dilute in 25-50 mL normal saline. Administer over 30 minutes.
[facility] Medication administered onsite lactated ringers bolus 1,000 mL [id number] 01/27/2021 10:15:00 AM EDT 1000 mL Intravenous completed 1,000 mL , Intravenous, Once, On 01/27/21 at 1015, For 1 dose [facility] Medication administered onsite 2 ML Metoclopramide 5 MG/ML Prefilled Sy ringe metoclopramide (REGLAN) injection 10 mg metoclopramide (REGLAN) injection 10 mg 01/27/2021 09:15:00 AM E DT 10 mg Intravenous completed 10 mg, I ntravenous, Once, On 01/27/21 at 0915, For 1 dose [facility] Medication administered onsite Hydralazine Hydrochloride 20 MG/ML Injec table Solution hydrALAZINE (APRESOLINE) injection 5 mg hydrALAZINE (APRESOLINE) injection 5 mg 01/27/2021 09: 15:00 AM EDT 5 mg Intravenous completed 5 mg, Intravenous, Once, On 01/27/21 at 0915, For 1 dose
Dilute in 25-50 mL normal saline. Administer over 30 minutes.
[facility] Medication administered onsite Acetaminophen 10 MG/ML Injectable Soluti on acetaminophen (OFIRMEV) infusion 1,000 mg acetaminophen (OFIRMEV) infusion 1,000 mg 01/27/2021 09:15:00 AM EDT 1000 mg Intravenous completed 1,000 mg , Intravenous, Administer over 15 Minutes, Once, On 01/27/21 at 0915, For 1 dose
Maximum daily dose of acetaminophen from all sources 3,000 mg daily.
[facility] Medication administered onsite desmopressin (DDAVP) injection 30 mcg [id number] 01/27/2021 07:45 :00 AM EDT 30 ug Intravenous completed 30 mcg, Intravenous, Once, On 01/27/21 at 0745, For 1 dose [facility] Medication administered onsite Acetaminophen 325 MG / Hydrocodone Bitartrate 10 MG Or al Tablet 10-325 mg HYDROCODONE/ACETAMINOPHEN 01/13/2021 12:00:00 AM EDT tablet 120 TAKE ONE TABLET BY MOUTH FOUR TIMES A DAY NEEDED FOR PAIN MAXIMUM DAILY DOSE = 4 TAKE ONE TABLET BY MOUTH FOUR TIMES A DAY NEEDED FOR PAIN MAXIMUM DAILY DOSE = 4 SOLD: 01/13/2021 [facility] 600 mg 01/02/2021 12:00:00 AM EDT tablet 270 TAKE ONE TABLET BY MOUTH THREE TIMES A DAY TAKE ONE TABLET BY MOUTH THREE TIMES A DAY SOLD: 01/03/2021 [facility] 300 mg 12/28/2020 12:00:00 AM EDT capsule 90 TAKE TWO CAPSULES BY MOUTH THREE TIMES A DAY TAKE TWO CAPSULES BY MOUTH THREE TIMES A DAY SOLD: [facility] Psyllium 51.7 % UNK 12/26/2020 12:00:00 AM EDT active Psyllium 51.7 % eCW1 ([facility]) gabapentin 300 MG Oral Capsule Gabapentin 300 MG Gabapentin 300 MG 12/26/2020 12:00:00 AM EDT 2.0 {capsule} active G abapentin 300 MG eCW1 ([facility]) Psyllium 51.7 % UNK 12/26/2020 12:00:00 AM EDT active Psyllium 51.7 % eCW1 ([facility]) gabapentin 300 MG Oral Capsule Gabapentin 300 MG Gabapentin 300 MG 12/26/2020 12:00:00 AM EDT 2.0 {capsule} active G abapentin 300 MG eCW1 ([facility]) Psyllium 51.7 % UNK 12/26/2020 12:00:00 AM EDT active Psyllium 51.7 % eCW1 ([facility]) Psyllium 51.7 % UNK 12/26/2020 12:00:00 AM EDT active Psyllium 51.7 % eCW1 ([facility]) Psyllium 51.7 % UNK 12/26/2020 12:00:00 AM EDT active Psyllium 51.7 % eCW1 ([facility]) gabapentin 300 MG Oral Capsule Gabapentin 300 MG Gabapentin 300 MG 12/26/2020 12:00:00 AM EDT 2.0 {capsule} active G abapentin 300 MG eCW1 ([facility]) Psyllium 51.7 % UNK 12/26/2020 12:00:00 AM EDT active Psyllium 51.7 % eCW1 ([facility]) Psyllium 51.7 % UNK 12/26/2020 12:00:00 AM EDT active Psyllium 51.7 % eCW1 ([facility]) gabapentin 300 MG Oral Capsule Gabapentin 300 MG Gabapentin 300 MG 12/26/2020 12:00:00 AM EDT 2.0 {capsule} active G abapentin 300 MG eCW1 ([facility]) gabapentin 300 MG Oral Capsule Gabapentin 300 MG Gabapentin 300 MG 12/26/2020 12:00:00 AM EDT 2.0 {capsule} active G abapentin 300 MG eCW1 ([facility]) gabapentin 300 MG Oral Capsule Gabapentin 300 MG Gabapentin 300 MG 12/26/2020 12:00:00 AM EDT 2.0 {capsule} active G abapentin 300 MG eCW1 ([facility]) gabapentin 300 MG Oral Capsule Gabapentin 300 MG Gabapentin 300 MG 12/26/2020 12:00:00 AM EDT 2.0 {capsule} active G abapentin 300 MG eCW1 ([facility]) Acetaminophen 325 MG / Hydrocodone Bitartrate 10 MG Or al Tablet 10-325 mg HYDROCODONE/ACETAMINOPHEN 12/15/2020 12:00:00 AM EDT tablet 120 TAKE ONE TABLET BY MOUTH FOUR TIMES A DAY NEEDED FOR PAIN MAXIMUM DAILY DOSE = 4 TAKE ONE TABLET BY MOUTH FOUR TIMES A DAY NEEDED FOR PAIN MAXIMUM DAILY DOSE = 4 SOLD: 12/29/2020 [facility] Acetaminophen 325 MG / Hydrocodone Bitartrate 10 MG Or al Tablet 10-325 mg HYDROCODONE/ACETAMINOPHEN 11/16/2020 12:00:00 AM EDT tablet 120 TAKE ONE TABLET BY MOUTH FOUR TIMES A DAY NEEDED FOR PAIN MAXIMUM DAILY DOSE = 4 TABLETS TAKE ONE TABLET BY MOUTH FOUR TIMES A DA Y NEEDED FOR PAIN MAXIMUM DAILY DOSE = 4 TABLETS SOLD: 11/16/2020 [facility] Compazine 25mg UNK 10/19/2020 12:00:00 AM EDT active Compazine 25mg eCW1 ([facility]) Compazine 25mg UNK 10/19/2020 12:00:00 AM EDT active Compazine 25mg eCW1 ([facility]) Compazine 25mg UNK 10/19/2020 12:00:00 AM EDT active Compazine 25mg eCW1 ([facility]) Compazine 25mg UNK 10/19/2020 12:00:00 AM EDT active Compazine 25mg eCW1 ([facility]) Compazine 25mg UNK 10/19/2020 12:00:00 AM EDT active Compazine 25mg eCW1 ([facility]) Compazine 25mg UNK 10/19/2020 12:00:00 AM EDT active Compazine 25mg eCW1 ([facility]) Compazine 25mg UNK 10/19/2020 12:00:00 AM EDT active Compazine 25mg eCW1 ([facility]) Compazine 25mg UNK 10/19/2020 12:00:00 AM EDT active Compazine 25mg eCW1 ([facility]) 10 mg 10/19/2020 12:00:00 AM EDT tablet 90 TAKE ONE TABLET BY MOUTH THREE TIMES A DAY NEEDED TAKE ONE TABLET BY MOUTH THREE TIMES A DAY NEEDED S OLD: 10/19/2020 [facility] Compazine 25mg UNK 10/19/2020 12:00:00 AM EDT active Compazine 25mg eCW1 ([facility]) Compazine 25mg UNK 10/19/2020 12:00:00 AM EDT active Compazine 25mg eCW1 ([facility]) Compazine 25mg UNK 10/19/2020 12:00:00 AM EDT active Compazine 25mg eCW1 ([facility]) Compazine 25mg UNK 10/19/2020 12:00:00 AM EDT active Compazine 25mg eCW1 ([facility]) Compazine 25mg UNK 10/19/2020 12:00:00 AM EDT active Compazine 25mg eCW1 ([facility]) Compazine 25mg UNK 10/19/2020 12:00:00 AM EDT active Compazine 25mg eCW1 ([facility]) Compazine 25mg UNK 10/19/2020 12:00:00 AM EDT active Compazine 25mg eCW1 ([facility]) Compazine 25mg UNK 10/19/2020 12:00:00 AM EDT active Compazine 25mg eCW1 ([facility]) Compazine 25mg UNK 10/19/2020 12:00:00 AM EDT active Compazine 25mg eCW1 ([facility]) Compazine 25mg UNK 10/19/2020 12:00:00 AM EDT active Compazine 25mg eCW1 ([facility]) Compazine 25mg UNK 10/19/2020 12:00:00 AM EDT active Compazine 25mg eCW1 ([facility]) Compazine 25mg UNK 10/19/2020 12:00:00 AM EDT active Compazine 25mg eCW1 ([facility]) Compazine 25mg UNK 10/19/2020 12:00:00 AM EDT active Compazine 25mg eCW1 ([facility]) Compazine 25mg UNK 10/19/2020 12:00:00 AM EDT active Compazine 25mg eCW1 ([facility]) Compazine 25mg UNK 10/19/2020 12:00:00 AM EDT active Compazine 25mg eCW1 ([facility]) Compazine 25mg UNK 10/19/2020 12:00:00 AM EDT active Compazine 25mg eCW1 ([facility]) Acetaminophen 325 MG / Hydrocodone Bitartrate 10 MG Or al Tablet 10-325 mg HYDROCODONE/ACETAMINOPHEN 10/18/2020 12:00:00 AM EDT tablet 120 TAKE ONE TABLET BY MOUTH FOUR TIMES A DAY NEEDED FOR PAIN MAXIMUM DAILY DOSE = 4 TAKE ONE TABLET BY MOUTH FOUR TIMES A DAY NEEDED FOR PAIN MAXIMUM DAILY DOSE = 4 SOLD: 10/18/2020 [facility] 0.4 mg 10/04/2020 12:00:00 AM EDT capsule 30 TAKE ONE CAPSULE BY MOUTH EVERY DAY TAKE ONE CAPSULE BY MOUTH EVERY DAY SOLD: 12/03/2020 [facility] 0.4 mg 10/04/2020 12:00:00 AM EDT capsule 30 TAKE ONE CAPSULE BY MOUTH EVERY DAY TAKE ONE CAPSULE BY MOUTH EVERY DAY SOLD: 10/04/2020 [facility] Tamsulosin hydrochloride 0.4 MG Oral Capsule Tamsulosi n HCl 0.4 MG Tamsulosin HCl 0.4 MG 09/28/2020 12:00:00 AM EDT 1.0 {capsule} suspended Tamsulosin HCl 0.4 MG eCW1 ([facility]) Tamsulosin hydrochloride 0.4 MG Oral Capsule Tamsulosi n HCl 0.4 MG Tamsulosin HCl 0.4 MG 09/28/2020 12:00:00 AM EDT 1.0 {capsule} suspended Tamsulosin HCl 0.4 MG eCW1 ([facility]) Tamsulosin hydrochloride 0.4 MG Oral Capsule Tamsulosi n HCl 0.4 MG Tamsulosin HCl 0.4 MG 09/28/2020 12:00:00 AM EDT 1.0 {capsule} suspended Tamsulosin HCl 0.4 MG eCW1 ([facility]) Tamsulosin hydrochloride 0.4 MG Oral Capsule Tamsulosi n HCl 0.4 MG Tamsulosin HCl 0.4 MG 09/28/2020 12:00:00 AM EDT 1.0 {capsule} suspended Tamsulosin HCl 0.4 MG eCW1 ([facility]) Tamsulosin hydrochloride 0.4 MG Oral Capsule Tamsulosi n HCl 0.4 MG Tamsulosin HCl 0.4 MG 09/28/2020 12:00:00 AM EDT 1.0 {capsule} active Tamsulosin HCl 0.4 MG eCW1 ([facility]) Tamsulosin hydrochloride 0.4 MG Oral Capsule Tamsulosi n HCl 0.4 MG Tamsulosin HCl 0.4 MG 09/28/2020 12:00:00 AM EDT 1.0 {capsule} suspended Tamsulosin HCl 0.4 MG eCW1 ([facility]) Tamsulosin hydrochloride 0.4 MG Oral Capsule Tamsulosi n HCl 0.4 MG Tamsulosin HCl 0.4 MG 09/28/2020 12:00:00 AM EDT 1.0 {capsule} suspended Tamsulosin HCl 0.4 MG eCW1 ([facility]) Tamsulosin hydrochloride 0.4 MG Oral Capsule Tamsulosi n HCl 0.4 MG Tamsulosin HCl 0.4 MG 09/28/2020 12:00:00 AM EDT 1.0 {capsule} suspended Tamsulosin HCl 0.4 MG eCW1 ([facility]) Tamsulosin hydrochloride 0.4 MG Oral Capsule Tamsulosi n HCl 0.4 MG Tamsulosin HCl 0.4 MG 09/28/2020 12:00:00 AM EDT 1.0 {capsule} active Tamsulosin HCl 0.4 MG eCW1 ([facility]) Tamsulosin hydrochloride 0.4 MG Oral Capsule Tamsulosi n HCl 0.4 MG Tamsulosin HCl 0.4 MG 09/28/2020 12:00:00 AM EDT 1.0 {capsule} suspended Tamsulosin HCl 0.4 MG eCW1 ([facility]) Tamsulosin hydrochloride 0.4 MG Oral Capsule Tamsulosi n HCl 0.4 MG Tamsulosin HCl 0.4 MG 09/28/2020 12:00:00 AM EDT 1.0 {capsule} suspended Tamsulosin HCl 0.4 MG eCW1 ([facility]) Tamsulosin hydrochloride 0.4 MG Oral Capsule Tamsulosi n HCl 0.4 MG Tamsulosin HCl 0.4 MG 09/28/2020 12:00:00 AM EDT 1.0 {capsule} active Tamsulosin HCl 0.4 MG eCW1 ([facility]) Tamsulosin hydrochloride 0.4 MG Oral Capsule Tamsulosi n HCl 0.4 MG Tamsulosin HCl 0.4 MG 09/28/2020 12:00:00 AM EDT 1.0 {capsule} active Tamsulosin HCl 0.4 MG eCW1 ([facility]) Acetaminophen 325 MG / Hydrocodone Ale trate 5 MG Oral Tablet HYDROcodone- Acetaminophen 5-325 MG Oral Tablet (LORTAB) HYDROcodone-Acetaminophen 5-325 MG Oral Tablet (LORTAB) 09/19/2020 12:00:00 AM EDT 1 {tbl} Oral active Take 1 tablet by mouth every 6 (six) hours as needed for Pain for up to 3 days, Max Daily Dose: 4 tablets [facility] 10-325 mg 09/18/2020 12:00:00 AM EDT tablet 120 TAKE ONE TABLET BY MOUTH FOUR TIMES A DAY NEEDED FOR PAIN MAXIMUM DAILY DOSE = 4 TABLETS TAKE ONE TABLET BY MOUTH FOUR TIMES A DAY NEEDED FOR PAIN MAXIMUM DAILY DOSE = 4 TABLETS SOLD: 09/19/2020 [facility] 10-325 mg 08/23/2020 12:00:00 AM EST tablet 120 TAKE ONE TABLET BY MOUTH FOUR TIMES A DAY NEEDED FOR PAIN MAXIMUM DAILY DOSE = 4 TABLETS TAKE ONE TABLET BY MOUTH FOUR TIMES A DAY NEEDED FOR PAIN MAXIMUM DAILY DOSE = 4 TABLETS SOLD: 08/23/2020 [facility] 10-325 mg 07/25/2020 12:00:00 AM EST tablet 120 TAKE ONE TABLET BY MOUTH FOUR TIMES A DAY NEEDED FOR PAIN MAXIMUM DAILY DOSE = 4 TAKE ONE TABLET BY MOUTH FOUR TIMES A DAY NEEDED FOR PAIN MAXIMUM DAILY DOSE = 4 SOLD: 07/25/2020 [facility] Cepacol Sore Throat 10-2.1 MG UNK 07/02/2020 12:00:[address] 1.0 {lozenge_as_needed} suspended Cepacol So re Throat 10-2.1 MG eCW1 ([facility]) Cepacol Sore Throat 10-2.1 MG UNK 07/02/2020 12:00:[address] 1.0 {lozenge_as_needed} active Cepacol Sore Throat 10-2.1 MG eCW1 ([facility]) Cepacol Sore Throat 10-2.1 MG UNK 07/02/2020 12:00:[address] 1.0 {lozenge_as_needed} active Cepacol Sore Throat 10-2.1 MG eCW1 ([facility]) Cepacol Sore Throat 10-2.1 MG K 07/02/2020 12:00:[address] 1.0 {lozenge_as_needed} suspended Cepacol So re Throat 10-2.1 MG eCW1 ([facility]) Cepacol Sore Throat 10-2.1 MG UNK 07/02/2020 12:00:[address] 1.0 {lozenge_as_needed} active Cepacol Sore Throat 10-2.1 MG eCW1 ([facility]) Cepacol Sore Throat 10-2.1 MG UNK 07/02/2020 12:00:[address] 1.0 {lozenge_as_needed} suspended Cepacol So re Throat 10-2.1 MG eCW1 ([facility]) Cepacol Sore Throat 10-2.1 MG UNK 07/02/2020 12:00:[address] 1.0 {lozenge_as_needed} active Cepacol Sore Throat 10-2.1 MG eCW1 ([facility]) Cepacol Sore Throat 10-2.1 MG UNK 07/02/2020 12:00:[address] 1.0 {lozenge_as_needed} suspended Cepacol So re Throat 10-2.1 MG eCW1 ([facility]) Cepacol Sore Throat 10-2.1 MG UNK 07/02/2020 12:00:[address] 1.0 {lozenge_as_needed} active Cepacol Sore Throat 10-2.1 MG eCW1 ([facility]) Cepacol Sore Throat 10-2.1 MG UNK 07/02/2020 12:00:[address] 1.0 {lozenge_as_needed} active Cepacol Sore Throat 10-2.1 MG eCW1 ([facility]) Cepacol Sore Throat 10-2.1 MG UNK 07/02/2020 12:00:[address] 1.0 {lozenge_as_needed} active Cepacol Sore Throat 10-2.1 MG eCW1 ([facility]) Cepacol Sore Throat 10-2.1 MG UNK 07/02/2020 12:00:[address] 1.0 {lozenge_as_needed} suspended Cepacol So re Throat 10-2.1 MG eCW1 ([facility]) Cepacol Sore Throat 10-2.1 MG UNK 07/02/2020 12:00:[address] 1.0 {lozenge_as_needed} active Cepacol Sore Throat 10-2.1 MG eCW1 ([facility]) Cepacol Sore Throat 10-2.1 MG UNK 07/02/2020 12:00:[address] 1.0 {lozenge_as_needed} active Cepacol Sore Throat 10-2.1 MG eCW1 ([facility]) Cepacol Sore Throat 10-2.1 MG UNK 07/02/2020 12:00:[address] 1.0 {lozenge_as_needed} suspended Cepacol So re Throat 10-2.1 MG eCW1 ([facility]) Cepacol Sore Throat 10-2.1 MG UNK 07/02/2020 12:00:[address] 1.0 {lozenge_as_needed} suspended Cepacol So re Throat 10-2.1 MG eCW1 ([facility]) Cepacol Sore Throat 10-2.1 MG UNK 07/02/2020 12:00:[address] 1.0 {lozenge_as_needed} active Cepacol Sore Throat 10-2.1 MG eCW1 ([facility]) Cepacol Sore Throat 10-2.1 MG UNK 07/02/2020 12:00:[address] 1.0 {lozenge_as_needed} suspended Cepacol So re Throat 10-2.1 MG eCW1 ([facility]) Cepacol Sore Throat 10-2.1 MG UNK 07/02/2020 12:00:[address] 1.0 {lozenge_as_needed} suspended Cepacol So re Throat 10-2.1 MG eCW1 ([facility]) Cepacol Sore Throat 10-2.1 MG UNK 07/02/2020 12:00:[address] 1.0 {lozenge_as_needed} active Cepacol Sore Throat 10-2.1 MG eCW1 ([facility]) Prochlorperazine 10 MG Oral Tablet Proch lorperazine Maleate 10 MG Oral Tablet (COMPAZINE) Prochlorperazine Maleate 10 MG Oral Tablet (COMPAZINE) 06/28/2020 12:00:00 AM EST 10 mg Oral active Take 10 mg by mouth every 6 (six) hours as needed [facility] 10-325 mg 06/26/2020 12:00:00 AM EST tablet 120 TAKE ONE TABLET BY MOUTH FOUR TIMES A DAY NEEDED FOR PAIN MAXIMUM DAILY DOSE = 4 TAKE ONE TABLET BY MOUTH FOUR TIMES A DAY NEEDED FOR PAIN MAXIMUM DAILY DOSE = 4 SOLD: 06/26/2020 [facility] 60 mg 06/17/2020 12:00:00 AM EST capsule,delayed release (DR/EC) 30 TAKE ONE CAPSULE BY MOUTH EVERY DAY TAKE ONE CAPSULE BY MOUTH EVERY DAY SOLD: 06/17/2020 [facility] 10-325 mg 06/14/2020 12:00:00 AM EST tablet 40 TAKE ONE TABLET BY MOUTH FOUR TIMES A DAY NEEDED MAXIMUM DAILY DOSE = 4 TAKE ONE TABLET BY MOUTH FOUR TIMES A DAY NEEDED MAXIMUM DAILY DOSE = 4 SOLD: 06/14/2020 [facility] 10-325 mg 06/09/2020 12:00:00 AM EST tablet 24 TAKE ONE TABLET BY MOUTH FOUR TIMES A DAY NEEDED FOR PAIN MAXIMUM DAILY DOSE = 4 TAKE ONE TABLET BY MOUTH FOUR TIMES A DAY NEEDED FOR PAIN MAXIMUM DAILY DOSE = 4 SOLD: 06/09/2020 [facility] 10-325 mg 06/05/2020 12:00:00 AM EST tablet 20 TAKE ONE TABLET BY MOUTH FOUR TIMES A DAY MAXIMUM DAILY DOSE = 4 TAKE ONE TABLET BY MOUTH FOUR TIMES A DA Y MAXIMUM DAILY DOSE = 4 SOLD: 06/05/2020 [facility] 600 mg 05/30/2020 12:00:00 AM EST tablet 270 TAKE ONE TABLET BY MOUTH THREE TIMES A DAY TAKE ONE TABLET BY MOUTH THREE TIMES A DAY SOLD: 05/30/2020 [facility] 81 mg 05/28/2020 12:00:00 AM EST tablet,delayed release (DR/EC) 90 TAKE ONE TABLET BY MOUTH EVERY DAY TAKE ONE TABLET BY MOUTH EVERY DAY SOLD: 05/28/2020 [facility] Lidocaine Pain Relief 4 % External Patch [id number] 05/28/2020 12:00:00 AM EST active USE DIRECTED D [facility] 4 % 05/28/2020 12:00:00 AM EST adhesive patch,medicate d 5 USE DIRECTED DAILY USE DIRECTED DAILY SOLD: 05/28/2020 [facility] 5 mg 05/28/2020 12:00:00 AM EST tablet 90 TAKE ONE TABLET BY MOUTH THREE TIMES A DAY 1 HOUR PRIOR TO MEALS TAKE ONE TABLET BY MOUTH THREE TIMES A D AY 1 HOUR PRIOR TO MEALS SOLD: 05/28/2020 [facility] 60 mg 05/26/2020 12:00:00 AM EST capsule,delayed release (DR/EC) 30 TAKE ONE CAPSULE BY MOUTH EVERY DAY TAKE ONE CAPSULE BY MOUTH EVERY DAY SOLD: 05/28/2020 [facility] Diclofenac Sodium 0.01 MG/MG Topical Gel Diclofenac Sodium 1 % External Gel (VOLTAREN) Diclofenac Sodium 1 % External Gel (VOLTAREN) 05/26/20 12:00:00 AM EST active APPLY TO RIGHT AGUILAR ND THREE TIMES A DAY NEEDED [facility] 1 % 05/26/2020 12:00:00 AM EST gel 100 APPLY TO RIGHT HAND THREE TIMES A DAY NEEDED APPLY TO RIGHT HAND THREE TIMES A DAY NEEDED SOLD: 05/28/2020 [facility] Cyclobenzaprine hydrochloride 10 MG Oral Tablet CYCLOBENZAPR INE HCL 05/26/2020 12:00:00 AM EST tablet 120 TAKE ONE TABLET BY MOUTH EVERY 6 HOURS NEEDED FOR SPASMS AND PAIN TAKE ONE TABLET BY MOUTH EVERY 6 HOURS A S NEEDED FOR SPASMS AND PAIN SOLD: 05/28/2020 [facility] Compazine 25mg UNK 05/22/2020 12:00:00 AM EST active Compazine 25mg eCW1 ([facility]) HM Lidocaine Patch 4 % [facility] Lidocaine Patch 4 % 05/22/2020 12:00:[address] active HM Lidocaine Patch 4 % eC W1 ([facility]) Compazine 25mg UNK 05/22/2020 12:00:00 AM EST active Compazine 25mg eCW1 ([facility]) Compazine 25mg UNK 05/22/2020 12:00:00 AM EST active Compazine 25mg eCW1 ([facility]) Compazine 25mg UNK 05/22/2020 12:00:00 AM EST active Compazine 25mg eCW1 ([facility]) HM Lidocaine Patch 4 % [facility] Lidocaine Patch 4 % 05/22/2020 12:00:[address] active HM Lidocaine Patch 4 % eC W1 ([facility]) Compazine 25mg UNK 05/22/2020 12:00:00 AM EST active Compazine 25mg eCW1 ([facility]) Compazine 25mg UNK 05/22/2020 12:00:00 AM EST active Compazine 25mg eCW1 ([facility]) Compazine 25mg UNK 05/22/2020 12:00:00 AM EST active Compazine 25mg eCW1 ([facility]) HM Lidocaine Patch 4 % [facility] Lidocaine Patch 4 % 05/22/2020 12:00:[address] active HM Lidocaine Patch 4 % eC W1 ([facility]) Compazine 25mg UNK 05/22/2020 12:00:00 AM EST active Compazine 25mg eCW1 ([facility]) HM Lidocaine Patch 4 % [facility] Lidocaine Patch 4 % 05/22/2020 12:00:[address] active HM Lidocaine Patch 4 % eC W1 ([facility]) HM Lidocaine Patch 4 % [facility] Lidocaine Patch 4 % 05/22/2020 12:00:[address] active HM Lidocaine Patch 4 % eC W1 ([facility]) HM Lidocaine Patch 4 % HM Lidocaine Patch 4 % 05/22/2020 12:00:[address] active HM Lidocaine Patch 4 % eC W1 ([facility]) Compazine 25mg UNK 05/22/2020 12:00:00 AM EST active Compazine 25mg eCW1 ([facility]) Compazine 25mg UNK 05/22/2020 12:00:00 AM EST active Compazine 25mg eCW1 ([facility]) Compazine 25mg UNK 05/22/2020 12:00:00 AM EST active Compazine 25mg eCW1 ([facility]) HM Lidocaine Patch 4 % [facility] Lidocaine Patch 4 % 05/22/2020 12:00:[address] active HM Lidocaine Patch 4 % eC W1 ([facility]) Compazine 25mg UNK 05/22/2020 12:00:00 AM EST active Compazine 25mg eCW1 ([facility]) Compazine 25mg UNK 05/22/2020 12:00:00 AM EST active Compazine 25mg eCW1 ([facility]) HM Lidocaine Patch 4 % [facility] Lidocaine Patch 4 % 05/22/2020 12:00:[address] active HM Lidocaine Patch 4 % eC W1 ([facility]) Compazine 25mg UNK 05/22/2020 12:00:00 AM EST active Compazine 25mg eCW1 ([facility]) HM Lidocaine Patch 4 % HM Lidocaine Patch 4 % 05/22/2020 12:00:[address] active HM Lidocaine Patch 4 % eC W1 ([facility]) Compazine 25mg UNK 05/22/2020 12:00:00 AM EST active Compazine 25mg eCW1 ([facility]) HM Lidocaine Patch 4 % HM Lidocaine Patch 4 % 05/22/2020 12:00:[address] active HM Lidocaine Patch 4 % eC W1 ([facility]) Compazine 25mg UNK 05/22/2020 12:00:00 AM EST active Compazine 25mg eCW1 ([facility]) HM Lidocaine Patch 4 % HM Lidocaine Patch 4 % 05/22/2020 12:00:[address] active HM Lidocaine Patch 4 % eC W1 ([facility]) HM Lidocaine Patch 4 % HM Lidocaine Patch 4 % 05/22/2020 12:00:[address] active HM Lidocaine Patch 4 % eC W1 ([facility]) HM Lidocaine Patch 4 % HM Lidocaine Patch 4 % 05/22/2020 12:00:[address] active HM Lidocaine Patch 4 % eC W1 ([facility]) HM Lidocaine Patch 4 % HM Lidocaine Patch 4 % 05/22/2020 12:00:[address] active HM Lidocaine Patch 4 % eC W1 ([facility]) Compazine 25mg UNK 05/22/2020 12:00:00 AM EST active Compazine 25mg eCW1 ([facility]) Compazine 25mg UNK 05/22/2020 12:00:00 AM EST active Compazine 25mg eCW1 ([facility]) HM Lidocaine Patch 4 % HM Lidocaine Patch 4 % 05/22/2020 12:00:[address] active HM Lidocaine Patch 4 % eC W1 ([facility]) Compazine 25mg UNK 05/22/2020 12:00:00 AM EST active Compazine 25mg eCW1 ([facility]) HM Lidocaine Patch 4 % HM Lidocaine Patch 4 % 05/22/2020 12:00:[address] active HM Lidocaine Patch 4 % eC W1 ([facility]) HM Lidocaine Patch 4 % HM Lidocaine Patch 4 % 05/22/2020 12:00:[address] active HM Lidocaine Patch 4 % eC W1 ([facility]) Compazine 25mg UNK 05/22/2020 12:00:00 AM EST active Compazine 25mg eCW1 ([facility]) Compazine 25mg UNK 05/22/2020 12:00:00 AM EST active Compazine 25mg eCW1 ([facility]) Compazine 25mg UNK 05/22/2020 12:00:00 AM EST active Compazine 25mg eCW1 ([facility]) HM Lidocaine Patch 4 % HM Lidocaine Patch 4 % 05/22/2020 12:00:[address] active HM Lidocaine Patch 4 % eC W1 ([facility]) Compazine 25mg UNK 05/22/2020 12:00:00 AM EST active Compazine 25mg eCW1 ([facility]) Compazine 25mg UNK 05/22/2020 12:00:00 AM EST active Compazine 25mg eCW1 ([facility]) Compazine 25mg UNK 05/22/2020 12:00:00 AM EST active Compazine 25mg eCW1 ([facility]) HM Lidocaine Patch 4 % HM Lidocaine Patch 4 % 05/22/2020 12:00:[address] active HM Lidocaine Patch 4 % eC W1 ([facility]) HM Lidocaine Patch 4 % HM Lidocaine Patch 4 % 05/22/2020 12:00:[address] active HM Lidocaine Patch 4 % eC W1 ([facility]) Compazine 25mg UNK 05/22/2020 12:00:00 AM EST active Compazine 25mg eCW1 ([facility]) Compazine 25mg UNK 05/22/2020 12:00:00 AM EST active Compazine 25mg eCW1 ([facility]) HM Lidocaine Patch 4 % HM Lidocaine Patch 4 % 05/22/2020 12:00:[address] active HM Lidocaine Patch 4 % eC W1 ([facility]) HM Lidocaine Patch 4 % HM Lidocaine Patch 4 % 05/22/2020 12:00:[address] active HM Lidocaine Patch 4 % eC W1 ([facility]) HM Lidocaine Patch 4 % HM Lidocaine Patch 4 % 05/22/2020 12:00:[address] active HM Lidocaine Patch 4 % eC W1 ([facility]) HM Lidocaine Patch 4 % HM Lidocaine Patch 4 % 05/22/2020 12:00:[address] active HM Lidocaine Patch 4 % eC W1 ([facility]) HM Lidocaine Patch 4 % HM Lidocaine Patch 4 % 05/22/2020 12:00:[address] active HM Lidocaine Patch 4 % eC W1 ([facility]) HM Lidocaine Patch 4 % HM Lidocaine Patch 4 % 05/22/2020 12:00:[address] active HM Lidocaine Patch 4 % eC W1 ([facility]) HM Lidocaine Patch 4 % HM Lidocaine Patch 4 % 05/22/2020 12:00:[address] active HM Lidocaine Patch 4 % eC W1 ([facility]) HM Lidocaine Patch 4 % HM Lidocaine Patch 4 % 05/22/2020 12:00:[address] active HM Lidocaine Patch 4 % eC W1 ([facility]) Compazine 25mg UNK 05/22/2020 12:00:00 AM EST active Compazine 25mg eCW1 ([facility]) Compazine 25mg UNK 05/22/2020 12:00:00 AM EST active Compazine 25mg eCW1 ([facility]) HM Lidocaine Patch 4 % HM Lidocaine Patch 4 % 05/22/2020 12:00:[address] active HM Lidocaine Patch 4 % eC W1 ([facility]) 0.4 mg 05/15/2020 12:00:00 AM EST capsule 30 TAKE ONE CAPSULE BY MOUTH EVERY DAY TAKE ONE CAPSULE BY MOUTH EVERY DAY SOLD: 09/28/2020 [facility] Cyclobenzaprine hydrochloride 10 MG Oral Tablet CYCLOBENZAPR INE HCL 05/15/2020 12:00:00 AM EST tablet 70 TAKE ONE TABLET BY MOUTH EVERY 6 HOURS NEEDED FOR SPASMS AND PAIN MAXIMUM DAILY DOSE = 3 TAKE ONE TABLET BY MOUTH EVERY 6 HOURS A S NEEDED FOR SPASMS AND PAIN MAXIMUM DAILY DOSE = 3 SOLD: 05/17/2020 [facility] 0.4 mg 05/15/2020 12:00:00 AM EST capsule 30 TAKE ONE CAPSULE BY MOUTH EVERY DAY TAKE ONE CAPSULE BY MOUTH EVERY DAY SOLD: 08/07/2020 [facility] 100 unit/mL 05/15/2020 12:00:00 AM EST solution 20 INJECT PER SLIDING SCALE BEFORE MEALS MAXIMUM DAILY DOSE = 100 UNITS INJECT PER SLIDING SCALE BEFORE MEALS MAXIMUM DAILY DOSE = 100 UNITS SOLD: 05/17/2020 [facility] Meclizine Hydrochloride 25 MG Oral Tablet MECLIZINE HCL 05/15/2020 12:00:00 AM EST tablet 30 TAKE ONE TABLET BY MOUTH AYESHA RY DAY NEEDED TAKE ONE TABLET BY MOUTH EVERY DAY NEEDED SOLD: 05/17/2020 [facility] 100 unit/mL 05/15/2020 12:00:00 AM EST solution 10 INJECT 30 UNITS TWO TIMES A DAY MAXIMUM DAILY DOSE = 60 UNITS INJECT 30 UNITS TWO TIMES A DAY MAXIMUM DAILY DOSE = 60 UNITS SOLD: 05/17/2020 [facility] 0.4 mg 05/15/2020 12:00:00 AM EST capsule 30 TAKE ONE CAPSULE BY MOUTH EVERY DAY TAKE ONE CAPSULE BY MOUTH EVERY DAY SOLD: 05/17/2020 [facility] atorvastatin 10 MG Oral Tablet ATORVASTATIN CALCIUM 05/15/2020 1 2:00:00 AM EST tablet 90 TAKE ONE TABLET BY MOUTH EVERY D AY TAKE ONE TABLET BY MOUTH EVERY DAY SOLD: 05/17/2020 [facility] Acetaminophen 325 MG / Hydrocodone Ale trate 10 MG Oral Tablet HYDROcodone- Acetaminophen 10-325 MG Oral Tablet (VICODIN) HYDROcodone-Acetaminophen 10-325 MG Oral Tablet (VICODIN) 05/07/2020 12:00:00 AM EST active TAKE ONE TABLET BY MOUTH FOUR TIMES A DAY NEEDED MAXIMUM DAILY DOSE 4 [facility] 10-325 mg 05/07/2020 12:00:00 AM EST tablet 120 TAKE ONE TABLET BY MOUTH FOUR TIMES A DAY NEEDED MAXIMUM DAILY DOSE = 4 TAKE ONE TABLET BY MOUTH FOUR TIMES A DAY NEEDED MAXIMUM DAILY DOSE = 4 SOLD: 05/07/2020 [facility] 10-325 mg 04/21/2020 12:00:00 AM EST tablet 90 TAKE ONE TABLET BY MOUTH THREE TIMES A DAY NEEDED FOR PAIN MAXIMUM DAILY DOSE = 3 TAKE ONE TABLET BY MOUTH THREE TIMES A DAY NEEDED FOR PAIN MAXIMUM DAILY DOSE = 3 SOLD: 04/21/2020 [facility] 40 mg 03/23/2020 12:00:00 AM EDT capsule,delayed release (DR/EC) 60 TAKE ONE CAPSULE BY MOUTH TWICE A DAY FOR GERD /GASTROPARESIS/ CHEST PAIN TAKE ONE CAPSULE BY MOUTH TWICE A DAY FOR GERD /GASTROPARESIS/ CHEST PAIN SOLD: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 W2xsgvn7bUPyEgX0A7J1LwY2dYTlXP4LS3L7xJWsYIN6HYAniOT+Zs9Vz4YkZOVdYEi1M4iyAVQjDNKt CbMeuS71P++7snuyaTB7G2d2ZAXCtPNtlXyIfeYwK6cFKPK0s9B1BYp/Nd3KLFL6qVz8fHGcFJMcXYb8 eN7pjXa5QmSbRJ81LORqVPnhcX0tJkl3C8Chd3UjDg 8bZu6icBIsVz4BRrEcVJC9vpHmZlTMAnY7mEaswvadJPF5Z9h6nJK4Uo64r5khjwSdr2TeVrB7ILvcVB YgBeRfuhIdERR3zrVvzR4yixAbKf7IESTyXEkaigUqJxCMEw2BBuHtXD88PvdwlM7bfBX+DQogICAgIC AgICAgICAgICAgICAgICAgICAgICAgICAgICAgICAg ICAgICAgICAgICAgICAgICAgICAgICAgICAgICAgICAgICAgICAgICAgICAgICAgICAgICAgICAgICAg ICAgDQogICAgICAgICAgICAgICAgICAgICAgICAgICAgICAgICAgICAgICAgICAgICAgICAgICAgICAg ICAgICAgICAgICAgICAgICAgICAgICAgICAgICAgIC AgICAgICAgICAgICAgDQogICAgICAgICAgICAgICAgICAgICAgICAgICAgICAgICAgICAgICAgICAgIC AgICAgICAgICAgICAgICAgICAgICAgICAgICAgICAgICAgICAgICAgICAgICAgICAgICAgICAgDQogIC AgICAgICAgICAgICAgICAgICAgICAgICAgICAgICAg ICAgICAgICAgICAgICAgICAgICAgICAgICAgICAgICAgICAgICAgICAgICAgICAgICAgICAgICAgICAg ICAgICAgDQogICAgICAgICAgICAgICAgICAgICAgICAgICAgICAgICAgICAgICAgICAgICAgICAgICAg ICAgICAgICAgICAgICAgICAgICAgICAgICAgICAgIC AgICAgICAgICAgICAgICAgDQogICAgICAgICAgICAgICAgICAgICAgICAgICAgICAgICAgICAgICAgIC AgICAgICAgICAgICAgICAgICAgICAgICAgICAgICAgICAgICAgICAgICAgICAgICAgICAgICAgICAgDQ ogICAgICAgICAgICAgICAgICAgICAgICAgICAgICAg ICAgICAgICAgICAgICAgICAgICAgICAgICAgICAgICAgICAgICAgICAgICAgICAgICAgICAgICAgICAg ICAgICAgICAgDQogICAgICAgICAgICAgICAgICAgICAgICAgICAgICAgICAgICAgICAgICAgICAgICAg ICAgICAgICAgICAgICAgICAgICAgICAgICAgICAgIC AgICAgICAgICAgICAgICAgICAgDQogICAgICAgICAgICAgICAgICAgICAgICAgICAgICAgICAgICAgIC AgICAgICAgICAgICAgICAgICAgICAgICAgICAgICAgICAgICAgICAgICAgICAgICAgICAgICAgICAgIC AgDQogICAgICAgICAgICAgICAgICAgICAgICAgICAg ICAgICAgICAgICAgICAgICAgICAgICAgICAgICAgICAgICAgICAgICAgICAgICAgICAgICAgICAgICAg UDBmVFNpQLLaHLCgNUg6H4fgLZTqSOGpPL6dSEw6Vg5+GIcMOxScSPB1obPfrI6PKL7qv8HwRLptPEZl b4UuWFc6FK0XTQPaZVfwIJ3XGXybiw1FWUMpLOSwuI YSw0xvEhUoNWX6UNKjZofqYP4JWMEnA7xutzHyHEAdHJHHSRsfBQQMLVggVLVQEQWbHOQuNePnAsZpUM AcZHJrFFJSBSN2ACIzSdRmGDHcCXXbUT4MTOUxB783umXlDE8NMl8RGnAbUC8whe4SQZymLYUcHxaDOi o4OIuzGM8WzMFopLQ5QPFoOSPMSlHgU1lax1PqEIUf BBLYGNniHQ3Ka6PhaONsWOj+Ln3XJM1ut5CqLTt2NNBaGN6hth1RIDsDYgMvW4NkbKtcVWMdn9FsHUGz SAWInM2hAAN6CSW9WVawOXWzZI91CPTgNWMJGSD2BAltVFxaMrQmZIAnYhwzYHJTGLuYUlSiJ2Sks9Cw UxU5WJLwRrAaVBhdEFKuOpK1NS12zPtlQJ2PCXQaMV BgPM52SPU0STMdGv6MSt9SRbXaEE8ctp9HVURsNPHcQdcJYal6YRloUF2DtOFaP1SebPEpi8tZJcQkT0 ULBES4DDEgRv9AGFSvChNpWKTwDQwgKG6cOFAhUEURjVdwbuP2TR1EYA1sazAeDJ2GSaZdPv5iKs1EEa XjT8EsD7ClORZhSARQNQcdHN3XACzoSQ9sYL6Ab1RA vVNcaQ0cgd4PEZQpMYFySkxizp3VLeomI6R1tLtyBTHyAIonROETZVspJD5FTOMmBCF4LMO7WZPrXQJL DpMvI50kKN2DG7Nfq28bXtA9ZGAgPyGsYGyaGM20sRxgemYtoGKpwXyeDY1EGd0+DQplbmRvYmoNCnhy TFGBGwXfVMOPYeLmZESaYPQaHLKjUkJ9VmLnJm4DSR FcCRFkWVXpJxRnLMQvSESvRWetGUSbJAU3ATVaWPKyMJIeUA4XOmDbJJZjAtM1GdClRDAgGNOkoa5YHB NkMPBwFIP4TeStAMNvQXLlZIxtOBVxJWJgMdT7KKAcUSOyVS5HUxUuCATkRXY8QbYeKARbPPTghy1YMT BhUZHoSkToBIYrVDRdUUTeQEikWBYzWPE2MhS1UBSc SKQgUU6OMnNmIYHiQXO5EHvwYYLbNZTdbc7TECMvAKLuOQjwUBLwGZBvQLMgKNfzAKNrZHUfZpG2XNCq IKTiMO4HFrKdFQIvDQN0NcEoBQGzCQVvjb4YJYFlXAKpInguVpBrTQIeFPIkMSuxLSXpJLK0TZSqNRMs WXRbOD9WLyPdPPAaEAi4TMTrADIqPJRenq4EBKDtQZ ElYTt3FXEcXMIoGBPwOXvwAYRnVIVlGTN8VITtYPBmQR1SXjZgASWpCkUsIFJnWGCjNPCmbd2SXQKzTR SxOpbcWQSmTJCsUMQyUNojJRTjDFJ4IGI4UQDmYFVnBT2VRrVjZBVdQxXgDAOtVCAjIFXxil0LSQJwYB TgVLF7DpFlZRUdLLOuKUymQNCvZHM5NDc3GIUzUHCx UI1UGzUoBLPfQlI3HjTdEAIkPJMgru4JEOOyAMXzWyQeGdLfAQIpYCXjKClnNQJhPNT3XZI8PDZuDUHu EB3KAxYnVIVjGbq5IKIbHSDxDITbke6SRPDgIUQbCbt5BaOkUVOoPQGrQVmjYNXxPEC1SXD6CSOsAGBj LQ3LBuUfUFEaDtd4NiQhUCPyHDUgsr2CPTUdYXMmCJ g1NvMxLQMjCAUbUMgoRMVsJARxWWX1UIQcCLBrNC8WAlMkREJfKPHlMAFlTCGpTMIhqg7TJPNpCMN4WH K7LPCxVYRlQWTxROchQBIiQYHoPSN0QIBeSRDdAX0QPoUxTAXnRGFsNAVlOJRqPAMdwx7WTOEzEGQ7Tm X4GkNxPRAjFUFcYOppPZGqJEQtCKrjMIRuVHLrMJ0S XcXpAAYmEZO7XaarYHQfXTOapb7EGYOlKDB1DaB4HCSfLCSvAYJmUKvlCJLdESZdENU6FQSeBLWnLE2V TbEaZQAcBRIcAZlqSEMsSONadt4SYEMlCQH7FBnbRxEcMLGrWETvHMljIQKbQGT2KyXuFXKaCVHcTY6G CuHmEOFdXLx2AtLsWDWuQLEtxr7ZGJUyTZK3KUV8Fn XtZVXoDHZbRTeyNXEjNGU1VOZbZREsRVXfZL7NXuHjNCNgHiEsHEThVFPuCBWygw1HPEGxCWQ8VOn2HF NgVLAyJYZaKXwzWYTeRDGyXYKlXTClWNJyCS3BNhXhNTMyUlO2ZOkwNUXcQTVnpn0HuYAcbVnnkg9JJF uUDf3HaVucJNFfLKgmVe9gcCT3FVPxFWEBSp1EomKm GOXkQOBXRTcyHOLhJHDkIdBvHQpyEzCzPKRsKxS2Y5YhKUYxQGD4EcD2EFQeVcA2UZVmCJAdDHQpTSL4 ZjPhAiJ9HlV8OLN2SLu6HEzvHvD+VL1aUBw+Hd6Dw3QifjT1exLsKOk3FiOmKa6TLPAQK8XCTu== ID Date Data Source [id number] 02/01/2021 11:49:[address] [facility] Name Value Range Interpretation Code Description Data Krystle rce(s) Supporting Document(s) Glucose [Mass/volume] in Capillary blood by Glucometer 243 mg/dL 70- 140 H [facility] ID Date Data Source [id number] 02/01/2021 11:52:[address] [facility] Name Value Range Interpretation Code Description Data Krystle rce(s) Supporting Document(s) Specimen source [Identifier] of Unspecified specimen [facility] SARS-CoV-2 RNA 2019 nCoV Real-Time RT-PCR: NOT DETECTED [facility] Assay Performed [facility] Patients first test for [facility] Patient employed in healthcare setting [facility] Patient has symptoms related to [facility] When did you start to experience these symptoms [Date and time] [Phen X] [facility] Patient was hospitalized because of this condition [facility] patient was admitted to ICU for [facility] Patient resides in a congregate care setting [facility] status [facility] ID Date Data Source [id number] 02/01/2021 11:51:[address] [facility] Service Cmnt XXX-Imp : NoneRespiratory P CR Panel : PCR ResultsMicroorganism XXX Cult : See Labs Tab for 2019 nCoV RT-PCR resultsHAdV DNA QI TREY+non-probe : Not DetectedHCoV 229ERNA Nph QI TREY+non-probe : Not DetectedHCoV WCF8AHW Nph QI TREY+non-probe : Not LrocqtvkFPqWNZ83 RNA Nph QI TREY+non-probe : Not FpysqkomVCaLFU70 RNA Upper resp QI TREY+probe : Not DetectedhMPV RNA Nph QINAA+non-probe : Not DetectedRV+EV RNA Nph QI TREY+non-probe : Not DetectedFLUAV RNA Nph QI TREY+ non-probe : Not DetectedFLUBV RNA Nph QI TREY+non-probe : Not DetectedHPIV1 RNA NphQINAA+non-probe : Not DetectedHPIV2 RNA Nph QINAA+non-probe : Not DetectedHPVI3 RNA Nph TREY+non-probe : Not DetectedHPIV4 RNA Nph Q TREY+non-probe : Not DetectedRSV RNA Nph Q TREY+non-probe : Not DetectedB pert.PT PrmtNph Q TREY+non-probe : Not DetectedC pneum DNA Nph Q TREY+non-probe : Not DetectedM pneum DNA Nph Q TREY+non-probe : Not DetectedB ayosvLW579 DNA Nph TREY+non-probe : Not Detected Name Value Range Interpretation Code Description Data Krystle rce(s) Supporting Document(s) ID Date Data Source [id number] 02/01/2021 10:11:00 AM EDT [facility] Name Value Range Interpretation Code Description Data Krystle rce(s) Supporting Document(s) SARS-CoV-2 RNA 2019 nCoV Real-Time RT-PCR: NOT DETECTED [facility] This lab was ordered by [facility] and reported by [facility]. ID Date Data Source [id number] 02/01/2021 07:00:[address] [facility] Name Value Range Interpretation Code Description Data Krystle rce(s) Supporting Document(s) Glucose [Mass/volume] in Capillary blood by Glucometer 230 mg/dL 70- 140 H [facility] ID Date Data Source [id number] 02/01/2021 05:04:[address] [facility] Name Value Range Interpretation Code Description Data Krystle rce(s) Supporting Document(s) Bicarbonate [Moles/volume] in Serum 24 mmol/L 22-29 [facility] Chloride [Moles/volume] in Serum or Plasma 101 mmol/L 98-107 [facility] Creatinine [Mass/volume] in Serum or Plasma 0.51 mg/dL 0.70-1.20 L [facility] Glucose [Mass/volume] in Serum or Plasma 253 mg/dL 70-140 H [facility] Potassium [Moles/volume] in Serum or Plasma 3.6 mmol/L 3.4-5.1 [facility] Sodium [Moles/volume] in Serum or Plasma 137 mmol/L 136-145 [facility] Urea nitrogen [Mass/volume] in Serum or Plasma 7 mg/dL 8-23 L [facility] Anion gap 3 in Serum or Plasma 12 mmol/L 8-15 [facility] Osmolality of Serum or Plasma by calculation 291 mosm/kg 275-300 [facility] Creatinine/Urea nitrogen [Mass Ratio] in Serum or Plasma 14 [facility] Calcium [Mass/volume] in Serum or Plasma 8.6 mg/dL 8.8-10.2 L [facility] Glomerular filtration rate/1.73 sq M pre dicted among non-blacks [Volume Rate/Area] in Serum or Plasma by Creatinine-based formula (MDRD) >6 0 [facility] Glomerular filtration rate/1.73 sq M pre dicted among blacks [Volume Rate/Area] in Serum or Plasma by Creatinine-based formula (MDRD) >60 [facility] ID Date Data Source [id number] 02/01/2021 05:04:21 AM [facility] Name Value Range Interpretation Code Description Data Krystle rce(s) Supporting Document(s) Magnesium [Mass/volume] in Serum or Plasma 1.9 mg/dL 1.6-2.4 [facility] ID Date Data Source [id number] 02/01/2021 05:04:40 AM [facility] Name Value Range Interpretation Code Description Data Krystle rce(s) Supporting Document(s) Leukocytes [#/volume] in Blood by Automated count 4.7 10*3/uL 4-10 [facility] Erythrocytes [#/volume] in Blood by Automated count 4.17 10*6/uL 4.6- 6.1 L [facility] Hemoglobin [Mass/volume] in Blood 13.2 g/dL 13.5-18 L [facility] Hematocrit [Volume Fraction] of Blood by Automated count 39.1 % 4 1-53 L [facility] Erythrocyte mean corpuscular volume [Entitic volume] by Auto mated count 93.8 fL 80-96 [facility] Erythrocyte mean corpuscular hemoglobin [Entitic mass] by Automated count 31.6 pg 27-33 [facility] Erythrocyte mean corpuscular hemoglobin concentration [Mass/volume] by Automated count 33.7 g/dL 32.0-36.0 [facility] Erythrocyte distribution width [Ratio] by Automated count 12.1 % 11.5-14.5 [facility] Platelets [#/volume] in Blood by Automated count 122 10*3/uL 150-400 L [facility] ID Date Data Source [id number] 01/31/2021 09:39:28 PM [facility] Name Value Range Interpretation Code Description Data Krystle rce(s) Supporting Document(s) Glucose [Mass/volume] in Capillary blood by Glucometer 181 mg/dL 70- 140 H [facility] ID Date Data Source [id number] 01/31/2021 04:59:29 PM [facility] Value Range Interpretation Code Description Data Krystle rce(s) Supporting Document(s) Glucose [Mass/volume] in Capillary blood by Glucometer 278 mg/dL 70- 140 H [facility] ID Date Data Source [id number] 01/31/2021 12:08:44 PM [facility] Value Range Interpretation Code Description Data Krystle rce(s) Supporting Document(s) Glucose [Mass/volume] in Capillary blood by Glucometer 209 mg/dL 70- 140 H [facility] ID Date Data Source [id number] 01/31/2021 07:57:31 AM [facility] Value Range Interpretation Code Description Data Krystle rce(s) Supporting Document(s) Glucose [Mass/volume] in Capillary blood by Glucometer 246 mg/dL 70- 140 H [facility] ID Date Data Source [id number] 01/31/2021 06:50:39 AM [facility] Value Range Interpretation Code Description Data Krystle rce(s) Supporting Document(s) Leukocytes [#/volume] in Blood by Automated count 5.3 10*3/uL 4-10 [facility] Erythrocytes [#/volume] in Blood by Automated count 4.23 10*6/uL 4.6- 6.1 L [facility] Hemoglobin [Mass/volume] in Blood 13.3 g/dL 13.5-18 L [facility] Hematocrit [Volume Fraction] of Blood by Automated count 39.6 % 4 1-53 L [facility] Erythrocyte mean corpuscular volume [Entitic volume] by Auto mated count 93.7 fL 80-96 [facility] Erythrocyte mean corpuscular hemoglobin [Entitic mass] by Automated count 31.5 pg 27-33 [facility] Erythrocyte mean corpuscular hemoglobin concentration [Mass/volume] by Automated count 33.6 g/[facility] 32.0-[facility] E[facility]th[facility] distribution width [Ratio] by Automated count 12.6 % 11.5-14.5 [facility] Platelets [#/volume] in Blood by Automated count 116 10*3/uL 150-400 L [facility] ID Date Data Source [id number] 01/31/2021 07:55:55 AM EDT [facility] Name Value Range Interpretation Code Description Data Krystle rce(s) Supporting Document(s) Bicarbonate [Moles/volume] in Serum 22 mmol/L 22-29 [facility] Chloride [Moles/volume] in Serum or Plasma 101 mmol/L 98-107 [facility] Creatinine [Mass/volume] in Serum or Plasma 0.50 mg/dL 0.70-1.20 [facility] Glucose [Mass/volume] in Serum or Plasma 230 mg/dL 70-140 H [facility] Potassium [Moles/volume] in Serum or Plasma 3.8 mmol/L 3.4-5.1 [facility] Hemolyzed Sodium [Moles/volume] in Serum or Plasma 136 mmol/L 136-145 [facility] Urea nitrogen [Mass/volume] in Serum or Plasma 9 mg/dL 8-23 [facility] Anion gap 3 in Serum or Plasma 13 mmol/L 8-15 [facility] Osmolality of Serum or Plasma by calculation 288 mosm/kg 275-300 [facility] Creatinine/Urea nitrogen [Mass Ratio] in Serum or Plasma 17 [facility] Calcium [Mass/volume] in Serum or Plasma 8.7 mg/dL 8.8-10.2 [facility] Glomerular filtration rate/1.73 sq M pre dicted among non-blacks [Volume Rate/Area] in Serum or Plasma by Creatinine-based formula (MDRD) >6 0 [facility] Glomerular filtration rate/1.73 sq M pre dicted among blacks [Volume Rate/Area] in Serum or Plasma by Creatinine-based formula (MDRD) >60 [facility] ID Date Data Source [id number] 01/31/2021 07:55:[address] [facility] Name Value Range Interpretation Code Description Data Krystle rce(s) Supporting Document(s) Magnesium [Mass/volume] in Serum or Plasma 1.9 mg/dL 1.6-2.4 [facility] ID Date Data Source [id number] 01/30/2021 09:48:26 PM EDT [facility] system Value Range Interpretation Code Description Data Krystle rce(s) Supporting Document(s) Glucose [Mass/volume] in Capillary blood by Glucometer 265 mg/dL 70- 140 H [facility] ID Date Data Source [id number] [facility] Interpretation Code Description Data Krystle rce(s) Supporting Document(s) Glucose [Mass/volume] in Capillary blood by Glucometer 229 mg/dL 70- 140 H [facility] ID Date Data Source [id number] 01/30/2021 03:18:25 PM EDT Health system Value Range Interpretation Code Description Data Krystle rce(s) Supporting Document(s) [facility] [id number] [file] court [id number] [file] [id number] ID Date Data Source [id number] 01/30/2021 11:48:33 AM [facility] Name Value Range Interpretation Code Description Data Krystle rce(s) Supporting Document(s) Glucose [Mass/volume] in Capillary blood by Glucometer 202 mg/dL 70- 140 H [facility] ID Date Data Source [id number] 01/30/2021 06:22:32 AM [facility] Name Value Range Interpretation Code Description Data Krystle rce(s) Supporting Document(s) Leukocytes [#/volume] in Blood by Automated count 6.4 10*3/uL 4-10 [facility] Erythrocytes [#/volume] in Blood by Automated count 3.81 10*6/uL 4.6- 6.1 L [facility] Hemoglobin [Mass/volume] in Blood 12.1 g/dL 13.5-18 L [facility] Hematocrit [Volume Fraction] of Blood by Automated count 35.8 % 4 1-53 L [facility] Erythrocyte mean corpuscular volume [Entitic volume] by Auto mated count 94.1 fL 80-96 [facility] Erythrocyte mean corpuscular hemoglobin [Entitic mass] by Automated count 31.8 pg 27-33 [facility] Erythrocyte mean corpuscular hemoglobin concentration [Mass/volume] by Automated count 33.8 g/dL 32.0-36.0 [facility] distribution width [Ratio] by Automated count 12.6 % 11.5-14.5 [facility] Platelets [#/volume] in Blood by Automated count 112 10*3/uL 150-400 L [facility] ID Date Data Source [id number] 01/30/2021 06:40:44 AM [facility] Value Range Interpretation Code Description Data Krystle rce(s) Supporting Document(s) Bicarbonate [Moles/volume] in Serum 15 mmol/L 22-29 L [facility] Chloride [Moles/volume] in Serum or Plasma 104 mmol/L 98-107 [facility] Creatinine [Mass/volume] in Serum or Plasma 0.56 mg/dL 0.70-1.20 L [facility] Glucose [Mass/volume] in Serum or Plasma 180 mg/dL 70-140 H [facility] Potassium [Moles/volume] in Serum or Plasma 3.3 mmol/L 3.4-5.1 [facility] Sodium [Moles/volume] in Serum or Plasma 133 mmol/L 136-145 [facility] Urea nitrogen [Mass/volume] in Serum or Plasma 10 mg/dL 8-23 [facility] Anion gap 3 in Serum or Plasma 14 mmol/L 8-15 [facility] Osmolality of Serum or Plasma by calculation 279 mosm/kg 275-300 [facility] Creatinine/Urea nitrogen [Mass Ratio] in Serum or Plasma 18 [facility] Calcium [Mass/volume] in Serum or Plasma 8.0 mg/dL 8.8-10.2 [facility] Glomerular filtration rate/1.73 sq M pre dicted among non-blacks [Volume Rate/Area] in Serum or Plasma by Creatinine-based formula (MDRD) >6 0 [facility] Glomerular filtration rate/1.73 sq M pre dicted among blacks [Volume Rate/Area] in Serum or Plasma by Creatinine-based formula (MDRD) >60 [facility] ID Date Data Source [id number] 01/30/2021 06:40:44 AM [facility] Value Range Interpretation Code Description Data Krystle rce(s) Supporting Document(s) Magnesium [Mass/volume] in Serum or Plasma 2.1 mg/dL 1.6-2.4 [facility] ID Date Data Source [id number] 01/29/2021 10:21:51 PM EDT [facility] Name Value Range Interpretation Code Description Data Krystle rce(s) Supporting Document(s) Glucose [Mass/volume] in Capillary blood by Glucometer 154 mg/dL 70- 140 H [facility] ID Date Data Source [id number] 01/29/2021 06:56:05 PM [facility] Name Value Range Interpretation Code Description Data Krystle rce(s) Supporting Document(s) Potassium [Moles/volume] in Serum or Plasma 3.5 mmol/L 3.4-5.1 [facility] ID Date Data Source [id number] 01/29/2021 06:56:05 PM [facility] Name Value Range Interpretation Code Description Data Krystle rce(s) Supporting Document(s) Magnesium [Mass/volume] in Serum or Plasma 2.6 mg/dL 1.6-2.4 H [facility] ID Date Data Source [id number] 01/29/2021 04:19:25 PM [facility] Name Value Range Interpretation Code Description Data Krystle rce(s) Supporting Document(s) Glucose [Mass/volume] in Capillary blood by Glucometer 213 mg/dL 70- 140 H [facility] ID Date Data Source [id number] 01/29/2021 01:18:34 PM [facility] Name Value Range Interpretation Code Description Data Krystle rce(s) Supporting Document(s) Bicarbonate [Moles/volume] in Serum 12 mmol/L 22-29 L [facility] Chloride [Moles/volume] in Serum or Plasma 107 mmol/L 98-107 [facility] Creatinine [Mass/volume] in Serum or Plasma 0.73 mg/dL 0.70-1.20 [facility] Glucose [Mass/volume] in Serum or Plasma 210 mg/dL 70-140 H [facility] Potassium [Moles/volume] in Serum or Plasma 3.4 mmol/L 3.4-5.1 [facility] Sodium [Moles/volume] in Serum or Plasma 139 mmol/L 136-145 [facility] Urea nitrogen [Mass/volume] in Serum or Plasma 15 mg/dL 8-23 [facility] Anion gap 3 in Serum or Plasma 20 mmol/L 8-15 H [facility] Osmolality of Serum or Plasma by calculation 295 mosm/kg 275-300 [facility] Creatinine/Urea nitrogen [Mass Ratio] in Serum or Plasma 21 [facility] Calcium [Mass/volume] in Serum or Plasma 8.2 mg/dL 8.8-10.2 L [facility] Glomerular filtration rate/1.73 sq M pre dicted among non-blacks [Volume Rate/Area] in Serum or Plasma by Creatinine-based formula (MDRD) >6 0 [facility] Glomerular filtration rate/1.73 sq M pre dicted among blacks [Volume Rate/Area] in Serum or Plasma by Creatinine-based formula (MDRD) >60 [facility] ID Date Data Source [id number] 01/29/2021 12:31:[address] [facility] Name Value Range Interpretation Code Description Data Krystle rce(s) Supporting Document(s) Glucose [Mass/volume] in Capillary blood by Glucometer 202 mg/dL 70- 140 H [facility] ID Date Data Source [id number] 01/29/2021 09:35:27 AM [facility] CT HEAD WITHOUT CONTRAST [id number] RESU LTInterpreted by:Heidy Moreno MDINDICATION: R frontal IPH.TECHNIQUE: Noncontrast CT of the head using axial technique was performed. Automated dose lowering techniques and/or adjustment according to patient size were utilized for this exam.COMPARISON: CT head dated 01/27/2021 9:22 PM.FINDINGS: Evolving hemorrhagic contusion is noted in the right frontal region with surrounding edema. There is redemonstration of hemorrhagic contusions in bilateral anterior temporal regions.Stable subtle subdural hemorrhage along the right frontal convexity.Scattered subarachnoid hemorrhage is again noted.Layering hemorrhage is noted in the occipital horns of bilateral lateral ventricles.No new hemorrhage is seen.There is redemonstration of area of hypoattenuation in right periventricular occipital region.Diffuse cerebral atrophy is seen.No midline shift is identified. The basal cisterns are patent. Paranasal sinuses are clear. Mastoid air cells are clear. Stable appearance of the calvarium. Soft tissue swelling is noted in the posterior scalp.IMPRESSION:1. No significant change as compared to prior scan. However, comparison is limited due to extensive motion artifact in prior scan.2. Stable hemorrhagic contusions in right frontal region and bilateral anterior temporal regions.3. Stable subtle subdural hemorrhage along the right frontal convexity.4. Layering hemorrhage in the occipital horns of bilateral lateral ventricles.5. Additional chronic findings as above.This document has been electronically signed by Heidy Moreno MD on 01/29/2021 9:33 AM Name Value Range Interpretation Code Description Data Krystle rce(s) Supporting Document(s) ID Date Data Source [id number] 01/29/2021 08:05:17 AM [facility] Value Range Interpretation Code Description Data Krystle rce(s) Supporting Document(s) Glucose [Mass/volume] in Capillary blood by Glucometer 180 mg/dL 70- 140 H [facility] ID Date Data Source [id number] 01/29/2021 06:04:20 AM [facility] Value Range Interpretation Code Description Data Krystle rce(s) Supporting Document(s) Leukocytes [#/volume] in Blood by Automated count 8.9 10*3/uL 4-10 [facility] Erythrocytes [#/volume] in Blood by Automated count 3.40 10*6/uL 4.6- 6.1 L [facility] Hemoglobin [Mass/volume] in Blood 10.8 g/dL 13.5-18 L [facility] Hematocrit [Volume Fraction] of Blood by Automated count 32.5 % 4 1-53 L [facility] Erythrocyte mean corpuscular volume [Entitic volume] by Auto mated count 95.7 fL 80-96 [facility] Erythrocyte mean corpuscular hemoglobin [Entitic mass] by Automated count 31.7 pg 27-33 [facility] Erythrocyte mean corpuscular hemoglobin concentration [Mass/volume] by Automated count 33.1 g/dL 32.0-36.0 [facility] E[facility]th[facility] distribution width [Ratio] by Automated count 12.6 % 11.5-14.5 [facility] Platelets [#/volume] in Blood by Automated count 142 10*3/uL 150-400 L [facility] ID Date Data Source [id number] 01/29/2021 06:33:16 AM [facility] Value Range Interpretation Code Description Data Krystle rce(s) Supporting Document(s) Magnesium [Mass/volume] in Serum or Plasma 1.8 mg/dL 1.6-2.4 [facility] ID Date Data Source [id number] 01/29/2021 06:33:16 AM [facility] Value Range Interpretation Code Description Data Krystle rce(s) Supporting Document(s) Bicarbonate [Moles/volume] in Serum 12 mmol/L 22-29 L [facility] Chloride [Moles/volume] in Serum or Plasma 108 mmol/L 98-107 H [facility] Creatinine [Mass/volume] in Serum or Plasma 0.66 mg/dL 0.70-1.20 L [facility] Glucose [Mass/volume] in Serum or Plasma 189 mg/dL 70-140 H [facility] Potassium [Moles/volume] in Serum or Plasma 4.4 mmol/L 3.4-5.1 [facility] Hemolyzed Sodium [Moles/volume] in Serum or Plasma 137 mmol/L 136-145 [facility] Urea nitrogen [Mass/volume] in Serum or Plasma 14 mg/dL 8-23 [facility] Anion gap 3 in Serum or Plasma 17 mmol/L 8-15 H [facility] Osmolality of Serum or Plasma by calculation 290 mosm/kg 275-300 [facility] Creatinine/Urea nitrogen [Mass Ratio] in Serum or Plasma 21 [facility] Calcium [Mass/volume] in Serum or Plasma 7.2 mg/dL 8.8-10.2 [facility] Glomerular filtration rate/1.73 sq M pre dicted among non-blacks [Volume Rate/Area] in Serum or Plasma by Creatinine-based formula (MDRD) >6 0 [facility] Glomerular filtration rate/1.73 sq M pre dicted among blacks [Volume Rate/Area] in Serum or Plasma by Creatinine-based formula (MDRD) >60 [facility] ID Date Data Source [id number] 01/29/2021 06:33:16 AM [facility] Value Range Interpretation Code Description Data Krystle rce(s) Supporting Document(s) Phosphate [Mass/volume] in Serum or Plasma 3.0 mg/dL 2.5-4.5 [facility] ID Date Data Source [id number] 01/29/2021 06:08:54 AM [facility] Value Range Interpretation Code Description Data Krystle rce(s) Supporting Document(s) Calcium.ionized [Moles/volume] in Arterial blood 1.08 mmol/L 1.13-1.3 2 [facility] ID Date Data Source [id number] 01/29/2021 05:10:46 AM EDT [facility] Name Value Range Interpretation Code Description Data Krystle rce(s) Supporting Document(s) Glucose [Mass/volume] in Capillary blood by Glucometer 185 mg/dL 70- 140 H [facility] ID Date Data Source [id number] 01/29/2021 02:24:41 AM [facility] Value Range Interpretation Code Description Data Krystle rce(s) Supporting Document(s) Bicarbonate [Moles/volume] in Serum 14 mmol/L 22-29 L [facility] Chloride [Moles/volume] in Serum or Plasma 105 mmol/L 98-107 [facility] Confirmed Creatinine [Mass/volume] in Serum or Plasma 0.73 mg/dL 0.70-1.20 [facility] Glucose [Mass/volume] in Serum or Plasma 193 mg/dL 70-140 H [facility] Potassium [Moles/volume] in Serum or Plasma 3.5 mmol/L 3.4-5.1 [facility] HemolyzedConfirmed Sodium [Moles/volume] in Serum or Plasma 138 mmol/L 136-145 [facility] Confirmed Urea nitrogen [Mass/volume] in Serum or Plasma 15 mg/dL 8-23 [facility] Anion gap 3 in Serum or Plasma 19 mmol/L 8-15 H [facility] Confirmed Osmolality of Serum or Plasma by calculation 292 mosm/kg 275-300 [facility] Confirmed Creatinine/Urea nitrogen [Mass Ratio] in Serum or Plasma 21 [facility] Calcium [Mass/volume] in Serum or Plasma 8.0 mg/dL 8.8-10.2 L [facility] Glomerular filtration rate/1.73 sq M pre dicted among non-blacks [Volume Rate/Area] in Serum or Plasma by Creatinine-based formula (MDRD) >6 0 [facility] Glomerular filtration rate/1.73 sq M pre dicted among blacks [Volume Rate/Area] in Serum or Plasma by Creatinine-based formula (MDRD) >60 [facility] ID Date Data Source [id number] 01/29/2021 12:39:22 AM [facility] Value Range Interpretation Code Description Data Krystle rce(s) Supporting Document(s) Bicarbonate [Moles/volume] in Serum 12 mmol/L 22-29 L [facility] Chloride [Moles/volume] in Serum or Plasma 123 mmol/L 98-107 [facility] Confirmed Creatinine [Mass/volume] in Serum or Plasma 0.52 mg/dL 0.70-1.20 L [facility] Glucose [Mass/volume] in Serum or Plasma 178 mg/dL 70-140 H [facility] Potassium [Moles/volume] in Serum or Plasma 3.2 mmol/L 3.4-5.1 [facility] HemolyzedConfirmed Sodium [Moles/volume] in Serum or Plasma 150 mmol/L 136-145 H [facility] Confirmed Urea nitrogen [Mass/volume] in Serum or Plasma 13 mg/dL 8- [facility] Anion gap 3 in Serum or Plasma 15 mmol/L 8- [facility] Confirmed Osmolality of Serum or Plasma by calculation 315 mosm/kg 275-300 H [facility] Confirmed Creatinine/Urea nitrogen [Mass Ratio] in Serum or Plasma [facility] Calcium [Mass/volume] in Serum or Plasma 7.0 mg/dL 8.8-10.2 [facility] Glomerular filtration rate/1.73 sq M pre dicted among non-blacks [Volume Rate/Area] in Serum or Plasma by Creatinine-based formula (MDRD) >6 0 [facility] Glomerular filtration rate/1.73 sq M pre dicted among blacks [Volume Rate/Area] in Serum or Plasma by Creatinine-based formula (MDRD) >60 [facility] ID Date Data Source [id number] 01/28/2021 11:46:18 PM [facility] Name Value Range Interpretation Code Description Data Krystle rce(s) Supporting Document(s) Glucose [Mass/volume] in Capillary blood by Glucometer 193 mg/dL 70- 140 [facility] ID Date Data Source [id number] 01/28/2021 08:28:34 PM [facility] Value Range Interpretation Code Description Data Krystle rce(s) Supporting Document(s) Glucose [Mass/volume] in Capillary blood by Glucometer 224 mg/dL 70- 140 [facility] ID Date Data Source [id number] 01/28/2021 07:34:41 PM [facility] Value Range Interpretation Code Description Data Krystle rce(s) Supporting Document(s) Bicarbonate [Moles/volume] in Serum 12 mmol/L 22-29 [facility] Chloride [Moles/volume] in Serum or Plasma 104 mmol/L 98-107 [facility] Creatinine [Mass/volume] in Serum or Plasma 0.72 mg/dL 0.70-1.20 [facility] Glucose [Mass/volume] in Serum or Plasma 237 mg/dL 70-140 H [facility] Potassium [Moles/volume] in Serum or Plasma 3.6 mmol/L 3.4-5.1 [facility] Sodium [Moles/volume] in Serum or Plasma 136 mmol/L 136-145 [facility] Urea nitrogen [Mass/volume] in Serum or Plasma 15 mg/dL 8-23 [facility] Anion gap 3 in Serum or Plasma 20 mmol/L 8-15 H [facility] Osmolality of Serum or Plasma by calculation 290 mosm/kg 275-300 [facility] Creatinine/Urea nitrogen [Mass Ratio] in Serum or Plasma 20 [facility] Calcium [Mass/volume] in Serum or Plasma 8.6 mg/dL 8.8-10.2 L [facility] Glomerular filtration rate/1.73 sq M pre dicted among non-blacks [Volume Rate/Area] in Serum or Plasma by Creatinine-based formula (MDRD) >6 0 [facility] Glomerular filtration rate/1.73 sq M pre dicted among blacks [Volume Rate/Area] in Serum or Plasma by Creatinine-based formula (MDRD) >60 [facility] ID Date Data Source [id number] 01/28/2021 06:01:30 PM [facility] Name Value Range Interpretation Code Description Data Krystle rce(s) Supporting Document(s) Glucose [Mass/volume] in Capillary blood by Glucometer 213 mg/dL 70- 140 H [facility] ID Date Data Source [id number] 01/28/2021 02:54:43 PM [facility] Name Value Range Interpretation Code Description Data Krystle rce(s) Supporting Document(s) [facility] INGWPd2vNxJLHxKh26/AGJoxYBTip6FeIKdfTKx8DWwjWTEyB4YuMRL6uG7lDSI9JXuPJsReHoTyIXQ7 [facility] [file] avWzx2alculdz08/EBa1ARRNyRocQG1enitywEN1+dPLyQ7QYOEQFTd1PcDrHgdtFpzc0t+Cristóbal+Mc9h [file] RiZmIzNWM+PE8tSRv+Gx4Bg8FcwhO8ziFbGNoyWKJhOe5ZBTKCS5QBYi== ID Date Data Source [id number] 01/28/2021 02:44:[address] [facility] XR CHEST FRONTAL ONLY [id number] RESULTI nterpreted by:Nelida Mccullough MDINDICATION: Nasogastric tube placementTECHNIQUE: Portable frontal AP chest radiograph.COMPARISON: Chest radiograph dated 01/27/2021FINDINGS:Enteric tube visualized with distal tip and side-port overlying the left upper quadrant.The cardiomediastinal contours are stable.There is no pleural effusion. There is no pneumothorax.The lungs are clear.Visualized abdomen is without free air.IMPRESSION:Enteric tube in appropriate position.This document has been electronically signed by AMAYA Mccullough on 01/28/2021 2:42 PM Name Value Range Interpretation Code Description Data Krystle rce(s) Supporting Document(s) ID Date Data Source [id number] 01/28/2021 01:50:[address] [facility] Name Value Range Interpretation Code Description Data Krystle rce(s) Supporting Document(s) ED Provider Note [facility] AGNTUg6kTrRHHiNh37/EEEaaRCVng0CkVQtpFZg4YTyaXAXuJ0ZlKXQ8rE6rPXR6VBaCIjNoZrYnZQS6 lbm [file] Data Coordinator+oX2wglNS7UoNCyJAAS9JY1wiervacStL71jlaaT [file] W1SUPoFCWjPfWjNyJ5NMNoV0QqXbPhGZ8nSTHYZm5+NSgtrKHwzRuuSEZRBmG3FCu6DDahLPNFWp2L ID Date Data Source [id number] 01/28/2021 02:09:[address] [facility] Name Value Range Interpretation Code Description Data Krystle rce(s) Supporting Document(s) Bicarbonate [Moles/volume] in Serum 11 mmol/L 22-29 L [facility] Chloride [Moles/volume] in Serum or Plasma 104 mmol/L 98-107 [facility] Creatinine [Mass/volume] in Serum or Plasma 0.68 mg/dL 0.70-1.20 L [facility] Glucose [Mass/volume] in Serum or Plasma 247 mg/dL 70-140 H [facility] Potassium [Moles/volume] in Serum or Plasma 3.9 mmol/L 3.4-5.1 [facility] Sodium [Moles/volume] in Serum or Plasma 139 mmol/L 136-145 [facility] Urea nitrogen [Mass/volume] in Serum or Plasma 15 mg/dL 8-23 [facility] Anion gap 3 in Serum or Plasma 24 mmol/L 8-15 H [facility] Osmolality of Serum or Plasma by calculation 297 mosm/kg 275-300 [facility] Creatinine/Urea nitrogen [Mass Ratio] in Serum or Plasma 22 [facility] Calcium [Mass/volume] in Serum or Plasma 8.6 mg/dL 8.8-10.2 L [facility] Glomerular filtration rate/1.73 sq M pre dicted among non-blacks [Volume Rate/Area] in Serum or Plasma by Creatinine-based formula (MDRD) >6 0 [facility] Glomerular filtration rate/1.73 sq M pre dicted among blacks [Volume Rate/Area] in Serum or Plasma by Creatinine-based formula (MDRD) >60 [facility] ID Date Data Source [id number] 02/02/2021 09:37:[address] [facility] Service Cmnt XXX-Imp : L ANKLEMicroorgan ism XXX Cult : No growth 5 days Name Value Range Interpretation Code Description Data Krystle rce(s) Supporting Document(s) ID Date Data Source [id number] 02/02/2021 09:37:[address] [facility] Service Cmnt XXX-Imp : R LEGMicroorganis m XXX Cult : No growth 5 days Name Value Range Interpretation Code Description Data Krystle rce(s) Supporting Document(s) ID Date Data Source [id number] 01/28/2021 12:49:14 PM [facility] Name Value Range Interpretation Code Description Data Krystle rce(s) Supporting Document(s) Glucose [Mass/volume] in Capillary blood by Glucometer 223 mg/dL 70- 140 H [facility] ID Date Data Source [id number] 01/28/2021 01:12:26 PM [facility] Service Cmnt XXX-Imp : NoneMicroorganism XXX Cult : Polymerase chain reaction assay was NEGATIVE for both methicillin-resistant Staphylococcus aureus (MRSA) and methicillin-susceptible Staphylococcus aureus (MSSA) Name Value Range Interpretation Code Description Data Krystle rce(s) Supporting Document(s) ID Date Data Source [id number] 01/28/2021 12:01:01 PM [facility] Name Value Range Interpretation Code Description Data Krystle rce(s) Supporting Document(s) Color of Urine [facility] Clarity of Urine [facility] Specific gravity of Urine by Refractometry automated 1.017 1.003 -1.030 [facility] pH of Urine by Automated test strip 6.0 5.0-8.0 [facility] Protein [Mass/volume] in Urine by Automated test strip 100 mg/dL Neg [facility] Glucose [Mass/volume] in Urine by Automated test strip Neg [facility] Ketones [Mass/volume] in Urine by Automated test strip 80 mg/dL Neg [facility] Bilirubin.total [Presence] in Urine by Automated test strip Negative [facility] Hemoglobin [Presence] in Urine by Automated test strip Neg [facility] Leukocyte esterase [Presence] in Urine by Automated test strip Negative [facility] Nitrite [Presence] in Urine by Automated test strip Negati [facility] Leukocytes [#/area] in Urine sediment by Automated count 0 -5 [facility] Erythrocytes [#/area] in Urine sediment by Automated count 5 /HPF 0-3 H [facility] Epithelial cells.squamous [#/area] in Urine sediment by Automate d count None [facility] Mucus [#/area] in Urine sediment by Microscopy low power field None [facility] ID Date Data Source [id number] 01/28/2021 08:36:[address] [facility] Name Value Range Interpretation Code Description Data Krystle rce(s) Supporting Document(s) Glucose [Mass/volume] in Capillary blood by Glucometer 236 mg/dL 70- 140 H [facility] ID Date Data Source [id number] 01/28/2021 08:07:[address] [facility] Name Value Range Interpretation Code Description Data Krystle rce(s) Supporting Document(s) [facility] KXMOXl1tPpKTPvVzn2ApWlMnSRMfBM8vmhe7H8C3qVDeU3XpzSOvg9vgS5OhR1MqUYIpJMHVUQ9RyPWt jb2 [file] wdV85lDM184dtfIa1q9jHsj302Pib5hgtvk347duEqu8gQ3828I3+f9O6Fvsu2shNHNH+p3Y70lj1q55 924KsufKX+z5Oq2RBMQbytP15E65q/ybg8yaoq6SjO X+Xvjt/P/mDH/mDX/iUyMIiAUzG58S/i46NTej/+lXA00MXHP4+wdNf+9JZhk31t3/7gXoPsBOPcU+va H1Q92h/M97X+2t7hW4OzJjnnqqjWt50emlT78H4KK/V+/DBuEr1W+8dW0KpRo7sOxjk1vn7M1mrYfbGs vbPxVZbd+Cr7s/PH08w4z2bi+jtKSr1Ie92H+PV+vp cardiovascular service line dj/Q26WkxwR5pa0y0A+wD6Syk7yx+/7yz0H/IKX/T7xaELwnZ/9jjzb4+Wd0iq3xWfJh8wo7QFin+c/f 5wMMd7hicpWDxsm73nBPqYV8uyePRjiOcgzqPHiiCqpGKX1e/e50+A/+DsLsFkj86Q82+7NwcmEELx8L cqY06io4Iz5Ue4fbKVQbRQPJ44lEUvr/h344u799QC i417uwOqQVuZNg4F0/6t5OA8/4Uxs14hqsTKYdA0E/gZIwPjd+Or/AnblEi8MaCxy7UuvAQYqlvg/R37 36cf1PBoyRg3lRT/3+wYi98dt4kpg3/l/lKdl1ebO1+hf7T0vH1o5kM13L1RR22e1D+fJ97eJ+x5nf3f vs7+b657OUq+43Fh/l2QF/geE4opCa+84J+Wb1mJ40 vP2e/eKb+PbhfwxoK/Qvxqp/u+HYupRulFj2S8u/tpVZ9HZs8m/vVi+Q9lUM5Ygqt76/F7x+7m0Da4Rl 9K2VKfowG8ub4ga8g5flasyaq5aMG00vCl/+8g6hshtRaN9esoqt848oyIc7xmePSJsl/yfT/2Iy4Olw K/n/7Ghoq0xx9gL+Q0uYhL6/KN42bmAor27QnpxNun Pd3t6dv97/D7wc+O+JVbRz1++q/gP5ySR89/cZ2/Uzjhuj3HQqLhqds5r+Z29vcd+4OO+JW3s1/m7Zyv q7UyQNrn826hq+OV7btGi28L7tM5bL/jrzG5fif0Z/cO09Rx2qGE1pBhQuTmf9NzejcnM7dnS2mN+/FX 0tWAmqz8aFPjAD4e/sp7w+/OF2xHYGvKD+Ar1/5gvh N4f+X02WYo1R0HgU/H+YN2X65Tji+MimiPM9Jgo/u1qWzs49bbDdC561/jN/QoS69p87lgdofcc/uLS1 21ltIPcEkjR4H25j20OA7r23XO3fD063WCaMV7m3/ifta/RmGMTB1XW66qOZ6O1Qvn3y7xG0/Bo6Ee+O nO494Vmh8riejgszN6geX+Uhu36MUvJ/BFxzYmB8X1 +J6eX0Zaeraw19s07er/G343/N5O/8dZ/+682qc/G1/fs120Bi/1OPjZha+tJudwuY6Pv/61pK0x7N04 zl85zl/5POeBXfEr+THFr/L3E5/0efZDXfGr/X03qGegmW/1ZWkmyczJr1B0wL328BQy+1nvO+JXDnzl 8+mz40DJF5kG20tj/K9j1SnZmdCsOfs5e1Xbc+yMx3 XOA++S8BucwTOt0+tzAbqbrn8uipKyhFx9jb/3+M2c3j1+50rqm6Ql/h5U9ykarr7knz7gl32+YefInm d/tIDEt206prqz/M6PPc+fCrrsEp3H75uPznBi4D1qqdNu3/odvwd+Dz/PT34vvJ+Btt1vhD2x85f1LY Gr+n3s2Ic2veLh94zW6LRzbhyxi4k+f0Ieu6H1SuXT z/kKtiuwmFfGChK9akRs+Inm15P1D0SQ3bfC/Gp/xxC+yrbO/Bv1jN+fD53AhEie/UCX9yv6xeKRz3fY OvIzvyCes40bKqm7k0Mwl/Wgi1dVUQ6bJonNoirbAg1+D/bmtFOncnvPRlERlw4Pc3laB005RbqhvNBj m+xrI468vijktv5F8khcwSPoV+OLeG285p0kkOe87m tZi79tABfjV08ZrwkrGtfbqc3/eC/yfHs+H/umYh2SJ/GcvbR+7LPBnje+SptR/RnkQliSgl39PZbH/f B797ilZDxn2bj6KE7Gvc/p/E4yKsTrqlY5qSaQr9j+6Bi/vaH+vttYkz0tno+Pfw7gq+sTmh23WcwoQo iw994Yq3TD3p7q6bpfazd1TXizajI+ep7xu+F3O/p3 jF8/35Fqa745aA/yfT/3KJ6HqhkBd9TxR+qz4/o0GS4WqjQzL+EL7x+8EQF54+KjWSv2OuUZKLh/LICv Nq70RNZeLlQ1SqCaR/ex7jmRTbQvcwnnzLcMUgf6OvH5dlQlfcJOam6kbTGs+HlTbP5aXNu+1gsxDL+f +GSME5+JbjMMlryOk1w77eya3q7t/z8Igg67xpLt14 D8ak/V7/NCPevoWfErtTvP+ijmiW/ExPfN8+7Nb44pV/wqFL/R9RCt5Eh1i/NX+zl6zgEO/kmfZWpr3C Mohini+7X5HZi68R+kh9isG5n6Xf4hVWgHVEgtoHH/JpD0DdAy+ZzZrkRjpbK4yesrBhu03I9U7/APa7778 Jsh4TUV96bd9Em0iPgce+Qjr6OgFQPe3KW4ho13/D7 cRffyJov3zkWNvwrs3pfRP/EW6Nzb6zcQK+ZnifeP/IOatkQAD8U8/AuwZA9pb5UUu5M4OwE54FHm1Fc oX6KspqR1dykmNm5C2a12ExZi+W6jW0OpM/xO+StC/Wf+POw45+GvtgzYA9l7SGb0035G0U2zhhgEbyi mz82Qiml8QUnr+AX2QzhWeztt9+oROM7GBpaFE+HJ0 d15Vr98e/y/k8/lx2b2A32fCi/e3vf5/L2zd44i0uaQ7z3kZ0Oy5zq45y8k9146+fxEqOcv+287/N4/r [file] CE64VlJg6ejNvo9KBBh4DD3rAB1SHWc8oPE6Pft+[employer] Vmfx3S3JmmX6HWEkysv///wLI0MScbym3VmMCzOQry87p8M6Sa98zr6V12mYqrElsboPtRbB4CxO2bjf 7HhzASFk2wOSL0VnHJpLua0ibIwOqY8l3ug04htMhDZNccyaigIjZnRioiIs8c0iEIdCtXxXFfCHP+pN 88YXNviCx8MaM3d8LlQgymu83cDtZmXfJPoZa/niXj mDec2n9DFbUs9EBtz/GjVOmRsfhY82E2cfbvhm4DuUlgBjBp9ovdmHmsgkhEp4KmoQ/h2BOFNQ+56xzF shicNvIBqc0wldziMJE8SIdgOUknyHXfjF/I5Wkt2DbeDBZhb+KwiGMO09lWVW4J2jKZ6ScuiNHToUAR LJZz259+yvft0dgzaeeNfwwfs3Jh4qFunDtx5iBLbY F7b6KrIBkru0wapBZr7gIj4+JUnAw9yApuHXs6FQu6EM79ja1fGIC7ua7MUbBSb3iCJ/sa9HNoJktcG9 Xrss3Og8TM90MhHqGm8NH2xIct6grFRBZ5rQIDueVJ0nGgHqA5gXfF9I15B2m3zzpnz7Ah3q3orQO2y7 ZMVC9YPF88ZajJKbhI7oWbFqxgtIx8EOc5h1HCRz1p NFSWA3wbYVKFIb2AueHuyj5TuP3Mrzpac8S2DgO7DHHnMCkXMe0g1PBR72cI9cRagu6ExE0T57LP1gMb 0RylNYb7BZsy8LxYmMqSseZZ7jg73hA8CbZ8eoADKFWX0lEt4S5WglB3kc6Rk5wly4MLl+ubbQ4dNFly a9i0YiCObV0Fgss2MYeBwB6PSp3Irk81FsaaNJmrmC ZzycSPcrWDHjjauvSurw5kmkqli1xCsg+XKre+dcrbscAbqdKObDpiG6ck8Z3F6J2WkHCg6Uy2yjFygl yw6hJqUL71nXb2GZ1bLv0UGm8pA9zZ7t+DL7bXx9m+PB4dRk4aPPbw7ZRfIdpWO+FQeJgNi94jLIb2ni nq2DL2LPtj6HVJn1e6D56m09Za164uBLFsPd5JG1z1 [file] DlXmXNWVH1Wyk8FkLYBcFHRQGh1+LuH8PPO7wMAhSiv8VGE1LxqaOWPTGq== ID Date Data Source [id number] 01/28/2021 06:22:[address] [facility] Name Value Range Interpretation Code Description Data Krystle rce(s) Supporting Document(s) Calcium.ionized [Moles/volume] in Arterial blood 1.18 mmol/L 1.13-1.3 2 [facility] ID Date Data Source [id number] 01/28/2021 06:35:[address] [facility] Name Value Range Interpretation Code Description Data Krystle rce(s) Supporting Document(s) Leukocytes [#/volume] in Blood by Automated count 10.3 10*3/uL 4-10 H [facility] Erythrocytes [#/volume] in Blood by Automated count 4.21 10*6/uL 4.6- 6.1 L [facility] Hemoglobin [Mass/volume] in Blood 13.6 g/dL 13.5-18 [facility] Hematocrit [Volume Fraction] of Blood by Automated count 41.0 % 4 1-53 [facility] Erythrocyte mean corpuscular volume [Entitic volume] by Auto mated count 97.3 fL 80-96 H [facility] Erythrocyte mean corpuscular hemoglobin [Entitic mass] by Automated count 32.3 pg 27-33 [facility] Erythrocyte mean corpuscular hemoglobin concentration [Mass/volume] by Automated count 33.2 g/dL 32[facility]0-[facility] E[facility]th[facility] distribution width [Ratio] by Automated count 12.6 % 11.5-14.5 [facility] Platelets [#/volume] in Blood by Automated count 167 10*3/uL 150-400 [facility] ID Date Data Source [id number] 01/28/2021 06:43:36 AM EDT [facility] Name Value Range Interpretation Code Description Data Krystle rce(s) Supporting Document(s) Bicarbonate [Moles/volume] in Serum 18 mmol/L 22-29 L [facility] Chloride [Moles/volume] in Serum or Plasma 103 mmol/L 98-107 [facility] Creatinine [Mass/volume] in Serum or Plasma 0.73 mg/dL 0.70-1.20 [facility] Glucose [Mass/volume] in Serum or Plasma 225 mg/dL 70-140 H [facility] Potassium [Moles/volume] in Serum or Plasma 3.9 mmol/L 3.4-5.1 [facility] Sodium [Moles/volume] in Serum or Plasma 139 mmol/L 136-145 [facility] Urea nitrogen [Mass/volume] in Serum or Plasma 12 mg/dL 8-23 [facility] Anion gap 3 in Serum or Plasma 18 mmol/L 8-15 H [facility] Osmolality of Serum or Plasma by calculation 295 mosm/kg 275-300 [facility] Creatinine/Urea nitrogen [Mass Ratio] in Serum or Plasma 16 [facility] Calcium [Mass/volume] in Serum or Plasma 8.9 mg/dL 8.8-10.2 [facility] Glomerular filtration rate/1.73 sq M pre dicted among non-blacks [Volume Rate/Area] in Serum or Plasma by Creatinine-based formula (MDRD) >6 0 [facility] Glomerular filtration rate/1.73 sq M pre dicted among blacks [Volume Rate/Area] in Serum or Plasma by Creatinine-based formula (MDRD) >60 [facility] ID Date Data Source [id number] 01/28/2021 06:43:36 AM [facility] Name Value Range Interpretation Code Description Data Krystle rce(s) Supporting Document(s) Phosphate [Mass/volume] in Serum or Plasma 2.7 mg/dL 2.5-4.5 [facility] ID Date Data Source [id number] 01/28/2021 06:43:36 AM [facility] Value Range Interpretation Code Description Data Krystle rce(s) Supporting Document(s) Magnesium [Mass/volume] in Serum or Plasma 2.1 mg/dL 1.6-2.4 [facility] ID Date Data Source [id number] 01/28/2021 04:11:43 AM [facility] Value Range Interpretation Code Description Data Krystle rce(s) Supporting Document(s) Glucose [Mass/volume] in Capillary blood by Glucometer 178 mg/dL 70- 140 H [facility] ID Date Data Source [id number] 01/28/2021 01:35:53 AM [facility] Value Range Interpretation Code Description Data Krystle rce(s) Supporting Document(s) Bicarbonate [Moles/volume] in Serum 18 mmol/L 22-29 L [facility] Chloride [Moles/volume] in Serum or Plasma 102 mmol/L 98-107 [facility] Creatinine [Mass/volume] in Serum or Plasma 0.74 mg/dL 0.70-1.20 [facility] Glucose [Mass/volume] in Serum or Plasma 257 mg/dL 70-140 H [facility] Potassium [Moles/volume] in Serum or Plasma 3.9 mmol/L 3.4-5.1 [facility] Sodium [Moles/volume] in Serum or Plasma 137 mmol/L 136-145 [facility] Urea nitrogen [Mass/volume] in Serum or Plasma 12 mg/dL 8-23 [facility] Anion gap 3 in Serum or Plasma 17 mmol/L 8-15 H [facility] Osmolality of Serum or Plasma by calculation 293 mosm/kg 275-300 [facility] Creatinine/Urea nitrogen [Mass Ratio] in Serum or Plasma 17 [facility] Calcium [Mass/volume] in Serum or Plasma 8.9 mg/dL 8.8-10.2 [facility] Glomerular filtration rate/1.73 sq M pre dicted among non-blacks [Volume Rate/Area] in Serum or Plasma by Creatinine-based formula (MDRD) >6 0 [facility] Glomerular filtration rate/1.73 sq M pre dicted among blacks [Volume Rate/Area] in Serum or Plasma by Creatinine-based formula (MDRD) >60 [facility] ID Date Data Source [id number] 01/28/2021 12:17:[address] [facility] Name Value Range Interpretation Code Description Data Krystle rce(s) Supporting Document(s) Glucose [Mass/volume] in Capillary blood by Glucometer 270 mg/dL 70- 140 H [facility] ID Date Data Source [id number] 01/27/2021 09:53:[address] [facility] CT HEAD WITHOUT CONTRAST [id number] RESU LTInterpreted by:Maxine Klein, MDPROCEDURE INFORMATION: Exam: CT Head Without Contrast Exam [...] iterative reconstruction. COMPARISON: CT HEAD WITHOUT CONTRAST [id number] 01/27/2021 2:07 PM FINDINGS: Brain: There is [...] frontal subarachnoid hemorrhage. There is diffuse cerebral atrophy.Stable sulcal effacement mostly right frontal region. No appreciable midline shift.Cerebral ventricles: No ventriculomegaly. Paranasal sinuses: Visualized sinuses [...] DOCUMENT HAS BEEN ELECTRONICALLY SIGNED BY MAXINE KLEIN MDThis document has bee n electronically signed by Maxine Klein MD on 01/27/2021 9:53 PM Name Value Range Interpretation Code Description Data Krystle rce(s) Supporting Document(s) ID Date Data Source [id number] 01/27/2021 08:15:00 PM [facility] [address] HEAD WITHOUT CONTRAST [id number] RESU LTInterpreted by:Ruy Dorman MDINDICATION: follow up CT head stability TECHNIQUE: Contiguous axial CT images of the head from the base of the skull to the vertex without IV contrast. Automated dose lowering techniques and/or adjustment according to patient size were utilized for this exam.COMPARISON: CT head from 01/27/2021 8:39 AM.FINDINGS: Study is limited by motion artifact.Slight interval increase in the hemorrhagic contusion in the right frontal lobe. Stable hemorrhagic contusions in bilateral temporal lobes. Stable subarachnoid hemorrhage in bilateral cerebral hemispheres. Evolving hypodensity in the right occipital lobe. 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 Generalized atrophy with commensurate enlargement of the ventricular system. The basal cisterns are patent.Periventricular and subcortical nonspecific white matter hypoattenuation is most likely attributed to small vessel ischemic disease.Mild thickening of the left maxillary sinus. Mastoid air cells are clear. Nondisplaced left parietal bone fracture .IMPRESSION:1. There is slight interval increase in the hemorrhagic contusion i n the right frontal lobe. Hemorrhagic contusions in the bilateral temporal horns are unchanged.2. There is an evolving hypodensity in the right occipital lobe.This document has been electronically signed by Heidy Moreno MD on 01/27/2021 8:12 PM Name Value Range Interpretation Code Description Data Krystle rce(s) Supporting Document(s) ID Date Data Source [id number] 01/27/2021 08:36:05 PM [facility] Name Value Range Interpretation Code Description Data Krystle rce(s) Supporting Document(s) Glucose [Mass/volume] in Capillary blood by Glucometer 282 mg/dL 70- 140 H [facility] ID Date Data Source [id number] 01/27/2021 06:33:27 PM [facility] Name Value Range Interpretation Code Description Data Krystle rce(s) Supporting Document(s) History and Physical [facility] ICAZLo3cZkTWFkXk30/TSCcvZERkg8HzWHjxTFq2CZkyWKLbJ5IlSPR3nO6zTBV4DFfDGnEoBqPfMMW5 lbm [file] ZMA8HvAdHbAtPnJqVoPqTAR+GX9iAKg+Gq7Gj1DcznU4spSaDPm9PPg8HZzsTOBWBc4N ID Date Data Source [id number] 01/27/2021 04:31:[address] [facility] Name Value Range Interpretation Code Description Data Krystle rce(s) Supporting Document(s) Glucose [Mass/volume] in Capillary blood by Glucometer 310 mg/dL 70- 140 H [facility] ID Date Data Source [id number] 01/27/2021 04:06:[address] [facility] Name Value Range Interpretation Code Description Data Krystle rce(s) Supporting Document(s) Consultation [facility] FBBIIj9aHqPAGmCm30/QHWesLHJag9LwYTdwAFx9ZHvdHSRwL6UxWYT6nY7eCIA5YEdJXzVoBwDeOUZ9 lbm [file] ICAgICAgICAgICAgICAgICAgICAgICAgICAgICAgIC AgICAgICAgICAgICAgICAgICAgICAgICAgICAgICAgICAgICAgICAgICAgDQogICAgICAgICAgICAgIC AgICAgICAgICAgICAgICAgICAgICAgICAgICAgICAgICAgICAgICAgICAgICAgICAgICAgICAgICAgIC AgICAgICAgICAgICAgICAgICAgICAgICAgDQogICAg ICAgICAgICAgICAgICAgICAgICAgICAgICAgICAgICAgICAgICAgICAgICAgICAgICAgICAgICAgICAg ICAgICAgICAgICAgICAgICAgICAgICAgICAgICAgICAgICAgDQogICAgICAgICAgICAgICAgICAgICAg ICAgICAgICAgICAgICAgICAgICAgICAgICAgICAgIC AgICAgICAgICAgICAgICAgICAgICAgICAgICAgICAgICAgICAgICAgICAgICAgDQogICAgICAgICAgIC AgICAgICAgICAgICAgICAgICAgICAgICAgICAgICAgICAgICAgICAgICAgICAgICAgICAgICAgICAgIC AgICAgICAgICAgICAgICAgICAgICAgICAgICAgDQog ICAgICAgICAgICAgICAgICAgICAgICAgICAgICAgICAgICAgICAgICAgICAgICAgICAgICAgICAgICAg ICAgICAgICAgICAgICAgICAgICAgICAgICAgICAgICAgICAgICAgDQogICAgICAgICAgICAgICAgICAg ICAgICAgICAgICAgICAgICAgICAgICAgICAgICAgIC AgICAgICAgICAgICAgICAgICAgICAgICAgICAgICAgICAgICAgICAgICAgICAgICAgDQogICAgICAgIC AgICAgICAgICAgICAgICAgICAgICAgICAgICAgICAgICAgICAgICAgICAgICAgICAgICAgICAgICAgIC AgICAgICAgICAgICAgICAgICAgICAgICAgICAgICAg DQogICAgICAgICAgICAgICAgICAgICAgICAgICAgICAgICAgICAgICAgICAgICAgICAgICAgICAgICAg ICAgICAgICAgICAgICAgICAgICAgICAgICAgICAgICAgICAgICAgICAgDQogICAgICAgICAgICAgICAg ICAgICAgICAgICAgICAgICAgICAgICAgICAgICAgIC FmZVLrHVQvVPYnJRQvRYSxIAVwMNIxKHChQREeNRBcFMMgNPSmYJAzNZOtWTKwJGRvYEItZZz1A1hhAY BfKLPdPF6qJZj8Qd1+NFvOOtXtCBM6jrDkoT2RRN0au7QcRLjvWUNza2NjHWc2SW1FMRUuCDtiHQ2TBC psfg4LWFSaHSXbpMMEg2rnDuWvTWV7LQOtIlvgUI7K BVDbC6czraYnSRUmLLPNVLvuHCXOUNeoULXIKTVcQTWeQqZjXbEzFSQnFVWaIGJGGWS1EWDfJhXdICwd KJ6Pz1TqjSN2KCi+Lm6QDV3ec5HcKLk0TQRcGS0uhe5GDTsCTsQhG4EhthM8OXNcBWThUj7SKZDjJXYq zZZ7JBSuTMSZGzJpO1YnwP66CNWRJp3+DQplbmRvYm wAHrTiPTNsh8BnDYm5TJ7NAUCyVEc3aMDsK92hz5KbtFVzTplbO9SiRW5fAAatyXonVJPIOfCDEVE9HP dlVIOuByQyVCOdWBqmRsUZAKcNIhYlT3Rpj6LcYxV3WEQhFtEgTEplJXYeEhD4SO76uWheSI1GTPFrUH YdQP23FMNpWRDiZp5DOn5QQzObZC2ktw5AXUKcVNOp DbgOOxt3CAysKV2UsAIaV1RuyUBzq0vNVnBpW1VKEMQ7QVLaGk4QTBNrNrVsAUAnGQicUZ8aLHWcWJWF kTzwcsI4TY9NPH9mlqGsFK5GPdWrFs7oRp9RGwQkI7HqW9IvMVAmFUYGZEgoYI4LYDccTH0hVY6De6UO dDLmnP7awb6ARTWvJQLoTiyzmq4LXeplU4E1oNtrXI RdQIVkYWNKFUyuXC2IRAMmAXV5ZUJwZCEwICFDQiFbJ57sUQ1TS9Zfl19mPpW7SGFkSpRwQDunDC28nN mhfmLuzHGdfXwvOG7CSe3+ENhthvTnNrbJUxrmLEYOVkKgIDLNGyDbSMLnJEZlXJAlGbD6HhDiRb4ZBD LdEJCiCGJwSwYkXENfIEMpQJfnGUNfYTD5PRI6TAIe UHKmMY4QLjCeTOOqLLbtIJFgIQOpPGPzrs2MNEVaPPDuCMH4GiYdJKBoJJAtLNdbMXEqUAKlABM4VMZv BCStAV0VQvWnZJAfYAU7OkWzGBUrFEIajo4ZOSJhOSAeLwFqFGHkRYFmNBJjCOezXLMpXJH8LuSfPVTx MBMcUF0XPlLbDXJeVVJxAqGpZUOpTUAfve8SBJIbDC TzBQF0GLCmVEGnJBTdVFybQQBiYKTuVfI1WRMjANZmSX3QJoRlDESuGIE8CgLiEWGqIYOaud5RMBPoZB VqFpsaBdTlLSGsVIXdUPahKTKbXAH1EPO5MDMqHPYxYG1BVnEaADHkQyNrFYFoGZQxAQXfkm9HKSIlEX HzLHG6XUQpOHGxHXXpSMntTALcEKGlLAX6DLFhFBTa AX5VGfAyCVDyEqHgWqByREHxUPTehd1SUDZgZSHaVhW2ZCItVUEhIVJpOOylGBOsSAZwFgz3UAClZDCx PY2NFlWvFTJkWfX6RsXuPPFgZMUomk9ZOBBuRSZnKMUeBEBlXIMeCIAoMIcxMBCgGPU2JzScQNSoRXHm TP0PXdAzVHFmHrI9JVvmIKVkQUVjws2IZEWmRUGpUQ t3FSDyEFGfKLTfYVehIJJoVFL6DFauLWOsVEHkFY1SEoXcHUKeYlUtZSfoSUFgSTDgru0KMFOjJZSlMm UqFUUsFBFxSGDgHCsqFVKtKLV1SER1IRGaURPdMX1BVgMaTZVtYlh2FLqyKOVcNCZujm7ZSZTaCZW4Yi P6OBJiTXXeWMArCYuwVLHoVSLuPVHnZTNmWOFdLL2W ZiArIHMjBAMaSLGoVJDiBGDbnl5IONMaDYV8Xog0NrBwDLMwLRWoQYvqMGJgIHS3VBFvXWXhOSUgUX4Z YvFeONWiIETpDFkiWZCfCBDvkr3UJECgMYU4EBK7XRKbSYPvOHGaIFnzSVSkHJC9OZZcIRGcNZXcCE4M ZdWzNIDlXWZ6PtYgTXBsPTIlom2JURKcBSC6QwE3IU YvSPDzCHEyZAsqRERcVKH8XWPxIBXyTHFoZE5HBsDjHLLdSFq8AbIdXCTpBWHjsg2UjDLugLefhq2EYU oZYv7ZvSpvUEJpHYptTw0kzLO9JgBlEBHOYp2JyjPxUSSnSUVAPKhgWWWjAOPmBZp4WUt3QeFqFYK2Cr D4NYBpVoqePPGgIHPtKSc5OwS2CENuAvK0CFa2XXQ0 Inf5QUr1YuWhY7MnWaQbBuB8HGM+OZ6rRYo+Yj3Qv1RwpqL4jiGiBVc1FjgbOE0VYWYIA0DFWs== ID Date Data Source [id number] 01/27/2021 04:28:41 PM EDT [facility] Name Value Range Interpretation Code Description Data Krystle rce(s) Supporting Document(s) Bicarbonate [Moles/volume] in Serum 15 mmol/L 22-29 L [facility] Chloride [Moles/volume] in Serum or Plasma 96 mmol/L 98-107 L [facility] Creatinine [Mass/volume] in Serum or Plasma 0.65 mg/dL 0.70-1.20 L [facility] Glucose [Mass/volume] in Serum or Plasma 337 mg/dL 70-140 H [facility] Potassium [Moles/volume] in Serum or Plasma 4.5 mmol/L 3.4-5.1 [facility] Sodium [Moles/volume] in Serum or Plasma 134 mmol/L 136-145 L [facility] Urea nitrogen [Mass/volume] in Serum or Plasma 10 mg/dL 8-23 [facility] Anion gap 3 in Serum or Plasma 23 mmol/L 8-15 H [facility] Osmolality of Serum or Plasma by calculation 290 mosm/kg 275-300 [facility] Creatinine/Urea nitrogen [Mass Ratio] in Serum or Plasma 15 [facility] Calcium [Mass/volume] in Serum or Plasma 8.6 mg/dL 8.8-10.2 [facility] Glomerular filtration rate/1.73 sq M pre dicted among non-blacks [Volume Rate/Area] in Serum or Plasma by Creatinine-based formula (MDRD) >6 0 [facility] Glomerular filtration rate/1.73 sq M pre dicted among blacks [Volume Rate/Area] in Serum or Plasma by Creatinine-based formula (MDRD) >60 [facility] ID Date Data Source [id number] 01/27/2021 12:33:[address] [facility] XR HAND 2 VIEWS [id number] RESULTInterpr eted by:Surendra Hernandez MDINDICATION: Redness of hand.TECHNIQUE: AP and lateral views of the right hand were obtained.COMPARISON: None available.FINDINGS:Vascular calcifications are seen throughout the soft tissues [...] MCP joint. There are no acute pathological findings.Impression:Chronic arthritic/degenerative changes visualized, with no acute osseous or soft tissue findings.This document has been electronically signed by Austin Rojas MD on 01/27/2021 12:31 PM Name Value Range Interpretation Code Description Data Krystle rce(s) Supporting Document(s) ID Date Data Source [id number] 01/27/2021 12:32:[address] [facility] XR CHEST FRONTAL ONLY [id number] RESULTI nterpreted by:Surendra Hernandez MDINDICATION: Status post trauma.TECHNIQUE: A portable frontal view of the chest was obtained in the 75 degrees erect position.COMPARISON: None available.FINDINGS: Cardiac leads seen overlying patient body.Lungs are clear bilaterally.No pneumothorax/pleural effusion.Cardiomediastinal silhouette within normal limits.Osseous structures are grossly intact.IMPRESSION: No acute abnormalities.This document has been electronically signed by Austin Rojas MD on 01/27/2021 12:30 PM Name Value Range Interpretation Code Description Data Krystle rce(s) Supporting Document(s) ID Date Data Source [id number] 01/27/2021 12:07:[address] [facility] Name Value Range Interpretation Code Description Data Krystle rce(s) Supporting Document(s) Glucose [Mass/volume] in Capillary blood by Glucometer 260 mg/dL 70- 140 H [facility] ID Date Data Source [id number] 01/27/2021 01:20:[address] [facility] Name Value Range Interpretation Code Description Data Krystle rce(s) Supporting Document(s) Color of Urine [facility] Clarity of Urine [facility] Specific gravity of Urine by Refractometry automated 1.017 1.003 -1.030 [facility] pH of Urine by Automated test strip 5.0 5.0-8.0 [facility] Protein [Mass/volume] in Urine by Automated test strip 100 mg/dL Neg ative [facility] Glucose [Mass/volume] in Urine by Automated test strip Neg ative [facility] Ketones [Mass/volume] in Urine by Automated test strip 5 [facility] Bil[facility].total [Presence] in Urine by Automated test strip Negative [facility] Hemoglobin [Presence] in Urine by Automated test strip Neg ative A [facility] Leukocyte esterase [Presence] in Urine by Automated test strip Negative [facility] Nitrite [Presence] in Urine by Automated test strip Negati ve [facility] Leukocytes [#/area] in Urine sediment by Automated count 1 /HPF 0 -5 [facility] Erythrocytes [#/area] in Urine sediment by Automated count 0-3 [facility] Epithelial cells.squamous [#/area] in Urine sediment by Automate d count None [facility] Mucus [#/area] in Urine sediment by Microscopy low power field None [facility] Hyaline casts [#/area] in Urine sediment by Microscopy low p ower field 5 /LPF None [facility] ID Date Data Source [id number] 01/27/2021 01:51:21 PM EDT Health system Value Range Interpretation Code Description Data Krystle rce(s) Supporting Document(s) Amphetamine [Presence] in Urine by Screen method Negative [facility] Benzodiazepines [Presence] in Urine by Screen method Negat [facility] Cannabinoids [Presence] in Urine by Screen method Negative [facility] Benzoylecgonine [Presence] in Urine by Screen method Negat [facility] Methadone [Presence] in Urine by Screen method Negative [facility] Opiates [Presence] in Urine by Screen method Negative [facility] (NOTE)Positive results are presumptive a nd unconfirmed;confirmatorytesting can be ordered at the [facility] at [phone] [facility] at [phone] within 5 days of collection. Oxycodone [Presence] in Urine by Screen method Negative [facility] Fentanyl+Norfentanyl [Presence] in Urine by Screen method Negative [facility] Service comment [facility] Results below the indicated cutoff (ng/m L), are reported as"Negative." Note: for medical purposes only; not valid for legalor employment testing. ID Date Data Source [id number] 01/27/2021 10:58:[address] [facility] Name Value Range Interpretation Code Description Data Krystle rce(s) Supporting Document(s) [facility] [id number] lbm [file] [id number]== ID Date Data Source [id number] 01/27/2021 10:50:[address] [facility] CT HEAD WITHOUT CONTRAST [id number] LTInterpreted by:Ruy Dorman MDINDICATION: hx subarachnoid status post fallTECHNIQUE: Contiguous axial CT images of the head from the base of the skull to the vertex without IV contrast. Automated dose lowering techniques and/or adjustment according to patient size were utilized for this exam.COMPARISON: CT head from outside study from 01/27/2021.FINDINGS: Interval development of hemorrhagic contusions in the right frontal lobe and right frontal temporal lobe. Subtle subarachnoid hemorrhage/hemorrhagic contusions are also noted in left frontotemporal region Scattered subarachnoid hemorrhage in bilateral cerebral hemispheres. Linear hyperdensities in the sulci of the cerebellum could represent subarachnoid hemorrhage. 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 Generalized atrophy with commensurate enlargement of the ventricular system. The basal cisterns are patent.Periventricular and subcortical nonspecific white matter hypoattenuation is most likely attributed to small vessel ischemic disease.Mild thickening of the left maxillary sinus. Mastoid air cells are clear. Nondisplaced left parietal bone fracture. Mild soft tissue swelling is noted in the left parietal region. IMPRESSION:1. Interval development of hemorrhagic contusions in the right frontal and temporal lobes. Scattered subarachnoid hemorrhage in bilateral cerebral and cerebellar hemispheres.2. Subtle subarachnoid hemorrhage/hemorrhagic contusions in the left frontotemporal region.3. Redemonstration of a nondisplaced left parietal bone fracture.This document has been electronically signed by Heidy Moreno MD on 01/27/2021 10:47 AM Name Value Range Interpretation Code Description Data Krystle rce(s) Supporting Document(s) ID Date Data Source [id number] 01/27/2021 12:40:51 PM [facility] Name Value Range Interpretation Code Description Data Krystle rce(s) Supporting Document(s) Hemoglobin A1c/Hemoglobin.total in Blood by HPLC 9.1 % 4.0-6.0 H [facility] (NOTE)<5.7% Average risk of diabetes (ADA)5.7-6.4% Increased risk of diabetes(ADA)>/= 6.5% Diagnostic for diabetes(ADA) Glucose mean value [Mass/volume] in Blood Estimated fr om glycated hemoglobin 214 mg/dL <126 H [facility] ID Date Data Source [id number] 01/27/2021 09:36:29 AM [facility] Name Value Range Interpretation Code Description Data Krystle rce(s) Supporting Document(s) Leukocytes [#/volume] in Blood by Automated count 11.2 10*3/uL 4-10 [facility] Erythrocytes [#/volume] in Blood by Automated count 4.38 10*6/uL 4.6- 6.1 L [facility] Hemoglobin [Mass/volume] in Blood 14.1 g/dL 13.5-18 [facility] Hematocrit [Volume Fraction] of Blood by Automated count 41.0 % 4 1-53 [facility] Erythrocyte mean corpuscular volume [Entitic volume] by Auto mated count 93.5 fL 80-96 [facility] Erythrocyte mean corpuscular hemoglobin [Entitic mass] by Automated count 32.2 pg 27-33 [facility] Erythrocyte mean corpuscular hemoglobin concentration [Mass/volume] by Automated count 34.4 g/dL 32.0-[facility] distribution width [Ratio] by Automated count 12.4 % 11.5-14.5 [facility] Platelets [#/volume] in Blood by Automated count 168 10*3/uL 150-400 [facility] Differential cell count method - Blood [facility] Neutrophils/100 leukocytes in Blood by Automated count 78 % [facility] Lymphocytes/100 leukocytes in Blood by Automated count 12 % [facility] Monocytes/100 leukocytes in Blood by Automated count 8 % [facility] Eosinophils/100 leukocytes in Blood by Automated count 1 % [facility] Basophils/100 leukocytes in Blood by Automated count 1 % [facility] Neutrophils [#/volume] in Blood by Automated count 8.89 10*3/uL 1.8-7 .0 [facility] Lymphocytes [#/volume] in Blood by Automated count 1.29 10*3/uL 1.2-4 .0 [facility] Monocytes [#/volume] in Blood by Automated count 0.89 10*3/uL 0-0.8 H [facility] Eosinophils [#/volume] in Blood by Automated count 0.07 10*3/uL 0-0.5 [facility] Basophils [#/volume] in Blood by Automated count 0.06 10*3/uL 0-0.2 [facility] Nucleated erythrocytes/100 leukocytes [Ratio] in Blood by Automated count 0 /100{WBCs} 0-0 [facility] ID Date Data Source [id number] 01/27/2021 09:45:52 AM [facility] Value Range Interpretation Code Description Data Krystle rce(s) Supporting Document(s) Prothrombin time (PT) 13.7 s 11.6-14.0 [facility] INR in Platelet poor plasma by Coagulation assay 1.09 [facility] Routine intensity oral anticoagulation I NR is typically 2.0-3.0. Target INR must be clinically individualized. ID Date Data Source [id number] 01/27/2021 09:45:52 AM [facility] Value Range Interpretation Code Description Data Krystle rce(s) Supporting Document(s) aPTT in Platelet poor plasma by Coagulation assay 25.9 s 24.0-33. 0 [facility] ID Date Data Source [id number] 01/27/2021 09:59:10 AM [facility] Value Range Interpretation Code Description Data Krystle rce(s) Supporting Document(s) Bicarbonate [Moles/volume] in Serum 17 mmol/L 22-29 L [facility] Chloride [Moles/volume] in Serum or Plasma 100 mmol/L 98-107 [facility] Creatinine [Mass/volume] in Serum or Plasma 0.61 mg/dL 0.70-1.20 L [facility] Glucose [Mass/volume] in Serum or Plasma 279 mg/dL 70-140 [facility] Potassium [Moles/volume] in Serum or Plasma 3.8 mmol/L 3.4-5.1 [facility] Sodium [Moles/volume] in Serum or Plasma 134 mmol/L 136-145 L [facility] Urea nitrogen [Mass/volume] in Serum or Plasma 7 mg/dL 8-23 L [facility] Anion gap 3 in Serum or Plasma 17 mmol/L 8-15 [facility] Osmolality of Serum or Plasma by calculation 286 mosm/kg 275-300 [facility] Creatinine/Urea nitrogen [Mass Ratio] in Serum or Plasma 11 [facility] Calcium [Mass/volume] in Serum or Plasma 8.2 mg/dL 8.8-10.2 L [facility] Glomerular filtration rate/1.73 sq M pre dicted among non-blacks [Volume Rate/Area] in Serum or Plasma by Creatinine-based formula (MDRD) >6 0 [facility] Glomerular filtration rate/1.73 sq M pre dicted among blacks [Volume Rate/Area] in Serum or Plasma by Creatinine-based formula (MDRD) >60 [facility] ID Date Data Source [id number] 01/27/2021 12:02:01 PM EDT [facility] Name Value Range Interpretation Code Description Data Krystle rce(s) Supporting Document(s) Albumin [Mass/volume] in Serum or Plasma by Bromocresol green (BCG) dye binding method 4.0 g/dL 3.5-5.2 [facility] Bilirubin.total [Mass/volume] in Serum or Plasma 1.1 mg/dL <1.2 [facility] Bilirubin.direct [Mass/volume] in Serum or Plasma 0.3 mg/dL <0.3 [facility] Alkaline phosphatase [Enzymatic activity/volume] in Serum or Plasma 72 U/L 40-129 [facility] Aspartate aminotransferase [Enzymatic activity/volume] in Serum or Plasma 18 U/L <40 [facility] Alanine aminotransferase [Enzymatic activity/volume] in Seru m or Plasma 21 U/L <41 [facility] Protein [Mass/volume] in Serum or Plasma 6.2 g/dL 6.4-8.3 L [facility] ID Date Data Source [id number] 01/27/2021 12:02:[address] [facility] Name Value Range Interpretation Code Description Data Krystle rce(s) Supporting Document(s) Cholesterol [Mass/volume] in Serum or Plasma 158 mg/dL <200 [facility] Triglyceride [Mass/volume] in Serum or Plasma 108 mg/dL <150 [facility] Cholesterol in HDL [Mass/volume] in Serum or Plasma 82 mg/dL >40 [facility] Cholesterol in LDL [Mass/volume] in Serum or Plasma by calcu lation 55 mg/dL <100 [facility] Cholesterol in VLDL [Mass/volume] in Serum or Plasma by calc ulation 22 mg/dl 16-42 [facility] Cholesterol non HDL [Mass/volume] in Serum or Plasma 76 mg/dL <130 [facility] ID Date Data Source [id number] 01/27/2021 12:02:01 PM EDT Health system Value Range Interpretation Code Description Data Krystle rce(s) Supporting Document(s) Phosphate [Mass/volume] in Serum or Plasma 3.6 mg/dL 2.5-4.5 [facility] ID Date Data Source [id number] 01/27/2021 12:02:[address] [facility] Name Value Range Interpretation Code Description Data Krystle rce(s) Supporting Document(s) Magnesium [Mass/volume] in Serum or Plasma 1.9 mg/dL 1.6-2.4 [facility] ID Date Data Source [id number] 01/27/2021 03:59:00 AM EDT [facility] Name Value Range Interpretation Code Description Data Krystle rce(s) Supporting Document(s) SARS coronavirus 2 RNA [Presence] in Res piratory specimen by TREY with probe detection NEGATIVE [facility] This lab was ordered by [facility] a nd reported by [facility]. ID Date Data Source [id number] 11/22/2020 08:59:[address] [facility] Name Value Range Interpretation Code Description Data Krystle rce(s) Supporting Document(s) Progress Note [facility] [id number]/JAFngUWSpp9RcZUlqNLb7MCubTSDxB1BjNQW7rH2vLTY4YJsQDcTiYsWpFvHz lbm [file] N2LGl5KDM+QI6cQYu+Jt7Xt9VtxkG0qzYdHVpxJPL0TO3YVKWVP8ELFu== ID Date Data Source [id number] 09/28/2020 12:49:[address] [facility] Name Value Range Interpretation Code Description Data Krystle rce(s) Supporting Document(s) Progress Note [facility] LKSBAr4sSiFJMtRw69/MSDwlAUVwi9NzUEttMEg0JSwnBYJfQ9HpNUZ3dX3aNBB1RUnYAmZtVzKrSYJ8 lbm [file] CGBtIJveYuc1NkEkAG5AOi7ONgT0ILN7lZZfCm3MTcYiZCwTCpLyUN8AZOb= ID Date Data Source [id number] 09/24/2020 01:54:[address] [facility] Name Value Range Interpretation Code Description Data Krystle rce(s) Supporting Document(s) Progress Note [facility] IRRTZk9nUwBXSbEy27/NEAgbVRKma3ExIXyjFCd6MRayZBLoG7EtTZS3pO6gBGO3HAuQTcVeGxTmFWKv lbm [file] YNCg== ID Date Data Source [id number] 09/15/2020 12:20:[address] [facility] Name Value Range Interpretation Code Description Data Krystle rce(s) Supporting Document(s) Progress Note [facility] WHJIQw5qQoBRBhTo14/UGDezLQEyq2MgEIkkPSc9RIevWJXaW9GdMFJ2iH7sUTZ8RFjPGmXsJbTbYTXv lbm [file] HwXVOeYpA0DbTrLxRrJNG+CZ5tHRj+Pr2Gm3GbkaE6idSoBVggUPT4LF7VBEPJD4ISXb== ID Date Data Source [id number] 09/15/2020 12:20:00 PM EDT [facility] Name Value Range Interpretation Code Description Data Krystle rce(s) Supporting Document(s) SARS-CoV-2 RNA 2018 nCoV Real-Time RT-PCR: NOT DETECTED [facility] This lab was ordered by [facility] and reported by [facility]. ID Date Data Source [id number] 09/16/2020 12:02:[address] [facility] Name Value Range Interpretation Code Description Data Krystle rce(s) Supporting Document(s) Specimen source [Identifier] of Unspecified specimen [facility] SARS-CoV-2 RNA 2019 nCoV Real-Time RT-PCR: NOT DETECTED [facility] Assay Performed [facility] Patients first test for condition [facility] Patient employed in healthcare setting [facility] Patient has symptoms related to condition [facility] When did you start to experience these symptoms [Date and time] [Phen X] [facility] Patient was hospitalized because of this condition [facility] patient was admitted to ICU for condition [facility] Patient resides in a congregate care setting [facility] status [facility] ID Date Data Source PLZ CHEST 2 VIEW 09/11/2020 12:00:00 AM EDT eCW1 ([facility]) Name Value Range Interpretation Code Description Data Krystle rce(s) Supporting Document(s) PLZ CHEST 2 VIEW eCW1 ([facility]) ID Date Data Source [id number] 09/05/2020 01:05:00 PM EDT [facility] Name Value Range Interpretation Code Description Data Krystle rce(s) Supporting Document(s) SARS-CoV-2 (COVID-19) RNA [Presence] in Respiratory specimen by TREY with probe detection Not Detected [facility] This lab was ordered by [facility] and reported by [employer] ID Date Data Source [id number] 08/31/2020 12:00:00 AM EDT eCW1 ([facility]) Name Value Range Interpretation Code Description Data Krystle rce(s) Supporting Document(s) Microalbumin/Creatinine [Ratio] in Urine 730.6 0.0-30.0 GABRIELLE/CREAT RATIO eCW1 ([facility]) Microalbumin/Creatinine [Mass Ratio] in Urine 40.1 CREATININE, URINE eCW1 ([facility]) Albumin/Creatinine [Mass Ratio] in Urine 293.0 MALB URINE SIEMENS eCW1 ([facility]) ID Date Data Source Basic Metabolic Profile (BMP) 08/31/2020 12:00:00 AM EDT eCW 1 ([facility]) Name Value Range Interpretation Code Description Data Krystle rce(s) Supporting Document(s) 250 70-100 GLUCOSE, FASTING eCW1 ([facility]) > 60.0 >49 GLOMERULAR FILTRATION RATE eCW 1 ([facility]) 0.61 0.70-1.30 CREATININE FOR GFR eCW1 (Count includes the [facility]) 7 7-18 BLOOD UREA NITROGEN eCW1 ([facility]) 4.3 3.5-5.1 POTASSIUM SERUM eCW1 ([facility]) 133 136-145 SODIUM LEVEL eCW1 ([facility]) 102 98-107 CHLORIDE LEVEL eCW1 ([facility]) 25 21-32 CARBON DIOXIDE LEVEL eCW1 ([facility]) 8.5 8.8-10.2 CALCIUM LEVEL eCW1 ([facility]) ID Date Data Source [id number] 08/31/2020 12:00:00 AM EDT eCW1 ([facility]) Name Value Range Interpretation Code Description Data Krystle rce(s) Supporting Document(s) Hemoglobin A1c/Hemoglobin.total in Blood 7.5 HEMOGLOBIN A1c eCW1 ([facility]) ID Date Data Source [id number] 07/17/2020 12:00:00 AM EST [facility] Name Value Range Interpretation Code Description Data Krystle rce(s) Supporting Document(s) SARS-CoV-2 (COVID-19) RNA [Presence] in Respiratory specimen by TREY with probe detection Positive for 2019-nCoV [facility] This lab [facility] and reported by [employer] ID Date Data Source [id number] 07/12/2020 11:28:[address] [facility] Name Value Range Interpretation Code Description Data Krystle rce(s) Supporting Document(s) Progress Note [facility] QUKVNx3kErPHKmHy97/SCXeiOMPtg8GcCNrlCMp5ITlcJMYdH3JtBOS6gU4iENA9ENtTCrWmCuXoDEG5 [facility] [file] ZpWk7ABvKpFFUBVaElRP2ILJi= ID Date Data Source [id number] 06/14/2020 12:00:00 PM EST [facility] Name Value Range Interpretation Code Description Data Krystle rce(s) Supporting Document(s) SARS coronavirus 2 RNA [facility] This lab was ordered by [facility] and reported by [facility]. ID Date Data Source [id number] 05/23/2020 11:21:[address] [facility] Name Value Range Interpretation Code Description Data Krystle rce(s) Supporting Document(s) Progress Note [facility] YHADMk1aPoFYXxQu85/IORclZAFdb3DnJGncVTm0JDusAPZcQ5YwRZD6hT9wADQ1VDhISaVuYbZzNsI2 lbm [file] FRAUD MANAGER+En1GNAMaSSi6C0R9ASIqAJn9G4DVT3NOLFXlCM tnZZcfIOOdJGh8H4D0QVIbD1FEQ0Itljtors8+OG1UW37FEIZgJRw7X5I7yAQiG7A9iHgQbEX5SP4PMK 6KbJl8xILtjN1+VR1ZH7AWYvLmKWl0Y9O6qVHhV7U5zRoCfRK4VG6LDU7EqHBuAQJobtEkFg6mF7MXNY oTHoJTLBU7LR9TaPPhYH3QhLWUI5RxjARmTc3tCGcw jGZacQ3cIp1zLRfcXL2YFhPWBBxODPA7PY7DlHYjUF1CzTBBJ8TulNOoMi9pJYmxoPKhus3+QM1EKOOx Gd8FPz5+VBwmsiQdFexEDpM0ANMet7FuWJz7VV8KSZ0wrApaXOV5Pk3CqDI7vKHmK1vGJM9KkOOeZ01a hPDyZZVrUt7VElB7hvRirP5QDR15zVOpk9S8XAZpG8 lmEIaqi64cAMszDQsGVB8lBNAXCGnaNIyvHQZ7DeRhmliaFHFcJd2CSpUhHJi2kD0poYU7MZN0AuxruB GjPJpuRsZdVdTtMeD3yFdfrbt0TSnjYV0mYSkxokvfNPTxPed+LHwfKBUnZFOwJxeAPYIxvW9ennV6rp TgXCtlhWVrYh4ai3n8VmzrOb5mFz5pSRj9DyOyLsZv THGsBg2oiH42OJizgbWwGm5YIzTeOCB0V8PjIasHHKP+DZvyKLnomBn1dVDoVKOtHc0JERKoCWUlIBMa ICAgICAgICAgICAgICAgICAgICAgICAgICAgICAgICAgICAgICAgICAgICAgICAgICAgICAgICAgICAg ICAgICAgICAgICAgICAgICAgICAgICAgICAgICAgIA 0KICAgICAgICAgICAgICAgICAgICAgICAgICAgICAgICAgICAgICAgICAgICAgICAgICAgICAgICAgIC WqOFZmLOWzYJPoSUYeCVTaNTKhPVYoZXRaKQAnLJPoNUBhQKHnCHTySV1BDUBpPQUnPPUvLKRaDXGgWR AgICAgICAgICAgICAgICAgICAgICAgICAgICAgICAg XSBqLJRzUXOgJAFvJDLpNXTeNWVyOIVzUSChNSCrXZGkTARdFQQiJFFuEHIrDRYqJKEzLA2XOIOaNWYn ICAgICAgICAgICAgICAgICAgICAgICAgICAgICAgICAgICAgICAgICAgICAgICAgICAgICAgICAgICAg ICAgICAgICAgICAgICAgICAgICAgICAgICAgICAgIC RfNL0FURNaNJCfCHPdKERgQVEnBQEpCOVeEWZaODRqQBYxWJPoKERgRMRsJNVtDJZzPYUgYBEjVIAcKW UjWMDjUDQdQTIeOFDcWZLgHITlVIJsYGZoWIAkTIJcNUDlPFExLLDwZQFoZY4MYABaZPUsKKTlYVZeJY AgICAgICAgICAgICAgICAgICAgICAgICAgICAgICAg RREiWSCePEBwNIVfJUQfHLUbJNUcDVYkPUEcHCBqWXWnBONzBGKxQCZpAWBhKJLoRYSqXIDvZN0PNZKa ICAgICAgICAgICAgICAgICAgICAgICAgICAgICAgICAgICAgICAgICAgICAgICAgICAgICAgICAgICAg ICAgICAgICAgICAgICAgICAgICAgICAgICAgICAgIC TiNWFxWU0CXLBfTVWsVLLgNKBpINSrQXTfSWEgNBZdBSYlAMXpPKIaMWWpEBKrPRIwSERnBSVtMXMuCB KdGCNpDSBcGWJhQAJoYUYaSKLxSSTpIVHpGMRgCBUqNIZhWGIwBKIoGAVeBHDyOR6QTITiHZApFOKaJH AgICAgICAgICAgICAgICAgICAgICAgICAgICAgICAg ZFLjDGTjUPHjVWXhNCHmNCScOTOqROHpBGDtFWLlHOCfQHMdASClVOUrIUHbXTBsYGPoAYQqMYCpIF8H ICAgICAgICAgICAgICAgICAgICAgICAgICAgICAgICAgICAgICAgICAgICAgICAgICAgICAgICAgICAg ICAgICAgICAgICAgICAgICAgICAgICAgICAgICAgIC AwHIDhALSeDY5ICP36dKEjw2A3JWMuLU4qvka/Ac8XIOpsuwRznJPbSA4UAqSyIT0vlj1VCdDkBH8eoc 8OGHkYDcYiE6G3aMIvQYNjHWYSHqJsD07yQWcrDt61ZAzyCSUrEyOqJHg7Ki7HBwYwD3sqQKRkKeD6YQ NrUmI7OPRqZrC8ANKnYpYjFIViCDZfFXQtEJDUMLH3 YEWfHzSlBRdsFL3Sr3NldUN7UZd+Rn1ESW5ty2NbXHmlVHWoMH7dqo3AYNoMQwPlB2VuotL3LND0ONGu Rh5AUSJfRFQllWJxRrWoVRWRTbPdV8AvnO19MXBKKs9+PXfnrlZzMtaYNoH0HLNnk6XtGAj5WT4WFHAn OCs5cJKdGVHjC0Rgu9MpLw61JJVvLxsfGUzvrUVgwI CSZHQenQZmX8cxDA7IUID0LHGsRsohFzXwKQLuNZaiALJPXAqALnYyY3Rjn2DpDyG4FQFbEjZvJAdwQT CyLhO8UU57sFxsTF4FAYWtYORmNA53RWP9OEHfSm5UTy9CXtLkAQ3dwl5VVxnlSLAoTxvMGta9LIazQR 7ZcKCiE3PilMLog2kMQaJvK8RKQUYhFURzIr0METVv AzEoOGVjTElwBT6kPESvYJHLhRmqjcL8MU2DYM7oviKuPE7ZUgDaCc1nMm3AUyFhA0FhQ2CvUYDjHLQC ATxvTC2UCGnjVE2vHH7Oa8PKcJDvbW2bpc8DZHRuWPZdYjufwm3GSkfkZ1V1eYwyZPRvXsCkIGJJUYuu GS4CATUzJAO9PZFvIVGnBQLEMrQtH18yWT5PB9Jby5 5aIxD4KMXiPhTrRNqaQN35hDegwcEeuYEknStnKU5GGh8+DQplbmRvYmoNCnhyZWYNCjAgMzgNCjAwMD VnDDJmBDHoDdI7EeKmQr3AMLRiXFJnMCNwWjBtPZEsMWRwYTqxNYJyDUM9UFH5AZSyUBFgNJ3HKsEnFX YyBwxfOpNlZXRmWITwbg0WNUApDNHdGLL9IeBrNQFg QGFwHWyjPFYtNFWzTen4FQShCFNwQG1RBxYbBLPjXHD3ILKrKBGzLBYjhr8WERGaLEFdVjG1HSVwMLYp HNJeRCwpHONlKRY3GlN2FWEzWAIhZL0ZKhKxKSWhZEd6FJOxHTVdQDDswo0KZOYrHBNbCVo3IIBmVHIx AZXdBWztXVMxYUCyMShhKOTpMDIrZR7BLsAuJIUqZO YiMkiqAZKrZVOkwi2THLFmYIHoIPN9XWAyTPRoJCPeKQpyYQKrNFV4Zac2MZWrIEVlHB7FExQiXJSjLC c6DyBpASFkRVHugf4XKOThPRJgHzv5YvJoUYDjEDWxNDnoQSGjHAI6IqUaXGGuWIKwJK4AJdBzKXMmJG l6TRukFSQsPILivj4AWYXvELGjOOG8ZoJeSOSjVJGs VBwjLPLvDNQuMCHrYTLvIOYrJP2FZtJoHVUkPaOtSPDfCWFlBAOywm5WHTPbBBJhKHXuZJDwVYJkTAJy SLiuMYUuWIUcHTBnPGChLCMdCV9IFyGdWMAuQoFdWBDdMNIvXKWcgi0FIJDqMAKzQmQ6RTBoQVHuUDUl HQueIXOaIPMkIqC0NWTjJEUyLH9AIkQbLQHgTfR0ZO XqRAKdDCEllt0DHFYaJDCoFcxaZKFaNULkQIDlECfcNNTsSYMxYIZ7NPVsMHCkZV5LTdKxEITzUdWcXS mgRYCxBKIrnp7YPGDnTRQaRLWxBRLbBKUhTAPqNGydYENwZDL9TpL3PTKoCQPkCC3AOnXaIPJoRpKeJO zrIHWiYRHdst5BXBNdROUiKBalNEYkUCBjEGOmEGhb TAUgTWZ0UpSnKOVaTDFyBB4PSfTcCRRhKyosAtQbRCXpHIHowx3YSJZfTPRdJcTpKFDuSAKaCZWgGZg3 lkNxuIGqQCl9EK9NL2XhunWdLaeHBo2Ft992INM8XJKeEm5HK4jaRe9zXMIjFEBGSk1OFNv7KMUbGVKo H5CwXwSbW0W6Ffy9HXU4QPP4YVx9PYDwYXK+IDxlMD YiClWzMnTmYHIrGLOkNAVzZaUeDTA0ErmoMlF6UW2lNOEVNv7+CGqyzZWhkTxuQUFOJqT4YiG2ISjbLL VPR[facility]0K Procedure Social History Code Duration Value Status Description Data Source(s ) Alcohol intake 01/27/2021 12:00:00 AM EDT Current drinker of al cohol (finding) completed Current drinker of alcohol (finding) [facility] Tobacco use and exposure 01/27/2021 12:00:00 AM EDT Never used co mpleted Never used [facility] Cigarette pack-years 01/27/2021 12:00:00 AM EDT UNK completed [facility] Cigarettes smoked current (pack per day) - Reported 01/28/20 12:00:00 AM EDT UNK completed [facility] Smoking 01/27/2021 12:00:00 AM EDT Former smoker completed Former smoker [facility] Smoking 12/27/2020 12:00:00 AM EDT Former Smoker completed Former Smoker eCW1 ([facility]) Smoking 12/27/2020 12:00:00 AM EDT Former Smoker completed Former Smoker eCW1 ([facility]) Smoking 12/27/2020 12:00:00 AM EDT Former Smoker completed Former Smoker eCW1 ([facility]) Smoking 12/27/2020 12:00:00 AM EDT Former Smoker completed Former Smoker eCW1 ([facility]) Smoking 12/27/2020 12:00:00 AM EDT Former Smoker completed Former Smoker eCW1 ([facility]) Smoking 12/14/2020 12:00:00 AM EDT Former Smoker completed Former Smoker eCW1 ([facility]) Smoking 12/14/2020 12:00:00 AM EDT Former Smoker completed Former Smoker eCW1 ([facility]) Smoking 12/14/2020 12:00:00 AM EDT Former Smoker completed Former Smoker eCW1 ([facility]) Smoking 12/14/2020 12:00:00 AM EDT Former Smoker completed Former Smoker eCW1 ([facility]) Alcohol intake 11/22/2020 12:00:00 AM EDT Current non-d alcides of alcohol (finding) completed Current non-drinker of alcohol (finding) [facility] Alcohol intake 09/28/2020 12:00:00 AM EDT Current non-d alcides of alcohol (finding) completed Current non-drinker of alcohol (finding) [facility] Alcohol intake 09/24/2020 12:00:00 AM EDT Current non-d alcides of alcohol (finding) completed Current non-drinker of alcohol (finding) [facility] Smoking 09/11/2020 12:00:00 AM EDT Former Smoker completed Former Smoker eCW1 ([facility]) Smoking 09/11/2020 12:00:00 AM EDT Former Smoker completed Former Smoker eCW1 ([facility]) Smoking 09/11/2020 12:00:00 AM EDT Former Smoker completed Former Smoker eCW1 ([facility]) Smoking 09/11/2020 12:00:00 AM EDT Former Smoker completed Former Smoker eCW1 ([facility]) Smoking 09/11/2020 12:00:00 AM EDT Former Smoker completed Former Smoker eCW1 ([facility]) Smoking 09/11/2020 12:00:00 AM EDT Former Smoker completed Former Smoker eCW1 ([facility]) Smoking 08/21/2020 12:00:00 AM EST Former Smoker completed Former Smoker eCW1 ([facility]) Smoking 08/21/2020 12:00:00 AM EST Former Smoker completed Former Smoker eCW1 ([facility]) Smoking 08/02/2020 12:00:00 AM EST Former Smoker completed Former Smoker eCW1 ([facility]) Alcohol intake 07/12/2020 12:00:00 AM EST Current non-d alcides of alcohol (finding) completed Current non-drinker of alcohol (finding) [facility] Vital Signs ID Date Data Source UNK Name Value Range Interpretation Code Description Data Source(s) Body weight 171.2 [lb_av] 171.2 [lb_av] eCW1 ([facility]) Body height 69 [in_i] 69 [in_i] eCW1 ([facility]) Body mass index (BMI) [Ratio] 25.28 kg/m2 25.28 kg/m2 eCW1 ([facility]) Heart rate 107 /min 107 /min eCW1 ([facility]) Respiratory rate 18 /min 18 /min eCW1 ([facility]) Body temperature 98.1 [degF] 98.1 [degF] eCW1 ( [facility]) Systolic blood pressure 137 mm[Hg] 137 mm[Hg] e CW1 ([facility]) Diastolic blood pressure 73 mm[Hg] 73 mm[Hg] eCW1 ([facility]) Body weight 169.4 [lb_av] 169.4 [lb_av] eCW1 ([facility]) Body height 69 [in_i] 69 [in_i] eCW1 ([facility]) Body mass index (BMI) [Ratio] 25.01 kg/m2 25.01 kg/m2 eCW1 ([facility]) Heart rate 95 /min 95 /min eCW1 ([facility]) Respiratory rate 18 /min 18 /min eCW1 ([facility]) Body temperature 96.4 [degF] 96.4 [degF] eCW1 ( [facility]) Systolic blood pressure 142 mm[Hg] 142 mm[Hg] e CW1 ([facility]) Diastolic blood pressure 84 mm[Hg] 84 mm[Hg] eCW1 ([facility]) Body weight 171 [lb_av] 171 [lb_av] eCW1 (Count includes the [facility]) Body height 69 [in_i] 69 [in_i] eCW1 ([facility]) Body mass index (BMI) [Ratio] 25.25 kg/m2 25.25 kg/m2 eCW1 ([facility]) Heart rate 66 /min 66 /min eCW1 ([facility]) Respiratory rate 18 /min 18 /min eCW1 ([facility]) Body temperature 97.4 [degF] 97.4 [degF] eCW1 ( [facility]) Systolic blood pressure 138 mm[Hg] 138 mm[Hg] e CW1 ([facility]) Diastolic blood pressure 84 mm[Hg] 84 mm[Hg] eCW1 ([facility]) Body weight 77.566 kg 77.566 kg MEDENT ([facility], ) Body height 71 [in_i] 71 [in_i] MEDENT ([facility]) 5'11" Body weight 171.00 [lb_av] 171.00 [lb_av] MEDEN T ([facility]) Body mass index (BMI) [Ratio] 23.8 kg/m2 23.8 k g/m2 MEDENT ([facility]) Systolic blood pressure 138 mm[Hg] 138 mm[Hg] M EDENT ([facility]) Diastolic blood pressure 86 mm[Hg] 86 mm[Hg] MEDENT ([facility]) Omar body weight 172 [lb_av] 172 [lb_av] MEDEN T ([facility]) ID Date Data Source [id number] 02/26/2021 07:57:59 AM [facility] Name Value Range Interpretation Code Description Data Source(s) TRANSFER FROM [facility] ID Date Data Source [id number] 11/22/2020 09:05:16 AM [facility] Name Value Range Interpretation Code Description Data Source(s) PREFERRED NAME [facility] ID Date Data Source [id number] 11/22/2020 09:05:38 AM [facility] Name Value Range Interpretation Code Description Data Source(s) PREFERRED NAME [facility] PREFERRED NAME [facility] ID Date Data Source [id number] 11/08/2020 09:19:[address] [facility] Name Value Range Interpretation Code Description Data Source(s) PREFERRED NAME [facility] ID Date Data Source [id number] 10/15/2020 04:29:[address] [facility] [facility] Name Value Range Interpretation Code Description Data Source(s) PREFERRED NAME [facility] ID Date Data Source [id number] 10/15/2020 09:09:[address] [facility] Name Value Range Interpretation Code Description Data Source(s) PREFERRED NAME [facility] ID Date Data Source [id number] 09/24/2020 01:50:[address] [facility] Name Value Range Interpretation Code Description Data Source(s) PREFERRED NAME [facility] ID Date Data Source [id number] 09/28/2020 12:49:[address] [facility] Name Value Range Interpretation Code Description Data Source(s) PREFERRED NAME [facility] PREFERRED NAME [facility] ID Date Data Source [id number] 09/24/2020 01:54:[address] [facility] Name Value Range Interpretation Code Description Data Source(s) PREFERRED NAME [facility] ID Date Data Source [id number] 09/20/2020 09:59:[address] [facility] Name Value Range Interpretation Code Description Data Source(s) PREFERRED NAME [facility] ID Date Data Source [id number] 09/16/2020 12:02:[address] [facility] Name Value Range Interpretation Code Description Data Source(s) PREFERRED NAME [facility] ID Date Data Source [id number] 06/04/2020 01:47:[address] [facility] Name Value Range Interpretation Code Description Data Source(s) WEIGHT RECORDED 168 lb 168 lb [facility] Body height Measured 71 in 71 in [facility] Patient Treatment Plan of Care Planned Activity Planned Date Details Description Data Source (s) Insulin Glargine 100 UNT/ML Injectable Solution 02/01/2021 09:00:00 PM [facility] ondansetron (ZOFRAN) injection 4 mg 02/01/2021 09:59:54 AM [facility] Insulin Glargine 100 UNT/ML Injectable Solution 02/01/2021 12:00:00 AM [facility] Sodium Chloride 1000 MG Oral Tablet 01/31/2021 12:00:00 AM [facility] lacosamide 100 MG Oral Tablet 01/31/2021 12:00:00 AM [facility] Hydralazine Hydrochloride 20 MG/ML Injectable Solution 01/29/2021 11:51:47 AM [facility] ospital labetalol (TRANDATE) injection 10 mg 01/29/2021 11:51:36 AM [facility] Magnesium Hydroxide 80 MG/ML Oral Suspension 01/27/2021 10:00:00 PM [facility] Glucose 0.417 MG/MG Oral Gel 01/27/2021 11:21:27 AM [facility] dextrose 50 % IV solution 25 mL 01/27/2021 11:21:26 AM [facility] Glucagon 1 MG Injection 01/27/2021 11:21:26 AM [facility] Albuterol 0.83 MG/ML Inhalant Solution 01/27/2021 11:19:58 AM [facility] sennosides, JAIL 35.2 MG/ML Oral Solution 01/27/2021 11:19:26 AM [facility] ondansetron (ZOFRAN) 4 MG/2ML injection 01/27/2021 10:35:05 AM [facility] Psyllium 51.7 % 12/26/2020 12:00:00 AM [facility] eCW1 ([facility]) gabapentin 300 MG Oral Capsule 12/26/2020 12:00:00 AM ED eC1 ([facility]) Psyllium 51.7 % 12/26/2020 12:00:00 AM EDT eCW1 ([facility]) gabapentin 300 MG Oral Capsule 12/26/2020 12:00:00 AM EDT eCW1 ([facility]) Compazine 25mg 10/19/2020 12:00:00 AM EDT eCW1 ([facility]) Compazine 25mg 10/19/2020 12:00:00 AM EDT eCW1 ([facility]) Compazine 25mg 10/19/2020 12:00:00 AM EDT eCW1 ([facility]) Compazine 25mg 10/19/2020 12:00:00 AM EDT eCW1 ([facility]) Compazine 25mg 10/19/2020 12:00:00 AM EDT eCW1 ([facility]) Compazine 25mg 10/19/2020 12:00:00 AM EDT eCW1 ([facility]) Tamsulosin hydrochloride 0.4 MG Oral Capsule 09/28/2020 12:00:00 AM EDT eCW1 ([facility]) Tamsulosin hydrochloride 0.4 MG Oral Capsule 09/28/2020 12:00:00 AM EDT eCW1 ([facility]) Tamsulosin hydrochloride 0.4 MG Oral Capsule 09/28/2020 12:00:00 AM EDT eCW1 ([facility]) Tamsulosin hydrochloride 0.4 MG Oral Capsule 09/28/2020 12:00:00 AM EDT eCW1 ([facility]) Acetaminophen 325 MG / Hydrocodone Bitartrate 5 MG Ora l Tablet 09/19/2020 12:00:00 AM [facility] Cepacol Sore Throat 10-2.1 MG 07/02/2020 12:00:00 AM EST eCW1 ([facility]) Cepacol Sore Throat 10-2.1 MG 07/02/2020 12:00:00 AM EST eCW1 ([facility]) Prochlorperazine 10 MG Oral Tablet 06/28/2020 12:00:00 AM [facility] Lidocaine Pain Relief 4 % External Patch 05/28/2020 12:00:00 AM [facility] Diclofenac Sodium 0.01 MG/MG Topical Gel 05/26/2020 12:00:00 AM [facility] Compazine 25mg 05/22/2020 12:00:00 AM EST eCW1 ([facility]) Compazine 25mg 05/22/2020 12:00:00 AM EST eCW1 ([facility]) Compazine 25mg 05/22/2020 12:00:00 AM EST eCW1 ([facility]) HM Lidocaine Patch 4 % 05/22/2020 12:00:00 AM EST eCW1 ([facility]) Compazine 25mg 05/22/2020 12:00:00 AM EST eCW1 ([facility]) HM Lidocaine Patch 4 % 05/22/2020 12:00:00 AM EST eCW1 ([facility]) Compazine 25mg 05/22/2020 12:00:00 AM EST eCW1 ([facility]) Compazine 25mg 05/22/2020 12:00:00 AM EST eCW1 ([facility]) HM Lidocaine Patch 4 % 05/22/2020 12:00:00 AM EST eCW1 ([facility]) Compazine 25mg 05/22/2020 12:00:00 AM EST eCW1 ([facility]) HM Lidocaine Patch 4 % 05/22/2020 12:00:00 AM EST eCW1 ([facility]) Compazine 25mg 05/22/2020 12:00:00 AM EST eCW1 ([facility]) HM Lidocaine Patch 4 % 05/22/2020 12:00:00 AM EST eCW1 ([facility]) HM Lidocaine Patch 4 % 05/22/2020 12:00:00 AM EST eCW1 ([facility]) Compazine 25mg 05/22/2020 12:00:00 AM EST eCW1 ([facility]) HM Lidocaine Patch 4 % 05/22/2020 12:00:00 AM EST eCW1 ([facility]) Compazine 25mg 05/22/2020 12:00:00 AM EST eCW1 ([facility]) HM Lidocaine Patch 4 % 05/22/2020 12:00:00 AM EST eCW1 ([facility]) Compazine 25mg 05/22/2020 12:00:00 AM EST eCW1 ([facility]) Compazine 25mg 05/22/2020 12:00:00 AM EST eCW1 ([facility]) HM Lidocaine Patch 4 % 05/22/2020 12:00:00 AM EST eCW1 ([facility]) Compazine 25mg 05/22/2020 12:00:00 AM EST eCW1 ([facility]) HM Lidocaine Patch 4 % 05/22/2020 12:00:00 AM EST eCW1 ([facility]) HM Lidocaine Patch 4 % 05/22/2020 12:00:00 AM EST eCW1 ([facility]) Compazine 25mg 05/22/2020 12:00:00 AM EST eCW1 ([facility]) Acetaminophen 325 MG / Hydrocodone Bitartrate 10 MG Or al Tablet 05/07/2020 12:00:00 AM EST [facility] ospital celecoxib 200 MG Oral Capsule 10/11/2018 12:00:00 AM [facility] Insulin Glargine 100 UNT/ML Injectable Solution [facility] Aspirin 81 MG Oral Tablet [facility] Cisapride [facility]
--- OUTSIDE RECORDS SUMMARY | 2021-04-25 22:44 | CCD ---
Author Author [facility] Organization [facility] Address Unknown Phone Unavailable Care Team Providers Care [place] Technician Name Role Phone Rogers Perry MD Unavailable [...] Unavailable JACKY MOSCOSO Unavailable Unavailable Jeremiah MARTINO [id number] Unavailable Unavailable BEMichael PADILLA MD Unavailable Unavailable [...] Unavailable MEAD, Mert PARKER Unavailable Unavailable REX [id number], E YO [id number] Unavailable Unavailabl e REX [id number], E YO [id number] Unavailable Unavailabl e REX [id number], E YO [id number] Unavailable Unavailabl sangeeta ROBLES .[place] . Unavailable [...] is protected by Article 27-F of the [facility] Public Health law. If you continue you may have access to information: Regarding HIV / AIDS; Provided by facilities licensed or operated by the [facility] Office of Mental Health; or Provided by the [facility] Office for People With Developmental Disabilities. If such information is present, then the following [facility] mandated warning applies: This information has been [...] law may result in a fine or halfway sentence or both. A general authorization for the release of medical or other information is NOT sufficient authorization for further disc losure. Family History Family Member Name Family Member Gender Family Member Status Date o f Status Description Data Source(s) Unknown Male Problem MEDENT ([facility]) Unknown [facility] Unknown Unknown Problem [facility] ([facility], ) Unknown Unknown Problem [facility] ([facility], ) Unknown Unknown Problem [facility] ([facility], ) Encounters Encounter Providers Location Date Indications Data Source(s ) Outpatient Attender: NICHOL ONTIVEROS MDAttender: CANDIS WALKER MD 04/24/2021 12:00:00 AM [facility] Outpatient Referrer: JACKY MOSCOSO 04/24/2021 12:00:00 AM [facility] Outpatient Attender: NICHOL ONTIVEROS MDAttender: CANDIS WALKER MD 04/04/2021 12:00:00 AM [facility] Outpatient Referrer: JACKY MOSCOSO 04/04/2021 12:00:00 AM [facility] Outpatient Referrer: JACKY MOSCOSO 03/13/2021 12:00:00 AM [facility] Outpatient Attender: CANDIS GUZMÁN MDAttender: NICHOL ONTIVEROS MD 03/13/2021 12:00:00 AM [facility] Outpatient Attender: NICHOL ONTIVEROS MDAttender: CANDIS WALKER MD 03/07/2021 12:00:00 AM [facility] Outpatient Referrer: JACKY MOSCOSO 03/07/2021 12:00:00 AM [facility] [place] [address] [address] 02/12/2021 12:00:00 AM EDT eCW1 ([facility]) Inpatient Attender: Hermeilnda Perry MDAtt tuyet: NICHOL ONTIVEROS MDAttender: CANDIS GUZMÁN MDAttender: Yo Goodman MDAttender: YO GOODMAN [id number]: Rupert RoblesAttender: RUPERT ROBLES .Admitter: CANDIS GUZMÁN MDReferrer: HEAVENLY PEREZD [id number] 01/27/2021 12:00:00 AM EDT - 02/01/2021 01:30:00 PM [facility] Patient discharged. Outpatient Attender: ROB CASEY MD 01/21/2021 12:00:00 AM [facility] Unknown [address] [facility] [address] 01/07/2021 12:00:00 AM EDT eCW1 ([facility]) Outpatient Attender: ROB CASEY MD 01/03/2021 12:00:00 AM [facility] Unknown [address] [facility] [address] 01/01/2021 12:00:00 AM EDT eCW1 ([facility]) [place] [address] [facility] [address] 12/28/2020 12:00:00 AM EDT eCW1 ([facility]) [place] [address] [facility] [address] 12/28/2020 12:00:00 AM EDT eCW1 ([facility]) [place] [address] [facility] [address] 12/26/2020 12:00:00 AM EDT eCW1 ([facility]) [place] [address] [facility] [address] 12/26/2020 12:00:00 AM EDT eCW1 ([facility]) Outpatient [address] [facility] [address] 12/14/2020 12:00:00 AM EDT eCW1 ([facility] [place] [address] [facility] [address] 12/10/2020 12:00:00 AM EDT eCW1 ([facility]) [place] [address] [facility] [address] 11/28/2020 12:00:00 AM EDT eCW1 ([facility]) Outpatient Attender: ROB CASEY MD [id number] 11/22/2020 12:00: 00 AM EDT Palmar fascial fibromatosis (dupuytren) [facility] Palmar fascial fibromatosis (dupuytren) Outpatient Attender: ROB CASEY MD 11/16/2020 12:00:00 AM [facility] Outpatient Attender: ROB CASEY MD 11/08/2020 12:00:00 AM [facility] Outpatient Attender: ROB CASEY MD 10/22/2020 12:00:00 AM [facility] Unknown [address] [facility] [address] 10/19/2020 12:00:00 AM EDT eCW1 ([facility]) [place] [address] [facility] [address] 10/19/2020 12:00:00 AM EDT eCW1 ([facility]) Outpatient Attender: ROB CASEY MD 10/15/2020 12:00:00 AM [facility] Outpatient Attender: ROB CASEY MD [id number] 09/28/2020 12:00:00 AM [facility] Unknown [address] [address] 09/28/2020 12:00:00 AM EDT eCW1 ([facility]) Outpatient Attender: ROB CASEY MD [id number] 09/24/2020 12:00:00 AM [facility] Outpatient Referrer: ROB CASEY MD 09/19/2020 09:59: 00 AM EDT Palmar fascial fibromatosis (dupuytren) [facility] Palmar fascial fibromatosis (dupuytren) Outpatient Attender: PARKER Paredes: ROB CASEY MD [id number] 09/15/2020 12:00:00 AM EDT - 09/16/2020 12:00:00 AM [facility] Unknown [address] [facility] [address] 09/14/2020 12:00:00 AM EDT eCW1 ([facility]) Outpatient [address] [address] 09/11/2020 12:00:00 AM EDT eCW1 ([facility]) [place] [address] [facility] [address] 08/29/2020 12:00:00 AM EDT eCW1 ([facility]) Outpatient [address] [facility] [address] 08/21/2020 12:00:00 AM EST eCW1 ([facility]) Unknown [address] [address] 07/25/2020 12:00:00 AM EST eCW1 ([facility]) Outpatient Attender: ROB CASEY MD [id number] 07/12/2020 12:00: 00 AM EST Palmar fascial fibromatosis (dupuytren) [facility] Palmar fascial fibromatosis (dupuytren) [place] [address] [address] 07/02/2020 12:00:00 AM EST eCW1 ([facility]) [place] [address] [facility] [place] [address] 07/02/2020 12:00:00 AM EST eCW1 ([facility]) [place] [address] [address] 06/19/2020 12:00:00 AM EST eCW1 ([facility]) [place] [address] [address] 06/13/2020 12:00:00 AM EST eCW1 ([facility]) [place] [address] [address] 06/12/2020 12:00:00 AM EST eCW1 ([facility]) Unknown [address] [address] 06/01/2020 12:00:00 AM EST eCW1 ([facility]) Outpatient Attender: ROB CASEY MD 06/01/2020 12:00:00 AM EST [facility] Unknown [address] [facility] [address] 05/28/2020 12:00:00 AM EST eCW1 ([facility]) Unknown [address] [address] 05/28/2020 12:00:00 AM EST eCW1 ([facility]) [place] [address] [address] 05/25/2020 12:00:00 AM EST eCW1 ([facility]) Outpatient Attender: JOSÉ LUIS MARTINO [id number] : Ron Massey MD [id number] 05/23/2020 12:00:00 AM EST Palmar fascial fibromatosis (dupu ytren) [facility] Palmar fascial fibromatosis (dupuytren) [place] [address] [address] 05/23/2020 12:00:00 AM EST eCW1 ([facility]) TeleMedicine Phone E/M by Phys 21-30 Min [address] [place] [address] 05/22/2020 12:00:00 AM EST eCW1 ([facility]) Unknown [address] [address] 05/14/2020 12:00:00 AM EST eCW1 ([facility]) Outpatient Attender: JOSÉ LUIS MARTINO [id number]: Ron Massey MD 05/09/2020 12:00:00 AM [facility] Outpatient Attender: JOSÉ LUIS MARTINO [id number] 05/08/2020 12: 00:00 AM [facility] Outpatient Attender: ROB CASEY MDReferrer: Ron Massey MD 04/13/2020 12:00:00 AM [facility] Unknown [address] [address] 03/27/2020 12:00:00 AM EDT eCW1 ([facility]) Outpatient Attender: RAFAELA Meeks/Zuleima/Vinay/Adelia majano 03/19/2020 02:45:00 PM [facility], [facility] Outpatient Attender: ROB CASEY MDReferrer: Ron Massey MD 03/05/2020 12:00:00 AM [facility] Outpatient Attender: ROB CASEY MD 03/01/2020 12:00:00 AM [facility] Immunizations Vaccine Date Status Description Data Source(s) COVID-19 VACC,MRNA(MODERNA)/PF 01/08/2021 12:00:00 AM EDT completed [facility] COVID-19 VACC,MRNA(MODERNA)/PF 01/08/2021 12:00:00 AM EDT completed [facility] Moderna #2 dose COVID-19(given elsewhere) SARSCOV2 VAC 100MCG/0.5ML IM 09/25/2020 10:11:00 AM EDT completed eCW1 ([facility]) Moderna #2 dose COVID-19(given elsewhere) SARSCOV2 VAC 100MCG/0.5ML IM 09/25/2020 10:11:00 AM EDT completed eCW1 ([facility]) COVID-19 VACCINE Moderna 09/25/2020 12:00:00 AM EDT completed [facility] Vaccine Series Complete: YESThis Data wa s Submitted to [facility] Via [employer]. Moderna #1 dose COVID-19(given elsewhere) SARSCOV2 VAC 100MCG/0.5ML IM 08/30/2020 10:09:00 AM EDT completed eCW1 ([facility]) Moderna #1 dose COVID-19(given elsewhere) SARSCOV2 VAC 100MCG/0.5ML IM 08/30/2020 10:09:00 AM EDT completed eCW1 ([facility]) COVID-19 VACCINE Moderna 08/30/2020 12:00:00 AM EDT completed [facility] Vaccine Series Complete: NOThis Data was Submitted to [facility] Via [employer]. Medications Medication Brand Name Start Date Product [...] TABLET BY MOUTH BEFORE MEALS SOLD: 02/11/2021 [facility] 10 mg 02/11/2021 12:00:00 AM EDT tablet 60 TAKE TWO TABLETS BY MOUTH AT BEDTIME TAKE TWO TABLETS BY MOUTH AT BEDTIME SOLD: 02/12/2021 [facility] Insulin Glargine 100 UNT/ML Injectable S [...] glucose more than 400 mg/dL: notify provider
[facility] Medication administered onsite ondansetron (ZOFRAN) [...] able to tolerate PO.
[Order 2 End] [facility] Medication administered onsite Acetaminophen 325 [...] mg from all sources in 24 hours.
[facility] Medication administered onsite Acetaminophen 325 [...] mg from all sources in 24 hours.
[facility] Medication administered onsite Insulin Glargine 100 UNT/ML Injectable S olution Insulin Glargine 100 UNIT/ML Subcutaneous Solution (LANTUS) Insulin Glargine 100 UNIT/ML Subcutaneou s Solution (LANTUS) 02/01/2021 12:00:00 AM EDT 20 U Subcutaneous active Inject 20 Units into the skin Two times daily as needed [facility] 100 mg 02/01/2021 12:00:00 AM [...] mg from all sources in 24 hours.
[facility] Medication administered onsite Dextromethorphan Hydrobromide 2 MG/ML / Guaifenesin 20 MG/ML Oral Suspension dextromethorphan-guaiFENesin (Robitussin DM) syrup 5 mL dextromethorphan- guaiFENesin (Robitussin DM) syrup 5 mL 01/31/2021 11:04:51 PM EDT 5 m L Oral active 5 mL, Oral, Four Times Daily-PRN, Cough, Starting on Thu01/31/21 at 2304, For 30 days [facility] Medication administered onsite Trazodone Hydrochloride 50 MG Oral Tablet trazodone (D ESYREL) tablet 25 mg trazodone (DESYREL) tablet 25 mg 01/31/2021 08:45:00 PM EDT 25 mg Oral completed 25 mg, Oral, Once, On Thu 1 at 2045, For 1 dose [facility] Medication administered onsite quetiapine 25 MG Oral Tablet QUEtiapine (SEROquel) tab let 25 mg QUEtiapine (SEROquel) tablet 25 mg 01/31/2021 04:15:00 PM EDT 25 mg Oral completed 25 mg, Oral, Once, On Thu01/31/21 at 1615, For 1 dose [facility] Medication administered onsite Magnesium Oxide 400 MG Oral Tablet Magnesium Oxide (MA G-OX) tablet 400 mg Magnesium Oxide (MAG-OX) tablet 400 mg 01/31/2021 10:45:00 AM EDT 4 00 mg Oral active 400 mg, Oral, D aily Standard, First dose on Thu01/31/21 at 1045, For 30 days [facility] Medication administered onsite Insulin Glargine [...] glucose more than 400 mg/dL: notify provider
[facility] Medication administered onsite Sodium Chloride 1000 MG Oral Tablet Sodium Chloride 1 GM Oral Tablet Sodium Chloride 1 GM Oral Tablet 01/31/2021 12:00:00 AM EDT 2 g Oral active Take 2 tablets by mouth Three times daily with meals [facility] lacosamide 100 MG Oral Tablet Lacosamide 100 MG Oral T ablet (VIMPAT) Lacosamide 100 MG Oral Tablet (VIMPAT) 01/31/2021 12:00:00 AM EDT 100 mg Oral active Take 1 tablet by mouth Two Times Daily for 3 days, Max Daily Dose: 200 mg [facility] lacosamide 100 MG Oral Tablet Lacosamide (VIMPAT) tabl et 100 mg Lacosamide (VIMPAT) tablet 100 mg 01/30/2021 09:00:00 PM EDT 100 mg Oral active 100 mg, Oral, 2 Times Daily, First dose on Thu01/30/21 at 2100, For 30 days [facility] Medication administered onsite quetiapine 25 MG Oral Tablet QUEtiapine (SEROquel) tab let 50 mg QUEtiapine (SEROquel) tablet 50 mg 01/30/2021 05:00:00 PM EDT 50 mg Oral active 50 mg, Oral, Every 8 hours Standard (3 times per day), First dose (after last modification) on Thu01/30/21 at 1700, For 30 days [facility] Medication administered onsite Sodium Chloride 1000 MG Oral Tablet sodium chloride ta blet 2 g sodium chloride tablet 2 g 01/30/2021 08:00:00 AM EDT 2 g Oral active 2 g, Oral, Three Times Daily-With Meals, First dose (after last modification) on Thu01/30/21 at 0800, For 88 doses [facility] Medication administered onsite Trazodone Hydrochloride 50 MG Oral Tablet trazodone (D ESYREL) tablet 25 mg trazodone (DESYREL) tablet 25 mg 01/30/2021 01:45:00 AM EDT 25 mg Oral completed 25 mg, Oral, Once, On Thu 1 at 0145, For 1 dose [facility] Medication administered onsite Melatonin 5 MG Oral Tablet melatonin tablet 5 mg melatonin t ablet 5 mg 01/29/2021 09:28:17 PM EDT 5 mg Oral active 5 mg, Oral, Nightly PRN, Sleep, Starting on Thu01/29/21 at 2128, For 30 days [facility] Medication administered onsite Docusate Sodium 10 MG/ML Oral Suspension docusate (COLACE) 50 MG/5ML liquid 100 mg docusate (COLACE) 50 MG/5ML liquid 100 mg 01/29/2021 09:00:00 PM EDT 100 mg Oral active 100 mg, Or al, 2 Times Daily, First dose on Thu01/29/21 at 2100, For 30 days [facility] Medication administered onsite potassium chloride (KLOR-CON) packet 40 mEq [id number] 01/29/2021 09:00:00 PM EDT 40 meq Oral completed 40 mEq , Oral, 2 Times Daily, First dose on Thu01/29/21 at 2100, For 3 days
Mix in 4 ounces of water or juice
[facility] Medication administered onsite insulin lispro (HumaLOG) injection HIGH DOSE EATING IN SULIN patients 1-22 Units [id number] 01/29/2021 06:00:00 PM EDT U Subcutaneous active 1-22 Units, Subcutaneous, Three Times Daily-With Meals, First dose on Thu01/29/21 at 1800, For 30 days
Nursing MUST open the 'SQ Insulin Dosing Charts' Sidebar Report, or, the Patient Summary or Summary Report within the ED.
[facility] Medication administered onsite Cyclobenzaprine hydrochloride 10 MG Oral Tablet cyclobenzaprine (FLEXERIL) tablet 10 mg cyclobenzaprine (FLEXERIL) tablet 10 mg 01/29/2021 05:10:54 PM EDT 10 mg Oral active 10 mg, Oral, Thr ee Times Daily-PRN, Muscle spasms, Starting on Thu01/29/21 at 1710, For 30 days [facility] Medication administered onsite gabapentin 600 MG Oral Tablet gabapentin (NEURONTIN) t ablet 600 mg gabapentin (NEURONTIN) tablet 600 mg 01/29/2021 05:00:00 PM EDT 600 mg Oral active Alcohol Withdrawal Syndrome 600 mg, Oral, Three Times Daily Standard, Indications: Alcohol Withdrawal Syndrome, First dose on Thu01/29/21 at 1700, For 30 days [facility] Alcohol Withdrawal Syndrome Medication administered onsite potassium chloride (KLOR-CON) packet 40 mEq [id number] 01/29/2021 03:00:00 PM EDT 40 meq Oral completed 40 mEq , Oral, Once, On Thu01/29/21 at 1500, For 1 dose
Mix in 4 ounces of water or juice
[facility] Medication administered onsite Oxycodone Hydrochloride [...] only) require Pain Service consultation and approval.
[facility] Medication administered onsite quetiapine 25 MG Oral Tablet QUEtiapine (SEROquel) tab let 25 mg QUEtiapine (SEROquel) tablet 25 mg 01/29/2021 01:45:00 PM EDT 25 mg Oral completed 25 mg, Oral, Once, On Thu01/29/21 at 1345, For 1 dose [facility] Medication administered onsite quetiapine 25 MG Oral Tablet QUEtiapine (SEROquel) tab let 50 mg QUEtiapine (SEROquel) tablet 50 mg 01/29/2021 01:33:13 PM EDT 50 mg Oral aborted 50 mg, Oral, Every 8 hours PRN, agitation, Starting on Thu01/29/21 at 1333, For 715 hours [facility] Medication administered onsite Sodium Chloride 1000 MG Oral Tablet sodium chloride ta blet 1 g sodium chloride tablet 1 g 01/29/2021 01:00:00 PM EDT 1 g Oral aborted 1 g, Oral, Three Times Daily-With Meals, First dose on Thu01/29/21 at 1300, For 30 days [facility] Medication administered onsite 0.4 ML Enoxaparin sodium 100 MG/ML Prefi lled Syringe enoxaparin sodium (LOVENOX) injection 40 mg enoxaparin sodium (LOVENOX) injection 40 mg 01/29/2021 12:00:00 PM EDT 40 mg Subcutaneous active 40 mg, Subcutaneous, Daily Standard, First dose on Thu01/29/21 at 1200, For 30 days [facility] Medication administered onsite Hydralazine Hydrochloride 20 MG/ML Injec table Solution hydrALAZINE (APRESOLINE) injection 10 mg hydrALAZINE (APRESOLINE) injection 10 mg 01/29/2021 11 :51:47 AM EDT 10 mg Intravenous active 10 m g, Intravenous, Every 6 hours PRN, Hypertension, SBP>160, Starting on Thu01/29/21 at 1151, For 671 hours
Dilute in 25-50 mL normal saline. Administer over 30 minutes.
[facility] Medication administered onsite labetalol (TRANDATE) injection 10 mg [id number] 01/29/2021 11:51: 36 AM EDT 10 mg Intravenous active 10 mg, I ntravenous, Every 6 hours PRN, High Blood Pressure, SBP>160, Starting on Thu01/29/21 at 1151, For 623 hours
Dilute in 25-50 mL normal saline. Administer over 30 minutes.
[facility] Medication administered onsite insulin lispro (HUMALOG) injection HIGH DOSE TUBE CONT INSULIN patients 1-16 Units [id number] 01/29/2021 09:00:00 AM EDT U Subcutaneous aborted [...] on Thu01/29/21 at 0846, For 30 days [facility] Medication administered onsite thiamine (B-1) 500 mg in sodium chloride 0.9 % 50 mL IVPB 01/28/2021 12:30:00 PM EDT 500 mg Intravenous completed 50 0 mg, Intravenous, Administer over 30 Minutes, Every 8 hours, First dose (after last modification) on Thu01/28/21 at 1230, For 2 days [facility] Medication administered onsite lidocaine (LIDODERM) 5 % patch 1 patch [id number] 09:00:00 AM EDT 1 {patch} Transdermal active 1 patch, T ransdermal, Daily Standard, First dose on Thu01/28/21 at 0900, For 30 days
Apply to lower back 12 hours on - 12 hours off
[facility] Medication administered onsite pantoprazole 4 MG/ML Injectable Solution pantoprazole (PROTONIX) injection 40 mg pantoprazole (PROTONIX) injection 40 mg 01/28/2021 09:00:00 AM EDT 40 mg Intravenous aborted 40 mg, Intrav enous, Daily Standard, First dose on Thu01/28/21 at 0900, For 30 days [facility] Medication administered onsite multivitamin tablet 1 tablet [id number] 01/28/2021 09:00:00 AM EDT 1 {tbl} Oral active 1 tablet, Oral , Daily Standard, First dose on Thu01/28/21 at 0900, For 30 days [facility] Medication administered onsite Folic Acid 1 MG Oral Tablet folic acid (FOLVITE) table t 1 mg folic acid (FOLVITE) tablet 1 mg 01/28/2021 09:00:00 AM EDT 1 mg Oral active 1 mg, Oral, Daily Standard, First dose on Thu01/28/21 at 0900, For 30 days [facility] Medication administered onsite Acetaminophen 32 [...] mg from all sources in 24 hours.
[facility] Medication administered onsite Piperacillin 3000 [...] piperacillin- tazobactam is compatible with Lactated Ringers.
[facility] Medication administered onsite Acetaminophen 10 MG/ML Injectable Soluti on acetaminophen (OFIRMEV) infusion 1,000 mg acetaminophen (OFIRMEV) infusion 1,000 mg 01/28/2021 04:15:00 AM EDT 1000 mg Intravenous completed 1,000 mg , Intravenous, Administer over 15 Minutes, Once, On Thu01/28/21 at 0415, For 1 dose
Maximum daily dose of acetaminophen from all sources 3,000 mg daily.
[facility] Medication administered onsite Levetiracetam 5 MG/ML Injectable Solutio n levETIRAcetam (KEPPRA) 500 mg in sodium chloride 100 mL (5 mg/mL) infusion (premix) levETIRAcetam (KEPPRA) 500 mg in sodium chloride 100 mL (5 mg/mL) infusion (premix) 01/27/2021 10:30:00 PM EDT 500 mg Intravenous aborted 500 mg, Intravenous, at 400 mL/hr, Every 12 hours, First dose on Thu01/27/21 at 2230, For 30 days [facility] Medication administered onsite Magnesium Hydroxide [...] creatinine > 2 notify provider before administering.
[facility] Medication administered onsite dexmedetomidine (PRECEDEX) in NaCl 0.9 % infusion 4 mcg/mL 1 [id number] 01/27/2021 06:30:00 PM EDT ug/kg/h Intravenous aborted 0.1-1.5 mcg/kg/hr 76.2 kg (1.905-28.575 mL/hr, rounded to 1.9-28.6 mL/hr), Intravenous, at 1.9- 28.6 mL/hr, Continuous, Starting on 01/27/21 at 1830, For 30 days
Starting dose = 0.2 mcg/kg/hrTitrate to maintain RASS of 0
[facility] Medication administered onsite insulin lispro (HUMALOG) injection HIGH DOSE NPO INSUL IN patients 1-12 Units [id number] 01/27/2021 05:00:00 PM EDT U Subcutaneous aborted 1-12 Units, Subcutaneous, Every 4 hours, First dose on 01/27/21 at 1700, For 30 days
Nursing MUST open the 'SQ Insulin Dosing Charts' Sidebar Report, or, the Patient Summary or Summary Report within the ED.
[facility] Medication administered onsite ondansetron (ZOFRAN) injection 4 mg [id number] 01/27/2021 04:27:3 6 PM EDT 4 mg Intravenous aborted 4 mg, In travenous, Every 8 hours PRN, Nausea, Vomiting, Starting on 01/27/21 at 1627, For 30 days [facility] Medication administered onsite Sodium Chloride 0.513 MEQ/ML Injectable Solution sodium chloride 3 % hypertonic solution sodium chloride 3 % hypertonic solution 01/27/2021 03:00:00 PM EDT 30 mL/h Intravenous aborted at 30 mL/hr, Intravenous, Continuous, Starting on 01/27/21 at 1500, For 30 days [facility] Medication administered onsite 2 ML Midazolam 1 MG/ML Injection midazolam (PF) (VERSE D) injection 2 mg midazolam (PF) (VERSED) injection 2 mg 01/27/2021 02:30:00 PM EDT 2 mg Intravenous completed 2 mg, Intrave nous, Once, On 01/27/21 at 1430, For 1 dose [facility] Medication administered onsite Acetaminophen 325 [...] mg from all sources in 24 hours.
[facility] Medication administered onsite sodium chloride 0.9 % bolus 1,000 mL [id number] 01/27/2021 12:00: 00 PM EDT 1000 mL Intravenous completed 1,000 mL , Intravenous, Once, On 01/27/21 at 1200, For 1 dose [facility] Medication administered onsite insulin lispro (HUMALOG) injection LOW DOSE NPO INSULI N patients 1-5 Units [id number] 01/27/2021 12:00:00 PM EDT U Subcutaneous aborted 1-5 Units, Subcutaneous, Every 4 hours, First dose on 01/27/21 at 1200, For 30 days
Nursing MUST open the 'SQ Insulin Dosing Charts' Sidebar Report, or, the Patient Summary or Summary Report within the ED.
[facility] Medication administered onsite Nicardipine hydrochloride [...] mg/hr Titrate down if SBP < 120
[facility] Medication administered onsite NaCl infusion 0.9 % [id number] 01/27/2021 11:30:00 AM EDT Intravenous aborted at 75 mL/hr, Intrave nous, Continuous, Starting on 01/27/21 at 1130, For 2 days [facility] Medication administered onsite Levetiracetam 500 MG Oral Tablet levETIRAcetam (KEPPRA ) tablet 500 mg levETIRAcetam (KEPPRA) tablet 500 mg 01/27/2021 11:30:00 AM EDT 500 m g Oral aborted 500 mg, Oral, 2 Times Daily, First dose on 01/27/21 at 1130, For 28 days [facility] Medication administered onsite Glucose 0.417 MG/MG Oral Gel glucose (GLUTOSE) 40 % or al gel 15 g glucose (GLUTOSE) 40 % oral gel 15 g 01/27/2021 11:21:27 AM EDT 15 g Oral active 15 g, Oral, PRN, Low blood s ugar, for gluose 55-69 mg/dl and able to take PO, Starting on Thu01/27/21 at 1121, For 30 days [facility] Medication administered onsite dextrose 50 % IV solution 25 mL [id number] 01/27/2021 11:21:26 AM E DT 25 mL Intravenous active 25 mL, Intrav enous, PRN, Other, blood glucose <55, Starting on 01/27/21 at 1121, For 30 days
Not for midline administration.
[facility] Medication administered onsite Glucagon 1 MG Injection glucagon (human recombinant) ( GLUCAGEN) injection 1 mg glucagon (human recombinant) (GLUCAGEN) injection 1 mg 01/27/2021 11:21:26 AM EDT 1 mg Intramuscular active 1 mg, Intramuscular, PRN, for glucose <55 without IV access, Starting on 01/27/21 at 1121, For 30 days [facility] Medication administered onsite 50 ML [...] 16 mEq (2 g) q1h x 3
[facility] Medication administered onsite Albuterol 0.83 MG/ML Inhalant Solution a lbuterol (PROVENTIL) nebulizer solution 2.5 mg albuterol (PROVENTIL) nebulizer solution 2.5 mg 2020 11:19:58 AM EDT 2.5 mg Nebulization active 2.5 mg, Nebulization, Every 2 hours PRN, Wheezing, Starting on 01/27/21 at 1119, For 6 days 21 hours [facility] Medication administered onsite sennosides, NURSING HOME 8.6 MG Oral Tablet senna tablet 2 tablet sen na tablet 2 tablet 01/27/2021 11:19:26 AM EDT 2 {tbl} Oral active 2 tablet, Oral, Nightly PRN, Constipation, Starting on 01/27/21 at 1119, For 30 days [facility] Medication administered onsite sennosides, NURSING HOME 35.2 MG/ML Oral Solution senna (SENOKO T) syrup 10 mL senna (SENOKOT) syrup 10 mL 01/27/2021 11:19:26 AM EDT 10 mL Oral active 10 mL, Oral, Nightly PRN, Constipation, Starting on 01/27/21 at 1119, For 30 days [facility] Medication administered onsite Bisacodyl 10 MG Rectal Suppository bisacodyl (DULCOLAX ) suppository 10 mg bisacodyl (DULCOLAX) suppository 10 mg 01/27/2021 11:19:26 AM EDT 10 mg Rectal active 10 mg, Rectal, Every 72 hours PRN, Constipation, Starting on 01/27/21 at 1119, For 30 days
Hold if patient has had BM within the past 2 days.
[facility] Medication administered onsite Acetaminophen 325 [...] mg from all sources in 24 hours.
[facility] Medication administered onsite ondansetron (ZOFRAN) 4 MG/2ML injection [id number] 01/28/20 10:35:05 AM EDT completed Starting on Marte n 01/27/21 at 1035, For 1 dose
Yadira Stein: cabinet override
[facility] Medication administered onsite ondansetron (ZOFRAN) injection 4 mg [id number] 01/27/2021 10:30:0 0 AM EDT 4 mg Given by IV completed 4 mg, Gi guero by IV, Once, On 01/27/21 at 1030, For 1 dose [facility] Medication administered onsite Hydralazine Hydrochloride 20 MG/ML Injec table Solution hydrALAZINE (APRESOLINE) injection 5 mg hydrALAZINE (APRESOLINE) injection 5 mg 01/27/2021 10: 30:00 AM EDT 5 mg Intravenous completed 5 mg, Intravenous, Once, On 01/27/21 at 1030, For 1 dose
Dilute in 25-50 mL normal saline. Administer over 30 minutes.
[facility] Medication administered onsite lactated ringers bolus 1,000 mL [id number] 01/27/2021 10:15:00 AM EDT 1000 mL Intravenous completed 1,000 mL , Intravenous, Once, On 01/27/21 at 1015, For 1 dose [facility] Medication administered onsite 2 ML Metoclopramide 5 MG/ML Prefilled Sy ringe metoclopramide (REGLAN) injection 10 mg metoclopramide (REGLAN) injection 10 mg 01/27/2021 09:15:00 AM E DT 10 mg Intravenous completed 10 mg, I ntravenous, Once, On 01/27/21 at 0915, For 1 dose [facility] Medication administered onsite Hydralazine Hydrochloride 20 MG/ML Injec table Solution hydrALAZINE (APRESOLINE) injection 5 mg hydrALAZINE (APRESOLINE) injection 5 mg 01/27/2021 09: 15:00 AM EDT 5 mg Intravenous completed 5 mg, Intravenous, Once, On 01/27/21 at 0915, For 1 dose
Dilute in 25-50 mL normal saline. Administer over 30 minutes.
[facility] Medication administered onsite Acetaminophen 10 MG/ML Injectable Soluti on acetaminophen (OFIRMEV) infusion 1,000 mg acetaminophen (OFIRMEV) infusion 1,000 mg 01/27/2021 09:15:00 AM EDT 1000 mg Intravenous completed 1,000 mg , Intravenous, Administer over 15 Minutes, Once, On 01/27/21 at 0915, For 1 dose
Maximum daily dose of acetaminophen from all sources 3,000 mg daily.
[facility] Medication administered onsite desmopressin (DDAVP) injection 30 mcg [id number] 01/27/2021 07:45 :00 AM EDT 30 ug Intravenous completed 30 mcg, Intravenous, Once, On 01/27/21 at 0745, For 1 dose [facility] Medication administered onsite Acetaminophen 325 [...] AM EDT active Psyllium 51.7 % eCW1 ([facility]) gabapentin 300 MG Oral Capsule Gabapentin 300 MG Gabapentin 300 MG 12/26/2020 12:00:00 AM EDT 2.0 {capsule} active G abapentin 300 MG eCW1 ([facility]) Psyllium 51.7 % UNK 12/26/2020 12:00:00 AM EDT active Psyllium 51.7 % eCW1 ([facility]) gabapentin 300 MG Oral Capsule Gabapentin 300 MG Gabapentin 300 MG 12/26/2020 12:00:00 AM EDT 2.0 {capsule} active G abapentin 300 MG eCW1 ([facility]) Psyllium 51.7 % UNK 12/26/2020 12:00:00 AM EDT active Psyllium 51.7 % eCW1 ([facility]) Psyllium 51.7 % UNK 12/26/2020 12:00:00 AM EDT active Psyllium 51.7 % eCW1 ([facility]) Psyllium 51.7 % UNK 12/26/2020 12:00:00 AM EDT active Psyllium 51.7 % eCW1 ([facility]) gabapentin 300 MG Oral Capsule Gabapentin 300 MG Gabapentin 300 MG 12/26/2020 12:00:00 AM EDT 2.0 {capsule} active G abapentin 300 MG eCW1 ([facility]) Psyllium 51.7 % UNK 12/26/2020 12:00:00 AM EDT active Psyllium 51.7 % eCW1 ([facility]) Psyllium 51.7 % UNK 12/26/2020 12:00:00 AM EDT active Psyllium 51.7 % eCW1 ([facility]) gabapentin 300 MG Oral Capsule Gabapentin 300 MG Gabapentin 300 MG 12/26/2020 12:00:00 AM EDT 2.0 {capsule} active G abapentin 300 MG eCW1 ([facility]) gabapentin 300 MG Oral Capsule Gabapentin 300 MG Gabapentin 300 MG 12/26/2020 12:00:00 AM EDT 2.0 {capsule} active G abapentin 300 MG eCW1 ([facility]) gabapentin 300 MG Oral Capsule Gabapentin 300 MG Gabapentin 300 MG 12/26/2020 12:00:00 AM EDT 2.0 {capsule} active G abapentin 300 MG eCW1 ([facility]) gabapentin 300 MG Oral Capsule Gabapentin 300 MG Gabapentin 300 MG 12/26/2020 12:00:00 AM EDT 2.0 {capsule} active G abapentin 300 MG eCW1 ([facility]) Acetaminophen 325 MG / Hydrocodone Bitartrate 10 [...] 12:00:00 AM EDT active Compazine 25mg eCW1 ([facility]) Compazine 25mg UNK 10/19/2020 12:00:00 AM EDT active Compazine 25mg eCW1 ([facility]) Compazine 25mg UNK 10/19/2020 12:00:00 AM EDT active Compazine 25mg eCW1 ([facility]) Compazine 25mg UNK 10/19/2020 12:00:00 AM EDT active Compazine 25mg eCW1 ([facility]) Compazine 25mg UNK 10/19/2020 12:00:00 AM EDT active Compazine 25mg eCW1 ([facility]) Compazine 25mg UNK 10/19/2020 12:00:00 AM EDT active Compazine 25mg eCW1 ([facility]) Compazine 25mg UNK 10/19/2020 12:00:00 AM EDT active Compazine 25mg eCW1 ([facility]) Compazine 25mg UNK 10/19/2020 12:00:00 AM EDT active Compazine 25mg eCW1 ([facility]) 10 mg 10/19/2020 12:00:00 AM EDT tablet 90 TAKE ONE TABLET BY MOUTH THREE TIMES A DAY NEEDED TAKE ONE TABLET BY MOUTH THREE TIMES A DAY NEEDED S OLD: 10/19/2020 [facility] Compazine 25mg UNK 10/19/2020 12:00:00 AM EDT active Compazine 25mg eCW1 ([facility]) Compazine 25mg UNK 10/19/2020 12:00:00 AM EDT active Compazine 25mg eCW1 ([facility]) Compazine 25mg UNK 10/19/2020 12:00:00 AM EDT active Compazine 25mg eCW1 ([facility]) Compazine 25mg UNK 10/19/2020 12:00:00 AM EDT active Compazine 25mg eCW1 ([facility]) Compazine 25mg UNK 10/19/2020 12:00:00 AM EDT active Compazine 25mg eCW1 ([facility]) Compazine 25mg UNK 10/19/2020 12:00:00 AM EDT active Compazine 25mg eCW1 ([facility]) Compazine 25mg UNK 10/19/2020 12:00:00 AM EDT active Compazine 25mg eCW1 ([facility]) Compazine 25mg UNK 10/19/2020 12:00:00 AM EDT active Compazine 25mg eCW1 ([facility]) Compazine 25mg UNK 10/19/2020 12:00:00 AM EDT active Compazine 25mg eCW1 ([facility]) Compazine 25mg UNK 10/19/2020 12:00:00 AM EDT active Compazine 25mg eCW1 ([facility]) Compazine 25mg UNK 10/19/2020 12:00:00 AM EDT active Compazine 25mg eCW1 ([facility]) Compazine 25mg UNK 10/19/2020 12:00:00 AM EDT active Compazine 25mg eCW1 ([facility]) Compazine 25mg UNK 10/19/2020 12:00:00 AM EDT active Compazine 25mg eCW1 ([facility]) Compazine 25mg UNK 10/19/2020 12:00:00 AM EDT active Compazine 25mg eCW1 ([facility]) Compazine 25mg UNK 10/19/2020 12:00:00 AM EDT active Compazine 25mg eCW1 ([facility]) Compazine 25mg UNK 10/19/2020 12:00:00 AM EDT active Compazine 25mg eCW1 ([facility]) Acetaminophen 325 MG / Hydrocodone Bitartrate 10 [...] {capsule} suspended Tamsulosin HCl 0.4 MG eCW1 ([facility]) Tamsulosin hydrochloride 0.4 MG Oral Capsule Tamsulosi n HCl 0.4 MG Tamsulosin HCl 0.4 MG 09/28/2020 12:00:00 AM EDT 1.0 {capsule} suspended Tamsulosin HCl 0.4 MG eCW1 ([facility]) Tamsulosin hydrochloride 0.4 MG Oral Capsule Tamsulosi n HCl 0.4 MG Tamsulosin HCl 0.4 MG 09/28/2020 12:00:00 AM EDT 1.0 {capsule} suspended Tamsulosin HCl 0.4 MG eCW1 ([facility]) Tamsulosin hydrochloride 0.4 MG Oral Capsule Tamsulosi n HCl 0.4 MG Tamsulosin HCl 0.4 MG 09/28/2020 12:00:00 AM EDT 1.0 {capsule} suspended Tamsulosin HCl 0.4 MG eCW1 ([facility]) Tamsulosin hydrochloride 0.4 MG Oral Capsule Tamsulosi n HCl 0.4 MG Tamsulosin HCl 0.4 MG 09/28/2020 12:00:00 AM EDT 1.0 {capsule} active Tamsulosin HCl 0.4 MG eCW1 ([facility]) Tamsulosin hydrochloride 0.4 MG Oral Capsule Tamsulosi n HCl 0.4 MG Tamsulosin HCl 0.4 MG 09/28/2020 12:00:00 AM EDT 1.0 {capsule} suspended Tamsulosin HCl 0.4 MG eCW1 ([facility]) Tamsulosin hydrochloride 0.4 MG Oral Capsule Tamsulosi n HCl 0.4 MG Tamsulosin HCl 0.4 MG 09/28/2020 12:00:00 AM EDT 1.0 {capsule} suspended Tamsulosin HCl 0.4 MG eCW1 ([facility]) Tamsulosin hydrochloride 0.4 MG Oral Capsule Tamsulosi n HCl 0.4 MG Tamsulosin HCl 0.4 MG 09/28/2020 12:00:00 AM EDT 1.0 {capsule} suspended Tamsulosin HCl 0.4 MG eCW1 ([facility]) Tamsulosin hydrochloride 0.4 MG Oral Capsule Tamsulosi n HCl 0.4 MG Tamsulosin HCl 0.4 MG 09/28/2020 12:00:00 AM EDT 1.0 {capsule} active Tamsulosin HCl 0.4 MG eCW1 ([facility]) Tamsulosin hydrochloride 0.4 MG Oral Capsule Tamsulosi n HCl 0.4 MG Tamsulosin HCl 0.4 MG 09/28/2020 12:00:00 AM EDT 1.0 {capsule} suspended Tamsulosin HCl 0.4 MG eCW1 ([facility]) Tamsulosin hydrochloride 0.4 MG Oral Capsule Tamsulosi n HCl 0.4 MG Tamsulosin HCl 0.4 MG 09/28/2020 12:00:00 AM EDT 1.0 {capsule} suspended Tamsulosin HCl 0.4 MG eCW1 ([facility]) Tamsulosin hydrochloride 0.4 MG Oral Capsule Tamsulosi n HCl 0.4 MG Tamsulosin HCl 0.4 MG 09/28/2020 12:00:00 AM EDT 1.0 {capsule} active Tamsulosin HCl 0.4 MG eCW1 ([facility]) Tamsulosin hydrochloride 0.4 MG Oral Capsule Tamsulosi n HCl 0.4 MG Tamsulosin HCl 0.4 MG 09/28/2020 12:00:00 AM EDT 1.0 {capsule} active Tamsulosin HCl 0.4 MG eCW1 ([facility]) Acetaminophen 325 MG / Hydrocodone Ale trate 5 MG Oral Tablet HYDROcodone- Acetaminophen 5-325 MG Oral Tablet (LORTAB) HYDROcodone-Acetaminophen 5-325 MG Oral Tablet (LORTAB) 09/19/2020 12:00:00 AM EDT 1 {tbl} Oral active Take 1 tablet by mouth every 6 (six) hours as needed for Pain for up to 3 days, Max Daily Dose: 4 tablets [facility] 10-325 mg 09/18/2020 12:00:00 AM [...] Cepacol So re Throat 10-2.1 MG eCW1 ([facility]) Cepacol Sore Throat 10-2.1 MG UNK 07/02/2020 12:00:[address] 1.0 {lozenge_as_needed} active Cepacol Sore Throat 10-2.1 MG eCW1 ([facility]) Cepacol Sore Throat 10-2.1 MG UNK 07/02/2020 12:00:[address] 1.0 {lozenge_as_needed} active Cepacol Sore Throat 10-2.1 MG eCW1 ([facility]) Cepacol Sore Throat 10-2.1 MG K 07/02/2020 12:00:[address] 1.0 {lozenge_as_needed} suspended Cepacol So re Throat 10-2.1 MG eCW1 ([facility]) Cepacol Sore Throat 10-2.1 MG UNK 07/02/2020 12:00:[address] 1.0 {lozenge_as_needed} active Cepacol Sore Throat 10-2.1 MG eCW1 ([facility]) Cepacol Sore Throat 10-2.1 MG UNK 07/02/2020 12:00:[address] 1.0 {lozenge_as_needed} suspended Cepacol So re Throat 10-2.1 MG eCW1 ([facility]) Cepacol Sore Throat 10-2.1 MG UNK 07/02/2020 12:00:[address] 1.0 {lozenge_as_needed} active Cepacol Sore Throat 10-2.1 MG eCW1 ([facility]) Cepacol Sore Throat 10-2.1 MG UNK 07/02/2020 12:00:[address] 1.0 {lozenge_as_needed} suspended Cepacol So re Throat 10-2.1 MG eCW1 ([facility]) Cepacol Sore Throat 10-2.1 MG UNK 07/02/2020 12:00:[address] 1.0 {lozenge_as_needed} active Cepacol Sore Throat 10-2.1 MG eCW1 ([facility]) Cepacol Sore Throat 10-2.1 MG UNK 07/02/2020 12:00:[address] 1.0 {lozenge_as_needed} active Cepacol Sore Throat 10-2.1 MG eCW1 ([facility]) Cepacol Sore Throat 10-2.1 MG UNK 07/02/2020 12:00:[address] 1.0 {lozenge_as_needed} active Cepacol Sore Throat 10-2.1 MG eCW1 ([facility]) Cepacol Sore Throat 10-2.1 MG UNK 07/02/2020 12:00:[address] 1.0 {lozenge_as_needed} suspended Cepacol So re Throat 10-2.1 MG eCW1 ([facility]) Cepacol Sore Throat 10-2.1 MG UNK 07/02/2020 12:00:[address] 1.0 {lozenge_as_needed} active Cepacol Sore Throat 10-2.1 MG eCW1 ([facility]) Cepacol Sore Throat 10-2.1 MG UNK 07/02/2020 12:00:[address] 1.0 {lozenge_as_needed} active Cepacol Sore Throat 10-2.1 MG eCW1 ([facility]) Cepacol Sore Throat 10-2.1 MG UNK 07/02/2020 12:00:[address] 1.0 {lozenge_as_needed} suspended Cepacol So re Throat 10-2.1 MG eCW1 ([facility]) Cepacol Sore Throat 10-2.1 MG UNK 07/02/2020 12:00:[address] 1.0 {lozenge_as_needed} suspended Cepacol So re Throat 10-2.1 MG eCW1 ([facility]) Cepacol Sore Throat 10-2.1 MG UNK 07/02/2020 12:00:[address] 1.0 {lozenge_as_needed} active Cepacol Sore Throat 10-2.1 MG eCW1 ([facility]) Cepacol Sore Throat 10-2.1 MG UNK 07/02/2020 12:00:[address] 1.0 {lozenge_as_needed} suspended Cepacol So re Throat 10-2.1 MG eCW1 ([facility]) Cepacol Sore Throat 10-2.1 MG UNK 07/02/2020 12:00:[address] 1.0 {lozenge_as_needed} suspended Cepacol So re Throat 10-2.1 MG eCW1 ([facility]) Cepacol Sore Throat 10-2.1 MG UNK 07/02/2020 12:00:[address] 1.0 {lozenge_as_needed} active Cepacol Sore Throat 10-2.1 MG eCW1 ([facility]) Prochlorperazine 10 MG Oral Tablet Proch lorperazine Maleate 10 MG Oral Tablet (COMPAZINE) Prochlorperazine Maleate 10 MG Oral Tablet (COMPAZINE) 06/28/2020 12:00:00 AM EST 10 mg Oral active Take 10 mg by mouth every 6 (six) hours as needed [facility] 10-325 mg 06/26/2020 12:00:00 AM [...] Lidocaine Pain Relief 4 % External Patch [id number] 05/28/2020 12:00:00 AM EST active USE DIRECTED D [facility] 4 % 05/28/2020 12:00:00 AM EST adhesive [...] CAPSULE BY MOUTH EVERY DAY SOLD: 05/28/2020 [facility] Diclofenac Sodium 0.01 MG/MG Topical Gel Diclofenac Sodium 1 % External Gel (VOLTAREN) Diclofenac Sodium 1 % External Gel (VOLTAREN) 05/26/20 12:00:00 AM EST active APPLY TO RIGHT AGUILAR ND THREE TIMES A DAY NEEDED [facility] 1 % 05/26/2020 12:00:00 AM EST gel 100 APPLY TO RIGHT HAND THREE TIMES A DAY NEEDED APPLY TO RIGHT HAND THREE TIMES A DAY NEEDED SOLD: 05/28/2020 [facility] Cyclobenzaprine hydrochloride 10 MG Oral Tablet CYCLOBENZAPR INE HCL 05/26/2020 12:00:00 AM EST tablet 120 TAKE ONE TABLET BY MOUTH EVERY 6 HOURS NEEDED FOR SPASMS AND PAIN TAKE ONE TABLET BY MOUTH EVERY 6 HOURS A S NEEDED FOR SPASMS AND PAIN SOLD: 05/28/2020 [facility] Compazine 25mg UNK 05/22/2020 12:00:00 AM EST active Compazine 25mg eCW1 ([facility]) HM Lidocaine Patch 4 % HM Lidocaine Patch 4 % 05/22/2020 12:00:[address] active HM Lidocaine Patch 4 % eC W1 ([facility]) Compazine 25mg UNK 05/22/2020 12:00:00 AM EST active Compazine 25mg eCW1 ([facility]) Compazine 25mg UNK 05/22/2020 12:00:00 AM EST active Compazine 25mg eCW1 ([facility]) Compazine 25mg UNK 05/22/2020 12:00:00 AM EST active Compazine 25mg eCW1 ([facility]) HM Lidocaine Patch 4 % HM Lidocaine Patch 4 % 05/22/2020 12:00:[address] active HM Lidocaine Patch 4 % eC W1 ([facility]) Compazine 25mg UNK 05/22/2020 12:00:00 AM EST active Compazine 25mg eCW1 ([facility]) Compazine 25mg UNK 05/22/2020 12:00:00 AM EST active Compazine 25mg eCW1 ([facility]) Compazine 25mg UNK 05/22/2020 12:00:00 AM EST active Compazine 25mg eCW1 ([facility]) HM Lidocaine Patch 4 % HM Lidocaine Patch 4 % 05/22/2020 12:00:[address] active HM Lidocaine Patch 4 % eC W1 ([facility]) Compazine 25mg UNK 05/22/2020 12:00:00 AM EST active Compazine 25mg eCW1 ([facility]) HM Lidocaine Patch 4 % HM Lidocaine Patch 4 % 05/22/2020 12:00:[address] active HM Lidocaine Patch 4 % eC W1 ([facility]) HM Lidocaine Patch 4 % HM Lidocaine Patch 4 % 05/22/2020 12:00:[address] active HM Lidocaine Patch 4 % eC W1 ([facility]) HM Lidocaine Patch 4 % HM Lidocaine Patch 4 % 05/22/2020 12:00:[address] active HM Lidocaine Patch 4 % eC W1 ([facility]) Compazine 25mg UNK 05/22/2020 12:00:00 AM EST active Compazine 25mg eCW1 ([facility]) Compazine 25mg UNK 05/22/2020 12:00:00 AM EST active Compazine 25mg eCW1 ([facility]) Compazine 25mg UNK 05/22/2020 12:00:00 AM EST active Compazine 25mg eCW1 ([facility]) HM Lidocaine Patch 4 % HM Lidocaine Patch 4 % 05/22/2020 12:00:[address] active HM Lidocaine Patch 4 % eC W1 ([facility]) Compazine 25mg UNK 05/22/2020 12:00:00 AM EST active Compazine 25mg eCW1 ([facility]) Compazine 25mg UNK 05/22/2020 12:00:00 AM EST active Compazine 25mg eCW1 ([facility]) HM Lidocaine Patch 4 % HM Lidocaine Patch 4 % 05/22/2020 12:00:[address] active HM Lidocaine Patch 4 % eC W1 ([facility]) Compazine 25mg UNK 05/22/2020 12:00:00 AM EST active Compazine 25mg eCW1 ([facility]) HM Lidocaine Patch 4 % HM Lidocaine Patch 4 % 05/22/2020 12:00:[address] active HM Lidocaine Patch 4 % eC W1 ([facility]) Compazine 25mg UNK 05/22/2020 12:00:00 AM EST active Compazine 25mg eCW1 ([facility]) HM Lidocaine Patch 4 % HM Lidocaine Patch 4 % 05/22/2020 12:00:[address] active HM Lidocaine Patch 4 % eC W1 ([facility]) Compazine 25mg UNK 05/22/2020 12:00:00 AM EST active Compazine 25mg eCW1 ([facility]) HM Lidocaine Patch 4 % HM Lidocaine Patch 4 % 05/22/2020 12:00:[address] active HM Lidocaine Patch 4 % eC W1 ([facility]) HM Lidocaine Patch 4 % HM Lidocaine Patch 4 % 05/22/2020 12:00:[address] active HM Lidocaine Patch 4 % eC W1 ([facility]) HM Lidocaine Patch 4 % HM Lidocaine Patch 4 % 05/22/2020 12:00:[address] active HM Lidocaine Patch 4 % eC W1 ([facility]) HM Lidocaine Patch 4 % HM Lidocaine Patch 4 % 05/22/2020 12:00:[address] active HM Lidocaine Patch 4 % eC W1 ([facility]) Compazine 25mg UNK 05/22/2020 12:00:00 AM EST active Compazine 25mg eCW1 ([facility]) Compazine 25mg UNK 05/22/2020 12:00:00 AM EST active Compazine 25mg eCW1 ([facility]) HM Lidocaine Patch 4 % HM Lidocaine Patch 4 % 05/22/2020 12:00:[address] active HM Lidocaine Patch 4 % eC W1 ([facility]) Compazine 25mg UNK 05/22/2020 12:00:00 AM EST active Compazine 25mg eCW1 ([facility]) HM Lidocaine Patch 4 % HM Lidocaine Patch 4 % 05/22/2020 12:00:[address] active HM Lidocaine Patch 4 % eC W1 ([facility]) HM Lidocaine Patch 4 % HM Lidocaine Patch 4 % 05/22/2020 12:00:[address] active HM Lidocaine Patch 4 % eC W1 ([facility]) Compazine 25mg UNK 05/22/2020 12:00:00 AM EST active Compazine 25mg eCW1 ([facility]) Compazine 25mg UNK 05/22/2020 12:00:00 AM EST active Compazine 25mg eCW1 ([facility]) Compazine 25mg UNK 05/22/2020 12:00:00 AM EST active Compazine 25mg eCW1 ([facility]) HM Lidocaine Patch 4 % HM Lidocaine Patch 4 % 05/22/2020 12:00:[address] active HM Lidocaine Patch 4 % eC W1 ([facility]) Compazine 25mg UNK 05/22/2020 12:00:00 AM EST active Compazine 25mg eCW1 ([facility]) Compazine 25mg UNK 05/22/2020 12:00:00 AM EST active Compazine 25mg eCW1 ([facility]) Compazine 25mg UNK 05/22/2020 12:00:00 AM EST active Compazine 25mg eCW1 ([facility]) HM Lidocaine Patch 4 % HM Lidocaine Patch 4 % 05/22/2020 12:00:[address] active HM Lidocaine Patch 4 % eC W1 ([facility]) HM Lidocaine Patch 4 % HM Lidocaine Patch 4 % 05/22/2020 12:00:[address] active HM Lidocaine Patch 4 % eC W1 ([facility]) Compazine 25mg UNK 05/22/2020 12:00:00 AM EST active Compazine 25mg eCW1 ([facility]) Compazine 25mg UNK 05/22/2020 12:00:00 AM EST active Compazine 25mg eCW1 ([facility]) HM Lidocaine Patch 4 % HM Lidocaine Patch 4 % 05/22/2020 12:00:[address] active HM Lidocaine Patch 4 % eC W1 ([facility]) HM Lidocaine Patch 4 % HM Lidocaine Patch 4 % 05/22/2020 12:00:[address] active HM Lidocaine Patch 4 % eC W1 ([facility]) HM Lidocaine Patch 4 % HM Lidocaine Patch 4 % 05/22/2020 12:00:[address] active HM Lidocaine Patch 4 % eC W1 ([facility]) HM Lidocaine Patch 4 % HM Lidocaine Patch 4 % 05/22/2020 12:00:[address] active HM Lidocaine Patch 4 % eC W1 ([facility]) HM Lidocaine Patch 4 % HM Lidocaine Patch 4 % 05/22/2020 12:00:[address] active HM Lidocaine Patch 4 % eC W1 ([facility]) HM Lidocaine Patch 4 % HM Lidocaine Patch 4 % 05/22/2020 12:00:[address] active HM Lidocaine Patch 4 % eC W1 ([facility]) HM Lidocaine Patch 4 % HM Lidocaine Patch 4 % 05/22/2020 12:00:[address] active HM Lidocaine Patch 4 % eC W1 ([facility]) HM Lidocaine Patch 4 % HM Lidocaine Patch 4 % 05/22/2020 12:00:[address] active HM Lidocaine Patch 4 % eC W1 ([facility]) Compazine 25mg UNK 05/22/2020 12:00:00 AM EST active Compazine 25mg eCW1 ([facility]) Compazine 25mg UNK 05/22/2020 12:00:00 AM EST active Compazine 25mg eCW1 ([facility]) HM Lidocaine Patch 4 % HM Lidocaine Patch 4 % 05/22/2020 12:00:[address] active [facility] Lidocaine Patch 4 % [facility] [facility]) 0.4 mg 05/15/2020 12:00:00 AM EST capsule 30 TAKE ONE CAPSULE BY MOUTH EVERY DAY TAKE ONE CAPSULE BY MOUTH EVERY DAY SOLD: 09/28/2020 [facility] Cyclobenzaprine hydrochloride 10 MG Oral Tablet CYCLOBENZAPR [...] DOSE = 100 UNITS SOLD: 05/17/2020 [facility] Meclizine Hydrochloride 25 MG Oral Tablet MECLIZINE [...] BY MOUTH EVERY DAY SOLD: 05/17/2020 [facility] atorvastatin 10 MG Oral Tablet ATORVASTATIN CALCIUM 05/15/2020 1 2:00:00 AM EST tablet 90 TAKE ONE TABLET BY MOUTH EVERY D AY TAKE ONE TABLET BY MOUTH EVERY DAY SOLD: 05/17/2020 [facility] Acetaminophen 325 MG / Hydrocodone Ael trate 10 MG Oral Tablet HYDROcodone- Acetaminophen 10-325 MG Oral Tablet (VICODIN) HYDROcodone-Acetaminophen 10-325 MG Oral Tablet (VICODIN) 05/07/2020 12:00:00 AM EST active TAKE ONE TABLET BY MOUTH FOUR TIMES A DAY NEEDED MAXIMUM DAILY DOSE 4 [facility] 10-325 mg 05/07/2020 12:00:00 AM [...] MAXIMUM DAILY DOSE = 3 SOLD: 04/21/2020 [facility] 40 mg 03/23/2020 12:00:00 AM EDT [...] 3350 105 MG/ML / Pot assium Chloride 0.26242 MEQ/ML / Sodium Bicarbonate 0.017 MEQ/ML / Sodium Chloride 0.0479 MEQ/ML Oral Solution [TriLyte] Trilyte 03/19/2020 12:00:00 AM EDT active [facility] ([facility]) Omeprazole 40 MG Delayed Release Oral Capsule Omeprazole 03/19/2020 12:00:00 AM EDT ORAL active [facility] ([facility] Dicyclomine Hydrochloride 10 MG Oral Capsule Dicyclomine HCL 03/19/2020 12:00:00 AM EDT ORAL active [facility] ([facility]) 10 mg 03/19/2020 12:00:00 AM EDT capsule [...] ONE CAPSULE BY MOUTH EVERY DAY WITH [facility] Insulin Glargine 100 UNT/ML Injectable S olution insulin glargine (LANTUS) 100 UNIT/ML injection insulin glargine (LANTUS) 100 UNIT/ML injection 15 U Subcutaneous aborted Inject 15 Un its into the skin Two times daily as needed [facility] Aspirin 81 MG Oral Tablet aspirin 81 MG tablet aspirin 81 MG tablet 81 mg Oral aborted Take 81 mg by mouth daily. [facility] Cisapride POWD [id number] 10 mg Does not apply a borted 10 mg by Does not apply route Four times daily before meals and nightly [facility] Insurance Providers Payer name Policy type / Coverage type Policy ID Covered democrat ID Covered democrat's relationship to oh Policy Oh Plan Information [facility] I [id number] Self [id number] MEDICAID M [id number] Self [id number] MEDICAID [id number] SP [id number] MEDICAID [id number] SP [id number] MEDICAID [id number] SP [id number] MEDICAID [id number] SP [id number] MEDICAID MANAGED I [id number] Self [id number] MEDICAID [id number] SP [id number] MEDICAID MANAGED I [id number] Self [id number] MEDICAID MANAGED I [id number] Self [id number] MEDICAID M [id number] Self [id number] [facility] [id number] [facility] [id number] [facility] [id number] Medicaid [place] Medicaid [id number] Self [id number] [facility] [id number] [facility] [id number] Medicaid [place] Medicaid [id number] 0 Self [id number] ANSI-Medicaid [id number] ANSI-Medicaid [id number] ANSI-Medicaid [id number] MEDICAID [facility] [id number] ANSI-Medicaid [id number] Medicaid [place] Medicaid [id number] 0 Self [id number] ANSI-Medicaid [id number] ANSI-Medicaid [id number] ANSI-Medicaid [id number] Medicaid [place] Medicaid [id number] 0 Self [id number] ANSI-Medicaid [id number] ANSI-Medicaid [id number] ANSI-Medicaid [id number] ANSI-Medicaid [id number] ANSI-Medicaid [id number] ANSI-Medicaid [id number] ANSI-Medicaid [id number] ANSI-Medicaid [id number] ANSI-Medicaid [id number] ANSI-Medicaid [id number] ANSI-Medicaid [id number] ANSI-Medicaid [id number] ANSI-Medicaid [id number] ANSI-Medicaid [id number]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 Labs Tab for 2019 nCoV RT-PCR resultsHAdV DNA QI TREY+non-probe : Not DetectedHCoV [id number] Nph QI TREY+non-probe : Not DetectedHCoV [id number] Nph QI TREY+non-probe : Not [id number] RNA Nph QI TREY+non-probe : Not [id number] RNA Upper resp QI TREY+probe : Not [...] DNA Nph Q TREY+non-probe : Not DetectedB [id number] DNA Nph TREY+non-probe : Not Detected Name Value Range Interpretation Code Description Data Krystle rce(s) Supporting Document(s) ID Date Data Source [id number] 02/01/2021 10:11:00 AM EDT [facility] Name Value Range Interpretation Code Description Data Krystle rce(s) Supporting Document(s) SARS-CoV-2 RNA 2019 nCoV Real-Time RT-PCR: NOT DETECTED [facility] This lab was ordered by [facility] and reported by [facility]. ID Date Data Source [id number] 02/01/2021 07:00:07 AM EDT [facility] Name Value Range Interpretation Code Description Data Krystle rce(s) Supporting Document(s) Glucose [Mass/volume] in Capillary blood by Glucometer 230 mg/dL 70- 140 H [facility] ID Date Data Source [id number] 02/01/2021 05:04:21 AM EDT [facility] Name Value Range Interpretation Code Description Data Krystle rce(s) Supporting Document(s) Bicarbonate [Moles/volume] in Serum 24 mmol/L 22-29 [facility] Chloride [Moles/volume] in Serum or Plasma 101 mmol/L 98-107 [facility] Creatinine [Mass/volume] in Serum or Plasma 0.51 mg/dL 0.70-1.20 L [facility] Glucose [Mass/volume] in Serum or Plasma 253 mg/dL 70-140 H [facility] Potassium [Moles/volume] in Serum or Plasma 3.6 mmol/L 3.4-5.1 [facility] Sodium [Moles/volume] in Serum or Plasma 137 mmol/L 136-145 [facility] Urea nitrogen [Mass/volume] in Serum or Plasma 7 mg/dL 8-23 L [facility] Anion gap 3 in Serum or Plasma 12 mmol/L 8-15 [facility] Osmolality of Serum or Plasma by calculation 291 mosm/kg 275-300 [facility] Creatinine/Urea nitrogen [Mass Ratio] in Serum or Plasma 14 [facility] Calcium [Mass/volume] in Serum or Plasma 8.6 mg/dL 8.8-10.2 L [facility] Glomerular filtration rate/1.73 sq M pre dicted among non-blacks [Volume Rate/Area] in Serum or Plasma by Creatinine-based formula (MDRD) >6 0 [facility] Glomerular filtration rate/1.73 sq M pre dicted among blacks [Volume Rate/Area] in Serum or Plasma by Creatinine-based formula (MDRD) >60 [facility] ID Date Data Source [id number] 02/01/2021 05:04:21 AM [facility] Name Value Range Interpretation Code Description Data Krystle rce(s) Supporting Document(s) Magnesium [Mass/volume] in Serum or Plasma 1.9 mg/dL 1.6-2.4 [facility] ID Date Data Source [id number] 02/01/2021 05:04:40 AM [facility] Name Value Range Interpretation Code Description Data Krystle rce(s) Supporting Document(s) Leukocytes [#/volume] in Blood by Automated count 4.7 10*3/uL 4-10 [facility] Erythrocytes [#/volume] in Blood by Automated count 4.17 10*6/uL 4.6- 6.1 L [facility] Hemoglobin [Mass/volume] in Blood 13.2 g/dL 13.5-18 L [facility] Hematocrit [Volume Fraction] of Blood by Automated count 39.1 % 4 1-53 L [facility] Erythrocyte mean corpuscular volume [Entitic volume] by Auto mated count 93.8 fL 80-96 [facility] Erythrocyte mean corpuscular hemoglobin [Entitic mass] by Automated count 31.6 pg 27-33 [facility] Erythrocyte mean corpuscular hemoglobin concentration [Mass/volume] by Automated count 33.7 g/dL 32.0-36.0 [facility] al Erythrocyte distribution width [Ratio] by Automated count 12.1 % 11.5-14.5 [facility] Platelets [#/volume] in Blood by Automated count 122 10*3/uL 150-400 L [facility] ID Date Data Source [id number] 01/31/2021 09:39:28 PM [facility] Name Value Range Interpretation Code Description Data Krystle rce(s) Supporting Document(s) Glucose [Mass/volume] in Capillary blood by Glucometer 181 mg/dL 70- 140 H [facility] ID Date Data Source [id number] 01/31/2021 04:59:29 PM [facility] Value Range Interpretation Code Description Data Krystle rce(s) Supporting Document(s) Glucose [Mass/volume] in Capillary blood by Glucometer 278 mg/dL 70- 140 H [facility] ID Date Data Source [id number] 01/31/2021 12:08:44 PM [facility] Value Range Interpretation Code Description Data Krystle rce(s) Supporting Document(s) Glucose [Mass/volume] in Capillary blood by Glucometer 209 mg/dL 70- 140 H [facility] ID Date Data Source [id number] 01/31/2021 07:57:31 AM [facility] Value Range Interpretation Code Description Data Krystle rce(s) Supporting Document(s) Glucose [Mass/volume] in Capillary blood by Glucometer 246 mg/dL 70- 140 H [facility] ID Date Data Source [id number] 01/31/2021 06:50:39 AM [facility] Value Range Interpretation Code Description Data Krystle rce(s) Supporting Document(s) Leukocytes [#/volume] in Blood by Automated count 5.3 10*3/uL 4-10 [facility] Erythrocytes [#/volume] in Blood by Automated count 4.23 10*6/uL 4.6- 6.1 L [facility] Hemoglobin [Mass/volume] in Blood 13.3 g/dL 13.5-18 L [facility] Hematocrit [Volume Fraction] of Blood by Automated count 39.6 % 4 1-53 L [facility] Erythrocyte mean corpuscular volume [Entitic volume] by Auto mated count 93.7 fL 80-96 [facility] Erythrocyte mean corpuscular hemoglobin [Entitic mass] by Automated count 31.5 pg 27-33 [facility] Erythrocyte mean corpuscular hemoglobin concentration [Mass/volume] by Automated count 33.6 g/dL 32.0-36.0 [facility] Erythrocyte distribution width [Ratio] by Automated count 12.6 % 11.5-14.5 [facility] Platelets [#/volume] in Blood by Automated count 116 10*3/uL 150-400 L [facility] ID Date Data Source [id number] 01/31/2021 07:55:55 AM EDT [facility] Name Value Range Interpretation Code Description Data Krystle rce(s) Supporting Document(s) Bicarbonate [Moles/volume] in Serum 22 mmol/L 22-29 [facility] Chloride [Moles/volume] in Serum or Plasma 101 mmol/L 98-107 [facility] Creatinine [Mass/volume] in Serum or Plasma 0.50 mg/dL 0.70-1.20 [facility] Glucose [Mass/volume] in Serum or Plasma 230 mg/dL 70-140 H [facility] Potassium [Moles/volume] in Serum or Plasma 3.8 mmol/L 3.4-5.1 [facility] Hemolyzed Sodium [Moles/volume] in Serum or Plasma 136 mmol/L 136-145 [facility] Urea nitrogen [Mass/volume] in Serum or Plasma 9 mg/dL 8-23 [facility] Anion gap 3 in Serum or Plasma 13 mmol/L 8-15 [facility] Osmolality of Serum or Plasma by calculation 288 mosm/kg 275-300 [facility] Creatinine/Urea nitrogen [Mass Ratio] in Serum or Plasma 17 [facility] Calcium [Mass/volume] in Serum or Plasma 8.7 mg/dL 8.8-10.2 [facility] Glomerular filtration rate/1.73 sq M pre dicted among non-blacks [Volume Rate/Area] in Serum or Plasma by Creatinine-based formula (MDRD) >6 0 [facility] Glomerular filtration rate/1.73 sq M pre dicted among blacks [Volume Rate/Area] in Serum or Plasma by Creatinine-based formula (MDRD) >60 [facility] ID Date Data Source [id number] 01/31/2021 07:55:55 AM EDT [facility] Name Value Range Interpretation Code Description Data Krystle rce(s) Supporting Document(s) Magnesium [Mass/volume] in Serum or Plasma 1.9 mg/dL 1.6-2.4 [facility] ID Date Data Source [id number] 01/30/2021 09:48:26 PM EDT [facility] Value Range Interpretation Code Description Data Krystle rce(s) Supporting Document(s) Glucose [Mass/volume] in Capillary blood by Glucometer 265 mg/dL 70- 140 H [facility] ID Date Data Source [id number] [facility] Code Description Data Krystle rce(s) Supporting Document(s) Glucose [Mass/volume] in Capillary blood by Glucometer 229 mg/dL 70- 140 H [facility] ID Date Data Source [id number] 01/30/2021 03:18:25 PM EDT [facility] Value Range Interpretation Code Description Data Krystle rce(s) Supporting Document(s) [facility] [id number] lbm [file] steel rod buster+[id number]+kL9yq9WnNH+[id number] [file] [id number] ID Date Data Source [id number] 01/30/2021 11:48:33 AM [facility] Name Value Range Interpretation Code Description Data Krystle rce(s) Supporting Document(s) Glucose [Mass/volume] in Capillary blood by Glucometer 202 mg/dL 70- 140 H [facility] ID Date Data Source [id number] 01/30/2021 06:22:32 AM [facility] Name Value Range Interpretation Code Description Data Krystle rce(s) Supporting Document(s) Leukocytes [#/volume] in Blood by Automated count 6.4 10*3/uL 4-10 [facility] Erythrocytes [#/volume] in Blood by Automated count 3.81 10*6/uL 4.6- 6.1 L [facility] Hemoglobin [Mass/volume] in Blood 12.1 g/dL 13.5-18 L [facility] Hematocrit [Volume Fraction] of Blood by Automated count 35.8 % 4 1-53 L [facility] Erythrocyte mean corpuscular volume [Entitic volume] by Auto mated count 94.1 fL 80-96 [facility] Erythrocyte mean corpuscular hemoglobin [Entitic mass] by Automated count 31.8 pg 27-33 [facility] Erythrocyte mean corpuscular hemoglobin concentration [Mass/volume] by Automated count 33.8 g/dL 32.0-36.0 [facility] Erythrocyte distribution width [Ratio] by Automated count 12.6 % 11.5-14.5 [facility] Platelets [#/volume] in Blood by Automated count 112 10*3/uL 150-400 L [facility] ID Date Data Source [id number] 01/30/2021 06:40:44 AM [facility] Value Range Interpretation Code Description Data Krystle rce(s) Supporting Document(s) Bicarbonate [Moles/volume] in Serum 15 mmol/L 22-29 L [facility] Chloride [Moles/volume] in Serum or Plasma 104 mmol/L 98-107 [facility] Creatinine [Mass/volume] in Serum or Plasma 0.56 mg/dL 0.70-1.20 L [facility] Glucose [Mass/volume] in Serum or Plasma 180 mg/dL 70-140 H [facility] Potassium [Moles/volume] in Serum or Plasma 3.3 mmol/L 3.4-5.1 [facility] Sodium [Moles/volume] in Serum or Plasma 133 mmol/L 136-145 [facility] Urea nitrogen [Mass/volume] in Serum or Plasma 10 mg/dL 8-23 [facility] Anion gap 3 in Serum or Plasma 14 mmol/L 8-15 [facility] Osmolality of Serum or Plasma by calculation 279 mosm/kg 275-300 [facility] Creatinine/Urea nitrogen [Mass Ratio] in Serum or Plasma 18 [facility] Calcium [Mass/volume] in Serum or Plasma 8.0 mg/dL 8.8-10.2 [facility] Glomerular filtration rate/1.73 sq M pre dicted among non-blacks [Volume Rate/Area] in Serum or Plasma by Creatinine-based formula (MDRD) >6 0 [facility] Glomerular filtration rate/1.73 sq M pre dicted among blacks [Volume Rate/Area] in Serum or Plasma by Creatinine-based formula (MDRD) >60 [facility] ID Date Data Source [id number] 01/30/2021 06:40:44 AM [facility] Value Range Interpretation Code Description Data Krystle rce(s) Supporting Document(s) Magnesium [Mass/volume] in Serum or Plasma 2.1 mg/dL 1.6-2.4 [facility] ID Date Data Source [id number] 01/29/2021 10:21:51 PM EDT [facility] Name Value Range Interpretation Code Description Data Krystle rce(s) Supporting Document(s) Glucose [Mass/volume] in Capillary blood by Glucometer 154 mg/dL 70- 140 H [facility] ID Date Data Source [id number] 01/29/2021 06:56:05 PM [facility] Name Value Range Interpretation Code Description Data Krystle rce(s) Supporting Document(s) Potassium [Moles/volume] in Serum or Plasma 3.5 mmol/L 3.4-5.1 [facility] ID Date Data Source [id number] 01/29/2021 06:56:05 PM [facility] Name Value Range Interpretation Code Description Data Krystle rce(s) Supporting Document(s) Magnesium [Mass/volume] in Serum or Plasma 2.6 mg/dL 1.6-2.4 H [facility] ID Date Data Source [id number] 01/29/2021 04:19:25 PM [facility] Name Value Range Interpretation Code Description Data Krystle rce(s) Supporting Document(s) Glucose [Mass/volume] in Capillary blood by Glucometer 213 mg/dL 70- 140 H [facility] ID Date Data Source [id number] 01/29/2021 01:18:34 PM [facility] Name Value Range Interpretation Code Description Data Krystle rce(s) Supporting Document(s) Bicarbonate [Moles/volume] in Serum 12 mmol/L 22-29 L [facility] Chloride [Moles/volume] in Serum or Plasma 107 mmol/L 98-107 [facility] Creatinine [Mass/volume] in Serum or Plasma 0.73 mg/dL 0.70-1.20 [facility] Glucose [Mass/volume] in Serum or Plasma 210 mg/dL 70-140 [facility] Potassium [Moles/volume] in Serum or Plasma 3.4 mmol/L 3.4-5.1 [facility] Sodium [Moles/volume] in Serum or Plasma 139 mmol/L 136-145 [facility] Urea nitrogen [Mass/volume] in Serum or Plasma 15 mg/dL 8-23 [facility] Anion gap 3 in Serum or Plasma 20 mmol/L 8-15 [facility] Osmolality of Serum or Plasma by calculation 295 mosm/kg 275-300 [facility] Creatinine/Urea nitrogen [Mass Ratio] in Serum or Plasma 21 [facility] Calcium [Mass/volume] in Serum or Plasma 8.2 mg/dL 8.8-10.2 L [facility] Glomerular filtration rate/1.73 sq M pre dicted among non-blacks [Volume Rate/Area] in Serum or Plasma by Creatinine-based formula (MDRD) >6 0 [facility] Glomerular filtration rate/1.73 sq M pre dicted among blacks [Volume Rate/Area] in Serum or Plasma by Creatinine-based formula (MDRD) >60 [facility] ID Date Data Source [id number] 01/29/2021 12:31:32 PM EDT [facility] Name Value Range Interpretation Code Description Data Krystle rce(s) Supporting Document(s) Glucose [Mass/volume] in Capillary blood by Glucometer 202 mg/dL 70- 140 [facility] ID Date Data Source [id number] 01/29/2021 09:35:27 AM [facility] CT HEAD WITHOUT CONTRAST [id number] RESU LTInterpreted by:Heidy Moreno MDINDICATION: R frontal [...] rce(s) Supporting Document(s) ID Date Data Source [id number] 01/29/2021 08:05:17 AM [facility] Value Range Interpretation Code Description Data Krystle rce(s) Supporting Document(s) Glucose [Mass/volume] in Capillary blood by Glucometer 180 mg/dL 70- 140 [facility] ID Date Data Source [id number] 01/29/2021 06:04:20 AM [facility] Value Range Interpretation Code Description Data Krystle rce(s) Supporting Document(s) Leukocytes [#/volume] in Blood by Automated count 8.9 10*3/uL 4-10 [facility] Erythrocytes [#/volume] in Blood by Automated count 3.40 10*6/uL 4.6- 6.1 L [facility] Hemoglobin [Mass/volume] in Blood 10.8 g/dL 13.5-18 L [facility] Hematocrit [Volume Fraction] of Blood by Automated count 32.5 % 4 1-53 [facility] Erythrocyte mean corpuscular volume [Entitic volume] by Auto mated count 95.7 fL 80-96 [facility] Erythrocyte mean corpuscular hemoglobin [Entitic mass] by Automated count 31.7 pg 27-33 [facility] Erythrocyte mean corpuscular hemoglobin concentration [Mass/volume] by Automated count 33.1 g/dL 32.0-36.0 [facility] distribution width [Ratio] by Automated count 12.6 % 11.5-14.5 [facility] Platelets [#/volume] in Blood by Automated count 142 10*3/uL 150-400 [facility] ID Date Data Source [id number] 01/29/2021 06:33:16 AM [facility] Value Range Interpretation Code Description Data Krystle rce(s) Supporting Document(s) Magnesium [Mass/volume] in Serum or Plasma 1.8 mg/dL 1.6-2.4 [facility] ID Date Data Source [id number] 01/29/2021 06:33:16 AM [facility] Value Range Interpretation Code Description Data Krystle rce(s) Supporting Document(s) Bicarbonate [Moles/volume] in Serum 12 mmol/L 22-29 L [facility] Chloride [Moles/volume] in Serum or Plasma 108 mmol/L 98-107 [facility] Creatinine [Mass/volume] in Serum or Plasma 0.66 mg/dL 0.70-1.20 [facility] Glucose [Mass/volume] in Serum or Plasma 189 mg/dL 70-140 [facility] Potassium [Moles/volume] in Serum or Plasma 4.4 mmol/L 3.4-5.1 [facility] Hemolyzed Sodium [Moles/volume] in Serum or Plasma 137 mmol/L 136-145 [facility] Urea nitrogen [Mass/volume] in Serum or Plasma 14 mg/dL 8-23 [facility] Anion gap 3 in Serum or Plasma 17 mmol/L 8-15 H [facility] Osmolality of Serum or Plasma by calculation 290 mosm/kg 275-300 [facility] Creatinine/Urea nitrogen [Mass Ratio] in Serum or Plasma 21 [facility] Calcium [Mass/volume] in Serum or Plasma 7.2 mg/dL 8.8-10.2 [facility] Glomerular filtration rate/1.73 sq M pre dicted among non-blacks [Volume Rate/Area] in Serum or Plasma by Creatinine-based formula (MDRD) >6 0 [facility] Glomerular filtration rate/1.73 sq M pre dicted among blacks [Volume Rate/Area] in Serum or Plasma by Creatinine-based formula (MDRD) >60 [facility] ID Date Data Source [id number] 01/29/2021 06:33:16 AM [facility] Value Range Interpretation Code Description Data Krystle rce(s) Supporting Document(s) Phosphate [Mass/volume] in Serum or Plasma 3.0 mg/dL 2.5-4.5 [facility] ID Date Data Source [id number] 01/29/2021 06:08:54 AM [facility] Value Range Interpretation Code Description Data Krystle rce(s) Supporting Document(s) Calcium.ionized [Moles/volume] in Arterial blood 1.08 mmol/L 1.13-1.3 2 [facility] ID Date Data Source [id number] 01/29/2021 05:10:46 AM EDT [facility] Name Value Range Interpretation Code Description Data Krystle rce(s) Supporting Document(s) Glucose [Mass/volume] in Capillary blood by Glucometer 185 mg/dL 70- 140 [facility] ID Date Data Source [id number] 01/29/2021 02:24:41 AM [facility] Value Range Interpretation Code Description Data Krystle rce(s) Supporting Document(s) Bicarbonate [Moles/volume] in Serum 14 mmol/L 22-29 L [facility] Chloride [Moles/volume] in Serum or Plasma 105 mmol/L 98-107 [facility] Confirmed Creatinine [Mass/volume] in Serum or Plasma 0.73 mg/dL 0.70-1.20 [facility] Glucose [Mass/volume] in Serum or Plasma 193 mg/dL 70-140 [facility] Potassium [Moles/volume] in Serum or Plasma 3.5 mmol/L 3.4-5.1 [facility] HemolyzedConfirmed Sodium [Moles/volume] in Serum or Plasma 138 mmol/L 136-145 [facility] Confirmed Urea nitrogen [Mass/volume] in Serum or Plasma 15 mg/dL 8-23 [facility] Anion gap 3 in Serum or Plasma 19 mmol/L 8-15 [facility] Confirmed Osmolality of Serum or Plasma by calculation 292 mosm/kg 275-300 [facility] Confirmed Creatinine/Urea nitrogen [Mass Ratio] in Serum or Plasma 21 [facility] Calcium [Mass/volume] in Serum or Plasma 8.0 mg/dL 8.8-10.2 [facility] Glomerular filtration rate/1.73 sq M pre dicted among non-blacks [Volume Rate/Area] in Serum or Plasma by Creatinine-based formula (MDRD) >6 0 [facility] Glomerular filtration rate/1.73 sq M pre dicted among blacks [Volume Rate/Area] in Serum or Plasma by Creatinine-based formula (MDRD) >60 [facility] ID Date Data Source [id number] 01/29/2021 12:39:22 AM [facility] Value Range Interpretation Code Description Data Krystle rce(s) Supporting Document(s) Bicarbonate [Moles/volume] in Serum 12 mmol/L 22-29 L [facility] Chloride [Moles/volume] in Serum or Plasma 123 mmol/L 98-107 [facility] Confirmed Creatinine [Mass/volume] in Serum or Plasma 0.52 mg/dL 0.70-1.20 L [facility] Glucose [Mass/volume] in Serum or Plasma 178 mg/dL 70-140 [facility] Potassium [Moles/volume] in Serum or Plasma 3.2 mmol/L 3.4-5.1 [facility] HemolyzedConfirmed Sodium [Moles/volume] in Serum or Plasma 150 mmol/L 136-145 [facility] Confirmed Urea nitrogen [Mass/volume] in Serum or Plasma 13 mg/dL 8- [facility] Anion gap 3 in Serum or Plasma 15 mmol/L 8- [facility] Confirmed Osmolality of Serum or Plasma by calculation 315 mosm/kg 275-300 [facility] Confirmed Creatinine/Urea nitrogen [Mass Ratio] in Serum or Plasma [facility] Calcium [Mass/volume] in Serum or Plasma 7.0 mg/dL 8.8-10.2 [facility] Glomerular filtration rate/1.73 sq M pre dicted among non-blacks [Volume Rate/Area] in Serum or Plasma by Creatinine-based formula (MDRD) >6 0 [facility] Glomerular filtration rate/1.73 sq M pre dicted among blacks [Volume Rate/Area] in Serum or Plasma by Creatinine-based formula (MDRD) >60 [facility] ID Date Data Source [id number] 01/28/2021 11:46:18 PM [facility] Name Value Range Interpretation Code Description Data Krystle rce(s) Supporting Document(s) Glucose [Mass/volume] in Capillary blood by Glucometer 193 mg/dL 70- 140 [facility] ID Date Data Source [id number] 01/28/2021 08:28:34 PM [facility] Value Range Interpretation Code Description Data Krystle rce(s) Supporting Document(s) Glucose [Mass/volume] in Capillary blood by Glucometer 224 mg/dL 70- 140 [facility] ID Date Data Source [id number] 01/28/2021 07:34:41 PM [facility] Value Range Interpretation Code Description Data Krystle rce(s) Supporting Document(s) Bicarbonate [Moles/volume] in Serum 12 mmol/L 22-29 [facility] Chloride [Moles/volume] in Serum or Plasma 104 mmol/L 98-107 [facility] Creatinine [Mass/volume] in Serum or Plasma 0.72 mg/dL 0.70-1.20 [facility] Glucose [Mass/volume] in Serum or Plasma 237 mg/dL 70-140 [facility] Potassium [Moles/volume] in Serum or Plasma 3.6 mmol/L 3.4-5.1 [facility] Sodium [Moles/volume] in Serum or Plasma 136 mmol/L 136-145 [facility] Urea nitrogen [Mass/volume] in Serum or Plasma 15 mg/dL 8-23 [facility] Anion gap 3 in Serum or Plasma 20 mmol/L 8-15 H [facility] Osmolality of Serum or Plasma by calculation 290 mosm/kg 275-300 [facility] Creatinine/Urea nitrogen [Mass Ratio] in Serum or Plasma 20 [facility] Calcium [Mass/volume] in Serum or Plasma 8.6 mg/dL 8.8-10.2 L [facility] Glomerular filtration rate/1.73 sq M pre dicted among non-blacks [Volume Rate/Area] in Serum or Plasma by Creatinine-based formula (MDRD) >6 0 [facility] Glomerular filtration rate/1.73 sq M pre dicted among blacks [Volume Rate/Area] in Serum or Plasma by Creatinine-based formula (MDRD) >60 [facility] ID Date Data Source [id number] 01/28/2021 06:01:30 PM [facility] Name Value Range Interpretation Code Description Data Krystle rce(s) Supporting Document(s) Glucose [Mass/volume] in Capillary blood by Glucometer 213 mg/dL 70- 140 [facility] ID Date Data Source [id number] 01/28/2021 02:54:43 PM [facility] Name Value Range Interpretation Code Description Data Krystle rce(s) Supporting Document(s) [facility] [id number]/SFZwrIWHly8IqBJqxULs8BJzcKRDkO9DlZTM9lP9nAHM5YDnMUaDeQdMcIGX8 [facility] [file] pfJlq9gaxbylo75/CSc9JAGSvNicCA8ufxntdYP4+fCTrK2WLCBAGJc4EaKkEzjmGhbj2m+Cristóbal+Mc9h [file] RiZmIzNWM+QF1cEBk+Ah6Sf5EmndJ5ehJtVXdfSQOmZc9UHYDSE9EJHe== ID Date Data Source [id number] 01/28/2021 02:44:29 PM EDT [facility] XR CHEST FRONTAL ONLY [id number] RESULTI nterpreted by:Nelida Mccullough MDINDICATION: Nasogastric tube [...] rce(s) Supporting Document(s) ID Date Data Source [id number] 01/28/2021 01:50:05 PM EDT [facility] Name Value Range Interpretation Code Description Data Krystle rce(s) Supporting Document(s) ED Provider Note [facility] [id number]/MSRtjQILeb1EfERctDLa0SCroFWKiY2WjLOU7yH0bUVJ0KOaBXaNyCgGqGEV8 lbm [file] Maintenance Service Technician+uX9vrfHE2PnLEjLPEX6VS6qpukrerJsY41ymtfG [file] [id number]aAM2jLSVZNl0+SImebMMmoOxpZZNIDqO9QPh7UAizKXSXJa7J ID Date Data Source [id number] 01/28/2021 02:09:37 PM EDT [facility] Name Value Range Interpretation Code Description Data Krystle rce(s) Supporting Document(s) Bicarbonate [Moles/volume] in Serum 11 mmol/L 22-29 L [facility] Chloride [Moles/volume] in Serum or Plasma 104 mmol/L 98-107 [facility] Creatinine [Mass/volume] in Serum or Plasma 0.68 mg/dL 0.70-1.20 L [facility] Glucose [Mass/volume] in Serum or Plasma 247 mg/dL 70-140 [facility] Potassium [Moles/volume] in Serum or Plasma 3.9 mmol/L 3.4-5.1 [facility] Sodium [Moles/volume] in Serum or Plasma 139 mmol/L 136-145 [facility] Urea nitrogen [Mass/volume] in Serum or Plasma 15 mg/dL 8-23 [facility] Anion gap 3 in Serum or Plasma 24 mmol/L 8-15 H [facility] Osmolality of Serum or Plasma by calculation 297 mosm/kg 275-300 [facility] Creatinine/Urea nitrogen [Mass Ratio] in Serum or Plasma 22 [facility] Calcium [Mass/volume] in Serum or Plasma 8.6 mg/dL 8.8-10.2 L [facility] Glomerular filtration rate/1.73 sq M pre dicted among non-blacks [Volume Rate/Area] in Serum or Plasma by Creatinine-based formula (MDRD) >6 0 [facility] Glomerular filtration rate/1.73 sq M pre dicted among blacks [Volume Rate/Area] in Serum or Plasma by Creatinine-based formula (MDRD) >60 [facility] ID Date Data Source [id number] 02/02/2021 09:37:52 AM EDT [facility] Cmnt XXX-Imp : L ANKLEMicroorgan ism XXX Cult : No growth 5 days Name Value Range Interpretation Code Description Data Krystle rce(s) Supporting Document(s) ID Date Data Source [id number] 02/02/2021 09:37:52 AM EDT [facility] Cmnt XXX-Imp : R LEGMicroorganis m XXX Cult : No growth 5 days Name Value Range Interpretation Code Description Data Krystle rce(s) Supporting Document(s) ID Date Data Source [id number] 01/28/2021 12:49:14 PM [facility] Name Value Range Interpretation Code Description Data Krystle rce(s) Supporting Document(s) Glucose [Mass/volume] in Capillary blood by Glucometer 223 mg/dL 70- 140 [facility] ID Date Data Source [id number] 01/28/2021 01:12:26 PM [facility] Service Cmnt XXX-Imp : NoneMicroorganism XXX Cult : Polymerase chain reaction assay was NEGATIVE for both methicillin-resistant Staphylococcus aureus (MRSA) and methicillin-susceptible Staphylococcus aureus (MSSA) Name Value Range Interpretation Code Description Data Krystle rce(s) Supporting Document(s) ID Date Data Source [id number] 01/28/2021 12:01:01 PM [facility] Name Value Range Interpretation Code Description Data Krystle rce(s) Supporting Document(s) Color of Urine [facility] Clarity of Urine [facility] Specific gravity of Urine by Refractometry automated 1.017 1.003 -1.030 [facility] pH of Urine by Automated test strip 6.0 5.0-8.0 [facility] Protein [Mass/volume] in Urine by Automated test strip 100 mg/dL Neg [facility] Glucose [Mass/volume] in Urine by Automated test strip Neg [facility] Ketones [Mass/volume] in Urine by Automated test strip 80 mg/dL Neg [facility] Bilirubin.total [Presence] in Urine by Automated test strip Negative [facility] Hemoglobin [Presence] in Urine by Automated test strip Neg [facility] Leukocyte esterase [Presence] in Urine by Automated test strip Negative [facility] Nitrite [Presence] in Urine by Automated test strip Negati [facility] Leukocytes [#/area] in Urine sediment by Automated count 0 -5 [facility] Erythrocytes [#/area] in Urine sediment by Automated count 5 /HPF 0-3 H [facility] Epithelial cells.squamous [#/area] in Urine sediment by Automate d count None [facility] Mucus [#/area] in Urine sediment by Microscopy low power field None [facility] ID Date Data Source [id number] 01/28/2021 08:36:57 AM EDT [facility] Name Value Range Interpretation Code Description Data Krystle rce(s) Supporting Document(s) Glucose [Mass/volume] in Capillary blood by Glucometer 236 mg/dL 70- 140 H [facility] ID Date Data Source [id number] 01/28/2021 08:07:50 AM EDT [facility] Name Value Range Interpretation Code Description Data Krystle rce(s) Supporting Document(s) [facility] [id number]ilke0Y4P8hBKxL7YkiMHsk7kwP1IjJ6FaTRXrIURJZH4BfODe jb2 [file] [id number]DWt9iDT4Nvt+SALES MGR Ibes3E9UpeH3FLYrfra///mUW4NNqadx3NpYUmGDfz54d1Z3Ao39ib4E14bQymRuzbcBcWyZ9SsJ6cyt 5IguXRFp2rEWL8ReUMbSup7rwBvOiO2i4ks20nfIzHDMsfjnbbThXeLvnvWb9e0mDBfCdHzFOgBZE+pN 49JSIxnCq0PaW9x0DzGkhae35rJdLbFyIJdId/niXj fIhs8g5ZMoCr6EQvk/EaLMpWbltV36R2hsrooh5SzPrvDpWo8hbaeYhglotUa6BinU/a8FVEIO+56xzF hojnFmVAbj7ktkmnFZQ3TWkrXBlheMIpzE/V0Wkb4YiqJVMsh+CsnEPF51uGVF4U4fXE6SvliJJOpHGO HBLs261+fwxr9rgwtqlHldzyk7Ky8kNunHoy1vFUkM S8p3DbMRkca8zalQOi4tLv2+JDcTz5nGziMFf3UQn1BI66hl4oGAW3uv9SWuRUa1iCY/yv9TIbTrbuE8 Labe5Bp5AD85LbEbFk4UM3nOnz4bcVXTE9tKBVcvJX3ePfVmD2cRmS9K88V1b6jizlz5Ul6l2opBS6n5 ITCG6CNO82MiwOVxzW9bViLzkgjAz4RTw9h3YGFi8y RIGXK7xvDFILSe5UwaJshv4CbK2Bqamhh3V0YsE3UNCpXTaFPs5h8GCI66eV2bUdwx2KwB4I88GQ2vRo 4PdrNEz6BSrn2VbDlSgWyeYV7ow89sM4QaV9ocTRYOFC4kNy3C5NbfD5we5Fx0yvp2KLh+actA0nAIvs m7a5VnSHyF6Wxjz2MLsZhE0WUf6Iwg34QydqTKrksU BmxoRGoyDFJyllbxIlwu1ngdkbr1iRxm+XKre+diwqikPbfrYSgOxdX1vy0E4O7C6HoKDm3Uy6bmRwjw et9eFuVL95kWm8PV7iPf7OHw0iM0dU3w+LQ3wOq3s+TM0jQt7fINle6XOjGlvJU+AEzVxVg79sFJq0tj kn1JJ2MLie7AOIv2c4A69c54Mv157xPMZwYw7XP7m6 [file] AdMwFPDLF4Fzx9SeJSVrLYDBMy1+PyP1LTB3eROkTql0DVK9BxazYAEVEe== ID Date Data Source [id number] 01/28/2021 06:22:09 AM EDT [facility] Name Value Range Interpretation Code Description Data Krystle rce(s) Supporting Document(s) Calcium.ionized [Moles/volume] in Arterial blood 1.18 mmol/L 1.13-1.3 2 [facility] ID Date Data Source [id number] 01/28/2021 06:35:32 AM EDT [facility] Name Value Range Interpretation Code Description Data Krystle rce(s) Supporting Document(s) Leukocytes [#/volume] in Blood by Automated count 10.3 10*3/uL 4-10 H [facility] Erythrocytes [#/volume] in Blood by Automated count 4.21 10*6/uL 4.6- 6.1 L [facility] Hemoglobin [Mass/volume] in Blood 13.6 g/dL 13.5-18 [facility] Hematocrit [Volume Fraction] of Blood by Automated count 41.0 % 4 1-53 [facility] Erythrocyte mean corpuscular volume [Entitic volume] by Auto mated count 97.3 fL 80-96 H [facility] Erythrocyte mean corpuscular hemoglobin [Entitic mass] by Automated count 32.3 pg 27-33 [facility] Erythrocyte mean corpuscular hemoglobin concentration [Mass/volume] by Automated count 33.2 g/dL 32.0-36.0 [facility] E[facility]th[facility] distribution width [Ratio] by Automated count 12.6 % 11.5-14.5 [facility] Platelets [#/volume] in Blood by Automated count 167 10*3/uL 150-400 [facility] ID Date Data Source [id number] 01/28/2021 06:43:36 AM EDT [facility] Name Value Range Interpretation Code Description Data Krystle rce(s) Supporting Document(s) Bicarbonate [Moles/volume] in Serum 18 mmol/L 22-29 L [facility] Chloride [Moles/volume] in Serum or Plasma 103 mmol/L 98-107 [facility] Creatinine [Mass/volume] in Serum or Plasma 0.73 mg/dL 0.70-1.20 [facility] Glucose [Mass/volume] in Serum or Plasma 225 mg/dL 70-140 [facility] Potassium [Moles/volume] in Serum or Plasma 3.9 mmol/L 3.4-5.1 [facility] Sodium [Moles/volume] in Serum or Plasma 139 mmol/L 136-145 [facility] Urea nitrogen [Mass/volume] in Serum or Plasma 12 mg/dL 8-23 [facility] Anion gap 3 in Serum or Plasma 18 mmol/L 8-15 H [facility] Osmolality of Serum or Plasma by calculation 295 mosm/kg 275-300 [facility] Creatinine/Urea nitrogen [Mass Ratio] in Serum or Plasma 16 [facility] Calcium [Mass/volume] in Serum or Plasma 8.9 mg/dL 8.8-10.2 [facility] Glomerular filtration rate/1.73 sq M pre dicted among non-blacks [Volume Rate/Area] in Serum or Plasma by Creatinine-based formula (MDRD) >6 0 [facility] Glomerular filtration rate/1.73 sq M pre dicted among blacks [Volume Rate/Area] in Serum or Plasma by Creatinine-based formula (MDRD) >60 [facility] ID Date Data Source [id number] 01/28/2021 06:43:36 AM [facility] Name Value Range Interpretation Code Description Data Krystle rce(s) Supporting Document(s) Phosphate [Mass/volume] in Serum or Plasma 2.7 mg/dL 2.5-4.5 [facility] ID Date Data Source [id number] 01/28/2021 06:43:36 AM [facility] Value Range Interpretation Code Description Data Krystle rce(s) Supporting Document(s) Magnesium [Mass/volume] in Serum or Plasma 2.1 mg/dL 1.6-2.4 [facility] ID Date Data Source [id number] 01/28/2021 04:11:43 AM [facility] Value Range Interpretation Code Description Data Krystle rce(s) Supporting Document(s) Glucose [Mass/volume] in Capillary blood by Glucometer 178 mg/dL 70- 140 H [facility] ID Date Data Source [id number] 01/28/2021 01:35:53 AM [facility] Value Range Interpretation Code Description Data Krystle rce(s) Supporting Document(s) Bicarbonate [Moles/volume] in Serum 18 mmol/L 22-29 L [facility] Chloride [Moles/volume] in Serum or Plasma 102 mmol/L 98-107 [facility] Creatinine [Mass/volume] in Serum or Plasma 0.74 mg/dL 0.70-1.20 [facility] Glucose [Mass/volume] in Serum or Plasma 257 mg/dL 70-140 [facility] Potassium [Moles/volume] in Serum or Plasma 3.9 mmol/L 3.4-5.1 [facility] Sodium [Moles/volume] in Serum or Plasma 137 mmol/L 136-145 [facility] Urea nitrogen [Mass/volume] in Serum or Plasma 12 mg/dL 8-23 [facility] Anion gap 3 in Serum or Plasma 17 mmol/L 8-15 H [facility] Osmolality of Serum or Plasma by calculation 293 mosm/kg 275-300 [facility] Creatinine/Urea nitrogen [Mass Ratio] in Serum or Plasma 17 [facility] Calcium [Mass/volume] in Serum or Plasma 8.9 mg/dL 8.8-10.2 [facility] Glomerular filtration rate/1.73 sq M pre dicted among non-blacks [Volume Rate/Area] in Serum or Plasma by Creatinine-based formula (MDRD) >6 0 [facility] Glomerular filtration rate/1.73 sq M pre dicted among blacks [Volume Rate/Area] in Serum or Plasma by Creatinine-based formula (MDRD) >60 [facility] ID Date Data Source [id number] 01/28/2021 12:17:38 AM EDT [facility] Name Value Range Interpretation Code Description Data Krystle rce(s) Supporting Document(s) Glucose [Mass/volume] in Capillary blood by Glucometer 270 mg/dL 70- 140 [facility] ID Date Data Source [id number] 01/27/2021 09:53:26 PM EDT [facility] CT HEAD WITHOUT CONTRAST [id number] RESU LTInterpreted by:Maxine Klein, MDPROCEDURE INFORMATION: Exam: [...] iterative reconstruction. COMPARISON: CT HEAD WITHOUT CONTRAST [id number] 01/27/2021 2:07 PM FINDINGS: Brain: There is [...] rce(s) Supporting Document(s) ID Date Data Source [id number] 01/27/2021 08:15:00 PM [facility] CT HEAD WITHOUT CONTRAST [id number] RESU LTInterpreted by:Ruy Dorman MDINDICATION: follow up [...] rce(s) Supporting Document(s) ID Date Data Source [id number] 01/27/2021 08:36:05 PM [facility] Name Value Range Interpretation Code Description Data Krystle rce(s) Supporting Document(s) Glucose [Mass/volume] in Capillary blood by Glucometer 282 mg/dL 70- 140 H [facility] ID Date Data Source [id number] 01/27/2021 06:33:27 PM [facility] Name Value Range Interpretation Code Description Data Krystle rce(s) Supporting Document(s) History and Physical [facility] YIPBQj4rZeWVHoKi05/KCRqzZLLlm5PgVLrmTFn0ZGljBROmH3XeHJX6gO9fQQQ1NOzVEoKnZfLhJRM0 lbm [file] HJI0NmHoWuUuHeBvAzHjTRH+VY1jTHw+Bq5Ic4OfeoO2aoEjLQf7MLk4CHrbQAMOPl3A ID Date Data Source [id number] 01/27/2021 04:31:33 PM EDT [facility] Name Value Range Interpretation Code Description Data Krystle rce(s) Supporting Document(s) Glucose [Mass/volume] in Capillary blood by Glucometer 310 mg/dL 70- 140 H [facility] ID Date Data Source [id number] 01/27/2021 04:06:46 PM EDT [facility] Name Value Range Interpretation Code Description Data Krystle rce(s) Supporting Document(s) Consultation [facility] TLSOFm2kIfVHLzSv69/FEMucODQap6RaBMpdDVj5ZGywSRVnM3LoODI5cX6wMXU6NYqLTjZxLnAgLCL8 lbm [file] ICAgICAgICAgICAgICAgICAgICAgICAgICAgICAgIC AgICAgICAgICAgICAgICAgICAgICAgICAgICAgICAgICAgICAgICAgICAgDQogICAgICAgICAgICAgIC AgICAgICAgICAgICAgICAgICAgICAgICAgICAgICAgICAgICAgICAgICAgICAgICAgICAgICAgICAgIC AgICAgICAgICAgICAgICAgICAgICAgICAgDQogICAg ICAgICAgICAgICAgICAgICAgICAgICAgICAgICAgICAgICAgICAgICAgICAgICAgICAgICAgICAgICAg ICAgICAgICAgICAgICAgICAgICAgICAgICAgICAgICAgICAgDQogICAgICAgICAgICAgICAgICAgICAg ICAgICAgICAgICAgICAgICAgICAgICAgICAgICAgIC AgICAgICAgICAgICAgICAgICAgICAgICAgICAgICAgICAgICAgICAgICAgICAgDQogICAgICAgICAgIC AgICAgICAgICAgICAgICAgICAgICAgICAgICAgICAgICAgICAgICAgICAgICAgICAgICAgICAgICAgIC AgICAgICAgICAgICAgICAgICAgICAgICAgICAgDQog ICAgICAgICAgICAgICAgICAgICAgICAgICAgICAgICAgICAgICAgICAgICAgICAgICAgICAgICAgICAg ICAgICAgICAgICAgICAgICAgICAgICAgICAgICAgICAgICAgICAgDQogICAgICAgICAgICAgICAgICAg ICAgICAgICAgICAgICAgICAgICAgICAgICAgICAgIC AgICAgICAgICAgICAgICAgICAgICAgICAgICAgICAgICAgICAgICAgICAgICAgICAgDQogICAgICAgIC AgICAgICAgICAgICAgICAgICAgICAgICAgICAgICAgICAgICAgICAgICAgICAgICAgICAgICAgICAgIC AgICAgICAgICAgICAgICAgICAgICAgICAgICAgICAg DQogICAgICAgICAgICAgICAgICAgICAgICAgICAgICAgICAgICAgICAgICAgICAgICAgICAgICAgICAg ICAgICAgICAgICAgICAgICAgICAgICAgICAgICAgICAgICAgICAgICAgDQogICAgICAgICAgICAgICAg ICAgICAgICAgICAgICAgICAgICAgICAgICAgICAgIC QfFUSxVJDzHIAlASLoVILvLGPjELOgLFDbDAZmHWWvKNQrHTXsTMQcDGDvIXVkWBAtRVGnWOf2P9izAC GzEFOyZE7yFYr3Ti4+JYsVTvGbEHB0zvLfdC2LHP8tr5WmLFvmCPYnp9LmMKl5ZW6QJVRbAEwoBK1TTM zwta2FRCSvLKGheRNGb1mzNgRwFDU9ABWtOjzwSE2C WHSaC3fwkwIyBJCcAOOFFShoCNKEXLghSKHUGWGyDWUzXyQpXrLuUFBhAOYzXSVUPDH5WUNqAbQjDFln RN3Js6MylLY6AVv+Ci4YAJ5dm8QbSJu4DYIbAO5jxj7TIGrAMqRdM7EobuH8OLDeJTTcTt4JGUPzWTSo kMZ0MBTvHNJZXeYrH3NlvT39XXQPGl1+DQplbmRvYm tCOvPwTXAjn6RhNDb3TU5MVMHhIUe3lSIxX72ie9NrbDGsPdpnH0CpYN0lKHcfcPkuEQAEKaSIXCW2XJ czVQKoJiFxAGLqXYqwNfVCKSpPOiVbA5Orb1KeHuY4WSQdCsEaEGgzSVDwTaH2OM28sUjwND5LOFSeZD TiTN03ZGQuAKShPn9PQq9ZGeRcMP6wpx9FQMBfONPm UibLKio1FGriSW3WfHHhB2BpdDNho0nFCaLhB3WGRAC8CKZuKr5SCAArHuSeOCBcZQntXC6aXUAqNVUH rOrulzK6MR5GMU1nntHwXA9OKmBfKr4uRe7TJjGpX0BnK8RaQJOgOBIITKvoFT9IPXqtDU3zFN9Mt3QO mWSzvM6kgn7SJXXvYJBzLjmxbn8VRgaiB2I1iXvkFT PpZPMpVEXITOxwFI1WGHCxKTI4HAXrXIPeCTTRDjAaB50gFA4YF3Sda67ySlX1OSRhSlOaVFjmWG79qL rzacXjyTHavCpkBH3HIv4+DVjfxaQtQpmMEipxMMSULnOyPPYTUkUzLFRnISFaTEUvZjH5LaLxRq5XZF CjOPZsRDSqOrWgTNUrPYXlQHwaRSLxNKL1MFS8JNUj TEIlFC7PXpFsJOUkKStgWSWyWNSgWNHyro6ASGWbZDJrKIC0RvDcNVAsPXCpDSgfUOFeKUOsCYP2HZUv FNMkVZ0PNpBbRBZaJAT9GdAmKSLrUEQcoi6TUDFuUGAaZrBdTTXyNHQeJOSqSAouRGDlQBM3TwDzDYZk DGOcXO0HVeZoWBHkUGKpJcEpKUWcRAMfwm3JOPYeTZ UcKYR9VKNhECZjRCQfZVrnRWKhODKoUgX1NXTxZJMmZY2ZOtDyMYYxOMR8SbCnQLFfFEPrjl3WMBYiGA MnCbniWbYgSPFaDXGrCBrpVOAuFLK0JZC0IIBbWUSdYB9KUgFoFUTyBgUfQPImNYAlFGKrzb9XXXTlPQ QaBQQ5HLOmDYLjPFVzOGipCJOwYLYsWUO8YJZyDGDo VL4QOzLsCXVsVmKeWyKrOEMaEXNlsa1RBUTsITYjZgU9RCDwCYCoAUWfHIrrQFEuYXVzSiz6YOJsWADn RP7APaYhPWYyNjY4HkTmCRMgUKIqkx3BRBVoDNHiCWAmASCvJAQcAYFiAHxzLYDzOHE5BgZuSJThYHJj VI9KEnGbLWQqGlD1LDagOEZrBAHedl8QWDKaVSCvLM q8NRHvHORmNNUeUEttSMNrCCD5IUgaJXOsSGEqJF7LUfIuMIKcRyOiDGzgVKEiWUEpjc5GPFWcMPKnIo ByIJUxYEItMWBsJAgrTXLeEUX1DXT0DJWsHATxRK4JQnBgPHNhPps8GUahFSFlPIXprl5WLKDmKTH8Vl S7JBQaIQVcMNYyPNhsOKDnWBMcCAVoSCDuSKGvWS4N BjZmADIlDZZyQLPwJNFsHCOvii3CDZLbVZV3Yek4HyChWDTmWZEuNUwmYCWiXMD4LKKuBHCrZJPcYT6G VjLpAITvVNTpMQupWOToYMEgnp7YHSXlGAJ6VCP0DZYbVOAqPCNmKOwiVHAkASC3ONGyUVFuFOLuLJ7K MdIsLAVyIPE4NdFkQUIaIOMlqq7KWWPtKLB9IeO3TY EtPTEqUXHyRXevRJQbBHC8CYFqRJZcFDUhTS1HPxHhRAQcASb9UsZmWLUgMGKeie5QfYEmuAorwy6HNJ uSWh3XaBzuTBKkGTnzZy9cqJF5VbBlIWREHt5TtdMpXCUuWEDGQOlhCAVrAOPdVBb3CGx1NgVsZEB5Mm R3BGMxYjdvWAXvDSXiJEm2YcM0PKAoFqK5SKh1RSB5 Ghz0HSj9OdZwD0EnWsJyYcS4OWF+VM9xEJf+Ox0Ut1UadmX9ciShFSw8XjadQQ8BBJMOI9PEXf== ID Date Data Source [id number] 01/27/2021 04:28:41 PM EDT [facility] Name Value Range Interpretation Code Description Data Krystle rce(s) Supporting Document(s) Bicarbonate [Moles/volume] in Serum 15 mmol/L 22-29 L [facility] Chloride [Moles/volume] in Serum or Plasma 96 mmol/L 98-107 L [facility] Creatinine [Mass/volume] in Serum or Plasma 0.65 mg/dL 0.70-1.20 L [facility] Glucose [Mass/volume] in Serum or Plasma 337 mg/dL 70-140 H [facility] Potassium [Moles/volume] in Serum or Plasma 4.5 mmol/L 3.4-5.1 [facility] Sodium [Moles/volume] in Serum or Plasma 134 mmol/L 136-145 L [facility] Urea nitrogen [Mass/volume] in Serum or Plasma 10 mg/dL 8-23 [facility] Anion gap 3 in Serum or Plasma 23 mmol/L 8-15 H [facility] Osmolality of Serum or Plasma by calculation 290 mosm/kg 275-300 [facility] Creatinine/Urea nitrogen [Mass Ratio] in Serum or Plasma 15 [facility] Calcium [Mass/volume] in Serum or Plasma 8.6 mg/dL 8.8-10.2 [facility] Glomerular filtration rate/1.73 sq M pre dicted among non-blacks [Volume Rate/Area] in Serum or Plasma by Creatinine-based formula (MDRD) >6 0 [facility] Glomerular filtration rate/1.73 sq M pre dicted among blacks [Volume Rate/Area] in Serum or Plasma by Creatinine-based formula (MDRD) >60 [facility] ID Date Data Source [id number] 01/27/2021 12:33:31 PM EDT [facility] XR HAND 2 VIEWS [id number] RESULTInterpr eted by:Surendra Hernandez MDINDICATION: Redness of [...] rce(s) Supporting Document(s) ID Date Data Source [id number] 01/27/2021 12:32:41 PM EDT [facility] XR CHEST FRONTAL ONLY [id number] RESULTI nterpreted by:Surendra Hernandez MDINDICATION: Status post [...] rce(s) Supporting Document(s) ID Date Data Source [id number] 01/27/2021 12:07:39 PM EDT [facility] Name Value Range Interpretation Code Description Data Krystle rce(s) Supporting Document(s) Glucose [Mass/volume] in Capillary blood by Glucometer 260 mg/dL 70- 140 H [facility] ID Date Data Source [id number] 01/27/2021 01:20:08 PM EDT [facility] Name Value Range Interpretation Code Description Data Krystle rce(s) Supporting Document(s) Color of Urine [facility] Clarity of Urine [facility] Specific gravity of Urine by Refractometry automated 1.017 1.003 -1.030 [facility] pH of Urine by Automated test strip 5.0 5.0-8.0 [facility] Protein [Mass/volume] in Urine by Automated test strip 100 mg/dL Neg ative [facility] Glucose [Mass/volume] in Urine by Automated test strip Neg ative [facility] Ketones [Mass/volume] in Urine by Automated test strip [facility] Bil[facility].total [Presence] in Urine by Automated test strip Negative [facility] Hemoglobin [Presence] in Urine by Automated test strip Neg ative A [facility] Leukocyte esterase [Presence] in Urine by Automated test strip Negative [facility] Nitrite [Presence] in Urine by Automated test strip Negati ve [facility] Leukocytes [#/area] in Urine sediment by Automated count 1 /HPF 0 -5 [facility] Erythrocytes [#/area] in Urine sediment by Automated count 0-3 [facility] Epithelial cells.squamous [#/area] in Urine sediment by Automate d count None [facility] Mucus [#/area] in Urine sediment by Microscopy low power field None [facility] Hyaline casts [#/area] in Urine sediment by Microscopy low p ower field 5 /LPF None [facility] ID Date Data Source [id number] 01/27/2021 01:51:21 PM EDT [facility] Value Range Interpretation Code Description Data Krystle rce(s) Supporting Document(s) Amphetamine [Presence] in Urine by Screen method Negative [facility] Benzodiazepines [Presence] in Urine by Screen method Negat [facility] Cannabinoids [Presence] in Urine by Screen method Negative [facility] Benzoylecgonine [Presence] in Urine by Screen method Negat [facility] Methadone [Presence] in Urine by Screen method Negative [facility] Opiates [Presence] in Urine by Screen method Negative [facility] (NOTE)Positive results are presumptive a nd unconfirmed;confirmatorytesting can be ordered at the [facility] at [phone] [facility] at [phone] within 5 days of collection. Oxycodone [Presence] in Urine by Screen method Negative [facility] Fentanyl+Norfentanyl [Presence] in Urine by Screen method Negative [facility] Service comment [facility] Results below the indicated cutoff (ng/m L), are reported as"Negative." Note: for medical purposes only; not valid for legalor employment testing. ID Date Data Source [id number] 01/27/2021 10:58:52 AM EDT [facility] Name Value Range Interpretation Code Description Data Krystle rce(s) Supporting Document(s) [facility] VZXGDe8yZtDKWvIg91/UQDsiUMNoq0QzYMbkDPp9YGdyOGEfU7OwAHZ5hU8wNWZ4FGsBUmQcUyCmSLZ7 lbm [file] ICAgICAgICAgICAgICAgICAgICAgICAgICAgICAgIC AnLMSeCQUcJAPbOGJyDHJkDIZzWSArCWDsRAHuFUBzFLJuIWOlNHLxLOWjVKVeIBQlAL3YGPDhIQRaBB AgICAgICAgICAgICAgICAgICAgICAgICAgICAgICAgICAgICAgICAgICAgICAgICAgICAgICAgICAgIC AgICAgICAgICAgICAgICAgICAgICAgICAgICAgICAg QK5JPJUeDMWxCVYvHEPrGZTiQODwRGBjRJEvQYFyEESmEPSmSKJmMUHlVTIeGHIvBTQyRLUbDRFbZZRq AJAmZPYaCOOrUTMkHUQnHUAnNOGnSEDkLQIeZHDnJLSdNAHgUIAeQMTiHO1YBYPdABSmDOUnPMKbUPQr ICAgICAgICAgICAgICAgICAgICAgICAgICAgICAgIC IgJMZfYPJkBADlBERbORAnGVDaQBLyMYHhHFNcORRbUDKtLLHyAYCgFJTeFLAuZOLeWYShKS6DOHIkLO AgICAgICAgICAgICAgICAgICAgICAgICAgICAgICAgICAgICAgICAgICAgICAgICAgICAgICAgICAgIC AgICAgICAgICAgICAgICAgICAgICAgICAgICAgICAg KNSzIM7HETKkXDNnESUpQHXvUWOkUZKhKMBqVHIvLJPlCHTwNEFaAHXqAANaSFZzYRCvHDJgZBHrGGSt WUCeNPPoPHNaCRTbKWZfSITpBHBeHNWaFORmSSVtEVKrEVXfDCKuHMCzCTSoYW9CNNFzGMWnSQKvJNGk ICAgICAgICAgICAgICAgICAgICAgICAgICAgICAgIC ClUPUmAPOgWBSeGUSfYCMqEBWmARTxFMGgVUWsHSTjHIKuZPXsMIQhVPEaWBFkWFOcNXOaRYAkIK0TBG AgICAgICAgICAgICAgICAgICAgICAgICAgICAgICAgICAgICAgICAgICAgICAgICAgICAgICAgICAgIC AgICAgICAgICAgICAgICAgICAgICAgICAgICAgICAg NIDkQFOmGO5WTMWhSIMiAWOqPIUzBQBgYLPoFRNlQLSzJRQtGSEiPMKtYWTdFHKdZRTxNMRtJYSiUBFv MKXlOMGzBQVmVUNaTIOdNSCuUBEsHPVfOUImHDRmHSTgIAUiRRSlEBOmHVNsOWZjME9ERBFmCWQdPUPo ICAgICAgICAgICAgICAgICAgICAgICAgICAgICAgIC AgICAgICAgICAgICAgICAgICAgICAgICAgICAgICAgICAgICAgICAgICAgICAgICAgICAgICAgICAgIA 3NGB97rPOfu0H7CKQiQB1yepm/Kh3RAOburnZtvEVeEI9XTyCsBQ4sey9RXlNsWE5fcz4GGLsJRtJzR9 D7sBWrQYVfJUUMFsJvE25iSRtjSh11QIrxFSTbVxYw GWu6Wi4DNtRaJ0mfRQNvUfD2SMEhBcL1JTZjYjJ2WEVzFaIgSIKkYBEiEQUwZHAAAE2WHgRqX6OrxT15 IDUNCj4+PSxvrnDqHbpZGwB2CEIev0XnXNu3YL6LRMMsTsnig4XpEobvVZQQRSnkEW7YCKY0LLY4XWGm Bk4XXRMyF258veAaZV7NBc4QUmGhJT8pnv5APkmlPX QnMbsESln5RDzmWG1SuIEeEBrTn81bxKo1lvZmjAWFUUS4nCR3ZEOkDAUnaSWoUEFEXQAjkMI4HnE2Ke ZoTjTuJZm7YsoxUC5wWJmrAH8WUEG0BQpbTTIqLEGwB1uZEaDaJIHuDGHeqUusLT9TIqVqX7StlhGpyT AzOCAwIFINCj4+LVzhsdXvGrdPDwDeEFCuj4WqEOn3 SG0HLEYoUDgzJQ0WETTyhY1nQGsfPH8QIkBqGwFmEOEJUhHeK65fpJHuLOp0G1OfEpAsHLQvNjtmXVOh PDwvTmFtZXMgWyBdDQogID4+ID4+LUsaII7EDTcqjxHeEWYqGj4NWFNsKVExAV6iVDHbARRaL7N7iQsn MQGQYsBwZ2vbeyhmUU8iZMPvL450kHbuvvZcEBH9UX YoJt3IWKZgGEK3YEPumROhKxarVLRLWLlfHN9PnFWeDVU1kY6lJSxpQLElOWPvI2yBIsXcsHhcRT92aW wgbnVsbCBdDQo+Sl5WIB5qi4ZjRGj4igXeJKiqKHGjSKwqMDJnFQFuGIJqOQP3SQG4QCLIJtEyPXBpAT FuXFlfPMVfMIFthy3NQPIiJEL9OmRrAZOvQQZeUPPb XFxjHGVoQOC4SVCzPLDuSYLpHH1SVcSdRWTtPAGlXXbnUHYbCZQmtn0QQLTpOYRfUyXoMmRdNXQxHAFt MYgiUQPlYWQqKmC7YANuCVWsFX7MSwXjYMFdCZEnNqRiCCBgEWPvos2OPMCxGCUfAwCzVFZyZBUvFEFu IBkdJIVoJJJ4TkT4XPXwRGGaTR7MUpUkDCHkNVw6Mm NfTCRhOEQtth4UQVAcCXIeMNQfLCVlDXAoLODeQIseRFMzLFNeAQUxLITsGFMjVD9CMySjGUTmQRB4Lh nuMYHpNSRplm9QAHMdYQYsYnj1HZXgYHNoCQChYDtsIISpJHEnZlD3RYCkAXSiIV5ZEnKlRUZwVXG0RA ScUFZyNCApou8TSMKdRSUvSALsMBYpXHSpQGRlSNnn XPGqSBO8JEh0LOZsLOYtUW6QDkFrPYGsELKeOYVzOTWyXVSwxh6FQBBzFQQcMGH7VEPrMPMuVUBdEDrj FJDuPCN9PFC4FCWhVTDgPT2XExJzWCNaOPC1WmCsIJHvMJIkke6UDSMcOYNmJnkpOXWsFVOmXNVvHApf IKGwQWH2GyZhCVIuBLXwNA7AByAjUDElJgivHtZwPU QwPMFiqf8HLVSnJVLzEAW9YJJrXHMjBYXlQJyrBQBnLGQ9YNU2YHOkEKTaOJ3UJlIpKZCwRCDvNJMiGH AnKWAbtl3MNAJjCBE0RAA6RZOjHCMnKDWgAUcrPKAkDDGaGbT9AQDzPPDdXL3UGtMdRCGfZTQ3WWgcAG GgWAUxwz0DGYDrDKP0EjC3AqCrBAOsTPTvAVetJZMr DKRlSbVdHWXeLBRyHG8QNlVcOAEnUNRwZCSqEWSiRZCecd7ZJYPwXVC8HqHoOHTbFFYeXGGjHVkjYSGl OGYaHfSgKEEhTSWhGS8XTmKnGEPaCVVfTmOwHXIlSYSakf4OUFQoVKY3PWIpQKRcSJQwUIFtILinDDLl LLJ2LHc9HYWpZOApQV9LMaWoUMPeTLX9GJLxQAPmWJ Yimf2RnIEisViybx1UOAdTMg5OkKhrMEWlFSasAi9kbRH2GVGqCSLGKn5GvxVsVIKyBPFGKLglRUMkED a7QBW1DLZuFuMvRHgfWbFbHLr7IWSeYTYxDiOfZwprFlC2IKsiKIWvEcF4VnW7T3Q3TeCcMLMwUXDeUk EzNmUzOWY+FG2hFZm+Jn4Wj9OhqgV0qwGfLAq9MMp9JS5CUJZOL7SJMx== ID Date Data Source [id number] 01/27/2021 10:50:01 AM EDT [facility] CT HEAD WITHOUT CONTRAST [id number] RESU LTInterpreted by:Ruy Dorman MDINDICATION: hx subarachnoid [...] rce(s) Supporting Document(s) ID Date Data Source [id number] 01/27/2021 12:40:51 PM [facility] Name Value Range Interpretation Code Description Data Krystle rce(s) Supporting Document(s) Hemoglobin A1c/Hemoglobin.total in Blood by HPLC 9.1 % 4.0-6.0 H [facility] (NOTE)<5.7% Average risk of diabetes (ADA)5.7-6.4% Increased risk of diabetes(ADA)>/= 6.5% Diagnostic for diabetes(ADA) Glucose mean value [Mass/volume] in Blood Estimated fr om glycated hemoglobin 214 mg/dL <126 [facility] ID Date Data Source [id number] 01/27/2021 09:36:29 AM [facility] Name Value Range Interpretation Code Description Data Krystle rce(s) Supporting Document(s) Leukocytes [#/volume] in Blood by Automated count 11.2 10*3/uL 4-10 [facility] Erythrocytes [#/volume] in Blood by Automated count 4.38 10*6/uL 4.6- 6.1 L [facility] Hemoglobin [Mass/volume] in Blood 14.1 g/dL 13.5-18 [facility] Hematocrit [Volume Fraction] of Blood by Automated count 41.0 % 4 1-53 [facility] Erythrocyte mean corpuscular volume [Entitic volume] by Auto mated count 93.5 fL 80-96 [facility] Erythrocyte mean corpuscular hemoglobin [Entitic mass] by Automated count 32.2 pg 27-33 [facility] Erythrocyte mean corpuscular hemoglobin concentration [Mass/volume] by Automated count 34.4 g/dL 32.0-36.0 [facility] Erythrocyte distribution width [Ratio] by Automated count 12.4 % 11.5-14.5 [facility] Platelets [#/volume] in Blood by Automated count 168 10*3/uL 150-400 [facility] Differential cell count method - Blood [facility] Neutrophils/100 leukocytes in Blood by Automated count 78 % [facility] Lymphocytes/100 leukocytes in Blood by Automated count 12 % [facility] Monocytes/100 leukocytes in Blood by Automated count 8 % [facility] Eosinophils/100 leukocytes in Blood by Automated count 1 % [facility] Basophils/100 leukocytes in Blood by Automated count 1 % [facility] Neutrophils [#/volume] in Blood by Automated count 8.89 10*3/uL 1.8-7 .0 H [facility] Lymphocytes [#/volume] in Blood by Automated count 1.29 10*3/uL 1.2-4 .0 [facility] Monocytes [#/volume] in Blood by Automated count 0.89 10*3/uL 0-0.8 H [facility] Eosinophils [#/volume] in Blood by Automated count 0.07 10*3/uL 0-0.5 [facility] Basophils [#/volume] in Blood by Automated count 0.06 10*3/uL 0-0.2 [facility] Nucleated erythrocytes/100 leukocytes [Ratio] in Blood by Automated count 0 /100{WBCs} 0-0 [facility] ID Date Data Source [id number] 01/27/2021 09:45:52 AM [facility] Value Range Interpretation Code Description Data Krystle rce(s) Supporting Document(s) Prothrombin time (PT) 13.7 s 11.6-14.0 [facility] INR in Platelet poor plasma by Coagulation assay 1.09 [facility] Routine intensity oral anticoagulation I NR is typically 2.0-3.0. Target INR must be clinically individualized. ID Date Data Source [id number] 01/27/2021 09:45:52 AM [facility] Value Range Interpretation Code Description Data Krystle rce(s) Supporting Document(s) aPTT in Platelet poor plasma by Coagulation assay 25.9 s 24.0-33. 0 [facility] ID Date Data Source [id number] 01/27/2021 09:59:10 AM [facility] Value Range Interpretation Code Description Data Krystle rce(s) Supporting Document(s) Bicarbonate [Moles/volume] in Serum 17 mmol/L 22-29 L [facility] Chloride [Moles/volume] in Serum or Plasma 100 mmol/L 98-107 [facility] Creatinine [Mass/volume] in Serum or Plasma 0.61 mg/dL 0.70-1.20 L [facility] Glucose [Mass/volume] in Serum or Plasma 279 mg/dL 70-140 H [facility] Potassium [Moles/volume] in Serum or Plasma 3.8 mmol/L 3.4-5.1 [facility] Sodium [Moles/volume] in Serum or Plasma 134 mmol/L 136-145 L [facility] Urea nitrogen [Mass/volume] in Serum or Plasma 7 mg/dL 8-23 L [facility] Anion gap 3 in Serum or Plasma 17 mmol/L 8-15 H [facility] Osmolality of Serum or Plasma by calculation 286 mosm/kg 275-300 [facility] Creatinine/Urea nitrogen [Mass Ratio] in Serum or Plasma 11 [facility] Calcium [Mass/volume] in Serum or Plasma 8.2 mg/dL 8.8-10.2 L [facility] Glomerular filtration rate/1.73 sq M pre dicted among non-blacks [Volume Rate/Area] in Serum or Plasma by Creatinine-based formula (MDRD) >6 0 [facility] Glomerular filtration rate/1.73 sq M pre dicted among blacks [Volume Rate/Area] in Serum or Plasma by Creatinine-based formula (MDRD) >60 [facility] ID Date Data Source [id number] 01/27/2021 12:02:01 PM EDT [facility] Name Value Range Interpretation Code Description Data Krystle rce(s) Supporting Document(s) Albumin [Mass/volume] in Serum or Plasma by Bromocresol green (BCG) dye binding method 4.0 g/dL 3.5-5.2 [facility] Bilirubin.total [Mass/volume] in Serum or Plasma 1.1 mg/dL <1.2 [facility] Bilirubin.direct [Mass/volume] in Serum or Plasma 0.3 mg/dL <0.3 H [facility] Alkaline phosphatase [Enzymatic activity/volume] in Serum or Plasma 72 U/L 40-129 [facility] Aspartate aminotransferase [Enzymatic activity/volume] in Serum or Plasma 18 U/L <40 [facility] Alanine aminotransferase [Enzymatic activity/volume] in Seru m or Plasma 21 U/L <41 [facility] Protein [Mass/volume] in Serum or Plasma 6.2 g/dL 6.4-8.3 L [facility] ID Date Data Source [id number] 01/27/2021 12:02:01 PM EDT [facility] Name Value Range Interpretation Code Description Data Krystle rce(s) Supporting Document(s) Cholesterol [Mass/volume] in Serum or Plasma 158 mg/dL <200 [facility] Triglyceride [Mass/volume] in Serum or Plasma 108 mg/dL <150 [facility] Cholesterol in HDL [Mass/volume] in Serum or Plasma 82 mg/dL >40 [facility] Cholesterol in LDL [Mass/volume] in Serum or Plasma by calcu lation 55 mg/dL <100 [facility] Cholesterol in VLDL [Mass/volume] in Serum or Plasma by calc ulation 22 mg/dl 16-42 [facility] Cholesterol non HDL [Mass/volume] in Serum or Plasma 76 mg/dL <130 [facility] ID Date Data Source [id number] 01/27/2021 12:02:01 PM EDT [facility] Value Range Interpretation Code Description Data Krystle rce(s) Supporting Document(s) Phosphate [Mass/volume] in Serum or Plasma 3.6 mg/dL 2.5-4.5 [facility] ID Date Data Source [id number] 01/27/2021 12:02:01 PM EDT [facility] Name Value Range Interpretation Code Description Data Krystle rce(s) Supporting Document(s) Magnesium [Mass/volume] in Serum or Plasma 1.9 mg/dL 1.6-2.4 [facility] ID Date Data Source [id number] 01/27/2021 03:59:00 AM EDT [facility] Name Value Range Interpretation Code Description Data Krystle rce(s) Supporting Document(s) SARS coronavirus 2 RNA [Presence] in Res piratory specimen by TREY with probe detection NEGATIVE [facility] This lab was ordered by [facility] a nd reported by [facility]. ID Date Data Source [id number] 11/22/2020 08:59:55 AM EDT [facility] Name Value Range Interpretation Code Description Data Krystle rce(s) Supporting Document(s) Progress Note [facility] MCRKWs1zBdNSXrTe25/MQPjwMWIgd6YlKNujLMy9VHyvQJNbV0VnKSI4dG1hEBQ7INmCHaSrUaIvRpXq lbm [file] [id number]+Ki1Ua2RewaI2foPeCEzvGSI7NZ6ONIDWP6DZVd== ID Date Data Source [id number] 09/28/2020 12:49:16 PM EDT [facility] Name Value Range Interpretation Code Description Data Krystle rce(s) Supporting Document(s) Progress Note [facility] EWEBJu4zGaBFZbXl85/DYIzfAQRgv8FjRRedTIf2YIhnLXLaG7HeGBX8oG6kMLN5DLcKXfFeAyQlUVT9 lbm [file] ZFBsBNucIad9YvEuBR7HFm5QMhX9VIT8uUAjOg6TIoFeMUkUKjAfKE0BKEj= ID Date Data Source [id number] 09/24/2020 01:54:55 PM EDT [facility] Name Value Range Interpretation Code Description Data Krystle rce(s) Supporting Document(s) Progress Note [facility] MJZFIu0lZgBHJnJn25/QGHlnFWRcp6JiPZfmIWw9UMdoLDAmC8GvTKT1sO0wTET3RBzZWbDoZnZbUABk lbm [file] YNCg== ID Date Data Source [id number] 09/15/2020 12:20:16 PM EDT [facility] Name Value Range Interpretation Code Description Data Krystle rce(s) Supporting Document(s) Progress Note [facility] RSQAQa8uOuQUCcZr69/RFKceLJKpx1AqSGpsAFi0XHxsFTJuZ4NwSDG0lP9fLDV5EPvLQwCmUdWqKORn lbm [file] AvMPDjLjE6BjMfArRbOHS+GP2dLVp+Mc4Mv9IjnxX8jxDkJTafIWG9BH6ZMODYK2UPNd== ID Date Data Source [id number] 09/15/2020 12:20:00 PM EDT [facility] Name Value Range Interpretation Code Description Data Krystle rce(s) Supporting Document(s) SARS-CoV-2 RNA 2018 nCoV Real-Time RT-PCR: NOT DETECTED [facility] This lab was ordered by [facility] and reported by [facility]. ID Date Data Source [id number] 09/16/2020 12:02:02 PM EDT [facility] Name Value Range Interpretation Code Description Data Krystle rce(s) Supporting Document(s) Specimen source [Identifier] of Unspecified specimen [facility] SARS-CoV-2 RNA 2019 nCoV Real-Time RT-PCR: NOT DETECTED [facility] Assay Performed [facility] Patients first test for condition [facility] Patient employed in healthcare setting [facility] Patient has symptoms related to condition [facility] When did you start to experience these symptoms [Date and time] [Phen X] [facility] Patient was hospitalized because of this condition [facility] patient was admitted to ICU for condition [facility] Patient resides in a congregate care setting [facility] status [facility] ID Date Data Source PLZ CHEST 2 VIEW 09/11/2020 12:00:00 AM EDT eCW1 ([facility]) Name Value Range Interpretation Code Description Data Krystle rce(s) Supporting Document(s) PLZ CHEST 2 VIEW eCW1 ([facility]) ID Date Data Source [id number] 09/05/2020 01:05:00 PM EDT [facility] Name Value Range Interpretation Code Description Data Krystle rce(s) Supporting Document(s) SARS-CoV-2 (COVID-19) RNA [Presence] in Respiratory specimen by TREY with probe detection Not Detected [facility] This lab was ordered by [facility] and reported by [facility] [employer] ID Date Data Source [id number] 08/31/2020 12:00:00 AM EDT eCW1 ([facility]) Name Value Range Interpretation Code Description Data Krystle rce(s) Supporting Document(s) Microalbumin/Creatinine [Ratio] in Urine 730.6 0.0-30.0 GABRIELLE/CREAT RATIO eCW1 ([facility]) Microalbumin/Creatinine [Mass Ratio] in Urine 40.1 CREATININE, URINE eCW1 ([facility]) Albumin/Creatinine [Mass Ratio] in Urine 293.0 MALB URINE SIEMENS eCW1 ([facility]) ID Date Data Source Basic Metabolic Profile (BMP) 08/31/2020 12:00:00 AM EDT eCW 1 ([facility]) Name Value Range Interpretation Code Description Data Krystle rce(s) Supporting Document(s) 250 70-100 GLUCOSE, FASTING eCW1 ([facility]) > 60.0 >49 GLOMERULAR FILTRATION RATE eCW 1 ([facility]) 0.61 0.70-1.30 CREATININE FOR GFR eCW1 ([facility]) 7 7-18 BLOOD UREA NITROGEN eCW1 ([facility]) 4.3 3.5-5.1 POTASSIUM SERUM eCW1 ([facility]) 133 136-145 SODIUM LEVEL eCW1 ([facility]) 102 98-107 CHLORIDE LEVEL eCW1 ([facility]) 25 21-32 CARBON DIOXIDE LEVEL eCW1 ([facility]) 8.5 8.8-10.2 CALCIUM LEVEL eCW1 ([facility]) ID Date Data Source [id number] 08/31/2020 12:00:00 AM EDT eCW1 ([facility]) Name Value Range Interpretation Code Description Data Krystle rce(s) Supporting Document(s) Hemoglobin A1c/Hemoglobin.total in Blood 7.5 HEMOGLOBIN A1c eCW1 ([facility]) ID Date Data Source [id number] 07/17/2020 12:00:00 AM EST [facility] Name Value Range Interpretation Code Description Data Krystle rce(s) Supporting Document(s) SARS-CoV-2 (COVID-19) RNA [Presence] in Respiratory specimen by TREY with probe detection Positive for 2019-nCoV [facility] This lab was [facility] by [facility] and reported by [facility] [employer] ID Date Data Source [id number] 07/12/2020 11:28:32 AM EST [facility] Name Value Range Interpretation Code Description Data Krystle rce(s) Supporting Document(s) Progress Note [facility] BNFZIx8qCrWFVeHt58/USGdpQCZjo7XeLVrfDGa7SZdqEBWmW2ZhSVO6vM6gZHN7LSgGMhKpRsBxVTY4 [facility] [file] [id number]= ID Date Data Source [id number] 06/14/2020 12:00:00 PM EST [facility] Name Value Range Interpretation Code Description Data Krystle rce(s) Supporting Document(s) SARS coronavirus 2 RNA [facility] This lab was ordered by [facility] and reported by [facility]. ID Date Data Source [id number] 05/23/2020 11:21:18 AM EST [facility] Name Value Range Interpretation Code Description Data Krystle rce(s) Supporting Document(s) Progress Note [facility] JLJDTd4lUaILQwCj80/DTYtzIVHaf5RzTNlcFFn9NOlvKHDeX9AcPAE7uB0uUNU6UUdXDqZrYcKeCtX8 lbm [file] BARIATRIC PHYSICIAN+Jm0BPAMhRAx9J7G0PPJuNAq5U5CPN1UBCXNnMX rvQDbtNOWiAYf3T9D7QQEiT0WKM8Auiqqwle8+QZ9XW19QMZBzNQm4A1P4sUMbN7O2gWkNyED4WX2IAC 6DeXm0eRKfxZ7+KU8PR3RKKcMdKMx4W2O7sGPiF2A5yRfYdWL5RN6DEP0UgTXkAXHvuoFmRs2kP7RPOJ qUNwBCVAM2WI2TaYCmSZ6SoXRDV5AybFWjGs0cJCie iAJacC5mNd7iAJawOU1OLnTPWAvMKTU2RI8EyDYyCI8XtNOHK7BvwSLkWy5wQUqxeTFdxq5+NN7AOYRy Ye7JQp1+XEvmstEvAstALlS7GLUes6JxWJw4MD5UZQ7yuEhuZDC9Ab2EsAI8kCCuR4nZUW9DeWJxU70m fRUgYKRnJo7FCcH2mkIbrF6COH71tKLis4O5NIQcW6 bzZGtsg65xUHubQWmXDY1hXVQRQGlbGCvjXPX7JdDuponyROHgWc8MKlJsTMq1aG7maUK9YBT6OmtltB SzCMgvNhKyVeExGiQ6pZnmzmz3EWudYW8lVBtiolyqSGAkVvc+CNujRBQaWVHuBvwUKRWiwI9oawE2fi CqUCcypABcIh4wx6f0NrxnAd4jQs4iBVp4AsHzWpMc CDUkJh7dhV60OArbxxGyJb2RYiKrTZN7Z9JgPjqRIBJ+YOmrXPtzmCk6qACeLQCcUh8KSCNkQYDuICYa ICAgICAgICAgICAgICAgICAgICAgICAgICAgICAgICAgICAgICAgICAgICAgICAgICAgICAgICAgICAg ICAgICAgICAgICAgICAgICAgICAgICAgICAgICAgIA 0KICAgICAgICAgICAgICAgICAgICAgICAgICAgICAgICAgICAgICAgICAgICAgICAgICAgICAgICAgIC NhVIMbAAOsSPMaDZWzVVCxXHQjFSJxVDKtQRRbTTPfXCGgAESyISPfGV1FWDBoLOJzFQZuXLSoIWXbWQ AgICAgICAgICAgICAgICAgICAgICAgICAgICAgICAg PVWpRUFcKRSrAONvJTFxYFHeHSPaLZRdWGOnZIFxDQPhENGnLLOcNHYkUKWhRENcEQWuEW6YYYHyKAQs ICAgICAgICAgICAgICAgICAgICAgICAgICAgICAgICAgICAgICAgICAgICAgICAgICAgICAgICAgICAg ICAgICAgICAgICAgICAgICAgICAgICAgICAgICAgIC RaPT1UWXQrYZXmPDFxKFEzVGTrBVNfFFTcQTAzIIWjWZMoXNDuBVAaIUZcCJCqBYRxENWnNNJfJYJvWY FmFMIlHFSpBJDnJJXjXEMgFMDmAASlOBHeNSHbWLYcJJUhRZIdGJPtTSKhVE1LOXUnGTInGSSrJCEdVU AgICAgICAgICAgICAgICAgICAgICAgICAgICAgICAg XXTzVHYxPYLkAYTlHYBjLPBzORUaQDBhREVoCIQiZCKrHKVcNMYyORIoLNKaMCMbXBSuLKBeND7LUYCm ICAgICAgICAgICAgICAgICAgICAgICAgICAgICAgICAgICAgICAgICAgICAgICAgICAgICAgICAgICAg ICAgICAgICAgICAgICAgICAgICAgICAgICAgICAgIC RcZFKsZN9OCCNnPYAtKJOdSQGdCATeFDLxLZZoAJAvQIYvPMKuZPYeEOOtDBFiYEAsYWOsPXKmUFWhOK MgGOCyLWQzBJAqYHIzAFOePZUnSDErQQEpPMEpDIFiXGVtVLQqNCQmCZWrEUYgMS6ETKHhEHLhCZNoPE AgICAgICAgICAgICAgICAgICAgICAgICAgICAgICAg ZCOpHWXhHUYgCLLqVBDvZGKnQTPsBRQuOYEtLPFwKROzDARmYDUySVIxLNGdELSsSALrDBYoQRZfEC2U ICAgICAgICAgICAgICAgICAgICAgICAgICAgICAgICAgICAgICAgICAgICAgICAgICAgICAgICAgICAg ICAgICAgICAgICAgICAgICAgICAgICAgICAgICAgIC LdJYIxSLIlLD0XHA05lZVlq3S6RGZnSJ7jtoe/Jx5MTRfpoyKgoPDhQC7JVfWtJS2lky6RCzByBK0lab 0ZTOcILpPrU9B5qEQcKBOzOJXOXpSgI36rOCxfAf77MBjbYMFcSgErRKr1As6CFmYxC1lgWNFyZfX2ZZ DjVoI5JWEfBrM4AGFvLhVlUKOqMUDzERZjLQWMSSF3 OPPpKaFjNWmnPL2Je5EtyVX7GLn+Re6YCL4ts3TcNIqoTFGvYU0jvl1ZJSwCTnVtC9KjbhR3YRW5TBCm Hg2TLKLsHAIovJVtKiJxODGLGtTjK2VslP14NECCFh8+PObkyvUqPmpOSpN0CYQnj6KkTAr8EW8JYBUz QDe3wJQaUWYrV2Jhn1JeWj56XGCtXkevCZcsyPVosZ DSMNXfsYDrM4ewLG7QJQW4VHUyWslgXgEpKGCiQLhrFUFKEIyCWvKeX9Oul8SbSfS3ATDzXoHxITouTV WeFqN6DD67iYhbED9RXLWtSUTzWZ49LLI1RUPuIl7RQx6IGuSpDE6byu3WXclqKGDvDwvMZae1RQuuIA 8VrAEmK8SoxCCri9vHPrNiJ3XYTLTsBEMcCo9TAPPp YyFjDATfIZibSI2cERUfXQJVuXuyjbS8YZ0JGH9tavPeVE1VXeIjAa0xAp4QEgHkW1JeL6VwKBFpHDJH VTduKA4JXNlrQA9yAZ4Vg9ABzFOihR9aoj7AUWUiIVDeVvaopd5VVaqaP7H7fKgfIPWeBdXiWHMMJMue VD3PAARkBGK7HTAdMPHvRYSWZpGfE35sKI7UX6Jqs1 0wLcK4VRQaBhUlLIfnQJ10gRbeinRflAIqdLflDX5TPl1+DQplbmRvYmoNCnhyZWYNCjAgMzgNCjAwMD ThHNLpJSDuUrM4WxRnUf5HHXZaXSGlZUQoDdOdTZSnDRQaANinYVBeKYI9VVJ1EWZzUHUuAJ4XPdGlUD AuKnpnRzIdHEAmOHFazm9BYLTjDINgJNY4WoBrRGIy DOKdVJvlAZIsQMHbEpz2FRYhZOQxCC6JGlXpZZJyAOE0WIYxZXInVALlup0JQTNdGYQxDaF0QZXpUJEy ZLBqZWnlRCXhJJE9WnX9ZRYnMZLkCY3LCaRdVNTgOCr1RUWeMSIbSDXgzb0UEKJrEXQsRIr1KKYbXZSb PGLkQUuyHEGuRZFuGIhzLQPjGYQrTY7PPdDmMUEvZO CfCwobJUCpQAKcph0XDNGwAMLoUMH7WXOiJABvZCOnLNvgMZTbDYB4Frs4WFSqRBNuXS7QUlQnORCbFG v1YwWfXCClBNTffa9SFTEoYWAwWtu6CvSlPDLsIWUjMDkkQWQjDVP6WdOrMFWgLWKwXG6USnXtWZUjJK n3JCsvGUVkLKKznv7YTGLqPVDkFBQ0QvKwWTAmISLq SXbxPGDiFZZwTCXfIDNvXDHySU9PGjNpXEBdApHoKYTyMCBdYSYhfs5SKOJrGDNtADItZEHwSNInUTZj FBgjWDTiRNJaILUsMKDjQRYlKL6AWpNaSNZfMuOfOSEzVIGyEYZhjy9QHOVvANHiQyD4NHTaNKIsEKDn AMjbJAIsWZWvJhT1NWGkHXZzVP2GRnXdLGZlRiC0OT TqNVYrJWAxkf8PLCQeNZMuScdiFKPgBYLzODVuONbsUVOvREKfSND2XWBdHUOrFN8NItUwLFUqFfWkIF gnOHRsGBAvcx8UWXOkELFrXYJuFOAcKIItNXOcPYxeDLZqNBC2BaK3MIGqTJQyJC2JAnKlOOQwUcLuTD zkZXTqFUYned4KVJElGDPhRJibQPMhWBIzVZFySLzl JBBoVIU2QwZvJXLaQRNuFT7ZVtIuOSUvVdndKvBrRWZaJQOdhf3SOHSgNYCmZiBsSOKqPTErWBQtAEa1 sjHomQAnVCc0KJ6BZ9NkqcMcDztYNl1Ae942JSZ1BPPsJo9SU5ceHt3iPEDeUDZSGg4RNXi6KTLbXEDq E6NyNzHdP6R7Lrm7EOR9PWJ2XHw1TBEpBGV+IDxlMD BcExEbElIvJMYuDNVgUYGrXuLlLQF3AqubIiR1SZ9dVTMNWj7+BEqpjPJawAvlCBHTIwG3IxR6QClmMZ VPRg0K Procedure Social History Code Duration Value Status Description Data Source(s ) Alcohol intake 01/27/2021 12:00:00 AM EDT Current drinker of al cohol (finding) completed Current drinker of alcohol (finding) [facility] Tobacco use and exposure 01/27/2021 12:00:00 AM EDT Never used co mpleted Never used [facility] Cigarette pack-years 01/27/2021 12:00:00 AM EDT UNK completed [facility] Cigarettes smoked current (pack per day) - Reported 01/28/20 12:00:00 AM EDT UNK completed [facility] Smoking 01/27/2021 12:00:00 AM EDT Former smoker completed Former smoker [facility] Smoking 12/27/2020 12:00:00 AM EDT Former Smoker completed Former Smoker eCW1 ([facility]) Smoking 12/27/2020 12:00:00 AM EDT Former Smoker completed Former Smoker eCW1 ([facility]) Smoking 12/27/2020 12:00:00 AM EDT Former Smoker completed Former Smoker eCW1 ([facility]) Smoking 12/27/2020 12:00:00 AM EDT Former Smoker completed Former Smoker eCW1 ([facility]) Smoking 12/27/2020 12:00:00 AM EDT Former Smoker completed Former Smoker eCW1 ([facility]) Smoking 12/14/2020 12:00:00 AM EDT Former Smoker completed Former Smoker eCW1 ([facility]) Smoking 12/14/2020 12:00:00 AM EDT Former Smoker completed Former Smoker eCW1 ([facility]) Smoking 12/14/2020 12:00:00 AM EDT Former Smoker completed Former Smoker eCW1 ([facility]) Smoking 12/14/2020 12:00:00 AM EDT Former Smoker completed Former Smoker eCW1 ([facility]) Alcohol intake 11/22/2020 12:00:00 AM EDT Current non-d alcides of alcohol (finding) completed Current non-drinker of alcohol (finding) [facility] Alcohol intake 09/28/2020 12:00:00 AM EDT Current non-d alcides of alcohol (finding) completed Current non-drinker of alcohol (finding) [facility] Alcohol intake 09/24/2020 12:00:00 AM EDT Current non-d alcides of alcohol (finding) completed Current non-drinker of alcohol (finding) [facility] Smoking 09/11/2020 12:00:00 AM EDT Former Smoker completed Former Smoker eCW1 ([facility]) Smoking 09/11/2020 12:00:00 AM EDT Former Smoker completed Former Smoker eCW1 ([facility]) Smoking 09/11/2020 12:00:00 AM EDT Former Smoker completed Former Smoker eCW1 ([facility]) Smoking 09/11/2020 12:00:00 AM EDT Former Smoker completed Former Smoker eCW1 ([facility]) Smoking 09/11/2020 12:00:00 AM EDT Former Smoker completed Former Smoker eCW1 ([facility]) Smoking 09/11/2020 12:00:00 AM EDT Former Smoker completed Former Smoker eCW1 ([facility]) Smoking 08/21/2020 12:00:00 AM EST Former Smoker completed Former Smoker eCW1 ([facility]) Smoking 08/21/2020 12:00:00 AM EST Former Smoker completed Former Smoker eCW1 ([facility]) Smoking 08/02/2020 12:00:00 AM EST Former Smoker completed Former Smoker eCW1 ([facility]) Alcohol intake 07/12/2020 12:00:00 AM EST Current non-d alcides of alcohol (finding) completed Current non-drinker of alcohol (finding) [facility] Vital Signs ID Date Data Source UNK Name Value Range Interpretation Code Description Data Source(s) Body weight 171.2 [lb_av] 171.2 [lb_av] eCW1 ([facility]) Body height 69 [in_i] 69 [in_i] eCW1 ([facility]) Body mass index (BMI) [Ratio] 25.28 kg/m2 25.28 kg/m2 eCW1 ([facility]) Heart rate 107 /min 107 /min eCW1 ([facility]) Respiratory rate 18 /min 18 /min eCW1 ([facility]) Body temperature 98.1 [degF] 98.1 [degF] eCW1 ( [facility]) Systolic blood pressure 137 mm[Hg] 137 mm[Hg] e CW1 ([facility]) Diastolic blood pressure 73 mm[Hg] 73 mm[Hg] eCW1 ([facility]) Body weight 169.4 [lb_av] 169.4 [lb_av] eCW1 ([facility]) Body height 69 [in_i] 69 [in_i] eCW1 ([facility]) Body mass index (BMI) [Ratio] 25.01 kg/m2 25.01 kg/m2 eCW1 ([facility]) Heart rate 95 /min 95 /min eCW1 ([facility]) Respiratory rate 18 /min 18 /min eCW1 ([facility]) Body temperature 96.4 [degF] 96.4 [degF] eCW1 ( [facility]) Systolic blood pressure 142 mm[Hg] 142 mm[Hg] e CW1 ([facility]) Diastolic blood pressure 84 mm[Hg] 84 mm[Hg] eCW1 ([facility]) Body weight 171 [lb_av] 171 [lb_av] eCW1 ([facility]) Body height 69 [in_i] 69 [in_i] eCW1 ([facility]) Body mass index (BMI) [Ratio] 25.25 kg/m2 25.25 kg/m2 eCW1 ([facility]) Heart rate 66 /min 66 /min eCW1 ([facility]) Respiratory rate 18 /min 18 /min eCW1 ([facility]) Body temperature 97.4 [degF] 97.4 [degF] eCW1 ( [facility]) Systolic blood pressure 138 mm[Hg] 138 mm[Hg] e CW1 ([facility]) Diastolic blood pressure 84 mm[Hg] 84 mm[Hg] eCW1 ([facility]) Systolic blood pressure 138 mm[Hg] 138 mm[Hg] M EDENT ([facility]) Diastolic blood pressure 86 mm[Hg] 86 mm[Hg] MEDENT ([facility]) Body weight 77.566 kg 77.566 kg [facility] ([facility]) Body height 71 [in_i] 71 [in_i] MEDENT ([facility]) 5'11" [place] body weight 172 [lb_av] 172 [lb_av] MEDEN T ([facility]) Body mass index (BMI) [Ratio] 23.8 kg/m2 23.8 k g/m2 [facility] ([facility]) Body weight 171.00 [lb_av] 171.00 [lb_av] MEDEN T ([facility]) ID Date Data Source [id number] 02/26/2021 07:57:59 AM [facility] Name Value Range Interpretation Code Description Data Source(s) TRANSFER FROM [facility] ID Date Data Source [id number] 11/22/2020 09:05:16 AM [facility] Name Value Range Interpretation Code Description Data Source(s) PREFERRED NAME Juana Porter [facility] ID Date Data Source [id number] 11/22/2020 09:05:38 AM [facility] Name Value Range Interpretation Code Description Data Source(s) PREFERRED NAME Juana Porter [facility] PREFERRED NAME Juana Porter [facility] ID Date Data Source [id number] 11/08/2020 09:19:58 AM EDT [facility] Name Value Range Interpretation Code Description Data Source(s) PREFERRED NAME Juana Porter [facility] ID Date Data Source [id number] 10/15/2020 04:29:43 PM EDT [facility] Name Value Range Interpretation Code Description Data Source(s) PREFERRED NAME Juana Porter [facility] ID Date Data Source [id number] 10/15/2020 09:09:13 AM EDT [facility] Name Value Range Interpretation Code Description Data Source(s) PREFERRED NAME Juana Porter [facility] ID Date Data Source [id number] 09/24/2020 01:50:24 PM EDT [facility] Name Value Range Interpretation Code Description Data Source(s) PREFERRED NAME Juana Porter [facility] ID Date Data Source [id number] 09/28/2020 12:49:16 PM EDT [facility] Name Value Range Interpretation Code Description Data Source(s) PREFERRED NAME Juana Porter [facility] PREFERRED NAME Juana Porter [facility] ID Date Data Source [id number] 09/24/2020 01:54:55 PM EDT [facility] Name Value Range Interpretation Code Description Data Source(s) PREFERRED NAME Juana Porter [facility] ID Date Data Source [id number] 09/20/2020 09:59:43 AM EDT [facility] Name Value Range Interpretation Code Description Data Source(s) PREFERRED NAME Juana Porter [facility] ID Date Data Source [id number] 09/16/2020 12:02:12 PM EDT [facility] Name Value Range Interpretation Code Description Data Source(s) PREFERRED NAME Juana Porter [facility] ID Date Data Source [id number] 06/04/2020 01:47:04 PM EST [facility] Name Value Range Interpretation Code Description Data Source(s) WEIGHT RECORDED 168 lb 168 lb [facility] Body height Measured [address] [facility] Patient Treatment Plan of Care Planned Activity Planned Date Details Description Data Source (s) Insulin Glargine 100 UNT/ML Injectable Solution 02/01/2021 09:00:00 PM [facility] ondansetron (ZOFRAN) injection 4 mg 02/01/2021 09:59:54 AM [facility] Insulin Glargine 100 UNT/ML Injectable Solution 02/01/2021 12:00:00 AM [facility] Sodium Chloride 1000 MG Oral Tablet 01/31/2021 12:00:00 AM [facility] lacosamide 100 MG Oral Tablet 01/31/2021 12:00:00 AM [facility] Hydralazine Hydrochloride 20 MG/ML Injectable Solution 01/29/2021 11:51:47 AM [facility] labetalol (TRANDATE) injection 10 mg 01/29/2021 11:51:36 AM [facility] Magnesium Hydroxide 80 MG/ML Oral Suspension 01/27/2021 10:00:00 PM [facility] Glucose 0.417 MG/MG Oral Gel 01/27/2021 11:21:27 AM [facility] dextrose 50 % IV solution 25 mL 01/27/2021 11:21:26 AM [facility] Glucagon 1 MG Injection 01/27/2021 11:21:26 AM [facility] Albuterol 0.83 MG/ML Inhalant Solution 01/27/2021 11:19:58 AM [facility] sennosides, [facility] 35.2 MG/ML Oral Solution 01/27/2021 11:19:26 AM [facility] ondansetron (ZOFRAN) 4 MG/2ML injection 01/27/2021 10:35:05 AM [facility] Psyllium 51.7 % 12/26/2020 12:00:00 AM [facility] eCW1 ([facility]) gabapentin 300 MG Oral Capsule 12/26/2020 12:00:00 AM ED eC1 ([facility]) Psyllium 51.7 % 12/26/2020 12:00:00 AM EDT eCW1 ([facility]) gabapentin 300 MG Oral Capsule 12/26/2020 12:00:00 AM EDT eCW1 ([facility]) Compazine 25mg 10/19/2020 12:00:00 AM EDT eCW1 ([facility]) Compazine 25mg 10/19/2020 12:00:00 AM EDT eCW1 ([facility]) Compazine 25mg 10/19/2020 12:00:00 AM EDT eCW1 ([facility]) Compazine 25mg 10/19/2020 12:00:00 AM EDT eCW1 ([facility]) Compazine 25mg 10/19/2020 12:00:00 AM EDT eCW1 ([facility]) Compazine 25mg 10/19/2020 12:00:00 AM EDT eCW1 ([facility]) Tamsulosin hydrochloride 0.4 MG Oral Capsule 09/28/2020 12:00:00 AM EDT eCW1 ([facility]) Tamsulosin hydrochloride 0.4 MG Oral Capsule 09/28/2020 12:00:00 AM EDT eCW1 ([facility]) Tamsulosin hydrochloride 0.4 MG Oral Capsule 09/28/2020 12:00:00 AM EDT eCW1 ([facility]) Tamsulosin hydrochloride 0.4 MG Oral Capsule 09/28/2020 12:00:00 AM EDT eCW1 ([facility]) Acetaminophen 325 MG / Hydrocodone Bitartrate 5 MG Ora l Tablet 09/19/2020 12:00:00 AM [facility] Cepacol Sore Throat 10-2.1 MG 07/02/2020 12:00:00 AM EST eCW1 ([facility]) Cepacol Sore Throat 10-2.1 MG 07/02/2020 12:00:00 AM EST eCW1 ([facility]) Prochlorperazine 10 MG Oral Tablet 06/28/2020 12:00:00 AM [facility] Lidocaine Pain Relief 4 % External Patch 05/28/2020 12:00:00 AM [facility] Diclofenac Sodium 0.01 MG/MG Topical Gel 05/26/2020 12:00:00 AM [facility] Compazine 25mg 05/22/2020 12:00:00 AM EST eCW1 ([facility]) Compazine 25mg 05/22/2020 12:00:00 AM EST eCW1 ([facility]) Compazine 25mg 05/22/2020 12:00:00 AM EST eCW1 ([facility]) HM Lidocaine Patch 4 % 05/22/2020 12:00:00 AM EST eCW1 ([facility]) Compazine 25mg 05/22/2020 12:00:00 AM EST eCW1 ([facility]) HM Lidocaine Patch 4 % 05/22/2020 12:00:00 AM EST eCW1 ([facility]) Compazine 25mg 05/22/2020 12:00:00 AM EST eCW1 ([facility]) Compazine 25mg 05/22/2020 12:00:00 AM EST eCW1 ([facility]) HM Lidocaine Patch 4 % 05/22/2020 12:00:00 AM EST eCW1 ([facility]) Compazine 25mg 05/22/2020 12:00:00 AM EST eCW1 ([facility]) HM Lidocaine Patch 4 % 05/22/2020 12:00:00 AM EST eCW1 ([facility]) Compazine 25mg 05/22/2020 12:00:00 AM EST eCW1 ([facility]) HM Lidocaine Patch 4 % 05/22/2020 12:00:00 AM EST eCW1 ([facility]) HM Lidocaine Patch 4 % 05/22/2020 12:00:00 AM EST eCW1 ([facility]) Compazine 25mg 05/22/2020 12:00:00 AM EST eCW1 ([facility]) HM Lidocaine Patch 4 % 05/22/2020 12:00:00 AM EST eCW1 ([facility]) Compazine 25mg 05/22/2020 12:00:00 AM EST eCW1 ([facility]) HM Lidocaine Patch 4 % 05/22/2020 12:00:00 AM EST eCW1 ([facility]) Compazine 25mg 05/22/2020 12:00:00 AM EST eCW1 ([facility]) Compazine 25mg 05/22/2020 12:00:00 AM EST eCW1 ([facility]) HM Lidocaine Patch 4 % 05/22/2020 12:00:00 AM EST eCW1 ([facility]) Compazine 25mg 05/22/2020 12:00:00 AM EST eCW1 ([facility]) HM Lidocaine Patch 4 % 05/22/2020 12:00:00 AM EST eCW1 ([facility]) HM Lidocaine Patch 4 % 05/22/2020 12:00:00 AM EST eCW1 ([facility]) Compazine 25mg 05/22/2020 12:00:00 AM EST eCW1 ([facility]) Acetaminophen 325 MG / Hydrocodone Bitartrate 10 MG Or al Tablet 05/07/2020 12:00:00 AM EST [facility] celecoxib 200 MG Oral Capsule 10/11/2018 12:00:00 AM [facility] Insulin Glargine 100 UNT/ML Injectable Solution [facility] Aspirin 81 MG Oral Tablet [facility] Cisapride [facility]
== END 2021-04-25 22:29 | disposition left against medical advice (07) ==
LOC: M ED 22:16
DX: Z53.21 Procedure and treatment not carried out due to patient leaving prior to being seen by health care provider (principal)

== ENCOUNTER → 2021-06-28 | Outpatient (CLI) | payer MEDICAID ==
[~2021-06-28] MED LIST changes: -LISI-898 PO; +LISI5TAB11 PO
[2021-06-28 11:27] LABS: APPEARANCE, URINE CLEAR (CLEAR); BACTERIA, URINE AUTO NEGATIVE (NEGATIVE); BILIRUBIN, URINE AUTO NEGATIVE (NEGATIVE); BLOOD, URINE BLOOD 1+ (NEGATIVE); COLOR, URINE YELLOW (YELLOW); GLUCOSE, URINE (UA) AUTO 3+ mg/dL (NEGATIVE); KETONE, URINE AUTO NEGATIVE (NEGATIVE); LEUKOCYTE ESTERASE, URINE AUTO NEGATIVE (NEGATIVE); NITRITE, URINE AUTO NEGATIVE (NEGATIVE); PROTEIN, URINE AUTO 2+ mg/dL (NEGATIVE); RBC, URINE AUTO 1 /HPF (0-3); SPECIFIC GRAVITY URINE AUTO 1.018 (1.002-1.035); SQUAMOUS EPITHELIAL CELL UR AU 0 /HPF (0-6); UROBILINOGEN, URINE AUTO 0.2 mg/dL (0.0-2.0); WBC, URINE AUTO 1 /HPF (0-3)
[2021-06-28 11:35] LABS: BASO % 0.7 % (0.0-1.0); EOS # 0.1 10^3/uL (0.0-0.5); EOS % 1.6 % (0.0-3.0); HEMATOCRIT 46.5 % (42.0-52.0); HEMOGLOBIN 16.1 g/dl (13.5-17.5); LYMPH # 2.1 10^3/uL (1.5-5.0); LYMPH % 38.8 % (24.0-44.0); MEAN CORPUSCULAR HEMOGLOBIN 31.4 pg (27.0-33.0); MEAN CORPUSCULAR HGB CONC 34.6 g/dl (32.0-36.5); MEAN CORPUSCULAR VOLUME 90.8 fl (80.0-96.0); MONO # 0.7 10^3/uL (0.0-0.8); MONO % 11.8 % (2.0-8.0); NEUTROPHILS # 2.6 10^3/uL (1.5-8.5); NEUTROPHILS % 46.9 % (36.0-66.0); PLATELET COUNT, AUTOMATED 178 10^3/uL (150-450); RED BLOOD COUNT 5.12 10^6/uL (4.30-6.10); WHITE BLOOD COUNT 5.5 10^3/uL (4.0-10.0)
[2021-06-28 11:53] LABS: ALBUMIN 3.5 GM/DL (3.2-5.2); ALT/SGPT 38 U/L (12-78); BILIRUBIN,DIRECT 0.2 MG/DL (0.0-0.2); BILIRUBIN,TOTAL 0.3 MG/DL (0.2-1.0); BLOOD UREA NITROGEN 8 MG/DL (7-18); CALCIUM LEVEL 8.9 MG/DL (8.8-10.2); CARBON DIOXIDE LEVEL 24 MEQ/L (21-32); CHLORIDE LEVEL 101 MEQ/L (98-107); CREATININE FOR GFR 0.75 MG/DL (0.70-1.30); GLOMERULAR FILTRATION RATE > 60.0 (>49); GLUCOSE, FASTING 274 MG/DL (70-100); POTASSIUM SERUM 3.6 MEQ/L (3.5-5.1); SODIUM LEVEL 134 MEQ/L (136-145); TOTAL PROTEIN 6.6 GM/DL (6.4-8.2); URIC ACID 4.6 MG/DL (3.5-7.2)
== END ==
LOC: M LAB 10:04
PROVIDERS: ATTEND Internal Medicine Nephrology
DX: K74.69 Other cirrhosis of liver (principal); N18.2 Chronic kidney disease, stage 2 (mild); E11.22 Type 2 diabetes mellitus with diabetic chronic kidney disease

== ENCOUNTER 2021-07-16 11:54 | Emergency (ER) | payer MEDICAID ==
[~2021-07-16] VITALS: Ht 180.3 cm; Wt 77.3 kg
[2021-07-16 12:03] VITALS: BP 113/78
== END 2021-07-16 12:45 | disposition left against medical advice (07) ==
LOC: M ED 11:54
DX: M54.9 Dorsalgia, unspecified (principal); R10.9 Unspecified abdominal pain; Z53.9 Procedure and treatment not carried out, unspecified reason; E11.9 Type 2 diabetes mellitus without complications; I10 Essential (primary) hypertension; J44.9 Chronic obstructive pulmonary disease, unspecified; Z86.73 Personal history of transient ischemic attack (TIA), and cerebral infarction without residual deficits; K57.90 Diverticulosis of intestine, part unspecified, without perforation or abscess without bleeding; K74.60 Unspecified cirrhosis of liver; Z79.899 Other long term (current) drug therapy; Z79.4 Long term (current) use of insulin; Z91.89 Other specified personal risk factors, not elsewhere classified; Z88.8 Allergy status to other drugs, medicaments and biological substances

== ENCOUNTER 2021-07-16 18:52 | Emergency (ER) | payer MEDICAID, SELFPAY | END 2021-07-16 20:36 | disposition left against medical advice (07) | LOC: M ED 18:52 → EDBD 18:52 → EDSEX 18:52 → M ED 20:36 | DX: Z53.21 Procedure and treatment not carried out due to patient leaving prior to being seen by health care provider (principal) ==

== ENCOUNTER 2021-07-16 20:48 | Emergency (ER) | payer SELFPAY ==
[2021-07-17 09:29] VITALS: BP 120/86
== END 2021-07-17 09:32 | disposition home or self-care (01) ==
LOC: M ED 20:48
DX: F10.129 Alcohol abuse with intoxication, unspecified (principal); I10 Essential (primary) hypertension; J44.9 Chronic obstructive pulmonary disease, unspecified; M54.9 Dorsalgia, unspecified; N40.0 Benign prostatic hyperplasia without lower urinary tract symptoms; K74.60 Unspecified cirrhosis of liver; Z79.4 Long term (current) use of insulin; Z79.899 Other long term (current) drug therapy; Z91.89 Other specified personal risk factors, not elsewhere classified; Z88.8 Allergy status to other drugs, medicaments and biological substances

== ENCOUNTER 2021-10-10 02:02 | Emergency (ER) | payer MEDICAID ==
[~2021-10-10 02:02] MED LIST changes: +INSU100V2 SC; +POLY510P14 PO; +SIME80CH6 PO
== END 2021-10-10 02:20 | disposition left against medical advice (07) ==
LOC: EDBD 02:02 → M ED 02:02
DX: Z53.21 Procedure and treatment not carried out due to patient leaving prior to being seen by health care provider (principal)

== ENCOUNTER 2021-10-10 17:22 | Emergency (ER) | payer MEDICAID, SELFPAY ==
[~2021-10-10] VITALS: Ht 180.3 cm; Wt 79.5 kg
[2021-10-10 17:33] VITALS: BP 175/103
== END 2021-10-10 18:30 | disposition left against medical advice (07) ==
LOC: M ED 17:22
DX: Z53.21 Procedure and treatment not carried out due to patient leaving prior to being seen by health care provider (principal)

== ENCOUNTER → 2021-10-28 | Outpatient (REF) | payer MEDICAID | LOC: M SFHCPLAZ 13:59 | PROVIDERS: ATTEND Family Medicine | DX: Z53.20 Procedure and treatment not carried out because of patient's decision for unspecified reasons (principal) ==

== ENCOUNTER → 2021-11-15 | Outpatient (CLI) | payer MEDICAID | LOC: M PAIN 10:30 | PROVIDERS: ATTEND Nurse Practitioner Family | DX: M79.10 Myalgia, unspecified site (principal); J44.9 Chronic obstructive pulmonary disease, unspecified; E11.9 Type 2 diabetes mellitus without complications; B18.2 Chronic viral hepatitis C; F32.A Depression, unspecified; I10 Essential (primary) hypertension; N40.0 Benign prostatic hyperplasia without lower urinary tract symptoms; F10.10 Alcohol abuse, uncomplicated; Z91.51 Personal history of suicidal behavior; M72.0 Palmar fascial fibromatosis [Dupuytren]; Z87.891 Personal history of nicotine dependence; Z79.4 Long term (current) use of insulin; Z79.891 Long term (current) use of opiate analgesic; Z79.82 Long term (current) use of aspirin; Z79.899 Other long term (current) drug therapy; Z88.8 Allergy status to other drugs, medicaments and biological substances; Z91.048 Other nonmedicinal substance allergy status ==

== ENCOUNTER 2021-12-18 00:32 | Emergency (ER) | payer MEDICAID ==
[~2021-12-18] VITALS: Ht 180.3 cm; Wt 74.3 kg
[2021-12-18] MEDS ORDERED: ANEXSIA, NORCO 7.5MG/325MG TABLET(HYDROCODONE/APAP) PO ONE (01:45)
[2021-12-18] MEDS ORDERED: HYDR-4517 PO (05:17)
[2021-12-18 05:39] VITALS: BP 132/68
== END 2021-12-18 05:40 | disposition home or self-care (01) ==
LOC: M ED 00:32
DX: Z76.0 Encounter for issue of repeat prescription (principal); M54.9 Dorsalgia, unspecified; F10.10 Alcohol abuse, uncomplicated; F17.200 Nicotine dependence, unspecified, uncomplicated; E11.9 Type 2 diabetes mellitus without complications; Z79.4 Long term (current) use of insulin; Z79.84 Long term (current) use of oral hypoglycemic drugs; Z79.899 Other long term (current) drug therapy; Z88.8 Allergy status to other drugs, medicaments and biological substances; Z91.040 Latex allergy status; Z91.89 Other specified personal risk factors, not elsewhere classified

== ENCOUNTER → 2022-01-29 | Outpatient (CLI) | payer MEDICAID ==
[~2022-01-29] MED LIST changes: +HYDR-4517 PO
[2022-01-29 10:39] LABS: ALT/SGPT 27 U/L (12-78); BILIRUBIN,TOTAL 0.6 MG/DL (0.2-1.0); BLOOD UREA NITROGEN 9 MG/DL (7-18); CARBON DIOXIDE LEVEL 29 MEQ/L (21-32); CHLORIDE LEVEL 103 MEQ/L (98-107); CHOLESTEROL LEVEL 207 MG/DL (<200); GLOMERULAR FILTRATION RATE > 60.0 (>49); GLUCOSE, FASTING 276 MG/DL (70-100); HDL CHOLESTEROL 66 MG/DL (>40); POTASSIUM SERUM 4.3 MEQ/L (3.5-5.1); SODIUM LEVEL 136 MEQ/L (136-145); TRIGLYCERIDES LEVEL 139 MG/DL (<150)
[2022-01-29 10:40] LABS: ALBUMIN 3.2 GM/DL (3.2-5.2); CHOLESTEROL RISK RATIO 3.136 (<5); LDL CHOLESTEROL 113 MG/DL (<100); NON-HDL-C 141 MG/DL; TOTAL PROTEIN 6.4 GM/DL (6.4-8.2)
== END ==
LOC: M LAB 08:27
PROVIDERS: ATTEND Student in an Organized Health Care Education/Training Program
DX: E11.43 Type 2 diabetes mellitus with diabetic autonomic (poly)neuropathy (principal)

== ENCOUNTER 2022-02-07 13:20 | Emergency (ER) | payer MEDICAID, SELFPAY ==
[~2022-02-07] VITALS: Ht 180.3 cm; Wt 77.3 kg
[2022-02-07] MEDS ORDERED: HYDROMORPHONE HCL 0.5 MG/ 0.5 ML SYRINGE (J1170 PER 1) IV PRN (14:50)
[2022-02-07] MEDS ORDERED: NS 1,000 ML IV ONE (14:50)
[2022-02-07 15:37] LABS: BASO % 0.6 % (0.0-1.0); EOS # 0.1 10^3/uL (0.0-0.5); EOS % 1.6 % (0.0-3.0); HEMATOCRIT 43.5 % (42.0-52.0); HEMOGLOBIN 15.7 g/dl (13.5-17.5); LYMPH # 2.5 10^3/uL (1.5-5.0); MEAN CORPUSCULAR HEMOGLOBIN 32.6 pg (27.0-33.0); MEAN CORPUSCULAR HGB CONC 36.1 g/dl (32.0-36.5); MEAN CORPUSCULAR VOLUME 90.2 fl (80.0-96.0); MONO # 0.6 10^3/uL (0.0-0.8); NEUTROPHILS # 3.6 10^3/uL (1.5-8.5); NEUTROPHILS % 52.5 % (36.0-66.0); PLATELET COUNT, AUTOMATED 209 10^3/uL (150-450); RED BLOOD COUNT 4.82 10^6/uL (4.30-6.10); WHITE BLOOD COUNT 6.9 10^3/uL (4.0-10.0)
[2022-02-07 15:48] LABS: INR 0.91; PARTIAL THROMBOPLASTIN TIME 28.5 SECONDS (25.9-37.0); PROTHROMBIN TIME 12.7 SECONDS (12.7-14.5)
[2022-02-07 16:04] LABS: BLOOD UREA NITROGEN 7 MG/DL (7-18); CALCIUM LEVEL 8.5 MG/DL (8.8-10.2); CARBON DIOXIDE LEVEL 20 MEQ/L (21-32); CHLORIDE LEVEL 102 MEQ/L (98-107); CREATININE FOR GFR 0.74 MG/DL (0.70-1.30); GLOMERULAR FILTRATION RATE > 60.0 (>49); GLUCOSE, FASTING 360 MG/DL (70-100); POTASSIUM SERUM 3.7 MEQ/L (3.5-5.1); SODIUM LEVEL 134 MEQ/L (136-145)
[2022-02-07] MEDS ORDERED: NORCO, ANEXSIA 5/325MG TABLET (HYDROcodone/ACETAMINOPHEN) PO ONE (16:45)
[2022-02-07 16:50] LABS: ERYTHROCYTE SEDIMENTATION RATE 5 mm/hr (0-20)
[2022-02-07] MEDS ORDERED: CEPHALEXIN 500 MG CAP PO ONE (20:10)
[2022-02-07] MEDS ORDERED: CEPH500C PO (20:17)
[2022-02-07 20:41] VITALS: BP 133/93
== END 2022-02-07 20:58 | disposition home or self-care (01) ==
LOC: M ED 13:20
DX: E11.621 Type 2 diabetes mellitus with foot ulcer (principal); E11.40 Type 2 diabetes mellitus with diabetic neuropathy, unspecified; M79.673 Pain in unspecified foot; I45.19 Other right bundle-branch block; Z87.891 Personal history of nicotine dependence; Z79.4 Long term (current) use of insulin; Z79.899 Other long term (current) drug therapy; Z88.8 Allergy status to other drugs, medicaments and biological substances; Z91.040 Latex allergy status; Z91.89 Other specified personal risk factors, not elsewhere classified
CPT/HCPCS: 73630; 80048; 83605; 85025; 85610; 85652; 85730; 86140; 93005; 96361; 96374; 99284; J1170

== ENCOUNTER 2022-03-05 22:46 | Emergency (ER) | payer MEDICAID, OTHER ==
[~2022-03-05] VITALS: Ht 180.3 cm; Wt 72.7 kg
[~2022-03-05 22:46] MED LIST changes: +CEPH500C PO
[2022-03-06 02:34] VITALS: BP 160/95
[2022-03-06] MEDS ORDERED: FINA5TAB2 PO (02:45)
[2022-03-06] MEDS ORDERED: PERCOCET 5MG/325MG TAB PO ONE (03:00)
== END 2022-03-06 03:36 | disposition home or self-care (01) ==
LOC: M ED 22:46 → EDBD 22:46 → M ED 03-06 03:36
DX: S92.155A Nondisplaced avulsion fracture (chip fracture) of left talus, initial encounter for closed fracture (principal); M85.872 Other specified disorders of bone density and structure, left ankle and foot; M61.462 Other calcification of muscle, left lower leg; W19.XXXA Unspecified fall, initial encounter; E11.9 Type 2 diabetes mellitus without complications; I10 Essential (primary) hypertension; J44.9 Chronic obstructive pulmonary disease, unspecified; M51.9 Unspecified thoracic, thoracolumbar and lumbosacral intervertebral disc disorder; F32.9 Major depressive disorder, single episode, unspecified; F43.20 Adjustment disorder, unspecified; F10.10 Alcohol abuse, uncomplicated; Z87.891 Personal history of nicotine dependence; Z79.4 Long term (current) use of insulin; Z79.899 Other long term (current) drug therapy; Z91.89 Other specified personal risk factors, not elsewhere classified; Z88.8 Allergy status to other drugs, medicaments and biological substances; Z91.040 Latex allergy status

== ENCOUNTER 2022-03-11 02:26 | Emergency (ER) | payer OTHER ==
[~2022-03-11 02:26] MED LIST changes: +FINA5TAB2 PO
[2022-03-12] MEDS ORDERED: HYDR-4517 PO (17:44)
[2022-03-12] MEDS ORDERED: KETO10TAB PO (17:44)
== END 2022-03-11 04:51 | disposition left against medical advice (07) ==
LOC: M ED 02:26
DX: Z53.21 Procedure and treatment not carried out due to patient leaving prior to being seen by health care provider (principal)

== ENCOUNTER 2022-03-12 07:59 | Emergency (ER) | payer OTHER, MEDICAID ==
[~2022-03-12] VITALS: Ht 180.3 cm; Wt 75.0 kg
[2022-03-12] MEDS ORDERED: PERCOCET 5MG/325MG TAB PO ONE ×2 (10:00→12:50)
[2022-03-12 11:18] LABS: HEMATOCRIT 42.4 % (42.0-52.0); HEMOGLOBIN 14.9 g/dl (13.5-17.5); MEAN CORPUSCULAR HEMOGLOBIN 32.3 pg (27.0-33.0); MEAN CORPUSCULAR HGB CONC 35.1 g/dl (32.0-36.5); PLATELET COUNT, AUTOMATED 238 10^3/uL (150-450); RED BLOOD COUNT 4.61 10^6/uL (4.30-6.10); WHITE BLOOD COUNT 7.7 10^3/uL (4.0-10.0)
[2022-03-12 11:50] LABS: RSV AMPLIFICATION NEGATIVE (NEGATIVE)
[2022-03-12 12:02] LABS: ACETAMINOPHEN LEVEL 9.6 UG/ML (10.0-30.0); ALBUMIN 3.4 GM/DL (3.2-5.2); ALT/SGPT 25 U/L (12-78); BILIRUBIN,DIRECT 0.1 MG/DL (0.0-0.2); BILIRUBIN,TOTAL 0.3 MG/DL (0.2-1.0); BLOOD UREA NITROGEN 8 MG/DL (7-18); CALCIUM LEVEL 8.7 MG/DL (8.8-10.2); CARBON DIOXIDE LEVEL 21 MEQ/L (21-32); CHLORIDE LEVEL 103 MEQ/L (98-107); CREATININE FOR GFR 0.68 MG/DL (0.70-1.30); ETHYL ALCOHOL (ETHANOL) 0.137 % (0.000-0.010); GLOMERULAR FILTRATION RATE > 60.0 (>49); GLUCOSE, FASTING 254 MG/DL (70-100); POTASSIUM SERUM 4.1 MEQ/L (3.5-5.1); SALICYLATE LEVEL < 1.7 MG/DL (5.0-30.0); SODIUM LEVEL 135 MEQ/L (136-145); THYROID STIMULATING HORMONE 0.405 uIU/ML (0.358-3.740); TOTAL PROTEIN 6.6 GM/DL (6.4-8.2)
[2022-03-12 12:19] LABS: AMPHETAMINES LEVEL URINE NEGATIVE (NEGATIVE); BARBITURATES URINE NEGATIVE (NEGATIVE); BENZODIAZEPINES URINE NEGATIVE (NEGATIVE); CANNABINOIDS URINE NEGATIVE (NEGATIVE); COCAINE METABOLITE URINE NEGATIVE (NEGATIVE); METHADONE URINE NEGATIVE (NEGATIVE); OPIATES URINE NEGATIVE (NEGATIVE); PHENCYCLIDINE URINE NEGATIVE (NEGATIVE)
[2022-03-12] MEDS ORDERED: KETOROLAC 30 MG/ML 1ML VIAL IM ONE (12:50)
[2022-03-12] MEDS ORDERED: KETO10TAB PO (17:44)
[2022-03-12] MEDS ORDERED: HYDR-4517 PO (17:44)
[2022-03-12 18:24] VITALS: BP 150/100
== END 2022-03-12 19:00 | disposition home or self-care (01) ==
LOC: EDBD 07:59 → M ED 07:59
DX: F32.9 Major depressive disorder, single episode, unspecified (principal); S92.102A Unspecified fracture of left talus, initial encounter for closed fracture; E11.9 Type 2 diabetes mellitus without complications; I10 Essential (primary) hypertension; J44.9 Chronic obstructive pulmonary disease, unspecified; N40.0 Benign prostatic hyperplasia without lower urinary tract symptoms; Z87.891 Personal history of nicotine dependence; Z79.4 Long term (current) use of insulin; Z79.899 Other long term (current) drug therapy; Z88.8 Allergy status to other drugs, medicaments and biological substances; Z91.040 Latex allergy status; Z91.89 Other specified personal risk factors, not elsewhere classified
CPT/HCPCS: 73610; 73630; 73700; 80048; 80076; 80143; 80307; 82077; 84443; 85027; 87631; 96372; 99284; J1885

== ENCOUNTER 2022-04-02 17:17 | Emergency (ER) | payer MEDICAID, OTHER ==
[~2022-04-02] VITALS: Ht 180.3 cm; Wt 77.3 kg
[2022-04-02] MEDS ORDERED: MORPHINE 4 MG/ML 1ML VIAL/SYRINGE IV ONE (19:10)
[2022-04-02 19:44] LABS: BASO % 0.5 % (0.0-1.0); EOS % 0.3 % (0.0-3.0); HEMATOCRIT 43.3 % (42.0-52.0); HEMOGLOBIN 15.3 g/dl (13.5-17.5); LYMPH % 13.5 % (24.0-44.0); MEAN CORPUSCULAR HEMOGLOBIN 32.3 pg (27.0-33.0); MEAN CORPUSCULAR HGB CONC 35.3 g/dl (32.0-36.5); MEAN CORPUSCULAR VOLUME 91.5 fl (80.0-96.0); MONO # 0.7 10^3/uL (0.0-0.8); MONO % 9.2 % (2.0-8.0); NEUTROPHILS # 5.9 10^3/uL (1.5-8.5); NEUTROPHILS % 76.2 % (36.0-66.0); PLATELET COUNT, AUTOMATED 187 10^3/uL (150-450); RED BLOOD COUNT 4.73 10^6/uL (4.30-6.10); WHITE BLOOD COUNT 7.7 10^3/uL (4.0-10.0)
[2022-04-02 20:22] LABS: ALBUMIN 3.4 GM/DL (3.2-5.2); ALT/SGPT 24 U/L (12-78); BILIRUBIN,DIRECT 0.2 MG/DL (0.0-0.2); BILIRUBIN,TOTAL 0.6 MG/DL (0.2-1.0); BLOOD UREA NITROGEN 5 MG/DL (7-18); CALCIUM LEVEL 8.9 MG/DL (8.8-10.2); CARBON DIOXIDE LEVEL 22 MEQ/L (21-32); CHLORIDE LEVEL 99 MEQ/L (98-107); CREATININE FOR GFR 0.73 MG/DL (0.70-1.30); GLOMERULAR FILTRATION RATE > 60.0 (>49); GLUCOSE, FASTING 274 MG/DL (70-100); LIPASE 73 U/L (73-393); SODIUM LEVEL 134 MEQ/L (136-145); TOTAL PROTEIN 6.5 GM/DL (6.4-8.2)
[2022-04-02] MEDS ORDERED: ISOVUE-370 76% 100ML VIAL As Ordered ONE (20:52)
[2022-04-02] MEDS ORDERED: KETOROLAC 30 MG/ML 1ML VIAL IV ONE (22:00)
[2022-04-02] MEDS ORDERED: MIRALAX *UNIT DOSE* 17GM PACKET PO ONE (22:20)
[2022-04-02] MEDS ORDERED: DOCUSATE SODIUM 100MG CAPSULE PO ONE (22:20)
[2022-04-02] MEDS ORDERED: COLA100C5 PO (22:59)
[2022-04-02] MEDS ORDERED: FLEET ENEMA PR ONE (23:00)
[2022-04-02 23:21] VITALS: BP 135/79
== END 2022-04-02 23:23 | disposition home or self-care (01) ==
LOC: M ED 17:17
DX: K59.00 Constipation, unspecified (principal); M79.671 Pain in right foot; E11.9 Type 2 diabetes mellitus without complications; I10 Essential (primary) hypertension; J44.9 Chronic obstructive pulmonary disease, unspecified; Z86.73 Personal history of transient ischemic attack (TIA), and cerebral infarction without residual deficits; F43.20 Adjustment disorder, unspecified; K31.84 Gastroparesis; Z87.891 Personal history of nicotine dependence; Z79.4 Long term (current) use of insulin; Z79.899 Other long term (current) drug therapy; Z88.8 Allergy status to other drugs, medicaments and biological substances; Z91.89 Other specified personal risk factors, not elsewhere classified; Z91.040 Latex allergy status
CPT/HCPCS: 73610; 73630; 74177; 80048; 80076; 81000; 81015; 83690; 85025; 93041; 96374; 96375; 99284; J1885; J2270; Q9967

== ENCOUNTER 2022-06-17 04:53 | Emergency (ER) | payer MEDICAID, SELFPAY ==
[~2022-06-17] VITALS: Ht 180.3 cm; Wt 72.7 kg
[~2022-06-17 04:53] MED LIST changes: +COLA100C5 PO
[2022-06-17 05:00] VITALS: BP 131/85
[2022-06-17] MEDS ORDERED: LIPI10TA PO (05:21)
[2022-06-17] MEDS ORDERED: ADV500INH INH (05:21)
[2022-06-17] MEDS ORDERED: FAMO40TA3 PO (05:21)
[2022-06-17] MEDS ORDERED: NORT10CA2 PO (05:21)
[2022-06-17] MEDS ORDERED: ASPI81CH33 PO (05:21)
[2022-06-17] MEDS ORDERED: CYMB1CAP5 PO (05:21)
[2022-06-17] MEDS ORDERED: CYCL-707 PO (05:21)
[2022-06-17] MEDS ORDERED: PROC10TA5 PO (05:21)
[2022-06-17] MEDS ORDERED: DICL3GEL2 TOP (05:21)
[2022-06-17] MEDS ORDERED: BACL1TAB8 PO (05:21)
== END 2022-06-17 06:52 | disposition left against medical advice (07) ==
LOC: M ED 04:53 → EDBD 04:53 → M ED 06:52
DX: Z53.21 Procedure and treatment not carried out due to patient leaving prior to being seen by health care provider (principal)

== ENCOUNTER 2022-07-15 20:17 | Emergency (ER) | payer MEDICAID ==
[~2022-07-15] VITALS: Ht 180.3 cm; Wt 75.0 kg
[~2022-07-15 20:17] MED LIST changes: +ASPI81CH33 PO; +BACL1TAB8 PO; +CYMB1CAP5 PO; +DICL3GEL2 TOP; +FAMO40TA3 PO; +NORT10CA2 PO; +PROC10TA5 PO
[2022-07-15 20:49] LABS: BASO # 0.1 10^3/uL (0.0-0.2); BASO % 0.7 % (0.0-1.0); EOS # 0.1 10^3/uL (0.0-0.5); EOS % 1.3 % (0.0-3.0); HEMATOCRIT 44.3 % (42.0-52.0); HEMOGLOBIN 15.9 g/dl (13.5-17.5); LYMPH # 2.8 10^3/uL (1.5-5.0); LYMPH % 34.5 % (24.0-44.0); MEAN CORPUSCULAR HEMOGLOBIN 32.6 pg (27.0-33.0); MEAN CORPUSCULAR HGB CONC 35.9 g/dl (32.0-36.5); MONO # 0.7 10^3/uL (0.0-0.8); MONO % 8.6 % (2.0-8.0); NEUTROPHILS # 4.5 10^3/uL (1.5-8.5); NEUTROPHILS % 54.5 % (36.0-66.0); PLATELET COUNT, AUTOMATED 211 10^3/uL (150-450); RED BLOOD COUNT 4.87 10^6/uL (4.30-6.10); WHITE BLOOD COUNT 8.2 10^3/uL (4.0-10.0)
[2022-07-15] MEDS ORDERED: MORPHINE 4 MG/ML 1ML VIAL IV ONE (20:55)
[2022-07-15 21:20] LABS: BLOOD UREA NITROGEN 5 MG/DL (9-23); CALCIUM LEVEL 8.5 MG/DL (8.3-10.6); CARBON DIOXIDE LEVEL 21 MMOL/L (20-31); CHLORIDE LEVEL 98 MMOL/L (98-107); CREATININE FOR GFR 0.55 MG/DL (0.70-1.30); GLOMERULAR FILTRATION RATE > 60.0 (>49); GLUCOSE, FASTING 313 MG/DL (74-106); POTASSIUM SERUM 3.9 MMOL/L (3.5-5.1); SODIUM LEVEL 134 MMOL/L (136-145)
[2022-07-15 21:28] VITALS: BP 142/96
[2022-07-15 22:05] LABS: APPEARANCE, URINE MANUAL CLEAR (CLEAR)
[2022-07-15 22:06] LABS: COLOR, URINE MANUAL LT YELLOW (YELLOW); SPECIFIC GRAVITY,URINE MANUAL 1.005 (1.002-1.035)
[2022-07-15 22:07] LABS: BILIRUBIN, URINE MANUAL NEGATIVE (NEGATIVE); BLOOD URINE MANUAL TRACE (NEGATIVE); GLUCOSE, URINE (UA) MANUAL 4+(1000 MG/DL) mg/dL (NEGATIVE); KETONE, URINE MANUAL NEGATIVE (NEGATIVE); LEUKOCYTE ESTERASE, URINE MAN NEGATIVE (NEGATIVE); NITRITE, URINE MANUAL NEGATIVE (NEGATIVE); PROTEIN, URINE MANUAL 1+ mg/dL (NEGATIVE); UROBILINOGEN, URINE MANUAL NORMAL (NORMAL)
[2022-07-15 22:15] LABS: AMORPHOUS SEDIMENT, URINE SMALL AMOUNT (NEGATIVE); BACTERIA, URINE NONE SEEN; HYALINE CAST, URINE NONE SEEN /lpf (0-1); SQUAMOUS EPITHELIAL CELL URINE SMALL AMOUNT /hpf (SMALL AMT); WBC, URINE 0-1 /hpf (0-3)
== END 2022-07-15 22:39 | disposition left against medical advice (07) ==
LOC: EDBD 20:17 → M ED 20:17
DX: R29.6 Repeated falls (principal); Z53.9 Procedure and treatment not carried out, unspecified reason; R00.0 Tachycardia, unspecified; M51.36 Other intervertebral disc degeneration, lumbar region; Z86.73 Personal history of transient ischemic attack (TIA), and cerebral infarction without residual deficits; J44.9 Chronic obstructive pulmonary disease, unspecified; E11.9 Type 2 diabetes mellitus without complications; I50.9 Heart failure, unspecified; K21.9 Gastro-esophageal reflux disease without esophagitis; B19.20 Unspecified viral hepatitis C without hepatic coma; Z88.8 Allergy status to other drugs, medicaments and biological substances; Z91.048 Other nonmedicinal substance allergy status; Z91.040 Latex allergy status; Z79.4 Long term (current) use of insulin; Z79.899 Other long term (current) drug therapy; Z79.82 Long term (current) use of aspirin
CPT/HCPCS: 71101; 72110; 80048; 81000; 85025; 93005; 93041; 94760; 96374; 99284; J2270

== ENCOUNTER 2022-07-19 00:56 | Emergency (ER) | payer MEDICAID ==
[2022-07-19 01:11] VITALS: BP 128/84
== END 2022-07-19 03:04 | disposition left against medical advice (07) ==
LOC: EDBD 00:56 → M ED 00:56
DX: Z53.21 Procedure and treatment not carried out due to patient leaving prior to being seen by health care provider (principal)